=== PATIENT | female | born 1995 | race Caucasian/White ===

== ENCOUNTER → 2020-07-22 16:38 | Outpatient (CLI) | payer MEDICAID, SELFPAY ==
[2020-07-22 17:51] LABS: Absolute Neutrophil Count 6.4 X10^3/uL (2.0-7.7); Basophil# 0.05 X10^3/uL; Basophil% 0.5 % (0-1); Eosinophil# 0.07 X10^3/uL; Eosinophils% 0.8 % (0-5); Hematocrit 40.5 % (37-47); Hemoglobin 13.1 g/dL (12.0-15.0); Lymphocyte % 22.7 % (19-41); Mean Corp Hgb Conc 32.3 g/dL (32-36); Mean Corpuscular Hgb 28.9 pg (27.0-32.0); Mean Corpuscular Volume 89.4 fL (81-99); Mean Platelet Vol. 9.7 fl (6.2-12.0); Monocyte# 0.64 X10^3/uL; Monocyte% 6.9 % (0-10); NRBC Flagged by Analyzer 0 % (0-5); Neutrophil # 6.36 X10^3/uL (2.7-7.7); Neutrophil % 68.8 % (47-70); Platelet Count 240 K/mm3 (150-450); RBC Distribution Width CV 14.2 % (11.6-14.6); RBC Distribution Width SD 45.8 fl (35.1-43.9); Red Blood Count 4.53 M/mm3 (4.2-5.4); White Blood Count 9.3 K/mm3 (4.4-11.0)
[2020-07-23 09:13] LABS: HIV - WCH Non-Reactive (Nonreactive); Hepatitis B Surface Antigen Non-Reactive (Nonreactive); Hepatitis C Antibody Non-Reactive (Nonreactive); Rubella IgG Reactive (Nonreactive)
[2020-07-25 02:39] LABS: Prenatal RPR NONREACTIVE (NONREACTIVE)
[2020-07-25 18:27] LABS: HPV Reflexed? NOT INDICATED
[2020-07-25 20:07] LABS: Chlamydia By Nucleic Acid AMP Negative (Negative)
[2020-07-25 22:44] LABS: Gonococcus By Nucleic Acid AMP Negative (Negative)
== END ==
PROVIDERS: Visit Provider Obstetrics & Gynecology
DX: Z34.81 Encounter for supervision of other normal pregnancy, first trimester (principal)
CPT/HCPCS: 36415; 85025; 86703; 86762; 86803; 87077; 87086; 87088; 87186; 87340; 87491; 87591; 88175; G0145

== ENCOUNTER → 2020-11-11 10:27 | Outpatient (CLI) | payer MEDICAID, SELFPAY ==
[2020-11-11 11:32] LABS: Hematocrit 35.4 % (37-47); Hemoglobin 11.4 g/dL (12.0-15.0); Mean Corp Hgb Conc 32.2 g/dL (32-36); Mean Corpuscular Hgb 29.4 pg (27.0-32.0); Mean Corpuscular Volume 91.2 fL (81-99); Mean Platelet Vol. 10.1 fl (6.2-12.0); Platelet Count 233 K/mm3 (150-450); RBC Distribution Width CV 14.6 % (11.6-14.6); RBC Distribution Width SD 48.1 fl (35.1-43.9); Red Blood Count 3.88 M/mm3 (4.2-5.4); White Blood Count 5.6 K/mm3 (4.4-11.0)
[2020-11-11 11:39] LABS: Glucose Challenge Gest 1H 50g 104 mg/dL (70-140)
== END ==
PROVIDERS: Visit Provider Obstetrics & Gynecology
DX: Z34.82 Encounter for supervision of other normal pregnancy, second trimester (principal)
CPT/HCPCS: 36415; 82950; 85027

== ENCOUNTER → 2020-12-31 09:23 | Outpatient (CLI) | payer MEDICAID, SELFPAY ==
[2020-12-31 09:26] LABS: Red Blood Cells-Urine 0 SEEN /hpf (0-5); White Blood Cells 0 SEEN /hpf (0-5)
[2020-12-31 11:11] LABS: Hematocrit 33.8 % (37-47); Hemoglobin 10.5 g/dL (12.0-15.0); Mean Corp Hgb Conc 31.1 g/dL (32-36); Mean Corpuscular Hgb 26.6 pg (27.0-32.0); Mean Corpuscular Volume 85.8 fL (81-99); Mean Platelet Vol. 11.1 fl (6.2-12.0); Platelet Count 164 K/mm3 (150-450); RBC Distribution Width CV 14.4 % (11.6-14.6); RBC Distribution Width SD 44.8 fl (35.1-43.9); Red Blood Count 3.94 M/mm3 (4.2-5.4); White Blood Count 6.7 K/mm3 (4.4-11.0)
[2020-12-31 11:22] LABS: ALB/GLOB Ratio 0.7 RATIO (0.9-2.4); AST(SGOT) 16 U/L (15-37); Alanine Aminotransfer ALT/SGPT 13 U/L (13-56); Albumin, Serum 2.5 g/dL (3.2-5.0); Alkaline Phosphatase 98 U/L (45-117); Anion Gap 8 (5-15); BUN 7 mg/dL (7-18); BUN/Creat Ratio 14.1 RATIO (10-20); Calcium,Total 8.5 mg/dL (8.5-10.1); Chloride 108 mmol/L (98-107); EST Glomerular Filtration Rate 163 mL/min (>60); Est Glom Filt Rate - Afr Amer 197 mL/min (>60); Globulin 3.8 g/dL (2.2-4.2); Glucose 98 mg/dL (74-106); LDH 181 U/L (84-246); Potassium 3.5 mmol/L (3.5-5.1); Protein, Total 6.3 g/dL (6.4-8.2); Protein, Urine (Random) 12.2 mg/dL (<11.9); Protein:Creat Ratio 134 mg/g CRE (0-200); Sodium Level 140 mmol/L (136-145)
[2020-12-31 11:26] LABS: Color, Urine Yellow (Yellow); Glucose, Dipstick Normal (Normal); Ketone-Dipstick Negative (Negative); Leukocyte Esterase-Dipstick Negative /ul (Negative); Nitrite-Dipstick Negative (Negative); Occult Blood-Urine Negative /ul (Negative); Protein-Dipstick Negative (Negative); Urine Bilirubin Dipstick Negative (Negative); Urine Clarity Clear (Clear); Urine Urobilinogen Normal (Normal)
[2020-12-31 11:31] LABS: Bacteria 1+ /hpf (None Seen); Mucous, Urine RARE /hpf (<or=2+); Squamous Epithelial Cells - UA 0-5 SEEN /hpf (5-10)
== END ==
PROVIDERS: Visit Provider Obstetrics & Gynecology
DX: L29.9 Pruritus, unspecified (principal)
CPT/HCPCS: 36415; 80053; 81001; 82570; 83615; 84156; 85027

== ENCOUNTER → 2021-03-18 13:38 | Outpatient (CLI) | payer MEDICAID, SELFPAY ==
[2021-03-18 18:05] LABS: T4 Free Direct 1.05 ng/dL (0.76-1.46); Thyroid Stim Hormone (TSH) 0.85 uIU/mL (0.358-3.74)
== END ==
PROVIDERS: Visit Provider Obstetrics & Gynecology
DX: R68.82 Decreased libido (principal)
CPT/HCPCS: 84439; 84443

== ENCOUNTER → 2025-01-25 | Outpatient (CLI) | payer BC, SELFPAY ==
--- NOTE | 2025-01-25 09:52 | MRI_ITS ---
PROCEDURE: BREAST BILATERAL W/O AND W 01/25/2025 REASON FOR EXAM: BREAST CANCER Recent diagnosis of 3 left breast cancers at the 1 o'clock, 3 o'clock and 11 o'clock positions. Areolar inversion. Breast firmness. TECHNIQUE: Bilateral breast MRI using a dedicated bilateral breast coil before and following intravenous contrast. Images reviewed with subtraction and DynaCAD. CONTRAST: 15 mL of IV Clariscan COMPARISON: Mammogram dated 01/10/2025 and limited left breast ultrasound dated 01/10/2025 FINDINGS: TISSUE DENSITY: The breast tissue is heterogeneously dense, which may obscure small masses. Background Parenchymal Enhancement: Mild RIGHT Breast: No suspicious mass or non-mass enhancement. LEFT Breast: There are multiple abnormal enhancing masses noted throughout the left breast in different quadrants. There appear to be 9 masses, most of which are somewhat confluent and appear to be contiguous. The largest confluence of masses cover an area measuring approximately 5 cm. Masses do not appear to involve the dermis or chest wall. Other Findings: A 5 mm enhancing mass is seen in the upper-outer quadrant of the left breast far posteriorly, approximately 8 cm from the nipple. This appears to represent an abnormal lymph node. The visualized portions of the thoracic and abdominal viscera are unremarkable. MRI/Breast Bilateral W/O and W IMPRESSION: OVERALL FINAL ASSESSMENT BI-RADS 6: KNOWN BIOPSY-PROVEN MALIGNANCY. RECOMMENDATION: Medical oncology consultation is recommended. Surgical consult ation and radiation oncology consultation is also recommended. Yearly screening mammography of the right breast is recommended. Reading Location: [id number]
== END | disposition home or self-care (01) ==
PROVIDERS: PCP Physician Assistant Medical; Referring Provider Surgery; Visit Provider Surgery
DX: C50.912 Malignant neoplasm of unspecified site of left female breast (principal)
CPT/HCPCS: 77049; A9575; A4216; C8908

== ENCOUNTER → 2025-01-31 | Outpatient (CLI) | payer BC, SELFPAY ==
--- NOTE | 2025-01-31 10:01 | US_ITS ---
PROCEDURE: BREAST LIMITED UNILATERAL 01/31/2025 REASON FOR EXAM: F, Age 29 y/o , LEFT BREAST CANCER, ABN BREAST MRI COMPARISON: MRI 01/25/2025. TECHNIQUE: Targeted left axillary/breast ultrasound was performed. FINDINGS: Follow-up examination performed for the left axillary lymph node visualized on the MRI of 01/25/2025. On the present examination, there are 3 architecturally normal-appearing left axillary lymph nodes with preserved fatty margarita and normal cortical thickness. The largest lymph node measures 1.7 x 1.0 x 0.9 cm with cortical thickness of 0.2 cm. The other lymph nodes measure 1.7 x 0.9 x 0.7 cm with cortical thickness of 0.2 cm and 0.6 x 0.6 x 0.4 cm with cortical thickness of 0.1 cm. US/Breast Limited Unilateral IMPRESSION: Architecturally normal-appearing left axillary lymph nodes. BI-RADS 2: BENIGN. RECOMMENDATION: OTHERSurgical/oncologic management for the biopsy-proven left b reast malignancy. Reading Location: [id number]
--- OUTSIDE RECORDS SUMMARY | 2025-01-31 20:55 | XMS RPT_ITS | CCD ---
Author Organization [facility] Care Team Providers Care Cover Machine Operator Name Role Phone Elton Bauer Unavailable Unavailable Primary Care Provider Unavailras Cleveland MD, [facility] Primary Care Provide r KEYSHAWN YBARRA Attending Unava ilable [facility] Unavail josiah Cleveland MD, [facility] Primary [facility] Unavail able CASSANDRA DAVID Attending Unavailable NATALYA SOSA Admitting Unavailable MARIELA SCHULZ Referring Unavailable KINJAL CLEVELAND Attending Unavail able [facility] Primary Care Unavail able Ryan Cochran PA-C Primary Care Provider RYAN COCHRAN Attending Unavailable ANNAMARIE [place] Primary Care Unavail able RYAN COCHRAN Attending Unavailable ANNAMARIE CLEVELANDO MIKKI Primary Care Unavail able Ryan Pike Primary Care Provider Ryan Pike Referring Provider Dr. Tamiko Figueroa MD Attending Provider Dr. Tamiko Figueroa MD Referring Provider Dr. Ara Franklin MD Attending Provider Dr. Ara Franklin MD Referring Provider RYAN COCHRAN Referring Unavailable RYAN COCHRAN Primary Care Unavailable RYAN COCHRAN Referring Unavailable DIMAS, RYAN B Primary Care Unavailable DIMAS, RYAN B Referring Unavailable DIMAS, RYAN B Primary Care Unavailable DIMAS, RYAN B Referring Unavailable DIMAS, RYAN B Primary Care Unavailable MARIELA SCHULZ Attending Unavailable KINJAL CLEVELAND Primary Care Unavail able Ryan Pike Primary Care Unavailabl e Robotham, Tamiko Referring Unavailable Robotham, Tamiko Attending Unavailable Ryan Pike Primary Care Unavailabl e Isckarus, Mansour Referring Unavailable Isckarus, Mansour Attending Unavailable Dimas HYMAN, Ryan Primary Care Unavailabl e Robotham, Tamiko Referring Unavailable Robotham, Tamiko Attending Unavailable Dimas HYMAN, Ryan Primary Care Unavailabl e Robotham, Tamiko Referring Unavailable Isckarus, Mansour Attending Unavailable Robotham, Tamiko Attending Unavailable Ryan Pike Referring Unavailabl e Dimas PA, Ryan [facility] Care Unavailabl e Allergies Allergy Classification Reported Allergen(s) Allergy Type Date of Onset Reaction(s) Facility (5 sources) belizean elm pollen extract Propensity to adverse reactions to drug 12-23-2016 Itching [facility] (5 sources) red maple pollen extract Propensity to adverse reactions to drug 12-23-2016 Itching [facility] Medications Current Medications Medication Drug Class(es) Dates Sig (Normalized) Sig (Original) acetaminophen 325 mg oral tablet (6 sources) Start: 01-23-2025 take 2 tablets by mouth every four to six hours as needed Acetaminophen (Tylenol) 325 mg tablet Active 650 mg PO EVERY 4-6 HOURS as needed January 23, 2025 12:00am Start: 01-17-2021 take 650 mg by mouth every six hours as needed for pain, then take 4000 mg by mouth every twenty-four hours as needed for pain 650 mg, Oral, EVERY 6 HOURS PRN, Pain Mild (1-3), Starting on Wed01/17/21 at 0524 Maximum dose of acetaminophen is 4000 mg from all sources in 24 hours. Start: 01-16-2021 acetaminophen (TYLENOL) tablet 650 mg End: 01-19-2021 acetaminophen (TYLENOL) 325 MG tablet Take 650 mg by mouth as needed for Pain 0 01/19/2021 Discontinued (Stop Taking at Discharge) 200 actuat albuterol 0.09 mg/actuat dry powder inhaler (2 sources) beta2-Adrenergic Agonist End: 11-15-2024 take 2 puff(s) by inhalation every four hours for wheezing albuterol 90 mcg/actuation aerosol powdr breath activated inhaler Inhale 2 puffs every 4 hours if needed for wheezing. 11/15/2024 Discontinued (Therapy completed) cefuroxime 500 mg oral tablet (1 source) Cephalosporin Antibacterial Start: 10-08-2017 take 1 tablet by mouth twice daily cefUROXime (CEFTIN) 500 MG tablet Take 1 (one) tablet (500 mg total) by mouth 2 (two) times a day. 20 tablet 0 10/08/2017 Active celecoxib 200 mg oral capsule (1 source) Nonsteroidal Anti-inflammatory Drug Start: 05-13-2019 End: 11-15-2024 celecoxib (CeleBREX) 200 mg capsule Take by mouth. 05/13/2019 11/15/2024 Discontinued (Med List Cleanup) 1 ml diphenhydrAMINE hydrochloride 50 mg/ml cartridge (2 sources) Histamine-1 Receptor Antagonist Start: 01-17-2021 25 mg, Intravenous, EVERY 6 HOURS PRN, Itching, Hives, Starting on Wed01/17/21 at 0524, Start: 01-17-2021 diphenhydrAMIN E (BENADRYL) injection 12.5 mg docusate sodium 100 mg oral capsule (1 source) Start: 01-17-2021 take 100 mg by mouth twice daily as needed for constipation 100 mg, Oral, 2 TIMES DAILY PRN, Constipation, Starting on Wed01/17/21 at 0524 Do not crush or break. doxycycline hyclate 100 mg oral tablet (1 source) Tetracycline-cl ass Drug Start: 05-15-2024 End: 11-15-2024 take 1 tablet by mouth every twelve hours doxycycline (Vibra-Tabs) 100 mg tablet Take 1 tablet (100 mg) by mouth every 12 hours. 05/15/2024 11/15/2024 Discontinued (Therapy completed) escitalopram 20 mg oral tablet (5 sources) Serotonin Reuptake Inhibitor Start: 09-10-2021 End: 09-10-2022 take 1 tablet by mouth once daily escitalopram oxalate (LEXAPRO) 20 MG tablet Indications: Post depression Take 1 (one) tablet (20 mg total) by mouth daily . 30 tablet 11 09/10/2021 09/10/2022 Active Start: 07-04-2021 End: 07-04-2022 take 1 tablet by mouth once daily escitalopram oxalate (LEXAPRO) 10 MG tablet Indications: Post depression Take 1 (one) tablet (10 mg total) by mouth daily . 30 tablet 11 07/04/2021 08/26/2021 Discontinued (Patient's Request) famotidine 40 mg oral tablet (1 source) Histamine-2 Receptor Antagonist Start: 12-23-2016 End: 12-23-2017 take 1 tablet by mouth at bedtime famotidine (PEPCID) 40 MG tablet Indications: Gastritis without bleeding, unspecified chronicity, unspecified gastritis type Take 1 tablet (40 mg total) by mouth at bedtime. 30 tablet 11 12/23/2016 12/23/2017 Active ferrous sulfate 325 mg oral tablet (2 sources) Start: 01-17-2021 take 1 tablet by mouth twice daily at mealtime ferrous sulfate (IRON 325) 325 (65 Fe) MG tablet Take 1 tablet by mouth 2 times daily (with meals) 30 tablet 3 01/19/2021 Active fluticasone propionate 0.05 mg/actuat metered dose nasal spray (1 source) Corticosteroid Start: 12-23-2016 End: 12-23-2017 take 2 spray(s) nasal route once daily fluticasone (FLONASE) 50 mcg/actuation nasal spray Indications: Non-seasonal allergic rhinitis, unspecified allergic rhinitis trigger Instill 2 sprays into each nostril daily. 16 g 12 12/23/2016 12/23/2017 Active HYDROmorphone (DILAUDID) injection 0.25 mg (1 source) Start: 01-17-2021 HYDROmorphone (DILAUDID) injection 0.25 mg ibuprofen 600 mg oral tablet (4 sources) Nonsteroidal Anti-inflammatory Drug Start: 01-19-2021 take 1 tablet by mouth every eight hours as needed for pain ibuprofen (ADVIL;MOTRIN) 600 MG tablet Take 1 tablet by mouth every 8 hours as needed for Pain 15 tablet 0 01/19/2021 Active Start: 01-17-2021 take 600 mg by mouth every six hours 600 mg, Oral, EVERY 6 HOURS, First dose on Wed01/17/21 at 0545 Do not crush or chew. End: 11-15-2024 take 2 tablets by mouth every six hours ibuprofen 200 mg tablet Take 2 tablets (400 mg) by mouth every 6 hours. 11/15/2024 Discontinued (Med List Cleanup) lanolin 1000 mg/ml topical cream (1 source) Start: 01-17-2021 Topical, EVERY 1 HOUR PRN, Dry Skin, nipple discomfort, Starting on Wed01/17/21 at 0524, loratadine 10 mg oral tablet (1 source) Start: 12-23-2016 End: 12-23-2017 take 1 tablet by mouth once daily loratadine (CLARITIN) 10 mg tablet Indications: Non-seasonal allergic rhinitis, unspecified allergic rhinitis trigger Take 1 tablet (10 mg total) by mouth daily. 30 tablet 11 12/23/2016 12/23/2017 Active norethindrone 0.35 mg oral tablet (11 sources) Progestin Start: 06-09-2019 End: 11-15-2024 take 1 tablet by mouth once daily norethindrone (MICRONOR) 0.35 mg tablet Take 1 tablet by mouth daily . 0 06/08/2021 Active 2 ml ondansetron 2 mg/ml injection (5 sources) Serotonin-3 Receptor Antagonist Start: 01-17-2021 4 mg, Intravenous, EVERY 6 HOURS PRN, Nausea, Starting on Wed01/17/21 at 0524, Start: 10-27-2020 End: 07-04-2021 take 4 mg by mouth every eight hours as needed for nausea ondansetron (ZOFRAN) 8 MG tablet Take 0.5 (one-half) tablet (4 mg total) by mouth every 8 (eight) hours as needed for nausea . 20 tablet 0 10/27/2020 07/04/2021 Discontinued (Therapy completed) Start: 10-27-2020 End: 10-27-2020 ondansetron (ZOFRAN) injecti on 4 mg ondansetron (ZOFRAN-ODT) disintegrating tablet 4 mg (1 source) Start: 01-16-2021 ondansetron (ZOFRAN-ODT) disintegrating tablet 4 mg oxyCODONE (1 source) Opioid Agonist Start: 01-17-2021 oxyCODONE (ROXICODONE) immediate release tablet 5 mg oxymetazoline hydrochloride 0.5 mg/ml nasal spray (1 source) End: 11-15-2024 oxymetazoline 0.05 % nasal spray Administer into affected nostril(s) twice a day. 11/15/2024 Discontinued (Med List Cleanup) MV-Min-Fe Fum-FA-DHA ( 1 PO) (1 source) MV-Min- Fe Fum-FA-DHA ( 1 PO) Take by mouth 0 Active vitamin 27-1 MG tablet 1 tablet (1 source) Start: 01-17-2021 take 1 tablet by mouth once daily 1 tablet, Oral, DAILY, First dose on Wed01/17/21 at 0900 Begin when normal bowel activity resumes. sertraline 50 mg oral tablet (7 sources) Serotonin Reuptake Inhibitor Start: 01-30-2025 take 1 tablet by mouth once daily sertraline (Zoloft) 50 mg tablet Indications: Depression, major, recurrent, mild Take 1 tablet (50 mg) by mouth once daily. 30 tablet 5 01/30/2025 Active Start: 08-26-2021 End: 08-26-2022 take 1 tablet by mouth once daily sertraline (Zoloft) 100 MG tablet Indications: Post depression Take 1 (one) tablet (100 mg total) by mouth daily . 30 tablet 08/26/2021 09/10/2021 Discontinued (Side effects) End: 08-26-2021 sertraline HCl (ZOLOFT ORAL) Take by mouth . 0 08/26/2021 Discontinued (Reorder) sertraline HCl ( ZOLOFT ORAL) Take by mouth . 0 Active End: 07-04-2021 take 1 tablet by mouth once daily sertraline (ZOLOFT) 100 MG tablet Take 100 mg by mouth daily . 0 07/04/2021 Discontinued (Side effects) simethicone 80 mg chewable tablet (1 source) Start: 01-17-2021 take 80 mg by mouth every six hours as needed 80 mg, Oral, EVERY 6 HOURS PRN, Cramping, Flatulence, Starting on Wed01/17/21 at 0524, Completed/Discontinued Medications Medication Drug Class(es) Dates Sig (Normalized) Sig (Original) azithromycin 500 mg in dextrose 5% 250 mL IV (1 source) Start: 05-22-2024 End: 10-14-2024 500 mg, intravenous, at 250 mL/hr, Administer over 60 Minutes, Once, On Wed05/22/24 at 2245, For 1 dose, Suspected Indication (Select all that apply): Pneumonia, Type of Therapy: Empiric, Indications: Pneumonia betamethasone 3 mg/ml / betamethasone acetate 3 mg/ml injectable suspension (1 source) Corticosteroid Start: 01-16-2021 End: 01-18-2021 inject 12 mg by intramuscular injection every twenty-four hours 12 mg, Intramuscular, EVERY 24 HOURS, First dose on Chanda 01/16/21 at 2215, For 2 doses Per protocol calcium carbonate 500 mg chewable tablet (1 source) End: 01-19-2021 calcium carbonate (TUMS) 500 MG chewable tablet Take 1 tablet by mouth as needed for Heartburn 0 01/19/2021 Discontinued (Stop Taking at Discharge) calcium chloride 0.0014 meq/ml / potassium chloride 0.004 meq/ml / sodium chloride 0.103 meq/ml / sodium lactate 0.028 meq/ml injectable solution (1 source) Start: 01-16-2021 End: 01-17-2021 Intravenous, at 125 mL/hr, CONTINUOUS, Starting on Chanda 01/16/21 at 2215 ceFAZolin 2000 mg injection (1 source) Cephalosporin Antibacterial Start: 01-17-2021 End: 01-18-2021 ceFAZolin (ANCEF) 2000 mg in dextrose 4 % 100 mL IVPB (premix) cefTRIAXone 1000 mg injection (1 source) Cephalosporin Antibacterial Start: 05-22-2024 End: 05-22-2024 1 g, intravenous, at 100 mL/hr, Administer over 30 Minutes, Once, On Wed05/22/24 at 2245, For 1 dose, premix bag, Suspected Indication (Select all that apply): Pneumonia, Type of Therapy: Empiric, Indications: Pneumonia 1 ml HYDROmorphone hydrochloride 1 mg/ml cartridge (1 source) Opioid Agonist Start: 01-17-2021 End: 01-17-2021 HYDROmorphone (DILAUDID) 1 MG/ML injection hydrOXYzine hydrochloride 50 mg oral tablet (2 sources) Antihistamine Start: 01-04-2019 End: 01-04-2019 hydrOXYzine (ATARAX) tablet 100 mg Start: 01-04-2019 End: 01-04-2019 hydrOXYzine (ATARAX) 50 MG t ablet - ADS Override Pull iohexol (OMNIPaque) 350 mg iodine/mL solution 68 mL (1 source) Start: 05-23-2024 End: 05-23-2024 68 mL, intravenous, Once in imaging, Starting on Wed05/23/24 at 0130, For 1 dose 1 ml ketorolac tromethamine 30 mg/ml cartridge (2 sources) Nonsteroidal Anti-inflammatory Drug, Cyclooxygenase Inhibitor Start: 01-17-2021 End: 01-18-2021 30 mg, Intravenous, EVERY 6 HOURS, First dose on Wed01/17/21 at 0545, For 1 day Do not administer for more than 5 days. Firs t dose should be administered 6 hours after anesthesia's administered dose in OR or PACU. Do NOT give with ibuprofen. Start: 01-17-2021 End: 01-17-2021 60 mg, Intramuscular, ONCE, On Wed01/17/21 at 0245, For 1 dose Do not administer for more than 5 days. 10 ml lidocaine hydrochloride 10 mg/ml injection (4 sources) Antiarrhythmic, Amide Local Anesthetic Start: 01-12-2025 End: 01-12-2025 infiltration, Once PRN Procedure, Starting on Wed01/12/25 at 1115, For 1 dose, Intraprocedure Start: 01-12-2025 End: 01-12-2025 infiltration, Once PRN Proce dure, Starting on Wed01/12/25 at 1101, For 1 dose, Intraprocedure naproxen 375 mg delayed release oral tablet (4 sources) Nonsteroidal Anti-inflammatory Drug Start: 12-23-2016 End: 09-27-2019 take 1 tablet by mouth twice daily at mealtime naproxen (EC NAPROSYN) 375 MG [facility] Indications: Cervical myofascial pain syndrome Take 1 tablet (375 mg total) by mouth 2 (two) times a day with meals. 60 each 0 12/23/2016 09/27/2019 Discontinued (Discontinued by another clinician) oxytocin (PITOCIN) 30 units in 500 mL infusion (2 sources) Start: 01-17-2021 End: 01-17-2021 oxytocin (PITOCIN) 30 units in 500 mL infusion oxytocin (PITOCIN) 30 units in 500 mL infusion Override Pull (1 source) Start: 01-17-2021 End: 01-17-2021 oxytocin (PITOCIN) 30 units in 500 mL infusion Override Pull microencapsulated potassium chloride 20 meq extended release oral tablet (1 source) Start: 05-22-2024 End: 05-22-2024 20 mEq, oral, Once, On Wed05/22/24 at 2325, For 1 dose, Best given with food and a glass of water to minimize gastric irritation. Do not crush or chew. vitamin with Ca-Iron-FA 27-1 mg Tab (2 sources) End: 09-27-2019 take 1 tablet by mouth once daily vitamin with Ca-Iron-FA 27-1 mg Tab Take 1 tablet by mouth daily . 0 09/27/2019 Discontinued (Discontinued by another clinician) take 1 tablet by mouth once ish y vitamin with Ca-Iron-FA 27-1 mg Tab Take 1 tablet by mouth daily . 0 Active 1000 ml sodium chloride 9 mg/ml injection (9 sources) Start: 05-22-2024 End: 05-23-2024 1,000 mL, intravenous, at 99 9 mL/hr, Administer over 1 Hours, Once, On Wed05/22/24 at 2335, For 1 dose Start: 01-16-2021 10 mL, Intrave nous, EVERY 12 HOURS SCHEDULED (2 times per day), First dose on Wed01/17/21 at 0900, Start: 01-16-2021 take 25 mL intraveno usly every hour as needed 25 mL, Intravenous, at 100 mL/hr, PRN, If patient receiving piggyback infusions without ordered maintenance IV fluids or with frequent/long duration piggyback infusions, Starting on Wed01/17/21 at 0524 Administer at the same rate as the piggyback being infused. Start: 01-16-2021 take 10 mL intravenously once 10 mL, Intravenous, PRN, Line Care, Starting on Wed01/17/21 at 0524 After every IV line use Start: 10-27-2020 End: 10-27-2020 sodium chloride 0.9% (NS) bernardo cecy 1,000 mL 1 ml triamcinolone acetonide 40 mg/ml injection (3 sources) Corticosteroid Start: 07-21-2021 End: 07-21-2021 triamcinolone acetonide (KENALOG-40) injection 40 mg Start: 02-08-2018 End: 02-08-2019 triamcinolone (KENALOG) 0.1 % cream Apply topically 2 (two) times a day As needed in thin layer to affected areas. Do not use on face. 80 g 0 02/08/2018 02/08/2019 Active Problems Active Problems Problem Classification Problem Date Documented Da te Episodic/Chronic Administrative/social admission (11 sources) Patient encounter status; Translations: [Dietary counseling and surveillance] Onset: 11-15-2024 11-15-2024 Episodic Cancer of breast (20 sources) Malignant neoplasm of unspecified site of left female breast; Translations: [Infiltrating ductal carcinoma of left breast] Onset: 01-23-2025 01-23-2025 Chronic Comment on above: Left breast 3 biopsi ed, 4 lesions total Deficiency and other anemia (4 sources) Anemia; Translations: [Anemia, unspecified] 01-29-2025 Episodic Deficiency and other anemia (1 source) Anemia, unspecified; Translations: [Anemia, unspecified] Onset: 01-29-2025 Episodic Diabetes mellitus without complication (10 sources) Impaired glucose tolerance; Translations: [Impaired glucose tolerance (oral)] Onset: 11-15-2024 11-15-2024 Episodic External cause codes: Natural/environment (4 sources) Bitten or stung by nonvenomous insect and other nonvenomous arthropods, initial encounter; Translations: [Bedbug bite] Onset: 02-08-2018 02-08-2018 Fluid and electrolyte disorders (3 sources) Dehydration; Translations: [Hypokalemia] Onset: 05-14-2024 Episodic Headache; including migraine (8 sources) Intractable menstrual status migrainosus; Translations: [Menstrual migraine, intractable, with status migrainosus] Onset: 11-15-2024 11-15-2024 Chronic Intestinal infection (1 source) Food poisoning; Translations: [Food poisoning] Episodic Lymphadenitis (5 sources) Axillary lymphadenopathy; Translations: [Localized enlarged lymph nodes] Onset: 01-29-2025 01-29-2025 Episodic Malaise and fatigue (3 sources) Fatigue; Translations: [Other fatigue] 01-23-2025 Episodic Mood disorders (2 sources) Recurrent major depressive episodes, mild ; Translations: [Major depressive disorder, recurrent, mild] Onset: 01-30-2025 01-30-2025 Chronic Nonmalignant breast conditions (1 source) Fibrocystic change of left breast; Translations: [Diffuse cystic mastopathy of left breast] 01-04-2025 Chronic Nonmalignant breast conditions (16 sources) Lump in upper outer quadrant of left breast; Translations: [Unspecified lump in the left breast, upper outer quadrant] Onset: 01-04-2025 01-04-2025 Episodic Other complications of (4 sources) depression; Translations: [Other mental disorders complicating the puerperium] Episodic Other congenital anomalies (2 sources) Umbilicus finding; Translations: [Congenital malformation, unspecified] Onset: 01-16-2021 Resolved: 01-19-2021 Chronic Other connective tissue disease (1 source) Disorder of shoulder; Translations: [Bursitis of unspecified shoulder] Episodic Other connective tissue disease (1 source) Pain of bilateral upper limbs; Translations: [Pain in both upper extremities] Other gastrointestinal disorders (2 sources) Functional diarrhea; Translations: [Functional diarrhea] Episodic Other non-traumatic joint disorders (1 source) Instability of left shoulder joint; Translations: [Other instability, left shoulder] Episodic Other nutritional; endocrine; and metabolic disorders (10 sources) Obesity caused by energy imbalance; Translations: [Class 1 obesity due to excess calories without serious comorbidity with body mass index (BMI) of 30.0 to 30.9 in adult] Onset: 11-15-2024 11-15-2024 Chronic Other nutritional; endocrine; and metabolic disorders (2 sources) Other obesity due to excess calories; Translations: [Other obesity due to excess calories] Onset: 11-15-2024 Chronic Other nutritional; endocrine; and metabolic disorders (2 sources) Body mass index (BMI) 30.0-30.9, adult; Translations: [Body mass index (BMI) 30.0-30.9, adult] Onset: 11-15-2024 Chronic Other and delivery including normal (1 source) ; Translations: [, unspecified gestational age] Episodic Other screening for suspected conditions (not mental disorders or infectious disease) (7 sources) Mammography abnormal; Translations: [Other abnormal and inconclusive findings on diagnostic imaging of breast] Onset: 01-12-2025 01-12-2025 Episodic Other upper respiratory disease (10 sources) Allergic rhinitis; Translations: [Allergic rhinitis, unspecified] Onset: 12-23-2016 12-23-2016 Chronic Unclassified (1 source) Obesity, class 1; Translations: [Obesity, class 1] Onset: 11-15-2024 Unclassified (18 sources) Infiltrating ductal carcinoma of breast; Translations: [C50.919 - Malignant neoplasm of unspecified site of unspecified female breast] Unclassified (1 source) 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; Translations: [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] Onset: 01-29-2025 Unclassified (1 source) 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; Translations: [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] Onset: 01-23-2025 Past or Other Problems Problem Classification Problem Date Documented Da te Episodic/Chronic E Codes: Natural/environment (5 sources) Bitten or stung by nonvenomous insect and other nonvenomous arthropods, initial encounter; Translations: [Insect bite, nonvenomous, of other, multiple, and unspecified sites, without mention of infection] Onset: 02-08-2018 02-08-2018 Episodic Gastritis and duodenitis (10 sources) Gastritis; Translations: [Gastritis, unspecified, without bleeding] Onset: 12-23-2016 12-23-2016 Episodic Other connective tissue disease (3 sources) Myofascial pain; Translations: [Cervical myofascial pain syndrome] Onset: 12-23-2016 12-23-2016 Episodic Otitis media and related conditions (10 sources) Otitis media; Translations: [Otitis media, unspecified, unspecified ear] Onset: 10-08-2017 10-08-2017 Episodic Pneumonia (except that caused by tuberculosis or sexually transmitted disease) (7 sources) Pneumonia, unspecified organism; Translations: [Pneumonia] Onset: 05-14-2024 Episodic Spondylosis; intervertebral disc disorders; other back problems (7 sources) Cervical trigger point syndrome; Translations: [Myalgia, other site] Onset: 12-23-2016 12-23-2016 Episodic Unclassified (1 source) 06/28/2024 HM PAP SMEAR Onset: 07-03-2024 Unclassified (7 sources) Onset: 11-15-2024 Resolved: 01-30-2025 11-15-2024 Unclassified (1 source) Obesity, class 1; Translations: [Obesity, class 1] Onset: 11-15-2024 Results Test Name Value Interpretation Reference Range Facility Absolute lymphocyte countOrd ered By: Ara Franklin on 01-29-2025 Lymphocytes Auto (Unsp spec) [#/Vol] 2.30 10*3/uL 0.83-4.51 [facility] Absolute neutrophil countOrd ered By: Ara Franklin on 01-29-2025 Neutrophils (Bld) [#/Vol] 3.6 10*3/uL 2.0-7.7 [facility] Anion gap in Serum or Plasma [facility] on 01-29-2025 Anion gap [Moles/Vol] 12 mmol/L 5-15 [facility] Automated lymphocyte count a s percentage of total leukocytesOrdered By: [facility] Rigoberto on 01-29-2025 Lymphocytes/100 WBC Auto (Unsp spec) 33.7 % 19-41 [facility] BUN/creatinine ratioOrdered By: [facility] on 01-29-2025 Urea nitrogen/Creatinine [Mass ratio] 25.6 mg/mg High 10-20 [facility] Basophil percentageOrdered B y: Ara Franklin on 01-29-2025 Basophils/100 WBC (Bld) 0.9 % 0-1 [facility] Bilirubin, totalOrdered By: [facility] Rigoberto on 01-29-2025 Bilirubin [Mass/Vol] 0.36 mg/dL 0.00-1.30 [facility] CBC W/Diff, Automatedon 01-08 Absolute Lymph 2.30 X10 3/uL Normal 0.83-4.51 [facility] Comment on above: Performed By: #### L 503.0106, L500.4050, L503.6550, L100.0100, L100.9950, L503.6030 #### [facility] [address] [place], [address] Absolute Neut 3.6 X10 3/uL Normal 2.0-7.7 [facility] Comment on above: Performed By: #### L 503.0106, [id number], L503.6550, L100.0100, L100.9950, L503.6030 #### [facility] [address] [place], [address] Basophils/100 WBC (Bld) 0.9 % Normal 0-1 [facility] Comment on above: Performed By: #### L 503.0106, L500.4050, L503.6550, L100.0100, L100.9950, L503.6030 #### [facility] [address] [place], [address] Eosinophils/100 WBC (Bld) 4.7 % Normal 0-5 [facility] Comment on above: Performed By: #### L 503.0106, L500.4050, L503.6550, L100.0100, L100.9950, L503.6030 #### [facility] [address] [place], [address] Erythrocyte distribution width (RBC) [Ratio] 12.9 % Normal 11.6-14.6 [facility] Comment on above: Performed By: #### L 503.0106, L500.4050, L503.6550, L100.0100, L100.9950, L503.6030 #### [facility] [address] [place], [address] Hematocrit (Bld) [Volume fraction] 39.7 % Normal 37-47 [facility] Comment on above: Performed By: #### L 503.0106, L500.4050, L503.6550, L100.0100, L100.9950, L503.6030 #### [facility] [address] [place], [address] Hemoglobin (Bld) [Mass/Vol] 13.2 g/dL Normal 12.0-15.0 [facility] Comment on above: Performed By: #### L 503.0106, L500.4050, L503.6550, L100.0100, L100.9950, L503.6030 #### [facility] [address] [place], [address] IG% 0.300 Normal 0.0-0.9 [facility] Comment on above: Result Comment: IG% - Immature Granulocytes (promyelocytes, myelocytes and metamyelocytes) > 1% indicates that a LEFT SHIFT is Present. Performed By: #### L 503.0106, L500.4050, L503.6550, L100.0100, L100.9950, L503.6030 #### [facility] [address] [place], [address] Lymphocytes/100 WBC (Bld) 33.7 % Normal 19-41 [facility] Comment on above: Performed By: #### L 503.0106, L500.4050, L503.6550, L100.0100, L100.9950, L503.6030 #### [facility] [address] [place], [address] MCH (RBC) [Entitic mass] 29.7 pg Normal 27.0-32.0 [facility] Comment on above: Performed By: #### L 503.0106, L500.4050, L503.6550, L100.0100, L100.9950, L503.6030 #### [facility] [address] [place], [address] MCHC (RBC) [Mass/Vol] 33.2 g/dL Normal 32-36 [facility] Comment on above: Performed By: #### L 503.0106, L500.4050, L503.6550, L100.0100, L100.9950, L503.6030 #### [facility] [address] [place], [address] MCV (RBC) [Entitic vol] 89.2 fL Normal 81-99 [facility] Comment on above: Performed By: #### L 503.0106, L500.4050, L503.6550, L100.0100, L100.9950, L503.6030 #### [facility] [address] [place], [address] Monocytes/100 WBC (Bld) 7.8 % Normal 0-10 [facility] Comment on above: Performed By: #### L 503.0106, L500.4050, L503.6550, L100.0100, L100.9950, L503.6030 #### [facility] [address] [place], [address] Neutrophils/100 WBC (Bld) 52.6 % Normal 47-70 [facility] Comment on above: Performed By: #### L 503.0106, L500.4050, L503.6550, L100.0100, L100.9950, L503.6030 #### [facility] [address] [place], [address] Nucleated RBC (Bld) [#/Vol] 0 10*3/uL Normal 0-5 [facility] Comment on above: Performed By: #### L 503.0106, L500.4050, L503.6550, L100.0100, L100.9950, L503.6030 #### [facility] [address] [place], [address] Platelet mean volume (Bld) [Entitic vol] 9.1 fL Normal 6.2-12.0 [facility] Comment on above: Performed By: #### L 503.0106, L500.4050, L503.6550, L100.0100, L100.9950, L503.6030 #### [facility] [address] [place], [address] Platelets (Bld) [#/Vol] 264 10*3/uL Normal 150-450 [facility] Comment on above: Performed By: #### L 503.0106, L500.4050, L503.6550, L100.0100, L100.9950, L503.6030 #### [facility] [address] [place], [address] RBC (Bld) [#/Vol] 4.45 10*6/uL Normal 4.2-5.4 [facility] Comment on above: Performed By: #### L 503.0106, L500.4050, L503.6550, L100.0100, L100.9950, L503.6030 #### [facility] [address] [place], [address] RDW SD 42.3 fl Normal 35.1-43.9 [facility] Comment on above: Performed By: #### L 503.0106, L500.4050, L503.6550, L100.0100, L100.9950, L503.6030 #### [facility] [address] [place], [address] WBC (Bld) [#/Vol] 6.8 10*3/uL Normal 4.4-11.0 [facility] Comment on above: Performed By: #### L 503.0106, L500.4050, L503.6550, L100.0100, L100.9950, L503.6030 #### [facility] [address] [place], [address] Carbon dioxide, total [Moles /volume] in Central venous bloodOrdered By: Ara Franklin on 01-29-2025 CO2 [Moles/Vol] 24.0 mmol/L 21.0-32.0 [facility] Chloride assayOrdered By: Huong Franklin on 01-29-2025 Chloride [Moles/Vol] 103 mmol/L 98-108 [facility] Comprehensive Metabolic Prof ilon 01-29-2025 Albumin [Mass/Vol] 4.3 g/dL Normal 3.5-5.0 [facility] Comment on above: Performed By: #### L 503.0106, L500.4050, L503.6550, L100.0100, L100.9950, L503.6030 #### [facility] [address] [place], [address] Albumin/Globulin [Mass ratio] 1.5 {ratio} Normal 0.9-2.4 [facility] Comment on above: Performed By: #### L 503.0106, L500.4050, L503.6550, L100.0100, L100.9950, L503.6030 #### [facility] [address] [place], [address] ALK PHOS 68 U/L Normal 35-104 [facility] Comment on above: Performed By: #### L 503.0106, L500.4050, L503.6550, L100.0100, L100.9950, L503.6030 #### [facility] [address] [place], [address] ALT [Catalytic activity/Vol] 24 U/L Normal <=34 [facility] Comment on above: Performed By: #### L 503.0106, L500.4050, L503.6550, L100.0100, L100.9950, L503.6030 #### [facility] [address] [place], [address] AST [Catalytic activity/Vol] 19 U/L Normal <=31 [facility] Comment on above: Performed By: #### L 503.0106, L500.4050, L503.6550, L100.0100, L100.9950, L503.6030 #### [facility] [address] [place], [address] Bilirubin [Mass/Vol] 0.36 mg/dL Normal 0.00-1.30 [facility] Comment on above: Performed By: #### L 503.0106, L500.4050, L503.6550, L100.0100, L100.9950, L503.6030 #### [facility] [address] [place], [address] BUN/CRE 25.6 RATIO High 10-20 [facility] Comment on above: Performed By: #### L 503.0106, L500.4050, L503.6550, L100.0100, L100.9950, L503.6030 #### [facility] [address] [place], [address] Calcium [Mass/Vol] 9.3 mg/dL Normal 7.6-11.0 [facility] Comment on above: Performed By: #### L 503.0106, L500.4050, L503.6550, L100.0100, L100.9950, L503.6030 #### [facility] [address] [place], [address] Chloride [Moles/Vol] 103 mmol/L Normal 98-108 [facility] Comment on above: Performed By: #### L 503.0106, L500.4050, L503.6550, L100.0100, L100.9950, L503.6030 #### [facility] [address] [place], [address] CO2 [Moles/Vol] 24.0 mmol/L Normal 21.0-32.0 [facility] Comment on above: Performed By: #### L 503.0106, L500.4050, L503.6550, L100.0100, L100.9950, L503.6030 #### [facility] [address] [place], [address] Creatinine [Mass/Vol] 0.61 mg/dL Low 0.70-1.20 [facility] Comment on above: Performed By: #### L 503.0106, L500.4050, L503.6550, L100.0100, L100.9950, L503.6030 #### [facility] [address] [place], [address] GAP 12 Normal 5-15 [facility] Comment on above: Performed By: #### L 503.0106, L500.4050, L503.6550, L100.0100, L100.9950, L503.6030 #### [facility] [address] [place], [address] GFR/1.73 sq M.predicted among non-blacks MDRD (S/P/Bld) [Vol rate/Area] 125 mL/min/{1.73_m2} Normal >60 [facility] Comment on above: Result Comment: mL/m in/1.73m2 CKD-EPI Creatinine Equation (2020) Performed By: #### L 503.0106, L500.4050, L503.6550, L100.0100, L100.9950, L503.6030 #### [facility] [address] [place], [address] Globulin (S) [Mass/Vol] 2.9 g/dL Normal 2.2-4.2 [facility] Comment on above: Performed By: #### L 503.0106, L500.4050, L503.6550, L100.0100, L100.9950, L503.6030 #### [facility] [address] [place], [address] Glucose [Mass/Vol] 92 mg/dL Normal 70-99 [facility] Comment on above: Performed By: #### L 503.0106, L500.4050, L503.6550, L100.0100, L100.9950, L503.6030 #### [facility] [address] [place], [address] Potassium [Moles/Vol] 3.8 mmol/L Normal 3.3-5.1 [facility] Comment on above: Performed By: #### L 503.0106, L500.4050, L503.6550, L100.0100, L100.9950, L503.6030 #### [facility] [address] [place], [address] Sodium [Moles/Vol] 139 mmol/L Normal 133-145 [facility] Comment on above: Performed By: #### L 503.0106, L500.4050, L503.6550, L100.0100, L100.9950, L503.6030 #### [facility] [address] [place], [address] T PROT 7.2 g/dL Normal 5.9-8.4 [facility] Comment on above: Performed By: #### L 503.0106, L500.4050, L503.6550, L100.0100, L100.9950, L503.6030 #### [facility] [address] [place], [address] Urea nitrogen [Mass/Vol] 16 mg/dL Normal 4-19 [facility] Comment on above: Performed By: #### L 503.0106, L500.4050, L503.6550, L100.0100, L100.9950, L503.6030 #### [facility] [address] [place], [address] Eosinophil percentageOrdered By: Ara Franklin on 01-29-2025 Eosinophils/100 WBC (Bld) 4.7 % 0-5 [facility] Erythrocyte distribution wid th ratioOrdered By: Ara Franklin on 01-29-2025 Erythrocyte distribution width (RBC) [Ratio] 12.9 % 11.6-14.6 [facility] Erythrocyte distribution wid th standard deviationOrdered By: Ara Franklin on 01-29-2025 Erythrocyte distribution width (RBC) [Ratio] 42.3 fl 35.1-43.9 [facility] Ferritinon 01-29-2025 Ferritin [Mass/Vol] 62 ng/mL Normal 22-378 [facility] Comment on above: Performed By: #### L 503.0106, L500.4050, L503.6550, L100.0100, L100.9950, L503.6030 #### [facility] [address] [place], [address] Glomerular filtration rate ( GFR) estimation/1.73 sq m using serum, plasma, or whole bOrdered By: Ara Franklin on 01-29-2025 GFR/1.73 sq M.predicted among non-blacks MDRD (S/P/Bld) [Vol rate/Area] 125 mL/min/{1.73_m2} >60 [facility] Comment on above: mL/min/1.73m2 CKD-EP I Creatinine Equation (2020) Hematocrit Auto (Bld) [Volum e fraction]Ordered By: [facility] on 01-29-2025 Hematocrit (Bld) [Volume fraction] 39.7 % 37-47 [facility] Hemoglobin measurementOrdere d By: Ara Franklin on 01-29-2025 Hemoglobin (Bld) [Mass/Vol] 13.2 g/dL 12.0-15.0 [facility] Immature granulocytes/100 WB C Auto (Bld)Ordered By: Ara Franklin on 01-29-2025 Immature granulocytes/100 WBC (Bld) 0.300 % 0.0-0.9 [facility] Comment on above: IG% - Immature Granu locytes (promyelocytes, myelocytes and metamyelocytes) > 1% indicates that a LEFT SHIFT is Present. Iron measurement (mass/mass) Ordered By: Ara Franklin on 01-29-2025 Iron (Unsp spec) [Mass/Mass] 92 ug/dL 50-170 [facility] Iron+Iron Binding Capacityon 01-29-2025 Iron [Mass/Vol] 92 ug/dL Normal 50-170 [facility] Comment on above: Performed By: #### L 503.0106, L500.4050, L503.6550, L100.0100, L100.9950, L503.6030 #### [facility] [address] [place], [address] IRON SATURATION 33.0 Normal 13-59 [facility] Comment on above: Performed By: #### L 503.0106, L500.4050, L503.6550, L100.0100, L100.9950, L503.6030 #### [facility] [address] [place], [address] TIBC 279 ug/dL Normal 250-450 [facility] Comment on above: Performed By: #### L 503.0106, L500.4050, L503.6550, L100.0100, L100.9950, L503.6030 #### [facility] [address] [place], [address] UIBC 187 ug/dL Low 228-428 [facility] Comment on above: Performed By: #### L 503.0106, L500.4050, L503.6550, L100.0100, L100.9950, L503.6030 #### [facility] [address] [place], [address] Laboratory - Chemistry and C hemistry - challengeOrdered By: Ara Franklin on 01-29-2025 AST [Catalytic activity/Vol] 19 U/L <32 [facility] MCV (mean corpuscular volume ) determinationOrdered By: Ara Franklin on 01-29-2025 MCV (RBC) [Entitic vol] 89.2 fL 81-99 [facility] Magnetic resonance imaging r eportOrdered By: Kristen Del Cid on 01-29-2025 Study report [facility] Imaging Services [address] [place], [place] [id number] ([id number]) Breast Bilateral W/O and W MR#: [id number] Acct: [id number] Name: SHAUNA RAINEY Rep #: [id number] : 1995 F 29 From: Leodan Del Cid DO PCP: YENNI Hartman Status: REG CLI Study:Breast Bilateral W/O and W Date of Exam : 01/25/25 Exam# [id number] Ordering Dr: Tamiko Figueroa MD PROCEDURE: BREAST BILATERAL W/O AND W 01/25/2025 REASON FOR EXAM: BREAST CANCER Recent diagnosis of 3 left breast cancers at the 1 o'clock, 3 o'clock and 11 o'clock positions. Areolar inversion. Breast firmness. TECHNIQUE: Bilateral breast MRI using a dedicated bilateral breast coil before and following intravenous contrast. Images reviewed with subtraction and DynaCAD. CONTRAST: 15 mL of IV Clariscan COMPARISON: Mammogram dated 01/10/2025 and limited left breast ultrasound dated 01/10/2025 FINDINGS: TISSUE DENSITY: The breast tissue is heterogeneously dense, which may obscure small masses. Background Parenchymal Enhancement: Mild RIGHT Breast: No suspicious mass or non-mass enhancement. LEFT Breast: There are multiple abnormal enhancing masses noted throughout the left breast in different quadrants. There appear to be 9 masses, most of which are somewhat confluent and appear to be contiguous. The largest confluence of masses cover an area measuring approximately 5 cm. Masses do not appear to involve the dermis or chest wall. Other Findings: A 5 mm enhancing mass is seen in the upper-outer quadrant of theleft breast far posteriorly, approximately 8 cm from the nipple. This appears to represent an abnormal lymph node. The visualized portions of the thoracic and abdominal viscera are unremarkable. MRI/Breast Bilateral W/O and W IMPRESSION: OVERALL FINAL ASSESSMENT BI-RADS 6: KNOWN BIOPSY-PROVEN MALIGNANCY. RECOMMENDATION: Medical oncology consultation is recommended. Surgical consultation and radiation oncology consultation is also recommended. Yearly screening mammography of the right breast is recommended. Reading Location: [id number] CC: Dr. Tamiko Figueroa MD; YENNI Hartman ~ Transportation Maintenance Specialist: Signed [facility] Mean corpuscular hemoglobin (MCH) determinationOrdered By: Ara Franklin on 01-29-2025 MCH (RBC) [Entitic mass] 29.7 pg 27.0-32.0 [facility] Mean corpuscular hemoglobin concentration (MCHC) determinationOrdered By: Ara Franklin on 01-29-2025 MCHC (RBC) [Mass/Vol] 33.2 g/dL 32-36 [facility] Mean platelet volume determi nationOrdered By: Ara Franklin on 01-29-2025 Platelet mean volume (Bld) [Entitic vol] 9.1 fL 6.2-12.0 [facility] Monocyte percentageOrdered B y: Ara Franklin on 01-29-2025 Monocytes/100 WBC (Bld) 7.8 % 0-10 [facility] Neutrophil percentageOrdered By: Ara Franklin on 01-29-2025 Neutrophils/100 WBC (Bld) 52.6 % 47-70 [facility] No Panel InformationOrdered By: Ara Franklin on 01-29-2025 Unsaturated Iron Binding Capacity 187 ug/dL Low 228-428 [facility] Nucleated red blood cell per centageOrdered By: Ara Franklin on 01-29-2025 Nucleated RBC/100 WBC (Bld) [Ratio] 0 % 0-5 [facility] Oncology Visit Reporton 01-08 Oncology Visit Report [facility] [address] [place] [id number] OFFICE VISIT Date of Service: 01/29/25 1515 MR#: [id number] Acct: [id number] Name: BRIGIDSHAUNA KIDD Rep #: [id number] : 1995 From: Ara Franklin MD Age/Sex: 29/F Location: [facility] Status: Signed HPI Subjective Date of Service 01/29/25 Chief Complaint breast cancer History of Present Illness 29-year-old female premenopausal at diagnosis who noted nipple inversion than diffuse hardness and distorted meant of the left breast for about 1 year before she sought medical care. There is no family history of breast cancer. January 10, 2025 diagnostic mammogram and ultrasound examination of the left breast showing multiple masses highly suggestive of malignancy BI-RADS 5. Screening evaluation of the left axilla did not show enlarged or abnormal appearing lymph nodes. 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 The cancer is ER negative, SC negative and HER2/camila overexpressed 3+. January 25, 2025 breast MRI: FINDINGS: TISSUE DENSITY: The breast tissue is heterogeneously dense, which may obscure small masses. Background Parenchymal Enhancement: Mild RIGHT Breast: No suspicious mass or non-mass enhancement. LEFT Breast: There are multiple abnormal enhancing masses noted throughout the left breast in different quadrants. There appear to be 9 masses, most of which are somewhat confluent and appear to be contiguous. The largest confluence of masses cover an area measuring approximately 5 cm. Masses do not appear to involve the dermis or chest wall. Other Findings: A 5 mm enhancing mass is seen in the upper-outer quadrant of the left breast far posteriorly, approximately 8 cm from the nipple. This appears to represent an abnormal lymph node. The visualized portions of the thoracic and abdominal viscera are unremarkable. IMPRESSION: OVERALL FINAL ASSESSMENT BI-RADS 6: KNOWN BIOPSY-PROVEN MALIGNANCY. [facility] Medical History (Updated 01/29/25 @ 16:[address] Ara Franklin MD) Anemia Axillary lymphadenopathy Surgical History (Updated 01/29/25 @ 15:21 by Gini Ac) delivery delivered Family History (Updated 01/29/25 @ 15:20 by Gini Ac) Other No pertinent family history Social History Smoking Status: Never smoker alcohol intake: never ROS Constitutional Constitutional: Reports systems reviewed and no addt'l complaints, except as documented and fatigue; Denies anorexia, fever(s) or weight loss Eyes Eyes: Reports systems reviewed and no addt'l complaints, except as documented; Denies change in vision or double vision ENT HEENT: Reports systems reviewed and no addt'l complaints, except as documented; Denies mouth lesions Cardiovascular Cardiovascular: Reports systems reviewed and no addt'l complaints, except as documented; Denies chest pain with activity or edema Respiratory/Chest Respiratory/Chest: Reports systems reviewed and no addt'l complaints, except as documented, as per HPI, breast mass and change in breast shape; Denies cough, dyspnea or breast skin changes Gastrointestinal Gastrointestinal: Reports systems reviewed and no addt'l complaints, except as documented; Denies change in bowel habits, hematochezia or melena Genitourinary Genitourinary: Reports systems reviewed and no addt'l complaints, except as documented and other Details: Last menstrual period was January 2025 ; Denies dysuria or hematuria Musculoskeletal Musculoskeletal: Reports systems reviewed and no addt'l complaints, except as documented; Denies back pain Integumentary Integumentary: Reports systems reviewed and no addt'l complaints, except as documented and as per HPI Neurologic Neurologic: Reports systems reviewed and no addt'l complaints, except as documented, headache(s) and other Details: Chronic occasional headaches no change ; Denies focal weakness or paresthesias Psychiatric Psychiatric: Reports systems reviewed and no addt'l complaints, except as documented Endocrine Endocrinology: Reports systems reviewed and no addt'l complaints, except as documented Hematologic/Lymphatic Hematologic/Lymphatic: Reports systems reviewed and no addt'l complaints, except as documented; Denies lymphadenopathy Allergic/Immunologic Allergic/Immunologic: Reports systems reviewed and no addt'l complaints, except as documented Intake Vital Signs 01/23/25 09:59 01/29/25 15:16 01/29/25 15:21 Height 5 ft 5 ft 5 ft Weight: 72.745 kg 72.121 kg BMI 31.3 31.0 BP 105/72 106/74 Blood Pressure Location Rt brachial Lt brachial Position Sitting Sitting Respiration 17 16 Pulse 64 67 Pulse Source Monitor Monitor Temp 97.5 F L 98.8 F Temperature Source (more content not included)... Normal [facility] Platelet countOrdered By: Huong Franklin on 01-29-2025 Platelets (Bld) [#/Vol] 264 10*3/uL 150-450 [facility] Potassium measurement (mass/ volume)Ordered By: Ara Franklin on 01-29-2025 Potassium (Unsp spec) [Mass/Vol] 3.8 mmol/L 3.3-5.1 [facility] RBC Auto (Bld) [#/Vol]Ordere d By: Ara Franklin on 01-29-2025 RBC (Bld) [#/Vol] 4.45 10*6/uL 4.2-5.4 [facility] Retic Panelon 01-29-2025 IM RET FRACTION 5.10 Normal 3.00-15.90 [facility] Comment on above: Performed By: #### L 503.0106, L500.4050, L503.6550, L100.0100, L100.9950, L503.6030 #### [facility] [address] [place], [address] RET-HE 33.6 pg Normal 30-35 [facility] Comment on above: Performed By: #### L 503.0106, L500.4050, L503.6550, L100.0100, L100.9950, L503.6030 #### [facility] [address] [place], [address] Retic Count 1.49 Normal 0.5-1.5 [facility] Comment on above: Performed By: #### L 503.0106, L500.4050, L503.6550, L100.0100, L100.9950, L503.6030 #### [facility] [address] [place], [address] Reticulocyte hemoglobin equi valent (RET-He) measurementOrdered By: Ara Franklin on 01-29-2025 Hemoglobin (Reticulocytes) [Entitic mass] 33.6 pg 30-35 [facility] Reticulocytes Auto (Bld) [#/ Vol]Ordered By: Ara Franklin on 01-29-2025 Reticulocytes/100 RBC (Bld) 1.49 % 0.5-1.5 [facility] Serum creatinine measurement (mass/volume)Ordered By: Ara Franklin on 01-29-2025 Creatinine [Mass/Vol] 0.61 mg/dL Low 0.70-1.20 [facility] Serum globulin measurementOr dered By: Ara Franklin on 01-29-2025 Globulin (S) [Mass/Vol] 2.9 g/dL 2.2-4.2 [facility] Serum glucose measurement (m ass/volume)Ordered By: Ara Franklin on 01-29-2025 Glucose [Mass/Vol] 92 mg/dL 70-99 [facility] Serum or plasma alanine mcdonald otransferase (ALT) measurementOrdered By: Ara Franklin on 01-29-2025 ALT [Catalytic activity/Vol] 24 U/L <35 [facility] Serum or plasma albumin ernestine urement (mass/volume)Ordered By: Ara Franklin on 01-29-2025 Albumin [Mass/Vol] 4.3 g/dL 3.5-5.0 [facility] Serum or plasma albumin/glob ulin mass ratioOrdered By: Ara Franklin on 01-29-2025 Albumin/Globulin [Mass ratio] 1.5 {ratio} 0.9-2.4 [facility] Serum or plasma alkaline chuckie sphatase measurementOrdered By: Ara Franklin on 01-29-2025 ALP [Catalytic activity/Vol] 68 U/L 35-104 [facility] Serum or plasma calcium ernestine urement (mass/volume)Ordered By: Ara Franklin on 01-29-2025 Calcium [Mass/Vol] 9.3 mg/dL 7.6-11.0 [facility] Serum or plasma ferritin ольга surement (mass/volume)Ordered By: Ara Franklin on 01-29-2025 Ferritin [Mass/Vol] 62 ng/mL 22-378 [facility] Serum or plasma iron saturat ion measurement (mass fraction)Ordered By: Ara Franklin on 01-29-2025 Iron saturation [Mass fraction] 33.0 % 13-59 [facility] Serum or plasma urea nitroge n measurement (mass/volume)Ordered By: Ara Franklin on 01-29-2025 Urea nitrogen [Mass/Vol] 16 mg/dL 4-19 [facility] Sodium levelOrdered By: Marlys Franklin on 01-29-2025 Sodium [Moles/Vol] 139 mmol/L 133-145 [facility] Total proteinOrdered By: Andrés Franklin on 01-29-2025 Protein [Mass/Vol] 7.2 g/dL 5.9-8.4 [facility] Vitamin B12on 01-29-2025 Cobalamin (Vitamin B12) [Mass/Vol] 565 pg/mL Normal 180-914 [facility] Comment on above: Performed By: #### L 503.0106, L500.4050, L503.6550, L100.0100, L100.9950, L503.6030 #### [facility] [address] [place], [place], [address] Vitamin B12 ser/plasOrdered By: Ara Franklin on 01-29-2025 Cobalamin (Vitamin B12) [Mass/Vol] 565 pg/mL 180-914 [facility] White blood cell (WBC) count Or[facility]: [facility] on 01-29-2025 WBC (Bld) [#/Vol] 6.8 10*3/uL 4.4-11.0 [facility] Breast Bilateral W/O and Won 01-25-2025 Breast Bilateral W/O and W [facility] [address] [place], [place] [id number] Breast Bilateral W/O and W MR#: [id number] Acct: [id number] Name: SHAUNA RAINEY Rep #: [id number] : 1995 F 29 From: Kristen May PCP: YENNI Hartman Status: REG CLI Study: Breast Bilateral W/O and W Date of Exam: 01/25 Exam# [id number] Ordering Dr: Tamiko Figueroa MD PROCEDURE: BREAST BILATERAL W/O AND W 01/25/2025 REASON FOR EXAM: BREAST CANCER Recent diagnosis of 3 left breast cancers at the 1 o'clock, 3 o'clock and 11 o'clock positions. Areolar inversion. Breast firmness. TECHNIQUE: Bilateral breast MRI using a dedicated bilateral breast coil before and following intravenous contrast. Images reviewed with subtraction and DynaCAD. CONTRAST: 15 mL of IV Clariscan COMPARISON: Mammogram dated 01/10/2025 and limited left breast ultrasound dated 01/10/2025 FINDINGS: TISSUE DENSITY: The breast tissue is heterogeneously dense, which may obscure small masses. Background Parenchymal Enhancement: Mild RIGHT Breast: No suspicious mass or non-mass enhancement. LEFT Breast: There are multiple abnormal enhancing masses noted throughout the left breast in different quadrants. There appear to be 9 masses, most of which are somewhat confluent and appear to be contiguous. The largest confluence of masses cover an area measuring approximately 5 cm. Masses do not appear to involve the dermis or chest wall. Other Findings: A 5 mm enhancing mass is seen in the upper-outer quadrant of the left breast far posteriorly, approximately 8 cm from the nipple. This appears to represent an abnormal lymph node. The visualized portions of the thoracic and abdominal viscera are unremarkable. MRI/Breast Bilateral W/O and W IMPRESSION: OVERALL FINAL ASSESSMENT BI-RADS 6: KNOWN BIOPSY-PROVEN MALIGNANCY. RECOMMENDATION: Medical oncology consultation is recommended. Surgical consultation and radiation oncology consultation is also recommended. Yearly screening mammography of the right breast is recommended. Reading Location: [id number] CC: Dr. Tamiko Figueroa MD; YENNI Hartman Transportation Maintenance Specialist: Signed Normal [facility] Surgery Visit Reporton 01-23 Surgery Visit Report [facility] [address] [place] [address] OFFICE VISIT Date of Service: 01/23/25 MR#: [id number] Acct: [id number] Name: SHAUNA RAINEY Rep #: [id number] : 1995 Provider: Dr. Tamiko aguero MD Age/Sex: 29/F Location: [facility] Status: Signed Intake Vital Signs 01/23/25 09:59 Height 5 ft Weight: 160 lb 6 oz BMI 31.3 BP 105/72 Blood Pressure Location Rt brachial Position Sitting Respiration 17 Pulse 64 Pulse Source Monitor Temp 97.5 F L Temp Source Temporal Pulse Oximetry (%) 99 Oxygen Delivery Method room air Intake Visit Reasons: BREAST CANCER- DISCUSS SX Chief Complaint: breast cancer-discuss sx Is patient in pain?: No Allergies No Known Allergies Allergy (Verified 01/23/25 10:01) Medications ???Medication ???Instructions ???Recorded ???Confirmed ???Type acetaminophen 325 mg tablet 650 mg PO Q4-6H PRN 01/23/2501/23 History (Tylenol) PFSH Surgical History (Updated 01/23/25 @ 09:58 by Nikki Vazquez) delivery delivered Social History (Updated 01/23/25 @ 09:59 by Nikki Vazquez) Smoking Status: Never smoker alcohol intake: never HPI HPI HPI: 29-year-old female states that she noticed some inversion of her areolar about a year ago. States in last few months she noticed that her left breast was more firm unable to feel discrete masses. 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 Ultrasound did not show any abnormal or large left axillary lymph nodes. Patient's age of menses 13, age at time of of first child 21, no family history of breast cancer, no previous breast biopsies prior to the most recent biopsies. Patient denies any nipple discharge. ROS General General: Yes weight change, fatigue and breast cancer; No appetite or colon cancer HEENT HEENT: No difficulty swallowing, eye injury, eye surgery, swollen glands or hoarseness Endo Endocrine: No thyroid disease, diabetes mellitus, thyroid cancer, Hair loss, heat intolerance or cold intolerance Skin Skin: No rash or changing moles Breast Breast: Yes left breast lump, breast pain, abnormal mammogram and abnormal US; No right breast lump, nipple discharge or breast enlargement Additional Details: Positive Invasive ductal carcinoma Musc Musculoskeletal: No back problems, arthritis, rheumatoid arthritis, gout or joint pain Cardio Cardiovascular: No murmur, pacemaker, heart disease, atrial fibrillation, high blood pressure, heart attack, heart stent, palpitations, shortness of breath with exertion or chest pain Psych Psychiatric: No depression, anxiety or hearing voices Resp Respiratory: No shortness of breath, No sleep apnea, No cough, No COPD, No asthma, No emphysema and No wheezing Gastro Gastrointestinal: No abdominal pain, No nausea or vomiting, Yes diarrhea, No constipation, No blood in stool, No acid reflux, No hemorrhoids, No ulcers, No gallbladder problem and No black,tarry stools [place] Hematologic: No blood thinners, No blood disorders, No bleeding, No anemia and No blood clots Neuro Neurologic: No numbness and No tingling Exam Const General: cooperative, healthy appearing and no acute distress [facility] Head: normal to inspection Chest Other: Breast inspection: Left breast resolving ecchymosis from biopsies, multiple firm areas noted on inspection of left breast Right breast: Fibroglandular tissue, no masses on exam, no nipple discharge or pain, no change in overlying skin Left breast: multiple firm areas especially in the upper outer quadrant, inversion of part of her areolar superior to her nipple, no nipple discharge, resolving ecchymosis No axillary or supraclavicular adenopathy bilaterally Resp Effort Inspection: normal respiratory effort Cardio Rate: regular rate GI Inspection: non-distended Palpation: soft Skin General: no rashes or lesions noted Neuro General: patient oriented x3 Extrem General: no clubbing, cyanosis or edema Psych Affect: normal affect Assessment and Plan Assessment and Plan (1) 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 Normal [facility] BI BREAST BIOPSY CLIP IMAGIN Dimitri 01-12-2025 BI BREAST BIOPSY CLIP IMAGING Interpreted By: Adithya Shaw, ADDENDUM: The final pathology returned as: A. Left breast mass 1:00, core biopsy: -- Invasive ductal carcinoma, grade 2-3 (see comment and synoptic report) B. Left breast mass 3:00,core biopsy: -- Invasive ductal carcinoma, grade 2-3 (see comment and synoptic report) -- Ductal carcinoma in situ, high nuclear grade, solid, cribriform and micropapillary patterns, with associated focal necrosis C. Left breast mass 11:00,core biopsy: -- Invasive ductal carcinoma, grade 2-3 (see comment and synoptic report) -- Ductal carcinoma in situ, high nuclear grade, solid and micropapillary patterns, with associated focal necrosis These results are concordant with mammographic and ultrasonographic findings. Appropriate action should be taken. Signed by: Adithya Shaw 01/29/2025 8:51 AM -------- ORIGINAL REPORT -------- Dictation workstation: [id number] Interpreted By: Adithya Shaw, STUDY: BI US GUIDED BREAST LOCALIZATION AND BIOPSY LEFT; BI BREAST BIOPSY CLIP IMAGING; 01/12/2025 12:05 pm; 01/12/2025 11:32 am ACCESSION NUMBER(S): [id number]; [id number] ORDERING CLINICIAN: RYAN COCHRAN INDICATION: Left breast masses. FINDINGS: PREPROCEDURAL CONSULTATION: The history and physical exam pertinent to the procedure were reviewed and no updates were made. The procedure was explained to the patient including the risks, benefits, and alternatives. Medications were discussed, including any prior use of blood thinning medications by the patient. Patient allergies were reviewed. The risks, including but not limited to infection and bleeding, were reviewed by the performing physician and the patient agreed to undergo the procedure. Prior to the procedure, an audible timeout was done to verify patient identification, site and type of procedure. Dr. Shaw, a radiology nurse and an instrument technologist were present. PROCEDURE: Scanning of the left breast redemonstrated multiple masses in the left breast in the 11-1 o'clock position, similar to the prior study. An additional 1.2 cm mass is noted in the 3 o'clock position of the left breast, approximately 2 cm from the nipple. Masses in the 11 o'clock, 1 o'clock and 3 o'clock positions were selected for biopsy.. The left breast was marked under ultrasound guidance and cleansed. 9 mL of 1% lidocaine was injected subcutaneously and then into the deeper tissues surrounding the 11 o'clock mass. A small incision was made. 4 tissue core specimens were then obtained with a 10-gauge vacuum-assisted biopsy needle with minimal bleeding (estimated blood loss less than 10 mL). An open coil Hydromark tissue marker was then placed into the biopsy site. 8 mL of 1% lidocaine was injected subcutaneously and then into the deeper tissues surrounding the 1 o'clock mass. A small incision was made. 5 tissue core specimens were then obtained with a 10-gauge vacuum-assisted biopsy needle with minimal bleeding (estimated blood loss less than 10 mL). An open coil Hydromark tissue marker was then placed into the biopsy site. 8 mL of 1% lidocaine was injected subcutaneously and then into the deeper tissues surrounding the 3 o'clock mass. A small incision was made. 4 tissue core specimens were then obtained with a 10-gauge vacuum-assisted biopsy needle with minimal bleeding (estimated blood loss less than 10 mL). An open coil Hydromark tissue marker was then placed into the biopsy site. Hemostasis was achieved with manual compression. The patient tolerated the procedure without difficulty. The postbiopsy mammogram demonstrates satisfactory placement of the tissue marker markers. The patient experienced no complications during the procedure. Home-going/follow-up instructions were reviewed with the patient before she left the department. IMPRESSION: Status post ultrasound guided core needle biopsy of 3 left breast masses followed by tissue marker placement. Pathology is pending. POST PROCEDURE MAMMOGRAM FOR MARKER PLACEMENT. MACRO: None Signed by: Adithya Shaw 01/12/2025 1:04 PM Dictation workstation: [id number] [facility] BI US GUIDED BREAST LOCALIZA TION AND BIOPSY LEFTon 01-12-2025 BI US GUIDED BREAST LOCALIZATION AND BIOPSY LEFT Interpreted By: Adithya Shaw, ADDENDUM: The final pathology returned as: A. Left breast mass 1:00, core biopsy: -- Invasive ductal carcinoma, grade 2-3 (see comment and synoptic report) B. Left breast mass 3:00,core biopsy: -- Invasive ductal carcinoma, grade 2-3 (see comment and synoptic report) -- Ductal carcinoma in situ, high nuclear grade, solid, cribriform and micropapillary patterns, with associated focal necrosis C. Left breast mass 11:00,core biopsy: -- Invasive ductal carcinoma, grade 2-3 (see comment and synoptic report) -- Ductal carcinoma in situ, high nuclear grade, solid and micropapillary patterns, with associated focal necrosis These results are concordant with mammographic and ultrasonographic findings. Appropriate action should be taken. Signed by: Adithya Shaw 01/29/2025 8:51 AM -------- ORIGINAL REPORT -------- Dictation workstation: [id number] Interpreted By: Adithya Sahw, STUDY: BI US GUIDED BREAST LOCALIZATION AND BIOPSY LEFT; BI BREAST BIOPSY CLIP IMAGING; 01/12/2025 12:05 pm; 01/12/2025 11:32 am ACCESSION NUMBER(S): [id number]; [id number] ORDERING CLINICIAN: RYAN COCHRAN INDICATION: Left breast masses. FINDINGS: PREPROCEDURAL CONSULTATION: The history and physical exam pertinent to the procedure were reviewed and no updates were made. The procedure was explained to the patient including the risks, benefits, and alternatives. Medications were discussed, including any prior use of blood thinning medications by the patient. Patient allergies were reviewed. The risks, including but not limited to infection and bleeding, were reviewed by the performing physician and the patient agreed to undergo the procedure. Prior to the procedure, an audible timeout was done to verify patient identification, site and type of procedure. Dr. Shaw, a radiology nurse and an instrument technologist were present. PROCEDURE: Scanning of the left breast redemonstrated multiple masses in the left breast in the 11-1 o'clock position, similar to the prior study. An additional 1.2 cm mass is noted in the 3 o'clock position of the left breast, approximately 2 cm from the nipple. Masses in the 11 o'clock, 1 o'clock and 3 o'clock positions were selected for biopsy.. The left breast was marked under ultrasound guidance and cleansed. 9 mL of 1% lidocaine was injected subcutaneously and then into the deeper tissues surrounding the 11 o'clock mass. A small incision was made. 4 tissue core specimens were then obtained with a 10-gauge vacuum-assisted biopsy needle with minimal bleeding (estimated blood loss less than 10 mL). An open coil Hydromark tissue marker was then placed into the biopsy site. 8 mL of 1% lidocaine was injected subcutaneously and then into the deeper tissues surrounding the 1 o'clock mass. A small incision was made. 5 tissue core specimens were then obtained with a 10-gauge vacuum-assisted biopsy needle with minimal bleeding (estimated blood loss less than 10 mL). An open coil Hydromark tissue marker was then placed into the biopsy site. 8 mL of 1% lidocaine was injected subcutaneously and then into the deeper tissues surrounding the 3 o'clock mass. A small incision was made. 4 tissue core specimens were then obtained with a 10-gauge vacuum-assisted biopsy needle with minimal bleeding (estimated blood loss less than 10 mL). An open coil Hydromark tissue marker was then placed into the biopsy site. Hemostasis was achieved with manual compression. The patient tolerated the procedure without difficulty. The postbiopsy mammogram demonstrates satisfactory placement of the tissue marker markers. The patient experienced no complications during the procedure. Home-going/follow-up instructions were reviewed with the patient before she left the department. IMPRESSION: Status post ultrasound guided core needle biopsy of 3 left breast masses followed by tissue marker placement. Pathology is pending. POST PROCEDURE MAMMOGRAM FOR MARKER PLACEMENT. MACRO: None Signed by: Adithya Shaw 01/12/2025 1:04 PM Dictation workstation: [id number] [facility] MG Breast - unilateral Singl e view for clip placementon 01-12-2025 Radiology Study observation (narrative) [facility] Work Phone: No Panel Informationon 01-12 Status post ultrasou nd guided core needle biopsy of 3 left breast masses followed by tissue marker placement. Pathology is pending. POST PROCEDURE MAMMOGRAM FOR MARKER PLACEMENT. MACRO: None Signed by: Adithya Shaw 01/12/2025 1:04 PM Dictation workstation: [id number] [facility] Interpreted By: Adithya Huertas, STUDY: BI US GUIDED BREAST LOCALIZATION AND BIOPSY LEFT; BI BREAST BIOPSY CLIP IMAGING; 01/12/2025 12:05 pm; 01/12/2025 11:32 am ACCESSION NUMBER(S): [id number]; [id number] ORDERING CLINICIAN: RYAN COCHRAN INDICATION: Left breast masses. FINDINGS: PREPROCEDURAL CONSULTATION: The history and physical exam pertinent to the procedure were reviewed and no updates were made. The procedure was explained to the patient including the risks, benefits, and alternatives. Medications were discussed, including any prior use of blood thinning medications by the patient. Patient allergies were reviewed. The risks, including but not limited to infection and bleeding, were reviewed by the performing physician and the patient agreed to undergo the procedure. Prior to the procedure, an audible timeout was done to verify patient identification, site and type of procedure. Dr. Shaw, a radiology nurse and an instrument technologist were present. PROCEDURE: Scanning of the left breast redemonstrated multiple masses in the left breast in the 11-1 o'clock position, similar to the prior study. An additional 1.2 cm mass is noted in the 3 o'clock position of the left breast, approximately 2 cm from the nipple. Masses in the 11 o'clock, 1 o'clock and 3 o'clock positions were selected for biopsy.. The left breast was marked under ultrasound guidance and cleansed. 9 mL of 1% lidocaine was injected subcutaneously and then into the deeper tissues surrounding the 11 o'clock mass. A small incision was made. 4 tissue core specimens were then obtained with a 10-gauge vacuum-assisted biopsy needle with minimal bleeding (estimated blood loss less than 10 mL). An open coil Hydromark tissue marker was then placed into the biopsy site. 8 mL of 1% lidocaine was injected subcutaneously and then into the deeper tissues surrounding the 1 o'clock mass. A small incision was made. 5 tissue core specimens were then obtained with a 10-gauge vacuum-assisted biopsy needle with minimal bleeding (estimated blood loss less than 10 mL). An open coil Hydromark tissue marker was then placed into the biopsy site. 8 mL of 1% lidocaine was injected subcutaneously and then into the deeper tissues surrounding the 3 o'clock mass. A small incision was made. 4 tissue core specimens were then obtained with a 10-gauge vacuum-assisted biopsy needle with minimal bleeding (estimated blood loss less than 10 mL). An open coil Hydromark tissue marker was then placed into the biopsy site. Hemostasis was achieved with manual compression. The patient tolerated the procedure without difficulty. The postbiopsy mammogram demonstrates satisfactory placement of the tissue marker markers. The patient experienced no complications during the procedure. Home-going/follow-up instructions were reviewed with the patient before she left the department. [facility] Adithya Shaw MD - 01/12/2025 Interpreted By: Adithya Shaw, STUDY: BI US GUIDED BREAST LOCALIZATION AND BIOPSY LEFT; BI BREAST BIOPSY CLIP IMAGING; 01/12/2025 12:05 pm; 01/12/2025 11:32 am ACCESSION NUMBER(S): [id number]; [id number] ORDERING CLINICIAN: RYAN COCHRAN INDICATION: Left breast masses. FINDINGS: PREPROCEDURAL CONSULTATION: The history and physical exam pertinent to the procedure were reviewed and no updates were made. The procedure was explained to the patient including the risks, benefits, and alternatives. Medications were discussed, including any prior use of blood thinning medications by the patient. Patient allergies were reviewed. The risks, including but not limited to infection and bleeding, were reviewed by the performing physician and the patient agreed to undergo the procedure. Prior to the procedure, an audible timeout was done to verify patient identification, site and type of procedure. Dr. Shaw, a radiology nurse and an instrument technologist were present. PROCEDURE: Scanning of the left breast redemonstrated multiple masses in the left breast in the 11-1 o'clock position, similar to the prior study. An additional 1.2 cm mass is noted in the 3 o'clock position of the left breast, approximately 2 cm from the nipple. Masses in the 11 o'clock, 1 o'clock and 3 o'clock positions were selected for biopsy.. The left breast was marked under ultrasound guidance and cleansed. 9 mL of 1% lidocaine was injected subcutaneously and then into the deeper tissues surrounding the 11 o'clock mass. A small incision was made. 4 tissue core specimens were then obtained with a 10-gauge vacuum-assisted biopsy needle with minimal bleeding (estimated blood loss less than 10 mL). An open coil Hydromark tissue marker was then placed into the biopsy site. 8 mL of 1% lidocaine was injected subcutaneously and then into the deeper tissues surrounding the 1 o'clock mass. A small incision was made. 5 tissue core specimens were then obtained with a 10-gauge vacuum-assisted biopsy needle with minimal bleeding (estimated blood loss less than 10 mL). An open coil Hydromark tissue marker was then placed into the biopsy site. 8 mL of 1% lidocaine was injected subcutaneously and then into the deeper tissues surrounding the 3 o'clock mass. A small incision was made. 4 tissue core specimens were then obtained with a 10-gauge vacuum-assisted biopsy needle with minimal bleeding (estimated blood loss less than 10 mL). An open coil Hydromark tissue marker was then placed into the biopsy site. Hemostasis was achieved with manual compression. The patient tolerated the procedure without difficulty. The postbiopsy mammogram demonstrates satisfactory placement of the tissue marker markers. The patient experienced no complications during the procedure. Home-going/follow-up instructions were reviewed with the patient before she left the department. IMPRESSION: Status post ultrasound guided core needle biopsy of 3 left breast masses followed by tissue marker placement. Pathology is pending. POST PROCEDURE MAMMOGRAM FOR MARKER PLACEMENT. MACRO: None Signed by: Adithya Shaw 01/12/2025 1:04 PM Dictation workstation: [id number] [facility] Work Phone: No Panel InformationOrdered By: Adithya Shaw on 01-12-2025 [facility] Work Phone: Surgical pathology studyon 0 01-12-2025 Surgical pathology study Pathology report.total SEE COMMENT Surgical Pathology Case: [id number] Authorizing Provider: Ryan Cochran PA-C Collected: 01/12/2025 1139 Ordering Location: [facility] Received: 01/12/2025 1221 Center Pathologist: Tevin Newell MD PhD Specimens: A) - BREAST CORE BIOPSY LEFT B) - BREAST CORE BIOPSY LEFT C) - BREAST CORE BIOPSY LEFT, 11 O'CLOCK Path report.final diagnosis SEE COMMENT A. Left breast mass 1:00, core biopsy: -- Invasive ductal carcinoma, grade 2-3 (see comment and synoptic report) B. Left breast mass 3:00,core biopsy: -- Invasive ductal carcinoma, grade 2-3 (see comment and synoptic report) -- Ductal carcinoma in situ, high nuclear grade, solid, cribriform and micropapillary patterns, with associated focal necrosis C. Left breast mass 11:00,core biopsy: -- Invasive ductal carcinoma, grade 2-3 (see comment and synoptic report) -- Ductal carcinoma in situ, high nuclear grade, solid and micropapillary patterns, with associated focal necrosis Tevin Newell MD, PhD at 1754 EDT Laboratory comment By the signature on this report, the individual or group listed as making the Final Interpretation/Diagnosis certifies that they have reviewed this case. Path report.comments SEE COMMENT Sections of the three masses reveal similar morphologic features. Part A: In this limited sample, the invasive carcinoma measures up to 4 mm in greatest dimension. Part B: In this limited sample, the invasive carcinoma measures up to 3 mm in greatest dimension. E-cadherin immunostain demonstrate intact membranous expression, supporting ductal phenotype. Parts C: In this limited sample, the invasive carcinoma measures up to 7 mm in greatest dimension. RESIDENT REVIEW The gross and/or microscopic findings were reviewed in conjunction with pathology resident, Luisa Gómez MD. Synoptic report SEE COMMENT Breast Biomarker Reporting Template BREAST BIOMARKER REPORTING TEMPLATE - A Protocol posted: 07/21/2023 Test(s) Performed: Estrogen Receptor (ER) Status: Negative (less than 1%) : Internal control cells absent Test Type: Food and Drug Administration (FDA) cleared (test / vendor): Damien CONFIRM anti-(ER) (SP1) Rabbit Monoclonal Primary Antibody, Damien Multimer Detection Primary Antibody: SP1 Scoring System: No separate scoring system used Test(s) Performed: Progesterone Receptor (PgR) Status: Negative (less than 1%) : Internal control cells absent Test Type: Food and Drug Administration (FDA) cleared (test / vendor): Damien CONFIRM anti-(SC) (1E2) Rabbit Monoclonal Primary Anitbody, Damien Multimer Detection Primary Antibody: 1E2 Scoring System: No separate scoring system used Test(s) Performed: HER2 by Immunohistochemistry: Positive (Score 3+) Test Type: Food and Drug Administration (FDA) cleared (test / vendor): Damien Pathway anti-HER-2/camila (4B5) Rabbit Monoclonal Primary Antibody, Damien Multimer Detection Primary Antibody: 4B5 Cold Ischemia and Fixation Times: Meet requirements specified in latest version of the ASCO / CAP Guidelines Testing Performed on Block Number(s): A1 METHODS Fixative: Formalin Image Analysis: Not performed Breast Biomarker Reporting Template BREAST BIOMARKER REPORTING TEMPLATE - B Protocol posted: 07/21/2023 Test(s) Performed: Estrogen Receptor (ER) Status: Negative (less than 1%) : Internal control cells present and stain as expected Test Type: Food and Drug Administration (FDA) cleared (test / vendor): Damien CONFIRM anti-(ER) (SP1) Rabbit Monoclonal Primary Antibody, Damien Multimer Detection Primary Antibody: SP1 Scoring System: No separate scoring system used Test(s) Performed: Progesterone Receptor (PgR) Status: Negative (less than 1%) : Internal control cells present and stain as expected Test Type: Food and Drug Administration (FDA) cleared (test / vendor): Damien CONFIRM anti-(SC) (1E2) Rabbit Monoclonal Primary Anitbody, Damien Multimer Detection Primary Antibody: 1E2 Scoring System: No separate scoring system used Test(s) Performed: HER2 by Immunohistochemistry: Positive (Score 3+) Test Type: Food and Drug Administration (FDA) cleared (test / vendor): Damien Pathway anti-HER-2/camila (4B5) Rabbit Monoclonal Primary Antibody, Damien Multimer Detection Primary Antibody: 4B5 Cold Ischemia and Fixation Times: Meet requirements specified in latest version of the ASCO / CAP Guidelines Testing Performed on Block Number(s): B1 METHODS Fixative: Formalin Image Analysis: Not performed Breast Biomarker Reporting Template BREAST BIOMARKER REPORTING TEMPLATE - C Protocol posted: 07/21/2023 Test(s) Performed: Estrogen Receptor (ER) Status: Negative (less than 1%) : Internal control cells absent Test Type: Food and Drug Administration (FDA) cleared (test / vendor): Damien CONFIRM anti-(ER) (SP1) Rabbit Monoclonal Primary Antibody, Damien Multimer Detection Primary Antibody: SP1 (more content not included)... Normal [facility] US Guidance for localization of Breast - lefton 01-12-2025 Radiology Study observation (narrative) [facility] Work Phone: BI MAMMO BILATERAL DIAGNOSTI C TOMOSYNTHESISon 01-10-2025 BI MAMMO BILATERAL DIAGNOSTIC TOMOSYNTHESIS Interpreted By: Adithya Shaw, STUDY: BI MAMMO BILATERAL DIAGNOSTIC TOMOSYNTHESIS; BI US BREAST LIMITED LEFT; 01/10/2025 8:52 am; 01/10/2025 10:45 am ACCESSION NUMBER(S): [id number]; [id number] ORDERING CLINICIAN: RYAN COCHRAN INDICATION: Signs/Symptoms:L breast mass /upper outer quad / nipple indent; Signs/Symptoms:L breast mass upper outer quad, nipple indent. COMPARISON: None. TECHNIQUE: Ultrasound: Multiple grayscale ultrasonographic images were obtained through the left breast in the region of palpable abnormality. Mammography: CC and MLO 2D digital mammograms and digital breast tomosynthesis images were obtained of the bilateral breasts. 3-D volume images were reconstructed in 4 views at an independent workstation as 1 mm slices through the breasts in both the CC and MLO projections. FINDINGS: Ultrasound: In the 12 o'clock position of the left breast, approximately 5 cm from the nipple, there is a microlobulated hypoechoic mass identified, measuring up to 1.8 x 1.0 x 1.0 cm. In the 11 o'clock position of the left breast, approximately 5 cm from the nipple, there is a microlobulated hypoechoic mass identified, measuring at up to 6 x 6 x 6 mm. In the 11 o'clock position of the left breast, approximately 4 cm from the nipple, there is a microlobulated hypoechoic mass identified, measuring at up to 1.3 x 1.1 x 0.7 cm. In the 1 o'clock position of the left breast, approximately 4 cm from the nipple, there is a microlobulated hypoechoic mass identified, measuring up to 1.5 x 1.3 x 1.1 cm. Screening evaluation of the left axilla demonstrated no enlarged or abnormal appearing lymph nodes. Further evaluation with mammograms were obtained. Mammography: Density: There are scattered areas of fibroglandular density. There are multiple spiculated masses identified in the 11-1 o'clock position of the left breast, corresponding with the masses seen on ultrasound. Pleomorphic calcifications are seen in association with these masses. No additional mass or focal asymmetry is identified. This study was interpreted with CAD. IMPRESSION: Multiple masses in the left breast, as above. These are highly suggestive in appearance for malignancy and further evaluation with biopsy is recommended. BI-RADS CATEGORY: BI-RADS CATEGORY: 5 Highly Suggestive of Malignancy. Recommendation: Surgical Consultation and Biopsy. Recommended Date: Immediate. Laterality: Left. MACRO: Critical Finding: See findings. Notification was initiated on 01/10/2025 at 11:20 am by Adithya Shaw. (-OCF-) Instructions: Surgical Consultation and Imaging Guided Biopsy. Signed by: Adithya Shaw 01/10/2025 11:20 AM Dictation workstation: [id number] [facility] BI US BREAST LIMITED LEFTon 01-10-2025 BI US BREAST LIMITED LEFT Interpreted By: Adithya Shaw, STUDY: BI MAMMO BILATERAL DIAGNOSTIC TOMOSYNTHESIS; BI US BREAST LIMITED LEFT; 01/10/2025 8:52 am; 01/10/2025 10:45 am ACCESSION NUMBER(S): [id number]; [id number] ORDERING CLINICIAN: RYAN COCHRAN INDICATION: Signs/Symptoms:L breast mass /upper outer quad / nipple indent; Signs/Symptoms:L breast mass upper outer quad, nipple indent. COMPARISON: None. TECHNIQUE: Ultrasound: Multiple grayscale ultrasonographic images were obtained through the left breast in the region of palpable abnormality. Mammography: CC and MLO 2D digital mammograms and digital breast tomosynthesis images were obtained of the bilateral breasts. 3-D volume images were reconstructed in 4 views at an independent workstation as 1 mm slices through the breasts in both the CC and MLO projections. FINDINGS: Ultrasound: In the 12 o'clock position of the left breast, approximately 5 cm from the nipple, there is a microlobulated hypoechoic mass identified, measuring up to 1.8 x 1.0 x 1.0 cm. In the 11 o'clock position of the left breast, approximately 5 cm from the nipple, there is a microlobulated hypoechoic mass identified, measuring at up to 6 x 6 x 6 mm. In the 11 o'clock position of the left breast, approximately 4 cm from the nipple, there is a microlobulated hypoechoic mass identified, measuring at up to 1.3 x 1.1 x 0.7 cm. In the 1 o'clock position of the left breast, approximately 4 cm from the nipple, there is a microlobulated hypoechoic mass identified, measuring up to 1.5 x 1.3 x 1.1 cm. Screening evaluation of the left axilla demonstrated no enlarged or abnormal appearing lymph nodes. Further evaluation with mammograms were obtained. Mammography: Density: There are scattered areas of fibroglandular density. There are multiple spiculated masses identified in the 11-1 o'clock position of the left breast, corresponding with the masses seen on ultrasound. Pleomorphic calcifications are seen in association with these masses. No additional mass or focal asymmetry is identified. This study was interpreted with CAD. IMPRESSION: Multiple masses in the left breast, as above. These are highly suggestive in appearance for malignancy and further evaluation with biopsy is recommended. BI-RADS CATEGORY: BI-RADS CATEGORY: 5 Highly Suggestive of Malignancy. Recommendation: Surgical Consultation and Biopsy. Recommended Date: Immediate. Laterality: Left. MACRO: Critical Finding: See findings. Notification was initiated on 01/10/2025 at 11:20 am by Adithya Shaw. (-OCF-) Instructions: Surgical Consultation and Imaging Guided Biopsy. Signed by: Adithya Shaw 01/10/2025 11:20 AM Dictation workstation: [id number] Abnormal [facility] DBT Breast - bilateral diagn osticon 01-10-2025 Radiology Study observation (narrative) [facility] Work Phone: No Panel InformationOrdered By: Adithya Shaw on 01-10-2025 Interpretation and review of laboratory results Abnormal [facility] Work Phone: [facility] Work Phone: No Panel Informationon 01-10 Multiple masses in t he left breast, as above. These are highly suggestive in appearance for malignancy and further evaluation with biopsy is recommended. BI-RADS CATEGORY: BI-RADS CATEGORY: 5 Highly Suggestive of Malignancy. Recommendation: Surgical Consultation and Biopsy. Recommended Date: Immediate. Laterality: Left. MACRO: Critical Finding: See findings. Notification was initiated on 01/10/2025 at 11:20 am by Adithya Shaw. (-OCF-) Instructions: Surgical Consultation and Imaging Guided Biopsy. Signed by: Adithya Shaw 01/10/2025 11:20 AM Dictation workstation: [id number] [id number] Interpreted By: Adithya Huertas, STUDY: BI MAMMO BILATERAL DIAGNOSTIC TOMOSYNTHESIS; BI US BREAST LIMITED LEFT; 01/10/2025 8:52 am; 01/10/2025 10:45 am ACCESSION NUMBER(S): [id number]; [id number] ORDERING CLINICIAN: RYAN COCHRAN INDICATION: Signs/Symptoms:L breast mass /upper outer quad / nipple indent; Signs/Symptoms:L breast mass upper outer quad, nipple indent. COMPARISON: None. TECHNIQUE: Ultrasound: Multiple grayscale ultrasonographic images were obtained through the left breast in the region of palpable abnormality. Mammography: CC and MLO 2D digital mammograms and digital breast tomosynthesis images were obtained of the bilateral breasts. 3-D volume images were reconstructed in 4 views at an independent workstation as 1 mm slices through the breasts in both the CC and MLO projections. FINDINGS: Ultrasound: In the 12 o'clock position of the left breast, approximately 5 cm from the nipple, there is a microlobulated hypoechoic mass identified, measuring up to 1.8 x 1.0 x 1.0 cm. In the 11 o'clock position of the left breast, approximately 5 cm from the nipple, there is a microlobulated hypoechoic mass identified, measuring at up to 6 x 6 x 6 mm. In the 11 o'clock position of the left breast, approximately 4 cm from the nipple, there is a microlobulated hypoechoic mass identified, measuring at up to 1.3 x 1.1 x 0.7 cm. In the 1 o'clock position of the left breast, approximately 4 cm from the nipple, there is a microlobulated hypoechoic mass identified, measuring up to 1.5 x 1.3 x 1.1 cm. Screening evaluation of the left axilla demonstrated no enlarged or abnormal appearing lymph nodes. Further evaluation with mammograms were obtained. Mammography: Density: There are scattered areas of fibroglandular density. There are multiple spiculated masses identified in the 11-1 o'clock position of the left breast, corresponding with the masses seen on ultrasound. Pleomorphic calcifications are seen in association with these masses. No additional mass or focal asymmetry is identified. This study was interpreted with CAD. MMODAL Adithya Shaw MD - 01/10/2025 Interpreted By: Adithya Shaw STUDY: BI MAMMO BILATERAL DIAGNOSTIC TOMOSYNTHESIS; BI US BREAST LIMITED LEFT; 01/10/2025 8:52 am; 01/10/2025 10:45 am ACCESSION NUMBER(S): [id number]; [id number] ORDERING CLINICIAN: RYAN COCHRAN INDICATION: Signs/Symptoms:L breast mass /upper outer quad / nipple indent; Signs/Symptoms:L breast mass upper outer quad, nipple indent. COMPARISON: None. TECHNIQUE: Ultrasound: Multiple grayscale ultrasonographic images were obtained through the left breast in the region of palpable abnormality. Mammography: CC and MLO 2D digital mammograms and digital breast tomosynthesis images were obtained of the bilateral breasts. 3-D volume images were reconstructed in 4 views at an independent workstation as 1 mm slices through the breasts in both the CC and MLO projections. FINDINGS: Ultrasound: In the 12 o'clock position of the left breast, approximately 5 cm from the nipple, there is a microlobulated hypoechoic mass identified, measuring up to 1.8 x 1.0 x 1.0 cm. In the 11 o'clock position of the left breast, approximately 5 cm from the nipple, there is a microlobulated hypoechoic mass identified, measuring at up to 6 x 6 x 6 mm. In the 11 o'clock position of the left breast, approximately 4 cm from the nipple, there is a microlobulated hypoechoic mass identified, measuring at up to 1.3 x 1.1 x 0.7 cm. In the 1 o'clock position of the left breast, approximately 4 cm from the nipple, there is a microlobulated hypoechoic mass identified, measuring up to 1.5 x 1.3 x 1.1 cm. Screening evaluation of the left axilla demonstrated no enlarged or abnormal appearing lymph nodes. Further evaluation with mammograms were obtained. Mammography: Density: There are scattered areas of fibroglandular density. There are multiple spiculated masses identified in the 11-1 o'clock position of the left breast, corresponding with the masses seen on ultrasound. Pleomorphic calcifications are seen in association with these masses. No additional mass or focal asymmetry is identified. This study was interpreted with CAD. IMPRESSION: Multiple masses in the left breast, as above. These are highly suggestive in appearance for malignancy and further evaluation with biopsy is recommended. BI-RADS CATEGORY: BI-RADS CATEGORY: 5 Highly Suggestive of Malignancy. Recommendation: Surgical Consultation and Biopsy. Recommended Date: Immediate. Laterality: Left. MACRO: Critical Finding: See findings. Notification was initiated on 01/10/2025 at 11:20 am by Adithay Shaw. (-OCF-) Instructions: Surgical Consultation and Imaging Guided Biopsy. Signed by: Adithya Shaw 01/10/2025 11:20 AM Dictation workstation: [id number] [facility] Work Phone: US Breast - left limitedon 0 01-10-2025 Radiology Study observation (narrative) [facility] Work Phone: CBC WITH AUTO DIFFERENTIALon 05-25-2024 AUTO NRBC 0.0 % Normal [facility] Comment on above: Performed By: #### L [id number] #### [facility] [address], [place] [address] Ivan Rizvi M.D. [id number] AUTO NRBC ABS COUNT 0.00 K/mcL Normal 0.00-0.00 [facility] Comment on above: Performed By: #### L [id number] #### [facility] [address] [place] [address] Ivan Rizvi M.D. [id number] BASOPHILS ABSOLUTE COUNT 0.04 K/mcL Normal 0.00-0.30 [facility] Comment on above: Performed By: #### L [id number] #### LAB [address] [place] [address] Ivan Rizvi M.D. [id number] Basophils/100 WBC (Bld) 0.8 % Normal [facility] Comment on above: Performed By: #### L [id number] #### LAB [address] [place] [address] Ivan Rizvi M.D. [id number] Eosinophils (Bld) [#/Vol] 0.33 10*3/uL Normal 0.00-0.50 [facility] Comment on above: Performed By: #### L [id number] #### LAB [address] [place] [address] Ivan Rizvi M.D. [id number] Eosinophils/100 WBC (Bld) 6.7 % Normal [facility] Comment on above: Performed By: #### L [id number] #### LAB [address] [place] [address] Ivan Rizvi M.D. [id number] Erythrocyte distribution width (RBC) [Ratio] 14.8 % Normal 11.6-14.8 [facility] Comment on above: Performed By: #### L [id number] #### LAB [address] [place] [address] Ivan Rizvi M.D. [id number] Hematocrit (Bld) [Volume fraction] 42.0 % Normal 36.0-46.0 [facility] Comment on above: Performed By: #### L [id number] #### LAB [address] [place] [address] Ivan Rizvi M.D. [id number] Hemoglobin (Bld) [Mass/Vol] 13.7 g/dL Normal 12.0-16.0 [facility] Comment on above: Performed By: #### L [id number] #### LAB [address] [place] [address] Ivan Rizvi M.D. [id number] IG ABSOLUTE 0.03 K/mcL Normal 0.00-0.30 [facility] Comment on above: Performed By: #### L [id number] #### LAB [address] [place] [address] Ivan Rizvi M.D. [id number] IG PERCENT 0.60 % Normal [facility] Comment on above: Result Comment: The IG parameter is the percentage of metamyelocytes, myelocytes and promyelocytes. An immature granulocyte count (IG) of 1% or more suggests the possibility of infection, an IG count of 3% is very likely related to an infection. Performed By: #### L [id number] #### LAB [address] [place] [address] Ivan Rizvi M.D. [id number] Lymphocytes (Bld) [#/Vol] 1.94 10*3/uL Normal 0.90-4.00 [facility] Comment on above: Performed By: #### L [id number] #### LAB [address] [place] [address] Ivan Rizvi M.D. [id number] Lymphocytes/100 WBC (Bld) 39.6 % Normal [facility] Comment on above: Performed By: #### L [id number] #### LAB [address] [place] [address] Ivan Rizvi M.D. [id number] MCH (RBC) [Entitic mass] 28.8 pg Normal 26.0-34.0 [facility] Comment on above: Performed By: #### L [id number] #### LAB [address] [place] [address] Ivan Rizvi M.D. [id number] MCV (RBC) [Entitic vol] 88.4 fL Normal 80.0-100.0 [facility] Comment on above: Performed By: #### L [id number] #### LAB [address] [place] [address] Ivan Rizvi M.D. [id number] MEAN CORPUSCULAR HEMOGLOBIN CONC 32.6 g/dL Normal 31.0-37.0 [facility] Comment on above: Performed By: #### L [id number] #### LAB [address] [place] [address] Ivan Rizvi M.D. [id number] Monocytes (Bld) [#/Vol] 0.43 10*3/uL Normal 0.30-0.90 [facility] Comment on above: Performed By: #### L [id number] #### LAB [address] [place] [address] Ivan Rizvi M.D. [id number] Monocytes/100 WBC (Bld) 8.8 % Normal [facility] Comment on above: Performed By: #### L [id number] #### LAB [address] [place] [address] Ivan Rizvi M.D. [id number] NEUTROPHILS ABSOLUTE COUNT 2.13 K/mcL Normal 1.70-7.00 [facility] Comment on above: Performed By: #### L [id number] #### LAB [address] [place] [address] Ivan Rizvi M.D. [id number] Neutrophils/100 WBC (Bld) 43.5 % Normal [facility] Comment on above: Performed By: #### L [id number] #### LAB [address] [place] [address] Ivan Rizvi M.D. [id number] Platelet mean volume (Bld) [Entitic vol] 9.8 fL Normal 9.4-12.4 [facility] Comment on above: Performed By: #### L [id number] #### LAB [address] [place] [address] Ivan Rizvi M.D. [id number] Platelets (Bld) [#/Vol] 314 10*3/uL Normal 150-400 [facility] Comment on above: Performed By: #### L [id number] #### LAB [address] [place] [address] Ivan Rizvi M.D. [id number] RBC (Bld) [#/Vol] 4.75 10*6/uL Normal 4.00-5.20 [facility] Comment on above: Performed By: #### L [id number] #### [facility] [address] [place], [place] [address] Ivan Rizvi M.D. [id number] WBC (Bld) [#/Vol] 4.90 10*3/uL Normal 4.50-11.00 [facility] Comment on above: Performed By: #### L [id number] #### [facility] [address] [place], [place] [address] Ivan Rizvi M.D. [id number] COMPREHENSIVE METABOLIC PANE [facility] 05-25-2024 Albumin [Mass/Vol] 3.7 g/dL Normal 3.2-5.[address] [facility] Comment on above: Order Comment: [facility] has implemented the eGFR calculation approach that does not have a coefficient for race that conforms to the NKF-ASN Task Force Recommendations. Performed By: #### [id number] ####[facility] [address] [place], [place] [address] Ivan Rizvi M.D. [id number] ALP [Catalytic activity/Vol] 70 U/L Normal 40-140 [facility] Comment on above: Order Comment: [facility] has implemented the eGFR calculation approach that does not have a coefficient for race that conforms to the NKF-ASN Task Force Recommendations. Performed By: #### 4 6126 ####[facility] [address] [address] Ivan Rizvi M.D. [id number] ALT [Catalytic activity/Vol] 18 U/L Normal 0-35 U/L [facility] Comment on above: Order Comment: [facility] has implemented the eGFR calculation approach that does not have a coefficient for race that conforms to the NKF-ASN Task Force Recommendations. Performed By: #### 4 6126 ####[facility] [address] [id number] Ivan Rizvi M.D. [id number] Anion gap [Moles/Vol] 15 mmol/L Normal 10-20 [facility] Comment on above: Order Comment: [facility] has implemented the eGFR calculation approach that does not have a coefficient for race that conforms to the NKF-ASN Task Force Recommendations. Performed By: #### 4 6126 #### LAB [address] [address] Ivan Rizvi M.D. [id number] AST [Catalytic activity/Vol] 15 U/L Normal 0-35 U/L [facility] Comment on above: Order Comment: [facility] has implemented the eGFR calculation approach that does not have a coefficient for race that conforms to the NKF-ASN Task Force Recommendations. Performed By: #### 4 6126 #### LAB [address] [address] Ivan Rizvi M.D. [id number] Bilirubin [Mass/Vol] 0.4 mg/dL Normal 0.0-1.3 [facility] Comment on above: Order Comment: [facility] has implemented the eGFR calculation approach that does not have a coefficient for race that conforms to the NKF-ASN Task Force Recommendations. Performed By: #### 4 6126 #### LAB [address] [address] Ivan Rizvi M.D. [id number] Calcium [Mass/Vol] 9.1 mg/dL Normal 8.4-10.[address] [facility] Comment on above: Order Comment: [facility] has implemented the eGFR calculation approach that does not have a coefficient for race that conforms to the NKF-ASN Task Force Recommendations. Performed By: #### 4 6126 #### LAB [address] [address] Ivan Rizvi M.D. [id number] Chloride [Moles/Vol] 104 mmol/L Normal 98-108 [facility] Comment on above: Order Comment: [facility] has implemented the eGFR calculation approach that does not have a coefficient for race that conforms to the NKF-ASN Task Force Recommendations. Performed By: #### 4 6126 #### LAB [address] [place], [place] [address] Ivan Rizvi M.D. [id number] Creatinine [Mass/Vol] 0.54 mg/dL Normal 0.40-1.10 [facility] Comment on above: Order Comment: [facility] has implemented the eGFR calculation approach that does not have a coefficient for race that conforms to the NKF-ASN Task Force Recommendations. Performed By: #### 4 6126 #### LAB [address] [address] Ivan Rizvi M.D. [id number] EGFR 130 mL/min/1.73 m2 Normal >=[address] [facility] Comment on above: Order Comment: [facility] has implemented the eGFR calculation approach that does not have a coefficient for race that conforms to the NKF-ASN Task Force Recommendations. Result Comment: Oskar mated GFR was calculated using the 2020 CKD-EPI creatinine equation. Performed By: #### 4 6126 #### LAB [address] [address] Ivan Rizvi M.D. [id number] Glucose [Mass/Vol] 101 mg/dL High 65-[address] [facility] Comment on above: Order Comment: [facility] has implemented the eGFR calculation approach that does not have a coefficient for race that conforms to the NKF-ASN Task Force Recommendations. Performed By: #### 4 6126 #### LAB [address] [address] Ivan Rizvi M.D. [id number] HCO3 (Bld) [Moles/Vol] 23 mmol/L Normal 21-32 [facility] Comment on above: Order Comment: [facility] has implemented the eGFR calculation approach that does not have a coefficient for race that conforms to the NKF-ASN Task Force Recommendations. Performed By: #### 4 6126 #### LAB [address] [address] Ivan Rizvi M.D. [id number] Potassium [Moles/Vol] 4.1 mmol/L Normal 3.5-5.1 [facility] Comment on above: Order Comment: [facility] has implemented the eGFR calculation approach that does not have a coefficient for race that conforms to the NKF-ASN Task Force Recommendations. Performed By: #### 4 6126 #### LAB [address] [place], [place] [address] Ivan Rizvi M.D. [id number] Protein [Mass/Vol] 6.5 g/dL Normal 6.0-8.[address] [facility] Comment on above: Order Comment: [facility] has implemented the eGFR calculation approach that does not have a coefficient for race that conforms to the NKF-ASN Task Force Recommendations. Performed By: #### 4 6126 #### LAB [address] [address] Ivan Rizvi M.D. [id number] Sodium [Moles/Vol] 138 mmol/L Normal 135-[address] [facility] Comment on above: Order Comment: [facility] has implemented the eGFR calculation approach that does not have a coefficient for race that conforms to the NKF-ASN Task Force Recommendations. Performed By: #### 4 6126 #### LAB [address] [address] Ivan Rizvi M.D. [id number] Urea nitrogen [Mass/Vol] 8 mg/dL Normal 8-25 [facility] Comment on above: Order Comment: [facility] has implemented the eGFR calculation approach that does not have a coefficient for race that conforms to the NKF-ASN Task Force Recommendations. Performed By: #### 4 6126 #### LAB [address] [place], [place] [address] Ivan Rizvi M.D. [id number] Urea nitrogen/Creatinine [Mass ratio] 14.8 mg/mg Normal 10.0-20.0 [facility] Comment on above: Order Comment: [facility] has implemented the eGFR calculation approach that does not have a coefficient for race that conforms to the NKF-ASN Task Force Recommendations. Performed By: #### 4 6126 #### LAB [address] [address] Ivan Rizvi M.D. [id number] CBC WITH AUTO DIFFERENTIALon 05-24-2024 AUTO NRBC 0.0 % [facility] Comment on above: Performed By: #### L [id number] #### LAB [address] [address] Ivan Rizvi M.D. [id number] AUTO NRBC ABS COUNT 0.00 K/mcL Normal 0.00-0.00 [facility] Comment on above: Performed By: #### L [id number] #### LAB [address] [address] Ivan Rizvi M.D. [id number] BASOPHILS ABSOLUTE COUNT 0.05 K/mcL Normal 0.00-0.30 [facility] Comment on above: Performed By: #### L [id number] #### LAB [address] [address] Ivan Rizvi M.D. [id number] Basophils/100 WBC (Bld) 1.0 % [facility] Comment on above: Performed By: #### L [id number] #### LAB [address] [place] [address] Ivan Rizvi M.D. [id number] Eosinophils (Bld) [#/Vol] 0.43 10*3/uL Normal 0.00-0.50 [facility] Comment on above: Performed By: #### L [id number] #### LAB [address] [address] Ivan Rizvi M.D. [id number] Eosinophils/100 WBC (Bld) 8.8 % Normal [facility] Comment on above: Performed By: #### L [id number] #### LAB [address] [place] [address] Ivan Rizvi M.D. [id number] Erythrocyte distribution width (RBC) [Ratio] 15.2 % High 11.6-14.8 [facility] Comment on above: Performed By: #### L [id number] #### LAB [address] [place] [address] Ivan Rizvi M.D. [id number] Hematocrit (Bld) [Volume fraction] 39.6 % Normal 36.0-46.0 [facility] Comment on above: Performed By: #### L [id number] #### LAB [address] [address] Ivan Rizvi M.D. [id number] Hemoglobin (Bld) [Mass/Vol] 12.7 g/dL Normal 12.0-16.0 [facility] Comment on above: Performed By: #### L [id number] #### LAB [address] [address] Ivan Rizvi M.D. [id number] IG ABSOLUTE 0.03 K/mcL Normal 0.00-0.30 [facility] Comment on above: Performed By: #### L [id number] #### LAB [address] [place] [address] Ivan Rizvi M.D. [id number] IG PERCENT 0.60 % Normal [facility] Comment on above: Result Comment: The IG parameter is the percentage of metamyelocytes, myelocytes and promyelocytes. An immature granulocyte count (IG) of 1% or more suggests the possibility of infection, an IG count of 3% is very likely related to an infection. Performed By: #### L [id number] #### LAB [address] [place] [address] Ivan Rizvi M.D. [id number] Lymphocytes (Bld) [#/Vol] 2.04 10*3/uL Normal 0.90-4.00 [facility] Comment on above: Performed By: #### L [id number] #### LAB [address] [place] [address] Ivan Rizvi M.D. [id number] Lymphocytes/100 WBC (Bld) 42.0 % [facility] Comment on above: Performed By: #### L [id number] #### LAB [address] [place] [address] Ivan Rizvi M.D. [id number] MCH (RBC) [Entitic mass] 28.7 pg Normal 26.0-34.0 [facility] Comment on above: Performed By: #### L [id number] #### LAB [address] [address] Ivan Rizvi M.D. [id number] MCV (RBC) [Entitic vol] 89.4 fL Normal 80.0-100.0 [facility] Comment on above: Performed By: #### L [id number] #### [facility] [address] [address] Ivan Rizvi M.D. [id number] MEAN CORPUSCULAR HEMOGLOBIN CONC 32.1 g/dL Normal 31.0-37.0 [facility] Comment on above: Performed By: #### L [id number] #### LAB [address] [address] Ivan Rizvi M.D. [id number] Monocytes (Bld) [#/Vol] 0.44 10*3/uL Normal 0.30-0.90 [facility] Comment on above: Performed By: #### L [id number] #### LAB [address] [address] Ivan Rizvi M.D. [id number] Monocytes/100 WBC (Bld) 9.1 % Normal [facility] Comment on above: Performed By: #### L [id number] #### LAB [address] [address] Ivan Rizvi M.D. [id number] NEUTROPHILS ABSOLUTE COUNT 1.87 K/mcL Normal 1.70-7.00 [facility] Comment on above: Performed By: #### L [id number] #### [facility] [address] [address] Ivan Rizvi M.D. [id number] Neutrophils/100 WBC (Bld) 38.5 % Normal [facility] Comment on above: Performed By: #### L [id number] #### [facility] [address] [address] Ivan Rizvi M.D. [id number] Platelet mean volume (Bld) [Entitic vol] 9.6 fL Normal 9.4-12.4 [facility] Comment on above: Performed By: #### L [id number] #### [facility] [address] [address] Ivan Rizvi M.D. [id number] Platelets (Bld) [#/Vol] 301 10*3/uL Normal 150-400 [facility] Comment on above: Performed By: #### L [id number] #### [facility] [address] [address] Ivan Rizvi M.D. [id number] RBC (Bld) [#/Vol] 4.43 10*6/uL Normal 4.00-5.20 [facility] Comment on above: Performed By: #### L [id number] #### [facility] [address] [address] Ivan Rzivi M.D. [id number] WBC (Bld) [#/Vol] 4.86 10*3/uL Normal 4.50-11.00 [facility] Comment on above: Performed By: #### L [id number] #### [facility] [address] [address] Ivan Rizvi M.D. [id number] COMPREHENSIVE METABOLIC PANE Colin 05-24-2024 Albumin [Mass/Vol] 3.5 g/dL Normal 3.2-5.[address] [facility] Comment on above: Order Comment: [facility] has implemented the eGFR calculation approach that does not have a coefficient for race that conforms to the NKF-ASN Task Force Recommendations. Performed By: #### 4 6126 ####[facility] [address] [address] Ivan Rizvi M.D. [id number] ALP [Catalytic activity/Vol] 64 U/L Normal 40-140 [facility] Comment on above: Order Comment: [facility] has implemented the eGFR calculation approach that does not have a coefficient for race that conforms to the NKF-ASN Task Force Recommendations. Performed By: #### 4 6126 #### LAB [address] [address] Ivan Rizvi M.D. [id number] ALT [Catalytic activity/Vol] 20 U/L Normal 0-35 U/L [facility] Comment on above: Order Comment: [facility] has implemented the eGFR calculation approach that does not have a coefficient for race that conforms to the NKF-ASN Task Force Recommendations. Performed By: #### 4 6126 #### LAB [address] [address] Ivan Rizvi M.D. [id number] Anion gap [Moles/Vol] 15 mmol/L Normal 10-20 [facility] Comment on above: Order Comment: [facility] has implemented the eGFR calculation approach that does not have a coefficient for race that conforms to the NKF-ASN Task Force Recommendations. Performed By: #### 4 6126 #### LAB [address] [address] Ivan Rizvi M.D. [id number] AST [Catalytic activity/Vol] 15 U/L Normal 0-35 U/L [facility] Comment on above: Order Comment: [facility] has implemented the eGFR calculation approach that does not have a coefficient for race that conforms to the NKF-ASN Task Force Recommendations. Performed By: #### 4 6126 #### LAB [address] [address] Ivan Rizvi M.D. [id number] Bilirubin [Mass/Vol] 0.3 mg/dL Normal 0.0-1.3 [facility] Comment on above: Order Comment: [facility] has implemented the eGFR calculation approach that does not have a coefficient for race that conforms to the NKF-ASN Task Force Recommendations. Performed By: #### 4 6126 #### LAB [address] [address] Ivan Rizvi M.D. [id number] Calcium [Mass/Vol] 8.9 mg/dL Normal 8.4-10.[address] [facility] Comment on above: Order Comment: [facility] has implemented the eGFR calculation approach that does not have a coefficient for race that conforms to the NKF-ASN Task Force Recommendations. Performed By: #### 4 6126 #### LAB [address] [place], [place] [address] Ivan Rizvi M.D. [id number] Chloride [Moles/Vol] 107 mmol/L Normal 98-108 [facility] Comment on above: Order Comment: [facility] has implemented the eGFR calculation approach that does not have a coefficient for race that conforms to the NKF-ASN Task Force Recommendations. Performed By: #### 4 6126 #### LAB [address] [address] Ivan Rizvi M.D. [id number] Creatinine [Mass/Vol] 0.54 mg/dL Normal 0.40-1.10 [facility] Comment on above: Order Comment: [facility] has implemented the eGFR calculation approach that does not have a coefficient for race that conforms to the NKF-ASN Task Force Recommendations. Performed By: #### 4 6126 #### LAB [address] [address] Ivan Rizvi M.D. [id number] EGFR 130 mL/min/1.73 m2 Normal >=[address] [facility] Comment on above: Order Comment: [facility] has implemented the eGFR calculation approach that does not have a coefficient for race that conforms to the NKF-ASN Task Force Recommendations. Result Comment: Oskar mated GFR was calculated using the 2020 CKD-EPI creatinine equation. Performed By: #### 4 6107 #### LAB [address] [address] Ivan Rizvi M.D. [id number] Glucose [Mass/Vol] 94 mg/dL Normal 65-[address] [facility] Comment on above: Order Comment: [facility] has implemented the eGFR calculation approach that does not have a coefficient for race that conforms to the NKF-ASN Task Force Recommendations. Performed By: #### 4 6176 #### LAB [address] [address] Ivan Rizvi M.D. [id number] HCO3 (Bld) [Moles/Vol] 20 mmol/L Low 21-32 [facility] Comment on above: Order Comment: [facility] has implemented the eGFR calculation approach that does not have a coefficient for race that conforms to the NKF-ASN Task Force Recommendations. Performed By: #### 4 6126 #### LAB [address] [address] Ivan Rizvi M.D. [id number] Potassium [Moles/Vol] 4.4 mmol/L Normal 3.5-5.1 [facility] Comment on above: Order Comment: [facility] has implemented the eGFR calculation approach that does not have a coefficient for race that conforms to the NKF-ASN Task Force Recommendations. Performed By: #### 4 6126 #### LAB [address] [address] Ivan Rizvi M.D. [id number] Protein [Mass/Vol] 6.1 g/dL Normal 6.0-8.[address] [facility] Comment on above: Order Comment: [facility] has implemented the eGFR calculation approach that does not have a coefficient for race that conforms to the NKF-ASN Task Force Recommendations. Performed By: #### 4 6126 #### LAB [address] [address] Ivan Rizvi M.D. [id number] Sodium [Moles/Vol] 138 mmol/L Normal 135-[address] [facility] Comment on above: Order Comment: [facility] has implemented the eGFR calculation approach that does not have a coefficient for race that conforms to the NKF-ASN Task Force Recommendations. Performed By: #### 4 6126 #### LAB [address] [address] Ivan Rizvi M.D. [id number] Urea nitrogen [Mass/Vol] 7 mg/dL Low 8-25 [facility] Comment on above: Order Comment: [facility] has implemented the eGFR calculation approach that does not have a coefficient for race that conforms to the NKF-ASN Task Force Recommendations. Performed By: #### 4 6126 #### LAB [address] [address] Ivan Rizvi M.D. [id number] Urea nitrogen/Creatinine [Mass ratio] 13.0 mg/mg Normal 10.0-20.0 [facility] Comment on above: Order Comment: [facility] has implemented the eGFR calculation approach that does not have a coefficient for race that conforms to the NKF-ASN Task Force Recommendations. Performed By: #### 4 6126 #### LAB [address] [address] Ivan Rizvi M.D. [id number] MAGNESIUM LEVELon 05-24-2024 Magnesium [Mass/Vol] 2.1 mg/dL Normal 1.6-2.4 [facility] Comment on above: Performed By: #### 4 6109 ####[facility] [address] [address] Ivan Rizvi M.D. [id number] PHOSPHORUSon 05-24-2024 Phosphate [Mass/Vol] 4.3 mg/dL Normal 2.7-4.5 [facility] Comment on above: Performed By: #### 4 6299 #### LAB [address] [id number] Ivan Rizvi M.D. [id number] BLOOD CULTURE AEROBIC/ANAERO BICon 05-23-2024 BLOOD CULTURE AEROBIC/ANAEROBIC BLOOD CULTURE No Growth after 5 days [facility] Comment on above: Performed By: #### 4 4014 #### LAB [address] [place], [place] [address] Ivan Rizvi M.D. [id number] BLOOD CULTURE AEROBIC/ANAEROBIC BLOOD CULTURE No Growth after 5 days [facility] Comment on above: Performed By: #### 4 4014 #### LAB [address] [address] Ivan Rizvi M.D. [id number] CBC WITH AUTO DIFFERENTIALon 05-23-2024 AUTO NRBC 0.0 % Normal [facility] Comment on above: Performed By: #### L [id number] #### LAB [address] [address] Ivan Rizvi M.D. [id number] AUTO NRBC ABS COUNT 0.00 K/mcL Normal 0.00-0.00 [facility] Comment on above: Performed By: #### L [id number] #### LAB [address] [address] Ivan Rizvi M.D. [id number] BASOPHILS ABSOLUTE COUNT 0.05 K/mcL Normal 0.00-0.30 [facility] Comment on above: Performed By: #### L [id number] #### LAB [address] [address] Ivan Rizvi M.D. [id number] Basophils/100 WBC (Bld) 0.7 % Normal [facility] Comment on above: Performed By: #### L [id number] #### LAB [address] [address] Ivan Rizvi M.D. [id number] Eosinophils (Bld) [#/Vol] 0.33 10*3/uL Normal 0.00-0.50 [facility] Comment on above: Performed By: #### L [id number] #### LAB [address] [place] [address] Ivan Rizvi M.D. [id number] Eosinophils/100 WBC (Bld) 4.8 % Normal [facility] Comment on above: Performed By: #### L [id number] #### LAB [address] [place] [address] Ivan Rizvi M.D. [id number] Erythrocyte distribution width (RBC) [Ratio] 14.8 % Normal 11.6-14.8 [facility] Comment on above: Performed By: #### L [id number] #### LAB [address] [place] [address] Ivan Rizvi M.D. [id number] Hematocrit (Bld) [Volume fraction] 38.3 % Normal 36.0-46.0 [facility] Comment on above: Performed By: #### L [id number] #### LAB [address] [address] Ivan Rizvi M.D. [id number] Hemoglobin (Bld) [Mass/Vol] 12.5 g/dL Normal 12.0-16.0 [facility] Comment on above: Performed By: #### L [id number] #### LAB [address] [address] Ivan Rizvi M.D. [id number] IG ABSOLUTE 0.04 K/mcL Normal 0.00-0.30 [facility] Comment on above: Performed By: #### L [id number] #### LAB [address] [address] Ivan Rizvi M.D. [id number] IG PERCENT 0.60 % Normal [facility] Comment on above: Result Comment: The IG parameter is the percentage of metamyelocytes, myelocytes and promyelocytes. An immature granulocyte count (IG) of 1% or more suggests the possibility of infection, an IG count of 3% is very likely related to an infection. Performed By: #### L [id number] #### LAB [address] [place] [address] Ivan Rizvi M.D. [id number] Lymphocytes (Bld) [#/Vol] 1.74 10*3/uL Normal 0.90-4.00 [facility] Comment on above: Performed By: #### L [id number] #### LAB [address] [address] Ivan Rizvi M.D. [id number] Lymphocytes/100 WBC (Bld) 25.5 % Normal [facility] Comment on above: Performed By: #### L [id number] #### LAB [address] [address] Ivan Rizvi M.D. [id number] MCH (RBC) [Entitic mass] 28.7 pg Normal 26.0-34.0 [facility] Comment on above: Performed By: #### L [id number] #### LAB [address] [address] Ivan Rizvi M.D. [id number] MCV (RBC) [Entitic vol] 87.8 fL Normal 80.0-100.0 [facility] Comment on above: Performed By: #### L [id number] #### LAB [address] [address] Ivan Rizvi M.D. [id number] MEAN CORPUSCULAR HEMOGLOBIN CONC 32.6 g/dL Normal 31.0-37.0 [facility] Comment on above: Performed By: #### L [id number] #### LAB [address] [address] Ivan Rizvi M.D. [id number] Monocytes (Bld) [#/Vol] 0.56 10*3/uL Normal 0.30-0.90 [facility] Comment on above: Performed By: #### L [id number] #### LAB [address] [address] Ivan Rizvi M.D. [id number] Monocytes/100 WBC (Bld) 8.2 % Normal [facility] Comment on above: Performed By: #### L [id number] #### LAB [address] [address] Ivan Rizvi M.D. [id number] NEUTROPHILS ABSOLUTE COUNT 4.10 K/mcL Normal 1.70-7.00 [facility] Comment on above: Performed By: #### L [id number] #### LAB [address] [address] Ivan Rizvi M.D. [id number] Neutrophils/100 WBC (Bld) 60.2 % Normal [facility] Comment on above: Performed By: #### L [id number] #### [facility] [address] [address] Ivan Rizvi M.D. [id number] Platelet mean volume (Bld) [Entitic vol] 9.5 fL Normal 9.4-12.4 [facility] Comment on above: Performed By: #### L [id number] #### [facility] [address] [address] Ivan Rizvi M.D. [id number] Platelets (Bld) [#/Vol] 309 10*3/uL Normal 150-400 [facility] Comment on above: Performed By: #### L [id number] #### [facility] [address] [address] Ivan Rizvi M.D. [id number] RBC (Bld) [#/Vol] 4.36 10*6/uL Normal 4.00-5.20 [facility] Comment on above: Performed By: #### L [id number] #### [facility] LAB [address] [address] Ivan Rizvi M.D. [id number] WBC (Bld) [#/Vol] 6.82 10*3/uL Normal 4.50-11.00 [facility] Comment on above: Performed By: #### L [id number] #### [facility] [address] [address] Ivan Rizvi M.D. [id number] COMPREHENSIVE METABOLIC [facility] 05-23-2024 Albumin [Mass/Vol] 3.6 g/dL Normal 3.2-5.[address] [facility] Comment on above: Order Comment: [facility] has implemented the eGFR calculation approach that does not have a coefficient for race that conforms to the NKF-ASN Task Force Recommendations. Performed By: #### 4 6126 ####[facility] [address] [address] Ivan Rizvi M.D. [id number] ALP [Catalytic activity/Vol] 77 U/L Normal 40-140 [facility] Comment on above: Order Comment: [facility] has implemented the eGFR calculation approach that does not have a coefficient for race that conforms to the NKF-ASN Task Force Recommendations. Performed By: #### 4 6126 ####[facility] [address] [address] Ivan Rizvi M.D. [id number] ALT [Catalytic activity/Vol] 22 U/L Normal 0-35 U/L [facility] Comment on above: Order Comment: [facility] has implemented the eGFR calculation approach that does not have a coefficient for race that conforms to the NKF-ASN Task Force Recommendations. Performed By: #### 4 6126 #### LAB [address] [address] Ivan Rizvi M.D. [id number] Anion gap [Moles/Vol] 14 mmol/L Normal 10-20 [facility] Comment on above: Order Comment: [facility] has implemented the eGFR calculation approach that does not have a coefficient for race that conforms to the NKF-ASN Task Force Recommendations. Performed By: #### 4 6126 #### LAB [address] [address] Ivan Rizvi M.D. [id number] AST [Catalytic activity/Vol] 19 U/L Normal 0-35 U/L [facility] Comment on above: Order Comment: [facility] has implemented the eGFR calculation approach that does not have a coefficient for race that conforms to the NKF-ASN Task Force Recommendations. Performed By: #### 4 6126 #### LAB [address] [address] Ivan Rizvi M.D. [id number] Bilirubin [Mass/Vol] 0.3 mg/dL Normal 0.0-1.3 [facility] Comment on above: Order Comment: [facility] has implemented the eGFR calculation approach that does not have a coefficient for race that conforms to the NKF-ASN Task Force Recommendations. Performed By: #### 4 6126 #### LAB [address] [address] Ivan Rizvi M.D. [id number] Calcium [Mass/Vol] 8.8 mg/dL Normal 8.4-10.[address] [facility] Comment on above: Order Comment: [facility] has implemented the eGFR calculation approach that does not have a coefficient for race that conforms to the NKF-ASN Task Force Recommendations. Performed By: #### 4 6126 #### LAB [address] [address] Ivan Rizvi M.D. [id number] Chloride [Moles/Vol] 108 mmol/L Normal 98-108 [facility] Comment on above: Order Comment: [facility] has implemented the eGFR calculation approach that does not have a coefficient for race that conforms to the NKF-ASN Task Force Recommendations. Performed By: #### 4 6126 #### LAB [address] [address] Ivan Rizvi M.D. [id number] Creatinine [Mass/Vol] 0.45 mg/dL Normal 0.40-1.10 [facility] Comment on above: Order Comment: [facility] has implemented the eGFR calculation approach that does not have a coefficient for race that conforms to the NKF-ASN Task Force Recommendations. Performed By: #### 4 6126 #### LAB [address] [address] Ivan Rizvi M.D. [id number] EGFR 135 mL/min/1.73 m2 Normal >=[address] [facility] Comment on above: Order Comment: [facility] has implemented the eGFR calculation approach that does not have a coefficient for race that conforms to the NKF-ASN Task Force Recommendations. Result Comment: Oskar mated GFR was calculated using the 2020 CKD-EPI creatinine equation. Performed By: #### 4 6126 #### LAB [address] [address] Ivan Rizvi M.D. [id number] Glucose [Mass/Vol] 102 mg/dL High 65-[address] [facility] Comment on above: Order Comment: [facility] has implemented the eGFR calculation approach that does not have a coefficient for race that conforms to the NKF-ASN Task Force Recommendations. Performed By: #### 4 6126 #### LAB [address] [address] Ivan Rizvi M.D. [id number] HCO3 (Bld) [Moles/Vol] 21 mmol/L Normal 21-32 [facility] Comment on above: Order Comment: [facility] has implemented the eGFR calculation approach that does not have a coefficient for race that conforms to the NKF-ASN Task Force Recommendations. Performed By: #### 4 6111 #### LAB [address] [address] Ivan Rizvi M.D. [id number] Potassium [Moles/Vol] 3.8 mmol/L Normal 3.5-5.1 [facility] Comment on above: Order Comment: [facility] has implemented the eGFR calculation approach that does not have a coefficient for race that conforms to the NKF-ASN Task Force Recommendations. Performed By: #### 4 6148 #### LAB [address] [address] Ivan Rizvi M.D. [id number] Protein [Mass/Vol] 6.3 g/dL Normal 6.0-8.[address] [facility] Comment on above: Order Comment: [facility] has implemented the eGFR calculation approach that does not have a coefficient for race that conforms to the NKF-ASN Task Force Recommendations. Performed By: #### 4 6189 #### LAB [address] [address] Ivan Rizvi M.D. [id number] Sodium [Moles/Vol] 139 mmol/L Normal 135-[address] [facility] Comment on above: Order Comment: [facility] has implemented the eGFR calculation approach that does not have a coefficient for race that conforms to the NKF-ASN Task Force Recommendations. Performed By: #### 4 6130 ####[facility] [address] [address] Ivan Rizvi M.D. [id number] Urea nitrogen [Mass/Vol] 5 mg/dL Low 8-25 [facility] Comment on above: Order Comment: [facility] has implemented the eGFR calculation approach that does not have a coefficient for race that conforms to the NKF-ASN Task Force Recommendations. Performed By: #### 4 6126 ####[facility] [address] [place], [place] [address] Ivan Rizvi M.D. [id number] Urea nitrogen/Creatinine [Mass ratio] 11.1 mg/mg Normal 10.0-20.0 [facility] Comment on above: Order Comment: [facility] has implemented the eGFR calculation approach that does not have a coefficient for race that conforms to the NKF-ASN Task Force Recommendations. Performed By: #### 4 6126 #### LAB [address] [place], [place] [address] Ivan Rizvi M.D. [id number] CT ANGIO CHEST FOR PULMONARY EMBOLISMon 05-23-2024 CT ANGIO CHEST FOR PULMONARY EMBOLISM Interpreted By: Roberto Ortiz, STUDY: CT ANGIO CHEST FOR PULMONARY EMBOLISM; 05/23/2024 1:48 am INDICATION: Signs/Symptoms:pain. COMPARISON: Chest radiograph 05/22/2024 ACCESSION NUMBER(S): [id number] ORDERING CLINICIAN: MARIELA SCHULZ TECHNIQUE: Axial CTA images of the chest after intravenous administration of 68 mL Omn[address] angiographic technique. Coronal and sagittal images are reconstructed. MIP images were created and reviewed. FINDINGS: CHEST WALL AND LOWER NECK: Within normal limits. ABDOMEN: No acute abnormality of the partially visualized abdomen. VASCULAR: AORTA: No aortic aneurysm or dissection. No significant atherosclerotic disease. PULMONARY ARTERY: Normal caliber. No pulmonary embolus to the segmental level. CHEST: HEART: Normal size. No pericardial effusion. MEDIASTINUM AND BRIDGET: No pathologically enlarged thoracic lymph nodes. LUNG, PLEURA, LARGE AIRWAYS: Patchy right basilar airspace opacity. No pleural effusion. BONES: No acute osseous abnormality. IMPRESSION: No acute pulmonary embolus to the segmental level. Patchy right basilar airspace opacity most compatible with pneumonia. MACRO: None. Signed by: Roberto Ortiz 05/23/2024 1:56 AM Dictation workstation: [id number] [facility] CT Chest W contrast IV and C T angiogram Pulmonary arteries for pulmonary embolus W contrast Jeevan 05-23-2024 No acute pulmonary e mbolus to the segmental level. Patchy right basilar airspace opacity most compatible with pneumonia. MACRO: None. Signed by: Roberto Ortiz 05/23/2024 1:56 AM Dictation workstation: [id number] [facility] Interpreted By: Roberto Ortiz, STUDY: CT ANGIO CHEST FOR PULMONARY EMBOLISM; 05/23/2024 1:48 am INDICATION: Signs/Symptoms:pain. COMPARISON: Chest radiograph 05/22/2024 ACCESSION NUMBER(S): [id number] ORDERING CLINICIAN: MARIELA SCHULZ TECHNIQUE: Axial CTA images of the chest after intravenous administration of 68 mL Omnip[address] angiographic technique. Coronal and sagittal images are reconstructed. MIP images were created and reviewed. FINDINGS: CHEST WALL AND LOWER NECK: Within normal limits. ABDOMEN: No acute abnormality of the partially visualized abdomen. VASCULAR: AORTA: No aortic aneurysm or dissection. No significant atherosclerotic disease. PULMONARY ARTERY: Normal caliber. No pulmonary embolus to the segmental level. CHEST: HEART: Normal size. No pericardial effusion. MEDIASTINUM AND BRIDGET: No pathologically enlarged thoracic lymph nodes. LUNG, PLEURA, LARGE AIRWAYS: Patchy right basilar airspace opacity. No pleural effusion. BONES: No acute osseous abnormality. MMODAL Roberto Ortiz MD - 05/23/2024 Interpreted By: Roberto Ortiz, STUDY: CT ANGIO CHEST FOR PULMONARY EMBOLISM; 05/23/2024 1:48 am INDICATION: Signs/Symptoms:pain. COMPARISON: Chest radiograph 05/22/2024 ACCESSION NUMBER(S): [id number] ORDERING CLINICIAN: MARIELA SCHULZ TECHNIQUE: Axial CTA images of the chest after intravenous administration of 68 mL Omnip[address] angiographic technique. Coronal and sagittal images are reconstructed. MIP images were created and reviewed. FINDINGS: CHEST WALL AND LOWER NECK: Within normal limits. ABDOMEN: No acute abnormality of the partially visualized abdomen. VASCULAR: AORTA: No aortic aneurysm or dissection. No significant atherosclerotic disease. PULMONARY ARTERY: Normal caliber. No pulmonary embolus to the segmental level. CHEST: HEART: Normal size. No pericardial effusion. MEDIASTINUM AND BRIDGET: No pathologically enlarged thoracic lymph nodes. LUNG, PLEURA, LARGE AIRWAYS: Patchy right basilar airspace opacity. No pleural effusion. BONES: No acute osseous abnormality. IMPRESSION: No acute pulmonary embolus to the segmental level. Patchy right basilar airspace opacity most compatible with pneumonia. MACRO: None. Signed by: Roberto Ortiz 05/23/2024 1:56 AM Dictation workstation: [id number] [facility] Work Phone: Radiology Study observation (narrative) [facility] Work Phone: CT Chest W contrast IV and C T angiogram Pulmonary arteries for pulmonary embolus W contrast IVOrdered By: Roberto Ortiz on 05-23-2024 [facility] Work Phone: HCG, BLOOD, QUANTITATIVEon 1 HCG, QUANTITATIVE < Normal 0-5 [facility] Comment on above: Order Comment: Males and non females: <5 mIU/mLFemales during :3-4 weeks 9-130 mIU/mL4-5 weeks 75-2600 mIU/mL5-6 weeks 850-20,800 mIU/mL6-7 weeks 4000-100,200 mIU/mL7-12 weeks 11,500-289,000 mIU/mL12-16 weeks 18,300-137,000 mIU/mL16-29 weeks 1,400-53,000 mIU/mL29-41 weeks 940-60,000 mIU/mL Performed By: #### 4 5827 ####[facility] [address] [place] [address] Ivan Rizvi M.D. [id number] Lactateon 05-23-2024 Lactate [Moles/Vol] 2.1 mmol/L High 0.4 - 2. 0 mmol/L [facility] Lactate [Moles/Vol] 2.1 mmol/L High 0.4-2.0 [facility] Comment on above: Order Comment: Venip uncture immediately after or during the administration of Metamizole may lead to falsely low results. Testing should be performed immediately prior to Metamizole dosing. Performed By: #### 2 524-7 #### [facility] ([id number]) [facility] ([facility]) [address] [place] [address] Lactate [Moles/Vol]on 2023 Interpretation and review of laboratory results Abnormal [facility] Venipuncture immedia tely after or during the administration of Metamizole may lead to falsely low results. Testing should be performed immediately prior to Metamizole dosing. [facility] MAGNESIUM LEVELon 05-23-2024 Magnesium [Mass/Vol] 2.1 mg/dL Normal 1.6-2.4 [facility] Comment on above: Performed By: #### 4 6109 #### LAB [address] [address] Ivan Rizvi M.D. [id number] PHOSPHORUSon 05-23-2024 Phosphate [Mass/Vol] 3.5 mg/dL Normal 2.7-4.5 [facility] Comment on above: Performed By: #### 4 6299 #### LAB [address] [address] Ivan Rizvi M.D. [id number] PROCALCITONINon 05-23-2024 PROCALCITONIN < Normal <0.50 [facility] Comment on above: Order Comment: Resul ts <0.50 ng/ml represent a low risk of severe sepsis and/or septic shock. Performed By: #### 4 7652 #### LAB [address] [address] Ivan Rizvi M.D. [id number] RESPIRATORY PCR PANELon 05-09 RESPIRATORY PCR PANEL INFLUENZA A FILMAR RAY Not Detected INFLUENZA B FILM ARRAY Not Detected PARAINFLUENZA VIRUS 1 Not Detected PARAINFLUENZA VIRUS 2 Not Detected PARAINFLUENZA VIRUS 3 Not Detected PARAINFLUENZA VIRUS 4 Not Detected RESPIRATORY SYNCYTIAL VIRUS FILM ARRAY Not Detected HUMAN METAPNEUMOVIRUS Not Detected HUMAN RHINOVIRUS/ENTEROVIRUS Not Detected ADENOVIRUS FILM ARRAY Not Detected CORONAVIRUS 229E Not Detected CORONAVIRUS HKU1 Not Detected CORONAVIRUS NL63 Not Detected CORONAVIRUS OC43 Not Detected BORDETELLA PARAPERTUSSIS Not Detected BORDETELLA PERTUSSIS Not Detected MYCOPLASMA PNEUMONIAE Not Detected CHLAMYDIA PNEUMONIAE Not Detected SARS-COV-2 (BIOFIRE) Not Detected Normal Not Detected [facility] Comment on above: Performed By: #### L [id number] #### [facility] [address] [address] Keyshawn Monzon M.D. [id number] S.PNEUMONIAE URINE ANTIGENon 05-23-2024 S.PNEUMONIAE URINE ANTIGEN STREP PNEUMONIAE ANTIGEN, URINE Presumptive Negative for Pneumococcal pneumoniae A negative result suggests no current or recent pneumococcal infection. A negative result does not rule out Streptococcus pneumoniae infection since the antigen present in the sample may be below the detection limit of the test. Normal [facility] Comment on above: Performed By: #### 4 7222 #### LAB [address] [address] Ivan Rizvi M.D. [id number] URINALYSISon 05-23-2024 BACTERIA, URINE None Seen Normal None Seen [facility] Comment on above: Order Comment: Micro scopic examination is performed on all urinalysis samples and only positive findings are reported. The test for blood on the chemical analytic portion of urinalysis may also be positive due to hemoglobinuria and myoglobinuria and if red blood cells are present they are quantified by microscopic examination. Performed By: #### 4 6625 #### LAB [address] [place] [address] Ivan Rizvi M.D. [id number] BILIRUBIN, URINE Negative Normal Negative [facility] Comment on above: Order Comment: Micro scopic examination is performed on all urinalysis samples and only positive findings are reported. The test for blood on the chemical analytic portion of urinalysis may also be positive due to hemoglobinuria and myoglobinuria and if red blood cells are present they are quantified by microscopic examination. Performed By: #### 4 6625 #### LAB [address] [address] Ivan Rizvi M.D. [id number] BLOOD, URINE Small Abnormal Negative [facility] Comment on above: Order Comment: Micro scopic examination is performed on all urinalysis samples and only positive findings are reported. The test for blood on the chemical analytic portion of urinalysis may also be positive due to hemoglobinuria and myoglobinuria and if red blood cells are present they are quantified by microscopic examination. Performed By: #### 4 6625 #### LAB [address] [address] Ivan Rizvi M.D. [id number] Clarity (U) Clear Normal Clear [facility] Comment on above: Order Comment: Micro scopic examination is performed on all urinalysis samples and only positive findings are reported. The test for blood on the chemical analytic portion of urinalysis may also be positive due to hemoglobinuria and myoglobinuria and if red blood cells are present they are quantified by microscopic examination. Performed By: #### 4 6625 #### LAB [address] [address] Ivan Rizvi M.D. [id number] Color (U) Colorless Normal Colorless, Yellow [facility] Comment on above: Order Comment: Micro scopic examination is performed on all urinalysis samples and only positive findings are reported. The test for blood on the chemical analytic portion of urinalysis may also be positive due to hemoglobinuria and myoglobinuria and if red blood cells are present they are quantified by microscopic examination. Performed By: #### 4 6625 #### LAB [address] [address] Ivan Rizvi M.D. [id number] Glucose Ql (U) Negative Normal Negative [facility] Comment on above: Order Comment: Micro scopic examination is performed on all urinalysis samples and only positive findings are reported. The test for blood on the chemical analytic portion of urinalysis may also be positive due to hemoglobinuria and myoglobinuria and if red blood cells are present they are quantified by microscopic examination. Performed By: #### 4 6625 #### LAB [address] [address] Ivan Rizvi M.D. [id number] Ketones Ql (U) Negative Normal Negative [facility] Comment on above: Order Comment: Micro scopic examination is performed on all urinalysis samples and only positive findings are reported. The test for blood on the chemical analytic portion of urinalysis may also be positive due to hemoglobinuria and myoglobinuria and if red blood cells are present they are quantified by microscopic examination. Performed By: #### 4 6625 #### LAB [address] [address] Ivan Rizvi M.D. [id number] Leukocyte esterase Test strip Ql (U) Negative Normal Negative [facility] Comment on above: Order Comment: Micro scopic examination is performed on all urinalysis samples and only positive findings are reported. The test for blood on the chemical analytic portion of urinalysis may also be positive due to hemoglobinuria and myoglobinuria and if red blood cells are present they are quantified by microscopic examination. Performed By: #### 4 6625 #### LAB [address] [address] Ivan Rizvi M.D. [id number] MUCUS, URINE Rare Normal None Seen, Rare [facility] Comment on above: Order Comment: Micro scopic examination is performed on all urinalysis samples and only positive findings are reported. The test for blood on the chemical analytic portion of urinalysis may also be positive due to hemoglobinuria and myoglobinuria and if red blood cells are present they are quantified by microscopic examination. Performed By: #### 4 6625 #### LAB [address] [address] Ivan Rizvi M.D. [id number] NITRITE, URINE Negative Normal Negative [facility] Comment on above: Order Comment: Micro scopic examination is performed on all urinalysis samples and only positive findings are reported. The test for blood on the chemical analytic portion of urinalysis may also be positive due to hemoglobinuria and myoglobinuria and if red blood cells are present they are quantified by microscopic examination. Performed By: #### 4 6625 #### LAB [address] [address] Ivan Rizvi M.D. [id number] pH (U) 6.5 [pH] Normal 5.0-7.0 [facility] Comment on above: Order Comment: Micro scopic examination is performed on all urinalysis samples and only positive findings are reported. The test for blood on the chemical analytic portion of urinalysis may also be positive due to hemoglobinuria and myoglobinuria and if red blood cells are present they are quantified by microscopic examination. Performed By: #### 4 6625 #### LAB [address] [address] Ivan Rizvi M.D. [id number] PROTEIN, URINE Negative Normal Negative [facility] Comment on above: Order Comment: Micro scopic examination is performed on all urinalysis samples and only positive findings are reported. The test for blood on the chemical analytic portion of urinalysis may also be positive due to hemoglobinuria and myoglobinuria and if red blood cells are present they are quantified by microscopic examination. Performed By: #### 4 6625 #### LAB [address] [address] Ivan Rizvi M.D. [id number] RBC LM.HPF (Urine sed) [#/Area] 1 /[HPF] Normal 0-3 [facility] Comment on above: Order Comment: Micro scopic examination is performed on all urinalysis samples and only positive findings are reported. The test for blood on the chemical analytic portion of urinalysis may also be positive due to hemoglobinuria and myoglobinuria and if red blood cells are present they are quantified by microscopic examination. Performed By: #### 4 6625 #### LAB [address] [address] Ivan Rizvi M.D. [id number] Specific gravity (U) [Rel density] 1.011 Normal 1.005-1.025 [facility] Comment on above: Order Comment: Micro scopic examination is performed on all urinalysis samples and only positive findings are reported. The test for blood on the chemical analytic portion of urinalysis may also be positive due to hemoglobinuria and myoglobinuria and if red blood cells are present they are quantified by microscopic examination. Performed By: #### 4 6625 #### LAB [address] [address] Ivan Rizvi M.D. [id number] SQUAMOUS EPITHELIAL 2 /hpf Normal 0-4 [facility] Comment on above: Order Comment: Micro scopic examination is performed on all urinalysis samples and only positive findings are reported. The test for blood on the chemical analytic portion of urinalysis may also be positive due to hemoglobinuria and myoglobinuria and if red blood cells are present they are quantified by microscopic examination. Performed By: #### 4 6625 #### LAB [address] [place], [place] [address] Ivan Rizvi M.D. [id number] UROBILINOGEN, URINE <2.0 Normal <2.0 [facility] Comment on above: Order Comment: Micro scopic examination is performed on all urinalysis samples and only positive findings are reported. The test for blood on the chemical analytic portion of urinalysis may also be positive due to hemoglobinuria and myoglobinuria and if red blood cells are present they are quantified by microscopic examination. Performed By: #### 4 6625 #### LAB [address] [place], [place] [address] Ivan Rizvi M.D. [id number] WBC LM.HPF (Urine sed) [#/Area] 1 /[HPF] Normal 0-5 [facility] Comment on above: Order Comment: Micro scopic examination is performed on all urinalysis samples and only positive findings are reported. The test for blood on the chemical analytic portion of urinalysis may also be positive due to hemoglobinuria and myoglobinuria and if red blood cells are present they are quantified by microscopic examination. Performed By: #### 4 6625 #### LAB [address] [place], [place] [address] Ivan Rizvi M.D. [id number] Bacteria identifiedon 2023 Bacteria identified Cx Nom (Bld) Test: Blood Culture Specimen Source: Peripheral Venipuncture Specimen Type: Blood culture Specimen Date: 05/22/20242239 Result Date: 05/27/2024 120 Result Status: Final result Abnormal: No Resulting Lab: [facility] LAB [address] [place] [address] CULTURE No growth at 4 days - FINAL REPORT [facility] Comment on above: Performed By: #### 6 00-7 #### FAISAL Chery ([id number]) [facility] ([facility]) [address] [place] [address] Bacteria identified Cx Nom (Bld) Test: Blood Culture Specimen Source: Peripheral Venipuncture Specimen Type: Blood culture Specimen Date: 05/22/20242235 Result Date: 05/27/2024 1201 Result Status: Final result Abnormal: No Resulting Lab: [facility] [address] [facility] [address] CULTURE No growth at 4 days - FINAL REPORT Normal [facility] Comment on above: Performed By: #### 6 00-7 #### FAISAL Chery ([id number]) [facility] ([facility]) [address] [place] [id number] CBC W Auto Differential pane l (Bld)on 05-22-2024 Basophils (Bld) [#/Vol] 0.05 10*3/uL [facility] Basophils/100 WBC (Bld) 0.5 % 0.0 - 2.0 % [facility] Eosinophils (Bld) [#/Vol] 0.10 10*3/uL [facility] Eosinophils/100 WBC (Bld) 1.0 % 0.0 - 6.0 % [facility] Erythrocyte distribution width (RBC) [Ratio] 14.3 % 11.5 - 14.5 % [facility] Hematocrit (Bld) [Volume fraction] 40.4 % 36.0 - 46.0 % [facility] Hemoglobin (Bld) [Mass/Vol] 13.3 g/dL 12.0 - 16.0 g/dL [facility] Immature granulocytes (Bld) [#/Vol] 0.05 10*3/uL [facility] Immature granulocytes/100 WBC (Bld) 0.5 % 0.0 - 0.9 % [facility] Comment on above: Immature Granulocyte Count (IG) includes promyelocytes, myelocytes and metamyelocytes but does not include bands. Percent differential counts (%) should be interpreted in the context of the absolute cell counts (cells/UL). Interpretation and review of laboratory results Abnormal [facility] Lymphocytes (Bld) [#/Vol] 1.46 10*3/uL [facility] Lymphocytes/100 WBC (Bld) 14.0 % 13.0 - 44.0 % [facility] MCH (RBC) [Entitic mass] 29.2 pg 26.0 - 34.0 pg [facility] MCHC (RBC) [Mass/Vol] 32.9 g/dL 32.0 - 36.0 g/dL [facility] MCV (RBC) [Entitic vol] 89 fL 80 - 100 fL [facility] Monocytes (Bld) [#/Vol] 0.37 10*3/uL [facility] Monocytes/100 WBC (Bld) 3.6 % 2.0 - 10.0 % [facility] Neutrophils (Bld) [#/Vol] 8.39 10*3/uL High [facility] Comment on above: Percent differential counts (%) should be interpreted in the context of the absolute cell counts (cells/uL). Neutrophils/100 WBC (Bld) 80.4 % 40.0 - 80.0 % [facility] Nucleated RBC/100 WBC (Bld) [Ratio] 0.0 % [facility] Platelets (Bld) [#/Vol] 362 10*3/uL [facility] RBC (Bld) [#/Vol] 4.55 10*6/uL [facility] WBC (Bld) [#/Vol] 10.4 10*3/uL [facility] Basophils (Bld) [#/Vol] 0.05 x10*3/uL Normal 0.00-0.10 [facility] Comment on above: Performed By: #### 5 7021-8 #### KARUNA VILLANUEVA ([id number]) [facility] ([facility]) [address] [place] [address] 76025 Basophils/100 WBC (Bld) 0.5 % Normal 0.0-2.0 [facility] Comment on above: Performed By: #### 5 7021-8 #### KARUNA VILLANUEVA ([id number]) [facility] ([facility]) [address] [place] [address] 83525 Eosinophils (Bld) [#/Vol] 0.10 x10*3/uL Normal 0.00-0.70 [facility] Comment on above: Performed By: #### 5 7021-8 #### KARUNA VILLANUEVA ([id number]) [facility] ([facility]) [address] [place] [address] 94949 Eosinophils/100 WBC (Bld) 1.0 % Normal 0.0-6.0 [facility] Comment on above: Performed By: #### 5 7021-8 #### KARUNA VILLANUEVA ([id number]) [facility] ([facility]) [address] [place] [address] 59490 Erythrocyte distribution width (RBC) [Ratio] 14.3 % Normal 11.5-14.5 [facility] Comment on above: Performed By: #### 5 7021-8 #### KARUNA VILLANUEVA ([id number]) [facility] ([facility]) [address] [place] [address] 30614 Hematocrit (Bld) [Volume fraction] 40.4 % Normal 36.0-46.0 [facility] Comment on above: Performed By: #### 5 7021-8 #### KARUNA VILLANUEVA ([id number]) [facility] ([facility]) [address] [place] [address] 79620 Hemoglobin (Bld) [Mass/Vol] 13.3 g/dL Normal 12.0-16.0 [facility] Comment on above: Performed By: #### 5 7021-8 #### KARUNA VILLANUEVA ([id number]) [facility] ([facility]) [address] [place] [address] 09058 Immature granulocytes (Bld) [#/Vol] 0.05 x10*3/uL Normal 0.00-0.70 [facility] Comment on above: Performed By: #### 5 7021-8 #### KARUNA VILLANUEVA ([id number]) [facility] ([facility]) [address] [place] [address] 77889 Immature granulocytes/100 WBC (Bld) 0.5 % Normal 0.0-0.9 [facility] Comment on above: Result Comment: Karen ture Granulocyte Count (IG) includes promyelocytes, myelocytes and metamyelocytes but does not include bands. Percent differential counts (%) should be interpreted in the context of the absolute cell counts (cells/UL). Performed By: #### 5 7021-8 #### KARUNA VILLANUEVA ([id number]) [facility] ([facility]) [address] [place] [address] Lymphocytes (Bld) [#/Vol] 1.46 x10*3/uL Normal 1.20-4.80 [facility] Comment on above: Performed By: #### 7021-8 #### KARUNA VILLANUEVA ([id number]) [facility] ([facility]) [address] [place] [address] Lymphocytes/100 WBC (Bld) 14.0 % Normal 13.0-44.0 [facility] Comment on above: Performed By: #### 5 7021-8 #### KARUNA VILLANUEVA ([id number]) [facility] ([facility]) [address] [place] [address] MCH (RBC) [Entitic mass] 29.2 pg Normal 26.0-34.0 [facility] Comment on above: Performed By: #### 5 7021-8 #### KARUNA VILLANUEVA ([id number]) [facility] ([facility]) [address] [place] [address] MCHC (RBC) [Mass/Vol] 32.9 g/dL Normal 32.0-36.0 [facility] Comment on above: Performed By: #### 5 7021-8 #### KARUNA VILLANUEVA ([id number]) [facility] ([facility]) [address] [place] [address] MCV (RBC) [Entitic vol] 89 fL Normal 80-100 [facility] Comment on above: Performed By: #### 5 7021-8 #### KARUNA IVLLANUEVA ([id number]) [facility] ([facility]) [address] [place] [address] Monocytes (Bld) [#/Vol] 0.37 x10*3/uL Normal 0.10-1.00 [facility] Comment on above: Performed By: #### 5 7021-8 #### KARUNA VILLANUEVA ([id number]) [facility] ([facility]) [address] [place] [address] 49510 Monocytes/100 WBC (Bld) 3.6 % Normal 2.0-10.0 [facility] Comment on above: Performed By: #### 5 7021-8 #### KARUNA VILLANUEVA ([id number]) [facility] ([facility]) [address] [place] [address] 48934 Neutrophils (Bld) [#/Vol] 8.39 x10*3/uL High 1.20-7.70 [facility] Comment on above: Result Comment: Perc ent differential counts (%) should be interpreted in the context of the absolute cell counts (cells/uL). Performed By: #### 5 7021-8 #### KARUNA VILLANUEVA ([id number]) [facility] ([facility]) [address] [place] [address] 08403 Neutrophils/100 WBC (Bld) 80.4 % Normal 40.0-80.0 [facility] Comment on above: Performed By: #### 5 7021-8 #### KARUNA VILLANUEVA ([id number]) [facility] ([facility]) [address] [place] [address] 71420 Nucleated RBC/100 WBC (Bld) [Ratio] 0.0 /100 WBCs Normal 0.0-0.0 [facility] Comment on above: Performed By: #### 5 7021-8 #### KARUNA VILLANUEVA ([id number]) [facility] ([facility]) [address] [place] [address] 12285 Platelets (Bld) [#/Vol] 362 x10*3/uL Normal 150-450 [facility] Comment on above: Performed By: #### 5 7021-8 #### KARUNA VILLANUEVA ([id number]) [facility] ([facility]) [address] [place] [address] 65364 RBC (Bld) [#/Vol] 4.55 x10*6/uL Normal 4.00-5.20 [facility] Comment on above: Performed By: #### 5 7021-8 #### KARUNA RICH ([id number]) [facility] ([facility]) [address] [place] [address] WBC (Bld) [#/Vol] 10.4 x10*3/uL Normal 4.4-11.3 [facility] Comment on above: Performed By: #### 5 7021-8 #### BECKMAN RICH ([id number]) [facility] ([facility]) [address] [place] [address] Comprehensive metabolic 2000 panelon 05-22-2024 Albumin BCP dye [Mass/Vol] 3.8 g/dL 3.4 - 5.0 g/dL [facility] ALP [Catalytic activity/Vol] 61 U/L 33 - 110 U/L [facility] ALT With P-5'-P [Catalytic activity/Vol] 26 U/L 7 - 45 U/L [facility] Comment on above: Patients treated wit h Sulfasalazine may generate falsely decreased results for ALT. Anion gap [Moles/Vol] 13 mmol/L 10 - 2 0 mmol/L [facility] AST With P-5'-P [Catalytic activity/Vol] 15 U/L 9 - 39 U/L [facility] Bilirubin [Mass/Vol] 0.4 mg/dL 0.0 - 1 .2 mg/dL [facility] Calcium [Mass/Vol] 8.7 mg/dL 8.6 - 10. 3 mg/dL [facility] Chloride [Moles/Vol] 104 mmol/L 98 - 10 7 mmol/L [facility] CO2 [Moles/Vol] 25 mmol/L 21 - 32 mmol/L [facility] Creatinine [Mass/Vol] 0.56 mg/dL 0.50 - 1.05 mg/dL [facility] eGFR - PINF [facility] Comment on above: Calculations of sokar mated GFR are performed using the 2020 CKD-EPI Study Refit equation without the race variable for the IDMS-Traceable creatinine methods. https://jasn.asnjournals.org/content//ASN.76010 43157 Glucose [Mass/Vol] 106 mg/dL High 74 - 99 mg/dL [facility] Interpretation and review of laboratory results Abnormal [facility] Potassium [Moles/Vol] 3.0 mmol/L Low 3.5 - 5.3 mmol/L [facility] Protein [Mass/Vol] 7.0 g/dL 6.4 - 8.2 g/dL [facility] Sodium [Moles/Vol] 139 mmol/L 136 - 145 mmol/L [facility] Urea nitrogen [Mass/Vol] 10 mg/dL 6 - 23 mg/dL [facility] Albumin BCP dye [Mass/Vol] 3.8 g/dL Normal 3.4-5.0 [facility] Comment on above: Performed By: #### 2 4323-8 #### KARUNA VILLANUEVA ([id number]) [facility] ([facility]) [address] [place] [address] ALP [Catalytic activity/Vol] 61 U/L Normal 33-110 [facility] Comment on above: Performed By: #### 2 4323-8 #### KARUNA VILLANUEVA ([id number]) [facility] ([facility]) [address] [place] [address] 46227 ALT With P-5'-P [Catalytic activity/Vol] 26 U/L Normal 7-45 [facility] Comment on above: Result Comment: Joy ents treated with Sulfasalazine may generate falsely decreased results for ALT. Performed By: #### 2 4323-8 #### KARUNA VILLANUEVA ([id number]) [facility] ([facility]) [address] [place] [address] 59028 Anion gap [Moles/Vol] 13 mmol/L Normal 10-20 [facility] Comment on above: Performed By: #### 2 4323-8 #### KARUNA VILLANUEVA ([id number]) [facility] ([facility]) [address] [place] [address] 92654 AST With P-5'-P [Catalytic activity/Vol] 15 U/L Normal 9-39 [facility] Comment on above: Performed By: #### 2 4323-8 #### KARUNA VILLANUEVA ([id number]) [facility] ([facility]) [address] [place] [address] Bilirubin [Mass/Vol] 0.4 mg/dL Normal 0.0-1.2 [facility] Comment on above: Performed By: #### 2 4323-8 #### KARUNA VILLANUEVA ([id number]) [facility] ([facility]) [address] [place] [address] Calcium [Mass/Vol] 8.7 mg/dL Normal 8.6-10.3 [facility] Comment on above: Performed By: #### 2 4323-8 #### KARUNA VILLANUEVA ([id number]) [facility] ([facility]) [address] [place] [address] 75689 Chloride [Moles/Vol] 104 mmol/L Normal 98-107 [facility] Comment on above: Performed By: #### 2 4323-8 #### KARUNA VILLANUEVA ([id number]) [facility] ([facility]) [address] [place] [address] 07178 CO2 [Moles/Vol] 25 mmol/L Normal 21-32 [facility] Comment on above: Performed By: #### 2 4323-8 #### KARUNA VILLANUEVA ([id number]) [facility] ([facility]) [facility] [place] [address] Creatinine [Mass/Vol] 0.56 mg/dL Normal 0.50-1.05 [facility] Comment on above: Performed By: #### 2 4323-8 #### KARUNA VILLANUEVA ([id number]) [facility] ([facility]) [address] [place] [address] 63227 GFR/1.73 sq M.predicted MDRD (S/P/Bld) [Vol rate/Area] mL/min/{1.73_m2} Normal >60 [facility] Comment on above: Result Comment: Calc ulations of estimated GFR are performed using the 2020 CKD-EPI Study Refit equation without the race variable for the IDMS-Traceable creatinine methods. https://jasn.asnjournals.org/content/early//ASN.41012 07350 Performed By: #### 2 4323-8 #### KARUNA VILLANUEVA ([id number]) [facility] ([facility]) [address] [place] [address] 41700 Glucose [Mass/Vol] 106 mg/dL High 74-99 [facility] Comment on above: Performed By: #### 2 4323-8 #### KARUNA VILLANUEVA ([id number]) [facility] ([facility]) [address] [place] [address] 19189 Potassium [Moles/Vol] 3.0 mmol/L Low 3.5-5.3 [facility] Comment on above: Performed By: #### 2 4323-8 #### KARUNA VILLANUEVA ([id number]) [facility] ([facility]) [address] [place] [address] 97649 Protein [Mass/Vol] 7.0 g/dL Normal 6.4-8.2 [facility] Comment on above: Performed By: #### 2 4323-8 #### KARUNA VILLANUEVA ([id number]) [facility] ([facility]) [address] [place] [address] 77383 Sodium [Moles/Vol] 139 mmol/L Normal 136-145 [facility] Comment on above: Performed By: #### 2 4323-8 #### KARUNA VILLANUEVA ([id number]) [facility] ([facility]) [address] [place] [address] 27900 Urea nitrogen [Mass/Vol] 10 mg/dL Normal 6-23 [facility] Comment on above: Performed By: #### 2 4323-8 #### KARUNA VILLANUEVA ([id number]) [facility] ([facility]) [address] [place] [address] 42454 ECG 12-LEADon 05-22-2024 ECG 12-LEAD Ventricular Rate 120 Atrial Rate 120 P-R Interval 124 QRS Duration 70 Q-T Interval 346 QTC Calculation(Bazett) 489 P [place] 78 R [place] 65 T [place] 42 QRS Count 19 Q Onset 222 P Onset 160 P Offset 205 T Offset 395 QTC [place] 435 Diagnosis Sinus tachycardia Nonspecific ST abnormality Abnormal ECG No previous ECGs available See ED provider note for full interpretation and clinical correlation Confirmed by Candice Maria ([id number]) on 05/23/2024 2:43:10 PM Normal [facility] Lactateon 05-22-2024 Lactate [Moles/Vol] 2.3 mmol/L High 0.4 - 2. 0 mmol/L [facility] Lactate [Moles/Vol] 2.3 mmol/L High 0.4-2.0 [facility] Comment on above: Order Comment: Venip uncture immediately after or during the administration of Metamizole may lead to falsely low results. Testing should be performed immediately prior to Metamizole dosing. Performed By: #### 2 524-7 #### BECKMAN RICH ([id number]) [facility] ([facility]) [address] [place] [address] Lactate [Moles/Vol]on 2023 Interpretation and review of laboratory results Abnormal [facility] Venipuncture immedia tely after or during the administration of Metamizole may lead to falsely low results. Testing should be performed immediately prior to Metamizole dosing. [facility] XR CHEST 2 VIEWSon XR CHEST 2 VIEWS Interpreted By: Neva Roger, STUDY: XR CHEST 2 VIEWS; 05/22/2024 10:00 pm INDICATION: Signs/Symptoms:pneumonia. COMPARISON: None. ACCESSION NUMBER(S): [id number] ORDERING CLINICIAN: MARIELA SCHULZ FINDINGS: CARDIOMEDIASTINAL SILHOUETTE: Cardiomediastinal silhouette is normal in size and configuration. LUNGS: Increased perihilar opacities may relate to developing interstitial edema. Superimposed infection not excluded. No consolidation, pleural effusion or pneumothorax. ABDOMEN: No remarkable upper abdominal findings. BONES: No acute osseous abnormality. IMPRESSION: Mild increased perihilar opacities suggestive of developing interstitial edema. Superimposed infection not excluded. Clinical correlation and continued short-term follow-up is advised. MACRO: None Signed by: Neva Perdomo 05/22/2024 10:31 PM Dictation workstation: [id number] Normal [facility] XR Chest 2 Viewson Mild increased perih ilar opacities suggestive of developing interstitial edema. Superimposed infection not excluded. Clinical correlation and continued short-term follow-up is advised. MACRO: None Signed by: Neva Perdomo 05/22/2024 10:31 PM Dictation workstation: [id number] Interpreted By: Neva Roger, STUDY: XR CHEST 2 VIEWS; 05/22/2024 10:00 pm INDICATION: Signs/Symptoms:pneumonia. COMPARISON: None. ACCESSION NUMBER(S): [id number] ORDERING CLINICIAN: MARIELA SCHULZ FINDINGS: CARDIOMEDIASTINAL SILHOUETTE: Cardiomediastinal silhouette is normal in size and configuration. LUNGS: Increased perihilar opacities may relate to developing interstitial edema. Superimposed infection not excluded. No consolidation, pleural effusion or pneumothorax. ABDOMEN: No remarkable upper abdominal findings. BONES: No acute osseous abnormality. [facility] Neva Perdomo MD - 05/22/2024 Interpreted By: Neva Perdomo, STUDY: XR CHEST 2 VIEWS; 05/22/2024 10:00 pm INDICATION: Signs/Symptoms:pneumonia. COMPARISON: None. ACCESSION NUMBER(S): [id number] ORDERING CLINICIAN: MARIELA SCHULZ FINDINGS: CARDIOMEDIASTINAL SILHOUETTE: Cardiomediastinal silhouette is normal in size and configuration. LUNGS: Increased perihilar opacities may relate to developing interstitial edema. Superimposed infection not excluded. No consolidation, pleural effusion or pneumothorax. ABDOMEN: No remarkable upper abdominal findings. BONES: No acute osseous abnormality. IMPRESSION: Mild increased perihilar opacities suggestive of developing interstitial edema. Superimposed infection not excluded. Clinical correlation and continued short-term follow-up is advised. MACRO: None Signed by: Neva Perdomo 05/22/2024 10:31 PM Dictation workstation: [id number] [facility] Work Phone: Radiology Study observation (narrative) [facility] Work Phone: XR Chest 2 ViewsOrdered By: Neva Perdomo on 05-22-2024 [facility] Work Phone: COVID-19, MOLECULARon 2023 SARS-CoV-2 (COVID-19) Ab IA Ql Not detected Normal Not Detected [facility] Comment on above: Result Comment: Test ing was performed using the Sen ID NOW COVID-19 assay on the ID NOW platform. This test has not been approved for use in asymptomatic patients and its performance in this patient population has not been evaluated. Negative results do not rule out the presence of SARS-CoV-2/COVID-19. CT PULMONARY ARTERIESon CT PULMONARY ARTERIES EXAMINATION: CT PULMONARY ARTERIES HISTORY: ORDERING SYSTEM PROVIDED HISTORY: Pulmonary embolism (PE) suspected, high prob; Pulmonary embolism (PE) suspected, low to intermediate prob, positive D-dimer, TECHNOLOGIST PROVIDED HISTORY: Illness/Other Reason for exam: cough x2 weeks, elevated d-dimer Encounter Type: Initial Additional signs and symptoms: none ORDERING SYSTEM PROVIDED DIAGNOSIS CODES: E87.6 Hypokalemia COMPARISON: None TECHNIQUE: CT angiography of the pulmonary arteries following the administration of intravenous contrast. Coronal and sagittal MIP images were performed. Dose reduction techniques were achieved by using automated exposure control and/or adjustment of mA and/or kV according to patient size and/or use of iterative reconstruction technique. CONTRAST: IOPAMIDOL 370 MG IODINE/ML (76 %) INTRAVENOUS SOLUTION - 75 mL, FINDINGS: Pulmonary arteries: There is good opacification of the pulmonary vasculature. No abnormal vascular cut-offs or filing defects to suggest presence of pulmonary emboli. Mediastinum: Trachea and central airways are patent. Thoracic aorta is normal caliber. Heart is normal in size without pericardial effusion. No mediastinal or hilar lymphadenopathy. Pleural cavity: No pneumothorax. No pleural effusion. Lungs: A ground-glass alveolar pattern of infiltrates throughout the right lower lobe more focal area posterior aspect superior segment right lower lobe with some subtle similar changes at base of right middle lobe. Suspected acute pneumonia. Left lung is clear stranded. No focal mass or nodule. Chest wall/axilla: No axillary lymphadenopathy. Visualized upper abdomen: No acute findings. Osseous structures: Normal for age. IMPRESSION: Acute right lung pneumonia mostly in the right lower lobe with some minor involvement at base of right middle lobe. Query bacterial versus atypical infection. Correlate with laboratory assessment and symptoms. Follow-up chest x-ray 10 14 days of treatment to ensure resolution. More focal consolidation superior segment right lower lobe. Negative for acute PE. Workstation ID: [id number] Dictated by: INES CHING on WedMay 15, 2024 12:30:53 AM EDT Transcribed by: INES CHING on WedMay 15, 2024 12:30:53 AM EDT Finalized by: INES CHING on WedMay 15, 2024 12:30:53 AM EDT [facility] Comment on above: Order Comment: Injur y/Trauma or Illness?:Illness/Other How long have you had these symptoms (acute/chronic)?:Acute Reason for exam?:cough x2 weeks, elevated d-dimer Type of Exam?:Initial Additional signs and symptoms?:none ED Prov Noteon 05-14-2024 ED Prov Note ED PROVIDER NOTE [facility] EM[facility] NAME: Shauna Rainey AGE: 28 y.o. : 1995 VISIT DATE: 05/14/2024 CSN: [id number] PCP: Kinjal Cleveland MD Chief Complaint Patient presents with Cough Patient is a 28-year-old female with a past medical history mononucleosis who presented for concern of cough. Patient states last 2 weeks she has had a dry cough without any production of sputum which is worse with deep breathing and exertion. Patient denies previous history of DVT/PE, abdominal pain, back pain, chest pain but does admit to intermittent episodes of shortness of breath. Patient admits to exertional symptoms. Patient admits to sick contacts. Patient states she has had a low-grade fever recently. Patient been eating and drinking normally Past Medical History: Diagnosis Date Mononucleosis 12/13/2014 Past Surgical History: Procedure Laterality Date SECTION, CLASSIC 12/01/2016, 05/11/2019, 01/17/2021 Family History Problem Relation Age of Onset Diverticulitis Mother Chronic bronchitis Father BAYLEE disease Father No Known Problems Maternal Grandmother No Known Problems Maternal Grandfather No Known Problems Paternal Grandmother No Known Problems Paternal Grandfather Social History Socioeconomic History Marital status: Occupational History Occupation: stay at home Tobacco Use Smoking status: Never Smokeless tobacco: Never Substance and Sexual Activity Alcohol use: No Drug use: No Sexual activity: Yes Partners: Male Social Determinants of Health Financial Resource Strain: Low Risk (07/04/2021) Overall Financial Resource Strain (CARDIA) Difficulty of Paying Living Expenses: Not hard at all Food Insecurity: No Food Insecurity (07/04/2021) Hunger Vital Sign Worried About Running Out of Food in the Last Year: Never true Ran Out of Food in the Last Year: Never true Transportation Needs: No Transportation Needs (07/04/2021) PRAPARE - Transportation Lack of Transportation (Medical): No Lack of Transportation (Non-Medical): No Social Connections: Unknown (07/04/2021) Social Connection and Isolation Panel [NHANES] Frequency of Social Gatherings with Friends and Family: Twice a week Previous Medications Medication Sig escitalopram oxalate (LEXAPRO) 20 MG tablet Take 1 (one) tablet (20 mg total) by mouth daily . (Patient not taking: Reported on 05/14/2024 .) No Known Allergies Review of Systems Constitutional: Positive for fatigue. Negative for chills and fever. Eyes: Negative for pain. Respiratory: Positive for cough, chest tightness and shortness of breath. Cardiovascular: Negative for chest pain and palpitations. Gastrointestinal: Negative for abdominal pain, nausea and vomiting. Genitourinary: Negative for flank pain. Musculoskeletal: Positive for arthralgias and myalgias. Skin: Negative for rash. Neurological: Negative for dizziness, syncope, light-headedness and headaches. Psychiatric/Behavioral: Negative for agitation. All other systems reviewed and are negative. No data found. Physical Exam Vitals and nursing note reviewed. Constitutional: Appearance: Normal appearance. HENT: Head: Normocephalic. Nose: Congestion and rhinorrhea present. Eyes: Pupils: Pupils are equal, round, and reactive to light. Cardiovascular: Rate and Rhythm: Regular rhythm. Tachycardia present. Pulses: Normal pulses. Heart sounds: Normal heart sounds. Musculoskeletal: Cervical back: Normal range of motion. Pulmonary: Effort: Pulmonary effort is normal. No respiratory distress. Breath sounds: Normal breath sounds. No wheezing or rales. Abdominal: General: Abdomen is flat. There is no distension. Tenderness: There is no abdominal tenderness. There is no guarding. Skin: General: Skin is warm. Capillary Refill: Capillary refill takes less than 2 seconds. Neurological: General: No focal deficit present. Mental Status: She is alert. Psychiatric: Mood and Affect: Mood normal. Laboratory & Radiographic Imaging (if done): Results for orders placed or performed during the hospital encounter of 05/14/24 POC CBC and Differential Result Value Ref Range WBC 7.07 4.50 - 11.00 K/mcL RBC 4.52 4.00 - 5.20 M/mcL Hemoglobin 13.0 12.0 - 16.0 g/dL Hematocrit 39.0 36.0 - 46.0 % MCV 86.3 80.0 - 100.0 fL MCH 28.8 26.0 - 34.0 pg MCHC 33.3 31.0 - 37.0 g/dL RDW - CV 13.5 11.6 - 14.8 % Platelets 283 150 - 400 K/mcL MPV 9.1 (L) 9.4 - 12.4 fL Neutrophils 76.9 % Lymphocytes 15.8 % Monocytes 4.1 % Eosinophils 3.0 % Basophils 0.1 % IG Percent 0.10 % Neutrophils Abs 5.43 1.70 - 7.00 K/mcL Lymphocytes Abs 1.12 0.90 - 4.00 K/mcL Monocytes Abs 0.29 (L) 0.30 - 0.90 K/mcL Eosinophils Abs 0.21 0.00 - 0.50 K/mcL Basophils Abs 0.01 0.00 - 0.30 K/mcL IG Absolute 0.01 0.00 - 0.30 K/mcL COVID-19, Molecular Specimen: Nasopharyngeal; Swab Result Value Ref Range S (more content not included)... Normal [facility] POC BASIC METABOLIC PANEL - Jerardo 05-14-2024 Chloride [Moles/Vol] 102 mmol/L Normal 98-108 [facility] Comment on above: Order Comment: [facility] has implemented the eGFR calculation approach that does not have a coefficient for race that conforms to the NKF-ASN Task Force Recommendations. CO2 [Moles/Vol] 26 mmol/L Normal 21-32 [facility] Comment on above: Order Comment: [facility] has implemented the eGFR calculation approach that does not have a coefficient for race that conforms to the NKF-ASN Task Force Recommendations. Creatinine [Mass/Vol] 0.58 mg/dL Normal 0.40-1.10 [facility] Comment on above: Order Comment: [facility] has implemented the eGFR calculation approach that does not have a coefficient for race that conforms to the NKF-ASN Task Force Recommendations. Glucose [Mass/Vol] 156 mg/dL High 65-99 [facility] Comment on above: Order Comment: [facility] has implemented the eGFR calculation approach that does not have a coefficient for race that conforms to the NKF-ASN Task Force Recommendations. POC GFR 127 mL/min/1.73 m2 Normal >=60 [facility] Comment on above: Order Comment: [facility] has implemented the eGFR calculation approach that does not have a coefficient for race that conforms to the NKF-ASN Task Force Recommendations. Result Comment: Oskar mated GFR was calculated using the 2020 CKD-EPI creatinine equation. POC IONIZED CALCIUM 4.5 mg/dL Normal 4.5-5.3 [facility] Comment on above: Order Comment: [facility] has implemented the eGFR calculation approach that does not have a coefficient for race that conforms to the NKF-ASN Task Force Recommendations. Potassium [Moles/Vol] 3.0 mmol/L Low 3.5-5.1 [facility] Comment on above: Order Comment: [facility] has implemented the eGFR calculation approach that does not have a coefficient for race that conforms to the NKF-ASN Task Force Recommendations. Sodium [Moles/Vol] 141 mmol/L Normal 135-145 [facility] Comment on above: Order Comment: [facility] has implemented the eGFR calculation approach that does not have a coefficient for race that conforms to the NKF-ASN Task Force Recommendations. Urea nitrogen [Mass/Vol] 5 mg/dL Low 8-25 [facility] Comment on above: Order Comment: [facility] has implemented the eGFR calculation approach that does not have a coefficient for race that conforms to the NKF-ASN Task Force Recommendations. POC CBC AND DIFFERENTIALon 1 BASOPHILS ABSOLUTE COUNT 0.01 K/mcL Normal 0.00-0.30 [facility] Basophils/100 WBC (Bld) 0.1 % Normal [facility] Eosinophils (Bld) [#/Vol] 0.21 10*3/uL Normal 0.00-0.50 [facility] Eosinophils/100 WBC (Bld) 3.0 % Normal [facility] Erythrocyte distribution width (RBC) [Ratio] 13.5 % Normal 11.6-14.8 [facility] Hematocrit (Bld) [Volume fraction] 39.0 % Normal 36.0-46.0 [facility] Hemoglobin (Bld) [Mass/Vol] 13.0 g/dL Normal 12.0-16.0 [facility] IG ABSOLUTE 0.01 K/mcL Normal 0.00-0.30 [facility] IG PERCENT 0.10 % Normal [facility] Comment on above: Result Comment: The IG parameter is the percentage of metamyelocytes, myelocytes and promyelocytes. An immature granulocyte count (IG) of 1% or more suggests the possibility of infection, an IG count of 3% is very likely related to an infection. Lymphocytes (Bld) [#/Vol] 1.12 10*3/uL Normal 0.90-4.00 [facility] Lymphocytes/100 WBC (Bld) 15.8 % Normal [facility] MCH (RBC) [Entitic mass] 28.8 pg Normal 26.0-34.0 [facility] MCV (RBC) [Entitic vol] 86.3 fL Normal 80.0-100.0 [facility] MEAN CORPUSCULAR HEMOGLOBIN CONC 33.3 g/dL Normal 31.0-37.0 [facility] Monocytes (Bld) [#/Vol] 0.29 10*3/uL Low 0.30-0.90 [facility] Monocytes/100 WBC (Bld) 4.1 % Normal [facility] NEUTROPHILS ABSOLUTE COUNT 5.43 K/mcL Normal 1.70-7.00 [facility] Neutrophils/100 WBC (Bld) 76.9 % Normal [facility] Platelet mean volume (Bld) [Entitic vol] 9.1 fL Low 9.4-12.4 [facility] Platelets (Bld) [#/Vol] 283 10*3/uL Normal 150-400 [facility] RBC (Bld) [#/Vol] 4.52 10*6/uL Normal 4.00-5.20 [facility] WBC (Bld) [#/Vol] 7.07 10*3/uL Normal 4.50-11.00 [facility] POC D-DIMER Jerardo 4 POC D-DIMER 1230 ng/mL DDU High <350 [facility] Comment on above: Order Comment: A D-D mirian concentration of <350 ng/mL DDU is considered a low probability for pulmonary embolism (PE) and deep venous thrombosis (DVT). Results of this test should always be interpreted in conjunction with the patient's medical history, clinical presentation, and other findings. Clinical diagnosis should not be based on the results of the D-dimer alone. The above D-dimer cutoff pertains to its use for the exclusion of DVT or PE. The range associated with other clinical conditions (e.g. sepsis) has not been validated for this method. 90% of normal patients are less than 400 ng/ml. POC INFLUENZA A/B - [facility] 1 POC INFLUENZA A (FSED) Not detected Normal Not Detected [facility] POC INFLUENZA B (FSED) Not detected Normal Not Detected [facility] POC TROPONIN I [facility] 2023 POC TROPONIN I < Normal <0.05 [facility] XR CHEST PA/APon 05-14-2024 XR CHEST PA/AP EXAMINATION: XR CHEST PA/AP 05/14/2024 9:32 pm HISTORY: ORDERING SYSTEM PROVIDED HISTORY: cough, TECHNOLOGIST PROVIDED HISTORY: Illness/Other Reason for exam: fever and cough x2 weeks Cancer History: u Surgery, RadiationHistory: u Encounter Type: Initial Additional signs and symptoms: none ORDERING SYSTEM PROVIDED DIAGNOSIS CODES: COMPARISON: None FINDINGS: Trachea, mediastinum and heart size are unremarkable. Diaphragm and bony elements are intact. Mild bronchial wall thickening is noted centrally. Nbyp-uj-rpernigl haziness is noted bilaterally suggestive of moderate pneumonitis. IMPRESSION: 1. Moderate haziness bilaterally suggestive of pneumonitis. 2. Wfhp-fg-ysflrqnl bilateral perihilar bronchitis. Workstation ID: [id number] Dictated by: RINA MURDOCK on [place] May 14, 2024 11:02:28 PM EDT Transcribed by: RINA MURDOCK on [place] May 14, 2024 11:02:28 PM EDT Finalized by: RINA MURDOCK on [place] May 14, 2024 11:02:28 PM EDT Normal [facility] Comment on above: Order Comment: Injur y/Trauma or Illness?:Illness/Other How long have you had these symptoms (acute/chronic)?:Acute Reason for exam?:fever and cough x2 weeks History of cancer?:u Surgeries, chemotherapy, or radiation?:u Type of Exam?:Initial Additional signs and symptoms?:none LG Jt Injection/Arthrocentes is: Vik mccain 07-21-2021 Era Giordano CNP 07/21/2021 8:35 PM LG Jt Injection/Arthrocentesis: L glenohumeral Performed by: Era Giordano CNP Authorized by: Era Giordano CNP CPT 02150 - Large Joint Arthrocentesis: Consent given by: Patient Time out: Immediately prior to the procedure a time out was called Physician or proceduralist has discussed critical or nonroutine steps, procedure duration and anticipated blood loss: Yes Supporting Documentation: Indications: Pain and diagnostic evaluation Procedure Details: Location: Shoulder Site: L glenohumeral Prep: patient was prepped and draped in usual sterile fashion Needle size: 22 G Approach: Posterior Medications: 40 mg triamcinolone acetonide 40 mg/mL Anesthetic used: Lidocaine 1% Anesthetic amount (mL): 2 Patient tolerance: Patient tolerated the procedure well with no immediate complications [facility] CULTURE URINEon 01-18-2021 CULTURE URINE CULTURE URINE --> St atus: F Normal urogenital jennie present. Normal [facility] Comment on above: Performed By: #### C /UR #### [address] [address] Hemoglobinon 01-18-2021 Hemoglobin (Bld) [Mass/Vol] 7.4 g/dL Low 11.7-16.0 [facility] Comment on above: Performed By: #### H EMGB #### [address] [address] HemoglobinOrdered By: Drea Senior on 01-18-2021 Hemoglobin.gastrointes tinal spec 1 Ql (Stl) 7.4 g/dL Low 11.7 - 16.0 g/dL [facility] Work Phone: Interpretation and review of laboratory results Abnormal [facility] Work Phone: Test Performed by [id number] [place] [address] Work Phone: [facility] Work Phone: CR Abdomen APon 01-17-2021 CR Abdomen AP Patient Name: SHAUNA RAINEY Diagnostic Radiology ACCESSION EXAM DATE/TIME PROCEDURE ORDERING PROVIDER [id number] 01/17/2021 02:10 EDT CR Abdomen AP [id number] -SURI ESTRADA CPT code 13020 Reason For Exam (CR Abdomen AP) s/p Emergent Section to evaluate for any retained sponges Report SUPINE ABDOMEN (KUB) CLINICAL INDICATION: Emergency section. Evaluate for retained sponges. A supine plain film of the abdomen was obtained. COMPARISON: None FINDINGS: The bowel demonstrates a normal gas pattern. Free air under the diaphragm cannot be adequately assessed on this single, supine view. Upright or decubitus films may be obtained if clinically warranted. No pathologic calcifications are identified. Visualized bony structures are grossly unremarkable. IMPRESSION: No evidence of retained radiopaque foreign body is identified within the abdomen or pelvis. Normal bowel gas pattern. Report Dictated on Workstation: [employer] Final Dictated: 01/17/2021 2:09 am Dictating Physician: MD LEAL JONATHAN R Signed Date and Time: 01/17/2021 2:10 am Signed by: MD LEAL JONATHAN R Transcribed Date and Time: 01/17/2021 2:09 Normal [facility] Comp Metabolic Panelon 01-17 ALP [Catalytic activity/Vol] 128 U/L High 38-126 [facility] Comment on above: Performed By: #### C MP3, HEMOG #### [address] [phone] ALT [Catalytic activity/Vol] 11 U/L Normal 0-34 [facility] Comment on above: Result Comment: The ALT test is performed by an updated assay method. Please note that the reference intervals have been changed and are now sex specific. Performed By: #### C MP3, HEMOG #### [facility] [address] [place] [address] Calcium [Mass/Vol] 9.5 mg/dL Normal 8.4-10.4 [facility] Comment on above: Performed By: #### C MP3, HEMOG #### [facility] [address] [place] [address] Glucose [Mass/Vol] 75 mg/dL Normal 70-100 [facility] Comment on above: Performed By: #### C MP3, HEMOG #### [facility] [address] [place], [place] Protein [Mass/Vol] 6.7 g/dL Normal 6.3-8.2 [facility] Comment on above: Performed By: #### C MP3, HEMOG #### [facility] [address] [place], [place] Urea nitrogen [Mass/Vol] 10 mg/dL Normal 7-20 [facility] Comment on above: Performed By: #### C MP3, HEMOG #### [facility] [address], [place] Anion gap [Moles/Vol] 5 mmol/L Normal 3-13 [facility] Comment on above: Performed By: #### C MP3, HEMOG #### [facility] [address], [place] AST [Catalytic activity/Vol] 26 U/L Normal 15-46 [facility] Comment on above: Performed By: #### C MP3, HEMOG #### [facility] [address], [place] Bilirubin [Mass/Vol] 0.5 mg/dL Normal 0.2-1.3 [facility] Comment on above: Performed By: #### C MP3, HEMOG #### [facility] [address], [place] CO2 [Moles/Vol] 20 mmol/L Low 22-30 [facility] Comment on above: Performed By: #### C MP3, HEMOG #### [facility] [address], [place] Creatinine [Mass/Vol] 0.40 mg/dL Low 0.52-1.25 [facility] Comment on above: Performed By: #### C MP3, HEMOG #### [facility] [address], [place] eGFR OTHER > 90.0 Normal >60 [facility] Comment on above: Result Comment: KDIG O guidelines provide the following GFR categories: Stage GFR(ml/min/1.73 m2) Terms G1 >=90 Normal or high G2 60-89 Mildly decreased* G3a 45-59 Mildly to moderately decreased G3b 30-44 Moderately to severely decreased G4 15-29 Severely decreased G5 <15 Kidney failure *Relative to young adult level. In the absence of evidence of kidney damage, neither GFR category G1 nor G2 fulfill the criteria for CKD. The CKD-EPI equation is validated in individuals 18 years of age and older. Currently the best equation for estimating glomerular filtration rate (GFR) from serum creatinine in children is the Bedside Lynch equation. It is less accurate in patients with extremes of muscle mass, restriction of dietary protein, ingestion of creatine, extra-renal metabolism of creatinine, or treatment with medications that affect renal tubular creatinine secretion. Performed By: #### C MP3, HEMOG #### [address] GFR/1.73 sq M.predicted among blacks MDRD (S/P/Bld) [Vol rate/Area] mL/min/{1.73_m2} Normal >60 [facility] Comment on above: Performed By: #### C MP3, HEMOG #### [address] Chloride [Moles/Vol] 107 mmol/L Normal 98-107 [facility] Comment on above: Performed By: #### C MP3, HEMOG #### [address] Potassium [Moles/Vol] 3.5 mmol/L Normal 3.5-5.1 [facility] Comment on above: Performed By: #### C MP3, HEMOG #### [address] Sodium [Moles/Vol] 133 mmol/L Low 135-145 [facility] Comment on above: Performed By: #### C MP3, HEMOG #### [address] Albumin [Mass/Vol] 3.5 g/dL Normal 3.5-5.0 [facility] Comment on above: Performed By: #### C MP3, HEMOG #### [address] Culture, UrineOrdered By: Leslie Estrada on 01-17-2021 Bacteria identified Cx Nom (U) Normal urogenital jennie present. [facility] Work Phone: Test Performed by [facility], [place] [address] [facility] Work Phone: [facility] [place] Work Phone: Hemogramon 01-17-2021 Erythrocyte distribution width (RBC) [Ratio] 15.6 % High 11.5-14.5 [facility] Comment on above: Performed By: #### C MP3, HEMOG #### [place] [address] [place], [place] Hematocrit (Bld) [Volume fraction] 32.6 % Low 35.0-47.0 [facility] Comment on above: Performed By: #### C MP3, HEMOG #### [address] [address] [place], [place] Hemoglobin (Bld) [Mass/Vol] 10.9 g/dL Low 11.7-16.0 [facility] Comment on above: Performed By: #### C MP3, HEMOG #### [address] MCH (RBC) [Entitic mass] 26.7 pg Normal 26.0-34.0 [facility] Comment on above: Performed By: #### C MP3, HEMOG #### [address] [place] [address] [place], [place] MCHC 33.4 % Normal 32.0-36.0 [facility] Comment on above: Performed By: #### C MP3, HEMOG #### [address] MCV (RBC) [Entitic vol] 79.9 fL Normal 79.0-98.0 [facility] Comment on above: Performed By: #### C MP3, HEMOG #### [address] [phone] Platelet mean volume (Bld) [Entitic vol] 9.7 fL Normal 7.4-10.4 [facility] Comment on above: Performed By: #### C MP3, HEMOG #### [address] [place] [address] Platelets (Bld) [#/Vol] 152 10*3/uL Normal 140-440 [facility] Comment on above: Performed By: #### C MP3, HEMOG #### [facility] [address] [place] [address] RBC (Bld) [#/Vol] 4.08 10*6/uL Normal 3.80-5.20 [facility] Comment on above: Performed By: #### C MP3, HEMOG #### [facility] [address] [place] [address] WBC (Bld) [#/Vol] 8.1 10*3/uL Normal 3.6-10.7 [facility] Comment on above: Performed By: #### C MP3, HEMOG #### [address] [address] TS GELon 01-17-2021 TS GEL ABO Group: A Rh, Gel: POS Antibody Screen Gel: NEG Normal [facility] Comment on above: Performed By: #### T SGL #### [facility] XR ABDOMEN (KUB) (SINGLE AP VIEW)Ordered By: Suri Estrada on 01-17-2021 Patient Name: SHAUNA RAINEY Diagnostic Radiology ACCESSION EXAM DATE/TIME PROCEDURE ORDERING PROVIDER [id number] 01/17/2021 02:10 EDT CR Abdomen AP [id number] -SURI ESTRADA CPT code 30173 Reason For Exam (CR Abdomen AP) s/p Emergent Section to evaluate for any retained sponges Report SUPINE ABDOMEN (KUB) CLINICAL INDICATION: Emergency section. Evaluate for retained sponges. A supine plain film of the abdomen was obtained. COMPARISON: None FINDINGS: The bowel demonstrates a normal gas pattern. Free air under the diaphragm cannot be adequately assessed on this single, supine view. Upright or decubitus films may be obtained if clinically warranted. No pathologic calcifications are identified. Visualized bony structures are grossly unremarkable. IMPRESSION: No evidence of retained radiopaque foreign body is identified within the abdomen or pelvis. Normal bowel gas pattern. Report Dictated on Workstation: [employer] --- Final --- Dictated: 01/17/2021 2:09 am Dictating Physician: MD LEAL JONATHAN R Signed Date and Time: 01/17/2021 2:10 am Signed by: MD LEAL JONATHAN R Transcribed Date and Time: 01/17/2021 2:09 [facility] Work Phone: [place] Incoming Radiology Results From [facility] - 01/17/2021 2:11 AM EDT Patient Name: SHAUNA RAINEY Diagnostic Radiology ACCESSION EXAM DATE/TIME PROCEDURE ORDERING PROVIDER [id number] 01/17/2021 02:10 EDT CR Abdomen AP [id number] -SURI ESTRADA CPT code 57886 Reason For Exam (CR Abdomen AP) s/p Emergent Section to evaluate for any retained sponges Report SUPINE ABDOMEN (KUB) CLINICAL INDICATION: Emergency section. Evaluate for retained sponges. A supine plain film of the abdomen was obtained. COMPARISON: None FINDINGS: The bowel demonstrates a normal gas pattern. Free air under the diaphragm cannot be adequately assessed on this single, supine view. Upright or decubitus films may be obtained if clinically warranted. No pathologic calcifications are identified. Visualized bony structures are grossly unremarkable. IMPRESSION: No evidence of retained radiopaque foreign body is identified within the abdomen or pelvis. Normal bowel gas pattern. Report Dictated on Workstation: [employer] --- Final --- Dictated: 01/17/2021 2:09 am Dictating Physician: MD LEAL JONATHAN R Signed Date and Time: 01/17/2021 2:10 am Signed by: MD LEAL JONATHAN R Transcribed Date and Time: 01/17/2021 2:09 [facility] Work Phone: [facility] Work Phone: CBCOrdered By: Suri benavides on 01-16-2021 Hematocrit (Bld) [Volume fraction] 32.6 % Low 35.0 - 47.0 % [facility] Work Phone: Hemoglobin.gastrointes tinal spec 1 Ql (Stl) 10.9 g/dL Low 11.7 - 16.0 g/dL [facility] Work Phone: ) Interpretation and review of laboratory results Abnormal [employer] Work Phone: MCH (RBC) [Entitic mass] 26.7 pg 26.0 - 34.0 pg [facility] Work Phone: MCHC (RBC) [Mass/Vol] 33.4 % 32.0 - 36.0 % [facility] Work Phone: MCV (RBC) [Entitic vol] 79.9 fL 79.0 - 98.0 fL [employer] Work Phone: Platelet distribution width (Bld) [Ratio] 15.6 % High 11.5 - 14.5 % [facility] Work Phone: Platelet mean volume (Bld) [Entitic vol] 9.7 fL 7.4 - 10.4 fL [facility] Work Phone: Platelets (Bld) [#/Vol] 152 10*3/uL 140 - 440 10*3/uL [facility] Work Phone: RBC (Bld) [#/Vol] 4.08 10*6/uL 3.80 - 5.2 0 10*6/uL [facility] Work Phone: WBC (Bld) [#/Vol] 8.1 10*3/uL 3.6 - 10.7 10*3/uL [facility] Work Phone: Test Performed by [facility], [address] [place] [address] [facility] Work Phone: [facility] Work Phone: Comprehensive Metabolic Pane lOrdered By: Suri Estrada on 01-16-2021 Albumin [Mass/Vol] 3.5 g/dL 3.5 - 5.0 g/dL [employer] Work Phone: [phone] ALP (Bld) [Catalytic activity/Vol] 128 U/L High 38 - 126 U/L [facility] Work Phone: [phone] ALT [Catalytic activity/Vol] 11 U/L 0 - 34 U/L [facility] Work Phone: [phone] Comment on above: The ALT test is perf ormed by an updated assay method. Please note that the reference intervals have been changed and are now sex specific. Anion gap [Moles/Vol] 5 mmol/L 3 - 13 mmol/L [facility] Work Phone: [phone] AST [Catalytic activity/Vol] 26 U/L 15 - 46 U/L [facility] Work Phone: [phone] Bilirubin [Mass/Vol] 0.5 mg/dL 0.2 - 1 .3 mg/dL [facility] Work Phone: [phone] Calcium [Mass/Vol] 9.5 mg/dL 8.4 - 10. 4 mg/dL [facility] Work Phone: [phone] Chloride [Moles/Vol] 107 mmol/L 98 - 10 7 mmol/L [facility] Work Phone: [phone] CO2 [Moles/Vol] 20 mmol/L Low 22 - 30 mmol/L [facility] Work Phone: [phone] Creatinine [Mass/Vol] 0.4 mg/dL Low 0.52 - 1.25 mg/dL [facility] Work Phone: [phone] EGFR IF NonAfrican Thai >90.0 >60 mL/min [facility] Work Phone: [phone] Comment on above: KDIGO guidelines pro vide the following GFR categories: Stage GFR(ml/min/1.73 m2) Terms G1 >=90 Normal or high G2 60-89 Mildly decreased* G3a 45-59 Mildly to moderately decreased G3b 30-44 Moderately to severely decreased G4 15-29 Severely decreased G5 <15 Kidney failure *Relative to young adult level. In the absence of evidence of kidney damage, neither GFR category G1 nor G2 fulfill the criteria for CKD. The CKD-EPI equation is validated in individuals 18 years of age and older. Currently the best equation for estimating glomerular filtration rate (GFR) from serum creatinine in children is the Bedside Lynch equation. It is less accurate in patients with extremes of muscle mass, restriction of dietary protein, ingestion of creatine, extra-renal metabolism of creatinine, or treatment with medications that affect renal tubular creatinine secretion. Free PSA/Total PSA [Mass fraction] 6.7 g/dL 6.3 - 8.2 g/dL [facility] Work Phone: GFR/1.73 sq M.predicted among blacks MDRD (S/P/Bld) [Vol rate/Area] mL/min/{1.73_m2} >60 mL/min [facility] Work Phone: Glucose [Mass/Vol] 75 mg/dL 70 - 100 mg/dL [facility] Work Phone: Interpretation and review of laboratory results Abnormal [facility] Work Phone: Potassium [Moles/Vol] 3.5 mmol/L 3.5 - 5.1 mmol/L [facility] Work Phone: Sodium [Moles/Vol] 133 mmol/L Low 135 - 145 mmol/L [facility] Work Phone: Urea nitrogen (BldV) [Mass/Vol] 10 mg/dL 7 - 20 mg/dL [facility] Work Phone: Test Performed by [facility], [address] [place] [id number] [facility] Work Phone: [facility] Work Phone: MRI (SINGLE)on 021 MRI (SINGLE) CLINICAL HISTORY: Umbilical vein varix with thrombus TECHNIQUE: Multiplanar, multisequence MRI of the fetus was performed without contrast on a 1.5 Vandana system. FINDINGS: Estimated gestational age at time of MRI is 33 weeks 4 days per M consult note dated 01/15/2021. Maternal incidental findings: None. Cervix: The cervix is closed and measures 4.1 cm. Placenta: The placenta is anterior and free from the cervical os. Cord: There is a 3 vessel umbilical cord inserting normally on the placenta. Umbilical cord is hypercoiled. There is confirmation of dilatation of the intra-abdominal component of the umbilical vein up to 1.6 cm just after it enters the abdomen. Irregular increased T2 signal within the umbilical vein varix is concerning for thrombus (images 33-34 series 501), however this is more difficult to see on the BTFE sequences where there is only subtle heterogeeity at this site (image 22, series 1101). At the current time this increased T2 signal is focal to the varix and not seen in the more proximal umbilical vein as it extends towards the liver. However, the umbilical vein remains prominent in size throughout the abdomen. Amniotic fluid: Grossly normal. lie: Current lie is cephalic Supratentorial brain: Sulcation is within normal variation for stated gestational age. Corpus callosum is present. The lateral ventricles measure 7 mm on the left and 10-11 mm on the right. 11 mm is mildly enlarged. Posterior Fossa: Brainstem and cerebellum, including the vermis, have a normal appearance. Transverse cerebellar measurement is 41 mm and tegmento-vermian angle is near zero degrees, both of which are normal. Vermis measures 19 mm in the craniocaudal dimension. Craniocervical junction: No Chiari malformation. Globes: Symmetric. Ocular distance 14 mm, normal. Binocular distance 48 mm, normal. Interocular distance 19 mm, normal. Spine: No identifiable neural tube defect. Body: Situs: Normal. Organs: Lungs have normal signal characteristics. Stomach, gallbladder, kidneys and urinary bladder seen with normal appearance. No bowel dilatation. Meconium is seen to the level of the rectum. Extremities: Grossly unremarkable, but better evaluated with ultrasound. IMPRESSION: 1. 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 2. Borderline the right lateral ventricular enlargement measuring between 10 and 11 mm. Please continue to assess to document stability. This report has been created using voice recognition software Signed by: Dr. Hermila Kevin at 01/16/2021 11:05 Normal [facility] TYPE AND SCREENOrdered By: Vik Estrada on 01-16-2021 ABO Grouping A [facility] Work Phone: Rh Type Positive [facility] Work Phone: Test Performed by [facility], [address] [place] [id number] [facility] Work Phone: [facility] Work Phone: Progress Noteon 01-15-2021 Fell Cutter Authentication Interface Message Text Maternal Medicine Consult Date of Service: 01/15/2021 Referring Provider: Brigid Pitts Primary Care Provider: Jennifer Primary Care, MD Samuel Reason for Consult: Dr. Brigid Pitts requests that Shauna be evaluated due to aneurysm noted on ultrasound. Shauna is a 25 y.o. at 33 weeks and 3 days who presents for evaluation of aneurysm. HPI The patient offers no complaints. She reports good activity and had a reassuring BPP (03/16) at OB office 2 days ago at which time superior to the bladder a 1.7 x 1.5 x 1.6 cm completely vascularized structure that appears to communicate with the single umbilical artery and portal vein. OB History Para Term AB Living 3 2 2 0 0 2 SAB TAB Ectopic Multiple Live Births 0 0 0 0 2 # Outcome Date GA Lbr Emanuel/2nd Weight Sex Delivery Anes PTL Lv 3 Current 2 Term 05/11/19 39w0d 3.317 kg M CS-LTranv Spinal SRINIVAS 1 Term 12/01/16 39w0d 3.289 kg M CS-LTranv EPI SRINIVAS History reviewed. No pertinent past medical history. Past Surgical History: Procedure Laterality Date SECTION, LOW TRANSVERSE 2016, 2018 Allergies Allergen Reactions Thai [facility] Allergy Skin Test Itching Red Maple (Acer Rubrum) Allergy Skin Test Itching Social History Socioeconomic History Marital status: Spouse name: None Number of children: None Years of education: None Highest education level: None Occupational History None Tobacco Use Smoking status: Never Smoker Smokeless tobacco: Never Used Substance and Sexual Activity Alcohol use: Never Drug use: Never Sexual activity: None Other Topics Concern None Social History Narrative None Social Determinants of Health Social determinant risk not applicable to this patient. Infections Live with someone with or exposed to TB No History of STI's Rash or viral illness since last menstruation No 2nd STI GBS No 3rd STI Hx of Chicken Pox Yes Had vaccine Other infections Partner has hx of genital herpes No Genetics Age is > than 35y as of estimated date No Thalassemia No Neural Tube Defect No Congenital Heart Defect No Down Syndrome No Asad-Sachs No Yue Disease No Sickle Cell Disease or Trait No Hemophilia, Thrombophilia No Muscular Dystrophy No Cystic Fibrosis No [place]'s Chorea No Intellectual Disability/Autism No Metabolic Disorder No Recurrent Loss, or a Stillbirth No Inherited Genetic or Chromosomal Disorder No Illicit; Rec.drugs; Alcohol since last menses No History reviewed. No pertinent family history. Outpatient Encounter Medications as of 01/15/2021 Medication Sig Dispense Refill multivitamin (TRINATAL RX) tablet Take 1 Tablet by mouth daily No facility-administered encounter medications on file as of 01/15/2021. FHT: Positive Presentation: Cephalic Laboratory Test Results: No results found for any previous visit. Ultrasound Results: - Please see Ultrasound test for full details. Assessment/Plan: Shauna Rainey is a 25 y.o. at 33 weeks and 3 days: Active Non-Hospital Problems Diagnosis Date Noted Two vessel umbilical cord, antepartum 01/15/2021 01/15/21: DME The patient was already aware of the finding of a single umbilical artery (SUA) at her 20 week anatomy scan. She was informed that normally the umbilical cord has 2 arteries and 1 vein. SUA is usually the result of atrophy or agenesis of one of the arteries. The incidence is 0.25% - 1% of all tucker pregnancies and up to 4.6% in twins. SUA may be isolated or may occur with other abnormalities. The most common associated organ systems are cardiovascular and renal. The frequency of associated aneuploidy is between 4% and 50% when SUA occurs with a structural abnormality. There is no increased risk for aneuploidy if SUA is isolated. Isolated SUA may be associated with growth constriction (FGR) however results from studies are conflicting. A metanalysis showed no statistically significant difference in mean birthweight or an increase in the proportion of SGA births among fetuses with isolated SUA. However, a cohort study (not included in the metanalysis) with a large control group found that after controlling for confounders, the group of fetuses with isolated SUA showed an increased risk of FGR, polyhydramnios, oligohydramnios, placental abruption, cord prolapse, and mortality. echocardiogram should be considered. growth evaluation in the third trimester is advised. At the time of delivery, the unix developer/music store manager should be informed since up to 7% of cases of isolated SUA have shown structural anomalies in the infants on exam. [Andrea Frost, Andre VAUGHN, Osvaldo FORMAN. Ultrasound markers for aneuploidy in the second trimester. In: Pavel URENA, Andre VAUGHN, Dugoff L, Editors: Genetics. [place], [place]. Elsevier; 2019.] Umbilical vein abnormality com (more content not included)... Normal [facility] POC Basic Metabolic Panelon 10-27-2020 Calcium.ionized (Bld) [Mass/Vol] 4.3 mg/dL Low 4.5 - 5.3 mg/dL [facility] Chloride [Moles/Vol] 106 mmol/L 98 - 10 8 mmol/L [facility] CO2 [Moles/Vol] 20 mmol/L Low 21 - 32 mmol/L [facility] Creatinine [Mass/Vol] 0.37 mg/dL Low 0.40 - 1.10 [facility] GFR/1.73 sq M.predicted MDRD (S/P/Bld) [Vol rate/Area] 151 mL/min/{1.73_m2} >=60 mL/min/1.73 m2 [facility] Glucose [Mass/Vol] 109 mg/dL High 65 - 99 mg/dL [facility] Interpretation and review of laboratory results Abnormal [facility] Potassium [Moles/Vol] 3.7 mmol/L 3.5 - 5.1 mmol/L [facility] Sodium [Moles/Vol] 137 mmol/L 135 - 145 mmol/L [facility] Urea nitrogen [Mass/Vol] 9 mg/dL 8 - 25 mg/dL [facility] POC CBC and Differentialon 0 10-27-2020 Basophils (Bld) [#/Vol] 0.02 10*3/uL [facility] Basophils/100 WBC (Bld) 0.2 % [facility] Eosinophils (Bld) [#/Vol] 0.08 10*3/uL [facility] Eosinophils/100 WBC (Bld) 0.8 % [facility] Erythrocyte distribution width (RBC) [Entitic vol] 14.7 % 11.6 - 14.8 % [facility] Hematocrit (Bld) [Volume fraction] 40.1 % 36.0 - 46.0 % [facility] Hemoglobin (Bld) [Mass/Vol] 13.2 g/dL 12.0 - 16.0 g/dL [facility] Immature granulocytes (Bld) [#/Vol] 0.04 10*3/uL [facility] Immature granulocytes/100 WBC (Bld) 0.40 % [facility] Comment on above: The IG parameter is the percentage of metamyelocytes, myelocytes and promyelocytes. An immature granulocyte count (IG) of 1% or more suggests the possibility of infection, an IG count of 3% is very likely related to an infection. Interpretation and review of laboratory results Abnormal [facility] Lymphocytes (Bld) [#/Vol] 0.81 10*3/uL Low [facility] Lymphocytes/100 WBC (Bld) 7.6 % [facility] MCH (RBC) [Entitic mass] 29.7 pg 26.0 - 34.0 pg [facility] MCHC (RBC) [Mass/Vol] 32.9 g/dL 31.0 - 37.0 g/dL [facility] MCV (RBC) [Entitic vol] 90.1 fL 80.0 - 100.0 fL [facility] Monocytes (Bld) [#/Vol] 0.43 10*3/uL [facility] Monocytes/100 WBC (Bld) 4.1 % [facility] Neutrophils (Bld) [#/Vol] 9.23 10*3/uL High [facility] Neutrophils/100 WBC (Bld) 86.9 % [facility] Platelet mean volume (Bld) [Entitic vol] 9.5 fL 9.4 - 12.4 fL [facility] Platelets (Bld) [#/Vol] 197 10*3/uL [facility] RBC (Bld) [#/Vol] 4.45 10*6/uL [facility] eah WBC (Bld) [#/Vol] 10.61 10*3/uL [facility] POC Liver Panel Pluson 10-27 Albumin [Mass/Vol] 3.1 g/dL Low 3.2 - 5.2 g/dL [facility] ALP [Catalytic activity/Vol] 57 U/L 40 - 140 U/L [facility] ALT [Catalytic activity/Vol] 16 U/L 0 - 40 U/L [facility] Amylase [Catalytic activity/Vol] 46 U/L 25 - 115 U/L [facility] AST [Catalytic activity/Vol] 21 U/L 0 - 45 U/L [facility] Bilirubin [Mass/Vol] 0.5 mg/dL 0.0 - 1 .3 mg/dL [facility] Gamma glutamyl transferase [Catalytic activity/Vol] 6 U/L Low 7 - 33 U/L [facility] Interpretation and review of laboratory results Abnormal [facility] Protein [Mass/Vol] 6.9 g/dL 6.0 - 8.0 g/dL [facility] C. Trachomatis, External Res ultOrdered By: Historical Provider on 07-22-2020 C. Trachomatis, External Result Negative [facility] Work Phone: GBS, External ResultOrdered By: Historical Provider on 07-22-2020 GBS, External Result Positive [facility] Work Phone: HIV, External ResultOrdered By: Historical Provider on 07-22-2020 HIV, External Result Non-Reactive [facility] Work Phone: Hepatitis B, External Result Ordered By: Historical Provider on 07-22-2020 Hep B, External Result Non-Reactive [facility] Work Phone: Hepatitis C Antibody, Senior Marketing Analyst al ResultOrdered By: Historical Provider on 07-22-2020 Hepatitis C Antibody, External Result Non-Reactive [facility] Work Phone: N. Gonorrhoeae, External Res ultOrdered By: Historical Provider on 07-22-2020 N. 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 Patient is and would like to discuss control options today. History of Present Illness Presents for her checkup following a repeat section. She is breast-feeding and desires to be started on control pills. Review of Systems Review of Systems: Constitutional: No fever or chills Respiratory: No shortness of breath, or cough Cardiovascular: No chest pain or syncope Breasts: No breast pain, no masses, no nipple discharge Gastrointestinal: No nausea, vomiting, or diarrhea, no abdominal pain Genitourinary: No dysuria or frequency Gynecology: Negative except as noted in history of present illness Active Problems Encounter for staple removal (V58.32) (Z48.02) Past Medical History History of Menstruation Onset age 13 years History of Pap test, as part of routine gynecological examination (V76.2) (Z01.419) 11/02/18: Negative result Surgical History History of section 05/11/2019_39weeks 2days_Male_7# 5oz. 12/01/2016_38w_5d_Male_3289 g. Family History No pertinent family history No pertinent family history Family history of lung cancer (V16.1) (Z80.1) Social History No alcohol use No illicit drug use Non-smoker (V49.89) (Z78.9) Allergies No Known Drug Allergies Recorded By: Criselda Greco; 05/15/2019 3:05:35 PM Current Meds Celecoxib 200 MG Oral Capsule; Therapy: 13May2019 to Recorded Dispense: 7 Days ; #:14; Refill: 0; SHANNA = N; Record; Last Updated By: Criselda Greco; 05/15/2019 3:05:35 PM Vitals Vital Signs Recorded: 09Jun2019 10:10AM Awlzdzsn608 Vqovveaax39 Height4 ft 11 in Qcgkbr61.7 kg BMI Navaxdywpl30.36 BSA Calculated1.59 LMPBreastfeeding Physical Exam PHYSICAL EXAMINATION: Well-developed, well nourished, in no acute distress, alert and oriented x three, is pleasant and cooperative. HEENT: Clear. Pupils equal, round and reactive to light and accommodation. Extraocular muscles are intact. Oral mucosa pink without exudate. NECK: No lymphadenopathy, no thyromegaly. LUNGS: Clear bilaterally. HEART: Regular rate and rhythm without murmurs. ABDOMEN: Normoactive bowel sounds, soft and nontender, no guarding or rebound tenderness, no CVA tenderness. Noted well-healed low Pfannenstiel scar from previous surgery EXTREMITIES: No clubbing, cyanosis or edema. NEUROLOGIC: Cranial nerves II-XII grossly intact. : Normal external female genitalia, normal vulva, normal vagina. Normal urethral meatus, urethra and bladder. Normal appearing cervix. Normal-sized uterus, no adnexal masses or tenderness. Diagnoses/Problems follow-up (V24.2) (Z39.2) Counseling for control, oral contraceptives (V25.01) (Z30.09) Orders Start: Norethindrone 0.35 MG Oral Tablet (Ortho Micronor); TAKE 1 TABLET DAILY Rx By: Brigid Marquez; Dispense: 28 Days ; #:1 X 28 Tablet Pack; Refill: 6;For: Counseling for control, oral contraceptives; SHANNA = N; Sent To: [facility] 1448 Provider Impressions checkup She will be started on Micronor for contraception. Follow up in November for her annual exam. 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 Patient denies any s/sx of infection and has no concerns at this time. History of Present Illness Patient presents for staple removal. She voices no complaints and is doing well. She is breast-feeding. Review of Systems Constitutional: no fever, no chills, no recent weight gain, no recent weight loss and no fatigue. Eyes: no eye pain, no vision problems and no dryness of the eyes. ENT: no hearing loss, no nosebleeds and no sinus congestion. Cardiovascular: no chest pain, no palpitations and no orthopnea. Respiratory: no shortness of breath, no cough and no wheezing. Gastrointestinal: no abdominal pain, no constipation, no nausea, no diarrhea and no vomiting. Genitourinary: no dysuria, no urinary incontinence, no vaginal dryness, no vaginal itching, no dyspareunia, no pelvic pain, no dysmenorrhea, no sexual problems, no change in urinary frequency, no vaginal discharge, no unexplained vaginal bleeding and no lesion/sore. Musculoskeletal: no back pain, no joint swelling and no leg edema. Integumentary: no rashes, no skin lesions, no nipple discharge, no breast pain and no breast lump. Neurological: no headache, no numbness and no dizziness. Psychiatric: no sleep disturbances, no anxiety and no depression. Endocrine: no hot flashes, no loss of hair and no hirsutism. Hematologic/Lymphatic: no swollen glands, no tendency for easy bleeding and no tendency for easy bruising. Past Medical History History of Pap test, as part of routine gynecological examination (V76.2) (Z01.419) 11/02/18: Negative result Surgical History History of section Family History Family history of lung cancer (V16.1) (Z80.1) Social History Non-smoker (V49.89) (Z78.9) Allergies No Known Drug Allergies Recorded By: Criselda Greco; 05/15/2019 3:05:35 PM Current Meds Celecoxib 200 MG Oral Capsule; Therapy: 13May2019 to Recorded Dispense: 7 Days ; #:14; Refill: 0; SHANNA = N; Record; Last Updated By: Criselda Greco; 05/15/2019 3:05:35 PM Vitals Vital Signs Recorded: 15May2019 02:52PM Zsqlgmcx157 Ulxarmiey36 Pedgtt106 cm Vvhhwd09.2 kg BMI Zekvkuzaxy23.65 BSA Calculated1.63 Physical Exam Constitutional: Alert and in no acute distress. Well developed, well nourished. Head and Face: Head and face: Normal. Eyes: Normal external exam - nonicteric sclera, extraocular movements intact (EOMI) and no ptosis. Abdomen: Soft nontender; no abdominal mass palpated. Noted well-healed low Pfannenstiel scar. [place] were removed and Steri-Strips were applied. Psychiatric: Alert and oriented x 3. Affect normal to patient baseline. Mood: Appropriate. Diagnoses/Problems Encounter for staple removal (V58.32) (Z48.02) History of section Orders Tobacco Use Screening; Status:Complete; Done: 15May2019 Perform:Not Applicable;Ordered; For:SocHx: Non-smoker; Ordered By:Criselda Greco; Provider Impressions Incision is healing well. Her strips were applied. Patient to follow up in 4 weeks for her checkup. Signatures Electronically signed by : Brigid Marquez MD; May 15 2019 3:55PM EST (Author) Normal [employer] CBCon 05-13-2019 Erythrocyte distribution width (RBC) [Ratio] 16.8 % High 11.5 - 14.5 [facility] Comment on above: Performed By: #### C BC #### [place] [address] Hematocrit (Bld) [Volume fraction] 29.7 % Low 36.0 - 46.0 [facility] Comment on above: Performed By: #### C BC #### [address] [address] Hemoglobin (Bld) [Mass/Vol] 9.5 g/dL Low 12.0 - 16.0 [facility] Comment on above: Performed By: #### C BC #### [address] [address] MCHC (RBC) [Mass/Vol] 32.0 g/dL Normal 32.0 - 36.0 [facility] Comment on above: Performed By: #### C BC #### [address] [address] MCV (RBC) [Entitic vol] 82 fL Normal 80 - 100 [facility] Comment on above: Performed By: #### C BC #### [address] [address] Platelets (Bld) [#/Vol] 121 10*3/uL Low 150 - 450 [facility] Comment on above: Performed By: #### C BC #### [address] [address] RBC (Bld) [#/Vol] 3.63 x10E12/L Low 4.00 - 5.20 [facility] Comment on above: Performed By: #### C BC #### [address] [address] WBC (Bld) [#/Vol] 7.4 10*3/uL Normal 4.4 - 11.3 [facility] Comment on above: Performed By: #### C BC #### [address] [address] Daily Progress Note - OB-Pos t-partumon 05-13-2019 Daily Progress Note - KO-Fqsq-[id number] Current Stage: Stage: Post- Subjective Data: Post : Ambulate: Yes Flatus: Yes Tolerate Diet: Yes Lochia: Light Objective Information: Objective Information: T PRBPSpO2 Value36.7761107/5498% Date/Time05/13 4: 4: 4: 4:001 4:00 Range(36.6C - 36.6C ) (76 - 76 ) (16 - 16 ) (96 - 96 )/ (54 - 54 ) (98% - 98% ) Physical Exam: Constitutional: alert, oriented Respiratory/Thorax: normal respiratory effort, lungs clear, no wheezes or rhonchi Cardiovascular: S1 S2 RRR, no murmurs Gastrointestinal: NABS, Soft and nontender, the lower Pfannenstiel incision is healing well without erythema or drainage. Alhaji are in place Extremities: no calf tenderness, reflexes 2+ Recent Lab Results: Results: I have reviewed these laboratory results: Complete Blood Count 13-May-2019 05:09:00 ResultValue White Blood Cell Count 7.4 Red Blood Cell Count 3.63 L HGB 9.5 L HCT 29.7 L MCV 82 MCHC 32.0 PLT 121 L RDW-CV 16.8 H Assessment and Plan: Assessment: Postop day 2. Patient is progressing well. Patient desires to go home today. 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 May shower. December drive. Diet: Dietregular Provider FINAL REVIEW of Orders: Final Review: Final Review of Medication Reconciliation and Orders Completedby Physician Reviewing Ronald Marquez MD at 13-May-2019 07:08:21 Appointments: Coumadin (Warfarin) Follow-Up Monitoring: Physician/Dept/Cristin Marquez MD Follow-Up Appointment 01: Physician/Dept/Cristin Marquez Call to Schedule in2-3 days Locationoffice Phone [phone] CommentsCall for appointment for May 15 for staple removal Electronic Signatures: Brigid Marquez) (Signed 13-May-2019 07:08) Authored: Discharge Orders, Provider FINAL REVIEW of Orders, Appointments, Gold Form - Sales Specialist Summary Last Updated: 13-May-2019 07:08 by Brigid Marquez) [facility] TYPE + SCREENon 05-13-2019 ABO TYPE A [facility] Comment on above: Performed By: #### T +S #### [place] [address] RH TYPE Positive [facility] Comment on above: Performed By: #### T +S #### [place] [address] Hematocriton 05-12-2019 Hematocrit (Bld) [Volume fraction] 29.4 % Low 36.0-48.0 [facility] Comment on above: Performed By: #### [id number] #### [facility] Chemistry Manual Subsection [facility] [place] [address] Hemoglobinon 05-12-2019 Hemoglobin (Bld) [Mass/Vol] 9.4 g/dL Low 12.0-16.0 [facility] Comment on above: Performed By: #### 2 [id number] #### [employer] [address] [place] [address] Placenta Pathology Request - NO EXAMon 05-12-2019 Placenta Pathology Request - NO EXAM Collected [facility] Comment on above: Performed By: #### 6 [id number] #### ALEX Chemistry Manual Subsection [facility] [place] [address] RPRon 05-12-2019 Reagin Ab RPR Ql (S) Non-Reactive Normal Non-Lety ctiv e [facility] Comment on above: Performed By: #### 6 [id number] #### ALEX Chemistry Manual Subsection [facility] [place] [address] ABO/Rh Echoon 05-09-2019 ABO/Rh E Interp... Positive [facility] Comment on above: Performed By: #### 2 [id number] #### [employer] [address] [place] [address]7095 Antibody Screen Cap...on Screen Interp... Negative Normal [facility] Comment on above: Performed By: #### 2 [id number] #### [employer] [address] [place] [address] 31247 Auto Diffon 05-09-2019 Basophils (Bld) [#/Vol] 0.1 E3/mcL Normal 0.0-0.2 [facility] Comment on above: Order Comment: Order Added by Discern Expert. Performed By: #### 2 [id number] #### [employer] [address] [place] [address] 14122 Basophils/100 WBC (Bld) 0.8 % Normal 0.0-2.0 [facility] Comment on above: Order Comment: Order Added by Discern Expert. Performed By: #### 2 [id number] #### [employer] [address] [place] [address] Eos Absolute 0.1 E3/mcL Normal 0.0-0.7 [facility] Comment on above: Order Comment: Order Added by Discern Expert. Performed By: #### 2 [id number] #### [employer] [address] [place] [address] 66746 Eosinophils/100 WBC (Bld) 1.5 % Normal 0.0-11.0 [facility] Comment on above: Order Comment: Order Added by Discern Expert. Performed By: #### 2 [id number] #### [employer] [address] [place] [address] 44428 Lymphocytes (Bld) [#/Vol] 2.2 E3/mcL Normal 1.2-3.4 [facility] Comment on above: Order Comment: Order Added by Discern Expert. Performed By: #### 2 [id number] #### [employer] [address] [place] [address] 98694 Lymphocytes/100 WBC (Bld) 33.5 % Normal 20.0-55.0 [facility] Comment on above: Order Comment: Order Added by Discern Expert. Performed By: #### 2 [id number] #### [employer] [address] [place] [address] 97894 Sarpy Absolute 0.5 E3/mcL Normal 0.0-0.7 [facility] Comment on above: Order Comment: Order Added by Discern Expert. Performed By: #### 2 [id number] #### [employer] [address] [place] [address] 94080 Monocytes/100 WBC (Bld) 8.2 % Normal 0.0-10.0 [facility] Comment on above: Order Comment: Order Added by Discern Expert. Performed By: #### 2 [id number] #### [employer] [address] [place], [place] [address] Neutro Absolute 3.6 E3/mcL Normal 1.4-6.5 [facility] Comment on above: Order Comment: Order Added by Discern Expert. Performed By: #### 2 [id number] #### [employer] [address] [place] [address] Neutro Auto 56.0 % Normal 37.0-75.0 [facility] Comment on above: Order Comment: Order Added by Discern Expert. Performed By: #### 2 [id number] #### [employer] [address] [place], [place] [address] CBC w/ Auto Diffon 9 Erythrocyte distribution width (RBC) [Ratio] 16.5 % High 11.5-14.5 [facility] Comment on above: Performed By: #### 2 [id number] #### [employer] [address] [place] [address] 03965 Hematocrit (Bld) [Volume fraction] 35.5 % Low 36.0-48.0 [facility] Comment on above: Performed By: #### 2 [id number] #### [employer] [address] [place] [address] 49691 Hemoglobin (Bld) [Mass/Vol] 11.5 g/dL Low 12.0-16.0 [facility] Comment on above: Performed By: #### 2 [id number] #### [employer] [address] [place] [address] 61440 MCH (RBC) [Entitic mass] 25.9 pg Low 27.0-31.0 [facility] Comment on above: Performed By: #### 2 [id number] #### [employer] [address] [place] [address] 45865 MCHC (RBC) [Mass/Vol] 32.3 g/dL Low 33.0-37.0 [facility] Comment on above: Performed By: #### 2 [id number] #### [facility] [employer] [address] [place] [address] 61618 MCV (RBC) [Entitic vol] 80.2 fL Normal 78.0-100.0 [facility] Comment on above: Performed By: #### 2 [id number] #### [facility] [employer] [address] [place] [address] 76530 Platelet mean volume (Bld) [Entitic vol] 8.7 fL Normal 7.4-11.0 [facility] Comment on above: Performed By: #### 2 [id number] #### [facility] [employer] [address] Platelets (Bld) [#/Vol] 146 E3/mcL Normal 130-400 [facility] Comment on above: Performed By: #### 2 [id number] #### [facility] [employer] [address] [place] [address] 47384 RBC (Bld) [#/Vol] 4.43 E6/mcL Normal 3.90-5.[address] [facility] Comment on above: Performed By: #### 2 [id number] #### [facility] [employer] [address] WBC (Bld) [#/Vol] 6.5 E3/mcL Normal 3.6-11.0 [facility] Comment on above: Performed By: #### 2 [id number] #### [employer] [address] [place] [address] 94316 Group B Strep PCRon 04-21-20 19 Group B Strep PCR Negative Normal [facility] Comment on above: Order Comment: For p ositive results only; Penicillin is the recommended antibiotic for the treatment of Group B Streptococcal disease. In case of penicillin allergy, Clindamycin may be used.All Negative GBS Screens by PCR will be confirmed by culture. Performed By: #### 2 [id number] #### [facility] [employer] [address] [place] [address] 28592 Auto Diffon 02-06-2019 Basophils (Bld) [#/Vol] 0.0 E3/mcL Normal 0.0-0.2 [facility] Comment on above: Order Comment: Order Added by Discern Expert. Performed By: #### 2 [id number] #### [employer] [address] [place] [address] 45894 Basophils/100 WBC (Bld) 0.5 % Normal 0.0-2.0 [facility] Comment on above: Order Comment: Order Added by Discern Expert. Performed By: #### 2 [id number] #### [employer] [address] [place] [address] 17083 Eos Absolute 0.1 E3/mcL Normal 0.0-0.7 [facility] Comment on above: Order Comment: Order Added by Discern Expert. Performed By: #### 2 [id number] #### [employer] [address] [place] [address] 11749 Eosinophils/100 WBC (Bld) 1.5 % Normal 0.0-11.0 [facility] Comment on above: Order Comment: Order Added by Mateus Expert. Performed By: #### 2 [id number] #### [employer] [address] [place] [address] 44596 Lymphocytes (Bld) [#/Vol] 2.1 E3/mcL Normal 1.2-3.4 [facility] Comment on above: Order Comment: Order Added by Mateus Expert. Performed By: #### 2 [id number] #### [employer] [address] [place] [address] 79032 Lymphocytes/100 WBC (Bld) 21.7 % Normal 20.0-55.0 [facility] Comment on above: Order Comment: Order Added by Mateus Expert. Performed By: #### 2 [id number] #### [employer] [address] [place] [address] 83142 Sarpy Absolute 0.6 E3/mcL Normal 0.0-0.7 [facility] Comment on above: Order Comment: Order Added by Mateus Expert. Performed By: #### 2 [id number] #### [employer] [address] [place] [address] 39896 Monocytes/100 WBC (Bld) 6.8 % Normal 0.0-10.0 [facility] Comment on above: Order Comment: Order Added by Discern Expert. Performed By: #### 2 [id number] #### [employer] [address] [place], [place] [address] Neutro Absolute 6.6 E3/mcL High 1.4-6.5 [facility] Comment on above: Order Comment: Order Added by Discern Expert. Performed By: #### 2 [id number] #### [employer] [address] [place] [address] Neutro Auto 69.5 % Normal 37.0-75.0 [facility] Comment on above: Order Comment: Order Added by Discern Expert. Performed By: #### 2 [id number] #### [facility] [employer] [address] [place], [place] [address] CBC w/ Auto Diffon 9 Erythrocyte distribution width (RBC) [Ratio] 14.4 % Normal 11.5-14.5 [facility] Comment on above: Performed By: #### 2 [id number] #### [employer] [address] [place] [address] Hematocrit (Bld) [Volume fraction] 33.9 % Low 36.0-48.0 [facility] Comment on above: Performed By: #### 2 [id number] #### [facility] [employer] [address] [place], [place] [address] Hemoglobin (Bld) [Mass/Vol] 11.3 g/dL Low 12.0-16.0 [facility] Comment on above: Performed By: #### 2 [id number] #### [employer] [address] [place], [place] [address] MCH (RBC) [Entitic mass] 29.7 pg Normal 27.0-31.0 [facility] Comment on above: Performed By: #### 2 [id number] #### [employer] [address] [place], [place] [address] MCHC (RBC) [Mass/Vol] 33.2 g/dL Normal 33.0-37.0 [facility] Comment on above: Performed By: #### 2 [id number] #### [facility] [employer] [address] [place], [place] [address] MCV (RBC) [Entitic vol] 89.5 fL Normal 78.0-100.0 [facility] Comment on above: Performed By: #### 2 [id number] #### [employer] [facility] [place] [address] Platelet mean volume (Bld) [Entitic vol] 7.7 fL Normal 7.4-11.0 [facility] Comment on above: Performed By: #### 2 [id number] #### [employer] [facility] [place] [address] Platelets (Bld) [#/Vol] 190 E3/mcL Normal 130-400 [facility] Comment on above: Performed By: #### 2 [id number] #### [employer] [facility] [place] [address] RBC (Bld) [#/Vol] 3.79 E6/mcL Low 3.90-5.[address] [facility] Comment on above: Performed By: #### 2 [id number] #### [employer] [address] [place] [address] 59765 WBC (Bld) [#/Vol] 9.5 E3/mcL Normal 3.6-11.0 [facility] Comment on above: Performed By: #### 2 [id number] #### [employer] [address] [place] [address] 14624 Gest Scr Glu 1 Hron 02-07-20 19 Glucose [Mass/Vol] 112 mg/dL Normal 70-[address] [facility] Comment on above: Performed By: #### 2 [id number] #### [employer] [address] [place] [address] 99123 URINALYSISon 01-04-2019 Bacteria Auto Ql (U) Rare Abnormal None Se en /hpf [facility] Bilirubin Ql (U) Negative Negative [facility] Clarity Refractometry automated Nom (U) Hazy Abnormal Clear [facility] Color Nom (U) Yellow Colorless, Yellow [facility] Epithelial cells.squamous Auto #/area (Urine sed) 2 [facility] Glucose Automated test strip mass conc (U) Negative Negative mg/dL [facility] Hemoglobin Automated test strip Ql (U) Large Abnormal Negative [facility] Interpretation and review of laboratory results Abnormal [facility] Ketones mass conc (U) >=80 Abnormal Negati ve mg/dL [facility] Leukocyte esterase Automated test strip Ql (U) Negative Negative [facility] Mucus Auto #/area (Urine sed) Rare None Seen, Rare /lpf [facility] Nitrite Automated test strip Ql (U) Negative Negative [facility] pH (U) 5.0 [pH] [facility] Protein mass conc (U) 100 Abnormal Negati ve mg/dL [facility] RBC Auto #/area (Urine sed) >180 High [facility] Specific gravity Relative Density (U) 1.028 High [facility] Urobilinogen mass conc (U) <2.0 <2.0 mg/dL [facility] WBC Auto #/area (Urine sed) <1 [facility] Microscopic examinat ion is performed on all urinalysis samples and only positive findings are reported. The test for blood on the chemical analytic portion of urinalysis may also be positive due to hemoglobinuria and myoglobinuria and if red blood cells are present they are quantified by microscopic examination. [facility] US Renal Onlyon 01-04-2019 1. Aazg-pq-ldwgnsqk hydronephrosis of the left kidney; however, no apparent cause is identified. If patient has a distal left ureteral calculus would be a consideration. Other etiologies, such as mass in the distal abdomen or pelvis, could result in similar process. 2. Normal-appearing right kidney. [employer] Workstation ID: [id number] [facility] CLINICAL HISTORY: Le ft flank pain. EXAMINATION: RENAL ULTRASOUND: 01/04/2019 COMPARISON: None. FINDINGS: Static images from real-time examination using grayscale, color Doppler sonography are provided, which demonstrate the left kidney measures 12.2 x 7.1 x 5.7 cm with cortical thickness of 1.9 cm, with mild hydronephrosis of the left kidney. There is no definite nephrolithiasis, perinephric fluid collections, or mass. The right kidney measures 10.1 x 5.2 x 4.4 cm with cortical thickness of 1.5 cm. There is no mass, hydronephrosis, nephrolithiasis, or perinephric fluid collections. [facility] Hernán, Yovany In Aung ji Prasanthq - 01/04/2019 8:33 PM EDT CLINICAL HISTORY: Left flank pain. EXAMINATION: RENAL ULTRASOUND: 01/04/2019 COMPARISON: None. FINDINGS: Static images from real-time examination using grayscale, color Doppler sonography are provided, which demonstrate the left kidney measures 12.2 x 7.1 x 5.7 cm with cortical thickness of 1.9 cm, with mild hydronephrosis of the left kidney. There is no definite nephrolithiasis, perinephric fluid collections, or mass. The right kidney measures 10.1 x 5.2 x 4.4 cm with cortical thickness of 1.5 cm. There is no mass, hydronephrosis, nephrolithiasis, or perinephric fluid collections. IMPRESSION: 1. Acga-ny-qulgznio hydronephrosis of the left kidney; however, no apparent cause is identified. If patient has a distal left ureteral calculus would be a consideration. Other etiologies, such as mass in the distal abdomen or pelvis, could result in similar process. 2. Normal-appearing right kidney. [employer] Workstation ID: [id number] [facility] US After 1st Trime steron 12-26-2018 US After 1st Trimester Exam Date/Time: 12/26/2018 09:59 EDT Reason for Exam: DATES AND ANATOMY;Standard Anatomy Report STUDY: US After 1st Trimester 12/26/2018 9:59 am INDICATION: Standard Anatomy. COMPARISON: None. ACCESSION NUMBER(S): [id number] ORDERING CLINICIAN: Brigid Marquez TECHNIQUE: Routine ultrasound of the pelvis was performed. Evaluation of the female pelvis was performed by transabdominal. FINDINGS: There is a single live intrauterine gestation in variable position. BPD 46mm, 19 weeks, 6 days HC 166mm, 19 weeks, 2 days AC 151mm, 20 weeks, 2 days FL 32mm, 19 weeks, 6 days This results in a composite gestational age of 19 weeks, 6 days, +/-10 days. The estimated date of delivery by ultrasound is 05/16/2019. By dates the fetus should be 19 weeks, 6 days, which is concordant with the ultrasound dating. There is an estimated weight of 328 g +/-49 g (56th percentile). heart rate measures 148 beats per minute. Anatomy: HEART (FOUR-CHAMBER): Seen THREE-VESSEL CORD: Seen UMBILICAL CORD INSERTION: Seen BLADDER: Seen STOMACH: Seen SPINE: Seen KIDNEYS: Seen DIAPHRAGM: Seen LATERAL VENTRICLE: Seen The placenta is in posterior position. No evidence of placenta previa is seen. The amniotic fluid volume is within normal limits. Exam Date/Time: 12/26/2018 09:59 EDT Report Maternal anatomy: The cervix is closed, measuring at to 3.5 cm in length. IMPRESSION: Single live intrauterine gestation corresponding to 19 weeks, 6 days, +/-10 days. No gross anatomic abnormality is identified. Recommend continued routine follow-up imaging evaluation. FINAL REPORT Dictated: 12/26/2018 10:58 am Adithya Shaw MD Signed (Electronic Signature): 12/26/2018 10:58 am Signed by: Adithya Shaw MD Technologist: AMS Normal [facility] Auto Diffon 12-13-2018 Basophils (Bld) [#/Vol] 0.0 E3/mcL Normal 0.0-0.2 [facility] Comment on above: Order Comment: Order Added by Discern Expert. Performed By: #### 2 [id number] #### [employer] [address] [place] [address] Basophils/100 WBC (Bld) 0.4 % Normal 0.0-2.0 [facility] Comment on above: Order Comment: Order Added by Discern Expert. Performed By: #### 2 [id number] #### [employer] [address] [place] [address] Eos Absolute 0.1 E3/mcL Normal 0.0-0.7 [facility] Comment on above: Order Comment: Order Added by Discern Expert. Performed By: #### 2 [id number] #### [employer] [address] [place] [address] Eosinophils/100 WBC (Bld) 1.1 % Normal 0.0-11.0 [facility] Comment on above: Order Comment: Order Added by Discern Expert. Performed By: #### 2 [id number] #### [employer] [address] [place] [address] Lymphocytes (Bld) [#/Vol] 1.6 E3/mcL Normal 1.2-3.4 [facility] Comment on above: Order Comment: Order Added by Discern Expert. Performed By: #### 2 [id number] #### [employer] [address] [place] [address] Lymphocytes/100 WBC (Bld) 19.5 % Low 20.0-55.0 [facility] Comment on above: Order Comment: Order Added by Discern Expert. Performed By: #### 2 [id number] #### [employer] [address] [place] [address] Sarpy Absolute 0.5 E3/mcL Normal 0.0-0.7 [facility] Comment on above: Order Comment: Order Added by Discern Expert. Performed By: #### 2 [id number] #### [employer] [address] [place] [address] Monocytes/100 WBC (Bld) 6.5 % Normal 0.0-10.0 [facility] Comment on above: Order Comment: Order Added by Discern Expert. Performed By: #### 2 [id number] #### [employer] [address] [place] [address] Neutro Absolute 5.9 E3/mcL Normal 1.4-6.5 [facility] Comment on above: Order Comment: Order Added by Discern Expert. Performed By: #### 2 [id number] #### [employer] [address] [place] [address] Neutro Auto 72.5 % Normal 37.0-75.0 [facility] Comment on above: Order Comment: Order Added by Discern Expert. Performed By: #### 2 [id number] #### [employer] [address] [place] [address] BMPon 12-13-2018 Anion gap [Moles/Vol] 11 mmol/L Normal 10-20 [facility] Comment on above: Performed By: #### 2 [id number] #### [employer] [address] [place] [address] Calcium [Mass/Vol] 8.7 mg/dL Normal 8.6-10.[address] [facility] Comment on above: Performed By: #### 2 [id number] #### [employer] [address] [place] [address] Chloride [Moles/Vol] 105 mmol/L Normal 98-107 [facility] Comment on above: Performed By: #### 2 140385 #### [employer] [address] [place] [address] CO2 [Moles/Vol] 24.0 mmol/L Normal 21.0-32.0 [facility] Comment on above: Performed By: #### 2 [id number] #### [employer] [address] [place] [address] Creatinine [Mass/Vol] 0.4 mg/dL Low 0.5-1.1 [facility] Comment on above: Performed By: #### 2 [id number] #### [employer] [address] [place] [address] Glucose [Mass/Vol] 92 mg/dL Normal 70-[address] [facility] Comment on above: Performed By: #### 2 [id number] #### [employer] [address] [place] [address] Potassium [Moles/Vol] 3.7 mmol/L Normal 3.5-5.3 [facility] Comment on above: Performed By: #### 2 [id number] #### [employer] [address] [place] [address] Sodium [Moles/Vol] 136 mmol/L Normal 136-[address] [facility] Comment on above: Performed By: #### 2 [id number] #### [employer] [address] [place] [address] Urea nitrogen [Mass/Vol] 9 mg/dL Normal 6-23 [facility] Comment on above: Performed By: #### 2 [id number] #### [employer] [address] [place] [address] Urea nitrogen/Creatinine [Mass ratio] 22.5 ratio Normal 5.4-30.0 [facility] Comment on above: Performed By: #### 2 [id number] #### [employer] [address] [place] [address] CBC w/ Auto Diffon 9 Erythrocyte distribution width (RBC) [Ratio] 14.4 % Normal 11.5-14.5 [facility] Comment on above: Performed By: #### 2 916611 #### [employer] [address] [place] [address] Hematocrit (Bld) [Volume fraction] 37.6 % Normal 36.0-48.0 [facility] Comment on above: Performed By: #### 2 800957 #### [employer] [address] [place] [address] Hemoglobin (Bld) [Mass/Vol] 12.5 g/dL Normal 12.0-16.0 [facility] Comment on above: Performed By: #### 2 [id number] #### [employer] [address] [place] [address] MCH (RBC) [Entitic mass] 30.1 pg Normal 27.0-31.0 [facility] Comment on above: Performed By: #### 2 [id number] #### [employer] [address] [place] [address] MCHC (RBC) [Mass/Vol] 33.4 g/dL Normal 33.0-37.0 [facility] Comment on above: Performed By: #### 2 [id number] #### [employer] [address] [place] [address] MCV (RBC) [Entitic vol] 90.2 fL Normal 78.0-100.0 [facility] Comment on above: Performed By: #### 2 [id number] #### [employer] [address] [place] [address] Platelet mean volume (Bld) [Entitic vol] 8.0 fL Normal 7.4-11.0 [facility] Comment on above: Performed By: #### 2 565952 #### [employer] [address] [place] [address] Platelets (Bld) [#/Vol] 211 E3/mcL Normal 130-400 [facility] Comment on above: Performed By: #### 2 [id number] #### [employer] [address] [place] [address] RBC (Bld) [#/Vol] 4.17 E6/mcL Normal 3.90-5.[address] [facility] Comment on above: Performed By: #### 2 [id number] #### [employer] [address] [place] [address] WBC (Bld) [#/Vol] 8.2 E3/mcL Normal 3.6-11.0 [facility] Comment on above: Performed By: #### 2 [id number] #### [employer]LEX [employer] [address] [place] [address] Hep Func Panelon 12-13-2018 Albumin [Mass/Vol] 3.7 g/dL Normal 3.4-5.[address] [facility] Comment on above: Performed By: #### 2 [id number] #### [employer] [address] [address] [place] [address] Albumin/Globulin [Mass ratio] 1.5 {ratio} Normal 1.1-1.9 [facility] Comment on above: Performed By: #### 2 599481 #### [employer] [address] [place] [address] Alk Phos 43 Int._Unit/L Normal 33-110 [facility] Comment on above: Performed By: #### 2 [id number] #### [employer] [address] [place] [address] ALT [Catalytic activity/Vol] 11 Int._Unit/L Normal 7-45 [facility] Comment on above: Performed By: #### 2 [id number] #### [employer] [address] [place] [address] AST [Catalytic activity/Vol] 12 Int._Unit/L Normal 9-39 [facility] Comment on above: Performed By: #### 2 [id number] #### [employer] [address] [place] [address] Bili Direct 0.07 mg/dL Normal 0.00-0.30 [facility] Comment on above: Performed By: #### 2 714102 #### [employer] [address] [address] [place] [address] Bili Indirect 0.24 mg/dL Normal [facility] Comment on above: Result Comment: No e stablished ranges available for the indirect bilirubin Performed By: #### 2 206228 #### [employer] [address] [address] [place] [address] Bili Total 0.31 mg/dL Normal 0.00-1.20 [facility] Comment on above: Performed By: #### 2 318251 #### [employer]LEX [employer] [address] [place] [address] Globulin (S) [Mass/Vol] 3.0 g/dL Normal 2.0-4.0 [facility] Comment on above: Performed By: #### 2 633803 #### ALEXLora Timmons[address] [address] Protein [Mass/Vol] 6.2 g/dL Low 6.4-8.[address] [facility] Comment on above: Performed By: #### 2 848229 #### ALEXLora Timmons[address] [address] Lipase Levelon 12-13-2018 Lipase Lvl 14 Int._Unit/L Normal [facility] Comment on above: Performed By: #### 2 065522 #### ALEXLora Timmons[address] [address] UA Completeon 12-13-2018 Color (U) Yellow Normal Yellow [facility] Comment on above: Performed By: #### 2 [id number] #### ALEX Timmonso [address] [place], [place] [address] Glucose (U) [Mass/Vol] Negative Normal Negative [facility] Comment on above: Performed By: #### 2 827251 #### ALEX Timmonso [address] [place], [place] [address] Ketones Ql (U) Trace Normal [facility] Comment on above: Performed By: #### 2 160170 #### ALEXLora Timmons[address] [address] RBC (U) [#/Vol] /uL Abnormal 0-3 [facility] Comment on above: Performed By: #### 2 892292 #### [employer]LEX [address] [place] [address] UA Blood 3+ Normal Negative [facility] Comment on above: Performed By: #### 2 572357 #### ALEXLora ZepedaHemo [address] [place] [address] UA Clarity Cloudy Abnormal Clear [facility] Comment on above: Performed By: #### 2 [id number] #### ALEXLora ZepedaHemo [facility] [place] [address] UA Leuk Est Negative Normal Negative [facility] Comment on above: Performed By: #### 2 [id number] #### ALEX RemHemo [address] [place] [address] UA Mucous Many Abnormal Trace [facility] Comment on above: Performed By: #### 2 [id number] #### ALEX ZepedaHemo [address] [place] [address] UA Nitrite Negative Normal Negative [facility] Comment on above: Performed By: #### 2 [id number] #### ALEX ZepedaHemo [address] [place] [address] UA pH 5.0 Normal 4.6-8.0 [facility] Comment on above: Performed By: #### 2 [id number] #### ALEX ZepedaHemo [facility] [place] [address] UA Protein 2+ Abnormal Negative [facility] Comment on above: Performed By: #### 2 [id number] #### ALEX ZepedaHemo [address] [place], [place] [id number] UA Spec Grav 1.032 High 1.003-1.030 [facility] Comment on above: Performed By: #### 2 [id number] #### ALEX RemHemo [address] [place] [address] UA Squam Epithelial 0-5 Normal 0-5 [facility] Comment on above: Performed By: #### 2 [id number] #### ALEX ZepedaHemo [address] [place] [address] UA Urobilinogen Negative Normal [facility] Comment on above: Result Comment: Due to a manufacturing issue, low positive urobilinogen results may be fasely positive. Correlate with urine bilirubin and additional clinical/laboratory findings to assess the risk of hemolytic anemia or liver disease. If clinically indicated, repeat testing with an alternate method is available by contacting the laboratory within 24 hours. Performed By: #### 2 [id number] #### ALEX RemHemo [address] [place] [address] UA WBC 0-5 Normal 0-5 [facility] Comment on above: Performed By: #### 2 [id number] #### ALEX RemHemo [address] [place] [address] Urobilinogen Qn (U) Negative Normal Negative [facility] Comment on above: Performed By: #### 2 [id number] #### ALEX RemHemo [facility] [place] [address] US Renalon 12-13-2018 US Renal Exam Date/Time: 12/13/2018 16:52 EDT Reason for Exam: left flank pain;Other (please specify) Report STUDY: US Renal; 12/13/2018 4:52 pm INDICATION: Other (please specify). Patient is approximately 19 weeks . COMPARISON: None. ACCESSION NUMBER(S): [id number] ORDERING CLINICIAN: Cristofer Beebe TECHNIQUE: Multiple images of the kidneys were obtained . FINDINGS: RIGHT KIDNEY: Right kidney measures approximately 11.3 cm and is normal in size, contour and echotexture. There is minimal prominence of the right renal pelvis. LEFT KIDNEY: Left kidney measures approximately 11.3 cm and is normal in size, contour and echotexture. There is no left hydronephrosis. No left renal calculi. BLADDER: The urinary bladder was distended. Both ureteral jets were documented. The urinary bladder is normal in sonographic appearance. IMPRESSION: 1. Essentially normal ultrasound of the kidneys. There is a minimal prominence of the right renal pelvis. There are no renal calculi bilaterally. There is no evidence of left hydronephrosis. FINAL REPORT Dictated: 12/13/2018 4:56 pm Víctor Moon MD Signed (Electronic Signature): 12/13/2018 4:56 pm Signed by: Víctor Moon MD Technologist: RITO Normal [facility] eGFRon 12-13-2018 GFR/1.73 sq M predicted among non-blacks MDRD (S/P/Bld) [Vol rate/Area] mL/min/{1.73_m2} [facility] Comment on above: Order Comment: Order Added by Discern Expert. Performed By: #### 2 [id number] #### ALEX ZepedaHemo [address] [place] [address] C Urineon 12-02-2018 C Urine Final Report: Modera te growth of Normal skin jennie isolated Normal [facility] Comment on above: Performed By: #### 2 [id number] #### ALEX RemHemo [facility] [place] [address] IGP W/hpv Rfx [id number] 11-10 Diagnosis: See Ref Lab Report Normal [facility] Comment on above: Order Comment: Order Added by Discern Expert. Performed By: #### 2 [id number] #### ALEX RemHemo [address] [place] [address] RPRon 11-09-2018 Reagin Ab RPR Ql (S) Non-Reactive Normal Non-[place] ctiv e [facility] Comment on above: Performed By: #### 2 [id number] #### ALEX Chemistry Manual Subsection [address] [place] [address] C Urineon 11-04-2018 C Urine Final Report: Rare N ormal skin jennie isolated Normal [facility] Comment on above: Performed By: #### 2 [id number] #### ALEX Microbiology Subsection [address] [place] [address] Hep Bs Agon 11-04-2018 Hep Bs Ag Negative Normal Negative [facility] Comment on above: Result Comment: Perf ormed At: CB [facility] [address] [id number] Jennifer Pina PhD Ph:[phone] Performed By: #### 2 [id number] #### ALEX Send Outs Subsection [address] [place] [address] ABO/Rh Echoon 11-02-2018 ABO/Rh E Interp... Positive Normal [facility] Comment on above: Performed By: #### 8 [id number] #### ALEX Blood Bank Subsection [address] [place] [address] Antibody Screen Cap...on Screen Interp... Negative Normal [facility] Comment on above: Performed By: #### 8 [id number] #### ALEX Blood Bank Subsection [address] [place] [address] Auto Diffon 11-02-2018 Basophils (Bld) [#/Vol] 0.1 E3/mcL Normal 0.0-0.2 [facility] Comment on above: Order Comment: Order Added by Discern Expert. Performed By: #### 2 [id number] #### ALEX RemHemo [address] [place] [address] Basophils/100 WBC (Bld) 1.3 % Normal 0.0-2.0 [facility] Comment on above: Order Comment: Order Added by Discern Expert. Performed By: #### 2 [id number] #### ALEX RemHemo [address] [place] [address] Eos Absolute 0.2 E3/mcL Normal 0.0-0.7 [facility] Comment on above: Order Comment: Order Added by Discern Expert. Performed By: #### 2 [id number] #### ALEX RemHemo [address] [place] [address] Eosinophils/100 WBC (Bld) 1.8 % Normal 0.0-11.0 [facility] Comment on above: Order Comment: Order Added by Discern Expert. Performed By: #### 2 [id number] #### ALEX RemHemo [address] [place] [address] Lymphocytes (Bld) [#/Vol] 2.1 E3/mcL Normal 1.2-3.4 [facility] Comment on above: Order Comment: Order Added by Discern Expert. Performed By: #### 2 [id number] #### ALEX RemHemo [address] [place] [address] Lymphocytes/100 WBC (Bld) 24.5 % Normal 20.0-55.0 [facility] Comment on above: Order Comment: Order Added by Discern Expert. Performed By: #### 2 [id number] #### ALEX RemHemo [address] [place] [address] Sarpy Absolute 0.3 E3/mcL Normal 0.0-0.7 [facility] Comment on above: Order Comment: Order Added by Discern Expert. Performed By: #### 2 [id number] #### ALEX RemHemo [address] [place] [address] Monocytes/100 WBC (Bld) 3.7 % Normal 0.0-10.0 [facility] Comment on above: Order Comment: Order Added by Discern Expert. Performed By: #### 2 [id number] #### ALEX RemHemo [address] [place] [address] Neutro Absolute 5.8 E3/mcL Normal 1.4-6.5 [facility] Comment on above: Order Comment: Order Added by Discern Expert. Performed By: #### 2 [id number] #### ALEX ZepedaHemo [facility] [place] [address] Neutro Auto 68.7 % Normal 37.0-75.0 [facility] Comment on above: Order Comment: Order Added by Discern Expert. Performed By: #### 2 [id number] #### ALEX Timmonso [address] [place] [address] CBC w/ Auto Diffon Erythrocyte distribution width (RBC) [Ratio] 14.5 % Normal 11.5-14.5 [facility] Comment on above: Performed By: #### 2 [id number] #### ALEX Timmonso [address] [place], [place] [address] Hematocrit (Bld) [Volume fraction] 40.8 % Normal 36.0-48.0 [facility] Comment on above: Performed By: #### 2 [id number] #### ALEX ZepedaHemo [address] [place] [address] Hemoglobin (Bld) [Mass/Vol] 13.5 g/dL Normal 12.0-16.0 [facility] Comment on above: Performed By: #### 2 [id number] #### ALEX ZepedaHemo [address] [place] [address] MCH (RBC) [Entitic mass] 29.8 pg Normal 27.0-31.0 [facility] Comment on above: Performed By: #### 2 [id number] #### ALEX ZepedaHemo [address] [place] [address] MCHC (RBC) [Mass/Vol] 33.0 g/dL Normal 33.0-37.0 [facility] Comment on above: Performed By: #### 2 [id number] #### ALEX ZepedaHemo [address] [place] [address] MCV (RBC) [Entitic vol] 90.1 fL Normal 78.0-100.0 [facility] Comment on above: Performed By: #### 2 [id number] #### ALEX RemHemo [address] [place] [address], [place] [address] Platelet mean volume (Bld) [Entitic vol] 8.3 fL Normal 7.4-11.0 [facility] Comment on above: Performed By: #### 2 [id number] #### ALEX RemHemo [facility] [place] [address] Platelets (Bld) [#/Vol] 227 E3/mcL Normal 130-400 [facility] Comment on above: Performed By: #### 2 [id number] #### ALEX RemHemo [address] [place] [address] RBC (Bld) [#/Vol] 4.53 E6/mcL Normal 3.90-5.[address] [facility] Comment on above: Performed By: #### 2 [id number] #### ALEX RemHemo [address] [place] [address] WBC (Bld) [#/Vol] 8.4 E3/mcL Normal 3.6-11.0 [facility] Comment on above: Performed By: #### 2 [id number] #### ALEX RemHemo [address] [place] [address] Chlamydia GC by PCRon 2018 Chlamydia by PCR. Not Detected Normal Not Detected [facility] Comment on above: Result Comment: Xper t CT/NG Assay performance has not been evaluated in patients less than 14 years of age. Performed By: #### 3 [id number] #### ALEX Misc Micro SubSection , Gonorrhoeae by PCR Not Detected Normal Not Detected [facility] Comment on above: Result Comment: Xper t CT/NG Assay performance has not been evaluated in patients less than 14 years of age. Performed By: #### 3 [id number] #### ALEX Misc Micro SubSection , HIV-1/2 Ag/Abon 11-02-2018 HIV Combo Internal Control Line Reactive Normal Reactive [facility] Comment on above: Performed By: #### 6 [id number] #### ALEX Chemistry Manual Subsection [facility] [place] [address] HIV-1 & HIV-2 Antibodies Non-Reactive Normal Non-Reactiv e [facility] Comment on above: Performed By: #### 6 [id number] #### ALEX Chemistry Manual Subsection [facility] [place] [address] HIV-1 p-24 Antigen Non-Reactive Normal Non-React iv e [facility] Comment on above: Performed By: #### 6 [id number] #### ALEX Chemistry Manual Subsection [facility] [place] [address] HIV-1/2 Ag/Ab Interp Negative Normal Negative [facility] Comment on above: Performed By: #### 6 [id number] #### ALEX Chemistry Manual Subsection [facility] [place] [address] Rubella IgG Lvlon 11-02-2018 Rubella IgG Lvl 55.8 (POS) Normal [facility] Comment on above: Result Comment: <10I U/ml NON REACTIVE: NOT IMMUNE 10-15 IU/ml RUBELLA SPECIFIC AB PRESENT, EVALUATE FURTHER TO DETERMINE IMMUNE STATUS >15 IU/ml REACTIVE, IMMUNE Performed By: #### 2 [id number] #### ALEX [employer] [address] [place] [address] Pathology ([facility])on 10-22-2017 Pathology ([facility]) FINAL GYNECOLOGIC CY TOLOGY [id number] ADEQUACYSatisfactory for Evaluation. Endocervical cells/transformation zone componentpresent.GENERAL CATEGORIZATIONEpithelial Cell AbnormalityDESCRIPTIVE DIAGNOSISLow grade squamous intraepithelial lesion consistent with HPV effect.CLINICAL HISTORYComment: LMP: BreastFeedingSPECIMEN(A) SCREENING CERVICAL/ENDOCERVICAL LIQUID-BASED PAPPerformed at [facility], [address] [place] [id number] by: MONICA VELA Physical Therapy Attendant Signed Out by: DOLORES WEI MD Reported: 10/26/2017 Normal [facility] Comment on above: Performed By: #### G YN ####[facility] [address] [place] [address] Vital Signs Date Time Vital Sign Value Performing Clinician Facility 01-30-2025 13:43-0400 Body height 152.4 cm Ryan Cochran PA-C Work Phone: [facility] 01-30-2025 13:43-0400 Body mass index (BMI) [Ratio] 31.48 kg/m2 Ryan Hilliardall PA-C Work Phone: [facility] 01-30-2025 13:43-0400 Body weight 73.12 kg Ryan Lavelle PA-C Work Phone: [facility] 01-30-2025 13:43-0400 Diastolic blood pressure 78 mm[Hg] Ryan Lavelle PA-C Work Phone: [facility] 01-30-2025 13:43-0400 Heart rate 88 /min Ryan Lavelle PA-C Work Phone: [facility] 01-30-2025 13:43-0400 Systolic blood pressure 119 mm[Hg] Ryan Dimas PA-C Work Phone: [facility] 01-29-2025 15:21-0400 Body height 152.4 cm Ryan Dimas PA Work Phone: [facility] 01-29-2025 15:21-0400 Body mass index (BMI) [Ratio] 31 kg/m2 Ryan Lavelle PA Work Phone: [facility] 01-29-2025 15:21-0400 Body temperature 98.8 [degF] Ryan Dimas PA Work Phone: [facility] 01-29-2025 15:21-0400 Body weight 72.12 kg Ryan Dimas PA Work Phone: [facility] 01-29-2025 15:21-0400 Diastolic blood pressure 74 mm[Hg] Ryan Dimas PA Work Phone: [facility] 01-29-2025 15:21-0400 Heart rate 67 /min Ryan Dimas PA Work Phone: [facility] 01-29-2025 15:21-0400 Respiratory rate 16 /min Ryan Lavelle PA Work Phone: [facility] 01-29-2025 15:21-0400 SaO2% (BldA) [Mass fraction] 97 % Ryan Dimas PA Work Phone: [facility] 01-29-2025 15:21-0400 Systolic blood pressure 106 mm[Hg] Ryan Lavelle PA Work Phone: [facility] 01-23-2025 09:59-0400 Body height 152.4 cm Ryan Lavelle PA Work Phone: [facility] 01-23-2025 09:59-0400 Body mass index (BMI) [Ratio] 31.3 kg/m2 Ryan Dimas PA Work Phone: [facility] 01-23-2025 09:59-0400 Body temperature 97.5 [degF] Ryan Lavelle PA Work Phone: [facility] 01-23-2025 09:59-0400 Body weight 72.74 kg Ryan Lavelle PA Work Phone: [facility] 01-23-2025 09:59-0400 Diastolic blood pressure 72 mm[Hg] Ryan Lavelle PA Work Phone: [facility] 01-23-2025 09:59-0400 Heart rate 64 /min Ryan Dimas PA Work Phone: [facility] 01-23-2025 09:59-0400 Respiratory rate 17 /min Ryan Lavelle PA Work Phone: [facility] 01-23-2025 09:59-0400 SaO2% (BldA) [Mass fraction] 99 % Ryan Dimas PA Work Phone: [facility] 01-23-2025 09:59-0400 Systolic blood pressure 105 mm[Hg] Ryan Lavelle PA Work Phone: [facility] 01-04-2025 09:41-0400 Body height 152.4 cm Ryan Dimas PA-C Work Phone: [facility] 01-04-2025 09:41-0400 Body mass index (BMI) [Ratio] 30.47 kg/m2 Ryan Lavelle PA-C Work Phone: [facility] 01-04-2025 09:41-0400 Body weight 70.76 kg Ryan Lavelle PA-C Work Phone: [facility] 01-04-2025 09:41-0400 Diastolic blood pressure 72 mm[Hg] Ryan Dimas PA-C Work Phone: [facility] 01-04-2025 09:41-0400 Heart rate 79 /min Ryan Lavelle PA-C Work Phone: [facility] 01-04-2025 09:41-0400 Systolic blood pressure 111 mm[Hg] Ryan Dimas PA-C Work Phone: [facility] 11-15-2024 12:38-0400 Body height 152.4 cm Ryan Lavelle PA-C Work Phone: [facility] 11-15-2024 12:38-0400 Body mass index (BMI) [Ratio] 30.19 kg/m2 Ryan Dimas PA-C Work Phone: [facility] 11-15-2024 12:38-0400 Body weight 70.13 kg Ryan Dimas PA-C Work Phone: [facility] 11-15-2024 12:38-0400 Diastolic blood pressure 82 mm[Hg] Ryan Dimas PA-C Work Phone: [facility] 11-15-2024 12:38-0400 Heart rate 90 /min Ryan Lavelle PA-C Work Phone: [facility] 11-15-2024 12:38-0400 SaO2% (BldA) [Mass fraction] 98 % Ryan Lavelle PA-C Work Phone: [facility] 11-15-2024 12:38-0400 Systolic blood pressure 117 mm[Hg] Ryan Lavelle PA-C Work Phone: [facility] 05-23-2024 11:45-0400 Diastolic blood pressure 69 mm[Hg] Mariela Schulz DO Work Phone: [facility] 05-23-2024 11:45-0400 Heart rate 95 /min Mariela Schulz DO Work Phone: [facility] 05-23-2024 11:45-0400 Respiratory rate 16 /min Mariela Schulz DO Work Phone: [facility] 05-23-2024 11:45-0400 SaO2% (BldA) [Mass fraction] 95 % Mariela Schulz DO Work Phone: [facility] 05-23-2024 11:45-0400 Systolic blood pressure 111 mm[Hg] Mariela Schulz DO Work Phone: [facility] 05-22-2024 21:50-0400 Body height 152.4 cm Mariela Schulz DO Work Phone: [facility] 05-22-2024 21:50-0400 Body mass index (BMI) [Ratio] 27.34 kg/m2 Mariela Schulz DO Work Phone: [facility] 05-22-2024 21:50-0400 Body temperature 97.9 [degF] Mariela Schulz DO Work Phone: [facility] 05-22-2024 21:50-0400 Body weight 63.5 kg Mariela Schulz DO Work Phone: [facility] 07-04-2021 12:42-0500 Body height 155 cm Kinjal Cleveland MD Work Phone: [facility] 07-04-2021 12:42-0500 Body mass index (BMI) [Ratio] 25.05 kg/m2 Kinjal Cleveland MD Work Phone: [facility] 07-04-2021 12:42-0500 Body temperature 97.81 [degF] Kinjal Cleveland MD Work Phone: [facility] 07-04-2021 12:42-0500 Body weight 60.19 kg Kinjal Cleveland MD Work Phone: [facility] 07-04-2021 12:42-0500 Diastolic blood pressure 60 mm[Hg] Kinjal Cleveland MD Work Phone: [facility] 07-04-2021 12:42-0500 Heart rate 67 /min Kinjal Cleveland MD Work Phone: [facility] 07-04-2021 12:42-0500 Respiratory rate 18 /min Kinjal Cleveland MD Work Phone: [facility] 07-04-2021 12:42-0500 SaO2% (BldA) [Mass fraction] 97 % Kinjal Cleveland MD Work Phone: [facility] 07-04-2021 12:42-0500 Systolic blood pressure 92 mm[Hg] Kinjal Cleveland MD Work Phone: [facility] 01-19-2021 09:06-0400 Body temperature 98.29 [degF] Candice Bobby DO Work Phone: [employer] Work Phone: 01-19-2021 09:06-0400 Diastolic blood pressure 89 mm[Hg] Candice Bobby DO Work Phone: [facility] Work Phone: 01-19-2021 09:06-0400 Heart rate 100 /min Candice Bobby DO Work Phone: [facility] Work Phone: 01-19-2021 09:06-0400 SaO2% (BldA) [Mass fraction] 99 % Candice Bobby DO Work Phone: [facility] Work Phone: 01-19-2021 09:06-0400 Systolic blood pressure 138 mm[Hg] Candiceherminia Bahenae DO Work Phone: [facility] Work Phone: 01-18-2021 20:30-0400 Respiratory rate 18 /min Candice Bobby DO Work Phone: [employer] Work Phone: 01-16-2021 23:50-0400 Body height 152.4 cm Candice Bobby DO Work Phone: [employer] Work Phone: 01-16-2021 23:50-0400 Body mass index (BMI) [Ratio] 32.22 kg/m2 Candice Bobby DO Work Phone: [employer] Work Phone: 01-16-2021 23:50-0400 Body weight 74.84 kg Candice Bobby DO Work Phone: [employer] Work Phone: 10-27-2020 10:30-0400 BP Diastolic 65 mm[Hg] [facility] 10-27-2020 10:30-0400 BP Systolic 115 mm[Hg] [facility] 10-27-2020 10:30-0400 Pulse Oximetry 99 % [facility] 10-27-2020 09:53-0400 Pulse (Heart Rate) 91 /min [facility] 10-27-2020 08:10-0400 BMI (Body Mass Index) 30.27 kg/m2 [facility] 10-27-2020 08:10-0400 Body Temperature 97.3 [degF] [facility] 10-27-2020 08:10-0400 Body weight 70.31 kg [facility] 10-27-2020 08:10-[address] [facility] 10-27-2020 08:10-0400 Respiratory Rate 18 /min [facility] 09-27-2019 09:36-0500 BMI (Body Mass Index) 26.37 kg/m2 Era Giordano [facility] 09-27-2019 09:36-0500 Body weight 61.24 kg Era Chaconcock [facility] 09-27-2019 09:36-0500 Height 152.4 cm Era Chaconcock [facility] 01-04-2019 18:19-0400 BMI (Body Mass Index) 30.27 kg/m2 [facility] 01-04-2019 18:19-0400 Body Temperature 97.59 [degF] [facility] 01-04-2019 18:19-0400 BP Diastolic 60 mm[Hg] [facility] 01-04-2019 18:19-0400 BP Systolic 102 mm[Hg] [facility] 01-04-2019 18:19-0400 Height 152.4 cm [facility] 01-04-2019 18:19-0400 Pulse (Heart Rate) 88 /min [facility] 01-04-2019 18:19-0400 Pulse Oximetry 98 % [facility] 01-04-2019 18:19-0400 Respiratory Rate 18 /min [facility] 01-04-2019 18:19-0400 Weight 70.31 kg [facility] 10-08-2017 17:17-0500 BMI (Body Mass Index) 27.97 kg/m2 [facility] 10-08-2017 17:17-0500 Body Temperature 98.1 [degF] [facility] 10-08-2017 17:17-0500 BP Diastolic 63 mm[Hg] [facility] 10-08-2017 17:17-0500 BP Systolic 109 mm[Hg] [facility] 10-08-2017 17:17-0500 Height 152.4 cm [facility] 10-08-2017 17:17-0500 Pulse (Heart Rate) 65 /min [facility] 10-08-2017 17:17-0500 Pulse Oximetry 98 % [facility] 10-08-2017 17:17-0500 Respiratory Rate 16 /min [facility] 10-08-2017 17:17-0500 Weight 64.95 kg [facility] Encounters Encounter Date Encounter Type Care Provider Facility Start: 01-31-2025 ambulatory Ryan Lezama cility:[facility] Start: 01-30-2025 End: 01-30-2025 Office outpatient visit 25 minutes Ryan VIEIRAC Work Phone: [facility] Comment on above: Infiltrating ductal carcinoma of left breast (Primary Dx); Depression, major, recurrent, mild; Class 1 obesity due to excess calories without serious comorbidity with body mass index (BMI) of 31.0 to 31.9 in adult Start: 01-29-[address] Manda Franklin MD -[facility] Start: 01-29-2025 End: 01-29-[address] Ara Franklin MD -[facility] Work Phone: Start: 01-29-2025 End: 01-29-2025 ambulatory Ryan HYMAN Work Phone: [facility] Work Phone: Start: 01-25-2025 End: 01-25-2025 ambulatory Ryan Cochran PA Work Phone: [facility] Work Phone: Start: 01-25-2025 End: 01-25-[address] Tamiko Figueroa MD -[facility] Work Phone: Start: 01-25-2025 End: 01-25-2025 ambulatory Ryan HYMAN Facility:[facility] Start: 01-23-2025 End: 01-23-2025 ambulatory Ryan Cochran PA Work Phone: [facility] Work Phone: Start: 01-23-2025 End: 01-23-[address] Tamiko Figueroa MD -[facility] Work Phone: Start: 01-12-2025 End: 01-12-2025 Subsequent hospital visit by physician Jorge Del Real 2 [facility] Comment on above: Abnormal mammogram o f left breast; Mass of multiple sites of left breast Start: 01-12-2025 End: 01-12-2025 ambulatory RYAN Garcia [facility] Start: 01-10-2025 End: 01-10-2025 Subsequent hospital visit by physician Jorge Del Real 2 [facility] Comment on above: Mass of upper outer quadrant of left breast Start: 01-10-2025 End: 01-10-2025 ambulatory RYAN Radha [facility] Start: 01-04-2025 End: 01-04-2025 Office outpatient visit 25 minutes Ryan Cochran PA-C Work Phone: [facility] Comment on above: Mass of upper outer quadrant of left breast (Primary Dx); Class 1 obesity due to excess calories without serious comorbidity with body mass index (BMI) of 30.0 to 30.9 in adult; Fibrocystic change of breast, left Start: 01-04-2025 End: 01-04-2025 ambulatory [facility] Start: 11-15-2024 End: 11-15-2024 Office outpatient new 45 minutes Ryan Cochran PA-C Work Phone: [facility] Comment on above: Encounter to [facility] with new provider (Primary Dx); Encounter for wellness examination in adult; Glucose intolerance (impaired glucose tolerance); Class 1 obesity due to excess calories without serious comorbidity with body mass index (BMI) of 30.0 to 30.9 in adult; Dietary counseling and surveillance; Intractable menstrual migraine with status migrainosus Start: 11-15-2024 End: 11-15-2024 Patient encounter status Ryan Cochran PA-C Work Phone: [facility] Work Phone: Start: 11-15-2024 End: 11-15-2024 ambulatory [facility] Start: 11-15-2024 End: 11-15-2024 Encounter for general adult medical examination without abnormal findings [facility] Start: 07-03-2024 ambulatory [facility] Start: 05-23-2024 End: 05-25-2024 ambulatory [facility] Start: 05-22-2024 End: 05-23-2024 Emergency department patient visit Mariela Schulz DO Work Phone: [facility] Comment on above: Pneumonia due to inf ectious organism, unspecified laterality, unspecified part of lung (Primary Dx) Start: 05-14-2024 End: 05-15-2024 Emergency department patient visit KEYSHAWN SUEROS [facility] Start: 09-10-2021 Orders Only Kinjal Cleveland MD Work Phone: [facility] Comment on above: 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) Start: 08-26-2021 Orders Only Kinjal Cleveland MD Work Phone: [facility] Comment on above: 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) Start: 07-21-2021 End: 07-21-2021 Office outpatient visit 25 minutes Era Giordano CNP Work Phone: [facility] Comment on above: Instability of left shoulder joint (Primary Dx); Bursitis and tendinitis of shoulder region Start: 07-04-2021 End: 07-04-2021 Office outpatient new 30 minutes Kinjal Cleveland MD Work Phone: [facility] Comment on above: 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); Functional diarrhea Start: 01-16-2021 End: 01-19-2021 Evaluation and management of inpatient Candice Bobby Work Phone: [facility] Start: 10-27-2020 End: 10-27-2020 Emergency department patient visit Debi Pederson Work Phone: [facility] Start: 09-27-2019 End: 09-27-2019 Office outpatient new 30 minutes Era Giordano Work Phone: [facility] Comment on above: Pain in both upper e xtremities (Primary Dx) Start: 01-04-2019 End: 01-04-2019 Patient encounter procedure Ba Hale Work Phone: [facility] Delivery Start: 01-04-2019 End: 01-04-2019 Emergency department patient visit [facility] Emergency Department Start: 10-08-2017 Office/outpatient vi sit, new, level 3 Elton Bauer Work Phone: [facility] Procedures Date Procedure Procedure Detail Performing Clinician Start: 01-29-2025 Immature reticulocyt e fraction Ryan HYMAN Work Phone: Start: 01-29-2025 Total iron binding capacity measurement Ryan HYMAN Work Phone: Start: 01-25-2025 MRI of bilateral arturo asts with contrast Ryan HYMAN Work Phone: Start: 01-12-2025 Bx breast w/device 1 st lesion ultrasound guid Ryan Cochran PA-C Work Phone: Start: 01-12-2025 MG Breast - unilater al Single view for clip placement Ryan Cochran PA-C Work Phone: Start: 01-10-2025 Us breast uni real t toni with image limited Ryan Cochran PA-C Work Phone: Start: 01-10-2025 Diagnostic mammograp hy computer-aided detcj bi Ryan Cochran PA-C Work Phone: Start: 05-23-2024 Ct angiography chest w/contrast/noncontrast Mariela Tam Schulz DO Work Phone: Start: 05-23-2024 Assay of lactate Mariela Tam Schulz DO Work Phone: Start: 05-22-2024 Comprehensive metabo lic panel Mariela Tam Schulz DO Work Phone: Start: 05-22-2024 Radiologic exam ches t 2 views Mariela Tam Schulz DO Work Phone: Start: 05-22-2024 Ecg routine ecg w/le ast 12 lds trcg only w/o i&r Mariela Tam Schulz DO Work Phone: Start: 07-21-2021 Arthrocentesis aspir &/inj major jt/bursa w/o us Era Giordano BRAKE REPAIRER Work Phone: Start: 07-04-2021 Adult depression scr eening assessment Kinjal Cleveland MD Work Phone: Start: 01-18-2021 Blood count hemoglobin Drea Senior DO Work Phone: Start: 01-17-2021 End: 01-19-2021 H/O: section Status post emergency section Candice Bobby DO Work Phone: Start: 01-17-2021 Radiologic exam abdo men 1 view Suri Estrada DO Work Phone: Start: 01-16-2021 Antibody screen Jhony ruth Bobby DO Work Phone: Start: 01-16-2021 Blood typing serologic abo Suri Estrada DO Work Phone: Start: 01-16-2021 Comprehensive metabo lic panel Suri Estrada DO Work Phone: Start: 01-16-2021 Culture bacterial quanttative colony count urine Suri Estrada DO Work Phone: Start: 10-27-2020 Basic metabolic pane l calcium ionized [facility] Start: 10-27-2020 Albumin serum plasma /whole blood [facility] Start: 10-27-2020 Blood count complete auto&auto difrntl wbc Debi Kevin Pederson Work Phone: Start: 07-22-2020 C. TRACHOMATIS, EXTE RNAL RESULT Historical Provider Start: 07-22-2020 GBS, EXTERNAL RESULT Id quirino Provider Start: 07-22-2020 HEPATITIS B, EXTERNA L RESULT Historical Provider Start: 07-22-2020 HEPATITIS C ANTIBODY , EXTERNAL RESULT Historical Provider Start: 07-22-2020 HIV, EXTERNAL RESULT Id quirino Provider Start: 07-22-2020 N. GONORRHOEAE, EXTE RNAL RESULT Historical Provider Start: 07-22-2020 RPR, EXTERNAL RESULT Id quirino Provider Start: 07-22-2020 RUBELLA TITER, EXTER NAL RESULT Historical Provider Start: 05-13-2019 Antibody screen Comment on above: Performed By: #### T +S #### [facility] [address] [place] [address] Start: 01-04-2019 Us retroperitoneal r eal time w/image limited Ba Brigid Hale Work Phone: Start: 01-04-2019 Urinalysis Ba Vaughn iesha Hale Work Phone: H/O: section Status pos t emergency section Candice Bobby Work Phone: Plan of Treatment Date Care Activity Detail Author Start: 2046 Zoster Vaccines (1 of 2) Zoste r Vaccines (1 of 2) [facility] Start: 10-09-2027 [facility] Start: 12-02-2026 DTaP/Tdap/Td Vaccine s (7 - Td or Tdap) DTaP/Tdap/Td Vaccines (7 - Td or Tdap) [facility] Start: 04-09-2025 Influenza vaccination Influenz a Vaccine (Season Ended) [facility] Start: 04-02-2025 End: 04-02-2025 Patient encounter procedure 04/02/2025 9:40 AM EDT Office Visit [facility] [address] [place] [phone] Ryan Cochran, PA-C [address] [place] [address] [facility] Start: 01-30-2025 End: 01-30-2025 Patient encounter procedure 01/30/2025 1:40 PM EDT Office Visit [facility] [address] [place] [phone] Ryan Cochran, PA-Gurdeep [address] [place], [place] [id number] [facility] Start: 01-29-2025 Cobalamin (Vitamin B 12) [Mass/volume] in Serum or Plasma [facility] Start: 01-29-2025 Comprehensive metabo lic 2000 panel - Serum or Plasma [facility] Start: 01-29-2025 Ferritin [Mass/volum e] in Serum or Plasma [facility] Start: 01-29-2025 Iron and Iron bindin g capacity panel - Serum or Plasma [facility] Start: 01-29-2025 [facility] Start: 01-23-2025 Patient referral [facility] Work Phone: Start: 01-23-2025 End: 01-23-2025 Patient encounter procedure 01/23/2025 1:30 PM EDT Office Visit [facility] [address] [place] [id number] Nikki Ballesteros MD [address] [place] [address] [facility] Start: 01-17-2025 End: 01-17-2025 Patient encounter procedure 01/17/2025 9:45 AM EDT Office Visit [facility] [address] [place] [address] Yudy Ferrara MD [address] [place] [address] [facility] Start: 01-12-2025 End: 01-12-2025 Patient encounter procedure [facility] Start: 01-10-2025 End: 01-10-2025 Patient encounter procedure [facility] Start: 01-04-2025 End: 03-06-2026 DBT Breast - left diagnostic BI mammo left diagnostic tomosynthesis Imaging Routine Mass of upper outer quadrant of left breast Expected: 01/04/2025, Expires: 03/06/2026 [facility] Service Area Work Phone: Comment on above: Expected: 01/04/2025 , Expires: 03/06/2026 Start: 01-04-2025 End: 03-06-2026 US Breast - left limited BI US breast limited left Imaging Routine Mass of upper outer quadrant of left breast Expected: 01/04/2025, Expires: 03/06/2026 [facility] Work Phone: Comment on above: Expected: 01/04/2025 , Expires: 03/06/2026 Start: 11-15-2024 End: 11-15-2025 CBC W Auto Differential panel - Blood CBC and Auto Differential Lab Routine Encounter for wellness examination in adult Glucose intolerance (impaired glucose tolerance) Class 1 obesity due to excess calories without serious comorbidity with body mass index (BMI) of 30.0 to 30.9 in adult Expected: 11/15/2024 (Approximate), Expires: 11/15/2025 [facility] Service Area Work Phone: Comment on above: Expected: 11/15/2024 (Approximate), Expires: 11/15/2025 Start: 11-15-2024 End: 11-15-2025 Comprehensive metabolic 2000 panel - Serum or Plasma Comprehensive Metabolic Panel Lab Routine Encounter for wellness examination in adult Glucose intolerance (impaired glucose tolerance) Class 1 obesity due to excess calories without serious comorbidity with body mass index (BMI) of 30.0 to 30.9 in adult Expected: 11/15/2024 (Approximate), Expires: 11/15/2025 [facility] Work Phone: Comment on above: Expected: 11/15/2024 (Approximate), Expires: 11/15/2025 Start: 11-15-2024 End: 11-15-2025 Hemoglobin A1c/Hemoglobin.total in Blood Hemoglobin A1C Lab Routine Encounter for wellness examination in adult Glucose intolerance (impaired glucose tolerance) Class 1 obesity due to excess calories without serious comorbidity with body mass index (BMI) of 30.0 to 30.9 in adult Expected: 11/15/2024 (Approximate), Expires: 11/15/2025 [facility] Work Phone: Comment on above: Expected: 11/15/2024 (Approximate), Expires: 11/15/2025 Start: 11-15-2024 End: 11-15-2025 Lipid 1996 panel - Serum or Plasma Lipid Panel Lab Routine Encounter for wellness examination in adult Glucose intolerance (impaired glucose tolerance) Class 1 obesity due to excess calories without serious comorbidity with body mass index (BMI) of 30.0 to 30.9 in adult Expected: 11/15/2024 (Approximate), Expires: 11/15/2025 [facility] Work Phone: Comment on above: Expected: 11/15/2024 (Approximate), Expires: 11/15/2025 Start: 11-15-2024 End: 11-15-2025 Magnesium [Mass/volume] in Serum or Plasma Magnesium Lab Routine Encounter for wellness examination in adult Glucose intolerance (impaired glucose tolerance) Class 1 obesity due to excess calories without serious comorbidity with body mass index (BMI) of 30.0 to 30.9 in adult Expected: 11/15/2024 (Approximate), Expires: 11/15/2025 [facility] Work Phone: Comment on above: Expected: 11/15/2024 (Approximate), Expires: 11/15/2025 Start: 11-15-2024 End: 11-15-2025 Thyrotropin [Units/volume] in Serum or Plasma Thyroid Stimulating Hormone Lab Routine Encounter for wellness examination in adult Glucose intolerance (impaired glucose tolerance) Class 1 obesity due to excess calories without serious comorbidity with body mass index (BMI) of 30.0 to 30.9 in adult Expected: 11/15/2024 (Approximate), Expires: 11/15/2025 [facility] Work Phone: Comment on above: Expected: 11/15/2024 (Approximate), Expires: 11/15/2025 Start: 11-15-2024 End: 11-15-2025 Thyroxine (T4) free [Mass/volume] in Serum or Plasma Thyroxine, Free Lab Routine Encounter for wellness examination in adult Glucose intolerance (impaired glucose tolerance) Class 1 obesity due to excess calories without serious comorbidity with body mass index (BMI) of 30.0 to 30.9 in adult Expected: 11/15/2024 (Approximate), Expires: 11/15/2025 [facility] Work Phone: Comment on above: Expected: 11/15/2024 (Approximate), Expires: 11/15/2025 Start: 04-09-2024 COVID-19 Vaccine (1 - 2023-24 season) COVID-19 Vaccine ( season) [facility] Start: 04-09-2024 COVID-19 Vaccine ( season) COVID-19 Vaccine ( season) [facility] Start: 04-09-2024 Influenza vaccination Influenza Vacc ine (#1) [facility] Start: 07-04-2022 Depression screening using PHQ-9 (Patient Health Questionnaire 9) score Depression Screening (PHQ-2/9) [facility] Start: 04-09-2021 Influenza vaccination [facility] Start: 04-09-2020 Influenza vaccinatio n given Sequential Influenza Vaccine (#1) [facility] Start: 04-09-2019 Influenza vaccinatio n given [facility] Start: 03-09-2018 Vaccination for robb n papillomavirus HPV VACCINES (1 of 3 - Female 3 Dose Series) [facility] Start: 2017 Screening for malign ant neoplasm of cervix [facility] Start: 2014 Hepatitis C antibody , confirmatory test Hepatitis C Screening [facility] Start: 2014 Hepatitis C screening Hepatitis C Sc reening [facility] Start: 2012 COVID-19 Vaccine (1) COVID-19 Vaccin e (1) [facility] Start: 11-21-2011 HIV screening HIV Screening [facility] Start: 11-21-2011 Vaccination for robb n papillomavirus HPV VACCINES (1 - Female 3-dose series) [facility] Start: 2008 Adolescent depressio n screening assessment Depression Screening (PHQ9) [facility] Start: 2008 COVID-19 Vaccine (1) COVID-19 Vaccin e (1) [facility] Work Phone: Start: 2008 Depression screening using PHQ-9 (Patient Health Questionnaire 9) score Depression Screening (PHQ-2/9) [facility] Start: 11-21-2007 Vaccination for robb n papillomavirus [facility] Start: 03-27-2002 Varicella vaccination Varicell a Vaccines (2 of 2 - 2-dose childhood series) [facility] Start: 2001 COVID-19 Vaccine (1) COVID-19 Vaccin e (1) [facility] Start: 11-21-1999 History and physical examination, annual for health maintenance Wellness Visit [facility] Start: 1996 Depression screening using PHQ-9 (Patient Health Questionnaire 9) score Depression Screening (PHQ9) [facility] Start: 1996 HIV screening HIV Screening [facility] Start: 1996 Lipid panel Lipid Panel [facility] Start: 1996 Screening for Chlamy noa trachomatis Chlamydia Screening [facility] Start: 1996 Screening for malign ant neoplasm of cervix PAP SMEAR [facility] Start: 1996 Yearly Adult Physical Yearly Adult P hysical [facility] Alanine aminotransfe rase [Enzymatic activity/volume] in Serum or Plasma [facility] Albumin [Mass/volume ] in Serum or Plasma [facility] Alkaline phosphatase [Enzymatic activity/volume] in Serum or Plasma [facility] Anion gap in Serum o r Plasma [facility] End: 05-22-2024 Bacteria identified in Blood by Culture [facility] Service Area Work Phone: Comment on above: STAT (Lab) for 1 Occ urrences starting 05/22/2024 until 05/22/2024, 1 completed Bilirubin, total measurement [facility] BUN/Creatinine ratio [facility] Calcium [Mass/volume ] in Serum or Plasma [facility] Carbon dioxide, tota l [Moles/volume] in Central venous blood [facility] Creatinine [Mass/vol ume] in Serum or Plasma [facility] ECG 12 Lead ECG 12 Lead ECG STAT 05/22/2024 9:50 PM EDT [facility] Work Phone: Folate [Moles/volume ] in Serum or Plasma [facility] Glucose [Mass/volume ] in Serum or Plasma [facility] Iron [Mass/mass] in Unspecified specimen [facility] Iron saturation [Mas s Fraction] in Serum or Plasma [facility] Measurement of renal function [facility] MR Breast - bilatera l WO and W contrast IV [facility] Nonrebreather mask oxygen Nonreb reather mask oxygen Respiratory Care Routine As directed - RT (PRN) until discontinued starting 01/16/2021 [facility] Work Phone: Comment on above: As directed - RT (SC N) until discontinued starting 01/16/2021 Oxygen therapy [[facility] Data Set] Initiate Oxygen Therapy Protocol Respiratory Care Routine Daily until discontinued starting 01/17/2021 [facility] Work Phone: Comment on above: Daily until disconti nued starting 01/17/2021 Patient referral [facility] Work Phone: Phase I & II - meter ed glucose Phase I & II - metered glucose Point of Care Testing Routine As Needed until discontinued starting 01/17/2021 [facility] Work Phone: Comment on above: As Needed until disc ontinued starting 01/17/2021 Positron emission tomography with computed tomography [facility] Potassium measurement [facility] Serum chloride measurement [facility] Sodium measurement [facility] Spirometry panel Incentive ramón metry Respiratory Care Routine Every 2hr while awake until discontinued starting 01/17/2021 [facility] Work Phone: Comment on above: Every 2hr while awak e until discontinued starting 01/17/2021 End: 01-17-2021 SURGICAL PATHOLOGY SURGICAL PATHOLOGY Lab Routine One Time for 1 Occurrences starting 01/17/2021 until 01/17/2021 [facility] Work Phone: Comment on above: One Time for 1 Occur rences starting 01/17/2021 until 01/17/2021 End: 01-12-2025 Surgical pathology study [facility] Service Ar ea Work Phone: Comment on above: Once (Lab) for 1 Occ urrences starting 01/12/2025 until 01/12/2025, 1 completed Total iron binding capacity measurement [facility] Total protein measurement [facility] TYPE AND SCREEN TYPE AND SCREEN Blood Bank Routine Every Third Day until discontinued starting 01/16/2021, 1 completed [facility] Work Phone: Comment on above: Every Third Day unti l discontinued starting 01/16/2021, 1 completed Urea nitrogen [Mass/volume] in Serum or Plasma [facility] Immunizations Immunization Date Immunization Notes Care Provider Fa cility 01-17-2021 diphtheria, tetanus toxoids and acellular pertussis vaccine, unspecified formulation Candice Bobby DO Work Phone: [facility] Work Phone: 01-17-2021 measles, mumps and rubella virus vaccine Candice Bobby DO Work Phone: [facility] Work Phone: 12-02-2016 tetanus toxoid, reduced diphtheria toxoid, and acellular pertussis vaccine, adsorbed Kinjal Cleveland MD Work Phone: [facility] 02-27-2002 diphtheria, tetanus toxoids and acellular pertussis vaccine, unspecified formulation Kinjal Cleveland MD Work Phone: [facility] 02-27-2002 measles, mumps and rubella virus vaccine Kinjal Cleveland MD Work Phone: [facility] 02-27-2002 poliovirus vaccine, inactivated Kinjal Cleveland MD Work Phone: [facility] 07-03-1998 diphtheria, tetanus toxoids and acellular pertussis vaccine, unspecified formulation Kinjal Cleveland MD Work Phone: [facility] 07-03-1998 varicella virus vaccine Kinjal Cleveland MD Work Phone: [facility] 04-10-1998 haemophilus influenz ae type b conjugate and Hepatitis B vaccine Kinjal Cleveland MD Work Phone: [facility] 04-10-1998 haemophilus influenz ae type b vaccine, conjugate unspecified formulation [facility] 04-10-1998 measles, mumps and rubella virus vaccine [facility] 07-25-1997 hepatitis B vaccine, pediatric or pediatric/adolescent dosage Kinjal Cleveland MD Work Phone: [facility] 07-03-1997 DTaP Elton Lizette [facility] 06-20-1997 diphtheria, tetanus toxoids and acellular pertussis vaccine, unspecified formulation Kinjal Cleveland MD Work Phone: [facility] 06-20-1997 DTaP [facility] 06-20-1997 haemophilus influenz ae type b conjugate and Hepatitis B vaccine Kinjal Cleveland MD Work Phone: [facility] 06-20-1997 haemophilus influenz ae type b vaccine, conjugate unspecified formulation [facility] 06-20-1997 poliovirus vaccine, inactivated [facility] 06-20-1997 trivalent poliovirus vaccine, live, oral Kinjal Cleveland MD Work Phone: [facility] 04-04-1997 diphtheria, tetanus toxoids and acellular pertussis vaccine, unspecified formulation Kinjal Cleveland MD Work Phone: [facility] 04-04-1997 DTaP [facility] 04-04-1997 haemophilus influenz ae type b vaccine, conjugate unspecified formulation [facility] 04-04-1997 poliovirus vaccine, inactivated [facility] 04-04-1997 trivalent poliovirus vaccine, live, oral Kinjal Cleveland MD Work Phone: [facility] 01-24-1997 diphtheria, tetanus toxoids and acellular pertussis vaccine, unspecified formulation Kinjal Cleveland MD Work Phone: [facility] 01-24-1997 DTaP [facility] 01-24-1997 haemophilus influenz ae type b vaccine, conjugate unspecified formulation [facility] 01-24-1997 poliovirus vaccine, inactivated [facility] 01-24-1997 trivalent poliovirus vaccine, live, oral Kinjal Cleveland MD Work Phone: [facility] Payers Date Payer Category Payer Self-pay 2023 [facility] [id number] 2023 Unknown MARISELA ANTONIO BETHANY ADITIONAL [id number] 2023-Present [address] [place] [address] [id number] 2023 Unknown [id number] 2020 Medicaid [facility] MANAGED [facility] MEDICAID COMMUNITY PLAN [id number] 2020-Present [id number] 2020 Medicaid [facility] MANAGED [facility] MEDICAID COMMUNITY PLAN [id number] 2020-Present [phone] [address] [place] [address] [id number] 2020 Medicare [facility] MEDICARE [facility] DUAL COMPLETE [id number] 2020-Present [id number] 2018 Private Health Insurance [id number] 2016 Medicaid [id number] 1996 Unknown [id number] [id number]. 2.902 1996 Unknown [id number] [id number]. 2.903 1996 Unknown [id number] 2.16.840.1.236013.3.579. 2.903 1996 Unknown [id number] 2.16.840.1.014166.3.579. 2.1244 1996 Unknown [id number] 2.16.840.1.548646.3.579. 2.1244 1996 Unknown [id number] 2.16.840.1.469041.3.579. 2.1243 1996 Unknown [id number] 2.16.840.1.321969.3.579. 2.1243 1996 Unknown [id number] 2.16840.1.066734.3.579. 2.1243 1996 Unknown [id number] 2.16.840.1.754424.3.579. 2.1243 1996 Unknown [id number] 2.16840.1.087562.3.579. 2.1243 Unknown [id number]. 13 Unknown [id number] 2.16840.1.439595.3.579. 2.462 Unknown [id number] 2.16840.1.836429.3.579. 2.462 Unknown [id number] 2.16840.1.196574.3.579. 2.462 Unknown [id number] 2.16840.1.641276.3.579. 2.462 Unknown [id number] Social History Date Type Detail Facility Start: 11-13-2017 End: 11-15-2024 Tobacco smoking status [facility] Never smoker [facility] Start: 1995 Sex Assigned At Not on file [facility] Start: 08-23-2018 [facility] Start: 10-02-2019 End: 07-21-2021 Alcohol intake Current non-drinker of alcohol (finding) [facility] Start: 10-27-2020 End: 11-15-2024 Tobacco use and exposure Never used [facility] Start: 05-13-2024 End: 01-12-2025 Exposure to SARS-CoV-2 (event) Not sure [facility] Start: 01-19-2021 Alcohol intake Lifetime non-d myron (finding) [facility] Work Phone: Start: 01-16-2021 End: 07-04-2021 History SDOH Alcohol Frequency 1 [facility] Work Phone: Start: 07-04-2021 History SDOH Social Connections Get Together 3 [facility] Start: 07-04-2021 History SDOH Financial 5 [facility] Start: 07-04-2021 History SDOH Transport Med 2 [facility] Start: 05-23-2024 Tobacco smoking status [facility] Tobacco smoking consumption unknown [facility] Start: 11-15-2024 End: 01-30-2025 Gender identity Not on file [facility] Work Phone: Start: 11-15-2024 End: 01-30-2025 Alcoholic beverage intake Current drinker of alcohol (finding) [facility] Work Phone: Start: 11-15-2024 End: 01-30-2025 History of Social function [facility] Work Phone: Start: 11-15-2024 Alcohol Comment [facility] Start[facility] 1995 [facility]: 01-12-2025 Gender identity Identifies as female gender (finding) [facility] Work Phone: Start: 01-12-2025 Sexual orientation Heterosexual (fin ding) [facility] Work Phone: NEGATED: Highlighted rowStart: NINF History of tobacco use Passive smoker [facility] Work Phone: Functional Status Date Assessment Result Facility 01-30-2025 Patient Health [facility] ionnaire 2 item (PHQ-2) [Reported] [facility] Work Phone: Clinical Notes 01-16-2021 to 01-30-2025 Ryan Cochran PA-C - 01/30/2025 1:40 PM EDT Note Date & Type Note Facility 01-30-2025 History of Present illness Narrative Subjective Patient ID: Shauna Rainey is a 29 y.o. 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 and has followed with the surgeon and specialists in [place] a few times She is awaiting genetic testing She is happy with her care at this time She states she has a good support system and zia which has helped her navigate through the last few weeks Med check - currently not taking meds and denies changes in meds in the past year prior to this Depression in the past when her child was in the nicu Lexapro in the past - hx of chronic diarrhea Denies trying other meds She is interested in starting something given the recent breast cancer diagnosis - she has agreed to zoloft - 25 mg and if doing well can inc to 50 mg Discussed buspar as well if needed Preventative testing PAP - [facility] Mammo DEXA Colon Fall NEG November 2024 PHQ2 - NEG November 2024 Problem List[1] Review of Systems Constitutional: Negative for chills, fatigue and fever. HENT: Negative for congestion, rhinorrhea, sinus pain, sore throat and tinnitus. Eyes: Negative for discharge, redness and visual disturbance. Respiratory: Negative for cough, chest tightness, shortness of breath and wheezing. Cardiovascular: Negative for chest pain, palpitations and leg swelling. Gastrointestinal: Negative for abdominal pain, constipation, diarrhea, nausea and vomiting. Endocrine: Negative for cold intolerance and heat intolerance. Genitourinary: Negative for flank pain, frequency and urgency. Musculoskeletal: Negative for back pain, gait problem and neck pain. Skin: Negative for rash and wound. Neurological: Negative for dizziness, tremors, syncope, numbness and headaches. Hematological: Does not bruise/bleed easily. Psychiatric/Behavioral: Positive for dysphoric mood. Negative for confusion, sleep disturbance and suicidal ideas. The patient is nervous/anxious. Medical History[2] Surgical History[3] Family History[4] Social History[5] Allergies[6] Current Medications[7] Objective BP 119/78 Pulse 88 Ht 1.524 m (5') Wt 73.1 kg (161 lb 3.2 oz) BMI 31.48 kg/m Physical Exam Vitals reviewed. Constitutional: Appearance: Normal appearance. She is obese. HENT: Head: Normocephalic. Right Ear: External ear normal. Left Ear: External ear normal. Nose: Nose normal. No congestion or rhinorrhea. Mouth/Throat: Mouth: Mucous membranes are moist. Eyes: Extraocular Movements: Extraocular movements intact. Conjunctiva/sclera: Conjunctivae normal. Pupils: Pupils are equal, round, and reactive to light. Cardiovascular: Rate and Rhythm: Normal rate and regular rhythm. Pulses: Normal pulses. Pulmonary: Effort: Pulmonary effort is normal. Breath sounds: Normal breath sounds. Abdominal: General: Bowel sounds are normal. Palpations: Abdomen is soft. Tenderness: There is no abdominal tenderness. There is no right CVA tenderness or left CVA tenderness. Musculoskeletal: General: No tenderness. Normal range of motion. Cervical back: Normal range of motion and neck supple. No tenderness. Skin: General: Skin is warm and dry. Neurological: General: No focal deficit present. Mental Status: She is alert and oriented to person, place, and time. Psychiatric: Mood and Affect: Mood normal. Behavior: Behavior normal. Testing Reviewed breast testing again Labs are ordered but she likely will have labs done with her specialists Impression MDM 1) COMPLEXITY: 1 UNDIAGNOSED NEW PROBLEM WITH UNCERTAIN PROGNOSIS 2)DATA: TESTS INTERPRETED AND OR ORDERED, TOOK INDEPENDENT HISTORY OR RECORDS REVIEWED 3)RISK: MODERATE RISK DUE TO NATURE OF MEDICAL CONDITIONS/COMORBIDITY OR MEDICATIONS ORDERED OR SURGICAL OR PROCEDURE REFERRAL, . Reviewed labs and Testing on file Patient to follow diet low in cholesterol, fat, and sodium. Patient is advised to increase Exercise. Patient is recommended to lose weight. Reviewed Meds and discussed common side effects Continue as directed Patient is strongly advised to be compliant with recommendations. Return to Clinic sooner if needed. Patient denies further questions/concerns at this time Assessment/Plan Problem List Items Addressed This Visit ICD-10-CM Class 1 obesity due to excess calories without serious comorbidity with body mass index (BMI) of 31.0 to 31.9 in adult E66.811, E66.09, Z68.31 Infiltrating ductal carcinoma of left breast - Primary C50.912 Depression, major, recurrent, mild F33.0 Relevant Medications sertraline (Zoloft) 50 mg tablet FU in 1-2 mo with med check /mood check [1] Patient Active Problem List Diagnosis Glucose intolerance (impaired glucose tolerance) Class 1 obesity due to excess calories without serious comorbidity with body mass index (BMI) of 30.0 to 30.9 in adult Dietary counseling and surveillance Intractable menstrual migraine with status migrainosus [2] Past Medical History: Diagnosis Date Encounter for gynecological examination (general) (routine) without abnormal findings Pap test, as part of routine gynecological examination Other conditions influencing health status Menstruation [3] Past Surgical History: Procedure Laterality Date SECTION, LOW TRANSVERSE 12-01-16 05-11-19 01-17-21 OTHER SURGICAL HISTORY 06/09/2019 section [4] Family History Problem Relation Name Age of Onset Diverticulitis Mother Colon cancer Father's Brother Lung cancer Paternal Grandfather Alcohol abuse Father Jonathan [5] Social History Tobacco Use Smoking status: Never Passive exposure: Never Smokeless tobacco: Never Vaping Use Vaping status: Never Used Substance Use Topics Alcohol use: Yes Comment: rare Drug use: Never [6] No Known Allergies [7] No current outpatient medications on file. No current facility-administered medications for this visit. documented in this encounter [facility] Work Phone: 01-29-2025 Progress note [facility] 01-29-2025 Progress note Note Date/Time January 29, 2025 4:15pm [facility] [address] [address] OFFICE VISIT Date of Service: 01/29/25 1515 MR#: [id number] Acct: [id number] Name: BRIGIDSHAUNA KIDD Rep #: [id number] : 1995 From: Ara steele MD Age/Sex: 29/F Location: [facility] Status: Signed HPI Subjective Date of Service 01/29/25 Chief Complaint breast cancer History of Present Illness 29-year-old female premenopausal at diagnosis who noted nipple inversion than diffuse hardness and distorted meant of the left breast for about 1 year before she sought medical care. There is no family history of breast cancer. January 10, 2025 diagnostic mammogram and ultrasound examination of the left breastshowing multiple masses highly suggestive of malignancy BI-RADS 5. Screening evaluation of the left axilla did not show enlarged or abnormal appearing lymph nodes. 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 The cancer is ER negative, SC negative and HER2/camila overexpressed 3+. January 25, 2025 breast MRI: FINDINGS: TISSUE DENSITY: The breast tissue is heterogeneously dense, which may obscure small masses. Background Parenchymal Enhancement: Mild RIGHT Breast: No suspicious mass or non-mass enhancement. LEFT Breast: There are multiple abnormal enhancing masses noted throughout the left breast in different quadrants. There appear to be 9 masses, most of which are somewhat confluent and appear to be contiguous. The largest confluence of masses cover an area measuring approximately 5 cm. Masses do not appear to involve the dermis or chest wall. Other Findings: A 5 mm enhancing mass is seen in the upper-outer quadrant of theleft breast far posteriorly, approximately 8 cm from the nipple. This appears to represent an abnormal lymph node. The visualized portions of the thoracic and abdominal viscera are unremarkable. IMPRESSION: OVERALL FINAL ASSESSMENT BI-RADS 6: KNOWN BIOPSY-PROVEN MALIGNANCY. [facility] Medical History (Updated 01/29/25 @ 16:[address] Ara Franklin MD) Anemia Axillary lymphadenopathy Surgical History (Updated 01/29/25 @ 15:21 by Gini Ac) delivery delivered Family History (Updated 01/29/25 @ 15:20 by Gini Ac) Other No pertinent family history Social History Smoking Status: Never smoker alcohol intake: never ROS Constitutional Constitutional: Reports systems reviewed and no addt'l complaints, except as documented and fatigue; Denies anorexia, fever(s) or weight loss Eyes Eyes: Reports systems reviewed and no addt'l complaints, except as documented; Denies change in vision or double vision ENT HEENT: Reports systems reviewed and no addt'l complaints, except as documented; Denies mouth lesions Cardiovascular Cardiovascular: Reports systems reviewed and no addt'l complaints, except as documented; Denies chest pain with activity or edema Respiratory/Chest Respiratory/Chest: Reports systems reviewed and no addt'l complaints, except as documented, as per HPI, breast mass and change in breast shape; Denies cough, dyspnea or breast skin changes Gastrointestinal Gastrointestinal: Reports systems reviewed and no addt'l complaints, except as documented; Denies change in bowel habits, hematochezia or melena Genitourinary Genitourinary: Reports systems reviewed and no addt'l complaints, except as documented and other Details: Last menstrual period was January 2025 ; Denies dysuria or hematuria Musculoskeletal Musculoskeletal: Reports systems reviewed and no addt'l complaints, except as documented; Denies back pain Integumentary Integumentary: Reports systems reviewed and no addt'l complaints, except as documented and as per HPI Neurologic Neurologic: Reports systems reviewed and no addt'l complaints, except as documented, headache(s) and other Details: Chronic occasional headaches no change ; Denies focal weakness or paresthesias Psychiatric Psychiatric: Reports systems reviewed and no addt'l complaints, except as documented Endocrine Endocrinology: Reports systems reviewed and no addt'l complaints, except as documented Hematologic/Lymphatic Hematologic/Lymphatic: Reports systems reviewed and no addt'l complaints, exceptas documented; Denies lymphadenopathy Allergic/Immunologic Allergic/Immunologic: Reports systems reviewed and no addt'l complaints, except as documented Intake Vital Signs 01/23/25 09:59 01/29/25 15:16 01/29/25 15:21 Height 5 ft 5 ft 5 ft Weight: 72.745 kg 72.121 kg BMI 31.3 31.0 BP 105/72 106/74 Blood Pressure Location Rt brachial Lt brachial Position Sitting Sitting Respiration 17 16 Pulse 64 67 Pulse Source Monitor Monitor Temp 97.5 F L 98.8 F Temperature Source Temporal Artery Pulse Oximetry (%) 99 97 Oxygen Delivery Method room air room air Intake Is patient in pain?: No Allergies No Known Allergies Allergy (Verified 01/29/25 15:19) Medications ?Medication ?Instructions ?Recorded ?Confirmed ?Type acetaminophen 325 mg tablet 650 mg PO Q4-6H PRN 01/29/25 History (Tylenol) Have you fallen in the past year?: No Central Venous Access Central Venous Access: No Exam Physical Exam Narrative ECOG 0 Const alert, oriented x3, no apparent distress and average body habitus General Appearance: cooperative and anxious HEENT normocephalic Face and Sinus: normal facial exam Mouth: oral and palatal mucosa normal Eyes General Eye: normal appearance of both eyes Neck no lymphadenopathy and no JVD Lymph Lymphatic: no lymphadenopathy noted Chest Negative for inspection of breasts normal or palpation of breasts normal Chest Narrative: Left breast nipple and skin retractions and distortion of the shape of the breast but no inflammatory changes or ulcerations. The entire breast s indurated and hard but not fixed to the underlying muscle Breast/Axilla Palpation: normal palpation of the axillae Resp clear to auscultation bilaterally Cardio regular rate and regular rhythm Jugular Venous Distention: Negative for JVD GI soft to palpation, non-tender and non-distended; Negative for hepatosplenomegaly Back/Spine no thoracic nor lumbar tenderness Extremity no clubbing, cyanosis or edema Skin no rashes or lesions noted and no wounds Neuro oriented x3, CN's II-XII intact bilaterally, moves all extremities and no focal motor deficits Coordination / Balance: [id number] test normal Speech: speech normal Gait (Neuro): normal gait Psych mental status grossly normal Mood & Affect: anxious Coding Level of Care Code Off vis,new,level 5 Exam Problem Focused Diagnoses HER2-positive carcinoma of left breast C50.912; Z17.31 Axillary lymphadenopathy R59.0 Anemia, unspecified type D64.9 Anemia type: unspecified type Assessment and Plan Assessment and Plan (1) HER2-positive carcinoma of left breast: Status: Acute (2) Axillary lymphadenopathy: Status: Acute (3) Anemia: Status: Chronic Qualifiers: Anemia type: unspecified type Qualified Code(s): D64.9 - Anemia, unspecified Orders: Orders CBC W/Diff, Automated Today C50.912 - Malignant neoplasm of unspecified site ofleft female breast Retic Panel Count Today C50.912 - Malignant neoplasm of unspecified site of left female breast Ferritin Today C50.912 - Malignant neoplasm of unspecified site of left female breast Iron+Iron Binding Capacity Today C50.912 - Malignant neoplasm of unspecified site of left female breast Vitamin B12 Today C50.912 - Malignant neoplasm of unspecified site of left female breast FOLATES,SERUM (FOLIC ACID) Today C50.912 - Malignant neoplasm of unspecified site of left female breast Comprehensive Metabolic Profil Today C50.912 - Malignant neoplasm of unspecified site of left female breast Plan 29-year-old female, premenopausal at diagnosis, with multifocal (at least 9 lesions identified on MRI of the breast) invasive ductal cancer of the left breast ER negative, SC negative, HER2/camila overexpressed 3+ with an abnormal leftaxillary lymph node on MRI. This is at least locally advanced cancer. Chronic comorbid conditions: Headaches, anemia. Plan: 1. Complete staging preferably with PET CT based on which systemic chemoimmunotherapy will be prescribed and has prognostic implications. 2. Follow-up with surgery for left axillary lymph node FNA or biopsy for axillary staging prior to neoadjuvant systemic therapy. 3. Discussed prevention during treatment and egg harvesting since systemic therapy has a significant risk of inducing menopause. 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 4. Genetic testing has been ordered by surgery. 5. Update CBC, chemistry panel, iron and B12 profiles to rule out any nutritional deficiencies and supplement these if needed. Preimmune therapy treatment cardiac echo to schedule. 6. Central venous access for systemic therapy to be scheduled. 7. Once the staging is completed, a determination of which systemic chemotherapy and immunotherapy drugs will be used and we will request insurance authorization. Patient was seen with her , impression and plan discussed Ara Franklin MD Cash Applications Clerk, [facility] Divisions of Medical Oncology & Hematology Department of Internal Medicine [place] [phone] This note was generated using a voice recognition system software. Although itwas reviewed by the author prior to finalization, it may still contain incorrectwords, spelling, and punctuation that were not noted when reviewing prior to saving. If a clinically significant typo or inaccurately typed phrase is noted, please notify the author. Clinical Quality Measures Falls Risk Screening/Assistive Devices Have you fallen in the past year?: No 01/29/25 8884 <Electronically signed by Ara hawley MD> Date _ Ara Franklin MD Cosigner Signature: Date (if applicable) CC: Dr. Tamiko Figueroa MD; YENNI Hartman ~ [facility] Work Phone: 1(900) 221-324606-17-2025 Evaluation note* Diagnosis Onset Date Resolution Status Admit Date HER2-positive carcinoma of l eft breast acute January 23, 2025 9:48am Invasive ductal carcinoma of left breast acute January 23, 2025 9:48am 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 deleted January 23, 2025 9:48am Axillary lymphadenopathy acute January 29, 2025 3:08pm HER2-positive carcinoma of l eft breast acute January 29, 2025 3:08pm Anemia chronic January 29 3:08pm [facility] Work Phone: 1(298) 828-443006-17-2025 Progress [facility] [address] [place] [address] OFFICE VISIT Date of Service: 01/23/25 MR#: [id number] Acct: [id number] Name: SHAUNA RAINEY Rep #: [id number] : 1995 Provider: Dr. Niall Figueroa MD Age/Sex: 29/F Location: [facility] Status: Signed Intake Vital Signs 01/23/25 09:59 Height 5 ft Weight: 160 lb 6 oz BMI 31.3 BP 105/72 Blood Pressure Location Rt brachial Position Sitting Respiration 17 Pulse 64 Pulse Source Monitor Temp 97.5 F L Temp Source Temporal Pulse Oximetry (%) 99 Oxygen Delivery Method room air Intake Visit Reasons: BREAST CANCER- DISCUSS SX Chief Complaint: breast cancer-discuss sx Is patient in pain?: No Allergies No Known Allergies Allergy (Verified 01/23/25 10:01) Medications ?Medication ?Instructions ?Recorded ?Confirmed ?Type acetaminophen 325 mg tablet 650 mg PO Q4-6H PRN 01/23/25 History (Tylenol) PFSH Surgical History (Updated 01/23/25 @ 09:58 by Nikki Vazquez) delivery delivered Social History (Updated 01/23/25 @ 09:59 by Nikki Vazquez) Smoking Status: Never smoker alcohol intake: never HPI HPI HPI: 29-year-old female states that she noticed some inversion of her areolar about ayear ago. States inlast few months she noticed that her left breast was more firm unable to feel discrete masses. Patient had mammography which showed spiculated masses in the left breast-- no masses in the right-- as well as ultrasound which showed 4 masses 3 were biopsy showed invasive ductal carcinoma grade 2-3, ER/SC negative, HER2 positive at in [place]. Ultrasound did not show any abnormal or large left axillary lymph nodes. Patient's age of menses 13, age at time of of first child 21, no family history of breast cancer, no previous breast biopsies prior to the most recent biopsies. Patient denies any nipple discharge. ROS General General: Yes weight change, fatigue and breast cancer; No appetite or colon cancer HEENT HEENT: No difficulty swallowing, eye injury, eye surgery, swollen glands or hoarseness Endo Endocrine: No thyroid disease, diabetes mellitus, thyroid cancer, Hair loss, heat intolerance or cold intolerance Skin Skin: No rash or changing moles Breast Breast: Yes left breast lump, breast pain, abnormal mammogram and abnormal US; No right breast lump, nipple discharge or breast enlargement Additional Details: Positive Invasive ductal carcinoma Musc Musculoskeletal: No back problems, arthritis, rheumatoid arthritis, gout or joint pain Cardio Cardiovascular: No murmur, pacemaker, heart disease, atrial fibrillation, high blood pressure, heart attack, heart stent, palpitations, shortness of breath with exertion or chest pain Psych Psychiatric: No depression, anxiety or hearing voices Resp Respiratory: No shortness of breath, No sleep apnea, No cough, No COPD, No asthma, No emphysema andNo wheezing Gastro Gastrointestinal: No abdominal pain, No nausea or vomiting, Yes diarrhea, No constipation, No bloodin stool, No acid reflux, No hemorrhoids, No ulcers, No gallbladder problem and No black,tarry stools [place] Hematologic: No blood thinners, No blood disorders, No bleeding, No anemia and No blood clots Neuro Neurologic: No numbness and No tingling Exam Const General: cooperative, healthy appearing and no acute distress [facility] Head: normal to inspection Chest Other: Breast inspection: Left breast resolving ecchymosis from biopsies, multiple firmareas noted on inspection of left breast Right breast: Fibroglandular tissue, no masses on exam, no nipple discharge or pain, no change in overlying skin Left breast: multiple firm areas especially in the upper outer quadrant, inversion of part of her areolar superior to her nipple, no nipple discharge, resolving ecchymosis No axillary or supraclavicular adenopathy bilaterally Resp Effort & Inspection: normal respiratory effort Cardio Rate: regular rate GI Inspection: non-distended Palpation: soft Skin General: no rashes or lesions noted Neuro General: patient oriented x3 Extrem General: no clubbing, cyanosis or edema Psych Affect: normal affect Assessment and Plan Assessment and Plan (1) 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: Status: Deleted (2) HER2-positive carcinoma of left breast: Status: Acute (3) Invasive ductal carcinoma of left breast: Status: Acute Comment: Left breast?3 biopsied, 4 lesions total Orders: Orders Breast Bilateral W/O and W Today C50.919 - Malignant neoplasm of unspecified site of unspecified female breast Referrals Oncology C50.919 - Malignant neoplasm of unspecified site of unspecified female breast Plastic surgery C50.919 - Malignant neoplasm of unspecified site of unspecified female breast Genetic Counseling, [facility] C50.919 - Malignant neoplasm of unspecified site of unspecified female breast Plan Reviewed patient's mammography as well as ultrasound with the patient and her I did also personally review. Discussed with patient and her since she is HER2 positive, ER/SC negative, will refer to oncology. Likely she will receive neoadjuvant due to multifocal left breast tumors andfor genetic testing. Did discuss port placement with the patient. Did also place an order for MRI now. Patient is also aware that if any lymph nodes are suspicious on MRI would biopsy prior to starting neoadjuvant treatment-currently not suspicious on ultrasound. Will plan for repeat MRI once neoadjuvant is completed before surgery. I have discussed above with the patient- Port-a-Cath placement. Right possible left IJ Patient has been counseled as to the risks/benefits of the procedure. I have explained the risks ofthe surgery, including but not limited to: infection, bleeding, injury to any blood vessels/nerves,injury to lungs (such as pneumothorax or hemothorax and need for chest tube), not having any access, nonfunctioning of port due to thrombosis, infection of port, etc. the patient understands and agrees to proceed. I have answered all the patient's questions to the patient?s satisfaction and the patient has no further questions. I have given the patient options for initial surgical treatment after neoadjuvant treatment. Options are the following: lumpectomy followed by radiation therapy vs. mastectomy vs. mastectomy followedby immediate reconstruction. I have described the procedures to the patient. I have describedthe advantages and disadvantages of the options, but I have told the patient that among the options, the survival rate for breast cancer is the same. I have told the patient that with all the surgeries that a sentinel lymph node biopsy is required. I have described the procedure of sentinel lymph node biopsyto the patient. I have told the patient that if the biopsy is positive for metastatic disease, then a full axillary lymph node dissection isrequired. I have told the patient that adjuvant chemotherapy will be required should the lymph nodes reveal metastatic disease. Also, a full lymph node dissection will increase the risk for lymphedema, especially if there are 4 or more lymph nodes positive for metastatic disease and radiation to the axilla is also required. I have told the patient the risks of surgery, including but not limited to: infection, bleeding, scar tissue, seroma and persistent seroma, lymph leak, injury to any blood vessels, injury to any nerves (particularly the long thoracic, the thoracodorsal, and the second intercostal brachial and the resultant sequelae), lymphedema, cosmetic deformity, dysesthesias, wound inf ections, further surgery (especially if margins are not clear), complicationsof anesthesia, etc. the patient understands. Patient is planning for likely mastectomy with reconstruction. Will refer patient to Dr. Pantoja. Tamiko Figueroa M.D. Pager: [phone] [facility] [address] [place] [address], [address] [place] [address] Office: 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 Aden Winslow MD; Dr. Ara Franklin MD; Dr. Michael Pantoja MD; YENNI Paige ~ [facility]06-17-2025 Progress note Author Tamiko Figueroa [facility] Note Date/Time January 23, 2025 10:5 0am [facility] [address] [place] [address] OFFICE VISIT Date of Service: 01/23/25 MR#: [id number] Acct: [id number] Name: SHAUNA RAINEY Rep #: [id number] : 1995 Provider: Dr. Niall Figueroa MD Age/Sex: 29/F Location: [facility] Status: Signed Intake Vital Signs 01/23/25 09:59 Height 5 ft Weight: 160 lb 6 oz BMI 31.3 BP 105/72 Blood Pressure Location Rt brachial Position Sitting Respiration 17 Pulse 64 Pulse Source Monitor Temp 97.5 F L Temp Source Temporal Pulse Oximetry (%) 99 Oxygen Delivery Method room air Intake Visit Reasons: BREAST CANCER- DISCUSS SX Chief Complaint: breast cancer-discuss sx Is patient in pain?: No Allergies No Known Allergies Allergy (Verified 01/23/25 10:01) Medications ?Medication ?Instructions ?Recorded ?Confirmed ?Type acetaminophen 325 mg tablet 650 mg PO Q4-6H PRN 01/23/25 History (Tylenol) PFSH Surgical History (Updated 01/23/25 @ 09:58 by Nikki Vazquez) delivery delivered Social History (Updated 01/23/25 @ 09:59 by Nikki Vazquez) Smoking Status: Never smoker alcohol intake: never HPI HPI HPI: 29-year-old female states that she noticed some inversion of her areolar about ayear ago. States in last few months she noticed that her left breast was more firm unable to feel discrete masses. Patient had mammography which showed spiculated masses in the left breast-- no masses in the right-- as well as ultrasound which showed 4 masses 3 were biopsy showed invasive ductal carcinoma grade 2-3, ER/SC negative, HER2 positive at in [place]. Ultrasound did not show any abnormal or large left axillary lymph nodes. Patient's age of menses 13, age at time of of first child 21, no family history of breast cancer, no previous breast biopsies prior to the most recent biopsies. Patient denies any nipple discharge. ROS General General: Yes weight change, fatigue and breast cancer; No appetite or colon cancer HEENT HEENT: No difficulty swallowing, eye injury, eye surgery, swollen glands or hoarseness Endo Endocrine: No thyroid disease, diabetes mellitus, thyroid cancer, Hair loss, heat intolerance or cold intolerance Skin Skin: No rash or changing moles Breast Breast: Yes left breast lump, breast pain, abnormal mammogram and abnormal US; No right breast lump, nipple discharge or breast enlargement Additional Details: Positive Invasive ductal carcinoma Musc Musculoskeletal: No back problems, arthritis, rheumatoid arthritis, gout or joint pain Cardio Cardiovascular: No murmur, pacemaker, heart disease, atrial fibrillation, high blood pressure, heart attack, heart stent, palpitations, shortness of breath with exertion or chest pain Psych Psychiatric: No depression, anxiety or hearing voices Resp Respiratory: No shortness of breath, No sleep apnea, No cough, No COPD, No asthma, No emphysema and No wheezing Gastro Gastrointestinal: No abdominal pain, No nausea or vomiting, Yes diarrhea, No constipation, No blood in stool, No acid reflux, No hemorrhoids, No ulcers, No gallbladder problem and No black,tarry stools [place] Hematologic: No blood thinners, No blood disorders, No bleeding, No anemia and No blood clots Neuro Neurologic: No numbness and No tingling Exam Const General: cooperative, healthy appearing and no acute distress [facility] Head: normal to inspection Chest Other: Breast inspection: Left breast resolving ecchymosis from biopsies, multiple firmareas noted on inspection of left breast Right breast: Fibroglandular tissue, no masses on exam, no nipple discharge or pain, no change in overlying skin Left breast: multiple firm areas especially in the upper outer quadrant, inversion of part of her areolar superior to her nipple, no nipple discharge, resolving ecchymosis No axillary or supraclavicular adenopathy bilaterally Resp Effort & Inspection: normal respiratory effort Cardio Rate: regular rate GI Inspection: non-distended Palpation: soft Skin General: no rashes or lesions noted Neuro General: patient oriented x3 Extrem General: no clubbing, cyanosis or edema Psych Affect: normal affect Assessment and Plan Assessment and Plan (1) 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: Status: Deleted (2) HER2-positive carcinoma of left breast: Status: Acute (3) Invasive ductal carcinoma of left breast: Status: Acute Comment: Left breast?3 biopsied, 4 lesions total Orders: Orders Breast Bilateral W/O and W Today C50.919 - Malignant neoplasm of unspecified site of unspecified female breast Referrals Oncology C50.919 - Malignant neoplasm of unspecified site of unspecified female breast Plastic surgery C50.919 - Malignant neoplasm of unspecified site of unspecified female breast Genetic Counseling, [facility] C50.919 - Malignant neoplasm of unspecified site of unspecified female breast Plan Reviewed patient's mammography as well as ultrasound with the patient and her I did also personally review. Discussed with patient and her since she is HER2 positive, ER/SC negative, will refer to oncology. Likely she will receive neoadjuvant due to multifocal left breast tumors and for genetic testing. Did discuss port placement with the patient. Did also place an order for MRI now. Patient is also aware that if any lymph nodes are suspicious on MRI would biopsy prior to starting neoadjuvant treatment-currently not suspicious on ultrasound. Will plan for repeat MRI once neoadjuvant is completed before surgery. I have discussed above with the patient- Port-a-Cath placement. Right possible left IJ Patient has been counseled as to the risks/benefits of the procedure. I have explained the risks of the surgery, including but not limited to: infection, bleeding, injury to any blood vessels/nerves, injury to lungs (such as pneumothorax or hemothorax and need for chest tube), not having any access, nonfunctioning of port due to thrombosis, infection of port, etc. the patient understands and agrees to proceed. I have answered all the patient's questions to the patient?s satisfaction and the patient has no further questions. I have given the patient options for initial surgical treatment after neoadjuvant treatment. Options are the following: lumpectomy followed by radiation therapy vs. mastectomy vs. mastectomy followed by immediate reconstruction. I have described the procedures to the patient. I have describedthe advantages and disadvantages of the options, but I have told the patient that among the options, the survival rate for breast cancer is the same. I have told the patient that with all the surgeries that a sentinel lymph node biopsy is required. I have described the procedure of sentinel lymph node biopsyto the patient. I have told the patient that if the biopsy is positive for metastatic disease, then a full axillary lymph node dissection is required. I have told the patient that adjuvant chemotherapy will be required should the lymph nodes reveal metastatic disease. Also, a full lymph node dissection will increase the risk for lymphedema, especially if there are 4 or more lymph nodes positive for metastatic disease and radiation to the axilla is also required. I have told the patient the risks of surgery, including but not limited to: infection, bleeding, scar tissue, seroma and persistent seroma, lymph leak, injury to any blood vessels, injury to any nerves (particularly the long thoracic, the thoracodorsal, and the second intercostal brachial and the resultant sequelae), lymphedema, cosmetic deformity, dysesthesias, wound infections, further surgery (especially if margins are not clear), complicationsof anesthesia, etc. the patient understands. Patient is planning for likely mastectomy with reconstruction. Will refer patient to Dr. Pantoja. Tamiko Figueroa M.D. Pager: [phone] [facility] [address] [place] [address], [address] [place] [address] Office: 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 Aden Winslow MD; Dr. Ara Franklin MD; Dr. Michael Pantoja MD; YENNI Paige ~ [facility] Work Phone: 1(732) 157-639206-06-2025 Nurse Note* Vik Petersen RN - 01/12/2025 11:35 AM EDT Dc instructions provided and reviewed without questions. Patient dc'd home with mother. Patient ambulates to lobby with slow and steady gait. [facility] Work Phone: 1(806) 886-906606-06-2025 Nurse Note* Vik Petersen RN - 01/12/2025 11:35 AM EDT Dc instructions provided and reviewed without questions. Patient dc'd home with mother. Patient ambulates to lobby with slow and steady gait. documented in [facility] Work Phone: 1(695) 200-672605-29-2025 History of Present illness Narrative* YENNI Walker-Gurdeep - 01/04/2025 9:40 AM EDT Subjective Patient ID: Shauna Rainey is a 29 y.o. female who presents for Follow-up (C/O INDENT IN LT BREAST) HPI Breast concerns L breast indent x 1 year and thinks it is getting worse She aranza hx of mammo Last visit with EQUIPMENT OPERATOR/LABORER was within 6 mo - she didn't mention it then but states she did have the spot but the EQUIPMENT OPERATOR/LABORER did not note concern during her PE Pt youngest was born in 2020 and breast fed sometime into 2022 Pt denies unexplainable wt loss, fever, nipple discharge or fam hx of breast cancer Med check - currently not taking meds and denies changes in meds in the past year prior to this Preventative testing PAP - [facility] Mammo DEXA Colon Fall NEG November 2024 PHQ2 - NEG November 2024 Problem List[1] Review of Systems Constitutional: Negative for chills, fatigue and fever. HENT: Negative for congestion, rhinorrhea, sinus pain, sore throat and tinnitus. Eyes: Negative for discharge, redness and visual disturbance. Respiratory: Negative for cough, chest tightness, shortness of breath and wheezing. Cardiovascular: Negative for chest pain, palpitations and leg swelling. Gastrointestinal: Negative for abdominal pain, constipation, diarrhea, nausea and vomiting. Endocrine: Negative for cold intolerance and heat intolerance. Genitourinary: Negative for flank pain, frequency and urgency. Musculoskeletal: Negative for back pain, gait problem and neck pain. Skin: Negative for rash and wound. L breast Neurological: Negative for dizziness, tremors, syncope, numbness and headaches. Hematological: Does not bruise/bleed easily. Psychiatric/Behavioral: Negative for confusion, sleep disturbance and suicidal ideas. Medical History[2] Surgical History[3] Family History[4] Social History[5] Allergies[6] Current Medications[7] Objective BP 111/72 Pulse 79 Ht 1.524 m (5') Wt 70.8 kg (156 lb) BMI 30.47 kg/m Physical Exam Vitals reviewed. Constitutional: Appearance: Normal appearance. She is obese. HENT: Head: Normocephalic. Right Ear: External ear normal. Left Ear: External ear normal. Nose: Nose normal. No congestion or rhinorrhea. Mouth/Throat: Mouth: Mucous membranes are moist. Eyes: Extraocular Movements: Extraocular movements intact. Conjunctiva/sclera: Conjunctivae normal. Pupils: Pupils are equal, round, and reactive to light. Cardiovascular: Rate and Rhythm: Normal rate and regular rhythm. Pulses: Normal pulses. Pulmonary: Effort: Pulmonary effort is normal. Breath sounds: Normal breath sounds. Abdominal: General: Bowel sounds are normal. Palpations: Abdomen is soft. Tenderness: There is no abdominal tenderness. There is no right CVA tenderness or left CVA tenderness. Musculoskeletal: General: No tenderness. Normal range of motion. Cervical back: Normal range of motion and neck supple. No tenderness. Skin: General: Skin is warm and dry. Comments: L breast concerns Fullness noted in the entire region of the L breast upper outer quad Nipple indent noted while sitting but also when laying down I am hopefully this is just from the hormonal changes and scarring of breast feeding but suggest additional imaging to make sure Neurological: General: No focal deficit present. Mental Status: She is alert and oriented to person, place, and time. Psychiatric: Mood and Affect: Mood normal. Behavior: Behavior normal. Testing Reviewed old labs on file Reviewed labs set to be done when convenient Impression MDM 1) COMPLEXITY: 1 UNDIAGNOSED NEW PROBLEM WITH UNCERTAIN PROGNOSIS 2)DATA: TESTS INTERPRETED AND OR ORDERED, TOOK INDEPENDENT HISTORY OR RECORDS REVIEWED 3)RISK: MODERATE RISK DUE TO NATURE OF MEDICAL CONDITIONS/COMORBIDITY OR MEDICATIONS ORDERED OR SURGICAL OR PROCEDURE REFERRAL, . Reviewed labs and Testing on file Patient to follow diet low in cholesterol, fat, and sodium. Patient is advised to increase Exercise. Patient is recommended to lose weight. Reviewed Meds and discussed common side effects Continue as directed Patient is strongly advised to be compliant with recommendations. Return to Clinic sooner if needed. Patient denies further questions/concerns at this time Assessment/Plan Problem List Items Addressed This Visit ICD-10-CM Class 1 obesity due to excess calories without serious comorbidity with body mass index (BMI) of 30.0 to 30.9 in adult E66.811, E66.09, Z68.30 Other Visit Diagnoses Codes Mass of upper outer quadrant of left breast - Primary N63.21 Relevant Orders BI mammo left diagnostic tomosynthesis BI US breast limited left Fibrocystic change of breast, left N60.12 FU in 2-6 weeks with breast testing and labs [1] Patient Active Problem List Diagnosis Glucose intolerance (impaired glucose tolerance) Class 1 obesity due to excess calories without serious comorbidity with body mass index (BMI) of 30.0 to 30.9 in adult Dietary counseling and surveillance Intractable menstrual migraine with status migrainosus [2] Past Medical History: Diagnosis Date Encounter for gynecological examination (general) (routine) without abnormal findings Pap test, as part of routine gynecological examination Other conditions influencing health status Menstruation [3] Past Surgical History: Procedure Laterality Date OTHER SURGICAL HISTORY 06/09/2019 section [4] Family History Problem Relation Name Age of Onset Diverticulitis Mother Colon cancer Father's Brother Lung cancer Paternal Grandfather [5] Social History Tobacco Use Smoking status: Never Passive exposure: Never Smokeless tobacco: Never Vaping Use Vaping status: Never Used Substance Use Topics Alcohol use: Yes Comment: rare Drug use: Never [6] No Known Allergies [7] No current outpatient medications on file. No current facility-administered medications for this visit. documented in [facility] encounterSum[facility] Work Phone: 1(609) 537-985004-09-2025 History of Present illness Narrative* Ryan Cochran PA-C - 11/15/2024 12:40 PM EDT Subjective Patient ID: Shauna Rainey is a 28 y.o. female who presents for New Patient Visit HPI Est as new patient Labs Med check Hormonal migraines - well controlled IBS???- denies diagnosis but questions with some symptoms this or food intolerance - diarrhea more than constipation /bloating at times. Denies pain so less likely gallbladder etiology. Discussed food elimination. Treating naturally and working on stress management - consider additional testing - pt to call if she wants to pursue Off episodes in the past She does have hx of ZHANG/migraines since she was young but typically have been well managed and only notes more menstrual migraines at this time 2 episodes maybe in the last 5 years where she would trouble focusing- reading a word or comprehending something and this would last maybe 30 min but then full resolution. She denies any known cardioor neuro fam hx . We discussed work up for echo vs was this more of a hemiplegic migraine with her history. She denies any episode in over a year - I have strongly encouraged her to reach out when she has an episode and come here or go to the ER for more timely to work up to determine etiology of the spell Obesity - pt would like to lose weight and is eating well but states cannot seem to lose and questions if this is contributing to other symptoms We discussed diet and ex, dressing room attendant, labs, injectables, adipex. Pt to check with insurance and get her labs done and if approp can call to start wegovy type med if she wishes but is aware she would need to be seen monthly for wt checks in the beginning Preventative testing PAP - [facility] Mammo DEXA Colon Fall NEG November 2024 PHQ2 - NEG November 2024 There is no problem list on file for this patient. Review of Systems Constitutional: Positive for fatigue. Negative for chills and fever. HENT: Negative for congestion, rhinorrhea, sinus pain, sore throat and tinnitus. Eyes: Negative for discharge, redness and visual disturbance. Respiratory: Negative for cough, chest tightness, shortness of breath and wheezing. Cardiovascular: Negative for chest pain, palpitations and leg swelling. Gastrointestinal: Positive for abdominal distention and diarrhea. Negative for abdominal pain, constipation, nausea and vomiting. Endocrine: Negative for cold intolerance and heat intolerance. Genitourinary: Negative for flank pain, frequency and urgency. Musculoskeletal: Negative for back pain, gait problem and neck pain. Skin: Negative for rash and wound. Neurological: Positive for headaches. Negative for dizziness, tremors, syncope and numbness. Hematological: Does not bruise/bleed easily. Psychiatric/Behavioral: Negative for confusion, sleep disturbance and suicidal ideas. Past Medical History: Diagnosis Date Encounter for gynecological examination (general) (routine) without abnormal findings Pap test, as part of routine gynecological examination Other conditions influencing health status Menstruation Past Surgical History: Procedure Laterality Date OTHER SURGICAL HISTORY 06/09/2019 section No family history on file. Social History Tobacco Use Smoking status: Never Passive exposure: Never Smokeless tobacco: Never Substance Use Topics Alcohol use: Yes Comment: rare Drug use: Never No Known Allergies Current Outpatient Medications Medication Sig Dispense Refill albuterol 90 mcg/actuation aerosol powdr breath activated inhaler Inhale 2 puffs every 4 hours if needed for wheezing. celecoxib (CeleBREX) 200 mg capsule Take by mouth. (Patient not taking: Reported on 11/15/2024) doxycycline (Vibra-Tabs) 100 mg tablet Take 1 tablet (100 mg) by mouth every 12 hours. (Patient nottaking: Reported on 11/15/2024) ibuprofen 200 mg tablet Take 2 tablets (400 mg) by mouth every 6 hours. norethindrone (Micronor) 0.35 mg tablet Take 1 tablet (0.35 mg) by mouth once daily. (Patient not taking: Reported on 11/15/2024) oxymetazoline 0.05 % nasal spray Administer into affected nostril(s) twice a day. (Patient not taking: Reported on 11/15/2024) No current facility-administered medications for this visit. Objective BP 117/82 Pulse 90 Ht 1.524 m (5') Wt 70.1 kg (154 lb 9.6 oz) SpO2 98% BMI 30.19 kg/m Physical Exam Vitals reviewed. Constitutional: Appearance: Normal appearance. She is obese. HENT: Head: Normocephalic. Right Ear: External ear normal. Left Ear: External ear normal. Nose: Nose normal. No congestion or rhinorrhea. Mouth/Throat: Mouth: Mucous membranes are moist. Eyes: Extraocular Movements: Extraocular movements intact. Conjunctiva/sclera: Conjunctivae normal. Pupils: Pupils are equal, round, and reactive to light. Cardiovascular: Rate and Rhythm: Normal rate and regular rhythm. Pulses: Normal pulses. Pulmonary: Effort: Pulmonary effort is normal. Breath sounds: Normal breath sounds. Abdominal: General: Bowel sounds are normal. Palpations: Abdomen is soft. Tenderness: There is no abdominal tenderness. There is no right CVA tenderness or left CVA tenderness. Musculoskeletal: General: No tenderness. Normal range of motion. Cervical back: Normal range of motion and neck supple. No tenderness. Skin: General: Skin is warm and dry. Neurological: General: No focal deficit present. Mental Status: She is alert and oriented to person, place, and time. Psychiatric: Mood and Affect: Mood normal. Behavior: Behavior normal. Testing Reviewed old labs on file Impression MDM 1) COMPLEXITY: 1 UNDIAGNOSED NEW PROBLEM WITH UNCERTAIN PROGNOSIS 2)DATA: TESTS INTERPRETED AND OR ORDERED, TOOK INDEPENDENT HISTORY OR RECORDS REVIEWED 3)RISK: MODERATE RISK DUE TO NATURE OF MEDICAL CONDITIONS/COMORBIDITY OR MEDICATIONS ORDERED OR SURGICAL OR PROCEDURE REFERRAL, . Reviewed labs and Testing on file Patient to follow diet low in cholesterol, fat, and sodium. Patient is advised to increase Exercise. Patient is recommended to lose weight. Reviewed Meds and discussed common side effects Continue as directed Patient is strongly advised to be compliant with recommendations. Return to Clinic sooner if needed. Patient denies further questions/concerns at this time Assessment/Plan Problem List Items Addressed This Visit ICD-10-CM Glucose intolerance (impaired glucose tolerance) R73.02 Relevant Orders CBC and Auto Differential Comprehensive Metabolic Panel Hemoglobin A1C Lipid Panel Thyroid Stimulating Hormone Thyroxine, Free Magnesium Class 1 obesity due to excess calories without serious comorbidity with body mass index (BMI) of 30.0 to 30.9 in adult E66.811, E66.09, Z68.30 Relevant Orders CBC and Auto Differential Comprehensive Metabolic Panel Hemoglobin A1C Lipid Panel Thyroid Stimulating Hormone Thyroxine, Free Magnesium Dietary counseling and surveillance Z71.3 Intractable menstrual migraine with status migrainosus G43.831 Other Visit Diagnoses Codes Encounter to establish care with new provider - Primary Z76.89 Encounter for wellness examination in adult Z00.00 Relevant Orders CBC and Auto Differential Comprehensive Metabolic Panel Hemoglobin A1C Lipid Panel Thyroid Stimulating Hormone Thyroxine, Free Magnesium FU 3-12 mo with wellness / LABS at [facility] -= pt to call documented in [facility] Work Phone: 1(258) 983-262610-17-2024 NoteHMS DISCHARGE SUMMARY -- [facility] Shauna Rainey Admitted: 05/23/2024 Discharge Date: 05/25/24 PCP Handoff Recommended Outpatient Testing None Results Pending At Discharge None Clinical Summary Shauna Rainey is a 28 y.o. female patient of Kinjal Cleveland MD with history of depression presented to [facility] on 05/23/2024 with shortness of breath, hypoxia and tachycardia. Patient transferred from [facility] ER. Acute hypoxic respiratory failure, resolved Community-acquired pneumonia, Rt basilar lobe Failed outpatient treatment CXR reviewed showed perihilar opacities considering superimposed infection. CT PE was negative for PE, showed patchy right basilar airspace opacity Patient was hypoxic when she presented to the [place] ER S/p 7-day of doxycycline as an outpatient Elevated D-dimer 9 days ago Respiratory panel, urine antigen, and procalcitonin are all negative Blood culture:NGTD DuoNeb as needed Replete electrolyte as needed keep k>4, Phos > 3, Mag >2 Continue respiratory monitoring, keep SpO2 above 92% s/p Rocephin and azithromycin, discharge on Augmentin for 7 more days Patient will follow-up with her PCP after discharge. depression Continue escitalopram Discharge Medications Discharge Medications New Medications Details amoxicillin-clavulanate 875-125 mg per tablet Commonly known as: AUGMENTIN Take 1 (one) tablet by mouth 2 (two) times a day for 7 days . Quantity: 14 tablet Medications To Continue Details albuterol 90 mcg/actuation inhaler Inhale 2 (two) puffs every 4 (four) hours as needed . Quantity: 6.7 g escitalopram oxalate 20 MG tablet Commonly known as: LEXAPRO Take 1 (one) tablet (20 mg total) by mouth daily . Quantity: 30 tablet Physician(s) Follow Up: Kinjal Cleveland MD [address] [id number] Schedule an appointment as soon as possible for a visit Condition at Discharge: Stable Disposition: Home I reviewed discharge recommendations with the patient in person. Patient instructions, including activity, were given to the patient/family at discharge. On day of discharge I saw Shauna Rainey and spent: > 30 minutes on discharge. Completed by: Cassandra David MD on 05/25/24, 12:56 PM AUTHENTICATED BY CASSANDRA DAVID, ON 05/25/2024 12:58:36[facility] 05-24-2024 NoteHMS PROGRESS NOTE Assessment and Plan Shauna Rainey is a 28 y.o. female patient of Kinjal Cleveland MD with history of depression presented to [facility] on 05/23/2024 with shortness of breath, hypoxia and tachycardia. Patient transferred from [facility] ER. Acute hypoxic respiratory failure, resolved Community-acquired pneumonia, Rt basilar lobe Failed outpatient treatment CXR reviewed showed perihilar opacities considering superimposed infection. CT PE was negative for PE, showed patchy right basilar airspace opacity Patient was hypoxic when she presented to the [place] ER S/p 7-day of doxycycline as an outpatient Elevated D-dimer 9 days ago Respiratory panel, urine antigen, and procalcitonin are all negative Blood culture:NGTD DuoNeb as needed Replete electrolyte as needed keep k>4, Phos > 3, Mag >2 Continue respiratory monitoring, keep SpO2 above 92% Start the patient on Rocephin and azithromycin depression Continue escitalopram Resolved acute medical issues Discharge Planning Medically Stable for Discharge Date: 05/25 Patient requires continued hospitalization due to: IV antibiotics Discharge Location: Home Quality Measures DVT Prophylaxis: lovenox Monroy Catheter: absent Code Status full Primary Contact Information Subjective Patient feels slightly better but still congested Objective BP 96/64 Pulse 91 Temp 97.8 degrees F (36.6 degrees C) (Oral) Resp 16 Ht 5' Wt 60 kg (132 lb 3.2 oz) LMP 05/07/2024 (Exact Date) SpO2 93% BMI 25.82 kg/m Physical Examination General Appearance: alert; well appearing; in no acute distress HEENT: Head- normocephalic; Eyes- EOMI, sclera anicteric; Throat- mucous membranes moist Cardiovascular: regular rate and rhythm; normal S1, S2; no murmurs, rubs, clicks or gallops; peripheral edema absent Respiratory: ; lower lobe crackles, without wheezes, rales or rhonchi; on room air Abdomen: soft, non-tender, non-distended Neurological: oriented x 3; normal speech; no focal findings or movement disorder noted Musculoskeletal: no significant deformity or tenderness to palpation Skin: normal coloration Psych: normal mood and affect AUTHENTICATED BY CASSANDRA DAVID, ON 05/24/2024 09:56:40[facility] 05-23-2024 NoteHMS HISTORY AND PHYSICAL -- [facility] Patient Name: Shauna Rainey : 1995 MR #: [id number] Admit Date: 05/23/2024 Physicians: Kinjal Cleveland MD (Family); Mariela Schulz DO (Referring) Shauna Rainey is a 28 y.o. female patient of Kinjal Cleveland MD with history of depression presented to [facility] on 05/23/2024 with shortness of breath, hypoxia and tachycardia. Patient transferred from [facility] ER. Acute hypoxic respiratory failure, resolved Community-acquired pneumonia Failed outpatient treatment CXR reviewed showed perihilar opacities considering superimposed infection. CT PE was negative for PE, showed patchy right basilar airspace opacity Patient was hypoxic when she presented to the [place] ER S/p 7-day of doxycycline as an outpatient Elevated D-dimer 9 days ago Admit to [facility] with telemetry Continue respiratory monitoring, keep SpO2 above 92% Start the patient on Rocephin and azithromycin follow-up respiratory panel, urine antigen, sputum culture, procalcitonin Follow-up septic workup, blood culture DuoNeb as needed Replete electrolyte as needed keep k>4, Phos > 3, Mag >2 Follow-up test Mild leukocytosis Lactic acidosis WBC on admission 10.4, with 80% neutrophils Antibiotic as above Repeat CBC in the morning Hypokalemia Replete as needed depression Continue escitalopram Residence prior to admission: house or apartment Was patient transferred from outlying hospital or ED yes -- care site [facility] Quality Measures DVT Prophylaxis: lovenox Monryo Catheter: absent Medication Reconciliation: Verified Admitted with these risk variables:Acute Respiratory Failure. Please see assessment and plan for further details. Estimated Date of Discharge less than 2 midnights Code Status Full Code; code status verified on 05/23/2024 with patient (capacity intact) Chief Complaint SOB, hypoxia, tachycardia History of Present Illness Shauna Rainey is a 28 y.o. female patient of Kinjal Cleveland MD with history of depression presented to [facility] on 05/23/2024 with shortness of breath, hypoxia and tachycardia. Patient transferred from [facility] ER. Patient just finished 7-day course of doxycycline for pneumonia. She states that she has still productive cough with clear sputum. WBC 10.4, LA 2.3, potassium was 3.0. Failed outpatient medical treatment for pneumonia. Patient states that she had multiple times fever at night of 101, did not remember one of the last 1. She has clear sputum. LMP was end of April, currently on no contraceptive. She stated that she had some blood in her urine recently. Patient has section in 2016, 2018 and 2020. Currently she denied any chest pain palpitation dizziness, abdominal pain diarrhea or constipation, recent travel or sick people at home. Past Medical History Past Medical History: Diagnosis Date Mononucleosis 12/13/2014 Past Surgical History Past Surgical History: Procedure Laterality Date SECTION, CLASSIC 12/01/2016, 05/11/2019, 01/17/2021 Family History Family History Problem Relation Age of Onset Diverticulitis Mother Chronic bronchitis Father BAYLEE disease Father No Known Problems Maternal Grandmother No Known Problems Maternal Grandfather No Known Problems Paternal Grandmother No Known Problems Paternal Grandfather Social History Social History Tobacco Use Smoking Status Never Smokeless Tobacco Never Social History Substance and Sexual Activity Alcohol Use No Social History Substance and Sexual Activity Drug Use No Allergy Information I have reviewed the patient's allergies. Patient has no known allergies. Home Medications Home medications were reviewed. Review Of Systems All relevant systems have been reviewed and are negative except as noted in HPI or below Physical Examination BP 108/73 Pulse 85 Temp 97.6 degrees F (36.4 degrees C) (Oral) Resp 16 Ht 5' Wt 60 kg (132 lb 3.2 oz) LMP 05/07/2024 (Exact Date) SpO2 92% BMI 25.82 kg/m General Appearance: alert; well appearing; in no acute distress HEENT: Head- normocephalic; Eyes- EOMI, sclera anicteric; Throat- mucous membranes moist Cardiovascular: regular rate and rhythm; normal S1, S2; no murmurs, rubs, clicks or gallops; peripheral edema absent Respiratory: lungs clear to auscultation; without wheezes, rales or rhonchi; on room air Abdomen: soft, non-tender, non-distended Neurological: oriented x 3; normal speech; no focal findings or movement disorder noted Musculoskeletal: no significant deformity or tenderness to palpation Skin: normal coloration Psych: normal mood and affect AUTHENTICATED BY NATALYA SOSA, ON 05/23/2024 15:10:25[facility]10-14-2024 Emergency department Note* Mariela Schulz, DO - 05/22/2024 9:40 PM EDT HPI Chief Complaint Patient presents with Shortness of Breath Pt states she just finished atbx for a pneumonia diagnosis, was having increasing shortness of breath today. 28-year-old female presents with cough and dyspnea. Patient was diagnosed with pneumonia approximately 7 days ago and just finished a course of antibiotics. Patient states she has not really improvedthat much. When I examined her she is not dyspneic but she is tachycardic. Denies any nausea or vomiting with symptoms. The patient just finished doxycycline. Patient states she had some transient improvement which only lasted several days. Patient was given 1 g of Rocephin and 500 mg of IV Zithromax. She also received a liter of fluid. Patient still had periods of hypoxia with pO2 levels in the low 90s. She did remain tachycardic even after fluid hydration. Patient will require admission and be transferred to [place]. History provided by: Patient Patient History Past Medical History: Diagnosis Date Encounter for gynecological examination (general) (routine) without abnormal findings Pap test, as part of routine gynecological examination Other conditions influencing health status Menstruation Past Surgical History: Procedure Laterality Date OTHER SURGICAL HISTORY 06/09/2019 section No family history on file. Social History Tobacco Use Smoking status: Not on file Smokeless tobacco: Not on file Substance Use Topics Alcohol use: Not on file Drug use: Not on file Physical Exam ED Triage Vitals [05/22/24 2150] Temperature Heart Rate Respirations BP 36.6 C (97.9 F) (!) 130 (!) 22 112/59 Pulse Ox Temp src Heart Rate Source Patient Position 94 % -- -- -- BP Location FiO2 (%) -- -- Physical Exam Vitals and nursing note reviewed. Constitutional: General: She is not in acute distress. Appearance: She is well-developed. HENT: Head: Normocephalic and atraumatic. Eyes: Conjunctiva/sclera: Conjunctivae normal. Cardiovascular: Rate and Rhythm: Regular rhythm. Tachycardia present. Heart sounds: No murmur heard. Pulmonary: Effort: Pulmonary effort is normal. No respiratory distress. Breath sounds: Examination of the right-lower field reveals decreased breath sounds and rhonchi. Examination of the left-lower field reveals decreased breath sounds and rhonchi. Decreased breath sounds and rhonchi present. Abdominal: Palpations: Abdomen is soft. Tenderness: There is no abdominal tenderness. Musculoskeletal: General: No swelling. Cervical back: Neck supple. Skin: General: Skin is warm and dry. Capillary Refill: Capillary refill takes less than 2 seconds. Neurological: Mental Status: She is alert. Psychiatric: Mood and Affect: Mood normal. CT angio chest for pulmonary embolism Final Result No acute pulmonary embolus to the segmental level. Patchy right basilar airspace opacity most compatible with pneumonia. MACRO: None. Signed by: Roberto Ortiz 05/23/2024 1:56 AM Dictation workstation: [id number] XR chest 2 views Final Result Mild increased perihilar opacities suggestive of developing interstitial edema. Superimposed infection not excluded. Clinical correlation and continued short-term follow-up is advised. MACRO: None Signed by: Neva Perdomo 05/22/2024 10:31 PM Dictation workstation: [id number] Labs Reviewed CBC WITH AUTO DIFFERENTIAL - Abnormal Result Value WBC 10.4 nRBC 0.0 RBC 4.55 Hemoglobin 13.3 Hematocrit 40.4 MCV 89 MCH 29.2 MCHC 32.9 RDW 14.3 Platelets 362 Neutrophils % 80.4 Immature Granulocytes %, Automated 0.5 Lymphocytes % 14.0 Monocytes % 3.6 Eosinophils % 1.0 Basophils % 0.5 Neutrophils Absolute 8.39 (*) Immature Granulocytes Absolute, Automated 0.05 Lymphocytes Absolute 1.46 Monocytes Absolute 0.37 Eosinophils Absolute 0.10 Basophils Absolute 0.05 COMPREHENSIVE METABOLIC PANEL - Abnormal Glucose 106 (*) Sodium 139 Potassium 3.0 (*) Chloride 104 Bicarbonate 25 Anion Gap 13 Urea Nitrogen 10 Creatinine 0.56 eGFR >90 Calcium 8.7 Albumin 3.8 Alkaline Phosphatase 61 Total Protein 7.0 AST 15 Bilirubin, Total 0.4 ALT 26 LACTATE - Abnormal Lactate 2.3 (*) Narrative: Venipuncture immediately after or during the administration of Metamizole may lead to falsely low results. Testing should be performed immediately prior to Metamizole dosing. LACTATE - Abnormal Lactate 2.1 (*) Narrative: Venipuncture immediately after or during the administration of Metamizole may lead to falsely low results. Testing should be performed immediately prior to Metamizole dosing. BLOOD CULTURE BLOOD CULTURE ED Course & MDM ED Course as of 05/23/24225May 22, 20242223 Twelve-lead EKG interpreted by myself at 2150 1 sinus tachycardia at 120 2 normal axis 3 rightatrial enlargement [MS] ED Course User Index [MS] Mariela Schulz DO Diagnoses as of 05/23/24225 Pneumonia due to infectious organism, unspecified laterality, unspecified part of lung No data recorded Lizbeth Coma Scale Score: 15 (05/22/24 2151 : Lana Tamayo RN) Medical Decision Making Transfer to [facility] Procedure Procedures Mariela Schulz DO 05/23/24225 documented in this [facility] Work Phone: 1(872) 708-664810-14-2024 Physician Emergency department Note* Mariela Schulz DO - 05/22/2024 9:40 PM EDT HPI Chief Complaint Patient presents with Shortness of Breath Pt states she just finished atbx for a pneumonia diagnosis, was having increasing shortness of breath today. 28-year-old female presents with cough and dyspnea. Patient was diagnosed with pneumonia approximately 7 days ago and just finished a course of antibiotics. Patient states she has not really improvedthat much. When I examined her she is not dyspneic but she is tachycardic. Denies any nausea or vomiting with symptoms. The patient just finished doxycycline. Patient states she had some transient improvement which only lasted several days. Patient was given 1 g of Rocephin and 500 mg of IV Zithromax. She also received a liter of fluid. Patient still had periods of hypoxia with pO2 levels in the low 90s. She did remain tachycardic even after fluid hydration. Patient will require admission and be transferred to [place]. History provided by: Patient Patient History Past Medical History: Diagnosis Date Encounter for gynecological examination (general) (routine) without abnormal findings Pap test, as part of routine gynecological examination Other conditions influencing health status Menstruation Past Surgical History: Procedure Laterality Date OTHER SURGICAL HISTORY 06/09/2019 section No family history on file. Social History Tobacco Use Smoking status: Not on file Smokeless tobacco: Not on file Substance Use Topics Alcohol use: Not on file Drug use: Not on file Physical Exam ED Triage Vitals [05/22/24 2150] Temperature Heart Rate Respirations BP 36.6 C (97.9 F) (!) 130 (!) 22 112/59 Pulse Ox Temp src Heart Rate Source Patient Position 94 % -- -- -- BP Location FiO2 (%) -- -- Physical Exam Vitals and nursing note reviewed. Constitutional: General: She is not in acute distress. Appearance: She is well-developed. HENT: Head: Normocephalic and atraumatic. Eyes: Conjunctiva/sclera: Conjunctivae normal. Cardiovascular: Rate and Rhythm: Regular rhythm. Tachycardia present. Heart sounds: No murmur heard. Pulmonary: Effort: Pulmonary effort is normal. No respiratory distress. Breath sounds: Examination of the right-lower field reveals decreased breath sounds and rhonchi. Examination of the left-lower field reveals decreased breath sounds and rhonchi. Decreased breath sounds and rhonchi present. Abdominal: Palpations: Abdomen is soft. Tenderness: There is no abdominal tenderness. Musculoskeletal: General: No swelling. Cervical back: Neck supple. Skin: General: Skin is warm and dry. Capillary Refill: Capillary refill takes less than 2 seconds. Neurological: Mental Status: She is alert. Psychiatric: Mood and Affect: Mood normal. CT angio chest for pulmonary embolism Final Result No acute pulmonary embolus to the segmental level. Patchy right basilar airspace opacity most compatible with pneumonia. MACRO: None. Signed by: Roberto Ortiz 05/23/2024 1:56 AM Dictation workstation: [id number] XR chest 2 views Final Result Mild increased perihilar opacities suggestive of developing interstitial edema. Superimposed infection not excluded. Clinical correlation and continued short-term follow-up is advised. MACRO: None Signed by: Neva Perdomo 05/22/2024 10:31 PM Dictation workstation: [id number] Labs Reviewed CBC WITH AUTO DIFFERENTIAL - Abnormal Result Value WBC 10.4 nRBC 0.0 RBC 4.55 Hemoglobin 13.3 Hematocrit 40.4 MCV 89 MCH 29.2 MCHC 32.9 RDW 14.3 Platelets 362 Neutrophils % 80.4 Immature Granulocytes %, Automated 0.5 Lymphocytes % 14.0 Monocytes % 3.6 Eosinophils % 1.0 Basophils % 0.5 Neutrophils Absolute 8.39 (*) Immature Granulocytes Absolute, Automated 0.05 Lymphocytes Absolute 1.46 Monocytes Absolute 0.37 Eosinophils Absolute 0.10 Basophils Absolute 0.05 COMPREHENSIVE METABOLIC PANEL - Abnormal Glucose 106 (*) Sodium 139 Potassium 3.0 (*) Chloride 104 Bicarbonate 25 Anion Gap 13 Urea Nitrogen 10 Creatinine 0.56 eGFR >90 Calcium 8.7 Albumin 3.8 Alkaline Phosphatase 61 Total Protein 7.0 AST 15 Bilirubin, Total 0.4 ALT 26 LACTATE - Abnormal Lactate 2.3 (*) Narrative: Venipuncture immediately after or during the administration of Metamizole may lead to falsely low results. Testing should be performed immediately prior to Metamizole dosing. LACTATE - Abnormal Lactate 2.1 (*) Narrative: Venipuncture immediately after or during the administration of Metamizole may lead to falsely low results. Testing should be performed immediately prior to Metamizole dosing. BLOOD CULTURE BLOOD CULTURE ED Course & MDM ED Course as of 05/23/24225May 22, 20242223 Twelve-lead EKG interpreted by myself at 2150 1 sinus tachycardia at 120 2 normal axis 3 rightatrial enlargement [MS] ED Course User Index [MS] Mariela Schulz, Diagnoses as of 05/23/24225 Pneumonia due to infectious organism, unspecified laterality, unspecified part of lung No data recorded Lizbeth Coma Scale Score: 15 (05/22/24 215 : aLna Tamayo RN) Medical Decision Making Transfer to [facility] Procedure Procedures Mariela Schulz DO 05/23/24 0226 [facility] Work Phone: 1(351) 456-939312-13-2021 History of Present illness Narrative* Era Giordano CNP - 07/21/2021 2:05 PM EST Associated Order(s): LG Jt Injection/Arthrocentesis: L glenohumeral LG Jt Injection/Arthrocentesis: L glenohumeral Performed by: Era Giordano CNP Authorized by: Era Giordano CNP CPT 23612 - Large Joint Arthrocentesis: Consent given by: Patient Time out: Immediately prior to the procedure a time out was called Physician or proceduralist has discussed critical or nonroutine steps, procedure duration and anticipated blood loss: Yes Supporting Documentation: Indications: Pain and diagnostic evaluation Procedure Details: Location: Shoulder Site: L glenohumeral Prep: patient was prepped and draped in usual sterile fashion Needle size: 22 G Approach: Posterior Medications: 40 mg triamcinolone acetonide 40 mg/mL Anesthetic used: Lidocaine 1% Anesthetic amount (mL): 2 Patient tolerance: Patient tolerated the procedure well with no immediate complications * Era Giordano CNP - 07/21/2021 2:05 PM EST [facility] [address] [facility] [address] [facility] [id number] Chief Complaint Patient presents with Left Shoulder - Pain Neck - Pain Shauna Rainey returns to the office today for pain in the left shoulder. She was at the chiropractor last week and after adjustment she started having terrible pain along with decreased strength andrange of motion in the shoulder. She denies any specific injury and can't remember an exact moment at the chiropractor that the shoulder was injured. She is unable to lift the arm which is making it very difficult to take care of 2 young boys and an . She is right handed but relies on the left arm to carry the baby. She was able to rest the shoulder more this past weekend since her was able to help. She reports having kept the shoulder close to her, almost self immobilizing the jeni ulder because it just felt better. She is still nursing and is very careful as to what she takes orally. She did try and get a massage thinking it was a muscle spasm but that didn't seem to give her any relief. She also states that she will have periods during the night where she wakes up from sleep with numbness and tingling in the left hand and occasionally the right. She also states that the shoulder will feel worn out or heavy at times. The patient's past medical history, surgical history, social history, family history, medications and allergies were reviewed with the patient today and are available in the chart for further review. No Known Allergies Current Outpatient Medications: norethindrone (MICRONOR) 0.35 mg tablet, Take 1 tablet by mouth daily ., Disp: , Rfl: sertraline HCl (ZOLOFT ORAL), Take by mouth ., Disp: , Rfl: escitalopram oxalate (LEXAPRO) 10 MG tablet, Take 1 (one) tablet (10 mg total) by mouth daily . (Patient not taking: Reported on 07/21/2021 .), Disp: 30 tablet, Rfl: 11 Past Medical History: Diagnosis Date Mononucleosis 12/13/2014 Past Surgical History: Procedure Laterality Date SECTION, CLASSIC 12/01/2016, 05/11/2019, 01/17/2021 Social History Socioeconomic History Marital status: Occupational History Occupation: stay at home Tobacco Use Smoking status: Never Smoker Smokeless tobacco: Never Used Substance and Sexual Activity Alcohol use: No Drug use: No Sexual activity: Yes Partners: Male Social Determinants of Health Financial Resource Strain: Low Risk Difficulty of Paying Living Expenses: Not hard at all Food Insecurity: No Food Insecurity Worried About Running Out of Food in the Last Year: Never true Ran Out of Food in the Last Year: Never true Transportation Needs: No Transportation Needs Lack of Transportation (Medical): No Lack of Transportation (Non-Medical): No Social Connections: Unknown Frequency of Social Gatherings with Friends and Family: Twice a week ROS: Review of Systems Constitutional: Negative for activity change and fatigue. HENT: Negative for congestion, hearing loss and trouble swallowing. Eyes: Negative for visual disturbance. Respiratory: Negative for chest tightness and shortness of breath. Cardiovascular: Negative for chest pain and palpitations. Gastrointestinal: Negative for abdominal pain, diarrhea, nausea and vomiting. Endocrine: Negative for polydipsia, polyphagia and polyuria. Genitourinary: Negative for decreased urine volume, difficulty urinating and hematuria. Musculoskeletal: Positive for arthralgias. Negative for joint swelling and myalgias. Skin: Negative for color change, rash and wound. Allergic/Immunologic: Negative for immunocompromised state. Neurological: Positive for weakness. Negative for dizziness, light-headedness and numbness. Hematological: Does not bruise/bleed easily. Psychiatric/Behavioral: Negative for confusion and sleep disturbance. The patient is not nervous/anxious. PE: Physical Exam Constitutional: Appearance: She is well-developed and well-nourished. HENT: Head: Normocephalic. Eyes: Pupils: Pupils are equal, round, and reactive to light. Cardiovascular: Rate and Rhythm: Normal rate and regular rhythm. Pulmonary: Effort: Pulmonary effort is normal. Breath sounds: Normal breath sounds. Abdominal: General: Bowel sounds are normal. Palpations: Abdomen is soft. Musculoskeletal: General: Tenderness present. Left shoulder: Tenderness and bony tenderness present. Decreased range of motion. Decreased strength. Normal pulse. Cervical back: Normal range of motion and neck supple. Skin: General: Skin is warm and dry. Neurological: Mental Status: She is alert and oriented to person, place, and time. ORTHO: Left Shoulder Exam Tenderness The patient is experiencing tenderness in the biceps tendon, acromion and acromioclavicular joint. Range of Motion Active abduction: 100 External rotation: 70 Forward flexion: 110 Internal rotation 90 degrees: 80 Muscle Strength Abduction: 5/5 Internal rotation: 5/5 External rotation: 5/5 Supraspinatus: 4/5 Subscapularis: 5/5 Biceps: 4/5 Tests Cross arm: positive Impingement: negative Drop arm: positive Other Erythema: absent Scars: absent Sensation: normal Pulse: present Comments: +obriens +Full can +Speeds Imaging: L Shoulder: No acute fracture or dislocation. No osseous abnormality. Assessment/Plan: After examination and reviewing of the patient x-ray images we discussed treatmentoptions. I offered her an injection to the left shoulder which she gladly accepted. I did this without complications and she tolerated this well. If there is no improvement after 2 weeks, I will see her back in the office for follow up. She verbalizes understanding and is in agreement with the treatment plan. documented in this [id number] History of Present illness Narrative* Kinajl Cleveland MD - 07/04/2021 12:46 PM EST Images from the original note were not included. Subjective Patient ID: Shauna Rainey is a 25 y.o. female. New patient -seen here [place] [address] bauer - none since Recently delivered in January - started zoloft for post depression, increased to 100mg about 4 weeks after - and is helping Developed diarreha - constant - no particular food worse than othes, no real pain, maybe rare nausea no others with symptoms The following portions of the patient's history were reviewed and updated as appropriate: allergies, current medications, past family history, past medical history, past social history, past surgicalhistory and problem list. Review of Systems Constitutional: Negative for chills, diaphoresis and fever. HENT: Negative for congestion and sinus pain. Eyes: Negative for redness. Respiratory: Negative for cough, shortness of breath and wheezing. Cardiovascular: Negative for chest pain. Gastrointestinal: Positive for diarrhea and nausea. Negative for vomiting. Endocrine: Negative for polydipsia. Genitourinary: Negative for frequency and hematuria. Musculoskeletal: Negative for back pain. Neurological: Negative for weakness and headaches. Psychiatric/Behavioral: Negative for confusion. Objective Physical Exam Vitals reviewed. Constitutional: General: She is awake. Appearance: Normal appearance. She is well-developed. HENT: Head: Normocephalic and atraumatic. Nose: Nose normal. Eyes: General: Lids are normal. Extraocular Movements: Extraocular movements intact. Pupils: Pupils are equal, round, and reactive to light. Cardiovascular: Rate and Rhythm: Normal rate and regular rhythm. Heart sounds: S1 normal and S2 normal. No murmur heard. No friction rub. No gallop. Pulmonary: Effort: Pulmonary effort is normal. No tachypnea. Breath sounds: Normal breath sounds. No stridor or decreased air movement. No wheezing, rhonchi or rales. Abdominal: General: Bowel sounds are increased. There is no distension. Palpations: Abdomen is soft. There is no hepatomegaly or mass. Tenderness: There is no abdominal tenderness. Neurological: Mental Status: She is alert. Gait: Gait is intact. Psychiatric: Behavior: Behavior is cooperative. Assessment/Plan: Diagnoses and all orders for this visit: Timing of her symptoms seem to correlate with the increase of Zoloft 100 mg which does list 20% diarrhea as side effect discussed testing with patient versus trial on new medication at this point we are going to just change her medication she will monitor over the next 2 to 3 weeks and let me know how symptoms are doing if resolving but not completely gone we may need to change off of SSRI completely if not improving at all will get testing done Post depression - escitalopram oxalate (LEXAPRO) 10 MG tablet; Take 1 (one) tablet (10 mg total) by mouth daily . Functional diarrhea Kinjal Cleveland M.D. For any new medications prescribed today, patient was educated about indications for the medication, how to take the medication and potential side effects of the medications. 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 YES: This patient delivered between 12b6v-23g0w for the following acceptable indication(s) for delivery: (mariela all that apply) OBSTETRIC INDICATIONS: N/A: obstetric indications not applicable to this patient. See maternal and/or , INDICATIONS: abnormality of FHR complicating . Thrombosis of umbilical vein varix. MATERNAL INDICATIONS: N/A: maternal indications not applicable for this patient. See or obstetrical Surgical Operations & Procedures: Date of delivery: 01/17/2021 Delivery Type: without labor Anesthesia: Spinal anesthesia Laceration(s): none Delivery Complications: none EBL: 800 cc Pertinent Findings & Procedures: Information for the patient's : Vinicius More [[id number]] male Weight: 4 lb 9 oz (2.07 kg) Apgars: Information for the patient's : Vinicius More [[id number]] One Minute : 6 Five Minute : 8 Course: Uncomplicated yes : Male Blood Type/Rh: A POS Antibody Screen: Antibody Screen Date Value Ref Range Status 01/16/2021 NEG NA Final Rubella: No results found for: RUBELLAIGG Contraception: will discuss with her Beecher provider : yes VTE Prophylaxis: Not Indicated Meds: Shauna More Home Medication Instructions CHENTE:[id number] Printed on:01/19/21 1320 Medication Information acetaminophen (TYLENOL) 325 MG tablet Take 650 mg by mouth as needed for Pain calcium carbonate (TUMS) 500 MG chewable tablet Take 1 tablet by mouth as needed for Heartburn ferrous sulfate (IRON 325) 325 (65 Fe) MG tablet Take 1 tablet by mouth 2 times daily (with meals) ibuprofen (ADVIL;MOTRIN) 600 MG tablet Take 1 tablet by mouth every 8 hours as needed for Pain MV-Min-Fe Fum-FA-DHA ( 1 PO) Take by mouth Activity: Activity as tolerated Diet: Regular diet Follow up Care: Follow up appointment in 2 weeks with her Provider. Condition on discharge: Stable Discharge to: Home Discharge date: 01/19/2021 Discharge Dx: S/P CS for complicated umbilical vein varix Instructions to Patient:: Pelvic Rest (no intercourse, tampons, douching, etc) x 6 weeks Specific discharge instruction printed Umbilical abnormality [Q89.9] Patient Active Problem List Diagnosis ? Umbilical abnormality ? Status post emergency section Comments: Home care, Follow-up care and control were reviewed. Signs and symptoms of mastitis and Post Depression were reviewed. The patient is to notify her physician if any of these occur. Venita Castaneda MD on 01/19/2021 at 1:20 [facility]06-13-2021 Hospital Discharge instructions* Instructions* Venita Castaneda MD - 01/19/2021 Images from the original note were not included. After Your Delivery (the Period): Your Care Instructions Thank you for allowing us to care of you at [facility]. This time can be one of many emotional ups and downs and many changes in your life. In these first weeks try to take good care of yourself because you will likely feel very tired. It may take 4 to 6 weeks to feel like yourself again, and possibly longer if you had a . FOLLOW-UP: Your follow-up care is a manley part of your treatment and safety. Follow-up with your OB providerin 4weeks or as specified by your OB provider. If you had high blood pressure, visit your OB provider within 3-5 days after being home. Most women's blood pressure will return to pre- levels after delivery. However, some patients continueto have problems with their blood pressure, and some even get worse. Very high blood pressure can lead to seizures or stroke which can be life threatening. If ordered by your provider, take your blood pressure at home and call your OB provider if you have a high reading. Your OB provider can write you a prescription for a blood pressure monitor if you do not have one. Be sure to make and go to all appointments, and call your OB provider if you are having problems. It's also a good idea to know your test results and keep a list of the medicines you take. BLEEDING Vaginal bleeding will decrease in amount over the next few weeks. Bleeding may belt picker and then decrease again around 7-10 days . Use pads instead of tampons for the bloody flow that may last as long as 2 weeks. You will notice that as your activity increases, your flow may increase. Call your provider if you are saturating one maxi pad in an hour & passing large clots for 3 hours or more. ACTIVITY NO SEXUAL activity for 6 weeks or until advised by your OB provider; Nothing in vagina: intercourse, tampons, or douching. Begin to think about your reproductive life plan. Talk to your OB provider about if and when you would like another baby in the future. The recommendation for safe spacing is 18-24 months. Showering is okay; NO tub baths, swimming, or hot tubs. Gradually increase your activity. Resume exercise regimen only after advised by your )OB provider. Avoid lifting anything heavier than ten pounds or a gallon of milk for six weeks. Avoid driving 1 week for vaginal delivery and 2 weeks for section, or longer if you are onprescription pain medicine unless otherwise instructed by your OB provider . Rise slowly from a lying to sitting and then a standing position. Climb stairs carefully. You may feel tired or have a lack of energy. You may continue your vitamin to replenish nutrients post-delivery. Nap when whenever you can to catch up on sleep. EMOTIONS You may feel fernandez, sad, teary, & overwhelmed for the first 2 weeks ; however, feelings of depression may occur any time within the first year after delivery. Contact your OBprovider if you feel you may be showing signs of depression, or have thoughts of harmingyourself or or anyone.. WOUND CARE For Vaginal Delivery: Shower daily, and cleanse your perineum (bottom) with mild soap from front to back. Use the plasticsquirt bottle until bleeding stops each time you use the restroom instead of wiping with toilet paper. Ease soreness of hemorrhoids and the area between your vagina and rectum with ice compresses or witch patricia pads. If used, stitches will dissolve in 4-6 weeks on their own. You may use a sitz bath or soak in a clean tub with drain open and water running for comfort. Kegel exercises will help restore bladder control. To do these tighten your muscles as if you were stopping your urine flow. Hold for a few seconds and then relax. Do these throughout the day. For Section Delivery: Keep your incision clean and dry. If you had steri-strips you may remove these once they start falling off. If you have alhaji they need to be removed 3-10 daysafter delivery. If you have steri-strips, remove after 7 - 10 days. Do not wear clothing that irritates the incision line. If your incision is in a crease that is not dry, use a hair-dryer to dry the area 3 times a day. If you develop fever, shaking chills, redness, swelling, drainage or discharge from your wound, or if your wound looks like it is coming apart call your provider immediately. BREAST CARE If you develop a warm, red, tender area on your breast or develop a fever contact your OB provider.If your breasts become engorged ask your provider because treatment can vary according to your needs. DIET & CONSTIPATION Eat a well-balanced diet focusing on foods high in fiber and protein such as: whole grain cereals and breads, fruits and vegetables and legumes (eg, beans, lentils) Drink 8-10 glasses of fluids daily, especially water. Limit caffeine. To avoid constipation you may take a mild nyzv-sle-cbelhaz stool softener (such as colace) as recommended by your OB provider. SWELLING Try to keep your legs elevated when you are sitting or lying down. Stay hydrated and take walks. If you had high blood pressure, weigh yourself at the same time each day. Write down your weight and take the record to your OB provider appointment. MEDICATIONS Take all medications prescribed for you exactly as ordered. Don't take any drugs not prescribed to you or over the counter medicines unless recommended by yourprovider. Don't smoke. WHEN TO CALL THE OB PROVIDER Signs of infection, including fever and chills Increased bleeding: soaking more than one pad an hour or passing clots the size of an egg or larger. Wounds that become red, swollen or drain pus Vaginal discharge that smells foul New pain, swelling, or tenderness in your legs Pain that you can't control with the medications you've been given Pain, burning, urgency or frequency of urination, or persistent bleeding in the urine Cough, shortness of breath, or serious difficulty catching your breath Chest pain or pain in the upper right area of your belly Headache (very painful) or vision changes like blurry or double vision, seeing spots or 'auras' Swelling that is worse or weight gain of more than 3 pounds in 3 days Depression, suicidal thoughts, or feelings of harming someone else Breasts that are hot, red and accompanied by fever Any cracking or bleeding from the nipple or areola (the dark-colored area of the breast) You may have been given a magnet like this: If so, we encourage you to use it on your refrigerator as a reminder of when to call your OB provider. IIn case of an emergency, call 911 immediately. If you are Covid-19 positive or a Person Under Investigation (PUI) These could be signs that your COVID-19 symptoms are worsening and you may need emergency care: You are severely dizzy or lightheaded. You are confused or can't think clearly. Your face and lips have a blue color. You are unable to respond to others or are very hard to wake up. Prevention steps for People with confirmed or suspected COVID-19 (including persons under investigation) who do not need to be hospitalized and People with confirmed COVID-19 who were hospitalized and determined to be medically stable to go home Your healthcare provider and public health staff will evaluate whe ther you can be cared for at home. If it is determined that you do not need to be hospitalized and can be isolated at home, you willbe monitored by staff from your local or state health department. You should follow the prevention steps below until a healthcare provider or local or state health department says you can return to your normal activities. Stay home except to get medical care People who are mildly ill with COVID-19 are able to isolate at home during their illness. You should restrict activities outside your home, except for getting medical care. Do not go to work, school,or public areas. Avoid using public transportation, ride-sharing, or taxis. Separate yourself from other people and animals in your home People: As much as possible, you should stay in a specific room and away from other people in your home. Also, you should use a separate bathroom, if available. Animals: You should restrict contact with pets and other animals while you are sick with COVID-19, just like you would around other people. Although there have not been reports of pets or other animals becoming sick with COVID-19, it is still recommended that people sick with COVID-19 limit contactwith animals until more information is known about the virus. When possible, have another member ofyour household care for your animals while you are sick. If you are sick with COVID-19, avoid contact with your pet, including petting, snuggling, being kissed or licked, and sharing food. If you must care for your pet or be around animals while you are sick, wash your hands before and after you interact with pets and wear a facemask. Call ahead before visiting your provider If you have a medical appointment, call the healthcare provider and tell them that you have or may have COVID-19. This will help the healthcare provider's office take steps to keep other people from getting infected or exposed. Wear a facemask You should wear a facemask when you are around other people (e.g., sharing a room or vehicle) or pets and before you enter a healthcare provider's office. If you are not able to wear a facemask (for example, because it causes trouble breathing), then people who live with you should not stay in the same room with you, or they should wear a facemask if they enter your room. Cover your coughs and sneezes Cover your mouth and nose with a tissue when you cough or sneeze. Throw used tissues in a lined trash can. Immediately wash your hands with soap and water for at least 20 seconds or, if soap and water are not available, clean your hands with an alcohol-based hand net fisher that contains at least 60% alcohol. Clean your hands often Wash your hands often with soap and water for at least 20 seconds, especially after blowing your nose, coughing, or sneezing; going to the bathroom; and before eating or preparing food. If soap and water are not readily available, use an alcohol-based hand net fisher with at least 60% alcohol, covering all surfaces of your hands and rubbing them together until they feel dry. Soap and water are the best option if hands are visibly dirty. Avoid touching your eyes, nose, and mouth with unwashed hands. Avoid sharing personal household items You should not share dishes, drinking glasses, cups, eating utensils, towels, or bedding with otherpeople or pets in your home. After using these items, they should be washed thoroughly with soap and water. Clean all high-touch surfaces everyday High touch surfaces include counters, tabletops, doorknobs, bathroom fixtures, toilets, phones, keyboards, tablets, and bedside tables. Also, clean any surfaces that may have blood, stool, or body fluids on them. Use a household cleaning spray or wipe, according to the label instructions. Labels contain instructions for safe and effective use of the cleaning product including precautions you should take when applying the product, such as wearing gloves and making sure you have good ventilation during use of the product. Monitor your symptoms Seek prompt medical attention if your illness is worsening (e.g., difficulty breathing). Before seeking care, call your healthcare provider and tell them that you have, or are being evaluated for, COVID-19. Put on a facemask before you enter the facility. These steps will help the healthcare provider's office to keep other people in the office or waiting room from getting infected or exposed. Askyour healthcare provider to call the local or [facility] health department. Persons who are placed underactive monitoring or facilitated self- monitoring should follow instructions provided by their localhealth department or occupational health professionals, as appropriate. When working with your local health department check their available hours. If you have a medical emergency and need to call 911, notify the dispatch personnel that you have, or are being evaluated for COVID-19. If possible, put on a facemask before emergency medical services arrive. Discontinuing home isolation Patients with confirmed COVID-19 should remain under home isolation precautions until the risk of secondary transmission to others is thought to be low. The decision to discontinue home isolation precautions should be made on a mskc-nl-ubut basis, in consultation with healthcare providers and [facility] health departments. Information on COVID-19 for all patients Call your provider before your next appointment if you develop any of the following symptoms: fever, cough, fatigue, anorexia, shortness of breath, sputum production, and muscle pains. Headache, confusion, rhinorrhea, sore throat, hemoptysis, vomiting, and diarrhea have been reported but are less common. Some persons with COVID-19 have experienced gastrointestinal symptoms such as diarrhea and nausea prior to developing fever and lower respiratory tract signs and symptoms. Ways to [place] with Anxiety & Stress It is normal to feel anxious or worried about COVID-19. You might feel sad about canceling celebrations and staying away from family and friends. Keep in mind that most people do not get severely ill from COVID-19. It is important to have a planin case you get sick to prevent spreading the disease to others including an Advanced Care Plan (communicating and documenting your desired health care plan with family and healthcare team). You can take care of yourself by: ? Taking a break from watching the news ? Take deep breaths, stretch or meditate ? Getting exercise, eating healthy foods, and drinking plenty of water ? Finding activities you can enjoy inside your home ? Staying in touch with your family and friends. Tell your partner, family, and friends how you arefeeling. Advance Care Planning People with COVID-19 may have no symptoms, mild symptoms, such as fever, cough, and shortness of breath or they may have more severe illness, developing severe and fatal pneumonia. As a result, Advance Care Planning with attention to naming a health care decision maker (someone you trust to make healthcare decisions for you if you could not speak for yourself) and sharing other health care preferences is important BEFORE a possible health crisis. Please contact your Primary Care Provider to discuss Advance Care Planning. Learning About Coronavirus (COVID-19) Coronavirus (COVID-19): Overview What is coronavirus (COVID-19)? The coronavirus disease (COVID-19) is caused by a virus. It is an illness that was first found in [facility], in July 2019. It has since spread worldwide. The virus can cause fever, cough, and trouble breathing. In severe cases, it can cause pneumonia and make it hard to breathe without help. It can cause . Coronaviruses are a large group of viruses. They cause the common cold. They also cause more serious illnesses like [place] respiratory syndrome (MERS) and severe acute respiratory syndrome (SARS). COVID-19 is caused by a novel coronavirus. That means it's a new type that has not been seen in people before. This virus spreads ycwzyj-[id number]-[id number] through droplets from coughing and sneezing. It can also spreadwhen you are close to someone who is infected. It is always good practice to clean high touch surfaces frequently and avoid touching your mouth, nose and eyes until you have washed your hands if you touched these areas. What can you do to protect yourself from coronavirus (COVID-19)? The best way to protect yourself from getting sick is to: Wear a face mask. Avoid areas where there is an outbreak. Avoid contact with people who may be infected. Wash your hands often with soap or alcohol-based hand sanitizers. Avoid crowds and try to stay at least 6 feet away from other people. Wash your hands often, especially after you cough or sneeze. Use soap and water, and scrub for at least 20 seconds. If soap and water aren't available, use an alcohol-based hand net fisher. Call 911 anytime you think you may need emergency care. For example, call if: You have severe trouble breathing. (You can't talk at all.) You have constant chest pain or pressure. You are severely dizzy or lightheaded. You are confused or can't think clearly. Your face and lips have a blue color. You pass out (lose consciousness) or are very hard to wake up. Call your OB Provider now if you develop symptoms such as: Shortness of breath. Fever. Cough. If you need to get care, call ahead to the provider's office for instructions before you go. Make sure you wear a face mask, to prevent exposing other people to the virus. Where can you get the latest information? The following health organizations are tracking and studying this virus. Their websites contain themost up-to-date information. You'll also learn what to do if you think you may have been exposed tothe virus. U.[place]. Centers for Disease Control and Prevention (CDC): The CDC provides updated news about the disease and travel advice. The website also tells you how to prevent the spread of infection. www.cdc.gov World Health Organization (WHO): WHO offers information about the virus outbreaks. WHO also has travel advice. www.who.int Current as of: November 08, 2019 Content Version: 12.4 [employer]. Care instructions adapted under license by your healthcare professional. If you have questions about a medical condition or this instruction, always ask your healthcare professional. [employer] disclaims any warranty or liability for your use of this information. General Recommendations for Routine Cleaning and Disinfection of Households Community members can practice routine cleaning of frequently touched surfaces (for example: tables, doorknobs, light switches, handles, desks, toilets, faucets, sinks) with household shower doors and panels fabricator and EPA-registered disinfectants that are appropriate for the surface, following label instructions. Labels contain instructions for safe and effective use of the cleaning product including precautions you should take when applying the product, such as wearing gloves and making sure you have good ventilation during use of the product. These guidelines are focused on household settings and are meant for the general public. Cleaning refers to the removal of germs, dirt, and impurities from surfaces. Cleaning does not killgerms, but by removing them, it lowers their numbers and the risk of spreading infection. Disinfecting refers to using chemicals to kill germs on surfaces. This process does not necessarilyclean dirty surfaces or remove germs, but by killing germs on a surface after cleaning, it can further lower the risk of spreading infection. General Recommendations for Cleaning and Disinfection of Households with People Isolated in Home Care - Confirmed or suspected COVID 19 Household members should educate themselves about COVID-19 symptoms and preventing the spread of COVID-19 in homes. Clean and disinfect high-touch surfaces daily in household common areas (e.g. tables, hard-backed chairs, doorknobs, light switches, remotes, handles, desks, toilets, sinks) o In the bedroom/bathroom dedicated for an ill person: consider reducing cleaning frequency to as-needed (e.g., soiled items and surfaces) to avoid unnecessary contact with the ill person. - As much as possible, an ill person should stay in a specific room and away from other people in their home. - The caregiver can provide personal cleaning supplies for an ill person's room and bathroom, unless the room is occupied by child or another person for whom such supplies would not be appropriate. These supplies include tissues, paper towels, shower doors and panels fabricator and EPA-registered disinfectants (see list link at CDC website). - If a separate bathroom is not available, the bathroom should be cleaned and disinfected after each use by an ill person. If this is not possible, the caregiver should wait as long as practical after use by an ill person to clean and disinfect the high-touch surfaces. How to clean and disinfect: Hard Surfaces Wear disposable gloves when cleaning and disinfecting surfaces. Gloves should be discarded after each cleaning. If reusable gloves are used, those gloves should be dedicated for cleaning and disinfection of surfaces for COVID-19 and should not be used for other purposes. Consult the senior health consultant's instructions for cleaning and disinfection products used. Clean hands immediately after gloves are removed. If surfaces are dirty, they should be cleaned using a detergent or soap and water prior to disinfection. For disinfection, diluted household bleach solutions, alcohol solutions with at least 70% alcohol, and most common EPA-registered household disinfectants should be effective. o Diluted household bleach solutions can be used if appropriate for the surface. Follow senior health consultant's instructions for application and proper ventilation. Check to ensure the product is not past itsexpiration date. Never mix household bleach with ammonia or any other cleanser. Unexpired householdbleach will be effective against coronaviruses when properly diluted. - Prepare a bleach solution by mixing: - 5 tablespoons (1/3rd cup) bleach per gallon of water or - 4 teaspoons bleach per quart of water o Products with EPA-approved emerging viral pathogens claimspdf iconexternal icon are expected to be effective against COVID-19 based on data for harder to kill viruses. Follow the senior health consultant's instructions for all cleaning and disinfection products (e.g., concentration, application method and contact time, etc.). Soft (porous) surfaces such as carpeted floor, rugs, and drapes Remove visible contamination if present and clean with appropriate shower doors and panels fabricator indicated for use on these surfaces. After cleaning: Launder items as appropriate in accordance with the senior health consultant's instructions. If possible, launder items using the warmest appropriate water setting for the items and dry items completely, or Clothing, towels, linens and other items that go in the laundry Wear disposable gloves when handling dirty laundry from an ill person and then discard after each use. If using reusable gloves, those gloves should be dedicated for cleaning and disinfection of surfaces for COVID-19 and should not be used for other household purposes. Clean hands immediately aftergloves are removed. o If no gloves are used when handling dirty laundry, be sure to wash hands afterwards. o If possible, do not shake dirty laundry. This will minimize the possibility of dispersing virus through the air. o Launder items as appropriate in accordance with the senior health consultant's instructions. If possible, launder items using the warmest appropriate water setting for the items and dry items completely. Dirtylaundry from an ill person can be washed with other people's items. o Clean and disinfect clothes hampers according to guidance above for surfaces. If possible, consider placing a bag hanger that is either disposable (can be thrown away) or can be laundered. CDC has a list of EPA approved cleaning products on their website - https://www.cdc.gov/coronavirus/ 2019-ncov/community/home/cleaning-disinfection.html https://www.Medpricer.comeSellerPro/Rbitw-Rsttzuwaajh-Pluuaiiu-Products-List.pdf Grocery Stores with delivery and belt picker services: [facility]: Free belt picker at locations Delivery is $12.95 a month Website - [employer] [place]: Equipment Service Lead $2.95 (1st order is free) Delivery is $14.95 Website - [employer] [place]: senior manufacturing supervisor is free Delivery is $5.95 Website - [employer]aglee[employer]: senior manufacturing supervisor is $4.95 Delivery is $9.95 Website [employer]: senior manufacturing supervisor is $4.95 Delivery is $9.95 Website [employer]: Can be ordered for delivery and belt picker with [employer] Website - [employer]: Free deliver for first 3 orders of $35 or more Website aldiBasha Will deliver from [facility], [employer], [employer], and [employer]. Annual membership is $99 Monthly membership is $14 documented in this [facility] Work Phone: [phone]) 348-987206-13-2021 Hospital course Narrative* Venita Castaneda MD - 01/19/2021 1:20 PM EDT Images from the original note were not included. 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 YES: This patient delivered between [id number]-13j9u for the following acceptable indication(s) for delivery: (mariela all that apply) OBSTETRIC INDICATIONS: N/A: obstetric indications not applicable to thispatient. See maternal and/or , INDICATIONS: abnormality of FHR complicating . Thrombosis of umbilical vein varix. MATERNAL INDICATIONS: N/A: maternal indications not applicable for this patient. See or obstetrical Surgical Operations & Procedures: Date of delivery: 01/17/2021 Delivery Type: without labor Anesthesia: Spinal anesthesia Laceration(s): none Delivery Complications: none EBL: 800 cc Pertinent Findings & Procedures: Information for the patient's : Vinicius More [[id number]] male Weight: 4 lb 9 oz (2.07 kg) Apgars: Information for the patient's : Vinicius More [[id number]] One Minute : 6 Five Minute : 8 Course: Uncomplicated yes : Male Blood Type/Rh: A POS Antibody Screen: Antibody Screen Date Value Ref Range Status 01/16/2021 NEG NA Final Rubella: No results found for: RUBELLAIGG Contraception: will discuss with her Beecher provider : yes VTE Prophylaxis: Not Indicated Meds: Shauna More Home Medication Instructions CHENTE:[id number] Printed on:01/19/21 1320 Medication Information acetaminophen (TYLENOL) 325 MG tablet Take 650 mg by mouth as needed for Pain calcium carbonate (TUMS) 500 MG chewable tablet Take 1 tablet by mouth as needed for Heartburn ferrous sulfate (IRON 325) 325 (65 Fe) MG tablet Take 1 tablet by mouth 2 times daily (with meals) ibuprofen (ADVIL;MOTRIN) 600 MG tablet Take 1 tablet by mouth every 8 hours as needed for Pain MV-Min-Fe Fum-FA-DHA ( 1 PO) Take by mouth Activity: Activity as tolerated Diet: Regular diet Follow up Care: Follow up appointment in 2 weeks with her Provider. Condition on discharge: Stable Discharge to: Home Discharge date: 01/19/2021 Discharge Dx: S/P CS for complicated umbilical vein varix Instructions to Patient:: Pelvic Rest (no intercourse, tampons, douching, etc) x 6 weeks Specific discharge instruction printed Umbilical abnormality [Q89.9] Patient Active Problem List Diagnosis Umbilical abnormality Status post emergency section Comments: Home care, Follow-up care and control were reviewed. Signs and symptoms of mastitis and Post Depression were reviewed. The patient is to notify her physician if any of these occur. Venita Castaneda MD on 01/19/2021 at 1:20 PM documented in this [facility] Work Phone: [phone]) 206-320506-13-2021 History of Present illness Narrative* Criselda Walker - 01/19/2021 12:03 PM EDT Nutrition rescreen completed. Patient assigned a level 1. MATTHEW Davies * Venita Castaneda MD - 01/19/2021 5:55 AM EDT Images from the original note were not included. POST OPERATIVE DAY # 2 Shauna More is a 25 y.o. who was seen & examined today. Her was complicated by: Patient Active Problem List Diagnosis Umbilical abnormality Status post emergency section Today she is doing well without any chief complaint. Her lochia is moderate. She denies chest pain,shortness of breath, headache, lightheadedness and blurred vision. She is ambulating well. Flatus present. Bowel movement absent. Voiding spontaneously. She is tolerating solids. Pain is controlled yes. Vital Signs: Vitals: 01/17/21202901/18/21 0050 01/18/21 0825 01/18/212029 BP: 102/85 (!) 102/59 105/65 (!) 108/58 Pulse: 82 73 108 79 Resp: 16 16 16 18 Temp: 98.9 F (37.2 C) 97.2 F (36.2 C) 97.6 F (36.4 C) 98.9 F (37.2 C) TempSrc: Temporal Temporal Temporal Temporal SpO2: 97% 96% 97% 98% Weight: Height: Urine Input & Output last 24hrs: No intake or output data in the 24 hours ending 01/19/21 0555 Physical Exam: General: no apparent distress, alert and cooperative Affect: appropriate Lungs: No increased work of breathing, good air exchange Abdomen: abdomen soft, non-distended, non-tender Fundus: non-tender, normal size, firm, below umbilicus Incision: Clean, dry, and intact Extremities: no calf tenderness, non edematous Labs: Lab Results Component Value Date WBC 8.1 01/16/2021 HGB 7.4 (L) 01/18/2021 HCT 32.6 (L) 01/16/2021 MCV 79.9 01/16/2021 PLT 152 01/16/2021 A POS Antibody Screen: Antibody Screen Date Value Ref Range Status 01/16/2021 NEG NA Final No results found for: RUBELLAIGG LABOR DELIVERY ??? SCD's ONLY (labor through ambulation) SCD's PLUS Prophylactic Anticoagulation until discharge SCD's PLUS Prophylactic Anticoagulation for 6 weeks SCD's PLUS Therapeutic Anticoagulation for 6 weeks Vaginal Delivery [] BMI ? 40 kg/m2 Delivery All patients Vaginal Delivery [] BMI ? 40 kg/m2 AND [] Antepartum hospitalization ? 72 hours within the past month Delivery 1 Major Risk Factor: [] BMI ? 35 kg/m2 [] Low Risk Thrombophilia [] PPH+RBCs, IR, or operation [] Infection+Antibiotics [] Antepartum hospitalization ? 72 hours within the past month [] PMH: Sickle Cell, SLE, Cardiac Dz, Active IBD, Active Cancer, Nephrotic Syndrome OR 2 Minor Risk Factors: [] Multiple gestation [] Age > 40 [] PPH ? 1,000cc [] (+)FMH of VTE [] Smoker [] Preeclampsia [] BMI ? 40 kg/m2 AND [] Low Risk Thrombophilia OR ANY OF THE FOLLOWING: [] High Risk Thrombophilia without prior VTE [] Low Risk Thrombophilia with (+)FMH of VTE [] Any single prior VTE ANY OF THE FOLLOWING: [] Already on LMWH/UFH [] Multiple prior VTE [] High Risk Thrombophilia with prior VTE Low Risk Thrombophilia: FVL (heterozygous), Prothrombin (heterozygous), Protein C, Protein S High Risk Thrombophilia: FVL (homozygous), Prothrombin (homozygous), FVL+Prothrombin (heterozygous), Antithrombin III, APLS Assessment/Plan: 1. Shauna More is a 25 y.o. POD # 2 s/p RLTCS 2/2 Cat II FHT 2. Care - Doing well, VSS - Male infant in NICU - Both breast and bottle - Contraception: Per Private Attending - Encourage ambulation and use of incentive spirometer - D/C monroy catheter and saline lock IV on POD #1 - Postop Hb 7.4 - VTE Prophylaxis: Not Indicated 3. Acute blood loss anemia - hgb 10.9 -> 7.4 - VSS, ASX - continue iron and colace 4. Disposition: Continue current care Based on my clinical assessment, this patient is safe for self discharge (does not need transport by wheelchair) if she so chooses. Provider's Name: DO Peri Hall MD 01/19/2021, 5:55 AM Maternal Medicine Attending Attestation: I have performed a history and physical examination on the patient and discussed the management with the residents physician. I reviewed and agree with the findings and plan as documented in the note. 25 y.o. at 33w5d with PP care after CS on 01/17/2021 I spent 15 minutes at the visit, with more than 50% of the total face to face time of the visit in counseling and coordination of care. Venita Castaneda MD * Cindi Vazquez IBCLC - 01/18/2021 12:07 PM EDT Pt reports pumping every 3-4 hours. Observed a pump session and confirmed flange fit. Reviewed importance of pumping frequently for baby in NICU. Encouraged to pump every 2 hours during the day and every 4 at night for a total of 8-10 times each day. Encouraged to call LC with any concerns. * Venita Castaneda MD - 01/18/2021 6:11 AM EDT Images from the original note were not included. POST OPERATIVE DAY # 1 Shauna More is a 25 y.o. female This patient was seen & examined today. Her was complicated by: Patient Active Problem List Diagnosis Umbilical abnormality Status post emergency section Today she is doing well without any chief complaint. Her lochia is light. She denies chest pain, shortness of breath, headache nausea, vomiting, and blurred vision. She is ambulating well. Flatus present. Bowel movement absent. Voiding spontaneously. She is tolerating solids. Pain is controlled. Vital Signs: Vitals: 01/17/21 1305 01/17/21 1526 01/17/21 2030 01/18/21 0050 BP: 97/64 102/85 (!) 102/59 Pulse: 91 82 73 Resp: 16 16 16 Temp: 98.6 F (37 C) 98.9 F (37.2 C) 97.2 F (36.2 C) TempSrc: Temporal Temporal Temporal Temporal SpO2: 98% 97% 96% Weight: Height: Urine Input & Output last 24hrs: Intake/Output Summary (Last 24 hours) at 01/18/2021 0611 Last data filed at 01/17/2021 1920 Gross per 24 hour Intake 2047.92 ml Output 2600 ml Net -552.08 ml Physical Exam: General: no apparent distress, alert and cooperative Affect: appropriate Lungs: No increased work of breathing, good air exchange Abdomen: abdomen soft, non-distended, non-tender Fundus: non-tender, normal size, firm, below umbilicus Incision: Dressing remains in place Extremities: no calf tenderness, non edematous Labs: Lab Results Component Value Date WBC 8.1 01/16/2021 HGB 7.4 (L) 01/18/2021 HCT 32.6 (L) 01/16/2021 MCV 79.9 01/16/2021 PLT 152 01/16/2021 A POS Antibody Screen: Antibody Screen Date Value Ref Range Status 01/16/2021 NEG NA Final No results found for: RUBELLAIGG LABOR DELIVERY ??? SCD's ONLY (labor through ambulation) SCD's PLUS Prophylactic Anticoagulation until discharge SCD's PLUS Prophylactic Anticoagulation for 6 weeks SCD's PLUS Therapeutic Anticoagulation for 6 weeks Vaginal Delivery [] BMI ? 40 kg/m2 Delivery All patients Vaginal Delivery [] BMI ? 40 kg/m2 AND [] Antepartum hospitalization ? 72 hours within the past month Delivery 1 Major Risk Factor: [] BMI ? 35 kg/m2 [] Low Risk Thrombophilia [] PPH+RBCs, IR, or operation [] Infection+Antibiotics [] Antepartum hospitalization ? 72 hours within the past month [] PMH: Sickle Cell, SLE, Cardiac Dz, Active IBD, Active Cancer, Nephrotic Syndrome OR 2 Minor Risk Factors: [] Multiple gestation [] Age > 40 [] PPH ? 1,000cc [] (+)FMH of VTE [] Smoker [] Preeclampsia [] BMI ? 40 kg/m2 AND [] Low Risk Thrombophilia OR ANY OF THE FOLLOWING: [] High Risk Thrombophilia without prior VTE [] Low Risk Thrombophilia with (+)FMH of VTE [] Any single prior VTE ANY OF THE FOLLOWING: [] Already on LMWH/UFH [] Multiple prior VTE [] High Risk Thrombophilia with prior VTE Low Risk Thrombophilia: FVL (heterozygous), Prothrombin (heterozygous), Protein C, Protein S High Risk Thrombophilia: FVL (homozygous), Prothrombin (homozygous), FVL+Prothrombin (heterozygous), Antithrombin III, APLS Assessment/Plan: 1Logan More is a POD # 1 s/p PLTCS 2/2 Cat II FHT Remote from delivery 2. Care - Doing well, VSS - Male - Breast feeding - Contraception: Per Private Attending - Encourage ambulation and use of incentive spirometer - D/C monroy catheter and saline lock IV on POD #1 - Postop Hb 7.4 - VTE Prophylaxis: Not Indicated 3. Acute Blood Loss Anemia - Hgb 10.9->7.4 - EBL: 800ml - Asymptomatic - Continue iron and colace 4. Disposition: Continue current care Based on my clinical assessment, this patient is safe for self discharge (does not need transport by wheelchair) if she so chooses. Provider's Name: DO Gilberto Hall MD 01/18/2021, 6:11 AM Maternal Medicine Attending Attestation: The patient was not in the room. Vitals: 01/17/21 1526 01/17/21 2030 01/18/21 0050 01/18/21 0825 BP: 97/64 102/85 (!) 102/59 105/65 Pulse: 91 82 73 108 Resp: 16 16 16 16 Temp: 98.6 F (37 C) 98.9 F (37.2 C) 97.2 F (36.2 C) 97.6 F (36.4 C) TempSrc: Temporal Temporal Temporal Temporal SpO2: 98% 97% 96% 97% Weight: Height: Ambulating Will continue PP care. Venita Castaneda MD * Adri Griffin RN - 01/17/2021 5:31 PM EDT States baby doing better now. Back from NICU. Medicated with Oxycodon, Mom was here and had to go home. Pumping breast independently * Adri Griffin RN - 01/17/2021 3:17 PM EDT Name change on mom band to maiden name, Band changed to maiden name. Pharmacy notified. * Kim Antunez RN - 01/17/2021 4:00 AM EDT abd binder applied, pt denies need for more pain med. States pain in getting better * Kim Antunez RN - 01/17/2021 3:15 AM EDT Pt dozing now, resps easy * Kim Antunez RN - 01/17/2021 3:[address] estrada notified of pts pain level, ok to given dilaudid again at 0330 if pain level does not decrease * Kim Antunez RN - 01/17/2021 1:59 AM EDT Radiology here for xray * Kim Antunez RN - 01/17/2021 1:54 AM EDT Awaiting xray due to inability to perform preop count documented in this [facility] Work Phone: [phone]) 637-392306-10-2021 Les Rainey is a new patient who's primary care provider is [facility], MD Samuel here for evaluation of heart. Chief Complaint Patient presents with ECHO echo for umbilical cord clot History of Presenting Problem HPI Thank you for consulting us regarding Shauna Rainey. She is referred to the cardiology clinic at [facility] for evaluation of the heart. I saw this patient in the echocardiogram clinic on 01/16/2021. Patient was referred to the echocardiographic clinic for a echocardiogram there was umbilical cord clot on OB exam. Cardiac ROS Review of Systems See the full note Past Medical History History reviewed. No pertinent past medical history. Past Surgical History: Procedure Laterality Date SECTION, LOW TRANSVERSE 2016, 2018 Medications: Outpatient Encounter Medications as of 01/16/2021 Medication Sig Dispense Refill multivitamin (TRINATAL RX) tablet Take 1 Tablet by mouth daily No facility-administered encounter medications on file as of 01/16/2021. Allergies: No Known Allergies Family Medical History: History reviewed. No pertinent family history. Social History: Social History Socioeconomic History Marital status: Spouse name: None Number of children: None Years of education: None Highest education level: None Occupational History None Tobacco Use Smoking status: Never Smoker Smokeless tobacco: Never Used Substance and Sexual Activity Alcohol use: Never Drug use: Never Sexual activity: None Other Topics Concern None Social History Narrative None Social Determinants of Health Social determinant risk not applicable to this patient. Physical Exam: Vitals: 01/16/21 1107 BP: 119/70 Pulse: 101 Growth percentile SmartLinks can only be used for patients less than 20 years old. Weight - Scale: 74.8 kg Facility age limit for growth percentiles is 20 years. Height: (!) 152.4 cm Facility age limit for growth percentiles is 20 years. Physical Exam Patient is here for the echocardiogram. Physical exam was deferred. Studies: echocardiogram: Position; Vertex. 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 Atrioventricular and ventriculoarterial concordance seen. Atria: Normal left and right atrial size. There was a large patent foramen ovale with [id number] shunt. Tricuspid valve: There was normal tricuspid valve. There was normal Doppler across the tricuspid valve. Mitral valve: Normal mitral valve. There was normal Doppler across the mitral valve. Right ventricle: There was normal size and systolic function. Left ventricle: There was normal size and systolic function. Aortic valve: Normal aortic valve. There was normal Doppler across the aortic valve seen. Pulmonary valve: Normal pulmonary valve. There was normal Doppler across the pulmonary valve seen. Ventricular septum: There was no obvious ventricular septal defect seen. Main pulmonary artery: Normal main pulmonary artery. Pulmonary arteries: Good size branch pulmonary arteries. Pulmonary veins: There were at least 2/4 pulmonary veins seen entering into the left atrium. Systemic venous return: There was normal systemic venous return seen. Aortic arch: Aortic arch was not well seen, however normal 3-vessel view. Ductal arch: Patent Ductal arch. 3-vessel view: There was normal 3-vessel view. Ductus venosus: There was normal flow pattern seen in the ductus venosus. Umbilical artery and umbilical vein. There was normal pulse Doppler in umbilical artery and umbilical vein. Rhythm: There was sinus rhythm. There was no arrhythmia noted. Impression and recommendations. 1)Technically difficult study due to limited acoustic windows, movements and maternal body habitus. 2) Aortic arch was not well seen, however normal 3-vessel view. Otherwise normal echocardiogram. 3) I have discussed the limitations of echocardiographic examination, that is likely to miss small ventricular septal defects as well as mild semilunar valve stenosis. Patent foramen ovale and patent ductus arteriosus are normal findings in utero. Coarctation of aorta is difficult to diagnose pre natally in the presence of patent ductus arteriosus. 4) I have also discussed echocardiographic findings in detail including circulation, pathophysiology of Patent foramen ovale and patent ductus arteriosus, prognosis, medical and surgical treatments, follow up echocardiograms and follow ups. 5) I would like to see in cardiology clinic here at [facility], 1-2 months after the or earlier if cardiac condition/status changes in any way. Counseling and/or coordination of care was greater than 35 minutes which is more than 50% of the total time of 60 min (more content not included)...[facility] Umbilical abnormality Congenital anomaly, unspecified Status post emergency section Other postprocedural status documented in this encounter [facility] Work Phone: Evaluation note* 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, complicating , childbirth, or the puerperium, unspecified as to episode of care Functional [facility] Instability of left shoulder joint- Primary Bursitis and tendinitis of shoulder region [facility] 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, complicating , childbirth, or the puerperium, unspecified as to episode of care [facility] 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, complicating , childbirth, or the puerperium, unspecified as to episode of care [facility]* Diagnosis Pneumonia due to infectious organism, unspecified laterality, unspecified part of lung- Primary documented in this encounter [facility] Work Phone: Evaluation note* Diagnosis Encounter to establish care with new provider- Primary Encounter for wellness examination in adult Glucose intolerance (impaired glucose tolerance) Impaired glucose tolerance test Class 1 obesity due to excess calories without serious comorbidity with body mass index (BMI) of 30.0 to 30.9 in adult Dietary counseling and surveillance Intractable menstrual migraine with status migrainosus Menstrual migraine, with intractable migraine, so stated, with status migrainosus documented in this encounter [facility] Work Phone: Evaluation note* Diagnosis Mass of upper outer quadrant of left breast- Primary Class 1 obesity due to excess calories without serious comorbidity with body mass index (BMI) of 30.0 to 30.9 in adult Fibrocystic change of breast, left documented in this encounter [facility] Work Phone: Evaluation note* Diagnosis Mass of upper outer quadrant of left breast documented in this encounter [facility] Work Phone: Evaluation note* Diagnosis Mass of upper outer quadrant of left breast documented in this encounter [facility] Work Phone: Evaluation note* Diagnosis Abnormal mammogram of left breast Mass of multiple sites of left breast documented in this encounter [facility] Work Phone: Evaluation note* Diagnosis Abnormal mammogram of left breast Mass of multiple sites of left breast documented in this encounter [facility] Work Phone: Evaluation note* Diagnosis Onset Date Resolution Status Admit Date HER2-positive carcinoma of l eft breast acute January 23, 2025 9:48am Invasive ductal carcinoma of left breast acute January 23, 2025 9:48am 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 deleted January 23, 2025 9:48am [facility] Work Phone: Evaluation note* Diagnosis Infiltrating ductal carcinoma of left breast- Primary Depression, major, recurrent, mild Class 1 obesity due to excess calories without serious comorbidity with body mass index (BMI) of 31.0 to 31.9 in adult documented in this encounter [facility] Work Phone: Hospital Discharge instructionsAmbulatory Orders* Genetic Counseling, [facility] Location: None Selected * Oncology Location: None Selected * Plastic surgery Location: None Selected [facility] Work Phone: Reason for visit Narrative* Imaging (Routine) - Authorized Specialty Diagnoses / Procedures Referred By Ilsa amaay Referred To Contact Radiology Diagnoses Mass of upper outer quadrant of left breast Procedures BI US breast limited left Ryan Cochran PA-C [address] [place] [address] Phone: tel: fax: Referral ID Status Reason Start Date Expiration Date Visits Requested Visits Authorized [id number] Authorized Perform Procedure 01/04/2025 01/04/2026 1 1 [facility] Work Phone: Rewwky for visit Narrative* Imaging (Routine) - Pending Review Specialty Diagnoses / Procedures Referred By Ilsa amaya Referred To Contact Radiology Diagnoses Mass of upper outer quadrant of left breast Procedures BI mammo bilateral diagnostic tomosynthesis BI mammo left diagnostic tomosynthesis Ryan Cochran PA-C [address] [place] [address] Phone: tel: fax: Referral ID Status Reason Start Date Expiration Date Visits Requested Visits Authorized [id number] Pending Review Perform Procedure 01/04/2025 01/04/2026 1 1 [facility] Work Phone: Reason for visit Narrative* Imaging (Routine) - Pending Review Specialty Diagnoses / Procedures Referred By Contac t Referred To Contact Radiology Diagnoses Abnormal mammogram of left breast Mass of multiple sites of left breast Procedures BI US guided breast localization and biopsy left BI stereotactic guided breast left localization and biopsy Ryan Cochran PA-C [address] [place] [address] Phone: tel: fax: Referral ID Status Reason Start Date Expiration Date Visits Requested Visits Authorized [id number] Pending Review Perform Procedure 01/10/2025 01/10/2026 1 1 [facility] Work Phone: reason for visit Narrative* Imaging (Routine) - Authorized Specialty Diagnoses / Procedures Referred By Contac t Referred To Contact Radiology Diagnoses Abnormal mammogram of left breast Mass of multiple sites of left breast Procedures BI breast biopsy clip imaging Ryan Cochran PA-C [address] [place] [address] Phone: tel: fax: Referral ID Status Reason Start Date Expiration Date Visits Requested Visits Authorized [id number] Authorized Perform Procedure 01/10/2025 01/10/2026 1 1 [facility] Work Phone: Instructions * Patient Instructions - Elton Bauer MD - 10/08/2017 6:03 PM EST Will initiate treatment with Ceftin 500 mg twice a day. Safe in . Gargle and if significant drainage from the ear call for drops. Do not allow water in if drainage. Ear Infection (Otitis Media): Care Instructions Your Care Instructions An ear infection may start with a cold and affect the middle ear (otitis media). It can hurt a lot.Most ear infections clear up on their own in a couple of days. Most often you will not need antibiotics. This is because many ear infections are caused by a virus. Antibiotics don't work against a virus. Regular doses of pain medicines are the best way to reduce your fever and help you feel better. Follow-up care is a manley part of your treatment and safety. Be sure to make and go to all appointments, and call your doctor if you are having problems. It's also a good idea to know your test resultsand keep a list of the medicines you take. How can you care for yourself at home? Take pain medicines exactly as directed. If the doctor gave you a prescription medicine for pain, take it as prescribed. If you are not taking a prescription pain medicine, take an egpn-ovi-xylfmwe medicine, such as acetaminophen (Tylenol), ibuprofen (Advil, Motrin), or naproxen (Aleve). Read and follow all instructions on the label. Do not take two or more pain medicines at the same time unless the doctor told you to. Many pain medicines have acetaminophen, which is Tylenol. Too much acetaminophen (Tylenol) can be harmful. Plan to take a full dose of pain reliever before bedtime. Getting enough sleep will help you get better. Try a warm, moist washcloth on the ear. It may help relieve pain. If your doctor prescribed antibiotics, take them as directed. Do not stop taking them just because you feel better. You need to take the full course of antibiotics. When should you call for help? Call your doctor now or seek immediate medical care if: You have new or increasing ear pain. You have new or increasing pus or blood draining from your ear. You have a fever with a stiff neck or a severe headache. Watch closely for changes in your health, and be sure to contact your doctor if: You have new or worse symptoms. You are not getting better after taking an antibiotic for 2 days. Where can you learn more? Log into your personal health record on [email or web address] and enter X558 in the Education box to learn more about Ear Infection (Otitis Media): Care Instructions. Current as of: March 06, 2016 Content Version: 11.2 7272-5608 [employer]. Care instructions adapted under license by your healthcare professional. If you have questions about a medical condition or this instruction, always ask your healthcare professional. [employer] disclaims any warranty or liability for your use of this information. in this encounter Assessments Diagnosis Acute suppurative otitis med ia of right ear without spontaneous rupture of tympanic membrane, recurrence not specified Diagnosis Pain in both upper extremities Diagnosis Food poisoning- Primary Unspecified food poisoning Dehydration , unspecified gestational age Summary Purpose Family History No Family History Records Found Relationship Condition Age at Onset Recorded Date/T toni Not Specified No pertinent family history Unknown Advance Directives No Advanced Directives Records FoundDocuments on File Type Date Recorded Patient Area Secretary Expl anation Advance Directives and Livin g Will 01/04/2019 6:57 PM Documents on File Type Date Recorded Patient Area Secretary Expl anation Advance Directives and Livin g Will 10/27/2020 8:17 AM Latest Code Status on File Code Status Date Activated Date Inactivated Comments Full Code 01/17/2021 5:25 AM Full Code 01/16/2021 9:58 PM 01/17/2021 5:25 AM Discharge Instructions * Instructions* Dorina Macias RN - 01/04/2019 Follow up with your [employer] in the morning. May follow up with urologist. Drink 8-10 large glasses of ice water a day. Empty bladder every 2 hours. * Attachments The following attachments cannot be sent through Care Everywhere. * : Back Pain (Bots[place]an) * : Weeks 18 to 22 (Botswanan) * : When to Call (After 20 Weeks): General Info (Bots[place]an) documented in this encounter* Attachments The following attachments cannot be sent through Care Everywhere. * Food Poisoning ([place]an) * Dehydration ([place]an) * : Weeks 26 to 30 (Botswanan) documented in this encounter History of Present Illness * Herminio Mccullough MD - 01/04/2019 9:06 PM EDT Observation Note Patient Identification: Name: Shauna RaineyAge: 23 y.o.Sex: femaleDOB: 1995MRN: [id number] Chief Complaint: Chief Complaint Patient presents with Abdominal Pain left flank radiating to abdomen History of Present Illness: Problem List: Patient Active Problem List Diagnosis SNOMED CT(R) Date Noted Bedbug bite BITE OF BED BUG 02/08/2018 Otitis media OTITIS MEDIA 10/08/2017 Cervical myofascial pain syndrome MYOFASCIAL PAIN 12/23/2016 Allergic rhinitis ALLERGIC RHINITIS 12/23/2016 Gastritis GASTRITIS 12/23/2016 Past Medical History: Past Medical History: Diagnosis Date Mononucleosis 12/13/2014 Past Surgical History: Past Surgical History: Procedure Laterality Date SECTION, CLASSIC 12/01/2016 Home Meds: No medications prior to admission. Current Meds: No current facility-administered medications for this encounter. Current Outpatient Medications Medication Sig Dispense Refill vitamin with Ca-Iron-FA 27-1 mg Tab Take 1 tablet by mouth daily . naproxen (EC NAPROSYN) 375 MG TbEC Take 1 tablet (375 mg total) by mouth 2 (two) times a day with meals. 60 each 0 norethindrone (MICRONOR) 0.35 mg tablet Take 1 tablet by mouth daily. triamcinolone (KENALOG) 0.1 % cream Apply topically 2 (two) times a day As needed in thin layer to affected areas. Do not use on face. 80 g 0 Allergies: Allergies Allergen Reactions Tree Pollen-Thai Elm Itching Tree Pollen-Red Maple Itching Immunizations: Immunization History Administered Date(s) Administered DTaP 01/24/1997, 04/04/1997, 06/20/1997, 07/03/1997 HiB 01/24/1997, 04/04/1997, 06/20/1997, 04/10/1998 IPV 01/24/1997, 04/04/1997, 06/20/1997 MMR 04/10/1998 Social History: Social History Tobacco Use Smoking status: Never Smoker Smokeless tobacco: Never Used Substance Use Topics Alcohol use: No Family History: Family History Problem Relation Age of Onset Chronic bronchitis Father BAYLEE disease Father Objective: tMax 24 hrs: Temp (24hrs), Av.6 F (36.4 C), Min:97.6 F (36.4 C), Max:97.6 F (36.4 C) Vitals Ranges: Temp: [97.6 F (36.4 C)] 97.6 F (36.4 C) Heart Rate: [88] 88 Resp: [18] 18 BP: (102)/(60) 102/60Intake and Output Last 3 Shifts: No intake/output data recorded. Assessment: heart rate tracing reviewed and I could not document reactivity. Patient however is only 21 weeks gestational age therefore this is an expected finding. Plan: I personally reviewed the heart rate tracing however I did not examine the patient. Herminio Franklin01/05/2019 documented in this encounter* Era Giordano, BRAKE REPAIRER - 10/02/2019 8:26 AM EST [facility] [address] [facility] [address] [facility] [id number] Chief Complaint Patient presents with Left Arm - Pain Right Arm - Pain Left Hand - Pain Right Hand - Pain Shauna Rainey 23 year old female presents to the office with complaints of B/L hand and arm pain. She states that about a week ago she woke up with pain in both hands and arms which hasn't improved.She is and doesn't like to take any medications for pain. She states that she finds it difficult to hold her children. She denies any injury to either arm or hand. She does have occasional pins and needles feeling but this isn't constant. She does use the chiropractor and is considering make an appt for an adjustment but wanted to get checked out first. The patient's past medical history, surgical history, social history, family history, medications and allergies were reviewed with the patient today and are available in the chart for further review. Allergies Allergen Reactions Tree Pollen-Thai Elm Itching Tree Pollen-Red Maple Itching Current Outpatient Medications: norethindrone (MICRONOR) 0.35 mg tablet, Take 1 tablet by mouth daily., Disp: , Rfl: Past Medical History: Diagnosis Date Mononucleosis 12/13/2014 Past Surgical History: Procedure Laterality Date SECTION, CLASSIC 12/01/2016 Social History Socioeconomic History Marital status: Spouse name: Not on file Number of children: Not on file Years of education: Not on file Highest education level: Not on file Occupational History Not on file Social Needs Financial resource strain: Not on file Food insecurity Worry: Not on file Inability: Not on file Transportation needs Medical: Not on file Non-medical: Not on file Tobacco Use Smoking status: Never Smoker Smokeless tobacco: Never Used Substance and Sexual Activity Alcohol use: No Drug use: No Sexual activity: Yes Partners: Male Lifestyle Physical activity Days per week: Not on file Minutes per session: Not on file Stress: Not on file Relationships Social connections Talks on phone: Not on file Gets together: Not on file Attends [employer] service: Not on file Active member of club or organization: Not on file Attends meetings of clubs or organizations: Not on file Relationship status: Not on file Other Topics Concern Not on file Social History Narrative Not on file ROS: Review of Systems Constitutional: Negative for activity change and fatigue. HENT: Negative for congestion, hearing loss and trouble swallowing. Eyes: Negative for visual disturbance. Respiratory: Negative for chest tightness and shortness of breath. Cardiovascular: Negative for chest pain and palpitations. Gastrointestinal: Negative for abdominal pain, diarrhea, nausea and vomiting. Endocrine: Negative for polydipsia, polyphagia and polyuria. Genitourinary: Negative for decreased urine volume, difficulty urinating and hematuria. Musculoskeletal: Positive for myalgias and neck stiffness. Negative for arthralgias and joint swelling. Skin: Negative for color change, rash and wound. Allergic/Immunologic: Negative for immunocompromised state. Neurological: Negative for dizziness, weakness, light-headedness and numbness. Hematological: Does not bruise/bleed easily. Psychiatric/Behavioral: Negative for confusion and sleep disturbance. The patient is not nervous/anxious. PE: Physical Exam Constitutional: She is oriented to person, place, and time. She appears well- developed and well-nourished. HENT: Head: Normocephalic. Eyes: Pupils are equal, round, and reactive to light. Neck: Normal range of motion. Neck supple. Cardiovascular: Normal rate and regular rhythm. Pulmonary/Chest: Effort normal and breath sounds normal. Abdominal: Soft. Bowel sounds are normal. Musculoskeletal: Right wrist: She exhibits tenderness. Left wrist: She exhibits tenderness. Right upper arm: She exhibits tenderness. Left upper arm: She exhibits tenderness. Right forearm: She exhibits tenderness. Left forearm: She exhibits tenderness. Neurological: She is alert and oriented to person, place, and time. Skin: Skin is warm and dry. ORTHO: Back Exam Tenderness The patient is experiencing tenderness in the cervical. Range of Motion The patient has normal back ROM. Muscle Strength The patient has normal back strength. Other Erythema: no back redness Scars: absent Imaging: Cervical No acute fracture or traumatic malalignment. Nonspecific straightening of the cervical lordosis. Findings may relate to positioning or muscle spasm. Assessment/Plan: After examination and reviewing of the patient x-ray images, I did encouraged the patient to visit her chiropractor if this is something that has provided her relief in the past. I also suggested massage therapy for the shoulders and neck especially since she is and would like to limit oral medications. The patient verbalizes understanding and is in agreement with the treatment plan. I will see her back as needed. documented in this encounter Hospital Course Note Send Summary: Discharge Summ julissa Providers: Provider RoleProvider Name Brigid Butcher James R PrimaryRequired, No Pcp Note Recipients: Brigid Marquez MD Required, No Pcp, MD Discharge: Summary: Admission Date: .11-May-2019 03:59:00 Discharge Date: 13-May-2019 Attending Physician at Discharge: Brigid Marquez Admission Reason: Previous Section Final Discharge Diagnoses: Previous Section Procedures: Repeat low transverse section on May 11, 2019 Condition at Discharge: Satisfactory Disposition at Discharge: .Home Vital Signs: T PRBPSpO2 Value36.0225106/5498% Date/Time05/13 4:0010 4:001 4:0010 4:0010/ 4:00 Range(36.6C - 36.6C ) (76 - 76 ) (16 - 16 ) (96 - 96 )/ (54 - 54 ) (98% - 98% ) Hospital Course: Patient tolerated procedure well. She received several doses of IV Ancef perioperatively. She regained both bowel and bladder function. Patient discharged on postoperative day 2 Discharge Information: and Continuing Care: Disch (more content not included)... 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 [facility] 2024 9:48am Chief Complaint Admit Date BREAST CANCER- DISCUSS SX January 23 9:48am INVASIVE DUCTAL CARCIMONA January 25 9:45am BREAST CA January 29, 2025 3:08 pm Reason for Visit Admit Date HER2-positive carcinoma of left breast [facility] 2024 9:48am Invasive ductal carcinoma of left breast January 23, 2025 9:48am 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 [facility] 2024 9:48am Axillary lymphadenopathy January 29, 2025 3:08pm HER2-positive carcinoma of left breast [facility] 2024 3:08pm Anemia January 29, 2025 3:08 pm Additional Source Comments INFORMATION SOURCE (unrecogn ized section and content) DATE CREATED AUTHOR 01/28/2018 [facility] DATE CREATED AUTHOR AUTHOR'S ORGANIZ ATION 05/24/2019 [facility] DATE CREATED AUTHOR AUTHOR'S ORGANIZ ATION 06/10/2019 [employer] DATE CREATED AUTHOR AUTHOR'S ORGANIZ ATION 06/17/2019 [facility] DATE CREATED AUTHOR AUTHOR'S ORGANIZ ATION 01/22/2021 [facility] DATE CREATED AUTHOR AUTHOR'S ORGANIZ ATION 01/31/2021 [facility] DATE CREATED AUTHOR AUTHOR'S ORGANIZ ATION 05/24/2024 [facility] DATE CREATED AUTHOR AUTHOR'S ORGANIZ ATION 05/24/2024 [facility] DATE CREATED AUTHOR AUTHOR'S ORGANIZ ATION 06/04/2024 [facility] DATE CREATED AUTHOR AUTHOR'S ORGANIZ ATION 07/06/2024 [facility] DATE CREATED AUTHOR AUTHOR'S ORGANIZ ATION 01/21/2025 [facility] DATE CREATED AUTHOR AUTHOR'S ORGANIZ ATION 01/30/2025 [facility] DATE CREATED AUTHOR AUTHOR'S ORGANIZ ATION 01/31/2025 [facility] Reason for Visit (unrecogniz ed section and content) Reason Comments Abdominal Pain left flank radiating to abdomen Reason Comments Pain Reason Comments Emesis Reason Comments Establish Care Diarrhea Off and on x2 months Reason Comments Shortness of Breath Pt states she just f inished atbx for a pneumonia diagnosis, was having increasing shortness of breath today. Reason Comments New Patient Visit Reason Comments Follow-up C/O INDENT IN LT ARTURO AST Reason Comments Follow-up 1 MONTH F/U WITH LAB S AND BREAST TESTING Quick Note - Dorina Macias RN - 01/04/2019 9:06 PM EDTQuick Note - Juana Miller RN - 01/04/2019 6:03 PM EDT Miscellaneous Notes (unrecog nized section and content) Pt ambulatory off unit in stable, undelivered condition. Pt to unit from ED via wheelchair with c/o left flank pain since 1400 rated 10/10 and vomiting. To room 2731 gown and privacy provided. documented in this encounter Jaimee Noland RN - 10/27/2020 9:50 AM Jaimee Carter RN - 10/27/2020 8:34 AM Debi Wakefield MD - 10/27/2020 8:17 AM Jaimee Carter RN - 10/27/2020 8:12 AM EDT ED Notes (unrecognized secti on and content) First liter of IVF completed, pt up to ambulate in [place] per Dr Shay's request. Pt tolerated well, denies dizziness, continues to complain of nausea. Dr Shay aware, second liter of IVF's ordered heart tones detectable with doppler, range is 170's to 190's. Pt states she has an anterior placenta. ED PROVIDER NOTE [facility] EM[facility]ENCY [facility] NAME: Shauna Rainey AGE: 24 y.o. : 1995 VISIT DATE: 10/27/2020 CSN: [id number] PCP: Elton Bauer MD Chief Complaint Patient presents with Emesis Chief complaint nausea vomiting History of present illness this is a 24-year-old female who is 22 weeks . States that she had a sandwich from [employer] approximately 12 hours ago subsequently developed nausea vomiting and diarrhea and feels weak. Denies hematemesis hematochezia or melena. Denies pelvic cramping or vaginal bleeding. She was triaged to room 1 great immediately upon arrival noted to be slightly hypotensive blood pressure 97/54 pulse of 91 respirate is 18 temp 97 3. She denied any abdominal cramping at this point. Past Medical History: Diagnosis Date Mononucleosis 12/13/2014 Past Surgical History: Procedure Laterality Date SECTION, CLASSIC 12/01/2016 Family History Problem Relation Age of Onset Chronic bronchitis Father BAYLEE disease Father Social History Socioeconomic History Marital status: Spouse name: Not on file Number of children: Not on file Years of education: Not on file Highest education level: Not on file Occupational History Not on file Social Needs Financial resource strain: Not on file Food insecurity Worry: Not on file Inability: Not on file Transportation needs Medical: Not on file Non-medical: Not on file Tobacco Use Smoking status: Never Smoker Smokeless tobacco: Never Used Substance and Sexual Activity Alcohol use: No Drug use: No Sexual activity: Yes Partners: Male Lifestyle Physical activity Days per week: Not on file Minutes per session: Not on file Stress: Not on file Relationships Social connections Talks on phone: Not on file Gets together: Not on file Attends [employer] service: Not on file Active member of club or organization: Not on file Attends meetings of clubs or organizations: Not on file Relationship status: Not on file Other Topics Concern Not on file Social History Narrative Not on file Previous Medications Medication Sig [DISCONTINUED] norethindrone (MICRONOR) 0.35 mg tablet Take 1 tablet by mouth daily. Allergies Allergen Reactions Tree Pollen-Thai Elm Itching Tree Pollen-Red Maple Itching Review of Systems All other systems reviewed and are negative. Patient Vitals for the past 24 hrs: BP Temp Temp src Pulse Resp SpO2 Height Weight 10/27/20 0945 95/62 88 10/27/20 0919 104/61 93 99 % 10/27/20 0842 91 10/27/20 0832 (!) 97/54 10/27/20 0810 (!) 93/50 97.3 F (36.3 C) Oral (!) 119 18 99 % 5' 70.3 kg (155 lb) Physical Exam Vitals signs and nursing note reviewed. Constitutional: Appearance: Normal appearance. HENT: Nose: Nose normal. Mouth/Throat: Mouth: Mucous membranes are dry. Eyes: Extraocular Movements: Extraocular movements intact. Pupils: Pupils are equal, round, and reactive to light. Neck: Musculoskeletal: Normal range of motion and neck supple. Cardiovascular: Rate and Rhythm: Normal rate and regular rhythm. Pulmonary: Effort: Pulmonary effort is normal. Breath sounds: Normal breath sounds. Abdominal: General: Bowel sounds are normal. There is distension. Palpations: Abdomen is soft. Musculoskeletal: Normal range of motion. Skin: General: Skin is warm. Neurological: Mental Status: She is alert. Laboratory & Radiographic Imaging (if done): Results for orders placed or performed during the hospital encounter of 10/27/20 POC CBC and Differential Result Value Ref Range WBC 10.61 4.50 - 11.00 K/mcL RBC 4.45 4.00 - 5.20 M/mcL Hemoglobin 13.2 12.0 - 16.0 g/dL Hematocrit 40.1 36.0 - 46.0 % MCV 90.1 80.0 - 100.0 fL MCH 29.7 26.0 - 34.0 pg MCHC 32.9 31.0 - 37.0 g/dL RDW - CV 14.7 11.6 - 14.8 % Platelets 197 150 - 400 K/mcL MPV 9.5 9.4 - 12.4 fL Neutrophils 86.9 % Lymphocytes 7.6 % Monocytes 4.1 % Eosinophils 0.8 % Basophils 0.2 % IG Percent 0.40 % Neutrophils Abs 9.23 (H) 1.70 - 7.00 K/mcL Lymphocytes Abs 0.81 (L) 0.90 - 4.00 K/mcL Monocytes Abs 0.43 0.30 - 0.90 K/mcL Eosinophils Abs 0.08 0.00 - 0.50 K/mcL Basophils Abs 0.02 0.00 - 0.30 K/mcL IG Absolute 0.04 0.00 - 0.30 K/mcL POC Basic Metabolic Panel Result Value Ref Range Glucose 109 (H) 65 - 99 mg/dL BUN 9 8 - 25 mg/dL Creatinine 0.37 (L) 0.40 - 1.10 mg/dL GFR 151 >=60 mL/min/1.73 m2 Sodium 137 135 - 145 mmol/L Potassium 3.7 3.5 - 5.1 mmol/L Chloride 106 98 - 108 mmol/L TCO2 20 (L) 21 - 32 mmol/L Ionized Calcium 4.3 (L) 4.5 - 5.3 mg/dL POC Liver Panel Plus Result Value Ref Range Albumin 3.1 (L) 3.2 - 5.2 g/dL Alkaline Phosphatase 57 40 - 140 U/L ALT (SGPT) 16 0 - 40 U/L AST (SGOT) 21 0 - 45 U/L Bilirubin, Total 0.5 0.0 - 1.3 mg/dL Total Protein 6.9 6.0 - 8.0 g/dL Amylase 46 25 - 115 U/L GGT 6 (L) 7 - 33 U/L No orders to display Procedures MDM Number of Diagnoses or Management Options Dehydration: established, improving Food poisoning: established, improving , unspecified gestational age: established, improving Diagnosis management comments: ED course and treatment here IV fluids were given Zofran patient was tolerating p.o. was ambulated without dizziness. White count was 10 6 hemoglobin of 13 hematocrit 40 platelet count 197 heart tones 170., Glucose 109 electrolytes revealed a sodium 137 potassium 3 7 chloride 106 bicarb 20 BUN of 9 creatinine 0.37 Amount and/or Complexity of Data Reviewed Clinical lab tests: ordered and reviewed Tests in the medicine section of CPT : ordered Decide to obtain previous medical records or to obtain history from someone other than the patient: yes Risk of Complications, Morbidity, and/or Mortality Presenting problems: high Diagnostic procedures: moderate Management options: low . . Clinical Impression: 1. Food poisoning 2. Dehydration 3. , unspecified gestational age ED Disposition None Follow-up Information 1. Elton Bauer MD. Specialty: Family Medicine [address] [place] [id number] Contact information for after-discharge care Follow-up information has not been specified. New Prescriptions ondansetron (ZOFRAN) 8 MG tablet Take 0.5 (one-half) tablet (4 mg total) by mouth every 8 (eight) hours as needed for nausea . Discontinued Medications Disp Refills Start End norethindrone (MICRONOR) 0.35 mg tablet 10/27/2020 Class: Historical Med Debi Pederson MD 10/27/20 0953 Pt reports vomiting and diarrhea since 0600 today. States I think I got food poisoning from [employer] Pt is 22 weeks . Denies pain, abdominal cramping or bleeding. documented in this encounter Ordered Prescriptions (unrec ognized section and content) Prescription Sig Dispensed Refills Start Date End Da te ibuprofen (ADVIL;MOTRIN) 600 MG tablet Take 1 tablet by mouth every 8 hours as needed for Pain 15 tablet 0 01/19/2021 ferrous sulfate (IRON 325) 325 (65 Fe) MG tablet Take 1 tablet by mouth 2 times daily (with meals) 30 tablet 3 01/19/2021 Scheduled Active and Recently Administ ered Medications (unrecognized section and content) Medication Order 01/17/2021 01/18/2021 01/19/2021 ceFAZolin (ANCEF) 2000 mg in dextrose 4 % 100 mL IVPB (premix) (COMPLETED) 2,000 mg, Intravenous, EVERY 8 HOURS, 3 doses, First dose on Wed01/17/21 at 0900, Last dose on Wed01/18/21 at 0100 0100 (New Bag - Provider: Kim Antunez RN - Comment: given per paris oneal crna in OR)0130 (Stopped - Provider: Kim Antunez RN)0940 (New Bag - Provider: Adri Griffin RN)1010 (Due: Stopped - Provider: Adri Griffin RN)1718 (New Bag - Provider: Adri Griffin RN)1748 (Due: Stopped - Provider: Adri Griffin RN) 0110 (New Bag - Provider: Tamiko Martinez, LISA)0140 (Stopped - Provider: Tamiko Martinez RN) ferrous sulfate (IRON 325) tablet 325 mg 325 mg, Oral, 2 TIMES DAILY WITH MEALS, First dose on Wed01/17/21 at 0800, Start if Hgb less than 10., 1727 (Not Given - Provider: Adri Griffin RN - Reason: Order parameters not met) 0831 (Given - Provider: Theresa Ruiz RN)1853 (Given - Provider: Theresa Ruiz, LIAS) 1031 (Given - Provider: Theresa Ruiz, LISA)1651 (Given - Provider: Theresa Ruiz, LISA)1700 (Due) ibuprofen (ADVIL;MOTRIN) tablet 600 mg 600 mg, Oral, EVERY 6 HOURS, First dose on Wed01/17/21 at 0545, Do not crush or chew., 0542 (Not Given - Provider: Esther Arora RN - Reason: Order parameters not met)1511 (Not Given - Provider: Adri Griffin RN - Reason: Other - Comment: on toradol)212 (Not Given - Provider: Tamiko Martinez RN - Reason: Order parameters not met) 0254 (Not Given - Provider: Tamiko Mratinez RN - Reason: Order parameters not met)0831 (Given - Provider: Theresa Ruiz RN)1420 (Given - Provider: Theresa Ruiz RN)211 (Given - Provider: Gianna Rabago RN)2345 (Not Given - Provider: Gianna Rabago RN - Reason: Order parameters not met) 0430 (Given - Provider: Gianna Rabago RN)1031 (Given - Provider: Theresa Ruiz RN)1652 (Given - Provider: Theresa Ruiz RN)2345 (Due) ketorolac (TORADOL) injection 30 mg (COMPLETED) 30 mg, Intravenous, EVERY 6 HOURS, First dose on Wed01/17/21 at 0545, For 1 day, Do not administer for more than 5 days. First dose should be administered 6 hours after anesthesia's administered dose in OR or PACU. Do NOT give with ibuprofen., 0831 (Given - Provider: Adri Griffin RN)1509 (Given - Provider: Adri Griffin RN)212 (Given - Provider: Tamiko Martinez RN) 0254 (Given - Provider: Tamiko Martinez RN) ketorolac (TORADOL) injection 60 mg (COMPLETED) 60 mg, Intramuscular, ONCE, On Wed01/17/21 at 0245, For 1 dose, Do not administer for more than 5 days. 0232 (Given - Provider: Kim Antunez RN) measles, mumps & rubella vaccine (MMR) injection 0.5 mL 0.5 mL, Subcutaneous, PRIOR TO DISCHARGE, Starting on Wed01/17/21 at 0524, For 1 dose, Administer if Rubella non-immune or equivocal, vitamin 27-1 MG tablet 1 tablet 1 tablet, Oral, DAILY, First dose on Wed01/17/21 at 0900, Begin when normal bowel activity resumes., 0900 (Due) 0744 (Not Given - Provider: Theresa Ruiz RN - Reason: Contraindicated) 0749 (Not Given - Provider: Theresa Ruiz RN - Reason: Contraindicated) sodium chloride flush 0.9 % injection 10 mL 10 mL, Intravenous, EVERY 12 HOURS SCHEDULED (2 times per day), First dose on Chanda 01/16/21 at 2215 0833 (Given - Provider: Adri Griffin RN)2122 (Given - Provider: Tamiko Martinez, LISA) 09 (Due)2110 (Not Given - Provider: Gianna Rabago RN - Reason: Order parameters not met) 1133 (Not Given - Provider: Theresa Ruiz RN - Reason: Loss of IV access)2099 (Due) sodium chloride flush 0.9 % injection 10 mL 10 mL, Intravenous, EVERY 12 HOURS SCHEDULED (2 times per day), First dose on Wed01/17/21 at 0900, 1510 (Given - Provider: Adri Griffin RN)2121 (Given - Provider: Tamiko Martinez, LISA) 899 (Due)2109 (Not Given - Provider: Gianna Rabago RN - Reason: Order parameters not met) 113 (Not Given - Provider: Theresa Ruiz RN - Reason: Loss of IV access)2099 (Due) Gzbsbww-Qcytmu-Hejmc Pertussis (BOOSTRIX) injection 0.5 mL 0.5 mL, Intramuscular, PRIOR TO DISCHARGE, Starting on Wed01/17/21 at 0524, For 1 dose, If not previously administered during at 27-36 weeks as recommended by CDC., Continuous Medication Order 01/17/2021 01/18/2021 01/19/2021 oxytocin (PITOCIN) 30 units in 500 mL infusion () 125 vicente-units/min (125 mL/hr), Intravenous, at 125 mL/hr, CONTINUOUS, Starting on Wed01/17/21 at 0300, For 4 hours, To follow bolus received on Labor and Delivery 0304 (New Bag - Provider: Kim Antunez, LISA) oxytocin (PITOCIN) 30 units in 500 mL infusion () 250 vicente-units/min (250 mL/hr), Intravenous, at 250 mL/hr, CONTINUOUS, Starting on Wed01/17/21 at 0300, For 4 hours, To follow bolus received on Labor and Delivery 0103 (New Bag - Provider: Kim Antunez RN) PRN Medication Order 01/17/2021 01/18/2021 01/19/2021 0.9 % sodium chloride infusion 25 mL, Intravenous, at 100 mL/hr, PRN, If patient receiving piggyback infusions without ordered maintenance IV fluids or with frequent/long duration piggyback infusions, Starting on Chanda 01/16/21 at 2155, Administer at the same rate as the piggyback being infused. 0.9 % sodium chloride infusion 25 mL, Intravenous, at 100 mL/hr, PRN, If patient receiving piggyback infusions without ordered maintenance IV fluids or with frequent/long duration piggyback infusions, Starting on Wed01/17/21 at 0524, Administer at the same rate as the piggyback being infused., acetaminophen (TYLENOL) suppository 650 mg(Linked Group 1) 650 mg, Rectal, EVERY 4 HOURS PRN, Pain Mild (1-3), Fever, Fever >100.5 (38 C), Starting on Chanda 01/16/21 at 2155, Use suppository if NPO or unable to tolerate oral medications. acetaminophen (TYLENOL) tablet 650 mg(Linked Group 1) 650 mg, Oral, EVERY 4 HOURS PRN, Pain Mild (1-3), Fever, Fever >100.5 (38 C), Starting on Chanda 01/16/21 at 2155, Do not use if NPO. acetaminophen (TYLENOL) tablet 650 mg 650 mg, Oral, EVERY 6 HOURS PRN, Pain Mild (1-3), Starting on Wed01/17/21 at 0524, Maximum dose of acetaminophen is 4000 mg from all sources in 24 hours., 0831 (Given - Provider: Adri Griffin RN)1509 (Given - Provider: Adri Griffin RN)2120 (Given - Provider: Tamiko Martinez RN) 0254 (Given - Provider: Tamiko Martinez RN)0831 (Given - Provider: Theresa Ruiz, LISA)1420 (Given - Provider: Theresa Ruiz, LISA)2112 (Given - Provider: Gianna Rabago, LISA) 0431 (Given - Provider: Gianna Rabago, RN)1030 (Given - Provider: Theresa Ruiz, LISA)1652 (Given - Provider: Theresa Ruiz, LISA) diphenhydrAMINE (BENADRYL) injection 12.5 mg 12.5 mg, Intravenous, EVERY 6 HOURS PRN, Itching, Starting on Wed01/17/21 at 0240 0254 (Given - Provider: Kim Antunez, LISA) diphenhydrAMINE (BENADRYL) injection 25 mg 25 mg, Intravenous, EVERY 6 HOURS PRN, Itching, Hives, Starting on Wed01/17/21 at 0524, docusate sodium (COLACE) capsule 100 mg 100 mg, Oral, 2 TIMES DAILY PRN, Constipation, Starting on Wed01/17/21 at 0524, Do not crush or break., 0832 (Given - Provider: Adri Griffin RN) 0831 (Given - Provider: Theresa Ruiz, LISA)2112 (Given - Provider: Gianna Rabago, LISA) 1030 (Given - Provider: Theresa Ruiz, LISA) HYDROmorphone (DILAUDID) injection 0.25 mg(Linked Group 2) 0.25 mg, Intravenous, EVERY 3 HOURS PRN, Pain Moderate (4-6), Starting on Wed01/17/21 at 0223, If oral and IV narcotics ordered, use oral first and only use IV if oral is ineffective or cannot take oral. Do Not give oral and IV within 1 hour of each other unless specifically ordered., 0232 (See Alternative - Provider: Kim Antunez, LISA) HYDROmorphone (DILAUDID) injection 0.5 mg(Linked Group 2) 0.5 mg, Intravenous, EVERY 3 HOURS PRN, Pain Severe (7-10), Starting on Wed01/17/21 at 0223, If oral and IV narcotics ordered, use oral first and only use IV if oral is ineffective or cannot take oral. Do Not give oral and IV within 1 hour of each other unless specifically ordered., 0232 (Given - Provider: Kim Antunez RN) lansinoh lanolin ointment Topical, EVERY 1 HOUR PRN, Dry Skin, nipple discomfort, Starting on Wed01/17/21 at 0524, 1508 (Given - Provider: Adri Griffin RN) ondansetron (ZOFRAN) injection 4 mg(Linked Group 3) 4 mg, Intravenous, EVERY 6 HOURS PRN, Nausea, Vomiting, Starting on Chanda 01/16/21 at 2155, Administer if oral route cannot be used. ondansetron (ZOFRAN) injection 4 mg 4 mg, Intravenous, EVERY 6 HOURS PRN, Nausea, Starting on Wed01/17/21 at 0524, ondansetron (ZOFRAN-ODT) disintegrating tablet 4 mg(Linked Group 3) 4 mg, Oral, EVERY 8 HOURS PRN, Nausea, Vomiting, Starting on Chanda 01/16/21 at 2155 oxyCODONE (ROXICODONE) immediate release tablet 10 mg(Linked Group 4) 10 mg, Oral, EVERY 4 HOURS PRN, Pain Severe (7-10), Starting on Wed01/17/21 at 0524, 0832 (See Alternative - Provider: Adri Griffin RN)1248 (Given - Provider: Adri Griffin RN)1729 (Given - Provider: Adri Griffin RN)2120 (See Alternative - Provider: Tamiko Martinez RN) 0254 (See Alternative - Provider: Tamiko Martinez RN)0831 (See Alternative - Provider: Theresa Ruiz, LISA)1420 (See Alternative - Provider: Theresa Ruiz, LISA)2112 (See Alternative - Provider: Gianna Rabago, LISA) 0431 (See Alternative - Provider: Gianna Rabago, LISA)1031 (See Alternative - Provider: Theresa Ruiz, LISA)1652 (See Alternative - Provider: Theresa Ruiz, LISA) oxyCODONE (ROXICODONE) immediate release tablet 5 mg(Linked Group 4) 5 mg, Oral, EVERY 4 HOURS PRN, Pain Moderate (4-6), Starting on Wed01/17/21 at 0524, 0832 (Given - Provider: Adri Griffin, RN)1248 (See Alternative - Provider: Adri Griffin RN)1729 (See Alternative - Provider: Adri Griffin, RN)2120 (Given - Provider: Tamiko Martinez, RN) 0254 (Given - Provider: Tamiko Martinez, LISA)0831 (Given - Provider: Theresa Ruiz, RN)1420 (Given - Provider: Theresa Ruiz, LISA)2112 (Given - Provider: Gianna Rabago, LISA) 0431 (Given - Provider: Gianna Rabago, LISA)1031 (Given - Provider: Theresa Ruiz, LISA)1652 (Given - Provider: Theresa Ruiz, LISA) simethicone (MYLICON) chewable tablet 80 mg 80 mg, Oral, EVERY 6 HOURS PRN, Cramping, Flatulence, Starting on Wed01/17/21 at 0524, sodium chloride flush 0.9 % injection 10 mL 10 mL, Intravenous, PRN, Line Care, After every IV line use, Starting on Chanda 01/16/21 at 2155 sodium chloride flush 0.9 % injection 10 mL 10 mL, Intravenous, PRN, Line Care, Starting on Wed01/17/21 at 0524, After every IV line use, Linked Groups Order Group 1: acetaminophen (TYLENOL) tablet 650 mgJump to med 650 mg, Oral, EVERY 4 HOURS PRN, Pain Mild (1-3), Fever, Fever >100.5 (38 C), Starting on Chanda 01/16/21 at 2155
Do not use if NPO.
Or acetaminophen (TYLENOL) suppository 650 mgJump to med 650 mg, Rectal, EVERY 4 HOURS PRN, Pain Mild (1-3), Fever, Fever >100.5 (38 C), Starting on Chanda 01/16/21 at 2155
Use suppository if NPO or unable to tolerate oral medications.
Group 2: HYDROmorphone (DILAUDID) injection 0.25 mgJump to med 0.25 mg, Intravenous, EVERY 3 HOURS PRN, Pain Moderate (4-6), Starting on Wed01/17/21 at 0223
If oral and IV narcotics ordered, use oral first and only use IV if oral is ineffective or cannot take oral. Do Not give oral and IV within 1 hour of each other unless specifically ordered.
Or HYDROmorphone (DILAUDID) injection 0.5 mgJump to med 0.5 mg, Intravenous, EVERY 3 HOURS PRN, Pain Severe (7-10), Starting on Wed01/17/21 at 0223
If oral and IV narcotics ordered, use oral first and only use IV if oral is ineffective or cannot take oral. Do Not give oral and IV within 1 hour of each other unless specifically ordered.
Group 3: ondansetron (ZOFRAN-ODT) disintegrating tablet 4 mgJump to med 4 mg, Oral, EVERY 8 HOURS PRN, Nausea, Vomiting, Starting on Chanda 01/16/21 at 2155 Or ondansetron (ZOFRAN) injection 4 mgJump to med 4 mg, Intravenous, EVERY 6 HOURS PRN, Nausea, Vomiting, Starting on Chanda 01/16/21 at 2155
Administer if oral route cannot be used.
Group 4: oxyCODONE (ROXICODONE) immediate release tablet 5 mgJump to med 5 mg, Oral, EVERY 4 HOURS PRN, Pain Moderate (4-6), Starting on Wed01/17/21 at 0524, Or oxyCODONE (ROXICODONE) immediate release tablet 10 mgJump to med 10 mg, Oral, EVERY 4 HOURS PRN, Pain Severe (7-10), Starting on Wed01/17/21 at 0524, Scheduled Medication Order 05/21/2024 05/22/2024 05/23/2024 azithromycin 500 mg in dextrose 5% 250 mL IV (COMPLETED) 500 mg, intravenous, at 250 mL/hr, Administer over 60 Minutes, Once, On Wed05/22/24 at 2245, For 1 dose, Suspected Indication (Select all that apply): Pneumonia, Type of Therapy: Empiric, Indications: Pneumonia 225 (New Bag - Provider: Jaimee Noland, RN)235 (Stopped - Provider: Jaimee Noland, RN) cefTRIAXone (Rocephin) 1 g in dextrose (iso) IV 50 mL (COMPLETED) 1 g, intravenous, at 100 mL/hr, Administer over 30 Minutes, Once, On Wed05/22/24 at 2245, For 1 dose, premix bag, Suspected Indication (Select all that apply): Pneumonia, Type of Therapy: Empiric, Indications: Pneumonia 225 (New Bag - Provider: Jaimee Noland, LISA)2320 (Stopped - Provider: Jaimee Noland, RN) iohexol (OMNIPaque) 350 mg iodine/mL solution 68 mL (COMPLETED) 68 mL, intravenous, Once in imaging, Starting on Wed05/23/24 at 0130, For 1 dose 0148 (Given - Provid er: Breanne Greenwood) potassium chloride CR (Klor-Con M20) ER tablet 20 mEq (COMPLETED) 20 mEq, oral, Once, On Wed05/22/24 at 2325, For 1 dose, Best given with food and a glass of water to minimize gastric irritation. Do not crush or chew. 2345 (Given - Provider: Jaimee Noland, LISA) sodium chloride 0.9 % bolus 1,000 mL (COMPLETED) 1,000 mL, intravenous, at 999 mL/hr, Administer over 1 Hours, Once, On Wed05/22/24 at 2335, For 1 dose 2345 (New Bag - Provider: Jaimee Noland, LISA) 0035 (Stopped - Provider: Jaimee Noland, LISA) Care Teams (unrecognized sec tion and content) Cover Machine Operator Relationship Specialty Start Date End Date Kinjal Cleveland MD [address] [id number] PCP - General Family Medicine 07/04/21 Cover Machine Operator Relationship Specialty Start Date End Date Kinjal Cleveland MD [address] [id number] PCP - General Family Medicine 07/04/21 Cover Machine Operator Relationship Specialty Start Date End Date Kinjal Cleveland MD [address] [id number] PCP - General Family Medicine 07/04/21 Cover Machine Operator Relationship Specialty Start Date End Date Kinjal Cleveland MD [address] [id number] PCP - General Family Medicine 07/04/21 Cover Machine Operator Relationship Specialty Start Date End Date Kinjal Cleveland MD [address] [id number] PCP - General Family Medicine 05/22/24 Cover Machine Operator Relationship Specialty Start Date End Date Kinjal Cleveland MD [address] [id number] PCP - General Family Medicine 05/22/24 Cover Machine Operator Relationship Specialty Start Date End Date Kinjal Cleveland MD [address] [id number] PCP - General Family Medicine 05/22/24 Cover Machine Operator Relationship Specialty Start Date End Date Ryan Cochran PA-C [address] [place] [address] PCP - General Internal Medicine 01/04/25 Cover Machine Operator Relationship Specialty Start Date End Date Ryan Cochran PA-C [address] [place] [address] PCP - General Internal Medicine 01/04/25 Cover Machine Operator Relationship Specialty Start Date End Date Ryan Cochran PA-C [address] [place] [id number] PCP - General Internal Medicine 01/04/25 Team Status: Active Member Role Status Dates Ryan Cochran PA, PA Primary Care Provider Active Team Status: Inactive Member Role Status Dates Ryanchristopher Hilliardall PA, PA Primary Care Provider Active Start: January 23, 2025 End: January 23, 2025 Ryanchristopher Cochran PA, PA Referring Provider Active Start: January 23, 2025 End: January 23, 2025 Dr. Tamiko Figueroa MD Attending Provider Active Start: January 23, 2025 End: January 23, 2025 Team Status: Active Member Role Status Dates Ryan Cochran PA, PA Primary Care Provider Active Start: January 25, 2025 Dr. Tamiko Figueroa MD Attending Provider Active Start: January 25, 2025 Dr. Tamiko Figueroa MD Referring Provider Active Start: January 25, 2025 Team Status: Inactive Member Role Status Dates Ryan Cochran PA, PA Primary Care Provider Active Start: January 29, 2025 End: January 29, 2025 Dr. Ara Franklin MD Attending Provider Active Start: January 29, 2025 End: January 29, 2025 Dr. Tamiko Figueroa MD Referring Provider Active Start: January 29, 2025 End: January 29, 2025 Team Status: Active Member Role Status Dates Ryan Cochran PA, PA Primary Care Provider Active Start: January 29, 2025 Dr. Ara Franklin MD Attending Provider Active Start: January 29, 2025 Dr. Ara Franklin MD Referring Provider Active Start: January 29, 2025 Team Status: Inactive Member Role Status Dates Ryan Cochran PA, PA Primary Care Provider Active Start: January 25, 2025 End: January 25, 2025 Dr. Tamiko Figueroa MD Attending Provider Active Start: January 25, 2025 End: January 25, 2025 Dr. Tamiko Figueroa MD Referring Provider Active Start: January 25, 2025 End: January 25, 2025 Cover Machine Operator Relationship Specialty Start Date End Date Ryan Cochran PA-C [address] [place] [id number] PCP - General Internal Medicine 01/04/25 Goals (unrecognized section and content) Goals may be documented in a n alternate sectionGoals may be documented in an alternate sectionGoals may be documented in an alternate section FOR RECORDS PERTAINING TO PATIENTS WHO ARE OR HAVE BEEN ENROLLED IN A CHEMICAL DEPENDENCY/SUBSTANCEABUSE PROGRAM, SOME INFORMATION MAY BE OMITTED. This clinical summary was aggregated from multiple sources. Caution should be exercised in using it in the provision of clinical care. This summary normalizes information from multiple sources, and as a consequence, information in this document may materially change the coding, format and clinical context of patient data. In addition, data may be omitted in some cases. CLINICAL DECISIONS SHOULD BE BASED ON THE PRIMARY CLINICAL RECORDS. [facility]. provides no warranty or guarantee of the accuracy or completeness of information in this document.
== END | disposition home or self-care (01) ==
PROVIDERS: PCP Physician Assistant Medical; Referring Provider Surgery; Visit Provider Surgery
DX: C50.912 Malignant neoplasm of unspecified site of left female breast (principal); R92.8 Other abnormal and inconclusive findings on diagnostic imaging of breast
CPT/HCPCS: 76642

== ENCOUNTER → 2025-02-08 | Outpatient (CLI) | payer BC, SELFPAY ==
--- NOTE | 2025-02-08 12:54 | ECHODONC_ITS ---
Reason For Study Reason For Study: PRIOR TO CHEMO Procedure This was a 2D Doppler, Color Flow transthoracic echocardiogram. Exam performed in department. Left Ventricle Normal LV size. Left ventricular systolic function is normal. The left ventricular ejection fraction is 60 %. No regional wall motion abnormalities noted. Right Ventricle Normal RV size. Normal systolic function. Atria Normal left atrium. Normal right atrium. Mitral Valve Normal mitral valve. Tricuspid Valve Normal tricuspid valve. Aortic Valve Trisinus/trileaflet aortic valve. Pulmonic Valve Normal pulmonic valve. Great Vessels Normal aortic root. The pulmonary artery is normal size. Inferior vena cava collapse with respiration. Pericardium/Pleural No pericardial effusion. MMode/2D Measurements & Calculations LVIDd: 4.5 cm IVSd: 0.69 cm LAV(MOD-sp4): 31.2 ml LVIDs: 2.9 cm LVPWd: 1.1 cm RVDd: 2.6 cm FS: 36.7 % LVAd ap4: 24.6 cm2 SV(MOD-sp4): 44.7 ml SV(sp4-el): 46.6 ml LVLd ap4: 7.2 cm SI(MOD-sp4): 26.3 ml/m2 EDV(MOD-sp4): 71.1 ml EDV(sp4-el): 72.0 ml LVAs ap4: 12.8 cm2 LVLs ap4: 5.5 cm ESV(MOD-sp4): 26.4 ml ESV(sp4-el): 25.5 ml EF(MOD-sp4): 62.9 % EF(sp4-el): 64.6 % LA A4 area: 15.1 cm2 LA dimension(2D): 3.1 cm RA A4 area: 8.2 cm2 Time Measurements MV dec time: 0.15 sec Doppler Measurements & Calculations MV E max sherwin: 96.4 cm/sec Lat Peak E' Sherwin: 23.2 cm/sec Med Peak E' Sherwin: 14.1 cm/sec MV A max sherwin: 50.6 cm/sec E/E' lat: 4.2 E/E' med: 6.8 MV E/A: 1.9 MV V2 max: 109.5 cm/sec Ao V2 max: 138.4 cm/sec MV max P.8 mmHg MV dec slope: 662.5 cm/sec2 Ao max P.7 mmHg MV V2 mean: 52.2 cm/sec Ao V2 mean: 100.6 cm/sec MV mean P.4 mmHg Ao mean P.5 mmHg MV V2 VTI: 33.4 cm Ao V2 VTI: 30.0 cm AV (velocity ratio): 0.98 LV V1 max: 134.3 cm/sec PA V2 max: 103.2 cm/sec LV V1 max P.2 mmHg PA V2 mean: 69.4 cm/sec LV V1 mean P.0 mmHg LV V1 mean: 93.1 cm/sec LV V1 VTI: 29.5 cm ECHO/ONC Echo Complete Interpretation Summary Normal LV size. Left ventricular systolic function is normal. The left ventricular ejection fraction is 60 %. The global longitudinal strain is normal. The global longitudinal strain = -22. 3 % (normal). Ordering Physician: Ara Franklin Referring Physician: Ara Franklin Performed By: Sonal Payan and Student
== END | disposition home or self-care (01) ==
LOC: CVS 12:51
PROVIDERS: PCP Physician Assistant Medical; Referring Provider Internal Medicine Hematology & Oncology; Visit Provider Internal Medicine Hematology & Oncology
DX: C50.912 Malignant neoplasm of unspecified site of left female breast (principal)
CPT/HCPCS: 93306; 93356

== ENCOUNTER 2025-02-13 06:06 | Day surgery (SDC) | payer BC, SELFPAY ==
[2025-02-13] VITALS (8 sets, daily range): BP systolic 94–108; BP diastolic 50–67; PULSE 73–86; RESP 16; TEMP 36.1–36.4; O2SAT 98–100; BMI 31.7
[2025-02-13 06:42] LABS: Internal QC Validated? YES +Cl - CLEAR BKGD; Pregnancy, Urine Negative Negative; Record Kit Lot#,Urine Preg 0000947241
[2025-02-13] MEDS: Lactated Ringers 1,000 ML 15 ML IV (06:52)
--- NOTE | 2025-02-13 07:13 | PRE.ANES_ITS ---
ASA Classification* ASA Classification ASA Classification: 2 Assessment & Plan Anesthesia* Anesthesia Assessment Anesthesia Assessment: Discussed sedation and/or anesthesia options, risks, benefits, and alternatives with patient/parents/legal guardian/POA. Questions invited. The patient/parents/legal guardian/POA seems to understand and agrees to proceed with anesthesia plan. Reviewed the physical assessment, medical history, allergy history and patient home medications list prior to surgery/procedure/anesthetic and documented any changes. Performed airway and anesthesia risk assessments. Anesthesia Type Anesthesia Type: MAC History Source History Obtained from:: Patient and Chart Anesthesia Focused Assessment* Temperature: 97.5 F Pulse Rate: 73 Blood Pressure: 103/67 Respiratory Rate: 16 Pulse Ox: 99 Oxygen Delivery Method: Room Air Airway Assessment Mouth opens: >3 cm Mallampati Score: IV Teeth Condition: Chipped/Broken (Tooth #9 has been repaired. Unknown if it was bonded or crowned.) Neck Range of motion (ROM): Full ROM Labs Anesthesia Preop lab: CBC WBC 6.8 K/mm3 (4.4-11.0) 01/29/25 16:15 01/29/25 RBC 4.45 M/mm3 (4.2-5.4) 01/29/25 16:15 01/29/25 Hgb 13.2 g/dL (12.0-15.0) 01/29/25 16:15 01/29/25 Hct 39.7 % (37-47) 01/29/25 16:15 01/29/25 Plt Count 264 K/mm3 (150-450) 01/29/25 16:15 01/29/25 CHEMISTRY Potassium 3.8 mmol/L (3.3-5.1) 01/29/25 16:15 01/29/25 Sodium 139 mmol/L (133-145) 01/29/25 16:15 01/29/25 BUN 16 mg/dL (4-19) 01/29/25 16:15 01/29/25 Creatinine 0.61 mg/dL (0.70-1.20) L 01/29/25 16:15 Glucose 92 mg/dL (70-99) 01/29/25 16:15 01/29/25 TSH 0.85 uIU/mL (0.358-3.74) 03/18/21 12:45 COAG Urine Test Negative Negative 02/13/25 06:20 02/13/25 Pre-Assessment Diagnosis/Proposed Procedure Planned Operative Procedure(s): (R) Insertion, Vascular Port right poss left Anesthesia History Anesthesia History - urgent care physician: Anesthesia History - urgent care physician Hx Hospitalization Yes: 04/2024 PNEUMONIA 02/12/25 14:05 Any Problems With Anesthesia No 02/12/25 14:05 Cholinesterase deficiency No 02/12/25 14:05 You/Your Family Experience No 02/12/25 14:05 fever (hyperthermia) with Relationship Recent Exposure to Contagious No 02/13/25 06:47 Disease Does patient have nerve No 02/12/25 14:05 stimulator Patient instructed to have device shut off --Does patient have Pacemaker No 02/13/25 06:48 or ICD? When Was Last Pacemaker Check QUESTION #4 FULL TEXT: You/Your Family Experience fever (hyperthermia) with Anesthesia Last Oral Intake Last Oral intake: Last Oral Intake NPO since 00:00 02/13/25 06:48 Meds taken in AM with sips of No 02/13/25 06:48 water? Meds patient instructed to take am of surgery PONV PONV - urgent care physician: PONV - urgent care physician Female Yes 02/12/25 14:05 HX of Motion Sickness No 02/12/25 14:05 HX of N/V After Surgery No 02/12/25 14:05 Non-Smoker Yes 02/12/25 14:05 Duration of Surgery greater Yes 02/12/25 14:05 than 60 minutes Number of Risk Factors 3 02/12/25 14:05 PONV Score Moderate Risk 02/12/25 14:05 Height & Weight Height & Weight: Anesthesia: Height & Weight Height 5 ft 02/13/25 06:48 Weight: 73.8 kg 02/13/25 06:48 Body Mass Index (BMI) 31.7 02/13/25 06:48 Respiratory Assessment Respiratory Assessment - urgent care physician: Respiratory Tract Infection Hx - urgent care physician Hx Respiratory Tract Infection No 02/12/25 14:05 STOP Sleep Apnea STOP Sleep Apnea - urgent care physician: STOP Sleep Apnea - urgent care physician Hx Hypertension No 02/12/25 14:05 Hx Sleep Apnea No 02/12/25 14:05 CPAP BIPAP Do you snore loudly (louder No 02/12/25 14:05 than talking or can be heard Do you often feel tired/ No 02/12/25 14:05 fatigued/ sleepy during daytime? Has anyone observed you stop No 02/12/25 14:05 breathing during sleep? STOP Results Negative 02/12/25 14:05 QUESTION #5 FULL TEXT : Do you snore loudly (louder than talking or can be heard through closed doors)? 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 Specify any problems Hx of Preganancy in last 3 No 02/12/25 14:05 Months Nurse Filling Out Transfusion MGTER 02/12/25 14:05 & Questions: Date: 02/12/25 02/12/25 14:05 Time: 14:08 02/12/25 14:05 Patient unable to answer at this time (ie. confused, unrespo /Reproduction History /Reproductive History - urgent care physician: /Reproductive Hx- urgent care physician Hx Now No 02/12/25 14:05 Gestational Age (in weeks): EDC: Hx Hx Para Hx Section SAB No 02/12/25 14:05 Active Medications Active Medications: Current Medications Generic Name Dose Route Start Last Admin Trade Name Freq PRN Reason Stop Dose Admin Lactated Ringer's 1,000 mls @ 15 mls/hr 02/13/25 06:15 02/13/25 06:52 IV 15 mls/hr .Q48H ENRIQUE Administration Cefazolin Sodium 2 gm/ Sodium 110 mls @ 200 mls/hr 02/13/25 07:07 Chloride IV 02/13/25 07:39 X1 ONE PFSH Medical History (Updated 02/12/25 @ 14:14 by Cori Zelaya) Wears glasses Non-smoker Shortness of breath on exertion History of echocardiogram Anemia Axillary lymphadenopathy Home Medications ?Medication ?Instructions ?Recorded ?Last Taken ?Type acetaminophen 500 mg capsule 1,000 mg PO Q6H PRN pain 02/12/25 Unknown History Allergy/AdvReac Type Severity Reaction Status Date / Time No Known Allergies Allergy Verified 02/12/25 14:03 Family History Other No pertinent family history Surgical History (Updated 02/12/25 @ 14:05 by Cori Zelaya) History of wisdom tooth extraction delivery delivered Social History Smoking Status: Never smoker alcohol intake: never Review of Systems (Anesthesia) ROS Narrative System reviewed and no additional complaints, except as documented.
--- NOTE | 2025-02-13 07:19 | HP.PCM_ITS ---
History and Physical Date of Admission: 02/13/25 Date of Service: 01/23/25 MR#: [id number] Acct: [id number] Name: SHAUNA RAINEY Rep #: [id number] : 1995 Provider: Dr. Tamiko Figueroa MD Age/Sex: 29/F Location: [facility] Status: Signed Intake Vital Signs 01/23/2509:59 Height 5 ft Weight: 160 lb 6 oz BMI 31.3 BP 105/72 Blood Pressure Location Rt brachial Position Sitting Respiration 17 Pulse 64 Pulse Source Monitor Temp 97.5 F L Temp Source Temporal Pulse Oximetry (%) 99 Oxygen Delivery Method room air Intake Visit Reasons: BREAST CANCER- DISCUSS SX Chief Complaint: breast cancer-discuss sx Is patient in pain?: No Allergies No Known Allergies Allergy (Verified 01/23/25 10:01) Medications ?Medication ?Instructions ?Recorded ?Confirmed ?Type acetaminophen 325 mg tablet 650 mg PO Q4-6H PRN 01/23/25 01/23/25 Hi story (Tylenol) PFSH Surgical History (Updated 01/23/25 @ 09:58 by Nikki Vazquez) delivery delivered Social History (Updated 01/23/25 @ 09:59 by Nikki Vazquez) Smoking Status: Never smoker alcohol intake: never HPI HPI HPI: 29-year-old female states that she noticed some inversion of her areolar about a year ago. States in last few months she noticed that her left breast was more firm unable to feel discrete masses. 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 Ultrasound did not show any abnormal or large left axillary lymph nodes. Patient's age of menses 13, age at time of of first child 21, no family history of breast cancer, no previous breast biopsies prior to the most recent biopsies. Patient denies any nipple discharge. ROS General General: Yes weight change, fatigue and breast cancer; No appetite or colon cancer HEENT HEENT: No difficulty swallowing, eye injury, eye surgery, swollen glands or hoarseness Endo Endocrine: No thyroid disease, diabetes mellitus, thyroid cancer, Hair loss, heat intolerance or cold intolerance Skin Skin: No rash or changing moles Breast Breast: Yes left breast lump, breast pain, abnormal mammogram and abnormal US; No right breast lump, nipple discharge or breast enlargement Additional Details: Positive Invasive ductal carcinoma Musc Musculoskeletal: No back problems, arthritis, rheumatoid arthritis, gout or joint pain Cardio Cardiovascular: No murmur, pacemaker, heart disease, atrial fibrillation, high blood pressure, heart attack, heart stent, palpitations, shortness of breath with exertion or chest pain Psych Psychiatric: No depression, anxiety or hearing voices Resp Respiratory: No shortness of breath, No sleep apnea, No cough, No COPD, No asthma, No emphysema and No wheezing Gastro Gastrointestinal: No abdominal pain, No nausea or vomiting, Yes diarrhea, No constipation, No blood in stool, No acid reflux, No hemorrhoids, No ulcers, No gallbladder problem and No black,tarry stools [place] Hematologic: No blood thinners, No blood disorders, No bleeding, No anemia and No blood clots Neuro Neurologic: No numbness and No tingling Exam Const General: cooperative, healthy appearing and no acute distress [facility] Head: normal to inspection Chest Other: Breast inspection: Left breast resolving ecchymosis from biopsies, multiple firm areas noted on inspection of left breast Right breast: Fibroglandular tissue, no masses on exam, no nipple discharge or pain, no change in overlying skin Left breast: multiple firm areas especially in the upper outer quadrant, inversion of part of her areolar superior to her nipple, no nipple discharge, resolving ecchymosis No axillary or supraclavicular adenopathy bilaterally Resp Effort & Inspection: normal respiratory effort Cardio Rate: regular rate GI Inspection: non-distended Palpation: soft Skin General: no rashes or lesions noted Neuro General: patient oriented x3 Extrem General: no clubbing, cyanosis or edema Psych Affect: normal affect Assessment and Plan Assessment and Plan (1) 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: Status: Deleted (2) HER2-positive carcinoma of left breast: Status: Acute (3) Invasive ductal carcinoma of left breast: Status: Acute Comment: Left breast?3 biopsied, 4 lesions total Orders: Orders Breast Bilateral W/O and W Today C50.919 - Malignant neoplasm of unspecified site of unspecified female breast Referrals Oncology C50.919 - Malignant neoplasm of unspecified site of unspecified female breast Plastic surgery C50.919 - Malignant neoplasm of unspecified site of uns pecified female breast Genetic Counseling, [facility] C50.919 - Malignant neoplasm of unspecified site of unspecified female breast Plan Reviewed patient's mammography as well as ultrasound with the patient and her I did also personally review. Discussed with patient and her since she is HER2 positive, ER/DC negative, will refer to oncology. Likely she will receive neoadjuvant due to multifocal left breast tumors and for genetic testing. Did discuss port placement with the patient. Did also place an order for MRI now. Patient is also aware that if any lymph nodes are suspicious on MRI would biopsy prior to starting neoadjuvant treatment-currently not suspicious on ultrasound. Will plan for repeat MRI once neoadjuvant is completed before surgery. I have discussed above with the patient- Port-a-Cath placement. Right possible left IJ Patient has been counseled as to the risks/benefits of the procedure. I have explained the risks of the surgery, including but not limited to: infection, bleeding, injury to any blood vessels/nerves, injury to lungs (such as pneumothorax or hemothorax and need for chest tube), not having any access, nonfunctioning of port due to thrombosis, infection of port, etc. the patient understands and agrees to proceed. I have answered all the patient's questions to the patient?s satisfaction and the patient has no further questions. I have given the patient options for initial surgical treatment after neoadjuvant treatment. Options are the following: lumpectomy followed by radiation therapy vs. mastectomy vs. mastectomy followed by immediate reconstruction. I have described the procedures to the patient. I have described the advantages and disadvantages of the options, but I have told the patient that among the options, the survival rate for breast cancer is the same. I have told the patient that with all the surgeries that a sentinel lymph node biopsy is required. I have described the procedure of sentinel lymph node biopsy to the patient. I have told the patient that if the biopsy is positive for metastatic disease, then a full axillary lymph node dissection is required. I have told the patient that adjuvant chemotherapy will be required should the lymph nodes reveal metastatic disease. Also, a full lymph node dissection will increase the risk for lymphedema, especially if there are 4 or more lymph nodes positive for metastatic disease and radiation to the axilla is also required. I have told the patient the risks of surgery, including but not limited to: infection, bleeding, scar tissue, seroma and persistent seroma, lymph leak, injury to any blood vessels, injury to any nerves (particularly the long thoracic, the thoracodorsal, and the second intercostal brachial and the resultant sequelae), lymphedema, cosmetic deformity, dysesthesias, wound infections, further surgery (especially if margins are not clear), complications of anesthesia, etc. the patient understands. Patient is planning for likely mastectomy with reconstruction. Will refer patient to Dr. Pantoja. Tamiko Figueroa M.D. Pager: [phone] [facility] [address] [place] [address], [address] [place] [address] Office: 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
[2025-02-13] MEDS: Lidocaine 1% /Epi 1:100 (50ml) 50 ML VIAL (08:00)
--- NOTE | 2025-02-13 08:22 | OP.PCM_ITS ---
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: No Type of Anesthesia: Local MAC RN Documented Start/Stop Times: Operation Date: 02/13/25 07:30 Case Time Into Pre-Op 02/13/25 06:10 Out of Pre-Op 02/13/25 07:34 Anesthesia Start 02/13/25 07:39 Into Room 02/13/25 07:39 Procedure Start 02/13/25 07:52 Procedure End 02/13/25 08:21 Anesthesia End 02/13/25 08:23 Out of Room 02/13/25 08:23 Into Recovery 02/13/25 08:26 Into Phase II Recovery 02/13/25 08:47 Out of Recovery 02/13/25 08:47 Out of Phase II 02/13/25 09:50 Procedure Start Time: 07:52 Procedure Stop Time: 08:21 Select all DRAINS/GRAFTS/IMPLANTS that apply: Implanted device Implanted device details: [employer] PowerPort isp M.R.I. 6Fr Lot Lot [id number] Special Medications: Ancef 2 g IV x 1 Estimated Blood Loss: 5 cc Specimen collected: No Description of surgery: After informed consent was given, the patient was brought to the operating room and placed in the supine position. Appropriate time out protocol was followed. Patient was then given IV conscious sedation for anesthesia. The patient's r ight upper chest and neck were then prepped with a surgical skin preparation and sterile surgical drapes were placed. After proper landmarks were ascertained, the skin at the upper right chest area was then infiltrated with 1:1 mixture of 1% lidocaine with epinephrine and 0.5% marcaine. A needle trocar was then inserted into the right internal jugular vein with ultrasound guidance-multiple vessels were viewed with u/s and the right IJ was chosen-- and there was good aspiration of venous blood. A wire was then threaded into the needle trocar and this was visualized under fluoroscopy to e nsure that the wire was in the superior vena cava. Once this was done, then the needle trocar was removed. A small skin pantera was made with an 11 blade knife at the wire entrance site. The dilator with the introducer sheath attached was then placed over the wire into the right internal jugular vein via the Seldinger technique and this was visualized under fluoroscopy. The dilator and sheath were in proper position as visualized by fluoroscopy. A subcutaneous pocket was then created caudad to the catheter insertion site. A transverse skin incision was made after the skin and subcutaneous tissues were infiltrated with local anesthetic. Blunt dissection was then used to create a space large enough for placement of the subcutaneous port. The catheter was then tunneled into the subcutaneous pocket. The wire and dilator were then removed. The catheter was then threaded into the introducer sheath and was positioned with its tip at the junction of the superior vena cava and the right atrium as visualized under fluoroscopy. The excess catheter was transected. The catheter was then attached to the subcutaneous port using manufacturers guidelines. The catheter was flushed with a heparin saline mixture prior to placement. Hemostasis was carefully controlled with electrocautery. The port was sutured to the subcutaneous fascia using 2-0 Vicryl suture at two sites. The port was then placed in the subcutaneous pocket. The incision were reapproximated with interrupted subdermal 3-0 vicryl sutures. The skin was reapproximated with 3-0 nylon suture in a interrupted fashion. Steristrips were used for reinforcement of the skin closure at IJ insertion site and a sterile opsite dressings were applied. The patient tolerated the procedure well. Implants Used: Surgical Findings: See operative report Complications Complications: No
--- NOTE | 2025-02-13 08:24 | DCINST_ITS ---
Discharge Instructions Procedure Port-A-Cath Diet Discharge Diet: Light diet - advance as tolerated Activity May shower in (days): 5 (Keep port site clean and dry x5 days. Neck incision okay to get wet after 1 day. Okay to lower shower and upper sponge bath. OR okay to taper off port site with a Ziploc bag to shower) Lifting Restrictions: No lifting > 15 pounds for 3 days with the arm on the side of the port Dressing / Incision Call your doctor if your incision/area has: Continuous Slow Oozing, Sudden Increased Bleeding, Increased Pain/ Swelling, Increased Redness, Foul Smelling Discharge and Swelling at the incision site Call your doctor if you observe: Fever of 101 or Higher Change Dressing in: 2 days (2-3 days- port site; ok to remove neck opsite in 1 day) Follow Up Care Please Follow Up With: Tamiko Figueroa MD When: In 10 days for permanent suture removal?call office for appointment Test Results: Test results from this visit will be discussed in further detail at your follow- up appointment, if applicable. Discharge Plan Admission Attending Provider: Tamiko Figueroa Primary Care Provider: Elly Salceod Instructions Print Language: [place] Discharge Orders/Prescriptions Prescriptions: New oxycodone 5 mg capsule 5 mg PO Q6H PRN (Reason: pain) 3 Days Qty: 5 0RF No Action acetaminophen 500 mg capsule 1,000 mg PO Q6H PRN (Reason: pain) Referrals / Follow Up: Elly Salcedo PA [Primary Care Provider] - Disposition Disposition (needs filled in before D/C Order can be placed): Home, Self Care
--- NOTE | 2025-02-13 08:30 | PCM.POST.ANE ---
Anesthesia: Postop Eval I Current Vital Signs Temperature: 96.9 F Pulse Rate: 85 Blood Pressure: 108/57 Respiratory Rate: 16 Pulse Ox: 98 Oxygen Delivery Method: Room Air Assessment Airway patent: No Spontaneous unlabored respirations: Yes Mental status: Awake and Calm nausea: No Vomiting: No Anesthesia Complication: No Fluid Hydration Crystalloid volume administer (ml): 550 Total IV fluid infused: 550 Progress Note Post-operative progress note: stable moved self to cart Anesthesia document: Postop Eval 1 completed: Yes
--- NOTE | 2025-02-13 08:34 | RAD_ITS ---
PROCEDURE: CHEST 1 VIEW (PORTABLE) 02/13/2025 REASON FOR EXAM: PORT TECHNIQUE: Frontal view of the chest. COMPARISON: None provided. RAD/Chest 1 View (Portable) IMPRESSION: A right subclavian central venous catheter with port is seen, with tip projecti ng near the expected junction of the SVC and right atrium. The cardiomediastinal silhouette is within the normal range. Lungs appear clear of acute disease. No pleural effusion or pneumothorax is noted. No acute osseous change is seen. Reading Location: [address]
== END 2025-02-13 09:50 | disposition home or self-care (01) ==
LOC: SDC 06:06 → AC 06:07
PROVIDERS: Anesthesiology; PCP Physician Assistant Medical; Referring Provider Surgery; Visit Provider Surgery
PROC: (CPT 36561; principal; 2025-02-13 07:15)
DX: Z45.2 Encounter for adjustment and management of vascular access device (principal); C50.912 Malignant neoplasm of unspecified site of left female breast; Z17.31 Human epidermal growth factor receptor 2 positive status
CPT/HCPCS: 36561; 00532; 71045; 77001; 81025; J2405

== ENCOUNTER → 2025-02-14 | Outpatient (CLI) | payer BC, SELFPAY ==
--- NOTE | 2025-02-14 08:31 | NM_ITS ---
PROCEDURE: BONE SCAN WHOLE BODY 02/14/2025 REASON FOR EXAM: BREAST CANCER STAGING TECHNIQUE: Delayed whole-body bone scan after radiopharmaceutical administration RADIOPHARMACEUTICAL: 27.1 mCi Technetium-99m MDP IV COMPARISON: None. FINDINGS: No evidence of osseous metastatic disease. No significant area of abnormal uptake is noted. NM/Bone Scan Whole Body IMPRESSION: No scintigraphic evidence of osseous metastatic disease. Reading Location: [address]
== END | disposition home or self-care (01) ==
LOC: NM 08:28
PROVIDERS: PCP Physician Assistant Medical; Referring Provider Nurse Practitioner Family; Visit Provider Nurse Practitioner Family
DX: C50.912 Malignant neoplasm of unspecified site of left female breast (principal); R59.0 Localized enlarged lymph nodes; Z17.31 Human epidermal growth factor receptor 2 positive status
CPT/HCPCS: 78306; A9503

== ENCOUNTER → 2025-02-21 | Outpatient (CLI) | payer BC, SELFPAY ==
--- OUTSIDE RECORDS SUMMARY | 2025-02-21 06:37 | XMS RPT_ITS | CCD ---
Author Organization [facility] Inform ion Partnership [facility] Care Team Providers Care Social Insurance Analyst Name Role Phone Elton Bauer Unavailable Unavailable Primary Care Provider Unavailras Cleveland MD, Kinjal Isaac Primary Care Provide r KEYSHAWN YBARRA Attending Unava ilable KINJAL CLEVELAND Primary Care Unavail able Chika MATOS, Kinjal Gray Primary Care Provide r KINJAL [place] Primary Care Unavail able CASSANDRA DAVID Attending Unavailable NATALYA SOSA Admitting Unavailable MARIELA SCHULZ Referring Unavailable KINJAL [place] Attending Unavail able KINJAL [place] Primary Care Unavail able Ryan Cochran PA-C Primary Care Provider Ryan Pike Primary Care Provider Ryan Pike Referring Provider [phone] Dr. Tamiko Figueroa MD Attending Provider Dr. Tamiko Figueroa MD Referring Provider Dr. Ara Franklin MD Attending Provider Dr. Ara Franklin MD Referring Provider RYAN COCHRAN Attending Unavailable KINJAL CLEVELAND Primary Care Unavail able RYAN COCHRAN Attending Unavailable KINJAL C[place] Primary Care Unavail able RYAN COCHRAN Attending Unavailable RYAN COCHRAN Primary Care Unavailable DIMAS, RYAN B Referring Unavailable DIMAS, RYAN B Primary Care Unavailable DIMAS, RYAN B Referring Unavailable DIMAS, RYAN B Primary Care Unavailable MARIELA SCHULZ Attending Unavailable KINJAL CLEVELAND Primary Care Unavail able DIMAS, RYAN B Referring Unavailable DIMAS, RYAN B Primary Care Unavailable DIMAS, RYAN B Referring Unavailable DIMAS, RYAN B Primary Care Unavailable Estelle MATOS, Dr. Ro Attending Provider Dr. Michael Pantoja MD Attending Provider Dr. Tamiko Figueroa MD Other Provider Raimundo CHEMICAL TREATMENT PLANT TECHNICIAN-C, Sheila Attending Provider Raimundo CHEMICAL TREATMENT PLANT TECHNICIAN-C, Sheila Referring Provider Jayjay Mccabe Attending Unavailable Dimas, Ryan Primary Care Unavailable Robotham, Tamiko Referring Unavailable Dimas, Ryan Primary Care Unavailable Isckarus, Mansour Attending Unavailable Robotham, Tamiko Attending Unavailable Dimas, Ryan Referring Unavailable Dimas, Ryan Primary Care Unavailable Robotham, Tamiko Referring Unavailable Robotham, Tamiko Attending Unavailable Dimas, Ryan Primary Care Unavailable Raimundo CHEMICAL TREATMENT PLANT TECHNICIAN, Sheila Referring Unavailable Raimundo CHEMICAL TREATMENT PLANT TECHNICIAN, Sheila Attending Unavailable Baggs, Ryan Primary Care Unavailable Baggs, Ryan Primary Care Unavailable Isckarus, Mansour Referring Unavailable Isckarus, Mansour Attending Unavailable Dimas, Ryan Primary Care Unavailable Isckarus, Mansour Referring Unavailable Isckarus, Mansour Attending Unavailable Dimas, Ryan Primary Care Unavailable Robotham, Tamiko Attending Unavailable Robotham, Tamiko Referring Unavailable Robotham, Tamiko Attending Unavailable Robotham, Tamiko Referring Unavailable Baggs, Ryan Primary Care Unavailable Michael Pantoja Attending Unavailable Baggs, Ryan Primary Care Unavailable Dimas, Ryan Referring Unavailable Robotham, Tamiko Attending Unavailable Robotham, Tamiko Consulting Unavailable Robotham, Tamiko Referring Unavailable Baggs, Ryan Primary Care Unavailable NO PRIMARY CARE, Primary Care Unavailable ROBOTHAM, TAMIKO L Referring Unavailable UZMA MARCANO Attending Unavailable Allergies Allergy Classification Reported Allergen(s) Allergy Type Date of Onset Reaction(s) Facility (5 sources) kyrgyz elm pollen extract Propensity to adverse reactions to drug 12-23-2016 Itching [facility] (5 sources) red maple pollen extract Propensity to adverse reactions to drug 12-23-2016 Itching [facility] Medications Current Medications Medication Drug Class(es) Dates Sig (Normalized) Sig (Original) acetaminophen 500 mg oral capsule (11 sources) Start: 02-12-2025 take 2 capsules by mouth every six hours as needed for pain Acetaminophen 500 mg capsule Active 1000 mg PO EVERY 6 HOURS as needed for pain February 12, 2025 12:00am Start: 01-23-2025 take 2 tablets by mo uth every four to six hours as needed [...] hours for wheezing albuterol 90 mcg/[facility]er Inhale 2 puffs every [...] total) by mouth daily . 30 tablet 09/10/2021 09/10/2022 Active Start: 07-04-2021 End: 07-04-2022 take 1 tablet by mouth once daily escitalopram oxalate (LEXAPRO) 10 MG tablet Indications: Post depression Take 1 (one) tablet (10 mg total) by mouth daily . 30 tablet 07/04/2021 08/26/2021 Discontinued (Patient's Request) famotidine 40 mg oral tablet (1 source) Histamine-2 Receptor Antagonist Start: 12-23-2016 End: 12-23-2017 take 1 tablet by mouth at bedtime famotidine (PEPCID) 40 MG tablet Indications: Gastritis without bleeding, unspecified chronicity, unspecified gastritis type Take 1 tablet (40 mg total) by mouth at bedtime. 30 tablet 12/23/2016 12/23/2017 Active ferrous sulfate 325 mg [...] ondansetron (ZOFRAN-ODT) disintegrating tablet 4 mg oxyCODONE hydrochloride 5 mg oral capsule (4 sources) Opioid Agonist Start: 02-13-2025 take 1 capsule by mouth every six hours as needed for pain Oxycodone 5 mg capsule Active 5 mg PO EVERY 6 HOURS as needed for pain 5 3 0 February 13, 2025 Postoperative pain Other acute postprocedural pain Start: 01-17-2021 oxyCODONE (MINGO ICODONE) immediate release tablet 5 mg oxymetazoline hydrochloride [...] mL IV (1 source) Start: 05-22-2024 End: 05-22-2024 500 mg, intravenous, at 250 mL/hr, Administer [...] at mealtime naproxen (EC NAPROSYN) 375 MG [facility] Indications: Cervical myofascial pain syndrome Take 1 [...] End: 05-22-2024 20 mEq, oral, Once, On 05/22/24 at 2325, For 1 dose, Best given [...] 4 lesions total Deficiency and other anemia (14 sources) Anemia; Translations: [Anemia, unspecified] 01-29-2025 Episodic [...] Food poisoning; Translations: [Food poisoning] Episodic Lymphadenitis (16 sources) Axillary lymphadenopathy; Translations: [Localized enlarged lymph nodes] Onset: 01-29-2025 01-29-2025 Episodic Malaise and fatigue (8 sources) Fatigue; Translations: [Other fatigue] 01-23-2025 Episodic Mood disorders (4 sources) Recurrent major depressive episodes, mild ; [...] outer quadrant] Onset: 01-04-2025 01-04-2025 Episodic Other aftercare (6 sources) Surgical follow-up; Translations: [Encounter for breast reconstruction following mastectomy] 02-10-2025 Episodic Other complications of (4 sources) depression; [...] Functional diarrhea; Translations: [Functional diarrhea] Episodic Other nervous system disorders (1 source) Other acute postprocedural pain; Translations: [Other acute postprocedural pain] Onset: 02-13-2025 Episodic Other non-traumatic joint disorders (1 source) [...] conditions (not mental disorders or infectious disease) (6 sources) Mammography abnormal; Translations: [Other abnormal and inconclusive findings on diagnostic imaging of breast] Onset: 01-12-2025 01-12-2025 Episodic Other upper respiratory disease (10 sources) Allergic rhinitis; Translations: [Allergic rhinitis, unspecified] Onset: 12-23-2016 12-23-2016 Chronic Unclassified (20 sources) Infiltrating ductal carcinoma of breast; Translations: [C50.919 - Malignant neoplasm of unspecified site of unspecified female breast] Unclassified (1 source) Obesity, class 1; Translations: [Obesity, class 1] Onset: 11-15-2024 Unclassified (2 sources) 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 [...] Test Name Value Interpretation Reference Range Facility Bone Scan Whole Bodyon 02-14 Bone Scan Whole Body [facility] Imaging Services [address], [place] [id number] Bone Scan Whole Body MR#: [id number] Acct: [id number] Name: SHAUNA RAINEY Rep #: [id number] : 1995 F 29 From: Figueroa Hernández PCP: YENNI Hartman Status: REG CLI Study: Bone Scan Whole Body Date of Exam: 02/14/25 Exam# [id number] Ordering Dr: Sheila Eubanks NP CHEMICAL TREATMENT PLANT TECHNICIAN -C PROCEDURE: BONE SCAN WHOLE BODY 02/14/2025 REASON FOR EXAM: BREAST CANCER STAGING TECHNIQUE: Delayed whole-body bone scan after radiopharmaceutical administration RADIOPHARMACEUTICAL: 27.1 mCi Technetium-99m MDP IV COMPARISON: None. FINDINGS: No evidence of osseous metastatic disease. No significant area of abnormal uptake is noted. NM/Bone Scan Whole Body IMPRESSION: No scintigraphic evidence of osseous metastatic disease. Reading Location: [address] CC: CHEMICAL TREATMENT PLANT TECHNICIAN-Gurdeep Eubanks; YENNI Hartman Meteorological Aide: Signed Normal [facility] Chest 1 View (Portable)on Chest 1 View (Portable) [facility] Imaging Services [address], [place] [address] Chest 1 View (Portable) MR#: [id number] Acct: [id number] Name: SHAUNA RAINEY Rep #: [id number] : 1995 F 29 From: Figueroa Hernández PCP: YENNI Hartman Status: REG SDC Study: Chest 1 View (Portable) Date of Exam: 02/13/25 Exam# [id number] Ordering Dr: Tamiko Figueroa MD PROCEDURE: CHEST 1 VIEW (PORTABLE) 02/13/2025 REASON FOR EXAM: PORT TECHNIQUE: Frontal view of the chest. COMPARISON: None provided. RAD/Chest 1 View (Portable) IMPRESSION: A right subclavian central venous catheter with port is seen, with tip projecting near the expected junction of the SVC and right atrium. The cardiomediastinal silhouette is within the normal range. Lungs appear clear of acute disease. No pleural effusion or pneumothorax is noted. No acute osseous change is seen. Reading Location: [address] CC: Dr. Tamiko Figueroa MD; YENNI Hartman Meteorological Aide: Signed Normal [facility] Discharge Instructionon Discharge Instruction [facility] Medical Records Department [address] [place] [address] Instructions for Home/Discharge Instructions 02/13/25823 MR#: [id number] Acct: [id number] Name: SHAUNA RAINEY Rep #: [id number] : 1995 29 From: Tamiko Figueroa MD PCP: YENNI Hartman Status:REG [facility] Discharge Instructions Procedure Port-A-Cath Diet Discharge Diet: Light diet - advance as tolerated Activity May shower in (days): 5 (Keep port site clean and dry x5 days. Neck incision okay to get wet after 1 day. Okay to lower shower and upper sponge bath. OR okay to taper off port site with a Ziploc bag to shower) Lifting Restrictions: No lifting > 15 pounds for 3 days with the arm on the side of the port Dressing / Incision Call your doctor if your incision/area has: Continuous Slow Oozing, Sudden Increased Bleeding, Increased Pain/ Swelling, Increased Redness, Foul Smelling Discharge and Swelling at the incision site Call your doctor if you observe: Fever of 101 or Higher Change Dressing in: 2 days (2-3 days- port site; ok to remove neck opsite in 1 day) Follow Up Care Please Follow Up With: Tamiko Figueroa MD When: In 10 days for permanent suture removal???call office for appointment Test Results: Test results from this visit will be discussed in further detail at your follow-up appointment, if applicable. Discharge Plan Admission Attending Provider: Tamiko Figueroa Primary Care Provider: Ryan Cochran Instructions Print Language: Kazakh Discharge Orders/Prescriptions Prescriptions: New oxycodone 5 mg capsule 5 mg PO Q6H PRN (Reason: pain) 3 Days Qty: 5 0RF No Action acetaminophen 500 mg capsule 1,000 mg PO Q6H PRN (Reason: pain) Referrals / Follow Up: Ryan Cochran PA [Primary Care Provider] - Disposition Disposition (needs filled in before D/C Order can be placed): Home, Self Care 02/13/25824 Tamiko Figueroa MD CC: YENNI Hartman Signed [facility] MR/POSTOP.ANEon 02-13-2025 MR/POSTOP.[facility] Medical Records Department [address] [place] [address] Anesthesia Postop Eval I 02/13/25829 MR#: [id number] Acct: [id number] Name: SHAUNA RAINEY Rep #: [id number] : 1995 29 From: Bonnie Ray CRNA PCP: YENNI Hartman Status:REG [facility] Y Race: C Location: [place] [address] Anesthesia: Postop Eval I Current Vital Signs Temperature: 96.9 F Pulse Rate: 85 Blood Pressure: 108/57 Respiratory Rate: 16 Pulse Ox: 98 Oxygen Delivery Method: Room Air Assessment Airway patent: No Spontaneous unlabored respirations: Yes Mental status: Awake and Calm nausea: No Vomiting: No Anesthesia Complication: No Fluid Hydration Crystalloid volume administer (ml): 550 Total IV fluid infused: 550 Progress Note Post-operative progress note: stable moved self to cart Anesthesia document: Postop Eval 1 completed: Yes 02/13/25830 Date Bonnie Ray [employer] MARK[employer] DEALER Cosigner Signature: Date CC: Signed [facility] Operative Reporton Operative Report [facility] Medical Records Department [address] [place] [address] Operative Report 02/13/25 0822 MR#: [id number] Acct: [id number] Name: SHAUNA RAINEY Rep #: [id number] : 1995 29 From: Tamiko Figueroa MD PCP: YENNI Hartman Status:[facility] Location: [facility] Operative Report (Standard) Operative Information Date of Procedure: 02/13/25 Pre-Operative Diagnosis: Z45.2, left breast cancer Post-Operative Diagnosis: Same Surgery/Procedure Performed: Placement of right IJ Port-A-Cath Use of ultrasound Use of fluoroscopy acoustics teacher: No Type of Anesthesia: Local MAC RN Documented Start/Stop Times: Operation Date: 02/13/25 07:30 Case Time Into Pre-Op 02/13/25 06:10 Out of Pre-Op 02/13/25 07:34 Anesthesia Start 02/13/25 07:39 Into Room 02/13/25 07:39 Procedure Start 02/13/25 07:52 Procedure End 02/13/25 08:21 Anesthesia End 02/13/25 08:23 Out of Room 02/13/25 08:23 Into Recovery 02/13/25 08:26 Into Phase II Recovery 02/13/25 08:47 Out of Recovery 02/13/25 08:47 Out of Phase II 02/13/25 09:50 Procedure Start Time: 07:52 Procedure Stop Time: 08:21 Select all DRAINS/GRAFTS/IMPLANTS that apply: Implanted device Implanted device details: Bard PowerPort isp M.R.I. 6Fr Lot Lot [id number] Special Medications: Ancef 2 g IV x 1 Estimated Blood Loss: 5 cc Specimen collected: No Description of surgery: After informed consent was given, the patient was brought to the operating room and placed in the supine position. Appropriate time out protocol was followed. Patient was then given IV conscious sedation for anesthesia. The patient's right upper chest and neck were then prepped with a surgical skin preparation and sterile surgical drapes were placed. After proper landmarks were ascertained, the skin at the upper right chest area was then infiltrated with 1:1 mixture of 1% lidocaine with epinephrine and 0.5% marcaine. A needle trocar was then inserted into the right internal jugular vein with ultrasound guidance- multiple vessels were viewed with u/s and the right IJ was chosen-- and there was good aspiration of venous blood. A wire was then threaded into the needle trocar and this was visualized under fluoroscopy to ensure that the wire was in the superior vena cava. Once this was done, then the needle trocar was removed. A small skin pantera was made with an 11 blade knife at the wire entrance site. The dilator with the introducer sheath attached was then placed over the wire into the right internal jugular vein via the Seldinger technique and this was visualized under fluoroscopy. The dilator and sheath were in proper position as visualized by fluoroscopy. A subcutaneous pocket was then created caudad to the catheter insertion site. A transverse skin incision was made after the skin and subcutaneous tissues were infiltrated with local anesthetic. Blunt dissection was then used to create a space large enough for placement of the subcutaneous port. The catheter was then tunneled into the subcutaneous pocket. The wire and dilator were then removed. The catheter was then threaded into the introducer sheath and was positioned with its tip at the junction of the superior vena cava and the right atrium as visualized under fluoroscopy. The excess catheter was transected. The catheter was then attached to the subcutaneous port using manufacturers guidelines. The catheter was flushed with a heparin saline mixture prior to placement. Hemostasis was carefully controlled with electrocautery. The port was sutured to the subcutaneous fascia using 2-0 Vicryl suture at two sites. The port was then placed in the subcutaneous pocket. The incision were reapproximated with interrupted subdermal 3-0 vicryl sutures. The skin was reapproximated with 3-0 nylon suture in a interrupted fashion. Steristrips were used for reinforcement of the skin closure at IJ insertion site and a sterile opsite dressings were applied. The patient tolerated the procedure well. Implants Used: Surgical Findings: See operative report Complications Complications: No 02/13/25 1147 Cosigner Signature (if applicable): CC: Dr. Tamiko Figueroa MD; YENNI Hartman Signed Normal [facility] ,Urineon 02-13-2025 Beta HCG ( test) Ql (U) Negative [facility] Comment on above: Result Comment: Very dilute urine specimens, as indicated by a low specific gravity, may not contain loss control representative levels of hCG. If is still suspected, a first morning urine specimen should be collected 48 hours later and tested. Performed By: #### L [phone] ####[facility] [id number] [place], [address] Urine testOrdered By: Sunil Anderson on 02-13-2025 HCG ( test) Ql (U) Negative [facility] Comment on above: Very dilute urine sp ecimens, as indicated by a low specificgravity, may not contain loss control representative levels of hCG. If is still suspected, a first morning urinespecimen should be collected 48 hours later and tested. Echocardiogram study reportO rdered By: Jayjay Mccabe on 02-08-2025 Study report [facility] Cardiovascular Services [address] [place] [address] ONC Echo Complete 02/08/25 1318 MR#: [id number] Acct: [id number] Name: SHAUNA RAINEY Rep #:[id number] : 1995 29 From: Jayjay Hernández Attending Dr: Dr. Ara Franklin MD Status: REG CLI Ordering Dr: Ara Franklin MD Date: 02/08/25 Location: [facility] Sex: F C Admitted: Reason For Study Reason For Study: PRIOR TO CHEMO Procedure This was a 2D Doppler, Color Flow transthoracic echocardiogram. Exam performed in department. Left Ventricle Normal LV size. Left ventricular systolic function is normal. The left ventricular ejection fraction is 60 %. No regional wall motion abnormalities noted. Right Ventricle Normal RV size. Normal systolic function. Atria Normal left atrium. Normal right atrium. Mitral Valve Normal mitral valve. Tricuspid Valve Normal tricuspid valve. Aortic Valve Trisinus/trileaflet aortic valve. Pulmonic Valve Normal pulmonic valve. Great Vessels Normal aortic root. The pulmonary artery is normal size. Inferior vena cava collapse with respiration. Pericardium/Pleural No pericardial effusion. MMode/2D Measurements & Calculations LVIDd: 4.5 cm IVSd: 0.69 cm LAV(MOD-sp4): 31.2 ml LVIDs: 2.9 cm LVPWd: 1.1 cm RVDd: 2.6 cm FS: 36.7 % LVAd ap4: 24.6 cm2 SV(MOD-sp4): 44.7 ml SV(sp4-el): 46.6 ml LVLd ap4: 7.2 cm SI(MOD-sp4): 26.3 ml/m2 EDV(MOD-sp4): 71.1 ml EDV(sp4-el): 72.0 ml LVAs ap4: 12.8 cm2 LVLs ap4: 5.5 cm ESV(MOD-sp4): 26.4 ml ESV(sp4-el): 25.5 ml EF(MOD-sp4): 62.9 % EF(sp4-el): 64.6 % LA A4 area: 15.1 cm2 LA dimension(2D): 3.1 cm RA A4 area: 8.2 cm2 Time Measurements MV dec time: 0.15 sec Doppler Measurements & Calculations MV E max zachary: 96.4 cm/sec Lat Peak E' Zachary: 23.2 cm/sec Med Peak E' Zachary: 14.1 cm/sec MV A max zachary: 50.6 cm/sec E/E' lat: 4.2 E/E' med: 6.8 MV E/A: 1.9 __ MV V2 max: 109.5 cm/sec Ao V2 max: 138.4 cm/sec MV max P.8 mmHg MV dec slope: 662.5 cm/sec2 Ao max P.7 mmHg MV V2 mean: 52.2 cm/sec Ao V2 mean: 100.6 cm/sec MV mean P.4 mmHg Ao mean P.5 mmHg MV V2 VTI: 33.4 cm Ao V2 VTI: 30.0 cm AV (velocity ratio): 0.98 ___ LV V1 max: 134.3 cm/sec PA V2 max: 103.2 cm/sec LV V1 max P.2 mmHg PA V2 mean: 69.4 cm/sec LV V1 mean P.0 mmHg LV V1 mean: 93.1 cm/sec LV V1 VTI: 29.5 cm ECHO/ONC Echo Complete Interpretation Summary Normal LV size. Left ventricular systolic function is normal. The left ventricular ejection fraction is 60 %. The global longitudinal strain is normal. The global longitudinal strain = -22.3% (normal). Ordering Physician: Ara Franklin Referring Physician: Ara Franklin Performed By: Sonal Payan and Student 02/08/25 1445 Date _ Jayjay Mccabe MD CC: Dr. Ara Franklin MD; YENNI Hartman ~ Date Dictated: 02/08/251317 Date Transcribed: 02/08/25 1445 Meteorological Aide: Signed [facility] Work Phone: ONC Echo Completeon 02-09-20 ONC Echo Complete [facility] Cardiovascular Services [address] [place] [address] ONC Echo Complete 02/08/258 MR#: [id number] Acct: [id number] Name: SHAUNA RAINEY Rep #: [id number] : 1995 From: Jayjay Mccabe MD Attending Dr: Dr. Ara Franklin MD Status: REG CLI Ordering Dr: Ara Franklin MD Date: 02/08/25 Location: [facility] Sex: F C Admitted: Reason For Study Reason For Study: PRIOR TO CHEMO Procedure This was a 2D Doppler, Color Flow transthoracic echocardiogram. Exam performed in department. Left Ventricle Normal LV size. Left ventricular systolic function is normal. The left ventricular ejection fraction is 60 %. No regional wall motion abnormalities noted. Right Ventricle Normal RV size. Normal systolic function. Atria Normal left atrium. Normal right atrium. Mitral Valve Normal mitral valve. Tricuspid Valve Normal tricuspid valve. Aortic Valve Trisinus/trileaflet aortic valve. Pulmonic Valve Normal pulmonic valve. Great Vessels Normal aortic root. The pulmonary artery is normal size. Inferior vena cava collapse with respiration. Pericardium/Pleural No pericardial effusion. MMode/2D Measurements Calculations LVIDd: 4.5 cm IVSd: 0.69 cm LAV(MOD-sp4): 31.2 ml LVIDs: 2.9 cm LVPWd: 1.1 cm RVDd: 2.6 cm FS: 36.7 % LVAd ap4: 24.6 cm2 SV(MOD-sp4): 44.7 ml SV(sp4-el): 46.6 ml LVLd ap4: 7.2 cm SI(MOD-sp4): 26.3 ml/m2 EDV(MOD-sp4): 71.1 ml EDV(sp4-el): 72.0 ml LVAs ap4: 12.8 cm2 LVLs ap4: 5.5 cm ESV(MOD-sp4): 26.4 ml ESV(sp4-el): 25.5 ml EF(MOD-sp4): 62.9 % EF(sp4-el): 64.6 % LA A4 area: 15.1 cm2 LA dimension(2D): 3.1 cm RA A4 area: 8.2 cm2 Time Measurements MV dec time: 0.15 sec Doppler Measurements Calculations MV E max zachary: 96.4 cm/sec Lat Peak E' Zachary: 23.2 cm/sec Med Peak E' Zachary: 14.1 cm/sec MV A max zachary: 50.6 cm/sec E/E' lat: 4.2 E/E' med: 6.8 MV E/A: 1.9 MV V2 max: 109.5 cm/sec Ao V2 max: 138.4 cm/sec MV max P.8 mmHg MV dec slope: 662.5 cm/sec2 Ao max P.7 mmHg MV V2 mean: 52.2 cm/sec Ao V2 mean: 100.6 cm/sec MV mean P.4 mmHg Ao mean P.5 mmHg MV V2 VTI: 33.4 cm Ao V2 VTI: 30.0 cm AV (velocity ratio): 0.98 LV V1 max: 134.3 cm/sec PA V2 max: 103.2 cm/sec LV V1 max P.2 mmHg PA V2 mean: 69.4 cm/sec LV V1 mean P.0 mmHg LV V1 mean: 93.1 cm/sec LV V1 VTI: 29.5 cm ECHO/ONC Echo Complete Interpretation Summary Normal LV size. Left ventricular systolic function is normal. The left ventricular ejection fraction is 60 %. The global longitudinal strain is normal. The global longitudinal strain = -22.3 % (normal). Ordering Physician: Ara Franklin Referring Physician: Ara Franklin Performed By: Sonal Payan and Student 02/08/25 7495 Date Jayjay Mccabe MD CC: Dr. Ara Franklin MD; YENNI Hartman Date Dictated: 02/08/25 1318 Date Transcribed: 02/08/25 1445 Meteorological Aide: Signed Normal [facility] Plastic Surgery Visit Report on 02-08-2025 Plastic Surgery Visit Report [facility] Plastic Reconstructive Surgery [address], [address] [place] [address] OFFICE VISIT Date of Service: 02/08/25 MR#: [id number] Acct: [id number] Name: SHAUNA RAINEY Rep #: [id number] : 1995 Provider: Dr. Michael Pantoja MD Age/Sex: 29/F Location: [facility] Status: Signed Intake Vital Signs 01/23/25 09:59 01/29/25 15:21 02/08/25 14:22 Height 5 ft 5 ft Weight: 159 lb BP 92/61 Blood Pressure Location Rt brachial Position Sitting Respiration 18 Pulse 64 Pulse Source Monitor Pulse Oximetry (%) 98 Oxygen Delivery Method room air Intake Visit Reasons: BREAST RECONSTRUCTION Chief Complaint: Breast reconstructruction Is patient in pain?: No Allergies No Known Allergies Allergy (Verified 02/08/25 14:21) Medications ???Medication ???Instructions ???Recorded ???Confirmed ???Type acetaminophen 325 mg tablet 650 mg PO Q4-6H PRN 01/23/2502/08 History (Tylenol) PFSH Medical History Anemia Axillary lymphadenopathy Surgical History delivery delivered Family History Other No pertinent family history Social History Smoking Status: Never smoker alcohol intake: never HPI BREAST RECONSTRUCTION Details: Shauna Rainey is a delightful 29-year-old female presenting for breast reconstruction discussion after a breast cancer was discovered on the left breast in the setting of left nipple/areola inversion of 2 year's duration. Patient subsequently had a mammogram to workup the nipple/areolar inversion and it demonstrated for spiculated masses in the left breast with no breast masses on the right. 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 There were no abnormal or large left axillary lymph nodes. Patient had menses at age of 13m and her first child at the age of 21. She has 3 children and had them via sections. She breast-fed all of them. Patient currently sees Dr. Betancourt for oncology and is undergoing a bone scan and CT scan (PET scan denied by insurance). She denies any family history of breast cancer and has not undergone genetic testing yet. The patient denies any history of breast surgery or other significant health problems. She does not smoke or use nicotine products. No personal or family history of bleeding or clotting problems. Attestation: Documentation on this patient encounter was supported using ambient scribe technology/ voice AI technology. The patient consented to recording for the purpose of documenting the encounter. Provider reviewed content of the generated note prior to signature. Summary Side of Diagnosis: Left Side of Reconstruction: Likely bilateral Prior Breast Surgery: Only biopsies Prior Abdominal Surgery: Only sections Hx Radiation Therapy: Unclear if this will be part of her cancer care ??? Hx Chemotherapy: She will need neoadjuvant chemotherapy per oncology Bra Size: B or C Desired Bra Size: Full C (wants to be slightly bigger) ROS Details - Breast: Reports inverted left NAC for 1-2 years, denies pain or discharge. - Lymphatic: Denies palpable lumps or bumps in the armpit. - Reproductive: Reports difficulty conceiving for 3 years - General: Denies smoking or use of nicotine products. General General: Yes good health; No fatigue, fever(s) or weight loss HENMT HENMT: No rhinitis, sore throat/mouth sore, nasal congestion, contacts or glaucoma Endo Endocrine: No thyroid disease, polydipsia, heat intolerance, cold intolerance, hepatitis or excessive urine Skin Skin: No Bleeding, bruising, changing moles or suspicious lesion Musc Musculoskeletal: No joint pain, joint stiffness, muscle weakness, back pain, osteoarthritis or Muscle aches/ myalgia Neuro Neurological: Yes headache(s), No lightheadedness and No numbness Cardio Cardiovascular: No chest pain, pacemaker, fatigue or shortness of breat with exertion Psych Psychiatric: No depression, claustrophobia or anxiety Resp Respiratory: No spitting up, shortness of breath, sleep apnea, asthma, emphysema, TB, Cough or Smoker Gastro Gastrointestinal: No diarrhea, constipation, blood in stool, nausea, vomiting or abdominal bloating Augustine Hematologic: No anemia, No bleeding and No abnormal bleeding Genitourinary: No urinary frequency, blood in urine or incontinence Exam Details 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 Normal [facility] Breast Limited Unilateralon 01-31-2025 Breast Limited Unilateral [facility] Imaging Services [address], [place] [id number] Breast Limited Unilateral MR#: [id number] Acct: [id number] Name: SHAUAN RAINEY Rep #: [id number] : 1995 F 29 From: Renetta Garcia MD PCP: YENNI Hartman Status: REG CLI Study: Breast Limited Unilateral Date of Exam: Exam# [id number] Ordering Dr: Tamiko Figueroa MD PROCEDURE: BREAST LIMITED UNILATERAL 01/31/2025 REASON FOR EXAM: F, Age 29 y/o , LEFT BREAST CANCER, ABN BREAST MRI COMPARISON: MRI 01/25/2025. TECHNIQUE: Targeted left axillary/breast ultrasound was performed. FINDINGS: Follow-up examination performed for the left axillary lymph node visualized on the MRI of 01/25/2025. On the present examination, there are 3 architecturally normal-appearing left axillary lymph nodes with preserved fatty margarita and normal cortical thickness. The largest lymph node measures 1.7 x 1.0 x 0.9 cm with cortical thickness of 0.2 cm. The other lymph nodes measure 1.7 x 0.9 x 0.7 cm with cortical thickness of 0.2 cm and 0.6 x 0.6 x 0.4 cm with cortical thickness of 0.1 cm. US/Breast Limited Unilateral IMPRESSION: Architecturally normal-appearing left axillary lymph nodes. BI-RADS 2: BENIGN. RECOMMENDATION: OTHERSurgical/oncologic management for the biopsy-proven left breast malignancy. Reading Location: [id number] CC: Dr. Tamiko Figueroa MD; YENNI Hartman Meteorological Aide: Signed Normal [facility] Absolute lymphocyte countOrd ered By: Ara Franklin on 01-29-2025 Lymphocytes Auto (Unsp spec) [#/Vol] 2.30 10*3/uL 0.83-4.51 [facility] Absolute neutrophil countOrd ered By: Ara Franklin on 01-29-2025 Neutrophils (Bld) [#/Vol] 3.6 10*3/uL 2.0-7.7 [facility] Anion gap in Serum or Plasma Ordered By: [facility] on 01-29-2025 Anion gap [Moles/Vol] 12 mmol/L 5-15 [facility] Automated lymphocyte count a s percentage of total leukocytesOrdered By: [facility] Franklin on 01-29-2025 Lymphocytes/100 WBC Auto (Unsp spec) 33.7 % 19-41 [facility] BUN/creatinine ratioOrdered By: [facility] Rigoberto on 01-29-2025 Urea nitrogen/Creatinine [Mass ratio] 25.6 mg/mg High 10-20 [facility] Basophil percentageOrdered B y: Ara Franklin on 01-29-2025 Basophils/100 WBC (Bld) 0.9 % 0-1 [facility] Bilirubin, totalOrdered By: [facility] on 01-29-2025 Bilirubin [Mass/Vol] 0.36 mg/dL 0.00-1.30 [facility] CBC W/Diff, Automatedon 01-08 Absolute Lymph 2.30 X10 3/uL Normal 0.83-4.51 [facility] Comment on above: Performed By: #### L 503.0106, L500.4050, L503.6550, L100.0100, L100.9950, L503.6030 #### [facility] [address] [place], [place], [id number] Absolute Neut 3.6 X10 3/uL Normal 2.0-7.7 [facility] Comment on above: Performed By: #### L 503.0106, L500.4050, L503.6550, L100.0100, L100.9950, L503.6030 #### [facility] [address] [place], [address] Basophils/100 WBC (Bld) 0.9 % Normal 0-1 [facility] Comment on above: Performed By: #### L 503.0106, L500.4050, L503.6550, L100.0100, L100.9950, L503.6030 #### [facility] [address] [place], [address] Eosinophils/100 WBC (Bld) 4.7 % Normal 0-5 [facility] Comment on above: Performed By: #### L 503.0106, L500.4050, L503.6550, L100.0100, L100.9950, L503.6030 #### [facility] [address] [place], [address] Erythrocyte distribution width (RBC) [Ratio] 12.9 % Normal 11.6-14.6 [facility] Comment on above: Performed By: #### L 503.0106, L500.4050, L503.6550, L100.0100, L100.9950, L503.6030 #### [facility] [address] [place], [address] Hematocrit (Bld) [Volume fraction] 39.7 % Normal 37-47 [facility] Comment on above: Performed By: #### L 503.0106, L500.4050, L503.6550, L100.0100, L100.9950, L503.6030 #### [facility] [address] [place], [address] Hemoglobin (Bld) [Mass/Vol] 13.2 g/dL Normal 12.0-15.0 [facility] Comment on above: Performed By: #### L 503.0106, L500.4050, L503.6550, L100.0100, L100.9950, L503.6030 #### [facility] [address] [place], [address] IG% 0.300 Normal 0.0-0.9 [facility] Comment on above: Result Comment: IG% - Immature Granulocytes (promyelocytes, myelocytes and metamyelocytes) > 1% indicates that a LEFT SHIFT is Present. Performed By: #### L 503.0106, L500.4050, L503.6550, L100.0100, L100.9950, L503.6030 #### [facility] [address] [place], [address] Lymphocytes/100 WBC (Bld) 33.7 % Normal 19-41 [facility] Comment on above: Performed By: #### L 503.0106, L500.4050, L503.6550, L100.0100, L100.9950, L503.6030 #### [facility] [address], [address] MCH (RBC) [Entitic mass] 29.7 pg Normal 27.0-32.0 [facility] Comment on above: Performed By: #### L 503.0106, L500.4050, L503.6550, L100.0100, L100.9950, L503.6030 #### [facility] [address] [place], [address] MCHC (RBC) [Mass/Vol] 33.2 g/dL Normal 32-36 [facility] Comment on above: Performed By: #### L 503.0106, L500.4050, L503.6550, L100.0100, L100.9950, L503.6030 #### [facility] [address] [place], [address] MCV (RBC) [Entitic vol] 89.2 fL Normal 81-99 [facility] Comment on above: Performed By: #### L 503.0106, L500.4050, L503.6550, L100.0100, L100.9950, L503.6030 #### [facility] [address] [place], [address] Monocytes/100 WBC (Bld) 7.8 % Normal 0-10 [facility] Comment on above: Performed By: #### L 503.0106, L500.4050, L503.6550, L100.0100, L100.9950, L503.6030 #### [facility] [address] [place], [address] Neutrophils/100 WBC (Bld) 52.6 % Normal 47-70 [facility] Comment on above: Performed By: #### L 503.0106, L500.4050, L503.6550, L100.0100, L100.9950, L503.6030 #### [facility] [address] [place], [address] Nucleated RBC (Bld) [#/Vol] 0 10*3/uL Normal 0-5 [facility] Comment on above: Performed By: #### L 503.0106, L500.4050, L503.6550, L100.0100, L100.9950, L503.6030 #### [facility] [address] [place], [address] Platelet mean volume (Bld) [Entitic vol] 9.1 fL Normal 6.2-12.0 [facility] Comment on above: Performed By: #### L 503.0106, L500.4050, L503.6550, L100.0100, L100.9950, L503.6030 #### [facility] [address] [place], [address] Platelets (Bld) [#/Vol] 264 10*3/uL Normal 150-450 [facility] Comment on above: Performed By: #### L 503.0106, L500.4050, L503.6550, L100.0100, L100.9950, L503.6030 #### [facility] [address] [place], [address] RBC (Bld) [#/Vol] 4.45 10*6/uL Normal 4.2-5.4 [facility] Comment on above: Performed By: #### L 503.0106, L500.4050, L503.6550, L100.0100, L100.9950, L503.6030 #### [facility] [address] [place], [address] RDW SD 42.3 fl Normal 35.1-43.9 [facility] Comment on above: Performed By: #### L 503.0106, L500.4050, L503.6550, L100.0100, L100.9950, L503.6030 #### [facility] [address] [place], [address] WBC (Bld) [#/Vol] 6.8 10*3/uL Normal 4.4-11.0 [facility] Comment on above: Performed By: #### L 503.0106, L500.4050, L503.6550, L100.0100, L100.9950, L503.6030 #### [facility] [address] [place], [address] Carbon dioxide, total [Moles /volume] in Central venous bloodOrdered By: Ara Franklin on 01-29-2025 CO2 [Moles/Vol] 24.0 mmol/L 21.0-32.0 [facility] Chloride assayOrdered By: Huong Franklin on 01-29-2025 Chloride [Moles/Vol] 103 mmol/L 98-108 [facility] Comprehensive Metabolic Prof ilon 01-29-2025 Albumin [Mass/Vol] 4.3 g/dL Normal 3.5-5.0 [facility] Comment on above: Performed By: #### L 503.0106, L500.4050, L503.6550, L100.0100, L100.9950, L503.6030 #### [facility] [address] [place], [address] Albumin/Globulin [Mass ratio] 1.5 {ratio} Normal 0.9-2.4 [facility] Comment on above: Performed By: #### L 503.0106, L500.4050, L503.6550, L100.0100, L100.9950, L503.6030 #### [facility] [address] [place], [address] ALK PHOS 68 U/L Normal 35-104 [facility] Comment on above: Performed By: #### L 503.0106, L500.4050, L503.6550, L100.0100, L100.9950, L503.6030 #### [facility] [address] [place], [address] ALT [Catalytic activity/Vol] 24 U/L Normal <=34 [facility] Comment on above: Performed By: #### L 503.0106, L500.4050, L503.6550, L100.0100, L100.9950, L503.6030 #### [facility] [address] [place], [address] AST [Catalytic activity/Vol] 19 U/L Normal <=31 [facility] Comment on above: Performed By: #### L 503.0106, L500.4050, L503.6550, L100.0100, L100.9950, L503.6030 #### [facility] [address] [place], [address] Bilirubin [Mass/Vol] 0.36 mg/dL Normal 0.00-1.30 [facility] Comment on above: Performed By: #### L 503.0106, L500.4050, L503.6550, L100.0100, L100.9950, L503.6030 #### [facility] [address], [address] BUN/CRE 25.6 RATIO High 10-20 [facility] Comment on above: Performed By: #### L 503.0106, L500.4050, L503.6550, L100.0100, L100.9950, L503.6030 #### [facility] [address], [address] Calcium [Mass/Vol] 9.3 mg/dL Normal 7.6-11.0 [facility] Comment on above: Performed By: #### L 503.0106, L500.4050, L503.6550, L100.0100, L100.9950, L503.6030 #### [facility] [address] [place], [address] Chloride [Moles/Vol] 103 mmol/L Normal 98-108 [facility] Comment on above: Performed By: #### L 503.0106, L500.4050, L503.6550, L100.0100, L100.9950, L503.6030 #### [facility] [address] [place], [address] CO2 [Moles/Vol] 24.0 mmol/L Normal 21.0-32.0 [facility] Comment on above: Performed By: #### L 503.0106, L500.4050, L503.6550, L100.0100, L100.9950, L503.6030 #### [facility] [address] [place], [address] Creatinine [Mass/Vol] 0.61 mg/dL Low 0.70-1.20 [facility] Comment on above: Performed By: #### L 503.0106, L500.4050, L503.6550, L100.0100, L100.9950, L503.6030 #### [facility] [address] [place], [address] GAP 12 Normal 5-15 [facility] Comment on above: Performed By: #### L 503.0106, L500.4050, L503.6550, L100.0100, L100.9950, L503.6030 #### [facility] [address] [place], [address] GFR/1.73 sq M.predicted among non-blacks MDRD (S/P/Bld) [Vol rate/Area] 125 mL/min/{1.73_m2} Normal >60 [facility] Comment on above: Result Comment: mL/m in/1.73m2 CKD-EPI Creatinine Equation (2020) Performed By: #### L 503.0106, L500.4050, L503.6550, L100.0100, L100.9950, L503.6030 #### [facility] [address] [place], [address] Globulin (S) [Mass/Vol] 2.9 g/dL Normal 2.2-4.2 [facility] Comment on above: Performed By: #### L 503.0106, L500.4050, L503.6550, L100.0100, L100.9950, L503.6030 #### [facility] [address] [place], [address] Glucose [Mass/Vol] 92 mg/dL Normal 70-99 [facility] Comment on above: Performed By: #### L 503.0106, L500.4050, L503.6550, L100.0100, L100.9950, L503.6030 #### [facility] [address] [place], [address] Potassium [Moles/Vol] 3.8 mmol/L Normal 3.3-5.1 [facility] Comment on above: Performed By: #### L 503.0106, L500.4050, L503.6550, L100.0100, L100.9950, L503.6030 #### [facility] [address] [place], [address] Sodium [Moles/Vol] 139 mmol/L Normal 133-145 [facility] Comment on above: Performed By: #### L 503.0106, L500.4050, L503.6550, L100.0100, L100.9950, L503.6030 #### [facility] [address] [place], [address] T PROT 7.2 g/dL Normal 5.9-8.4 [facility] Comment on above: Performed By: #### L 503.0106, L500.4050, L503.6550, L100.0100, L100.9950, L503.6030 #### [facility] [address] [place], [address] Urea nitrogen [Mass/Vol] 16 mg/dL Normal 4-19 [facility] Comment on above: Performed By: #### L 503.0106, L500.4050, L503.6550, L100.0100, L100.9950, L503.6030 #### [facility] [address] [place], [address] Eosinophil percentageOrdered By: Ara Franklin on 01-29-2025 Eosinophils/100 WBC (Bld) 4.7 % 0-5 [facility] Erythrocyte distribution wid th ratioOrdered By: Ara Franklin on 01-29-2025 Erythrocyte distribution width (RBC) [Ratio] 12.9 % 11.6-14.6 [facility] Erythrocyte distribution wid th standard deviationOrdered By: Ara Franklin on 01-29-2025 Erythrocyte distribution width (RBC) [Ratio] 42.3 fl 35.1-43.9 [facility] Ferritinon 01-29-2025 Ferritin [Mass/Vol] 62 ng/mL Normal 22-378 [facility] Comment on above: Performed By: #### L 503.0106, L500.4050, L503.6550, L100.0100, L100.9950, L503.6030 #### [facility] [address] [place], [address] Glomerular filtration rate ( GFR) estimation/1.73 sq m using serum, plasma, or whole bOrdered By: Ara Franklin on 01-29-2025 GFR/1.73 sq M.predicted among non-blacks MDRD (S/P/Bld) [Vol rate/Area] 125 mL/min/{1.73_m2} >60 [facility] Comment on above: mL/min/1.73m2 CKD-EP I Creatinine Equation (2020) Hematocrit Auto (Bld) [Volum e fraction]Ordered By: Ara Franklin on 01-29-2025 Hematocrit (Bld) [Volume fraction] 39.7 % 37-47 [facility] Hemoglobin measurementOrdere d By: Ara Franklin on 01-29-2025 Hemoglobin (Bld) [Mass/Vol] 13.2 g/dL 12.0-15.0 [facility] Immature granulocytes/100 WB C Auto (Bld)Ordered By: Ara Franklin on 01-29-2025 Immature granulocytes/100 WBC (Bld) 0.300 % 0.0-0.9 [facility] Comment on above: IG% - Immature Granu locytes (promyelocytes, myelocytes and metamyelocytes) > 1% indicates that a LEFT SHIFT is Present. Iron measurement (mass/mass) Ordered By: Ara Franklin on 01-29-2025 Iron (Unsp spec) [Mass/Mass] 92 ug/dL 50-170 [facility] Iron+Iron Binding Capacityon 01-29-2025 Iron [Mass/Vol] 92 ug/dL Normal 50-170 [facility] Comment on above: Performed By: #### L 503.0106, L500.4050, L503.6550, L100.0100, L100.9950, L503.6030 #### [facility] [address] [place], [address] IRON SATURATION 33.0 Normal 13-59 [facility] Comment on above: Performed By: #### L 503.0106, L500.4050, L503.6550, L100.0100, L100.9950, L503.6030 #### [facility] [address] [place], [address] TIBC 279 ug/dL Normal 250-450 [facility] Comment on above: Performed By: #### L 503.0106, L500.4050, L503.6550, L100.0100, L100.9950, L503.6030 #### [facility] [address] [place], [address] UIBC 187 ug/dL Low 228-428 [facility] Comment on above: Performed By: #### L 503.0106, L500.4050, L503.6550, L100.0100, L100.9950, L503.6030 #### [facility] [address] [place], [address] Laboratory - Chemistry and C hemistry - challengeOrdered By: Ara Franklin on 01-29-2025 AST [Catalytic activity/Vol] 19 U/L <32 [facility] MCV (mean corpuscular volume ) determinationOrdered By: Ara Franklin on 01-29-2025 MCV (RBC) [Entitic vol] 89.2 fL 81-99 [facility] Magnetic resonance imaging r eportOrdered By: Kristen Del Cid on 01-29-2025 Study report [facility] Imaging Services [address] [place] [address] Breast Bilateral W/O and W MR#: [id number] Acct: [id number] Name: SHAUNA RAINEY Rep #: [id number] : 1995 F 29 From: Leodan Del Cid DO PCP: YENNI Hartman Status: REG CLI Study:Breast Bilateral W/O and W Date of Exam : 01/25/25 Exam# [id number] Ordering Dr: Tamiko Figueroa MD PROCEDURE: BREAST [...] the right breast is recommended. Reading Location: [id number] CC: Dr. Tamiko Figueroa MD; YENNI Hartman ~ Meteorological Aide: Signed [facility] Mean corpuscular hemoglobin (MCH) determinationOrdered By: Ara Franklin on 01-29-2025 MCH (RBC) [Entitic mass] 29.7 pg 27.0-32.0 [facility] Mean corpuscular hemoglobin concentration (MCHC) determinationOrdered By: Ara Franklin on 01-29-2025 MCHC (RBC) [Mass/Vol] 33.2 g/dL 32-36 [facility] Mean platelet volume determi nationOrdered By: Ara Franklin on 01-29-2025 Platelet mean volume (Bld) [Entitic vol] 9.1 fL 6.2-12.0 [facility] Monocyte percentageOrdered B y: Ara Franklin on 01-29-2025 Monocytes/100 WBC (Bld) 7.8 % 0-10 [facility] Neutrophil percentageOrdered By: Ara Franklin on 01-29-2025 Neutrophils/100 WBC (Bld) 52.6 % 47-70 [facility] No Panel InformationOrdered By: Ara Franklin on 01-29-2025 Unsaturated Iron Binding Capacity 187 ug/dL Low 228-428 [facility] Nucleated red blood cell per centageOrdered By: Ara Franklin on 01-29-2025 Nucleated RBC/100 WBC (Bld) [Ratio] 0 % 0-5 [facility] Oncology Visit Reporton 01-08 Oncology Visit Report [facility] [address] [place] [address] OFFICE VISIT Date of Service: 01/29/25 1515 MR#: [id number] Acct: [id number] Name: BRIGIDSHAUNA KIDD Rep #: [id number] : 1995 From: Ara Franklin MD Age/Sex: 29/F [place] [facility] [place]: Signed HPI Subjective Date of Service [...] and DCIS. The cancer is ER negative, OK negative and HER2/camila overexpressed 3+. January 25, [...] FINAL ASSESSMENT BI-RADS 6: KNOWN BIOPSY-PROVEN MALIGNANCY. [facility] Medical History (Updated 01/29/25 @ 16:03 by [...] Temperature Source (more content not included)... Normal [facility] Platelet countOrdered By: Huong Franklin on 01-29-2025 Platelets (Bld) [#/Vol] 264 10*3/uL 150-450 [facility] Potassium measurement (mass/ volume)Ordered By: Ara Franklin on 01-29-2025 Potassium (Unsp spec) [Mass/Vol] 3.8 mmol/L 3.3-5.1 [facility] RBC Auto (Bld) [#/Vol]Ordere d By: Ara Franklin on 01-29-2025 RBC (Bld) [#/Vol] 4.45 10*6/uL 4.2-5.4 [facility] Retic Panelon 01-29-2025 IM RET FRACTION 5.10 Normal 3.00-15.90 [facility] Comment on above: Performed By: #### L 503.0106, L500.4050, L503.6550, L100.0100, L100.9950, L503.6030 #### [facility] [address] [place], [address] RET-HE 33.6 pg Normal 30-35 [facility] Comment on above: Performed By: #### L 503.0106, L500.4050, L503.6550, L100.0100, L100.9950, L503.6030 #### [facility] [address] [place], [address] Retic Count 1.49 Normal 0.5-1.5 [facility] Comment on above: Performed By: #### L 503.0106, L500.4050, L503.6550, L100.0100, L100.9950, L503.6030 #### [facility] [address] [place], [address] Reticulocyte hemoglobin equi valent (RET-He) measurementOrdered By: Ara Franklin on 01-29-2025 Hemoglobin (Reticulocytes) [Entitic mass] 33.6 pg 30-35 [facility] Reticulocytes Auto (Bld) [#/ Vol]Ordered By: Ara Franklin on 01-29-2025 Reticulocytes/100 RBC (Bld) 1.49 % 0.5-1.5 [facility] Serum creatinine measurement (mass/volume)Ordered By: Ara Franklin on 01-29-2025 Creatinine [Mass/Vol] 0.61 mg/dL Low 0.70-1.20 [facility] Serum globulin measurementOr dered By: Ara Franklin on 01-29-2025 Globulin (S) [Mass/Vol] 2.9 g/dL 2.2-4.2 [facility] Serum glucose measurement (m ass/volume)Ordered By: Ara Franklin on 01-29-2025 Glucose [Mass/Vol] 92 mg/dL 70-99 [facility] Serum or plasma alanine mcdonald otransferase (ALT) measurementOrdered By: Ara Franklin on 01-29-2025 ALT [Catalytic activity/Vol] 24 U/L <35 [facility] Serum or plasma albumin ernestine urement (mass/volume)Ordered By: Ara Franklin on 01-29-2025 Albumin [Mass/Vol] 4.3 g/dL 3.5-5.0 [facility] Serum or plasma albumin/glob ulin mass ratioOrdered By: Ara Franklin on 01-29-2025 Albumin/Globulin [Mass ratio] 1.5 {ratio} 0.9-2.4 [facility] Serum or plasma alkaline chuckie sphatase measurementOrdered By: Ara Franklin on 01-29-2025 ALP [Catalytic activity/Vol] 68 U/L 35-104 [facility] Serum or plasma calcium ernestine urement (mass/volume)Ordered By: Ara Franklin on 01-29-2025 Calcium [Mass/Vol] 9.3 mg/dL 7.6-11.0 [facility] Serum or plasma ferritin ольга surement (mass/volume)Ordered By: Ara Franklin on 01-29-2025 Ferritin [Mass/Vol] 62 ng/mL 22-378 [facility] Serum or plasma iron saturat ion measurement (mass fraction)Ordered By: Ara Franklin on 01-29-2025 Iron saturation [Mass fraction] 33.0 % 13-59 [facility] Serum or plasma urea nitroge n measurement (mass/volume)Ordered By: Ara Franklin on 01-29-2025 Urea nitrogen [Mass/Vol] 16 mg/dL 4-19 [facility] Sodium levelOrdered By: Marlys Franklin on 01-29-2025 Sodium [Moles/Vol] 139 mmol/L 133-145 [facility] Total proteinOrdered By: Andrés Franklin on 01-29-2025 Protein [Mass/Vol] 7.2 g/dL 5.9-8.4 [facility] Vitamin B12on 01-29-2025 Cobalamin (Vitamin B12) [Mass/Vol] 565 pg/mL Normal 180-914 [facility] Comment on above: Performed By: #### L 503.0106, L500.4050, L503.6550, L100.0100, L100.9950, L503.6030 #### [facility] [address] [place], [place], [address] Vitamin B12 ser/plasOrdered By: Ara Franklin on 01-29-2025 Cobalamin (Vitamin B12) [Mass/Vol] 565 pg/mL 180-914 [facility] White blood cell (WBC) count Or[facility]: [facility] on 01-29-2025 WBC (Bld) [#/Vol] 6.8 10*3/uL 4.4-11.0 [facility] Breast Bilateral W/O and Won 01-25-2025 Breast Bilateral W/O and W [facility] [address] [place], [place] [id number] Breast Bilateral W/O and W MR#: [id number] Acct: [id number] Name: SHAUNA RAINEY Rep #: [id number] : 1995 F 29 From: Kristen May PCP: YENNI Hartman Status: REG CLI Study: Breast Bilateral W/O and W Date of Exam: 01/25 Exam# [id number] Ordering Dr: Tamiko Figueroa MD PROCEDURE: BREAST [...] the right breast is recommended. Reading Location: [id number] CC: Dr. Tamiko Figueroa MD; YENNI Hartman Meteorological Aide: Signed Normal [facility] Surgery Visit Reporton 01-23 Surgery Visit Report [facility] [address] [place] [address] OFFICE VISIT Date of Service: 01/23/25 MR#: [id number] Acct: [id number] Name: SHAUNA RAINEY Rep #: [id number] : 1995 Provider: Dr. Tamiko aguero MD Age/Sex: 29/F Location: [facility] Status: Signed Intake Vital Signs 01/23/25 09:59 [...] showed invasive ductal carcinoma grade 2- 3, ER/OK negative, HER2 positive at in [place]. Ultrasound did not show any abnormal or [...] cooperative, healthy appearing and no acute distress [facility] Head: normal to inspection Chest Other: Breast [...] surgery C (more content not included)... Normal [facility] BI BREAST BIOPSY CLIP IMAGIN Dimitri 01-12-2025 [...] AM -------- ORIGINAL REPORT -------- Dictation workstation: [id number] Interpreted By: Adithya Shaw, STUDY: BI US GUIDED BREAST LOCALIZATION AND BIOPSY LEFT; BI BREAST BIOPSY CLIP IMAGING; 01/12/2025 12:05 pm; 01/12/2025 11:32 am ACCESSION NUMBER(S): [id number]; [id number] ORDERING CLINICIAN: RYAN COCHRAN INDICATION: Left breast [...] Dr. Shaw, a radiology nurse and an electrical engineering technologist were present. PROCEDURE: Scanning of the [...] Adithya Shaw 01/12/2025 1:04 PM Dictation workstation: [id number] [facility] BI US GUIDED BREAST LOCALIZA TION AND [...] AM -------- ORIGINAL REPORT -------- Dictation workstation: [id number] Interpreted By: Adithya Shaw, STUDY: BI US GUIDED BREAST LOCALIZATION AND BIOPSY LEFT; BI BREAST BIOPSY CLIP IMAGING; 01/12/2025 12:05 pm; 01/12/2025 11:32 am ACCESSION NUMBER(S): [id number]; [id number] ORDERING CLINICIAN: RYAN COCHRAN INDICATION: Left breast [...] Dr. Shaw, a radiology nurse and an electrical engineering technologist were present. PROCEDURE: Scanning of the [...] Adithya Shaw 01/12/2025 1:04 PM Dictation workstation: [id number] [facility] MG Breast - unilateral Singl e view for clip placementon 01-12-2025 Radiology Study observation (narrative) [facility] Work Phone: No Panel Informationon 01-12 Status post ultrasou nd guided core needle biopsy of 3 left breast masses followed by tissue marker placement. Pathology is pending. POST PROCEDURE MAMMOGRAM FOR MARKER PLACEMENT. MACRO: None Signed by: Adithya Shaw 01/12/2025 1:04 PM Dictation workstation: [id number] [facility] Interpreted By: Adithya Huertas, STUDY: BI US GUIDED BREAST LOCALIZATION AND BIOPSY LEFT; BI BREAST BIOPSY CLIP IMAGING; 01/12/2025 12:05 pm; 01/12/2025 11:32 am ACCESSION NUMBER(S): [id number]; [id number] ORDERING CLINICIAN: RYAN COCHRAN INDICATION: Left breast [...] Dr. Shaw, a radiology nurse and an electrical engineering technologist were present. PROCEDURE: Scanning of the [...] 12:05 pm; 01/12/2025 11:32 am ACCESSION NUMBER(S): [id number]; [id number] ORDERING CLINICIAN: RYAN COCHRAN INDICATION: Left breast [...] Dr. Shaw, a radiology nurse and an electrical engineering technologist were present. PROCEDURE: Scanning of the [...] Adithya Shaw 01/12/2025 1:04 PM Dictation workstation: [id number] [facility] Work Phone: No Panel InformationOrdered By: Adithya Shaw on 01-12-2025 [facility] Work Phone: Surgical pathology studyon 0 01-12-2025 Surgical pathology study Pathology report.total SEE COMMENT Surgical Pathology Case: [id number] Authorizing Provider: Ryan Cochran PA-C Collected: 01/12/2025 1138 Ordering Location: [facility] Received: 01/12/2025 1221 Center Pathologist: Tevin Newell [...] (FDA) cleared (test / vendor): Damien CONFIRM anti-(OK) (1E2) Rabbit Monoclonal Primary Anitbody, Damien Multimer [...] Drug Administration (FDA) cleared (test / vendor): Damine CONFIRM anti-(ER) (SP1) Rabbit Monoclonal Primary Antibody, Damien Multimer Detection Primary Antibody: SP1 Scoring System: No separate scoring system used Test(s) Performed: Progesterone Receptor (PgR) Status: Negative (less than 1%) : Internal control cells present and stain as expected Test Type: Food and Drug Administration (FDA) cleared (test / vendor): Damien CONFIRM anti-(OK) (1E2) Rabbit Monoclonal Primary Anitbody, Damien Multimer [...] Antibody: SP1 (more content not included)... Normal [facility] US Guidance for localization of Breast - lefton 01-12-2025 Radiology Study observation (narrative) [facility] Work Phone: BI MAMMO BILATERAL DIAGNOSTI C TOMOSYNTHESISon 01-10-2025 BI MAMMO BILATERAL DIAGNOSTIC TOMOSYNTHESIS Interpreted By: Adithya Shaw, STUDY: BI MAMMO BILATERAL DIAGNOSTIC TOMOSYNTHESIS; BI US BREAST LIMITED LEFT; 01/10/2025 8:52 am; 01/10/2025 10:45 am ACCESSION NUMBER(S): [id number]; [id number] ORDERING CLINICIAN: RYAN COCHRAN INDICATION: Signs/Symptoms:L breast [...] Adithya Shaw 01/10/2025 11:20 AM Dictation workstation: [id number] [facility] BI US BREAST LIMITED LEFTon 01-10-2025 BI US BREAST LIMITED LEFT Interpreted By: Adithya Shaw, STUDY: BI MAMMO BILATERAL DIAGNOSTIC TOMOSYNTHESIS; BI US BREAST LIMITED LEFT; 01/10/2025 8:52 am; 01/10/2025 10:45 am ACCESSION NUMBER(S): [id number]; [id number] ORDERING CLINICIAN: RYAN COCHRAN INDICATION: Signs/Symptoms:L breast [...] Adithya Shaw 01/10/2025 11:20 AM Dictation workstation: [id number] Abnormal [facility] DBT Breast - bilateral diagn osticon 01-10-2025 Radiology Study observation (narrative) [facility] Work Phone: No Panel InformationOrdered By: Adithya Shaw on 01-10-2025 Interpretation and review of laboratory results Abnormal [facility] Work Phone: [facility] Work Phone: No Panel Informationon 01-10 Multiple [...] Adithya Shaw 01/10/2025 11:20 AM Dictation workstation: [id number] [facility] Interpreted By: Adithya Huertas, STUDY: BI MAMMO BILATERAL DIAGNOSTIC TOMOSYNTHESIS; BI US BREAST LIMITED LEFT; 01/10/2025 8:52 am; 01/10/2025 10:45 am ACCESSION NUMBER(S): [id number]; [id number] ORDERING CLINICIAN: RYAN COCHRAN INDICATION: Signs/Symptoms:L breast [...] identified. This study was interpreted with CAD. MMAdithya Bradley MD - 01/10/2025 Interpreted By: Adithya Shaw, STUDY: BI MAMMO BILATERAL DIAGNOSTIC TOMOSYNTHESIS; BI US BREAST LIMITED LEFT; 01/10/2025 8:52 am; 01/10/2025 10:45 am ACCESSION NUMBER(S): [id number]; [id number] ORDERING CLINICIAN: RYAN COCHRAN INDICATION: Signs/Symptoms:L breast [...] Adithya Shaw 01/10/2025 11:20 AM Dictation workstation: [id number] [facility] Work Phone: US Breast - left limitedon 0 01-10-2025 Radiology Study observation (narrative) [facility] Work Phone: CBC WITH AUTO DIFFERENTIALon 05-25-2024 AUTO NRBC 0.0 % Normal [facility] Comment on above: Performed By: #### L [id number] #### [facility] [address] [place], [place] [address] Ivan Rizvi M.D. [id number] AUTO NRBC ABS COUNT 0.00 K/mcL Normal 0.00-0.00 [facility] Comment on above: Performed By: #### L [id number] #### [facility] [address] [place] [address] Ivan Rizvi M.D. [id number] BASOPHILS ABSOLUTE COUNT 0.04 K/mcL Normal 0.00-0.30 [facility] Comment on above: Performed By: #### L [id number] #### LAB [address] [place] [address] Ivan Rizvi M.D. [id number] Basophils/100 WBC (Bld) 0.8 % Normal [facility] Comment on above: Performed By: #### L [id number] #### LAB [address] [place] [address] Ivan Rizvi M.D. [id number] Eosinophils (Bld) [#/Vol] 0.33 10*3/uL Normal 0.00-0.50 [facility] Comment on above: Performed By: #### L [id number] #### LAB [address] [place] [address] Ivan Rizvi M.D. [id number] Eosinophils/100 WBC (Bld) 6.7 % Normal [facility] Comment on above: Performed By: #### L [id number] #### LAB [address] [place] [address] Ivan Rizvi M.D. [id number] Erythrocyte distribution width (RBC) [Ratio] 14.8 % Normal 11.6-14.8 [facility] Comment on above: Performed By: #### L [id number] #### LAB [address] [place] [address] Ivan Rizvi M.D. [id number] Hematocrit (Bld) [Volume fraction] 42.0 % Normal 36.0-46.0 [facility] Comment on above: Performed By: #### L [id number] #### LAB [address] [place] [address] Ivan Rizvi M.D. [id number] Hemoglobin (Bld) [Mass/Vol] 13.7 g/dL Normal 12.0-16.0 [facility] Comment on above: Performed By: #### L [id number] #### [facility] [address] [place] [address] Ivan Rizvi M.D. [id number] IG ABSOLUTE 0.03 K/mcL Normal 0.00-0.30 [facility] Comment on above: Performed By: #### L [id number] #### LAB [address] [place] [address] Ivan Rizvi M.D. [id number] IG PERCENT 0.60 % Normal [facility] Comment on above: Result Comment: The IG parameter is the percentage of metamyelocytes, myelocytes and promyelocytes. An immature granulocyte count (IG) of 1% or more suggests the possibility of infection, an IG count of 3% is very likely related to an infection. Performed By: #### L [id number] #### LAB [address] [place] [address] Ivan Rizvi M.D. [id number] Lymphocytes (Bld) [#/Vol] 1.94 10*3/uL Normal 0.90-4.00 [facility] Comment on above: Performed By: #### L [id number] #### LAB [address] [place] [address] Ivan Rizvi M.D. [id number] Lymphocytes/100 WBC (Bld) 39.6 % Normal [facility] Comment on above: Performed By: #### L [id number] #### LAB [address] [place] [address] Ivan Rizvi M.D. [id number] MCH (RBC) [Entitic mass] 28.8 pg Normal 26.0-34.0 [facility] Comment on above: Performed By: #### L CA2357 #### LAB [address] [address] Ivan Rizvi M.D. [id number] MCV (RBC) [Entitic vol] 88.4 fL Normal 80.0-100.0 [facility] Comment on above: Performed By: #### L [id number] #### LAB [address] [place] [address] Ivan Rizvi M.D. [id number] MEAN CORPUSCULAR HEMOGLOBIN CONC 32.6 g/dL Normal 31.0-37.0 [facility] Comment on above: Performed By: #### L RQ9591 #### LAB [address] [address] Ivan Rizvi M.D. [id number] Monocytes (Bld) [#/Vol] 0.43 10*3/uL Normal 0.30-0.90 [facility] Comment on above: Performed By: #### L [id number] #### LAB [address] [address] Ivan Rizvi M.D. [id number] Monocytes/100 WBC (Bld) 8.8 % Normal [facility] Comment on above: Performed By: #### L [id number] #### LAB [address] [address] Ivan Rizvi M.D. [id number] NEUTROPHILS ABSOLUTE COUNT 2.13 K/mcL Normal 1.70-7.00 [facility] Comment on above: Performed By: #### L [id number] #### LAB [address] [address] Ivan Rizvi M.D. [id number] Neutrophils/100 WBC (Bld) 43.5 % Normal [facility] Comment on above: Performed By: #### L [id number] #### LAB [address] [address] Ivan Rizvi M.D. [id number] Platelet mean volume (Bld) [Entitic vol] 9.8 fL Normal 9.4-12.4 [facility] Comment on above: Performed By: #### L ED3401 #### LAB [address] [place] [address] Ivan Rizvi M.D. [id number] Platelets (Bld) [#/Vol] 314 10*3/uL Normal 150-400 [facility] Comment on above: Performed By: #### L AZ2656 #### LAB [address] [place] [address] Ivan Rizvi M.D. [id number] RBC (Bld) [#/Vol] 4.75 10*6/uL Normal 4.00-5.20 [facility] Comment on above: Performed By: #### L XT3819 #### [facility] [address] [place] [id number] Ivan Rizvi M.D. [id number] WBC (Bld) [#/Vol] 4.90 10*3/uL Normal 4.50-11.00 [facility] Comment on above: Performed By: #### L [id number] #### [facility] [address] [place] [address] Ivan Rizvi M.D. [id number] COMPREHENSIVE METABOLIC PANE [facility] 05-25-2024 Albumin [Mass/Vol] 3.7 g/dL Normal 3.2-5.2 [facility] Comment on above: Order Comment: [facility] has implemented the eGFR calculation approach that does not have a coefficient for race that conforms to the NKF-ASN Task Force Recommendations. Performed By: #### 4 6126 ####[facility] [address] [place] [address] Ivan Rizvi M.D. [id number] ALP [Catalytic activity/Vol] 70 U/L Normal 40-140 [facility] Comment on above: Order Comment: [facility] has implemented the eGFR calculation approach that does not have a coefficient for race that conforms to the NKF-ASN Task Force Recommendations. Performed By: #### 4 6126 ####[facility] [address] [place] [address] Ivan Rizvi M.D. [id number] ALT [Catalytic activity/Vol] 18 U/L Normal 0-35 U/L [facility] Comment on above: Order Comment: [facility] has implemented the eGFR calculation approach that does not have a coefficient for race that conforms to the NKF-ASN Task Force Recommendations. Performed By: #### 4 6126 ####[facility] [address] [place] [address] Ivan Rizvi M.D. [id number] Anion gap [Moles/Vol] 15 mmol/L Normal 10-20 [facility] Comment on above: Order Comment: [facility] has implemented the eGFR calculation approach that does not have a coefficient for race that conforms to the NKF-ASN Task Force Recommendations. Performed By: #### 4 6126 #### LAB [address] [place] [address] Ivan Rizvi M.D. [id number] AST [Catalytic activity/Vol] 15 U/L Normal 0-35 U/L [facility] Comment on above: Order Comment: [facility] has implemented the eGFR calculation approach that does not have a coefficient for race that conforms to the NKF-ASN Task Force Recommendations. Performed By: #### 4 6126 #### LAB [address] [place] [address] Ivan Rizvi M.D. [id number] Bilirubin [Mass/Vol] 0.4 mg/dL Normal 0.0-1.3 [facility] Comment on above: Order Comment: [facility] has implemented the eGFR calculation approach that does not have a coefficient for race that conforms to the NKF-ASN Task Force Recommendations. Performed By: #### 4 6126 #### LAB [address] [place] [address] Ivan Rizvi M.D. [id number] Calcium [Mass/Vol] 9.1 mg/dL Normal 8.4-10.2 [facility] Comment on above: Order Comment: [facility] has implemented the eGFR calculation approach that does not have a coefficient for race that conforms to the NKF-ASN Task Force Recommendations. Performed By: #### 4 6126 #### LAB [address] [place] [address] Ivan Rizvi M.D. [id number] Chloride [Moles/Vol] 104 mmol/L Normal 98-108 [facility] Comment on above: Order Comment: [facility] has implemented the eGFR calculation approach that does not have a coefficient for race that conforms to the NKF-ASN Task Force Recommendations. Performed By: #### 4 6126 #### LAB [address] [place], [place] [address] Ivan Rizvi M.D. [id number] Creatinine [Mass/Vol] 0.54 mg/dL Normal 0.40-1.10 [facility] Comment on above: Order Comment: [facility] has implemented the eGFR calculation approach that does not have a coefficient for race that conforms to the NKF-ASN Task Force Recommendations. Performed By: #### 4 6126 #### LAB [address] [place] [address] Ivan Rizvi M.D. [id number] EGFR 130 mL/min/1.73 m2 Normal >=60 [facility] Comment on above: Order Comment: [facility] has implemented the eGFR calculation approach that does not have a coefficient for race that conforms to the NKF-ASN Task Force Recommendations. Result Comment: Oskar mated GFR was calculated using the 2020 CKD-EPI creatinine equation. Performed By: #### 4 6126 #### LAB [address] [place] [address] Ivan Rizvi M.D. [id number] Glucose [Mass/Vol] 101 mg/dL High 65-99 [facility] Comment on above: Order Comment: [facility] has implemented the eGFR calculation approach that does not have a coefficient for race that conforms to the NKF-ASN Task Force Recommendations. Performed By: #### 4 6126 #### LAB [address] [place] [address] Ivan Rizvi M.D. [id number] HCO3 (Bld) [Moles/Vol] 23 mmol/L Normal 21-32 [facility] Comment on above: Order Comment: [facility] has implemented the eGFR calculation approach that does not have a coefficient for race that conforms to the NKF-ASN Task Force Recommendations. Performed By: #### 4 6126 #### LAB [address] [place] [address] Ivan Rizvi M.D. [id number] Potassium [Moles/Vol] 4.1 mmol/L Normal 3.5-5.1 [facility] Comment on above: Order Comment: [facility] has implemented the eGFR calculation approach that does not have a coefficient for race that conforms to the NKF-ASN Task Force Recommendations. Performed By: #### 4 6126 #### LAB [address] [place] [address] Ivan Rizvi M.D. [id number] Protein [Mass/Vol] 6.5 g/dL Normal 6.0-8.0 [facility] Comment on above: Order Comment: [facility] has implemented the eGFR calculation approach that does not have a coefficient for race that conforms to the NKF-ASN Task Force Recommendations. Performed By: #### 4 6126 #### LAB [address] [place] [address] Ivan Rizvi M.D. [id number] Sodium [Moles/Vol] 138 mmol/L Normal 135-145 [facility] Comment on above: Order Comment: [facility] has implemented the eGFR calculation approach that does not have a coefficient for race that conforms to the NKF-ASN Task Force Recommendations. Performed By: #### 4 6126 #### LAB [address] [place] [address] Ivan Rizvi M.D. [id number] Urea nitrogen [Mass/Vol] 8 mg/dL Normal 8-25 [facility] Comment on above: Order Comment: [facility] has implemented the eGFR calculation approach that does not have a coefficient for race that conforms to the NKF-ASN Task Force Recommendations. Performed By: #### 4 6126 #### LAB [address] [place] [address] Ivan Rizvi M.D. [id number] Urea nitrogen/Creatinine [Mass ratio] 14.8 mg/mg Normal 10.0-20.0 [facility] Comment on above: Order Comment: [facility] has implemented the eGFR calculation approach that does not have a coefficient for race that conforms to the NKF-ASN Task Force Recommendations. Performed By: #### 4 6126 #### LAB [address] [place] [address] Ivan Rizvi M.D. [id number] CBC WITH AUTO DIFFERENTIALon 05-24-2024 AUTO NRBC 0.0 % Normal [facility] Comment on above: Performed By: #### L [id number] #### LAB [address] [place] [address] Ivan Rizvi M.D. [id number] AUTO NRBC ABS COUNT 0.00 K/mcL Normal 0.00-0.00 [facility] Comment on above: Performed By: #### L [id number] #### LAB [address] [place] [address] Ivan Rizvi M.D. [id number] BASOPHILS ABSOLUTE COUNT 0.05 K/mcL Normal 0.00-0.30 [facility] Comment on above: Performed By: #### L [id number] #### LAB [address] [place] [address] vIan Rizvi M.D. [id number] Basophils/100 WBC (Bld) 1.0 % [facility] Comment on above: Performed By: #### L VP1446 #### LAB [address] [place] [address] Ivan Rizvi M.D. [id number] Eosinophils (Bld) [#/Vol] 0.43 10*3/uL Normal 0.00-0.50 [facility] Comment on above: Performed By: #### L SH4578 #### LAB [address] [place] [address] Ivan Rizvi M.D. [id number] Eosinophils/100 WBC (Bld) 8.8 % [facility] Comment on above: Performed By: #### L VY7171 #### LAB [address] [place] [address] Ivan Rizvi M.D. [id number] Erythrocyte distribution width (RBC) [Ratio] 15.2 % High 11.6-14.8 [facility] Comment on above: Performed By: #### L UZ4232 #### LAB [address] [place] [address] Ivan Rizvi M.D. [id number] Hematocrit (Bld) [Volume fraction] 39.6 % Normal 36.0-46.0 [facility] Comment on above: Performed By: #### L YW9742 #### LAB [address] [place] [address] Ivan Rizvi M.D. [id number] Hemoglobin (Bld) [Mass/Vol] 12.7 g/dL Normal 12.0-16.0 [facility] Comment on above: Performed By: #### L MD5761 #### LAB [address] [place] [address] Ivan Rizvi M.D. [id number] IG ABSOLUTE 0.03 K/mcL Normal 0.00-0.30 [facility] Comment on above: Performed By: #### L CL0366 #### LAB [address] [place] [address] Ivan Rizvi M.D. [id number] IG PERCENT 0.60 % Normal [facility] Comment on above: Result Comment: The IG parameter is the percentage of metamyelocytes, myelocytes and promyelocytes. An immature granulocyte count (IG) of 1% or more suggests the possibility of infection, an IG count of 3% is very likely related to an infection. Performed By: #### L AH4631 #### LAB [address] [place] [address] Ivan Rizvi M.D. [id number] Lymphocytes (Bld) [#/Vol] 2.04 10*3/uL Normal 0.90-4.00 [facility] Comment on above: Performed By: #### L [id number] #### LAB [address] [place] [address] Ivan Rizvi M.D. [id number] Lymphocytes/100 WBC (Bld) 42.0 % Normal [facility] Comment on above: Performed By: #### L [id number] #### LAB [address] [place] [address] Ivan Rizvi M.D. [id number] MCH (RBC) [Entitic mass] 28.7 pg Normal 26.0-34.0 [facility] Comment on above: Performed By: #### L [id number] #### LAB [address] [address] Ivan Rizvi M.D. [id number] MCV (RBC) [Entitic vol] 89.4 fL Normal 80.0-100.0 [facility] Comment on above: Performed By: #### L [id number] #### MH LAB [address] [address] Ivan Rizvi M.D. [id number] MEAN CORPUSCULAR HEMOGLOBIN CONC 32.1 g/dL Normal 31.0-37.0 [facility] Comment on above: Performed By: #### L [id number] #### LAB [address] [address] Ivan Rizvi M.D. [id number] Monocytes (Bld) [#/Vol] 0.44 10*3/uL Normal 0.30-0.90 [facility] Comment on above: Performed By: #### L [id number] #### LAB [address] [address] Ivan Rizvi M.D. [id number] Monocytes/100 WBC (Bld) 9.1 % Normal [facility] Comment on above: Performed By: #### L [id number] #### LAB [address] [address] Ivan Rizvi M.D. [id number] NEUTROPHILS ABSOLUTE COUNT 1.87 K/mcL Normal 1.70-7.00 [facility] Comment on above: Performed By: #### L [id number] #### MH LAB [address] [address] Ivan Rizvi M.D. [id number] Neutrophils/100 WBC (Bld) 38.5 % Normal [facility] Comment on above: Performed By: #### L [id number] #### MH LAB [address] [address] Ivan Rizvi M.D. [id number] Platelet mean volume (Bld) [Entitic vol] 9.6 fL Normal 9.4-12.4 [facility] Comment on above: Performed By: #### L [id number] #### MH LAB [address] [address] Ivan Rizvi M.D. [id number] Platelets (Bld) [#/Vol] 301 10*3/uL Normal 150-400 [facility] Comment on above: Performed By: #### L [id number] #### MH LAB [address] [address] Ivan Rizvi M.D. [id number] RBC (Bld) [#/Vol] 4.43 10*6/uL Normal 4.00-5.20 [facility] Comment on above: Performed By: #### L [id number] #### MH LAB [address] [address] Ivan Rizvi M.D. [id number] WBC (Bld) [#/Vol] 4.86 10*3/uL Normal 4.50-11.00 [facility] Comment on above: Performed By: #### L [id number] #### MH LAB [address] [address] Ivan Rizvi M.D. [id number] COMPREHENSIVE METABOLIC PANE Colin 05-24-2024 Albumin [Mass/Vol] 3.5 g/dL Normal 3.2-5.2 [facility] Comment on above: Order Comment: [facility] has implemented the eGFR calculation approach that does not have a coefficient for race that conforms to the NKF-ASN Task Force Recommendations. Performed By: #### 4 6126 ####MH LAB [address] [address] Ivan Rizvi M.D. [id number] ALP [Catalytic activity/Vol] 64 U/L Normal 40-140 [facility] Comment on above: Order Comment: [facility] has implemented the eGFR calculation approach that does not have a coefficient for race that conforms to the NKF-ASN Task Force Recommendations. Performed By: #### 4 6126 #### LAB [address] [address] Ivan Rizvi M.D. [id number] ALT [Catalytic activity/Vol] 20 U/L Normal 0-35 U/L [facility] Comment on above: Order Comment: [facility] has implemented the eGFR calculation approach that does not have a coefficient for race that conforms to the NKF-ASN Task Force Recommendations. Performed By: #### 4 6126 #### LAB [address] [address] Ivan Rizvi M.D. [id number] Anion gap [Moles/Vol] 15 mmol/L Normal 10-20 [facility] Comment on above: Order Comment: [facility] has implemented the eGFR calculation approach that does not have a coefficient for race that conforms to the NKF-ASN Task Force Recommendations. Performed By: #### 4 6126 #### LAB [address] [address] Ivan Rizvi M.D. [id number] AST [Catalytic activity/Vol] 15 U/L Normal 0-35 U/L [facility] Comment on above: Order Comment: [facility] has implemented the eGFR calculation approach that does not have a coefficient for race that conforms to the NKF-ASN Task Force Recommendations. Performed By: #### 4 6126 #### LAB [address] [address] Ivan Rizvi M.D. [id number] Bilirubin [Mass/Vol] 0.3 mg/dL Normal 0.0-1.3 [facility] Comment on above: Order Comment: [facility] has implemented the eGFR calculation approach that does not have a coefficient for race that conforms to the NKF-ASN Task Force Recommendations. Performed By: #### 4 6126 #### LAB [address] [address] Ivan Rizvi M.D. [id number] Calcium [Mass/Vol] 8.9 mg/dL Normal 8.4-10.2 [facility] Comment on above: Order Comment: [facility] has implemented the eGFR calculation approach that does not have a coefficient for race that conforms to the NKF-ASN Task Force Recommendations. Performed By: #### 4 6158 #### LAB [address] [place], [place] [address] Ivan Rizvi M.D. [id number] Chloride [Moles/Vol] 107 mmol/L Normal 98-108 [facility] Comment on above: Order Comment: [facility] has implemented the eGFR calculation approach that does not have a coefficient for race that conforms to the NKF-ASN Task Force Recommendations. Performed By: #### 4 6109 #### LAB [address] [address] Ivan Rizvi M.D. [id number] Creatinine [Mass/Vol] 0.54 mg/dL Normal 0.40-1.10 [facility] Comment on above: Order Comment: [facility] has implemented the eGFR calculation approach that does not have a coefficient for race that conforms to the NKF-ASN Task Force Recommendations. Performed By: #### 4 6104 #### LAB [address] [address] Ivan Rizvi M.D. [id number] EGFR 130 mL/min/1.73 m2 Normal >=60 [facility] Comment on above: Order Comment: [facility] has implemented the eGFR calculation approach that does not have a coefficient for race that conforms to the NKF-ASN Task Force Recommendations. Result Comment: Oskar mated GFR was calculated using the 2020 CKD-EPI creatinine equation. Performed By: #### 4 6116 #### LAB [address] [address] Ivan Rizvi M.D. [id number] Glucose [Mass/Vol] 94 mg/dL Normal 65-99 [facility] Comment on above: Order Comment: [facility] has implemented the eGFR calculation approach that does not have a coefficient for race that conforms to the NKF-ASN Task Force Recommendations. Performed By: #### 4 6126 #### LAB [address] [address] Ivan Rizvi M.D. [id number] HCO3 (Bld) [Moles/Vol] 20 mmol/L Low 21-32 [facility] Comment on above: Order Comment: [facility] has implemented the eGFR calculation approach that does not have a coefficient for race that conforms to the NKF-ASN Task Force Recommendations. Performed By: #### 4 6126 #### LAB [address] [address] Ivan Rizvi M.D. [id number] Potassium [Moles/Vol] 4.4 mmol/L Normal 3.5-5.1 [facility] Comment on above: Order Comment: [facility] has implemented the eGFR calculation approach that does not have a coefficient for race that conforms to the NKF-ASN Task Force Recommendations. Performed By: #### 4 6126 #### LAB [address] [address] Ivan Rizvi M.D. [id number] Protein [Mass/Vol] 6.1 g/dL Normal 6.0-8.0 [facility] Comment on above: Order Comment: [facility] has implemented the eGFR calculation approach that does not have a coefficient for race that conforms to the NKF-ASN Task Force Recommendations. Performed By: #### 4 6126 #### LAB [address] [address] Ivan Rizvi M.D. [id number] Sodium [Moles/Vol] 138 mmol/L Normal 135-145 [facility] Comment on above: Order Comment: [facility] has implemented the eGFR calculation approach that does not have a coefficient for race that conforms to the NKF-ASN Task Force Recommendations. Performed By: #### 4 6126 #### LAB [address] [id number] Ivan Rizvi M.D. [id number] Urea nitrogen [Mass/Vol] 7 mg/dL Low 8-25 [facility] Comment on above: Order Comment: [facility] has implemented the eGFR calculation approach that does not have a coefficient for race that conforms to the NKF-ASN Task Force Recommendations. Performed By: #### 4 6126 #### LAB [address] [address] Ivan Rizvi M.D. [id number] Urea nitrogen/Creatinine [Mass ratio] 13.0 mg/mg Normal 10.0-20.0 [facility] Comment on above: Order Comment: [facility] has implemented the eGFR calculation approach that does not have a coefficient for race that conforms to the NKF-ASN Task Force Recommendations. Performed By: #### 4 6126 #### LAB [address] [address] Ivan Rizvi M.D. [id number] MAGNESIUM LEVELon 05-24-2024 Magnesium [Mass/Vol] 2.1 mg/dL Normal 1.6-2.4 [facility] Comment on above: Performed By: #### 4 6109 ####MH LAB [address] [address] Ivan Rizvi M.D. [id number] PHOSPHORUSon 05-24-2024 Phosphate [Mass/Vol] 4.3 mg/dL Normal 2.7-4.5 [facility] Comment on above: Performed By: #### 4 6299 #### LAB [address] [address] Ivan Rizvi M.D. [id number] BLOOD CULTURE AEROBIC/ANAERO BICon 05-23-2024 BLOOD CULTURE AEROBIC/ANAEROBIC BLOOD CULTURE No Growth after 5 days [facility] Comment on above: Performed By: #### 4 4014 #### LAB [address] [id number] Ivan Rizvi M.D. [id number] BLOOD CULTURE AEROBIC/ANAEROBIC BLOOD CULTURE No Growth after 5 days [facility] Comment on above: Performed By: #### 4 4014 #### LAB [address] [address] Ivan Rizvi M.D. [id number] CBC WITH AUTO DIFFERENTIALon 05-23-2024 AUTO NRBC 0.0 % Normal [facility] Comment on above: Performed By: #### L [id number] #### LAB [address] [address] Ivan Rizvi M.D. [id number] AUTO NRBC ABS COUNT 0.00 K/mcL Normal 0.00-0.00 [facility] Comment on above: Performed By: #### L [id number] #### LAB [address] [address] Ivan Rizvi M.D. [id number] BASOPHILS ABSOLUTE COUNT 0.05 K/mcL Normal 0.00-0.30 [facility] Comment on above: Performed By: #### L [id number] #### LAB [address] [address] Ivan Rizvi M.D. [id number] Basophils/100 WBC (Bld) 0.7 % Normal [facility] Comment on above: Performed By: #### L [id number] #### LAB [address] [address] Ivan Rizvi M.D. [id number] Eosinophils (Bld) [#/Vol] 0.33 10*3/uL Normal 0.00-0.50 [facility] Comment on above: Performed By: #### L [id number] #### LAB [address] [place] [address] Ivan Rizvi M.D. [id number] Eosinophils/100 WBC (Bld) 4.8 % Normal [facility] Comment on above: Performed By: #### L [id number] #### LAB [address] [address] Ivan Rizvi M.D. [id number] Erythrocyte distribution width (RBC) [Ratio] 14.8 % Normal 11.6-14.8 [facility] Comment on above: Performed By: #### L [id number] #### LAB [address] [place] [address] Ivan Rizvi M.D. [id number] Hematocrit (Bld) [Volume fraction] 38.3 % Normal 36.0-46.0 [facility] Comment on above: Performed By: #### L [id number] #### LAB [address] [address] Ivan Rizvi M.D. [id number] Hemoglobin (Bld) [Mass/Vol] 12.5 g/dL Normal 12.0-16.0 [facility] Comment on above: Performed By: #### L [id number] #### LAB [address] [address] Ivan Rizvi M.D. [id number] IG ABSOLUTE 0.04 K/mcL Normal 0.00-0.30 [facility] Comment on above: Performed By: #### L [id number] #### LAB [address] [address] Ivan Rizvi M.D. [id number] IG PERCENT 0.60 % Normal [facility] Comment on above: Result Comment: The IG parameter is the percentage of metamyelocytes, myelocytes and promyelocytes. An immature granulocyte count (IG) of 1% or more suggests the possibility of infection, an IG count of 3% is very likely related to an infection. Performed By: #### L [id number] #### LAB [address] [address] Ivan Rizvi M.D. [id number] Lymphocytes (Bld) [#/Vol] 1.74 10*3/uL Normal 0.90-4.00 [facility] Comment on above: Performed By: #### L [id number] #### LAB [address] [address] Ivan Rizvi M.D. [id number] Lymphocytes/100 WBC (Bld) 25.5 % Normal [facility] Comment on above: Performed By: #### L [id number] #### LAB [address] [address] Ivan Rizvi M.D. [id number] MCH (RBC) [Entitic mass] 28.7 pg Normal 26.0-34.0 [facility] Comment on above: Performed By: #### L [id number] #### LAB [address] [address] Ivan Rizvi M.D. [id number] MCV (RBC) [Entitic vol] 87.8 fL Normal 80.0-100.0 [facility] Comment on above: Performed By: #### L [id number] #### LAB [address] [address] Ivan Rizvi M.D. [id number] MEAN CORPUSCULAR HEMOGLOBIN CONC 32.6 g/dL Normal 31.0-37.0 [facility] Comment on above: Performed By: #### L [id number] #### LAB [address] [address] Ivan Rizvi M.D. [id number] Monocytes (Bld) [#/Vol] 0.56 10*3/uL Normal 0.30-0.90 [facility] Comment on above: Performed By: #### L [id number] #### LAB [address] [address] Ivan Rizvi M.D. [id number] Monocytes/100 WBC (Bld) 8.2 % Normal [facility] Comment on above: Performed By: #### L [id number] #### LAB [address] [address] Ivan Rizvi M.D. [id number] NEUTROPHILS ABSOLUTE COUNT 4.10 K/mcL Normal 1.70-7.00 [facility] Comment on above: Performed By: #### L [id number] #### LAB [address] [address] Ivan Rizvi M.D. [id number] Neutrophils/100 WBC (Bld) 60.2 % Normal [facility] Comment on above: Performed By: #### L [id number] #### MH LAB [address] [address] Ivan Rizvi M.D. [id number] Platelet mean volume (Bld) [Entitic vol] 9.5 fL Normal 9.4-12.4 [facility] Comment on above: Performed By: #### L [id number] #### MH LAB [address] [address] Ivan Rizvi M.D. [id number] Platelets (Bld) [#/Vol] 309 10*3/uL Normal 150-400 [facility] Comment on above: Performed By: #### L [id number] #### MH LAB [address] [address] Ivan Rizvi M.D. [id number] RBC (Bld) [#/Vol] 4.36 10*6/uL Normal 4.00-5.20 [facility] Comment on above: Performed By: #### L [id number] #### MH LAB [address] [address] Ivan Rizvi M.D. [id number] WBC (Bld) [#/Vol] 6.82 10*3/uL Normal 4.50-11.00 [facility] Comment on above: Performed By: #### L [id number] #### MH LAB [address] [address] Ivan Rizvi M.D. [id number] COMPREHENSIVE METABOLIC PANE Colin 05-23-2024 Albumin [Mass/Vol] 3.6 g/dL Normal 3.2-5.2 [facility] Comment on above: Order Comment: [facility] has implemented the eGFR calculation approach that does not have a coefficient for race that conforms to the NKF-ASN Task Force Recommendations. Performed By: #### 4 6126 ####MH LAB [address] [address] Ivan Rizvi M.D. [id number] ALP [Catalytic activity/Vol] 77 U/L Normal 40-140 [facility] Comment on above: Order Comment: [facility] has implemented the eGFR calculation approach that does not have a coefficient for race that conforms to the NKF-ASN Task Force Recommendations. Performed By: #### 4 6126 ####MH LAB [address] [address] Ivan Rizvi M.D. [id number] ALT [Catalytic activity/Vol] 22 U/L Normal 0-35 U/L [facility] Comment on above: Order Comment: [facility] has implemented the eGFR calculation approach that does not have a coefficient for race that conforms to the NKF-ASN Task Force Recommendations. Performed By: #### 4 6126 #### LAB [address] [address] Ivan Rizvi M.D. [id number] Anion gap [Moles/Vol] 14 mmol/L Normal 10-20 [facility] Comment on above: Order Comment: [facility] has implemented the eGFR calculation approach that does not have a coefficient for race that conforms to the NKF-ASN Task Force Recommendations. Performed By: #### 4 6126 #### LAB [address] [address] Ivan Rizvi M.D. [id number] AST [Catalytic activity/Vol] 19 U/L Normal 0-35 U/L [facility] Comment on above: Order Comment: [facility] has implemented the eGFR calculation approach that does not have a coefficient for race that conforms to the NKF-ASN Task Force Recommendations. Performed By: #### 4 6126 #### LAB [address] [address] Ivan Rizvi M.D. [id number] Bilirubin [Mass/Vol] 0.3 mg/dL Normal 0.0-1.3 [facility] Comment on above: Order Comment: [facility] has implemented the eGFR calculation approach that does not have a coefficient for race that conforms to the NKF-ASN Task Force Recommendations. Performed By: #### 4 6126 #### LAB [address] [address] Ivan Rizvi M.D. [id number] Calcium [Mass/Vol] 8.8 mg/dL Normal 8.4-10.2 [facility] Comment on above: Order Comment: [facility] has implemented the eGFR calculation approach that does not have a coefficient for race that conforms to the NKF-ASN Task Force Recommendations. Performed By: #### 4 6126 #### LAB [address] [address] Ivan Rizvi M.D. [id number] Chloride [Moles/Vol] 108 mmol/L Normal 98-108 [facility] Comment on above: Order Comment: [facility] has implemented the eGFR calculation approach that does not have a coefficient for race that conforms to the NKF-ASN Task Force Recommendations. Performed By: #### 4 6126 #### LAB [address] [address] Ivan Rizvi M.D. [id number] Creatinine [Mass/Vol] 0.45 mg/dL Normal 0.40-1.10 [facility] Comment on above: Order Comment: [facility] has implemented the eGFR calculation approach that does not have a coefficient for race that conforms to the NKF-ASN Task Force Recommendations. Performed By: #### 4 6126 #### LAB [address] [address] Ivan Rizvi M.D. [id number] EGFR 135 mL/min/1.73 m2 Normal >=60 [facility] Comment on above: Order Comment: [facility] has implemented the eGFR calculation approach that does not have a coefficient for race that conforms to the NKF-ASN Task Force Recommendations. Result Comment: Oskar mated GFR was calculated using the 2020 CKD-EPI creatinine equation. Performed By: #### 4 6126 #### LAB [address] [address] Ivan Rizvi M.D. [id number] Glucose [Mass/Vol] 102 mg/dL High 65-99 [facility] Comment on above: Order Comment: [facility] has implemented the eGFR calculation approach that does not have a coefficient for race that conforms to the NKF-ASN Task Force Recommendations. Performed By: #### 4 6126 #### LAB [address] [address] Ivan Rizvi M.D. [id number] HCO3 (Bld) [Moles/Vol] 21 mmol/L Normal 21-32 [facility] Comment on above: Order Comment: [facility] has implemented the eGFR calculation approach that does not have a coefficient for race that conforms to the NKF-ASN Task Force Recommendations. Performed By: #### 4 6126 #### LAB [address] [address] Ivan Rizvi M.D. [id number] Potassium [Moles/Vol] 3.8 mmol/L Normal 3.5-5.1 [facility] Comment on above: Order Comment: [facility] has implemented the eGFR calculation approach that does not have a coefficient for race that conforms to the NKF-ASN Task Force Recommendations. Performed By: #### 4 6126 #### LAB [address] [address] Ivan Rizvi M.D. [id number] Protein [Mass/Vol] 6.3 g/dL Normal 6.0-8.0 [facility] Comment on above: Order Comment: [facility] has implemented the eGFR calculation approach that does not have a coefficient for race that conforms to the NKF-ASN Task Force Recommendations. Performed By: #### 4 6126 #### LAB [address] [address] Ivan Rizvi M.D. [id number] Sodium [Moles/Vol] 139 mmol/L Normal 135-145 [facility] Comment on above: Order Comment: [facility] has implemented the eGFR calculation approach that does not have a coefficient for race that conforms to the NKF-ASN Task Force Recommendations. Performed By: #### 4 6126 ####[facility] LAB [address] [address] Ivan Rizvi M.D. [id number] Urea nitrogen [Mass/Vol] 5 mg/dL Low 8-25 [facility] Comment on above: Order Comment: [facility] has implemented the eGFR calculation approach that does not have a coefficient for race that conforms to the NKF-ASN Task Force Recommendations. Performed By: #### 4 6126 ####[facility] LAB [address] [place], [place] [address] Ivan Rizvi M.D. [id number] Urea nitrogen/Creatinine [Mass ratio] 11.1 mg/mg Normal 10.0-20.0 [facility] Comment on above: Order Comment: [facility] has implemented the eGFR calculation approach that does not have a coefficient for race that conforms to the NKF-ASN Task Force Recommendations. Performed By: #### 4 6126 ####[facility] LAB [address] [place], [place] [address] Ivan Rizvi M.D. [id number] CT ANGIO CHEST FOR PULMONARY EMBOLISMon 05-23-2024 CT ANGIO CHEST FOR PULMONARY EMBOLISM Interpreted By: Roberto Ortiz, STUDY: CT ANGIO CHEST FOR PULMONARY EMBOLISM; 05/23/2024 1:48 am INDICATION: Signs/Symptoms:pain. COMPARISON: Chest radiograph 05/22/2024 ACCESSION NUMBER(S): [id number] ORDERING CLINICIAN: MARIELA SCHULZ TECHNIQUE: Axial CTA [...] Normal size. No pericardial effusion. MEDIASTINUM AND MARGARITA: No pathologically enlarged thoracic lymph nodes. LUNG, PLEURA, LARGE AIRWAYS: Patchy right basilar airspace opacity. No pleural effusion. BONES: No acute osseous abnormality. IMPRESSION: No acute pulmonary embolus to the segmental level. Patchy right basilar airspace opacity most compatible with pneumonia. MACRO: None. Signed by: Roberto Ortiz 05/23/2024 1:56 AM Dictation workstation: [id number] [facility] CT Chest W contrast IV and C T angiogram Pulmonary arteries for pulmonary embolus W contrast Jeevan 05-23-2024 No acute pulmonary e mbolus to the segmental level. Patchy right basilar airspace opacity most compatible with pneumonia. MACRO: None. Signed by: Roberto Ortiz 05/23/2024 1:56 AM Dictation workstation: [id number] [facility] Interpreted By: Roberto Ortiz, STUDY: CT ANGIO CHEST FOR PULMONARY EMBOLISM; 05/23/2024 1:48 am INDICATION: Signs/Symptoms:pain. COMPARISON: Chest radiograph 05/22/2024 ACCESSION NUMBER(S): [id number] ORDERING CLINICIAN: MARIELA SCHULZ TECHNIQUE: Axial CTA [...] Normal size. No pericardial effusion. MEDIASTINUM AND MARGARITA: No pathologically enlarged thoracic lymph nodes. LUNG, PLEURA, LARGE AIRWAYS: Patchy right basilar airspace opacity. No pleural effusion. BONES: No acute osseous abnormality. MMODAL Roberto Ortiz MD - 05/23/2024 Interpreted By: Roberto Ortiz, STUDY: CT ANGIO CHEST FOR PULMONARY EMBOLISM; 05/23/2024 1:48 am INDICATION: Signs/Symptoms:pain. COMPARISON: Chest radiograph 05/22/2024 ACCESSION NUMBER(S): [id number] ORDERING CLINICIAN: MARIELA SCHULZ TECHNIQUE: Axial CTA [...] Normal size. No pericardial effusion. MEDIASTINUM AND MARGARITA: No pathologically enlarged thoracic lymph nodes. LUNG, PLEURA, LARGE AIRWAYS: Patchy right basilar airspace opacity. No pleural effusion. BONES: No acute osseous abnormality. IMPRESSION: No acute pulmonary embolus to the segmental level. Patchy right basilar airspace opacity most compatible with pneumonia. MACRO: None. Signed by: Roberto Ortiz 05/23/2024 1:56 AM Dictation workstation: [id number] [facility] Work Phone: Radiology Study observation (narrative) [facility] Work Phone: CT Chest W contrast IV and C T angiogram Pulmonary arteries for pulmonary embolus W contrast IVOrdered By: Roberto Ortiz on 05-23-2024 [facility] [facility] Work Phone: HCG, BLOOD, QUANTITATIVEon 1 HCG, QUANTITATIVE < Normal 0-5 [facility] Comment on above: Order Comment: Males and non females: <5 mIU/mLFemales during :3-4 weeks 9-130 mIU/mL4-5 weeks 75-2600 mIU/mL5-6 weeks 850-20,800 mIU/mL6-7 weeks 4000-100,200 mIU/mL7-12 weeks 11,500-289,000 mIU/mL12-16 weeks 18,300-137,000 mIU/mL16-29 weeks 1,400-53,000 mIU/mL29-41 weeks 940-60,000 mIU/mL Performed By: #### 4 5827 ####[facility] [address] [place] [address] Ivan Rizvi M.D. [id number] Lactateon 05-23-2024 Lactate [Moles/Vol] 2.1 mmol/L High 0.4 - 2. 0 mmol/L [facility] Lactate [Moles/Vol] 2.1 mmol/L High 0.4-2.0 [facility] Comment on above: Order Comment: Venip uncture immediately after or during the administration of Metamizole may lead to falsely low results. Testing should be performed immediately prior to Metamizole dosing. Performed By: #### 2 524-7 #### BECKMNA RICH ([id number]) [facility] ([facility]) [address] [place] [address] Lactate [Moles/Vol]on 2023 Interpretation and review of laboratory results Abnormal [facility] Venipuncture immedia tely after or during the administration of Metamizole may lead to falsely low results. Testing should be performed immediately prior to Metamizole dosing. [facility] MAGNESIUM LEVELon 05-23-2024 Magnesium [Mass/Vol] 2.1 mg/dL Normal 1.6-2.4 [facility] Comment on above: Performed By: #### 4 6109 #### LAB [address] [address] Ivan Rizvi M.D. [id number] PHOSPHORUSon 05-23-2024 Phosphate [Mass/Vol] 3.5 mg/dL Normal 2.7-4.5 [facility] Comment on above: Performed By: #### 4 6299 #### LAB [address] [address] Ivan Rizvi M.D. [id number] PROCALCITONINon 05-23-2024 PROCALCITONIN < Normal <0.50 [facility] Comment on above: Order Comment: Resul ts <0.50 ng/ml represent a low risk of severe sepsis and/or septic shock. Performed By: #### 4 7652 #### LAB [address] [address] Ivan Rizvi M.D. [id number] RESPIRATORY PCR PANELon 05-09 RESPIRATORY PCR PANEL [...] SARS-COV-2 (BIOFIRE) Not Detected Normal Not Detected [facility] Comment on above: Performed By: #### L [id number] #### [facility] [address] [address] Keyshawn Monzon M.D. [id number] S.PNEUMONIAE URINE ANTIGENon 05-23-2024 S.PNEUMONIAE URINE ANTIGEN STREP PNEUMONIAE ANTIGEN, URINE Presumptive Negative for Pneumococcal pneumoniae A negative result suggests no current or recent pneumococcal infection. A negative result does not rule out Streptococcus pneumoniae infection since the antigen present in the sample may be below the detection limit of the test. Normal [facility] Comment on above: Performed By: #### 4 7222 #### LAB [address] [address] Ivan Rizvi M.D. [id number] URINALYSISon 05-23-2024 BACTERIA, URINE None Seen Normal None Seen [facility] Comment on above: Order Comment: Micro scopic examination is performed on all urinalysis samples and only positive findings are reported. The test for blood on the chemical analytic portion of urinalysis may also be positive due to hemoglobinuria and myoglobinuria and if red blood cells are present they are quantified by microscopic examination. Performed By: #### 4 6625 #### LAB [address] [place] [address] Ivan Rizvi M.D. [id number] BILIRUBIN, URINE Negative Normal Negative [facility] Comment on above: Order Comment: Micro scopic examination is performed on all urinalysis samples and only positive findings are reported. The test for blood on the chemical analytic portion of urinalysis may also be positive due to hemoglobinuria and myoglobinuria and if red blood cells are present they are quantified by microscopic examination. Performed By: #### 4 6625 #### LAB [address] [address] Ivan Rizvi M.D. [id number] BLOOD, URINE Small Abnormal Negative [facility] Comment on above: Order Comment: Micro scopic examination is performed on all urinalysis samples and only positive findings are reported. The test for blood on the chemical analytic portion of urinalysis may also be positive due to hemoglobinuria and myoglobinuria and if red blood cells are present they are quantified by microscopic examination. Performed By: #### 4 6625 #### LAB [address] [address] Ivan Rizvi M.D. [id number] Clarity (U) Clear Normal Clear [facility] Comment on above: Order Comment: Micro scopic examination is performed on all urinalysis samples and only positive findings are reported. The test for blood on the chemical analytic portion of urinalysis may also be positive due to hemoglobinuria and myoglobinuria and if red blood cells are present they are quantified by microscopic examination. Performed By: #### 4 6625 #### LAB [address] [address] Ivan Rizvi M.D. [id number] Color (U) Colorless Normal Colorless, Yellow [facility] Comment on above: Order Comment: Micro scopic examination is performed on all urinalysis samples and only positive findings are reported. The test for blood on the chemical analytic portion of urinalysis may also be positive due to hemoglobinuria and myoglobinuria and if red blood cells are present they are quantified by microscopic examination. Performed By: #### 4 6625 #### LAB [address] [address] Ivan Rizvi M.D. [id number] Glucose Ql (U) Negative Normal Negative [facility] Comment on above: Order Comment: Micro scopic examination is performed on all urinalysis samples and only positive findings are reported. The test for blood on the chemical analytic portion of urinalysis may also be positive due to hemoglobinuria and myoglobinuria and if red blood cells are present they are quantified by microscopic examination. Performed By: #### 4 6625 #### LAB [address] [address] Ivan Rizvi M.D. [id number] Ketones Ql (U) Negative Normal Negative [facility] Comment on above: Order Comment: Micro scopic examination is performed on all urinalysis samples and only positive findings are reported. The test for blood on the chemical analytic portion of urinalysis may also be positive due to hemoglobinuria and myoglobinuria and if red blood cells are present they are quantified by microscopic examination. Performed By: #### 4 6625 #### LAB [address] [address] Ivan Rizvi M.D. [id number] Leukocyte esterase Test strip Ql (U) Negative Normal Negative [facility] Comment on above: Order Comment: Micro scopic examination is performed on all urinalysis samples and only positive findings are reported. The test for blood on the chemical analytic portion of urinalysis may also be positive due to hemoglobinuria and myoglobinuria and if red blood cells are present they are quantified by microscopic examination. Performed By: #### 4 6625 #### LAB [address] [address] Ivan Rizvi M.D. [id number] MUCUS, URINE Rare Normal None Seen, Rare [facility] Comment on above: Order Comment: Micro scopic examination is performed on all urinalysis samples and only positive findings are reported. The test for blood on the chemical analytic portion of urinalysis may also be positive due to hemoglobinuria and myoglobinuria and if red blood cells are present they are quantified by microscopic examination. Performed By: #### 4 6625 #### LAB [address] [address] Ivan Rizvi M.D. [id number] NITRITE, URINE Negative Normal Negative [facility] Comment on above: Order Comment: Micro scopic examination is performed on all urinalysis samples and only positive findings are reported. The test for blood on the chemical analytic portion of urinalysis may also be positive due to hemoglobinuria and myoglobinuria and if red blood cells are present they are quantified by microscopic examination. Performed By: #### 4 6625 #### LAB [address] [address] Ivan Rizvi M.D. [id number] pH (U) 6.5 [pH] Normal 5.0-7.0 [facility] Comment on above: Order Comment: Micro scopic examination is performed on all urinalysis samples and only positive findings are reported. The test for blood on the chemical analytic portion of urinalysis may also be positive due to hemoglobinuria and myoglobinuria and if red blood cells are present they are quantified by microscopic examination. Performed By: #### 4 6625 #### LAB [address] [address] Ivan Rizvi M.D. [id number] PROTEIN, URINE Negative Normal Negative [facility] Comment on above: Order Comment: Micro scopic examination is performed on all urinalysis samples and only positive findings are reported. The test for blood on the chemical analytic portion of urinalysis may also be positive due to hemoglobinuria and myoglobinuria and if red blood cells are present they are quantified by microscopic examination. Performed By: #### 4 6625 #### LAB [address] [address] Ivan Rizvi M.D. [id number] RBC LM.HPF (Urine sed) [#/Area] 1 /[HPF] Normal 0-3 [facility] Comment on above: Order Comment: Micro scopic examination is performed on all urinalysis samples and only positive findings are reported. The test for blood on the chemical analytic portion of urinalysis may also be positive due to hemoglobinuria and myoglobinuria and if red blood cells are present they are quantified by microscopic examination. Performed By: #### 4 6625 #### LAB [address] [address] Ivan Rizvi M.D. [id number] Specific gravity (U) [Rel density] 1.011 Normal 1.005-1.025 [facility] Comment on above: Order Comment: Micro scopic examination is performed on all urinalysis samples and only positive findings are reported. The test for blood on the chemical analytic portion of urinalysis may also be positive due to hemoglobinuria and myoglobinuria and if red blood cells are present they are quantified by microscopic examination. Performed By: #### 4 6625 #### LAB [address] [address] Ivan Rizvi M.D. [id number] SQUAMOUS EPITHELIAL 2 /hpf Normal 0-4 [facility] Comment on above: Order Comment: Micro scopic examination is performed on all urinalysis samples and only positive findings are reported. The test for blood on the chemical analytic portion of urinalysis may also be positive due to hemoglobinuria and myoglobinuria and if red blood cells are present they are quantified by microscopic examination. Performed By: #### 4 6625 #### LAB [address] [place], [place] [address] Ivan Rizvi M.D. [id number] UROBILINOGEN, URINE <2.0 Normal <2.0 [facility] Comment on above: Order Comment: Micro scopic examination is performed on all urinalysis samples and only positive findings are reported. The test for blood on the chemical analytic portion of urinalysis may also be positive due to hemoglobinuria and myoglobinuria and if red blood cells are present they are quantified by microscopic examination. Performed By: #### 4 6625 #### LAB [address] [place], [place] [address] Ivan Rizvi M.D. [id number] WBC LM.HPF (Urine sed) [#/Area] 1 /[HPF] Normal 0-5 [facility] Comment on above: Order Comment: Micro scopic examination is performed on all urinalysis samples and only positive findings are reported. The test for blood on the chemical analytic portion of urinalysis may also be positive due to hemoglobinuria and myoglobinuria and if red blood cells are present they are quantified by microscopic examination. Performed By: #### 4 6625 #### LAB [address] [place], [place] [address] Ivan Rizvi M.D. [id number] Bacteria identifiedon 2023 Bacteria identified Cx Nom (Bld) Test: Blood Culture Specimen Source: Peripheral Venipuncture Specimen Type: Blood culture Specimen Date: 05/22/20242239 Result Date: 05/27/2024 120 Result Status: Final result Abnormal: No Resulting Lab: [facility] [address] [place] [address] CULTURE No growth at 4 days - FINAL REPORT [facility] Comment on above: Performed By: #### 6 00-7 #### FAISAL Chery ([id number]) [facility] ([facility]) [address] [place] [address] Bacteria identified Cx Nom (Bld) Test: Blood Culture Specimen Source: Peripheral Venipuncture Specimen Type: Blood culture Specimen Date: 05/22/20242235 Result Date: 05/27/2024 1201 Result Status: Final result Abnormal: No Resulting Lab: [facility] [address] [facility] [address] CULTURE No growth at 4 days - FINAL REPORT Normal [facility] Comment on above: Performed By: #### 6 00-7 #### FAISAL Chery ([id number]) [facility] ([facility]) [address] [id number] CBC W Auto Differential pane l (Bld)on 05-22-2024 Basophils (Bld) [#/Vol] 0.05 10*3/uL [facility] Basophils/100 WBC (Bld) 0.5 % 0.0 - 2.0 % [facility] Eosinophils (Bld) [#/Vol] 0.10 10*3/uL [facility] Eosinophils/100 WBC (Bld) 1.0 % 0.0 - 6.0 % [facility] Erythrocyte distribution width (RBC) [Ratio] 14.3 % 11.5 - 14.5 % [facility] Hematocrit (Bld) [Volume fraction] 40.4 % 36.0 - 46.0 % [facility] Hemoglobin (Bld) [Mass/Vol] 13.3 g/dL 12.0 - 16.0 g/dL [facility] Immature granulocytes (Bld) [#/Vol] 0.05 10*3/uL [facility] Immature granulocytes/100 WBC (Bld) 0.5 % 0.0 - 0.9 % [facility] Comment on above: Immature Granulocyte Count (IG) includes promyelocytes, myelocytes and metamyelocytes but does not include bands. Percent differential counts (%) should be interpreted in the context of the absolute cell counts (cells/UL). Interpretation and review of laboratory results Abnormal [facility] Lymphocytes (Bld) [#/Vol] 1.46 10*3/uL [facility] Lymphocytes/100 WBC (Bld) 14.0 % 13.0 - 44.0 % [facility] MCH (RBC) [Entitic mass] 29.2 pg 26.0 - 34.0 pg [facility] MCHC (RBC) [Mass/Vol] 32.9 g/dL 32.0 - 36.0 g/dL [facility] MCV (RBC) [Entitic vol] 89 fL 80 - 100 fL [facility] Monocytes (Bld) [#/Vol] 0.37 10*3/uL [facility] Monocytes/100 WBC (Bld) 3.6 % 2.0 - 10.0 % [facility] Neutrophils (Bld) [#/Vol] 8.39 10*3/uL High [facility] Comment on above: Percent differential counts (%) should be interpreted in the context of the absolute cell counts (cells/uL). Neutrophils/100 WBC (Bld) 80.4 % 40.0 - 80.0 % [facility] Nucleated RBC/100 WBC (Bld) [Ratio] 0.0 % [facility] Platelets (Bld) [#/Vol] 362 10*3/uL [facility] RBC (Bld) [#/Vol] 4.55 10*6/uL [facility] WBC (Bld) [#/Vol] 10.4 10*3/uL [facility] Basophils (Bld) [#/Vol] 0.05 x10*3/uL Normal 0.00-0.10 [facility] Comment on above: Performed By: #### 5 7021-8 #### KARUNA VILLANUEVA ([id number]) [facility] ([facility]) [address] [place] [address] Basophils/100 WBC (Bld) 0.5 % Normal 0.0-2.0 [facility] Comment on above: Performed By: #### 5 7021-8 #### KARUNA VILLANUEVA ([id number]) [facility] ([facility]) [address] [place] [address] Eosinophils (Bld) [#/Vol] 0.10 x10*3/uL Normal 0.00-0.70 [facility] Comment on above: Performed By: #### 5 7021-8 #### KARUNA VILLANUEVA ([id number]) [facility] ([facility]) [address] [place] [address] Eosinophils/100 WBC (Bld) 1.0 % Normal 0.0-6.0 [facility] Comment on above: Performed By: #### 5 7021-8 #### KARUNA VILLANUEVA ([id number]) [facility] ([facility]) [address] [place] [address] Erythrocyte distribution width (RBC) [Ratio] 14.3 % Normal 11.5-14.5 [facility] Comment on above: Performed By: #### 5 7021-8 #### KARUNA VILLANUEVA ([id number]) [facility] ([facility]) [address] [place] [address] Hematocrit (Bld) [Volume fraction] 40.4 % Normal 36.0-46.0 [facility] Comment on above: Performed By: #### 5 7021-8 #### KARUNA VILLANUEVA ([id number]) [facility] ([facility]) [address] [place] [address] Hemoglobin (Bld) [Mass/Vol] 13.3 g/dL Normal 12.0-16.0 [facility] Comment on above: Performed By: #### 5 7021-8 #### KARUNA IVLLANUEVA ([id number]) [facility] ([facility]) [address] [place] [address] Immature granulocytes (Bld) [#/Vol] 0.05 x10*3/uL Normal 0.00-0.70 [facility] Comment on above: Performed By: #### 5 7021-8 #### KARUNA VILLANUEVA ([id number]) [facility] ([facility]) [address] [place] [address] Immature granulocytes/100 WBC (Bld) 0.5 % Normal 0.0-0.9 [facility] Comment on above: Result Comment: Karen ture Granulocyte Count (IG) includes promyelocytes, myelocytes and metamyelocytes but does not include bands. Percent differential counts (%) should be interpreted in the context of the absolute cell counts (cells/UL). Performed By: #### 5 7021-8 #### KARUNA VILLANUEVA ([id number]) [facility] ([facility]) [address] [place] [address] Lymphocytes (Bld) [#/Vol] 1.46 x10*3/uL Normal 1.20-4.80 [facility] Comment on above: Performed By: #### 7021-8 #### KARUNA VILLANUEVA ([id number]) [facility] ([facility]) [address] [place] [address] Lymphocytes/100 WBC (Bld) 14.0 % Normal 13.0-44.0 [facility] Comment on above: Performed By: #### 5 7021-8 #### KARUNA VILLANUEVA ([id number]) [facility] ([facility]) [address] [place] [address] MCH (RBC) [Entitic mass] 29.2 pg Normal 26.0-34.0 [facility] Comment on above: Performed By: #### 5 7021-8 #### KARUNA VILLANUEVA ([id number]) [facility] ([facility]) [address] [place] [address] MCHC (RBC) [Mass/Vol] 32.9 g/dL Normal 32.0-36.0 [facility] Comment on above: Performed By: #### 5 7021-8 #### KARUNA VILLANUEVA ([id number]) [facility] ([facility]) [address] [place] [address] MCV (RBC) [Entitic vol] 89 fL Normal 80-100 [facility] Comment on above: Performed By: #### 5 7021-8 #### KARUNA VILLANUEVA ([id number]) [facility] ([facility]) [address] [place] [address] Monocytes (Bld) [#/Vol] 0.37 x10*3/uL Normal 0.10-1.00 [facility] Comment on above: Performed By: #### 5 7021-8 #### KARUNA VILLANUEVA ([id number]) [facility] ([facility]) [address] [place] [address] Monocytes/100 WBC (Bld) 3.6 % Normal 2.0-10.0 [facility] Comment on above: Performed By: #### 5 7021-8 #### KARUNA VILLANUEVA ([id number]) [facility] ([facility]) [address] [place] [address] Neutrophils (Bld) [#/Vol] 8.39 x10*3/uL High 1.20-7.70 [facility] Comment on above: Result Comment: Perc ent differential counts (%) should be interpreted in the context of the absolute cell counts (cells/uL). Performed By: #### 5 7021-8 #### KARUNA VILLANUEVA ([id number]) [facility] ([facility]) [address] [place] [address] Neutrophils/100 WBC (Bld) 80.4 % Normal 40.0-80.0 [facility] Comment on above: Performed By: #### 5 7021-8 #### KARUNA VILLANUEVA ([id number]) [facility] ([facility]) [address] [place] [address] Nucleated RBC/100 WBC (Bld) [Ratio] 0.0 /100 WBCs Normal 0.0-0.0 [facility] Comment on above: Performed By: #### 5 7021-8 #### KARUNA VILLANUEVA ([id number]) [facility] ([facility]) [address] [place] [address] Platelets (Bld) [#/Vol] 362 x10*3/uL Normal 150-450 [facility] Comment on above: Performed By: #### 5 7021-8 #### KARUNA VILLANUEVA ([id number]) [facility] ([facility]) [address] [place] [address] RBC (Bld) [#/Vol] 4.55 x10*6/uL Normal 4.00-5.20 [facility] Comment on above: Performed By: #### 5 7021-8 #### KARUNA RICH ([id number]) [facility] ([facility]) [address] [place] [address] WBC (Bld) [#/Vol] 10.4 x10*3/uL Normal 4.4-11.3 [facility] Comment on above: Performed By: #### 5 7021-8 #### BECKMAN RICH ([id number]) [facility] ([facility]) [address] [place] [address] Comprehensive metabolic 2000 panelon 05-22-2024 Albumin BCP dye [Mass/Vol] 3.8 g/dL 3.4 - 5.0 g/dL [facility] ALP [Catalytic activity/Vol] 61 U/L 33 - 110 U/L [facility] ALT With P-5'-P [Catalytic activity/Vol] 26 U/L 7 - 45 U/L [facility] Comment on above: Patients treated wit h Sulfasalazine may generate falsely decreased results for ALT. Anion gap [Moles/Vol] 13 mmol/L 10 - 2 0 mmol/L [facility] AST With P-5'-P [Catalytic activity/Vol] 15 U/L 9 - 39 U/L [facility] Bilirubin [Mass/Vol] 0.4 mg/dL 0.0 - 1 .2 mg/dL [facility] Calcium [Mass/Vol] 8.7 mg/dL 8.6 - 10. 3 mg/dL [facility] Chloride [Moles/Vol] 104 mmol/L 98 - 10 7 mmol/L [facility] CO2 [Moles/Vol] 25 mmol/L 21 - 32 mmol/L [facility] Creatinine [Mass/Vol] 0.56 mg/dL 0.50 - 1.05 mg/dL [facility] eGFR - PINF [facility] Comment on above: Calculations of oskar mated GFR are performed using the 2020 CKD-EPI Study Refit equation without the race variable for the IDMS-Traceable creatinine methods. https://jasn.asnjournals.org/content//ASN.03095 05181 Glucose [Mass/Vol] 106 mg/dL High 74 - 99 mg/dL [facility] Interpretation and review of laboratory results Abnormal [facility] Potassium [Moles/Vol] 3.0 mmol/L Low 3.5 - 5.3 mmol/L [facility] Protein [Mass/Vol] 7.0 g/dL 6.4 - 8.2 g/dL [facility] Sodium [Moles/Vol] 139 mmol/L 136 - 145 mmol/L [facility] Urea nitrogen [Mass/Vol] 10 mg/dL 6 - 23 mg/dL [facility] Albumin BCP dye [Mass/Vol] 3.8 g/dL Normal 3.4-5.0 [facility] Comment on above: Performed By: #### 2 4323-8 #### KARUNA VILLANUEVA ([id number]) [facility] ([facility]) [address] [place] [address] ALP [Catalytic activity/Vol] 61 U/L Normal 33-110 [facility] Comment on above: Performed By: #### 2 4323-8 #### KARUNA VILLANUEVA ([id number]) [facility] ([facility]) [facility] [place] [address] ALT With P-5'-P [Catalytic activity/Vol] 26 U/L Normal 7-45 [facility] Comment on above: Result Comment: Joy ents treated with Sulfasalazine may generate falsely decreased results for ALT. Performed By: #### 2 4323-8 #### KARUNA VILLANUEVA ([id number]) [facility] ([facility]) [address] [place] [address] Anion gap [Moles/Vol] 13 mmol/L Normal 10-20 [facility] Comment on above: Performed By: #### 2 4323-8 #### KARUNA VILLANUEVA ([id number]) [facility] ([facility]) [address] [place] [address]5821 AST With P-5'-P [Catalytic activity/Vol] 15 U/L Normal 9-39 [facility] Comment on above: Performed By: #### 2 4323-8 #### KARUNA VILLANUEVA ([id number]) [facility] ([facility]) [address] [place] [address] Bilirubin [Mass/Vol] 0.4 mg/dL Normal 0.0-1.2 [facility] Comment on above: Performed By: #### 2 4323-8 #### KARUNA VILLANUEVA ([id number]) [facility] ([facility]) [address] [place] [address] Calcium [Mass/Vol] 8.7 mg/dL Normal 8.6-10.3 [facility] Comment on above: Performed By: #### 2 4323-8 #### KARUNA VILLANUEVA ([id number]) [facility] ([facility]) [address] [place] [address] Chloride [Moles/Vol] 104 mmol/L Normal 98-107 [facility] Comment on above: Performed By: #### 2 4323-8 #### KARUNA VILLANUEVA ([id number]) [facility] ([facility]) [address] [place] [address] CO2 [Moles/Vol] 25 mmol/L Normal 21-32 [facility] Comment on above: Performed By: #### 2 4323-8 #### KARUNA VILLANUEVA ([id number]) [facility] ([facility]) [facility] [place] [address] Creatinine [Mass/Vol] 0.56 mg/dL Normal 0.50-1.05 [facility] Comment on above: Performed By: #### 2 4323-8 #### KARUNA VILLANUEVA ([id number]) [facility] ([facility]) [facility] [place] [address] GFR/1.73 sq M.predicted MDRD (S/P/Bld) [Vol rate/Area] mL/min/{1.73_m2} Normal >60 [facility] Comment on above: Result Comment: Calc ulations of estimated GFR are performed using the 2020 CKD-EPI Study Refit equation without the race variable for the IDMS-Traceable creatinine methods. https://jasn.asnjournals.org/content/early/ASN.01482 71617 Performed By: #### 2 4323-8 #### KARUNA VILLANUEVA ([id number]) [facility] ([facility]) [address] [place] [address] Glucose [Mass/Vol] 106 mg/dL High 74-99 [facility] Comment on above: Performed By: #### 2 4323-8 #### KARUNA VILLANUEVA ([id number]) [facility] ([facility]) [address] [place] [address] 18432 Potassium [Moles/Vol] 3.0 mmol/L Low 3.5-5.3 [facility] Comment on above: Performed By: #### 2 4323-8 #### KARUNA VILLANUEVA ([id number]) [facility] ([facility]) [address] [place] [address] Protein [Mass/Vol] 7.0 g/dL Normal 6.4-8.2 [facility] Comment on above: Performed By: #### 2 4323-8 #### KARUNA VILLANUEVA ([id number]) [facility] ([facility]) [address] [place] [address] Sodium [Moles/Vol] 139 mmol/L Normal 136-145 [facility] Comment on above: Performed By: #### 2 4323-8 #### KARUNA VILLANUEVA ([id number]) [facility] ([facility]) [address] [place] [address] 49266 Urea nitrogen [Mass/Vol] 10 mg/dL Normal 6-23 [facility] Comment on above: Performed By: #### 2 4323-8 #### KARUNA VILLANUEVA ([id number]) [facility] ([facility]) [address] [place] [address] 85304 ECG 12-LEADon 05-22-2024 ECG 12-LEAD Ventricular Rate 120 Atrial Rate 120 P-R Interval 124 QRS Duration 70 Q-T Interval 346 QTC Calculation(Bazett) 489 P [place] 78 R [place] 65 T [place] 42 QRS Count 19 Q Onset 222 P Onset 160 P Offset 205 T Offset 395 QTC Fredericia 435 Diagnosis Sinus tachycardia Nonspecific ST abnormality Abnormal ECG No previous ECGs available See ED provider note for full interpretation and clinical correlation Confirmed by Candice Maria ([id number]) on 05/23/2024 2:43:10 PM Normal [facility] Lactateon 05-22-2024 Lactate [Moles/Vol] 2.3 mmol/L High 0.4 - 2. 0 mmol/L [facility] Lactate [Moles/Vol] 2.3 mmol/L High 0.4-2.0 [facility] Comment on above: Order Comment: Venip uncture immediately after or during the administration of Metamizole may lead to falsely low results. Testing should be performed immediately prior to Metamizole dosing. Performed By: #### 2 524-7 #### BECKMAN RICH ([id number]) [facility] ([facility]) [address] [place] [address] Lactate [Moles/Vol]on 2023 Interpretation and review of laboratory results Abnormal [facility] Venipuncture immedia tely after or during the administration of Metamizole may lead to falsely low results. Testing should be performed immediately prior to Metamizole dosing. [facility] XR CHEST 2 VIEWSon XR CHEST 2 VIEWS Interpreted By: Neva Roger, STUDY: XR CHEST 2 VIEWS; 05/22/2024 10:00 pm INDICATION: Signs/Symptoms:pneumonia. COMPARISON: None. ACCESSION NUMBER(S): [id number] ORDERING CLINICIAN: MARIELA SCHULZ FINDINGS: CARDIOMEDIASTINAL SILHOUETTE: [...] Neva Perdomo 05/22/2024 10:31 PM Dictation workstation: [id number] Normal [facility] XR Chest 2 Viewson Mild increased perih ilar opacities suggestive of developing interstitial edema. Superimposed infection not excluded. Clinical correlation and continued short-term follow-up is advised. MACRO: None Signed by: Neva Perdomo 05/22/2024 10:31 PM Dictation workstation: [id number] MMODAL Interpreted By: Neva Roger, STUDY: XR CHEST 2 VIEWS; 05/22/2024 10:00 pm INDICATION: Signs/Symptoms:pneumonia. COMPARISON: None. ACCESSION NUMBER(S): [id number] ORDERING CLINICIAN: MARIELA SCHULZ FINDINGS: CARDIOMEDIASTINAL SILHOUETTE: Cardiomediastinal silhouette is normal in size and configuration. LUNGS: Increased perihilar opacities may relate to developing interstitial edema. Superimposed infection not excluded. No consolidation, pleural effusion or pneumothorax. ABDOMEN: No remarkable upper abdominal findings. BONES: No acute osseous abnormality. MMODAL Neva Perdomo MD - 05/22/2024 Interpreted By: Neva Perdomo, STUDY: XR CHEST 2 VIEWS; 05/22/2024 10:00 pm INDICATION: Signs/Symptoms:pneumonia. COMPARISON: None. ACCESSION NUMBER(S): [id number] ORDERING CLINICIAN: MARIELA SCHULZ FINDINGS: CARDIOMEDIASTINAL SILHOUETTE: [...] Neva Perdomo 05/22/2024 10:31 PM Dictation workstation: [id number] [facility] Work Phone: Radiology Study observation (narrative) [facility] Work Phone: XR Chest 2 ViewsOrdered By: Neva Perdomo on 05-22-2024 [facility] Work Phone: COVID-19, MOLECULARon 2023 SARS-CoV-2 (COVID-19) Ab IA Ql Not detected Normal Not Detected [facility] Comment on above: Result Comment: Test ing [...] on WedMay 15, 2024 12:30:53 AM EDT [facility] Comment on above: Order Comment: Injur y/Trauma or Illness?:Illness/Other How long have you had these symptoms (acute/chronic)?:Acute Reason for exam?:cough x2 weeks, elevated d-dimer Type of Exam?:Initial Additional signs and symptoms?:none ED Prov Noteon 05-14-2024 ED Prov Note ED PROVIDER NOTE [facility] NAME: Shauna Rainey AGE: 28 y.o. : 1995 VISIT DATE: 05/14/2024 CSN: [id number] PCP: Kinjal Cleveland MD Chief Complaint Patient [...] Range S (more content not included)... Normal [facility] POC BASIC METABOLIC PANEL [facility] 05-14-2024 Chloride [Moles/Vol] 102 mmol/L Normal 98-108 [facility] Comment on above: Order Comment: [facility] has implemented the eGFR calculation approach that does not have a coefficient for race that conforms to the NKF-ASN Task Force Recommendations. CO2 [Moles/Vol] 26 mmol/L Normal 21-32 [facility] Comment on above: Order Comment: [facility] has implemented the eGFR calculation approach that does not have a coefficient for race that conforms to the NKF-ASN Task Force Recommendations. Creatinine [Mass/Vol] 0.58 mg/dL Normal 0.40-1.10 [facility] Comment on above: Order Comment: [facility] has implemented the eGFR calculation approach that does not have a coefficient for race that conforms to the NKF-ASN Task Force Recommendations. Glucose [Mass/Vol] 156 mg/dL High 65-99 [facility] Comment on above: Order Comment: [facility] has implemented the eGFR calculation approach that does not have a coefficient for race that conforms to the NKF-ASN Task Force Recommendations. POC GFR 127 mL/min/1.73 m2 Normal >=60 [facility] Comment on above: Order Comment: [facility] has implemented the eGFR calculation approach that does not have a coefficient for race that conforms to the NKF-ASN Task Force Recommendations. Result Comment: Oskar mated GFR was calculated using the 2020 CKD-EPI creatinine equation. POC IONIZED CALCIUM 4.5 mg/dL Normal 4.5-5.3 [facility] Comment on above: Order Comment: [facility] has implemented the eGFR calculation approach that does not have a coefficient for race that conforms to the NKF-ASN Task Force Recommendations. Potassium [Moles/Vol] 3.0 mmol/L Low 3.5-5.1 [facility] Comment on above: Order Comment: [facility] has implemented the eGFR calculation approach that does not have a coefficient for race that conforms to the NKF-ASN Task Force Recommendations. Sodium [Moles/Vol] 141 mmol/L Normal 135-145 [facility] Comment on above: Order Comment: [facility] has implemented the eGFR calculation approach that does not have a coefficient for race that conforms to the NKF-ASN Task Force Recommendations. Urea nitrogen [Mass/Vol] 5 mg/dL Low 8-25 [facility] Comment on above: Order Comment: [facility] has implemented the eGFR calculation approach that does not have a coefficient for race that conforms to the NKF-ASN Task Force Recommendations. POC CBC AND DIFFERENTIALon 1 BASOPHILS ABSOLUTE COUNT 0.01 K/mcL Normal 0.00-0.30 [facility] Basophils/100 WBC (Bld) 0.1 % Normal [facility] Eosinophils (Bld) [#/Vol] 0.21 10*3/uL Normal 0.00-0.50 [facility] Eosinophils/100 WBC (Bld) 3.0 % Normal [facility] Erythrocyte distribution width (RBC) [Ratio] 13.5 % Normal 11.6-14.8 [facility] Hematocrit (Bld) [Volume fraction] 39.0 % Normal 36.0-46.0 [facility] Hemoglobin (Bld) [Mass/Vol] 13.0 g/dL Normal 12.0-16.0 [facility] IG ABSOLUTE 0.01 K/mcL Normal 0.00-0.30 [facility] IG PERCENT 0.10 % Normal [facility] Comment on above: Result Comment: The IG parameter is the percentage of metamyelocytes, myelocytes and promyelocytes. An immature granulocyte count (IG) of 1% or more suggests the possibility of infection, an IG count of 3% is very likely related to an infection. Lymphocytes (Bld) [#/Vol] 1.12 10*3/uL Normal 0.90-4.00 [facility] Lymphocytes/100 WBC (Bld) 15.8 % Normal [facility] MCH (RBC) [Entitic mass] 28.8 pg Normal 26.0-34.0 [facility] MCV (RBC) [Entitic vol] 86.3 fL Normal 80.0-100.0 [facility] MEAN CORPUSCULAR HEMOGLOBIN CONC 33.3 g/dL Normal 31.0-37.0 [facility] Monocytes (Bld) [#/Vol] 0.29 10*3/uL Low 0.30-0.90 [facility] Monocytes/100 WBC (Bld) 4.1 % Normal [facility] NEUTROPHILS ABSOLUTE COUNT 5.43 K/mcL Normal 1.70-7.00 [facility] Neutrophils/100 WBC (Bld) 76.9 % Normal [facility] Platelet mean volume (Bld) [Entitic vol] 9.1 fL Low 9.4-12.4 [facility] Platelets (Bld) [#/Vol] 283 10*3/uL Normal 150-400 [facility] RBC (Bld) [#/Vol] 4.52 10*6/uL Normal 4.00-5.20 [facility] WBC (Bld) [#/Vol] 7.07 10*3/uL Normal 4.50-11.00 [facility] POC D-DIMER Jerardo 4 POC D-DIMER 1230 ng/mL DDU High <350 [facility] Comment on above: Order Comment: A D-D [...] than 400 ng/ml. POC INFLUENZA A/B - [facility] 1 POC INFLUENZA A (FSED) Not detected Normal Not Detected [facility] POC INFLUENZA B (FSED) Not detected Normal Not Detected [facility] POC TROPONIN I [facility] 2023 POC TROPONIN I < Normal <0.05 [facility] XR CHEST PA/APon 05-14-2024 XR CHEST PA/AP [...] Mild bronchial wall thickening is noted centrally. Ndzo-xe-oskdftum haziness is noted bilaterally suggestive of moderate pneumonitis. IMPRESSION: 1. Moderate haziness bilaterally suggestive of pneumonitis. 2. Nnhp-he-twgczzwo bilateral perihilar bronchitis. Workstation ID: [id number] Dictated by: RINA MURDOCK on [place] May 14, 2024 11:02:28 PM EDT Transcribed by: RINA MURDOCK on [place] May 14, 2024 11:02:28 PM EDT Finalized by: RINA MURDOCK on [place] May 14, 2024 11:02:28 PM EDT Normal [facility] Comment on above: Order Comment: Injur y/Trauma [...] CNP Authorized by: Era Giordano CNP CPT 61397 - Large Joint Arthrocentesis: Consent given by: [...] the procedure well with no immediate complications [facility] CULTURE URINEon 01-18-2021 CULTURE URINE CULTURE URINE --> St atus: F Normal urogenital jennie present. Normal [facility] Comment on above: Performed By: #### C /UR #### [address] [address] Hemoglobinon 01-18-2021 Hemoglobin (Bld) [Mass/Vol] 7.4 g/dL Low 11.7-16.0 [facility] Comment on above: Performed By: #### H EMGB #### [address] [address] HemoglobinOrdered By: Drea Senior on 01-18-2021 Hemoglobin.gastrointes tinal spec 1 Ql (Stl) 7.4 g/dL Low 11.7 - 16.0 g/dL [facility] Work Phone: Interpretation and review of laboratory results Abnormal [facility] Work Phone: Test Performed by [address] [address] [facility] Work Phone: [facility] Work Phone: CR Abdomen APon 01-17-2021 CR Abdomen AP Patient Name: SHAUNA RAINEY Diagnostic Radiology ACCESSION EXAM DATE/TIME PROCEDURE ORDERING PROVIDER [id number] 01/17/2021 02:10 EDT CR Abdomen AP [id number] -SURI ESTRADA CPT code 04472 Reason For Exam (CR Abdomen AP) s/p [...] bowel gas pattern. Report Dictated on Workstation: [facility] Final Dictated: 01/17/2021 2:09 am Dictating Physician: MD LEAL JONATHAN R Signed Date and Time: 01/17/2021 2:10 am Signed by: MD LEAL JONATHAN R Transcribed Date and Time: 01/17/2021 2:09 Normal [facility] Comp Metabolic Panelon 01-17 ALP [Catalytic activity/Vol] 128 U/L High 38-126 [facility] Comment on above: Performed By: #### C MP3, HEMOG #### [address] [address] [place], [place] ALT [Catalytic activity/Vol] 11 U/L Normal 0-34 [facility] Comment on above: Result Comment: The ALT test is performed by an updated assay method. Please note that the reference intervals have been changed and are now sex specific. Performed By: #### C MP3, HEMOG #### [facility] [address] [place] [address] Calcium [Mass/Vol] 9.5 mg/dL Normal 8.4-10.4 [facility] Comment on above: Performed By: #### C MP3, HEMOG #### [facility] [address] [place] [address] Glucose [Mass/Vol] 75 mg/dL Normal 70-100 [facility] Comment on above: Performed By: #### C MP3, HEMOG #### [facility] [address] [place], [place] Protein [Mass/Vol] 6.7 g/dL Normal 6.3-8.2 [facility] Comment on above: Performed By: #### C MP3, HEMOG #### [facility] [address] [place], [place] Urea nitrogen [Mass/Vol] 10 mg/dL Normal 7-20 [facility] Comment on above: Performed By: #### C MP3, HEMOG #### [facility] [address] [place], [place] Anion gap [Moles/Vol] 5 mmol/L Normal 3-13 [facility] Comment on above: Performed By: #### C MP3, HEMOG #### [facility] [address] [place], [place] AST [Catalytic activity/Vol] 26 U/L Normal 15-46 [facility] Comment on above: Performed By: #### C MP3, HEMOG #### [facility] [address] [place], [place] Bilirubin [Mass/Vol] 0.5 mg/dL Normal 0.2-1.3 [facility] Comment on above: Performed By: #### C MP3, HEMOG #### [facility] [address] [place], [place] CO2 [Moles/Vol] 20 mmol/L Low 22-30 [facility] Comment on above: Performed By: #### C MP3, HEMOG #### [facility] [address] [place], [place] Creatinine [Mass/Vol] 0.40 mg/dL Low 0.52-1.25 [facility] Comment on above: Performed By: #### C MP3, HEMOG #### [facility] [address] [place], [place] eGFR OTHER > 90.0 Normal >60 [facility] Comment on above: Result Comment: KDIG [...] Performed By: #### C MP3, HEMOG #### [address] GFR/1.73 sq M.predicted among blacks MDRD (S/P/Bld) [Vol rate/Area] mL/min/{1.73_m2} Normal >60 [facility] Comment on above: Performed By: #### C MP3, HEMOG #### [address] Chloride [Moles/Vol] 107 mmol/L Normal 98-107 [facility] Comment on above: Performed By: #### C MP3, HEMOG #### [address] Potassium [Moles/Vol] 3.5 mmol/L Normal 3.5-5.1 [facility] Comment on above: Performed By: #### C MP3, HEMOG #### [address] Sodium [Moles/Vol] 133 mmol/L Low 135-145 [facility] Comment on above: Performed By: #### C MP3, HEMOG #### [address] Albumin [Mass/Vol] 3.5 g/dL Normal 3.5-5.0 [facility] Comment on above: Performed By: #### C MP3, HEMOG #### [address] Culture, UrineOrdered By: Leslie Estrada on 01-17-2021 Bacteria identified Cx Nom (U) Normal urogenital jennie present. [facility] Work Phone: Test Performed by [facility], [address] [place] [address] [facility] Work Phone: [facility] Work Phone: Hemogramon 01-17-2021 Erythrocyte distribution width (RBC) [Ratio] 15.6 % High 11.5-14.5 [facility] Comment on above: Performed By: #### C MP3, HEMOG #### [address] [address] [place], [place] Hematocrit (Bld) [Volume fraction] 32.6 % Low 35.0-47.0 [facility] Comment on above: Performed By: #### C MP3, HEMOG #### [address] [address] [place], [place] Hemoglobin (Bld) [Mass/Vol] 10.9 g/dL Low 11.7-16.0 [facility] Comment on above: Performed By: #### C MP3, HEMOG #### [address] MCH (RBC) [Entitic mass] 26.7 pg Normal 26.0-34.0 [facility] Comment on above: Performed By: #### C MP3, HEMOG #### [address] [address] [place], [place] MCHC 33.4 % Normal 32.0-36.0 [facility] Comment on above: Performed By: #### C MP3, HEMOG #### [address] MCV (RBC) [Entitic vol] 79.9 fL Normal 79.0-98.0 [facility] Comment on above: Performed By: #### C MP3, HEMOG #### [address] Platelet mean volume (Bld) [Entitic vol] 9.7 fL Normal 7.4-10.4 [facility] Comment on above: Performed By: #### C MP3, HEMOG #### [facility] [address] [place] [address] Platelets (Bld) [#/Vol] 152 10*3/uL Normal 140-440 [facility] Comment on above: Performed By: #### C MP3, HEMOG #### [facility] [address] [place], [place] RBC (Bld) [#/Vol] 4.08 10*6/uL Normal 3.80-5.20 [facility] Comment on above: Performed By: #### C MP3, HEMOG #### [facility] [address] [place], [place] WBC (Bld) [#/Vol] 8.1 10*3/uL Normal 3.6-10.7 [facility] Comment on above: Performed By: #### C MP3, HEMOG #### [address] [address] [place], [place] TS GELon 01-17-2021 TS GEL ABO Group: A Rh, Gel: POS Antibody Screen Gel: NEG Normal [facility] Comment on above: Performed By: #### T SGL #### [facility] XR ABDOMEN (KUB) (SINGLE AP VIEW)Ordered By: Suri Estrada on 01-17-2021 Patient Name: SHAUNA RAINEY Diagnostic Radiology ACCESSION EXAM DATE/TIME PROCEDURE ORDERING PROVIDER [id number] 01/17/2021 02:10 EDT CR Abdomen AP [id number] -SURI ESTRADA CPT code 02826 Reason For Exam (CR Abdomen AP) s/p [...] bowel gas pattern. Report Dictated on Workstation: [facility] --- Final --- Dictated: 01/17/2021 2:09 am Dictating Physician: MD LEAL JONATHAN R Signed Date and Time: 01/17/2021 2:10 am Signed by: MD LEAL JONATHAN R Transcribed Date and Time: 01/17/2021 2:09 [facility] Work Phone: [facility] Incoming Radiology Results From [facility] - 01/17/2021 2:11 AM EDT Patient Name: SHAUNA RAINEY Diagnostic Radiology ACCESSION EXAM DATE/TIME PROCEDURE ORDERING PROVIDER [id number] 01/17/2021 02:10 EDT CR Abdomen AP [id number] -SURI ESTRADA CPT code 42153 Reason For Exam (CR Abdomen AP) s/p [...] bowel gas pattern. Report Dictated on Workstation: [facility] --- Final --- Dictated: 01/17/2021 2:09 am Dictating Physician: MD LEAL JONATHAN R Signed Date and Time: 01/17/2021 2:10 am Signed by: MD LEAL JONATHAN R Transcribed Date and Time: 01/17/2021 2:09 [facility] Work Phone: [facility] Work Phone: CBCOrdered By: Suri benavides on 01-16-2021 Hematocrit (Bld) [Volume fraction] 32.6 % Low 35.0 - 47.0 % [facility] Work Phone: 1 Hemoglobin.gastrointes tinal spec 1 Ql (Stl) 10.9 g/dL Low 11.7 - 16.0 g/dL [facility] Work Phone: ) Interpretation and review of laboratory results Abnormal [facility] Work Phone: MCH (RBC) [Entitic mass] 26.7 pg 26.0 - 34.0 pg [facility] Work Phone: MCHC (RBC) [Mass/Vol] 33.4 % 32.0 - 36.0 % [facility] Work Phone: MCV (RBC) [Entitic vol] 79.9 fL 79.0 - 98.0 fL [employer] Work Phone: Platelet distribution width (Bld) [Ratio] 15.6 % High 11.5 - 14.5 % [facility] Work Phone: Platelet mean volume (Bld) [Entitic vol] 9.7 fL 7.4 - 10.4 fL [facility] Work Phone: [phone] Platelets (Bld) [#/Vol] 152 10*3/uL 140 - 440 10*3/uL [facility] Work Phone: RBC (Bld) [#/Vol] 4.08 10*6/uL 3.80 - 5.2 0 10*6/uL [facility] Work Phone: 222 WBC (Bld) [#/Vol] 8.1 10*3/uL 3.6 - 10.7 10*3/uL [facility] Work Phone: Test Performed by [facility], [address] [place] [address] [facility] Work Phone: [facility] Work Phone: Comprehensive Metabolic Pane lOrdered By: Suri Estrada on 01-16-2021 Albumin [Mass/Vol] 3.5 g/dL 3.5 - 5.0 g/dL [employer] Work Phone: 222 ALP (Bld) [Catalytic activity/Vol] 128 U/L High 38 - 126 U/L [facility] Work Phone: [phone] ALT [Catalytic activity/Vol] 11 U/L 0 - 34 U/L [facility] Work Phone: [phone] Comment on above: The ALT test is perf ormed by an updated assay method. Please note that the reference intervals have been changed and are now sex specific. Anion gap [Moles/Vol] 5 mmol/L 3 - 13 mmol/L [facility] Work Phone: [phone] AST [Catalytic activity/Vol] 26 U/L 15 - 46 U/L [facility] Work Phone: [phone] Bilirubin [Mass/Vol] 0.5 mg/dL 0.2 - 1 .3 mg/dL [facility] Work Phone: [phone] Calcium [Mass/Vol] 9.5 mg/dL 8.4 - 10. 4 mg/dL [facility] Work Phone: [phone] Chloride [Moles/Vol] 107 mmol/L 98 - 10 7 mmol/L [facility] Work Phone: [phone] CO2 [Moles/Vol] 20 mmol/L Low 22 - 30 mmol/L [facility] Work Phone: [phone] Creatinine [Mass/Vol] 0.4 mg/dL Low 0.52 - 1.25 mg/dL [facility] Work Phone: [phone] EGFR IF NonAfrican [place] Islander >90.0 >60 mL/min [facility] Work Phone: [phone] Comment on above: KDIGO guidelines pro vide [...] 6.3 - 8.2 g/dL [facility] Work Phone: ) GFR/1.73 sq M.predicted among blacks MDRD (S/P/Bld) [Vol rate/Area] mL/min/{1.73_m2} >60 mL/min [facility] Work Phone: ) Glucose [Mass/Vol] 75 mg/dL 70 - 100 mg/dL [facility] Work Phone: Interpretation and review of laboratory results Abnormal [facility] Work Phone: Potassium [Moles/Vol] 3.5 mmol/L 3.5 - 5.1 mmol/L [facility] Work Phone: Sodium [Moles/Vol] 133 mmol/L Low 135 - 145 mmol/L [facility] Work Phone: Urea nitrogen (BldV) [Mass/Vol] 10 mg/dL 7 - 20 mg/dL [facility] Work Phone: ) Test Performed by bigtincan, [facility] medineering [employer] [place] [address] [facility] Work Phone: [facility] Work Phone: TYPE AND SCREENOrdered By: Vik Estrada on 01-16-2021 ABO Grouping A [facility] Work Phone: Rh Type Positive [facility] Work Phone: Test Performed by bigtincan, [facility] [place] [address] [facility] Work Phone: ) [facility] Work Phone: 1 POC Basic Metabolic Panelon 10-27-2020 Calcium.ionized (Bld) [Mass/Vol] 4.3 mg/dL Low 4.5 - 5.3 mg/dL [facility] Chloride [Moles/Vol] 106 mmol/L 98 - 10 8 mmol/L [facility] CO2 [Moles/Vol] 20 mmol/L Low 21 - 32 mmol/L [facility] Creatinine [Mass/Vol] 0.37 mg/dL Low 0.40 - 1.10 [facility] GFR/1.73 sq M.predicted MDRD (S/P/Bld) [Vol rate/Area] 151 mL/min/{1.73_m2} >=60 mL/min/1.73 m2 [facility] Glucose [Mass/Vol] 109 mg/dL High 65 - 99 mg/dL [facility] Interpretation and review of laboratory results Abnormal [facility] Potassium [Moles/Vol] 3.7 mmol/L 3.5 - 5.1 mmol/L [facility] Sodium [Moles/Vol] 137 mmol/L 135 - 145 mmol/L [facility] Urea nitrogen [Mass/Vol] 9 mg/dL 8 - 25 mg/dL [facility] POC CBC and Differentialon 0 - Basophils (Bld) [#/Vol] 0.02 10*3/uL [facility] Basophils/100 WBC (Bld) 0.2 % [facility] Eosinophils (Bld) [#/Vol] 0.08 10*3/uL [facility] Eosinophils/100 WBC (Bld) 0.8 % [facility] Erythrocyte distribution width (RBC) [Entitic vol] 14.7 % 11.6 - 14.8 % [facility] Hematocrit (Bld) [Volume fraction] 40.1 % 36.0 - 46.0 % [facility] Hemoglobin (Bld) [Mass/Vol] 13.2 g/dL 12.0 - 16.0 g/dL [facility] Immature granulocytes (Bld) [#/Vol] 0.04 10*3/uL [facility] Immature granulocytes/100 WBC (Bld) 0.40 % [facility] Comment on above: The IG parameter is the percentage of metamyelocytes, myelocytes and promyelocytes. An immature granulocyte count (IG) of 1% or more suggests the possibility of infection, an IG count of 3% is very likely related to an infection. Interpretation and review of laboratory results Abnormal [facility] Lymphocytes (Bld) [#/Vol] 0.81 10*3/uL Low [facility] Lymphocytes/100 WBC (Bld) 7.6 % [facility] MCH (RBC) [Entitic mass] 29.7 pg 26.0 - 34.0 pg [facility] MCHC (RBC) [Mass/Vol] 32.9 g/dL 31.0 - 37.0 g/dL [facility] MCV (RBC) [Entitic vol] 90.1 fL 80.0 - 100.0 fL [facility] Monocytes (Bld) [#/Vol] 0.43 10*3/uL [facility] Monocytes/100 WBC (Bld) 4.1 % [facility] Neutrophils (Bld) [#/Vol] 9.23 10*3/uL High [facility] Neutrophils/100 WBC (Bld) 86.9 % [facility] Platelet mean volume (Bld) [Entitic vol] 9.5 fL 9.4 - 12.4 fL [facility] Platelets (Bld) [#/Vol] 197 10*3/uL [facility] RBC (Bld) [#/Vol] 4.45 10*6/uL [facility] ealth WBC (Bld) [#/Vol] 10.61 10*3/uL [facility] POC Liver Panel Pluson 10-27 Albumin [Mass/Vol] 3.1 g/dL Low 3.2 - 5.2 g/dL [facility] ALP [Catalytic activity/Vol] 57 U/L 40 - 140 U/L [facility] ALT [Catalytic activity/Vol] 16 U/L 0 - 40 U/L [facility] Amylase [Catalytic activity/Vol] 46 U/L 25 - 115 U/L [facility] AST [Catalytic activity/Vol] 21 U/L 0 - 45 U/L [facility] Bilirubin [Mass/Vol] 0.5 mg/dL 0.0 - 1 .3 mg/dL [facility] Gamma glutamyl transferase [Catalytic activity/Vol] 6 U/L Low 7 - 33 U/L [facility] Interpretation and review of laboratory results Abnormal [facility] Protein [Mass/Vol] 6.9 g/dL 6.0 - 8.0 g/dL [facility] C. Trachomatis, External Res ultOrdered By: [...] Non-Reactive [facility] Work Phone: Hepatitis C Antibody, Therapy Site Coordinator al ResultOrdered By: Historical Provider on 07-22-2020 [...] Titer, External Result Reactive [facility] Work Phone: SENIOR DIRECTOR INSIGHT - Office Visiton 11-0 SENIOR DIRECTOR INSIGHT - Office Visit Chief Complaint Patient is [...] PM Vitals Vital Signs Recorded: 09Jun2019 10:10AM Hmvhypjp011 Wnwdafdcd66 Height4 ft 11 in Thxeeh34.7 kg BMI Acxcxdhixh99.36 BSA Calculated1.59 LMPBreastfeeding Physical Exam PHYSICAL EXAMINATION: [...] oral contraceptives; SHANNA = N; Sent To: [facility] 1448 Provider Impressions checkup She will be started on Micronor for contraception. Follow up in November for her annual exam. Signatures Electronically signed by : Brigid Marquez MD; Jun 09 2019 10:23AM EST (Author) [employer] SENIOR DIRECTOR INSIGHT - Office Visiton SENIOR DIRECTOR INSIGHT - Office Visit Chief Complaint Patient is [...] PM Vitals Vital Signs Recorded: 15May2019 02:52PM Mgwmnhki703 Wpoiyhuhd85 Gitqwg958 cm Xpozze44.2 kg BMI Cnsdcdlajj71.65 BSA Calculated1.63 Physical Exam Constitutional: Alert and in no acute distress. Well developed, well nourished. Head and Face: Head and face: Normal. Eyes: Normal external exam - nonicteric sclera, extraocular movements intact (EOMI) and no ptosis. Abdomen: Soft nontender; no abdominal mass palpated. Noted well-healed low Pfannenstiel scar. [place] were removed and Steri-Strips were applied. Psychiatric: [...] [Ratio] 16.8 % High 11.5 - 14.5 [facility] Comment on above: Performed By: #### C BC #### [address] [address] Hematocrit (Bld) [Volume fraction] 29.7 % Low 36.0 - 46.0 [facility] Comment on above: Performed By: #### C BC #### [address] [address] Hemoglobin (Bld) [Mass/Vol] 9.5 g/dL Low 12.0 - 16.0 [facility] Comment on above: Performed By: #### C BC #### [address] [address] MCHC (RBC) [Mass/Vol] 32.0 g/dL Normal 32.0 - 36.0 [facility] Comment on above: Performed By: #### C BC #### [address] [address] MCV (RBC) [Entitic vol] 82 fL Normal 80 - 100 [facility] Comment on above: Performed By: #### C BC #### [address] [address] Platelets (Bld) [#/Vol] 121 10*3/uL Low 150 - 450 [facility] Comment on above: Performed By: #### C BC #### [address] [address] RBC (Bld) [#/Vol] 3.63 x10E12/L Low 4.00 - 5.20 [facility] Comment on above: Performed By: #### C BC #### [address] [address] WBC (Bld) [#/Vol] 7.4 10*3/uL Normal 4.4 - 11.3 [facility] Comment on above: Performed By: #### C BC #### [address] [address] Daily Progress Note - OB-Pos t-partumon 05-13-2019 Daily Progress Note - DE-Uunt-lvumcl Current Stage: Stage: Post- Subjective Data: Post : Ambulate: Yes Flatus: Yes Tolerate Diet: Yes Lochia: Light Objective Information: Objective Information: T PRBPSpO2 Value36.0429651/5498% Date/Time05/13 4:0010/5 4:001/5 4:00105 4:0010/5 4:00 Range(36.6C - 36.6C ) (76 - [...] Last Updated: 13-May-2019 06:25 by Brigid Marquez) [facility] Discharge [id number] Discharge Profile2 Discharge Orders: Anticipated Discharge Date: Anticipated Discharge [id number] Anticipated Discharge Time06:58 Problem List: Admitting Dx: [...] Call to Schedule in2-3 days Locationoffice Phone [phone] CommentsCall for appointment for May 15 for staple removal Electronic Signatures: Brigid Marquez) (Signed 13-May-2019 07:08) Authored: Discharge Orders, Provider FINAL REVIEW of Orders, Appointments, Gold Form - Manufacturing Assistant Summary Last Updated: 13-May-2019 07:08 by Brigid Marquez) [facility] TYPE + SCREENon 05-13-2019 ABO TYPE A [facility] Comment on above: Performed By: #### T +S #### [place] [address] RH TYPE Positive Normal [facility] Comment on above: Performed By: #### T +S #### [place] [id number] Hematocriton 05-12-2019 Hematocrit (Bld) [Volume fraction] 29.4 % Low 36.0-48.0 [facility] Comment on above: Performed By: #### 6 [id number] #### ALEX Chemistry Manual Subsection [address] [place] [address] Hemoglobinon 05-12-2019 Hemoglobin (Bld) [Mass/Vol] 9.4 g/dL Low 12.0-16.0 [facility] Comment on above: Performed By: #### 2 [id number] #### [employer] [employer] [address] [place] [address] Placenta Pathology Request - NO EXAMon 05-12-2019 Placenta Pathology Request - NO EXAM Collected Normal [facility] Comment on above: Performed By: #### 6 [id number] #### ALEX Chemistry Manual Subsection [address] [place] [address] RPRon 05-12-2019 Reagin Ab RPR Ql (S) Non-Reactive Normal Non-Lety ctiv e [facility] Comment on above: Performed By: #### 6 [id number] #### ALEX Chemistry Manual Subsection [address] [place] [address] ABO/Rh Echoon 05-09-2019 ABO/Rh E Interp... Positive [facility] Comment on above: Performed By: #### 2 [id number] #### [employer] [address] [place] [address] Antibody Screen Cap...on Screen Interp... Negative [facility] Comment on above: Performed By: #### 2 [id number] #### [employer] [address] [place] [address] Auto Diffon 05-09-2019 Basophils (Bld) [#/Vol] 0.1 E3/mcL Normal 0.0-0.2 [facility] Comment on above: Order Comment: Order Added by Discern Expert. Performed By: #### 2 [id number] #### [employer] [address] [place] [address] Basophils/100 WBC (Bld) 0.8 % Normal 0.0-2.0 [facility] Comment on above: Order Comment: Order Added by Discern Expert. Performed By: #### 2 [id number] #### [employer] [address] [place] [address] Eos Absolute 0.1 E3/mcL Normal 0.0-0.7 [facility] Comment on above: Order Comment: Order Added by Discern Expert. Performed By: #### 2 [id number] #### [employer] [address] [place] [address] Eosinophils/100 WBC (Bld) 1.5 % Normal 0.0-11.0 [facility] Comment on above: Order Comment: Order Added by Discern Expert. Performed By: #### 2 [id number] #### [employer] [address] [place] [address] Lymphocytes (Bld) [#/Vol] 2.2 E3/mcL Normal 1.2-3.4 [facility] Comment on above: Order Comment: Order Added by Discern Expert. Performed By: #### 2 [id number] #### [employer] [address] [place] [address] Lymphocytes/100 WBC (Bld) 33.5 % Normal 20.0-55.0 [facility] Comment on above: Order Comment: Order Added by Discern Expert. Performed By: #### 2 [id number] #### [employer] [address] [place] [address] [place]oval Absolute 0.5 E3/mcL Normal 0.0-0.7 [facility] Comment on above: Order Comment: Order Added by Discern Expert. Performed By: #### 2 [id number] #### [employer] [address] [place] [address] Monocytes/100 WBC (Bld) 8.2 % Normal 0.0-10.0 [facility] Comment on above: Order Comment: Order Added by Discern Expert. Performed By: #### 2 [id number] #### [employer] [address] [place] [address], [place] [address] Neutro Absolute 3.6 E3/mcL Normal 1.4-6.5 [facility] Comment on above: Order Comment: Order Added by Discern Expert. Performed By: #### 2 [id number] #### [employer] [address] [place] [address] Neutro Auto 56.0 % Normal 37.0-75.0 [facility] Comment on above: Order Comment: Order Added by Discern Expert. Performed By: #### 2 [id number] #### [employer] [address] [place] [address] CBC w/ Auto Diffon 9 Erythrocyte distribution width (RBC) [Ratio] 16.5 % High 11.5-14.5 [facility] Comment on above: Performed By: #### 2 [id number] #### [employer] [address] [place] [address] Hematocrit (Bld) [Volume fraction] 35.5 % Low 36.0-48.0 [facility] Comment on above: Performed By: #### 2 [id number] #### [employer] [address] [place] [address] Hemoglobin (Bld) [Mass/Vol] 11.5 g/dL Low 12.0-16.0 [facility] Comment on above: Performed By: #### 2 [id number] #### [employer] [address] [place] [address] MCH (RBC) [Entitic mass] 25.9 pg Low 27.0-31.0 [facility] Comment on above: Performed By: #### 2 [id number] #### [employer] [address] [place] [address] MCHC (RBC) [Mass/Vol] 32.3 g/dL Low 33.0-37.0 [facility] Comment on above: Performed By: #### 2 [id number] #### [employer] [address] [place] [address] MCV (RBC) [Entitic vol] 80.2 fL Normal 78.0-100.0 [facility] Comment on above: Performed By: #### 2 [id number] #### [employer] [address] [place] [address] Platelet mean volume (Bld) [Entitic vol] 8.7 fL Normal 7.4-11.0 [facility] Comment on above: Performed By: #### 2 [id number] #### [employer] [address] [place] [address] Platelets (Bld) [#/Vol] 146 E3/mcL Normal 130-400 [facility] Comment on above: Performed By: #### 2 [id number] #### [employer] [address] [place] [address] RBC (Bld) [#/Vol] 4.43 E6/mcL Normal 3.90-5.40 [facility] Comment on above: Performed By: #### 2 [id number] #### [employer]LEX [address] [address] WBC (Bld) [#/Vol] 6.5 E3/mcL Normal 3.6-11.0 [facility] Comment on above: Performed By: #### 2 [id number] #### [facility] [address] [address] Group B Strep PCRon 04-21-20 19 Group B Strep PCR Negative Normal [facility] Comment on above: Order Comment: For p ositive results only; Penicillin is the recommended antibiotic for the treatment of Group B Streptococcal disease. In case of penicillin allergy, Clindamycin may be used.All Negative GBS Screens by PCR will be confirmed by culture. Performed By: #### 2 [id number] #### [employer] [address] [address] Auto Diffon 02-06-2019 Basophils (Bld) [#/Vol] 0.0 E3/mcL Normal 0.0-0.2 [facility] Comment on above: Order Comment: Order Added by Discern Expert. Performed By: #### 2 [id number] #### [employer]LEX [address] [address] Basophils/100 WBC (Bld) 0.5 % Normal 0.0-2.0 [facility] Comment on above: Order Comment: Order Added by Discern Expert. Performed By: #### 2 [id number] #### [employer] [address] [place] [address] Eos Absolute 0.1 E3/mcL Normal 0.0-0.7 [facility] Comment on above: Order Comment: Order Added by Discern Expert. Performed By: #### 2 [id number] #### [employer] [address] [place] [address] Eosinophils/100 WBC (Bld) 1.5 % Normal 0.0-11.0 [facility] Comment on above: Order Comment: Order Added by Discern Expert. Performed By: #### 2 [id number] #### [employer] [address] [place] [address] Lymphocytes (Bld) [#/Vol] 2.1 E3/mcL Normal 1.2-3.4 [facility] Comment on above: Order Comment: Order Added by Discern Expert. Performed By: #### 2 [id number] #### [employer] [address] [place] [address] Lymphocytes/100 WBC (Bld) 21.7 % Normal 20.0-55.0 [facility] Comment on above: Order Comment: Order Added by Discern Expert. Performed By: #### 2 [id number] #### [employer] [address] [place] [address] [place]oval Absolute 0.6 E3/mcL Normal 0.0-0.7 [facility] Comment on above: Order Comment: Order Added by Discern Expert. Performed By: #### 2 [id number] #### [employer] [address] [place] [address] Monocytes/100 WBC (Bld) 6.8 % Normal 0.0-10.0 [facility] Comment on above: Order Comment: Order Added by Discern Expert. Performed By: #### 2 [id number] #### [employer] [address] [place] [address] Neutro Absolute 6.6 E3/mcL High 1.4-6.5 [facility] Comment on above: Order Comment: Order Added by Discern Expert. Performed By: #### 2 [id number] #### [employer] [address] [place] [address] Neutro Auto 69.5 % Normal 37.0-75.0 [facility] Comment on above: Order Comment: Order Added by Discern Expert. Performed By: #### 2 [id number] #### [employer] [address] [place], [place] [address] CBC w/ Auto Diffon 9 Erythrocyte distribution width (RBC) [Ratio] 14.4 % Normal 11.5-14.5 [facility] Comment on above: Performed By: #### 2 [id number] #### [facility] [employer] [address] [place], [place] [address] Hematocrit (Bld) [Volume fraction] 33.9 % Low 36.0-48.0 [facility] Comment on above: Performed By: #### 2 [id number] #### [facility] [employer] [address] [place], [place] [address] Hemoglobin (Bld) [Mass/Vol] 11.3 g/dL Low 12.0-16.0 [facility] Comment on above: Performed By: #### 2 [id number] #### [facility] [employer] [address] [place], [place] [address] MCH (RBC) [Entitic mass] 29.7 pg Normal 27.0-31.0 [facility] Comment on above: Performed By: #### 2 [id number] #### [facility] [employer] [address] [place], [place] [address] MCHC (RBC) [Mass/Vol] 33.2 g/dL Normal 33.0-37.0 [facility] Comment on above: Performed By: #### 2 [id number] #### [employer] [address] [place] [address] MCV (RBC) [Entitic vol] 89.5 fL Normal 78.0-100.0 [facility] Comment on above: Performed By: #### 2 [id number] #### [employer] [employer] [address] [place] [address] Platelet mean volume (Bld) [Entitic vol] 7.7 fL Normal 7.4-11.0 [facility] Comment on above: Performed By: #### 2 [id number] #### [facility] [employer] [address] [place] [address] Platelets (Bld) [#/Vol] 190 E3/mcL Normal 130-400 [facility] Comment on above: Performed By: #### 2 [id number] #### [facility] [employer] [facility] [place] [address] RBC (Bld) [#/Vol] 3.79 E6/mcL Low 3.90-5.40 [facility] Comment on above: Performed By: #### 2 [id number] #### [facility] [facility] [place] [address] WBC (Bld) [#/Vol] 9.5 E3/mcL Normal 3.6-11.0 [facility] Comment on above: Performed By: #### 2 [id number] #### [facility] [employer] [facility] [place] [address] Gest Scr Glu 1 Hron 02-07-20 19 Glucose [Mass/Vol] 112 mg/dL Normal 70-140 [facility] Comment on above: Performed By: #### 2 [id number] #### [employer] [employer] [address] [place] [address] URINALYSISon 01-04-2019 Bacteria Auto Ql (U) Rare Abnormal None Se en /hpf [facility] Bilirubin Ql (U) Negative Negative [facility] th Clarity Refractometry automated Nom (U) Hazy Abnormal Clear [facility] Color Nom (U) Yellow Colorless, Yellow [facility] Epithelial cells.squamous Auto #/area (Urine sed) 2 [facility] Glucose Automated test strip mass conc (U) Negative Negative mg/dL [facility] Hemoglobin Automated test strip Ql (U) Large Abnormal Negative [facility] Interpretation and review of laboratory results Abnormal [facility] Ketones mass conc (U) >=80 Abnormal Negati ve mg/dL [facility] Leukocyte esterase Automated test strip Ql (U) Negative Negative [facility] Mucus Auto #/area (Urine sed) Rare None Seen, Rare /lpf [facility] Nitrite Automated test strip Ql (U) Negative Negative [facility] pH (U) 5.0 [pH] [facility] Protein mass conc (U) 100 Abnormal Negati ve mg/dL [facility] RBC Auto #/area (Urine sed) >180 High [facility] Specific gravity Relative Density (U) 1.028 High [facility] Urobilinogen mass conc (U) <2.0 <2.0 mg/dL [facility] WBC Auto #/area (Urine sed) <1 [facility] Microscopic examinat ion is performed on all urinalysis samples and only positive findings are reported. The test for blood on the chemical analytic portion of urinalysis may also be positive due to hemoglobinuria and myoglobinuria and if red blood cells are present they are quantified by microscopic examination. [facility] US Renal Onlyon 01-04-2019 1. Yqzw-kq-iwkqsjsq hydronephrosis of the left kidney; however, no apparent cause is identified. If patient has a distal left ureteral calculus would be a consideration. Other etiologies, such as mass in the distal abdomen or pelvis, could result in similar process. 2. Normal-appearing right kidney. [employer] Workstation ID: [id number] [facility] CLINICAL HISTORY: Le ft flank pain. [...] mass, hydronephrosis, nephrolithiasis, or perinephric fluid collections. [facility] Hernán, Yovany In Fu ji Speechq - 01/04/2019 8:33 PM EDT CLINICAL HISTORY: [...] nephrolithiasis, or perinephric fluid collections. IMPRESSION: 1. Cffu-qe-phyuwygf hydronephrosis of the left kidney; however, no apparent cause is identified. If patient has a distal left ureteral calculus would be a consideration. Other etiologies, such as mass in the distal abdomen or pelvis, could result in similar process. 2. Normal-appearing right kidney. [employer] Workstation ID: [id number] [facility] US After 1st Trime steron 12-26-2018 US After 1st Trimester Exam Date/Time: 12/26/2018 09:59 EDT Reason for Exam: DATES AND ANATOMY;Standard Anatomy Report STUDY: US After 1st Trimester 12/26/2018 9:59 am INDICATION: Standard Anatomy. COMPARISON: None. ACCESSION NUMBER(S): [id number] ORDERING CLINICIAN: Brigid Marquez TECHNIQUE: Routine ultrasound [...] am Signed by: Adithya Shaw MD Technologist: [facility] Auto Diffon 12-13-2018 Basophils (Bld) [#/Vol] 0.0 E3/mcL Normal 0.0-0.2 [facility] Comment on above: Order Comment: Order Added by Discern Expert. Performed By: #### 2 [id number] #### [facility] [employer] [address] [place] [address] Basophils/100 WBC (Bld) 0.4 % Normal 0.0-2.0 [facility] Comment on above: Order Comment: Order Added by Discern Expert. Performed By: #### 2 [id number] #### [facility] [employer] [address] [place] [address] Eos Absolute 0.1 E3/mcL Normal 0.0-0.7 [facility] Comment on above: Order Comment: Order Added by Mateus Expert. Performed By: #### 2 [id number] #### [facility] [employer] [address] [place] [address] Eosinophils/100 WBC (Bld) 1.1 % Normal 0.0-11.0 [facility] Comment on above: Order Comment: Order Added by Discern Expert. Performed By: #### 2 [id number] #### [employer] [address] [place] [address] Lymphocytes (Bld) [#/Vol] 1.6 E3/mcL Normal 1.2-3.4 [facility] Comment on above: Order Comment: Order Added by Mateus Expert. Performed By: #### 2 [id number] #### [facility] [employer] [address] [place] [address] Lymphocytes/100 WBC (Bld) 19.5 % Low 20.0-55.0 [facility] Comment on above: Order Comment: Order Added by Mateus Expert. Performed By: #### 2 [id number] #### [facility] [employer] [address] [place] [address] Sandoval Absolute 0.5 E3/mcL Normal 0.0-0.7 [facility] Comment on above: Order Comment: Order Added by Discern Expert. Performed By: #### 2 [id number] #### [facility] [employer] [address] [place] [address] Monocytes/100 WBC (Bld) 6.5 % Normal 0.0-10.0 [facility] Comment on above: Order Comment: Order Added by Discern Expert. Performed By: #### 2 [id number] #### ALEX [address] [address] [place] [address] Neutro Absolute 5.9 E3/mcL Normal 1.4-6.5 [facility] Comment on above: Order Comment: Order Added by Discern Expert. Performed By: #### 2 [id number] #### ALEX [address]emo [address] [place] [address] Neutro Auto 72.5 % Normal 37.0-75.0 [facility] Comment on above: Order Comment: Order Added by Discern Expert. Performed By: #### 2 [id number] #### ALEX [address]emo [address] [place] [address] BMPon 12-13-2018 Anion gap [Moles/Vol] 11 mmol/L Normal 10-20 [facility] Comment on above: Performed By: #### 2 [id number] #### ALEX [address]emo [address] [place] [address] Calcium [Mass/Vol] 8.7 mg/dL Normal 8.6-10.3 [facility] Comment on above: Performed By: #### 2 [id number] #### ALEX [address]emo [address] [place] [address] Chloride [Moles/Vol] 105 mmol/L Normal 98-107 [facility] Comment on above: Performed By: #### 2 [id number] #### ALEX [address]emo [address] [place] [address] CO2 [Moles/Vol] 24.0 mmol/L Normal 21.0-32.0 [facility] Comment on above: Performed By: #### 2 [id number] #### ALEX RemHemo [address] [place] [address] Creatinine [Mass/Vol] 0.4 mg/dL Low 0.5-1.1 [facility] Comment on above: Performed By: #### 2 535763 #### ALEX RemHemo [address] [place] [address] Glucose [Mass/Vol] 92 mg/dL Normal 70-99 [facility] Comment on above: Performed By: #### 2 [id number] #### ALEX RemHemo [address] [place] [address] Potassium [Moles/Vol] 3.7 mmol/L Normal 3.5-5.3 [facility] Comment on above: Performed By: #### 2 825679 #### ALEX RemHemo [address] [place] [address] Sodium [Moles/Vol] 136 mmol/L Normal 136-145 [facility] Comment on above: Performed By: #### 2 561427 #### ALEX RemHemo [address] [place] [address] Urea nitrogen [Mass/Vol] 9 mg/dL Normal 6-23 [facility] Comment on above: Performed By: #### 2 819539 #### ALEX RemHemo [address] [place] [address] Urea nitrogen/Creatinine [Mass ratio] 22.5 ratio Normal 5.4-30.0 [facility] Comment on above: Performed By: #### 2 422066 #### ALEX RemHemo [address] [place] [address] CBC w/ Auto Diffon 9 Erythrocyte distribution width (RBC) [Ratio] 14.4 % Normal 11.5-14.5 [facility] Comment on above: Performed By: #### 2 186777 #### ALEX RemHemo [address] [place] [address] Hematocrit (Bld) [Volume fraction] 37.6 % Normal 36.0-48.0 [facility] Comment on above: Performed By: #### 2 207495 #### ALEX RemHemo [address] [place] [address] Hemoglobin (Bld) [Mass/Vol] 12.5 g/dL Normal 12.0-16.0 [facility] Comment on above: Performed By: #### 2 909087 #### ALEX RemHemo [address] [place] [address] MCH (RBC) [Entitic mass] 30.1 pg Normal 27.0-31.0 [facility] Comment on above: Performed By: #### 2 518431 #### ALEX RemHemo [address] [place] [address] MCHC (RBC) [Mass/Vol] 33.4 g/dL Normal 33.0-37.0 [facility] Comment on above: Performed By: #### 2 333914 #### ALEX RemHemo [address] [place] [address] MCV (RBC) [Entitic vol] 90.2 fL Normal 78.0-100.0 [facility] Comment on above: Performed By: #### 2 418813 #### ALEX RemHemo [address] [place] [address] Platelet mean volume (Bld) [Entitic vol] 8.0 fL Normal 7.4-11.0 [facility] Comment on above: Performed By: #### 2 388067 #### ALEX RemHemo [address] [place] [address] Platelets (Bld) [#/Vol] 211 E3/mcL Normal 130-400 [facility] Comment on above: Performed By: #### 2 608714 #### ALEX RemHemo [address] [place] [address] RBC (Bld) [#/Vol] 4.17 E6/mcL Normal 3.90-5.40 [facility] Comment on above: Performed By: #### 2 625550 #### ALEX RemHemo [address] [place] [address] WBC (Bld) [#/Vol] 8.2 E3/mcL Normal 3.6-11.0 [facility] Comment on above: Performed By: #### 2 714268 #### ALEX RemHemo [address] [place] [address] Hep Func Panelon 12-13-2018 Albumin [Mass/Vol] 3.7 g/dL Normal 3.4-5.0 [facility] Comment on above: Performed By: #### 2 012432 #### ALEX RemHemo [address] [place] [address] Albumin/Globulin [Mass ratio] 1.5 {ratio} Normal 1.1-1.9 [facility] Comment on above: Performed By: #### 2 537071 #### ALEX [address] [place] [address] Alk Phos 43 Int._Unit/L Normal 33-110 [facility] Comment on above: Performed By: #### 2 542775 #### ALEX [address] [place] [address] ALT [Catalytic activity/Vol] 11 Int._Unit/L Normal 7-45 [facility] Comment on above: Performed By: #### 2 880646 #### ALEX [address] [place] [address] AST [Catalytic activity/Vol] 12 Int._Unit/L Normal 9-39 [facility] Comment on above: Performed By: #### 2 601720 #### ALEX [address] [place] [address] Bili Direct 0.07 mg/dL Normal 0.00-0.30 [facility] Comment on above: Performed By: #### 2 476023 #### ALEX [address]ep[address]emo [address] [place] [address] Bili Indirect 0.24 mg/dL Normal [facility] Comment on above: Result Comment: No e stablished ranges available for the indirect bilirubin Performed By: #### 2 894014 #### ALEX [address]emo [address] [place] [address] Bili Total 0.31 mg/dL Normal 0.00-1.20 [facility] Comment on above: Performed By: #### 2 956941 #### ALEX [address] [place] [address] Globulin (S) [Mass/Vol] 3.0 g/dL Normal 2.0-4.0 [facility] Comment on above: Performed By: #### 2 847708 #### ALEXLora [address] [place] [address] Protein [Mass/Vol] 6.2 g/dL Low 6.4-8.2 [facility] Comment on above: Performed By: #### 2 473069 #### ALEX RemHemo [address] [place] [address] Lipase Levelon 12-13-2018 Lipase Lvl 14 Int._Unit/L Normal -82 [facility] Comment on above: Performed By: #### 2 427511 #### ALEX [address] [place] [address] UA Completeon 12-13-2018 Color (U) Yellow Normal Yellow [facility] Comment on above: Performed By: #### 2 394902 #### ALEXLora [address] [place] [address] Glucose (U) [Mass/Vol] Negative Normal Negative [facility] Comment on above: Performed By: #### 2 921398 #### ALEX KatelynHemo [address] [place] [address] Ketones Ql (U) Trace Normal [facility] Comment on above: Performed By: #### 2 411661 #### ALEX ZepedaHemo [facility] [place] [address] RBC (U) [#/Vol] /uL Abnormal 0-3 [facility] Comment on above: Performed By: #### 2 015574 #### ALEX RemHemo [address] [place] [address] UA Blood 3+ Normal Negative [facility] Comment on above: Performed By: #### 2 250021 #### ALEX [address] [place] [address] UA Clarity Cloudy Abnormal Clear [facility] Comment on above: Performed By: #### 2 085151 #### ALEX RemHemo [address] [place] [address] UA Leuk Est Negative Normal Negative [facility] Comment on above: Performed By: #### 2 726764 #### ALEX RemHemo [address] [place] [address] UA Mucous Many Abnormal Trace [facility] Comment on above: Performed By: #### 2 754129 #### ALEX RemHemo [address] [place] [address] UA Nitrite Negative Normal Negative [facility] Comment on above: Performed By: #### 2 988162 #### ALEX RemHemo [address] [place] [address] UA pH 5.0 Normal 4.6-8.0 [facility] Comment on above: Performed By: #### 2 665274 #### [facility] [address] [place] [address] UA Protein 2+ Abnormal Negative [facility] Comment on above: Performed By: #### 2 218092 #### ALEX Timmonso [address] [place], [place] [address] UA Spec Grav 1.032 High 1.003-1.030 [facility] Comment on above: Performed By: #### 2 783244 #### [facility] [address] [place], [place] [address] UA Squam Epithelial 0-5 Normal 0-5 [facility] Comment on above: Performed By: #### 2 383338 #### ALEX [address]epeda[address]emo [address] [place] [address] UA Urobilinogen Negative Normal [facility] Comment on above: Result Comment: Due to a manufacturing issue, low positive urobilinogen results may be fasely positive. Correlate with urine bilirubin and additional clinical/laboratory findings to assess the risk of hemolytic anemia or liver disease. If clinically indicated, repeat testing with an alternate method is available by contacting the laboratory within 24 hours. Performed By: #### 2 822945 #### ALEX Timmonso [address] [place], [place] [address] UA WBC 0-5 Normal 0-5 [facility] Comment on above: Performed By: #### 2 972139 #### ALEX [facility] [place] [address] Urobilinogen Qn (U) Negative Normal Negative [facility] Comment on above: Performed By: #### 2 490258 #### ALEX ZepedaHemo [address] [place], [place] [address] US Renalon 12-13-2018 US Renal Exam Date/Time: 12/13/2018 16:52 EDT Reason for Exam: left flank pain;Other (please specify) Report STUDY: US Renal; 12/13/2018 4:52 pm INDICATION: Other (please specify). Patient is approximately 19 weeks . COMPARISON: None. ACCESSION NUMBER(S): [id number] ORDERING CLINICIAN: Cristofer Beebe TECHNIQUE: Multiple images [...] Signed by: Víctor Moon MD Technologist: [facility] eGFRon 12-13-2018 GFR/1.73 sq M predicted among non-blacks MDRD (S/P/Bld) [Vol rate/Area] mL/min/{1.73_m2} [facility] Comment on above: Order Comment: Order Added by Discern Expert. Performed By: #### 2 120791 #### ALEX RemHemo [address] [place] [address] C Urineon 12-02-2018 C Urine Final Report: Modera te growth of Normal skin jennie isolated [facility] Comment on above: Performed By: #### 2 047639 #### ALEX RemHemo [address] [place] [address] IGP W/hpv Rfx [id number] 11-10 Diagnosis: See Ref Lab Report [facility] Comment on above: Order Comment: Order Added by Discern Expert. Performed By: #### 2 520284 #### ALEX RemHemo [address] [place] [address] RPRon 11-09-2018 Reagin Ab RPR Ql (S) Non-Reactive Normal Non-Lety ctiv e [facility] Comment on above: Performed By: #### 2 050416 #### ALEX Chemistry Manual Subsection [facility] [place] [address] C Urineon 11-04-2018 C Urine Final Report: Rare N ormal skin jennie isolated Normal [facility] Comment on above: Performed By: #### 2 962790 #### ALEX Microbiology Subsection [address] [place], [place] [address] Hep Bs Agon 11-04-2018 Hep Bs Ag Negative Normal Negative [facility] Comment on above: Result Comment: Perf ormed At: [facility] [address] [id number] Jennifer Pina PhD Ph:[phone] Performed By: #### 2 [id number] #### ALEX Send Outs Subsection [address] [place] [address] ABO/Rh Echoon 11-02-2018 ABO/Rh E Interp... Positive Normal [facility] Comment on above: Performed By: #### 8 [id number] #### ALEX Blood Bank Subsection [address] [place] [address] Antibody Screen Cap...on Screen Interp... Negative Normal [facility] Comment on above: Performed By: #### 8 [id number] #### ALEX Blood Bank Subsection [address] [place] [address] Auto Diffon 11-02-2018 Basophils (Bld) [#/Vol] 0.1 E3/mcL Normal 0.0-0.2 [facility] Comment on above: Order Comment: Order Added by Discern Expert. Performed By: #### 2 121520 #### ALEX RemHemo [address] [place] [address] Basophils/100 WBC (Bld) 1.3 % Normal 0.0-2.0 [facility] Comment on above: Order Comment: Order Added by Discern Expert. Performed By: #### 2 971112 #### ALEX RemHemo [address] [place] [address] Eos Absolute 0.2 E3/mcL Normal 0.0-0.7 [facility] Comment on above: Order Comment: Order Added by Discern Expert. Performed By: #### 2 431155 #### ALEX RemHemo [address] [place] [address] Eosinophils/100 WBC (Bld) 1.8 % Normal 0.0-11.0 [facility] Comment on above: Order Comment: Order Added by Discern Expert. Performed By: #### 2 757752 #### ALEX RemHemo [address] [place] [address] Lymphocytes (Bld) [#/Vol] 2.1 E3/mcL Normal 1.2-3.4 [facility] Comment on above: Order Comment: Order Added by Discern Expert. Performed By: #### 2 642021 #### ALEX RemHemo [address] [place] [address] Lymphocytes/100 WBC (Bld) 24.5 % Normal 20.0-55.0 [facility] Comment on above: Order Comment: Order Added by Discern Expert. Performed By: #### 2 767464 #### ALEX RemHemo [address] [place] [address] Sandoval Absolute 0.3 E3/mcL Normal 0.0-0.7 [facility] Comment on above: Order Comment: Order Added by Discern Expert. Performed By: #### 2 509983 #### ALEX RemHemo [address] [place] [address] Monocytes/100 WBC (Bld) 3.7 % Normal 0.0-10.0 [facility] Comment on above: Order Comment: Order Added by Discern Expert. Performed By: #### 2 937920 #### ALEX RemHemo [address] [place] [address] Neutro Absolute 5.8 E3/mcL Normal 1.4-6.5 [facility] Comment on above: Order Comment: Order Added by Discern Expert. Performed By: #### 2 430141 #### ALEX RemHemo [address] [place] [address] Neutro Auto 68.7 % Normal 37.0-75.0 [facility] Comment on above: Order Comment: Order Added by Discern Expert. Performed By: #### 2 022757 #### ALEX RemHemo [address] [place] [address] CBC w/ Auto Diffon 9 Erythrocyte distribution width (RBC) [Ratio] 14.5 % Normal 11.5-14.5 [facility] Comment on above: Performed By: #### 2 887821 #### ALEX [address]emo [address] [place] [address] Hematocrit (Bld) [Volume fraction] 40.8 % Normal 36.0-48.0 [facility] Comment on above: Performed By: #### 2 681757 #### ALEX [address]emo [address] [place] [address] Hemoglobin (Bld) [Mass/Vol] 13.5 g/dL Normal 12.0-16.0 [facility] Comment on above: Performed By: #### 2 622814 #### ALEX [address]emo [address] [place] [address] MCH (RBC) [Entitic mass] 29.8 pg Normal 27.0-31.0 [facility] Comment on above: Performed By: #### 2 520523 #### ALEX [address]Hemo [address] [place] [address] MCHC (RBC) [Mass/Vol] 33.0 g/dL Normal 33.0-37.0 [facility] Comment on above: Performed By: #### 2 679817 #### ALEX [address]Hemo [address] [place] [address] MCV (RBC) [Entitic vol] 90.1 fL Normal 78.0-100.0 [facility] Comment on above: Performed By: #### 2 413722 #### ALEX RemHemo [address] [place] [address] Platelet mean volume (Bld) [Entitic vol] 8.3 fL Normal 7.4-11.0 [facility] Comment on above: Performed By: #### 2 817417 #### ALEX RemHemo [address] [place] [address] Platelets (Bld) [#/Vol] 227 E3/mcL Normal 130-400 [facility] Comment on above: Performed By: #### 2 948185 #### ALEX RemHemo [address] [place] [address] RBC (Bld) [#/Vol] 4.53 E6/mcL Normal 3.90-5.40 [facility] Comment on above: Performed By: #### 2 650403 #### ALEX RemHemo [address] [place] [address] WBC (Bld) [#/Vol] 8.4 E3/mcL Normal 3.6-11.0 [facility] Comment on above: Performed By: #### 2 595171 #### ALEX RemHemo [address] [place] [address] Chlamydia GC by PCRon 2018 Chlamydia by PCR. Not Detected Normal Not Detected [facility] Comment on above: Result Comment: Xper t CT/NG Assay performance has not been evaluated in patients less than 14 years of age. Performed By: #### 3 [id number] #### AELX Misc Micro SubSection , Gonorrhoeae by PCR Not Detected Normal Not Detected [facility] Comment on above: Result Comment: Xper t CT/NG Assay performance has not been evaluated in patients less than 14 years of age. Performed By: #### 3 [id number] #### ALEX Misc Micro SubSection , HIV-1/2 Ag/Abon 11-02-2018 HIV Combo Internal Control Line Reactive Normal Reactive [facility] Comment on above: Performed By: #### 6 [id number] #### ALEX Chemistry Manual Subsection [address] [place] [address] HIV-1 & HIV-2 Antibodies Non-Reactive Normal Non-Reactiv e [facility] Comment on above: Performed By: #### 6 [id number] #### ALEX Chemistry Manual Subsection [facility] [place] [address] HIV-1 p-24 Antigen Non-Reactive Normal Non-React iv e [facility] Comment on above: Performed By: #### 6 [id number] #### ALEX Chemistry Manual Subsection [address] [place] [address] HIV-1/2 Ag/Ab Interp Negative Normal Negative [facility] Comment on above: Performed By: #### 6 [id number] #### ALEX Chemistry Manual Subsection [address] [place] [address] Rubella IgG Lvlon 11-02-2018 Rubella IgG Lvl 55.8 (POS) Normal [facility] Comment on above: Result Comment: <10I U/ml NON REACTIVE: NOT IMMUNE 10-15 IU/ml RUBELLA SPECIFIC AB PRESENT, EVALUATE FURTHER TO DETERMINE IMMUNE STATUS >15 IU/ml REACTIVE, IMMUNE Performed By: #### 2 [id number] #### ALEX [employer] [address] [place], [place] [address] Pathology ([facility])on 10-22-2017 Pathology ([facility]) FINAL GYNECOLOGIC CY TOLOGY [id number] ADEQUACYSatisfactory for Evaluation. Endocervical cells/transformation zone componentpresent.GENERAL CATEGORIZATIONEpithelial Cell AbnormalityDESCRIPTIVE DIAGNOSISLow grade squamous intraepithelial lesion consistent with HPV effect.CLINICAL HISTORYComment: LMP: BreastFeedingSPECIMEN(A) SCREENING CERVICAL/ENDOCERVICAL LIQUID-BASED PAPPerformed at [facility], [address] [place] [id number] by: MONICA VELA Potato Picker Signed Out by: DOLORES WEI MD Reported: 10/26/2017 Normal [facility] Comment on above: Performed By: #### G YN ####[facility] [id number] [place] [address] Vital Signs Date Time Vital Sign Value Performing Clinician Facility 02-13-2025 08:40-0400 Body temperature 97.1 [degF] Ryan HYMAN Work Phone: [facility] 02-13-2025 08:40-0400 Diastolic blood pressure 50 mm[Hg] Ryan HYMAN Work Phone: [facility] 02-13-2025 08:40-0400 Heart rate 74 /min Ryan HYMAN Work Phone: [facility] 02-13-2025 08:40-0400 Respiratory rate 16 /min Ryan HYMAN Work Phone: [facility] 02-13-2025 08:40-0400 SaO2% (BldA) [Mass fraction] 100 % Ryan Baggs PA Work Phone: [facility] 02-13-2025 08:40-0400 Systolic blood pressure 94 mm[Hg] Ryan Baggs PA Work Phone: [facility] 02-13-2025 06:48-0400 Body height 152.4 cm Ryan Dimas PA Work Phone: [facility] 02-13-2025 06:48-0400 Body mass index (BMI) [Ratio] 31.7 kg/m2 Ryan Dimas PA Work Phone: [facility] 02-13-2025 06:48-0400 Body weight 73.8 kg Ryan Baggs PA Work Phone: [facility] 02-08-2025 14:22-0400 Body weight 72.12 kg Ryan Baggs PA Work Phone: [facility] 02-08-2025 14:22-0400 Diastolic blood pressure 61 mm[Hg] Ryan Baggs PA Work Phone: [facility] 02-08-2025 14:22-0400 Heart rate 64 /min Ryan Baggs PA Work Phone: [facility] 02-08-2025 14:22-0400 Respiratory rate 18 /min Ryan Baggs PA Work Phone: [facility] 02-08-2025 14:22-0400 SaO2% (BldA) [Mass fraction] 98 % Ryan Dimas PA Work Phone: [facility] 02-08-2025 14:22-0400 Systolic blood pressure 92 mm[Hg] Ryan Dimas PA Work Phone: [facility] 01-30-2025 13:43-0400 Body height 152.4 cm Ryan Baggs PA-C Work Phone: [facility] 01-30-2025 13:43-0400 Body mass index (BMI) [Ratio] 31.48 kg/m2 Ryan Baggs PA-C Work Phone: [facility] 01-30-2025 13:43-0400 Body weight 73.12 kg Ryan Dimas PA-C Work Phone: [facility] 01-30-2025 13:43-0400 Diastolic blood pressure 78 mm[Hg] Ryan Dimas PA-C Work Phone: [facility] 01-30-2025 13:43-0400 Heart rate 88 /min Ryan Dimas PA-C Work Phone: [facility] 01-30-2025 13:43-0400 Systolic blood pressure 119 mm[Hg] Ryan Baggs PA-C Work Phone: [facility] 01-29-2025 15:21-0400 Body height 152.4 cm Ryan Dimas PA Work Phone: [facility] 01-29-2025 15:21-0400 Body mass index (BMI) [Ratio] 31 kg/m2 Ryan Baggs PA Work Phone: [facility] 01-29-2025 15:21-0400 Body temperature 98.8 [degF] Ryan Dimas PA Work Phone: [facility] 01-29-2025 15:21-0400 Body weight 72.12 kg Ryan Baggs PA Work Phone: [facility] 01-29-2025 15:21-0400 Diastolic blood pressure 74 mm[Hg] Ryan Baggs PA Work Phone: [facility] 01-29-2025 15:21-0400 Heart rate 67 /min Ryan Dimas PA Work Phone: [facility] 01-29-2025 15:21-0400 Respiratory rate 16 /min Ryan Dimas PA Work Phone: [facility] 01-29-2025 15:21-0400 SaO2% (BldA) [Mass fraction] 97 % Ryan Baggs PA Work Phone: [facility] 01-29-2025 15:21-0400 Systolic blood pressure 106 mm[Hg] Ryan Baggs PA Work Phone: [facility] 01-23-2025 09:59-0400 Body height 152.4 cm Ryan Baggs PA Work Phone: [facility] 01-23-2025 09:59-0400 Body mass index (BMI) [Ratio] 31.3 kg/m2 Ryan Baggs PA Work Phone: [facility] 01-23-2025 09:59-0400 Body temperature 97.5 [degF] Ryan Dimas PA Work Phone: [facility] 01-23-2025 09:59-0400 Body weight 72.74 kg Ryan Baggs PA Work Phone: [facility] 01-23-2025 09:59-0400 Diastolic blood pressure 72 mm[Hg] Ryan Baggs PA Work Phone: [facility] 01-23-2025 09:59-0400 Heart rate 64 /min Ryan Dimas PA Work Phone: [facility] 01-23-2025 09:59-0400 Respiratory rate 17 /min Ryan Dimas PA Work Phone: [facility] 01-23-2025 09:59-0400 SaO2% (BldA) [Mass fraction] 99 % Ryan Baggs PA Work Phone: [facility] 01-23-2025 09:59-0400 Systolic blood pressure 105 mm[Hg] Ryan Baggs PA Work Phone: [facility] 01-04-2025 09:41-0400 Body height 152.4 cm Ryan Baggs PA-C Work Phone: [facility] 01-04-2025 09:41-0400 Body mass index (BMI) [Ratio] 30.47 kg/m2 Ryan Dimas PA-C Work Phone: [facility] 01-04-2025 09:41-0400 Body weight 70.76 kg Ryan Baggs PA-C Work Phone: [facility] 01-04-2025 09:41-0400 Diastolic blood pressure 72 mm[Hg] Ryan Baggs PA-C Work Phone: [facility] 01-04-2025 09:41-0400 Heart rate 79 /min Ryan Dimas PA-C Work Phone: [facility] 01-04-2025 09:41-0400 Systolic blood pressure 111 mm[Hg] Ryan Baggs PA-C Work Phone: [facility] 11-15-2024 12:38-0400 Body height 152.4 cm Ryan Baggs PA-C Work Phone: [facility] 11-15-2024 12:38-0400 Body mass index (BMI) [Ratio] 30.19 kg/m2 Ryan Dimas PA-C Work Phone: [facility] 11-15-2024 12:38-0400 Body weight 70.13 kg Ryan Dimas PA-C Work Phone: [facility] 11-15-2024 12:38-0400 Diastolic blood pressure 82 mm[Hg] Ryan Baggs PA-C Work Phone: [facility] 11-15-2024 12:38-0400 Heart rate 90 /min Ryan Baggs PA-C Work Phone: [facility] 11-15-2024 12:38-0400 SaO2% (BldA) [Mass fraction] 98 % Ryan Dimas PA-C Work Phone: [facility] 11-15-2024 12:38-0400 Systolic blood pressure 117 mm[Hg] Ryan Baggs PA-C Work Phone: [facility] 05-23-2024 11:45-0400 Diastolic blood pressure 69 mm[Hg] Mariela Schulz DO Work Phone: [facility] 05-23-2024 11:45-0400 Heart rate 95 /min Mariela Schulz DO Work Phone: [facility] 05-23-2024 11:45-0400 Respiratory rate 16 /min Mariela Schulz DO Work Phone: [phone] [place] [address] 05-23-2024 11:45-0400 SaO2% (BldA) [Mass fraction] 95 % Mariela Schulz DO Work Phone: [facility] 05-23-2024 11:45-0400 Systolic blood pressure 111 mm[Hg] Mariela Schulz DO Work Phone: [phone] [place] [address] 05-22-2024 21:50-0400 Body height 152.4 cm Mariela Schulz DO Work Phone: [facility] 05-22-2024 21:50-0400 Body mass index (BMI) [Ratio] 27.34 kg/m2 Mariela Schulz DO Work Phone: [facility] 05-22-2024 21:50-0400 Body temperature 97.9 [degF] Mariela Schulz DO Work Phone: [facility] 05-22-2024 21:50-0400 Body weight 63.5 kg Mariela Schulz DO Work Phone: [facility] 07-04-2021 12:42-0500 Body height 155 cm Kinjal Cleveland MD Work Phone: [facility] 07-04-2021 12:42-0500 Body mass index (BMI) [Ratio] 25.05 kg/m2 Kinjal Cleveland MD Work Phone: [facility] 07-04-2021 12:42-0500 Body temperature 97.81 [degF] Kinjal Cleveland MD Work Phone: [facility] 07-04-2021 12:42-0500 Body weight 60.19 kg Kinjal Cleveland MD Work Phone: [facility] 07-04-2021 12:42-0500 Diastolic blood pressure 60 mm[Hg] Kinjal Cleveland MD Work Phone: [facility] 07-04-2021 12:42-0500 Heart rate 67 /min Kinjal Cleveland MD Work Phone: [facility] 07-04-2021 12:42-0500 Respiratory rate 18 /min Kinjal Cleveland MD Work Phone: [facility] 07-04-2021 12:42-0500 SaO2% (BldA) [Mass fraction] 97 % Kinjal Cleveland MD Work Phone: [facility] 07-04-2021 12:42-0500 Systolic blood pressure 92 mm[Hg] Kinjal Cleveland MD Work Phone: [facility] 01-19-2021 09:06-0400 Body temperature 98.29 [degF] Candice Bobby DO Work Phone: [employer] Work Phone: 01-19-2021 09:06-0400 Diastolic blood pressure 89 mm[Hg] Candice Bahenae DO Work Phone: [employer] Work Phone: 01-19-2021 09:06-0400 Heart rate 100 /min Candice Bobby DO Work Phone: [facility] Work Phone: 01-19-2021 09:06-0400 SaO2% (BldA) [Mass fraction] 99 % Candice Bahenae DO Work Phone: [facility] Work Phone: 01-19-2021 09:06-0400 Systolic blood pressure 138 mm[Hg] Candice Bobby DO Work Phone: [facility] Work Phone: 01-18-2021 20:30-0400 Respiratory rate 18 /min Candice Bobby DO Work Phone: [employer] Work Phone: 01-16-2021 23:50-0400 Body height 152.4 cm Candice Bobby DO Work Phone: [employer] Work Phone: 01-16-2021 23:50-0400 Body mass index (BMI) [Ratio] 32.22 kg/m2 Candice Bobby DO Work Phone: [employer] Work Phone: 01-16-2021 23:50-0400 Body weight 74.84 kg Candice Bobby DO Work Phone: [employer] Work Phone: 10-27-2020 10:30-0400 BP Diastolic 65 mm[Hg] [facility] 10-27-2020 10:30-0400 BP Systolic 115 mm[Hg] [facility] 10-27-2020 10:30-0400 Pulse Oximetry 99 % [facility] 10-27-2020 09:53-0400 Pulse (Heart Rate) 91 /min [facility] 10-27-2020 08:10-0400 BMI (Body Mass Index) 30.27 kg/m2 [facility] 10-27-2020 08:10-0400 Body Temperature 97.3 [degF] [facility] 10-27-2020 08:10-0400 Body weight 70.31 kg [facility] 10-27-2020 08:10-0400 Height 152.4 cm [facility] 10-27-2020 08:10-0400 Respiratory Rate 18 /[facility] 09-27-2019 09:36-0500 BMI (Body Mass Index) 26.37 kg/m2 [facility] 09-27-2019 09:36-0500 Body weight 61.24 kg Era [facility] 09-27-2019 09:36-0500 Height 152.4 cm Era Giordano [facility] 01-04-2019 18:19-0400 BMI (Body Mass Index) 30.27 kg/m2 [facility] 01-04-2019 18:19-0400 Body Temperature 97.59 [degF] [facility] 01-04-2019 18:19-0400 BP Diastolic 60 mm[Hg] [facility] 01-04-2019 18:19-0400 BP Systolic 102 mm[Hg] [facility] 01-04-2019 18:19-0400 Height 152.4 cm [facility] 01-04-2019 18:19-0400 Pulse (Heart Rate) 88 /min [facility] 01-04-2019 18:19-0400 Pulse Oximetry 98 % [facility] 01-04-2019 18:19-0400 Respiratory Rate 18 /min [facility] 01-04-2019 18:19-0400 Weight 70.31 kg [facility] 10-08-2017 17:17-0500 BMI (Body Mass Index) 27.97 kg/m2 [facility] 10-08-2017 17:17-0500 Body Temperature 98.1 [degF] [facility] 10-08-2017 17:17-0500 BP Diastolic 63 mm[Hg] [facility] 10-08-2017 17:17-0500 BP Systolic 109 mm[Hg] [facility] 10-08-2017 17:17-0500 Height 152.4 cm [facility] 10-08-2017 17:17-0500 Pulse (Heart Rate) 65 /min [facility] 10-08-2017 17:17-0500 Pulse Oximetry 98 % [facility] 10-08-2017 17:17-0500 Respiratory Rate 16 /min [facility] 10-08-2017 17:17-0500 Weight 64.95 kg [facility] Encounters Encounter Date Encounter Type Care Provider Facility Start: 02-16-2025 End: 02-16-2025 ambulatory MD NO PRIMARY CARE [facility] Start: 02-14-2025 End: 02-14-2025 Patient encounter procedure Sheila Eubanks [employer]IAN-C -Nuclear Medicine [facility] Work Phone: Start: 02-14-2025 End: 02-14-2025 ambulatory Sehila Eubanks NP Facility:[facility] Start: 02-13-2025 Encounter for other preprocedural examination [facility] Start: 02-13-2025 Encounter for other preprocedural examination [facility] Start: 02-13-2025 ambulatory [facility] Facilit y:[facility] Start: 02-13-2025 Non-patient / Non-visit Dr. Tho Figueroa MD -[facility] Start: 02-13-2025 End: 02-13-2025 Admission to same day surgery center Dr. Tamiko Figueroa [facility] Start: 02-13-2025 End: 02-13-2025 ambulatory Ryan Cochran PA Work Phone: [facility] Start: 02-08-2025 End: 02-08-[address] Michael Pantoja MD -[facility] Work Phone: Start: 02-08-2025 End: 02-08-2025 ambulatory Ryanchristopher Cochran PA Work Phone: -[facility] Start: 02-08-2025 Non-patient / Non-visit Dr. Carlos MATOS -[facility] Start: 02-08-2025 End: 02-08-2025 ambulatory Ryan Baggs PA Work Phone: -Cardiovascular Services Start: 02-08-2025 End: 02-08-[address] Ara Franklin MD -Cardiovascular Services Work Phone: Start: 02-08-2025 End: 02-08-2025 ambulatory Ryan Cochran Facility:[facility] Start: 01-31-2025 End: 01-31-2025 ambulatory Ryanchristopher Cochran PA Work Phone: [facility] Start: 01-31-2025 End: 01-31-[address] Tamiko Figueroa MD -[facility] Work Phone: Start: 01-30-2025 End: 01-30-2025 Office outpatient visit 25 minutes Ryan VIEIRAC Work Phone: [facility] Comment on above: Infiltrating ductal carcinoma of left breast (Primary Dx); Depression, major, recurrent, mild; Class 1 obesity due to excess calories without serious comorbidity with body mass index (BMI) of 31.0 to 31.9 in adult Start: 01-30-2025 End: 01-31-2025 ambulatory [facility] Start: 01-29-[address] Manda Franklin MD -[facility] Start: 01-29-2025 End: 01-29-[address] Ara Franklin MD -[facility] Work Phone: Start: 01-29-2025 End: 01-29-2025 ambulatory Ryan HYMAN Work Phone: [facility] Work Phone: Start: 01-25-2025 End: 01-25-2025 ambulatory Ryan HYMAN Work Phone: [facility] Work Phone: Start: 01-25-2025 End: 01-25-[address] Tamiko Figueroa MD -[facility] Work Phone: Start: 01-25-2025 End: 01-25-2025 ambulatory Tamiko Figueroa Facility:[facility] Start: 01-23-2025 End: 01-23-2025 ambulatory Ryan HYMAN Work Phone: [facility] Work Phone: Start: 01-23-2025 End: 01-23-[address] Tamiko Figueroa MD -[facility] Work Phone: Start: 01-12-2025 End: 01-12-2025 Subsequent hospital visit by physician Jorge Del Real 2 [facility] Comment on above: Abnormal mammogram o f left breast; Mass of multiple sites of left breast Start: 01-12-2025 End: 01-12-2025 ambulatory RYAN Garcia [facility] Start: 01-10-2025 End: 01-10-2025 Subsequent hospital visit by physician Jorge [facility] Comment on above: Mass of upper outer quadrant of left breast Start: 01-10-2025 End: 01-10-2025 ambulatory RYAN Garcia [facility] Start: 01-04-2025 End: 01-04-2025 Office outpatient visit 25 minutes Ryan Cochran PA-C Work Phone: [facility] Comment on above: Mass of upper outer quadrant of left breast (Primary Dx); Class 1 obesity due to excess calories without serious comorbidity with body mass index (BMI) of 30.0 to 30.9 in adult; Fibrocystic change of breast, left Start: 01-04-2025 End: 01-04-2025 ambulatory [facility] Start: 11-15-2024 End: 11-15-2024 Office outpatient new 45 minutes Ryan Cochran PA-C Work Phone: [facility] Comment on above: Encounter to [facility] with new provider (Primary Dx); Encounter for wellness examination in adult; Glucose intolerance (impaired glucose tolerance); Class 1 obesity due to excess calories without serious comorbidity with body mass index (BMI) of 30.0 to 30.9 in adult; Dietary counseling and surveillance; Intractable menstrual migraine with status migrainosus Start: 11-15-2024 End: 11-15-2024 Patient encounter status Ryan Cochran PA-C Work Phone: [facility] Work Phone: Start: 11-15-2024 End: 11-15-2024 ambulatory [facility] Start: 11-15-2024 End: 11-15-2024 Encounter for general adult medical examination without abnormal findings [facility] Start: 07-03-2024 ambulatory KINJAL GRAY [facility] Ambulatory Start: 05-23-2024 End: 05-25-2024 ambulatory KINJAL [facility] Start: 05-22-2024 End: 05-23-2024 Emergency department patient visit Mariela Schulz DO Work Phone: [facility] Emergency Medicine Comment on above: Pneumonia due to inf ectious organism, unspecified laterality, unspecified part of lung (Primary Dx) Start: 05-14-2024 End: 05-15-2024 Emergency department patient visit KEYSHAWN CATHRYN [facility] Start: 09-10-2021 Orders Only Kinjal Cleveland MD Work Phone: [facility] Comment on above: 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) Start: 08-26-2021 Orders Only Kinjal Cleveland MD Work Phone: [facility] Comment on above: 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) Start: 07-21-2021 End: 07-21-2021 Office outpatient visit 25 minutes Era Giordano CNP Work Phone: [facility] Comment on above: Instability of left shoulder joint (Primary Dx); Bursitis and tendinitis of shoulder region Start: 07-04-2021 End: 07-04-2021 Office outpatient new 30 minutes Kinjal Cleveland MD Work Phone: [facility] Comment on above: 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); Functional diarrhea Start: 01-16-2021 End: 01-19-2021 Evaluation and management of inpatient Candice Bobby DO Work Phone: [facility] Start: 10-27-2020 End: 10-27-2020 Emergency department patient visit Debi Pederson Work Phone: [facility] Emergency Department Start: 09-27-2019 End: 09-27-2019 Office outpatient new 30 minutes Era Giordano Work Phone: [facility] Comment on above: Pain in both upper e xtremities (Primary Dx) Start: 01-04-2019 End: 01-04-2019 Patient encounter procedure Cathryn Hale Work Phone: [facility] Start: 01-04-2019 End: 01-04-2019 Emergency department patient visit Elton Bauer [facility] Emergency Department Start: 10-08-2017 Office/outpatient vi sit, new, level 3 Elton Bauer Work Phone: [facility] Procedures Date Procedure Procedure Detail Performing Clinician Start: 02-14-2025 Radionuclide whole b tiana bone study Ryan HYMAN Work Phone: Start: 02-13-2025 Plain chest X-ray Shirlene HYMAN Work Phone: Start: 02-13-2025 Implantation to cardiovascular system Ryan HYMAN Work Phone: Start: 02-13-2025 Fluoroscopic guidance R loida HYMAN Work Phone: Start: 01-31-2025 Ultrasonography of breast Ryan HYMAN Work Phone: Start: 01-29-2025 Immature reticulocyt e fraction Ryan [...] real t toni with image limited Ryan VIEIRAC Work Phone: Start: 01-10-2025 Diagnostic mammograp hy computer-aided detcj bi Ryan VIEIRAC Work Phone: Start: 05-23-2024 Ct angiography chest w/contrast/noncontrast Mariela Schulz DO Work Phone: Start: 05-23-2024 Assay of lactate Mariela Schulz DO Work Phone: Start: 05-22-2024 Comprehensive metabo lic panel Mariela Schulz DO Work Phone: Start: 05-22-2024 Radiologic exam ches t 2 views Mariela Schulz DO Work Phone: Start: 05-22-2024 Ecg routine ecg w/le ast 12 lds trcg only w/o i&r Mariela Schulz DO Work Phone: Start: 07-21-2021 Arthrocentesis aspir &/inj major jt/bursa w/o us Era iGordano CNP Work Phone: Start: 07-04-2021 Adult depression scr eening assessment Kinjal Cleveland MD Work Phone: Start: 01-18-2021 Blood count hemoglobin Drea Senior DO Work Phone: Start: 01-17-2021 End: 01-19-2021 H/O: section Status post emergency section Candice Kanu DO Work Phone: Start: 01-17-2021 Radiologic exam [...] 10-27-2020 Basic metabolic pane l calcium ionized [facility] Start: 10-27-2020 Albumin serum plasma /whole blood [facility] Start: 10-27-2020 Blood count complete auto&auto difrntl wbc Debi Pederson Work Phone: Start: 07-22-2020 C. TRACHOMATIS, EXTE RNAL RESULT Historical Provider Start: 07-22-2020 GBS, EXTERNAL RESULT Hi storical Provider Start: 07-22-2020 HEPATITIS B, EXTERNA L RESULT Historical Provider MD Start: 07-22-2020 HEPATITIS C ANTIBODY , EXTERNAL RESULT Historical Provider MD Start: 07-22-2020 HIV, EXTERNAL RESULT Hi storical Provider Start: 07-22-2020 N. GONORRHOEAE, EXTE RNAL RESULT Historical Provider Start: 07-22-2020 RPR, EXTERNAL RESULT Hi storical Provider Start: 07-22-2020 RUBELLA TITER, EXTER NAL RESULT Historical Provider Start: 05-13-2019 Antibody screen Comment on above: Performed By: #### T +S #### [place] [address] Start: 01-04-2019 Us retroperitoneal r eal time w/image limited Cathryn Hale Work Phone: Start: 01-04-2019 Urinalysis Cathryn Hale Work Phone: H/O: section Status pos t emergency section Candice Bobby Work Phone: Plan of Treatment Date Care Activity Detail Author Start: 2046 Zoster Vaccines (1 of 2) Zoste r Vaccines (1 of 2) [facility] Start: 10-09-2027 Tetanus vaccination [facility] Start: 12-02-2026 DTaP/Tdap/Td Vaccine s (7 - Td or Tdap) DTaP/Tdap/Td Vaccines (7 - Td or Tdap) [facility] Start: 04-09-2025 Influenza vaccination Influenz a Vaccine (Season Ended) [facility] Start: 04-02-2025 End: 04-02-2025 Patient encounter procedure 04/02/2025 9:40 AM EDT Office Visit [facility] [address] [place] [phone] Ryan Cochran, PA-C [address] [place] [place] [address] [facility] Start: 02-13-2025 Anesthesia access ce ntral venous circulation ANESTH VASCULAR ACCESS [facility] Start: 02-13-2025 Insj tunneled ctr va d w/subq port age 6 yr/> INSERT TUNNELED CV CATH [facility] Start: 02-13-2025 Patient discharge [facility] Start: 01-30-2025 End: 01-30-2025 Patient encounter procedure 01/30/2025 1:40 PM EDT Office Visit [facility] [address] [place] [place] [phone] Ryan Cochran, PA-C [address] [place] [place] [address] [facility] Start: 01-29-2025 Cobalamin (Vitamin B 12) [Mass/volume] in Serum or Plasma [facility] Start: 01-29-2025 Comprehensive metabo lic 2000 panel - Serum or Plasma [facility] Start: 01-29-2025 Ferritin [Mass/volum e] in Serum or Plasma [facility] Start: 01-29-2025 Iron and Iron bindin g capacity panel - Serum or Plasma [facility] Start: 01-29-2025 [facility] Start: 01-23-2025 Patient referral [facility] Work Phone: Start: 01-23-2025 End: 01-23-2025 Patient encounter procedure 01/23/2025 1:30 PM EDT Office Visit [facility] [address] [place] [id number] Nikki Ballesteros MD [address] [place] [address] [facility] Start: 01-17-2025 End: 01-17-2025 Patient encounter procedure 01/17/2025 9:45 AM EDT Office Visit [facility] [address] [place] [phone] Yudy Ferrara MD [address] [place] [address] [facility] Start: 01-12-2025 End: 01-12-2025 Patient encounter procedure [facility] Start: 01-10-2025 End: 01-10-2025 Patient encounter procedure [facility] Start: 01-04-2025 End: 03-06-2026 DBT Breast - left diagnostic BI mammo left diagnostic tomosynthesis Imaging Routine Mass of upper outer quadrant of left breast Expected: 01/04/2025, Expires: 03/06/2026 [facility] Work Phone: Comment on above: Expected: 01/04/2025 , Expires: 03/06/2026 Start: 01-04-2025 End: 03-06-2026 US Breast - left limited BI US breast limited left Imaging Routine Mass of upper outer quadrant of left breast Expected: 01/04/2025, Expires: 03/06/2026 [facility] Work Phone: Comment on above: Expected: 01/04/2025 [...] in adult Expected: 11/15/2024 (Approximate), Expires: 11/15/2025 [facility] Work Phone: Comment on above: [...] in adult Expected: 11/15/2024 (Approximate), Expires: 11/15/2025 [facility] Work Phone: Comment on above: Expected: 11/15/2024 (Approximate), Expires: 11/15/2025 Start: 11-15-2024 End: 11-15-2025 Hemoglobin A1c/Hemoglobin.total in Blood Hemoglobin A1C Lab Routine Encounter for wellness examination in adult Glucose intolerance (impaired glucose tolerance) Class 1 obesity due to excess calories without serious comorbidity with body mass index (BMI) of 30.0 to 30.9 in adult Expected: 11/15/2024 (Approximate), Expires: 11/15/2025 [facility] Work Phone: Comment on above: Expected: 11/15/2024 (Approximate), Expires: 11/15/2025 Start: 11-15-2024 End: 11-15-2025 Lipid 1996 panel - Serum or Plasma Lipid Panel Lab Routine Encounter for wellness examination in adult Glucose intolerance (impaired glucose tolerance) Class 1 obesity due to excess calories without serious comorbidity with body mass index (BMI) of 30.0 to 30.9 in adult Expected: 11/15/2024 (Approximate), Expires: 11/15/2025 [facility] Work Phone: Comment on above: Expected: 11/15/2024 (Approximate), Expires: 11/15/2025 Start: 11-15-2024 End: 11-15-2025 Magnesium [Mass/volume] in Serum or Plasma Magnesium Lab Routine Encounter for wellness examination in adult Glucose intolerance (impaired glucose tolerance) Class 1 obesity due to excess calories without serious comorbidity with body mass index (BMI) of 30.0 to 30.9 in adult Expected: 11/15/2024 (Approximate), Expires: 11/15/2025 [facility] Work Phone: Comment on above: Expected: 11/15/2024 (Approximate), Expires: 11/15/2025 Start: 11-15-2024 End: 11-15-2025 Thyrotropin [Units/volume] in Serum or Plasma Thyroid Stimulating Hormone Lab Routine Encounter for wellness examination in adult Glucose intolerance (impaired glucose tolerance) Class 1 obesity due to excess calories without serious comorbidity with body mass index (BMI) of 30.0 to 30.9 in adult Expected: 11/15/2024 (Approximate), Expires: 11/15/2025 [facility] Work Phone: Comment on above: Expected: 11/15/2024 (Approximate), Expires: 11/15/2025 Start: 11-15-2024 End: 11-15-2025 Thyroxine (T4) free [Mass/volume] in Serum or Plasma Thyroxine, Free Lab Routine Encounter for wellness examination in adult Glucose intolerance (impaired glucose tolerance) Class 1 obesity due to excess calories without serious comorbidity with body mass index (BMI) of 30.0 to 30.9 in adult Expected: 11/15/2024 (Approximate), Expires: 11/15/2025 [facility] Work Phone: Comment on above: Expected: 11/15/2024 (Approximate), Expires: 11/15/2025 Start: 04-09-2024 COVID-19 Vaccine ( season) COVID-19 Vaccine ( season) [facility] Start: 04-09-2024 COVID-19 Vaccine ( season) COVID-19 Vaccine ( season) [facility] Start: 04-09-2024 Influenza vaccination Influenza Vacc ine (#1) [facility] Start: 07-04-2022 Depression screening using PHQ-9 (Patient Health Questionnaire 9) score Depression Screening (PHQ-2/9) [facility] Start: 04-09-2021 Influenza vaccination [facility] Start: 04-09-2020 Influenza vaccinatio n given Sequential Influenza Vaccine (#1) [facility] Start: 04-09-2019 Influenza vaccinatio n given [facility] Start: 03-09-2018 Vaccination for robb n papillomavirus HPV VACCINES (1 of 3 - Female 3 Dose Series) [facility] Start: 2017 Screening for malign ant neoplasm of cervix [facility] Start: 2014 Hepatitis C antibody , confirmatory test Hepatitis C Screening [facility] Start: 2014 Hepatitis C screening Hepatitis C Sc reening [facility] Start: 2012 COVID-19 Vaccine (1) COVID-19 Vaccin e (1) [facility] Start: 11-21-2011 HIV screening HIV Screening [facility] Start: 11-21-2011 Vaccination for robb n papillomavirus HPV VACCINES (1 - Female 3-dose series) [facility] Start: 2008 Adolescent depressio n screening assessment Depression Screening (PHQ9) [facility] Start: 2008 COVID-19 Vaccine (1) COVID-19 Vaccin e (1) [facility] Work Phone: Start: 2008 Depression screening using PHQ-9 (Patient Health Questionnaire 9) score Depression Screening (PHQ-2/9) [facility] Start: 11-21-2007 Vaccination for robb n papillomavirus [facility] Start: 03-27-2002 Varicella vaccination Varicell a Vaccines (2 of 2 - 2-dose childhood series) [facility] Start: 2001 COVID-19 Vaccine (1) COVID-19 Vaccin e (1) [facility] Start: 11-21-1999 History and physical examination, annual for health maintenance Wellness Visit [facility] Start: 1996 Depression screening using PHQ-9 (Patient Health Questionnaire 9) score Depression Screening (PHQ9) [facility] Start: 1996 HIV screening HIV Screening [facility] Start: 1996 Lipid panel Lipid Panel [facility] Start: 1996 Screening for Chlamy noa trachomatis Chlamydia Screening [facility] Start: 1996 Screening for malign ant neoplasm of cervix PAP SMEAR [facility] Start: 1995 Yearly Adult Physical [facility]ly [facility] Alanine aminotransfe rase [Enzymatic activity/volume] in Serum or Plasma [facility] Albumin [Mass/volume ] in Serum or Plasma [facility] Alkaline phosphatase [Enzymatic activity/volume] in Serum or Plasma [facility] Anion gap in Serum o r Plasma [facility] End: 05-22-2024 Bacteria identified in Blood by Culture [facility] Service Area Work Phone: Comment on above: STAT (Lab) for 1 Occ urrences starting 05/22/2024 until 05/22/2024, 1 completed Bilirubin, total measurement [facility] BUN/Creatinine ratio [facility] Calcium [Mass/volume ] in Serum or Plasma [facility] Carbon dioxide, tota l [Moles/volume] in Central venous blood [facility] Creatinine [Mass/vol ume] in Serum or Plasma [facility] ECG 12 Lead ECG 12 Lead ECG STAT 05/22/2024 9:50 PM EDT [facility] Work Phone: Folate [Moles/volume ] in Serum or Plasma [facility] Glucose [Mass/volume ] in Serum or Plasma [facility] Iron [Mass/mass] in Unspecified specimen [facility] Iron saturation [Mas s Fraction] in Serum or Plasma [facility] Measurement of renal function [facility] MR Breast - bilatera l WO and W contrast IV [facility] Nonrebreather mask oxygen Nonreb reather mask oxygen Respiratory Care Routine As directed - RT (PRN) until discontinued starting 01/16/2021 [employer] Work Phone: Comment on above: As directed - RT (OK N) until discontinued starting 01/16/2021 Oxygen therapy [[facility] Data Set] Initiate Oxygen Therapy Protocol Respiratory Care Routine Daily until discontinued starting 01/17/2021 [employer] Work Phone: Comment on above: Daily until disconti nued starting 01/17/2021 Patient referral [facility] Work Phone: Phase I & II - meter ed glucose Phase I & II - metered glucose Point of Care Testing Routine As Needed until discontinued starting 01/17/2021 [employer] Work Phone: Comment on above: As Needed until disc ontinued starting 01/17/2021 Positron emission tomography with computed tomography [facility] Potassium measurement [facility] Serum chloride measurement [facility] Sodium measurement [facility] Spirometry panel Incentive ramón metry Respiratory Care Routine Every 2hr while awake until discontinued starting 01/17/2021 [facility] Work Phone: Comment on above: Every 2hr while awak e until discontinued starting 01/17/2021 End: 01-17-2021 SURGICAL PATHOLOGY SURGICAL PATHOLOGY Lab Routine One Time for 1 Occurrences starting 01/17/2021 until 01/17/2021 [facility] Work Phone: Comment on above: One Time for 1 Occur rences starting 01/17/2021 until 01/17/2021 End: 01-12-2025 Surgical pathology study [facility] Service Ar ea Work Phone: Comment on above: Once (Lab) for 1 Occ urrences starting 01/12/2025 until 01/12/2025, 1 completed Total iron binding capacity measurement [facility] Total protein measurement [facility] TYPE AND SCREEN TYPE AND SCREEN Blood Bank Routine Every Third Day until discontinued starting 01/16/2021, 1 completed [facility] Work Phone: Comment on above: Every Third Day unti l discontinued starting 01/16/2021, 1 completed Urea nitrogen [Mass/volume] in Serum or Plasma [facility] Immunizations Immunization Date Immunization Notes Care Provider Fa alejandroty 01-17-2021 diphtheria, tetanus toxoids and acellular pertussis vaccine, unspecified formulation Candice Bobby DO Work Phone: [facility] Work Phone: 01-17-2021 measles, mumps and rubella virus vaccine Candiceherminia Bahenae DO Work Phone: [facility] Work Phone: 12-02-2016 tetanus toxoid, reduced diphtheria toxoid, and acellular pertussis vaccine, adsorbed Kinjal Cleveland MD Work Phone: [facility] 02-27-2002 diphtheria, tetanus toxoids and acellular pertussis vaccine, unspecified formulation Kinjal Cleveland MD Work Phone: [facility] 02-27-2002 measles, mumps and rubella virus vaccine Kinjal Cleveland MD Work Phone: [facility] 02-27-2002 poliovirus vaccine, inactivated Kinjal Cleveland MD Work Phone: [facility] 07-03-1998 diphtheria, tetanus toxoids and acellular pertussis vaccine, unspecified formulation Kinjal Cleveland MD Work Phone: [facility] 07-03-1998 varicella virus vaccine Kinjal Cleveland MD Work Phone: [facility] 04-10-1998 haemophilus influenz ae type b conjugate and Hepatitis B vaccine Kinjal lCeveland MD Work Phone: [facility] 04-10-1998 haemophilus influenz ae type b vaccine, conjugate unspecified formulation [facility] 04-10-1998 measles, mumps and rubella virus vaccine [facility] 07-25-1997 hepatitis B vaccine, pediatric or pediatric/adolescent dosage Kinjal Cleveland MD Work Phone: [facility] 07-03-1997 DTaP [facility] 06-20-1997 diphtheria, tetanus toxoids and acellular pertussis vaccine, unspecified formulation Kinjal Cleveland MD Work Phone: [facility] 06-20-1997 DTaP [facility] 06-20-1997 haemophilus influenz ae type b conjugate and Hepatitis B vaccine Kinjal Cleveland MD Work Phone: [facility] 06-20-1997 haemophilus influenz ae type b vaccine, conjugate unspecified formulation [facility] 06-20-1997 poliovirus vaccine, inactivated [facility] 06-20-1997 trivalent poliovirus vaccine, live, oral Kinjal Cleveland MD Work Phone: [facility] 04-04-1997 diphtheria, tetanus toxoids and acellular pertussis vaccine, unspecified formulation Kinjal Cleveland MD Work Phone: [facility] 04-04-1997 DTaP [facility] 04-04-1997 haemophilus influenz ae type b vaccine, conjugate unspecified formulation [facility] 04-04-1997 poliovirus vaccine, inactivated [facility] 04-04-1997 trivalent poliovirus vaccine, live, oral Kinjal Cleveland MD Work Phone: [facility] 01-24-1997 diphtheria, tetanus toxoids and acellular pertussis vaccine, unspecified formulation Kinjal Cleveland MD Work Phone: [facility] 01-24-1997 DTaP Elton Bauer [facility] 01-24-1997 haemophilus influenz ae type b vaccine, conjugate unspecified formulation Elton Bauer [facility] 01-24-1997 poliovirus vaccine, inactivated Elton Lizette [facility] 01-24-1997 trivalent poliovirus vaccine, live, oral Kinjal Cleveland MD Work Phone: [facility] Payers Date Payer Category Payer Self-pay 2023 [employer] [facility] MARISELA TRADITIONAL [id number] 2023 Unknown MARISELA ANTONIO TR ADITIONAL [id number] 2023-Present [address] [place] [address] [id number] 2023 Unknown [id number] 2020 Medicaid [facility] MANAGED [facility] MEDICAID COMMUNITY PLAN [id number] 2020-Present [id number] 2020 Medicaid [facility] MANAGED [facility] MEDICAID COMMUNITY PLAN [id number] 2020-Present [phone] [address] [place] [address] [id number] [id number] 2020 Medicare UHC MEDICARE [facility] DUAL COMPLETE [id number] 2020-Present [id number]. [id number] 2018 Private Health Insurance [id number]. 2.7.3.518206.315 2016 Medicaid [id number] 2.16.840.1.497798.3.249. 13 1996 Unknown [id number] 2.16.840.1.665147.3.579. 2.902 1996 Unknown [id number] 2.16.840.1.189134.3.579. 2.903 1996 Unknown [id number] 2.16.840.1.691997.3.579. 2.90 1996 Unknown [id number] 2.16.840.1.317297.3.579. 2.1243 1996 Unknown [id number] 2.16.840.1.150383.3.579. 2.1243 1996 Unknown [id number] 2.16.840.1.129240.3.579. 2.1243 1996 Unknown [id number] 2.16.840.1.460491.3.579. 2.1242 1996 Unknown [id number] 2.16.840.1.528131.3.579. 2.1242 1996 Unknown [id number] 2.16.840.1.198556.3.579. 2.1242 1996 Unknown [id number] 2.16.840.1.139042.3.579. 2.1242 1996 Unknown [id number] 2.16.840.1.359756.3.579. 2.12421997 Unknown [id number] 2.16.840.1.231196.3.579. 2.479 Unknown [id number] 2.16.840.1.880628.3.249. 13 Unknown [id number] 2.16.840.1.098706.3.579. 2.462 Unknown [id number] 2.16.840.1.823343.3.579. 2.462 Unknown [id number] 2.16.840.1.976732.3.579. 2.462 Unknown [id number] 2.16.840.1.587500.3.579. 2.462 Unknown [id number] 2.16.840.1.715495.3.579. 2.462 Unknown [id number] 2.16.840.1.694535.3.579. 2.462 Unknown [id number] 2.16.840.1.310609.3.579. 2.462 Unknown [id number] 2.16.840.1.370430.3.579. 2.462 Unknown [id number] 2.16.840.1.797986.3.579. 2.462 Unknown [id number] 2.16.840.1.187712.3.579. 2.462 Unknown [id number] 2.16.840.1.864269.3.579. 2.462 Social History Date Type Detail Facility Start: 11-13-2017 End: 02-12-2025 Tobacco smoking status MSIS Never smoker [facility] Start: 1995 Sex Assigned [facility] Start: 08-23-2018 [facility] Start: 10-02-2019 End: 07-21-2021 Alcohol intake Current non-drinker of alcohol (finding) [facility] Start: 10-27-2020 End: 11-15-2024 Tobacco use and exposure Never used [facility] Start: 05-13-2024 End: 01-12-2025 Exposure to SARS-CoV-2 (event) Not sure [facility] Start: 01-19-2021 Alcohol intake Lifetime non-d myron (finding) [facility] Work Phone: Start: 01-16-2021 End: 07-04-2021 History SDOH Alcohol Frequency 1 [facility] Work Phone: Start: 07-04-2021 History SDOH Social Connections Get Together 3 [facility] Start: 07-04-2021 History SDOH Financial 5 [facility] Start: 07-04-2021 History SDOH Transport Med 2 [facility] Start: 05-23-2024 Tobacco smoking status NHIS Tobacco smoking consumption unknown [facility] Start: 11-15-2024 End: 01-30-2025 Gender identity Not on file [facility] Work Phone: Start: 11-15-2024 End: 01-30-2025 Alcoholic beverage intake Current drinker of alcohol (finding) [facility] Work Phone: Start: 11-15-2024 End: 01-30-2025 History of Social function [facility] Work Phone: Start: 11-15-2024 Alcohol Comment rare [facility] Work Phone: Start: 1995 [facility] Start: 01-12-2025 Gender identity Identifies as female gender (finding) [facility] Work Phone: Start: 01-12-2025 Sexual orientation Heterosexual (fin ding) [facility] Work Phone: NEGATED: Highlighted rowStart: NINF History of tobacco use Passive smoker [facility] Work Phone: NEGATED: Highlighted row Not [facility] Medical Equipment Procedure Code Equipment Code Equipment Origin al Text Equipment Identifier Dates Insertion, vascular access port ([id number]) Vascular port/catheter [id number] FDA Start: 02-13-2025 Goals Date Patient Goal Desired Activity /State Functional Status Date Assessment Result Facility 01-30-2025 Patient Health Quest ionnaire 2 item (PHQ-2) [Reported] [facility] Work Phone: Mental Status Date Assessment Result Facility 02-13-2025 Cognitive function Voice/Name [facility] Work Phone: 02-13-2025 Cognitive function Patient Olga ibrahim Person;Place;Time [facility] Work Phone: Clinical Notes 01-19-2021 to 02-14-2025 Note Date & Type Note Facility 02-14-2025 Nuclear medicine Diagnostic study note [facility] Imaging Services [address] [place] [address] Bone Scan Whole Body MR#: [id number] Acct: [id number] Name: SHAUNA RAINEY Rep #: [id number] : 1995 F 29 From: Faizan Pederson MD PCP: YENNI Hartman Status: REG CLI Study:Bone Scan Whole Body Date of Exam: 02/14/25 Exam# [id number] Ordering Dr: Sheila Fisher NP PROCEDURE: BONE SCAN WHOLE BODY 02/14/2025 REASON FOR EXAM: BREAST CANCER STAGING TECHNIQUE: Delayed whole-body bone scan after radiopharmaceutical administration RADIOPHARMACEUTICAL: 27.1 mCi Technetium-99m MDP IV COMPARISON: None. FINDINGS: No evidence of osseous metastatic disease. No significant area of abnormal uptake is noted. NM/Bone Scan Whole Body IMPRESSION: No scintigraphic evidence of osseous metastatic disease. Reading Location: [address] CC: CHEMICAL TREATMENT PLANT TECHNICIANWilli Eubanks; YENNI Hartman ~ Meteorological Aide: Signed [facility] 02-13-2025 History and physi hilario note Note Date/Time February 13, 2025 7:21a m [facility] Medical Records Department [address] [place] [address] History & Physical Exam 02/13/25 0719 MR#: [id number] Acct: [id number] Name: SHAUNA RAINEY Rep #:[id number] : 1995 29 From: Tamiko Figueroa MD PCP: YENNI Hartman Status:[facility] Location: [place] [address] History and Physical Date of Admission: 02/13/25 Date of Service: 01/23/25 MR#: [id number] Acct: [id number] Name: SHAUNA RAINEY Rep #: [id number] : 1995 Provider: Dr. 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 Ultrasound did not show any abnormal or [...] cooperative, healthy appearing and no acute distress [facility] Head: normal to inspection Chest Other: Breast [...] site of unspecified female breast Genetic Counseling, [facility] C50.919 - Malignant neoplasm of unspecified site of unspecified female breast Plan Reviewed patient's mammography as well as ultrasound with the patient and her I did also personally review. Discussed with patient and her since she is HER2 positive, ER/OK negative, will refer to oncology. Likely she [...] to Dr. Pantoja. Tamiko Figueroa M.D. Pager: [phone] [facility] [address] [place] [address], [address] [place] [address] Office: 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 Tamiko Figueroa MD; YENNI Hartman~ Signed ADDENDUM by Dr. Tamiko Figueroa MD on 02/13/25 at 0721 Addendum I have examined the patient the following changes are noted: Patient had an breast MRI which called a suspicious left axilla lymph node 6 mm in size, ultrasound did not show any suspicious lymph nodes in the left axilla, patient did have PET scan ordered however insurance denied it. Will plan to look with bedside ultrasound in the OR but patient may also need an MRI guided biopsy. Tamiko Figueroa M.D. Pager: [phone] [facility] [address] [place] [address], [facility], [address] [place] [address] Office: [phone] 02/13/25 0721<Electronically signed by Tamiko Figueroa MD> Cosigner Signature (if applicable): cc: Dr. Tamiko Figueroa MD; YENNI Hartman ~* Signed [facility] Work Phone: 1(104) 826-250607-08-2025 Consult note Author Nikunj Vasquze [facility] Note Date/Time February 13, 2025 7:19a m [facility] Medical Records Department [address] [place] [address] Pre-Anesthesia Evaluation 02/13/2513 MR#: [id number] Acct: [id number] Name: SHAUNA RAINEY Rep #:[id number] : 1995 29 From: Nikunj Vasquez MD PCP: YENNI Hartman Status:REG SDC Y Race: C Location: [place] [address] ASA Classification* ASA Classification ASA Classification: 2 Assessment & Plan Anesthesia* Anesthesia Assessment Anesthesia Assessment: Discussed sedation and/or anesthesia options, risks, benefits, and alternatives with patient/parents/legal guardian/POA. Questions invited. The patient/parents/legal guardian/POA seems to understand and agrees to proceedwith anesthesia plan. Reviewed the physical assessment, medical history, allergy history and patient home medications list prior to surgery/procedure/anesthetic and documented any changes. Performed airway and anesthesia risk assessments. Anesthesia Type Anesthesia Type: MAC History Source History Obtained from:: Patient and Chart Anesthesia Focused Assessment* Temperature: 97.5 F Pulse Rate: 73 Blood Pressure: 103/67 Respiratory Rate: 16 Pulse Ox: 99 Oxygen Delivery Method: Room Air Airway Assessment Mouth opens: >3 cm Mallampati Score: IV Teeth Condition: Chipped/Broken (Tooth #9 has been repaired. Unknown if it was bonded or crowned.) Neck Range of motion (ROM): Full ROM Labs Anesthesia Preop lab: CBC WBC 6.8 K/mm3 (4.4-11.0) 01/29/25 16:15 01/29/25 RBC 4.45 M/mm3 (4.2-5.4) 01/29/25 16:15 01/29/25 Hgb 13.2 g/dL (12.0-15.0) 01/29/25 16:15 01/29/25 Hct 39.7 % (37-47) 01/29/25 16:15 01/29/25 Plt Count 264 K/mm3 (150-450) 01/29/25 16:15 01/29/25 CHEMISTRY Potassium 3.8 mmol/L (3.3-5.1) 01/29/25 16:15 01/29/25 Sodium 139 mmol/L (133-145) 01/29/25 16:15 01/29/25 BUN 16 mg/dL (4-19) 01/29/25 16:15 01/29/25 Creatinine 0.61 mg/dL (0.70-1.20) L 01/29/25 16:15 Glucose 92 mg/dL (70-99) 01/29/25 16:15 01/29/25 TSH 0.85 uIU/mL (0.358-3.74) 03/18/21 12:45 COAG Urine Test Negative Negative 02/13/25 06:20 02/13/25 Pre-Assessment Diagnosis/Proposed Procedure Planned Operative Procedure(s): (R) Insertion, Vascular Port right poss left Anesthesia History Anesthesia History - hr operations advisor: Anesthesia History - hr operations advisor Hx Hospitalization Yes: 04/2024 PNEUMONIA 02/12/25 14:05 Any Problems With Anesthesia No 02/12/25 14:05 Cholinesterase deficiency No 02/12/25 14:05 You/Your Family Experience No 02/12/25 14:05 fever (hyperthermia) with Relationship Recent Exposure to Contagious No 02/13/25 06:47 Disease Does patient have nerve No 02/12/25 14:05 stimulator Patient instructed to have device shut off --Does patient have Pacemaker No 02/13/25 06:48 or ICD? When Was Last Pacemaker Check QUESTION #4 FULL TEXT: You/Your Family Experience fever (hyperthermia) with Anesthesia Last Oral Intake Last Oral intake: Last Oral Intake NPO since 00:00 02/13/25 06:48 Meds taken in AM with sips of No 02/13/25 06:48 water? Meds patient instructed to take am of surgery PONV PONV - hr operations advisor: PONV - hr operations advisor Female Yes 02/12/25 14:05 HX of Motion Sickness No 02/12/25 14:05 HX of N/V After Surgery No 02/12/25 14:05 Non-Smoker Yes 02/12/25 14:05 Duration of Surgery greater Yes 02/12/25 14:05 than 60 minutes Number of Risk Factors 3 02/12/25 14:05 PONV Score Moderate Risk 02/12/25 14:05 Height & Weight Height & Weight: Anesthesia: Height & Weight Height 5 ft 02/13/25 06:48 Weight: 73.8 kg 02/13/25 06:48 Body Mass Index (BMI) 31.7 02/13/25 06:48 Respiratory Assessment Respiratory Assessment - hr operations advisor: Respiratory Tract Infection Hx - hr operations advisor Hx Respiratory Tract Infection No 02/12/25 14:05 STOP Sleep Apnea STOP Sleep Apnea - hr operations advisor: STOP Sleep Apnea - hr operations advisor Hx Hypertension No 02/12/25 14:05 Hx Sleep Apnea No 02/12/25 14:05 CPAP BIPAP Do you snore loudly (louder No 02/12/25 14:05 than talking or can be heard Do you often feel tired/ No 02/12/25 14:05 fatigued/ sleepy during daytime? Has anyone observed you stop No 02/12/25 14:05 breathing during sleep? STOP Results Negative 02/12/25 14:05 QUESTION #5 FULL TEXT : Do you snore loudly (louder than talking or can be heard through closed doors)? 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 Specify any problems Hx of Preganancy in last 3 No 02/12/25 14:05 Months Nurse Filling Out Transfusion MGTRE 02/12/25 14:05 & Questions: Date: 02/12/25 02/12/25 14:05 Time: 14:08 02/12/25 14:05 Patient unable to answer at this time (ie. confused, unrespo /Reproduction History /Reproductive History - hr operations advisor: /Reproductive Hx- hr operations advisor Hx Now No 02/12/25 14:05 Gestational Age (in weeks): EDC: Hx Hx Para Hx Section SAB No 02/12/25 14:05 Active Medications Active Medications: Current Medications Generic Name Dose Route Start Last Admin Trade Name Freq PRN Reason Stop Dose Admin Lactated Ringer's 1,000 mls @ 15 mls/hr 02/13/25 06:15 02/13/25 06:52 IV 15 mls/hr .Q48H ENRQIUE Administration Cefazolin Sodium 2 gm/ Sodium 110 mls @ 200 mls/hr 02/13/25 07:07 Chloride IV 02/13/25 07:39 X1 ONE PFSH Medical History (Updated 02/12/25 @ 14:14 by Cori Zelaya) Wears glasses Non-smoker Shortness of breath on exertion History of echocardiogram Anemia Axillary lymphadenopathy Home Medications ?Medication ?Instructions ?Recorded ?Last Taken ?Type acetaminophen 500 mg capsule 1,000 mg PO Q6H PRN pain 02/12/25 Unknown History Allergy/AdvReac Type Severity Reaction Status Date / Time No Known Allergies Allergy Verified 02/12/25 14:03 Family History Other No pertinent family history Surgical History (Updated 02/12/25 @ 14:05 by Cori Zelaya) History of wisdom tooth extraction delivery delivered Social History Smoking Status: Never smoker alcohol intake: never Review of Systems (Anesthesia) ROS Narrative System reviewed and no additional complaints, except as documented. 02/13/25718 <Electronically signed by Nikunj ackerman MD> Date _ Nikunj Valeigner Signature: Date CC: ~ Signed [facility] Work Phone: 1(209) 435-906307-08-2025 Radiology Diagnostic study note [facility] Imaging Services [address] [place], [place] [address] Chest 1 View (Portable) MR#: [id number] Acct: [id number] Name: SHAUNA RAINEYA Rep #: [id number] : 1995 F 29 From: Faizan Pederson MD PCP: YENNI Hartman Status: [facility] Study:Chest 1 View (Portable) Date of Exam: 02/13/25 Exam# [id number] Ordering Dr: Tamiko Figueroa MD PROCEDURE: CHEST 1 VIEW (PORTABLE) 02/13/2025 REASON FOR EXAM: PORT TECHNIQUE: Frontal view of the chest. COMPARISON: None provided. RAD/Chest 1 View (Portable) IMPRESSION: A right subclavian central venous catheter with port is seen, with tip projecting near the expectedjunction of the SVC and right atrium. The cardiomediastinal silhouette is within the normal range. Lungs appear clear of acute disease. No pleural effusion or pneumothorax is noted. No acute osseous change is seen. Reading Location: [id number] CC: Dr. Tamiko Figueroa MD; YENNI Hartman ~ Meteorological Aide: Signed [facility]07-08-2025 Consult note [facility] Medical Records Department [address] [place] [address] Anesthesia Postop Eval I 02/13/25 0830 MR#: [id number] Acct: [id number] Name: SHAUNA RAINEY Rep #:[id number] : 1995 29 From: Bonnie KERR PCP: YENNI Hartman Status:[facility] Y Race: C Location: [place] [address] Anesthesia: Postop Eval I Current Vital Signs Temperature: 96.9 F Pulse Rate: 85 Blood Pressure: 108/57 Respiratory Rate: 16 Pulse Ox: 98 Oxygen Delivery Method: Room Air Assessment Airway patent: No Spontaneous unlabored respirations: Yes Mental status: Awake and Calm nausea: No Vomiting: No Anesthesia Complication: No Fluid Hydration Crystalloid volume administer (ml): 550 Total IV fluid infused: 550 Progress Note Post-operative progress note: stable moved self to cart Anesthesia document: Postop Eval 1 completed: Yes 02/13/25830 [employer]> Date _ Bonnie Ray [employer] Cosigner Signature: Date CC: ~ Signed [facility]07-08-2025 Discharge summary [facility] Medical Records Department [address] [place] [address] Instructions for Home/Discharge Instructions 02/13/25823 MR#: [id number] Acct: [id number] Name: SHAUNA RAINEYA Rep #:[id number] : 1995 29 From: Tamiko Figueroa MD PCP: YENNI Hartman Status:[facility] Discharge Instructions Procedure Port-A-Cath Diet Discharge Diet: Light diet - advance as tolerated Activity May shower in (days): 5 (Keep port site clean and dry x5 days. Neck incision okay to get wet after 1 day. Okay to lower shower and upper sponge bath. OR okay to taper off port site with a Ziploc bag to shower) Lifting Restrictions: No lifting > 15 pounds for 3 days with the arm on the sideof the port Dressing / Incision Call your doctor if your incision/area has: Continuous Slow Oozing, Sudden Increased Bleeding, Increased Pain/ Swelling, Increased Redness, Foul Smelling Discharge and Swelling at the incision site Call your doctor if you observe: Fever of 101 or Higher Change Dressing in: 2 days (2-3 days- port site; ok to remove neck opsite in 1 day) Follow Up Care Please Follow Up With: Tamiko Figueroa MD When: In 10 days for permanent suture removal?call office for appointment Test Results: Test results from this visit will be discussed in further detail at your follow- up appointment, if applicable. Discharge Plan Admission Attending Provider: Tamiko Figueroa Primary Care Provider: Ryan Cochran Instructions Print Language: Kazakh Discharge Orders/Prescriptions Prescriptions: New oxycodone 5 mg capsule 5 mg PO Q6H PRN (Reason: pain) 3 Days Qty: 5 0RF No Action acetaminophen 500 mg capsule 1,000 mg PO Q6H PRN (Reason: pain) Referrals / Follow Up: Ryan Cochran PA [Primary Care Provider] - Disposition Disposition (needs filled in before D/C Order can be placed): Home, Self Care 02/13/25 0825Tamiko Figueroa MD CC: YENNI Hartman ~ Signed [facility]07-08-2025 History and physical note [facility] Medical Records Department [address] [place] [address] History & Physical Exam 02/13/25 0719 MR#: [id number] Acct: [id number] Name: SHAUNA RAINEY Rep #:[id number] : 1995 29 From: Tamiko Figueroa MD PCP: YENNI Hartman Status:[facility] Location: [place] [address]-1 History and Physical Date of Admission: 02/13/25 Date of Service: 01/23/25 MR#: [id number] Acct: [id number] Name: SHAUNA RAINEY Rep #: [id number] : 1995 Provider: Dr. 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 Ultrasound did not show any abnormal or [...] cooperative, healthy appearing and no acute distress [facility] Head: normal to inspection Chest Other: Breast [...] and her since she is HER2 positive, ER/OK negative, will refer to oncology. Likely she [...] to Dr. Pantoja. Tamiko Figueroa M.D. Pager: [phone] [facility] [address] [place] [address], [place] [id number] Office: 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 Tamiko Figueroa MD; YENNI Hartman~ Signed ADDENDUM by Dr. Tamiko Figueroa MD on 02/13/25 at 0721 Addendum I have examined the patient the following changes are noted: Patient had an breast MRI which calleda suspicious left axilla lymph node 6 mm in size, ultrasound did not show any suspicious lymph nodes in the left axilla, patient did have PET scan ordered however insurance denied it. Will plan to look with bedside ultrasound in the OR but patient may also need an MRI guided biopsy. Tamiko Figueroa M.D. Pager: [phone] [facility] [address] [place] [address], [facility], [place] [id number] Office: [phone] 02/13/25 07 Cosigner Signature (if applicable): cc: Dr. Tamiko Figueroa MD; YENNI Hartman ~* Signed [facility]07-08-2025 Consult note [facility] Medical Records Department [address] [place], [place] [id number] Pre-Anesthesia Evaluation 02/13/25712 MR#: [id number] Acct: [id number] Name: SHAUNA RAINEY Rep #:[id number] : 1995 29 From: Nikunj Vasquez MD PCP: YENNI Hartman Status:REG [facility] Y Race: C Location: [place] [address] ASA Classification* ASA Classification ASA Classification: 2 Assessment & Plan Anesthesia* Anesthesia Assessment Anesthesia Assessment: Discussed sedation and/or anesthesia options, risks, benefits, and alternatives with patient/parents/legal guardian/POA. Questions invited. The patient/parents/legal guardian/POA seems to understand and agrees to proceedwith anesthesia plan. Reviewed the physical assessment, medical history, allergy history and patient home medications list prior to surgery/procedure/anesthetic and documented any changes. Performed airway and anesthesia risk assessments. Anesthesia Type Anesthesia Type: MAC History Source History Obtained from:: Patient and Chart Anesthesia Focused Assessment* Temperature: 97.5 F Pulse Rate: 73 Blood Pressure: 103/67 Respiratory Rate: 16 Pulse Ox: 99 Oxygen Delivery Method: Room Air Airway Assessment Mouth opens: >3 cm Mallampati Score: IV Teeth Condition: Chipped/Broken (Tooth #9 has been repaired. Unknown if it was bonded or crowned.) Neck Range of motion (ROM): Full ROM Labs Anesthesia Preop lab: CBC WBC 6.8 K/mm3 (4.4-11.0) 01/29/25 16:15 01/29/25 RBC 4.45 M/mm3 (4.2-5.4) 01/29/25 16:15 01/29/25 Hgb 13.2 g/dL (12.0-15.0) 01/29/25 16:15 01/29/25 Hct 39.7 % (37-47) 01/29/25 16:15 01/29/25 Plt Count 264 K/mm3 (150-450) 01/29/25 16:15 01/29/25 CHEMISTRY Potassium 3.8 mmol/L (3.3-5.1) 01/29/25 16:15 01/29/25 Sodium 139 mmol/L (133-145) 01/29/25 16:15 01/29/25 BUN 16 mg/dL (4-19) 01/29/25 16:15 01/29/25 Creatinine 0.61 mg/dL (0.70-1.20) L 01/29/25 16:15 Glucose 92 mg/dL (70-99) 01/29/25 16:15 01/29/25 TSH 0.85 uIU/mL (0.358-3.74) 03/18/21 12:45 COAG Urine Test Negative Negative 02/13/25 06:20 02/13/25 Pre-Assessment Diagnosis/Proposed Procedure Planned Operative Procedure(s): (R) Insertion, Vascular Port right poss left Anesthesia History Anesthesia History - hr operations advisor: Anesthesia History - hr operations advisor Hx Hospitalization Yes: 04/2024 PNEUMONIA 02/12/25 14:05 Any Problems With Anesthesia No 02/12/25 14:05 Cholinesterase deficiency No 02/12/25 14:05 You/Your Family Experience No 02/12/25 14:05 fever (hyperthermia) with Relationship Recent Exposure to Contagious No 02/13/25 06:47 Disease Does patient have nerve No 02/12/25 14:05 stimulator Patient instructed to have device shut off --Does patient have Pacemaker No 02/13/25 06:48 or ICD? When Was Last Pacemaker Check QUESTION #4 FULL TEXT: You/Your Family Experience fever (hyperthermia) with Anesthesia Last Oral Intake Last Oral intake: Last Oral Intake NPO since 00:00 02/13/25 06:48 Meds taken in AM with sips of No 02/13/25 06:48 water? Meds patient instructed to take am of surgery PONV PONV - hr operations advisor: PONV - hr operations advisor Female Yes 02/12/25 14:05 HX of Motion Sickness No 02/12/25 14:05 HX of N/V After Surgery No 02/12/25 14:05 Non-Smoker Yes 02/12/25 14:05 Duration of Surgery greater Yes 02/12/25 14:05 than 60 minutes Number of Risk Factors 3 02/12/25 14:05 PONV Score Moderate Risk 02/12/25 14:05 Height & Weight Height & Weight: Anesthesia: Height & Weight Height 5 ft 02/13/25 06:48 Weight: 73.8 kg 02/13/25 06:48 Body Mass Index (BMI) 31.7 02/13/25 06:48 Respiratory Assessment Respiratory Assessment - hr operations advisor: Respiratory Tract Infection Hx - hr operations advisor Hx Respiratory Tract Infection No 02/12/25 14:05 STOP Sleep Apnea STOP Sleep Apnea - hr operations advisor: STOP Sleep Apnea - hr operations advisor Hx Hypertension No 02/12/25 14:05 Hx Sleep Apnea No 02/12/25 14:05 CPAP BIPAP Do you snore loudly (louder No 02/12/25 14:05 than talking or can be heard Do you often feel tired/ No 02/12/25 14:05 fatigued/ sleepy during daytime? Has anyone observed you stop No 02/12/25 14:05 breathing during sleep? STOP Results Negative 02/12/25 14:05 QUESTION #5 FULL TEXT : Do you snore loudly (louder than talking or can be heard through closeddoors)? 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 Specify any problems Hx of Preganancy in last 3 No 02/12/25 14:05 Months Nurse Filling Out Transfusion MGRIFFITH 02/12/25 14:05 & Questions: Date: 02/12/25 02/12/25 14:05 Time: 14:08 02/12/25 14:05 Patient unable to answer at this time (ie. confused, unrespo /Reproduction History /Reproductive History - hr operations advisor: /Reproductive Hx- hr operations advisor Hx Now No 02/12/25 14:05 Gestational Age (in weeks): EDC: Hx Hx Para Hx Section SAB No 02/12/25 14:05 Active Medications Active Medications: Current Medications Generic Name Dose Route Start Last Admin Trade Name Freq PRN Reason Stop Dose Admin Lactated Ringer's 1,000 mls @ 15 mls/hr 02/13/25 06:15 02/13/25 06:52 IV 15 mls/hr .Q48H ENRIQUE Administration Cefazolin Sodium 2 gm/ Sodium 110 mls @ 200 mls/hr 02/13/25 07:07 Chloride IV 02/13/25 07:39 X1 ONE PFSH Medical History (Updated 02/12/25 @ 14:14 by Cori Zelaya) Wears glasses Non-smoker Shortness of breath on exertion History of echocardiogram Anemia Axillary lymphadenopathy Home Medications ?Medication ?Instructions ?Recorded ?Last Taken ?Type acetaminophen 500 mg capsule 1,000 mg PO Q6H PRN pain 02/12/25 Unknown History Allergy/AdvReac Type Severity Reaction Status Date / Time No Known Allergies Allergy Verified 02/12/25 14:03 Family History Other No pertinent family history Surgical History (Updated 02/12/25 @ 14:05 by Cori Zelaya) History of wisdom tooth extraction delivery delivered Social History Smoking Status: Never smoker alcohol intake: never Review of Systems (Anesthesia) ROS Narrative System reviewed and no additional complaints, except as documented. 02/13/25718 meka MATOS> Date _ Nikunj Vasquez MD [facility] Signature: Date CC: ~ Signed [facility]07-08-2025 [facility] Medical Records Department [address] [place] [address] History Physical Exam 02/13/25718 MR#: [id number] Acct: [id number] Name: SHAUNA RAINEY Rep #: [id number] : 1995 29 From: Tamiko Figueroa MD PCP: YENNI Hartman Status:[facility] Location: [place] [address] History and Physical Date of Admission: 02/13/25 Date of Service: 01/23/25 MR#: [id number] Acct: [id number] Name: SHAUNA RAINEY Rep #: [id number] : 1995 Provider: Dr. Tamiko Figueroa MD Age/Sex: 29/F Location: [facility] Status: Signed Intake Vital Signs 01/23/2509:59 Height 5 ft Weight: 160 lb 6 [...] tablet 650 mg PO Q4-6H PRN 01/23/25 01/23/25 History (Tylenol) PFSH Surgical History (Updated [...] showed invasive ductal carcinoma grade 2- 3, ER/OK negative, HER2 positive at in [place]. Ultrasound did not show any abnormal or [...] cooperative, healthy appearing and no acute distress [facility] Head: normal to inspection Chest Other: Breast [...] Status: Deleted (2) HER2-positive carcinoma of left br (more content not included)...[facility]06-27-2025 Radiology Diagnostic study note [facility] Imaging Services [address] [place], [place] [id number] Breast Limited Unilateral MR#: [id number] Acct: [id number] Name: SHAUNA RAINEY Rep #: [id number] : 1995 F 29 From: Keshia Garcia MD PCP: YENNI Hartman Status: REG CLI Study:Breast Limited Unilateral Date of Exam: 01/31/25 Exam# [id number] Ordering Dr: Tamiko Figueroa MD PROCEDURE: BREAST LIMITED UNILATERAL 01/31/2025 REASON FOR EXAM: F, Age 29 y/o , LEFT BREAST CANCER, ABN BREAST MRI COMPARISON: MRI 01/25/2025. TECHNIQUE: Targeted left axillary/breast ultrasound was performed. FINDINGS: Follow-up examination performed for the left axillary lymph node visualized on the MRI of 01/25/2025. On the present examination, there are 3 architecturally normal-appearing left axillary lymph nodes with preserved fatty margarita and normal cortical thickness. The largest lymph node measures 1.7 x 1.0 x 0.9 cm with cortical thickness of 0.2 cm. The other lymph nodes measure 1.7 x 0.9 x 0.7 cm with cortical thickness of 0.2 cm and 0.6 x 0.6 x 0.4 cm withcortical thickness of 0.1 cm. US/Breast Limited Unilateral IMPRESSION: Architecturally normal-appearing left axillary lymph nodes. BI-RADS 2: BENIGN. RECOMMENDATION: OTHERSurgical/oncologic management for the biopsy-proven left breast malignancy. Reading Location: [facility] CC: Dr. Tamiko Figueroa MD; YENNI Hartman ~ Meteorological Aide: Signed [facility]06-24-2025 History of Present illness Narrative* YENNI Walker-Gurdeep - 01/30/2025 1:40 PM EDT Subjective Patient ID: Shauna Rainey is a 29 y.o. 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 and has followed with the surgeon and specialists in [place] a few times She is awaiting genetic [...] buspar as well if needed Preventative testing [facility] Mammo DEXA Colon Fall NEG November [...] medications for this visit. documented in this [facility] Work Phone: 1(244) 716-547106-23-2025 Progress [facility] [address] [place] [address] OFFICE VISIT Date of Service: 01/29/25 1515 MR#: [id number] Acct: [id number] Name: SHAUNA RAINEY Rep #: [id number] : 1995 From: Ara steele MD Age/Sex: 29/F Location: [facility] Status: Signed HPI Subjective Date of Service [...] and DCIS. The cancer is ER negative, OK negative and HER2/camila overexpressed 3+. January 25, [...] FINAL ASSESSMENT BI-RADS 6: KNOWN BIOPSY-PROVEN MALIGNANCY. [facility] History (Updated 01/29/25 @ 16:03 by [...] no focal motor deficits Coordination / Balance: qtomar-ed-ycpc test normal Speech: speech normal Gait (Neuro): [...] cancer of the left breast ER negative, OK negative, HER2/camila overexpressed 3+ with an abnormal [...] She will make anappointment to see her FINANCIAL RECORDING CLERK to discuss these 2 issues further. 4. [...] impression and plan discussed Ara Franklin MD Director Broadcast, [facility] Divisions of Medical Oncology & Hematology Department of Internal Medicine [address] [address] This note was generated using a voice [...] fallen in the past year?: No 01/29/25 1615 chandan MATOS> Date _ Ara Franklin MD Cosigner Signature: Date (if applicable) CC: Dr. Tamiko Figueroa MD; YENNI Hartman ~ [facility]06-23-2025 Progress note Author Ara Franklin [facility] Note Date/Time January 29, 2025 4:15 pm [facility] [address] [address] OFFICE VISIT Date of Service: 01/29/25 1515 MR#: [id number] Acct: [id number] Name: SHAUNA RAINEYA Rep #: [id number] : 1995 From: Ara steele MD Age/Sex: 29/F Location: [facility] Status: Signed HPI Subjective Date of Service [...] and DCIS. The cancer is ER negative, OK negative and HER2/camila overexpressed 3+. January 25, [...] FINAL ASSESSMENT BI-RADS 6: KNOWN BIOPSY-PROVEN MALIGNANCY. [facility] Medical History (Updated 01/29/25 @ 16:03 by [...] no focal motor deficits Coordination / Balance: ejixoi-id-pfsq test normal Speech: speech normal Gait (Neuro): [...] cancer of the left breast ER negative, OK negative, HER2/camila overexpressed 3+ with an abnormal [...] She will make anappointment to see her FINANCIAL RECORDING CLERK to discuss these 2 issues further. 4. [...] impression and plan discussed Ara Franklin MD Director Broadcast, [facility] Divisions of Medical Oncology & Hematology Department of Internal Medicine [place] [address] This note was generated using a voice [...] fallen in the past year?: No 01/29/25 4705 <Electronically signed by Ara hawley MD> Date _ [facility] Signature: Date (if applicable) CC: Dr. Tamiko Figueroa MD; YENNI Hartman ~ [facility] Work Phone: 1(223) 544-633506-17-2025 Evaluation note* Diagnosis Onset Date Resolution Status [...] 2025 3:08pm Anemia chronic January 29 3:08pm [facility] Work Phone: 1(972) 250-438606-17-2025 Evaluation note* Diagnosis Onset Date Resolution Status [...] 2025 3:08pm Anemia chronic January 29 3:08pm Encounter for breast reconstruction following mastectomy acute February 08, 2025 1 :55pm HER2-positive carcinoma of l eft breast acute February 08, 2025 1 :55pm Invasive ductal carcinoma of left breast acute February 08, 2025 1 :55pm [facility] Work Phone: 1(519) 775-376506-17-2025 [facility] [address] [place], [place] [address] OFFICE VISIT Date of Service: 01/23/25 MR#: [id number] Acct: [id number] Name: SHAUNA RAINEY Rep #: [id number] : 1995 Provider: Dr. Niall Figueroa MD Age/Sex: 29/F Location: [facility] Status: Signed Intake Vital Signs 01/23/25 09:59 [...] biopsy showed invasive ductal carcinoma grade 2-3, ER/OK negative, HER2 positive at in [place]. Ultrasound did not show any abnormal or [...] cooperative, healthy appearing and no acute distress [facility] Head: normal to inspection Chest Other: Breast [...] and her since she is HER2 positive, ER/OK negative, will refer to oncology. Likely she [...] to Dr. Pantoja. Tamiko Figueroa M.D. Pager: [phone] [facility] [address] [place] [address] [address] [place] [address] Office: 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 Aden Winslow MD; Dr. Ara Franklin MD; Dr. Michael Pantoja MD; YENNI Paige ~ [facility]06-17-2025 Progress note Author Tamiko Figueroa [facility] Note Date/Time January 23, 2025 10:5 0am [facility] [address] [place] [address] OFFICE VISIT Date of Service: 01/23/25 MR#: [id number] Acct: [id number] Name: SHAUNA RAINEY Rep #: [id number] : 1995 Provider: Dr. Niall Figueroa MD Age/Sex: 29/F Location: [facility] Status: Signed Intake Vital Signs 01/23/25 09:59 [...] biopsy showed invasive ductal carcinoma grade 2-3, ER/OK negative, HER2 positive at in [place]. Ultrasound did not show any abnormal or [...] cooperative, healthy appearing and no acute distress [facility] Head: normal to inspection Chest Other: Breast [...] site of unspecified female breast Genetic Counseling, [facility] C50.919 - Malignant neoplasm of unspecified site of unspecified female breast Plan Reviewed patient's mammography as well as ultrasound with the patient and her I did also personally review. Discussed with patient and her since she is HER2 positive, ER/OK negative, will refer to oncology. Likely she [...] to Dr. Pantoja. Tamiko Figueroa M.D. Pager: [phone] [facility] [address] [place] [address], [address] [place] [address] Office: [phone] Coding Level of Care Code Off vis,new,level [...] Dr. Michael Pantoja MD; YENNI Paige ~ [facility] Work Phone: 1(722) 442-192706-06-2025 Nurse Note* Vik Petersne RN - 01/12/2025 11:35 AM EDT Dc instructions provided and reviewed without questions. Patient dc'd home with mother. Patient ambulates to lobby with slow and steady gait. [facility] Work Phone: 1(990) 477-832306-06-2025 Nurse Note* Vik Petersen RN - 01/12/2025 11:35 AM EDT Dc instructions provided and reviewed without questions. Patient dc'd home with mother. Patient ambulates to lobby with slow and steady gait. documented in this [facility] Work Phone: 1(177) 175-185705-29-2025 History of Present illness Narrative* Ryan Cochran PA-C - 01/04/2025 9:40 AM EDT Subjective Patient ID: Shauna Rainey is a 29 y.o. female who presents for Follow-up (C/O INDENT IN LT BREAST) HPI Breast concerns L breast indent x 1 year and thinks it is getting worse She aranza hx of mammo Last visit with FINANCIAL RECORDING CLERK was within 6 mo - she didn't mention it then but states she did have the spot but the FINANCIAL RECORDING CLERK did not note concern during her PE Pt youngest was born in 2020 and breast fed sometime into 2022 Pt denies unexplainable wt loss, fever, nipple discharge or fam hx of breast cancer Med check - currently not taking meds and denies changes in meds in the past year prior to this Preventative testing [facility] Mammo DEXA Colon Fall NEG November [...] medications for this visit. [facility] Work Phone: 1(385) 927-956204-09-2025 History of Present illness Narrative* Ryan Cochran [...] other symptoms We discussed diet and ex, mva operator, labs, injectables, adipex. Pt to check with insurance and get her labs done and if approp can call to start wegovy type med if she wishes but is aware she would need to be seen monthly for wt checks in the beginning Preventative testing PAP - [facility] Mammo DEXA Colon Fall NEG November [...] 3-12 mo with wellness / LABS at [facility] -= pt to call documented in this [facility]University [facility] Work Phone: 1(379) 223-535910-17-2024 NoteS DISCHARGE SUMMARY -- [facility] Shauna Rainey Admitted: 05/23/2024 Discharge Date: 05/25/24 PCP Handoff Recommended Outpatient Testing None Results Pending At Discharge None Clinical Summary Shauna Rainey is a 28 y.o. female patient of Kinjal [place] MD with history of depression presented to [facility] on 05/23/2024 with shortness of breath, hypoxia and tachycardia. Patient transferred from [facility] ER. Acute hypoxic respiratory failure, resolved Community-acquired pneumonia, Rt basilar lobe Failed outpatient treatment CXR reviewed showed perihilar opacities considering superimposed infection. CT PE was negative for PE, showed patchy right basilar airspace opacity Patient was hypoxic when she presented to the [place] ER S/p 7-day of doxycycline as an [...] tablet Physician(s) Follow Up: Kinjal Cleveland MD [facility] [place] [id number] Schedule an appointment as soon as possible for a visit Condition at Discharge: Stable Disposition: Home I reviewed discharge recommendations with the patient in person. Patient instructions, including activity, were given to the patient/family at discharge. On day of discharge I saw Shauna Rainey and spent: > 30 minutes on discharge. Completed by: Cassanrda David MD on 05/25/24, 12:56 PM AUTHENTICATED BY CASSANDRA DAVID, ON 05/25/2024 12:58:[address] [place] [address] 05-24-2024 NoteS PROGRESS NOTE Assessment and Plan Shauna Rainey is a 28 y.o. female patient of Kinjal Cleveland MD with history of depression presented to [facility] on 05/23/2024 with shortness of breath, hypoxia and tachycardia. Patient transferred from [facility] ER. Acute hypoxic respiratory failure, resolved Community-acquired pneumonia, Rt basilar lobe Failed outpatient treatment CXR reviewed showed perihilar opacities considering superimposed infection. CT PE was negative for PE, showed patchy right basilar airspace opacity Patient was hypoxic when she presented to the [place] ER S/p 7-day of doxycycline as an [...] affect AUTHENTICATED BY CASSANDRA DAVID, ON 05/24/2024 09:56:40[facility] 05-23-2024 NoteHMS HISTORY AND PHYSICAL -- [facility] Patient Name: Shauna Rainey DOB: 1995 MR #: [id number] Admit Date: 05/23/2024 Physicians: Kinjal Cleveland MD (Family); Mariela Schulz DO (Referring) Shauna Rainey is a 28 y.o. female patient of Kinjal Cleveland MD with history of depression presented to [facility] on 05/23/2024 with shortness of breath, hypoxia and tachycardia. Patient transferred from [facility] ER. Acute hypoxic respiratory failure, resolved Community-acquired pneumonia Failed outpatient treatment CXR reviewed showed perihilar opacities considering superimposed infection. CT PE was negative for PE, showed patchy right basilar airspace opacity Patient was hypoxic when she presented to the [place] ER S/p 7-day of doxycycline as an outpatient Elevated D-dimer 9 days ago Admit to [facility] with telemetry Continue respiratory monitoring, keep SpO2 [...] hospital or ED yes -- care site [facility] Quality Measures DVT Prophylaxis: lovenox [place] Catheter: absent Medication Reconciliation: Verified Admitted with [...] MD with history of depression presented to [facility] on 05/23/2024 with shortness of breath, hypoxia and tachycardia. Patient transferred from [facility] ER. Patient just finished [...] affect AUTHENTICATED BY NATALYA SOSA, ON 05/23/2024 15:10:25[facility]10-14-2024 Emergency department Note* Mariela Schulz, DO - [...] will require admission and be transferred to [place]. History provided by: Patient Patient History Past [...] Roberto Ortiz 05/23/2024 1:56 AM Dictation workstation: [id number] XR chest 2 views Final Result Mild increased perihilar opacities suggestive of developing interstitial edema. Superimposed infection not excluded. Clinical correlation and continued short-term follow-up is advised. MACRO: None Signed by: Neva Perdomo 05/22/2024 10:31 PM Dictation workstation: [id number] Labs Reviewed CBC WITH AUTO DIFFERENTIAL - [...] Course & MDM ED Course as of 05/23/24225 Mon May 22, 20242223 Twelve-lead EKG interpreted by myself at 2150 1 sinus tachycardia at 120 2 normal axis 3 rightatrial enlargement [MS] ED Course User Index [MS] Mariela Schulz DO Diagnoses as of 05/23/24225 Pneumonia due to infectious organism, unspecified laterality, unspecified part of lung No data recorded [place] Coma Scale Score: 15 (05/22/24 2151 : Lana Tamayo RN) Medical Decision Making Transfer to [facility] Procedure Procedures Mariela Schulz DO 05/23/24225 documented in this [facility] Work Phone: 1(298) 303-647610-14-2024 Physician Emergency department Note* Mariela Schulz DO [...] will require admission and be transferred to [place]. History provided by: Patient Patient History Past [...] Roberto Ortiz 05/23/2024 1:56 AM Dictation workstation: [id number] XR chest 2 views Final Result Mild increased perihilar opacities suggestive of developing interstitial edema. Superimposed infection not excluded. Clinical correlation and continued short-term follow-up is advised. MACRO: None Signed by: Neva Perdomo 05/22/2024 10:31 PM Dictation workstation: [id number] Labs Reviewed CBC WITH AUTO DIFFERENTIAL - [...] unspecified part of lung No data recorded [place] Coma Scale Score: 15 (05/22/241 : Lana Tamayo RN) Medical Decision Making Transfer to [facility] Procedure Procedures Mariela Schulz DO 05/23/24225 [facility] Work Phone: 1(316) 627-344312-13-2021 History of Present illness Narrative* Era Giordano CNP - 07/21/2021 2:05 PM EST Associated Order(s): LG Jt Injection/Arthrocentesis: L glenohumeral LG Jt Injection/Arthrocentesis: L glenohumeral Performed by: Era Giordano CNP Authorized by: Era Giordano CNP CPT 52837 - Large Joint Arthrocentesis: Consent given by: [...] 07/21/2021 2:05 PM EST [facility] [address] [facility] [address] [facility] [id number] Chief Complaint Patient presents with Left Shoulder [...] with the treatment plan. documented in this [id number] History of Present illness Narrative* Kinjal Cleveland MD - 07/04/2021 12:46 PM EST [...] effects of the medications. 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 YES: This patient delivered between 66h5l-84c6o for the following acceptable indication(s) for delivery: [...] Information for the patient's : Vinicius More [[id number]] male Weight: 4 lb 9 oz (2.07 kg) Apgars: Information for the patient's : Vinicius More [[id number]] One Minute : 6 Five Minute : 8 Course: Uncomplicated yes : Male infant Blood Type/Rh: A POS Antibody Screen: Antibody Screen Date Value Ref Range Status 01/16/2021 NEG NA Final Rubella: No results found for: RUBELLAIGG Contraception: will discuss with her [place] provider : yes VTE Prophylaxis: Not Indicated Meds: Shauna More Home Medication Instructions CHENTE:[id number] Printed on:01/19/21 1320 Medication Information acetaminophen (TYLENOL) [...] Venita Castaneda MD on 01/19/2021 at 1:20 [facility]06-13-2021 Hospital Discharge instructions* Instructions* Venita Castaneda MD - 01/19/2021 Images from the original note were not included. After Your Delivery (the Period): Your Care Instructions Thank you for allowing us to care of you at [facility]. This time can be one of many [...] over the next few weeks. Bleeding may greens picker and then decrease again around 7-10 [...] avoid constipation you may take a mild yutl-qjz-iusfwcn stool softener (such as colace) as recommended [...] clean your hands with an alcohol-based hand marketing systems analyst that contains at least 60% alcohol. Clean your hands often Wash your hands often with soap and water for at least 20 seconds, especially after blowing your nose, coughing, or sneezing; going to the bathroom; and before eating or preparing food. If soap and water are not readily available, use an alcohol-based hand marketing systems analyst with at least 60% alcohol, covering all [...] healthcare provider to call the local or [facility] health department. Persons who are placed [...] isolation precautions should be made on a tagl-vh-lpcz basis, in consultation with healthcare providers and [facility] health departments. Information on COVID-19 for all [...] respiratory tract signs and symptoms. Ways to [place] with Anxiety & Stress It is normal [...] an illness that was first found in [facility], in July 2019. It has since spread [...] seen in people before. This virus spreads awiocp-wt-lbleen through droplets from coughing and sneezing. It [...] water aren't available, use an alcohol-based hand marketing systems analyst. Call 911 anytime you think you may [...] as of: November 08, 2019 Content Version: 12. Declara. Care instructions adapted under license by your healthcare professional. If you have questions about a medical condition or this instruction, always ask your healthcare professional. Declara disclaims any warranty or liability for your use of this information. General Recommendations for Routine Cleaning and Disinfection of Households Community members can practice routine cleaning of frequently touched surfaces (for example: tables, doorknobs, light switches, handles, desks, toilets, faucets, sinks) with household manager diesel and EPA-registered disinfectants that are appropriate for [...] appropriate. These supplies include tissues, paper towels, manager diesel and EPA-registered disinfectants (see list link at [...] be used for other purposes. Consult the leather heel breaster's instructions for cleaning and disinfection products used. [...] used if appropriate for the surface. Follow leather heel breaster's instructions for application and proper ventilation. Check [...] o Products with EPA-approved emerging viral pathogens [facility] iconexternal icon are expected to be effective against COVID-19 based on data for harder to kill viruses. Follow the leather heel breaster's instructions for all cleaning and disinfection products (e.g., concentration, application method and contact time, etc.). Soft (porous) surfaces such as carpeted floor, rugs, and drapes Remove visible contamination if present and clean with appropriate manager diesel indicated for use on these surfaces. After cleaning: Launder items as appropriate in accordance with the leather heel breaster's instructions. If possible, launder items using the [...] items as appropriate in accordance with the leather heel breaster's instructions. If possible, launder items using the warmest appropriate water setting for the items and dry items completely. Dirtylaundry from an ill person can be washed with other people's items. o Clean and disinfect clothes hampers according to guidance above for surfaces. If possible, consider placing a bag loader machine operator that is either disposable (can be thrown away) or can be laundered. CDC has a list of EPA approved cleaning products on their website - https://www.cdc.gov/coronavirus/ 2019-ncov/community/home/cleaning-disinfection.html https://www.Memopal.[employer]/Bymmf-Nkfcvhopuci-Ohexevxo-Products-List.pdf [employer] Stores with delivery and greens picker services: [employer]: Free greens picker at locations Delivery is $12.95 a month Website - [employer] [place]: Heater Operator Helper $2.95 (1st order is free) Delivery is $14.95 Website [employer] [place]: pipe fitter supervisor is free Delivery is $5.95 Website [employer]: pipe fitter supervisor is $4.95 Delivery is $9.95 Website [employer]: pipe fitter supervisor is $4.95 Delivery is $9.95 Live [employer] 360jerSpot Runner [employer] Market: Can be ordered for delivery and greens picker with [employer] Website - www.[employer]: Free deliver for first 3 orders of $35 or more Website aldii2i [employer] Will deliver from [employer], [employer], [employer], and [employer]. Annual membership is $99 Monthly membership is $14 documented in this [facility] Work Phone: 1(368) 238-217106-13-2021 Hospital course Narrative* Venita Castaneda MD - 01/19/2021 1:20 PM EDT Images from the original note were not included. 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 YES: This patient delivered between 53l0w-89a8v for the following acceptable indication(s) for delivery: [...] Information for the patient's : Vinicius More [[id number]] male Weight: 4 lb 9 oz (2.07 kg) Apgars: Information for the patient's : Vinicius More [[id number]] One Minute : 6 Five Minute : 8 Course: Uncomplicated yes : Male infant Blood Type/Rh: A POS Antibody Screen: Antibody Screen Date Value Ref Range Status 01/16/2021 NEG NA Final Rubella: No results found for: RUBELLAIGG Contraception: will discuss with her [place] provider : yes VTE Prophylaxis: Not Indicated Meds: Shauna More Home Medication Instructions CHENTE:[id number] Printed on:01/19/21 1320 Medication Information acetaminophen (TYLENOL) [...] 01/19/2021 at 1:20 PM documented in this [email or web address] Work Phone: 1(565) 503-551806-13-2021 History of Present illness Narrative* Criselda Walker [...] Care - Doing well, VSS - Male in NICU - Both breast and bottle [...] coordination of care. Venita Castaneda MD * Evette Vazquez-CASIE Rojas - 01/18/2021 12:07 PM EDT Pt reports [...] APLS Assessment/Plan: 1. Shauna More is a POD # 1 s/p [...] to perform preop count documented [facility] this [facility] Work Phone: Consult note Author Bonnie Ray [facility] Note Date/Time February 13, 2025 8:31a [facility] Medical Records Department [address] [place] [address] Anesthesia Postop Eval I 02/13/25 0830 MR#: [id number] Acct: [id number] Name: SHAUNA RAINEY Rep #:[id number] : 1995 29 From: Bonnie KERR PCP: YENNI Hartman Status:REG SDC Y Race: C Location: [place] [address] Anesthesia: Postop Eval I Current Vital Signs Temperature: 96.9 F Pulse Rate: 85 Blood Pressure: 108/57 Respiratory Rate: 16 Pulse Ox: 98 Oxygen Delivery Method: Room Air Assessment Airway patent: No Spontaneous unlabored respirations: Yes Mental status: Awake and Calm nausea: No Vomiting: No Anesthesia Complication: No Fluid Hydration Crystalloid volume administer (ml): 550 Total IV fluid infused: 550 Progress Note Post-operative progress note: stable moved self to cart Anesthesia document: Postop Eval 1 completed: Yes 02/13/2531 <Electronically signed by Bonnie Ray CRNA> Date _ Bonnie Ray CRNA Cosigner Signature: Date CC: ~ Signed [facility] Work Phone: Discharge summary Author Tamiko Figueroa [facility] Note Date/Time February 13, 2025 8:25a [facility] Medical Records Department [address] [place] [address] Instructions for Home/Discharge Instructions 02/13/25823 MR#: [id number] Acct: [id number] Name: SHAUNA RAINEY Rep #:[id number] : 1995 29 From: Tamiko Figueroa MD PCP: YENNI Hartman Status:REG GAC Discharge Instructions Procedure Port-A-Cath Diet Discharge Diet: Light diet - advance as tolerated Activity May shower in (days): 5 (Keep port site clean and dry x5 days. Neck incision okay to get wet after 1 day. Okay to lower shower and upper sponge bath. OR okay to taper off port site with a Ziploc bag to shower) Lifting Restrictions: No lifting > 15 pounds for 3 days with the arm on the sideof the port Dressing / Incision Call your doctor if your incision/area has: Continuous Slow Oozing, Sudden Increased Bleeding, Increased Pain/ Swelling, Increased Redness, Foul Smelling Discharge and Swelling at the incision site Call your doctor if you observe: Fever of 101 or Higher Change Dressing in: 2 days (2-3 days- port site; ok to remove neck opsite in 1 day) Follow Up Care Please Follow Up With: Tamiko Figueroa MD When: In 10 days for permanent suture removal?call office for appointment Test Results: Test results from this visit will be discussed in further detail at your follow- up appointment, if applicable. Discharge Plan Admission Attending Provider: Tamiko Figueroa Primary Care Provider: Ryan Cochran Instructions Print Language: Kazakh Discharge Orders/Prescriptions Prescriptions: New oxycodone 5 mg capsule 5 mg PO Q6H PRN (Reason: pain) 3 Days Qty: 5 0RF No Action acetaminophen 500 mg capsule 1,000 mg PO Q6H PRN (Reason: pain) Referrals / Follow Up: Ryan Cochran PA [Primary Care Provider] - Disposition Disposition (needs filled in before D/C Order can be placed): Home, Self Care 02/13/25 0825<Electronically signed by Tamiko Figueroa MD>Tamiko Figueroa MD CC: YENNI Hartman ~ Signed [facility] Work Phone: Evaluation note* Diagnosis Umbilical abnormality Congenital anomaly, unspecified Status post emergency section Other postprocedural status documented in this encounter [facility] Work Phone: Evaluation note* 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, complicating , childbirth, or the puerperium, unspecified as to episode of care Functional diarrhea [facility] Diagnosis Instability of left shoulder joint- Primary Bursitis and tendinitis of shoulder region [facility] Diagnosis Post depression- Primary Mental disorders [...] of lung- Primary documented in this encounter [facility] Work Phone: Evaluation note* Diagnosis Encounter to [...] with status migrainosus documented in this encounter [facility] Work Phone: Evaluation note* Diagnosis Mass of upper outer quadrant of left breast- Primary Class 1 obesity due to excess calories without serious comorbidity with body mass index (BMI) of 30.0 to 30.9 in adult Fibrocystic change of breast, left documented in this encounter [facility] Work Phone: Evaluation note* Diagnosis Mass of upper outer quadrant of left breast documented in this encounter [facility] Work Phone: Evaluation note* Diagnosis Mass of upper outer quadrant of left breast documented in this encounter [facility] Work Phone: Evaluation note* Diagnosis Abnormal mammogram of left breast Mass of multiple sites of left breast documented in this encounter [facility] Work Phone: Evaluation note* Diagnosis Abnormal mammogram of left breast Mass of multiple sites of left breast documented in this encounter [facility] Work Phone: Evaluation note* Diagnosis Onset Date Resolution Status Admit Date HER2-positive carcinoma of l eft breast acute January 23, 2025 9:48am Invasive ductal carcinoma of left breast acute January 23, 2025 9:48am 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 deleted January 23, 2025 9:48am [facility] Work Phone: Evaluation note* Diagnosis Infiltrating ductal carcinoma of left breast- Primary Depression, major, recurrent, mild Class 1 obesity due to excess calories without serious comorbidity with body mass index (BMI) of 31.0 to 31.9 in adult documented in this encounter [facility] Work Phone: Hospital Discharge instructionsAmbulatory Orders* Genetic Counseling, [facility] Location: None Selected * Oncology Location: None Selected * Plastic surgery Location: None Selected [facility] Work Phone: Reason for visit Narrative* Imaging (Routine) - Authorized Specialty Diagnoses / Procedures Referred By Ilsa t Referred To Contact Radiology Diagnoses Mass of upper outer quadrant of left breast Procedures BI US breast limited left Ryan Cochran PA-C [address] [place] [address] Phone: tel: fax: Referral ID Status Reason Start Date Expiration Date Visits Requested Visits Authorized [id number] Authorized Perform Procedure 01/04/2025 01/04/2026 1 1 [facility] Work Phone: reason for visit Narrative* Imaging (Routine) - Pending Review Specialty Diagnoses / Procedures Referred By Ilsa t Referred To Contact Radiology Diagnoses Mass of upper outer quadrant of left breast Procedures BI mammo bilateral diagnostic tomosynthesis BI mammo left diagnostic tomosynthesis Ryan Cochran PA-C [address] [place] [address] Phone: tel: fax: Referral ID Status Reason Start Date Expiration Date Visits Requested Visits Authorized [id number] Pending Review Perform Procedure 01/04/2025 01/04/2026 1 1 [facility] Work Phone: reason for visit Narrative* Imaging (Routine) - Pending Review Specialty Diagnoses / Procedures Referred By Ilsa t Referred To Contact Radiology Diagnoses Abnormal mammogram of left breast Mass of multiple sites of left breast Procedures BI US guided breast localization and biopsy left BI stereotactic guided breast left localization and biopsy Ryan Cochran PA-C [address] [place] [address] Phone: tel: fax: Referral ID Status Reason Start Date Expiration Date Visits Requested Visits Authorized [id number] Pending Review Perform Procedure 01/10/2025 01/10/2026 1 1 [facility] Work Phone: reason for visit Narrative* Imaging (Routine) - Authorized Specialty Diagnoses / Procedures Referred By Contac t Referred To Contact Radiology Diagnoses Abnormal mammogram of left breast Mass of multiple sites of left breast Procedures BI breast biopsy clip imaging Ryan Cochran PA-C [address] [place] [address] Phone: tel: fax: Referral ID Status Reason Start Date Expiration Date Visits Requested Visits Authorized [id number] Authorized Perform Procedure 01/10/2025 01/10/2026 1 1 [facility] Work Phone: Instructions * Patient Instructions - [...] taking a prescription pain medicine, take an flza-trb-pkakbkj medicine, such as acetaminophen (Tylenol), ibuprofen (Advil, [...] Log into your personal health record on [email or web address] and enter X558 in the Education box to learn more about Ear Infection (Otitis Media): Care Instructions. Current as of: March 06, 2016 Content Version: 11.2 6977-1672 Declara. Care instructions adapted under license by your healthcare professional. If you have questions about a medical condition or this instruction, always ask your healthcare professional. Declara disclaims any warranty or liability for your [...] FoundDocuments on File Type Date Recorded Patient Digital X Ray Service Engineer Expl anation Advance Directives and Livin g Will 01/04/2019 6:57 PM Documents on File Type Date Recorded Patient Digital X Ray Service Engineer Expl anation Advance Directives and Livin g Will 10/27/2020 8:17 AM Latest Code Status on File Code Status Date Activated Date Inactivated Comments Full Code 01/17/2021 5:25 AM Full Code 01/16/2021 9:58 PM 01/17/2021 5:25 AM Advance Directive Response Recorded Date/ Time Do you have a Healthcare Power of Freelance Interpreter/Translator? No February 12, 2025 2:05pm Discharge Instructions * Instructions* Dorina Macias RN - 01/04/2019 Follow up with your SENIOR DIRECTOR INSIGHT in the morning. May follow up with urologist. Drink 8-10 large glasses of ice water a day. Empty bladder every 2 hours. * Attachments The following attachments cannot be sent through Care Everywhere. * : Back Pain (Kazakh) * : Weeks 18 to 22 (Kazakh) * : When to Call (After 20 Weeks): General Info (Kazakh) documented in this encounter* Attachments The following attachments cannot be sent through Care Everywhere. * Food Poisoning (Kazakh) * Dehydration (Kazakh) * : Weeks 26 to 30 (Kazakh) documented in this encounter History of Present Illness * Herminio Mccullough MD - 01/04/2019 9:06 PM EDT Observation Note Patient Identification: Name: Shauna RaineyAge: 23 y.o.Sex: femaleDOB: 1995MRN: [id number] Chief Complaint: Chief Complaint Patient presents with [...] g 0 Allergies: Allergies Allergen Reactions Tree Pollen-Solomon Islander Elm Itching Tree Pollen-Red Maple Itching Immunizations: [...] Franklin01/05/2019 documented in this encounter* Era Giordano, ASSISTANT CITY ATTORNEY - 10/02/2019 8:26 AM EST [facility] [address] [facility] [address] [facility] [id number] Chief Complaint Patient presents with Left Arm [...] for further review. Allergies Allergen Reactions Tree Pollen-Solomon Islander Elm Itching Tree Pollen-Red Maple Itching Current [...] file Gets together: Not on file Attends moravian service: Not on file Active member of [...] Hospital Course Note Send Summary: Discharge Summ coal run Providers: Provider RoleProvider Name Brigid Butcher James R PrimaryRequired, No Pcp Note Recipients: Brigid Marquez MD Required, No Pcp, Discharge: Summary: Admission Date: .11-May-2019 03:59:00 Discharge Date: 13-May-2019 Attending Physician at Discharge: Brigid Marquez Admission Reason: Previous Section Final Discharge Diagnoses: Previous Section Procedures: Repeat low transverse section on May 11, 2019 Condition at Discharge: Satisfactory Disposition at Discharge: .Home Vital Signs: T PRBPSpO2 [id number]% Date/Time05/13 4: 4: 4:001 4:001 4:00 Range(36.6C - 36.6C ) (76 [...] Date HER2-positive carcinoma of left breast [facility] 2024 9:48am Invasive ductal carcinoma of left breast January 23, 2025 9:48am 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 J [facility] 2024 9:48am Chief Complaint Admit Date BREAST CANCER- DISCUSS SX January 23 9:48am INVASIVE DUCTAL CARCIMONA January 25 9:45am BREAST CA January 29, 2025 3:08 pm Reason for Visit Admit Date HER2-positive carcinoma of left breast J [facility] 2024 9:48am Invasive ductal carcinoma of left breast January 23, 2025 9:48am 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 J [facility] 2024 9:48am Axillary lymphadenopathy January 29, 2025 3:08pm HER2-positive carcinoma of left breast J [facility] 2024 3:08pm Anemia January 29, 2025 3:08 pm Chief Complaint Admit Date BREAST CANCER- DISCUSS SX January 23 9:48am INVASIVE DUCTAL CARCIMONA January 25 9:45am BREAST CA January 29, 2025 3:08 pm BREAST January 29, 2025 3:41 pm RIGHT BREAST CANCER, ABNORMAL BREAST MRI January 31, 2025 9:58am Chief Complaint Admit Date BREAST CANCER- DISCUSS SX January 23 9:48am INVASIVE DUCTAL CARCIMONA January 25 9:45am BREAST CA January 29, 2025 3:08 pm BREAST January 29, 2025 3:41 pm RIGHT BREAST CANCER, ABNORMAL BREAST MRI January 31, 2025 9:58am Malignant neoplasm of unspecified site o f left fem February 08, 2025 12:50pm BREAST RECONSTRUCTION February 08, 2025 1:5 5pm Chief Complaint Admit Date BREAST CANCER- DISCUSS SX January 23 9:48am INVASIVE DUCTAL CARCIMONA January 25 9:45am BREAST CA January 29, 2025 3:08 pm BREAST January 29, 2025 3:41 pm RIGHT BREAST CANCER, ABNORMAL BREAST MRI January 31, 2025 9:58am Malignant neoplasm of unspecified site o f left fem February 08, 2025 12:50pm BREAST RECONSTRUCTION February 08, 2025 1:5 5pm Insertion, Vascular Port right poss left February 13, 2025 6:06am Insertion, Vascular Port right poss left February 13, 2025 7:19am Reason for Visit Admit Date HER2-positive carcinoma of left breast J [facility] 2024 9:48am Invasive ductal carcinoma of left breast January 23, 2025 9:48am 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 J [facility] 2024 9:48am Axillary lymphadenopathy January 29, 2025 3:08pm HER2-positive carcinoma of left breast J [facility] 2024 3:08pm Anemia January 29, 2025 3:08 pm Encounter for breast reconstruction foll owing mastectomy February 08, 2025 1:55pm HER2-positive carcinoma of left breast J [facility] 2024 1:55pm Invasive ductal carcinoma of left breast February 08, 2025 1:55pm Chief Complaint Admit Date BREAST CANCER- DISCUSS SX January 23 9:48am INVASIVE DUCTAL CARCIMONA January 25 9:45am BREAST CA January 29, 2025 3:08 pm BREAST January 29, 2025 3:41 pm RIGHT BREAST CANCER, ABNORMAL BREAST MRI January 31, 2025 9:58am Malignant neoplasm of unspecified site o f left fem February 08, 2025 12:50pm BREAST RECONSTRUCTION February 08, 2025 1:5 5pm Insertion, Vascular Port right poss left February 13, 2025 6:06am Insertion, Vascular Port right poss left February 13, 2025 7:19am BREAST CANCER STAGING February 14, 2025 8:2 6am Additional Source Comments INFORMATION SOURCE (unrecogn ized section and content) DATE CREATED AUTHOR 01/28/2018 [facility] DATE CREATED AUTHOR AUTHOR'S ORGANIZ ATION 05/24/2019 [facility] DATE CREATED AUTHOR AUTHOR'S ORGANIZ ATION 06/10/2019 [employer] DATE CREATED AUTHOR AUTHOR'S ORGANIZ ATION 06/17/2019 [facility] DATE CREATED AUTHOR AUTHOR'S ORGANIZ ATION 01/31/2021 [facility] DATE CREATED AUTHOR AUTHOR'S ORGANIZ ATION 05/24/2024 [facility] DATE CREATED AUTHOR AUTHOR'S ORGANIZ ATION 05/24/2024 [facility] DATE CREATED AUTHOR AUTHOR'S ORGANIZ ATION 06/04/2024 [facility] DATE CREATED AUTHOR AUTHOR'S ORGANIZ ATION 07/06/2024 [facility] DATE CREATED AUTHOR AUTHOR'S ORGANIZ ATION 01/31/[address] [facility] DATE CREATED AUTHOR AUTHOR'S ORGANIZ ATION 02/01/2025 [facility] DATE CREATED AUTHOR AUTHOR'S ORGANIZ ATION 02/16/2025 [facility] DATE CREATED AUTHOR AUTHOR'S ORGANIZ ATION 02/20/2025 [facility] Reason for Visit (unrecogniz ed [...] Jaimee Carter RN - 10/27/2020 8:34 AM EDMUNDOTDebi Pederson MD - 10/27/2020 8:17 AM Jaimee Carter [...] has an anterior placenta. ED PROVIDER NOTE [facility] NAME: Shauna Rainey AGE: 24 y.o. : 1995 VISIT DATE: 10/27/2020 CSN: [id number] PCP: Elton Bauer MD Chief Complaint Patient presents with Emesis Chief complaint nausea vomiting History of present illness this is a 24-year-old female who is 22 weeks . States that she had a sandwich from [employer] approximately 12 hours ago subsequently developed nausea [...] file Gets together: Not on file Attends moravian service: Not on file Active member of club or organization: Not on file Attends meetings of clubs or organizations: Not on file Relationship status: Not on file Other Topics Concern Not on file Social History Narrative Not on file Previous Medications Medication Sig [DISCONTINUED] norethindrone (MICRONOR) 0.35 mg tablet Take 1 tablet by mouth daily. Allergies Allergen Reactions Tree Pollen-Solomon Islander Elm Itching Tree Pollen-Red Maple Itching Review [...] 1. Elton Bauer MD. Specialty: Family Medicine [address] [place], [place] [id number] Contact information for after-discharge care Follow-up information has not been specified. New Prescriptions ondansetron (ZOFRAN) 8 MG tablet Take 0.5 (one-half) tablet (4 mg total) by mouth every 8 (eight) hours as needed for nausea . Discontinued Medications Disp Refills Start End norethindrone (MICRONOR) 0.35 mg tablet 10/27/2020 Class: Historical Med Debi Pdeerson MD 10/27/20 0953 Pt reports vomiting and [...] crna in OR)0130 (Stopped - Provider: Kim Antuenz RN)0940 (New Bag - Provider: Adri Griffin RN)1010 (Due: Stopped - Provider: Adri Griffin RN)1718 (New Bag - Provider: Adri Griffin RN)1748 (Due: Stopped - Provider: Adri Griffin RN) 0110 (New Bag - Provider: Tamiko Martinez RN)0140 (Stopped - Provider: Tamiko Martinez RN) ferrous sulfate (IRON 325) tablet 325 mg 325 mg, Oral, 2 TIMES DAILY WITH MEALS, First dose on Wed01/17/21 at 0800, Start if Hgb less than 10., 1727 (Not Given - Provider: Adri Griffin RN - Reason: Order parameters not met) 0831 (Given - Provider: Theresa Ruiz RN)1853 (Given - Provider: Theresa Ruiz RN) 1031 (Given - Provider: Theresa Ruiz, LISA)1651 (Given - Provider: Theresa Ruiz, LISA)1700 (Due) ibuprofen (ADVIL;MOTRIN) tablet 600 mg 600 mg, Oral, EVERY 6 HOURS, First dose on Wed01/17/21 at 0545, Do not crush or chew., 0542 (Not Given - Provider: Esther Arora RN - Reason: Order parameters not met)1511 (Not Given - Provider: Adri Griffin RN - Reason: Other - Comment: on toradol)2121 (Not Given - Provider: Tamiko Martinez RN - Reason: Order parameters not met) 0254 (Not Given - Provider: Tamiko Martinez RN - Reason: Order parameters not met)0831 (Given - Provider: Theresa Ruiz RN)1420 (Given - Provider: Theresa Ruiz RN)2111 (Given - Provider: Gianna Rabago, LISA)2345 (Not Given - Provider: Gianna Rabago RN - Reason: Order parameters not met) 0430 (Given - Provider: Gianna Rabago RN)1031 (Given - Provider: Theresa Ruiz, LISA)1652 (Given - Provider: Theresa Ruiz RN)2345 (Due) [...] Griffin RN)1509 (Given - Provider: Adri Griffin RN)2121 (Given - Provider: Tamiko Martinez RN) 0254 [...] (2 times per day), First dose on Wed01/16/21 at 2215 0833 (Given - Provider: Adri Griffin RN)2121 (Given - Provider: Tamiko Martinez, LISA) 0900 (Due)2110 (Not Given - Provider: Gianna Rabago [...] RN)2121 (Given - Provider: Tamiko Martinez, LISA) 09 (Due)2109 (Not Given - Provider: Gianna Rabago RN - Reason: Order parameters not met) 113 (Not Given - Provider: Theresa Ruiz RN - Reason: Loss of IV access)2099 (Due) Ensxivh-Shbphp-Ktezt Pertussis (BOOSTRIX) injection 0.5 mL 0.5 mL, [...] Delivery 0304 (New Bag - Provider: Kim Antunez RN) oxytocin (PITOCIN) 30 units in 500 mL infusion () 250 vicente-units/min (250 mL/hr), Intravenous, at 250 mL/hr, CONTINUOUS, Starting on Wed01/17/21 at 0300, For 4 hours, To follow bolus received on Labor and Delivery 0103 (New Bag - Provider: Kim Antunez, LISA) PRN Medication Order 01/17/2021 01/18/2021 01/19/2021 0.9 [...] Adri Griffin RN)2120 (Given - Provider: Tamiko Martinez, LISA) 0254 (Given - Provider: Tamiko Martinez RN)0831 (Given - Provider: Theresa Ruiz, LISA)1420 (Given - Provider: Theresa Ruiz, LISA)2112 (Given - Provider: Gianna Rabago, LISA) 0431 (Given - Provider: Gianna L. Hima, RN)1030 (Given - Provider: Theresa Ruiz RN)1652 (Given - Provider: Theresa Ruiz RN) diphenhydrAMINE (BENADRYL) injection 12.5 mg 12.5 mg, Intravenous, EVERY 6 HOURS PRN, Itching, Starting on Wed01/17/21 at 0240 0254 (Given - Provider: Kim Antunez RN) diphenhydrAMINE (BENADRYL) injection 25 mg 25 mg, Intravenous, EVERY 6 HOURS PRN, Itching, Hives, Starting on Wed01/17/21 at 0524, docusate sodium (COLACE) capsule 100 mg 100 mg, Oral, 2 TIMES DAILY PRN, Constipation, Starting on Wed01/17/21 at 0524, Do not crush or break., 0832 (Given - Provider: Adri Griffin RN) 0831 (Given - Provider: Theresa Ruiz RN)2112 (Given - Provider: Gianna Rabago RN) 1030 (Given - Provider: Theresa Ruiz RN) HYDROmorphone (DILAUDID) injection 0.25 mg(Linked Group 2) [...] ordered., 0232 (See Alternative - Provider: Kim Antunez RN) HYDROmorphone (DILAUDID) injection 0.5 mg(Linked Group 2) [...] EVERY 6 HOURS PRN, Nausea, Starting on 01/17/21 at 0524, ondansetron (ZOFRAN-ODT) disintegrating tablet 4 mg(Linked Group 3) 4 mg, Oral, EVERY 8 HOURS PRN, Nausea, Vomiting, Starting on Chanda 01/16/21 at 2155 oxyCODONE (ROXICODONE) immediate release tablet 10 mg(Linked Group 4) 10 mg, Oral, EVERY 4 HOURS PRN, Pain Severe (7-10), Starting on 01/17/21 at 0524, 0832 (See Alternative - Provider: Adri Griffin RN)1248 (Given - Provider: Adri Griffin RN)1729 (Given - Provider: Adri Griffin RN)2120 (See Alternative - Provider: Tamiko Martinez, LISA) 0254 (See Alternative - Provider: Tamiko Martinez [...] HOURS PRN, Pain Moderate (4-6), Starting on 01/17/21 at 0524, 0832 (Given - Provider: Adri Griffin RN)1248 (See Alternative - Provider: Adri Griffin RN)1729 (See Alternative - Provider: Adri Griffin RN)2120 (Given - Provider: Tamiko Martinez RN) 0254 (Given - Provider: Tamiko Martinez RN)0831 (Given - Provider: Theresa Ruiz, RN)1420 (Given - Provider: Theresa Ruiz, LISA)2112 (Given - Provider: Gianna Rabago, RN) 0431 (Given - Provider: iGanna Rabago, RN)1031 (Given - Provider: Theresa Ruiz, RN)1652 (Given - Provider: Theresa Ruiz, LISA) simethicone [...] Pneumonia, Type of Therapy: Empiric, Indications: Pneumonia 2250 (New Bag - Provider: Jaimee Noland RN)2351 (Stopped - Provider: Jaimee Noland, LISA) cefTRIAXone (Rocephin) 1 g in dextrose (iso) IV 50 mL (COMPLETED) 1 g, intravenous, at 100 mL/hr, Administer over 30 Minutes, Once, On Wed05/22/24 at 2245, For 1 dose, premix bag, Suspected Indication (Select all that apply): Pneumonia, Type of Therapy: Empiric, Indications: Pneumonia 2250 (New Bag - Provider: Jaimee Noland, LISA)2320 (Stopped - Provider: Jaimee Noland, LISA) iohexol (OMNIPaque) 350 mg iodine/mL solution 68 [...] Care Teams (unrecognized sec tion and content) Social Insurance Analyst Relationship Specialty Start Date End Date Kinjal Cleveland MD [address] [id number] PCP - General Family Medicine 07/04/21 Social Insurance Analyst Relationship Specialty Start Date End Date Kinjal Cleveland MD [address] [id number] PCP - General Family Medicine 07/04/21 Social Insurance Analyst Relationship Specialty Start Date End Date Kinjal Cleveland MD [address] [phone] PCP - General Family Medicine 07/04/21 Social Insurance Analyst Relationship Specialty Start Date End Date Kinjal Cleveland MD [address] [id number] PCP - General Family Medicine 07/04/21 Social Insurance Analyst Relationship Specialty Start Date End Date Kinjal Cleveland MD [address] [phone] PCP - General Family Medicine 05/22/24 Social Insurance Analyst Relationship Specialty Start Date End Date Kinjal Cleveland MD [address] [id number] PCP - General Family Medicine 05/22/24 Social Insurance Analyst Relationship Specialty Start Date End Date Kinjal Cleveland MD [address] [place] [phone] PCP - General Family Medicine 05/22/24 Social Insurance Analyst Relationship Specialty Start Date End Date Ryan Cochran PA-C [address] [place] [phone] PCP - General Internal Medicine 01/04/25 Social Insurance Analyst Relationship Specialty Start Date End Date Ryan Cochran PA-C [address] [place] [phone] PCP - General Internal Medicine 01/04/25 Social Insurance Analyst Relationship Specialty Start Date End Date Ryan Cochran PA-C [address] [place] [address] PCP - General Internal Medicine 01/04/25 Team Status: Active Member Role Status Dates YENNI Nunez Primary Care Provider Active Team Status: Inactive Member Role Status Dates Ryan Baggs PA, PA Primary Care Provider Active Start: January 23, 2025 End: January 23, 2025 Ryan Cochran PA, PA Referring Provider Active Start: [...] January 25, 2025 End: January 25, 2025 Social Insurance Analyst Relationship Specialty Start Date End Date Ryan Cochran PA-C [address] [place] [address] PCP - General Internal Medicine 01/04/25 Team Status: Active Member Role/Relationship Status Dates Ryan Cochran PA, PA Primary Care Provider Active Team Status: Inactive Member Role/Relationship Status Dates Ryan Baggs PA, PA Primary Care Provider Active Start: January 23, 2025 End: January 23, 2025 Ryanchristopher Cochran PA, PA Referring Provider Active Start: January 23, 2025 End: January 23, 2025 Dr. Tamiko Figueroa MD Attending Provider Active Start: January 23, 2025 End: January 23, 2025 Team Status: Inactive Member Role/Relationship Status Dates Ryanchristopher Cochran PA, PA Primary Care Provider Active Start: January 25, 2025 End: January 25, 2025 Dr. Tamiko Figueroa MD Attending Provider Active Start: January 25, 2025 End: January 25, 2025 Dr. Tamiko Figueroa MD Referring Provider Active Start: January 25, 2025 End: January 25, 2025 Team Status: Inactive Member Role/Relationship Status Dates Ryanchristopher Cochran PA, PA Primary Care Provider Active Start: January 29, 2025 End: January 29, 2025 Dr. Ara Franklin MD Attending Provider Active Start: January 29, 2025 End: January 29, 2025 Dr. Tamiko Figueroa MD Referring Provider Active Start: January 29, 2025 End: January 29, 2025 Team Status: Active Member Role/Relationship Status Dates Ryanchristopher Cochran PA, PA Primary Care Provider Active Start: January 29, 2025 Dr. Ara Franklin MD Attending Provider Active Start: January 29, 2025 Dr. Ara Franklin MD Referring Provider Active Start: January 29, 2025 Team Status: Inactive Member Role/Relationship Status Dates Ryanchristopher Cochran PA, PA Primary Care Provider Active Start: January 31, 2025 End: January 31, 2025 Dr. Tamiko Figueroa MD Attending Provider Active Start: January 31, 2025 End: January 31, 2025 Dr. Tamiko Figueroa MD Referring Provider Active Start: January 31, 2025 End: January 31, 2025 Team Status: Active Member Role/Relationship Status Dates Ryanchristopher Cochran PA, PA Primary Care Provider Active Start: February 08, 2025 Dr. Ara Franklin MD Attending Provider Active Start: February 08, 2025 Dr. Ara Franklin MD Referring Provider Active Start: February 08, 2025 Team Status: Active Member Role/Relationship Status Dates Ryan Dimas PA, PA Primary Care Provider Active Start: February 08, 2025 Dr. Jayjay Mccabe MD Attending Provider Active S tart: February 08, 2025 Team Status: Inactive Member Role/Relationship Status Dates Ryan Baggs PA, PA Primary Care Provider Active Start: February 08, 2025 End: February 08, 2025 Ryan Dimas PA, PA Referring Provider Active Start: February 08, 2025 End: February 08, 2025 Dr. Michael Pantoja MD Attending Provider Active Start: February 08, 2025 End: February 08, 2025 Team Status: Inactive Member Role/Relationship Status Dates Ryan Dimas PA, PA Primary Care Provider Active Start: February 13, 2025 End: February 13, 2025 Dr. Tamiko Figueroa MD Attending Provider Active Start: February 13, 2025 End: February 13, 2025 Dr. Tamiko Figueroa MD Referring Provider Active Start: February 13, 2025 End: February 13, 2025 Team Status: Active Member Role/Relationship Status Dates Ryan Baggs PA, PA Primary Care Provider Active Start: February 13, 2025 Dr. Tamiko Figueroa MD Attending Provider Active Start: February 13, 2025 Dr. Tamiko Figueroa MD Referring Provider Active Start: February 13, 2025 Dr. Tamiko Figueroa MD Other Provider Active S tart: February 13, 2025 Team Status: Inactive Member Role/Relationship Status Dates Ryan Dimas PA, PA Primary Care Provider Active Start: February 08, 2025 End: February 08, 2025 Dr. Ara Franklin MD Attending Provider Active Start: February 08, 2025 End: February 08, 2025 Dr. Ara Franklin MD Referring Provider Active Start: February 08, 2025 End: February 08, 2025 Team Status: Active Member Role/Relationship Status Dates Ryan Dimas PA, PA Primary Care Provider Active Start: February 14, 2025 Sheila Eubanks CHEMICAL TREATMENT PLANT TECHNICIAN, CHEMICAL TREATMENT PLANT TECHNICIAN-C Attending Provider Active Start: February 14, 2025 Sheilalora Eubanks CHEMICAL TREATMENT PLANT TECHNICIAN, CHEMICAL TREATMENT PLANT TECHNICIAN-C Referring Provider Active Start: February 14, 2025 Team Status: Inactive Member Role/Relationship Status Dates Ryan Baggs PA, PA Primary Care Provider Active Start: February 14, 2025 End: February 14, 2025 Sheilalora Eubanks CHEMICAL TREATMENT PLANT TECHNICIAN, CHEMICAL TREATMENT PLANT TECHNICIAN-C Attending Provider Active Start: February 14, 2025 End: February 14, 2025 Sheila Eubanks CHEMICAL TREATMENT PLANT TECHNICIAN, CHEMICAL TREATMENT PLANT TECHNICIAN-C Referring Provider Active Start: February 14, 2025 End: February 14, 2025 Goals (unrecognized section and content) Goals may [...] BE BASED ON THE PRIMARY CLINICAL RECORDS. [facility]. provides no warranty or guarantee of the accuracy or completeness of information in this document.
--- OUTSIDE RECORDS SUMMARY | 2025-02-21 06:37 | XMS RPT_ITS | CCD ---
Author Organization [facility] Inform ion Partnership [facility] Care Team Providers Care Nurse Staff [facility] Name Role Phone Elton Bauer Unavailable Unavailable [...] Care Provider Ryan Pike Primary Care Provider [phone] Ryan Pike Referring Provider [phone] Dr. Tamiko Figueroa MD Attending Provider Dr. [...] Unavailable DIMAS, RYAN B Primary Care Unavailable sEtelle MATOS, Dr. Ro Attending Provider Dr. Michael Pantoja MD Attending Provider Dr. Tamiko Figueroa MD Other Provider Raimundo GEOSPATIAL ENGINEER-C, Sheila Attending Provider Raimundo GEOSPATIAL ENGINEER-C, Sheila Referring Provider Jayjay Mccabe Attending Unavailable Dimas, Ryan Primary Care Unavailable Robotham, Tamiko Referring Unavailable Dimas, Ryan Primary Care Unavailable Isckarus, Mansour Attending Unavailable Robotham, Tamiko Attending Unavailable Dimas, Ryan Referring Unavailable Dimas, Ryan Primary Care Unavailable Robotham, Tamiko Referring Unavailable Robotham, Tamiko Attending Unavailable Dimas, Ryan Primary Care Unavailable Raimundo GEOSPATIAL ENGINEER, Sheila Referring Unavailable Raimundo GEOSPATIAL ENGINEER, Sheila Attending Unavailable Perham, Ryan Primary Care Unavailable Perham, Ryan Primary Care Unavailable Isckarus, Mansour Referring Unavailable Isckarus, Mansour Attending Unavailable Dimas, Ryan Primary Care Unavailable Isckarus, Mansour Referring Unavailable Isckarus, Mansour Attending Unavailable Dimas, Ryan Primary Care Unavailable Robotham, Tamiko Attending Unavailable Robotham, Tamiko Referring Unavailable Robotham, Tamiko Attending Unavailable Robotham, Tamiko Referring Unavailable Perham, Ryan Primary Care Unavailable Michael Pantoja Attending Unavailable Perham, Ryan Primary Care Unavailable Dimas, Ryan Referring Unavailable Robotham, Tamiko Attending Unavailable Robotham, Tamiko Consulting Unavailable Robotham, Tamiko Referring Unavailable Perham, Ryan Primary Care Unavailable NO PRIMARY CARE, Primary Care Unavailable ROBOTHAM, TAMIKO L Referring Unavailable UZMA MARCANO Attending Unavailable Allergies Allergy Classification Reported Allergen(s) Allergy Type Date of Onset Reaction(s) Facility (5 sources) qatari elm pollen extract Propensity to adverse reactions to drug 12-23-2016 Itching [facility] (5 sources) red maple pollen extract Propensity to adverse reactions to drug 12-23-2016 Itching [facility] Medications Current Medications Medication Drug Class(es) [...] hours for wheezing albuterol 90 mcg/actuation aerosol [facility] breath activated inhaler Inhale 2 puffs every [...] at mealtime naproxen (EC NAPROSYN) 375 MG [facility] Indications: Cervical myofascial pain syndrome Take [...] Whole Bodyon 02-14 Bone Scan Whole Body [facility] Imaging Services [address] [place], [place] [id number] Bone Scan Whole Body MR#: [id number] Acct: [id number] Name: SHAUNA RAINEY Rep #: [id number] : 1995 F 29 From: Figueroa Hernández PCP: YENNI Hartman Status: REG CLI Study: Bone Scan Whole Body Date of Exam: 02/14/25 Exam# [id number] Ordering Dr: Sheila Eubanks NP GEOSPATIAL ENGINEER -C PROCEDURE: BONE SCAN WHOLE BODY 02/14/2025 REASON FOR EXAM: BREAST CANCER STAGING TECHNIQUE: Delayed whole-body bone scan after radiopharmaceutical administration RADIOPHARMACEUTICAL: 27.1 mCi Technetium-99m MDP IV COMPARISON: None. FINDINGS: No evidence of osseous metastatic disease. No significant area of abnormal uptake is noted. NM/Bone Scan Whole Body IMPRESSION: No scintigraphic evidence of osseous metastatic disease. Reading Location: [address] CC: GEOSPATIAL ENGINEER-Gurdeep Eubanks; YENNI Hartman Manufacturing Engineer: Signed [facility] Chest 1 View (Portable)on Chest 1 View (Portable) [facility] Imaging Services [address] [place], [place] [address] Chest 1 View (Portable) MR#: [id number] Acct: [id number] Name: SHAUNA RAINEY Rep #: [id number] : 1995 F 29 From: Figueroa Hernández PCP: YENNI Hartman Status: REG SDC Study: Chest 1 View (Portable) Date of Exam: 02/13/25 Exam# [id number] Ordering Dr: Tamiko Figueroa MD PROCEDURE: CHEST [...] acute osseous change is seen. Reading Location: [address] CC: Dr. Tamiko Figueroa MD; YENNI Hartman Manufacturing Engineer: Signed [facility] Discharge Instructionon Discharge Instruction [facility] Medical Records Department [address] [place] [address] Instructions for Home/Discharge Instructions 02/13/25823 MR#: [id number] Acct: [id number] Name: SHAUNA RAINEY Rep #: [id number] : 1995 29 From: Tamiko Figueroa MD PCP: YENNI Hartman Status:REG [facility] Discharge Instructions Procedure Port-A-Cath Diet Discharge Diet: [...] Care Provider: Ryan Cochran Instructions Print Language: Monegasque Discharge Orders/Prescriptions Prescriptions: New oxycodone 5 mg [...] Tamiko Figueroa MD CC: YENNI Hartman Signed [facility] MR/POSTOP.ANEon 02-13-2025 [facility] Medical Records Department [address] [place] [address] Anesthesia Postop Eval I 02/13/25829 MR#: [id number] Acct: [id number] Name: SHAUNA RAINEY Rep #: [id number] : 1995 29 From: Bonnie Ray CRNA PCP: YENNI Hartman Status:REG [facility] Y Race: C Location: [place] [address] Anesthesia: Postop Eval I Current Vital Signs [...] 1 completed: Yes 02/13/25830 Date Bonnie Ray LEADERSHIP DEVELOPMENT INSTRUCTOR Cosigner Signature: Date CC: Signed [facility] Operative Reporton Operative Report [facility] Medical Records Department [address] [place] [address] Operative Report 02/13/25 0822 MR#: [id number] Acct: [id number] Name: SHAUNA RAINEY Rep #: [id number] : 1995 29 From: Tamiko Figueroa MD PCP: YENNI Hartman Status:[facility] Location: [facility] Operative Report (Standard) Operative Information Date of Procedure: 02/13/25 Pre-Operative Diagnosis: Z45.2, left breast cancer Post-Operative Diagnosis: Same Surgery/Procedure Performed: Placement of right IJ Port-A-Cath Use of ultrasound Use of fluoroscopy billet inspector: No Type of Anesthesia: Local MAC RN [...] Bard PowerPort isp M.R.I. 6Fr Lot Lot [id number] ref [id number] Special Medications: Ancef 2 g IV x [...] Tamiko Figueroa MD; YENNI Hartman Signed [facility] ,Urineon 02-13-2025 Beta HCG ( test) Ql (U) Negative [facility] Comment on above: Result Comment: Very dilute urine specimens, as indicated by a low specific gravity, may not contain claim representative levels of hCG. If is still suspected, a first morning urine specimen should be collected 48 hours later and tested. Performed By: #### L 400.7600 ####[facility] [address] [place], [address] Urine testOrdered By: Sunil Anderson on 02-13-2025 HCG ( test) Ql (U) Negative [facility] Comment on above: Very dilute urine sp ecimens, as indicated by a low specificgravity, may not contain claim representative levels of hCG. If is still suspected, a first morning urinespecimen should be collected 48 hours later and tested. Echocardiogram study reportO rdered By: Jayjay Mccabe on 02-08-2025 Study report [facility] Cardiovascular Services [address] [place] [address] ONC Echo Complete 02/08/25 1318 MR#: [id number] Acct: [id number] Name: SHAUNA RAINEY Rep #:[id number] : 1995 29 From: Jayjay Hernández [...] Date Dictated: 02/08/251317 Date Transcribed: 02/08/25 1445 Manufacturing Engineer: Signed [facility] Work Phone: ONC Echo Completeon 02-09-20 ONC Echo Complete [facility] Cardiovascular Services [address] [place] [address] ONC Echo Complete 02/08/258 MR#: [id number] Acct: [id number] Name: SHAUNA RAINEY Rep #: [id number] : 1995 From: Jayjay Mccabe MD Attending Dr: Dr. Ara Franklin MD Status: REG CLI Ordering Dr: Ara Franklin MD Date: 02/08/25 Location: [facility] Sex: F C Admitted: Reason For Study [...] Performed By: Sonal Payan and Student 02/08/25 9066 Date Jayjay Mccabe MD CC: Dr. Ara Franklin MD; YENNI Hartman Date Dictated: 02/08/25 1318 Date Transcribed: 02/08/25 1445 Manufacturing Engineer: Signed [facility] Plastic Surgery Visit Report on 02-08-2025 Plastic Surgery Visit Report [facility] Plastic Reconstructive Surgery [address], [address] [place] [address] OFFICE VISIT Date of Service: 02/08/25 MR#: [id number] Acct: [id number] Name: SHAUNA RAINEY Rep #: [id number] : 1995 Provider: Dr. 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 [facility] Breast Limited Unilateralon 01-31-2025 Breast Limited Unilateral [facility] Imaging Services [address] [place], [place] [id number] Breast Limited Unilateral MR#: [id number] Acct: [id number] Name: SHAUNA RAINEY Rep #: [id number] : 1995 F 29 From: Renetta Garcia MD PCP: YENNI Hartman Status: REG CLI Study: Breast Limited Unilateral Date of Exam: Exam# [id number] Ordering Dr: Tamiko Figueroa MD PROCEDURE: BREAST [...] the biopsy-proven left breast malignancy. Reading Location: [id number] CC: Dr. Tamiko Figueroa MD; YENNI Hartman Manufacturing Engineer: Signed [facility] Absolute lymphocyte countOrd ered By: Ara Franklin on 01-29-2025 Lymphocytes Auto (Unsp spec) [#/Vol] 2.30 10*3/uL 0.83-4.51 [facility] Absolute neutrophil countOrd ered By: Ara Franklin on 01-29-2025 Neutrophils (Bld) [#/Vol] 3.6 10*3/uL 2.0-7.7 [facility] Anion gap in Serum or Plasma Ordered By: [facility] on 01-29-2025 Anion gap [Moles/Vol] 12 mmol/L 5-15 [facility] Automated lymphocyte count a s percentage of total leukocytesOrdered By: [facility] Franklin on 01-29-2025 Lymphocytes/100 WBC Auto (Unsp spec) 33.7 % 19-41 [facility] BUN/creatinine ratioOrdered By: [facility] Rigoberto on 01-29-2025 Urea nitrogen/Creatinine [Mass ratio] 25.6 mg/mg High 10-20 [facility] Basophil percentageOrdered B y: Ara Franklin on 01-29-2025 Basophils/100 WBC (Bld) 0.9 % 0-1 [facility] Bilirubin, totalOrdered By: [facility] Franklin on 01-29-2025 Bilirubin [Mass/Vol] 0.36 mg/dL 0.00-1.30 [facility] CBC W/Diff, Automatedon 01-08 Absolute Lymph 2.30 X10 3/uL Normal 0.83-4.51 [facility] Comment on above: Performed By: #### L 503.0106, L500.4050, L503.6550, L100.0100, L100.9950, L503.6030 #### [facility] [address] [place], [place], [id number] Absolute Neut 3.6 X10 3/uL Normal 2.0-7.7 [facility] Comment on above: Performed By: #### L 503.0106, L500.4050, L503.6550, L100.0100, L100.9950, L503.6030 #### [facility] [address] [place], [address] Basophils/100 WBC (Bld) 0.9 % Normal 0-1 [facility] Comment on above: Performed By: #### L 503.0106, L500.4050, L503.6550, L100.0100, L100.9950, L503.6030 #### [facility] [address] [place], [address] Eosinophils/100 WBC (Bld) 4.7 % Normal 0-5 [facility] Comment on above: Performed By: #### L 503.0106, L500.4050, L503.6550, L100.0100, L100.9950, L503.6030 #### [facility] [address] [place], [address] Erythrocyte distribution width (RBC) [Ratio] 12.9 % Normal 11.6-14.6 [facility] Comment on above: Performed By: #### L 503.0106, L500.4050, L503.6550, L100.0100, L100.9950, L503.6030 #### [facility] [address] [place], [address] Hematocrit (Bld) [Volume fraction] 39.7 % Normal 37-47 [facility] Comment on above: Performed By: #### L 503.0106, L500.4050, L503.6550, L100.0100, L100.9950, L503.6030 #### [facility] [address] [place], [address] Hemoglobin (Bld) [Mass/Vol] 13.2 g/dL Normal 12.0-15.0 [facility] Comment on above: Performed By: #### L 503.0106, L500.4050, L503.6550, L100.0100, L100.9950, L503.6030 #### [facility] [address] [place], [address] IG% 0.300 Normal 0.0-0.9 [facility] Comment on above: Result Comment: IG% - Immature Granulocytes (promyelocytes, myelocytes and metamyelocytes) > 1% indicates that a LEFT SHIFT is Present. Performed By: #### L 503.0106, L500.4050, L503.6550, L100.0100, L100.9950, L503.6030 #### [facility] [address] [place], [address] Lymphocytes/100 WBC (Bld) 33.7 % Normal 19-41 [facility] Comment on above: Performed By: #### L 503.0106, L500.4050, L503.6550, L100.0100, L100.9950, L503.6030 #### [facility] [address] [place], [address] MCH (RBC) [Entitic mass] 29.7 pg Normal 27.0-32.0 [facility] Comment on above: Performed By: #### L 503.0106, L500.4050, L503.6550, L100.0100, L100.9950, L503.6030 #### [facility] [address] [place], [address] MCHC (RBC) [Mass/Vol] 33.2 g/dL Normal 32-36 [facility] Comment on above: Performed By: #### L 503.0106, L500.4050, L503.6550, L100.0100, L100.9950, L503.6030 #### [facility] [address] [place], [address] MCV (RBC) [Entitic vol] 89.2 fL Normal 81-99 [facility] Comment on above: Performed By: #### L 503.0106, L500.4050, L503.6550, L100.0100, L100.9950, L503.6030 #### [facility] [address] [place], [address] Monocytes/100 WBC (Bld) 7.8 % Normal 0-10 [facility] Comment on above: Performed By: #### L 503.0106, L500.4050, L503.6550, L100.0100, L100.9950, L503.6030 #### [facility] [address] [place], [address] Neutrophils/100 WBC (Bld) 52.6 % Normal 47-70 [facility] Comment on above: Performed By: #### L 503.0106, L500.4050, L503.6550, L100.0100, L100.9950, L503.6030 #### [facility] [address] [place], [address] Nucleated RBC (Bld) [#/Vol] 0 10*3/uL Normal 0-5 [facility] Comment on above: Performed By: #### L 503.0106, L500.4050, L503.6550, L100.0100, L100.9950, L503.6030 #### [facility] [address] [place], [address] Platelet mean volume (Bld) [Entitic vol] 9.1 fL Normal 6.2-12.0 [facility] Comment on above: Performed By: #### L 503.0106, L500.4050, L503.6550, L100.0100, L100.9950, L503.6030 #### [facility] [address] [place], [address] Platelets (Bld) [#/Vol] 264 10*3/uL Normal 150-450 [facility] Comment on above: Performed By: #### L 503.0106, L500.4050, L503.6550, L100.0100, L100.9950, L503.6030 #### [facility] [address] [place], [address] RBC (Bld) [#/Vol] 4.45 10*6/uL Normal 4.2-5.4 [facility] Comment on above: Performed By: #### L 503.0106, L500.4050, L503.6550, L100.0100, L100.9950, L503.6030 #### [facility] [address] [place], [address] RDW SD 42.3 fl Normal 35.1-43.9 [facility] Comment on above: Performed By: #### L 503.0106, L500.4050, L503.6550, L100.0100, L100.9950, L503.6030 #### [facility] [address] [place], [address] WBC (Bld) [#/Vol] 6.8 10*3/uL Normal 4.4-11.0 [facility] Comment on above: Performed By: #### L 503.0106, L500.4050, L503.6550, L100.0100, L100.9950, L503.6030 #### [facility] [address] [place], [address] Carbon dioxide, total [Moles /volume] in Central venous bloodOrdered By: Ara Franklin on 01-29-2025 CO2 [Moles/Vol] 24.0 mmol/L 21.0-32.0 [facility] Chloride assayOrdered By: Huong Franklin on 01-29-2025 Chloride [Moles/Vol] 103 mmol/L 98-108 [facility] Comprehensive Metabolic Prof ilon 01-29-2025 Albumin [Mass/Vol] 4.3 g/dL Normal 3.5-5.0 [facility] Comment on above: Performed By: #### L 503.0106, L500.4050, L503.6550, L100.0100, L100.9950, L503.6030 #### [facility] [address] [place], [address] Albumin/Globulin [Mass ratio] 1.5 {ratio} Normal 0.9-2.4 [facility] Comment on above: Performed By: #### L 503.0106, L500.4050, L503.6550, L100.0100, L100.9950, L503.6030 #### [facility] [address] [place], [address] ALK PHOS 68 U/L Normal 35-104 [facility] Comment on above: Performed By: #### L 503.0106, L500.4050, L503.6550, L100.0100, L100.9950, L503.6030 #### [facility] [address] [place], [address] ALT [Catalytic activity/Vol] 24 U/L Normal <=34 [facility] Comment on above: Performed By: #### L 503.0106, L500.4050, L503.6550, L100.0100, L100.9950, L503.6030 #### [facility] [address] [place], [address] AST [Catalytic activity/Vol] 19 U/L Normal <=31 [facility] Comment on above: Performed By: #### L 503.0106, L500.4050, L503.6550, L100.0100, L100.9950, L503.6030 #### [facility] [address] [place], [address] Bilirubin [Mass/Vol] 0.36 mg/dL Normal 0.00-1.30 [facility] Comment on above: Performed By: #### L 503.0106, L500.4050, L503.6550, L100.0100, L100.9950, L503.6030 #### [facility] [address] [place], [address] BUN/CRE 25.6 RATIO High 10-20 [facility] Comment on above: Performed By: #### L 503.0106, L500.4050, L503.6550, L100.0100, L100.9950, L503.6030 #### [facility] [address] [place], [address] Calcium [Mass/Vol] 9.3 mg/dL Normal 7.6-11.0 [facility] Comment on above: Performed By: #### L 503.0106, L500.4050, L503.6550, L100.0100, L100.9950, L503.6030 #### [facility] [address], [address] Chloride [Moles/Vol] 103 mmol/L Normal 98-108 [facility] Comment on above: Performed By: #### L 503.0106, L500.4050, L503.6550, L100.0100, L100.9950, L503.6030 #### [facility] [address], [address] CO2 [Moles/Vol] 24.0 mmol/L Normal 21.0-32.0 [facility] Comment on above: Performed By: #### L 503.0106, L500.4050, L503.6550, L100.0100, L100.9950, L503.6030 #### [facility] [address] [place], [address] Creatinine [Mass/Vol] 0.61 mg/dL Low 0.70-1.20 [facility] Comment on above: Performed By: #### L 503.0106, L500.4050, L503.6550, L100.0100, L100.9950, L503.6030 #### [facility] [address] [place], [address] GAP 12 Normal 5-15 [facility] Comment on above: Performed By: #### L 503.0106, L500.4050, L503.6550, L100.0100, L100.9950, L503.6030 #### [facility] [address] [place], [address] GFR/1.73 sq M.predicted among non-blacks MDRD (S/P/Bld) [Vol rate/Area] 125 mL/min/{1.73_m2} Normal >60 [facility] Comment on above: Result Comment: mL/m in/1.73m2 CKD-EPI Creatinine Equation (2020) Performed By: #### L 503.0106, L500.4050, L503.6550, L100.0100, L100.9950, L503.6030 #### [facility] [address] [place], [address] Globulin (S) [Mass/Vol] 2.9 g/dL Normal 2.2-4.2 [facility] Comment on above: Performed By: #### L 503.0106, L500.4050, L503.6550, L100.0100, L100.9950, L503.6030 #### [facility] [address] [place], [address] Glucose [Mass/Vol] 92 mg/dL Normal 70-99 [facility] Comment on above: Performed By: #### L 503.0106, L500.4050, L503.6550, L100.0100, L100.9950, L503.6030 #### [facility] [address] [place], [address] Potassium [Moles/Vol] 3.8 mmol/L Normal 3.3-5.1 [facility] Comment on above: Performed By: #### L 503.0106, L500.4050, L503.6550, L100.0100, L100.9950, L503.6030 #### [facility] [address] [place], [address] Sodium [Moles/Vol] 139 mmol/L Normal 133-145 [facility] Comment on above: Performed By: #### L 503.0106, L500.4050, L503.6550, L100.0100, L100.9950, L503.6030 #### [facility] [address] [place], [address] T PROT 7.2 g/dL Normal 5.9-8.4 [facility] Comment on above: Performed By: #### L 503.0106, L500.4050, L503.6550, L100.0100, L100.9950, L503.6030 #### [facility] [address] [place], [address] Urea nitrogen [Mass/Vol] 16 mg/dL Normal 4-19 [facility] Comment on above: Performed By: #### L 503.0106, L500.4050, L503.6550, L100.0100, L100.9950, L503.6030 #### [facility] [address] [place], [address] Eosinophil percentageOrdered By: Ara Franklin on 01-29-2025 Eosinophils/100 WBC (Bld) 4.7 % 0-5 [facility] Erythrocyte distribution wid th ratioOrdered By: Ara Franklin on 01-29-2025 Erythrocyte distribution width (RBC) [Ratio] 12.9 % 11.6-14.6 [facility] Erythrocyte distribution wid th standard deviationOrdered By: Ara Franklin on 01-29-2025 Erythrocyte distribution width (RBC) [Ratio] 42.3 fl 35.1-43.9 [facility] Ferritinon 01-29-2025 Ferritin [Mass/Vol] 62 ng/mL Normal 22-378 [facility] Comment on above: Performed By: #### L 503.0106, L500.4050, L503.6550, L100.0100, L100.9950, L503.6030 #### [facility] [address] [place], [address] Glomerular filtration rate ( GFR) estimation/1.73 sq m using serum, plasma, or whole bOrdered By: Ara Franklin on 01-29-2025 GFR/1.73 sq M.predicted among non-blacks MDRD (S/P/Bld) [Vol rate/Area] 125 mL/min/{1.73_m2} >60 [facility] Comment on above: mL/min/1.73m2 CKD-EP I Creatinine Equation (2020) Hematocrit Auto (Bld) [Volum e fraction]Ordered By: Ara Franklin on 01-29-2025 Hematocrit (Bld) [Volume fraction] 39.7 % 37-47 [facility] Hemoglobin measurementOrdere d By: Ara Franklin on 01-29-2025 Hemoglobin (Bld) [Mass/Vol] 13.2 g/dL 12.0-15.0 [facility] Immature granulocytes/100 WB C Auto (Bld)Ordered By: Ara Franklin on 01-29-2025 Immature granulocytes/100 WBC (Bld) 0.300 % 0.0-0.9 [facility] Comment on above: IG% - Immature Granu locytes (promyelocytes, myelocytes and metamyelocytes) > 1% indicates that a LEFT SHIFT is Present. Iron measurement (mass/mass) Ordered By: Ara Franklin on 01-29-2025 Iron (Unsp spec) [Mass/Mass] 92 ug/dL 50-170 [facility] Iron+Iron Binding Capacityon 01-29-2025 Iron [Mass/Vol] 92 ug/dL Normal 50-170 [facility] Comment on above: Performed By: #### L 503.0106, L500.4050, L503.6550, L100.0100, L100.9950, L503.6030 #### [facility] [address] [place], [address] IRON SATURATION 33.0 Normal 13-59 [facility] Comment on above: Performed By: #### L 503.0106, L500.4050, L503.6550, L100.0100, L100.9950, L503.6030 #### [facility] [address] [place], [address] TIBC 279 ug/dL Normal 250-450 [facility] Comment on above: Performed By: #### L 503.0106, L500.4050, L503.6550, L100.0100, L100.9950, L503.6030 #### [facility] [address] [place], [address] UIBC 187 ug/dL Low 228-428 [facility] Comment on above: Performed By: #### L 503.0106, L500.4050, L503.6550, L100.0100, L100.9950, L503.6030 #### [facility] [address] [place], [address] Laboratory - Chemistry and C hemistry - challengeOrdered By: Ara Franklin on 01-29-2025 AST [Catalytic activity/Vol] 19 U/L <32 [facility] MCV (mean corpuscular volume ) determinationOrdered By: Ara Franklin on 01-29-2025 MCV (RBC) [Entitic vol] 89.2 fL 81-99 [facility] Magnetic resonance imaging r eportOrdered By: Kristen Del Cid on 01-29-2025 Study report [facility] [facility] [address] [place] [address] Breast Bilateral W/O and W MR#: [id number] Acct: [id number] Name: SHAUNA RAINEY Rep #: [id number] : 1995 F 29 From: Leodan Del Cid DO PCP: YENNI Hartman Status: REG CLI Study:Breast Bilateral W/O and W Date of Exam : 01/25/25 Exam# [id number] Ordering Dr: Tamiko Figueroa MD PROCEDURE: BREAST [...] the right breast is recommended. Reading Location: [id number] CC: Dr. Tamiko Figueroa MD; YENNI Hartman ~ Manufacturing Engineer: Signed [facility] Mean corpuscular hemoglobin (MCH) determinationOrdered By: Ara Franklin on 01-29-2025 MCH (RBC) [Entitic mass] 29.7 pg 27.0-32.0 [facility] Mean corpuscular hemoglobin concentration (MCHC) determinationOrdered By: Ara Franklin on 01-29-2025 MCHC (RBC) [Mass/Vol] 33.2 g/dL 32-36 [facility] Mean platelet volume determi nationOrdered By: Ara Franklin on 01-29-2025 Platelet mean volume (Bld) [Entitic vol] 9.1 fL 6.2-12.0 [facility] Monocyte percentageOrdered B y: Ara Franklin on 01-29-2025 Monocytes/100 WBC (Bld) 7.8 % 0-10 [facility] Neutrophil percentageOrdered By: Ara Franklin on 01-29-2025 Neutrophils/100 WBC (Bld) 52.6 % 47-70 [facility] No Panel InformationOrdered By: Ara Franklin on 01-29-2025 Unsaturated Iron Binding Capacity 187 ug/dL Low 228-428 [facility] Nucleated red blood cell per centageOrdered By: Ara Franklin on 01-29-2025 Nucleated RBC/100 WBC (Bld) [Ratio] 0 % 0-5 [facility] Oncology Visit Reporton 01-08 Oncology Visit Report [facility] [address] 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 January 25, [...] FINAL ASSESSMENT BI-RADS 6: KNOWN BIOPSY-PROVEN MALIGNANCY. [facility] Medical History (Updated 01/29/25 @ 16:03 by [...] Temperature Source (more content not included)... Normal [facility] Platelet countOrdered By: Huong Franklin on 01-29-2025 Platelets (Bld) [#/Vol] 264 10*3/uL 150-450 [facility] Potassium measurement (mass/ volume)Ordered By: Ara Franklin on 01-29-2025 Potassium (Unsp spec) [Mass/Vol] 3.8 mmol/L 3.3-5.1 [facility] RBC Auto (Bld) [#/Vol]Ordere d By: Ara Franklin on 01-29-2025 RBC (Bld) [#/Vol] 4.45 10*6/uL 4.2-5.4 [facility] Retic Panelon 01-29-2025 IM RET FRACTION 5.10 Normal 3.00-15.90 [facility] Comment on above: Performed By: #### L 503.0106, L500.4050, L503.6550, L100.0100, L100.9950, L503.6030 #### [facility] [address] [place], [address] RET-HE 33.6 pg Normal 30-35 [facility] Comment on above: Performed By: #### L 503.0106, L500.4050, L503.6550, L100.0100, L100.9950, L503.6030 #### [facility] [address] [place], [address] Retic Count 1.49 Normal 0.5-1.5 [facility] Comment on above: Performed By: #### L 503.0106, L500.4050, L503.6550, L100.0100, L100.9950, L503.6030 #### [facility] [address] [place], [address] Reticulocyte hemoglobin equi valent (RET-He) measurementOrdered By: Ara Franklin on 01-29-2025 Hemoglobin (Reticulocytes) [Entitic mass] 33.6 pg 30-35 [facility] Reticulocytes Auto (Bld) [#/ Vol]Ordered By: Ara Franklin on 01-29-2025 Reticulocytes/100 RBC (Bld) 1.49 % 0.5-1.5 [facility] Serum creatinine measurement (mass/volume)Ordered By: Ara Franklin on 01-29-2025 Creatinine [Mass/Vol] 0.61 mg/dL Low 0.70-1.20 [facility] Serum globulin measurementOr dered By: Ara Franklin on 01-29-2025 Globulin (S) [Mass/Vol] 2.9 g/dL 2.2-4.2 [facility] Serum glucose measurement (m ass/volume)Ordered By: Ara Franklin on 01-29-2025 Glucose [Mass/Vol] 92 mg/dL 70-99 [facility] Serum or plasma alanine mcdonald otransferase (ALT) measurementOrdered By: Ara Franklin on 01-29-2025 ALT [Catalytic activity/Vol] 24 U/L <35 [facility] Serum or plasma albumin ernestine urement (mass/volume)Ordered By: Ara Franklin on 01-29-2025 Albumin [Mass/Vol] 4.3 g/dL 3.5-5.0 [facility] Serum or plasma albumin/glob ulin mass ratioOrdered By: Ara Franklin on 01-29-2025 Albumin/Globulin [Mass ratio] 1.5 {ratio} 0.9-2.4 [facility] Serum or plasma alkaline chuckie sphatase measurementOrdered By: Ara Franklin on 01-29-2025 ALP [Catalytic activity/Vol] 68 U/L 35-104 [facility] Serum or plasma calcium ernestine urement (mass/volume)Ordered By: Ara Franklin on 01-29-2025 Calcium [Mass/Vol] 9.3 mg/dL 7.6-11.0 [facility] Serum or plasma ferritin ольга surement (mass/volume)Ordered By: Ara Franklin on 01-29-2025 Ferritin [Mass/Vol] 62 ng/mL 22-378 [facility] Serum or plasma iron saturat ion measurement (mass fraction)Ordered By: Ara Franklin on 01-29-2025 Iron saturation [Mass fraction] 33.0 % 13-59 [facility] Serum or plasma urea nitroge n measurement (mass/volume)Ordered By: Ara Franklin on 01-29-2025 Urea nitrogen [Mass/Vol] 16 mg/dL 4-19 [facility] Sodium levelOrdered By: Marlys Franklin on 01-29-2025 Sodium [Moles/Vol] 139 mmol/L 133-145 [facility] Total proteinOrdered By: Andrés Franklin on 01-29-2025 Protein [Mass/Vol] 7.2 g/dL 5.9-8.4 [facility] Vitamin B12on 01-29-2025 Cobalamin (Vitamin B12) [Mass/Vol] 565 pg/mL Normal 180-914 [facility] Comment on above: Performed By: #### L 503.0106, L500.4050, L503.6550, L100.0100, L100.9950, L503.6030 #### [facility] [address] [place], [place], [address] Vitamin B12 ser/plasOrdered By: Ara Franklin on 01-29-2025 Cobalamin (Vitamin B12) [Mass/Vol] 565 pg/mL 180-914 [facility] White blood cell (WBC) count Ordered By: [facility] Rig[facility] on 01-29-2025 WBC (Bld) [#/Vol] 6.8 10*3/uL 4.4-11.0 [facility] Breast Bilateral W/O and Won 01-25-2025 Breast Bilateral W/O and W [facility] [address] [place], [place] [id number] Breast Bilateral W/O and W MR#: [id number] Acct: [id number] Name: SHAUNA RAINEY Rep #: [id number] : 1995 F 29 From: Kristen May PCP: YENNI Hartman Status: REG CLI Study: Breast Bilateral W/O and W Date of Exam: 01/25 Exam# [id number] Ordering Dr: Tamiko Figeuroa MD PROCEDURE: BREAST BILATERAL W/O AND W [...] the right breast is recommended. Reading Location: [id number] CC: Dr. Tamiko Figueroa MD; YENNI Hartman Manufacturing Engineer: Signed Normal [facility] Surgery Visit Reporton 01-23 Surgery Visit Report [facility] [address] [place] [address] OFFICE VISIT Date of Service: 01/23/25 MR#: [id number] Acct: [id number] Name: SHAUNA RAINEY Rep #: [id number] : 1995 Provider: Dr. Tamiko aguero MD Age/Sex: 29/F Location: 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 Ultrasound did not show any abnormal or [...] cooperative, healthy appearing and no acute distress [facility] Head: normal to inspection Chest [...] surgery C (more content not included)... Normal [facility] BI BREAST BIOPSY CLIP IMAGIN Dimitri 01-12-2025 [...] AM -------- ORIGINAL REPORT -------- Dictation workstation: [id number] Interpreted By: Adithya Shaw, STUDY: BI US GUIDED BREAST LOCALIZATION AND BIOPSY LEFT; BI BREAST BIOPSY CLIP IMAGING; 01/12/2025 12:05 pm; 01/12/2025 11:32 am ACCESSION NUMBER(S): [id number]; [id number] ORDERING CLINICIAN: RYAN COCHRAN INDICATION: Left breast [...] Dr. Shaw, a radiology nurse and an staff technologist were present. PROCEDURE: Scanning of the [...] Adithya Shaw 01/12/2025 1:04 PM Dictation workstation: [id number] [facility] BI US GUIDED BREAST LOCALIZA [...] AM -------- ORIGINAL REPORT -------- Dictation workstation: [id number] Interpreted By: Adithya Shaw, STUDY: BI US GUIDED BREAST LOCALIZATION AND BIOPSY LEFT; BI BREAST BIOPSY CLIP IMAGING; 01/12/2025 12:05 pm; 01/12/2025 11:32 am ACCESSION NUMBER(S): [id number]; [id number] ORDERING CLINICIAN: RYAN COCHRAN INDICATION: Left breast [...] Dr. Shaw, a radiology nurse and an staff technologist were present. PROCEDURE: Scanning of the [...] Adithya Shaw 01/12/2025 1:04 PM Dictation workstation: [id number] [facility] MG Breast - unilateral Singl e view for clip placementon 01-12-2025 Radiology Study observation (narrative) [facility] Work Phone: No Panel Informationon 01-12 Status post ultrasou nd guided core needle biopsy of 3 left breast masses followed by tissue marker placement. Pathology is pending. POST PROCEDURE MAMMOGRAM FOR MARKER PLACEMENT. MACRO: None Signed by: Adithya Shaw 01/12/2025 1:04 PM Dictation workstation: [id number] [facility] Interpreted By: Adithya Huertas, STUDY: BI US GUIDED BREAST LOCALIZATION AND BIOPSY LEFT; BI BREAST BIOPSY CLIP IMAGING; 01/12/2025 12:05 pm; 01/12/2025 11:32 am ACCESSION NUMBER(S): [id number]; [id number] ORDERING CLINICIAN: RYAN COCHRAN INDICATION: Left breast [...] Dr. Shaw, a radiology nurse and an staff technologist were present. PROCEDURE: Scanning of the [...] 12:05 pm; 01/12/2025 11:32 am ACCESSION NUMBER(S): [id number]; [id number] ORDERING CLINICIAN: RYAN COCHRAN INDICATION: Left breast [...] Dr. Shaw, a radiology nurse and an staff technologist were present. PROCEDURE: Scanning of the [...] Adithya Shaw 01/12/2025 1:04 PM Dictation workstation: [id number] [facility] Work Phone: No Panel InformationOrdered By: Adithya Shaw on 01-12-2025 [facility] Work Phone: Surgical pathology studyon 0 01-12-2025 Surgical pathology study Pathology report.total SEE COMMENT Surgical Pathology Case: [id number] Authorizing Provider: Ryan Cochran PA-C Collected: 01/12/2025 1138 Ordering Location: [facility] Received: 01/12/2025 1221 Center Pathologist: Tevin Newell [...] (FDA) cleared (test / vendor): Damien CONFIRM anti-(AL) (1E2) Rabbit Monoclonal Primary Anitbody, Damien Multimer [...] (FDA) cleared (test / vendor): Damien CONFIRM anti-(AL) (1E2) Rabbit Monoclonal Primary Anitbody, Damien Multimer [...] Antibody: SP1 (more content not included)... Normal [facility] US Guidance for localization of Breast - lefton 01-12-2025 Radiology Study observation (narrative) [facility] Work Phone: BI MAMMO BILATERAL DIAGNOSTI C TOMOSYNTHESISon 01-10-2025 BI MAMMO BILATERAL DIAGNOSTIC TOMOSYNTHESIS Interpreted By: Adithya Shaw, STUDY: BI MAMMO BILATERAL DIAGNOSTIC TOMOSYNTHESIS; BI US BREAST LIMITED LEFT; 01/10/2025 8:52 am; 01/10/2025 10:45 am ACCESSION NUMBER(S): [id number]; [id number] ORDERING CLINICIAN: RYAN COCHRAN INDICATION: Signs/Symptoms:L breast [...] Adithya Shaw 01/10/2025 11:20 AM Dictation workstation: [id number] [facility] BI US BREAST LIMITED LEFTon 01-10-2025 BI US BREAST LIMITED LEFT Interpreted By: Adithya Shaw, STUDY: BI MAMMO BILATERAL DIAGNOSTIC TOMOSYNTHESIS; BI US BREAST LIMITED LEFT; 01/10/2025 8:52 am; 01/10/2025 10:45 am ACCESSION NUMBER(S): [id number]; [id number] ORDERING CLINICIAN: RYAN COCHRAN INDICATION: Signs/Symptoms:L breast [...] Adithya Shaw 01/10/2025 11:20 AM Dictation workstation: [id number] Abnormal [facility] DBT Breast - bilateral diagn osticon 01-10-2025 Radiology Study observation (narrative) [facility] Work Phone: No Panel InformationOrdered By: Adithya Shaw on 01-10-2025 Interpretation and review of laboratory results Abnormal [facility] Work Phone: [facility] Work Phone: No Panel Informationon 01-10 Multiple [...] Adithya Shaw 01/10/2025 11:20 AM Dictation workstation: [id number] [facility] Interpreted By: Adithya Huertas, STUDY: BI MAMMO BILATERAL DIAGNOSTIC TOMOSYNTHESIS; BI US BREAST LIMITED LEFT; 01/10/2025 8:52 am; 01/10/2025 10:45 am ACCESSION NUMBER(S): [id number]; [id number] ORDERING CLINICIAN: RYAN COCHRAN INDICATION: Signs/Symptoms:L breast [...] 8:52 am; 01/10/2025 10:45 am ACCESSION NUMBER(S): [id number]; [id number] ORDERING CLINICIAN: RYAN COCHRAN INDICATION: Signs/Symptoms:L breast [...] Adithya Shaw 01/10/2025 11:20 AM Dictation workstation: [id number] [facility] Work Phone: US Breast - left limitedon 0 01-10-2025 Radiology Study observation (narrative) [facility] Work Phone: CBC WITH AUTO DIFFERENTIALon 05-25-2024 AUTO NRBC 0.0 % Normal [facility] Comment on above: Performed By: #### L [id number] #### [facility] [address], [place] [address] Ivan Rizvi M.D. [id number] AUTO NRBC ABS COUNT 0.00 K/mcL Normal 0.00-0.00 [facility] Comment on above: Performed By: #### L [id number] #### [facility] [address] [place] [address] Ivan Rizvi M.D. [id number] BASOPHILS ABSOLUTE COUNT 0.04 K/mcL Normal 0.00-0.30 [facility] Comment on above: Performed By: #### L [id number] #### LAB [address] [address] Ivan Rizvi M.D. [id number] Basophils/100 WBC (Bld) 0.8 % Normal [facility] Comment on above: Performed By: #### L [id number] #### LAB [address] [address] Ivan Rizvi M.D. [id number] Eosinophils (Bld) [#/Vol] 0.33 10*3/uL Normal 0.00-0.50 [facility] Comment on above: Performed By: #### L [id number] #### LAB [address] [address] Ivan Rizvi M.D. [id number] Eosinophils/100 WBC (Bld) 6.7 % Normal [facility] Comment on above: Performed By: #### L [id number] #### LAB [address] [address] Ivan Rizvi M.D. [id number] Erythrocyte distribution width (RBC) [Ratio] 14.8 % Normal 11.6-14.8 [facility] Comment on above: Performed By: #### L [id number] #### LAB [address] [address] Ivan Rizvi M.D. [id number] Hematocrit (Bld) [Volume fraction] 42.0 % Normal 36.0-46.0 [facility] Comment on above: Performed By: #### L [id number] #### LAB [address] [place] [address] Ivan Rizvi M.D. [id number] Hemoglobin (Bld) [Mass/Vol] 13.7 g/dL Normal 12.0-16.0 [facility] Comment on above: Performed By: #### L [id number] #### [facility] [address] [address] Ivan Rizvi M.D. [id number] IG ABSOLUTE 0.03 K/mcL Normal 0.00-0.30 [facility] Comment on above: Performed By: #### L [id number] #### LAB [address] [address] Ivan Rizvi M.D. [id number] IG PERCENT 0.60 % Normal [facility] Comment on above: Result Comment: The IG parameter is the percentage of metamyelocytes, myelocytes and promyelocytes. An immature granulocyte count (IG) of 1% or more suggests the possibility of infection, an IG count of 3% is very likely related to an infection. Performed By: #### L [id number] #### LAB [address] [place] [address] Ivan Rizvi M.D. [id number] Lymphocytes (Bld) [#/Vol] 1.94 10*3/uL Normal 0.90-4.00 [facility] Comment on above: Performed By: #### L [id number] #### LAB [address] [place] [address] Ivan Rizvi M.D. [id number] Lymphocytes/100 WBC (Bld) 39.6 % Normal [facility] Comment on above: Performed By: #### L [id number] #### LAB [address] [place] [address] Ivan Rizvi M.D. [id number] MCH (RBC) [Entitic mass] 28.8 pg Normal 26.0-34.0 [facility] Comment on above: Performed By: #### L PM8450 #### LAB [address] [address] Ivan Rizvi M.D. [id number] MCV (RBC) [Entitic vol] 88.4 fL Normal 80.0-100.0 [facility] Comment on above: Performed By: #### L OI0443 #### LAB [address] [place] [address] Ivan Rizvi M.D. [id number] MEAN CORPUSCULAR HEMOGLOBIN CONC 32.6 g/dL Normal 31.0-37.0 [facility] Comment on above: Performed By: #### L [id number] #### LAB [address] [address] Ivan Rizvi M.D. [id number] Monocytes (Bld) [#/Vol] 0.43 10*3/uL Normal 0.30-0.90 [facility] Comment on above: Performed By: #### L [id number] #### LAB [address] [address] Ivan iRzvi M.D. [id number] Monocytes/100 WBC (Bld) 8.8 % Normal [facility] Comment on above: Performed By: #### L [id number] #### LAB [address] [address] Ivan Rizvi M.D. [id number] NEUTROPHILS ABSOLUTE COUNT 2.13 K/mcL Normal 1.70-7.00 [facility] Comment on above: Performed By: #### L [id number] #### LAB [address] [address] Ivan Rizvi M.D. [id number] Neutrophils/100 WBC (Bld) 43.5 % Normal [facility] Comment on above: Performed By: #### L [id number] #### LAB [address] [address] Ivan Rizvi M.D. [id number] Platelet mean volume (Bld) [Entitic vol] 9.8 fL Normal 9.4-12.4 [facility] Comment on above: Performed By: #### L [id number] #### LAB [address] [address] Ivan Rizvi M.D. [id number] Platelets (Bld) [#/Vol] 314 10*3/uL Normal 150-400 [facility] Comment on above: Performed By: #### L [id number] #### LAB [address] [address] Ivan Rizvi M.D. [id number] RBC (Bld) [#/Vol] 4.75 10*6/uL Normal 4.00-5.20 [facility] Comment on above: Performed By: #### L [id number] #### [facility] [address] [address] Ivan Rizvi M.D. [id number] WBC (Bld) [#/Vol] 4.90 10*3/uL Normal 4.50-11.00 [facility] Comment on above: Performed By: #### L [id number] #### [facility] [address] [address] Ivan Rizvi M.D. [id number] COMPREHENSIVE METABOLIC PANE [facility] 05-25-2024 Albumin [Mass/Vol] 3.7 g/dL Normal 3.2-5.2 [facility] Comment on above: Order Comment: [facility] has implemented the eGFR calculation approach that does not have a coefficient for race that conforms to the NKF-ASN Task Force Recommendations. Performed By: #### 4 6126 ####[facility] [address] [address] Ivan Rizvi M.D. [id number] ALP [Catalytic activity/Vol] 70 U/L Normal 40-140 [facility] Comment on above: Order Comment: [facility] has implemented the eGFR calculation approach that does not have a coefficient for race that conforms to the NKF-ASN Task Force Recommendations. Performed By: #### 4 6126 ####[facility] [address] [address] Ivan Rizvi M.D. [id number] ALT [Catalytic activity/Vol] 18 U/L Normal 0-35 U/L [facility] Comment on above: Order Comment: [facility] has implemented the eGFR calculation approach that does not have a coefficient for race that conforms to the NKF-ASN Task Force Recommendations. Performed By: #### 4 6126 ####[facility] [address] [address] Ivan Rizvi M.D. [id number] Anion gap [Moles/Vol] 15 mmol/L Normal 10-20 [facility] Comment on above: Order Comment: [facility] has implemented the eGFR calculation approach that does not have a coefficient for race that conforms to the NKF-ASN Task Force Recommendations. Performed By: #### 4 6126 #### LAB [address] [address] Ivan Rzivi M.D. [id number] AST [Catalytic activity/Vol] 15 U/L Normal 0-35 U/L [facility] Comment on above: Order Comment: [facility] has implemented the eGFR calculation approach that does not have a coefficient for race that conforms to the NKF-ASN Task Force Recommendations. Performed By: #### 4 6126 #### LAB [address] [address] Ivan Rizvi M.D. [id number] Bilirubin [Mass/Vol] 0.4 mg/dL Normal 0.0-1.3 [facility] Comment on above: Order Comment: [facility] has implemented the eGFR calculation approach that does not have a coefficient for race that conforms to the NKF-ASN Task Force Recommendations. Performed By: #### 4 6126 #### LAB [address] [address] Ivan Rizvi M.D. [id number] Calcium [Mass/Vol] 9.1 mg/dL Normal 8.4-10.2 [facility] Comment on above: Order Comment: [facility] has implemented the eGFR calculation approach that does not have a coefficient for race that conforms to the NKF-ASN Task Force Recommendations. Performed By: #### 4 6126 #### LAB [address] [address] Ivan Rizvi M.D. [id number] Chloride [Moles/Vol] 104 mmol/L Normal 98-108 [facility] Comment on above: Order Comment: [facility] has implemented the eGFR calculation approach that does not have a coefficient for race that conforms to the NKF-ASN Task Force Recommendations. Performed By: #### 4 6126 #### LAB [address] [place], [place] [address] Ivan Rizvi M.D. [id number] Creatinine [Mass/Vol] 0.54 mg/dL Normal 0.40-1.10 [facility] Comment on above: Order Comment: [facility] has implemented the eGFR calculation approach that does not have a coefficient for race that conforms to the NKF-ASN Task Force Recommendations. Performed By: #### 4 6126 #### LAB [address] [address] Ivan Rizvi M.D. [id number] EGFR 130 mL/min/1.73 m2 Normal >=60 [facility] Comment on above: Order Comment: [facility] has implemented the eGFR calculation approach that does not have a coefficient for race that conforms to the NKF-ASN Task Force Recommendations. Result Comment: Oskar mated GFR was calculated using the 2020 CKD-EPI creatinine equation. Performed By: #### 4 6126 #### LAB [address] [address] Ivan Rizvi M.D. [id number] Glucose [Mass/Vol] 101 mg/dL High 65-99 [facility] Comment on above: Order Comment: [facility] has implemented the eGFR calculation approach that does not have a coefficient for race that conforms to the NKF-ASN Task Force Recommendations. Performed By: #### 4 6126 #### LAB [address] [address] Ivan Rizvi M.D. [id number] HCO3 (Bld) [Moles/Vol] 23 mmol/L Normal 21-32 [facility] Comment on above: Order Comment: [facility] has implemented the eGFR calculation approach that does not have a coefficient for race that conforms to the NKF-ASN Task Force Recommendations. Performed By: #### 4 6126 #### LAB [address] [address] Ivan Rizvi M.D. [id number] Potassium [Moles/Vol] 4.1 mmol/L Normal 3.5-5.1 [facility] Comment on above: Order Comment: [facility] has implemented the eGFR calculation approach that does not have a coefficient for race that conforms to the NKF-ASN Task Force Recommendations. Performed By: #### 4 6126 #### LAB [address] [address] Ivan Rizvi M.D. [id number] Protein [Mass/Vol] 6.5 g/dL Normal 6.0-8.0 [facility] Comment on above: Order Comment: [facility] has implemented the eGFR calculation approach that does not have a coefficient for race that conforms to the NKF-ASN Task Force Recommendations. Performed By: #### 4 6126 #### LAB [address] [address] Ivan Rizvi M.D. [id number] Sodium [Moles/Vol] 138 mmol/L Normal 135-145 [facility] Comment on above: Order Comment: [facility] has implemented the eGFR calculation approach that does not have a coefficient for race that conforms to the NKF-ASN Task Force Recommendations. Performed By: #### 4 6126 #### LAB [address] [address] Ivan Rizvi M.D. [id number] Urea nitrogen [Mass/Vol] 8 mg/dL Normal 8-25 [facility] Comment on above: Order Comment: [facility] has implemented the eGFR calculation approach that does not have a coefficient for race that conforms to the NKF-ASN Task Force Recommendations. Performed By: #### 4 6126 #### LAB [address] [address] Ivan Rizvi M.D. [id number] Urea nitrogen/Creatinine [Mass ratio] 14.8 mg/mg Normal 10.0-20.0 [facility] Comment on above: Order Comment: [facility] has implemented the eGFR calculation approach that does not have a coefficient for race that conforms to the NKF-ASN Task Force Recommendations. Performed By: #### 4 6126 #### LAB [address] [address] Ivan Rizvi M.D. [id number] CBC WITH AUTO DIFFERENTIALon 05-24-2024 AUTO NRBC 0.0 % Normal [facility] Comment on above: Performed By: #### L [id number] #### LAB [address] [address] Ivan Rizvi M.D. [id number] AUTO NRBC ABS COUNT 0.00 K/mcL Normal 0.00-0.00 [facility] Comment on above: Performed By: #### L [id number] #### LAB [address] [address] Ivan Rizvi M.D. [id number] BASOPHILS ABSOLUTE COUNT 0.05 K/mcL Normal 0.00-0.30 [facility] Comment on above: Performed By: #### L [id number] #### LAB [address] [address] Ivan Rizvi M.D. [id number] Basophils/100 WBC (Bld) 1.0 % [facility] Comment on above: Performed By: #### L [id number] #### LAB [address] [place] [address] Ivan Rizvi M.D. [id number] Eosinophils (Bld) [#/Vol] 0.43 10*3/uL Normal 0.00-0.50 [facility] Comment on above: Performed By: #### L [id number] #### LAB [address] [address] Ivan Rizvi M.D. [id number] Eosinophils/100 WBC (Bld) 8.8 % [facility] Comment on above: Performed By: #### L [id number] #### LAB [address] [place] [address] Ivan Rizvi M.D. [id number] Erythrocyte distribution width (RBC) [Ratio] 15.2 % High 11.6-14.8 [facility] Comment on above: Performed By: #### L [id number] #### LAB [address] [address] Ivan Rizvi M.D. [id number] Hematocrit (Bld) [Volume fraction] 39.6 % Normal 36.0-46.0 [facility] Comment on above: Performed By: #### L [id number] #### LAB [address] [address] Ivan Rizvi M.D. [id number] Hemoglobin (Bld) [Mass/Vol] 12.7 g/dL Normal 12.0-16.0 [facility] Comment on above: Performed By: #### L [id number] #### LAB [address] [address] Ivan Rizvi M.D. [id number] IG ABSOLUTE 0.03 K/mcL Normal 0.00-0.30 [facility] Comment on above: Performed By: #### L [id number] #### LAB [address] [place] [address] Ivan Rizvi M.D. [id number] IG PERCENT 0.60 % Normal [facility] Comment on above: Result Comment: The IG parameter is the percentage of metamyelocytes, myelocytes and promyelocytes. An immature granulocyte count (IG) of 1% or more suggests the possibility of infection, an IG count of 3% is very likely related to an infection. Performed By: #### L [id number] #### LAB [address] [place] [address] Ivan Rizvi M.D. [id number] Lymphocytes (Bld) [#/Vol] 2.04 10*3/uL Normal 0.90-4.00 [facility] Comment on above: Performed By: #### L [id number] #### LAB [address] [place] [address] Ivan Rizvi M.D. [id number] Lymphocytes/100 WBC (Bld) 42.0 % Normal [facility] Comment on above: Performed By: #### L [id number] #### LAB [address] [place] [address] Ivan Rizvi M.D. [id number] MCH (RBC) [Entitic mass] 28.7 pg Normal 26.0-34.0 [facility] Comment on above: Performed By: #### L [id number] #### LAB [address] [address] Ivan Rizvi M.D. [id number] MCV (RBC) [Entitic vol] 89.4 fL Normal 80.0-100.0 [facility] Comment on above: Performed By: #### L [id number] #### [facility] LAB [address] [address] Ivan Rizvi M.D. [id number] MEAN CORPUSCULAR HEMOGLOBIN CONC 32.1 g/dL Normal 31.0-37.0 [facility] Comment on above: Performed By: #### L [id number] #### LAB [address] [address] Ivan Rizvi M.D. [id number] Monocytes (Bld) [#/Vol] 0.44 10*3/uL Normal 0.30-0.90 [facility] Comment on above: Performed By: #### L [id number] #### LAB [address] [address] Ivan Rizvi M.D. [id number] Monocytes/100 WBC (Bld) 9.1 % Normal [facility] Comment on above: Performed By: #### L [id number] #### LAB [address] [address] Ivan Rizvi M.D. [id number] NEUTROPHILS ABSOLUTE COUNT 1.87 K/mcL Normal 1.70-7.00 [facility] Comment on above: Performed By: #### L [id number] #### [facility] LAB [address] [address] Ivan Rizvi M.D. [id number] Neutrophils/100 WBC (Bld) 38.5 % Normal [facility] Comment on above: Performed By: #### L [id number] #### [facility] LAB [address] [address] Ivan Rizvi M.D. [id number] Platelet mean volume (Bld) [Entitic vol] 9.6 fL Normal 9.4-12.4 [facility] Comment on above: Performed By: #### L [id number] #### [facility] LAB [address] [address] Ivan Rizvi M.D. [id number] Platelets (Bld) [#/Vol] 301 10*3/uL Normal 150-400 [facility] Comment on above: Performed By: #### L [id number] #### [facility] LAB [address] [address] Ivan Rizvi M.D. [id number] RBC (Bld) [#/Vol] 4.43 10*6/uL Normal 4.00-5.20 [facility] Comment on above: Performed By: #### L [id number] #### [facility] LAB [address] [address] Ivan Rizvi M.D. [id number] WBC (Bld) [#/Vol] 4.86 10*3/uL Normal 4.50-11.00 [facility] Comment on above: Performed By: #### L [id number] #### [facility] LAB [address] [address] Ivan Rizvi M.D. [id number] COMPREHENSIVE METABOLIC PANE Colin 05-24-2024 Albumin [Mass/Vol] 3.5 g/dL Normal 3.2-5.2 [facility] Comment on above: Order Comment: [facility] has implemented the eGFR calculation approach that does not have a coefficient for race that conforms to the NKF-ASN Task Force Recommendations. Performed By: #### 4 6126 ####[facility] LAB [address] [address] Ivan Rizvi M.D. [id number] ALP [Catalytic activity/Vol] 64 U/L Normal 40-140 [facility] Comment on above: Order Comment: [facility] has implemented the eGFR calculation approach that does not have a coefficient for race that conforms to the NKF-ASN Task Force Recommendations. Performed By: #### 4 6126 #### LAB [address] [address] Ivan Rizvi M.D. [id number] ALT [Catalytic activity/Vol] 20 U/L Normal 0-35 U/L [facility] Comment on above: Order Comment: [facility] has implemented the eGFR calculation approach that does not have a coefficient for race that conforms to the NKF-ASN Task Force Recommendations. Performed By: #### 4 6126 #### LAB [address] [address] Ivan Rizvi M.D. [id number] Anion gap [Moles/Vol] 15 mmol/L Normal 10-20 [facility] Comment on above: Order Comment: [facility] has implemented the eGFR calculation approach that does not have a coefficient for race that conforms to the NKF-ASN Task Force Recommendations. Performed By: #### 4 6126 #### LAB [address] [address] Ivan Rizvi M.D. [id number] AST [Catalytic activity/Vol] 15 U/L Normal 0-35 U/L [facility] Comment on above: Order Comment: [facility] has implemented the eGFR calculation approach that does not have a coefficient for race that conforms to the NKF-ASN Task Force Recommendations. Performed By: #### 4 6126 #### LAB [address] [address] Ivan Rizvi M.D. [id number] Bilirubin [Mass/Vol] 0.3 mg/dL Normal 0.0-1.3 [facility] Comment on above: Order Comment: [facility] has implemented the eGFR calculation approach that does not have a coefficient for race that conforms to the NKF-ASN Task Force Recommendations. Performed By: #### 4 6126 #### LAB [address] [address] Ivan Rizvi M.D. [id number] Calcium [Mass/Vol] 8.9 mg/dL Normal 8.4-10.2 [facility] Comment on above: Order Comment: [facility] has implemented the eGFR calculation approach that does not have a coefficient for race that conforms to the NKF-ASN Task Force Recommendations. Performed By: #### 4 6193 #### LAB [address] [place], [place] [address] Ivan Rizvi M.D. [id number] Chloride [Moles/Vol] 107 mmol/L Normal 98-108 [facility] Comment on above: Order Comment: [facility] has implemented the eGFR calculation approach that does not have a coefficient for race that conforms to the NKF-ASN Task Force Recommendations. Performed By: #### 4 6103 #### LAB [address] [address] Ivan Rizvi M.D. [id number] Creatinine [Mass/Vol] 0.54 mg/dL Normal 0.40-1.10 [facility] Comment on above: Order Comment: [facility] has implemented the eGFR calculation approach that does not have a coefficient for race that conforms to the NKF-ASN Task Force Recommendations. Performed By: #### 4 6112 #### LAB [address] [address] Ivan Rizvi M.D. [id number] EGFR 130 mL/min/1.73 m2 Normal >=60 [facility] Comment on above: Order Comment: [facility] has implemented the eGFR calculation approach that does not have a coefficient for race that conforms to the NKF-ASN Task Force Recommendations. Result Comment: Oskar mated GFR was calculated using the 2020 CKD-EPI creatinine equation. Performed By: #### 4 6143 #### LAB [address] [address] Ivan Rizvi M.D. [id number] Glucose [Mass/Vol] 94 mg/dL Normal 65-99 [facility] Comment on above: Order Comment: [facility] has implemented the eGFR calculation approach that does not have a coefficient for race that conforms to the NKF-ASN Task Force Recommendations. Performed By: #### 4 6126 #### LAB [address] [address] Ivan Rizvi M.D. [id number] HCO3 (Bld) [Moles/Vol] 20 mmol/L Low 21-32 [facility] Comment on above: Order Comment: [facility] has implemented the eGFR calculation approach that does not have a coefficient for race that conforms to the NKF-ASN Task Force Recommendations. Performed By: #### 4 6126 #### LAB [address] [address] Ivan Rizvi M.D. [id number] Potassium [Moles/Vol] 4.4 mmol/L Normal 3.5-5.1 [facility] Comment on above: Order Comment: [facility] has implemented the eGFR calculation approach that does not have a coefficient for race that conforms to the NKF-ASN Task Force Recommendations. Performed By: #### 4 6126 #### LAB [address] [address] Ivan Rizvi M.D. [id number] Protein [Mass/Vol] 6.1 g/dL Normal 6.0-8.0 [facility] Comment on above: Order Comment: [facility] has implemented the eGFR calculation approach that does not have a coefficient for race that conforms to the NKF-ASN Task Force Recommendations. Performed By: #### 4 6126 #### LAB [address] [address] Ivan Rizvi M.D. [id number] Sodium [Moles/Vol] 138 mmol/L Normal 135-145 [facility] Comment on above: Order Comment: [facility] has implemented the eGFR calculation approach that does not have a coefficient for race that conforms to the NKF-ASN Task Force Recommendations. Performed By: #### 4 6126 #### LAB [address] [id number] Ivan Rizvi M.D. [id number] Urea nitrogen [Mass/Vol] 7 mg/dL Low 8-25 [facility] Comment on above: Order Comment: [facility] has implemented the eGFR calculation approach that does not have a coefficient for race that conforms to the NKF-ASN Task Force Recommendations. Performed By: #### 4 6126 #### LAB [address] [address] Ivan Rizvi M.D. [id number] Urea nitrogen/Creatinine [Mass ratio] 13.0 mg/mg Normal 10.0-20.0 [facility] Comment on above: Order Comment: [facility] has implemented the eGFR calculation approach that does not have a coefficient for race that conforms to the NKF-ASN Task Force Recommendations. Performed By: #### 4 6126 #### LAB [address] [address] Ivan Rizvi M.D. [id number] MAGNESIUM LEVELon 05-24-2024 Magnesium [Mass/Vol] 2.1 mg/dL Normal 1.6-2.4 [facility] Comment on above: Performed By: #### 4 6109 ####[facility] LAB [address] [address] Ivan Rizvi M.D. [id number] PHOSPHORUSon 05-24-2024 Phosphate [Mass/Vol] 4.3 mg/dL Normal 2.7-4.5 [facility] Comment on above: Performed By: #### 4 6299 #### LAB [address] [address] Ivan Rizvi M.D. [id number] BLOOD CULTURE AEROBIC/ANAERO BICon 05-23-2024 BLOOD CULTURE AEROBIC/ANAEROBIC BLOOD CULTURE No Growth after 5 days [facility] Comment on above: Performed By: #### 4 4014 #### LAB [address] [id number] Ivan Rizvi M.D. [id number] BLOOD CULTURE AEROBIC/ANAEROBIC BLOOD CULTURE No Growth after 5 days [facility] Comment on above: Performed By: #### 4 4014 #### LAB [address] [address] Ivan Rizvi M.D. [id number] CBC WITH AUTO DIFFERENTIALon 05-23-2024 AUTO NRBC 0.0 % Normal [facility] Comment on above: Performed By: #### L [id number] #### LAB [address] [address] Ivan Rizvi M.D. [id number] AUTO NRBC ABS COUNT 0.00 K/mcL Normal 0.00-0.00 [facility] Comment on above: Performed By: #### L [id number] #### LAB [address] [address] Ivan Rizvi M.D. [id number] BASOPHILS ABSOLUTE COUNT 0.05 K/mcL Normal 0.00-0.30 [facility] Comment on above: Performed By: #### L [id number] #### LAB [address] [address] Ivan Rizvi M.D. [id number] Basophils/100 WBC (Bld) 0.7 % Normal [facility] Comment on above: Performed By: #### L [id number] #### LAB [address] [address] Ivan Rizvi M.D. [id number] Eosinophils (Bld) [#/Vol] 0.33 10*3/uL Normal 0.00-0.50 [facility] Comment on above: Performed By: #### L [id number] #### LAB [address] [place] [address] Ivan Rizvi M.D. [id number] Eosinophils/100 WBC (Bld) 4.8 % Normal [facility] Comment on above: Performed By: #### L [id number] #### LAB [address] [address] Ivan Rizvi M.D. [id number] Erythrocyte distribution width (RBC) [Ratio] 14.8 % Normal 11.6-14.8 [facility] Comment on above: Performed By: #### L [id number] #### LAB [address] [place] [address] Ivan Rizvi M.D. [id number] Hematocrit (Bld) [Volume fraction] 38.3 % Normal 36.0-46.0 [facility] Comment on above: Performed By: #### L [id number] #### LAB [address] [address] Ivan Rizvi M.D. [id number] Hemoglobin (Bld) [Mass/Vol] 12.5 g/dL Normal 12.0-16.0 [facility] Comment on above: Performed By: #### L [id number] #### LAB [address] [address] Ivan Rizvi M.D. [id number] IG ABSOLUTE 0.04 K/mcL Normal 0.00-0.30 [facility] Comment on above: Performed By: #### L [id number] #### LAB [address] [address] Ivan Rizvi M.D. [id number] IG PERCENT 0.60 % Normal [facility] Comment on above: Result Comment: The IG parameter is the percentage of metamyelocytes, myelocytes and promyelocytes. An immature granulocyte count (IG) of 1% or more suggests the possibility of infection, an IG count of 3% is very likely related to an infection. Performed By: #### L [id number] #### LAB [address] [address] Ivan Rizvi M.D. [id number] Lymphocytes (Bld) [#/Vol] 1.74 10*3/uL Normal 0.90-4.00 [facility] Comment on above: Performed By: #### L [id number] #### LAB [address] [address] Ivan Rizvi M.D. [id number] Lymphocytes/100 WBC (Bld) 25.5 % Normal [facility] Comment on above: Performed By: #### L [id number] #### LAB [address] [address] Ivan Rizvi M.D. [id number] MCH (RBC) [Entitic mass] 28.7 pg Normal 26.0-34.0 [facility] Comment on above: Performed By: #### L [id number] #### LAB [address] [address] Ivan Rizvi M.D. [id number] MCV (RBC) [Entitic vol] 87.8 fL Normal 80.0-100.0 [facility] Comment on above: Performed By: #### L [id number] #### LAB [address] [address] Ivan Rizvi M.D. [id number] MEAN CORPUSCULAR HEMOGLOBIN CONC 32.6 g/dL Normal 31.0-37.0 [facility] Comment on above: Performed By: #### L [id number] #### LAB [address] [address] Ivan Rizvi M.D. [id number] Monocytes (Bld) [#/Vol] 0.56 10*3/uL Normal 0.30-0.90 [facility] Comment on above: Performed By: #### L [id number] #### LAB [address] [address] Ivan Rizvi M.D. [id number] Monocytes/100 WBC (Bld) 8.2 % Normal [facility] Comment on above: Performed By: #### L [id number] #### LAB [address] [address] Ivan Rizvi M.D. [id number] NEUTROPHILS ABSOLUTE COUNT 4.10 K/mcL Normal 1.70-7.00 [facility] Comment on above: Performed By: #### L [id number] #### LAB [address] [address] Ivan Rizvi M.D. [id number] Neutrophils/100 WBC (Bld) 60.2 % Normal [facility] Comment on above: Performed By: #### L [id number] #### [facility] LAB [address] [address] Ivan Rizvi M.D. [id number] Platelet mean volume (Bld) [Entitic vol] 9.5 fL Normal 9.4-12.4 [facility] Comment on above: Performed By: #### L [id number] #### [facility] LAB [address] [address] Ivan Rizvi M.D. [id number] Platelets (Bld) [#/Vol] 309 10*3/uL Normal 150-400 [facility] Comment on above: Performed By: #### L [id number] #### [facility] LAB [address] [address] Ivan Rizvi M.D. [id number] RBC (Bld) [#/Vol] 4.36 10*6/uL Normal 4.00-5.20 [facility] Comment on above: Performed By: #### L [id number] #### [facility] LAB [address] [address] Ivan Rizvi M.D. [id number] WBC (Bld) [#/Vol] 6.82 10*3/uL Normal 4.50-11.00 [facility] Comment on above: Performed By: #### L [id number] #### [facility] LAB [address] [address] Ivan Rizvi M.D. [id number] COMPREHENSIVE METABOLIC PANE Colin 05-23-2024 Albumin [Mass/Vol] 3.6 g/dL Normal 3.2-5.2 [facility] Comment on above: Order Comment: [facility] has implemented the eGFR calculation approach that does not have a coefficient for race that conforms to the NKF-ASN Task Force Recommendations. Performed By: #### 4 6126 ####[facility] LAB [address] [address] Ivan Rizvi M.D. [id number] ALP [Catalytic activity/Vol] 77 U/L Normal 40-140 [facility] Comment on above: Order Comment: [facility] has implemented the eGFR calculation approach that does not have a coefficient for race that conforms to the NKF-ASN Task Force Recommendations. Performed By: #### 4 6126 ####[facility] LAB [address] [address] Ivan Rizvi M.D. [id number] ALT [Catalytic activity/Vol] 22 U/L Normal 0-35 U/L [facility] Comment on above: Order Comment: [facility] has implemented the eGFR calculation approach that does not have a coefficient for race that conforms to the NKF-ASN Task Force Recommendations. Performed By: #### 4 6126 #### LAB [address] [address] Ivan Rizvi M.D. [id number] Anion gap [Moles/Vol] 14 mmol/L Normal 10-20 [facility] Comment on above: Order Comment: [facility] has implemented the eGFR calculation approach that does not have a coefficient for race that conforms to the NKF-ASN Task Force Recommendations. Performed By: #### 4 6126 #### LAB [address] [address] Ivan Rizvi M.D. [id number] AST [Catalytic activity/Vol] 19 U/L Normal 0-35 U/L [facility] Comment on above: Order Comment: [facility] has implemented the eGFR calculation approach that does not have a coefficient for race that conforms to the NKF-ASN Task Force Recommendations. Performed By: #### 4 6126 #### LAB [address] [address] Ivan Rizvi M.D. [id number] Bilirubin [Mass/Vol] 0.3 mg/dL Normal 0.0-1.3 [facility] Comment on above: Order Comment: [facility] has implemented the eGFR calculation approach that does not have a coefficient for race that conforms to the NKF-ASN Task Force Recommendations. Performed By: #### 4 6126 #### LAB [address] [address] Ivan Rizvi M.D. [id number] Calcium [Mass/Vol] 8.8 mg/dL Normal 8.4-10.2 [facility] Comment on above: Order Comment: [facility] has implemented the eGFR calculation approach that does not have a coefficient for race that conforms to the NKF-ASN Task Force Recommendations. Performed By: #### 4 6126 #### LAB [address] [address] Ivan Rizvi M.D. [id number] Chloride [Moles/Vol] 108 mmol/L Normal 98-108 [facility] Comment on above: Order Comment: [facility] has implemented the eGFR calculation approach that does not have a coefficient for race that conforms to the NKF-ASN Task Force Recommendations. Performed By: #### 4 6126 #### LAB [address] [address] Ivan Rizvi M.D. [id number] Creatinine [Mass/Vol] 0.45 mg/dL Normal 0.40-1.10 [facility] Comment on above: Order Comment: [facility] has implemented the eGFR calculation approach that does not have a coefficient for race that conforms to the NKF-ASN Task Force Recommendations. Performed By: #### 4 6126 #### LAB [address] [address] Ivan Rizvi M.D. [id number] EGFR 135 mL/min/1.73 m2 Normal >=60 [facility] Comment on above: Order Comment: [facility] has implemented the eGFR calculation approach that does not have a coefficient for race that conforms to the NKF-ASN Task Force Recommendations. Result Comment: Oskar mated GFR was calculated using the 2020 CKD-EPI creatinine equation. Performed By: #### 4 6126 #### LAB [address] [address] Ivan Rizvi M.D. [id number] Glucose [Mass/Vol] 102 mg/dL High 65-99 [facility] Comment on above: Order Comment: [facility] has implemented the eGFR calculation approach that does not have a coefficient for race that conforms to the NKF-ASN Task Force Recommendations. Performed By: #### 4 6126 #### LAB [address] [address] Ivan Rizvi M.D. [id number] HCO3 (Bld) [Moles/Vol] 21 mmol/L Normal 21-32 [facility] Comment on above: Order Comment: [facility] has implemented the eGFR calculation approach that does not have a coefficient for race that conforms to the NKF-ASN Task Force Recommendations. Performed By: #### 4 6126 #### LAB [address] [address] Ivan Rizvi M.D. [id number] Potassium [Moles/Vol] 3.8 mmol/L Normal 3.5-5.1 [facility] Comment on above: Order Comment: [facility] has implemented the eGFR calculation approach that does not have a coefficient for race that conforms to the NKF-ASN Task Force Recommendations. Performed By: #### 4 6126 #### LAB [address] [address] Ivan Rizvi M.D. [id number] Protein [Mass/Vol] 6.3 g/dL Normal 6.0-8.0 [facility] Comment on above: Order Comment: [facility] has implemented the eGFR calculation approach that does not have a coefficient for race that conforms to the NKF-ASN Task Force Recommendations. Performed By: #### 4 6126 #### LAB [address] [address] Ivan Rizvi M.D. [id number] Sodium [Moles/Vol] 139 mmol/L Normal 135-145 [facility] Comment on above: Order Comment: [facility] has implemented the eGFR calculation approach that does not have a coefficient for race that conforms to the NKF-ASN Task Force Recommendations. Performed By: #### 4 6126 ####[facility] LAB [address] [address] Ivan Rizvi M.D. [id number] Urea nitrogen [Mass/Vol] 5 mg/dL Low 8-25 [facility] Comment on above: Order Comment: [facility] has implemented the eGFR calculation approach that does not have a coefficient for race that conforms to the NKF-ASN Task Force Recommendations. Performed By: #### 4 6126 ####[facility] LAB [address] [place], [place] [address] Ivan Rizvi M.D. [id number] Urea nitrogen/Creatinine [Mass ratio] 11.1 mg/mg Normal 10.0-20.0 [facility] Comment on above: Order Comment: [facility] Services has implemented the eGFR calculation approach that does not have a coefficient for race that conforms to the NKF-ASN Task Force Recommendations. Performed By: #### 4 6126 ####[facility] [address], [place] [address] Ivan Rizvi M.D. [id number] CT ANGIO CHEST FOR PULMONARY EMBOLISMon 05-23-2024 CT ANGIO CHEST FOR PULMONARY EMBOLISM Interpreted By: Roberto Ortiz, STUDY: CT ANGIO CHEST FOR PULMONARY EMBOLISM; 05/23/2024 1:48 am INDICATION: Signs/Symptoms:pain. COMPARISON: Chest radiograph 05/22/2024 ACCESSION NUMBER(S): [id number] ORDERING CLINICIAN: MARIELA SCHULZ TECHNIQUE: Axial CTA [...] Roberto Ortiz 05/23/2024 1:56 AM Dictation workstation: [id number] [facility] CT Chest W contrast IV and C T angiogram Pulmonary arteries for pulmonary embolus W contrast Jeevan 05-23-2024 No acute pulmonary e mbolus to the segmental level. Patchy right basilar airspace opacity most compatible with pneumonia. MACRO: None. Signed by: Roberto Ortiz 05/23/2024 1:56 AM Dictation workstation: [id number] Interpreted By: Roberto Ortiz, STUDY: CT ANGIO CHEST FOR PULMONARY EMBOLISM; 05/23/2024 1:48 am INDICATION: Signs/Symptoms:pain. COMPARISON: Chest radiograph 05/22/2024 ACCESSION NUMBER(S): [id number] ORDERING CLINICIAN: MARIELA SCHULZ TECHNIQUE: Axial CTA [...] Signs/Symptoms:pain. COMPARISON: Chest radiograph 05/22/2024 ACCESSION NUMBER(S): [id number] ORDERING CLINICIAN: MARIELA SCHULZ TECHNIQUE: Axial CTA [...] Roberto Ortiz 05/23/2024 1:56 AM Dictation workstation: [id number] [facility] Work Phone: Radiology Study observation (narrative) [facility] Work Phone: CT Chest W contrast IV and C T angiogram Pulmonary arteries for pulmonary embolus W contrast IVOrdered By: Roberto Ortiz on 05-23-2024 [facility] Work Phone: HCG, BLOOD, QUANTITATIVEon 1 HCG, QUANTITATIVE < Normal 0-5 [facility] [place] Comment on above: Order Comment: Males and non females: <5 mIU/mLFemales during :3-4 weeks 9-130 mIU/mL4-5 weeks 75-2600 mIU/mL5-6 weeks 850-20,800 mIU/mL6-7 weeks 4000-100,200 mIU/mL7-12 weeks 11,500-289,000 mIU/mL12-16 weeks 18,300-137,000 mIU/mL16-29 weeks 1,400-53,000 mIU/mL29-41 weeks 940-60,000 mIU/mL Performed By: #### 4 5827 ####[facility] [address] [place] [address] Ivan Rizvi M.D. [id number] Lactateon 05-23-2024 Lactate [Moles/Vol] 2.1 mmol/L High 0.4 - 2. 0 mmol/L [facility] Lactate [Moles/Vol] 2.1 mmol/L High 0.4-2.0 [facility] Comment on above: Order Comment: Venip uncture immediately after or during the administration of Metamizole may lead to falsely low results. Testing should be performed immediately prior to Metamizole dosing. Performed By: #### 2 524-7 #### BECKMAN RICH ([id number]) [facility] ([facility]) [address] [place] [address] Lactate [Moles/Vol]on 2023 Interpretation and review of laboratory results Abnormal [facility] Venipuncture immedia tely after or during the administration of Metamizole may lead to falsely low results. Testing should be performed immediately prior to Metamizole dosing. [facility] MAGNESIUM LEVELon 05-23-2024 Magnesium [Mass/Vol] 2.1 mg/dL Normal 1.6-2.4 [facility] Comment on above: Performed By: #### 4 6109 #### LAB [address] [address] Ivan Rizvi M.D. [id number] PHOSPHORUSon 05-23-2024 Phosphate [Mass/Vol] 3.5 mg/dL Normal 2.7-4.5 [facility] Comment on above: Performed By: #### 4 6299 #### LAB [address] [address] Ivan Rizvi M.D. [id number] PROCALCITONINon 05-23-2024 PROCALCITONIN < Normal <0.50 [facility] Comment on above: Order Comment: Resul ts <0.50 ng/ml represent a low risk of severe sepsis and/or septic shock. Performed By: #### 4 7652 #### LAB [address] [address] Ivan Rizvi M.D. [id number] RESPIRATORY PCR PANELon 05-09 RESPIRATORY PCR PANEL [...] SARS-COV-2 (BIOFIRE) Not Detected Normal Not Detected [facility] Comment on above: Performed By: #### L [id number] #### [facility] [address] [address] Keyshawn Monzon M.D. [id number] S.PNEUMONIAE URINE ANTIGENon 05-23-2024 S.PNEUMONIAE URINE ANTIGEN STREP PNEUMONIAE ANTIGEN, URINE Presumptive Negative for Pneumococcal pneumoniae A negative result suggests no current or recent pneumococcal infection. A negative result does not rule out Streptococcus pneumoniae infection since the antigen present in the sample may be below the detection limit of the test. Normal [facility] Comment on above: Performed By: #### 4 7222 #### LAB [address] [address] Ivan Rizvi M.D. [id number] URINALYSISon 05-23-2024 BACTERIA, URINE None Seen Normal None Seen [facility] Comment on above: Order Comment: Micro scopic examination is performed on all urinalysis samples and only positive findings are reported. The test for blood on the chemical analytic portion of urinalysis may also be positive due to hemoglobinuria and myoglobinuria and if red blood cells are present they are quantified by microscopic examination. Performed By: #### 4 6625 #### LAB [address] [place] [address] Ivan Rizvi M.D. [id number] BILIRUBIN, URINE Negative Normal Negative [facility] Comment on above: Order Comment: Micro scopic examination is performed on all urinalysis samples and only positive findings are reported. The test for blood on the chemical analytic portion of urinalysis may also be positive due to hemoglobinuria and myoglobinuria and if red blood cells are present they are quantified by microscopic examination. Performed By: #### 4 6625 #### LAB [address] [address] Ivan Rizvi M.D. [id number] BLOOD, URINE Small Abnormal Negative [facility] Comment on above: Order Comment: Micro scopic examination is performed on all urinalysis samples and only positive findings are reported. The test for blood on the chemical analytic portion of urinalysis may also be positive due to hemoglobinuria and myoglobinuria and if red blood cells are present they are quantified by microscopic examination. Performed By: #### 4 6625 #### LAB [address] [address] Ivan Rizvi M.D. [id number] Clarity (U) Clear Normal Clear [facility] Comment on above: Order Comment: Micro scopic examination is performed on all urinalysis samples and only positive findings are reported. The test for blood on the chemical analytic portion of urinalysis may also be positive due to hemoglobinuria and myoglobinuria and if red blood cells are present they are quantified by microscopic examination. Performed By: #### 4 6625 #### LAB [address] [address] Ivan Rizvi M.D. [id number] Color (U) Colorless Normal Colorless, Yellow [facility] Comment on above: Order Comment: Micro scopic examination is performed on all urinalysis samples and only positive findings are reported. The test for blood on the chemical analytic portion of urinalysis may also be positive due to hemoglobinuria and myoglobinuria and if red blood cells are present they are quantified by microscopic examination. Performed By: #### 4 6625 #### LAB [address] [address] Ivan Rizvi M.D. [id number] Glucose Ql (U) Negative Normal Negative [facility] Comment on above: Order Comment: Micro scopic examination is performed on all urinalysis samples and only positive findings are reported. The test for blood on the chemical analytic portion of urinalysis may also be positive due to hemoglobinuria and myoglobinuria and if red blood cells are present they are quantified by microscopic examination. Performed By: #### 4 6625 #### LAB [address] [address] Ivan Rizvi M.D. [id number] Ketones Ql (U) Negative Normal Negative [facility] Comment on above: Order Comment: Micro scopic examination is performed on all urinalysis samples and only positive findings are reported. The test for blood on the chemical analytic portion of urinalysis may also be positive due to hemoglobinuria and myoglobinuria and if red blood cells are present they are quantified by microscopic examination. Performed By: #### 4 6625 #### LAB [address] [address] Ivan Rizvi M.D. [id number] Leukocyte esterase Test strip Ql (U) Negative Normal Negative [facility] Comment on above: Order Comment: Micro scopic examination is performed on all urinalysis samples and only positive findings are reported. The test for blood on the chemical analytic portion of urinalysis may also be positive due to hemoglobinuria and myoglobinuria and if red blood cells are present they are quantified by microscopic examination. Performed By: #### 4 6625 #### LAB [address] [address] Ivan Rizvi M.D. [id number] MUCUS, URINE Rare Normal None Seen, Rare [facility] Comment on above: Order Comment: Micro scopic examination is performed on all urinalysis samples and only positive findings are reported. The test for blood on the chemical analytic portion of urinalysis may also be positive due to hemoglobinuria and myoglobinuria and if red blood cells are present they are quantified by microscopic examination. Performed By: #### 4 6625 #### LAB [address] [address] Ivan Rizvi M.D. [id number] NITRITE, URINE Negative Normal Negative [facility] Comment on above: Order Comment: Micro scopic examination is performed on all urinalysis samples and only positive findings are reported. The test for blood on the chemical analytic portion of urinalysis may also be positive due to hemoglobinuria and myoglobinuria and if red blood cells are present they are quantified by microscopic examination. Performed By: #### 4 6625 #### LAB [address] [address] Ivan Rizvi M.D. [id number] pH (U) 6.5 [pH] Normal 5.0-7.0 [facility] Comment on above: Order Comment: Micro scopic examination is performed on all urinalysis samples and only positive findings are reported. The test for blood on the chemical analytic portion of urinalysis may also be positive due to hemoglobinuria and myoglobinuria and if red blood cells are present they are quantified by microscopic examination. Performed By: #### 4 6625 #### LAB [address] [address] Ivan Rizvi M.D. [id number] PROTEIN, URINE Negative Normal Negative [facility] Comment on above: Order Comment: Micro scopic examination is performed on all urinalysis samples and only positive findings are reported. The test for blood on the chemical analytic portion of urinalysis may also be positive due to hemoglobinuria and myoglobinuria and if red blood cells are present they are quantified by microscopic examination. Performed By: #### 4 6625 #### LAB [address] [address] Ivan Rizvi M.D. [id number] RBC LM.HPF (Urine sed) [#/Area] 1 /[HPF] Normal 0-3 [facility] Comment on above: Order Comment: Micro scopic examination is performed on all urinalysis samples and only positive findings are reported. The test for blood on the chemical analytic portion of urinalysis may also be positive due to hemoglobinuria and myoglobinuria and if red blood cells are present they are quantified by microscopic examination. Performed By: #### 4 6625 #### LAB [address] [address] Ivan Rizvi M.D. [id number] Specific gravity (U) [Rel density] 1.011 Normal 1.005-1.025 [facility] Comment on above: Order Comment: Micro scopic examination is performed on all urinalysis samples and only positive findings are reported. The test for blood on the chemical analytic portion of urinalysis may also be positive due to hemoglobinuria and myoglobinuria and if red blood cells are present they are quantified by microscopic examination. Performed By: #### 4 6625 #### LAB [address] [address] Ivan Rizvi M.D. [id number] SQUAMOUS EPITHELIAL 2 /hpf Normal 0-4 [facility] Comment on above: Order Comment: Micro scopic examination is performed on all urinalysis samples and only positive findings are reported. The test for blood on the chemical analytic portion of urinalysis may also be positive due to hemoglobinuria and myoglobinuria and if red blood cells are present they are quantified by microscopic examination. Performed By: #### 4 6625 #### LAB [address], [place] [address] Ivan Rizvi M.D. [id number] UROBILINOGEN, URINE <2.0 Normal <2.0 [facility] Comment on above: Order Comment: Micro scopic examination is performed on all urinalysis samples and only positive findings are reported. The test for blood on the chemical analytic portion of urinalysis may also be positive due to hemoglobinuria and myoglobinuria and if red blood cells are present they are quantified by microscopic examination. Performed By: #### 4 6625 #### LAB [address], [place] [address] Ivan Rizvi M.D. [id number] WBC LM.HPF (Urine sed) [#/Area] 1 /[HPF] Normal 0-5 [facility] Comment on above: Order Comment: Micro scopic examination is performed on all urinalysis samples and only positive findings are reported. The test for blood on the chemical analytic portion of urinalysis may also be positive due to hemoglobinuria and myoglobinuria and if red blood cells are present they are quantified by microscopic examination. Performed By: #### 4 6625 #### LAB [address], [place] [address] Ivan Rizvi M.D. [id number] Bacteria identifiedon 2023 Bacteria identified Cx Nom (Bld) Test: Blood Culture Specimen Source: Peripheral Venipuncture Specimen Type: Blood culture Specimen Date: 05/22/20242239 Result Date: 05/27/2024 120 Result Status: Final result Abnormal: No Resulting Lab: [facility] [address] [place] [address] CULTURE No growth at 4 days - FINAL REPORT [facility] Comment on above: Performed By: #### 6 00-7 #### FAISAL Chery ([id number]) [facility] ([facility]) [address] [place] [address] Bacteria identified Cx Nom (Bld) Test: Blood Culture Specimen Source: Peripheral Venipuncture Specimen Type: Blood culture Specimen Date: 05/22/20242235 Result Date: 05/27/2024 1201 Result Status: Final result Abnormal: No Resulting Lab: [facility] [address] [facility] [address] CULTURE No growth at 4 days - FINAL REPORT Normal [facility] Comment on above: Performed By: #### 6 00-7 #### FAISAL Chery ([id number]) [facility] ([facility]) [address] [id number] CBC W Auto Differential pane l (Bld)on 05-22-2024 Basophils (Bld) [#/Vol] 0.05 10*3/uL [facility] Basophils/100 WBC (Bld) 0.5 % 0.0 - 2.0 % [facility] Eosinophils (Bld) [#/Vol] 0.10 10*3/uL [facility] Eosinophils/100 WBC (Bld) 1.0 % 0.0 - 6.0 % [facility] Erythrocyte distribution width (RBC) [Ratio] 14.3 % 11.5 - 14.5 % [facility] Hematocrit (Bld) [Volume fraction] 40.4 % 36.0 - 46.0 % [facility] Hemoglobin (Bld) [Mass/Vol] 13.3 g/dL 12.0 - 16.0 g/dL [facility] Immature granulocytes (Bld) [#/Vol] 0.05 10*3/uL [facility] Immature granulocytes/100 WBC (Bld) 0.5 % 0.0 - 0.9 % [facility] Comment on above: Immature Granulocyte Count (IG) includes promyelocytes, myelocytes and metamyelocytes but does not include bands. Percent differential counts (%) should be interpreted in the context of the absolute cell counts (cells/UL). Interpretation and review of laboratory results Abnormal [facility] Lymphocytes (Bld) [#/Vol] 1.46 10*3/uL [facility] Lymphocytes/100 WBC (Bld) 14.0 % 13.0 - 44.0 % [facility] MCH (RBC) [Entitic mass] 29.2 pg 26.0 - 34.0 pg [facility] MCHC (RBC) [Mass/Vol] 32.9 g/dL 32.0 - 36.0 g/dL [facility] MCV (RBC) [Entitic vol] 89 fL 80 - 100 fL [facility] Monocytes (Bld) [#/Vol] 0.37 10*3/uL [facility] Monocytes/100 WBC (Bld) 3.6 % 2.0 - 10.0 % [facility] Neutrophils (Bld) [#/Vol] 8.39 10*3/uL High [facility] Comment on above: Percent differential counts (%) should be interpreted in the context of the absolute cell counts (cells/uL). Neutrophils/100 WBC (Bld) 80.4 % 40.0 - 80.0 % [facility] Nucleated RBC/100 WBC (Bld) [Ratio] 0.0 % [facility] Platelets (Bld) [#/Vol] 362 10*3/uL [facility] RBC (Bld) [#/Vol] 4.55 10*6/uL [facility] WBC (Bld) [#/Vol] 10.4 10*3/uL [facility] Basophils (Bld) [#/Vol] 0.05 x10*3/uL Normal 0.00-0.10 [facility] Comment on above: Performed By: #### 5 7021-8 #### KARUNA VILLANUEVA ([id number]) [facility] ([facility]) [address] [place] [address] Basophils/100 WBC (Bld) 0.5 % Normal 0.0-2.0 [facility] Comment on above: Performed By: #### 5 7021-8 #### KARUNA VILLANUEVA ([id number]) [facility] ([facility]) [address] [place] [address] Eosinophils (Bld) [#/Vol] 0.10 x10*3/uL Normal 0.00-0.70 [facility] Comment on above: Performed By: #### 5 7021-8 #### KRAUNA VILLANUEVA ([id number]) [facility] ([facility]) [address] [place] [address] Eosinophils/100 WBC (Bld) 1.0 % Normal 0.0-6.0 [facility] Comment on above: Performed By: #### 5 7021-8 #### KARUNA VILLANUEVA ([id number]) [facility] ([facility]) [address] [place] [address] Erythrocyte distribution width (RBC) [Ratio] 14.3 % Normal 11.5-14.5 [facility] Comment on above: Performed By: #### 5 7021-8 #### KARUNA VILLANUEVA ([id number]) [facility] ([facility]) [address] [place] [address] Hematocrit (Bld) [Volume fraction] 40.4 % Normal 36.0-46.0 [facility] Comment on above: Performed By: #### 5 7021-8 #### KARUNA VILLANUEVA ([id number]) [facility] ([facility]) [address] [place] [address] Hemoglobin (Bld) [Mass/Vol] 13.3 g/dL Normal 12.0-16.0 [facility] Comment on above: Performed By: #### 5 7021-8 #### KARUNA VILLANUEVA ([id number]) [facility] ([facility]) [address] [place] [address] Immature granulocytes (Bld) [#/Vol] 0.05 x10*3/uL Normal 0.00-0.70 [facility] Comment on above: Performed By: #### 5 7021-8 #### KARUNA VILLANUEVA ([id number]) [facility] ([facility]) [address] [place] [address] Immature granulocytes/100 WBC (Bld) 0.5 % Normal 0.0-0.9 [facility] Comment on above: Result Comment: Karen ture Granulocyte Count (IG) includes promyelocytes, myelocytes and metamyelocytes but does not include bands. Percent differential counts (%) should be interpreted in the context of the absolute cell counts (cells/UL). Performed By: #### 5 7021-8 #### KARUNA VILLANUEVA ([id number]) [facility] ([facility]) [address] [place] [address] Lymphocytes (Bld) [#/Vol] 1.46 x10*3/uL Normal 1.20-4.80 [facility] Comment on above: Performed By: #### 7021-8 #### KARUNA VILLANUEVA ([id number]) [facility] ([facility]) [address] [place] [address] Lymphocytes/100 WBC (Bld) 14.0 % Normal 13.0-44.0 [facility] Comment on above: Performed By: #### 5 7021-8 #### KARUNA VILLANUEVA ([id number]) [facility] ([facility]) [address] [place] [address] MCH (RBC) [Entitic mass] 29.2 pg Normal 26.0-34.0 [facility] Comment on above: Performed By: #### 5 7021-8 #### KARUNA VILLANUEVA ([id number]) [facility] ([facility]) [address] [place] [address] MCHC (RBC) [Mass/Vol] 32.9 g/dL Normal 32.0-36.0 [facility] Comment on above: Performed By: #### 5 7021-8 #### KARUNA VILLANUEVA ([id number]) [facility] ([facility]) [address] [place] [address] MCV (RBC) [Entitic vol] 89 fL Normal 80-100 [facility] Comment on above: Performed By: #### 5 7021-8 #### KARUNA VILLANUEVA ([id number]) [facility] ([facility]) [address] [place] [address] Monocytes (Bld) [#/Vol] 0.37 x10*3/uL Normal 0.10-1.00 [facility] Comment on above: Performed By: #### 5 7021-8 #### KARUNA VILLANUEVA ([id number]) [facility] ([facility]) [address] [place] [address] Monocytes/100 WBC (Bld) 3.6 % Normal 2.0-10.0 [facility] Comment on above: Performed By: #### 5 7021-8 #### KARUNA VILLANUEVA ([id number]) [facility] ([facility]) [address] [place] [address] Neutrophils (Bld) [#/Vol] 8.39 x10*3/uL High 1.20-7.70 [facility] Comment on above: Result Comment: Perc ent differential counts (%) should be interpreted in the context of the absolute cell counts (cells/uL). Performed By: #### 5 7021-8 #### KARUNA VILLANUEVA ([id number]) [facility] ([facility]) [address] [place] [address]4847 Neutrophils/100 WBC (Bld) 80.4 % Normal 40.0-80.0 [facility] Comment on above: Performed By: #### 5 7021-8 #### KARUNA VILLANUEVA ([id number]) [facility] ([facility]) [address] [place] [address] Nucleated RBC/100 WBC (Bld) [Ratio] 0.0 /100 WBCs Normal 0.0-0.0 [facility] Comment on above: Performed By: #### 5 7021-8 #### KARUNA VILLANUEVA ([id number]) [facility] ([facility]) [address] [place] [address] Platelets (Bld) [#/Vol] 362 x10*3/uL Normal 150-450 [facility] Comment on above: Performed By: #### 5 7021-8 #### KARUNA VILLANUEVA ([id number]) [facility] ([facility]) [address] [place] [address] 63216 RBC (Bld) [#/Vol] 4.55 x10*6/uL Normal 4.00-5.20 [facility] Comment on above: Performed By: #### 5 7021-8 #### KARUNA RICH ([id number]) [facility] ([facility]) [address] [place] [address] WBC (Bld) [#/Vol] 10.4 x10*3/uL Normal 4.4-11.3 [facility] Comment on above: Performed By: #### 5 7021-8 #### BECKMAN RICH ([id number]) [facility] ([facility]) [address] [place] [address] Comprehensive metabolic 2000 panelon 05-22-2024 Albumin BCP dye [Mass/Vol] 3.8 g/dL 3.4 - 5.0 g/dL [facility] ALP [Catalytic activity/Vol] 61 U/L 33 - 110 U/L [facility] ALT With P-5'-P [Catalytic activity/Vol] 26 U/L 7 - 45 U/L [facility] Comment on above: Patients treated wit h Sulfasalazine may generate falsely decreased results for ALT. Anion gap [Moles/Vol] 13 mmol/L 10 - 2 0 mmol/L [facility] AST With P-5'-P [Catalytic activity/Vol] 15 U/L 9 - 39 U/L [facility] Bilirubin [Mass/Vol] 0.4 mg/dL 0.0 - 1 .2 mg/dL [facility] Calcium [Mass/Vol] 8.7 mg/dL 8.6 - 10. 3 mg/dL [facility] Chloride [Moles/Vol] 104 mmol/L 98 - 10 7 mmol/L [facility] CO2 [Moles/Vol] 25 mmol/L 21 - 32 mmol/L [facility] Creatinine [Mass/Vol] 0.56 mg/dL 0.50 - 1.05 mg/dL [facility] eGFR - PINF [facility] Comment on above: Calculations of oskar mated GFR are performed using the 2020 CKD-EPI Study Refit equation without the race variable for the IDMS-Traceable creatinine methods. https://jasn.asnjournals.org/content//ASN.48535 78013 Glucose [Mass/Vol] 106 mg/dL High 74 - 99 mg/dL [facility] Interpretation and review of laboratory results Abnormal [facility] Potassium [Moles/Vol] 3.0 mmol/L Low 3.5 - 5.3 mmol/L [facility] Protein [Mass/Vol] 7.0 g/dL 6.4 - 8.2 g/dL [facility] Sodium [Moles/Vol] 139 mmol/L 136 - 145 mmol/L [facility] Urea nitrogen [Mass/Vol] 10 mg/dL 6 - 23 mg/dL [facility] Albumin BCP dye [Mass/Vol] 3.8 g/dL Normal 3.4-5.0 [facility] Comment on above: Performed By: #### 2 4323-8 #### KARUNA VILLANUEVA ([id number]) [facility] ([facility]) [address] [place] [address] ALP [Catalytic activity/Vol] 61 U/L Normal 33-110 [facility] Comment on above: Performed By: #### 2 4323-8 #### KARUNA VILLANUEVA ([id number]) [facility] ([facility]) [facility] [place] [address] ALT With P-5'-P [Catalytic activity/Vol] 26 U/L Normal 7-45 [facility] Comment on above: Result Comment: Joy ents treated with Sulfasalazine may generate falsely decreased results for ALT. Performed By: #### 2 4323-8 #### KARUNA VILLANUEVA ([id number]) [facility] ([facility]) [address] [place] [address] Anion gap [Moles/Vol] 13 mmol/L Normal 10-20 [facility] Comment on above: Performed By: #### 2 4323-8 #### KARUNA VILLANUEVA ([id number]) [facility] ([facility]) [address] [place] [address] AST With P-5'-P [Catalytic activity/Vol] 15 U/L Normal 9-39 [facility] Comment on above: Performed By: #### 2 4323-8 #### KARUNA VILLANUEVA ([id number]) [facility] ([facility]) [address] [place] [address] Bilirubin [Mass/Vol] 0.4 mg/dL Normal 0.0-1.2 [facility] Comment on above: Performed By: #### 2 4323-8 #### KARUNA VILLANUEVA ([id number]) [facility] ([facility]) [address] [place] [address] Calcium [Mass/Vol] 8.7 mg/dL Normal 8.6-10.3 [facility] Comment on above: Performed By: #### 2 4323-8 #### KARUNA VILLANUEVA ([id number]) [facility] ([facility]) [address] [place] [address] Chloride [Moles/Vol] 104 mmol/L Normal 98-107 [facility] Comment on above: Performed By: #### 2 4323-8 #### KARUNA VILLANUEVA ([id number]) [facility] ([facility]) [address] [place] [address] CO2 [Moles/Vol] 25 mmol/L Normal 21-32 [facility] Comment on above: Performed By: #### 2 4323-8 #### KARUNA VILLANUEVA ([id number]) [facility] ([facility]) [facility] [place] [address] Creatinine [Mass/Vol] 0.56 mg/dL Normal 0.50-1.05 [facility] Comment on above: Performed By: #### 2 4323-8 #### KARUNA VILLANUEVA ([id number]) [facility] ([facility]) [facility] [place] [address] GFR/1.73 sq M.predicted MDRD (S/P/Bld) [Vol rate/Area] mL/min/{1.73_m2} Normal >60 [facility] Comment on above: Result Comment: Calc ulations of estimated GFR are performed using the 2020 CKD-EPI Study Refit equation without the race variable for the IDMS-Traceable creatinine methods. https://jasn.asnjournals.org/content/early/ASN.32795 88666 Performed By: #### 2 4323-8 #### KARUNA VILLANUEVA ([id number]) [facility] ([facility]) [address] [place] [address] Glucose [Mass/Vol] 106 mg/dL High 74-99 [facility] Comment on above: Performed By: #### 2 4323-8 #### KARUNA VILLANUEVA ([id number]) [facility] ([facility]) [address] [place] [address] Potassium [Moles/Vol] 3.0 mmol/L Low 3.5-5.3 [facility] Comment on above: Performed By: #### 2 4323-8 #### KARUNA VILLANUEVA ([id number]) [facility] ([facility]) [address] [place] [address] Protein [Mass/Vol] 7.0 g/dL Normal 6.4-8.2 [facility] Comment on above: Performed By: #### 2 4323-8 #### KARUNA VILLANUEVA ([id number]) [facility] ([facility]) [address] [place] [address] Sodium [Moles/Vol] 139 mmol/L Normal 136-145 [facility] Comment on above: Performed By: #### 2 4323-8 #### KARUNA VILLANUEVA ([id number]) [facility] ([facility]) [address] [place] [address] Urea nitrogen [Mass/Vol] 10 mg/dL Normal 6-23 [facility] Comment on above: Performed By: #### 2 4323-8 #### KARUNA VILLANUEVA ([id number]) [facility] ([facility]) [address] [place] [address] ECG 12-LEADon 05-22-2024 ECG 12-LEAD Ventricular Rate 120 Atrial Rate 120 P-R Interval 124 QRS Duration 70 Q-T Interval 346 QTC Calculation(Bazett) 489 P [place] 78 R [place] 65 T [place] 42 QRS Count 19 Q Onset 222 P Onset 160 P Offset 205 T Offset 395 QTC Fredericia 435 Diagnosis Sinus tachycardia Nonspecific ST abnormality Abnormal ECG No previous ECGs available See ED provider note for full interpretation and clinical correlation Confirmed by Candice Maria ([id number]) on 05/23/2024 2:43:10 PM Normal [facility] Lactateon 05-22-2024 Lactate [Moles/Vol] 2.3 mmol/L High 0.4 - 2. 0 mmol/L [facility] Lactate [Moles/Vol] 2.3 mmol/L High 0.4-2.0 [facility] Comment on above: Order Comment: Venip uncture immediately after or during the administration of Metamizole may lead to falsely low results. Testing should be performed immediately prior to Metamizole dosing. Performed By: #### 2 524-7 #### BECKMAN RICH ([id number]) [facility] ([facility]) [address] [place] [address] Lactate [Moles/Vol]on 2023 Interpretation and review of laboratory results Abnormal [facility] Venipuncture immedia tely after or during the administration of Metamizole may lead to falsely low results. Testing should be performed immediately prior to Metamizole dosing. [facility] XR CHEST 2 VIEWSon XR CHEST 2 VIEWS Interpreted By: Neva Roger, STUDY: XR CHEST 2 VIEWS; 05/22/2024 10:00 pm INDICATION: Signs/Symptoms:pneumonia. COMPARISON: None. ACCESSION NUMBER(S): [id number] ORDERING CLINICIAN: MARIELA SCHULZ FINDINGS: CARDIOMEDIASTINAL SILHOUETTE: [...] Neva Perdomo 05/22/2024 10:31 PM Dictation workstation: [id number] Normal [facility] XR Chest 2 Viewson Mild increased perih ilar opacities suggestive of developing interstitial edema. Superimposed infection not excluded. Clinical correlation and continued short-term follow-up is advised. MACRO: None Signed by: Neva Perdomo 05/22/2024 10:31 PM Dictation workstation: [id number] Interpreted By: Neva Roger, STUDY: XR CHEST 2 VIEWS; 05/22/2024 10:00 pm INDICATION: Signs/Symptoms:pneumonia. COMPARISON: None. ACCESSION NUMBER(S): [id number] ORDERING CLINICIAN: MARIELA SCHULZ FINDINGS: CARDIOMEDIASTINAL SILHOUETTE: [...] pm INDICATION: Signs/Symptoms:pneumonia. COMPARISON: None. ACCESSION NUMBER(S): [id number] ORDERING CLINICIAN: MARIELA SCHULZ FINDINGS: CARDIOMEDIASTINAL SILHOUETTE: [...] Neva Perdomo 05/22/2024 10:31 PM Dictation workstation: [id number] [facility] Work Phone: Radiology Study observation (narrative) [facility] Work Phone: XR Chest 2 ViewsOrdered By: Neva Perdomo on 05-22-2024 [facility] Work Phone: COVID-19, MOLECULARon 2023 SARS-CoV-2 (COVID-19) Ab IA Ql Not detected Normal Not Detected [facility] Comment on above: Result Comment: Test ing [...] on WedMay 15, 2024 12:30:53 AM EDT [facility] Comment on above: Order Comment: Injur y/Trauma or Illness?:Illness/Other How long have you had these symptoms (acute/chronic)?:Acute Reason for exam?:cough x2 weeks, elevated d-dimer Type of Exam?:Initial Additional signs and symptoms?:none ED Prov Noteon 05-14-2024 ED Prov Note ED PROVIDER NOTE [facility] NAME: Shauna Rainey AGE: 28 y.o. : 1995 VISIT DATE: 05/14/2024 CSN: [id number] PCP: Kinjal Cleveland MD Chief Complaint Patient [...] Range S (more content not included)... Normal [facility] POC BASIC METABOLIC PANEL [facility] 05-14-2024 Chloride [Moles/Vol] 102 mmol/L Normal 98-108 [facility] Comment on above: Order Comment: [facility] has implemented the eGFR calculation approach that does not have a coefficient for race that conforms to the NKF-ASN Task Force Recommendations. CO2 [Moles/Vol] 26 mmol/L Normal 21-32 [facility] Comment on above: Order Comment: [facility] has implemented the eGFR calculation approach that does not have a coefficient for race that conforms to the NKF-ASN Task Force Recommendations. Creatinine [Mass/Vol] 0.58 mg/dL Normal 0.40-1.10 [facility] Comment on above: Order Comment: [facility] has implemented the eGFR calculation approach that does not have a coefficient for race that conforms to the NKF-ASN Task Force Recommendations. Glucose [Mass/Vol] 156 mg/dL High 65-99 [facility] Comment on above: Order Comment: [facility] has implemented the eGFR calculation approach that does not have a coefficient for race that conforms to the NKF-ASN Task Force Recommendations. POC GFR 127 mL/min/1.73 m2 Normal >=60 [facility] Comment on above: Order Comment: [facility] has implemented the eGFR calculation approach that does not have a coefficient for race that conforms to the NKF-ASN Task Force Recommendations. Result Comment: Oskar mated GFR was calculated using the 2020 CKD-EPI creatinine equation. POC IONIZED CALCIUM 4.5 mg/dL Normal 4.5-5.3 [facility] Comment on above: Order Comment: [facility] has implemented the eGFR calculation approach that does not have a coefficient for race that conforms to the NKF-ASN Task Force Recommendations. Potassium [Moles/Vol] 3.0 mmol/L Low 3.5-5.1 [facility] Comment on above: Order Comment: [facility] has implemented the eGFR calculation approach that does not have a coefficient for race that conforms to the NKF-ASN Task Force Recommendations. Sodium [Moles/Vol] 141 mmol/L Normal 135-145 [facility] Comment on above: Order Comment: [facility] has implemented the eGFR calculation approach that does not have a coefficient for race that conforms to the NKF-ASN Task Force Recommendations. Urea nitrogen [Mass/Vol] 5 mg/dL Low 8-25 [facility] Comment on above: Order Comment: [facility] has implemented the eGFR calculation approach that does not have a coefficient for race that conforms to the NKF-ASN Task Force Recommendations. POC CBC AND DIFFERENTIALon 1 BASOPHILS ABSOLUTE COUNT 0.01 K/mcL Normal 0.00-0.30 [facility] Basophils/100 WBC (Bld) 0.1 % Normal [facility] Eosinophils (Bld) [#/Vol] 0.21 10*3/uL Normal 0.00-0.50 [facility] Eosinophils/100 WBC (Bld) 3.0 % Normal [facility] Erythrocyte distribution width (RBC) [Ratio] 13.5 % Normal 11.6-14.8 [facility] Hematocrit (Bld) [Volume fraction] 39.0 % Normal 36.0-46.0 [facility] Hemoglobin (Bld) [Mass/Vol] 13.0 g/dL Normal 12.0-16.0 [facility] IG ABSOLUTE 0.01 K/mcL Normal 0.00-0.30 [facility] IG PERCENT 0.10 % Normal [facility] Comment on above: Result Comment: The IG parameter is the percentage of metamyelocytes, myelocytes and promyelocytes. An immature granulocyte count (IG) of 1% or more suggests the possibility of infection, an IG count of 3% is very likely related to an infection. Lymphocytes (Bld) [#/Vol] 1.12 10*3/uL Normal 0.90-4.00 [facility] Lymphocytes/100 WBC (Bld) 15.8 % Normal [facility] MCH (RBC) [Entitic mass] 28.8 pg Normal 26.0-34.0 [facility] MCV (RBC) [Entitic vol] 86.3 fL Normal 80.0-100.0 [facility] MEAN CORPUSCULAR HEMOGLOBIN CONC 33.3 g/dL Normal 31.0-37.0 [facility] Monocytes (Bld) [#/Vol] 0.29 10*3/uL Low 0.30-0.90 [facility] Monocytes/100 WBC (Bld) 4.1 % Normal [facility] NEUTROPHILS ABSOLUTE COUNT 5.43 K/mcL Normal 1.70-7.00 [facility] Neutrophils/100 WBC (Bld) 76.9 % Normal [facility] Platelet mean volume (Bld) [Entitic vol] 9.1 fL Low 9.4-12.4 [facility] Platelets (Bld) [#/Vol] 283 10*3/uL Normal 150-400 [facility] RBC (Bld) [#/Vol] 4.52 10*6/uL Normal 4.00-5.20 [facility] WBC (Bld) [#/Vol] 7.07 10*3/uL Normal 4.50-11.00 [facility] POC D-DIMER Jerardo 4 POC D-DIMER 1230 ng/mL DDU High <350 [facility] Comment on above: Order Comment: A D-D [...] than 400 ng/ml. POC INFLUENZA A/B - [facility] 1 POC INFLUENZA A (FSED) Not detected Normal Not Detected [facility] POC INFLUENZA B (FSED) Not detected Normal Not Detected [facility] POC TROPONIN I [facility] 2023 POC TROPONIN I < Normal <0.05 [facility] XR CHEST PA/APon 05-14-2024 XR CHEST PA/AP [...] Mild bronchial wall thickening is noted centrally. Sirf-fd-mphlrtpi haziness is noted bilaterally suggestive of moderate pneumonitis. IMPRESSION: 1. Moderate haziness bilaterally suggestive of pneumonitis. 2. Xess-xp-jngertem bilateral perihilar bronchitis. Workstation ID: [id number] Dictated by: RINA MURDOCK on [place] May 14, 2024 11:02:28 PM EDT Transcribed by: RINA MURDOCK on [place] May 14, 2024 11:02:28 PM EDT Finalized by: RINA MURDOCK on [place] May 14, 2024 11:02:28 PM EDT Normal [facility] Comment on above: Order Comment: Injur y/Trauma [...] CNP Authorized by: Era Giordano CNP CPT 43070 - Large Joint Arthrocentesis: Consent given by: [...] the procedure well with no immediate complications [facility] CULTURE URINEon 01-18-2021 CULTURE URINE CULTURE URINE --> St atus: F Normal urogenital jennie present. Normal [facility] Comment on above: Performed By: #### C /UR #### [address] [address] Hemoglobinon 01-18-2021 Hemoglobin (Bld) [Mass/Vol] 7.4 g/dL Low 11.7-16.0 [facility] Comment on above: Performed By: #### H EMGB #### [address] [address] HemoglobinOrdered By: Drea Senior on 01-18-2021 Hemoglobin.gastrointes tinal spec 1 Ql (Stl) 7.4 g/dL Low 11.7 - 16.0 g/dL [facility] Work Phone: Interpretation and review of laboratory results Abnormal [facility] Work Phone: Test Performed by [address] [address] [facility] Work Phone: [facility] Work Phone: CR Abdomen APon 01-17-2021 CR Abdomen AP Patient Name: SHAUNA RAINEY Diagnostic Radiology ACCESSION EXAM DATE/TIME PROCEDURE ORDERING PROVIDER [id number] 01/17/2021 02:10 EDT CR Abdomen AP [id number] -SURI ESTRADA CPT code 39240 Reason For Exam (CR Abdomen AP) s/p [...] bowel gas pattern. Report Dictated on Workstation: [email or web address] Final Dictated: 01/17/2021 2:09 am Dictating Physician: MD LEAL JONATHAN R Signed Date and Time: 01/17/2021 2:10 am Signed by: MD LEAL JONATHAN R Transcribed Date and Time: 01/17/2021 2:09 Normal [facility] Comp Metabolic Panelon 01-17 ALP [Catalytic activity/Vol] 128 U/L High 38-126 [facility] Comment on above: Performed By: #### C MP3, HEMOG #### [address] [address] [place], [place] ALT [Catalytic activity/Vol] 11 U/L Normal 0-34 [facility] Comment on above: Result Comment: The ALT test is performed by an updated assay method. Please note that the reference intervals have been changed and are now sex specific. Performed By: #### C MP3, HEMOG #### [facility] [address] [place] [address] Calcium [Mass/Vol] 9.5 mg/dL Normal 8.4-10.4 [facility] Comment on above: Performed By: #### C MP3, HEMOG #### [facility] [address] [place] [address] Glucose [Mass/Vol] 75 mg/dL Normal 70-100 [facility] Comment on above: Performed By: #### C MP3, HEMOG #### [facility] [address] [place], [place] Protein [Mass/Vol] 6.7 g/dL Normal 6.3-8.2 [facility] Comment on above: Performed By: #### C MP3, HEMOG #### [facility] [address] [place], [place] Urea nitrogen [Mass/Vol] 10 mg/dL Normal 7-20 [facility] Comment on above: Performed By: #### C MP3, HEMOG #### [facility] [address] [place], [place] Anion gap [Moles/Vol] 5 mmol/L Normal 3-13 [facility] Comment on above: Performed By: #### C MP3, HEMOG #### [facility] [address] [place], [place] AST [Catalytic activity/Vol] 26 U/L Normal 15-46 [facility] Comment on above: Performed By: #### C MP3, HEMOG #### [facility] [address] [place], [place] Bilirubin [Mass/Vol] 0.5 mg/dL Normal 0.2-1.3 [facility] Comment on above: Performed By: #### C MP3, HEMOG #### [facility] [address] [place], [place] CO2 [Moles/Vol] 20 mmol/L Low 22-30 [facility] Comment on above: Performed By: #### C MP3, HEMOG #### [facility] [address] [place], [place] Creatinine [Mass/Vol] 0.40 mg/dL Low 0.52-1.25 [facility] Comment on above: Performed By: #### C MP3, HEMOG #### [facility] [address] [place], [place] eGFR OTHER > 90.0 Normal >60 [facility] Comment on above: Result Comment: KDIG [...] Performed By: #### C MP3, HEMOG #### [address] GFR/1.73 sq M.predicted among blacks MDRD (S/P/Bld) [Vol rate/Area] mL/min/{1.73_m2} Normal >60 [facility] Comment on above: Performed By: #### C MP3, HEMOG #### [address] Chloride [Moles/Vol] 107 mmol/L Normal 98-107 [facility] Comment on above: Performed By: #### C MP3, HEMOG #### [address] Potassium [Moles/Vol] 3.5 mmol/L Normal 3.5-5.1 [facility] Comment on above: Performed By: #### C MP3, HEMOG #### [address] Sodium [Moles/Vol] 133 mmol/L Low 135-145 [facility] Comment on above: Performed By: #### C MP3, HEMOG #### [address] Albumin [Mass/Vol] 3.5 g/dL Normal 3.5-5.0 [facility] Comment on above: Performed By: #### C MP3, HEMOG #### [address] Culture, UrineOrdered By: Leslie Estrada on 01-17-2021 Bacteria identified Cx Nom (U) Normal urogenital jennie present. [facility] Work Phone: Test Performed by [facility], [address] [place] [address] [facility] Work Phone: [facility] Work Phone: Hemogramon 01-17-2021 Erythrocyte distribution width (RBC) [Ratio] 15.6 % High 11.5-14.5 [facility] Comment on above: Performed By: #### C MP3, HEMOG #### [address] [address] [place], [place] Hematocrit (Bld) [Volume fraction] 32.6 % Low 35.0-47.0 [facility] Comment on above: Performed By: #### C MP3, HEMOG #### [address] [address] [place], [place] Hemoglobin (Bld) [Mass/Vol] 10.9 g/dL Low 11.7-16.0 [facility] Comment on above: Performed By: #### C MP3, HEMOG #### [address] MCH (RBC) [Entitic mass] 26.7 pg Normal 26.0-34.0 [facility] Comment on above: Performed By: #### C MP3, HEMOG #### [address] [address] [place], [place] MCHC 33.4 % Normal 32.0-36.0 [facility] Comment on above: Performed By: #### C MP3, HEMOG #### [address] MCV (RBC) [Entitic vol] 79.9 fL Normal 79.0-98.0 [facility] Comment on above: Performed By: #### C MP3, HEMOG #### [address] Platelet mean volume (Bld) [Entitic vol] 9.7 fL Normal 7.4-10.4 [facility] Comment on above: Performed By: #### C MP3, HEMOG #### [facility] [address] [place] [address] Platelets (Bld) [#/Vol] 152 10*3/uL Normal 140-440 [facility] Comment on above: Performed By: #### C MP3, HEMOG #### [facility] [address] [place], [place] RBC (Bld) [#/Vol] 4.08 10*6/uL Normal 3.80-5.20 [facility] Comment on above: Performed By: #### C MP3, HEMOG #### [facility] [address] [place], [place] WBC (Bld) [#/Vol] 8.1 10*3/uL Normal 3.6-10.7 [facility] Comment on above: Performed By: #### C MP3, HEMOG #### [address] [address] [place], [place] TS GELon 01-17-2021 TS GEL ABO Group: A Rh, Gel: POS Antibody Screen Gel: NEG Normal [facility] Comment on above: Performed By: #### T SGL #### [facility] XR ABDOMEN (KUB) (SINGLE AP VIEW)Ordered By: Suri Estrada on 01-17-2021 Patient Name: SHAUNA RAINEY Diagnostic Radiology ACCESSION EXAM DATE/TIME PROCEDURE ORDERING PROVIDER [id number] 01/17/2021 02:10 EDT CR Abdomen AP [id number] -SURI ESTRADA CPT code 66541 Reason For Exam (CR Abdomen AP) s/p [...] bowel gas pattern. Report Dictated on Workstation: [place] --- Final --- Dictated: 01/17/2021 2:09 am Dictating Physician: MD LEAL JONATHAN R Signed Date and Time: 01/17/2021 2:10 am Signed by: MD LEAL JONATHAN R Transcribed Date and Time: 01/17/2021 2:09 [facility] Work Phone: [place], [facility] Incoming Radiology Results From [facility] - 01/17/2021 2:11 AM EDT Patient Name: SHAUNA RAINEY Diagnostic Radiology ACCESSION EXAM DATE/TIME PROCEDURE ORDERING PROVIDER [id number] 01/17/2021 02:10 EDT CR Abdomen AP [id number] -SURI ESTRADA CPT code 53425 Reason For Exam (CR Abdomen AP) s/p [...] bowel gas pattern. Report Dictated on Workstation: [place] --- Final --- Dictated: 01/17/2021 2:09 am [...] 10.9 g/dL Low 11.7 - 16.0 g/dL [facility] Work Phone: ) Interpretation and review of laboratory results Abnormal [facility] Work Phone: MCH (RBC) [Entitic mass] 26.7 pg 26.0 - 34.0 pg [facility] Work Phone: MCHC (RBC) [Mass/Vol] 33.4 % 32.0 - 36.0 % [facility] Work Phone: MCV (RBC) [Entitic vol] 79.9 fL 79.0 - 98.0 fL [facility] Work Phone: Platelet distribution width (Bld) [Ratio] 15.6 % High 11.5 - 14.5 % [facility] Work Phone: Platelet mean volume (Bld) [Entitic vol] 9.7 fL 7.4 - 10.4 fL [facility] Work Phone: 222 Platelets (Bld) [#/Vol] 152 10*3/uL 140 - 440 10*3/uL [facility] Work Phone: RBC (Bld) [#/Vol] 4.08 10*6/uL 3.80 - 5.2 0 10*6/uL [facility] Work Phone: 222 WBC (Bld) [#/Vol] 8.1 10*3/uL 3.6 - 10.7 10*3/uL [facility] Work Phone: Test Performed by [facility], [address] [place] [address] [facility] Work Phone: [facility] Work Phone: Comprehensive Metabolic Pane lOrdered By: Suri Estrada on 01-16-2021 Albumin [Mass/Vol] 3.5 g/dL 3.5 - 5.0 g/dL [facility] Work Phone: 222 ALP (Bld) [Catalytic activity/Vol] 128 U/L High 38 - 126 U/L [facility] Work Phone: [phone] ALT [Catalytic activity/Vol] 11 U/L 0 - 34 U/L [facility] Work Phone: [phone] Comment on above: The ALT test is perf ormed by an updated assay method. Please note that the reference intervals have been changed and are now sex specific. Anion gap [Moles/Vol] 5 mmol/L 3 - 13 mmol/L [facility] Work Phone: [phone] AST [Catalytic activity/Vol] 26 U/L 15 - 46 U/L [facility] Work Phone: [phone] Bilirubin [Mass/Vol] 0.5 mg/dL 0.2 - 1 .3 mg/dL [facility] Work Phone: [phone] Calcium [Mass/Vol] 9.5 mg/dL 8.4 - 10. 4 mg/dL [facility] Work Phone: [phone] Chloride [Moles/Vol] 107 mmol/L 98 - 10 7 mmol/L [facility] Work Phone: [phone] CO2 [Moles/Vol] 20 mmol/L Low 22 - 30 mmol/L [facility] Work Phone: [phone] Creatinine [Mass/Vol] 0.4 mg/dL Low 0.52 - 1.25 mg/dL [facility] Work Phone: [phone] EGFR IF NonAfrican Surinamese >90.0 >60 mL/min [facility] Work Phone: [phone] Comment on above: [...] [facility] Work Phone: ) Test Performed by K Sp[facility], [facility] [employer] [place] [address] [facility] Work Phone: [facility] Work Phone: TYPE AND SCREENOrdered By: Vik Estrada on 01-16-2021 ABO Grouping A [facility] Work Phone: Rh Type Positive [facility] Work Phone: Test Performed by [facility], [facility] [address] [place] [address] [facility] Work Phone: ) [facility] Work Phone: 1 POC Basic Metabolic Panelon 10-27-2020 Calcium.ionized (Bld) [Mass/Vol] 4.3 mg/dL Low 4.5 - 5.3 mg/dL [facility] Chloride [Moles/Vol] 106 mmol/L 98 - 10 8 mmol/L [facility] CO2 [Moles/Vol] 20 mmol/L Low 21 - 32 mmol/L [facility] Creatinine [Mass/Vol] 0.37 mg/dL Low 0.40 - 1.10 [facility] GFR/1.73 sq M.predicted MDRD (S/P/Bld) [Vol rate/Area] 151 mL/min/{1.73_m2} >=60 mL/min/1.73 m2 [facility] Glucose [Mass/Vol] 109 mg/dL High 65 - 99 mg/dL [facility] Interpretation and review of laboratory results Abnormal [facility] Potassium [Moles/Vol] 3.7 mmol/L 3.5 - 5.1 mmol/L [facility] Sodium [Moles/Vol] 137 mmol/L 135 - 145 mmol/L [facility] Urea nitrogen [Mass/Vol] 9 mg/dL 8 - 25 mg/dL [facility] POC CBC and Differentialon 0 - Basophils (Bld) [#/Vol] 0.02 10*3/uL [facility] Basophils/100 WBC (Bld) 0.2 % [facility] Eosinophils (Bld) [#/Vol] 0.08 10*3/uL [facility] Eosinophils/100 WBC (Bld) 0.8 % [facility] Erythrocyte distribution width (RBC) [Entitic vol] 14.7 % 11.6 - 14.8 % [facility] Hematocrit (Bld) [Volume fraction] 40.1 % 36.0 - 46.0 % [facility] Hemoglobin (Bld) [Mass/Vol] 13.2 g/dL 12.0 - 16.0 g/dL [facility] Immature granulocytes (Bld) [#/Vol] 0.04 10*3/uL [facility] Immature granulocytes/100 WBC (Bld) 0.40 % [facility] Comment on above: The IG parameter is the percentage of metamyelocytes, myelocytes and promyelocytes. An immature granulocyte count (IG) of 1% or more suggests the possibility of infection, an IG count of 3% is very likely related to an infection. Interpretation and review of laboratory results Abnormal [facility] Lymphocytes (Bld) [#/Vol] 0.81 10*3/uL Low [facility] Lymphocytes/100 WBC (Bld) 7.6 % [facility] MCH (RBC) [Entitic mass] 29.7 pg 26.0 - 34.0 pg [facility] MCHC (RBC) [Mass/Vol] 32.9 g/dL 31.0 - 37.0 g/dL [facility] MCV (RBC) [Entitic vol] 90.1 fL 80.0 - 100.0 fL [facility] Monocytes (Bld) [#/Vol] 0.43 10*3/uL [facility] Monocytes/100 WBC (Bld) 4.1 % [facility] Neutrophils (Bld) [#/Vol] 9.23 10*3/uL High [facility] Neutrophils/100 WBC (Bld) 86.9 % [facility] Platelet mean volume (Bld) [Entitic vol] 9.5 fL 9.4 - 12.4 fL [facility] Platelets (Bld) [#/Vol] 197 10*3/uL [facility] RBC (Bld) [#/Vol] 4.45 10*6/uL [facility] WBC (Bld) [#/Vol] 10.61 10*3/uL [facility] POC Liver Panel Pluson 10-27 Albumin [Mass/Vol] 3.1 g/dL Low 3.2 - 5.2 g/dL [facility] ALP [Catalytic activity/Vol] 57 U/L 40 - 140 U/L [facility] ALT [Catalytic activity/Vol] 16 U/L 0 - 40 U/L [facility] Amylase [Catalytic activity/Vol] 46 U/L 25 - 115 U/L [facility] AST [Catalytic activity/Vol] 21 U/L 0 - 45 U/L [facility] Bilirubin [Mass/Vol] 0.5 mg/dL 0.0 - 1 .3 mg/dL [facility] Gamma glutamyl transferase [Catalytic activity/Vol] 6 U/L Low 7 - 33 U/L [facility] Interpretation and review of laboratory results Abnormal [facility] Protein [Mass/Vol] 6.9 g/dL 6.0 - 8.0 g/dL [facility] C. Trachomatis, External Res ultOrdered By: [...] Non-Reactive [facility] Work Phone: Hepatitis C Antibody, Mathematics Education Professor al ResultOrdered By: Historical Provider on 07-22-2020 [...] Titer, External Result Reactive [facility] Work Phone: ORE DRYER - Office Visiton 11-0 [facility] - Office Visit Chief Complaint Patient is [...] Dispense: 7 Days ; #:14; Refill: 0; SAHNNA = N; Record; Last Updated By: Criselda Greco; 05/15/2019 3:05:35 PM Vitals Vital Signs Recorded: 09Jun2019 10:10AM Qekxhfji009 Sxeoigghh14 Height4 ft 11 in Yermsw95.7 kg BMI Lidozpbqgl94.36 BSA Calculated1.59 LMPBreastfeeding Physical Exam PHYSICAL EXAMINATION: [...] oral contraceptives; SHANNA = N; [facility] Provider Impressions checkup She will be started on Micronor for contraception. Follow up in November for her annual exam. Signatures Electronically signed by : Brigid Marquez MD; Jun 09 2019 10:23AM EST (Author) Normal [employer]works ORE DRYER - Office Visiton ORE DRYER - Office Visit Chief Complaint Patient is [...] PM Vitals Vital Signs Recorded: 15May2019 02:52PM Xzyosdtf213 Ewdtpdhlh10 Klkctx038 cm Jeuvrl23.2 kg BMI Wgaaecomta48.65 BSA Calculated1.63 Physical Exam Constitutional: Alert and in no acute distress. Well developed, well nourished. Head and Face: Head and face: Normal. Eyes: Normal external exam - nonicteric sclera, extraocular movements intact (EOMI) and no ptosis. Abdomen: Soft nontender; no abdominal mass palpated. Noted well-healed low Pfannenstiel scar. [place] were removed and Steri-Strips were applied. Psychiatric: [...] [Ratio] 16.8 % High 11.5 - 14.5 [facility] Comment on above: Performed By: #### C BC #### [address] [address] Hematocrit (Bld) [Volume fraction] 29.7 % Low 36.0 - 46.0 [facility] Comment on above: Performed By: #### C BC #### [address] [address] Hemoglobin (Bld) [Mass/Vol] 9.5 g/dL Low 12.0 - 16.0 [facility] Comment on above: Performed By: #### C BC #### [address] [address] MCHC (RBC) [Mass/Vol] 32.0 g/dL Normal 32.0 - 36.0 [facility] Comment on above: Performed By: #### C BC #### [address] [address] MCV (RBC) [Entitic vol] 82 fL Normal 80 - 100 [facility] Comment on above: Performed By: #### C BC #### [address] [address] Platelets (Bld) [#/Vol] 121 10*3/uL Low 150 - 450 [facility] Comment on above: Performed By: #### C BC #### [address] [address] RBC (Bld) [#/Vol] 3.63 x10E12/L Low 4.00 - 5.20 [facility] Comment on above: Performed By: #### C BC #### [address] [address] WBC (Bld) [#/Vol] 7.4 10*3/uL Normal 4.4 - 11.3 [facility] Comment on above: Performed By: #### C BC #### [address] [address] Daily Progress Note - OB-Pos t-partumon 05-13-2019 Daily Progress Note - HF-Ievx-wvknes Current Stage: Stage: Post- Subjective Data: Post : Ambulate: Yes Flatus: Yes Tolerate Diet: Yes Lochia: Light Objective Information: Objective Information: T PRBPSpO2 Value36.0606880/5498% Date/Time05/13 4:0010/5 4:001/5 4:00105 4:0010/5 4:00 Range(36.6C [...] Last Updated: 13-May-2019 06:25 by Brigid Marquez) [facility] Discharge Cutxxnm8ch 019 Discharge Profile2 Discharge Orders: Anticipated Discharge Date: Anticipated Discharge [id number] Anticipated Discharge Time06:58 Problem List: Admitting Dx: [...] Call to Schedule in2-3 days Locationoffice Phone [phone] CommentsCall for appointment for May 15 for staple removal Electronic Signatures: Brigid Marquez) (Signed 13-May-2019 07:08) Authored: Discharge Orders, Provider FINAL REVIEW of Orders, Appointments, Gold Form - Insulating Machine Operator Summary Last Updated: 13-May-2019 07:08 by Brigid Marquez) [facility] TYPE + SCREENon 05-13-2019 ABO TYPE A [facility] Comment on above: Performed By: #### T +S #### [place] [address] RH TYPE Positive Normal [facility] Comment on above: Performed By: #### T +S #### [place] [id number] Hematocriton 05-12-2019 Hematocrit (Bld) [Volume fraction] 29.4 % Low 36.0-48.0 [facility] Comment on above: Performed By: #### 6 [id number] #### ALEX Chemistry Manual Subsection [address] [place] [address] Hemoglobinon 05-12-2019 Hemoglobin (Bld) [Mass/Vol] 9.4 g/dL Low 12.0-16.0 [facility] Comment on above: Performed By: #### 2 [id number] #### [facility]LEX Datalink [address] [place] [address] Placenta Pathology Request - NO EXAMon 05-12-2019 Placenta Pathology Request - NO EXAM Collected Normal [facility] Comment on above: Performed By: #### 6 [id number] #### ALEX Chemistry Manual Subsection [address] [place] [address] RPRon 05-12-2019 Reagin Ab RPR Ql (S) Non-Reactive Normal Non-Lety ctiv e [facility] Comment on above: Performed By: #### 6 [id number] #### ALEX Chemistry Manual Subsection [address] [place] [address] ABO/Rh Echoon 05-09-2019 ABO/Rh E Interp... Positive [facility] Comment on above: Performed By: #### 2 [id number] #### [employer]LEX Datalink [address] [place] [address] Antibody Screen Cap...on Screen Interp... Negative [facility] Comment on above: Performed By: #### 2 [id number] #### [employer] Datalink [address] [place] [address] Auto Diffon 05-09-2019 Basophils (Bld) [#/Vol] 0.1 E3/mcL Normal 0.0-0.2 [facility] Comment on above: Order Comment: Order Added by Discern Expert. Performed By: #### 2 [id number] #### [employer]LEX Datalink [address] [place] [address] Basophils/100 WBC (Bld) 0.8 % Normal 0.0-2.0 [facility] Comment on above: Order Comment: Order Added by Discern Expert. Performed By: #### 2 [id number] #### [employer] [address] [place] [address] Eos Absolute 0.1 E3/mcL Normal 0.0-0.7 [facility] Comment on above: Order Comment: Order Added by Discern Expert. Performed By: #### 2 [id number] #### [employer] [address] [place] [address] Eosinophils/100 WBC (Bld) 1.5 % Normal 0.0-11.0 [facility] Comment on above: Order Comment: Order Added by Discern Expert. Performed By: #### 2 [id number] #### [employer]ink [address] [place] [address] Lymphocytes (Bld) [#/Vol] 2.2 E3/mcL Normal 1.2-3.4 [facility] Comment on above: Order Comment: Order Added by Discern Expert. Performed By: #### 2 [id number] #### [employer] [address] [place] [address] Lymphocytes/100 WBC (Bld) 33.5 % Normal 20.0-55.0 [facility] Comment on above: Order Comment: Order Added by Discern Expert. Performed By: #### 2 [id number] #### [employer] [address] [place] [address] Bosque Absolute 0.5 E3/mcL Normal 0.0-0.7 [facility] Comment on above: Order Comment: Order Added by Discern Expert. Performed By: #### 2 [id number] #### [employer] [address] [place] [address] Monocytes/100 WBC (Bld) 8.2 % Normal 0.0-10.0 [facility] Comment on above: Order Comment: Order Added by Discern Expert. Performed By: #### 2 [id number] #### [employer]LEX D[employer]ink [address] [place] [address], [place] [address] Neutro Absolute 3.6 E3/mcL Normal 1.4-6.5 [facility] Comment on above: Order Comment: Order Added by Discern Expert. Performed By: #### 2 [id number] #### [employer] [address] [place] [address] Neutro Auto 56.0 % Normal 37.0-75.0 [facility] Comment on above: Order Comment: Order Added by Discern Expert. Performed By: #### 2 [id number] #### [employer] [address] [place] [address] CBC w/ Auto Diffon 9 Erythrocyte distribution width (RBC) [Ratio] 16.5 % High 11.5-14.5 [facility] Comment on above: Performed By: #### 2 [id number] #### [employer] [address] [place] [address] Hematocrit (Bld) [Volume fraction] 35.5 % Low 36.0-48.0 [facility] Comment on above: Performed By: #### 2 [id number] #### [employer] [address] [place] [address] Hemoglobin (Bld) [Mass/Vol] 11.5 g/dL Low 12.0-16.0 [facility] Comment on above: Performed By: #### 2 [id number] #### [employer] [address] [place] [address] MCH (RBC) [Entitic mass] 25.9 pg Low 27.0-31.0 [facility] Comment on above: Performed By: #### 2 [id number] #### [employer] [address] [place] [address] MCHC (RBC) [Mass/Vol] 32.3 g/dL Low 33.0-37.0 [facility] Comment on above: Performed By: #### 2 [id number] #### [employer] [address] [place] [address] MCV (RBC) [Entitic vol] 80.2 fL Normal 78.0-100.0 [facility] Comment on above: Performed By: #### 2 [id number] #### [employer] [address] [place] [address] Platelet mean volume (Bld) [Entitic vol] 8.7 fL Normal 7.4-11.0 [facility] Comment on above: Performed By: #### 2 [id number] #### [employer] [address] [place] [address] Platelets (Bld) [#/Vol] 146 E3/mcL Normal 130-400 [facility] Comment on above: Performed By: #### 2 [id number] #### [employer] [address] [place] [address] RBC (Bld) [#/Vol] 4.43 E6/mcL Normal 3.90-5.40 [facility] Comment on above: Performed By: #### 2 [id number] #### ALEX [address] [address] WBC (Bld) [#/Vol] 6.5 E3/mcL Normal 3.6-11.0 [facility] Comment on above: Performed By: #### 2 [id number] #### [facility] [address] [address] Group B Strep PCRon 04-21-20 19 Group B Strep PCR Negative Normal [facility] Comment on above: Order Comment: For p ositive results only; Penicillin is the recommended antibiotic for the treatment of Group B Streptococcal disease. In case of penicillin allergy, Clindamycin may be used.All Negative GBS Screens by PCR will be confirmed by culture. Performed By: #### 2 [id number] #### [employer]LEX [employer] [address] Auto Diffon 02-06-2019 Basophils (Bld) [#/Vol] 0.0 E3/mcL Normal 0.0-0.2 [facility] Comment on above: Order Comment: Order Added by Discern Expert. Performed By: #### 2 [id number] #### [employer]LEX [employer] [address] Basophils/100 WBC (Bld) 0.5 % Normal 0.0-2.0 [facility] Comment on above: Order Comment: Order Added by Discern Expert. Performed By: #### 2 [id number] #### [employer] [address] [place] [address] Eos Absolute 0.1 E3/mcL Normal 0.0-0.7 [facility] Comment on above: Order Comment: Order Added by Discern Expert. Performed By: #### 2 [id number] #### [employer] [address] [place] [address] Eosinophils/100 WBC (Bld) 1.5 % Normal 0.0-11.0 [facility] Comment on above: Order Comment: Order Added by Discern Expert. Performed By: #### 2 [id number] #### [employer] [address] [place] [address] Lymphocytes (Bld) [#/Vol] 2.1 E3/mcL Normal 1.2-3.4 [facility] Comment on above: Order Comment: Order Added by Discern Expert. Performed By: #### 2 [id number] #### [employer] [address] [place] [address] Lymphocytes/100 WBC (Bld) 21.7 % Normal 20.0-55.0 [facility] Comment on above: Order Comment: Order Added by Discern Expert. Performed By: #### 2 [id number] #### [employer] [address] [place] [address] Bosque Absolute 0.6 E3/mcL Normal 0.0-0.7 [facility] Comment on above: Order Comment: Order Added by Discern Expert. Performed By: #### 2 [id number] #### [employer] [address] [place] [address] Monocytes/100 WBC (Bld) 6.8 % Normal 0.0-10.0 [facility] Comment on above: Order Comment: Order Added by Discern Expert. Performed By: #### 2 [id number] #### [employer] [address] [place] [address] Neutro Absolute 6.6 E3/mcL High 1.4-6.5 [facility] Comment on above: Order Comment: Order Added by Discern Expert. Performed By: #### 2 [id number] #### [employer] [address] [place] [address] Neutro Auto 69.5 % Normal 37.0-75.0 [facility] Comment on above: Order Comment: Order Added by Discern Expert. Performed By: #### 2 [id number] #### [employer] [address] [place], [place] [address] CBC w/ Auto Diffon 9 Erythrocyte distribution width (RBC) [Ratio] 14.4 % Normal 11.5-14.5 [facility] Comment on above: Performed By: #### 2 [id number] #### [facility] [employer] [address] [place], [place] [address] Hematocrit (Bld) [Volume fraction] 33.9 % Low 36.0-48.0 [facility] Comment on above: Performed By: #### 2 [id number] #### [facility] [employer] [address] [place], [place] [address] Hemoglobin (Bld) [Mass/Vol] 11.3 g/dL Low 12.0-16.0 [facility] Comment on above: Performed By: #### 2 [id number] #### [facility] [employer] [address] [place], [place] [address] MCH (RBC) [Entitic mass] 29.7 pg Normal 27.0-31.0 [facility] Comment on above: Performed By: #### 2 [id number] #### [facility] [employer] [address] [place], [place] [address] MCHC (RBC) [Mass/Vol] 33.2 g/dL Normal 33.0-37.0 [facility] Comment on above: Performed By: #### 2 [id number] #### [employer] [employer] [address] [place] [address] MCV (RBC) [Entitic vol] 89.5 fL Normal 78.0-100.0 [facility] Comment on above: Performed By: #### 2 [id number] #### [employer] [address] [place] [address] Platelet mean volume (Bld) [Entitic vol] 7.7 fL Normal 7.4-11.0 [facility] Comment on above: Performed By: #### 2 [id number] #### [facility] [employer]ink [address] [place] [address] Platelets (Bld) [#/Vol] 190 E3/mcL Normal 130-400 [facility] Comment on above: Performed By: #### 2 [id number] #### [facility]LEX Datalink [facility] [place] [address] RBC (Bld) [#/Vol] 3.79 E6/mcL Low 3.90-5.40 [facility] Comment on above: Performed By: #### 2 [id number] #### [facility] [employer] [facility] [place] [address] WBC (Bld) [#/Vol] 9.5 E3/mcL Normal 3.6-11.0 [facility] Comment on above: Performed By: #### 2 [id number] #### [facility] [employer] [facility] [place] [address] Gest Scr Glu 1 Hron 02-07-20 19 Glucose [Mass/Vol] 112 mg/dL Normal 70-140 [facility] Comment on above: Performed By: #### 2 [id number] #### [employer] [employer] [address] [place] [address] URINALYSISon 01-04-2019 Bacteria Auto Ql (U) Rare Abnormal None Se en /hpf [facility] Bilirubin Ql (U) Negative Negative [facility] th Clarity Refractometry automated Nom (U) Hazy Abnormal Clear [facility] Color Nom (U) Yellow Colorless, Yellow [facility] Epithelial cells.squamous Auto #/area (Urine sed) 2 [facility] Glucose Automated test strip mass conc (U) Negative Negative mg/dL [facility] Hemoglobin Automated test strip Ql (U) Large Abnormal Negative [facility] Interpretation and review of laboratory results Abnormal [facility] Ketones mass conc (U) >=80 Abnormal Negati ve mg/dL [facility] Leukocyte esterase Automated test strip Ql (U) Negative Negative [facility] Mucus Auto #/area (Urine sed) Rare None Seen, Rare /lpf [facility] Nitrite Automated test strip Ql (U) Negative Negative [facility] pH (U) 5.0 [pH] [facility] Protein mass conc (U) 100 Abnormal Negati ve mg/dL [facility] RBC Auto #/area (Urine sed) >180 High [facility] Specific gravity Relative Density (U) 1.028 High [facility] Urobilinogen mass conc (U) <2.0 <2.0 mg/dL [facility] WBC Auto #/area (Urine sed) <1 [facility] Microscopic examinat ion is performed on all urinalysis samples and only positive findings are reported. The test for blood on the chemical analytic portion of urinalysis may also be positive due to hemoglobinuria and myoglobinuria and if red blood cells are present they are quantified by microscopic examination. [facility] US Renal Onlyon 01-04-2019 1. Kien-nr-bfskiuzh hydronephrosis of the left kidney; however, no apparent cause is identified. If patient has a distal left ureteral calculus would be a consideration. Other etiologies, such as mass in the distal abdomen or pelvis, could result in similar process. 2. Normal-appearing right kidney. [employer] 1[employer] Workstation ID: [id number] [facility] CLINICAL HISTORY: Le ft flank pain. [...] mass, hydronephrosis, nephrolithiasis, or perinephric fluid collections. [facility] Hernán, Yovany In Fu ji Speechq [...] nephrolithiasis, or perinephric fluid collections. IMPRESSION: 1. Edcr-np-holkaxpt hydronephrosis of the left kidney; however, no apparent cause is identified. If patient has a distal left ureteral calculus would be a consideration. Other etiologies, such as mass in the distal abdomen or pelvis, could result in similar process. 2. Normal-appearing right kidney. [employer] Workstation ID: [id number] [facility] US After 1st Trime steron 12-26-2018 US After 1st Trimester Exam Date/Time: 12/26/2018 09:59 EDT Reason for Exam: DATES AND ANATOMY;Standard Anatomy Report STUDY: US After 1st Trimester 12/26/2018 9:59 am INDICATION: Standard Anatomy. COMPARISON: None. ACCESSION NUMBER(S): [id number] ORDERING CLINICIAN: Brigid Marquez TECHNIQUE: Routine ultrasound [...] am Signed by: Adithya Shaw MD Technologist: [facility] Auto Diffon 12-13-2018 Basophils (Bld) [#/Vol] 0.0 E3/mcL Normal 0.0-0.2 [facility] Comment on above: Order Comment: Order Added by Discern Expert. Performed By: #### 2 [id number] #### ALEX [address] [place] [address] Basophils/100 WBC (Bld) 0.4 % Normal 0.0-2.0 [facility] Comment on above: Order Comment: Order Added by Discern Expert. Performed By: #### 2 [id number] #### ALEX [address] [place] [address] Eos Absolute 0.1 E3/mcL Normal 0.0-0.7 [facility] Comment on above: Order Comment: Order Added by Mateus Expert. Performed By: #### 2 [id number] #### ALEX [address] [place] [address] Eosinophils/100 WBC (Bld) 1.1 % Normal 0.0-11.0 [facility] Comment on above: Order Comment: Order Added by Discern Expert. Performed By: #### 2 [id number] #### [employer]LEX [employer] [address] [place] [address] Lymphocytes (Bld) [#/Vol] 1.6 E3/mcL Normal 1.2-3.4 [facility] Comment on above: Order Comment: Order Added by Mateus Expert. Performed By: #### 2 [id number] #### ALEX [address] [place] [address] Lymphocytes/100 WBC (Bld) 19.5 % Low 20.0-55.0 [facility] Comment on above: Order Comment: Order Added by Mateus Expert. Performed By: #### 2 [id number] #### ALEX [address] [place] [address] Bosque Absolute 0.5 E3/mcL Normal 0.0-0.7 [facility] Comment on above: Order Comment: Order Added by Discern Expert. Performed By: #### 2 [id number] #### ALEX [address] [place] [address] Monocytes/100 WBC (Bld) 6.5 % Normal 0.0-10.0 [facility] Comment on above: Order Comment: Order Added by Discern Expert. Performed By: #### 2 [id number] #### ALEX [address] [place] [address] Neutro Absolute 5.9 E3/mcL Normal 1.4-6.5 [facility] Comment on above: Order Comment: Order Added by Discern Expert. Performed By: #### 2 [id number] #### ALEX [address] [place] [address] Neutro Auto 72.5 % Normal 37.0-75.0 [facility] Comment on above: Order Comment: Order Added by Discern Expert. Performed By: #### 2 [id number] #### ALEX [address] [place] [address] BMPon 12-13-2018 Anion gap [Moles/Vol] 11 mmol/L Normal 10-20 [facility] Comment on above: Performed By: #### 2 [id number] #### ALEX ZepedaHemo [address] [place] [address] Calcium [Mass/Vol] 8.7 mg/dL Normal 8.6-10.3 [facility] Comment on above: Performed By: #### 2 [id number] #### ALEX ZepedaHemo [address] [place] [address] Chloride [Moles/Vol] 105 mmol/L Normal 98-107 [facility] Comment on above: Performed By: #### 2 [id number] #### ALEX ZepedaHemo [address] [place] [address] CO2 [Moles/Vol] 24.0 mmol/L Normal 21.0-32.0 [facility] Comment on above: Performed By: #### 2 [id number] #### ALEX RemHemo [address] [place] [address] Creatinine [Mass/Vol] 0.4 mg/dL Low 0.5-1.1 [facility] Comment on above: Performed By: #### 2 801477 #### ALEX RemHemo [address] [place] [address] Glucose [Mass/Vol] 92 mg/dL Normal 70-99 [facility] Comment on above: Performed By: #### 2 904190 #### ALEX RemHemo [address] [place] [address] Potassium [Moles/Vol] 3.7 mmol/L Normal 3.5-5.3 [facility] Comment on above: Performed By: #### 2 [id number] #### ALEX RemHemo [address] [place] [address] Sodium [Moles/Vol] 136 mmol/L Normal 136-145 [facility] Comment on above: Performed By: #### 2 608276 #### ALEX RemHemo [address] [place] [address] Urea nitrogen [Mass/Vol] 9 mg/dL Normal 6-23 [facility] Comment on above: Performed By: #### 2 810976 #### ALEX RemHemo [address] [place] [address] Urea nitrogen/Creatinine [Mass ratio] 22.5 ratio Normal 5.4-30.0 [facility] Comment on above: Performed By: #### 2 926722 #### ALEX RemHemo [address] [place] [address] CBC w/ Auto Diffon 9 Erythrocyte distribution width (RBC) [Ratio] 14.4 % Normal 11.5-14.5 [facility] Comment on above: Performed By: #### 2 [id number] #### ALEX RemHemo [address] [place] [address] Hematocrit (Bld) [Volume fraction] 37.6 % Normal 36.0-48.0 [facility] Comment on above: Performed By: #### 2 671530 #### ALEX RemHemo [address] [place] [address] Hemoglobin (Bld) [Mass/Vol] 12.5 g/dL Normal 12.0-16.0 [facility] Comment on above: Performed By: #### 2 928319 #### ALEX RemHemo [address] [place] [address] MCH (RBC) [Entitic mass] 30.1 pg Normal 27.0-31.0 [facility] Comment on above: Performed By: #### 2 984302 #### ALEX RemHemo [address] [place] [address] MCHC (RBC) [Mass/Vol] 33.4 g/dL Normal 33.0-37.0 [facility] Comment on above: Performed By: #### 2 332195 #### ALEX RemHemo [address] [place] [address] MCV (RBC) [Entitic vol] 90.2 fL Normal 78.0-100.0 [facility] Comment on above: Performed By: #### 2 621582 #### ALEX RemHemo [address] [place] [address] Platelet mean volume (Bld) [Entitic vol] 8.0 fL Normal 7.4-11.0 [facility] Comment on above: Performed By: #### 2 607717 #### ALEX RemHemo [address] [place] [address] Platelets (Bld) [#/Vol] 211 E3/mcL Normal 130-400 [facility] Comment on above: Performed By: #### 2 927845 #### ALEX RemHemo [address] [place] [address] RBC (Bld) [#/Vol] 4.17 E6/mcL Normal 3.90-5.40 [facility] Comment on above: Performed By: #### 2 174962 #### ALEX RemHemo [address] [place] [address] WBC (Bld) [#/Vol] 8.2 E3/mcL Normal 3.6-11.0 [facility] Comment on above: Performed By: #### 2 181574 #### ALEX RemHemo [address] [place] [address] Hep Func Panelon 12-13-2018 Albumin [Mass/Vol] 3.7 g/dL Normal 3.4-5.0 [facility] Comment on above: Performed By: #### 2 130916 #### ALEX RemHemo [address] [place] [address] Albumin/Globulin [Mass ratio] 1.5 {ratio} Normal 1.1-1.9 [facility] Comment on above: Performed By: #### 2 527500 #### ALEX ZepedaHemo [address] [place] [address] Alk Phos 43 Int._Unit/L Normal 33-110 [facility] Comment on above: Performed By: #### 2 840197 #### ALEX ZepedaHemo [address] [place] [address] ALT [Catalytic activity/Vol] 11 Int._Unit/L Normal 7-45 [facility] Comment on above: Performed By: #### 2 205433 #### ALEX ZepedaHemo [address] [place] [address] AST [Catalytic activity/Vol] 12 Int._Unit/L Normal 9-39 [facility] Comment on above: Performed By: #### 2 203986 #### ALEX ZepedaHemo [address] [place] [address] Bili Direct 0.07 mg/dL Normal 0.00-0.30 [facility] Comment on above: Performed By: #### 2 497463 #### ALEX ZepedaHemo [address] [place] [address] Bili Indirect 0.24 mg/dL Normal [facility] Comment on above: Result Comment: No e stablished ranges available for the indirect bilirubin Performed By: #### 2 040011 #### ALEX ZepedaHemo [address] [place] [address] Bili Total 0.31 mg/dL Normal 0.00-1.20 [facility] Comment on above: Performed By: #### 2 531150 #### ALEX ZepedaHemo [address] [place] [address] Globulin (S) [Mass/Vol] 3.0 g/dL Normal 2.0-4.0 [facility] Comment on above: Performed By: #### 2 675747 #### ALEXLora ZpeedaHemo [address] [place] [address] Protein [Mass/Vol] 6.2 g/dL Low 6.4-8.2 [facility] Comment on above: Performed By: #### 2 670355 #### ALEX RemHemo [address] [place] [address] Lipase Levelon 12-13-2018 Lipase Lvl 14 Int._Unit/L Normal -82 [facility] Comment on above: Performed By: #### 2 807841 #### ALEX ZepedaHemo [address] [place] [address] UA Completeon 12-13-2018 Color (U) Yellow Normal Yellow [facility] Comment on above: Performed By: #### 2 683593 #### ALEXLora ZepedaHemo [address] [place] [address] Glucose (U) [Mass/Vol] Negative Normal Negative [facility] Comment on above: Performed By: #### 2 751178 #### ALEX KatelynHemo [address] [place] [address] Ketones Ql (U) Trace Normal [facility] Comment on above: Performed By: #### 2 007087 #### ALEX ZepedaHemo [facility] [place] [address] RBC (U) [#/Vol] /uL Abnormal 0-3 [facility] Comment on above: Performed By: #### 2 250342 #### ALEX RemHemo [address] [place] [address] UA Blood 3+ Normal Negative [facility] Comment on above: Performed By: #### 2 956809 #### ALEX ZepedaHemo [address] [place] [address] UA Clarity Cloudy Abnormal Clear [facility] Comment on above: Performed By: #### 2 057611 #### ALEX RemHemo [address] [place] [address] UA Leuk Est Negative Normal Negative [facility] Comment on above: Performed By: #### 2 359411 #### ALEX RemHemo [address] [place] [address] UA Mucous Many Abnormal Trace [facility] Comment on above: Performed By: #### 2 059336 #### ALEX RemHemo [address] [place] [address] UA Nitrite Negative Normal Negative [facility] Comment on above: Performed By: #### 2 799767 #### ALEX RemHemo [address] [place] [address] UA pH 5.0 Normal 4.6-8.0 [facility] Comment on above: Performed By: #### 2 798697 #### [facility] [address] [place] [address] UA Protein 2+ Abnormal Negative [facility] Comment on above: Performed By: #### 2 668844 #### ALEX Timmonso [address] [place], [place] [address] UA Spec Grav 1.032 High 1.003-1.030 [facility] Comment on above: Performed By: #### 2 127071 #### [facility] [address] [place], [place] [address] UA Squam Epithelial 0-5 Normal 0-5 [facility] Comment on above: Performed By: #### 2 082900 #### ALEX ZepedaHemo [address] [place] [address] UA Urobilinogen Negative Normal [facility] Comment on above: Result Comment: Due to a manufacturing issue, low positive urobilinogen results may be fasely positive. Correlate with urine bilirubin and additional clinical/laboratory findings to assess the risk of hemolytic anemia or liver disease. If clinically indicated, repeat testing with an alternate method is available by contacting the laboratory within 24 hours. Performed By: #### 2 [id number] #### ALEX Timmonso [address] [place], [place] [address] UA WBC 0-5 Normal 0-5 [facility] Comment on above: Performed By: #### 2 896337 #### ALEX [facility] [place] [address] Urobilinogen Qn (U) Negative Normal Negative [facility] Comment on above: Performed By: #### 2 290195 #### ALEX ZepedaHemo [address] [place], [place] [address] US Renalon 12-13-2018 US Renal Exam Date/Time: 12/13/2018 16:52 EDT Reason for Exam: left flank pain;Other (please specify) Report STUDY: US Renal; 12/13/2018 4:52 pm INDICATION: Other (please specify). Patient is approximately 19 weeks . COMPARISON: None. ACCESSION NUMBER(S): [id number] ORDERING CLINICIAN: Cristofer Beebe TECHNIQUE: Multiple images [...] Signed by: Víctor Moon MD Technologist: RITO [facility] eGFRon 12-13-2018 GFR/1.73 sq M predicted among non-blacks MDRD (S/P/Bld) [Vol rate/Area] mL/min/{1.73_m2} [facility] Comment on above: Order Comment: Order Added by Discern Expert. Performed By: #### 2 [id number] #### ALEX RemHemo [address] [place] [address] C Urineon 12-02-2018 C Urine Final Report: Modera te growth of Normal skin jennie isolated [facility] Comment on above: Performed By: #### 2 021634 #### ALEX RemHemo [address] [place] [address] IGP W/hpv Rfx [id number] 11-10 Diagnosis: See Ref Lab Report [facility] Comment on above: Order Comment: Order Added by Discern Expert. Performed By: #### 2 760366 #### ALEX RemHemo [address] [place] [address] RPRon 11-09-2018 Reagin Ab RPR Ql (S) Non-Reactive Normal Non-Lety ctiv e [facility] Comment on above: Performed By: #### 2 278549 #### ALEX Chemistry Manual Subsection [facility] [place] [address] C Urineon 11-04-2018 C Urine Final Report: Rare N ormal skin jennie isolated Normal [facility] Comment on above: Performed By: #### 2 851508 #### ALEX Microbiology Subsection [address] [place], [place] [address] Hep Bs Agon 11-04-2018 Hep Bs Ag Negative Normal Negative [facility] Comment on above: Result Comment: Perf ormed At: [facility] [address] [id number] Jennifer Pina PhD Ph:[phone] Performed By: #### 2 701135 #### ALEX Send Outs Subsection [address] [place] [address] ABO/Rh Echoon 11-02-2018 ABO/Rh E Interp... Positive Normal [facility] Comment on above: Performed By: #### 8 [id number] #### ALEX Blood Bank Subsection [address] [place] [address] Antibody Screen Cap...on Screen Interp... Negative Normal [facility] Comment on above: Performed By: #### 8 [id number] #### ALEX Blood Bank Subsection [address] [place] [address] Auto Diffon 11-02-2018 Basophils (Bld) [#/Vol] 0.1 E3/mcL Normal 0.0-0.2 [facility] Comment on above: Order Comment: Order Added by Discern Expert. Performed By: #### 2 371249 #### ALEX RemHemo [address] [place] [address] Basophils/100 WBC (Bld) 1.3 % Normal 0.0-2.0 [facility] Comment on above: Order Comment: Order Added by Discern Expert. Performed By: #### 2 939229 #### ALEX RemHemo [address] [place] [address] Eos Absolute 0.2 E3/mcL Normal 0.0-0.7 [facility] Comment on above: Order Comment: Order Added by Discern Expert. Performed By: #### 2 881944 #### ALEX RemHemo [address] [place] [address] Eosinophils/100 WBC (Bld) 1.8 % Normal 0.0-11.0 [facility] Comment on above: Order Comment: Order Added by Discern Expert. Performed By: #### 2 446702 #### ALEX RemHemo [address] [place] [address] Lymphocytes (Bld) [#/Vol] 2.1 E3/mcL Normal 1.2-3.4 [facility] Comment on above: Order Comment: Order Added by Discern Expert. Performed By: #### 2 155037 #### ALEX RemHemo [address] [place] [address] Lymphocytes/100 WBC (Bld) 24.5 % Normal 20.0-55.0 [facility] Comment on above: Order Comment: Order Added by Discern Expert. Performed By: #### 2 582101 #### ALEX RemHemo [address] [place] [address] Bosque Absolute 0.3 E3/mcL Normal 0.0-0.7 [facility] Comment on above: Order Comment: Order Added by Discern Expert. Performed By: #### 2 458981 #### ALEX RemHemo [address] [place] [address] Monocytes/100 WBC (Bld) 3.7 % Normal 0.0-10.0 [facility] Comment on above: Order Comment: Order Added by Discern Expert. Performed By: #### 2 739054 #### ALEX RemHemo [address] [place] [address] Neutro Absolute 5.8 E3/mcL Normal 1.4-6.5 [facility] Comment on above: Order Comment: Order Added by Discern Expert. Performed By: #### 2 571484 #### ALEX RemHemo [address] [place] [address] Neutro Auto 68.7 % Normal 37.0-75.0 [facility] Comment on above: Order Comment: Order Added by Discern Expert. Performed By: #### 2 494812 #### ALEX RemHemo [address] [place] [address] CBC w/ Auto Diffon 9 Erythrocyte distribution width (RBC) [Ratio] 14.5 % Normal 11.5-14.5 [facility] Comment on above: Performed By: #### 2 811103 #### ALEX ZepedaHemo [address] [place] [address] Hematocrit (Bld) [Volume fraction] 40.8 % Normal 36.0-48.0 [facility] Comment on above: Performed By: #### 2 309128 #### ALEX ZepedaHemo [address] [place] [address] Hemoglobin (Bld) [Mass/Vol] 13.5 g/dL Normal 12.0-16.0 [facility] Comment on above: Performed By: #### 2 349426 #### ALEX ZepedaHemo [address] [place] [address] MCH (RBC) [Entitic mass] 29.8 pg Normal 27.0-31.0 [facility] Comment on above: Performed By: #### 2 838889 #### ALEX ZepedaHemo [address] [place] [address] MCHC (RBC) [Mass/Vol] 33.0 g/dL Normal 33.0-37.0 [facility] Comment on above: Performed By: #### 2 983368 #### ALEX ZepedaHemo [address] [place] [address] MCV (RBC) [Entitic vol] 90.1 fL Normal 78.0-100.0 [facility] Comment on above: Performed By: #### 2 922747 #### ALEX RemHemo [address] [place] [address] Platelet mean volume (Bld) [Entitic vol] 8.3 fL Normal 7.4-11.0 [facility] Comment on above: Performed By: #### 2 306090 #### ALEX RemHemo [address] [place] [address] Platelets (Bld) [#/Vol] 227 E3/mcL Normal 130-400 [facility] Comment on above: Performed By: #### 2 [id number] #### ALEX RemHemo [address] [place] [address] RBC (Bld) [#/Vol] 4.53 E6/mcL Normal 3.90-5.40 [facility] Comment on above: Performed By: #### 2 153572 #### ALEX RemHemo [address] [place] [address] WBC (Bld) [#/Vol] 8.4 E3/mcL Normal 3.6-11.0 [facility] Comment on above: Performed By: #### 2 533949 #### ALEX RemHemo [address] [place] [address] Chlamydia GC by PCRon 2018 Chlamydia by PCR. Not Detected Normal Not Detected [facility] Comment on above: Result Comment: Xper t CT/NG Assay performance has not been evaluated in patients less than 14 years of age. Performed By: #### 3 [id number] #### ALEX Misc Micro SubSection , Gonorrhoeae by PCR Not Detected Normal Not Detected [facility] Comment on above: Result Comment: Xper t CT/NG Assay performance has not been evaluated in patients less than 14 years of age. Performed By: #### 3 [id number] #### ALEX Misc Micro SubSection , HIV-1/2 Ag/Abon 11-02-2018 HIV Combo Internal Control Line Reactive Normal Reactive [facility] Comment on above: Performed By: #### 6 [id number] #### ALEX Chemistry Manual Subsection [address] [place] [address] HIV-1 & HIV-2 Antibodies Non-Reactive Normal Non-Reactiv e [facility] Comment on above: Performed By: #### 6 [id number] #### ALEX Chemistry Manual Subsection [facility] [place] [address] HIV-1 p-24 Antigen Non-Reactive Normal Non-React iv e [facility] Comment on above: Performed By: #### 6 [id number] #### ALEX Chemistry Manual Subsection [address] [place] [address] HIV-1/2 Ag/Ab Interp Negative Normal Negative [facility] Comment on above: Performed By: #### 6 [id number] #### ALEX Chemistry Manual Subsection [address] [place] [address] Rubella IgG Lvlon 11-02-2018 Rubella IgG Lvl 55.8 (POS) Normal [facility] Comment on above: Result Comment: <10I U/ml NON REACTIVE: NOT IMMUNE 10-15 IU/ml RUBELLA SPECIFIC AB PRESENT, EVALUATE FURTHER TO DETERMINE IMMUNE STATUS >15 IU/ml REACTIVE, IMMUNE Performed By: #### 2 [id number] #### ALEX [employer] [address] [place], [place] [address] Pathology ([facility])on 10-22-2017 Pathology ([facility]) FINAL GYNECOLOGIC CY TOLOGY [id number] ADEQUACYSatisfactory for Evaluation. Endocervical cells/transformation zone componentpresent.GENERAL CATEGORIZATIONEpithelial Cell AbnormalityDESCRIPTIVE DIAGNOSISLow grade squamous intraepithelial lesion consistent with HPV effect.CLINICAL HISTORYComment: LMP: BreastFeedingSPECIMEN(A) SCREENING CERVICAL/ENDOCERVICAL LIQUID-BASED PAPPerformed at [facility], [address] [place] [id number] by: MONICA VELA Seasonal Driver Signed Out by: DOLORES WEI MD Reported: 10/26/2017 Normal [facility] Comment on above: Performed By: #### G YN ####[facility] [address] [place] [address] Vital Signs Date Time Vital Sign Value Performing Clinician Facility 02-13-2025 08:40-0400 Body temperature 97.1 [degF] Ryan HYMAN Work Phone: [facility] 02-13-2025 08:40-0400 Diastolic blood pressure 50 mm[Hg] Ryan HYMAN Work Phone: [facility] 02-13-2025 08:40-0400 Heart rate 74 /min Ryan HYMAN Work Phone: [facility] 02-13-2025 08:40-0400 Respiratory rate 16 /min Ryan HYMAN Work Phone: [facility] 02-13-2025 08:40-0400 SaO2% (BldA) [Mass fraction] 100 % Ryan Perham PA Work Phone: [facility] 02-13-2025 08:40-0400 Systolic blood pressure 94 mm[Hg] Ryan Perham PA Work Phone: [facility] 02-13-2025 06:48-0400 Body height 152.4 cm Ryan Dimas PA Work Phone: [facility] 02-13-2025 06:48-0400 Body mass index (BMI) [Ratio] 31.7 kg/m2 Ryan Dimas PA Work Phone: [facility] 02-13-2025 06:48-0400 Body weight 73.8 kg Ryan Perham PA Work Phone: [facility] 02-08-2025 14:22-0400 Body weight 72.12 kg Ryan Perham PA Work Phone: [facility] 02-08-2025 14:22-0400 Diastolic blood pressure 61 mm[Hg] Ryan Perham PA Work Phone: [facility] 02-08-2025 14:22-0400 Heart rate 64 /min Ryan Perham PA Work Phone: [facility] 02-08-2025 14:22-0400 Respiratory rate 18 /min Ryan Perham PA Work Phone: [facility] 02-08-2025 14:22-0400 SaO2% (BldA) [Mass fraction] 98 % Ryan Dimas PA Work Phone: [facility] 02-08-2025 14:22-0400 Systolic blood pressure 92 mm[Hg] Ryan Dimas PA Work Phone: [facility] 01-30-2025 13:43-0400 Body height 152.4 cm Ryan Perham PA-C Work Phone: [facility] 01-30-2025 13:43-0400 Body mass index (BMI) [Ratio] 31.48 kg/m2 Ryan Perham PA-C Work Phone: [facility] 01-30-2025 13:43-0400 Body weight 73.12 kg Ryan Dimas PA-C Work Phone: [facility] 01-30-2025 13:43-0400 Diastolic blood pressure 78 mm[Hg] Ryan Dimas PA-C Work Phone: [facility] 01-30-2025 13:43-0400 Heart rate 88 /min Ryan Dimas PA-C Work Phone: [facility] 01-30-2025 13:43-0400 Systolic blood pressure 119 mm[Hg] Ryan Perham PA-C Work Phone: [facility] 01-29-2025 15:21-0400 Body height 152.4 cm Ryan Dimas PA Work Phone: [facility] 01-29-2025 15:21-0400 Body mass index (BMI) [Ratio] 31 kg/m2 Ryan Perham PA Work Phone: [facility] 01-29-2025 15:21-0400 Body temperature 98.8 [degF] Ryan Dimas PA Work Phone: [facility] 01-29-2025 15:21-0400 Body weight 72.12 kg Ryan Perham PA Work Phone: [facility] 01-29-2025 15:21-0400 Diastolic blood pressure 74 mm[Hg] Ryan Perham PA Work Phone: [facility] 01-29-2025 15:21-0400 Heart rate 67 /min Ryan Dimas PA Work Phone: [facility] 01-29-2025 15:21-0400 Respiratory rate 16 /min Ryan Dimas PA Work Phone: [facility] 01-29-2025 15:21-0400 SaO2% (BldA) [Mass fraction] 97 % Ryan Perham PA Work Phone: [facility] 01-29-2025 15:21-0400 Systolic blood pressure 106 mm[Hg] Ryan Perham PA Work Phone: [facility] 01-23-2025 09:59-0400 Body height 152.4 cm Ryan Perham PA Work Phone: [facility] 01-23-2025 09:59-0400 Body mass index (BMI) [Ratio] 31.3 kg/m2 Ryan Perham PA Work Phone: [facility] 01-23-2025 09:59-0400 Body temperature 97.5 [degF] Ryan Dimas PA Work Phone: [facility] 01-23-2025 09:59-0400 Body weight 72.74 kg Ryan Perham PA Work Phone: [facility] 01-23-2025 09:59-0400 Diastolic blood pressure 72 mm[Hg] Ryan Perham PA Work Phone: [facility] 01-23-2025 09:59-0400 Heart rate 64 /min Ryan Dimas PA Work Phone: [facility] 01-23-2025 09:59-0400 Respiratory rate 17 /min Ryan Dimas PA Work Phone: [facility] 01-23-2025 09:59-0400 SaO2% (BldA) [Mass fraction] 99 % Ryan Perham PA Work Phone: [facility] 01-23-2025 09:59-0400 Systolic blood pressure 105 mm[Hg] Ryan Perham PA Work Phone: [facility] 01-04-2025 09:41-0400 Body height 152.4 cm Ryan Perham PA-C Work Phone: [facility] 01-04-2025 09:41-0400 Body mass index (BMI) [Ratio] 30.47 kg/m2 Ryan Dimas PA-C Work Phone: [facility] 01-04-2025 09:41-0400 Body weight 70.76 kg Ryan Perham PA-C Work Phone: [facility] 01-04-2025 09:41-0400 Diastolic blood pressure 72 mm[Hg] Ryan Perham PA-C Work Phone: [facility] 01-04-2025 09:41-0400 Heart rate 79 /min Ryan Dimas PA-C Work Phone: [facility] 01-04-2025 09:41-0400 Systolic blood pressure 111 mm[Hg] Ryan Perham PA-C Work Phone: [facility] 11-15-2024 12:38-0400 Body height 152.4 cm Ryan Perham PA-C Work Phone: [facility] 11-15-2024 12:38-0400 Body mass index (BMI) [Ratio] 30.19 kg/m2 Ryan Dimas PA-C Work Phone: [facility] 11-15-2024 12:38-0400 Body weight 70.13 kg Ryan Dimas PA-C Work Phone: [facility] 11-15-2024 12:38-0400 Diastolic blood pressure 82 mm[Hg] Ryan Perham PA-C Work Phone: [facility] 11-15-2024 12:38-0400 Heart rate 90 /min Ryan Perham PA-C Work Phone: [facility] 11-15-2024 12:38-0400 SaO2% (BldA) [Mass fraction] 98 % Ryan Dimas PA-C Work Phone: [facility] 11-15-2024 12:38-0400 Systolic blood pressure 117 mm[Hg] Ryan Perham PA-C Work Phone: [facility] 05-23-2024 11:45-0400 Diastolic blood pressure 69 mm[Hg] Mariela Schulz DO Work Phone: [facility] 05-23-2024 11:45-0400 Heart rate 95 /min Mariela Schulz DO Work Phone: [facility] 05-23-2024 11:45-0400 Respiratory rate 16 /min Mariela Schulz DO Work Phone: [phone] [place] [address] 05-23-2024 11:45-0400 SaO2% (BldA) [Mass fraction] 95 % Mariela Schulz DO Work Phone: [facility] 05-23-2024 11:45-0400 Systolic blood pressure 111 mm[Hg] Mariela Schulz DO Work Phone: [phone] [place] [address] 05-22-2024 21:50-0400 Body height 152.4 cm Mariela Schulz DO Work Phone: [facility] 05-22-2024 21:50-0400 Body mass index (BMI) [Ratio] 27.34 kg/m2 Mariela Schulz DO Work Phone: [facility] 05-22-2024 21:50-0400 Body temperature 97.9 [degF] Mariela Schulz DO Work Phone: [facility] 05-22-2024 21:50-0400 Body weight 63.5 kg Mariela Schulz DO Work Phone: [facility] 07-04-2021 12:42-0500 Body height 155 cm Kinjal Cleveland MD Work Phone: [facility] 07-04-2021 12:42-0500 Body mass index (BMI) [Ratio] 25.05 kg/m2 Kinjal Cleveland MD Work Phone: [facility] 07-04-2021 12:42-0500 Body temperature 97.81 [degF] Kinjal Cleveland MD Work Phone: [facility] 07-04-2021 12:42-0500 Body weight 60.19 kg Kinjal Cleveland MD Work Phone: [facility] 07-04-2021 12:42-0500 Diastolic blood pressure 60 mm[Hg] Kinjal Cleveland MD Work Phone: [facility] 07-04-2021 12:42-0500 Heart rate 67 /min Kinjal Cleveland MD Work Phone: [facility] 07-04-2021 12:42-0500 Respiratory rate 18 /min Kinjal Cleveland MD Work Phone: [facility] 07-04-2021 12:42-0500 SaO2% (BldA) [Mass fraction] 97 % Kinjal Cleveland MD Work Phone: [facility] 07-04-2021 12:42-0500 Systolic blood pressure 92 mm[Hg] Kinjal Cleveland MD Work Phone: [facility] 01-19-2021 09:06-0400 Body temperature 98.29 [degF] Candice Bobby DO Work Phone: [employer] Work Phone: 01-19-2021 09:06-0400 Diastolic blood pressure 89 mm[Hg] Candice Bahenae DO Work Phone: [facility] Work Phone: 01-19-2021 09:06-0400 Heart rate 100 /min Candice Bobby DO Work Phone: [facility] Work Phone: 01-19-2021 09:06-0400 SaO2% (BldA) [Mass fraction] 99 % Candice Bahenae DO Work Phone: [facility] Work Phone: 01-19-2021 09:06-0400 Systolic blood pressure 138 mm[Hg] Candice Bobby DO Work Phone: [facility] Work Phone: 01-18-2021 20:30-0400 Respiratory rate 18 /min Candice Bobby DO Work Phone: [facility] Work Phone: 01-16-2021 23:50-0400 Body height 152.4 cm Candice Bobby DO Work Phone: [facility] Work Phone: 01-16-2021 23:50-0400 Body mass index (BMI) [Ratio] 32.22 kg/m2 Candice Bobby DO Work Phone: [facility] Work Phone: 01-16-2021 23:50-0400 Body weight 74.84 kg Candice Bobby DO Work Phone: [facility] Work Phone: 10-27-2020 10:30-0400 BP Diastolic 65 mm[Hg] [facility] 10-27-2020 10:30-0400 BP Systolic 115 mm[Hg] [facility] 10-27-2020 10:30-0400 Pulse Oximetry 99 % [facility] 10-27-2020 09:53-0400 Pulse (Heart Rate) 91 /min [facility] 10-27-2020 08:10-0400 BMI (Body Mass Index) 30.27 kg/m2 [facility] 10-27-2020 08:10-0400 Body Temperature 97.3 [degF] [facility] 10-27-2020 08:10-0400 Body weight 70.31 kg [facility] 10-27-2020 08:10-0400 Height 152.4 cm [facility] 10-27-2020 08:10-0400 Respiratory Rate 18 /[facility] 09-27-2019 09:36-0500 BMI (Body Mass Index) 26.37 kg/m2 [facility] 09-27-2019 09:36-0500 Body weight 61.24 kg [facility] 09-27-2019 09:36-0500 Height 152.4 cm Era Giordano [facility] 01-04-2019 18:19-0400 BMI (Body Mass Index) 30.27 kg/m2 [facility] 01-04-2019 18:19-0400 Body Temperature 97.59 [degF] [facility] 01-04-2019 18:19-0400 BP Diastolic 60 mm[Hg] [facility] 01-04-2019 18:19-0400 BP Systolic 102 mm[Hg] [facility] 01-04-2019 18:19-0400 Height 152.4 cm [facility] 01-04-2019 18:19-0400 Pulse (Heart Rate) 88 /min [facility] 01-04-2019 18:19-0400 Pulse Oximetry 98 % [facility] 01-04-2019 18:19-0400 Respiratory Rate 18 /min [facility] 01-04-2019 18:19-0400 Weight 70.31 kg [facility] 10-08-2017 17:17-0500 BMI (Body Mass Index) 27.97 kg/m2 [facility] 10-08-2017 17:17-0500 Body Temperature 98.1 [degF] [facility] 10-08-2017 17:17-0500 BP Diastolic 63 mm[Hg] [facility] 10-08-2017 17:17-0500 BP Systolic 109 mm[Hg] [facility] 10-08-2017 17:17-0500 Height 152.4 cm [facility] 10-08-2017 17:17-0500 Pulse (Heart Rate) 65 /min [facility] 10-08-2017 17:17-0500 Pulse Oximetry 98 % [facility] 10-08-2017 17:17-0500 Respiratory Rate 16 /min [facility] 10-08-2017 17:17-0500 Weight 64.95 kg [facility] Encounters Encounter Date Encounter Type Care Provider Facility Start: 02-16-2025 End: 02-16-2025 ambulatory MD NO PRIMARY CARE [facility] Start: 02-14-2025 End: 02-14-2025 Patient encounter procedure Sheila Eubanks GEOSPATIAL ENGINEER-C -Nuclear Medicine [facility] Work Phone: Start: 02-14-2025 End: 02-14-2025 ambulatory Sheila Eubanks NP Facility:[facility] Start: 02-13-2025 Encounter for other preprocedural examination [facility] Start: 02-13-2025 Encounter for other preprocedural examination [facility] Start: 02-13-2025 ambulatory [facility] Facilit y:[facility] Start: 02-13-2025 Non-patient / Non-visit Dr. Tho Figueroa MD -[facility] Start: 02-13-2025 End: 02-13-2025 Admission to same day surgery center Dr. Tamiko Figueroa MD [facility] Start: 02-13-2025 End: 02-13-2025 ambulatory Ryan Cochran PA Work Phone: [facility] Start: 02-08-2025 End: 02-08-[address] Michael Pantoja MD -[facility] Work Phone: Start: 02-08-2025 End: 02-08-2025 ambulatory Ryanchristopher Cochran PA Work Phone: -[facility] Start: 02-08-2025 Non-patient / Non-visit Dr. Carlos MATOS -[facility] Start: 02-08-2025 End: 02-08-2025 ambulatory Ryan Perham PA Work Phone: -[facility] Start: 02-08-2025 End: 02-08-[address] Ara Franklin MD -[facility] Work Phone: Start: 02-08-2025 End: 02-08-2025 ambulatory Ryan Cochran Facility:[facility] Start: 01-31-2025 End: 01-31-2025 ambulatory Ryanchristopher Cochran PA Work Phone: [facility] Start: 01-31-2025 End: 01-31-[address] Tamiko Figueroa MD -[facility] Work Phone: Start: 01-30-2025 End: 01-30-2025 Office outpatient visit 25 minutes Ryan VIEIRAC Work Phone: [facility] Comment on above: Infiltrating ductal carcinoma of left breast (Primary Dx); Depression, major, recurrent, mild; Class 1 obesity due to excess calories without serious comorbidity with body mass index (BMI) of 31.0 to 31.9 in adult Start: 01-30-2025 End: 01-31-2025 ambulatory [facility] Start: 01-29-[address] Manda Franklin MD -[facility] Start: 01-29-2025 End: 01-29-[address] Ara Franklin MD -[facility] Work Phone: Start: 01-29-2025 End: 01-29-2025 ambulatory Ryan HYMAN Work Phone: [facility] Work Phone: Start: 01-25-2025 End: 01-25-2025 ambulatory Ryan HYMAN Work Phone: [facility] Work Phone: Start: 01-25-2025 End: 01-25-[address] Tamiko Figueroa MD -[facility] Work Phone: Start: 01-25-2025 End: 01-25-2025 ambulatory Tamiko Figueroa Facility:[facility] Start: 01-23-2025 End: 01-23-2025 ambulatory Ryan HYMAN Work Phone: [facility] Work Phone: Start: 01-23-2025 End: 01-23-[address] Tamiko Figueroa MD -[facility] Work Phone: Start: 01-12-2025 End: 01-12-2025 Subsequent hospital visit by physician Jorge [facility] Comment on above: Abnormal mammogram o f left breast; Mass of multiple sites of left breast Start: 01-12-2025 End: 01-12-2025 ambulatory RYAN Garcia [facility] Start: 01-10-2025 End: 01-10-2025 Subsequent hospital visit by physician Jorge [facility] Comment on above: Mass of upper outer quadrant of left breast Start: 01-10-2025 End: 01-10-2025 ambulatory RYAN Garcia [facility] Start: 01-04-2025 End: 01-04-2025 Office outpatient visit 25 minutes Ryan Cochran PA-C Work Phone: [facility] Comment on above: Mass of upper outer quadrant of left breast (Primary Dx); Class 1 obesity due to excess calories without serious comorbidity with body mass index (BMI) of 30.0 to 30.9 in adult; Fibrocystic change of breast, left Start: 01-04-2025 End: 01-04-2025 ambulatory [facility] Start: 11-15-2024 End: 11-15-2024 Office outpatient new 45 minutes Ryan Cochran PA-C Work Phone: [facility] Comment on above: Encounter to [facility] with new provider (Primary Dx); Encounter for wellness examination in adult; Glucose intolerance (impaired glucose tolerance); Class 1 obesity due to excess calories without serious comorbidity with body mass index (BMI) of 30.0 to 30.9 in adult; Dietary counseling and surveillance; Intractable menstrual migraine with status migrainosus Start: 11-15-2024 End: 11-15-2024 Patient encounter status Ryan Cochran PA-C Work Phone: [facility] Work Phone: Start: 11-15-2024 End: 11-15-2024 ambulatory [facility] Start: 11-15-2024 End: 11-15-2024 Encounter for general adult medical examination without abnormal findings [facility] Start: 07-03-2024 ambulatory KINJAL GRAY [facility] Start: 05-23-2024 End: 05-25-2024 ambulatory [facility]AL [facility] Start: 05-22-2024 End: 05-23-2024 Emergency department patient visit Mariela Schulz DO Work Phone: [facility] Emergency Medicine Comment on above: Pneumonia due to inf ectious organism, unspecified laterality, unspecified part of lung (Primary Dx) Start: 05-14-2024 End: 05-15-2024 Emergency department patient visit KEYSHAWN CATHRYN [facility] Start: 09-10-2021 Orders Only Kinjal Cleveland MD Work Phone: [facility] Comment on above: 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) Start: 08-26-2021 Orders Only Kinjal Cleveland MD Work Phone: [facility] Comment on above: 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) Start: 07-21-2021 End: 07-21-2021 Office outpatient visit 25 minutes Era Giordano CNP Work Phone: [facility] Comment on above: Instability of left shoulder joint (Primary Dx); Bursitis and tendinitis of shoulder region Start: 07-04-2021 End: 07-04-2021 Office outpatient new 30 minutes Kinjal Cleveland MD Work Phone: [facility] Comment on above: 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); Functional diarrhea Start: 01-16-2021 End: 01-19-2021 Evaluation and management of inpatient Candice Bobby DO Work Phone: [facility] Start: 10-27-2020 End: 10-27-2020 Emergency department patient visit Debi Pederson Work Phone: [facility] Start: 09-27-2019 End: 09-27-2019 Office outpatient new 30 minutes Era Giordano Work Phone: [facility] Comment on above: Pain in both upper e xtremities (Primary Dx) Start: 01-04-2019 End: 01-04-2019 Patient encounter procedure Cathryn Hale Work Phone: [facility] Start: 01-04-2019 End: 01-04-2019 Emergency department patient visit [facility] Start: 10-08-2017 Office/outpatient vi sit, new, level 3 Elton Bauer Work Phone: [facility] Procedures Date Procedure [...] &/inj major jt/bursa w/o us Era Giordano CNP Work Phone: Start: 07-04-2021 Adult depression [...] 10-27-2020 Basic metabolic pane l calcium ionized [facility] Start: 10-27-2020 Albumin serum plasma /whole blood [facility] Start: 10-27-2020 Blood count complete [...] above: Performed By: #### T +S #### [place] [address] Start: 01-04-2019 Us retroperitoneal r eal time w/image limited Cathryn Hale Work Phone: Start: 01-04-2019 Urinalysis Cathryn Hale Work Phone: H/O: section Status pos t emergency section Candice Bobby Work Phone: Plan of Treatment Date Care Activity Detail Author Start: 2046 Zoster Vaccines (1 of 2) Zoste r Vaccines (1 of 2) [facility] Start: 10-09-2027 Tetanus vaccination [facility] Start: 12-02-2026 DTaP/Tdap/Td Vaccine s (7 - Td or Tdap) DTaP/Tdap/Td Vaccines (7 - Td or Tdap) [facility] Start: 04-09-2025 Influenza vaccination Influenz a Vaccine (Season Ended) [facility] Start: 04-02-2025 End: 04-02-2025 Patient encounter procedure 04/02/2025 9:40 AM EDT [facility] Visit [facility] [address] [place] [phone] Ryan Cochran, PA-C [address] [place] [place] [address] [facility] Start: 02-13-2025 Anesthesia access ce ntral venous circulation ANESTH VASCULAR ACCESS [facility] Start: 02-13-2025 Insj tunneled ctr va d w/subq port age 6 yr/> INSERT TUNNELED CV CATH [facility] Start: 02-13-2025 Patient discharge [facility] Start: 01-30-2025 End: 01-30-2025 Patient encounter procedure 01/30/2025 1:40 PM EDT [facility] [address] [place] [place] [phone] Ryna Cochran, PA-C [address] [place] [place] [address] [facility] Start: 01-29-2025 Cobalamin (Vitamin B 12) [Mass/volume] in Serum or Plasma [facility] Start: 01-29-2025 Comprehensive metabo lic 2000 panel - Serum or Plasma [facility] Start: 01-29-2025 Ferritin [Mass/volum e] in Serum or Plasma [facility] Start: 01-29-2025 Iron and Iron bindin g capacity panel - Serum or Plasma [facility] Start: 01-29-2025 [facility] Start: 01-23-[address] [facility] Work Phone: Start: 01-23-2025 End: 01-23-2025 Patient encounter procedure 01/23/2025 1:30 PM EDT Office Visit [facility] [address] [place] [phone] Nikki Ballesteros MD [address] [place] [address] [facility] Start: 01-17-2025 End: 01-17-2025 Patient encounter procedure 01/17/2025 9:45 AM EDT [facility] [address] [place] [phone] Yudy Ferrara MD [address] [place] [address] [facility] Start: 01-12-2025 End: 01-12-2025 Patient encounter procedure [facility] Start: 01-10-2025 End: 01-10-2025 Patient encounter procedure [facility] Start: 01-04-2025 End: 03-06-2026 DBT Breast - left diagnostic BI mammo left diagnostic tomosynthesis Imaging Routine Mass of upper outer quadrant of left breast Expected: 01/04/2025, Expires: 03/06/2026 [facility] Service Area Work Phone: Comment on above: Expected: 01/04/2025 , Expires: 03/06/2026 Start: 01-04-2025 End: 03-06-2026 US Breast - left limited BI US breast limited left Imaging Routine Mass of upper outer quadrant of left breast Expected: 01/04/2025, Expires: 03/06/2026 [facility] Work Phone: Comment on above: Expected: 01/04/2025 [...] in adult Expected: 11/15/2024 (Approximate), Expires: 11/15/2025 [facility] Service Area Work Phone: Comment on [...] in adult Expected: 11/15/2024 (Approximate), Expires: 11/15/2025 [facility] Work Phone: Comment on above: Expected: 11/15/2024 (Approximate), Expires: 11/15/2025 Start: 11-15-2024 End: 11-15-2025 Hemoglobin A1c/Hemoglobin.total in Blood Hemoglobin A1C Lab Routine Encounter for wellness examination in adult Glucose intolerance (impaired glucose tolerance) Class 1 obesity due to excess calories without serious comorbidity with body mass index (BMI) of 30.0 to 30.9 in adult Expected: 11/15/2024 (Approximate), Expires: 11/15/2025 [facility] Work Phone: Comment on above: Expected: 11/15/2024 (Approximate), Expires: 11/15/2025 Start: 11-15-2024 End: 11-15-2025 Lipid 1996 panel - Serum or Plasma Lipid Panel Lab Routine Encounter for wellness examination in adult Glucose intolerance (impaired glucose tolerance) Class 1 obesity due to excess calories without serious comorbidity with body mass index (BMI) of 30.0 to 30.9 in adult Expected: 11/15/2024 (Approximate), Expires: 11/15/2025 [facility] Work Phone: Comment on above: Expected: 11/15/2024 (Approximate), Expires: 11/15/2025 Start: 11-15-2024 End: 11-15-2025 Magnesium [Mass/volume] in Serum or Plasma Magnesium Lab Routine Encounter for wellness examination in adult Glucose intolerance (impaired glucose tolerance) Class 1 obesity due to excess calories without serious comorbidity with body mass index (BMI) of 30.0 to 30.9 in adult Expected: 11/15/2024 (Approximate), Expires: 11/15/2025 [facility] Work Phone: Comment on above: Expected: 11/15/2024 (Approximate), Expires: 11/15/2025 Start: 11-15-2024 End: 11-15-2025 Thyrotropin [Units/volume] in Serum or Plasma Thyroid Stimulating Hormone Lab Routine Encounter for wellness examination in adult Glucose intolerance (impaired glucose tolerance) Class 1 obesity due to excess calories without serious comorbidity with body mass index (BMI) of 30.0 to 30.9 in adult Expected: 11/15/2024 (Approximate), Expires: 11/15/2025 [facility] Work Phone: Comment on above: Expected: 11/15/2024 (Approximate), Expires: 11/15/2025 Start: 11-15-2024 End: 11-15-2025 Thyroxine (T4) free [Mass/volume] in Serum or Plasma Thyroxine, Free Lab Routine Encounter for wellness examination in adult Glucose intolerance (impaired glucose tolerance) Class 1 obesity due to excess calories without serious comorbidity with body mass index (BMI) of 30.0 to 30.9 in adult Expected: 11/15/2024 (Approximate), Expires: 11/15/2025 [facility] Work Phone: Comment on above: Expected: 11/15/2024 (Approximate), Expires: 11/15/2025 Start: 04-09-2024 COVID-19 Vaccine ( season) COVID-19 Vaccine ( season) [facility] Start: 04-09-2024 COVID-19 Vaccine ( season) COVID-19 Vaccine ( season) [facility] Start: 04-09-2024 Influenza vaccination Influenza Vacc ine (#1) [facility] Start: 07-04-2022 Depression screening using PHQ-9 (Patient Health Questionnaire 9) score Depression Screening (PHQ-2/9) [facility] Start: 04-09-2021 Influenza vaccination [facility] Start: 04-09-2020 Influenza vaccinatio n given Sequential Influenza Vaccine (#1) [facility] Start: 04-09-2019 Influenza vaccinatio n given [facility] Start: 03-09-2018 Vaccination for robb n papillomavirus HPV VACCINES (1 of 3 - Female 3 Dose Series) [facility] Start: 2017 Screening for malign ant neoplasm of cervix [facility] Start: 2014 Hepatitis C antibody , confirmatory test Hepatitis C Screening [facility] Start: 2014 Hepatitis C screening Hepatitis C Sc reening [facility] Start: 2012 COVID-19 Vaccine (1) COVID-19 Vaccin e (1) [facility] Start: 11-21-2011 HIV screening HIV Screening [facility] Start: 11-21-2011 Vaccination for robb n papillomavirus HPV VACCINES (1 - Female 3-dose series) [facility] Start: 2008 Adolescent depressio n screening assessment Depression Screening (PHQ9) [facility] Start: 2008 COVID-19 Vaccine (1) COVID-19 Vaccin e (1) [facility] Work Phone: Start: 2008 Depression screening using PHQ-9 (Patient Health Questionnaire 9) score Depression Screening (PHQ-2/9) [facility] Start: 11-21-2007 Vaccination for robb n papillomavirus [facility] Start: 03-27-2002 Varicella vaccination Varicell a Vaccines (2 of 2 - 2-dose childhood series) [facility] Start: 2001 COVID-19 Vaccine (1) COVID-19 Vaccin e (1) [facility] Start: 11-21-1999 History and physical examination, annual for health maintenance Wellness Visit [facility] Start: 1996 Depression screening using PHQ-9 (Patient Health Questionnaire 9) score Depression Screening (PHQ9) [facility] Start: 1996 HIV screening HIV Screening [facility] Start: 1996 Lipid panel Lipid Panel [facility] Start: 1996 Screening for Chlamy noa trachomatis Chlamydia Screening [facility] Start: 1996 Screening for malign ant neoplasm of cervix PAP SMEAR [facility] Start: 1996 [facility]ly [facility] Alanine aminotransfe rase [Enzymatic activity/volume] in Serum or Plasma [facility] Albumin [Mass/volume ] in Serum or Plasma [facility] Alkaline phosphatase [Enzymatic activity/volume] in Serum or Plasma [facility] Anion gap in Serum o r Plasma [facility] End: 05-22-2024 Bacteria identified in Blood by Culture [facility] Service Area Work Phone: Comment on above: STAT (Lab) for 1 Occ urrences starting 05/22/2024 until 05/22/2024, 1 completed Bilirubin, total measurement [facility] BUN/Creatinine ratio [facility] Calcium [Mass/volume ] in Serum or Plasma [facility] Carbon dioxide, tota l [Moles/volume] in Central venous blood [facility] Creatinine [Mass/vol ume] in Serum or Plasma [facility] ECG 12 Lead ECG 12 Lead ECG STAT 05/22/2024 9:50 PM EDT [facility] Work Phone: Folate [Moles/volume ] in Serum or Plasma [facility] Glucose [Mass/volume ] in Serum or Plasma [facility] Iron [Mass/mass] in Unspecified specimen [facility] Iron saturation [Mas s Fraction] in Serum or Plasma [facility] Measurement of renal function [facility] MR Breast - bilatera l WO and W contrast IV [facility] Nonrebreather mask oxygen Nonreb reather mask oxygen Respiratory Care Routine As directed - RT (PRN) until discontinued starting 01/16/2021 [employer] Work Phone: Comment on above: As directed - RT (AL N) until discontinued starting 01/16/2021 Oxygen therapy [[facility] Data Set] Initiate Oxygen Therapy Protocol Respiratory Care Routine Daily until discontinued starting 01/17/2021 [employer] Work Phone: Comment on above: Daily until disconti nued starting 01/17/2021 Patient referral [facility] Work Phone: Phase I & II - meter ed glucose Phase I & II - metered glucose Point of Care Testing Routine As Needed until discontinued starting 01/17/2021 [employer] Work Phone: Comment on above: As Needed until disc ontinued starting 01/17/2021 Positron emission tomography with computed tomography [facility] Potassium measurement [facility] Serum chloride measurement [place] Sodium measurement [facility] Spirometry panel Incentive ramón metry Respiratory Care Routine Every 2hr while awake until discontinued starting 01/17/2021 [facility] Work Phone: Comment on above: Every 2hr while awak e until discontinued starting 01/17/2021 End: 01-17-2021 SURGICAL PATHOLOGY SURGICAL PATHOLOGY Lab Routine One Time for 1 Occurrences starting 01/17/2021 until 01/17/2021 [facility] Work Phone: Comment on above: One Time for 1 Occur rences starting 01/17/2021 until 01/17/2021 End: 01-12-2025 Surgical pathology study [facility] Service [facility] Work Phone: Comment on above: Once (Lab) for 1 Occ urrences starting 01/12/2025 until 01/12/2025, 1 completed Total iron binding capacity measurement [facility] Total protein measurement [facility] TYPE AND SCREEN TYPE AND SCREEN Blood Bank Routine Every Third Day until discontinued starting 01/16/2021, 1 completed [facility] Work Phone: Comment on above: Every Third Day unti l discontinued starting 01/16/2021, 1 completed Urea nitrogen [Mass/volume] in Serum or Plasma [facility] Immunizations Immunization Date Immunization Notes Care Provider Fa alejandroty 01-17-2021 diphtheria, tetanus toxoids and acellular pertussis vaccine, unspecified formulation Candice Bobby DO Work Phone: [facility] Work Phone: 01-17-2021 measles, mumps and rubella virus vaccine Candiceherminia Bahenae DO Work Phone: [facility] Work Phone: 12-02-2016 tetanus toxoid, reduced diphtheria toxoid, and acellular pertussis vaccine, adsorbed Kinjal Cleveland MD Work Phone: [facility] 02-27-2002 diphtheria, tetanus toxoids and acellular pertussis vaccine, unspecified formulation Kinjal Cleveland MD Work Phone: [facility] 02-27-2002 measles, mumps and rubella virus vaccine Kinjal Cleveland MD Work Phone: [facility] 02-27-2002 poliovirus vaccine, inactivated Kinjal Cleveland MD Work Phone: [facility] 07-03-1998 diphtheria, tetanus toxoids and acellular pertussis vaccine, unspecified formulation Kinjal Cleveland MD Work Phone: [facility] 07-03-1998 varicella virus vaccine Kinjal Cleveland MD Work Phone: [facility] 04-10-1998 haemophilus influenz ae type b conjugate and Hepatitis B vaccine Kinjal Cleveland MD Work Phone: [facility] 04-10-1998 haemophilus influenz ae type b vaccine, conjugate unspecified formulation [facility] 04-10-1998 measles, mumps and rubella virus vaccine [facility] 07-25-1997 hepatitis B vaccine, pediatric or pediatric/adolescent dosage Kinjal Cleveland MD Work Phone: [facility] 07-03-1997 DTaP [facility] 06-20-1997 diphtheria, tetanus toxoids and acellular pertussis vaccine, unspecified formulation Kinjal Cleveland MD Work Phone: [facility] 06-20-1997 DTaP [facility] 06-20-1997 haemophilus influenz ae type b conjugate and Hepatitis B vaccine Kinjal Cleveland MD Work Phone: [facility] 06-20-1997 haemophilus influenz ae type b vaccine, conjugate unspecified formulation [facility] 06-20-1997 poliovirus vaccine, inactivated [facility] 06-20-1997 trivalent poliovirus vaccine, live, oral Kinjal Cleveland MD Work Phone: [facility] 04-04-1997 diphtheria, tetanus toxoids and acellular pertussis vaccine, unspecified formulation Kinjal Cleveland MD Work Phone: [facility] 04-04-1997 DTaP [facility] 04-04-1997 haemophilus influenz ae type b vaccine, conjugate unspecified formulation [facility] 04-04-1997 poliovirus vaccine, inactivated [facility] 04-04-1997 trivalent poliovirus vaccine, live, oral Kinjal Cleveland MD Work Phone: [facility] 01-24-1997 diphtheria, tetanus toxoids and acellular pertussis vaccine, unspecified formulation Kinjal Cleveland MD Work Phone: [facility] 01-24-1997 DTaP Elton Bauer [facility] 01-24-1997 haemophilus influenz ae type b vaccine, conjugate unspecified formulation Elton Bauer [facility] 01-24-1997 poliovirus vaccine, inactivated Elton Lizette [facility] 01-24-1997 trivalent poliovirus vaccine, live, oral Kinjal Cleveland MD Work Phone: [facility] Payers Date Payer Category Payer Self-pay 2023 [employer] [facility] MARISELA TRADITIONAL [id number] 2023 Unknown MARISELA ANTONIO TR ADITIONAL [id number] 2023-Present [address] [place] [address] [id number] 2023 Unknown [id number] 2020 Medicaid [facility] MEDICAID COMMUNITY PLAN [id number] 2020-Present [id number] 2020 Medicaid [facility] MANAGED [facility] MEDICAID COMMUNITY PLAN [id number] 2020-Present [phone] [address] [place] [address] [id number]. [id number] 2020 Medicare UHC MEDICARE [facility] DUAL COMPLETE [id number] 2020-Present [id number] [id number]. 2.7.3.509328.315 2018 Private Health Insurance [id number]. 2.7.3.786718.315 2016 Medicaid [id number] 2.16.840.1.154617.3.249. 13 1996 Unknown [id number] 2.16.840.1.156320.3.579. 2.902 1996 Unknown [id number] 2.16.840.1.794787.3.579. 2.903 1996 Unknown [id number] 2.16.840.1.188184.3.579. 2.90 1996 Unknown [id number] 2.16.840.1.976784.3.579. 2.1243 1996 Unknown [id number] 2.16.840.1.798781.3.579. 2.1243 1996 Unknown [id number] 2.16.840.1.662295.3.579. 2.1243 1996 Unknown [id number] 2.16.840.1.150397.3.579. 2.1242 1996 Unknown [id number] 2.16.840.1.339715.3.579. 2.1242 1996 Unknown [id number] 2.16.840.1.432431.3.579. 2.1242 1996 Unknown [id number] 2.16.840.1.833107.3.579. 2.1242 1996 Unknown [id number] 2.16.840.1.528548.3.579. 2.12421997 Unknown [id number] 2.16.840.1.546109.3.579. 2.479 Unknown [id number] 2.16.840.1.320101.3.249. 13 Unknown [id number] 2.16.840.1.504658.3.579. 2.462 Unknown [id number] 2.16.840.1.890045.3.579. 2.462 Unknown [id number] 2.16.840.1.168723.3.579. 2.462 Unknown [id number] 2.16.840.1.217495.3.579. 2.462 Unknown [id number] 2.16.840.1.400988.3.579. 2.462 Unknown [id number] 2.16.840.1.307360.3.579. 2.462 Unknown [id number] 2.16.840.1.625437.3.579. 2.462 Unknown [id number] 2.16.840.1.561893.3.579. 2.462 Unknown [id number] 2.16.840.1.103263.3.579. 2.462 Unknown [id number] 2.16.840.1.392907.3.579. 2.462 Unknown [id number] 2.16.840.1.162785.3.579. 2.462 Social History Date Type Detail Facility Start: 11-13-2017 End: 02-12-2025 Tobacco smoking status NVIS Never smoker [facility] Start: 1995 [facility] Start: 08-23-2018 [facility] Start: 10-02-2019 End: 07-21-2021 Alcohol intake Current non-drinker of alcohol (finding) [facility] Start: 10-27-2020 End: 11-15-2024 Tobacco use and exposure Never used [facility] Start: 05-13-2024 End: 01-12-2025 Exposure to SARS-CoV-2 (event) Not sure [facility] Start: 01-19-2021 Alcohol intake Lifetime non-d myron (finding) [facility] Work Phone: Start: 01-16-2021 End: 07-04-2021 History SDOH Alcohol Frequency 1 [facility] Work Phone: Start: 07-04-2021 History SDOH Social Connections Get Together 3 [facility] Start: 07-04-2021 History SDOH Financial 5 [facility] Start: 07-04-2021 History SDOH Transport Med 2 [facility] Start: 05-23-2024 Tobacco smoking status NHIS Tobacco smoking consumption unknown [facility] Start: 11-15-2024 End: 01-30-2025 Gender identity Not on file [facility] Work Phone: Start: 11-15-2024 End: 01-30-2025 Alcoholic beverage intake Current drinker of alcohol (finding) [facility] Work Phone: Start: 11-15-2024 End: 01-30-2025 History of Social function [facility] Work Phone: Start: 11-15-2024 Alcohol Comment rare [facility] Work Phone: Start: 1995 [facility] Start: 01-12-2025 Gender identity Identifies as female gender (finding) [facility] Work Phone: Start: 01-12-2025 Sexual orientation Heterosexual (fin ding) [facility] Work Phone: NEGATED: Highlighted rowStart: NINF History of tobacco use Passive smoker [facility] Work Phone: NEGATED: Highlighted row Not [facility] Medical Equipment Procedure Code Equipment Code Equipment Origin al Text Equipment Identifier Dates Insertion, vascular access port ([id number]) Vascular port/catheter ()[id number] FDA Start: 02-13-2025 Goals Date Patient Goal Desired Activity /State Functional Status Date Assessment Result Facility 01-30-2025 Patient Health Quest ionnaire 2 item (PHQ-2) [Reported] [facility] Work Phone: Mental Status Date Assessment Result Facility 02-13-2025 Cognitive function Voice/Name [facility] Work Phone: 02-13-2025 Cognitive function Patient Olga ibrahim Person;Place;Time [facility] Work Phone: Clinical Notes 01-19-2021 to 02-14-2025 Note Date & Type Note Facility 02-14-2025 Nuclear medicine Diagnostic study note [facility] Imaging Services [address] [place] [address] Bone Scan Whole Body MR#: [id number] Acct: [id number] Name: SHAUNA RAINEY Rep #: [id number] : 1995 F 29 From: Faizan Pederson MD PCP: YENNI Hartman Status: REG CLI Study:Bone Scan Whole Body Date of Exam: 02/14/25 Exam# [id number] Ordering Dr: Sheila Fisher NP PROCEDURE: BONE SCAN WHOLE BODY 02/14/2025 REASON FOR EXAM: BREAST CANCER STAGING TECHNIQUE: Delayed whole-body bone scan after radiopharmaceutical administration RADIOPHARMACEUTICAL: 27.1 mCi Technetium-99m MDP IV COMPARISON: None. FINDINGS: No evidence of osseous metastatic disease. No significant area of abnormal uptake is noted. NM/Bone Scan Whole Body IMPRESSION: No scintigraphic evidence of osseous metastatic disease. Reading Location: [address] CC: GEOSPATIAL ENGINEERWilli Eubanks; YENNI Hartman ~ Manufacturing Engineer: Signed [facility] 02-13-2025 History and physi hilario note Note Date/Time February 13, 2025 7:21a m [facility] Medical Records Department [address] [place] [address] History & Physical Exam 02/13/25 0719 MR#: [id number] Acct: [id number] Name: SHAUNA RAINEY Rep #:[id number] : 1995 29 From: Tamiko Figueroa MD PCP: YENNI Hartman Status:[facility] Location: [place] [address] History and Physical Date of Admission: 02/13/25 Date of Service: 01/23/25 MR#: [id number] Acct: [id number] Name: SHAUNA RAINEY Rep #: [id number] : 1995 Provider: Dr. Tamiko Figueroa MD Age/Sex: 29/F Location: 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 Ultrasound did not show any abnormal or [...] cooperative, healthy appearing and no acute distress [facility] Head: normal to inspection Chest [...] site of unspecified female breast Genetic Counseling, [facility] C50.919 - Malignant neoplasm of unspecified site of unspecified female breast Plan Reviewed patient's mammography as well as ultrasound with the patient and her I did also personally review. Discussed with patient and her since she is HER2 positive, ER/AL negative, will refer to oncology. Likely she [...] with reconstruction. Will refer patient to Dr. Panotja. Tamiko Figueroa M.D. Pager: [phone] [facility] [address] [place] [address], [address] [place] [address] Office: [phone] Coding Level of Care Code Off vis,new,level [...] MRI guided biopsy. Tamiko Figueroa M.D. Pager: [phone] [facility] [address] [place] [address], [facility], [address] [place] [address] Office: [phone] 02/13/25 0721<Electronically signed by Tamiko Figueroa MD> Cosigner Signature (if applicable): cc: Dr. Tamiko Figueroa MD; YENNI Hartman ~* Signed [facility] Work Phone: 1(549) 754-558507-08-2025 Consult note Author Nikunj Vasquez [facility] Note Date/Time February 13, 2025 7:19a m [facility] Medical Records Department [address] [place] [address] Pre-Anesthesia Evaluation 02/13/2513 MR#: [id number] Acct: [id number] Name: SHAUNA RAINEY Rep #:[id number] : 1995 29 From: Nikunj Vasquez MD PCP: YENNI Hartman Status:REG SDC Y Race: C Location: [place] [address] ASA Classification* ASA Classification ASA Classification: 2 [...] poss left Anesthesia History Anesthesia History - draw hand: Anesthesia History - draw hand Hx Hospitalization Yes: 04/2024 PNEUMONIA 02/12/25 14:05 [...] take am of surgery PONV PONV - draw hand: PONV - draw hand Female Yes 02/12/25 14:05 HX of Motion [...] 02/13/25 06:48 Respiratory Assessment Respiratory Assessment - draw hand: Respiratory Tract Infection Hx - draw hand Hx Respiratory Tract Infection No 02/12/25 14:05 STOP Sleep Apnea STOP Sleep Apnea - draw hand: STOP Sleep Apnea - draw hand Hx Hypertension No 02/12/25 14:05 Hx Sleep [...] Tobacco Use History Tobacco Use History - draw hand: Tobacco Use History - draw hand Tobacco Use Smoking Status Never smoker 02/12/25 14:05 Hx Tobacco Use No 02/12/25 14:05 Years Smoking Packs Smoked per Day Smoking Cessation Date was within the last 15 years Hx Smoking Cessation Date Hx Smoking Cessation Counseling Hematologic Medial History Hematologic Hx - draw hand: Hematologic 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 - pier 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 helper Hx of Blood Transfusion No 02/12/25 14:05 [...] confused, unrespo /Reproduction History /Reproductive History - draw hand: /Reproductive Hx- draw hand Hx Now No 02/12/25 14:05 Gestational Age [...] Nikunj Valeigner Signature: Date CC: ~ Signed [facility] Work Phone: 1(271) 959-449307-08-2025 Radiology Diagnostic study note [facility] Imaging Services [address] [place], [place] [address] Chest 1 View (Portable) MR#: [id number] Acct: [id number] Name: SHAUNA RAINEYA Rep #: [id number] : 1995 F 29 From: Faizan Pederson MD PCP: YENNI Hartman Status: [facility] Study:Chest 1 View (Portable) Date of Exam: 02/13/25 Exam# [id number] Ordering Dr: Tamiko Figueroa MD PROCEDURE: CHEST [...] acute osseous change is seen. Reading Location: [id number] CC: Dr. Tamiko Figueroa MD; YENNI Hartman ~ Manufacturing Engineer: Signed [facility]07-08-2025 Consult note [facility] Medical Records Department [address] [place] [address] Anesthesia Postop Eval I 02/13/25 0830 MR#: [id number] Acct: [id number] Name: SHAUNA RAINEY Rep #:[id number] : 1995 29 From: Bonnie KERR PCP: YENNI Hartman Status:[facility] Y Race: C Location: [place] [address] Anesthesia: Postop Eval I Current Vital Signs [...] document: Postop Eval 1 completed: Yes 02/13/25830 LEADERSHIP DEVELOPMENT INSTRUCTOR> Date _ Bonnie Ray LEADERSHIP DEVELOPMENT INSTRUCTOR Cosigner Signature: Date CC: ~ Signed [facility]07-08-2025 Discharge summary [facility] Medical Records Department [address] [place] [address] Instructions for Home/Discharge Instructions 02/13/25823 MR#: [id number] Acct: [id number] Name: SHAUNA RAINEYA Rep #:[id number] : 1995 29 From: Tamiko Figueroa MD PCP: YENNI Hartman Status:[facility] Discharge Instructions Procedure Port-A-Cath Diet Discharge Diet: [...] Care Provider: Ryan Cochran Instructions Print Language: Monegasque Discharge Orders/Prescriptions Prescriptions: New oxycodone 5 mg [...] Figueroa MD CC: YENNI Hartman ~ Signed [facility]07-08-2025 History and physical note [facility] Medical Records Department [address] [place] [address] History & Physical Exam 02/13/25 0719 MR#: [id number] Acct: [id number] Name: SHAUNA RAINEY Rep #:[id number] : 1995 29 From: Tamiko Figueroa MD PCP: YENNI Hartman Status:[facility] Location: [place] [address] History and Physical Date of Admission: 02/13/25 Date of Service: 01/23/25 MR#: [id number] Acct: [id number] Name: SHAUNA RAINEY Rep #: [id number] : 1995 Provider: Dr. Tamiko Figueroa MD Age/Sex: 29/F Location: 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 Ultrasound did not show any abnormal or [...] cooperative, healthy appearing and no acute distress [facility] Head: normal to inspection Chest [...] and her since she is HER2 positive, ER/AL negative, will refer to oncology. Likely she [...] to Dr. Pantoja. Tamiko Figueroa M.D. Pager: [phone] [facility] [address] [place] [address], [place] [id number] Office: [phone] Coding Level of Care Code Off vis,new,level [...] MRI guided biopsy. Tamiko Figueroa M.D. Pager: [phone] [facility] [address] [place] [address], [facility] [place] [id number] Office: [phone] 02/13/25 07 Cosigner Signature (if applicable): cc: Dr. Tamiko Figueroa MD; YENNI Hartman ~* Signed [facility]07-08-2025 Consult note [facility] Medical Records Department [address] [place], [place] [address] Pre-Anesthesia Evaluation 02/13/25712 MR#: [id number] Acct: [id number] Name: SHAUNA RAINEY Rep #:[id number] : 1995 29 From: Nikunj Vasquez MD PCP: YENNI Hartman Status:REG SDC Y Race: C Location: [place] [address] ASA Classification* ASA Classification ASA Classification: 2 [...] poss left Anesthesia History Anesthesia History - draw hand: Anesthesia History - draw hand Hx Hospitalization Yes: 04/2024 PNEUMONIA 02/12/25 14:05 [...] take am of surgery PONV PONV - draw hand: PONV - draw hand Female Yes 02/12/25 14:05 HX of Motion [...] 02/13/25 06:48 Respiratory Assessment Respiratory Assessment - draw hand: Respiratory Tract Infection Hx - draw hand Hx Respiratory Tract Infection No 02/12/25 14:05 STOP Sleep Apnea STOP Sleep Apnea - draw hand: STOP Sleep Apnea - draw hand Hx Hypertension No 02/12/25 14:05 Hx Sleep [...] Tobacco Use History Tobacco Use History - draw hand: Tobacco Use History - draw hand Tobacco Use Smoking Status Never smoker 02/12/25 14:05 Hx Tobacco Use No 02/12/25 14:05 Years Smoking Packs Smoked per Day Smoking Cessation Date was within the last 15 years Hx Smoking Cessation Date Hx Smoking Cessation Counseling Hematologic Medial History Hematologic Hx - draw hand: Hematologic Medical Hx - pier hand helper Hx of Blood Transfusion No 02/12/25 14:05 [...] confused, unrespo /Reproduction History /Reproductive History - draw hand: /Reproductive Hx- draw hand Hx Now No 02/12/25 14:05 Gestational Age [...] meka MATOS> Date _ Nikunj Vasquez MD [facility] Signature: Date CC: ~ Signed [facility]07-08-2025 [facility] Medical Records Department [address] [place] [address] History Physical Exam 02/13/25718 MR#: [id number] Acct: [id number] Name: SHAUNA RAINEY Rep #: [id number] : 1995 29 From: Tamiko Figueroa MD PCP: YENNI Hartman Status:[facility] Location: [place] [address] History and Physical Date of Admission: 02/13/25 Date of Service: 01/23/25 MR#: [id number] Acct: [id number] Name: SHAUNA RAINEY Rep #: [id number] : 1995 Provider: Dr. Tamiko Figueroa MD Age/Sex: 29/F Location: [facility] Status: Signed Intake Vital Signs 01/23/2509:59 Height [...] showed invasive ductal carcinoma grade 2- 3, ER/AL negative, HER2 positive at in [place]. Ultrasound did not show any abnormal or [...] cooperative, healthy appearing and no acute distress [facility] Head: normal to inspection Chest [...] carcinoma of left br (more content not included)...[facility]06-27-2025 Radiology Diagnostic study note [facility] Imaging Services [address] [place], [place] [address] Breast Limited Unilateral MR#: [id number] Acct: [id number] Name: SHAUNA RAINEY Rep #: [id number] : 1995 F 29 From: Keshia Garcia MD PCP: YENNI Hartman Status: REG CLI Study:Breast Limited Unilateral Date of Exam: 01/31/25 Exam# [id number] Ordering Dr: Tamiko Figueroa MD PROCEDURE: BREAST [...] the biopsy-proven left breast malignancy. Reading Location: [facility] CC: Dr. Tamiko Figueroa MD; YENNI Hartman ~ Manufacturing Engineer: Signed [facility]06-24-2025 History of Present illness Narrative* YENNI Walker-Gurdeep - 01/30/2025 1:40 PM EDT Subjective Patient ID: Shauna Rainey is a 29 y.o. 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 and has followed with the surgeon and specialists in [place] a few times She is awaiting genetic [...] buspar as well if needed Preventative testing [facility] Mammo DEXA Colon Fall NEG November [...] medications for this visit. documented in this [facility] Work Phone: 1(591) 855-360306-23-2025 Progress [facility] [address] [place] [address] OFFICE VISIT Date of Service: 01/29/25 1515 MR#: [id number] Acct: [id number] Name: SHAUNA RAINEY Rep #: [id number] : 1995 From: Ara steele MD Age/Sex: 29/F Location: [facility] Status: Signed HPI Subjective Date of Service [...] and DCIS. 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 January 25, [...] FINAL ASSESSMENT BI-RADS 6: KNOWN BIOPSY-PROVEN MALIGNANCY. [facility] (Updated 01/29/25 @ 16:03 [...] no focal motor deficits Coordination / Balance: mwhthc-dt-lyut test normal Speech: speech normal Gait (Neuro): [...] cancer of the left breast ER negative, AL negative, HER2/camila overexpressed 3+ with an abnormal [...] She will make anappointment to see her ELECTRICAL WORKER to discuss these 2 issues further. 4. [...] impression and plan discussed Ara Franklin MD Smokehouse Operator, [facility] Divisions of Medical Oncology & Hematology Department of Internal Medicine [address] [address] This note was generated using a voice [...] Dr. Tamiko Figueroa MD; YENNI Hartman ~ [facility]06-23-2025 Progress note Author Ara Franklin [facility] Note Date/Time January 29, 2025 4:[address] [facility] [address] [address] OFFICE VISIT Date of Service: 01/29/25 1515 MR#: [id number] Acct: [id number] Name: SHAUNA RAINEYA Rep #: [id number] : 1995 From: Ara steele MD Age/Sex: 29/F Location: [facility] Status: Signed HPI Subjective Date of Service [...] and DCIS. 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 January 25, [...] FINAL ASSESSMENT BI-RADS 6: KNOWN BIOPSY-PROVEN MALIGNANCY. [facility] Medical History (Updated 01/29/25 @ 16:03 by [...] no focal motor deficits Coordination / Balance: ywsmar-br-gkmt test normal Speech: speech normal Gait (Neuro): [...] cancer of the left breast ER negative, AL negative, HER2/camila overexpressed 3+ with an abnormal [...] She will make anappointment to see her ELECTRICAL WORKER to discuss these 2 issues further. 4. [...] impression and plan discussed Ara Franklin MD Smokehouse Operator, [facility] Divisions of Medical Oncology & Hematology Department of Internal Medicine [place] [address] This note was generated using a voice [...] fallen in the past year?: No 01/29/25 0404 <Electronically signed by Ara hawley MD> Date _ Ara Franklin [facility] Signature: Date (if applicable) CC: Dr. Tamiko Figueroa MD; YENNI Hartman ~ [facility] Work Phone: 1(523) 672-603706-17-2025 Evaluation note* Diagnosis Onset Date Resolution Status [...] 2025 3:08pm Anemia chronic January 29 3:08pm [facility] Work Phone: 1(948) 522-329606-17-2025 Evaluation note* Diagnosis Onset Date Resolution Status [...] breast acute February 08, 2025 1 :55pm [facility] Work Phone: 1(704) 880-459406-17-2025 Progress [facility] [address] [place], [place] [address] OFFICE VISIT Date of Service: 01/23/25 MR#: [id number] Acct: [id number] Name: SHAUNA RAINEY Rep #: [id number] : 1995 Provider: Dr. Niall Figueroa MD Age/Sex: 29/F Location: 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 Ultrasound did not show any abnormal or [...] and her since she is HER2 positive, ER/AL negative, will refer to oncology. Likely she [...] to Dr. Pantoja. Tamiko Figueroa M.D. Pager: [phone] [facility] [address] [place] [address] [address] [place] [address] Office: 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 Aden Winslow MD; Dr. Ara Franklin MD; Dr. Michael Pantoja MD; YENNI Paige ~ [facility]06-17-2025 Progress note Author Tamiko Figueroa [facility] Note Date/Time January 23, 2025 10:[address] [facility] [address] [place] [address] OFFICE VISIT Date of Service: 01/23/25 MR#: [id number] Acct: [id number] Name: SHAUNA RAINEY Rep #: [id number] : 1995 Provider: Dr. Niall Figueroa MD Age/Sex: 29/F Location: 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 Ultrasound did not show any abnormal or [...] cooperative, healthy appearing and no acute distress [facility] Head: normal to inspection Chest [...] site of unspecified female breast Genetic Counseling, [facility] C50.919 - Malignant neoplasm of unspecified site of unspecified female breast Plan Reviewed patient's mammography as well as ultrasound with the patient and her I did also personally review. Discussed with patient and her since she is HER2 positive, ER/AL negative, will refer to oncology. Likely she [...] to Dr. Pantoja. Tamiko Figueroa M.D. Pager: [phone] [facility] [address] [place] [address], [address] [place] [address] Office: [phone] Coding Level of Care Code Off vis,new,level [...] Dr. Michael Pantoja MD; YENNI Paige ~ [facility] Work Phone: 1(864) 232-247406-06-2025 Nurse Note* Vik Petersen RN - 01/12/2025 11:35 AM EDT Dc instructions provided and reviewed without questions. Patient dc'd home with mother. Patient ambulates to lobby with slow and steady gait. [facility] Work Phone: 1([phone]) 835-836606-06-2025 Nurse Note* Vik Petersen RN - 01/12/2025 11:35 AM EDT Dc instructions provided and reviewed without questions. Patient dc'd home with mother. Patient ambulates to lobby with slow and steady gait. documented in this [facility] Work Phone: 1(222) 596-930205-29-2025 History of Present illness Narrative* Ryan Cochran PA-C - 01/04/2025 9:40 AM EDT Subjective Patient ID: Shauna Rainey is a 29 y.o. female who presents for Follow-up (C/O INDENT IN LT BREAST) HPI Breast concerns L breast indent x 1 year and thinks it is getting worse She aranza hx of mammo Last visit with ELECTRICAL WORKER was within 6 mo - she didn't mention it then but states she did have the spot but the ELECTRICAL WORKER did not note concern during her PE Pt youngest was born in 2020 and breast fed sometime into 2022 Pt denies unexplainable wt loss, fever, nipple discharge or fam hx of breast cancer Med check - currently not taking meds and denies changes in meds in the past year prior to this Preventative testing [facility] Mammo DEXA Colon Fall NEG November [...] medications for this visit. [facility]: 1(961) 719-326504-09-2025 History of Present illness Narrative* Ryan Cochran [...] other symptoms We discussed diet and ex, line maintainer, labs, injectables, adipex. Pt to check with insurance and get her labs done and if approp can call to start wegovy type med if she wishes but is aware she would need to be seen monthly for wt checks in the beginning Preventative testing [facility] - [facility] Mammo DEXA Colon Fall NEG November [...] 3-12 mo with wellness / LABS at [facility] -= pt to call [facility] Phone: 1([phone]) 425-925910-17-2024 NoteS DISCHARGE SUMMARY -- [facility] Shauna Rainey Admitted: 05/23/2024 Discharge Date: 05/25/24 PCP Handoff Recommended Outpatient Testing None Results Pending At Discharge None Clinical Summary Shauna Rainey is a 28 y.o. female patient of Kinjal Cleveland MD with history of depression presented to [facility] on 05[facility]23/2024 with shortness of breath, hypoxia and tachycardia. Patient transferred from [facility] ER. Acute hypoxic respiratory failure, resolved Community-acquired pneumonia, Rt basilar lobe Failed outpatient treatment CXR reviewed showed perihilar opacities considering superimposed infection. CT PE was negative for PE, showed patchy right basilar airspace opacity Patient was hypoxic when she presented to the [place] ER S/p 7-day of doxycycline as an [...] tablet Physician(s) Follow Up: Kinjal Cleveland MD [facility] [place] [id number] Schedule an appointment as soon as possible [...] PM AUTHENTICATED BY CASSANDRA DAVID, ON 05/25/2024 12:58:[address] [place] [address] 05-24-2024 NoteS PROGRESS NOTE Assessment and Plan Shauna Rainey is a 28 y.o. female patient of Kinjal Cleveland MD with history of depression presented to [facility] on 05/23/2024 with shortness of breath, hypoxia and tachycardia. Patient transferred from [facility] ER. Acute hypoxic respiratory failure, resolved Community-acquired pneumonia, Rt basilar lobe Failed outpatient treatment CXR reviewed showed perihilar opacities considering superimposed infection. CT PE was negative for PE, showed patchy right basilar airspace opacity Patient was hypoxic when she presented to the [place] ER S/p 7-day of doxycycline as an [...] affect AUTHENTICATED BY CASSANDRA DAVID, ON 05/24/2024 09:56:40[facility] 05-23-2024 NoteHMS HISTORY AND PHYSICAL -- [facility] Patient Name: Shauna Rainey DOB: 1995 MR #: [id number] Admit Date: 05/23/2024 Physicians: Kinjal Cleveland MD (Family); Mariela Schulz DO (Referring) Shauna Rainey is a 28 y.o. female patient of Kinjal Cleveland MD with history of depression presented to [facility] on 05/23/2024 with shortness of breath, hypoxia and tachycardia. Patient transferred from [facility] ER. Acute hypoxic respiratory failure, resolved Community-acquired pneumonia Failed outpatient treatment CXR reviewed showed perihilar opacities considering superimposed infection. CT PE was negative for PE, showed patchy right basilar airspace opacity Patient was hypoxic when she presented to the [place] ER S/p 7-day of doxycycline as an outpatient Elevated D-dimer 9 days ago Admit to [facility] with telemetry Continue respiratory monitoring, keep [...] hospital or ED yes -- care site [facility] Quality Measures DVT Prophylaxis: lovenox [place] Catheter: [...] MD with history of depression presented to [facility] on 05/23/2024 with shortness of breath, hypoxia and tachycardia. Patient transferred from [facility] ER. Patient just finished 7-day course of [...] affect AUTHENTICATED BY NATALYA SOSA, ON 05/23/2024 15:10:25[facility]10-14-[facility] Emergency department Note* Mariela Schulz, DO [...] will require admission and be transferred to [place]. History provided by: Patient Patient History Past [...] Roberto Ortiz 05/23/2024 1:56 AM Dictation workstation: [id number] XR chest 2 views Final Result Mild increased perihilar opacities suggestive of developing interstitial edema. Superimposed infection not excluded. Clinical correlation and continued short-term follow-up is advised. MACRO: None Signed by: Neva Perdomo 05/22/2024 10:31 PM Dictation workstation: [id number] Labs Reviewed CBC WITH AUTO DIFFERENTIAL - [...] unspecified part of lung No data recorded [place] Coma Scale Score: 15 (05/22/24 2151 : Lana Tamayo RN) Medical Decision Making Transfer to [facility] Procedure Procedures Mariela Schulz DO 05/23/24225 documented in this [facility] Work Phone: 1(593) 499-821710-14-2024 Physician Emergency department Note* Mariela Schulz DO [...] will require admission and be transferred to [place]. History provided by: Patient Patient History Past [...] Roberto Ortiz 05/23/2024 1:56 AM Dictation workstation: [id number] XR chest 2 views Final Result Mild increased perihilar opacities suggestive of developing interstitial edema. Superimposed infection not excluded. Clinical correlation and continued short-term follow-up is advised. MACRO: None Signed by: Neva Perdomo 05/22/2024 10:31 PM Dictation workstation: [id number] Labs Reviewed CBC WITH AUTO DIFFERENTIAL - [...] unspecified part of lung No data recorded [place] Coma Scale Score: 15 (05/22/241 : Lana Tamayo RN) Medical Decision Making Transfer to [facility] Procedure Procedures Mariela Schulz DO 05/23/24225 [facility] Work Phone: 1(177) 471-231312-13-2021 History of Present illness Narrative* Era Giordano CNP - 07/21/2021 2:05 PM EST Associated Order(s): LG Jt Injection/Arthrocentesis: L glenohumeral LG Jt Injection/Arthrocentesis: L glenohumeral Performed by: Era Giordano CNP Authorized by: Era Giordano CNP CPT 71769 - Large Joint Arthrocentesis: Consent given by: [...] well with no immediate complications * Era Gioradno CNP - 07/21/2021 2:05 PM EST [facility] [address] [facility] [address] [facility] [id number] Chief Complaint Patient presents with Left Shoulder [...] with the treatment plan. documented in this [id number] History of Present illness Narrative* Kinjal Cleveland [...] effects of the medications. 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 YES: This patient delivered between 89n0v-64s3k for the following acceptable indication(s) for delivery: [...] Information for the patient's : Vinicius More [[id number]] male Weight: 4 lb 9 oz (2.07 kg) Apgars: Information for the patient's : Vinicius More [[id number]] One Minute : 6 Five Minute : 8 Course: Uncomplicated yes : Male infant Blood Type/Rh: A POS Antibody Screen: Antibody Screen Date Value Ref Range Status 01/16/2021 NEG NA Final Rubella: No results found for: RUBELLAIGG Contraception: will discuss with her [place] provider : yes VTE Prophylaxis: Not Indicated Meds: Shauna More Home Medication Instructions CHENTE:[id number] Printed on:01/19/21 1320 Medication Information acetaminophen (TYLENOL) [...] Venita Castaneda MD on 01/19/2021 at 1:20 [facility]06-13-2021 Hospital Discharge instructions* Instructions* Venita Castaneda MD - 01/19/2021 Images from the original note were not included. After Your Delivery (the Period): Your Care Instructions Thank you for allowing us to care of you at [facility]. This time can be one of many [...] over the next few weeks. Bleeding may fiber picker and then decrease again around 7-10 [...] avoid constipation you may take a mild xijy-lmi-pisbtdb stool softener (such as colace) as recommended [...] clean your hands with an alcohol-based hand low raw sugar cutter that contains at least 60% alcohol. Clean your hands often Wash your hands often with soap and water for at least 20 seconds, especially after blowing your nose, coughing, or sneezing; going to the bathroom; and before eating or preparing food. If soap and water are not readily available, use an alcohol-based hand low raw sugar cutter with at least 60% alcohol, covering all [...] healthcare provider to call the local or [facility] health department. Persons who are placed underactive [...] isolation precautions should be made on a sndy-bd-zqbo basis, in consultation with healthcare providers and [facility] health departments. Information on COVID-19 for all [...] respiratory tract signs and symptoms. Ways to [place] with Anxiety & Stress It is normal [...] an illness that was first found in [facility], in July 2019. It has since spread [...] seen in people before. This virus spreads khdatr-va-rzjbhy through droplets from coughing and sneezing. It [...] water aren't available, use an alcohol-based hand low raw sugar cutter. Call 911 anytime you think you may [...] of: November 08, 2019 Content Version: 12. [employer]. Care instructions adapted under license by your healthcare professional. If you have questions about a medical condition or this instruction, always ask your healthcare professional. [employer] disclaims any warranty or liability for your use of this information. General Recommendations for Routine Cleaning and Disinfection of Households Community members can practice routine cleaning of frequently touched surfaces (for example: tables, doorknobs, light switches, handles, desks, toilets, faucets, sinks) with household physicist acoustics and EPA-registered disinfectants that are appropriate for [...] appropriate. These supplies include tissues, paper towels, physicist acoustics and EPA-registered disinfectants (see list link at [...] be used for other purposes. Consult the lard maker's instructions for cleaning and disinfection products used. [...] used if appropriate for the surface. Follow lard maker's instructions for application and proper ventilation. Check [...] o Products with EPA-approved emerging viral pathogens [facility] hospitalpdf iconexternal icon are expected to be effective against COVID-19 based on data for harder to kill viruses. Follow the lard maker's instructions for all cleaning and disinfection products (e.g., concentration, application method and contact time, etc.). Soft (porous) surfaces such as carpeted floor, rugs, and drapes Remove visible contamination if present and clean with appropriate physicist acoustics indicated for use on these surfaces. After cleaning: Launder items as appropriate in accordance with the lard maker's instructions. If possible, launder items using the [...] items as appropriate in accordance with the lard maker's instructions. If possible, launder items using the warmest appropriate water setting for the items and dry items completely. Dirtylaundry from an ill person can be washed with other people's items. o Clean and disinfect clothes hampers according to guidance above for surfaces. If possible, consider placing a jute bag cutting machine operator that is either disposable (can be thrown away) or can be laundered. CDC has a list of EPA approved cleaning products on their website - https://www.cdc.gov/coronavirus/ 2019-ncov/community/home/cleaning-disinfection.html https://www.ConsumerBell.Ziarco/Nuavo-Jcaiyklwhma-Xvhbfjlx-Products-List.pdf [employer] Stores with delivery and fiber picker services: [employer]: Free fiber picker at locations Delivery is $12.95 a month Website - [employer] [place]: Crew Manager $2.95 (1st order is free) Delivery is $14.95 Website [employer] [place]: superintendent seed mill is free Delivery is $5.95 Website [employer]: superintendent seed mill is $4.95 Delivery is $9.95 Website [employer]: superintendent seed mill is $4.95 Delivery is $9.95 [employer] Market: Can be ordered for delivery and fiber picker with [employer] Website - www.9tong.com [employer]: Free deliver for first 3 orders of $35 or more Website aldinVoq Will deliver from [employer], [employer], [employer], and [employer]. Annual membership is $99 Monthly membership is $14 documented in this [facility] Work Phone: 1(251) 266-343006-13-2021 Hospital course Narrative* Venita Castaneda MD - 01/19/2021 1:20 PM EDT Images from the original note were not included. 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 YES: This patient delivered between 11z4y-70b9g for the following acceptable indication(s) for delivery: [...] Information for the patient's : Vinicius More [[id number]] male Weight: 4 lb 9 oz (2.07 kg) Apgars: Information for the patient's : Vinicius More [[id number]] One Minute : 6 Five Minute : 8 Course: Uncomplicated yes : Male infant Blood Type/Rh: A POS Antibody Screen: Antibody Screen Date Value Ref Range Status 01/16/2021 NEG NA Final Rubella: No results found for: RUBELLAIGG Contraception: will discuss with her [place] provider : yes VTE Prophylaxis: Not Indicated Meds: Shauna More Home Medication Instructions CHENTE:[id number] Printed on:01/19/21 1320 Medication Information acetaminophen (TYLENOL) [...] 01/19/2021 at 1:20 PM documented [facility] this [facility] Work Phone: 1(910) 891-466406-13-2021 History of Present illness Narrative* Criselda Walker [...] of care. Venita Castaneda MD * Evette Vazqeuz-CASIE Rojas - 01/18/2021 12:07 PM EDT Pt [...] to perform preop count documented in this [facility] Work Phone: Consult note Author Bonnie Ray [facility] Note Date/Time February 13, 2025 8:31a [facility] Medical Records Department [address] [place] [address] Anesthesia Postop Eval I 02/13/25 0830 MR#: [id number] Acct: [id number] Name: SHAUNA RAINEY Rep #:[id number] : 1995 29 From: Bonnie KERR PCP: YENNI Hartman Status:REG SDC Y Race: C Location: [place] [address] Anesthesia: Postop Eval I Current Vital Signs [...] CRNA Cosigner Signature: Date CC: ~ Signed [facility] Work Phone: Discharge summary Author Tamiko Figueroa [facility] Note Date/Time February 13, 2025 8:25a [facility] Medical Records Department [address] [place] [address] Instructions for Home/Discharge Instructions 02/13/25823 MR#: [id number] Acct: [id number] Name: SHAUNA RAINEY Rep #:[id number] : 1995 29 From: Tamiko Figueroa MD PCP: YENNI Hartman Status:REG VTC Discharge Instructions Procedure Port-A-Cath Diet Discharge Diet: [...] Care Provider: Ryan Cochran Instructions Print Language: Monegasque Discharge Orders/Prescriptions Prescriptions: New oxycodone 5 mg [...] Figueroa MD CC: YENNI Hartman ~ Signed [facility] Work Phone: Evaluation note* Diagnosis Umbilical abnormality Congenital anomaly, unspecified Status post emergency section Other postprocedural status documented in this encounter [facility] Work Phone: Evaluation note* Diagnosis [...] of lung- Primary documented in this encounter [facility] Work Phone: Evaluation note* Diagnosis Encounter to [...] with status migrainosus documented in this encounter [facility] Work Phone: Evaluation note* Diagnosis Mass of upper outer quadrant of left breast- Primary Class 1 obesity due to excess calories without serious comorbidity with body mass index (BMI) of 30.0 to 30.9 in adult Fibrocystic change of breast, left documented in this encounter [facility] Work Phone: Evaluation note* Diagnosis Mass of upper outer quadrant of left breast documented in this encounter [facility] Work Phone: Evaluation note* Diagnosis Mass of upper outer quadrant of left breast documented in this encounter [facility] Work Phone: Evaluation note* Diagnosis Abnormal mammogram of left breast Mass of multiple sites of left breast documented in this encounter [facility] Work Phone: Evaluation note* Diagnosis Abnormal mammogram of left breast Mass of multiple sites of left breast documented in this encounter [facility] Work Phone: Evaluation note* Diagnosis Onset Date Resolution Status Admit Date HER2-positive carcinoma of l eft breast acute January 23, 2025 9:48am Invasive ductal carcinoma of left breast acute January 23, 2025 9:48am 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 deleted January 23, 2025 9:48am [facility] Work Phone: Evaluation note* Diagnosis Infiltrating ductal carcinoma of left breast- Primary Depression, major, recurrent, mild Class 1 obesity due to excess calories without serious comorbidity with body mass index (BMI) of 31.0 to 31.9 in adult documented in this encounter [facility] Work Phone: Hospital Discharge instructionsAmbulatory Orders* Genetic Counseling, [facility] Location: None Selected * Oncology Location: None Selected * Plastic surgery Location: None Selected [facility] Work Phone: Reason for visit Narrative* Imaging (Routine) - Authorized Specialty Diagnoses / Procedures Referred By Ilsa t Referred To Contact Radiology Diagnoses Mass of upper outer quadrant of left breast Procedures BI US breast limited left Ryan Cochran PA-C [address] [place] [address] Phone: tel: fax: Referral ID Status Reason Start Date Expiration Date Visits Requested Visits Authorized [id number] Authorized Perform Procedure 01/04/2025 01/04/2026 1 1 [facility] Work Phone: reason for visit Narrative* Imaging (Routine) - Pending Review Specialty Diagnoses / Procedures Referred By Ilsa t Referred To Contact Radiology Diagnoses Mass of upper outer quadrant of left breast Procedures BI mammo bilateral diagnostic tomosynthesis BI mammo left diagnostic tomosynthesis Ryan Cochran PA-C [address] [place] [address] Phone: tel: fax: Referral ID Status Reason Start Date Expiration Date Visits Requested Visits Authorized [id number] Pending Review Perform Procedure 01/04/2025 01/04/2026 1 1 [facility] Work Phone: reason for visit Narrative* Imaging (Routine) - Pending Review Specialty Diagnoses / Procedures Referred By Ilsa t Referred To Contact Radiology Diagnoses Abnormal mammogram of left breast Mass of multiple sites of left breast Procedures BI US guided breast localization and biopsy left BI stereotactic guided breast left localization and biopsy Ryan Cochran PA-C [address] [place] [address] Phone: tel: fax: Referral ID Status Reason Start Date Expiration Date Visits Requested Visits Authorized [id number] Pending Review Perform Procedure 01/10/2025 01/10/2026 1 1 [facility] Work Phone: reason for visit Narrative* Imaging (Routine) - Authorized Specialty Diagnoses / Procedures Referred By Contac t Referred To Contact Radiology Diagnoses Abnormal mammogram of left breast Mass of multiple sites of left breast Procedures BI breast biopsy clip imaging Ryan Cochran PA-C [address] [place] [address] Phone: tel: fax: Referral ID Status Reason Start Date Expiration Date Visits Requested Visits Authorized [id number] Authorized Perform Procedure 01/10/2025 01/10/2026 1 1 [facility] Work Phone: Instructions * Patient Instructions - [...] taking a prescription pain medicine, take an rmfx-exc-udxijkk medicine, such as acetaminophen (Tylenol), ibuprofen (Advil, [...] Log into your personal health record on https://ImmunoCellular Therapeuticst.Womai and enter X558 in the Education box to learn more about Ear Infection (Otitis Media): Care Instructions. Current as of: March 06, 2016 Content Version: 11.2 7375-8633 [employer]. Care instructions adapted under license by your healthcare professional. If you have questions about a medical condition or this instruction, always ask your healthcare professional. [employer] disclaims any warranty or liability for your [...] FoundDocuments on File Type Date Recorded Patient Database Specialist Expl anation Advance Directives and Livin g Will 01/04/2019 6:57 PM Documents on File Type Date Recorded Patient Database Specialist Expl anation Advance Directives and Livin g Will 10/27/2020 8:17 AM Latest Code Status on File Code Status Date Activated Date Inactivated Comments Full Code 01/17/2021 5:25 AM Full Code 01/16/2021 9:58 PM 01/17/2021 5:25 AM Advance Directive Response Recorded Date/ Time Do you have a Healthcare Power of Clinical Data Management Manager? No February 12, 2025 2:05pm Discharge Instructions * Instructions* Dorina Macias RN - 01/04/2019 Follow up with your [facility]RE [employer]ER in the morning. May follow up with urologist. Drink 8-10 large glasses of ice water a day. Empty bladder every 2 hours. * Attachments The following attachments cannot be sent through Care Everywhere. * : Back Pain (Monegasque) * : Weeks 18 to 22 (Monegasque) * : When to Call (After 20 Weeks): General Info (Monegasque) documented in this encounter* Attachments The following attachments cannot be sent through Care Everywhere. * Food Poisoning (Monegasque) * Dehydration (Monegasque) * : Weeks 26 to 30 (Monegasque) documented in this encounter History of Present Illness * Herminio Mccullough MD - 01/04/2019 9:06 PM EDT Observation Note Patient Identification: Name: Shauna RaineyAge: 23 y.o.Sex: femaleDOB: 1995MRN: [id number] Chief Complaint: Chief Complaint Patient presents with [...] g 0 Allergies: Allergies Allergen Reactions Tree Pollen-Surinamese Elm Itching Tree Pollen-Red Maple Itching Immunizations: [...] Franklin01/05/2019 documented in this encounter* Era Giordano, HEADER SETUP OPERATOR - 10/02/2019 8:26 AM EST [facility] [address] [facility] [address] [facility] [phone] Chief Complaint Patient presents with Left Arm [...] for further review. Allergies Allergen Reactions Tree Pollen-Surinamese Elm Itching Tree Pollen-Red Maple Itching Current [...] file Gets together: Not on file Attends roman catholic service: Not on file Active member of [...] Hospital Course Note Send Summary: Discharge [facility] Providers: Provider RoleProvider Name Brigid Butcher James [...] at Discharge: .Home Vital Signs: T PRBPSpO2 [id number]% Date/Time05/13 4: 4: 4:001 4:001 4:00 Range(36.6C [...] Date HER2-positive carcinoma of left breast J [facility] 2024 9:48am Invasive ductal carcinoma of left breast January 23, 2025 9:48am 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 J [facility] 2024 9:48am Chief Complaint Admit Date BREAST CANCER- DISCUSS SX January 23 9:48am INVASIVE DUCTAL CARCIMONA January 25 9:45am BREAST CA January 29, 2025 3:08 pm Reason for Visit Admit Date HER2-positive carcinoma of left breast J [facility] 2024 9:48am Invasive ductal carcinoma of left breast January 23, 2025 9:48am 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 J [facility] 2024 9:48am Axillary lymphadenopathy January 29, 2025 3:08pm HER2-positive carcinoma of left breast J [facility] 2024 3:08pm Anemia January 29, 2025 3:08 [...] Date HER2-positive carcinoma of left breast J [facility] 2024 9:48am Invasive ductal carcinoma of left breast January 23, 2025 9:48am 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 J [facility] 2024 9:48am Axillary lymphadenopathy January 29, 2025 3:08pm HER2-positive carcinoma of left breast J [facility] 2024 3:08pm Anemia January 29, 2025 3:08 pm Encounter for breast reconstruction foll owing mastectomy February 08, 2025 1:55pm HER2-positive carcinoma of left breast J [facility] 2024 1:55pm Invasive ductal carcinoma of [...] section and content) DATE CREATED AUTHOR 01/28/2018 [facility] DATE CREATED AUTHOR AUTHOR'S ORGANIZ ATION 05/24/2019 [facility] DATE CREATED AUTHOR AUTHOR'S ORGANIZ ATION 06/10/2019 [facility] DATE CREATED AUTHOR AUTHOR'S ORGANIZ ATION 06/17/2019 [facility] DATE CREATED AUTHOR AUTHOR'S ORGANIZ ATION 01/31/2021 [facility] DATE CREATED AUTHOR AUTHOR'S ORGANIZ ATION 05/24/2024 [facility] DATE CREATED AUTHOR AUTHOR'S ORGANIZ ATION 05/24/2024 [facility] DATE CREATED AUTHOR AUTHOR'S ORGANIZ ATION 06/04/2024 [facility] DATE CREATED AUTHOR AUTHOR'S ORGANIZ ATION 07/06/2024 [facility] DATE CREATED AUTHOR AUTHOR'S ORGANIZ ATION 01/31/2025 [facility] DATE CREATED AUTHOR AUTHOR'S ORGANIZ ATION 02/01/2025 [facility] DATE CREATED AUTHOR AUTHOR'S ORGANIZ ATION 02/16/2025 [facility] DATE CREATED AUTHOR AUTHOR'S ORGANIZ ATION 02/20/2025 [facility] Reason for Visit (unrecogniz ed section and [...] has an anterior placenta. ED PROVIDER NOTE [facility] NAME: Shauna Rainey AGE: 24 y.o. : 1995 VISIT DATE: 10/27/2020 CSN: [id number] PCP: Elton Bauer MD Chief Complaint Patient presents with Emesis Chief complaint nausea vomiting History of present illness this is a 24-year-old female who is 22 weeks . States that she had a sandwich from [employer] approximately 12 hours ago subsequently developed nausea [...] file Gets together: Not on file Attends roman catholic service: Not on file Active member of club or organization: Not on file Attends meetings of clubs or organizations: Not on file Relationship status: Not on file Other Topics Concern Not on file Social History Narrative Not on file Previous Medications Medication Sig [DISCONTINUED] norethindrone (MICRONOR) 0.35 mg tablet Take 1 tablet by mouth daily. Allergies Allergen Reactions Tree Pollen-Surinamese Elm Itching Tree Pollen-Red Maple Itching Review [...] 1. Elton Bauer MD. Specialty: Family Medicine [address] [place], [place] [id number] Contact information for after-discharge care Follow-up information [...] - Reason: Loss of IV access)2099 (Due) Qglspap-Hqrole-Poiud Pertussis (BOOSTRIX) injection 0.5 mL 0.5 mL, [...] Gianna Rabago, RN) 0431 (Given - Provider: Gianna Rabago, RN)1031 (Given - Provider: Theresa Ruiz, [...] Care Teams (unrecognized sec tion and content) Nurse Staff Community Health Relationship Specialty Start Date End Date Kinjal Cleveland MD [address] [address] PCP - General Family Medicine 07/04/21 Nurse Staff Community Health Relationship Specialty Start Date End Date Kinjal Cleveland MD [address] [address] PCP - General Family Medicine 07/04/21 Nurse Staff Community Health Relationship Specialty Start Date End Date Kinjal Cleveland MD [address] [address] PCP - General Family Medicine 07/04/21 Nurse Staff Community Health Relationship Specialty Start Date End Date Kinjal Cleveland MD [address] [address] PCP - General Family Medicine 07/04/21 Nurse Staff Community Health Relationship Specialty Start Date End Date Kinjal Cleveland MD [address] [address] PCP - General Family Medicine 05/22/24 Nurse Staff Community Health Relationship Specialty Start Date End Date Kinjal Cleveland MD [address] [address] PCP - General Family Medicine 05/22/24 Nurse Staff Community Health Relationship Specialty Start Date End Date Kinjal Cleveland MD [address] [place] [id number] PCP - General Family Medicine 05/22/24 Nurse Staff Community Health Relationship Specialty Start Date End Date Ryan Cochran PA-C [address] [place] [phone] PCP - General Internal Medicine 01/04/25 Nurse Staff Community Health Relationship Specialty Start Date End Date Ryan Cochran PA-C [address] [place] [id number] PCP - General Internal Medicine 01/04/25 Nurse Staff Community Health Relationship Specialty Start Date End Date Ryan Cochran PA-C [address] [place] [address] PCP - General Internal Medicine 01/04/25 Team Status: Active Member Role Status Dates YENNI Nunez Primary Care Provider Active Team Status: Inactive Member Role Status Dates Ryan Perham PA, PA Primary Care Provider Active Start: [...] January 25, 2025 End: January 25, 2025 Nurse Staff Community Health Relationship Specialty Start Date End Date Ryan Cochran PA-C [address] [place] [address] PCP - General Internal Medicine 01/04/25 Team Status: Active Member Role/Relationship Status Dates Ryan Cochran PA, PA Primary Care Provider Active Team Status: Inactive Member Role/Relationship Status Dates Ryan Perham PA, PA Primary Care Provider Active Start: [...] Status: Inactive Member Role/Relationship Status Dates Ryan Perham PA, PA Primary Care Provider Active Start: [...] Status: Active Member Role/Relationship Status Dates Ryan Perham PA, PA Primary Care Provider Active Start: [...] Active Start: February 14, 2025 Sheila Eubanks GEOSPATIAL ENGINEER, GEOSPATIAL ENGINEER-C Attending Provider Active Start: February 14, 2025 Sheilalora Eubanks GEOSPATIAL ENGINEER, GEOSPATIAL ENGINEER-C Referring Provider Active Start: February 14, 2025 Team Status: Inactive Member Role/Relationship Status Dates Ryan Perham PA, PA Primary Care Provider Active Start: February 14, 2025 End: February 14, 2025 Sheilalora Eubanks GEOSPATIAL ENGINEER, GEOSPATIAL ENGINEER-C Attending Provider Active Start: February 14, 2025 End: February 14, 2025 Sheila Eubanks GEOSPATIAL ENGINEER, GEOSPATIAL ENGINEER-C Referring Provider Active Start: February 14, 2025 [...] BE BASED ON THE PRIMARY CLINICAL RECORDS. [facility]. provides no warranty or guarantee of the accuracy or completeness of information in this document.
--- NOTE | 2025-02-21 06:38 | CT_ITS ---
PROCEDURE: CT CHEST, ABD, PEL W/CONTRAST 02/21/2025 REASON FOR EXAM: BREAST CANCER STAGING TECHNIQUE: Chest, abdomen and pelvis CT with intravenous contrast. Coronal and Sagittal reconstruction series were provided. One or more dose reduction techniques were used (e.g., Automated exposure control, adjustment of the mA and/or kV according to patient size, use of iterative reconstruction technique. PATIENT PREPARATION: Per protocol ORAL CONTRAST TYPE: Readi-Cat. CONTRAST: Isovue 370 VOLUME: 95mL RADIATION DOSE SUMMARY: CTDlvol: 11.5 mGy DLP: 1020.66 mGycm COMPARISON: None FINDINGS: CT CHEST: Hardware: A right-sided port a catheter is seen with the tip in the superior vena cava. Postsurgical changes are seen in the left breast. There is a 1.3 cm nodular density in the inferior medial portion of the left breast. Lymph nodes: No evidence of hilar or mediastinal lymphadenopathy. Heart and Vasculature: The heart is nonenlarged. No coronary artery calcification is seen. Lungs and Airways: Unremarkable Pleura: Unremarkable Bones: Unremarkable CT ABDOMEN/PELVIS: Liver: Normal size. No mass. Gallbladder: Unremarkable Spleen: Normal size. Pancreas: Normal size without evidence of mass surrounding inflammation or ductal dilation. Adrenals: Unremarkable Kidneys: Normal renal sizes. No hydronephrosis. Bladder: Unremarkable Reproductive Organs: Normal uterine size and contour. There is a 2.2 cm cyst in the left ovary. Small follicles are seen in the right ovary. Bowel: Unremarkable Appendix: Unremarkable Lymph nodes: Unremarkable. Vasculature: The abdominal aorta and IVC are normal. Peritoneum / Retroperitoneum: Small umbilical hernia containing fat. Bones: Unremarkable CT/CT Chest, Abd, Pel w/Contrast IMPRESSION: Small umbilical hernia containing fat. Follicles are seen in both ovaries more prominent on the left side. Reading Location: [place] [address]
== END | disposition home or self-care (01) ==
LOC: CT 06:34
PROVIDERS: PCP Physician Assistant Medical; Referring Provider Nurse Practitioner Family; Visit Provider Nurse Practitioner Family
DX: C50.912 Malignant neoplasm of unspecified site of left female breast (principal); R59.0 Localized enlarged lymph nodes; Z17.31 Human epidermal growth factor receptor 2 positive status
CPT/HCPCS: 71260; 74177; Q9967

== ENCOUNTER → 2025-05-31 | Outpatient (CLI) | payer BC, SELFPAY ==
--- NOTE | 2025-05-31 13:46 | ECHOLONC_ITS ---
Reason For Study Reason For Study: [employer] G[employer]r Drug Use Procedure This was a limited 2D transthoracic echocardiogram. Myocardial strain analysis was performed in this exam to aid in the assessment of cardiac function. Exam performed in department. Left Ventricle Normal LV size. The global longitudinal strain = -17.8 % (normal). The left ventricular ejection fraction is 65 %. No regional wall motion abnormalities noted. Right Ventricle Normal RV size. Normal systolic function. Atria Normal left atrium. Normal right atrium. Catheter is seen in the right atrium. Mitral Valve Normal mitral valve. Trivial mitral valve insufficiency. Tricuspid Valve Normal tricuspid valve. Mild (1+) tricuspid valve insufficiency. Aortic Valve Trisinus/trileaflet aortic valve. Pulmonic Valve Normal pulmonic valve. Great Vessels Normal aortic root. The pulmonary artery is normal size. Inferior vena cava collapse with respiration. Pericardium/Pleural No pericardial effusion. MMode/2D Measurements & Calculations LVIDd: 4.8 cm IVSd: 0.94 cm LAV(MOD-sp4): 19.0 ml LVIDs: 3.1 cm LVPWd: 0.82 cm RVDd: 3.2 cm FS: 36.3 % LVAd ap4: 25.3 cm2 SV(MOD-sp4): 45.5 ml SV(sp4-el): 48.3 ml LVLd ap4: 7.3 cm SI(MOD-sp4): 26.1 ml/m2 EDV(MOD-sp4): 72.1 ml EDV(sp4-el): 74.4 ml LVAs ap4: 13.6 cm2 LVLs ap4: 6.0 cm ESV(MOD-sp4): 26.6 ml ESV(sp4-el): 26.2 ml EF(MOD-sp4): 63.1 % EF(sp4-el): 64.9 % LA A4 area: 10.5 cm2 RA A4 area: 9.7 cm2 Doppler Measurements & Calculations TR max zachary: 188.5 cm/sec TR max P.6 mmHg ECHO/ONC Echo, Limited Study Interpretation Summary The left ventricular ejection fraction is 65 %. Normal LV size. The global longitudinal strain = -17.8 % (normal). Catheter is seen in the right atrium Ordering Physician: Sheila Eubanks Referring Physician: Sheila Eubanks Performed By: Clyde Deal RCS
== END | disposition home or self-care (01) ==
LOC: CVS 13:44
PROVIDERS: PCP Physician Assistant Medical; Referring Provider Nurse Practitioner Family; Visit Provider Nurse Practitioner Family
DX: Z51.81 Encounter for therapeutic drug level monitoring (principal); Z79.899 Other long term (current) drug therapy
CPT/HCPCS: 93308; 93356

== ENCOUNTER → 2025-06-28 | Outpatient (CLI) | payer BC, SELFPAY ==
--- NOTE | 2025-06-28 13:27 | MRI_ITS ---
PROCEDURE: BREAST BILATERAL W/O AND W 06/28/2025 REASON FOR EXAM: BREAST CANCER. Known left breast cancer. Breast MRI to evaluate for response to treatment. TECHNIQUE: Procedure Code: [id number] Modality: MR Procedure: BREAST BILATERAL W/O AND W CONTRAST: 15 mL Clariscan COMPARISON: Prior breast exams were compared FINDINGS: TISSUE DENSITY: The breasts are heterogeneously dense, which may obscure small masses. Background Parenchymal Enhancement: Mild RIGHT Breast: No suspicious mass or non-mass enhancement. LEFT Breast: Interval resolution of previously seen multiple irregular masses in the left breast. There is persistent left nipple and skin retraction of the anterior left breast (series 260/image 197). No new suspicious findings in the left breast. Other Findings: No suspicious axillary or internal mammary lymph nodes. MRI/Breast Bilateral W/O and W IMPRESSION: Interval resolution of previously seen multiple irregular masses in the left br east consistent with known malignancy and compatible with good response to treatment. No new suspicious findings in the left breast. Persistent left nipple and skin retraction of the anterior left breast. Recommend continued surgical/oncologic al management. No MRI evidence of malignancy in the right breast. OVERALL FINAL ASSESSMENT BI-RADS 6: KNOWN BIOPSY-PROVEN MALIGNANCY. RECOMMENDATION: OTHER as above. Reading Location: [id number]
== END | disposition home or self-care (01) ==
LOC: MRI 13:21
PROVIDERS: PCP Physician Assistant Medical; Referring Provider Surgery; Visit Provider Surgery
DX: Z12.31 Encounter for screening mammogram for malignant neoplasm of breast (principal)
CPT/HCPCS: 77049; A9575; A4216; C8908

== ENCOUNTER 2025-07-25 11:48 | Observation (INO) | payer BC, SELFPAY ==
--- NOTE | 2025-07-11 12:04 | PAT.ANE_ITS ---
Pre-Assessment Diagnosis/Proposed Procedure Planned Operative Procedure(s): (B) Left Mastectomy w/SLN bx, blue dye & radiotracer, poss ax dissection & Right prophylactic mastectomy. 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 When Was Last Pacemaker Check QUESTION #4 FULL TEXT: You/Your Family Experience fever (hyperthermia) with Anesthesia Last Oral Intake Last Oral intake: Last Oral Intake NPO since Meds taken in AM with sips of water? Meds patient instructed to take am of surgery PONV PONV - floral designer salesperson: PONV - floral designer salesperson Female Yes 07/11/25 10:18 HX of Motion Sickness No 07/11/25 10:18 HX of N/V After Surgery No 07/11/25 10:18 Non-Smoker Yes 07/11/25 10:18 Duration of Surgery greater Yes 07/11/25 10:18 than 60 minutes Number of Risk Factors 3 07/11/25 10:18 PONV Score Moderate Risk 07/11/25 10:18 Height & Weight Height & Weight: Anesthesia: Height & Weight Height 5 ft 06/20/25 08:28 Respiratory Assessment Respiratory Assessment - floral designer salesperson: Respiratory Tract Infection Hx - floral designer salesperson Hx Respiratory Tract Infection No 07/11/25 10:18 STOP Sleep Apnea STOP Sleep Apnea - floral designer salesperson: STOP Sleep Apnea - floral designer salesperson Hx Hypertension No 07/11/25 10:18 Hx Sleep Apnea No 07/11/25 10:18 CPAP BIPAP Do you snore loudly (louder No 07/11/25 10:18 than talking or can be heard Do you often feel tired/ No 07/11/25 10:18 fatigued/ sleepy during daytime? Has anyone observed you stop No 07/11/25 10:18 breathing during sleep? STOP Results Negative 07/11/25 10:18 QUESTION #5 FULL TEXT : Do you snore loudly (louder than talking or can be heard through closed doors)? 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 Specify any problems Hx of Preganancy in last 3 N/A 07/11/25 10:18 Months Nurse Filling Out Transfusion NBUCHER 07/11/25 10:18 & Questions: Date: 07/11/25 07/11/25 10:18 Time: 10:19 07/11/25 10:18 Patient unable to answer at this time (ie. confused, unrespo /Reproduction History /Reproductive History - floral designer salesperson: /Reproductive Hx- floral designer salesperson Hx Now Gestational Age (in weeks): EDC: Hx Hx Para Hx Section SAB No 07/11/25 10:18 Does the father of the baby or his family experience fever w Father of the baby Malignant Hypertension history comment [facility] Medical History (Updated 07/11/25 @ 10:21 by Yoli Segura) Cancer Breast cancer History of chemotherapy Port-A-Cath in place Diarrhea due to drug GERD (gastroesophageal reflux disease) Mucositis Sore throat Cough Encounter for antineoplastic chemotherapy and immunotherapy Encounter for education Wears glasses Non-smoker Shortness of breath on exertion History of echocardiogram Anemia Axillary lymphadenopathy Home Medications ?Medication ?Instructions ?Recorded ?Last Taken ?Type NK 07/11/25 Unknown History Allergy/AdvReac Type Severity Reaction Status Date / Time No Known Allergies Allergy Verified 07/11/25 10:16 Family History Other No pertinent family history Surgical History History of wisdom tooth extraction delivery delivered Social History Smoking Status: Never smoker alcohol intake: never Audit: Pertinent Findings Pertinent Findings Echo (EF%) pertinent findings: 05/31/2025. EF 65%. Normal size function. Recommendation Anesthesia Recommendation Anesthesia recommendation: OPTIMIZED for anesthesia
[2025-07-25] VITALS (17 sets, daily range): BP systolic 96–112; BP diastolic 52–69; PULSE 87–111; RESP 14–18; TEMP 36.1–37; O2SAT 88–99; BMI 32.7; BMI 32.8
--- OUTSIDE RECORDS SUMMARY | 2025-07-25 05:59 | XMS RPT_ITS | CCD ---
Author Organization [facility] Inform ion Partnership [facility] Care Team Providers Care Clinic Licensed Practical Nurse Name Role Phone Elton Bauer Unavailable Unavailable Primary Care Provider Unavailras Cleveland MD, Kinjal Isaac Primary Care Provide r KEYSHAWN YBARRA Attending Unava ilable KINJAL CLEVELAND Primary Care Unavail able Chika MATOS, Kinjal Gray Primary [facility] Provide r KINJAL [place] Primary Care Unavail able CASSANDRA DAVID Attending Unavailable NATALYA SOSA Admitting Unavailable MARIELA SCHULZ Referring Unavailable KINJAL CLEVELAND Attending Unavail able KINJAL C[place] Primary Care Unavail able Ryan Cochran PA-C Primary Care Provider Ryan Pike Primary Care Provider Ryan Pike Referring Provider [phone]. Tamiko Mccarthy MD Attending Provider Dr. Tamiko Mccarthy MD Referring Provider Dr. Ara Franklin MD Attending Provider Dr. Ara Franklin MD Referring Provider RYAN COCHRAN Attending Unavailable KINJAL CLEVELAND Primary Care Unavail able RYAN COCHRAN Attending Unavailable KINJAL C[place]AND Primary Care Unavail able RYAN COCHRAN Attending Unavailable RYAN COCHRAN Primary Care Unavailable [place] Dr. Jayjay MATOS Attending Provider Scarlett MATOS, Dr. Rodriguez Attending Provider Dr. Tamiko Mccarthy MD Other Provider Raimundo [employer] PLANT OPERATOR-C, Sheila Attending Provider Raimundo [employer] PLANT OPERATOR-C, Sheila Referring Provider Hong MATOS, Brigid Unavailable Karon MATOS, Radha Unavailable Uzma Mccallum CGC Unavailable Unavailable [place] PA-C, Ryan B Primary Care Provider UZMA MCCALLUM Attending Unavailable TAMIKO MCCARTHY Referring Unavailable NO PRIMARY CARE, Primary Care Unavailable DIMAS, RYAN B Primary Care Unavailable DIMAS, RYAN B Referring Unavailable YOU MCCALLUME Maria Guadalupe Attending Unavailable PAUL HUYNH Attending Unavailable PAUL HUYNH Referring Unavailable DIMAS, RYAN B Primary Care Unavailable Dr. Ara Franklin MD Referring Provider Dimas PA, Ryan Primary Care Physician Dr. Tamiko Mccarthy MD Attending Physician Dr. Ara Franklin MD Attending Physician Dr. Jayjay Mccabe MD Attending Physician Dr. Michael Pantoja MD Attending Physician Dr. Tamiko Mccarthy MD Nurse Practitioner Raimundo [employer] OPERATOR-C, Sheila Attending Physician [place] PA, Ryan Primary Care Physician Raimundo [employer] OPERATOR-C, Sheila Attending Physician Raimundo [employer] PLANT OPERATOR-C, Sheila Referring Provider Dimas PA, Ryan Referring Provider Dr. Tamiko Mccarthy MD Attending Physician Dr. Ara Franklin MD Attending Physician Dr. Roge Mccabe MDril Attending Physician Rigoberto MATOS, Dr. Bullock Referring Provider Dr. Michael Pantoja MD Attending Physician [place] PA-C, Ryan B Primary Care Provider DIMAS, RYAN B Referring Unavailable DIMAS, RYAN B Primary Care Unavailable DIMAS, RYAN B Referring Unavailable DIMAS, RYAN B Primary Care Unavailable DIMAS, RYAN B Referring Unavailable DIMAS, RYAN B Primary Care Unavailable DIMAS, RYAN B Referring Unavailable DIMAS, RYAN B Primary Care Unavailable DIMAS, RYAN B Primary Care Unavailable MARIELA SCHULZ Attending Unavailable [place]am, Tamiko Attending Unavailable Dimas PA, Ryan Primary Care Unavailabl e [place] PA, Ryan Referring Unavailabl e Robotham, Tamiko Attending Unavailable Robotham, Tamiko Consulting Unavailable Robotham, Tamiko Referring Unavailable Dimas PA, Ryan Primary Care Unavailabl e [place] PA, [place] Primary Care Unavailabl e Dimas PA, Ryan Referring Unavailabl e Raimundo [employer] OPERATOR, Sheila Attending Unavailable [place] PA, Ryan Primary Care Unavailabl e [place] PA, Ryan Referring Unavailabl e Ara Franklin Attending Unavailable [place] PA, Ryan Primary Care Unavailabl e Ara Franklin Attending Unavailable Ara Franklin Referring Unavailable [place] PA, Ryan Primary Care Unavailabl e Ara Franklin Attending Unavailable Ara Franklin Referring Unavailable Robotham, Tamiko Attending Unavailable Robotham, Tamiko Referring Unavailable Dimas PA, Ryan Primary Care Unavailabl e Dimas PA, Ryan Primary Care Unavailabl e Jayjay Mccabe Attending Unavailable [place] PA, Ryan Primary Care Unavailabl e Jayjay Mccabe Attending Unavailable [place] PA, Ryan Primary Care Unavailabl e [place] PA, Ryan Referring Unavailabl e Ara Franklin Attending Unavailable [place] PA, Ryan Referring Unavailabl e Robotham, Tamiko Attending Unavailable [place] PA, Ryan Primary Care Unavailabl e Robotham, Tamiko Referring Unavailable Dimas PA, [place] Primary Care Unavailabl e Ara Franklin Attending Unavailable Dimas PA, [place] Referring Unavailabl e Robotham, Tamiko Attending Unavailable [place] PA, [facility] Unavailabl e [place] PA, [place] Referring Unavailabl e Dimas PA, [facility] Unavailabl e Ara Franklin Attending Unavailable Dimas PA, [place] Referring Unavailabl e Raimundo [employer] OPERATOR, Sheila Attending Unavailable Dimas PA, [facility] Unavailabl e Dimas PA, [facility] Unavailabl e Raimundo [employer] OPERATOR, Sheila Attending Unavailable Raimundo [employer] OPERATOR, Sheila Referring Unavailable Dimas PA, [facility] Unavailabl e Raimundo [employer] OPERATOR, Sheila Attending Unavailable Raimundo [employer] OPERATOR, Sheila Referring Unavailable [place] PA, [facility] Unavailabl e Raimundo [employer] OPERATOR, Sheila Referring Unavailable Raimundo [employer] OPERATOR, Sheila Attending Unavailable Dimas PA, [place] Referring Unavailabl e Michael Pantoja Attending Unavailable Dimas PA, [facility] Unavailabl e [place] PA, [place] Referring Unavailabl e Raimundo [employer] OPERATOR, Sheila Attending Unavailable Dim[place] PA, [facility] Unavailabl e Robotham, Tamiko Attending Unavailable Robotham, Tamiko Referring Unavailable [place] PA, [facility] Unavailabl e Robotham, Tamiko Attending Unavailable Robotham, Tamiko Referring Unavailable [place] PA, [facility] Unavailabl e Michael Pantoja Attending Unavailable [place] PA, [facility] Unavailabl e [place] PA, [place] Referring Unavailabl e Dimas PA, [place] Referring Unavailabl e [place] PA, [facility] Unavailabl e Ara Franklin Attending Unavailable [place] PA, [place] Referring Unavailabl e Dimas PA, [facility] Unavailabl e Raimundo [employer] OPERATOR, Sheila Attending Unavailable Robotham, Tamiko Attending Unavailable Robotham, Tamiko Referring Unavailable [place] PA, [facility] Unavailabl e Allergies Allergy Classification Reported Allergen(s) Allergy Type Date of Onset Reaction(s) Facility (5 sources) citizen of [place] pollen extract Propensity to adverse reactions to drug 12-23-2016 [facility] (5 sources) red maple pollen extract Propensity to adverse reactions to drug 12-23-2016 Itching [facility] Medications Current Medications Medication Drug Class(es) Dates Sig (Normalized) Sig (Original) 200 actuat albuterol 0.09 mg/actuat dry powder inhaler (2 sources) beta2-Adrenergic Agonist End: 11-15-2024 take 2 puff(s) by inhalation every four hours for wheezing albuterol 90 mcg/actuation aerosol powdr breath activated inhaler Inhale 2 puffs every 4 hours if needed for wheezing. 11/15/2024 Discontinued (Therapy completed) amoxicillin 875 mg oral tablet (1 source) Penicillin-class Antibacterial Start: 06-07-2025 take 1 tablet by mouth twice daily Start: 06-07-2025 take 1 tablet by mouth twice d aily benzonatate 200 mg oral capsule (1 source) Non-narcotic Antitussive Start: 06-07-2025 take 1 capsule by mouth three times daily as needed Start: 06-07-2025 take 1 capsule by mouth three times daily as needed brompheniramine maleate 0.4 mg/ml / dextromethorphan hydrobromide 2 mg/ml / pseudoephedrine hydrochloride 6 mg/ml oral solution (1 source) alpha-Adrenergic Agonist, Uncompetitive S-vcylzu-N-aspartate Receptor Antagonist, Sigma-1 Agonist Start: 06-07-2025 Start: 06-07-2025 cefuroxime 500 mg oral tablet (1 source) [...] mouth. 05/13/2019 11/15/2024 Discontinued (Med List Cleanup) dexamethasone 4 mg oral tablet (7 sources) Corticosteroid Start: 02-28-2025 take 2 tablets by mouth twice daily dexAMETHasone (Decadron) 4 mg tablet TAKE 2 TABLETS BY MOUTH TWICE DAILY - TAKE ONLY THE DAY BEFORE, THE DAY OF & THE DAY AFTER CHEMOTHERAPY. 03/01/2025 Active 1 ml diphenhydrAMINE hydrochloride 50 mg/ml cartridge [...] daily. 16 g 12 12/23/2016 12/23/2017 Active 12 hr guaiFENesin 1200 mg extended release oral tablet (1 source) Start: 06-07-2025 take 1 tablet by mouth twice daily Start: 06-07-2025 take 1 tablet by mouth twice d aily HYDROmorphone (DILAUDID) injection 0.25 mg (1 source) [...] nipple discomfort, Starting on Wed01/17/21 at 0524, lidocaine 25 mg/ml / prilocaine 25 mg/ml topical cream (7 sources) Antiarrhythmic, Amide Local Anesthetic Start: 03-01-2025 lidocaine-prilocaine (Emla) 2.5-2.5 % cream APPLY CREAM TOPICALLY ONCE TO AFFECTED AREA NEEDED FOR PORT ACCESS 03/01/2025 Active Start: 02-28-2025 Start: 02-28-2025 Lidocaine-Pril ocaine 2.5-2.5 % cream Active 1 NMA TOPICAL ONCE as needed for Port access port access 30 30 February 28, 2025 12:00am 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 30 tablet 11 12/23/2016 12/23/2017 Active Magic Mouth Wash (Bmx) 180 mL suspension (1 source) Start: 06-07-2025 norethindrone 0.35 mg oral tablet (11 sources) Progestin Start: 06-09-2019 End: 11-15-2024 take 1 tablet by mouth once daily norethindrone (MICRONOR) 0.35 mg tablet Take 1 tablet by mouth daily . 0 06/08/2021 Active ondansetron (ZOFRAN-ODT) disintegrating tablet 4 mg (1 source) Start: 01-16-2021 ondansetron (ZOFRAN-ODT) disintegrating tablet 4 mg oxymetazoline hydrochloride 0.5 mg/ml nasal spray (1 source) End: 11-15-2024 oxymetazoline 0.05 % nasal spray Administer into affected nostril(s) twice a day. 11/15/2024 Discontinued (Med List Cleanup) multivitamin (TRINATAL RX) tablet (1 source) take 1 tablet by mouth once daily multivitamin (TRINATAL RX) tablet Take 1 Tablet by mouth daily Active MV-Min-Fe Fum-FA-DHA ( 1 PO) (1 source) MV-Min- Fe Fum-FA-DHA ( 1 PO) Take by mouth 0 Active vitamin 27-1 MG tablet 1 tablet (1 source) Start: 01-17-2021 take 1 tablet by mouth once daily 1 tablet, Oral, DAILY, First dose on Wed01/17/21 at 0900 Begin when normal bowel activity resumes. prochlorperazine 10 mg oral tablet (7 sources) Phenothiazine Start: 02-28-2025 take 1 tablet by mouth every six hours as needed prochlorperazine (Compazine) 10 mg tablet Take 1 tablet (10 mg) by mouth every 6 hours if needed for nausea or vomiting. 03/01/2025 Active simethicone 80 mg chewable tablet (1 source) Start: 01-17-2021 take 80 mg by mouth every six hours as needed 80 mg, Oral, EVERY 6 HOURS PRN, Cramping, Flatulence, Starting on Wed01/17/21 at 0524, Completed/Discontinued Medications Medication Drug Class(es) Dates Sig (Normalized) Sig (Original) acetaminophen 325 mg oral tablet (20 sources) Start: 06-18-2025 End: 06-18-2025 take 650 mg by mouth once as needed for pain 650 mg, oral, Once, On Wed06/18/25 at 2320, For 1 dose, If ordered PRN for pain, nurse is permitted to administer this medication for higher pain scores based on patient preference? Yes Start: 02-12-2025 take 2 capsules by m outh every six hours as needed for pain Start: 01-23-2025 acetaminophen (Tylenol) 500 mg capsule 650 mg. 01/23/2025 Active Start: 01-23-2025 take 2 tablets by mo [...] 0 01/19/2021 Discontinued (Stop Taking at Discharge) azithromycin 500 mg in dextrose 5% 250 [...] Intramuscular, EVERY 24 HOURS, First dose on [facility] 01/16/21 at 2215, For 2 doses Per [...] Intravenous, at 125 mL/hr, CONTINUOUS, Starting on [facility] 01/16/21 at 2215 ceFAZolin 2000 mg injection [...] on Wed05/23/24 at 0130, For 1 dose iohexol (OMNIPaque) 350 mg iodine/mL solution 72 mL (1 source) Start: 06-18-2025 End: 06-18-2025 72 mL, intravenous, Once in imaging, Starting on Wed06/18/25 at 2242, For 1 dose 1 ml ketorolac tromethamine [...] Wed01/12/25 at 1101, For 1 dose, Intraprocedure 50 ml magnesium sulfate 40 mg/ml injection (1 source) Start: 06-18-2025 End: 06-19-2025 2 g, intravenous, at 150 mL/hr, Administer over 20 Minutes, Once, On Wed06/18/25 at 2235, For 1 dose, Indication for rapid magnesium sulfate IV infusion: Asthma naproxen 375 mg delayed release oral tablet (4 sources) Nonsteroidal Anti-inflammatory Drug Start: 12-23-2016 End: 09-27-2019 take 1 tablet by mouth twice daily at mealtime naproxen (EC NAPROSYN) 375 MG [facility] Indications: Cervical myofascial pain syndrome Take 1 tablet (375 mg total) by mouth 2 (two) times a day with meals. 60 each 0 12/23/2016 09/27/2019 Discontinued (Discontinued by another clinician) 2 ml ondansetron 2 mg/ml injection (13 sources) Serotonin-3 Receptor Antagonist Start: 06-18-2025 End: 06-18-2025 4 mg, intravenous, Once, On Wed06/18/25 at 2155, For 1 dose, When administering via IV Push, administer over 3-5 minutes. Start: 02-28-2025 take 1 tablet by jorge th every eight hours as needed ondansetron ODT (Zofran-ODT) 8 mg disintegrating tablet Dissolve 1 tablet (8 mg) in the mouth every 8 hours if needed for nausea or vomiting. 03/01/2025 Active Start: 01-17-2021 4 mg, Intraven ous, EVERY 6 HOURS PRN, Nausea, Starting on [...] 10-27-2020 ondansetron (ZOFRAN) injecti on 4 mg oxyCODONE hydrochloride 5 mg oral capsule (12 sources) Opioid Agonist Start: 02-13-2025 End: 02-28-2025 take 1 capsule by mouth every six hours as needed for pain Oxycodone 5 mg capsule Discontinued 5 mg PO EVERY 6 HOURS as needed for pain 5 3 0 February 13, 2025 February 28, 2025 2:59pm Postoperative pain Other acute postprocedural pain Start: 01-17-2021 oxyCODONE (MINGO ICODONE) immediate release tablet 5 mg oxytocin (PITOCIN) 30 units in 500 mL infusion (2 sources) Start: 01-17-2021 End: 01-17-2021 oxytocin (PITOCIN) 30 units in 500 mL infusion oxytocin (PITOCIN) 30 units in 500 mL infusion Override Pull (1 source) Start: 01-17-2021 End: 01-17-2021 oxytocin (PITOCIN) 30 units in 500 mL infusion Override Pull pantoprazole 40 mg injection (1 source) Proton Pump Inhibitor Start: 06-18-2025 End: 06-18-2025 40 mg, intravenous, Once, On Wed06/18/25 at 2155, For 1 dose, Reconstitute each 40 mg vial with 10 mL NS to make 4 mg/mL solution. microencapsulated potassium chloride 20 meq extended release oral tablet (2 sources) Start: 06-18-2025 End: 06-19-2025 20 mEq, oral, Once, On Wed06/18/25 at 2345, For 1 dose, Best given with food and a glass of water to minimize gastric irritation. Do not crush or chew. Start: 05-22-2024 End: 05-22-2024 20 mEq, oral, Once, On Wed at 2325, For 1 dose, Best given [...] tablet by mouth daily . 0 Active sertraline 50 mg oral tablet (8 sources) Serotonin Reuptake Inhibitor Start: 01-30-2025 End: 03-13-2025 take 1 tablet by mouth once daily sertraline (Zoloft) 50 mg tablet Indications: Depression, major, recurrent, mild Take 1 tablet (50 mg) by mouth once daily. 30 tablet 5 01/30/2025 03/13/2025 Discontinued (Side effects) Start: 08-26-2021 End: 08-26-2022 take 1 tablet by mouth once daily sertraline (Zoloft) 100 MG tablet Indications: Post depression Take 1 (one) tablet (100 mg total) by mouth daily . 30 tablet 11 08/26/2021 09/10/2021 Discontinued (Side effects) End: 08-26-2021 sertraline HCl (ZOLOFT ORAL) Take by mouth . 0 08/26/2021 Discontinued (Reorder) sertraline HCl ( ZOLOFT ORAL) Take by mouth . 0 Active End: 07-04-2021 take 1 tablet by mouth once daily sertraline (ZOLOFT) 100 MG tablet Take 100 mg by mouth daily . 0 07/04/2021 Discontinued (Side effects) 1000 ml sodium chloride 9 mg/ml injection (13 sources) Start: 06-18-2025 End: 06-19-2025 500 mL, intravenous, at 500 mL/hr, Administer over 1 Hours, Once, On Wed06/18/25 at 2350, For 1 dose Start: 05-22-2024 End: 05-23-2024 1,000 mL, intravenous, [...] Classification Problem Date Documented Da te Episodic/Chronic Abdominal pain (3 sources) Generalized abdominal pain; Translations: [Generalized abdominal pain] Onset: 06-18-2025 06-19-2025 Episodic Cancer of breast (20 sources) Malignant neoplasm of unspecified site of left female breast; Translations: [Infiltrating ductal carcinoma of left breast] Onset: 01-23-2025 01-23-2025 Chronic Comment on above: Left breast 3 biopsi ed, 4 lesions total Deficiency and other anemia (20 sources) Anemia; Translations: [Anemia, unspecified] 01-29-2025 Episodic Diabetes mellitus without complication (20 sources) Impaired glucose tolerance; Translations: [Impaired glucose tolerance (oral)] Onset: 11-15-2024 11-15-2024 Episodic Comment on above: While on oral steroi d Diseases of mouth; excluding dental (4 sources) Inflammatory disease of mucous membrane; Translations: [Oral mucositis (ulcerative), unspecified] Onset: 06-08-2025 06-07-2025 Episodic Esophageal disorders (1 source) Gastro-esophageal reflux disease without esophagitis; Translations: [Gastro-esophageal reflux disease without esophagitis] Onset: 06-20-2025 Chronic External cause codes: Natural/environment (4 sources) Bitten or stung by nonvenomous insect and other nonvenomous arthropods, initial encounter; Translations: [Bedbug bite] Onset: 02-08-2018 02-08-2018 Fluid and electrolyte disorders (3 sources) Dehydration; Translations: [Hypokalemia] Onset: 05-14-2024 Episodic Headache; including migraine (10 sources) Intractable menstrual status migrainosus; Translations: [Menstrual migraine, intractable, with status migrainosus] Onset: 11-15-2024 11-15-2024 Chronic Intestinal infection (1 source) Food poisoning; Translations: [Food poisoning] Episodic Lymphadenitis (20 sources) Axillary lymphadenopathy; Translations: [Localized enlarged lymph nodes] Onset: 06-08-2025 01-29-2025 Episodic Maintenance chemotherapy; radiotherapy (4 sources) Patient encounter status; Translations: [Encounter for antineoplastic chemotherapy] 05-09-2025 Chronic Malaise and fatigue (16 sources) Fatigue; Translations: [Other fatigue] 01-23-2025 Episodic Mood disorders (7 sources) Recurrent major depressive episodes, mild ; Translations: [Major depressive disorder, recurrent, mild] Onset: 01-30-2025 01-30-2025 Chronic Nonmalignant breast conditions (1 source) Fibrocystic change of left breast; Translations: [Diffuse cystic mastopathy of left breast] 01-04-2025 Chronic Other aftercare (20 sources) Surgical follow-up; Translations: [Encounter for breast reconstruction following mastectomy] 02-10-2025 Episodic Other aftercare (1 source) Encounter for therapeutic drug level monitoring; Translations: [Encounter for therapeutic drug level monitoring] Onset: 06-06-2025 Episodic Other complications of (4 sources) depression; [...] Functional diarrhea; Translations: [Functional diarrhea] Episodic Other lower respiratory disease (1 source) Cough; Translations: [Cough] 06-07-2025 Episodic Other non-traumatic joint disorders (1 source) Instability of left shoulder joint; Translations: [Other instability, left shoulder] Episodic Other nutritional; endocrine; and metabolic disorders (13 sources) Obesity caused by energy imbalance; Translations: [...] (BMI) 30.0-30.9, adult] Onset: 11-15-2024 Chronic Other nutritional; endocrine; and metabolic disorders (2 sources) Hypomagnesemia; Translations: [Hypomagnesemia] Onset: 06-18-2025 06-19-2025 Chronic Other nutritional; endocrine; and metabolic disorders (1 source) Hypomagnesemia; Translations: [Hypomagnesemia] Onset: 06-18-2025 Chronic Other and delivery including normal (1 source) ; Translations: [, unspecified gestational age] Episodic Other upper respiratory disease (10 sources) Allergic rhinitis; Translations: [Allergic rhinitis, unspecified] Onset: 12-23-2016 12-23-2016 Chronic Other upper respiratory infections (3 sources) Sore throat symptom; Translations: [Acute pharyngitis, unspecified] Onset: 06-08-2025 06-07-2025 Episodic Pneumonia (except that caused by tuberculosis or sexually transmitted disease) (5 sources) Pneumonia, unspecified organism; Translations: [Pneumonia] Onset: 05-14-2024 Episodic Unclassified (20 sources) Infiltrating ductal carcinoma of breast; Translations: [C50.919 - Malignant neoplasm of unspecified site of unspecified female breast] Unclassified (1 source) Obesity, class 1; Translations: [Obesity, class 1] Onset: 11-15-2024 Unclassified (1 source) Patient care statuses 02-21-2025 Unclassified (2 sources) 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; Translations: [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] Onset: 06-08-2025 Unclassified (1 source) Cough, unspecified; Translations: [Cough, unspecified] Onset: 06-08-2025 Unclassified (1 source) 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; Translations: [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] Onset: 01-23-2025 Past or Other Problems Problem Classification Problem Date Documented Date Episodic/Chronic Administrative/socia l admission (20 sources) Patient encounter status; Translations: [Dietary counseling and surveillance] Onset: 11-15-2024 11-15-2024 Episodic Deficiency and other anemia (1 source) Anemia, unspecified; Translations: [Anemia, unspecified] Onset: 03-05-2025 Episodic E Codes: Adverse effects of medical drugs (1 source) Adverse effect of antineoplastic and immunosuppressive drugs, initial encounter; Translations: [Adverse effect of antineoplastic and immunosuppressive drugs, initial encounter] Onset: 03-05-2025 Episodic E Codes: Natural/environment (5 sources) Bitten or stung by nonvenomous insect and other nonvenomous arthropods, initial encounter; Translations: [Insect bite, nonvenomous, of other, multiple, and unspecified sites, without mention of infection] Onset: 02-08-2018 02-08-2018 Episodic Gastritis and duodenitis (10 sources) Gastritis; Translations: [Gastritis, unspecified, without bleeding] Onset: 12-23-2016 12-23-2016 Episodic Genitourinary symptoms and ill-defined conditions (3 sources) Increased frequency of urination; Translations: [Frequency of micturition] Onset: 03-20-2025 03-13-2025 Episodic Nausea and vomiting (1 source) Nausea with vomiting, unspecified; Translations: [Nausea with vomiting, unspecified] Onset: 03-05-2025 Episodic Nonmalignant breast conditions (16 sources) Lump in upper outer quadrant of left breast; Translations: [Unspecified lump in the left breast, upper outer quadrant] Onset: 01-04-2025 01-04-2025 Episodic Other aftercare (1 source) Encounter for adjustment and management of vascular access device; Translations: [Encounter for adjustment and management of vascular access device] Onset: 03-08-2025 Episodic Other complications of ; puerperium affecting management of mother (1 source) Disorder of umbilical cord; Translations: [Maternal care for other (suspected) abnormality and damage, not applicable or unspecified] Onset: 01-15-2021 01-15-2021 Episodic Other complications of (1 source) Single umbilical artery; Translations: [Supervision of other high risk pregnancies, unspecified trimester] Onset: 01-15-2021 01-15-2021 Episodic Other connective tissue disease (3 sources) Myofascial pain; Translations: [Cervical myofascial pain syndrome] Onset: 12-23-2016 12-23-2016 Episodic Other screening for suspected conditions (not mental disorders or infectious disease) (6 sources) Mammography abnormal; Translations: [Other abnormal and inconclusive findings on diagnostic imaging of breast] Onset: 01-12-2025 01-12-2025 Episodic Otitis media and related conditions (10 sources) Otitis media; Translations: [Otitis media, unspecified, unspecified ear] Onset: 10-08-2017 10-08-2017 Episodic Spondylosis; intervertebral disc disorders; other back problems (7 sources) Cervical trigger point syndrome; Translations: [Myalgia, other site] Onset: 12-23-2016 12-23-2016 Episodic Unclassified (1 source) 06/28/2024 [facility] PAP SMEAR Onset: 07-03-2024 Unclassified (9 sources) Onset: 11-15-2024 Resolved: 03-13-2025 11-15-2024 Unclassified (1 source) Obesity, class 1; Translations: [Obesity, class 1] Onset: 11-15-2024 Results Test Name Value Interpretation Reference Range Facility CBC W/Diff, Automatedon 06-09 Absolute Lymph 0.59 X10 3/uL Low 0.83-4.51 [facility] Comment on above: Performed By: #### L 501.2300 #### [facility] [address] [place], [address] Absolute Neut 5.9 X10 3/uL Normal 2.0-7.7 [facility] Comment on above: Performed By: #### L 501.2300 #### [facility] [address] [place], [address] Basophils/100 WBC (Bld) 0.1 % Normal 0-1 [facility] Comment on above: Performed By: #### L 501.2300 #### [facility] [address] [place], [address] Eosinophils/100 WBC (Bld) 0.0 % Normal 0-5 [facility] Comment on above: Performed By: #### L 501.2300 #### [facility] [address] [place], [address] Erythrocyte distribution width (RBC) [Ratio] 17.5 % High 11.6-14.6 [facility] Comment on above: Performed By: #### L 501.2300 #### [facility] [address] [place], [address] Hematocrit (Bld) [Volume fraction] 34.5 % Low 37-47 [facility] Comment on above: Performed By: #### L 501.230 #### [facility] [address] [place], [address] Hemoglobin (Bld) [Mass/Vol] 11.1 g/dL Low 12.0-15.0 [facility] Comment on above: Performed By: #### L 501.2300 #### [facility] [address] [place], [address] IG% 0.700 Normal 0.0-0.9 [facility] Comment on above: Result Comment: IG% - Immature Granulocytes (promyelocytes, myelocytes and metamyelocytes) > 1% indicates that a LEFT SHIFT is Present. Performed By: #### L 501.2299 #### [facility] [address] [place], [address] Lymphocytes/100 WBC (Bld) 8.7 % Low 19-41 [facility] Comment on above: Performed By: #### L 501.2300 #### [facility] [address] [place], [address] MCH (RBC) [Entitic mass] 32.3 pg High 27.0-32.0 [facility] Comment on above: Performed By: #### L 501.2300 #### [facility] [address] [place], [address] MCHC (RBC) [Mass/Vol] 32.2 g/dL Normal 32-36 [facility] Comment on above: Performed By: #### L 501.2300 #### [facility] [address] [place], [address] MCV (RBC) [Entitic vol] 100.3 fL High 81-99 [facility] Comment on above: Performed By: #### L 501.2300 #### [facility] [address] [place], [address] Monocytes/100 WBC (Bld) 4.1 % Normal 0-10 [facility] Comment on above: Performed By: #### L 501.2300 #### [facility] [address] [place], [address] Neutrophils/100 WBC (Bld) 86.4 % High 47-70 [facility] Comment on above: Performed By: #### L 501.2300 #### [facility] [address] [place], [address] Nucleated RBC (Bld) [#/Vol] 0 10*3/uL Normal 0-5 [facility] Comment on above: Performed By: #### L 501.2300 #### [facility] [address] [place], [address] Platelet mean volume (Bld) [Entitic vol] 10.1 fL Normal 6.2-12.0 [facility] Comment on above: Performed By: #### L 501.2300 #### [facility] [address] [place], [address] Platelets (Bld) [#/Vol] 160 10*3/uL Normal 150-450 [facility] Comment on above: Performed By: #### L 501.2300 #### [facility] [address] [place], [address] RBC (Bld) [#/Vol] 3.44 10*6/uL Low 4.2-5.4 [facility] Comment on above: Performed By: #### L 501.2300 #### [facility] [address] [place], [address] RDW SD 64.8 fl High 35.1-43.9 [facility] Comment on above: Performed By: #### L 501.2300 #### [facility] [address] [place], [address] WBC (Bld) [#/Vol] 6.8 10*3/uL Normal 4.4-11.0 [facility] Comment on above: Performed By: #### L 501.2300 #### [facility] [address] [place], [address] Comprehensive Metabolic Prof ilon 06-20-2025 Albumin [Mass/Vol] 3.9 g/dL Normal 3.5-5.0 [facility] Comment on above: Performed By: #### L 501.2300 #### [facility] [address] [place], [address] Albumin/Globulin [Mass ratio] 1.5 {ratio} Normal 0.9-2.4 [facility] Comment on above: Performed By: #### L 501.2300 #### [facility] [address] [place], [address] ALK PHOS 80 U/L Normal 35-104 [facility] Comment on above: Performed By: #### L 501.2300 #### [facility] [address] [place], [address] ALT [Catalytic activity/Vol] 73 U/L High <=34 [facility] Comment on above: Performed By: #### L 501.2300 #### [facility] [address] [place], [address] AST [Catalytic activity/Vol] 28 U/L Normal <=31 [facility] Comment on above: Performed By: #### L 501.2300 #### [facility] [address] [place], [address] Bilirubin [Mass/Vol] 0.21 mg/dL Normal 0.00-1.30 [facility] Comment on above: Performed By: #### L 501.2300 #### [facility] [address] [place], [address] BUN/CRE 20.8 RATIO High 10-20 [facility] Comment on above: Performed By: #### L 501.2300 #### [facility] [address] [place], [address] Calcium [Mass/Vol] 9.2 mg/dL Normal 7.6-11.0 [facility] Comment on above: Performed By: #### L 501.2300 #### [facility] [address] [place], [address] Chloride [Moles/Vol] 104 mmol/L Normal 98-108 [facility] Comment on above: Performed By: #### L 501.2300 #### [facility] [address] [place], [address] CO2 [Moles/Vol] 20.4 mmol/L Low 21.0-32.0 [facility] Comment on above: Performed By: #### L 501.2300 #### [facility] [address] [place], [address] Creatinine [Mass/Vol] 0.72 mg/dL Normal 0.70-1.20 [facility] Comment on above: Performed By: #### L 501.2300 #### [facility] [address] [place], [address] ECRCL 106.51 ml/min Normal 50-250 [facility] Comment on above: Performed By: #### L 501.2300 #### [facility] [address] [place], [address] GAP 15 Normal 5-15 [facility] Comment on above: Performed By: #### L 501.2300 #### [facility] [address] [place], [address] GFR/1.73 sq M.predicted among non-blacks MDRD (S/P/Bld) [Vol rate/Area] 117 mL/min/{1.73_m2} Normal >60 [facility] Comment on above: Result Comment: mL/m in/1.73m2 CKD-EPI Creatinine Equation (2020) Performed By: #### L 501.2300 #### [facility] [address] [place], [address] Globulin (S) [Mass/Vol] 2.6 g/dL Normal 2.2-4.2 [facility] Comment on above: Performed By: #### L 501.2300 #### [facility] [address] [place], [address] Glucose [Mass/Vol] 133 mg/dL High 70-99 [facility] Comment on above: Performed By: #### L 501.2300 #### [facility] [address] [place], [address] Potassium [Moles/Vol] 4.2 mmol/L Normal 3.3-5.1 [facility] Comment on above: Performed By: #### L 501.2300 #### [facility] [address] [place], [address] Sodium [Moles/Vol] 139 mmol/L Normal 133-145 [facility] Comment on above: Performed By: #### L 501.2300 #### [facility] [address] [place], [address] T PROT 6.6 g/dL Normal 5.9-8.4 [facility] Comment on above: Performed By: #### L 501.2300 #### [facility] [address] [place], [address] Urea nitrogen [Mass/Vol] 15 mg/dL Normal 4-19 [facility] Comment on above: Performed By: #### L 501.2300 #### [facility] [address] [place], [address] Magnesiumon 06-20-2025 Magnesium [Mass/Vol] 1.9 mg/dL Normal 1.5-2.2 [facility] Comment on above: Performed By: #### L 501.2300 #### [facility] [address] [place], [address] Oncology Visit Reporton 06-09 Oncology Visit Report [facility] [address] 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 January 25, [...] FINAL ASSESSMENT BI-RADS 6: KNOWN BIOPSY-PROVEN MALIGNANCY. February 14, 2025 bone scan: IMPRESSION: No scintigraphic evidence of osseous metastatic disease. February 21, 2025 chest abdomen and pelvis CT: IMPRESSION: Small umbilical hernia containing fat. Follicles are seen in both ovaries more prominent on the left side. Treatment summary and response: TCHP March 07, 2025 Interval History The patient is presenting to clinic for an evaluation anticipating she will begin 6th and final cycle of TCHP. Diarrhea continues, estimates 2-3 episodes. Responds to loperamide. Reports on 06/18/25 evening she developed midepigastric pain, describes as like really bad gas. Presented to [facility] ED with these complaints. Per patient self report, she underwent an CT of her abd and was supported with IV pantoprazole and 3 L of IVFs and magnesium. States after the pantoprazole pain resolved completely. Blood cultures were taken. Remained afebrile. Also completed course of amoxicillin on 06/13/25, admits the final 2 days of 10 day course- she did only take daily dosing instead of BID dosing, indicating she simply forgot to take them. Symptoms (sore throat, cough-nonproductive, headache) Today, she specifically denies dizziness, headache, ear pain, tearing, CP, palpitations, SOB, wheezing, abd pain, N/V, abd pain, swelling of her extremities, numbness/tingling. [facility] Medical History Mucositis Sore throat Cough Encounter for antineoplastic chemotherapy and immunotherapy Encounter for education Wears glasses Non-smoker Shortness of breath on exertion History of echocardiogram Anemia Axillary lymphadenopathy Surgical History History of wisdom tooth extraction delivery delivered Family History Other No pertinent family history Social History Smoking Status: Never smoker alcohol intake: never ROS ROS Narrative Negative except as documented in the interval HPI Intake Vital Signs 05/09/25 08:43 06/20/25 08:28 Height 5 ft 5 ft Weight: 169 lb 3 oz BMI 33.0 BP 100/68 Blood Pressure Location Lt brachial Position Sitting Respiration 16 Pulse 78 Pulse Source Monitor Temp 98.3 F Temperature Source Temporal Artery Pulse Oximetry (%) 97 Oxygen Delivery Method room air Intake Is patient in pain?: No Allergies No Known Allergies Allergy (Verified 06/20/25 08:33) Medications ???Medication ???Instructions ???Recorded ???Confirmed ???Type acetaminophen 500 mg capsule 1,000 mg PO Q6H PRN pain 02/12/25 06/20/25 History dexamethasone 4 mg tablet 8 mg (2 x 4 mg) PO .COMPLEX #60 06/20/25 Rx tabs lidocaine- (more content not included)... Normal [facility] Phosphoruson 06-20-2025 Phosphate [Mass/Vol] 3.7 mg/dL Normal 2.7-4.5 [facility] Comment on above: Performed By: #### L 501.2300 #### [facility] [address] [facility] [place], [address] ,Urineon 06-20-2025 Beta HCG ( test) Ql (U) Negative Normal [facility] Comment on above: Result Comment: Very dilute urine specimens, as indicated by a low specific gravity, may not contain human resources hr representative levels of hCG. If is still suspected, a first morning urine specimen should be collected 48 hours later and tested. Performed By: #### L 501.2300 #### [facility] [address] [facility] [place], [place], [address] Bacteriaon 06-19-2025 Bacteria identified Cx Nom (Bld) Test: Blood Culture Specimen Source: Peripheral Venipuncture Specimen Type: Blood culture Specimen Date: 06/19/2025 0010 Result Date: 06/20/2025 1200 Result Status: Preliminary result Abnormal: No Resulting Lab: [facility] [address] [place] [address] CULTURE No growth at 1 day Normal [facility] Comment on above: Performed By: #### 6 00-7 ####FAISAL Chery ([id number])[facility] ([facility])[address] [place] [id number] XR Chest Single viewon 06-19 1. No focal consolidation. MACRO: None Signed by: Astrid Zaidi 06/19/2025 12:33 AM Dictation workstation: [id number] [facility] Interpreted By: Astrid Meng, STUDY: XR CHEST 1 VIEW; 06/18/2025 11:57 pm INDICATION: Signs/Symptoms:pneumonia. COMPARISON: 05/22/2024 ACCESSION NUMBER(S): [id number] ORDERING CLINICIAN: MARIELA SCHULZ FINDINGS: AP radiograph of the chest was provided. Interval placement of a right IJ MediPort with tip projecting over the right atrium. CARDIOMEDIASTINAL SILHOUETTE: Cardiomediastinal silhouette is normal in size and configuration. LUNGS: No focal consolidation, pleural effusion or sizable pneumothorax seen. ABDOMEN: No remarkable upper abdominal findings. BONES: No acute osseous changes. MMODAL Astrid Zaidi D O - 06/19/2025 Interpreted By: Astrid Zaidi, STUDY: XR CHEST 1 VIEW; 06/18/2025 11:57 pm INDICATION: Signs/Symptoms:pneumonia. COMPARISON: 05/22/2024 ACCESSION NUMBER(S): [id number] ORDERING CLINICIAN: MARIELA SCHULZ FINDINGS: AP radiograph of the chest was provided. Interval placement of a right IJ MediPort with tip projecting over the right atrium. CARDIOMEDIASTINAL SILHOUETTE: Cardiomediastinal silhouette is normal in size and configuration. LUNGS: No focal consolidation, pleural effusion or sizable pneumothorax seen. ABDOMEN: No remarkable upper abdominal findings. BONES: No acute osseous changes. IMPRESSION: 1. No focal consolidation. MACRO: None Signed by: Astrid Zaidi 06/19/2025 12:33 AM Dictation workstation: [id number] [facility] Work Phone: XR Chest Single viewOrdered By: Astrid Zaidi on 06-19-2025 [facility] Work Phone: CBC W Auto Differential pane l (Bld)on 06-18-2025 Basophils (Bld) [#/Vol] 0.03 10*3/uL [facility] Basophils/100 WBC (Bld) 0.3 % 0.0 - 2.0 % [facility] Eosinophils (Bld) [#/Vol] 0.04 10*3/uL [facility] Eosinophils/100 WBC (Bld) 0.4 % 0.0 - 6.0 % [facility] Erythrocyte distribution width (RBC) [Ratio] 17.6 % High 11.5 - 14.5 % [facility] Hematocrit (Bld) [Volume fraction] 35.3 % Low 36.0 - 46.0 % [facility] Hemoglobin (Bld) [Mass/Vol] 11.5 g/dL Low 12.0 - 16.0 g/dL [facility] Immature granulocytes (Bld) [#/Vol] 0.03 10*3/uL [facility] Immature granulocytes/100 WBC (Bld) 0.3 % 0.0 - 0.9 % [facility] Comment on above: Immature Granulocyte Count (IG) includes promyelocytes, myelocytes and metamyelocytes but does not include bands. Percent differential counts (%) should be interpreted in the context of the absolute cell counts (cells/UL). Interpretation and review of laboratory results Abnormal [facility] Lymphocytes (Bld) [#/Vol] 0.78 10*3/uL Low [facility] Lymphocytes/100 WBC (Bld) 7.6 % 13.0 - 44.0 % [facility] MCH (RBC) [Entitic mass] 32.3 pg 26.0 - 34.0 pg [facility] MCHC (RBC) [Mass/Vol] 32.6 g/dL 32.0 - 36.0 g/dL [facility] MCV (RBC) [Entitic vol] 99 fL 80 - 100 fL [facility] Monocytes (Bld) [#/Vol] 0.39 10*3/uL [facility] Monocytes/100 WBC (Bld) 3.8 % 2.0 - 10.0 % [facility] Neutrophils (Bld) [#/Vol] 9.06 10*3/uL High [facility] Comment on above: Percent differential counts (%) should be interpreted in the context of the absolute cell counts (cells/uL). Neutrophils/100 WBC (Bld) 87.6 % 40.0 - 80.0 % [facility] Nucleated RBC/100 WBC (Bld) [Ratio] 0.0 % [facility] Platelets (Bld) [#/Vol] 127 10*3/uL Low [facility] RBC (Bld) [#/Vol] 3.56 10*6/uL Low [facility] WBC (Bld) [#/Vol] 10.3 10*3/uL [facility] Basophils (Bld) [#/Vol] 0.03 x10*3/uL Normal 0.00-0.10 [facility] Comment on above: Performed By: #### 5 7021-8 #### KARUNA VILLANUEVA ([id number]) [facility] ([facility]) [address] [place] [address] Basophils/100 WBC (Bld) 0.3 % Normal 0.0-2.0 [facility] Comment on above: Performed By: #### 5 7021-8 #### KARUNA VILLANUEVA ([id number]) [facility] ([facility]) [address] [place] [address] Eosinophils (Bld) [#/Vol] 0.04 x10*3/uL Normal 0.00-0.70 [facility] Comment on above: Performed By: #### 5 7021-8 #### KARUNA VILLANUEVA ([id number]) [facility] ([facility]) [address] [place] [address] Eosinophils/100 WBC (Bld) 0.4 % Normal 0.0-6.0 [facility] Comment on above: Performed By: #### 5 7021-8 #### KARUNA VILLANUEVA ([id number]) [facility] ([facility]) [address] [place] [address] Erythrocyte distribution width (RBC) [Ratio] 17.6 % High 11.5-14.5 [facility] Comment on above: Performed By: #### 5 7021-8 #### KARUNA VILLANUEVA ([id number]) [facility] ([facility]) [address] [place] [address] Hematocrit (Bld) [Volume fraction] 35.3 % Low 36.0-46.0 [facility] Comment on above: Performed By: #### 5 7021-8 #### KARUNA VILLANUEVA ([id number]) [facility] ([facility]) [address] [place] [address] Hemoglobin (Bld) [Mass/Vol] 11.5 g/dL Low 12.0-16.0 [facility] Comment on above: Performed By: #### 5 7021-8 #### KARUNA VILLANUEVA ([id number]) [facility] ([facility]) [address] [place] [address] Immature granulocytes (Bld) [#/Vol] 0.03 x10*3/uL Normal 0.00-0.70 [facility] Comment on above: Performed By: #### 5 7021-8 #### KARUNA VILLANUEVA ([id number]) [facility] ([facility]) [address] [place] [address] Immature granulocytes/100 WBC (Bld) 0.3 % Normal 0.0-0.9 [facility] Comment on above: Result Comment: Karen ture Granulocyte Count (IG) includes promyelocytes, myelocytes and metamyelocytes but does not include bands. Percent differential counts (%) should be interpreted in the context of the absolute cell counts (cells/UL). Performed By: #### 5 7021-8 #### KARUNA VILLANUEVA ([id number]) [facility] ([facility]) [address] [place], [place] [id number] Lymphocytes (Bld) [#/Vol] 0.78 x10*3/uL Low 1.20-4.80 [facility] Comment on above: Performed By: #### 5 7021-8 #### KARUNA VILLANUEVA ([id number]) [facility] ([facility]) [address] [place] [address] Lymphocytes/100 WBC (Bld) 7.6 % Normal 13.0-44.0 [facility] Comment on above: Performed By: #### 7021-8 #### KARUNA VILLANUEVA ([id number]) [facility] ([facility]) [address] [place] [address] MCH (RBC) [Entitic mass] 32.3 pg Normal 26.0-34.0 [facility] Comment on above: Performed By: #### 7021-8 #### KARUNA VILLANUEVA ([id number]) [facility] ([facility]) [address] [place] [address] MCHC (RBC) [Mass/Vol] 32.6 g/dL Normal 32.0-36.0 [facility] Comment on above: Performed By: #### 7021-8 #### KARUNA VILLANUEVA ([id number]) [facility] ([facility]) [address] [place] [address] MCV (RBC) [Entitic vol] 99 fL Normal 80-100 [facility] Comment on above: Performed By: #### 7021-8 #### KARUNA VILLANUEVA ([id number]) [facility] ([facility]) [address] [place] [address] Monocytes (Bld) [#/Vol] 0.39 x10*3/uL Normal 0.10-1.00 [facility] Comment on above: Performed By: #### 5 7021-8 #### KARUNA VILLANUEVA ([id number]) [facility] ([facility]) [address] [place] [address] Monocytes/100 WBC (Bld) 3.8 % Normal 2.0-10.0 [facility] Comment on above: Performed By: #### 5 7021-8 #### KARUNA VILLANUEVA ([id number]) [facility] ([facility]) [address] [place] [address] Neutrophils (Bld) [#/Vol] 9.06 x10*3/uL High 1.20-7.70 [facility] Comment on above: Result Comment: Perc ent differential counts (%) should be interpreted in the context of the absolute cell counts (cells/uL). Performed By: #### 5 7021-8 #### KARUNA VILLANUEVA ([id number]) [facility] ([facility]) [address] [place] [address] Neutrophils/100 WBC (Bld) 87.6 % Normal 40.0-80.0 [facility] Comment on above: Performed By: #### 5 7021-8 #### KARUNA VILLANUEVA ([id number]) [facility] ([facility]) [address] [place], [place] [phone] Nucleated RBC/100 WBC (Bld) [Ratio] 0.0 /100 WBCs Normal 0.0-0.0 [facility] Comment on above: Performed By: #### 5 7021-8 #### KARUNA VILLANUEVA ([id number]) [facility] ([facility]) [address] [place] [address] Platelets (Bld) [#/Vol] 127 x10*3/uL Low 150-450 [facility] Comment on above: Performed By: #### 5 7021-8 #### KARUNA VILLANUEVA ([id number]) [facility] ([facility]) [address] [place] [address] RBC (Bld) [#/Vol] 3.56 x10*6/uL Low 4.00-5.20 [facility] Comment on above: Performed By: #### 5 7021-8 #### KARUNA VILLANUEVA ([id number]) [facility] ([facility]) [address] [place] [address] WBC (Bld) [#/Vol] 10.3 x10*3/uL Normal 4.4-11.3 [facility] Comment on above: Performed By: #### 5 7021-8 #### KARUNA VILLANUEVA ([id number]) [facility] ([facility]) [address] [place] [address] ABDOMEN PELVIS W IV CONTR Celeste 06-18-2025 CT ABDOMEN PELVIS W IV CONTRAST Interpreted By: Sloan Cardenas, STUDY: CT ABDOMEN PELVIS W IV CONTRAST; 06/18/2025 11:05 pm INDICATION: Signs/Symptoms:pain. COMPARISON: None. ACCESSION NUMBER(S): [id number] ORDERING CLINICIAN: MARIELA SCHULZ TECHNIQUE: Contiguous axial images of the abdomen and pelvis were obtained after the intravenous administration of iodinated contrast. Coronal and sagittal reformatted images were reconstructed from the axial data. FINDINGS: LOWER CHEST: No acute abnormality. ABDOMEN/PELVIS: ABDOMINAL WALL: Small fat-containing umbilical hernia. LIVER: No significant parenchymal abnormality. BILE DUCTS: No significant intrahepatic or extrahepatic dilatation. GALLBLADDER: No significant abnormality. PANCREAS: No significant abnormality. SPLEEN: No significant abnormality. ADRENALS: No significant abnormality. KIDNEYS, URETERS, BLADDER: No significant abnormality. REPRODUCTIVE ORGANS: The uterus is retroverted. No suspicious adnexal mass. There is a 1.4 cm right para ovarian cyst. VESSELS: No significant abnormality. RETROPERITONEUM/LYMPH NODES: No acute retroperitoneal abnormality. No enlarged lymph nodes. BOWEL/PERITONEUM: No inflammatory bowel wall thickening or dilatation. The appendix is not identified; however, there are no pericecal inflammatory changes. No ascites, free air, or fluid collection. MUSCULOSKELETAL: No acute osseous abnormality. No suspicious osseous lesion. IMPRESSION: No acute abnormality within the abdomen or pelvis. MACRO: None. Signed by: Sloan Cardenas 06/18/2025 11:46 PM Dictation workstation: [id number] [facility] CT Abdomen and Pelvis W cont rast Jeevan 06-18-2025 No acute abnormality within the abdomen or pelvis. MACRO: None. Signed by: Sloan Cardenas 06/18/2025 11:46 PM Dictation workstation: [id number] [facility]AL Interpreted By: Sloan Cardenas, STUDY: CT ABDOMEN PELVIS W IV CONTRAST; 06/18/2025 11:05 pm INDICATION: Signs/Symptoms:pain. COMPARISON: None. ACCESSION NUMBER(S): [id number] ORDERING CLINICIAN: MARIELA SCHULZ TECHNIQUE: Contiguous axial images of the abdomen and pelvis were obtained after the intravenous administration of iodinated contrast. Coronal and sagittal reformatted images were reconstructed from the axial data. FINDINGS: LOWER CHEST: No acute abnormality. ABDOMEN/PELVIS: ABDOMINAL WALL: Small fat-containing umbilical hernia. LIVER: No significant parenchymal abnormality. BILE DUCTS: No significant intrahepatic or extrahepatic dilatation. GALLBLADDER: No significant abnormality. PANCREAS: No significant abnormality. SPLEEN: No significant abnormality. ADRENALS: No significant abnormality. KIDNEYS, URETERS, BLADDER: No significant abnormality. REPRODUCTIVE ORGANS: The uterus is retroverted. No suspicious adnexal mass. There is a 1.4 cm right para ovarian cyst. VESSELS: No significant abnormality. RETROPERITONEUM/LYMPH NODES: No acute retroperitoneal abnormality. No enlarged lymph nodes. BOWEL/PERITONEUM: No inflammatory bowel wall thickening or dilatation. The appendix is not identified; however, there are no pericecal inflammatory changes. No ascites, free air, or fluid collection. MUSCULOSKELETAL: No acute osseous abnormality. No suspicious osseous lesion. [facility] Sloan Cardenas MD - 06/18/2025 Interpreted By: Sloan Cardenas, STUDY: CT ABDOMEN PELVIS W IV CONTRAST; 06/18/2025 11:05 pm INDICATION: Signs/Symptoms:pain. COMPARISON: None. ACCESSION NUMBER(S): [id number] ORDERING CLINICIAN: MARIELA SCHULZ TECHNIQUE: Contiguous axial images of the abdomen and pelvis were obtained after the intravenous administration of iodinated contrast. Coronal and sagittal reformatted images were reconstructed from the axial data. FINDINGS: LOWER CHEST: No acute abnormality. ABDOMEN/PELVIS: ABDOMINAL WALL: Small fat-containing umbilical hernia. LIVER: No significant parenchymal abnormality. BILE DUCTS: No significant intrahepatic or extrahepatic dilatation. GALLBLADDER: No significant abnormality. PANCREAS: No significant abnormality. SPLEEN: No significant abnormality. ADRENALS: No significant abnormality. KIDNEYS, URETERS, BLADDER: No significant abnormality. REPRODUCTIVE ORGANS: The uterus is retroverted. No suspicious adnexal mass. There is a 1.4 cm right para ovarian cyst. VESSELS: No significant abnormality. RETROPERITONEUM/LYMPH NODES: No acute retroperitoneal abnormality. No enlarged lymph nodes. BOWEL/PERITONEUM: No inflammatory bowel wall thickening or dilatation. The appendix is not identified; however, there are no pericecal inflammatory changes. No ascites, free air, or fluid collection. MUSCULOSKELETAL: No acute osseous abnormality. No suspicious osseous lesion. IMPRESSION: No acute abnormality within the abdomen or pelvis. MACRO: None. Signed by: Sloan Cardenas 06/18/2025 11:46 PM Dictation workstation: [id number] [facility] Work Phone: Radiology Study observation (narrative) [facility] Work Phone: CT Abdomen and Pelvis W cont rast IVOrdered By: Slaon Cardenas on 06-18-2025 [facility] Work Phone: Comprehensive metabolic 2000 panelon 06-18-2025 Albumin BCP dye [Mass/Vol] 4.2 g/dL 3.4 - 5.0 g/dL [facility] ALP [Catalytic activity/Vol] 83 U/L 33 - 110 U/L [facility] ALT With P-5'-P [Catalytic activity/Vol] 41 U/L 7 - 45 U/L [facility] Comment on above: Patients treated wit h Sulfasalazine may generate falsely decreased results for ALT. Anion gap [Moles/Vol] 11 mmol/L 10 - 2 0 mmol/L [facility] AST With P-5'-P [Catalytic activity/Vol] 37 U/L 9 - 39 U/L [facility] Bilirubin [Mass/Vol] 0.4 mg/dL 0.0 - 1 .2 mg/dL [facility] Calcium [Mass/Vol] 9.4 mg/dL 8.6 - 10. 3 mg/dL [facility] Chloride [Moles/Vol] 102 mmol/L 98 - 10 7 mmol/L [facility] CO2 [Moles/Vol] 28 mmol/L 21 - 32 mmol/L [facility] Comment on above: Bicarbonate results may be falsely elevated when Lactate Dehydrogenase (LDH) concentrations exceed 2,000 U/L due to a temporary reagent manufacturing issue. If significantly elevated LDH levels are suspected, interpret bicarbonate results with caution, correlate with the patient s clinical status, and consider confirming CO2 values using a blood gas analyzer. Creatinine [Mass/Vol] 0.70 mg/dL 0.50 - 1.05 mg/dL [facility] eGFR - PINF [facility] Comment on above: Calculations of oskar mated GFR are performed using the 2021 CKD-EPI Study Refit equation without the race variable for the IDMS-Traceable creatinine methods. https://jasn.asnjournals.org/content//ASN.206104 1523 Glucose [Mass/Vol] 125 mg/dL High 74 - 99 mg/dL [facility] Interpretation and review of laboratory results Abnormal [facility] Potassium [Moles/Vol] 3.4 mmol/L Low 3.5 - 5.3 mmol/L [facility] Protein [Mass/Vol] 6.7 g/dL 6.4 - 8.2 g/dL [facility] Sodium [Moles/Vol] 138 mmol/L 136 - 145 mmol/L [facility] Urea nitrogen [Mass/Vol] 13 mg/dL 6 - 23 mg/dL [facility] Albumin BCP dye [Mass/Vol] 4.2 g/dL Normal 3.4-5.0 [facility] Comment on above: Performed By: #### 2 4323-8 #### KARUNA VILLANUEVA ([id number]) [facility] ([facility]) [address] [place] [address] ALP [Catalytic activity/Vol] 83 U/L Normal 33-110 [facility] Comment on above: Performed By: #### 2 4323-8 #### KARUNA VILLANUEVA ([id number]) [facility] ([facility]) [address] [place] [address] 97281 ALT With P-5'-P [Catalytic activity/Vol] 41 U/L Normal 7-45 [facility] Comment on above: Result Comment: Joy ents treated with Sulfasalazine may generate falsely decreased results for ALT. Performed By: #### 2 4323-8 #### KARUNA VILLANUEVA ([id number]) [facility] ([facility]) [address] [place] [address] Anion gap [Moles/Vol] 11 mmol/L Normal 10-20 [facility] Comment on above: Performed By: #### 2 4323-8 #### KARUNA VILLANUEVA ([id number]) [facility] ([facility]) [address] [place] [address] AST With P-5'-P [Catalytic activity/Vol] 37 U/L Normal 9-39 [facility] Comment on above: Performed By: #### 2 4323-8 #### KARUNA VILLANUEVA ([id number]) [facility] ([facility]) [address] [place] [address]97 Bilirubin [Mass/Vol] 0.4 mg/dL Normal 0.0-1.2 [facility] Comment on above: Performed By: #### 2 4323-8 #### KARUNA VILLANUEVA ([id number]) [facility] ([facility]) [address] [place] [address]71 Calcium [Mass/Vol] 9.4 mg/dL Normal 8.6-10.3 [facility] Comment on above: Performed By: #### 2 4323-8 #### KARUNA VILLANUEVA ([id number]) [facility] ([facility]) [address] [place] [address] 37268 Chloride [Moles/Vol] 102 mmol/L Normal 98-107 [facility] Comment on above: Performed By: #### 2 4323-8 #### KARUNA VILLANUEVA ([id number]) [facility] ([facility]) [address] [place] [address] 48345 CO2 [Moles/Vol] 28 mmol/L Normal 21-32 [facility] Comment on above: Result Comment: Bica rbonate results may be falsely elevated when Lactate Dehydrogenase (LDH) concentrations exceed 2,000 U/L due to a temporary reagent manufacturing issue. If significantly elevated LDH levels are suspected, interpret bicarbonate results with caution, correlate with the patient's clinical status, and consider confirming CO2 values using a blood gas analyzer. Performed By: #### 2 4323-8 #### KARUNA VILLANUEVA ([id number]) [facility] ([facility]) [address] [place] [address]046 Creatinine [Mass/Vol] 0.70 mg/dL Normal 0.50-1.05 [facility] Comment on above: Performed By: #### 2 4323-8 #### KARUNA VILLANUEVA ([id number]) [facility] ([facility]) [address] [place] [address] Glomerular filtration rate >90 Normal >60 [facility] Comment on above: Result Comment: Calc ulations of estimated GFR are performed using the 2020 CKD-EPI Study Refit equation without the race variable for the IDMS-Traceable creatinine methods. https://jasn.asnjournals.org/content//ASN.462603 1636 Performed By: #### 2 4323-8 #### KARUNA VILLANUEVA ([id number]) [facility] ([facility]) [address] [place] [address] 38377 Glucose [Mass/Vol] 125 mg/dL High 74-99 [facility] Comment on above: Performed By: #### 2 432-8 #### KARUNA VILLANUEVA ([id number]) [facility] ([facility]) [address] [place] [address] 02782 Potassium [Moles/Vol] 3.4 mmol/L Low 3.5-5.3 [facility] Comment on above: Performed By: #### 2 4323-8 #### KARUNA VILLANUEVA ([id number]) [facility] ([facility]) [address] [place] [address] 35175 Protein [Mass/Vol] 6.7 g/dL Normal 6.4-8.2 [facility] Comment on above: Performed By: #### 2 4323-8 #### KARUNA VILLANUEVA ([id number]) [facility] ([facility]) [facility] [place] [address] Sodium [Moles/Vol] 138 mmol/L Normal 136-145 [facility] Comment on above: Performed By: #### 2 4323-8 #### KARUNA VILLANUEVA ([id number]) [facility] ([facility]) [address] [place] [address] 19613 Urea nitrogen [Mass/Vol] 13 mg/dL Normal 6-23 [facility] Comment on above: Performed By: #### 2 4323-8 #### KARUNA VILLANUEVA ([id number]) [facility] ([facility]) [facility] [place] [address] ECG 12-LEADon 06-18-2025 ECG 12-LEAD Ventricular Rate 115 Atrial Rate 115 P-R Interval 130 QRS Duration 74 Q-T Interval 298 QTC Calculation(Bazett) 412 P [place] 58 R [place] 28 T [place] 20 QRS Count 19 Q Onset 220 P Onset 155 P Offset 204 T Offset 369 QTC Fredericia 370 Diagnosis Sinus tachycardia Otherwise normal ECG When compared with ECG of 22-MAY-2024 21:46, T wave inversion no longer evident in Lateral leads See ED provider note for full interpretation and clinical correlation Confirmed by Candice Maria ([id number]) on 06/19/2025 1:39:26 PM Normal [facility]3] Lactateon 06-18-2025 Lactate [Moles/Vol] 1.2 mmol/L 0.4 - 2. 0 mmol/L [facility] Lactate [Moles/Vol] 1.2 mmol/L Normal 0.4-2.0 [facility] Comment on above: Order Comment: Venip uncture immediately after or during the administration of Metamizole may lead to falsely low results. Testing should be performed immediately prior to Metamizole dosing. Performed By: #### 2 524-7 #### KARUNA VILLANUEVA ([id number]) [facility] ([facility]) [address] [place] [address] 32171 Lactate [Moles/Vol]on 2024 Interpretation and review of laboratory results Normal [facility] Venipuncture immedia tely after or during the administration of Metamizole may lead to falsely low results. Testing should be performed immediately prior to Metamizole dosing. [facility] Magnesiumon 06-18-2025 Magnesium [Mass/Vol] 1.42 mg/dL Low 1.60 - 2.40 mg/dL [facility] Magnesium [Mass/Vol] 1.42 mg/dL Low 1.60-2.40 [facility] Comment on above: Performed By: #### 1 9123-9 #### KARUNA VILLANUEVA ([id number]) [facility] ([facility]) [address] [place] [address] Magnesium [Mass/Vol]on 06-18 Interpretation and review of laboratory results Abnormal [facility] Urinalysis complete W Reflex Culture panel (U)on 06-18-2025 Appearance (U) Clear Clear [facility] Bilirubin (U) [Mass/Vol] Negative NEGATIVE mg/dL [facility] Color (U) Light-Yellow Light-Yellow , Yellow, Dark-Yellow [facility] Glucose Auto test strip (U) [Mass/Vol] Normal Normal mg/dL [facility] Interpretation and review of laboratory results Abnormal [facility] Ketones (U) [Mass/Vol] Negative NEGATIVE mg/dL [facility] Leukocyte esterase Auto test strip Ql (U) Negative NEGATIVE [facility] Nitrite Auto test strip Ql (U) Negative NEGATIVE [facility] pH (U) 6.0 [pH] 5.0, 5.5, 6.0, 6.5, 7.0, 7.5, 8.0 [facility] Protein (U) [Mass/Vol] Negative NEGATIVE, 10 (TRACE), 20 (TRACE) mg/dL [facility] RBC (U) [#/Vol] Negative NEGATIVE mg/dL [facility] Specific gravity (U) [Rel density] 1.038 Abnormal 1.005 - 1.035 [facility] Urobilinogen (U) [Mass/Vol] Normal Normal mg/dL [facility] Appearance (U) Clear Normal Clear [facility] Comment on above: Performed By: #### 5 8077-9 #### KARUNA VILLANUEVA ([id number]) [facility] ([facility]) [facility] [place] [address] Bilirubin (U) [Mass/Vol] Negative Normal NEGATIVE [facility] Comment on above: Performed By: #### 5 8077-9 #### KARUNA VILLANUEVA ([id number]) [facility] ([facility]) [facility] [place] [address] Color (U) Light-Yellow Normal Light-Yellow , Yellow, Dark-Yellow [facility] Comment on above: Performed By: #### 5 8077-9 #### KARUNA VILLANUEVA ([id number]) [facility] ([facility]) [address] [place] [address] 26852 Glucose Auto test strip (U) [Mass/Vol] Normal Normal Normal [facility] Comment on above: Performed By: #### 5 8077-9 #### KARUNA VILLANUEVA ([id number]) [facility] ([facility]) [address] [place] [address] 99852 Ketones (U) [Mass/Vol] Negative Normal NEGATIVE [facility] Comment on above: Performed By: #### 5 8077-9 #### KARUNA VILLANUEVA ([id number]) [facility] ([facility]) [address] [place] [address] 44980 Leukocyte esterase Auto test strip Ql (U) Negative Normal NEGATIVE [facility] Comment on above: Performed By: #### 5 8077-9 #### KARUNA VILLANUEVA ([id number]) [facility] ([facility]) [address] [place], [place] [address] Nitrite Auto test strip Ql (U) Negative Normal NEGATIVE [facility] Comment on above: Performed By: #### 5 8077-9 #### KARUNA VILLANUEVA ([id number]) [facility] ([facility]) [address] [place] [address] 61417 pH (U) 6.0 [pH] Normal 5.0, 5.5, 6.0, 6.5, 7.0, 7.5, 8.0 [facility] Comment on above: Performed By: #### 5 8077-9 #### KARUNA VILLANUEVA ([id number]) [facility] ([facility]) [address] [place] [address] 11303 Protein (U) [Mass/Vol] Negative Normal NEGATIVE, 10 (TRACE), 20 (TRACE) [facility] Comment on above: Performed By: #### 5 8077-9 #### KARUNA VILLANUEVA ([id number]) [facility] ([facility]) [address] [place] [address] 08817 RBC (U) [#/Vol] Negative Normal NEGATIVE [facility] Comment on above: Performed By: #### 5 8077-9 #### KARUNA VILLANUEVA ([id number]) [facility] ([facility]) [address] [place], [place] [address] Specific gravity (U) [Rel density] 1.038 Normal 1.005-1.035 [facility] Comment on above: Performed By: #### 5 8077-9 #### KARUNA VILLANUEVA ([id number]) [facility] ([facility]) [address] [place], [place] [address] Urobilinogen (U) [Mass/Vol] Normal Normal Normal [facility] Comment on above: Performed By: #### 5 8077-9 #### KARUNA VILLANUEVA ([id number]) [facility] ([facility]) [address] [place] [address] XR CHEST 1 VIEWon 06-18-2025 XR CHEST 1 VIEW Interpreted By: Astrid Meng, STUDY: XR CHEST 1 VIEW; 06/18/2025 11:57 pm INDICATION: Signs/Symptoms:pneumonia. COMPARISON: 05/22/2024 ACCESSION NUMBER(S): [id number] ORDERING CLINICIAN: MARIELA SCHULZ FINDINGS: AP radiograph of the chest was provided. Interval placement of a right IJ MediPort with tip projecting over the right atrium. CARDIOMEDIASTINAL SILHOUETTE: Cardiomediastinal silhouette is normal in size and configuration. LUNGS: No focal consolidation, pleural effusion or sizable pneumothorax seen. ABDOMEN: No remarkable upper abdominal findings. BONES: No acute osseous changes. IMPRESSION: 1. No focal consolidation. MACRO: None Signed by: Astrid Zaidi 06/19/2025 12:33 AM Dictation workstation: [id number] Normal [facility] XR Chest Single viewon 06-18 Radiology Study observation (narrative) [facility] Work Phone: Plastic Surgery Visit Report on 06-15-2025 Plastic Surgery Visit Report [facility] [address], [address] [place] [address] OFFICE VISIT Date of Service: 06/15/25 MR#: [id number] Acct: [id number] Name: SHAUNA RAINEY Rep #: [id number] : 1995 Provider: Dr. Michael Pantoja MD Age/Sex: 29/F Location: [facility] Status: Signed with Addenda ADDENDUM by Dr. Michael Pantoja MD on 06/15/25 at 1628 Assessment and Plan (No Qualifiers) Assessment and Plan (1) Invasive ductal carcinoma of left breast: Status: Acute Comment: Left breast???3 biopsied, 4 lesions total Plan: . (2) HER2-positive carcinoma of left breast: Status: Acute (3) Encounter for breast reconstruction following mastectomy: Status: Acute 06/15/25 1628 Date Michael Pantoja MD cc: * Signed Intake Vital Signs 05/30/25 09:13 06/08/25 14:00 06/15/25 13:51 Height 5 ft 5 ft Weight: 169 lb BMI 33.0 BP 91/67 127/80 H Blood Pressure Location Rt brachial Rt brachial Position Sitting Sitting Respiration 17 18 Pulse 98 108 H Pulse Source Monitor Monitor Temp 100 F H Pulse Oximetry (%) 100 95 Oxygen Delivery Method room air room air Intake Visit Reasons: SURGERY CONSULT Chief Complaint: discuss breast surgery Is patient in pain?: No Allergies No Known Allergies Allergy (Verified 06/15/25 13:50) Medications ???Medication ???Instructions ???Recorded ???Confirmed ???Type acetaminophen 500 mg capsule 1,000 mg PO Q6H PRN pain 02/12/25 06/15/25 History dexamethasone 4 mg tablet 8 mg (2 x 4 mg) PO .COMPLEX #60 06/15/25 Rx tabs lidocaine-prilocaine 2.5 %-2.5 % 1 applic topical ONCE PRN Port 06/15/25 Rx topical cream access port access 30 days #30 grams ondansetron 8 mg disintegrating 8 mg PO Q8H PRN nausea and 5 06/15/25 Rx tablet vomiting #30 tabs prochlorperazine maleate 10 mg 10 mg PO Q6H PRN nausea and 06/15/25 Rx tablet vomiting #30 tabs MAGIC MOUTH WASH (BMX) 180 mL 15 ml PO .Q6HR #180 mL 06/07/25 Rx suspension amoxicillin 875 mg tablet 875 mg PO BID 06/07/25 06/15/25 Hi story benzonatate 200 mg capsule 200 mg PO TID PRN 06/07/25 5 History brompheniramine-pseudoeph edrine-DM 10 ml PO PRN 06/07/25 06/15/25 H istory 2 mg-30 mg-10 mg/5 mL oral syrup guaifenesin 1,200 mg tablet, 1,200 mg PO BID #30 tabs 06/07/25 06/15/25 Rx extended release 12 hr PFSH Medical History Mucositis Sore throat Cough Encounter for antineoplastic chemotherapy and immunotherapy Encounter for education Wears glasses Non-smoker Shortness of breath on exertion History of echocardiogram Anemia Axillary lymphadenopathy Surgical History History of wisdom tooth extraction delivery delivered Family History Other No pertinent family history Social History Smoking Status: Never smoker alcohol intake: never HPI SURGERY CONSULT Details: HPI from February 2025: Shauna Rainey is a delightful 29-year-old female [...] the left demonstrated ductal carcinoma grade 2/3, ER/IL negative and HER2 positive (these were obtained in [place]). There were no abnormal or large left axillary lymph nodes. Patient had menses at age of 13 years of age, and her first child at the age of 21. She has 3 children and had them via sections (three boys). She breast-fed all of them. Patient currently sees Dr. [place] for oncology (PET scan denied by insurance, but had bone scan which did not demonstrate any distant metastases). She denies any family history of breast [...] of Reconstruction: Likely bilateral Prior Breast Surgery: Onl (more content not included)... Normal [facility] Surgery Visit Reporton 06-08 Surgery Visit Report [facility] [address] [place] [address] OFFICE VISIT Date of Service: 06/08/25 MR#: [id number] Acct: [id number] Name: SHAUNA RAINEY Rep #: [id number] : 1995 Provider: Dr. Tamiko aguero MD Age/Sex: 29/F Location: [facility] Status: Signed Intake Vital Signs 05/30/25 09:13 06/07/25 09:22 06/08/25 14:00 Height 5 ft 5 ft 5 ft Weight: 169 lb BMI 33.0 BP 91/67 Blood Pressure Location Rt brachial Position Sitting Respiration 17 Pulse 98 Pulse Source Monitor Temp 100 F H Pulse Oximetry (%) 100 Oxygen Delivery Method room air Intake Visit Reasons: DISCUSS BREAST SX Chief Complaint: discuss breast surgery Is patient in pain?: No Allergies No Known Allergies Allergy (Verified 06/08/25 14:01) Medications ???Medication ???Instructions ???Recorded ???Confirmed ???Type acetaminophen 500 mg capsule 1,000 mg PO Q6H PRN pain 02/12/25 06/08/25 History dexamethasone 4 mg tablet 8 mg (2 x 4 mg) PO .COMPLEX #60 06/08/25 Rx tabs lidocaine-prilocaine 2.5 %-2.5 % 1 applic topical ONCE PRN Port 06/08/25 Rx topical cream access port access 30 days #30 grams ondansetron 8 mg disintegrating 8 mg PO Q8H PRN nausea and 5 06/08/25 Rx tablet vomiting #30 tabs prochlorperazine maleate 10 mg 10 mg PO Q6H PRN nausea and 06/08/25 Rx tablet vomiting #30 tabs MAGIC MOUTH WASH (BMX) 180 mL 15 ml PO .Q6HR #180 mL 06/07/25 Rx suspension amoxicillin 875 mg tablet 875 mg PO BID 06/07/25 06/08/25 Hi story benzonatate 200 mg capsule 200 mg PO TID PRN 06/07/25 5 History brompheniramine-pseudoeph edrine-DM 10 ml PO PRN 06/07/25 06/08/25 H istory 2 mg-30 mg-10 mg/5 mL oral syrup guaifenesin 1,200 mg tablet, 1,200 mg PO BID #30 tabs 06/07/25 06/08/25 Rx extended release 12 hr PFSH Medical History Mucositis Sore throat Cough Encounter for antineoplastic chemotherapy and immunotherapy Encounter for education Wears glasses Non-smoker Shortness of breath on exertion History of echocardiogram Anemia Axillary lymphadenopathy Surgical History History of wisdom tooth extraction delivery delivered Family History Other No pertinent family history Social History Smoking Status: Never smoker alcohol intake: never HPI HPI HPI: 29-year-old female presents to discuss surgery status post neoadjuvant chemotherapy due to left breast cancer. Patient's last neoadjuvant treatment date is June 20, 2025. Patient also has an upcoming appointment with Dr. Pantoja as she plans on getting bilateral mastectomies with reconstruction. Patient is aware that Dr. Pantoja's last day here is August 08 and he will be at [facility] and she will plan to do follow-up appointments with him up at [facility]. ROS General General: Yes weight change, fatigue [...] No tingling Exam Const General: cooperative, healthy appearing, comfortable and no acute distress HENMT Head: normocephalic and atraumatic Neck Neck: supple Resp Effort Inspection: normal respiratory effort Cardio Rate: regular rate GI Inspection: non-distended Skin General: no rashes or lesions noted Neuro Ge (more content not included)... Normal [facility] Absolute lymphocyte countOrd ered By: Ara Franklin on 06-07-2025 Lymphocytes Auto (Unsp spec) [#/Vol] 1.59 10*3/uL 0.83-4.51 [facility] Absolute neutrophil countOrd ered By: Ara Franklin on 06-07-2025 Neutrophils (Bld) [#/Vol] 3.6 10*3/uL 2.0-7.7 [facility] Anion gap in Serum or Plasma Ordered By: Ara Franklin on 06-07-2025 Anion gap [Moles/Vol] 11 mmol/L 5-15 [facility] BUN/creatinine ratioOrdered By: Ara Franklin on 06-07-2025 Urea nitrogen/Creatinine [Mass ratio] 11.7 mg/mg 10- [facility] Bilirubin, totalOrdered By: Ara Franklin on 06-07-2025 Bilirubin [Mass/Vol] 0.20 mg/dL 0.00-1.30 [facility] Blood band neutrophil count as percentage of total leukocytesOrdered By: Ara Franklin on 06-07-2025 Band form neutrophils/100 WBC (Bld) 19 % High 0-5 [facility] Blood lymphocytes/100 leukoc ytesOrdered By: Ara Franklin on 06-07-2025 Lymphocytes/100 WBC (Bld) 26 % 19-41 [facility] Blood metamyelocytes/100 ruddy kocytesOrdered By: [facility] on 06-07-2025 Metamyelocytes/100 WBC (Bld) 1 % 0-1 [facility] Blood monocytes/100 leukocyt esOrdered By: [facility] Rigoberto on 06-07-2025 Monocytes/100 WBC (Bld) 11 % High 0-10 [facility] Blood polychromasia detectio n by light microscopyOrdered By: [facility] on 06-07-2025 Polychromasia LM Ql (Bld) 1+ [facility] Blood segmented neutrophils/ 100 leukocytesOrdered By: [facility] on 06-07-2025 Segmented neutrophils/100 WBC (Bld) 40 % Low 47-70 [facility] CBC W/Diff, Automatedon 05-11 PATH REV Reviewed Normal [facility] Comment on above: Result Comment: ADEQ AUTE LEUKOCYTES WITH LEFT SHIFT OF THE GRANULOCYTES AND TOXIC CHANGES. NORMOCYTIC NORMOCHROMIC ANEMIA WITH MILD ANISOCYTOSIS, 1+ OVALOCYTES, AND RARE SCHISTOCYTES. ADEQAUTE PLATELETS. Corrine Ramos MD 06/07/2025 AMENDED REPORT 06/07/25 1209 PATH REV previously reported as: December meme Performed By: #### L 501.2300 #### [facility] [address] [place], [address] Carbon dioxide, total [Moles /volume] in Central venous bloodOrdered By: Ara Franklin on 06-07-2025 CO2 [Moles/Vol] 25.7 mmol/L 21.0-32.0 [facility] Chloride assayOrdered By: Huong Franklin on 06-07-2025 Chloride [Moles/Vol] 106 mmol/L 98-108 [facility] Comprehensive Metabolic Prof ilon 06-07-2025 Albumin [Mass/Vol] 3.9 g/dL Normal 3.5-5.0 [facility] Comment on above: Performed By: #### L 501.2300 #### [facility] [address] [place], [address] Albumin/Globulin [Mass ratio] 1.5 {ratio} Normal 0.9-2.4 [facility] Comment on above: Performed By: #### L 501.2300 #### [facility] [address] [place], [address] ALK PHOS 81 U/L Normal 35-104 [facility] Comment on above: Performed By: #### L [id number] #### [facility] [address] [place], [address] ALT [Catalytic activity/Vol] 24 U/L Normal <=34 [facility] Comment on above: Performed By: #### L [id number] #### [facility] [address] [place], [address] AST [Catalytic activity/Vol] 17 U/L Normal <=31 [facility] Comment on above: Performed By: #### L [id number] #### [facility] [address] [place], [address] Bilirubin [Mass/Vol] 0.20 mg/dL Normal 0.00-1.30 [facility] Comment on above: Performed By: #### L [id number] #### [facility] [address] [place], [address] BUN/CRE 11.7 RATIO Normal 10-20 [facility] Comment on above: Performed By: #### L [id number] #### [facility] [address] [place], [address] Calcium [Mass/Vol] 9.1 mg/dL Normal 7.6-11.0 [facility] Comment on above: Performed By: #### L [id number] #### [facility] [address] [place], [address] Chloride [Moles/Vol] 106 mmol/L Normal 98-108 [facility] Comment on above: Performed By: #### L [id number] #### [facility] [address] [place], [address] CO2 [Moles/Vol] 25.7 mmol/L Normal 21.0-32.0 [facility] Comment on above: Performed By: #### L [id number] #### [facility] [address] [place], [address] Creatinine [Mass/Vol] 0.60 mg/dL Low 0.70-1.20 [facility] Comment on above: Performed By: #### L [id number] #### [facility] [address] [place], [address] ECRCL 125.33 ml/min Normal 50-250 [facility] Comment on above: Performed By: #### L 501.2300 #### [facility] [address] [place], [address] GAP 11 Normal 5-15 [facility] Comment on above: Performed By: #### L [id number] #### [facility] [address] [place], [address] GFR/1.73 sq M.predicted among non-blacks MDRD (S/P/Bld) [Vol rate/Area] 125 mL/min/{1.73_m2} Normal >60 [facility] Comment on above: Result Comment: mL/m in/1.73m2 CKD-EPI Creatinine Equation (2020) Performed By: #### L 501.2300 #### [facility] [address] [place], [address] Globulin (S) [Mass/Vol] 2.7 g/dL Normal 2.2-4.2 [facility] Comment on above: Performed By: #### L 501.2300 #### [facility] [address] [place], [address] Glucose [Mass/Vol] 94 mg/dL Normal 70-99 [facility] Comment on above: Performed By: #### L [id number] #### [facility] [address] [place], [address] Potassium [Moles/Vol] 3.4 mmol/L Normal 3.3-5.1 [facility] Comment on above: Performed By: #### L [id number] #### [facility] [address] [place], [address] Sodium [Moles/Vol] 142 mmol/L Normal 133-145 [facility] Comment on above: Performed By: #### L [id number] #### [facility] [address] [place], [address] T PROT 6.6 g/dL Normal 5.9-8.4 [facility] Comment on above: Performed By: #### L [id number] #### [facility] [address] [place], [address] Urea nitrogen [Mass/Vol] 7 mg/dL Normal 4-19 [facility] Comment on above: Performed By: #### L 501.2300 #### [facility] [address] [place], [address] Erythrocyte distribution wid th ratioOrdered By: Ara Franklin on 06-07-2025 Erythrocyte distribution width (RBC) [Ratio] 16.6 % High 11.6-14.6 [facility] Erythrocyte distribution wid th standard deviationOrdered By: Ara Franklin on 06-07-2025 Erythrocyte distribution width (RBC) [Ratio] 58.4 fl High 35.1-43.9 [facility] Erythrocyte morphology asses smentOrdered By: [facility] on 06-07-2025 RBC morphology finding Nom (Bld) N CYTIC NORMAL NORM C&C [facility] Glomerular filtration rate ( GFR) estimation/1.73 sq m using serum, plasma, or whole bOrdered By: [facility] on 06-07-2025 GFR/1.73 sq M.predicted among non-blacks MDRD (S/P/Bld) [Vol rate/Area] 125 mL/min/{1.73_m2} >60 [facility] Comment on above: mL/min/1.73m2 CKD-EP I Creatinine Equation (2020) Hematocrit Auto (Bld) [Volum e fraction]Ordered By: Ara Fraknlin on 06-07-2025 Hematocrit (Bld) [Volume fraction] 32.3 % Low 37-47 [facility] Hemoglobin measurementOrdere d By: [facility] on 06-07-2025 Hemoglobin (Bld) [Mass/Vol] 10.8 g/dL Low 12.0-15.0 [facility] - Chemistry and C hemistry - challengeOrdered By: [facility] on 06-07-2025 AST [Catalytic activity/Vol] 17 U/L <32 [facility] MCV (mean corpuscular volume ) determinationOrdered By: [facility] on 06-07-2025 MCV (RBC) [Entitic vol] 95.8 fL 81-99 [facility] Magnesiumon 06-07-2025 Magnesium [Mass/Vol] 1.7 mg/dL Normal 1.5-2.2 [facility] Comment on above: Performed By: #### L 414.6756 #### [facility] [address] [place], [address] Magnesium measurement (mass/ volume)Ordered By: Ara Franklin on 06-07-2025 Magnesium (Unsp spec) [Mass/Vol] 1.7 mg/dL 1.5-2.2 [facility] Mean corpuscular hemoglobin (MCH) determinationOrdered By: Ara Franklin on 06-07-2025 MCH (RBC) [Entitic mass] 32.0 pg 27.0-32.0 [facility] Mean corpuscular hemoglobin concentration (MCHC) determinationOrdered By: Ara Franklin on 06-07-2025 MCHC (RBC) [Mass/Vol] 33.4 g/dL 32-36 [facility] Mean platelet volume determi nationOrdered By: Ara Franklin on 06-07-2025 Platelet mean volume (Bld) [Entitic vol] 10.0 fL 6.2-12.0 [facility] Myelocyte %Ordered By: Manda Franklin on 06-07-2025 Myelocytes/100 WBC (Bld) 3 % High 0-0 [facility] Oncology Visit Reporton 05-11 Oncology Visit Report [facility] [place] [facility] [address] [place] [address] OFFICE VISIT Date of Service: 06/07/2522 MR#: [id number] Acct: [id number] Name: SHAUNA RAINEY Rep #: [id number] : 1995 From: Sheila Eubanks NP, NP -C Age/Sex: 29/F Location: [facility] Status: Signed HPI Subjective Date of Service 06/07/25 Chief Complaint acute visit- sore throat History of Present Illness 29-year-old female premenopausal [...] 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 January 25, [...] FINAL ASSESSMENT BI-RADS 6: KNOWN BIOPSY-PROVEN MALIGNANCY. February 14, 2025 bone scan: IMPRESSION: No scintigraphic evidence of osseous metastatic disease. February 21, 2025 chest abdomen and pelvis CT: IMPRESSION: Small umbilical hernia containing fat. Follicles are seen in both ovaries more prominent on the left side. Treatment summary and response: [facility] March 07, 2025 Interval History The patient is presenting to clinic for an acute visit with c/o hoarseness, cough and sore throat and mouth sores. States on Wednesday06/04/25 developed mild sore throat and raspy voice and cough, occasionally productive. Describes sputum at thin, blood tinged. Wednesday woke unable to use voice. Was evaluated at a local urgent care yesterday, rapid strep negative. Given rx for amoxicillin. Has had three doses of atb. Believes throat pain improved, 02/15. Has remained afebrile all throughout.T max 99. Took one dose of Tylenol 3 days ago for headache, otherwise no otc antipyretics. No increase in diarrhea, estimates 5-6 per day. Slows with loperamide. Specifically denies dizziness, headache, ear pain, tearing, CP, palpitations, SOB, wheezing, abd pain, N/V, abd pain, swelling of her extremities, numbness/tingling. [facility] Medical History (Updated 06/07/25 @ 10:29 by Sheila Eubanks [employer]PERATOR, [employer] OPERATOR-C) Mucositis Sore throat Cough Encounter for antineoplastic chemotherapy and immunotherapy Encounter for education Wears glasses Non-smoker Shortness of breath on exertion History of echocardiogram Anemia Axillary lymphadenopathy Surgical History History of wisdom tooth extraction delivery delivered Family History Other No pertinent family history Social History Smoking Status: Never smoker alcohol intake: never ROS ROS Narrative Negative except as documented in the interval HPI Intake Vital Signs 05/30/25 09:13 06/07/25 09:22 Height 5 ft 5 ft Weight: 163 lb BMI 31.8 BP 91/66 Blood Pressure Location Lt brachial Position Sitting Respiration 14 Pulse 107 H Pulse Source Monitor Temp 97.9 F Temperature Source Temporal Artery Pulse Oximetry (%) 98 Oxygen Delivery Method room air 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 Normal [facility] Platelet countOrdered By: Huong Franklin on 06-07-2025 Platelets (Bld) [#/Vol] 174 10*3/uL 150-450 [facility] Platelet estimateOrdered By: Ara Franklin on 06-07-2025 Platelets LM Ql (Bld) ADEQUATE ADEQ [facility] Potassium measurement (mass/ volume)Ordered By: Ara Franklin on 06-07-2025 Potassium (Unsp spec) [Mass/Vol] 3.4 mmol/L 3.3-5.1 [facility] RBC Auto (Bld) [#/Vol]Ordere d By: Ara Franklin on 06-07-2025 RBC (Bld) [#/Vol] 3.37 10*6/uL Low 4.2-5.4 [facility] Review by pathologistOrdered By: Ara Franklin on 06-07-2025 Pathologist review Rohit (Unsp spec) [Interp] Reviewed [facility] Comment on above: Previous reported re sult: Shanthi valentine Edited by: DELANEY on 06/07/25:1209ADEQAUTE LEUKOCYTES WITH LEFT SHIFT OF THE GRANULOCYTES AND TOXIC CHANGES.NORMOCYTIC NORMOCHROMIC ANEMIA WITH MILD ANISOCYTOSIS, 1+ OVALOCYTES, AND RARE SCHISTOCYTES.ADEQAUTE PLATELETS.Corrine Ramos MD 06/07/2025 AMENDED REPORT 06/07/25 1209 PATH REV previously reported as: Shanthi valentine Serum creatinine measurement (mass/volume)Ordered By: Ara Franklin on 06-07-2025 Creatinine [Mass/Vol] 0.60 mg/dL Low 0.70-1.20 [facility] Serum globulin measurementOr dered By: Ara Franklin on 06-07-2025 Globulin (S) [Mass/Vol] 2.7 g/dL 2.2-4.2 [facility] Serum glucose measurement (m ass/volume)Ordered By: Ara Franklin on 06-07-2025 Glucose [Mass/Vol] 94 mg/dL 70-99 [facility] Serum or plasma alanine mcdonald otransferase (ALT) measurementOrdered By: Ara Franklin on 06-07-2025 ALT [Catalytic activity/Vol] 24 U/L <35 [facility] Serum or plasma albumin ernestine urement (mass/volume)Ordered By: Ara Franklin on 06-07-2025 Albumin [Mass/Vol] 3.9 g/dL 3.5-5.0 [facility] Serum or plasma albumin/glob ulin mass ratioOrdered By: Ara Franklin on 06-07-2025 Albumin/Globulin [Mass ratio] 1.5 {ratio} 0.9-2.4 [facility] Serum or plasma alkaline chuckie sphatase measurementOrdered By: Ara Franklin on 06-07-2025 ALP [Catalytic activity/Vol] 81 U/L 35-104 [facility] Serum or plasma calcium ernestine urement (mass/volume)Ordered By: Ara Franklin on 06-07-2025 Calcium [Mass/Vol] 9.1 mg/dL 7.6-11.0 [facility] Serum or plasma urea nitroge n measurement (mass/volume)Ordered By: Ara Franklin on 06-07-2025 Urea nitrogen [Mass/Vol] 7 mg/dL 4-19 [facility] Sodium levelOrdered By: Marlys Franklin on 06-07-2025 Sodium [Moles/Vol] 142 mmol/L 133-145 [facility] Total cell countOrdered By: Ara Franklin on 06-07-2025 Cells counted Molgen (Bld/Tiss) [#] 100 MANUAL DIFF [facility] Total proteinOrdered By: Andrés Franklin on 06-07-2025 Protein [Mass/Vol] 6.6 g/dL 5.9-8.4 [facility] White blood cell (WBC) count Ordered By: Ara Franklin on 06-07-2025 WBC (Bld) [#/Vol] 6.1 10*3/uL 4.4-11.0 [facility] ONC Echo, Limited Studyon ONC Echo, Limited Study [facility] [address] [place] [address] ONC Echo, Limited Study 05/31/25 1352 MR#: [id number] Acct: [id number] Name: SHAUNA RAINEY Rep #: [id number] : 1995 29 From: Jayjay Mccabe MD Attending Dr: ROBERT Lamb Status: REG CLI Ordering Dr: Sheila Eubanks NP [employer] Date: 05/31/25 Location: [facility] Sex: F C Admitted: 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 Myocardial strain analysis was performed in this exam to aid in the assessment of cardiac function. Exam performed in department. Left Ventricle Normal LV size. The global longitudinal strain = -17.8 % (normal). The left ventricular ejection fraction is 65 %. No regional wall motion abnormalities noted. Right Ventricle Normal RV size. Normal systolic function. Atria Normal left atrium. Normal right atrium. Catheter is seen in the right atrium. Mitral Valve Normal mitral valve. Trivial mitral valve insufficiency. Tricuspid Valve Normal tricuspid valve. Mild (1+) tricuspid valve insufficiency. Aortic Valve Trisinus/trileaflet aortic valve. Pulmonic Valve Normal pulmonic valve. Great Vessels Normal aortic root. The pulmonary artery is normal size. Inferior vena cava collapse with respiration. Pericardium/Pleural No pericardial effusion. MMode/2D Measurements Calculations LVIDd: 4.8 cm IVSd: 0.94 cm LAV(MOD-sp4): 19.0 ml LVIDs: 3.1 cm LVPWd: 0.82 cm RVDd: 3.2 cm FS: 36.3 % LVAd ap4: 25.3 cm2 SV(MOD-sp4): 45.5 ml SV(sp4-el): 48.3 ml LVLd ap4: 7.3 cm SI(MOD-sp4): 26.1 ml/m2 EDV(MOD-sp4): 72.1 ml EDV(sp4-el): 74.4 ml LVAs ap4: 13.6 cm2 LVLs ap4: 6.0 cm ESV(MOD-sp4): 26.6 ml ESV(sp4-el): 26.2 ml EF(MOD-sp4): 63.1 % EF(sp4-el): 64.9 % LA A4 area: 10.5 cm2 RA A4 area: 9.7 cm2 Doppler Measurements Calculations TR max zachary: 188.5 cm/sec TR max P.6 mmHg ECHO/ONC Echo, Limited Study Interpretation Summary The left ventricular ejection fraction is 65 %. Normal LV size. The global longitudinal strain = -17.8 % (normal). Catheter is seen in the right atrium ___ Ordering Physician: Sheila Eubanks Referring Physician: Sheila Eubanks Performed By: Clyde Deal RCS 05/31/251814 Date Jayjay Mccabe MD CC: ROBERT Eubanks; YENNI Hartman Date Dictated: 05/31/25 1352 Date Transcribed: 05/31/251814 Bee Raiser: Signed Normal [facility] Automated lymphocyte count a s percentage of total leukocytesOrdered By: Ara Franklin on 05-30-2025 Lymphocytes/100 WBC Auto (Unsp spec) 11.1 % Low 19-41 [facility] Basophil percentageOrdered B y: Ara Franklin on 05-30-2025 Basophils/100 WBC (Bld) 0.1 % 0-1 [facility] CBC W/Diff, Automatedon 05-10 Absolute Lymph 0.81 X10 3/uL Low 0.83-4.51 [facility] Comment on above: Performed By: #### L 501.1829 #### [facility] [address] [place], [address] Absolute Neut 6.2 X10 3/uL Normal 2.0-7.7 [facility] Comment on above: Performed By: #### L 501.2300 #### [facility] [address] [place], [address] Basophils/100 WBC (Bld) 0.1 % Normal 0-1 [facility] Comment on above: Performed By: #### L 501.2300 #### [facility] [address] [place], [address] Eosinophils/100 WBC (Bld) 0.0 % Normal 0-5 [facility] Comment on above: Performed By: #### L 501.2300 #### [facility] [address] [place], [address] Erythrocyte distribution width (RBC) [Ratio] 17.6 % High 11.6-14.6 [facility] Comment on above: Performed By: #### L 501.2300 #### [facility] [address] [place], [address] Hematocrit (Bld) [Volume fraction] 34.5 % Low 37-47 [facility] Comment on above: Performed By: #### L 501.2300 #### [facility] [address] [place], [address] Hemoglobin (Bld) [Mass/Vol] 11.6 g/dL Low 12.0-15.0 [facility] Comment on above: Performed By: #### L 501.2300 #### [facility] [address] [place], [address] IG% 0.400 Normal 0.0-0.9 [facility] Comment on above: Result Comment: IG% - Immature Granulocytes (promyelocytes, myelocytes and metamyelocytes) > 1% indicates that a LEFT SHIFT is Present. Performed By: #### L 501.2300 #### [facility] [address] [place], [address] Lymphocytes/100 WBC (Bld) 11.1 % Low 19-41 [facility] Comment on above: Performed By: #### L 501.2300 #### [facility] [address] [place], [address] MCH (RBC) [Entitic mass] 31.7 pg Normal 27.0-32.0 [facility] Comment on above: Performed By: #### L 501.2300 #### [facility] [address] [place], [address] MCHC (RBC) [Mass/Vol] 33.6 g/dL Normal 32-36 [facility] Comment on above: Performed By: #### L 501.2300 #### [facility] [address] [place], [address] MCV (RBC) [Entitic vol] 94.3 fL Normal 81-99 [facility] Comment on above: Performed By: #### L 501.2300 #### [facility] [address] [place], [address] Monocytes/100 WBC (Bld) 2.9 % Normal 0-10 [facility] Comment on above: Performed By: #### L 501.2300 #### [facility] [address] [place], [address] Neutrophils/100 WBC (Bld) 85.5 % High 47-70 [facility] Comment on above: Performed By: #### L 501.2300 #### [facility] [address] [place], [address] Nucleated RBC (Bld) [#/Vol] 0 10*3/uL Normal 0-5 [facility] Comment on above: Performed By: #### L 501.2300 #### [facility] [address] [place], [address] Platelet mean volume (Bld) [Entitic vol] 9.2 fL Normal 6.2-12.0 [facility] Comment on above: Performed By: #### L 501.2300 #### [facility] [address] [place], [address] Platelets (Bld) [#/Vol] 195 10*3/uL Normal 150-450 [facility] Comment on above: Performed By: #### L 501.2300 #### [facility] [address] [place], [address] RBC (Bld) [#/Vol] 3.66 10*6/uL Low 4.2-5.4 [facility] Comment on above: Performed By: #### L 501.2300 #### [facility] [address] [place], [address] RDW SD 61.2 fl High 35.1-43.9 [facility] Comment on above: Performed By: #### L 501.2300 #### [facility] [address] [place], [address] WBC (Bld) [#/Vol] 7.3 10*3/uL Normal 4.4-11.0 [facility] Comment on above: Performed By: #### L [id number] #### [facility] [address] [place], [address] Comprehensive Metabolic Prof [facility] 05-30-2025 Albumin [Mass/Vol] 4.0 g/dL Normal 3.5-5.0 [facility] Comment on above: Performed By: #### L [id number] #### [facility] [address] [place], [address] Albumin/Globulin [Mass ratio] 1.4 {ratio} Normal 0.9-2.4 [facility] Comment on above: Performed By: #### L [id number] #### [facility] [address] [place], [address] ALK PHOS 82 U/L Normal 35-104 [facility] Comment on above: Performed By: #### L 501.2300 #### [facility] [address] [place], [address] ALT [Catalytic activity/Vol] 36 U/L High <=34 [facility] Comment on above: Performed By: #### L 501.2300 #### [facility] [address] [place], [address] AST [Catalytic activity/Vol] 18 U/L Normal <=31 [facility] Comment on above: Performed By: #### L 501.2300 #### [facility] [address] [place], [address] Bilirubin [Mass/Vol] 0.30 mg/dL Normal 0.00-1.30 [facility] Comment on above: Performed By: #### L 501.0 #### [facility] [address] [place], [address] BUN/CRE 22.3 RATIO High 10-20 [facility] Comment on above: Performed By: #### L 501.2300 #### [facility] [address] [place], [address] Calcium [Mass/Vol] 9.6 mg/dL Normal 7.6-11.0 [facility] Comment on above: Performed By: #### L 501.2300 #### [facility] [address] [place], [address] Chloride [Moles/Vol] 103 mmol/L Normal 98-108 [facility] Comment on above: Performed By: #### L 501.2300 #### [facility] [address] [place], [address] CO2 [Moles/Vol] 23.7 mmol/L Normal 21.0-32.0 [facility] Comment on above: Performed By: #### L 501.2300 #### [facility] [address] [place], [address] Creatinine [Mass/Vol] 0.52 mg/dL Low 0.70-1.20 [facility] Comment on above: Performed By: #### L 501.2300 #### [facility] [address] [place], [address] ECRCL 146.12 ml/min Normal 50-250 [facility] Comment on above: Performed By: #### L 501.2300 #### [facility] [address] [place], [address] GAP 13 Normal 5-15 [facility] Comment on above: Performed By: #### L 501.2300 #### [facility] [address] [place], [address] GFR/1.73 sq M.predicted among non-blacks MDRD (S/P/Bld) [Vol rate/Area] 130 mL/min/{1.73_m2} Normal >60 [facility] Comment on above: Result Comment: mL/m in/1.73m2 CKD-EPI Creatinine Equation (2020) Performed By: #### L 501.2300 #### [facility] [address] [place], [address] Globulin (S) [Mass/Vol] 2.9 g/dL Normal 2.2-4.2 [facility] Comment on above: Performed By: #### L 501.2300 #### [facility] [address] [place], [address] Glucose [Mass/Vol] 158 mg/dL High 70-99 [facility] Comment on above: Performed By: #### L 501.2300 #### [facility] [address] [place], [address] Potassium [Moles/Vol] 4.0 mmol/L Normal 3.3-5.1 [facility] Comment on above: Performed By: #### L 501.2300 #### [facility] [address] [place], [address] Sodium [Moles/Vol] 139 mmol/L Normal 133-145 [facility] Comment on above: Performed By: #### L 501.2300 #### [facility] [address] [place], [address] T PROT 7.0 g/dL Normal 5.9-8.4 [facility] Comment on above: Performed By: #### L 501.2300 #### [facility] [address] [place], [address] Urea nitrogen [Mass/Vol] 12 mg/dL Normal 4-19 [facility] Comment on above: Performed By: #### L 501.2300 #### [facility] [address] [place], [address] Eosinophil percentageOrdered By: Ara Franklin on 05-30-2025 Eosinophils/100 WBC (Bld) 0.0 % 0-5 [facility] Immature granulocytes/100 WB C Auto (Bld)Ordered By: Ara Franklin on 05-30-2025 Immature granulocytes/100 WBC (Bld) 0.400 % 0.0-0.9 [facility] Comment on above: IG% - Immature Granu locytes (promyelocytes, myelocytes and metamyelocytes) > 1% indicates that a LEFT SHIFT is Present. Magnesiumon 05-30-2025 Magnesium [Mass/Vol] 1.9 mg/dL Normal 1.5-2.2 [facility] Comment on above: Performed By: #### L 501.2300 #### [facility] [address] [place], [address] Monocyte percentageOrdered B y: Ara Franklin on 05-30-2025 Monocytes/100 WBC (Bld) 2.9 % 0-10 [facility] Nucleated red blood cell per centageOrdered By: Ara Franklin on 05-30-2025 Nucleated RBC/100 WBC (Bld) [Ratio] 0 % 0-5 [facility] Oncology Visit Reporton 05-[address] 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 January 25, [...] FINAL ASSESSMENT BI-RADS 6: KNOWN BIOPSY-PROVEN MALIGNANCY. February 14, 2025 bone scan: IMPRESSION: No scintigraphic evidence of osseous metastatic disease. February 21, 2025 chest abdomen and pelvis CT: IMPRESSION: Small umbilical hernia containing fat. Follicles are seen in both ovaries more prominent on the left side. Treatment summary and response: [facility] March 07, 2025 [facility] Medical History Encounter for antineoplastic chemotherapy and immunotherapy Encounter for education Wears glasses Non-smoker Shortness of breath on exertion History of echocardiogram Anemia Axillary lymphadenopathy Surgical History History of wisdom tooth extraction delivery delivered Family History Other No pertinent [...] addt'l complaints, except as documented, as per HPI and breast mass; Denies cough or dyspnea Gastrointestinal Gastrointestinal: Reports systems reviewed and no addt'l complaints, except as documented, diarrhea and other Details: Diarrhea manageable with Imodium ; Denies change in bowel habits, hematochezia or melena Genitourinary Genitourinary: Reports systems reviewed and no addt'l complaints, except as documented; Denies dysuria or hematuria Musculoskeletal Musculoskeletal: Reports [...] no addt'l complaints, except as documented; Denies lymphadenopa (more content not included)... Normal [facility] ,Urineon 05-30-2025 Beta HCG ( test) Ql (U) Negative Normal [facility] Comment on above: Order Comment: Result Comment: Very dilute urine specimens, as indicated by a low specific gravity, may not contain human resources hr representative levels of hCG. If is still suspected, a first morning urine specimen should be collected 48 hours later and tested. Performed By: #### L 400.7600 ####[facility] [address] [place], [place], [address] Urine testOrdered By: Sheila Eubanks on 05-30-2025 HCG ( test) Ql (U) Negative [facility] Comment on above: Very dilute urine sp ecimens, as indicated by a low specificgravity, may not contain human resources hr representative levels of hCG. If is still suspected, a first morning urinespecimen should be collected 48 hours later and tested. Absolute lymphocyte countOrd ered By: Ara Franklin on 05-09-2025 Lymphocytes Auto (Unsp spec) [#/Vol] 1.07 10*3/uL 0.83-4.51 [facility] Absolute neutrophil countOrd ered By: Ara Franklin on 05-09-2025 Neutrophils (Bld) [#/Vol] 5.3 10*3/uL 2.0-7.7 [facility] Anion gap in Serum or Plasma Ordered By: Ara Franklin on 05-09-2025 Anion gap [Moles/Vol] 12 mmol/L 5-15 [facility] Automated lymphocyte count a s percentage of total leukocytesOrdered By: Ara Franklin on 05-09-2025 Lymphocytes/100 WBC Auto (Unsp spec) 16.2 % Low 19-41 [facility] BUN/creatinine ratioOrdered By: Ara Franklin on 05-09-2025 Urea nitrogen/Creatinine [Mass ratio] 30.1 mg/mg High 10-20 [facility] Basophil percentageOrdered B y: Ara Franklin on 05-09-2025 Basophils/100 WBC (Bld) 0.2 % 0-1 [facility] Bilirubin, totalOrdered By: Ara Franklin on 05-09-2025 Bilirubin [Mass/Vol] 0.24 mg/dL Normal 0.00-1.30 [facility] Comment on above: Performed By: #### L 501.2300 #### [facility] [address] [place], [address] CBC W/Diff, Automatedon 10-0 Absolute Lymph 1.07 X10 3/uL Normal 0.83-4.51 [facility] Comment on above: Performed By: #### L 501.2300 #### [facility] [address] [place], [address] Absolute Neut 5.3 X10 3/uL Normal 2.0-7.7 [facility] Comment on above: Performed By: #### L 501.2300 #### [facility] [address] [place], [address] Basophils/100 WBC (Bld) 0.2 % Normal 0-1 [facility] Comment on above: Performed By: #### L 501.2300 #### [facility] [address] [place], [address] Eosinophils/100 WBC (Bld) 0.0 % Normal 0-5 [facility] Comment on above: Performed By: #### L 501.2300 #### [facility] [address] [place], [address] Erythrocyte distribution width (RBC) [Ratio] 17.1 % High 11.6-14.6 [facility] Comment on above: Performed By: #### L 501.2300 #### [facility] [address] [place], [address] Hematocrit (Bld) [Volume fraction] 36.8 % Low 37-47 [facility] Comment on above: Performed By: #### L 501.2300 #### [facility] [address] [place], [address] Hemoglobin (Bld) [Mass/Vol] 12.3 g/dL Normal 12.0-15.0 [facility] Comment on above: Performed By: #### L 501.2300 #### [facility] [address] [place], [address] IG% 0.500 Normal 0.0-0.9 [facility] Comment on above: Result Comment: IG% - Immature Granulocytes (promyelocytes, myelocytes and metamyelocytes) > 1% indicates that a LEFT SHIFT is Present. Performed By: #### L 501.2300 #### [facility] [address] [place], [address] Lymphocytes/100 WBC (Bld) 16.2 % Low 19-41 [facility] Comment on above: Performed By: #### L 501.2300 #### [facility] [address] [place], [address] MCH (RBC) [Entitic mass] 30.4 pg Normal 27.0-32.0 [facility] Comment on above: Performed By: #### L 501.2300 #### [facility] [address] [place], [address] MCHC (RBC) [Mass/Vol] 33.4 g/dL Normal 32-36 [facility] Comment on above: Performed By: #### L 501.2300 #### [facility] [address] [place], [address] MCV (RBC) [Entitic vol] 90.9 fL Normal 81-99 [facility] Comment on above: Performed By: #### L 501.2300 #### [facility] [address] [place], [address] Monocytes/100 WBC (Bld) 2.6 % Normal 0-10 [facility] Comment on above: Performed By: #### L 501.2300 #### [facility] [address] [place], [address] Neutrophils/100 WBC (Bld) 80.5 % High 47-70 [facility] Comment on above: Performed By: #### L 501.2300 #### [facility] [address] [place], [address] Nucleated RBC (Bld) [#/Vol] 0 10*3/uL Normal 0-5 [facility] Comment on above: Performed By: #### L 501.2300 #### [facility] [address] [place], [address] Platelet mean volume (Bld) [Entitic vol] 8.9 fL Normal 6.2-12.0 [facility] Comment on above: Performed By: #### L 501.2300 #### [facility] [address] [place], [address] Platelets (Bld) [#/Vol] 210 10*3/uL Normal 150-450 [facility] Comment on above: Performed By: #### L 501.2300 #### [facility] [address] [place], [address] RBC (Bld) [#/Vol] 4.05 10*6/uL Low 4.2-5.4 [facility] Comment on above: Performed By: #### L 501.2300 #### [facility] [address] [place], [address] RDW SD 56.4 fl High 35.1-43.9 [facility] Comment on above: Performed By: #### L 501.2300 #### [facility] [address] [place], [address] WBC (Bld) [#/Vol] 6.6 10*3/uL Normal 4.4-11.0 [facility] Comment on above: Performed By: #### L 501.2300 #### [facility] [address] [place], [address] Carbon dioxide, total [Moles /volume] in Central venous bloodOrdered By: Ara Franklin on 05-09-2025 CO2 [Moles/Vol] 21.4 mmol/L Normal 21.0-32.0 [facility] Comment on above: Performed By: #### L 501.2300 #### [facility] [address] [place], [address] Chloride assayOrdered By: Huong Franklin on 05-09-2025 Chloride [Moles/Vol] 104 mmol/L Normal 98-108 [facility] Comment on above: Performed By: #### L 501.0 #### [facility] [address] [place], [address] Comprehensive Metabolic Prof ilon 05-09-2025 ALK PHOS 70 U/L Normal 35-104 [facility] Comment on above: Performed By: #### L 501.2300 #### [facility] [address] [place], [address] BUN/CRE 30.1 RATIO High 10-20 [facility] Comment on above: Performed By: #### L 501.2300 #### [facility] [address] [place], [address] ECRCL 180.91 ml/min Normal 50-250 [facility] Comment on above: Performed By: #### L 501.2300 #### [facility] [address] [place], [address] GAP 12 Normal 5-15 [facility] Comment on above: Performed By: #### L 501.2300 #### [facility] [address] [place], [address] Potassium [Moles/Vol] 4.1 mmol/L Normal 3.3-5.1 [facility] Comment on above: Performed By: #### L 501.2300 #### [facility] [address] [place], [address] T PROT 6.9 g/dL Normal 5.9-8.4 [facility] Comment on above: Performed By: #### L 501.2300 #### [facility] [address] [place], [address] Comprehensive Metabolic Prof ilOrdered By: Ara Franklin on 05-09-2025 AST [Catalytic activity/Vol] 20 U/L Normal <=31 [facility] Comment on above: Performed By: #### L 501.2300 #### [facility] [address] [place], [place], [address] Eosinophil percentageOrdered By: Ara Franklin on 05-09-2025 Eosinophils/100 WBC (Bld) 0.0 % 0-5 [facility] Erythrocyte distribution wid th ratioOrdered By: Ara Franklin on 05-09-2025 Erythrocyte distribution width (RBC) [Ratio] 17.1 % High 11.6-14.6 [facility] Erythrocyte distribution wid th standard deviationOrdered By: Ara Franklin on 05-09-2025 Erythrocyte distribution width (RBC) [Ratio] 56.4 fl High 35.1-43.9 [facility] Glomerular filtration rate ( GFR) estimation/1.73 sq m using serum, plasma, or whole bOrdered By: Ara Franklin on 05-09-2025 GFR/1.73 sq M.predicted among non-blacks MDRD (S/P/Bld) [Vol rate/Area] 136 mL/min/{1.73_m2} Normal >60 [facility] Comment on above: mL/min/1.73m2 CKD-EP I Creatinine Equation (2020) Result Comment: mL/m in/1.73m2 CKD-EPI Creatinine Equation (2020) Performed By: #### L 501.2300 #### [facility] [address] [place], [address] Hematocrit Auto (Bld) [Volum e fraction]Ordered By: Ara Franklin on 05-09-2025 Hematocrit (Bld) [Volume fraction] 36.8 % Low 37-47 [facility] Hemoglobin measurementOrdere d By: Ara Franklin on 05-09-2025 Hemoglobin (Bld) [Mass/Vol] 12.3 g/dL 12.0-15.0 [facility] Immature granulocytes/100 WB C Auto (Bld)Or[facility]: [facility] on 05-09-2025 Immature granulocytes/100 WBC (Bld) 0.500 % 0.0-0.9 [facility] Comment on above: IG% - Immature Granu locytes (promyelocytes, myelocytes and metamyelocytes) > 1% indicates that a LEFT SHIFT is Present. MCV (mean corpuscular volume ) determinationOrdered By: Ara Franklin on 05-09-2025 MCV (RBC) [Entitic vol] 90.9 fL 81-99 [facility] Magnesiumon 05-09-2025 Magnesium [Mass/Vol] 1.9 mg/dL Normal 1.5-2.2 [facility] Comment on above: Performed By: #### L 501.2300 #### [facility] [address] [place], [address] Magnesium measurement (mass/ volume)Ordered By: Ara Franklin on 05-09-2025 Magnesium (Unsp spec) [Mass/Vol] 1.9 mg/dL 1.5-2.2 [facility] Mean corpuscular hemoglobin (MCH) determinationOrdered By: Ara Franklin on 05-09-2025 MCH (RBC) [Entitic mass] 30.4 pg 27.0-32.0 [facility] Mean corpuscular hemoglobin concentration (MCHC) determinationOrdered By: Ara Franklin on 05-09-2025 MCHC (RBC) [Mass/Vol] 33.4 g/dL 32-36 [facility] Mean platelet volume determi nationOrdered By: [facility] on 05-09-2025 Platelet mean volume (Bld) [Entitic vol] 8.9 fL 6.2-12.0 [facility] Monocyte percentageOrdered B y: Ara Franklin on 05-09-2025 Monocytes/100 WBC (Bld) 2.6 % 0-10 [facility] Neutrophil percentageOrdered By: [facility] Rigoberto on 05-09-2025 Neutrophils/100 WBC (Bld) 80.5 % High 47-70 [facility] Nucleated red blood cell per centageOrdered By: [facility] on 05-09-2025 Nucleated RBC/100 WBC (Bld) [Ratio] 0 % 0-5 [facility] Oncology Visit Reporton 10 Oncology Visit Report [facility] [address] 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 January 25, [...] FINAL ASSESSMENT BI-RADS 6: KNOWN BIOPSY-PROVEN MALIGNANCY. February 14, 2025 bone scan: IMPRESSION: No scintigraphic evidence of osseous metastatic disease. February 21, 2025 chest abdomen and pelvis CT: IMPRESSION: Small umbilical hernia containing fat. Follicles are seen in both ovaries more prominent on the left side. Treatment summary and response: [facility] March 07, 2025 Interval History The patient is presenting to clinic for an evaluation anticiapting she will begin c4 [facility]. C/o headaches intermittently, predated chemotherapy exposure. Diarrhea daily, estimates 2-5 episodes/day. Responds to loperamide, however she is reluctant to use it d/t rebound constipation. +N/V, no emesis. Prn antiemetics are helpful. + dry eye, using otc lubricant. Appetite fair, PO fluid intake 2L/day. LMP 04/08/25. Specifically denies rash, fever/chills, dizziness, CP, palpitations, cough, SOB, swelling of her extremities, numbness/tingling. [facility] Medical History (Updated 05/09/25 @ 10:36 by Sheila Eubanks [employer], [employer]) Encounter for antineoplastic chemotherapy and immunotherapy Encounter for education Wears glasses Non-smoker Shortness of breath on exertion History of echocardiogram Anemia Axillary lymphadenopathy Surgical History History of wisdom tooth extraction delivery delivered Family History Other No pertinent family history Social History Smoking Status: Never smoker alcohol intake: never ROS ROS Narrative Negative except as documented in the interval HPI Intake Vital Signs 03/29/25 09:07 04/26/25 09:01 05/09/25 08:43 Height 5 ft 5 ft 5 ft Weight: 166 lb 4 oz BMI 32.4 BP 105/73 Blood Pressure Location Rt brachial Position Sitting Respiration 16 Pulse 81 Pulse Source Monitor Temp 98.5 F Temperature Source Temporal Artery Pulse Oximetry (%) 99 Oxygen Delivery Method room air Intake Is patient in pain?: No Allergies No Known Allergies Allergy (Verified 05/09/25 08:48) Medications ???Medication ???Instructions ???Recorded ???Confirmed ???Type acetaminophen 500 mg capsule 1,000 mg PO Q6H PRN pain 02/12/25 05/09/25 History dexamethasone 4 mg tablet 8 mg (2 x 4 mg) PO .COMPLEX #60 05/09/25 Rx tabs lidocaine-prilocaine 2.5 %-2.5 % 1 applic topical ONCE PRN Port 05/09/25 Rx topical cream access port access 30 days #30 grams ondansetron 8 mg disintegrating 8 mg PO Q8H PRN nausea and 5 05/09/25 Rx tablet vomiting #30 tabs prochlorperazine maleate 10 mg 10 mg PO Q6H PRN nausea and 05/09/25 Rx tablet vomiting #30 tabs Laboratory Tests 05/09/25 08:34 WBC 6.6 Hgb (more content not included)... Normal [facility] Phosphoruson 05-09-2025 Phosphate [Mass/Vol] 4.2 mg/dL Normal 2.7-4.5 [facility] Comment on above: Performed By: #### L 501.0500 #### [facility] [address] [place], [place], [address] Platelet countOrdered By: Huong Franklin on 05-09-2025 Platelets (Bld) [#/Vol] 210 10*3/uL 150-450 [facility] Potassium measurement (mass/ volume)Ordered By: Ara Franklin on 05-09-2025 Potassium (Unsp spec) [Mass/Vol] 4.1 mmol/L 3.3-5.1 [facility] ,Urineon 05-09-2025 Beta HCG ( test) Ql (U) Negative Normal [facility] Comment on above: Order Comment: [id number] Result Comment: Very dilute urine specimens, as indicated by a low specific gravity, may not contain human resources hr representative levels of hCG. If is still suspected, a first morning urine specimen should be collected 48 hours later and tested. Performed By: #### L 501.2300 #### [facility] [address] [place], [address] RBC Auto (Bld) [#/Vol]Ordere d By: Ara Franklin on 05-09-2025 RBC (Bld) [#/Vol] 4.05 10*6/uL Low 4.2-5.4 [facility] Serum creatinine measurement (mass/volume)Ordered By: Ara Franklin on 05-09-2025 Creatinine [Mass/Vol] 0.42 mg/dL Low 0.70-1.20 [facility] Comment on above: Performed By: #### L 501.2300 #### [facility] [address] [place], [address] Serum globulin measurementOr dered By: Ara Franklin on 05-09-2025 Globulin (S) [Mass/Vol] 2.6 g/dL Normal 2.2-4.2 [facility] Comment on above: Performed By: #### L 501.2300 #### [facility] [address] [place], [address] Serum glucose measurement (m ass/volume)Ordered By: Ara Franklin on 05-09-2025 Glucose [Mass/Vol] 134 mg/dL High 70-99 [facility] Comment on above: Performed By: #### L 501.2300 #### [facility] [address] [place], [address] Serum or plasma alanine mcdonald otransferase (ALT) measurementOrdered By: Ara Franklin on 05-09-2025 ALT [Catalytic activity/Vol] 40 U/L High <=34 [facility] Comment on above: Performed By: #### L 501.2300 #### [facility] [address] [place], [address] Serum or plasma albumin ernestine urement (mass/volume)Ordered By: Ara Franklin on 05-09-2025 Albumin [Mass/Vol] 4.3 g/dL Normal 3.5-5.0 [facility] Comment on above: Performed By: #### L 501.2300 #### [facility] [address] [place], [address] Serum or plasma albumin/glob ulin mass ratioOrdered By: Ara Franklin on 05-09-2025 Albumin/Globulin [Mass ratio] 1.6 {ratio} Normal 0.9-2.4 [facility] Comment on above: Performed By: #### L 501.2300 #### [facility] [address] [place], [address] Serum or plasma alkaline chuckie sphatase measurementOrdered By: Ara Franklin on 05-09-2025 ALP [Catalytic activity/Vol] 70 U/L 35-104 [facility] Serum or plasma calcium ernestine urement (mass/volume)Ordered By: Ara Franklin on 05-09-2025 Calcium [Mass/Vol] 9.3 mg/dL Normal 7.6-11.0 [facility] Comment on above: Performed By: #### L 501.2300 #### [facility] [address] [place], [address] Serum or plasma urea nitroge n measurement (mass/volume)Ordered By: Ara Franklin on 05-09-2025 Urea nitrogen [Mass/Vol] 13 mg/dL Normal 4-19 [facility] Comment on above: Performed By: #### L 501.2300 #### [facility] [address] [place], [address] Sodium levelOrdered By: Marlys Franklin on 05-09-2025 Sodium [Moles/Vol] 138 mmol/L Normal 133-145 [facility] Comment on above: Performed By: #### L 501.2300 #### [facility] [address] [place], [place], [id number] Total proteinOrdered By: Andrés rhodes Rigoberto on 05-09-2025 Protein [Mass/Vol] 6.9 g/dL 5.9-8.4 [facility] Urine testOrdered By: Sheila Eubanks on 05-09-2025 HCG ( test) Ql (U) Negative [facility] Comment on above: Very dilute urine sp ecimens, as indicated by a low specificgravity, may not contain human resources hr representative levels of hCG. If is still suspected, a first morning urinespecimen should be collected 48 hours later and tested. White blood cell (WBC) count Ordered By: Ara Franklin on 05-09-2025 WBC (Bld) [#/Vol] 6.6 10*3/uL 4.4-11.0 [facility] Absolute lymphocyte countOrd ered By: Ara Franklin on 04-18-2025 Lymphocytes Auto (Unsp spec) [#/Vol] 1.20 10*3/uL 0.83-4.51 [facility] Absolute neutrophil countOrd ered By: Ara Franklin on 04-18-2025 Neutrophils (Bld) [#/Vol] 7.5 10*3/uL 2.0-7.7 [facility] Anion gap in Serum or Plasma Ordered By: Ara Franklin on 04-18-2025 Anion gap [Moles/Vol] 13 mmol/L 5-15 [facility] Automated lymphocyte count a s percentage of total leukocytesOrdered By: Ara Franklin on 04-18-2025 Lymphocytes/100 WBC Auto (Unsp spec) 13.2 % Low 19-41 [facility] BUN/creatinine ratioOrdered By: Ara Franklin on 04-18-2025 Urea nitrogen/Creatinine [Mass ratio] 30.5 mg/mg High 10-20 [facility] Basophil percentageOrdered B y: Ara Franklin on 04-18-2025 Basophils/100 WBC (Bld) 0.1 % 0-1 [facility] Bilirubin, totalOrdered By: Ara Franklin on 04-18-2025 Bilirubin [Mass/Vol] 0.24 mg/dL 0.00-1.30 [facility] CBC W/Diff, Automatedon 04-09-2024 Absolute Lymph 1.20 X10 3/uL Normal 0.83-4.51 [facility] Comment on above: Performed By: #### L 501.2300 #### [facility] [address] [place], [address] Absolute Neut 7.5 X10 3/uL Normal 2.0-7.7 [facility] Comment on above: Performed By: #### L 501.2300 #### [facility] [address] [place], [address] Basophils/100 WBC (Bld) 0.1 % Normal 0-1 [facility] Comment on above: Performed By: #### L 501.2300 #### [facility] [address] [place], [address] Eosinophils/100 WBC (Bld) 0.0 % Normal 0-5 [facility] Comment on above: Performed By: #### L 501.2300 #### [facility] [address] [place], [address] Erythrocyte distribution width (RBC) [Ratio] 16.1 % High 11.6-14.6 [facility] Comment on above: Performed By: #### L 501.2300 #### [facility] [address] [place], [address] Hematocrit (Bld) [Volume fraction] 37.0 % Normal 37-47 [facility] Comment on above: Performed By: #### L 501.2300 #### [facility] [address] [place], [address] Hemoglobin (Bld) [Mass/Vol] 12.2 g/dL Normal 12.0-15.0 [facility] Comment on above: Performed By: #### L 501.2300 #### [facility] [address] [place], [address] IG% 0.700 Normal 0.0-0.9 [facility] Comment on above: Result Comment: IG% - Immature Granulocytes (promyelocytes, myelocytes and metamyelocytes) > 1% indicates that a LEFT SHIFT is Present. Performed By: #### L 501.2300 #### [facility] [address] [place], [address] Lymphocytes/100 WBC (Bld) 13.2 % Low 19-41 [facility] Comment on above: Performed By: #### L 501.2300 #### [facility] [address] [place], [address] MCH (RBC) [Entitic mass] 29.8 pg Normal 27.0-32.0 [facility] Comment on above: Performed By: #### L 501.2300 #### [facility] [address] [place], [address] MCHC (RBC) [Mass/Vol] 33.0 g/dL Normal 32-36 [facility] Comment on above: Performed By: #### L 501.2300 #### [facility] [address] [place], [address] MCV (RBC) [Entitic vol] 90.5 fL Normal 81-99 [facility] Comment on above: Performed By: #### L 501.2300 #### [facility] [address] [place], [address] Monocytes/100 WBC (Bld) 2.9 % Normal 0-10 [facility] Comment on above: Performed By: #### L 501.2300 #### [facility] [address] [place], [address] Neutrophils/100 WBC (Bld) 83.1 % High 47-70 [facility] Comment on above: Performed By: #### L 501.2300 #### [facility] [address] [place], [address] Nucleated RBC (Bld) [#/Vol] 0 10*3/uL Normal 0-5 [facility] Comment on above: Performed By: #### L 501.2300 #### [facility] [address] [place], [address] Platelet mean volume (Bld) [Entitic vol] 8.9 fL Normal 6.2-12.0 [facility] Comment on above: Performed By: #### L 501.2300 #### [facility] [address] [place], [address] Platelets (Bld) [#/Vol] 252 10*3/uL Normal 150-450 [facility] Comment on above: Performed By: #### L 501.2300 #### [facility] [address] [place], [address] RBC (Bld) [#/Vol] 4.09 10*6/uL Low 4.2-5.4 [facility] Comment on above: Performed By: #### L 501.2300 #### [facility] [address] [place], [address] RDW SD 52.7 fl High 35.1-43.9 [facility] Comment on above: Performed By: #### L 501.2300 #### [facility] [address] [place], [address] WBC (Bld) [#/Vol] 9.1 10*3/uL Normal 4.4-11.0 [facility] Comment on above: Performed By: #### L 501.2300 #### [facility] [address] [place], [address] Carbon dioxide, total [Moles /volume] in Central venous bloodOrdered By: Ara Rigoberto on 04-18-2025 CO2 [Moles/Vol] 20.9 mmol/L Low 21.0-32.0 [facility] Chloride assayOrdered By: Huong donis Rigoberto on 04-18-2025 Chloride [Moles/Vol] 104 mmol/L 98-108 [facility] Comprehensive Metabolic Prof ilon 04-18-2025 Albumin [Mass/Vol] 4.3 g/dL Normal 3.5-5.0 [facility] Comment on above: Performed By: #### L 501.2300 #### [facility] [address] [place], [address] Albumin/Globulin [Mass ratio] 1.5 {ratio} Normal 0.9-2.4 [facility] Comment on above: Performed By: #### L 501.2300 #### [facility] [address] [place], [address] ALK PHOS 83 U/L Normal 35-104 [facility] Comment on above: Performed By: #### L 501.2300 #### [facility] [address] [place], [address] ALT [Catalytic activity/Vol] 108 U/L High <=34 [facility] Comment on above: Performed By: #### L 501.2300 #### [facility] [address] [place], [address] AST [Catalytic activity/Vol] 46 U/L High <=31 [facility] Comment on above: Performed By: #### L 501.2300 #### [facility] [address] [place], [address] Bilirubin [Mass/Vol] 0.24 mg/dL Normal 0.00-1.30 [facility] Comment on above: Performed By: #### L 501.2300 #### [facility] [address] [place], [address] BUN/CRE 30.5 RATIO High 10-20 [facility] Comment on above: Performed By: #### L 501.2300 #### [facility] [address] [place], [address] Calcium [Mass/Vol] 9.5 mg/dL Normal 7.6-11.0 [facility] Comment on above: Performed By: #### L 501.2300 #### [facility] [address] [place], [address] Chloride [Moles/Vol] 104 mmol/L Normal 98-108 [facility] Comment on above: Performed By: #### L 501.2300 #### [facility] [address] [place], [address] CO2 [Moles/Vol] 20.9 mmol/L Low 21.0-32.0 [facility] Comment on above: Performed By: #### L 501.2300 #### [facility] [address] [place], [address] Creatinine [Mass/Vol] 0.52 mg/dL Low 0.70-1.20 [facility] Comment on above: Performed By: #### L 501.2300 #### [facility] [address] [place], [address] ECRCL 145.14 ml/min Normal 50-250 [facility] Comment on above: Performed By: #### L 501.2300 #### [facility] [address] [place], [address] GAP 13 Normal 5-15 [facility] Comment on above: Performed By: #### L 501.2300 #### [facility] [address] [place], [address] GFR/1.73 sq M.predicted among non-blacks MDRD (S/P/Bld) [Vol rate/Area] 130 mL/min/{1.73_m2} Normal >60 [facility] Comment on above: Result Comment: mL/m in/1.73m2 CKD-EPI Creatinine Equation (2020) Performed By: #### L 501.2300 #### [facility] [address] [place], [address] Globulin (S) [Mass/Vol] 2.8 g/dL Normal 2.2-4.2 [facility] Comment on above: Performed By: #### L 501.2300 #### [facility] [address] [place], [address] Glucose [Mass/Vol] 160 mg/dL High 70-99 [facility] Comment on above: Performed By: #### L 501.2300 #### [facility] [address] [place], [address] Potassium [Moles/Vol] 4.1 mmol/L Normal 3.3-5.1 [facility] Comment on above: Performed By: #### L 501.2300 #### [facility] [address] [place], [address] Sodium [Moles/Vol] 138 mmol/L Normal 133-145 [facility] Comment on above: Performed By: #### L 501.2300 #### [facility] [address] [place], [address] T PROT 7.1 g/dL Normal 5.9-8.4 [facility] Comment on above: Performed By: #### L 501.2300 #### [facility] [address] [place], [address] Urea nitrogen [Mass/Vol] 16 mg/dL Normal 4-19 [facility] Comment on above: Performed By: #### L 501.2300 #### [facility] [address] [place], [address] Eosinophil percentageOrdered By: Ara Franklin on 04-18-2025 Eosinophils/100 WBC (Bld) 0.0 % 0-5 [facility] Erythrocyte distribution wid th ratioOrdered By: Ara Franklin on 04-18-2025 Erythrocyte distribution width (RBC) [Ratio] 16.1 % High 11.6-14.6 [facility] Erythrocyte distribution wid th standard deviationOrdered By: Ara Franklin on 04-18-2025 Erythrocyte distribution width (RBC) [Ratio] 52.7 fl High 35.1-43.9 [facility] Glomerular filtration rate ( GFR) estimation/1.73 sq m using serum, plasma, or whole bOrdered By: Ara Franklin on 04-18-2025 GFR/1.73 sq M.predicted among non-blacks MDRD (S/P/Bld) [Vol rate/Area] 130 mL/min/{1.73_m2} >60 [facility] Comment on above: mL/min/1.73m2 CKD-EP I Creatinine Equation (2020) Hematocrit Auto (Bld) [Volum e fraction][facility]: [facility] 04-18-2025 Hematocrit (Bld) [Volume fraction] 37.0 % 37-47 [facility] Hemoglobin measurementOrdere d By: Ara Franklin on 04-18-2025 Hemoglobin (Bld) [Mass/Vol] 12.2 g/dL 12.0-15.0 [facility] Immature granulocytes/100 WB C Auto (Bld)Ordered By: Ara Franklin on 04-18-2025 Immature granulocytes/100 WBC (Bld) 0.700 % 0.0-0.9 [facility] Comment on above: IG% - Immature Granu locytes (promyelocytes, myelocytes and metamyelocytes) > 1% indicates that a LEFT SHIFT is Present. Laboratory - Chemistry and C hemistry - challengeOrdered By: Ara Franklin on 04-18-2025 AST [Catalytic activity/Vol] 46 U/L High <32 [facility] MCV (mean corpuscular volume ) determinationOrdered By: Ara Franklin on 04-18-2025 MCV (RBC) [Entitic vol] 90.5 fL 81-99 [facility] Magnesiumon 04-18-2025 Magnesium [Mass/Vol] 1.9 mg/dL Normal 1.5-2.2 [facility] Comment on above: Performed By: #### L 501.2300 #### [facility] [address] [place], [address] Magnesium measurement (mass/ volume)Ordered By: Ara Franklin on 04-18-2025 Magnesium (Unsp spec) [Mass/Vol] 1.9 mg/dL 1.5-2.2 [facility] Mean corpuscular hemoglobin (MCH) determinationOrdered By: [facility] Rigoberto on 04-18-2025 MCH (RBC) [Entitic mass] 29.8 pg 27.0-32.0 [facility] Mean corpuscular hemoglobin concentration (MCHC) determinationOrdered By: [facility] Rigoberto on 04-18-2025 MCHC (RBC) [Mass/Vol] 33.0 g/dL 32-36 [facility] Mean platelet volume determi nationOrdered By: [facility] Rigoberto on 04-18-2025 Platelet mean volume (Bld) [Entitic vol] 8.9 fL 6.2-12.0 [facility] Monocyte percentageOrdered B y: Ara Franklin on 04-18-2025 Monocytes/100 WBC (Bld) 2.9 % 0-10 [facility] Neutrophil percentageOrdered By: [facility] Rigoberto on 04-18-2025 Neutrophils/100 WBC (Bld) 83.1 % High 47-70 [facility] Nucleated red blood cell per centageOrdered By: [facility] on 04-18-2025 Nucleated RBC/100 WBC (Bld) [Ratio] 0 % 0-5 [facility] Oncology Visit Reporton 04-09 Oncology Visit Report [facility] [place] [facility] [address] [place] [address] OFFICE VISIT Date of Service: 04/18/25910 MR#: [id number] Acct: [id number] Name: SHAUNA RAINEY Rep #: [id number] : 1995 From: Ara Franklin MD Age/Sex: 29/F Location: [facility] Status: Signed HPI Subjective Date of Service 04/18/25 Chief Complaint breast cancer History of Present [...] 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 January 25, [...] FINAL ASSESSMENT BI-RADS 6: KNOWN BIOPSY-PROVEN MALIGNANCY. February 14, 2025 bone scan: IMPRESSION: No scintigraphic evidence of osseous metastatic disease. February 21, 2025 chest abdomen and pelvis CT: IMPRESSION: Small umbilical hernia containing fat. Follicles are seen in both ovaries more prominent on the left side. Treatment summary and response: [facility] March 07, 2025 [facility] Medical History Encounter for education Wears glasses Non-smoker Shortness of breath on exertion History of echocardiogram Anemia Axillary lymphadenopathy Surgical History History of wisdom tooth extraction delivery delivered Family History Other No pertinent [...] addt'l complaints, except as documented, as per HPI and breast mass; Denies cough or dyspnea Gastrointestinal Gastrointestinal: Reports systems reviewed and no addt'l complaints, except as documented; Denies change in bowel habits, hematochezia or melena Genitourinary Genitourinary: Reports systems reviewed and no addt'l complaints, except as documented; Denies dysuria or hematuria Musculoskeletal Musculoskeletal: Reports [...] and no addt'l complaints, except as documented (more content not included)... Normal [facility] Phosphoruson 04-18-2025 Phosphate [Mass/Vol] 3.8 mg/dL Normal 2.7-4.5 [facility] Comment on above: Performed By: #### L 673.1835 #### [facility] [address] [place], [address] Platelet countOrdered By: Huong Franklin on 04-18-2025 Platelets (Bld) [#/Vol] 252 10*3/uL 150-450 [facility] Potassium measurement (mass/ volume)Ordered By: Ara Franklin on 04-18-2025 Potassium (Unsp spec) [Mass/Vol] 4.1 mmol/L 3.3-5.1 [facility] RBC Auto (Bld) [#/Vol]Ordere d By: Ara Franklin on 04-18-2025 RBC (Bld) [#/Vol] 4.09 10*6/uL Low 4.2-5.4 [facility] Serum creatinine measurement (mass/volume)Ordered By: Ara Franklin on 04-18-2025 Creatinine [Mass/Vol] 0.52 mg/dL Low 0.70-1.20 [facility] Serum globulin measurementOr dered By: Ara Franklin on 04-18-2025 Globulin (S) [Mass/Vol] 2.8 g/dL 2.2-4.2 [facility] Serum glucose measurement (m ass/volume)Ordered By: Ara Franklin on 04-18-2025 Glucose [Mass/Vol] 160 mg/dL High 70-99 [facility] Serum or plasma alanine mcdonald otransferase (ALT) measurementOrdered By: Ara Franklin on 04-18-2025 ALT [Catalytic activity/Vol] 108 U/L High <35 [facility] Serum or plasma albumin ernestine urement (mass/volume)Ordered By: Ara Franklin on 04-18-2025 Albumin [Mass/Vol] 4.3 g/dL 3.5-5.0 [facility] Serum or plasma albumin/glob ulin mass ratioOrdered By: Ara Franklin on 04-18-2025 Albumin/Globulin [Mass ratio] 1.5 {ratio} 0.9-2.4 [facility] Serum or plasma alkaline chuckie sphatase measurementOrdered By: Ara Franklin on 04-18-2025 ALP [Catalytic activity/Vol] 83 U/L 35-104 [facility] Serum or plasma calcium ernestine urement (mass/volume)Ordered By: Ara Franklin on 04-18-2025 Calcium [Mass/Vol] 9.5 mg/dL 7.6-11.0 [facility] Serum or plasma urea nitroge n measurement (mass/volume)Ordered By: Ara Franklin on 04-18-2025 Urea nitrogen [Mass/Vol] 16 mg/dL 4-19 [facility] Sodium levelOrdered By: Marlys krysta Rigoberto on 04-18-2025 Sodium [Moles/Vol] 138 mmol/L 133-145 [facility] Total proteinOrdered By: Andrés Franklin on 04-18-2025 Protein [Mass/Vol] 7.1 g/dL 5.9-8.4 [facility] White blood cell (WBC) count Ordered By: Ara Franklin on 04-18-2025 WBC (Bld) [#/Vol] 9.1 10*3/uL 4.4-11.0 [facility] Absolute lymphocyte countOrd ered By: Ara Franklin on 03-29-2025 Lymphocytes Auto (Unsp spec) [#/Vol] 1.00 10*3/uL 0.83-4.51 [facility] Absolute neutrophil countOrd ered By: Ara Franklin on 03-29-2025 Neutrophils (Bld) [#/Vol] 10.2 10*3/uL High 2.0-7.7 [facility] Anion gap in Serum or Plasma Ordered By: Ara Franklin on 03-29-2025 Anion gap [Moles/Vol] 13 mmol/L 5-15 [facility] Automated lymphocyte count a s percentage of total leukocytesOrdered By: Ara Franklin on 03-29-2025 Lymphocytes/100 WBC Auto (Unsp spec) 8.6 % Low 19-41 [facility] BUN/creatinine ratioOrdered By: Ara Franklin on 03-29-2025 Urea nitrogen/Creatinine [Mass ratio] 21.9 mg/mg High 10-20 [facility] Basophil percentageOrdered B y: Ara Franklin on 03-29-2025 Basophils/100 WBC (Bld) 0.2 % 0-1 [facility] Bilirubin, totalOrdered By: Ara Franklin on 03-29-2025 Bilirubin [Mass/Vol] 0.19 mg/dL 0.00-1.30 [facility] CBC W/Diff, Automatedon 03-10 Absolute Lymph 1.00 X10 3/uL Normal 0.83-4.51 [facility] Comment on above: Performed By: #### L 100.0100, L501.5200, L500.4050 #### [facility] [address] [place], [address] Absolute Neut 10.2 X10 3/uL High 2.0-7.7 [facility] Comment on above: Performed By: #### L 100.0100, L501.5200, L500.4050 #### [facility] [address] [place], [address] Basophils/100 WBC (Bld) 0.2 % Normal 0-1 [facility] Comment on above: Performed By: #### L 100.0100, L501.5200, L500.4050 #### [facility] [address] [place], [address] Eosinophils/100 WBC (Bld) 0.0 % Normal 0-5 [facility] Comment on above: Performed By: #### L 100.0100, L501.5200, L500.4050 #### [facility] [address] [place], [address] Erythrocyte distribution width (RBC) [Ratio] 14.8 % High 11.6-14.6 [facility] Comment on above: Performed By: #### L 100.0100, L501.5200, L500.4050 #### [facility] [address] [place], [address] Hematocrit (Bld) [Volume fraction] 35.5 % Low 37-47 [facility] Comment on above: Performed By: #### L 100.0100, L501.5200, L500.4050 #### [facility] [address] [place], [address] Hemoglobin (Bld) [Mass/Vol] 12.1 g/dL Normal 12.0-15.0 [facility] Comment on above: Performed By: #### L 100.0100, L501.5200, L500.4050 #### [facility] [address] [place], [address] IG% 0.800 Normal 0.0-0.9 [facility] Comment on above: Result Comment: IG% - Immature Granulocytes (promyelocytes, myelocytes and metamyelocytes) > 1% indicates that a LEFT SHIFT is Present. Performed By: #### L 100.0100, L501.5200, L500.4050 #### [facility] [address] [place], [address] Lymphocytes/100 WBC (Bld) 8.6 % Low 19-41 [facility] Comment on above: Performed By: #### L 100.0100, L501.5200, L500.4050 #### [facility] [address] [place], [address] MCH (RBC) [Entitic mass] 30.3 pg Normal 27.0-32.0 [facility] Comment on above: Performed By: #### L 100.0100, L501.5200, L500.4050 #### [facility] [address] [place], [address] MCHC (RBC) [Mass/Vol] 34.1 g/dL Normal 32-36 [facility] Comment on above: Performed By: #### L 100.0100, L501.5200, L500.4050 #### [facility] [address] [place], [address] MCV (RBC) [Entitic vol] 89.0 fL Normal 81-99 [facility] Comment on above: Performed By: #### L 100.0100, L501.5200, L500.4050 #### [facility] [address] [place], [address] Monocytes/100 WBC (Bld) 2.6 % Normal 0-10 [facility] Comment on above: Performed By: #### L 100.0100, L501.5200, L500.4050 #### [facility] [address] [place], [address] Neutrophils/100 WBC (Bld) 87.8 % High 47-70 [facility] Comment on above: Performed By: #### L 100.0100, L501.5200, L500.4050 #### [facility] [address] [place], [address] Nucleated RBC (Bld) [#/Vol] 0 10*3/uL Normal 0-5 [facility] Comment on above: Performed By: #### L 100.0100, L501.5200, L500.4050 #### [facility] [address] [place], [address] Platelet mean volume (Bld) [Entitic vol] 9.1 fL Normal 6.2-12.0 [facility] Comment on above: Performed By: #### L 100.0100, L501.5200, L500.4050 #### [facility] [address] [place], [address] Platelets (Bld) [#/Vol] 280 10*3/uL Normal 150-450 [facility] Comment on above: Performed By: #### L 100.0100, L501.5200, L500.4050 #### [facility] [address] [place], [address] RBC (Bld) [#/Vol] 3.99 10*6/uL Low 4.2-5.4 [facility] Comment on above: Performed By: #### L 100.0100, L501.5200, L500.4050 #### [facility] [address] [place], [address] RDW SD 46.7 fl High 35.1-43.9 [facility] Comment on above: Performed By: #### L 100.0100, L501.5200, L500.4050 #### [facility] [address] [place], [address] WBC (Bld) [#/Vol] 11.6 10*3/uL High 4.4-11.0 [facility] Comment on above: Performed By: #### L 100.0100, L501.5200, L500.4050 #### [facility] [address] [place], [address] Carbon dioxide, total [Moles /volume] in Central venous bloodOrdered By: Ara Franklin on 03-29-2025 CO2 [Moles/Vol] 20.3 mmol/L Low 21.0-32.0 [facility] Chloride assayOrdered By: Huong Franklin on 03-29-2025 Chloride [Moles/Vol] 103 mmol/L 98-108 [facility] Comprehensive Metabolic Prof ilon 03-29-2025 Albumin [Mass/Vol] 4.0 g/dL Normal 3.5-5.0 [facility] Comment on above: Performed By: #### L 100.0100, L501.5200, L500.4050 #### [facility] [address] [place], [address] Albumin/Globulin [Mass ratio] 1.7 {ratio} Normal 0.9-2.4 [facility] Comment on above: Performed By: #### L 100.0100, L501.5200, L500.4050 #### [facility] [address] [place], [address] ALK PHOS 62 U/L Normal 35-104 [facility] Comment on above: Performed By: #### L 100.0100, L501.5200, L500.4050 #### [facility] [address] [place], [address] ALT [Catalytic activity/Vol] 53 U/L High <=34 [facility] Comment on above: Performed By: #### L 100.0100, L501.5200, L500.4050 #### [facility] [address] [place], [address] AST [Catalytic activity/Vol] 19 U/L Normal <=31 [facility] Comment on above: Performed By: #### L 100.0100, L501.5200, L500.4050 #### [facility] [address] [place], [address] Bilirubin [Mass/Vol] 0.19 mg/dL Normal 0.00-1.30 [facility] Comment on above: Performed By: #### L 100.0100, L501.5200, L500.4050 #### [facility] [address] [place], [address] BUN/CRE 21.9 RATIO High 10-20 [facility] Comment on above: Performed By: #### L 100.0100, L501.5200, L500.4050 #### [facility] [address] [place], [address] Calcium [Mass/Vol] 9.1 mg/dL Normal 7.6-11.0 [facility] Comment on above: Performed By: #### L 100.0100, L501.5200, L500.4050 #### [facility] [address] [place], [address] Chloride [Moles/Vol] 103 mmol/L Normal 98-108 [facility] Comment on above: Performed By: #### L 100.0100, L501.5200, L500.4050 #### [facility] [address] [place], [address] CO2 [Moles/Vol] 20.3 mmol/L Low 21.0-32.0 [facility] Comment on above: Performed By: #### L 100.0100, L501.5200, L500.4050 #### [facility] [address] [place], [address] Creatinine [Mass/Vol] 0.59 mg/dL Low 0.70-1.20 [facility] Comment on above: Performed By: #### L 100.0100, L501.5200, L500.4050 #### [facility] [address] [place], [address] ECRCL 127.92 ml/min Normal 50-250 [facility] Comment on above: Performed By: #### L 100.0100, L501.5200, L500.4050 #### [facility] [address] [place], [address] GAP 13 Normal 5-15 [facility] Comment on above: Performed By: #### L 100.0100, L501.5200, L500.4050 #### [facility] [address] [place], [address] GFR/1.73 sq M.predicted among non-blacks MDRD (S/P/Bld) [Vol rate/Area] 126 mL/min/{1.73_m2} Normal >60 [facility] Comment on above: Result Comment: mL/m in/1.73m2 CKD-EPI Creatinine Equation (2020) Performed By: #### L 100.0100, L501.5200, L500.4050 #### [facility] [address] [place], [address] Globulin (S) [Mass/Vol] 2.4 g/dL Normal 2.2-4.2 [facility] Comment on above: Performed By: #### L 100.0100, L501.5200, L500.4050 #### [facility] [address] [place], [address] Glucose [Mass/Vol] 211 mg/dL High 70-99 [facility] Comment on above: Performed By: #### L 100.0100, L501.5200, L500.4050 #### [facility] [address] [place], [address] Potassium [Moles/Vol] 3.7 mmol/L Normal 3.3-5.1 [facility] Comment on above: Result Comment: Hemo lysis present, Results??could be affected. ?? Performed By: #### L 100.0100, L501.5200, L500.4050 #### [facility] [address] [place], [address] Sodium [Moles/Vol] 137 mmol/L Normal 133-145 [facility] Comment on above: Performed By: #### L 100.0100, L501.5200, L500.4050 #### [facility] [address] [place], [address] T PROT 6.4 g/dL Normal 5.9-8.4 [facility] Comment on above: Performed By: #### L 100.0100, L501.5200, L500.4050 #### [facility] [address] [place], [address] Urea nitrogen [Mass/Vol] 13 mg/dL Normal 4-19 [facility] Comment on above: Performed By: #### L 100.0100, L501.5200, L500.4050 #### [facility] [address] [place], [address] Eosinophil percentageOrdered By: Ara Franklin on 03-29-2025 Eosinophils/100 WBC (Bld) 0.0 % 0-5 [facility] Erythrocyte distribution wid th ratioOrdered By: Ara Franklin on 03-29-2025 Erythrocyte distribution width (RBC) [Ratio] 14.8 % High 11.6-14.6 [facility] Erythrocyte distribution wid th standard deviationOrdered By: Ara Franklin on 03-29-2025 Erythrocyte distribution width (RBC) [Ratio] 46.7 fl High 35.1-43.9 [facility] Glomerular filtration rate ( GFR) estimation/1.73 sq m using serum, plasma, or whole bOrdered By: Ara Franklin on 03-29-2025 GFR/1.73 sq M.predicted among non-blacks MDRD (S/P/Bld) [Vol rate/Area] 126 mL/min/{1.73_m2} >60 [facility] Comment on above: mL/min/1.73m2 CKD-EP I Creatinine Equation (2020) Hematocrit Auto (Bld) [Volum e fraction]Ordered By: Ara Franklin on 03-29-2025 Hematocrit (Bld) [Volume fraction] 35.5 % Low 37-47 [facility] Hemoglobin measurementOrdere d By: Ara Franklin on 03-29-2025 Hemoglobin (Bld) [Mass/Vol] 12.1 g/dL 12.0-15.0 [facility] Immature granulocytes/100 WB C Auto (Bld)Ordered By: Ara Franklin on 03-29-2025 Immature granulocytes/100 WBC (Bld) 0.800 % 0.0-0.9 [facility] Comment on above: IG% - Immature Granu locytes (promyelocytes, myelocytes and metamyelocytes) > 1% indicates that a LEFT SHIFT is Present. Laboratory - Chemistry and C hemistry - challengeOrdered By: Ara Franklin on 03-29-2025 AST [Catalytic activity/Vol] 19 U/L <32 [facility] MCV (mean corpuscular volume ) determinationOrdered By: Ara Franklin on 03-29-2025 MCV (RBC) [Entitic vol] 89.0 fL 81-99 [facility] Magnesiumon 03-29-2025 Magnesium [Mass/Vol] 1.8 mg/dL Normal 1.5-2.2 [facility] Comment on above: Performed By: #### L 100.0100, L501.5200, L500.4050 #### [facility] [address] [place], [address] Magnesium measurement (mass/ volume)Ordered By: Ara Franklin on 03-29-2025 Magnesium (Unsp spec) [Mass/Vol] 1.8 mg/dL 1.5-2.2 [facility] Mean corpuscular hemoglobin (MCH) determinationOrdered By: Ara Franklin on 03-29-2025 MCH (RBC) [Entitic mass] 30.3 pg 27.0-32.0 [facility] Mean corpuscular hemoglobin concentration (MCHC) determinationOrdered By: Ara Franklin on 03-29-2025 MCHC (RBC) [Mass/Vol] 34.1 g/dL 32-36 [facility] Mean platelet volume determi nationOrdered By: Ara Franklin on 03-29-2025 Platelet mean volume (Bld) [Entitic vol] 9.1 fL 6.2-12.0 [facility] Monocyte percentageOrdered B y: Ara Franklin on 03-29-2025 Monocytes/100 WBC (Bld) 2.6 % 0-10 [facility] Neutrophil percentageOrdered By: [facility] on 03-29-2025 Neutrophils/100 WBC (Bld) 87.8 % High 47-70 [facility] Nucleated red blood cell per centageOrdered By: Ara Franklin on 03-29-2025 Nucleated RBC/100 WBC (Bld) [Ratio] 0 % 0-5 [facility] Oncology Visit Reporton 03-10 Oncology Visit Report [facility] [place] [facility] [address] 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 January 25, [...] FINAL ASSESSMENT BI-RADS 6: KNOWN BIOPSY-PROVEN MALIGNANCY. February 14, 2025 bone scan: IMPRESSION: No scintigraphic evidence of osseous metastatic disease. February 21, 2025 chest abdomen and pelvis CT: IMPRESSION: Small umbilical hernia containing fat. Follicles are seen in both ovaries more prominent on the left side. Treatment summary and response: [facility] March 07, 2025 [facility] Medical History Encounter for education Wears glasses Non-smoker Shortness of breath on exertion History of echocardiogram Anemia Axillary lymphadenopathy Surgical History History of wisdom tooth extraction delivery delivered Family History Other No pertinent [...] documented, as per HPI, breast mass and other Details: Breast lump feels softer and inverted nipple is more flat ; Denies cough or dyspnea Gastrointestinal Gastrointestinal: Reports systems reviewed and no addt'l complaints, except as documented, diarrhea and other Details: Has had diarrhea on and off, using Imodium with some relief. Nausea followed chemotherapy by 2 to 3 days lasted a few days and eventually resolved ; Denies hematochezia or melena Genitourinary Genitourinary: Reports systems reviewed and no addt'l complaints, except as documented; Denies dysuria or hematuria Musculoskeletal Musculoskeletal: Reports systems reviewed and no addt'l complaints, except as documented and other Details: Had aches and pains a few days following her Neulasta injection, lasted about 4 days then resolved. Managed with Claritin and Tylenol ; Denies back pain Integumentary Integumentary: Reports systems reviewed and no addt'l complaints, except as documented and as per HPI Neurologic Neurologic: Reports systems reviewed and no addt'l complaints, except as documented, headache(s) and other Details: Chronic occasional headaches no change ; Denies focal weakness or paresthesias Psychiatric Psychiatric: Reports systems reviewed and no addt'l complaints, (more content not included)... Normal [facility] Phosphoruson 03-29-2025 Phosphate [Mass/Vol] 3.0 mg/dL Normal 2.7-4.5 [facility] Comment on above: Performed By: #### L 501.6510 #### [facility] [address] [place], [address] Platelet countOrdered By: Huong Franklin on 03-29-2025 Platelets (Bld) [#/Vol] 280 10*3/uL 150-450 [facility] Potassium measurement (mass/ volume)Ordered By: Ara Franklin on 03-29-2025 Potassium (Unsp spec) [Mass/Vol] 3.7 mmol/L 3.3-5.1 [facility] Comment on above: Hemolysis present, R esults could be affected. RBC Auto (Bld) [#/Vol]Ordere d By: Ara Franklin on 03-29-2025 RBC (Bld) [#/Vol] 3.99 10*6/uL Low 4.2-5.4 [facility] Serum creatinine measurement (mass/volume)Ordered By: Ara Franklin on 03-29-2025 Creatinine [Mass/Vol] 0.59 mg/dL Low 0.70-1.20 [facility] Serum globulin measurementOr dered By: Ara Franklin on 03-29-2025 Globulin (S) [Mass/Vol] 2.4 g/dL 2.2-4.2 [facility] Serum glucose measurement (m ass/volume)Ordered By: Ara Franklin on 03-29-2025 Glucose [Mass/Vol] 211 mg/dL High 70-99 [facility] Serum or plasma alanine mcdonald otransferase (ALT) measurementOrdered By: Ara Franklin on 03-29-2025 ALT [Catalytic activity/Vol] 53 U/L High <35 [facility] Serum or plasma albumin ernestine urement (mass/volume)Ordered By: Ara Franklin on 03-29-2025 Albumin [Mass/Vol] 4.0 g/dL 3.5-5.0 [facility] Serum or plasma albumin/glob ulin mass ratioOrdered By: Ara Franklin on 03-29-2025 Albumin/Globulin [Mass ratio] 1.7 {ratio} 0.9-2.4 [facility] Serum or plasma alkaline chuckie sphatase measurementOrdered By: Ara Franklin on 03-29-2025 ALP [Catalytic activity/Vol] 62 U/L 35-104 [facility] Serum or plasma calcium ernestine urement (mass/volume)Ordered By: Ara Franklin on 03-29-2025 Calcium [Mass/Vol] 9.1 mg/dL 7.6-11.0 [facility] Serum or plasma urea nitroge n measurement (mass/volume)Ordered By: Ara Franklin on 03-29-2025 Urea nitrogen [Mass/Vol] 13 mg/dL 4-19 [facility] Sodium levelOrdered By: Marlys krysta Rigoberto on 03-29-2025 Sodium [Moles/Vol] 137 mmol/L 133-145 [facility] Total proteinOrdered By: Andrés Franklin on 03-29-2025 Protein [Mass/Vol] 6.4 g/dL 5.9-8.4 [facility] White blood cell (WBC) count Ordered By: Ara Franklin on 03-29-2025 WBC (Bld) [#/Vol] 11.6 10*3/uL High 4.4-11.0 [facility] Urine Cultureon 03-22-2025 [facility] Mixed Gram Pos Gram Neg Org [place] Count 25,000-50,000 [facility] Mixed contaminants. Submit a new specimen if indicated. Normal [facility] Comment on above: Performed By: #### M 100.2200, L400.0001 ####[facility] [address] [place], [address] Absolute lymphocyte countOrd ered By: Ara Franklin on 03-20-2025 Lymphocytes Auto (Unsp spec) [#/Vol] 1.73 10*3/uL 0.83-4.51 [facility] Absolute neutrophil countOrd ered By: Ara Franklin on 03-20-2025 Neutrophils (Bld) [#/Vol] 4.5 10*3/uL 2.0-7.7 [facility] Anion gap in Serum or Plasma Ordered By: Ara Franklin on 03-20-2025 Anion gap [Moles/Vol] 11 mmol/L 5-15 [facility] Automated lymphocyte count a s percentage of total leukocytesOrdered By: Ara Franklin on 03-20-2025 Lymphocytes/100 WBC Auto (Unsp spec) 23.7 % 19-41 [facility] BUN/creatinine ratioOrdered By: Ara Franklin on 03-20-2025 Urea nitrogen/Creatinine [Mass ratio] 26.0 mg/mg High 10-20 [facility] Basophil percentageOrdered B y: Ara Franklin on 03-20-2025 Basophils/100 WBC (Bld) 1.2 % High 0-1 [facility] Bilirubin Test strip Ql (U)O rdered By: Ara Franklin on 03-20-2025 Bilirubin Ql (U) Negative Negative [facility] Bilirubin, totalOrdered By: Ara Franklin on 03-20-2025 Bilirubin [Mass/Vol] mg/dL 0.00-1.30 [facility] Blood manual differential co mment interpretation (narrative result)Ordered By: Ara Franklin on 03-20-2025 Manual differential comment Rohit (Bld) [Interp] SCANNED [facility] CBC W/Diff, Automatedon 03-09 PLT EST SLT DEC Normal ADEQ [facility] Comment on above: Performed By: #### L 501.2300 #### [facility] [address] [place], [place], [id number] SMEAR COMMENT SCANNED Normal [facility] Comment on above: Performed By: #### L 501.2300 #### [facility] [address] [place], [address] Carbon dioxide, total [Moles /volume] in Central venous bloodOrdered By: Ara Franklin on 03-20-2025 CO2 [Moles/Vol] 22.3 mmol/L Normal 21.0-32.0 [facility] Comment on above: Performed By: #### L 501.2300 #### [facility] [address] [place], [address] Chloride assayOrdered By: Huong Franklin on 03-20-2025 Chloride [Moles/Vol] 105 mmol/L Normal 98-108 [facility] Comment on above: Performed By: #### L 501.2300 #### [facility] [address] [place], [address] Comprehensive Metabolic Prof ilon 03-20-2025 ALK PHOS 77 U/L Normal 35-104 [facility] Comment on above: Performed By: #### L 501.2300 #### [facility] [address] [place], [address] BUN/CRE 26.0 RATIO High 10-20 [facility] Comment on above: Performed By: #### L 501.2300 #### [facility] [address] [place], [address] ECRCL 129.66 ml/min Normal 50-250 [facility] Comment on above: Performed By: #### L 501.2300 #### [facility] [address] [place], [address] GAP 11 Normal 5-15 [facility] Comment on above: Performed By: #### L 501.2300 #### [facility] [address] [place], [address] Potassium [Moles/Vol] 3.7 mmol/L Normal 3.3-5.1 [facility] Comment on above: Performed By: #### L 501.2300 #### [facility] [address] [place], [address] T BILI < 0.15 Normal 0.00-1.30 [facility] Comment on above: Performed By: #### L 501.2300 #### [facility] [address] [place], [address] T PROT 6.0 g/dL Normal 5.9-8.4 [facility] Comment on above: Performed By: #### L 501.2300 #### [facility] [address] [place], [address] Comprehensive Metabolic Prof ilOrdered By: rAa Franklin on 03-20-2025 AST [Catalytic activity/Vol] 29 U/L Normal <=31 [facility] Comment on above: Performed By: #### L 501.2300 #### [facility] [address] [place], [address] Eosinophil percentageOrdered By: Ara Franklin on 03-20-2025 Eosinophils/100 WBC (Bld) 0.1 % 0-5 [facility] Erythrocyte distribution wid th ratioOrdered By: [facility] Rigoberto on 03-20-2025 Erythrocyte distribution width (RBC) [Ratio] 13.7 % 11.6-14.6 [facility] Erythrocyte distribution wid th standard deviationOrdered By: [facility] Rigoberto on 03-20-2025 Erythrocyte distribution width (RBC) [Ratio] 41.2 fl 35.1-43.9 [facility] Glomerular filtration rate ( GFR) estimation/1.73 sq m using serum, plasma, or whole bOrdered By: Ara Franklin on 03-20-2025 GFR/1.73 sq M.predicted among non-blacks MDRD (S/P/Bld) [Vol rate/Area] 126 mL/min/{1.73_m2} Normal >60 [facility] Comment on above: mL/min/1.73m2 CKD-EP I Creatinine Equation (2020) Result Comment: mL/m in/1.73m2 CKD-EPI Creatinine Equation (2020) Performed By: #### L 501.1973 #### [facility] [address] [place] [place], [place], [id number] Hematocrit Auto (Bld) [Volum e fraction]Ordered By: Ara Franklin on 03-20-2025 Hematocrit (Bld) [Volume fraction] 34.1 % Low 37-47 [facility] Hemoglobin measurementOrdere d By: Ara Franklin on 03-20-2025 Hemoglobin (Bld) [Mass/Vol] 11.4 g/dL Low 12.0-15.0 [facility] Immature granulocytes/100 WB C Auto (Bld)Ordered By: Ara Franklin on 03-20-2025 Immature granulocytes/100 WBC (Bld) 4.700 % High 0.0-0.9 [facility] Comment on above: IG% - Immature Granu locytes (promyelocytes, myelocytes and metamyelocytes) > 1% indicates that a LEFT SHIFT is Present. Ketones Test strip Ql (U)Ord ered By: Ara Franklin on 03-20-2025 Ketones Ql (U) Negative Negative [facility] MCV (mean corpuscular volume ) determinationOrdered By: Ara Franklin on 03-20-2025 MCV (RBC) [Entitic vol] 88.3 fL 81-99 [facility] Magnesiumon 03-20-2025 Magnesium [Mass/Vol] 1.8 mg/dL Normal 1.5-2.2 [facility] Comment on above: Performed By: #### L 501.2300 #### [facility] [address] [place] [address], [address] Magnesium measurement (mass/ volume)Ordered By: Ara Franklin on 03-20-2025 Magnesium (Unsp spec) [Mass/Vol] 1.8 mg/dL 1.5-2.2 [facility] Mean corpuscular hemoglobin (MCH) determinationOrdered By: Ara Franklin on 03-20-2025 MCH (RBC) [Entitic mass] 29.5 pg 27.0-32.0 [facility] Mean corpuscular hemoglobin concentration (MCHC) determinationOrdered By: Ara Franklin on 03-20-2025 MCHC (RBC) [Mass/Vol] 33.4 g/dL 32-36 [facility] Mean platelet volume determi nationOrdered By: Ara Franklin on 03-20-2025 Platelet mean volume (Bld) [Entitic vol] 10.0 fL 6.2-12.0 [facility] Microscopic analysis of urin e for red blood cells (RBC)Ordered By: Ara Franklin on 03-20-2025 Microscopic analysis of urine for red blood cells (RBC) 0-5 SEEN /hpf 0-5 [facility] Monocyte percentageOrdered B y: Ara Franklin on 03-20-2025 Monocytes/100 WBC (Bld) 8.2 % 0-10 [facility] Mucus LM Ql (Urine sed)Order ed By: Ara Franklin on 03-20-2025 Mucus Ql (Urine sed) 0 SEEN /hpf [facility] Neutrophil percentageOrdered By: Ara Franklin on 03-20-2025 Neutrophils/100 WBC (Bld) 62.1 % 47-70 [facility] Nitrite Test strip Ql (U)Ord ered By: Ara Franklin on 03-20-2025 Nitrite Ql (U) Negative Negative [facility] Nucleated red blood cell per centageOrdered By: Ara Franklin on 03-20-2025 Nucleated RBC/100 WBC (Bld) [Ratio] 0 % 0-5 [facility] Oncology Visit Reporton 03-[address] [facility] [place] [facility] [address] [place] [id number] OFFICE VISIT Date of Service: 03/20/25 1542 MR#: [id number] Acct: [id number] Name: SHAUNA RAINEY Rep #: [id number] : 1995 From: Ara Franklin MD Age/Sex: 29/F Location: [facility] Status: Signed HPI Subjective Date of Service 03/20/25 Chief Complaint breast cancer History of Present [...] 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 January 25, [...] FINAL ASSESSMENT BI-RADS 6: KNOWN BIOPSY-PROVEN MALIGNANCY. February 14, 2025 bone scan: IMPRESSION: No scintigraphic evidence of osseous metastatic disease. February 21, 2025 chest abdomen and pelvis CT: IMPRESSION: Small umbilical hernia containing fat. Follicles are seen in both ovaries more prominent on the left side. Treatment summary and response: [facility] March 07, 2025 [facility] Medical History Encounter for education Wears glasses Non-smoker Shortness of breath on exertion History of echocardiogram Anemia Axillary lymphadenopathy Surgical History History of wisdom tooth extraction delivery delivered Family History Other No pertinent [...] complaints, except as documented and as per HPI; Denies cough or dyspnea Gastrointestinal Gastrointestinal: Reports systems reviewed and no addt'l complaints, except as documented, diarrhea and other Details: Has had diarrhea on and off, using Imodium with some relief. Nausea followed chemotherapy by 2 to 3 days lasted a few days and eventually resolved ; Denies hematochezia or melena Genitourinary Genitourinary: Reports systems reviewed and no addt'l complaints, except as documented, dysuria and other Details: Has had dysuria a week or so earlier, was seen by her PCP, urinalysis was done who did not think she had a UTI. ; Denies hematuria Musculoskeletal Musculoskeletal: Reports systems reviewed and no addt'l complaints, except as documented and other Details: Had aches and pains a few days following her Neulasta injection, lasted about 4 days then resolved. Managed with Claritin and Tylenol ; Denies back pain Integumentary Integumentary: Reports systems reviewed and no addt'l complaints, except as documented and as per HPI Neurologic Neurologic: Reports systems reviewed and no addt'l complaints, except as documented, headache(s) and other Details: Chronic occasional headaches no change ; Denies focal weakness or paresthesias Psychiatric Psychiatric: Reports (more content not included)... Normal [facility] Platelet countOrdered By: Huong Franklin on 03-20-2025 Platelets (Bld) [#/Vol] 144 10*3/uL Low 150-450 [facility] Platelet estimateOrdered By: Ara Franklin on 03-20-2025 Platelets LM Ql (Bld) SLT DEC ADEQ [facility] Potassium measurement (mass/ volume)Ordered By: Ara Franklin on 03-20-2025 Potassium (Unsp spec) [Mass/Vol] 3.7 mmol/L 3.3-5.1 [facility] Protein Test strip Ql (U)Ord ered By: Ara Franklin on 03-20-2025 Protein Ql (U) 30 mg/dl High Negative [facility] RBC Auto (Bld) [#/Vol]Ordere d By: Ara Franklin on 03-20-2025 RBC (Bld) [#/Vol] 3.86 10*6/uL Low 4.2-5.4 [facility] Serum creatinine measurement (mass/volume)Ordered By: Ara Franklin on 03-20-2025 Creatinine [Mass/Vol] 0.58 mg/dL Low 0.70-1.20 [facility] Comment on above: Performed By: #### L 501.2300 #### [facility] [address] [place], [address] Serum globulin measurementOr dered By: Ara Franklin on 03-20-2025 Globulin (S) [Mass/Vol] 2.4 g/dL Normal 2.2-4.2 [facility] Comment on above: Performed By: #### L 501.2300 #### [facility] [address] [place], [address] Serum glucose measurement (m ass/volume)Ordered By: Ara Franklin on 03-20-2025 Glucose [Mass/Vol] 88 mg/dL Normal 70-99 [facility] Comment on above: Performed By: #### L 501.2300 #### [facility] [address] [place], [address] Serum or plasma alanine mcdonald otransferase (ALT) measurementOrdered By: Ara Franklin on 03-20-2025 ALT [Catalytic activity/Vol] 83 U/L High <=34 [facility] Comment on above: Performed By: #### L 501.2300 #### [facility] [address] [place], [address] Serum or plasma albumin ernestine urement (mass/volume)Ordered By: Ara Franklin on 03-20-2025 Albumin [Mass/Vol] 3.6 g/dL Normal 3.5-5.0 [facility] Comment on above: Performed By: #### L 501.2300 #### [facility] [address] [place], [address] Serum or plasma albumin/glob ulin mass ratioOrdered By: Ara Franklin on 03-20-2025 Albumin/Globulin [Mass ratio] 1.5 {ratio} Normal 0.9-2.4 [facility] Comment on above: Performed By: #### L 501.2300 #### [facility] [address] [place], [place], [address] Serum or plasma alkaline chuckie sphatase measurementOrdered By: Ara Rigoberto on 03-20-2025 ALP [Catalytic activity/Vol] 77 U/L 35-104 [facility] Serum or plasma calcium ernestine urement (mass/volume)Ordered By: Ara Leonardedison on 03-20-2025 Calcium [Mass/Vol] 8.5 mg/dL Normal 7.6-11.0 [facility] Comment on above: Performed By: #### L 501.2300 #### [facility] [address] [place], [place], [id number] Serum or plasma urea nitroge n measurement (mass/volume)Ordered By: Ara Leonardedison on 03-20-2025 Urea nitrogen [Mass/Vol] 15 mg/dL Normal 4-19 [facility] Comment on above: Performed By: #### L 501.2300 #### [facility] [address] [place], [address] Sodium levelOrdered By: Marlys Leonardedison on 03-20-2025 Sodium [Moles/Vol] 139 mmol/L Normal 133-145 [facility] Comment on above: Performed By: #### L 501.2300 #### [facility] [address] [place], [address] Squamous epithelial cells de tection in urine sediment by light microscopyOrdered By: Ara Rigoberto on 03-20-2025 Epithelial cells.squamous LM Ql (Urine sed) 0-5 SEEN /hpf 5-10 [facility] Total proteinOrdered By: Andrés rhodes Rigoberto on 03-20-2025 Protein [Mass/Vol] 6.0 g/dL 5.9-8.4 [facility] Urinalysis, Completeon 03-20 EPI,SQUAMOUS 0-5 SEEN Normal 5-10 [facility] Comment on above: Order Comment: COLLE CTOR TO SPECIFY Performed By: #### M 100.2200, L400.0001 ####[facility] [address] [place], [address] RBC 0-5 SEEN Normal 0-5 [facility] Comment on above: Order Comment: JESU CTOR TO SPECIFY Performed By: #### M 100.2200, L400.0001 ####[facility] [address] [place], [address] WBC 0-5 SEEN Normal 0-5 [facility] Comment on above: Order Comment: JESU CTOR TO SPECIFY Performed By: #### M 100.2200, L400.0001 ####[facility] [address] [place], [address] BACTERIA 0 SEEN Normal None Seen [facility] Comment on above: Order Comment: JSEU CTOR TO SPECIFY Performed By: #### M 100.2200, L400.0001 ####[facility] [address] [place], [address] Mucus Ql (Urine sed) 0 SEEN Normal [facility] Comment on above: Order Comment: JESU CTOR TO SPECIFY Performed By: #### M 100.2200, L400.0001 ####[facility] [address] [place], [address] Urine clarityOrdered By: Andrés Franklin on 03-20-2025 Clarity (U) Clear Clear [facility] Urine color determinationOrd ered By: Ara Franklin on 03-20-2025 Color (U) Yellow Yellow [facility] Urine cultureOrdered By: Andrés Franklin on 03-20-2025 Bacteria identified Cx Nom (U) Mixed Gram Pos & Gram Neg Org Abnormal [facility] Bacteria identified Cx Nom (U) Mixed Gram Pos & Gram Neg Org Abnormal [facility] Urine glucose detectionOrder ed By: Ara Franklin on 03-20-2025 Glucose Ql (U) Normal mg/dl Normal [facility] Urine leukocyte esterase det ection by dipstickOrdered By: Ara Franklin on 03-20-2025 Leukocyte esterase Test strip Ql (U) Negative Negative [facility] Urine pHOrdered By: Ara Franklin on 03-20-2025 pH (U) 6.0 [pH] 5.0 - 8.0 [facility] Urine sediment bacteria coun t by microscopy (number/high power field)Ordered By: [facility] Franklin on 03-20-2025 Bacteria LM.HPF (Urine sed) [#/Area] 0 /[HPF] None Seen [facility] Urine specific gravity measu rementOrdered By: [facility] on 03-20-2025 Specific gravity (U) [Rel density] 1.020 1.002-1.030 [facility] Urine urobilinogen measureme ntOrdered By: [facility] Rigoberto on 03-20-2025 Urobilinogen Ql (U) Normal mg/dl Normal [facility] White blood cell (WBC) count Ordered By: [facility] on 03-20-2025 WBC (Bld) [#/Vol] 7.3 10*3/uL 4.4-11.0 [facility] White blood cell countOrdere d By: [facility] Franklin on 03-20-2025 White blood cell count 0-5 SEEN /hpf 0-5 [facility] CULTURE, URINE, ROUTINEon CULTURE, URINE, ROUTINE SEE NOTE Normal [facility] Comment on above: Result Comment: CULTURE, URINE, ROUTINE Micro Number: [id number] Test Status: Final Specimen Source: Not given Specimen Quality: Adequate Result: Mixed genital jennie isolated. These superficial bacteria are not indicative of a urinary tract infection. No further organism identification is warranted on this specimen. If clinically indicated, recollect clean-catch, mid-stream urine and transfer immediately to Urine Culture Transport Tube. Performed By: #### 3 95 #### [facility] [address], [address] [place] [address] Cracker Dough Mixer: Dominic Jaimes MD POCT UA Automated manually r esultedon 03-13-2025 Appearance (U) Clear Clear [facility] Work Phone: Glucose Test strip (U) [Mass/Vol] 100 (1+) Abnormal NEGATIVE mg/dl [facility] Work Phone: Hemoglobin Ql (U) TRACE-Intact Abnormal NEGATIVE [facility] Work Phone: [phone] Interpretation and review of laboratory results Abnormal [facility] Work Phone: Leukocyte esterase Test strip Ql (U) Negative NEGATIVE [facility] Work Phone: Nitrite Ql (U) Negative NEGATIVE [facility] Work Phone: pH (U) 5.5 [pH] No Reference Range Established [facility] Work Phone: POC Bilirubin, Urine Negative NEGATIVE [facility] Work Phone: POC Color, Urine Yellow Straw, Yellow, Light-Yellow [facility] Work Phone: POC Ketones, Urine TRACE Abnormal NEGATIVE mg/dl [facility] Work Phone: POC Protein, Urine 100 (2+) Abnormal NEGATIVE mg/dl [facility] Work Phone: )[phone] POC Specific [place], Urine >=1.030 1.005 - 1.035 [facility] Work Phone: POC Urobilinogen, Urine 0.2 0.2, 1.0 EU/DL [facility] Work Phone: [phone] [facility] Work Phone: [phone] CBC W/Diff, Automatedon 07-3 0-2025 Absolute Lymph 0.62 X10 3/uL Low 0.83-4.51 [facility] Comment on above: Performed By: #### L 500.4050, L100.0100, L501.5200 ####[facility] [address] [place], [place], [id number] Absolute Neut 10.5 X10 3/uL High 2.0-7.7 [facility] Comment on above: Performed By: #### L 500.4050, L100.0100, L501.5200 ####[facility] [address] [place], [address] Basophils/100 WBC (Bld) 0.1 % Normal 0-1 [facility] Comment on above: Performed By: #### L 500.4050, L100.0100, L501.5200 ####[facility] [address] [place], [address] Eosinophils/100 WBC (Bld) 0.0 % Normal 0-5 [facility] Comment on above: Performed By: #### L 500.4050, L100.0100, L501.5200 ####[facility] [address] [place], [address] Erythrocyte distribution width (RBC) [Ratio] 12.7 % Normal 11.6-14.6 [facility] Comment on above: Performed By: #### L 500.4050, L100.0100, L501.5200 ####[facility] [address] [place], [address] Hematocrit (Bld) [Volume fraction] 39.7 % Normal 37-47 [facility] Comment on above: Performed By: #### L 500.4050, L100.0100, L501.5200 ####[facility] [address] [place], [address] Hemoglobin (Bld) [Mass/Vol] 13.5 g/dL Normal 12.0-15.0 [facility] Comment on above: Performed By: #### L 500.4050, L100.0100, L501.5200 ####[facility] [address] [place], [address] IG% 0.500 Normal 0.0-0.9 [facility] Comment on above: Result Comment: IG% - Immature Granulocytes (promyelocytes, myelocytes and metamyelocytes) > 1% indicates that a LEFT SHIFT is Present. Performed By: #### L 500.4050, L100.0100, L501.5200 ####[facility] [address] [place], [address] Lymphocytes/100 WBC (Bld) 5.4 % Low 19-41 [facility] Comment on above: Performed By: #### L 500.4050, L100.0100, L501.5200 ####[facility] [address] [place], [address] MCH (RBC) [Entitic mass] 29.7 pg Normal 27.0-32.0 [facility] Comment on above: Performed By: #### L 500.4050, L100.0100, L501.5200 ####[facility] [address] [place], [address] MCHC (RBC) [Mass/Vol] 34.0 g/dL Normal 32-36 [facility] Comment on above: Performed By: #### L 500.4050, L100.0100, L501.5200 ####[facility] [address] [place], [address] MCV (RBC) [Entitic vol] 87.3 fL Normal 81-99 [facility] Comment on above: Performed By: #### L 500.4050, L100.0100, L501.5200 ####[facility] [address] [place], [address] Monocytes/100 WBC (Bld) 2.0 % Normal 0-10 [facility] Comment on above: Performed By: #### L 500.4050, L100.0100, L501.5200 ####[facility] [address] [place], [address] Neutrophils/100 WBC (Bld) 92.0 % High 47-70 [facility] Comment on above: Performed By: #### L 500.4050, L100.0100, L501.5200 ####[facility] [address] [place], [address] Nucleated RBC (Bld) [#/Vol] 0 10*3/uL Normal 0-5 [facility] Comment on above: Performed By: #### L 500.4050, L100.0100, L501.5200 ####[facility] [address] [place], [address] Platelet mean volume (Bld) [Entitic vol] 9.4 fL Normal 6.2-12.0 [facility] Comment on above: Performed By: #### L 500.4050, L100.0100, L501.5200 ####[facility] [address] [place], [address] Platelets (Bld) [#/Vol] 248 10*3/uL Normal 150-450 [facility] Comment on above: Performed By: #### L 500.4050, L100.0100, L501.5200 ####[facility] [address] [place], [address] RBC (Bld) [#/Vol] 4.55 10*6/uL Normal 4.2-5.4 [facility] Comment on above: Performed By: #### L 500.4050, L100.0100, L501.5200 ####[facility] [address] [place], [address] RDW SD 40.2 fl Normal 35.1-43.9 [facility] Comment on above: Performed By: #### L 500.4050, L100.0100, L501.5200 ####[facility] [address] [place], [address] WBC (Bld) [#/Vol] 11.4 10*3/uL High 4.4-11.0 [facility] Comment on above: Performed By: #### L 500.4050, L100.0100, L501.5200 ####[facility] [address] [place], [address] Comprehensive Metabolic Prof coon 03-07-2025 Albumin [Mass/Vol] 4.2 g/dL Normal 3.5-5.0 [facility] Comment on above: Performed By: #### L 500.4050, L100.0100, L501.5200 ####[facility] [address] [place], [address] Albumin/Globulin [Mass ratio] 1.4 {ratio} Normal 0.9-2.4 [facility] Comment on above: Performed By: #### L 500.4050, L100.0100, L501.5200 ####[facility] [address] [place], [address] ALK PHOS 62 U/L Normal 35-104 [facility] Comment on above: Performed By: #### L 500.4050, L100.0100, L501.5200 ####[facility] [address] [place], [address] ALT [Catalytic activity/Vol] 23 U/L Normal <=34 [facility] Comment on above: Performed By: #### L 500.4050, L100.0100, L501.5200 ####[facility] [address] [place], [address] AST [Catalytic activity/Vol] 15 U/L Normal <=31 [facility] Comment on above: Performed By: #### L 500.4050, L100.0100, L501.5200 ####[facility] [address] [place], [address] Bilirubin [Mass/Vol] 0.26 mg/dL Normal 0.00-1.30 [facility] Comment on above: Performed By: #### L 500.4050, L100.0100, L501.5200 ####[facility] [address] [place], [address] BUN/CRE 29.6 RATIO High 10-20 [facility] Comment on above: Performed By: #### L 500.4050, L100.0100, L501.5200 ####[facility] [address] [place], [address] Calcium [Mass/Vol] 9.4 mg/dL Normal 7.6-11.0 [facility] Comment on above: Performed By: #### L 500.4050, L100.0100, L501.5200 ####[facility] [address] [place], [address] Chloride [Moles/Vol] 105 mmol/L Normal 98-108 [facility] Comment on above: Performed By: #### L 500.4050, L100.0100, L501.5200 ####[facility] [address] [place], [address] CO2 [Moles/Vol] 19.9 mmol/L Low 21.0-32.0 [facility] Comment on above: Performed By: #### L 500.4050, L100.0100, L501.5200 ####[facility] [address] [place], [address] Creatinine [Mass/Vol] 0.53 mg/dL Low 0.70-1.20 [facility] Comment on above: Performed By: #### L 500.4050, L100.0100, L501.5200 ####[facility] [address] [place], [address] ECRCL 140.71 ml/min Normal 50-250 [facility] Comment on above: Performed By: #### L 500.4050, L100.0100, L501.5200 ####[facility] [address] [place], [address] GAP 14 Normal 5-15 [facility] Comment on above: Performed By: #### L 500.4050, L100.0100, L501.5200 ####[facility] [address] [place], [address] GFR/1.73 sq M.predicted among non-blacks MDRD (S/P/Bld) [Vol rate/Area] 129 mL/min/{1.73_m2} Normal >60 [facility] Comment on above: Result Comment: mL/m in/1.73m2 CKD-EPI Creatinine Equation (2020) Performed By: #### L 500.4050, L100.0100, L501.5200 ####[facility] [address] [place], [address] Globulin (S) [Mass/Vol] 3.0 g/dL Normal 2.2-4.2 [facility] Comment on above: Performed By: #### L 500.4050, L100.0100, L501.5200 ####[facility] [address] [place], [address] Glucose [Mass/Vol] 160 mg/dL High 70-99 [facility] Comment on above: Performed By: #### L 500.4050, L100.0100, L501.5200 ####[facility] [address] [place], [address] Potassium [Moles/Vol] 3.9 mmol/L Normal 3.3-5.1 [facility] Comment on above: Performed By: #### L 500.4050, L100.0100, L501.5200 ####[facility] [address] [place], [address] Sodium [Moles/Vol] 138 mmol/L Normal 133-145 [facility] Comment on above: Performed By: #### L 500.4050, L100.0100, L501.5200 ####[facility] [address] [place], [address] T PROT 7.2 g/dL Normal 5.9-8.4 [facility] Comment on above: Performed By: #### L 500.4050, L100.0100, L501.5200 ####[facility] [address] [place], [address] Urea nitrogen [Mass/Vol] 16 mg/dL Normal 4-19 [facility] Comment on above: Performed By: #### L 500.4050, L100.0100, L501.5200 ####[facility] [address] [place], [address] Magnesiumon 03-07-2025 Magnesium [Mass/Vol] 2.0 mg/dL Normal 1.5-2.2 [facility] Comment on above: Performed By: #### L 500.4050, L100.0100, L501.5200 ####[facility] [address] [place], [address] ,Urineon 03-07-2025 Beta HCG ( test) Ql (U) Negative Normal [facility] Comment on above: Result Comment: Very dilute urine specimens, as indicated by a low specific gravity, may not contain human resources hr representative levels of hCG. If is still suspected, a first morning urine specimen should be collected 48 hours later and tested. Performed By: #### L 501.2300 #### [facility] [address] [place], [address] Urine testOrdered By: Sheila Eubanks on 03-07-2025 HCG ( test) Ql (U) Negative [facility] Comment on above: Very dilute urine sp ecimens, as indicated by a low specificgravity, may not contain human resources hr representative levels of hCG. If is still suspected, a first morning urinespecimen should be collected 48 hours later and tested. Oncology Visit Reporton 02-07 Oncology Visit Report [facility] [address] 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 January 25, [...] FINAL ASSESSMENT BI-RADS 6: KNOWN BIOPSY-PROVEN MALIGNANCY. 02/08/25 Echo Interpretation Summary: Normal LV size. Left ventricular systolic function is normal. The left ventricular ejection fraction is 60%. The global longitudinal strain is normal. The global longitudinal strain =-22.3% (normal). Interval History The patient is presenting to clinic accompanied by spouse for chemotherapy education to discuss TCHP. [facility] Medical History (Updated 02/28/25 @ 17:39 by Sheila Eubanks [employer] OPERATOR, [employer]PERATOR-C) Encounter for education Wears glasses Non-smoker Shortness of breath on exertion History of echocardiogram Anemia Axillary lymphadenopathy Surgical History History of wisdom tooth extraction delivery delivered Family History Other No pertinent family history Social History Smoking Status: Never smoker alcohol intake: never ROS ROS Narrative Negative except as documented in the interval HPI Intake Vital Signs 02/13/25 06:48 02/28/25 15:45 02/28/25 16:00 Height 5 ft 5 ft 5 ft Weight: 159 lb 4 oz BMI 31.1 BP 106/69 Blood Pressure Location Lt brachial Position Sitting Respiration 16 Pulse 73 Pulse Source Monitor Temp 98.4 F Temperature Source Temporal Artery Pulse Oximetry (%) 100 Oxygen Delivery Method room air Intake Is patient in pain?: No Allergies No Known Allergies Allergy (Verified 02/28/25 15:59) Medications ???Medication ???Instructions ???Recorded ???Confirmed ???Type acetaminophen 500 mg capsule 1,000 mg PO Q6H PRN pain 02/12/25 02/28/25 History dexamethasone 4 mg tablet 8 mg (2 x 4 mg) PO .COMPLEX #60 02/28/25 Rx tabs lidocaine-prilocaine 2.5 %-2.5 % 1 applic topical ONCE PRN Port 02/28/25 Rx topical cream access port access 30 days #30 grams ondansetron 8 mg disintegrating 8 mg PO Q8H PRN nausea and 5 02/28/25 Rx tablet vomiting #30 tabs prochlorperazine maleate 10 mg 10 mg PO Q6H PRN nausea and 02/28/25 Rx tablet vomiting #30 tabs Have you fallen in the past year?: No Central Venous Access Central Venous Access: Yes Port/PICC: Port Exam Physical Exam Narrative ECOG 0 Const alert, oriented x3, no apparent distress and average body habitus HEENT normocephalic Face and Sinus: normal facial exam Eyes General Eye: normal appearance of both eyes Chest Chest: vascular access Psych mental status grossly normal Attitude: calm and engaged Mood Affect: other tearful during conversation Coding Level of Care Code Off vis,est,level 5 Exam Problem Focused Diagnoses 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 Normal [facility] Surgery Visit Reporton 02-28 Surgery Visit Report [facility] [address] [place] [address] OFFICE VISIT Date of Service: 02/28/25 MR#: [id number] Acct: [id number] Name: SHAUNA RAINEY Rep #: [id number] : 1995 Provider: Dr. Tamiko aguero MD Age/Sex: 29/F Location: [facility] Status: Signed Intake Vital Signs 02/13/25 06:48 Height 5 ft Intake Visit Reasons: suture removal Chief Complaint: suture removal Is patient in pain?: No Allergies No Known Allergies Allergy (Verified 02/28/25 15:59) Medications ???Medication ???Instructions ???Recorded ???Confirmed ???Type acetaminophen 500 mg capsule 1,000 mg PO Q6H PRN pain 02/12/25 02/28/25 History dexamethasone 4 mg tablet 8 mg (2 x 4 mg) PO .COMPLEX #60 02/28/25 Rx tabs lidocaine-prilocaine 2.5 %-2.5 % 1 applic topical ONCE PRN Port 02/28/25 Rx topical cream access port access 30 days #30 grams ondansetron 8 mg disintegrating 8 mg PO Q8H PRN nausea and 5 02/28/25 Rx tablet vomiting #30 tabs prochlorperazine maleate 10 mg 10 mg PO Q6H PRN nausea and 02/28/25 Rx tablet vomiting #30 tabs Subjective Details: 29-year-old female presents status post right IJ port placement for suture removal. Patient has her chemo education today. Patient denies any issues with the port site. Objective Details: Right chest port site healing well clean dry and intact, permanent sutures removed in office. Coding Level of Care Code Global Post Op Diagnoses Encounter for fitting and adjustment of vascular catheter Z45.2 [facility] Medical History (Updated 03/02/25 @ 08:[address] Tamiko Mccarthy MD) Encounter for education Wears glasses Non-smoker Shortness of breath on exertion History of echocardiogram Anemia Axillary lymphadenopathy Surgical History History of wisdom tooth extraction delivery delivered Family History Other No pertinent family history Social History Smoking Status: Never smoker alcohol intake: never Assessment and Plan (No Qualifiers) Assessment and Plan (1) Encounter for fitting and adjustment of vascular catheter: Status: Acute Plan Permanent sutures removed in office. Patient tolerated well. 03/02/25820 Date Tamiko Mccarthy MD Cosigner Signature: Date (if applicable) CC: Normal [facility] CT Chest, Abd, Pel w/Contras ton 02-21-2025 CT Chest, Abd, Pel w/Contrast [facility] Imaging Services [address] [place] [address] [address] [address] Chest, Abd, Pel w/Contrast MR#: [id number] Acct: [id number] Name: SHAUNA RAINEY Rep #: [id number] : 1995 F 29 From: Aquilino randhawa MD PCP: YENNI Hartman Status: REG CLI Study: CT Chest, Abd, Pel w/Contrast Date of Exam: Exam# [id number] Ordering Dr: Sheila Eubanks [employer] OPERATOR [employer]PERATOR -C PROCEDURE: CT CHEST, ABD, PEL W/CONTRAST 02/21/2025 REASON FOR EXAM: BREAST CANCER STAGING TECHNIQUE: Chest, abdomen and pelvis CT with intravenous contrast. Coronal and Sagittal reconstruction series were provided. One or more dose reduction techniques were used (e.g., Automated exposure control, adjustment of the mA and/or kV according to patient size, use of iterative reconstruction technique. PATIENT PREPARATION: Per protocol ORAL CONTRAST TYPE: Readi-Cat. CONTRAST: Isovue 370 VOLUME: 95mL RADIATION DOSE SUMMARY: CTDlvol: 11.5 mGy DLP: 1020.66 mGycm COMPARISON: None FINDINGS: CT CHEST: Hardware: A right-sided port a catheter is seen with the tip in the superior vena cava. Postsurgical changes are seen in the left breast. There is a 1.3 cm nodular density in the inferior medial portion of the left breast. Lymph nodes: No evidence of hilar or mediastinal lymphadenopathy. Heart and Vasculature: The heart is nonenlarged. No coronary artery calcification is seen. Lungs and Airways: Unremarkable Pleura: Unremarkable Bones: Unremarkable CT ABDOMEN/PELVIS: Liver: Normal size. No mass. Gallbladder: Unremarkable Spleen: Normal size. Pancreas: Normal size without evidence of mass surrounding inflammation or ductal dilation. Adrenals: Unremarkable Kidneys: Normal renal sizes. No hydronephrosis. Bladder: Unremarkable Reproductive Organs: Normal uterine size and contour. There is a 2.2 cm cyst in the left ovary. Small follicles are seen in the right ovary. Bowel: Unremarkable Appendix: Unremarkable Lymph nodes: Unremarkable. Vasculature: The abdominal aorta and IVC are normal. Peritoneum / Retroperitoneum: Small umbilical hernia containing fat. Bones: Unremarkable CT/CT Chest, Abd, Pel w/Contrast IMPRESSION: Small umbilical hernia containing fat. Follicles are seen in both ovaries more prominent on the left side. Reading Location: [place] [address] CC: ROBERT Eubanks; YENNI Hartman Bee Raiser: Signed Normal [facility] GENETIC SENDOUTon 02-21-2025 Genetic Test Name Custom Panel Normal [facility] Comment on above: Order Comment: Name of Test:->Custom Panel Billing type:->Direct Specimen Type->Blood Specimen requirements:->3 ml in edta and 1.5 ml in pax What is the sendout facility name, if known?->[facility] Normal [facility] Comment on above: Order Comment: Name of Test:->Custom Panel Billing type:->Direct Specimen Type->Blood Specimen requirements:->3 ml in edta and 1.5 ml in pax What is the sendout facility name, if known?->[facility] Miscellaneous Results Patient results sc anned into [facility] Comment on above: Order Comment: Name of Test:->Custom Panel Billing type:->Direct Specimen Type->Blood Specimen requirements:->3 ml in edta and 1.5 ml in pax What is the sendout facility name, if known?->[facility] Bone Scan Whole Bodyon 02-14 Bone Scan Whole Body [facility] Imaging Services [address] [place], [place] [id number] Bone Scan Whole Body MR#: [id number] Acct: [id number] Name: SHAUNA RAINEY Rep #: [id number] : 1995 F 29 From: Figueroa Hernández PCP: YENNI Hartman Status: REG CLI Study: Bone Scan Whole Body Date of Exam: 02/14/25 Exam# [id number] Ordering Dr: Sheila Eubanks NP, NP -Gurdeep PROCEDURE: BONE SCAN WHOLE BODY 02/14/2025 REASON FOR EXAM: BREAST CANCER STAGING TECHNIQUE: Delayed whole-body bone scan after radiopharmaceutical administration RADIOPHARMACEUTICAL: 27.1 mCi Technetium-99m MDP IV COMPARISON: None. FINDINGS: No evidence of osseous metastatic disease. No significant area of abnormal uptake is noted. NM/Bone Scan Whole Body IMPRESSION: No scintigraphic evidence of osseous metastatic disease. Reading Location: [address] CC: CARBON CAPTURE POWER PLANT OPERATORWilli Eubanks; YENNI Hartman Bee Raiser: Signed [facility] Chest 1 View (Portable)on Chest 1 View (Portable) [facility] Imaging Services [address] [place], [place] [id number] Chest 1 View (Portable) MR#: [id number] Acct: [id number] Name: SHAUNA RAINEY Rep #: [id number] : 1995 F 29 From: Figueroa Hernández PCP: YENNI Hartman Status: REG [facility] Study: Chest 1 View (Portable) Date of Exam: 02/13/25 Exam# [id number] Ordering Dr: Tamiko Mccarthy MD PROCEDURE: CHEST 1 VIEW (PORTABLE) 02/13/2025 [...] acute osseous change is seen. Reading Location: [address] CC: Dr. Tamiko Mccarthy MD; YENNI Hartman Bee Raiser: Signed [facility] Discharge Instructionon Discharge Instruction [facility] Medical Records Department [address] [place] [address] Instructions for Home/Discharge Instructions 02/13/25 0824 MR#: [id number] Acct: [id number] Name: SHAUNA RAINEY Rep #: [id number] : 1995 29 From: Tamiko Mccarthy MD PCP: YENNI Hartman Status:REG [facility] Discharge Instructions Procedure Port-A-Cath Diet Discharge Diet: [...] Up Care Please Follow Up With: Tamiko Mccarthy MD When: In 10 days for permanent suture removal???call office for appointment Test Results: Test results from this visit will be discussed in further detail at your follow-up appointment, if applicable. Discharge Plan Admission Attending Provider: Tamiko Mccarthy Primary Care Provider: Ryan Cochran Instructions Print Language: Filipino Discharge Orders/Prescriptions Prescriptions: New oxycodone 5 mg capsule 5 mg PO Q6H PRN (Reason: pain) 3 Days Qty: 5 0RF No Action acetaminophen 500 mg capsule 1,000 mg PO Q6H PRN (Reason: pain) Referrals / Follow Up: Ryan Cochran PA [Primary Care Provider] - Disposition Disposition (needs filled in before D/C Order can be placed): Home, Self Care 02/13/25824 Tamiko Mccarthy MD CC: YENNI Hartman Signed [facility] MR/POSTOP.[facility] 02-13-2025 MR/POSTOP.[facility] Medical Records Department [address] [place] [address] Anesthesia Postop Eval I 02/13/25829 MR#: [id number] Acct: [id number] Name: SHAUNA RAINEY Rep #: [id number] : 1995 29 From: Bonnie Ray CRNA PCP: YENNI Hartman Status:REG IAC Y Race: C Location: [place] [address] Anesthesia: Postop Eval I Current Vital Signs [...] Eval 1 completed: Yes 02/13/25830 Date Bonnie Valemartindamien Signature: Date CC: Signed [facility] Operative Reporton [address] [facility] Medical Records Department [address] [place] [address] Operative Report 02/13/25821 MR#: [id number] Acct: [id number] Name: SHAUNA RAINEY Rep #: [id number] : 1995 29 From: Tamiko Mccarthy MD PCP: YENNI Hartman Status:[facility] Location: [facility] Operative Report (Standard) Operative Information Date of Procedure: 02/13/25 Pre-Operative Diagnosis: Z45.2, left breast cancer Post-Operative Diagnosis: Same Surgery/Procedure Performed: Placement of right IJ Port-A-Cath Use of ultrasound Use of fluoroscopy email marketing assistant: No Type of Anesthesia: Local MAC RN [...] Bard PowerPort isp M.R.I. 6Fr Lot Lot [id number] Special Medications: Ancef 2 g IV x [...] Cosigner Signature (if applicable): CC: Dr. Tamiko Mccarthy MD; YENNI Hartman Signed [facility] ,Urineon 02-13-2025 Beta HCG ( test) Ql (U) Negative [facility] Comment on above: Result Comment: Very dilute urine specimens, as indicated by a low specific gravity, may not contain human resources hr representative levels of hCG. If is still suspected, a first morning urine specimen should be collected 48 hours later and tested. Performed By: #### L 501.2300 #### [facility] [address] [place], [address] Urine testOrdered By: Sunil Anderson on 02-13-2025 HCG ( test) Ql (U) Negative [facility] Comment on above: Very dilute urine sp ecimens, as indicated by a low specificgravity, may not contain human resources hr representative levels of hCG. If is still suspected, a first morning urinespecimen should be collected 48 hours later and tested. Echocardiogram study reportO rdered By: Jayjay Mccabe on 02-08-2025 Study report [facility] Cardiovascular Services [address] [place] [address] ONC Echo Complete 02/08/25 1318 MR#: [id number] Acct: [id number] Name: SHAUNA RAINEY Rep #:[id number] : 1995 29 From: Jayjay Hernández [...] The global longitudinal strain = -22.3% (normal). ___ Ordering Physician: Ara Franklin Referring Physician: Ara Franklin Performed By: Sonal Payan and Student 02/08/25 1445 Date _ Jayjay Mccabe MD CC: Dr. Ara Franklin MD; YENNI Hartman ~ Date Dictated: 02/08/25 1318 Date Transcribed: 02/08/251444 Bee Raiser: Signed [facility] Work Phone: ONC Echo Completeon 02-09-[address] [facility] Cardiovascular Services [address] [place] [address] ONC Echo Complete 02/08/258 MR#: [id number] Acct: [id number] Name: SHAUNA RAINEY Rep #: [id number] : 1995 29 From: Jayjay Mccabe MD Attending Dr: Dr. Ara Franklin MD Status: REG CLI Ordering Dr: Ara Franklin MD Date: 02/08/25 Location: [facility] Sex: F C Admitted: Reason For [...] global longitudinal strain = -22.3 % (normal). ___ Ordering Physician: Ara Franklin Referring Physician: Ara Farnklin Performed By: Sonal Payan and Student 02/08/25 1445 Date Jayajy Mccabe MD CC: Dr. Ara Franklin MD; YENNI Hartman Date Dictated: 02/08/25 1318 Date Transcribed: 02/08/25 144 Bee Raiser: Signed [facility] Plastic Surgery Visit Report on 02-08-2025 Plastic Surgery Visit Report [facility] Plastic Reconstructive Surgery [address] [place] [address] OFFICE VISIT Date of Service: 02/08/25 MR#: [id number] Acct: [id number] Name: SHAUNA RAINEY Rep #: [id number] : 1995 Provider: Dr. 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 There were no abnormal or large left [...] or incontinence Exam Details Breast Exam: Female special education coordinator present during my exam Extremity Lymphedema: No Asymmetry: Significant Masses: Firm masses behind (more content not included)... [facility] Breast Limited Unilateralon 01-31-2025 Breast Limited Unilateral [facility] Imaging Services [address] [place] [address] Breast Limited Unilateral MR#: [id number] Acct: [id number] Name: SHAUNA RAINEY Rep #: [id number] : 1995 F 29 From: Renetta Garcia MD PCP: YENNI Hartman Status: REG CLI Study: Breast Limited Unilateral Date of Exam: Exam# [id number] Ordering Dr: Tamiko Mccarthy MD PROCEDURE: BREAST LIMITED UNILATERAL 01/31/2025 REASON [...] the biopsy-proven left breast malignancy. Reading Location: [id number] CC: Dr. Tamiko Mccarthy MD; YENNI Hartman Bee Raiser: Signed [facility] Absolute lymphocyte countOrd ered By: [facility] Rigoberto on 01-29-2025 Lymphocytes Auto (Unsp spec) [#/Vol] 2.30 10*3/uL 0.83-4.51 [facility] Absolute neutrophil countOrd ered By: [facility] Rigoberto on 01-29-2025 Neutrophils (Bld) [#/Vol] 3.6 10*3/uL 2.0-7.7 [facility] Anion gap in Serum or Plasma Ordered [facility]: [facility] on 01-29-2025 Anion gap [Moles/Vol] 12 mmol/L 5-15 [facility] Automated lymphocyte count a s percentage of total leukocytesOrdered By: [facility] Rigoberto on 01-29-2025 Lymphocytes/100 WBC Auto (Unsp spec) 33.7 % 19-41 [facility] BUN/creatinine ratioOrdered By: [facility] Rigoberto on 01-29-2025 Urea nitrogen/Creatinine [Mass ratio] 25.6 mg/mg High 10-20 [facility] Basophil percentageOrdered B y: [facility] Franklin on 01-29-2025 Basophils/100 WBC (Bld) 0.9 % 0-1 [facility] Bilirubin, totalOrdered By: [facility] Rigoberto on 01-29-2025 Bilirubin [Mass/Vol] 0.36 mg/dL 0.00-1.30 [facility] CBC W/Diff, Automatedon 01-08 3-2024 Absolute Lymph 2.30 X10 3/uL Normal 0.83-4.51 [facility] Comment on above: Performed By: #### L 100.9950, L503.6030, L500.4050, L503.6550, L100.0100, L503.0106 ####[facility] [address] [place], [address] Absolute Neut 3.6 X10 3/uL Normal 2.0-7.7 [facility] Comment on above: Performed By: #### L 100.9950, L503.6030, L500.4050, L503.6550, L100.0100, L503.0106 ####[facility] [address] [place], [address] Basophils/100 WBC (Bld) 0.9 % Normal 0-1 [facility] Comment on above: Performed By: #### L 100.9950, L503.6030, L500.4050, L503.6550, L100.0100, L503.0106 ####[facility] [address] [place], [address] Eosinophils/100 WBC (Bld) 4.7 % Normal 0-5 [facility] Comment on above: Performed By: #### L 100.9950, L503.6030, L500.4050, L503.6550, L100.0100, L503.0106 ####[facility] [address] [place], [address] Erythrocyte distribution width (RBC) [Ratio] 12.9 % Normal 11.6-14.6 [facility] Comment on above: Performed By: #### L 100.9950, L503.6030, L500.4050, L503.6550, L100.0100, L503.0106 ####[facility] [address] [place], [address] Hematocrit (Bld) [Volume fraction] 39.7 % Normal 37-47 [facility] Comment on above: Performed By: #### L 100.9950, L503.6030, L500.4050, L503.6550, L100.0100, L503.0106 ####[facility] [address] [place], [address] Hemoglobin (Bld) [Mass/Vol] 13.2 g/dL Normal 12.0-15.0 [facility] Comment on above: Performed By: #### L 100.9950, L503.6030, L500.4050, L503.6550, L100.0100, L503.0106 ####[facility] [address] [place], [address] IG% 0.300 Normal 0.0-0.9 [facility] Comment on above: Result Comment: IG% - Immature Granulocytes (promyelocytes, myelocytes and metamyelocytes) > 1% indicates that a LEFT SHIFT is Present. Performed By: #### L 100.9950, L503.6030, L500.4050, L503.6550, L100.0100, L503.0106 ####[facility] [address] [place], [address] Lymphocytes/100 WBC (Bld) 33.7 % Normal 19-41 [facility] Comment on above: Performed By: #### L 100.9950, L503.6030, L500.4050, L503.6550, L100.0100, L503.0106 ####[facility] [address] [place], [address] MCH (RBC) [Entitic mass] 29.7 pg Normal 27.0-32.0 [facility] Comment on above: Performed By: #### L 100.9950, L503.6030, L500.4050, L503.6550, L100.0100, L503.0106 ####[facility] [address] [place], [address] MCHC (RBC) [Mass/Vol] 33.2 g/dL Normal 32-36 [facility] Comment on above: Performed By: #### L 100.9950, L503.6030, L500.4050, L503.6550, L100.0100, L503.0106 ####[facility] [address] [place], [address] MCV (RBC) [Entitic vol] 89.2 fL Normal 81-99 [facility] Comment on above: Performed By: #### L 100.9950, L503.6030, L500.4050, L503.6550, L100.0100, L503.0106 ####[facility] [address] [place], [address] Monocytes/100 WBC (Bld) 7.8 % Normal 0-10 [facility] Comment on above: Performed By: #### L 100.9950, L503.6030, L500.4050, L503.6550, L100.0100, L503.0106 ####[facility] [address] [place], [address] Neutrophils/100 WBC (Bld) 52.6 % Normal 47-70 [facility] Comment on above: Performed By: #### L 100.9950, L503.6030, L500.4050, L503.6550, L100.0100, L503.0106 ####[facility] [address] [place], [address] Nucleated RBC (Bld) [#/Vol] 0 10*3/uL Normal 0-5 [facility] Comment on above: Performed By: #### L 100.9950, L503.6030, L500.4050, L503.6550, L100.0100, L503.0106 ####[facility] [address] [place], [address] Platelet mean volume (Bld) [Entitic vol] 9.1 fL Normal 6.2-12.0 [facility] Comment on above: Performed By: #### L 100.9950, L503.6030, L500.4050, L503.6550, L100.0100, L503.0106 ####[facility] [address] [place], [address] Platelets (Bld) [#/Vol] 264 10*3/uL Normal 150-450 [facility] Comment on above: Performed By: #### L 100.9950, L503.6030, L500.4050, L503.6550, L100.0100, L503.0106 ####[facility] [address] [place], [address] RBC (Bld) [#/Vol] 4.45 10*6/uL Normal 4.2-5.4 [facility] Comment on above: Performed By: #### L 100.9950, L503.6030, L500.4050, L503.6550, L100.0100, L503.0106 ####[facility] [address] [place], [address] RDW SD 42.3 fl Normal 35.1-43.9 [facility] Comment on above: Performed By: #### L 100.9950, L503.6030, L500.4050, L503.6550, L100.0100, L503.0106 ####[facility] [address] [place], [address] WBC (Bld) [#/Vol] 6.8 10*3/uL Normal 4.4-11.0 [facility] Comment on above: Performed By: #### L 100.9950, L503.6030, L500.4050, L503.6550, L100.0100, L503.0106 ####[facility] [address] [place], [address] Carbon dioxide, total [Moles /volume] in Central venous bloodOrdered By: Ara Franklin on 01-29-2025 CO2 [Moles/Vol] 24.0 mmol/L 21.0-32.0 [facility] Chloride assayOrdered By: Huong Franklin on 01-29-2025 Chloride [Moles/Vol] 103 mmol/L 98-108 [facility] Comprehensive Metabolic Prof ilon 01-29-2025 Albumin [Mass/Vol] 4.3 g/dL Normal 3.5-5.0 [facility] Comment on above: Performed By: #### L 100.9950, L503.6030, L500.4050, L503.6550, L100.0100, L503.0106 ####[facility] [address] [place], [address] Albumin/Globulin [Mass ratio] 1.5 {ratio} Normal 0.9-2.4 [facility] Comment on above: Performed By: #### L 100.9950, L503.6030, L500.4050, L503.6550, L100.0100, L503.0106 ####[facility] [address] [place], [address] ALK PHOS 68 U/L Normal 35-104 [facility] Comment on above: Performed By: #### L 100.9950, L503.6030, L500.4050, L503.6550, L100.0100, L503.0106 ####[facility] [address] [place], [address] ALT [Catalytic activity/Vol] 24 U/L Normal <=34 [facility] Comment on above: Performed By: #### L 100.9950, L503.6030, L500.4050, L503.6550, L100.0100, L503.0106 ####[facility] [address] [place], [address] AST [Catalytic activity/Vol] 19 U/L Normal <=31 [facility] Comment on above: Performed By: #### L 100.9950, L503.6030, L500.4050, L503.6550, L100.0100, L503.0106 ####[facility] [address] [place], [address] Bilirubin [Mass/Vol] 0.36 mg/dL Normal 0.00-1.30 [facility] Comment on above: Performed By: #### L 100.9950, L503.6030, L500.4050, L503.6550, L100.0100, L503.0106 ####[facility] [address] [place], [address] BUN/CRE 25.6 RATIO High 10-20 [facility] Comment on above: Performed By: #### L 100.9950, L503.6030, L500.4050, L503.6550, L100.0100, L503.0106 ####[facility] [address] [place], [address] Calcium [Mass/Vol] 9.3 mg/dL Normal 7.6-11.0 [facility] Comment on above: Performed By: #### L 100.9950, L503.6030, L500.4050, L503.6550, L100.0100, L503.0106 ####[facility] [address] [place], [address] Chloride [Moles/Vol] 103 mmol/L Normal 98-108 [facility] Comment on above: Performed By: #### L 100.9950, L503.6030, L500.4050, L503.6550, L100.0100, L503.0106 ####[facility] [address] [place], [address] CO2 [Moles/Vol] 24.0 mmol/L Normal 21.0-32.0 [facility] Comment on above: Performed By: #### L 100.9950, L503.6030, L500.4050, L503.6550, L100.0100, L503.0106 ####[facility] [address] [place], [address] Creatinine [Mass/Vol] 0.61 mg/dL Low 0.70-1.20 [facility] Comment on above: Performed By: #### L 100.9950, L503.6030, L500.4050, L503.6550, L100.0100, L503.0106 ####[facility] [address] [place], [address] GAP 12 Normal 5-15 [facility] Comment on above: Performed By: #### L 100.9950, L503.6030, L500.4050, L503.6550, L100.0100, L503.0106 ####[facility] [address] [place], [address] GFR/1.73 sq M.predicted among non-blacks MDRD (S/P/Bld) [Vol rate/Area] 125 mL/min/{1.73_m2} Normal >60 [facility] Comment on above: Result Comment: mL/m in/1.73m2 CKD-EPI Creatinine Equation (2020) Performed By: #### L 100.9950, L503.6030, L500.4050, L503.6550, L100.0100, L503.0106 ####[facility] [address] [place], [address] Globulin (S) [Mass/Vol] 2.9 g/dL Normal 2.2-4.2 [facility] Comment on above: Performed By: #### L 100.9950, L503.6030, L500.4050, L503.6550, L100.0100, L503.0106 ####[facility] [address] [place], [address] Glucose [Mass/Vol] 92 mg/dL Normal 70-99 [facility] Comment on above: Performed By: #### L 100.9950, L503.6030, L500.4050, L503.6550, L100.0100, L503.0106 ####[facility] [address] [place], [address] Potassium [Moles/Vol] 3.8 mmol/L Normal 3.3-5.1 [facility] Comment on above: Performed By: #### L 100.9950, L503.6030, L500.4050, L503.6550, L100.0100, L503.0106 ####[facility] [address] [place], [address] Sodium [Moles/Vol] 139 mmol/L Normal 133-145 [facility] Comment on above: Performed By: #### L 100.9950, L503.6030, L500.4050, L503.6550, L100.0100, L503.0106 ####[facility] [address] [place], [address] T PROT 7.2 g/dL Normal 5.9-8.4 [facility] Comment on above: Performed By: #### L 100.9950, L503.6030, L500.4050, L503.6550, L100.0100, L503.0106 ####[facility] [address] [place], [address] Urea nitrogen [Mass/Vol] 16 mg/dL Normal 4-19 [facility] Comment on above: Performed By: #### L 100.9950, L503.6030, L500.4050, L503.6550, L100.0100, L503.0106 ####[facility] [address] [place], [place], [address] Eosinophil percentageOrdered By: Ara Franklin on 01-29-2025 Eosinophils/100 WBC (Bld) 4.7 % 0-5 [facility] Erythrocyte distribution wid th ratioOrdered By: Ara Franklin on 01-29-2025 Erythrocyte distribution width (RBC) [Ratio] 12.9 % 11.6-14.6 [facility] Erythrocyte distribution wid th standard deviationOrdered By: [facility] on 01-29-2025 Erythrocyte distribution width (RBC) [Ratio] 42.3 fl 35.1-43.9 [facility] Ferritinon 01-29-2025 Ferritin [Mass/Vol] 62 ng/mL Normal 22-378 [facility] Comment on above: Performed By: #### L 100.9950, L503.6030, L500.4050, L503.6550, L100.0100, L503.0106 ####[facility] [address] [place], [place], [address] Glomerular filtration rate ( GFR) estimation/1.73 sq m using serum, plasma, or whole bOrdered By: Ara Franklin on 01-29-2025 GFR/1.73 sq M.predicted among non-blacks MDRD (S/P/Bld) [Vol rate/Area] 125 mL/min/{1.73_m2} >60 [facility] Comment on above: mL/min/1.73m2 CKD-EP I Creatinine Equation (2020) Hematocrit Auto (Bld) [Volum e fraction]Ordered By: Ara Franklin on 01-29-2025 Hematocrit (Bld) [Volume fraction] 39.7 % 37-47 [facility] Hemoglobin measurementOrdere d By: Ara Franklin on 01-29-2025 Hemoglobin (Bld) [Mass/Vol] 13.2 g/dL 12.0-15.0 [facility] Immature granulocytes/100 WB C Auto (Bld)Ordered By: Ara Franklin on 01-29-2025 Immature granulocytes/100 WBC (Bld) 0.300 % 0.0-0.9 [facility] Comment on above: IG% - Immature Granu locytes (promyelocytes, myelocytes and metamyelocytes) > 1% indicates that a LEFT SHIFT is Present. Iron measurement (mass/mass) Ordered By: Ara Franklin on 01-29-2025 Iron (Unsp spec) [Mass/Mass] 92 ug/dL 50-170 [facility] Iron+Iron Binding Capacityon 01-29-2025 Iron [Mass/Vol] 92 ug/dL Normal 50-170 [facility] Comment on above: Performed By: #### L 100.9950, L503.6030, L500.4050, L503.6550, L100.0100, L503.0106 ####[facility] [address] [place], [address] IRON SATURATION 33.0 Normal 13-59 [facility] Comment on above: Performed By: #### L 100.9950, L503.6030, L500.4050, L503.6550, L100.0100, L503.0106 ####[facility] [address] [place], [address] TIBC 279 ug/dL Normal 250-450 [facility] Comment on above: Performed By: #### L 100.9950, L503.6030, L500.4050, L503.6550, L100.0100, L503.0106 ####[facility] [address] [place], [address] UIBC 187 ug/dL Low 228-428 [facility] Comment on above: Performed By: #### L 100.9950, L503.6030, L500.4050, L503.6550, L100.0100, L503.0106 ####[facility] [address] [place], [address] Laboratory - Chemistry and C hemistry - challengeOrdered By: Ara Franklin on 01-29-2025 AST [Catalytic activity/Vol] 19 U/L <32 [facility] MCV (mean corpuscular volume ) determinationOrdered By: Ara Rigoberto on 01-29-2025 MCV (RBC) [Entitic vol] 89.2 fL 81-99 [facility] Magnetic resonance imaging r eportOrdered By: Kristen Del Cid on 01-29-2025 Study report [facility] Imaging Services [address] [place] [address] Breast Bilateral W/O and W MR#: [id number] Acct: [id number] Name: SHAUNA RAINEY Rep #: [id number] : 1995 F 29 From: Leodan Del Cid DO PCP: YENNI Hartman Status: REG CLI Study:Breast Bilateral W/O and W Date of Exam : 01/25/25 Exam# [id number] Ordering Dr: Tamiko Mccarthy MD PROCEDURE: BREAST BILATERAL W/O AND W [...] the right breast is recommended. Reading Location: [id number] CC: Dr. Tamiko Mccarthy MD; YENNI Hartman ~ Bee Raiser: Signed [facility] Mean corpuscular hemoglobin (MCH) determinationOrdered By: [facility] Rigoberto on 01-29-2025 MCH (RBC) [Entitic mass] 29.7 pg 27.0-32.0 [facility] Mean corpuscular hemoglobin concentration (MCHC) determinationOrdered By: [facility] Rigoberto on 01-29-2025 MCHC (RBC) [Mass/Vol] 33.2 g/dL 32-36 [facility] Mean platelet volume determi nationOrdered By: Ara Franklin on 01-29-2025 Platelet mean volume (Bld) [Entitic vol] 9.1 fL 6.2-12.0 [facility] Monocyte percentageOrdered B y: Ara Franklin on 01-29-2025 Monocytes/100 WBC (Bld) 7.8 % 0-10 [facility] Neutrophil percentageOrdered By: [facility] Rigoberto on 01-29-2025 Neutrophils/100 WBC (Bld) 52.6 % 47-70 [facility] No Panel InformationOrdered By: Ara Franklin on 01-29-2025 Unsaturated Iron Binding Capacity 187 ug/dL Low 228-428 [facility] Nucleated red blood cell per centageOrdered By: [facility] Rigoberto on 01-29-2025 Nucleated RBC/100 WBC (Bld) [Ratio] 0 % 0-5 [facility] Oncology Visit Reporton 01-08 Oncology Visit Report [facility] [address] [place] [address] OFFICE VISIT Date of Service: 01/29/25 1515 MR#: [id number] Acct: [id number] Name: SHAUNA RAINEY Rep #: [id number] : 1995 From: Ara Franklin MD Age/Sex: 29/F Location: [facility] Status: Signed HPI Subjective Date of Service [...] 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 January 25, [...] FINAL ASSESSMENT BI-RADS 6: KNOWN BIOPSY-PROVEN MALIGNANCY. [facility] Medical History (Updated 01/29/25 @ 16:03 by [...] Temperature Source (more content not included)... [facility] Platelet countOrdered By: Huong Franklin on 01-29-2025 Platelets (Bld) [#/Vol] 264 10*3/uL 150-450 [facility] Potassium measurement (mass/ volume)Ordered By: Ara Franklin on 01-29-2025 Potassium (Unsp spec) [Mass/Vol] 3.8 mmol/L 3.3-5.1 [facility] RBC Auto (Bld) [#/Vol]Ordere d By: Ara Franklin on 01-29-2025 RBC (Bld) [#/Vol] 4.45 10*6/uL 4.2-5.4 [facility] Retic Panelon 01-29-2025 IM RET FRACTION 5.10 Normal 3.00-15.90 [facility] Comment on above: Performed By: #### L 100.9950, L503.6030, L500.4050, L503.6550, L100.0100, L503.0106 ####[facility] [address] [place], [place], [id number] RET-HE 33.6 pg Normal 30-35 [facility] Comment on above: Performed By: #### L 100.9950, L503.6030, L500.4050, L503.6550, L100.0100, L503.0106 ####[facility] [address] [place], [place], [id number] Retic Count 1.49 Normal 0.5-1.5 [facility] Comment on above: Performed By: #### L 100.9950, L503.6030, L500.4050, L503.6550, L100.0100, L503.0106 ####[facility] [address] [place], [place], [id number] Reticulocyte hemoglobin equi valent (RET-He) measurementOrdered By: Ara Franklin on 01-29-2025 Hemoglobin (Reticulocytes) [Entitic mass] 33.6 pg 30-35 [facility] Reticulocytes Auto (Bld) [#/ Vol]Ordered By: Ara Franklin on 01-29-2025 Reticulocytes/100 RBC (Bld) 1.49 % 0.5-1.5 [facility] Serum creatinine measurement (mass/volume)Ordered By: Ara Franklin on 01-29-2025 Creatinine [Mass/Vol] 0.61 mg/dL Low 0.70-1.20 [facility] Serum globulin measurementOr dered By: Ara Franklin on 01-29-2025 Globulin (S) [Mass/Vol] 2.9 g/dL 2.2-4.2 [facility] Serum glucose measurement (m ass/volume)Ordered By: Ara Franklin on 01-29-2025 Glucose [Mass/Vol] 92 mg/dL 70-99 [facility] Serum or plasma alanine mcdonald otransferase (ALT) measurementOrdered By: Ara Franklin on 01-29-2025 ALT [Catalytic activity/Vol] 24 U/L <35 [facility] Serum or plasma albumin ernestine urement (mass/volume)Ordered By: Ara Franklin on 01-29-2025 Albumin [Mass/Vol] 4.3 g/dL 3.5-5.0 [facility] Serum or plasma albumin/glob ulin mass ratioOrdered By: Ara Franklin on 01-29-2025 Albumin/Globulin [Mass ratio] 1.5 {ratio} 0.9-2.4 [facility] Serum or plasma alkaline chuckie sphatase measurementOrdered By: Ara Franklin on 01-29-2025 ALP [Catalytic activity/Vol] 68 U/L 35-104 [facility] Serum or plasma calcium ernestine urement (mass/volume)Ordered By: Ara Franklin on 01-29-2025 Calcium [Mass/Vol] 9.3 mg/dL 7.6-11.0 [facility] Serum or plasma ferritin ольга surement (mass/volume)Ordered By: Ara Franklin on 01-29-2025 Ferritin [Mass/Vol] 62 ng/mL 22-378 [facility] Serum or plasma iron saturat ion measurement (mass fraction)Ordered By: Ara Franklin on 01-29-2025 Iron saturation [Mass fraction] 33.0 % 13-59 [facility] Serum or plasma urea nitroge n measurement (mass/volume)Ordered By: Ara Franklin on 01-29-2025 Urea nitrogen [Mass/Vol] 16 mg/dL 4-19 [facility] Sodium levelOrdered By: Marlys chaparro Rigoberto on 01-29-2025 Sodium [Moles/Vol] 139 mmol/L 133-145 [facility] Total proteinOrdered By: Andrés rhodes Rigoberto on 01-29-2025 Protein [Mass/Vol] 7.2 g/dL 5.9-8.4 [facility] Vitamin B12on 01-29-2025 Cobalamin (Vitamin B12) [Mass/Vol] 565 pg/mL Normal 180-914 [facility] Comment on above: Performed By: #### L 100.9950, L503.6030, L500.4050, L503.6550, L100.0100, L503.0106 ####[facility] [address] [facility] [place], [place], [phone] Vitamin B12 ser/plasOrdered By: Ara Rigoberto on 01-29-2025 Cobalamin (Vitamin B12) [Mass/Vol] 565 pg/mL 180-914 [facility] White blood cell (WBC) count Ordered By: Ara Rigoberto on 01-29-2025 WBC (Bld) [#/Vol] 6.8 10*3/uL 4.4-11.0 [facility] Breast Bilateral W/O and Won 01-25-2025 Breast Bilateral W/O and W [facility] Imaging Services [address], [place] [address] Breast Bilateral W/O and W MR#: [id number] Acct: [id number] Name: SHAUNA RAINEY Rep #: [id number] : 1995 F 29 From: Kristen May PCP: YENNI Hartman Status: REG CLI Study: Breast Bilateral W/O and W Date of Exam: 01/25 Exam# [id number] Ordering Dr: Tamiko Mccarthy MD PROCEDURE: BREAST BILATERAL W/O AND W [...] the right breast is recommended. Reading Location: [id number] CC: Dr. Tamiko Mccarthy MD; YENNI Hartman Bee Raiser: Signed [facility] Surgery Visit Reporton 01-[address] [facility] [address] [place] [address]. [address] [place] [address] OFFICE VISIT Date of Service: 01/23/25 MR#: [id number] Acct: [id number] Name: SHAUNA RAINEY Rep #: [id number] : 1995 Provider: Dr. 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 Ultrasound did not show any abnormal or [...] surgery C (more content not included)... [facility] BI BREAST BIOPSY CLIP IMAGIN Dimitri [...] AM -------- ORIGINAL REPORT -------- Dictation workstation: [id number] Interpreted By: Adithya Shaw, STUDY: BI US GUIDED BREAST LOCALIZATION AND BIOPSY LEFT; BI BREAST BIOPSY CLIP IMAGING; 01/12/2025 12:05 pm; 01/12/2025 11:32 am ACCESSION NUMBER(S): [id number]; [id number] ORDERING CLINICIAN: RYAN COCHRAN INDICATION: Left breast [...] Dr. Shaw, a radiology nurse and an radiation therapy technologist were present. PROCEDURE: Scanning of the [...] Adithya Shaw 01/12/2025 1:04 PM Dictation workstation: [id number] [facility] BI US GUIDED BREAST LOCALIZA TION AND [...] AM -------- ORIGINAL REPORT -------- Dictation workstation: [id number] Interpreted By: Adithya Shaw, STUDY: BI US GUIDED BREAST LOCALIZATION AND BIOPSY LEFT; BI BREAST BIOPSY CLIP IMAGING; 01/12/2025 12:05 pm; 01/12/2025 11:32 am ACCESSION NUMBER(S): [id number]; [id number] ORDERING CLINICIAN: RYAN COCHRAN INDICATION: Left breast [...] Dr. Shaw, a radiology nurse and an radiation therapy technologist were present. PROCEDURE: Scanning of the [...] Adithya Shaw 01/12/2025 1:04 PM Dictation workstation: [id number] [facility] MG Breast - unilateral Singl e view for clip placementon 01-12-2025 Radiology Study observation (narrative) [facility] Work Phone: No Panel Informationon 01-12 Status post ultrasou nd guided core needle biopsy of 3 left breast masses followed by tissue marker placement. Pathology is pending. POST PROCEDURE MAMMOGRAM FOR MARKER PLACEMENT. MACRO: None Signed by: Adithya Shaw 01/12/2025 1:04 PM Dictation workstation: [id number] [facility] Interpreted By: Adithya Huertas, STUDY: BI US GUIDED BREAST LOCALIZATION AND BIOPSY LEFT; BI BREAST BIOPSY CLIP IMAGING; 01/12/2025 12:05 pm; 01/12/2025 11:32 am ACCESSION NUMBER(S): [id number]; [id number] ORDERING CLINICIAN: RYAN COCHRAN INDICATION: Left breast [...] Dr. Shaw, a radiology nurse and an radiation therapy technologist were present. PROCEDURE: Scanning of the [...] 12:05 pm; 01/12/2025 11:32 am ACCESSION NUMBER(S): [id number]; [id number] ORDERING CLINICIAN: RYAN COCHRAN INDICATION: Left breast [...] Dr. Shaw, a radiology nurse and an radiation therapy technologist were present. PROCEDURE: Scanning of the [...] Adithya Shaw 01/12/2025 1:04 PM Dictation workstation: [id number] [facility] Work Phone: No Panel InformationOrdered By: Adithya Shaw on 01-12-2025 [facility] Work Phone: Surgical pathology studyon 0 01-12-2025 Surgical pathology study Pathology report.total SEE COMMENT Surgical Pathology Case: [id number] Authorizing Provider: Ryan Cocrhan PA-C Collected: 01/12/2025 1139 Ordering Location: [facility] Received: 01/12/2025 1221 Center Pathologist: [...] (FDA) cleared (test / vendor): Damien CONFIRM anti-(IL) (1E2) Rabbit Monoclonal Primary Anitbody, Damien Multimer [...] (FDA) cleared (test / vendor): Damien CONFIRM anti-(IL) (1E2) Rabbit Monoclonal Primary Anitbody, Damien Multimer [...] Primary Antibody: SP1 (more content not included)... [facility] US Guidance for localization of Breast - lefton 01-12-2025 Radiology Study observation (narrative) [facility] Work Phone: BI MAMMO BILATERAL DIAGNOSTI C TOMOSYNTHESISon 01-10-2025 BI MAMMO BILATERAL DIAGNOSTIC TOMOSYNTHESIS Interpreted By: Adithya Shaw, STUDY: BI MAMMO BILATERAL DIAGNOSTIC TOMOSYNTHESIS; BI US BREAST LIMITED LEFT; 01/10/2025 8:52 am; 01/10/2025 10:45 am ACCESSION NUMBER(S): [id number]; [id number] ORDERING CLINICIAN: RYAN COCHRAN INDICATION: Signs/Symptoms:L breast [...] Adithya Shaw 01/10/2025 11:20 AM Dictation workstation: [id number] [facility] BI US BREAST LIMITED LEFTon 01-10-2025 BI US BREAST LIMITED LEFT Interpreted By: Adithya Shaw, STUDY: BI MAMMO BILATERAL DIAGNOSTIC TOMOSYNTHESIS; BI US BREAST LIMITED LEFT; 01/10/2025 8:52 am; 01/10/2025 10:45 am ACCESSION NUMBER(S): [id number]; [id number] ORDERING CLINICIAN: RYAN COCHRAN INDICATION: Signs/Symptoms:L breast [...] Adithya Shaw 01/10/2025 11:20 AM Dictation workstation: [id number] Abnormal [facility] DBT Breast - bilateral diagn osticon 01-10-2025 Radiology Study observation (narrative) [facility] Work Phone: No Panel InformationOrdered By: Adithya Shaw on 01-10-2025 Interpretation and review of laboratory results Abnormal [facility] Work Phone: [facility] Work Phone: No Panel Informationon 01-10 Multiple [...] Adithya Shaw 01/10/2025 11:20 AM Dictation workstation: [id number] [facility] Interpreted By: Adithya Huertas, STUDY: BI MAMMO BILATERAL DIAGNOSTIC TOMOSYNTHESIS; BI US BREAST LIMITED LEFT; 01/10/2025 8:52 am; 01/10/2025 10:45 am ACCESSION NUMBER(S): [id number]; [id number] ORDERING CLINICIAN: RYAN COCHRAN INDICATION: Signs/Symptoms:L breast [...] identified. This study was interpreted with CAD. [facility] Adithya Shaw MD - 01/10/2025 Interpreted By: Adithya Shaw, STUDY: BI MAMMO BILATERAL DIAGNOSTIC TOMOSYNTHESIS; BI US BREAST LIMITED LEFT; 01/10/2025 8:52 am; 01/10/2025 10:45 am ACCESSION NUMBER(S): [id number]; [id number] ORDERING CLINICIAN: RYAN COCHRAN INDICATION: Signs/Symptoms:L breast [...] Adithya Shaw 01/10/2025 11:20 AM Dictation workstation: [id number] [facility] Work Phone: US Breast - left limitedon 0 01-10-2025 Radiology Study observation (narrative) [facility] Work Phone: CBC WITH AUTO DIFFERENTIALon 05-25-2024 AUTO NRBC 0.0 % Normal [facility] Comment on above: Performed By: #### L [id number] #### LAB [address] [address] Ivan Rizvi M.D. [id number] AUTO NRBC ABS COUNT 0.00 K/mcL Normal 0.00-0.00 [facility] Comment on above: Performed By: #### L [id number] #### [facility] LAB [address] [address] Ivan Rizvi M.D. [id number] BASOPHILS ABSOLUTE COUNT 0.04 K/mcL Normal 0.00-0.30 [facility] Comment on above: Performed By: #### L [id number] #### LAB [address] [address] Ivan Rizvi M.D. [id number] Basophils/100 WBC (Bld) 0.8 % Normal [facility] Comment on above: Performed By: #### L [id number] #### LAB [address] [place] [address] Ivan Rizvi M.D. [id number] Eosinophils (Bld) [#/Vol] 0.33 10*3/uL Normal 0.00-0.50 [facility] Comment on above: Performed By: #### L [id number] #### LAB [address] [place] [address] Ivan Rizvi M.D. [id number] Eosinophils/100 WBC (Bld) 6.7 % Normal [facility] Comment on above: Performed By: #### L [id number] #### LAB [address] [place] [address] Ivan Rizvi M.D. [id number] Erythrocyte distribution width (RBC) [Ratio] 14.8 % Normal 11.6-14.8 [facility] Comment on above: Performed By: #### L [id number] #### LAB [address] [place] [address] Ivan Rizvi M.D. [id number] Hematocrit (Bld) [Volume fraction] 42.0 % Normal 36.0-46.0 [facility] Comment on above: Performed By: #### L [id number] #### LAB [address] [address] Ivan Rizvi M.D. [id number] Hemoglobin (Bld) [Mass/Vol] 13.7 g/dL Normal 12.0-16.0 [facility] Comment on above: Performed By: #### L [id number] #### [facility] [address] [address] Ivan Rizvi M.D. [id number] IG ABSOLUTE 0.03 K/mcL Normal 0.00-0.30 [facility] Comment on above: Performed By: #### L [id number] #### LAB [address] [address] Ivan Rizvi M.D. [id number] IG PERCENT 0.60 % [facility] Comment on above: Result Comment: The IG parameter is the percentage of metamyelocytes, myelocytes and promyelocytes. An immature granulocyte count (IG) of 1% or more suggests the possibility of infection, an IG count of 3% is very likely related to an infection. Performed By: #### L [id number] #### LAB [address] [address] Ivan Rizvi M.D. [id number] Lymphocytes (Bld) [#/Vol] 1.94 10*3/uL Normal 0.90-4.00 [facility] Comment on above: Performed By: #### L [id number] #### LAB [address] [address] Ivan Rizvi M.D. [id number] Lymphocytes/100 WBC (Bld) 39.6 % Normal [facility] Comment on above: Performed By: #### L [id number] #### LAB [address] [address] Ivan Rizvi M.D. [id number] MCH (RBC) [Entitic mass] 28.8 pg Normal 26.0-34.0 [facility] Comment on above: Performed By: #### L [id number] #### LAB [address] [address] Ivan Rizvi M.D. [id number] MCV (RBC) [Entitic vol] 88.4 fL Normal 80.0-100.0 [facility] Comment on above: Performed By: #### L NE0496 #### LAB [address] [address] Ivan Rizvi M.D. [id number] MEAN CORPUSCULAR HEMOGLOBIN CONC 32.6 g/dL Normal 31.0-37.0 [facility] Comment on above: Performed By: #### L [id number] #### LAB [address] [address] Ivan Rizvi M.D. [id number] Monocytes (Bld) [#/Vol] 0.43 10*3/uL Normal 0.30-0.90 [facility] Comment on above: Performed By: #### L [id number] #### LAB [address] [address] Ivan Rizvi M.D. [id number] Monocytes/100 WBC (Bld) 8.8 % Normal [facility] Comment on above: Performed By: #### L [id number] #### LAB [address] [place] [address] Ivan Rizvi M.D. [id number] NEUTROPHILS ABSOLUTE COUNT 2.13 K/mcL Normal 1.70-7.00 [facility] Comment on above: Performed By: #### L [id number] #### LAB [address] [place] [address] Ivan Rizvi M.D. [id number] Neutrophils/100 WBC (Bld) 43.5 % Normal [facility] Comment on above: Performed By: #### L [id number] #### LAB [address] [place] [address] Ivan Rizvi M.D. [id number] Platelet mean volume (Bld) [Entitic vol] 9.8 fL Normal 9.4-12.4 [facility] Comment on above: Performed By: #### L QS7962 #### [facility] LAB [address] [address] Ivan Rizvi M.D. [id number] Platelets (Bld) [#/Vol] 314 10*3/uL Normal 150-400 [facility] Comment on above: Performed By: #### L [id number] #### [facility] LAB [address] [address] Ivan Rizvi M.D. [id number] RBC (Bld) [#/Vol] 4.75 10*6/uL Normal 4.00-5.20 [facility] Comment on above: Performed By: #### L [id number] #### [facility] [address] [address] Ivan Rizvi M.D. [id number] WBC (Bld) [#/Vol] 4.90 10*3/uL Normal 4.50-11.00 [facility] Comment on above: Performed By: #### L [id number] #### LAB [address] [address] Ivan Rizvi M.D. [id number] COMPREHENSIVE METABOLIC PANE Colin 05-25-2024 Albumin [Mass/Vol] 3.7 g/dL Normal 3.2-5.2 [facility] Comment on above: Order Comment: [facility] Services has implemented the eGFR calculation approach that does not have a coefficient for race that conforms to the NKF-ASN Task Force Recommendations. Performed By: #### 4 6126 #### LAB [address] [address] Ivan Rizvi M.D. [id number] ALP [Catalytic activity/Vol] 70 U/L Normal 40-140 [facility] Comment on above: Order Comment: [facility] Services has implemented the eGFR calculation approach that does not have a coefficient for race that conforms to the NKF-ASN Task Force Recommendations. Performed By: #### 4 6126 #### LAB [address] [address] Ivan Rizvi M.D. [id number] ALT [Catalytic activity/Vol] 18 U/L Normal 0-35 U/L [facility] Comment on above: Order Comment: [facility] Services has implemented the eGFR calculation approach that does not have a coefficient for race that conforms to the NKF-ASN Task Force Recommendations. Performed By: #### 4 6126 #### LAB [address] [address] Ivan Rizvi M.D. [id number] Anion gap [Moles/Vol] 15 mmol/L Normal 10-[address] [facility] Comment on above: Order Comment: [facility] Laboratory [facility] has implemented the eGFR calculation approach that does not have a coefficient for race that conforms to the NKF-ASN Task Force Recommendations. Performed By: #### 4 6126 #### LAB [address] [address] Ivan Rizvi M.D. [id number] AST [Catalytic activity/Vol] 15 U/L Normal 0-35 U/L [facility] Comment on above: Order Comment: [facility] Laboratory [facility] has implemented the eGFR calculation approach that does not have a coefficient for race that conforms to the NKF-ASN Task Force Recommendations. Performed By: #### 4 6126 #### LAB [address] [address] Ivan Rizvi M.D. [id number] Bilirubin [Mass/Vol] 0.4 mg/dL Normal 0.0-1.3 [facility] Comment on above: Order Comment: [facility] Services has implemented the eGFR calculation approach that does not have a coefficient for race that conforms to the NKF-ASN Task Force Recommendations. Performed By: #### 4 6126 #### LAB [address] [address] Ivan Rizvi M.D. [id number] Calcium [Mass/Vol] 9.1 mg/dL Normal 8.4-10.2 [facility] Comment on above: Order Comment: [facility] Services has implemented the eGFR calculation approach that does not have a coefficient for race that conforms to the NKF-ASN Task Force Recommendations. Performed By: #### 4 6126 #### LAB [address] [id number] Ivan Rizvi M.D. [id number] Chloride [Moles/Vol] 104 mmol/L Normal 98-108 [facility] Comment on above: Order Comment: [facility] Laboratory [facility] has implemented the eGFR calculation approach that does not have a coefficient for race that conforms to the NKF-ASN Task Force Recommendations. Performed By: #### 4 6126 #### LAB [address] [address] Ivan Rizvi M.D. [id number] Creatinine [Mass/Vol] 0.54 mg/dL Normal 0.40-1.[address] [facility] Comment on above: Order Comment: [facility] Laboratory [facility] has implemented the eGFR calculation approach that does not have a coefficient for race that conforms to the NKF-ASN Task Force Recommendations. Performed By: #### 4 6126 #### LAB [address] [address] Ivan Rizvi M.D. [id number] EGFR 130 mL/min/1.73 m2 Normal >=60 [facility] Comment on above: Order Comment: [facility] Laboratory [facility] has implemented the eGFR calculation approach that does not have a coefficient for race that conforms to the NKF-ASN Task Force Recommendations. Result Comment: Oskar mated GFR was calculated using the 2020 CKD-EPI creatinine equation. Performed By: #### 4 6126 #### LAB [address] [address] Ivan Rizvi M.D. [id number] Glucose [Mass/Vol] 101 mg/dL High 65-99 [facility] Comment on above: Order Comment: [facility] Laboratory [facility] has implemented the eGFR calculation approach that does not have a coefficient for race that conforms to the NKF-ASN Task Force Recommendations. Performed By: #### 4 6126 #### LAB [address] [address] Ivan Rizvi M.D. [id number] HCO3 (Bld) [Moles/Vol] 23 mmol/L Normal 21-32 [facility] Comment on above: Order Comment: [facility] Laboratory [facility] has implemented the eGFR calculation approach that does not have a coefficient for race that conforms to the NKF-ASN Task Force Recommendations. Performed By: #### 4 6126 #### LAB [address] [address] Ivan Rizvi M.D. [id number] Potassium [Moles/Vol] 4.1 mmol/L Normal 3.5-5.[address] [facility] Comment on above: Order Comment: [facility] Laboratory [facility] has implemented the eGFR calculation approach that does not have a coefficient for race that conforms to the NKF-ASN Task Force Recommendations. Performed By: #### 4 6126 #### LAB [address] [address] Ivan Rizvi M.D. [id number] Protein [Mass/Vol] 6.5 g/dL Normal 6.0-8.0 [facility] Comment on above: Order Comment: [facility] Laboratory [facility] has implemented the eGFR calculation approach that does not have a coefficient for race that conforms to the NKF-ASN Task Force Recommendations. Performed By: #### 4 6126 #### LAB [address] [address] Ivan Rizvi M.D. [id number] Sodium [Moles/Vol] 138 mmol/L Normal 135-145 [facility] Comment on above: Order Comment: [facility] Laboratory [facility] has implemented the eGFR calculation approach that does not have a coefficient for race that conforms to the NKF-ASN Task Force Recommendations. Performed By: #### 4 6126 ####[facility] LAB [address] [address] Ivan Rizvi M.D. [id number] Urea nitrogen [Mass/Vol] 8 mg/dL Normal 8-25 [facility] Comment on above: Order Comment: [facility] Laboratory [facility] has implemented the eGFR calculation approach that does not have a coefficient for race that conforms to the NKF-ASN Task Force Recommendations. Performed By: #### 4 6126 #### LAB [address] [address] Ivan Rizvi M.D. [id number] Urea nitrogen/Creatinine [Mass ratio] 14.8 mg/mg Normal 10.0-20.0 [facility] Comment on above: Order Comment: [facility] Services has implemented the eGFR calculation approach that does not have a coefficient for race that conforms to the NKF-ASN Task Force Recommendations. Performed By: #### 4 6126 #### LAB [address] [address] Ivan Rizvi M.D. [id number] CBC WITH AUTO DIFFERENTIALon 05-24-2024 AUTO NRBC 0.0 % [facility] Comment on above: Performed By: #### L [id number] #### LAB [address] [address] Ivan Rizvi M.D. [id number] AUTO NRBC ABS COUNT 0.00 K/mcL Normal 0.00-0.00 [facility] Comment on above: Performed By: #### L [id number] #### LAB [address] [address] Ivan Rizvi M.D. [id number] BASOPHILS ABSOLUTE COUNT 0.05 K/mcL Normal 0.00-0.30 [facility] Comment on above: Performed By: #### L [id number] #### LAB [address] [address] Ivan Rizvi M.D. [id number] Basophils/100 WBC (Bld) 1.0 % [facility] Comment on above: Performed By: #### L QM2382 #### LAB [address] [place] [address] Ivan Rizvi M.D. [id number] Eosinophils (Bld) [#/Vol] 0.43 10*3/uL Normal 0.00-0.50 [facility] Comment on above: Performed By: #### L [id number] #### LAB [address] [address] Ivan Rizvi M.D. [id number] Eosinophils/100 WBC (Bld) 8.8 % Normal [facility] Comment on above: Performed By: #### L ZU4043 #### LAB [address] [address] Ivan Rizvi M.D. [id number] Erythrocyte distribution width (RBC) [Ratio] 15.2 % High 11.6-14.8 [facility] Comment on above: Performed By: #### L [id number] #### LAB [address] [address] Ivan Rizvi M.D. [id number] Hematocrit (Bld) [Volume fraction] 39.6 % Normal 36.0-46.0 [facility] Comment on above: Performed By: #### L [id number] #### LAB [address] [address] Ivan Rizvi M.D. [id number] Hemoglobin (Bld) [Mass/Vol] 12.7 g/dL Normal 12.0-16.0 [facility] Comment on above: Performed By: #### L [id number] #### LAB [address] [address] Ivan Rizvi M.D. [id number] IG ABSOLUTE 0.03 K/mcL Normal 0.00-0.30 [facility] Comment on above: Performed By: #### L [id number] #### LAB [address] [address] Ivan Rizvi M.D. [id number] IG PERCENT 0.60 % Normal [facility] Comment on above: Result Comment: The IG parameter is the percentage of metamyelocytes, myelocytes and promyelocytes. An immature granulocyte count (IG) of 1% or more suggests the possibility of infection, an IG count of 3% is very likely related to an infection. Performed By: #### L [id number] #### LAB [address] [place] [address] Ivan Rizvi M.D. [id number] Lymphocytes (Bld) [#/Vol] 2.04 10*3/uL Normal 0.90-4.00 [facility] Comment on above: Performed By: #### L [id number] #### LAB [address] [address] Ivan Rizvi M.D. [id number] Lymphocytes/100 WBC (Bld) 42.0 % Normal [facility] Comment on above: Performed By: #### L [id number] #### LAB [address] [address] Ivan Rizvi M.D. [id number] MCH (RBC) [Entitic mass] 28.7 pg Normal 26.0-34.0 [facility] Comment on above: Performed By: #### L [id number] #### LAB [address] [address] Ivan Rizvi M.D. [id number] MCV (RBC) [Entitic vol] 89.4 fL Normal 80.0-100.0 [facility] Comment on above: Performed By: #### L [id number] #### LAB [address] [place] [address] Ivan Rizvi M.D. [id number] MEAN CORPUSCULAR HEMOGLOBIN CONC 32.1 g/dL Normal 31.0-37.0 [facility] Comment on above: Performed By: #### L [id number] #### LAB [address] [place] [address] Ivan Rizvi M.D. [id number] Monocytes (Bld) [#/Vol] 0.44 10*3/uL Normal 0.30-0.90 [facility] Comment on above: Performed By: #### L [id number] #### LAB [address] [place] [address] Ivan Rizvi M.D. [id number] Monocytes/100 WBC (Bld) 9.1 % Normal [facility] Comment on above: Performed By: #### L [id number] #### LAB [address] [address] Ivan Rizvi M.D. [id number] NEUTROPHILS ABSOLUTE COUNT 1.87 K/mcL Normal 1.70-7.00 [facility] Comment on above: Performed By: #### L [id number] #### MH LAB [address] [address] Ivan Rizvi M.D. [id number] Neutrophils/100 WBC (Bld) 38.5 % Normal [facility] Comment on above: Performed By: #### L [id number] #### MH LAB [address] [address] Ivan Rizvi M.D. [id number] Platelet mean volume (Bld) [Entitic vol] 9.6 fL Normal 9.4-12.4 [facility] Comment on above: Performed By: #### L [id number] #### MH LAB [address] [address] Ivan Rizvi M.D. [id number] Platelets (Bld) [#/Vol] 301 10*3/uL Normal 150-400 [facility] Comment on above: Performed By: #### L [id number] #### MH LAB [address] [address] Ivan Rizvi M.D. [id number] RBC (Bld) [#/Vol] 4.43 10*6/uL Normal 4.00-5.20 [facility] Comment on above: Performed By: #### L [id number] #### MH LAB [address] [address] Ivan Rizvi M.D. [id number] WBC (Bld) [#/Vol] 4.86 10*3/uL Normal 4.50-11.00 [facility] Comment on above: Performed By: #### L [id number] #### MH LAB [address] [address] Ivan Rizvi M.D. [id number] COMPREHENSIVE METABOLIC PANE Colin 05-24-2024 Albumin [Mass/Vol] 3.5 g/dL Normal 3.2-5.2 [facility] Comment on above: Order Comment: [facility] has implemented the eGFR calculation approach that does not have a coefficient for race that conforms to the NKF-ASN Task Force Recommendations. Performed By: #### 4 6126 #### LAB [address] [address] Ivan Rizvi M.D. [id number] ALP [Catalytic activity/Vol] 64 U/L Normal 40-140 [facility] Comment on above: Order Comment: [facility] has implemented the eGFR calculation approach that does not have a coefficient for race that conforms to the NKF-ASN Task Force Recommendations. Performed By: #### 4 6126 #### LAB [address] [address] Ivan Rizvi M.D. [id number] ALT [Catalytic activity/Vol] 20 U/L Normal 0-35 U/L [facility] Comment on above: Order Comment: [facility] has implemented the eGFR calculation approach that does not have a coefficient for race that conforms to the NKF-ASN Task Force Recommendations. Performed By: #### 4 6126 #### LAB [address] [address] Ivan Rizvi M.D. [id number] Anion gap [Moles/Vol] 15 mmol/L Normal 10-[address] [facility] Comment on above: Order Comment: [facility] has implemented the eGFR calculation approach that does not have a coefficient for race that conforms to the NKF-ASN Task Force Recommendations. Performed By: #### 4 6126 #### LAB [address] [address] Ivan Rizvi M.D. [id number] AST [Catalytic activity/Vol] 15 U/L Normal 0-35 U/L [facility] Comment on above: Order Comment: [facility] has implemented the eGFR calculation approach that does not have a coefficient for race that conforms to the NKF-ASN Task Force Recommendations. Performed By: #### 4 6126 #### LAB [address] [address] Ivan Rizvi M.D. [id number] Bilirubin [Mass/Vol] 0.3 mg/dL Normal 0.0-1.3 [facility] Comment on above: Order Comment: [facility] has implemented the eGFR calculation approach that does not have a coefficient for race that conforms to the NKF-ASN Task Force Recommendations. Performed By: #### 4 6126 #### LAB [address] [address] Ivan Rizvi M.D. [id number] Calcium [Mass/Vol] 8.9 mg/dL Normal 8.4-10.2 [facility] Comment on above: Order Comment: [facility] has implemented the eGFR calculation approach that does not have a coefficient for race that conforms to the NKF-ASN Task Force Recommendations. Performed By: #### 4 6126 #### LAB [address] [address] Ivan Rizvi M.D. [id number] Chloride [Moles/Vol] 107 mmol/L Normal 98-108 [facility] Comment on above: Order Comment: [facility] has implemented the eGFR calculation approach that does not have a coefficient for race that conforms to the NKF-ASN Task Force Recommendations. Performed By: #### 4 6126 #### LAB [address] [address] Ivan Rizvi M.D. [id number] Creatinine [Mass/Vol] 0.54 mg/dL Normal 0.40-1.[address] [facility] Comment on above: Order Comment: [facility] has implemented the eGFR calculation approach that does not have a coefficient for race that conforms to the NKF-ASN Task Force Recommendations. Performed By: #### 4 6134 #### LAB [address] [address] Ivan Rizvi M.D. [id number] EGFR 130 mL/min/1.73 m2 Normal >=60 [facility] Comment on above: Order Comment: [facility] has implemented the eGFR calculation approach that does not have a coefficient for race that conforms to the NKF-ASN Task Force Recommendations. Result Comment: Oskar mated GFR was calculated using the 2020 CKD-EPI creatinine equation. Performed By: #### 4 6126 #### LAB [address] [address] Ivan Rizvi M.D. [id number] Glucose [Mass/Vol] 94 mg/dL Normal 65-99 [facility] Comment on above: Order Comment: [facility] has implemented the eGFR calculation approach that does not have a coefficient for race that conforms to the NKF-ASN Task Force Recommendations. Performed By: #### 4 6126 #### LAB [address] [address] Ivan Rizvi M.D. [id number] HCO3 (Bld) [Moles/Vol] 20 mmol/L Low 21-32 [facility] Comment on above: Order Comment: [facility] has implemented the eGFR calculation approach that does not have a coefficient for race that conforms to the NKF-ASN Task Force Recommendations. Performed By: #### 4 6126 #### LAB [address] [address] Ivan Rizvi M.D. [id number] Potassium [Moles/Vol] 4.4 mmol/L Normal 3.5-5.[address] [facility] Comment on above: Order Comment: [facility] has implemented the eGFR calculation approach that does not have a coefficient for race that conforms to the NKF-ASN Task Force Recommendations. Performed By: #### 4 6126 #### LAB [address] [address] Ivan Rizvi M.D. [id number] Protein [Mass/Vol] 6.1 g/dL Normal 6.0-8.0 [facility] Comment on above: Order Comment: [facility] has implemented the eGFR calculation approach that does not have a coefficient for race that conforms to the NKF-ASN Task Force Recommendations. Performed By: #### 4 6126 #### LAB [address] [address] Ivan Rizvi M.D. [id number] Sodium [Moles/Vol] 138 mmol/L Normal 135-145 [facility] Comment on above: Order Comment: [facility] has implemented the eGFR calculation approach that does not have a coefficient for race that conforms to the NKF-ASN Task Force Recommendations. Performed By: #### 4 6126 #### LAB [address] [id number] Ivan Rizvi M.D. [id number] Urea nitrogen [Mass/Vol] 7 mg/dL Low 8-25 [facility] Comment on above: Order Comment: [facility] has implemented the eGFR calculation approach that does not have a coefficient for race that conforms to the NKF-ASN Task Force Recommendations. Performed By: #### 4 6126 #### LAB [address] [address] Ivan Rizvi M.D. [id number] Urea nitrogen/Creatinine [Mass ratio] 13.0 mg/mg Normal 10.0-20.0 [facility] Comment on above: Order Comment: [facility] has implemented the eGFR calculation approach that does not have a coefficient for race that conforms to the NKF-ASN Task Force Recommendations. Performed By: #### 4 6126 #### LAB [address] [address] Ivan Rizvi M.D. [id number] MAGNESIUM LEVELon 05-24-2024 Magnesium [Mass/Vol] 2.1 mg/dL Normal 1.6-2.4 [facility] Comment on above: Performed By: #### 4 6109 #### LAB [address] [id number] Ivan Rizvi M.D. [id number] PHOSPHORUSon 05-24-2024 Phosphate [Mass/Vol] 4.3 mg/dL Normal 2.7-4.5 [facility] Comment on above: Performed By: #### 4 6299 #### LAB [address] [address] Ivan Rizvi M.D. [id number] BLOOD CULTURE AEROBIC/ANAERO BICon 05-23-2024 BLOOD CULTURE AEROBIC/ANAEROBIC BLOOD CULTURE No Growth after [address] [facility] Comment on above: Performed By: #### 4 4014 #### LAB [address] [address] Ivan Rizvi M.D. [id number] BLOOD CULTURE AEROBIC/ANAEROBIC BLOOD CULTURE No Growth after [address] [facility] Comment on above: Performed By: #### 4 4014 #### LAB [address] [address] Ivan Rizvi M.D. [id number] CBC WITH AUTO DIFFERENTIALon 05-23-2024 AUTO NRBC 0.0 % [facility] Comment on above: Performed By: #### L [id number] #### LAB [address] [place] [address] Ivan Rizvi M.D. [id number] AUTO NRBC ABS COUNT 0.00 K/mcL Normal 0.00-0.00 [facility] Comment on above: Performed By: #### L [id number] #### LAB [address] [address] Ivan Rizvi M.D. [id number] BASOPHILS ABSOLUTE COUNT 0.05 K/mcL Normal 0.00-0.30 [facility] Comment on above: Performed By: #### L [id number] #### LAB [address] [place] [address] Ivan Rizvi M.D. [id number] Basophils/100 WBC (Bld) 0.7 % [facility] Comment on above: Performed By: #### L [id number] #### LAB [address] [place] [address] Ivan Rizvi M.D. [id number] Eosinophils (Bld) [#/Vol] 0.33 10*3/uL Normal 0.00-0.50 [facility] Comment on above: Performed By: #### L [id number] #### LAB [address] [place] [address] Ivan Rizvi M.D. [id number] Eosinophils/100 WBC (Bld) 4.8 % Normal [facility] Comment on above: Performed By: #### L [id number] #### LAB [address] [address] Ivan Rizvi M.D. [id number] Erythrocyte distribution width (RBC) [Ratio] 14.8 % Normal 11.6-14.8 [facility] Comment on above: Performed By: #### L [id number] #### LAB [address] [address] Ivan Rizvi M.D. [id number] Hematocrit (Bld) [Volume fraction] 38.3 % Normal 36.0-46.0 [facility] Comment on above: Performed By: #### L [id number] #### LAB [address] [address] Ivan Rizvi M.D. [id number] Hemoglobin (Bld) [Mass/Vol] 12.5 g/dL Normal 12.0-16.0 [facility] Comment on above: Performed By: #### L [id number] #### LAB [address] [place] [address] Ivan Rizvi M.D. [id number] IG ABSOLUTE 0.04 K/mcL Normal 0.00-0.30 [facility] Comment on above: Performed By: #### L [id number] #### LAB [address] [place] [address] Ivan Rizvi M.D. [id number] IG PERCENT 0.60 % Normal [facility] Comment on above: Result Comment: The IG parameter is the percentage of metamyelocytes, myelocytes and promyelocytes. An immature granulocyte count (IG) of 1% or more suggests the possibility of infection, an IG count of 3% is very likely related to an infection. Performed By: #### L [id number] #### LAB [address] [place] [address] Ivan Rizvi M.D. [id number] Lymphocytes (Bld) [#/Vol] 1.74 10*3/uL Normal 0.90-4.00 [facility] Comment on above: Performed By: #### L [id number] #### LAB [address] [address] Ivan Rizvi M.D. [id number] Lymphocytes/100 WBC (Bld) 25.5 % Normal [facility] Comment on above: Performed By: #### L [id number] #### LAB [address] [address] Ivan Rizvi M.D. [id number] MCH (RBC) [Entitic mass] 28.7 pg Normal 26.0-34.0 [facility] Comment on above: Performed By: #### L [id number] #### LAB [address] [address] Ivan Rizvi M.D. [id number] MCV (RBC) [Entitic vol] 87.8 fL Normal 80.0-100.0 [facility] Comment on above: Performed By: #### L [id number] #### LAB [address] [address] Ivan Rizvi M.D. [id number] MEAN CORPUSCULAR HEMOGLOBIN CONC 32.6 g/dL Normal 31.0-37.0 [facility] Comment on above: Performed By: #### L [id number] #### LAB [address] [address] Ivan Rizvi M.D. [id number] Monocytes (Bld) [#/Vol] 0.56 10*3/uL Normal 0.30-0.90 [facility] Comment on above: Performed By: #### L [id number] #### LAB [address] [address] Ivan Rizvi M.D. [id number] Monocytes/100 WBC (Bld) 8.2 % Normal [facility] Comment on above: Performed By: #### L [id number] #### LAB [address] [address] Ivan Rizvi M.D. [id number] NEUTROPHILS ABSOLUTE COUNT 4.10 K/mcL Normal 1.70-7.00 [facility] Comment on above: Performed By: #### L [id number] #### MH LAB [address] [address] Ivan Rizvi M.D. [id number] Neutrophils/100 WBC (Bld) 60.2 % Normal [facility] Comment on above: Performed By: #### L [id number] #### MH LAB [address] [address] Ivan Rizvi M.D. [id number] Platelet mean volume (Bld) [Entitic vol] 9.5 fL Normal 9.4-12.4 [facility] Comment on above: Performed By: #### L [id number] #### MH LAB [address] [address] Ivan Rizvi M.D. [id number] Platelets (Bld) [#/Vol] 309 10*3/uL Normal 150-400 [facility] Comment on above: Performed By: #### L [id number] #### MH LAB [address] [address] Ivan Rizvi M.D. [id number] RBC (Bld) [#/Vol] 4.36 10*6/uL Normal 4.00-5.20 [facility] Comment on above: Performed By: #### L [id number] #### MH LAB [address] [address] Ivan Rizvi M.D. [id number] WBC (Bld) [#/Vol] 6.82 10*3/uL Normal 4.50-11.00 [facility] Comment on above: Performed By: #### L [id number] #### MH LAB [address] [address] Ivan Rizvi M.D. [id number] COMPREHENSIVE METABOLIC PANE Colin 05-23-2024 Albumin [Mass/Vol] 3.6 g/dL Normal 3.2-5.2 [facility] Comment on above: Order Comment: [facility] Services has implemented the eGFR calculation approach that does not have a coefficient for race that conforms to the NKF-ASN Task Force Recommendations. Performed By: #### 4 6126 #### LAB [address] [address] Ivan Rizvi M.D. [id number] ALP [Catalytic activity/Vol] 77 U/L Normal 40-140 [facility] Comment on above: Order Comment: [facility] Services has implemented the eGFR calculation approach that does not have a coefficient for race that conforms to the NKF-ASN Task Force Recommendations. Performed By: #### 4 6126 #### LAB [address] [address] Ivan Rizvi M.D. [id number] ALT [Catalytic activity/Vol] 22 U/L Normal 0-35 U/L [facility] Comment on above: Order Comment: [facility] Services has implemented the eGFR calculation approach that does not have a coefficient for race that conforms to the NKF-ASN Task Force Recommendations. Performed By: #### 4 6126 #### LAB [address] [address] Ivan Rizvi M.D. [id number] Anion gap [Moles/Vol] 14 mmol/L Normal 10-[address] [facility] Comment on above: Order Comment: [facility] Services has implemented the eGFR calculation approach that does not have a coefficient for race that conforms to the NKF-ASN Task Force Recommendations. Performed By: #### 4 6126 #### LAB [address] [address] Ivan Rizvi M.D. [id number] AST [Catalytic activity/Vol] 19 U/L Normal 0-35 U/L [facility] Comment on above: Order Comment: [facility] Services has implemented the eGFR calculation approach that does not have a coefficient for race that conforms to the NKF-ASN Task Force Recommendations. Performed By: #### 4 6126 #### LAB [address] [address] Ivan Rizvi M.D. [id number] Bilirubin [Mass/Vol] 0.3 mg/dL Normal 0.0-1.3 [facility] Comment on above: Order Comment: [facility] has implemented the eGFR calculation approach that does not have a coefficient for race that conforms to the NKF-ASN Task Force Recommendations. Performed By: #### 4 6126 #### LAB [address] [place], [place] [address] Ivan Rizvi M.D. [id number] Calcium [Mass/Vol] 8.8 mg/dL Normal 8.4-10.2 [facility] Comment on above: Order Comment: [facility] has implemented the eGFR calculation approach that does not have a coefficient for race that conforms to the NKF-ASN Task Force Recommendations. Performed By: #### 4 6126 #### LAB [address] [id number] Ivan Rizvi M.D. [id number] Chloride [Moles/Vol] 108 mmol/L Normal 98-108 [facility] Comment on above: Order Comment: [facility] has implemented the eGFR calculation approach that does not have a coefficient for race that conforms to the NKF-ASN Task Force Recommendations. Performed By: #### 4 6126 #### LAB [address] [place], [place] [address] Ivan Rizvi M.D. [id number] Creatinine [Mass/Vol] 0.45 mg/dL Normal 0.40-1.[address] [facility] Comment on above: Order Comment: [facility] has implemented the eGFR calculation approach that does not have a coefficient for race that conforms to the NKF-ASN Task Force Recommendations. Performed By: #### 4 6126 #### LAB [address] [place], [place] [address] Ivan Rizvi M.D. [id number] EGFR 135 mL/min/1.73 m2 Normal >=60 [facility] Comment on above: Order Comment: [facility] has implemented the eGFR calculation approach that does not have a coefficient for race that conforms to the NKF-ASN Task Force Recommendations. Result Comment: Oskar mated GFR was calculated using the 2020 CKD-EPI creatinine equation. Performed By: #### 4 6126 #### LAB [address] [id number] Ivan Rizvi M.D. [id number] Glucose [Mass/Vol] 102 mg/dL High 65-99 [facility] Comment on above: Order Comment: [facility] has implemented the eGFR calculation approach that does not have a coefficient for race that conforms to the NKF-ASN Task Force Recommendations. Performed By: #### 4 6126 #### LAB [address] [address] Ivan Rizvi M.D. [id number] HCO3 (Bld) [Moles/Vol] 21 mmol/L Normal 21-32 [facility] Comment on above: Order Comment: [facility] has implemented the eGFR calculation approach that does not have a coefficient for race that conforms to the NKF-ASN Task Force Recommendations. Performed By: #### 4 6126 #### LAB [address] [address] Ivan Rizvi M.D. [id number] Potassium [Moles/Vol] 3.8 mmol/L Normal 3.5-5.[address] [facility] Comment on above: Order Comment: [facility] has implemented the eGFR calculation approach that does not have a coefficient for race that conforms to the NKF-ASN Task Force Recommendations. Performed By: #### 4 6126 #### LAB [address] [address] Ivan Rizvi M.D. [id number] Protein [Mass/Vol] 6.3 g/dL Normal 6.0-8.0 [facility] Comment on above: Order Comment: [facility] has implemented the eGFR calculation approach that does not have a coefficient for race that conforms to the NKF-ASN Task Force Recommendations. Performed By: #### 4 6126 ####MH LAB [address] [address] Ivan Rizvi M.D. [id number] Sodium [Moles/Vol] 139 mmol/L Normal 135-145 [facility] Comment on above: Order Comment: [facility] has implemented the eGFR calculation approach that does not have a coefficient for race that conforms to the NKF-ASN Task Force Recommendations. Performed By: #### 4 6126 #### LAB [address] [place], [place] [address] Ivan Rizvi M.D. [id number] Urea nitrogen [Mass/Vol] 5 mg/dL Low 8-25 [facility] Comment on above: Order Comment: [facility] has implemented the eGFR calculation approach that does not have a coefficient for race that conforms to the NKF-ASN Task Force Recommendations. Performed By: #### 4 6126 #### LAB [address] [place], [place] [address] Ivan Rizvi M.D. [id number] Urea nitrogen/Creatinine [Mass ratio] 11.1 mg/mg Normal 10.0-20.0 [facility] Comment on above: Order Comment: [facility] has implemented the eGFR calculation approach that does not have a coefficient for race that conforms to the NKF-ASN Task Force Recommendations. Performed By: #### 4 6126 #### LAB [address] [place], [place] [address] Ivan Rizvi M.D. [id number] CT Chest W contrast IV and C T angiogram Pulmonary arteries for pulmonary embolus W contrast Jeevan 05-23-2024 No acute pulmonary embolus to the segmental level. Patchy right basilar airspace opacity most compatible with pneumonia. MACRO: None. Signed by: Roberto Ortiz 05/23/2024 1:56 AM Dictation workstation: [id number] [facility] Interpreted By: Roberto Ortiz, STUDY: CT ANGIO CHEST FOR PULMONARY EMBOLISM; 05/23/2024 1:48 am INDICATION: Signs/Symptoms:pain. COMPARISON: Chest radiograph 05/22/2024 ACCESSION NUMBER(S): [id number] ORDERING CLINICIAN: MARIELA SCHULZ TECHNIQUE: Axial CTA [...] pleural effusion. BONES: No acute osseous abnormality. [facility] Roberto Ortiz MD - 05/23/2024 Interpreted By: Roberto Ortiz, STUDY: CT ANGIO CHEST FOR PULMONARY EMBOLISM; 05/23/2024 1:48 am INDICATION: Signs/Symptoms:pain. COMPARISON: Chest radiograph 05/22/2024 ACCESSION NUMBER(S): [id number] ORDERING CLINICIAN: MARIELA SCHULZ TECHNIQUE: Axial CTA [...] Roberto Ortiz 05/23/2024 1:56 AM Dictation workstation: [id number] [facility] Work Phone: Radiology Study observation (narrative) [facility] Work Phone: CT Chest W contrast IV and C T angiogram Pulmonary arteries for pulmonary embolus W contrast IVOrdered By: Roberto Ortiz on 05-23-2024 [facility] Work Phone: HCG, BLOOD, QUANTITATIVEon 1 HCG, QUANTITATIVE < Normal 0-5 [facility] Comment on above: Order Comment: Males and non females: <5 mIU/mLFemales during :3-4 weeks 9-130 mIU/mL4-5 weeks 75-2600 mIU/mL5-6 weeks 850-20,800 mIU/mL6-7 weeks 4000-100,200 mIU/mL7-12 weeks 11,500-289,000 mIU/mL12-16 weeks 18,300-137,000 mIU/mL16-29 weeks 1,400-53,000 mIU/mL29-41 weeks 940-60,000 mIU/mL Performed By: #### 4 [id number] #### [address] [place], [place] [address] Ivan Rizvi M.D. [id number] Lactateon 05-23-2024 Lactate [Moles/Vol] 2.1 mmol/L High 0.4 - 2. 0 mmol/L [facility] Lactate [Moles/Vol]on 2023 Interpretation and review of laboratory results Abnormal [facility] Venipuncture immedia tely after or during the administration of Metamizole may lead to falsely low results. Testing should be performed immediately prior to Metamizole dosing. [facility] MAGNESIUM LEVELon 05-23-2024 Magnesium [Mass/Vol] 2.1 mg/dL Normal 1.6-2.4 [facility] Comment on above: Performed By: #### 4 6109 #### [address] [place], [place] [address] Ivan Rizvi M.D. [id number] PHOSPHORUSon 05-23-2024 Phosphate [Mass/Vol] 3.5 mg/dL Normal 2.7-4.5 [facility] Comment on above: Performed By: #### 4 6299 #### [address] [place], [place] [address] Ivan Rizvi M.D. [id number] PROCALCITONINon 05-23-2024 PROCALCITONIN < Normal <0.50 [facility] Comment on above: Order Comment: Resul ts <0.50 ng/ml represent a low risk of severe sepsis and/or septic shock. Performed By: #### 4 7652 #### LAB [address] [place] [address] Ivan Rizvi M.D. [id number] RESPIRATORY PCR PANELon 05-09 RESPIRATORY PCR PANEL [...] SARS-COV-2 (BIOFIRE) Not Detected Normal Not Detected [facility] Comment on above: Performed By: #### L [id number] #### [facility] [address] [place] [address] Keyshawn Monzon M.D. [id number] S.PNEUMONIAE URINE ANTIGENon 05-23-2024 S.PNEUMONIAE URINE ANTIGEN STREP PNEUMONIAE ANTIGEN, URINE Presumptive Negative for Pneumococcal pneumoniae A negative result suggests no current or recent pneumococcal infection. A negative result does not rule out Streptococcus pneumoniae infection since the antigen present in the sample may be below the detection limit of the test. Normal [facility] Comment on above: Performed By: #### 4 7222 #### LAB [address] [place] [address] Ivan Rizvi M.D. [id number] URINALYSISon 05-23-2024 BACTERIA, URINE None Seen Normal None Seen [facility] Comment on above: Order Comment: Micro scopic examination is performed on all urinalysis samples and only positive findings are reported. The test for blood on the chemical analytic portion of urinalysis may also be positive due to hemoglobinuria and myoglobinuria and if red blood cells are present they are quantified by microscopic examination. Performed By: #### 4 [id number] #### [facility] [address] [place] [address] Ivan Rizvi M.D. [id number] BILIRUBIN, URINE Negative Normal Negative [facility] Comment on above: Order Comment: Micro scopic examination is performed on all urinalysis samples and only positive findings are reported. The test for blood on the chemical analytic portion of urinalysis may also be positive due to hemoglobinuria and myoglobinuria and if red blood cells are present they are quantified by microscopic examination. Performed By: #### 4 6625 #### [facility] [address] [place] [address] Ivan Rizvi M.D. [id number] BLOOD, URINE Small Abnormal Negative [facility] Comment on above: Order Comment: Micro scopic examination is performed on all urinalysis samples and only positive findings are reported. The test for blood on the chemical analytic portion of urinalysis may also be positive due to hemoglobinuria and myoglobinuria and if red blood cells are present they are quantified by microscopic examination. Performed By: #### 4 [id number] #### LAB [address] [place] [address] Ivan Rizvi M.D. [id number] Clarity (U) Clear Normal Clear [facility] Comment on above: Order Comment: Micro scopic examination is performed on all urinalysis samples and only positive findings are reported. The test for blood on the chemical analytic portion of urinalysis may also be positive due to hemoglobinuria and myoglobinuria and if red blood cells are present they are quantified by microscopic examination. Performed By: #### 4 6625 #### [facility] [address] [place] [address] Ivan Rizvi M.D. [id number] Color (U) Colorless Normal Colorless, Yellow [facility] Comment on above: Order Comment: Micro scopic examination is performed on all urinalysis samples and only positive findings are reported. The test for blood on the chemical analytic portion of urinalysis may also be positive due to hemoglobinuria and myoglobinuria and if red blood cells are present they are quantified by microscopic examination. Performed By: #### 4 6625 #### [facility] [address] [place] [address] Ivan Rizvi M.D. [id number] Glucose Ql (U) Negative Normal Negative [facility] Comment on above: Order Comment: Micro scopic examination is performed on all urinalysis samples and only positive findings are reported. The test for blood on the chemical analytic portion of urinalysis may also be positive due to hemoglobinuria and myoglobinuria and if red blood cells are present they are quantified by microscopic examination. Performed By: #### 4 6625 #### [facility] [address] [place] [address] Ivan Rizvi M.D. [id number] Ketones Ql (U) Negative Normal Negative [facility] Comment on above: Order Comment: Micro scopic examination is performed on all urinalysis samples and only positive findings are reported. The test for blood on the chemical analytic portion of urinalysis may also be positive due to hemoglobinuria and myoglobinuria and if red blood cells are present they are quantified by microscopic examination. Performed By: #### 4 6625 #### LAB [address] [place] [address] Ivan Rizvi M.D. [id number] Leukocyte esterase Test strip Ql (U) Negative Normal [facility] Comment on above: Order Comment: Micro scopic examination is performed on all urinalysis samples and only positive findings are reported. The test for blood on the chemical analytic portion of urinalysis may also be positive due to hemoglobinuria and myoglobinuria and if red blood cells are present they are quantified by microscopic examination. Performed By: #### 4 6625 #### [facility] [address] [place] [address] Ivan Rizvi M.D. [id number] MUCUS, URINE Rare Normal None Seen, Rare [facility] Comment on above: Order Comment: Micro scopic examination is performed on all urinalysis samples and only positive findings are reported. The test for blood on the chemical analytic portion of urinalysis may also be positive due to hemoglobinuria and myoglobinuria and if red blood cells are present they are quantified by microscopic examination. Performed By: #### 4 6625 #### [facility] [address] [place] [address] Ivan Rizvi M.D. [id number] NITRITE, URINE Negative Normal [facility] Comment on above: Order Comment: Micro scopic examination is performed on all urinalysis samples and only positive findings are reported. The test for blood on the chemical analytic portion of urinalysis may also be positive due to hemoglobinuria and myoglobinuria and if red blood cells are present they are quantified by microscopic examination. Performed By: #### 4 6625 #### LAB [address] [place] [address] Ivan Rizvi M.D. [id number] pH (U) 6.5 [pH] Normal 5.0-7.0 [facility] Comment on above: Order Comment: Micro scopic examination is performed on all urinalysis samples and only positive findings are reported. The test for blood on the chemical analytic portion of urinalysis may also be positive due to hemoglobinuria and myoglobinuria and if red blood cells are present they are quantified by microscopic examination. Performed By: #### 4 6625 #### LAB [address] [place] [address] Ivan Rizvi M.D. [id number] PROTEIN, URINE Negative Normal Negative [facility] Comment on above: Order Comment: Micro scopic examination is performed on all urinalysis samples and only positive findings are reported. The test for blood on the chemical analytic portion of urinalysis may also be positive due to hemoglobinuria and myoglobinuria and if red blood cells are present they are quantified by microscopic examination. Performed By: #### 4 6625 #### LAB [address] [place] [address] Ivan Rizvi M.D. [id number] RBC LM.HPF (Urine sed) [#/Area] 1 /[HPF] Normal 0-3 [facility] Comment on above: Order Comment: Micro scopic examination is performed on all urinalysis samples and only positive findings are reported. The test for blood on the chemical analytic portion of urinalysis may also be positive due to hemoglobinuria and myoglobinuria and if red blood cells are present they are quantified by microscopic examination. Performed By: #### 4 6625 #### LAB [address] [place] [address] Ivan Rizvi M.D. [id number] Specific gravity (U) [Rel density] 1.011 Normal 1.005-1.025 [facility] Comment on above: Order Comment: Micro scopic examination is performed on all urinalysis samples and only positive findings are reported. The test for blood on the chemical analytic portion of urinalysis may also be positive due to hemoglobinuria and myoglobinuria and if red blood cells are present they are quantified by microscopic examination. Performed By: #### 4 6625 #### LAB [address] [place] [address] Ivan Rizvi M.D. [id number] SQUAMOUS EPITHELIAL 2 /hpf Normal 0-4 [facility] Comment on above: Order Comment: Micro scopic examination is performed on all urinalysis samples and only positive findings are reported. The test for blood on the chemical analytic portion of urinalysis may also be positive due to hemoglobinuria and myoglobinuria and if red blood cells are present they are quantified by microscopic examination. Performed By: #### 4 6625 #### LAB [address] [place] [address] Ivan Rizvi M.D. [id number] UROBILINOGEN, URINE <2.0 Normal <2.0 [facility] Comment on above: Order Comment: Micro scopic examination is performed on all urinalysis samples and only positive findings are reported. The test for blood on the chemical analytic portion of urinalysis may also be positive due to hemoglobinuria and myoglobinuria and if red blood cells are present they are quantified by microscopic examination. Performed By: #### 4 [id number] #### LAB [address] [place] [address] Ivan Rizvi M.D. [id number] WBC LM.HPF (Urine sed) [#/Area] 1 /[HPF] Normal 0-5 [facility] Comment on above: Order Comment: Micro scopic examination is performed on all urinalysis samples and only positive findings are reported. The test for blood on the chemical analytic portion of urinalysis may also be positive due to hemoglobinuria and myoglobinuria and if red blood cells are present they are quantified by microscopic examination. Performed By: #### 4 6635 ####[place] [address] [address] [place], [place] [address] Ivan Rizvi M.D. [id number] CBC W Auto Differential pane l (Bld)on 05-22-2024 Basophils (Bld) [#/Vol] 0.05 10*3/uL [facility] Basophils/100 WBC (Bld) 0.5 % 0.0 - 2.0 % [facility] Eosinophils (Bld) [#/Vol] 0.10 10*3/uL [facility] Eosinophils/100 WBC (Bld) 1.0 % 0.0 - 6.0 % [facility] Erythrocyte distribution width (RBC) [Ratio] 14.3 % 11.5 - 14.5 % [facility] Hematocrit (Bld) [Volume fraction] 40.4 % 36.0 - 46.0 % [facility] Hemoglobin (Bld) [Mass/Vol] 13.3 g/dL 12.0 - 16.0 g/dL [facility] Immature granulocytes (Bld) [#/Vol] 0.05 10*3/uL [facility] Immature granulocytes/100 WBC (Bld) 0.5 % 0.0 - 0.9 % [facility] Comment on above: Immature Granulocyte Count (IG) includes promyelocytes, myelocytes and metamyelocytes but does not include bands. Percent differential counts (%) should be interpreted in the context of the absolute cell counts (cells/UL). Interpretation and review of laboratory results Abnormal [facility] Lymphocytes (Bld) [#/Vol] 1.46 10*3/uL [facility] Lymphocytes/100 WBC (Bld) 14.0 % 13.0 - 44.0 % [facility] MCH (RBC) [Entitic mass] 29.2 pg 26.0 - 34.0 pg [facility] MCHC (RBC) [Mass/Vol] 32.9 g/dL 32.0 - 36.0 g/dL [facility] MCV (RBC) [Entitic vol] 89 fL 80 - 100 fL [facility] Monocytes (Bld) [#/Vol] 0.37 10*3/uL [facility] Monocytes/100 WBC (Bld) 3.6 % 2.0 - 10.0 % [facility] Neutrophils (Bld) [#/Vol] 8.39 10*3/uL High [facility] Comment on above: Percent differential counts (%) should be interpreted in the context of the absolute cell counts (cells/uL). Neutrophils/100 WBC (Bld) 80.4 % 40.0 - 80.0 % [facility] Nucleated RBC/100 WBC (Bld) [Ratio] 0.0 % [facility] Platelets (Bld) [#/Vol] 362 10*3/uL [facility] RBC (Bld) [#/Vol] 4.55 10*6/uL [facility] WBC (Bld) [#/Vol] 10.4 10*3/uL [facility] Comprehensive metabolic 2000 panelon 05-22-2024 Albumin BCP dye [Mass/Vol] 3.8 g/dL 3.4 - 5.0 g/dL [facility] ALP [Catalytic activity/Vol] 61 U/L 33 - 110 U/L [facility] ALT With P-5'-P [Catalytic activity/Vol] 26 U/L 7 - 45 U/L [facility] Comment on above: Patients treated wit h Sulfasalazine may generate falsely decreased results for ALT. Anion gap [Moles/Vol] 13 mmol/L 10 - 2 0 mmol/L [facility] AST With P-5'-P [Catalytic activity/Vol] 15 U/L 9 - 39 U/L [facility] Bilirubin [Mass/Vol] 0.4 mg/dL 0.0 - 1 .2 mg/dL [facility] Calcium [Mass/Vol] 8.7 mg/dL 8.6 - 10. 3 mg/dL [facility] Chloride [Moles/Vol] 104 mmol/L 98 - 10 7 mmol/L [facility] CO2 [Moles/Vol] 25 mmol/L 21 - 32 mmol/L [facility] Creatinine [Mass/Vol] 0.56 mg/dL 0.50 - 1.05 mg/dL [facility] eGFR - PINF [facility] Comment on above: Calculations of oskar mated GFR are performed using the 2020 CKD-EPI Study Refit equation without the race variable for the IDMS-Traceable creatinine methods. https://jasn.asnjournals.org/content//ASN.446566 4957 Glucose [Mass/Vol] 106 mg/dL High 74 - 99 mg/dL [facility] Interpretation and review of laboratory results Abnormal [facility] Potassium [Moles/Vol] 3.0 mmol/L Low 3.5 - 5.3 mmol/L [facility] Protein [Mass/Vol] 7.0 g/dL 6.4 - 8.2 g/dL [facility] Sodium [Moles/Vol] 139 mmol/L 136 - 145 mmol/L [facility] Urea nitrogen [Mass/Vol] 10 mg/dL 6 - 23 mg/dL [facility] Lactateon 05-22-2024 Lactate [Moles/Vol] 2.3 mmol/L High 0.4 - 2. 0 mmol/L [facility] Lactate [Moles/Vol]on 2023 Interpretation and review of laboratory results Abnormal [facility] Venipuncture immedia tely after or during the administration of Metamizole may lead to falsely low results. Testing should be performed immediately prior to Metamizole dosing. [facility] XR Chest 2 Viewson Mild increased perih ilar opacities suggestive of developing interstitial edema. Superimposed infection not excluded. Clinical correlation and continued short-term follow-up is advised. MACRO: None Signed by: Neva Perdomo 05/22/2024 10:31 PM Dictation workstation: [id number] Interpreted By: Neva Roger, STUDY: XR CHEST 2 VIEWS; 05/22/2024 10:00 pm INDICATION: Signs/Symptoms:pneumonia. COMPARISON: None. ACCESSION NUMBER(S): [id number] ORDERING CLINICIAN: MARIELA SCHULZ FINDINGS: CARDIOMEDIASTINAL SILHOUETTE: Cardiomediastinal silhouette is normal in size and configuration. LUNGS: Increased perihilar opacities may relate to developing interstitial edema. Superimposed infection not excluded. No consolidation, pleural effusion or pneumothorax. ABDOMEN: No remarkable upper abdominal findings. BONES: No acute osseous abnormality. [facility] Neva Perdomo MD - 05/22/2024 Interpreted By: Neva Perdomo, STUDY: XR CHEST 2 VIEWS; 05/22/2024 10:00 pm INDICATION: Signs/Symptoms:pneumonia. COMPARISON: None. ACCESSION NUMBER(S): [id number] ORDERING CLINICIAN: MARIELA SCHULZ FINDINGS: CARDIOMEDIASTINAL SILHOUETTE: [...] Neva Perdomo 05/22/2024 10:31 PM Dictation workstation: [id number] [facility] Work Phone: Radiology Study observation (narrative) [facility] Work Phone: XR Chest 2 ViewsOrdered By: Neva Perdomo on 05-22-2024 [facility] Work Phone: COVID-19, MOLECULARon 2023 SARS-CoV-2 (COVID-19) Ab IA Ql Not detected Normal Not Detected [facility] Comment on above: Result Comment: [...] on WedMay 15, 2024 12:30:53 AM EDT [facility] Comment on above: Order Comment: Injur y/Trauma or Illness?:Illness/Other How long have you had these symptoms (acute/chronic)?:Acute Reason for exam?:cough x2 weeks, elevated d-dimer Type of Exam?:Initial Additional signs and symptoms?:none ED Prov Noteon 05-14-2024 ED Prov Note ED PROVIDER NOTE [facility] NAME: Shauna Rainey AGE: 28 y.o. : 1995 VISIT DATE: 05/14/2024 CSN: [id number] PCP: Kinjal [place] MD Chief Complaint Patient [...] Range S (more content not included)... Normal [facility] POC BASIC METABOLIC PANEL - Jerardo 05-14-2024 Chloride [Moles/Vol] 102 mmol/L Normal 98-108 [facility] Comment on above: Order Comment: [facility] Services has implemented the eGFR calculation approach that does not have a coefficient for race that conforms to the NKF-ASN Task Force Recommendations. CO2 [Moles/Vol] 26 mmol/L Normal 21-32 [facility] Comment on above: Order Comment: [facility] Services has implemented the eGFR calculation approach that does not have a coefficient for race that conforms to the NKF-ASN Task Force Recommendations. Creatinine [Mass/Vol] 0.58 mg/dL Normal 0.40-1.10 [facility] Comment on above: Order Comment: [facility] Services has implemented the eGFR calculation approach that does not have a coefficient for race that conforms to the NKF-ASN Task Force Recommendations. Glucose [Mass/Vol] 156 mg/dL High 65-99 [facility] Comment on above: Order Comment: [facility] Services has implemented the eGFR calculation approach that does not have a coefficient for race that conforms to the NKF-ASN Task Force Recommendations. POC GFR 127 mL/min/1.73 m2 Normal >=60 [facility] Comment on above: Order Comment: [facility] Services has implemented the eGFR calculation approach that does not have a coefficient for race that conforms to the NKF-ASN Task Force Recommendations. Result Comment: Oskar mated GFR was calculated using the 2020 CKD-EPI creatinine equation. POC IONIZED CALCIUM 4.5 mg/dL Normal 4.5-5.3 [facility] Comment on above: Order Comment: [facility] Services has implemented the eGFR calculation approach that does not have a coefficient for race that conforms to the NKF-ASN Task Force Recommendations. Potassium [Moles/Vol] 3.0 mmol/L Low 3.5-5.1 [facility] Comment on above: Order Comment: [facility] Services has implemented the eGFR calculation approach that does not have a coefficient for race that conforms to the NKF-ASN Task Force Recommendations. Sodium [Moles/Vol] 141 mmol/L Normal 135-145 [facility] Comment on above: Order Comment: [facility] Services has implemented the eGFR calculation approach that does not have a coefficient for race that conforms to the NKF-ASN Task Force Recommendations. Urea nitrogen [Mass/Vol] 5 mg/dL Low 8-25 [facility] Comment on above: Order Comment: [facility] Services has implemented the eGFR calculation approach that does not have a coefficient for race that conforms to the NKF-ASN Task Force Recommendations. POC CBC AND DIFFERENTIALon 1 BASOPHILS ABSOLUTE COUNT 0.01 K/mcL Normal 0.00-0.30 [facility] Basophils/100 WBC (Bld) 0.1 % Normal [facility] Eosinophils (Bld) [#/Vol] 0.21 10*3/uL Normal 0.00-0.50 [facility] Eosinophils/100 WBC (Bld) 3.0 % Normal [facility] Erythrocyte distribution width (RBC) [Ratio] 13.5 % Normal 11.6-14.8 [facility] Hematocrit (Bld) [Volume fraction] 39.0 % Normal 36.0-46.0 [facility] Hemoglobin (Bld) [Mass/Vol] 13.0 g/dL Normal 12.0-16.0 [facility] IG ABSOLUTE 0.01 K/mcL Normal 0.00-0.30 [facility] IG PERCENT 0.10 % Normal [facility] Comment on above: Result Comment: The IG parameter is the percentage of metamyelocytes, myelocytes and promyelocytes. An immature granulocyte count (IG) of 1% or more suggests the possibility of infection, an IG count of 3% is very likely related to an infection. Lymphocytes (Bld) [#/Vol] 1.12 10*3/uL Normal 0.90-4.00 [facility] Lymphocytes/100 WBC (Bld) 15.8 % Normal [facility] MCH (RBC) [Entitic mass] 28.8 pg Normal 26.0-34.0 [facility] MCV (RBC) [Entitic vol] 86.3 fL Normal 80.0-100.0 [facility] MEAN CORPUSCULAR HEMOGLOBIN CONC 33.3 g/dL Normal 31.0-37.0 [facility] Monocytes (Bld) [#/Vol] 0.29 10*3/uL Low 0.30-0.90 [facility] Monocytes/100 WBC (Bld) 4.1 % Normal [facility] NEUTROPHILS ABSOLUTE COUNT 5.43 K/mcL Normal 1.70-7.00 [facility] Neutrophils/100 WBC (Bld) 76.9 % Normal [facility] Platelet mean volume (Bld) [Entitic vol] 9.1 fL Low 9.4-12.4 [facility] Platelets (Bld) [#/Vol] 283 10*3/uL Normal 150-400 [facility] RBC (Bld) [#/Vol] 4.52 10*6/uL Normal 4.00-5.20 [facility] WBC (Bld) [#/Vol] 7.07 10*3/uL Normal 4.50-11.00 [facility] POC D-DIMER [facility] POC D-DIMER 1230 ng/mL DDU High <350 [facility] Comment on above: Order [...] than 400 ng/ml. POC INFLUENZA A/B - [facility] 1 POC INFLUENZA A (FSED) Not detected Normal Not Detected [facility] POC INFLUENZA B (FSED) Not detected Normal Not Detected [facility] POC TROPONIN I [facility] 2023 POC TROPONIN I < Normal <0.05 [facility] XR CHEST PA/APon 05-14-2024 XR [...] Mild bronchial wall thickening is noted centrally. Yqlg-lg-xvhrbdif haziness is noted bilaterally suggestive of moderate pneumonitis. IMPRESSION: 1. Moderate haziness bilaterally suggestive of pneumonitis. 2. Dmzd-eh-fhsiqabt bilateral perihilar bronchitis. Workstation ID: [id number] Dictated by: RINA MURDOCK on [place] May 14, 2024 11:02:28 PM EDT Transcribed by: RINA MURDOCK on [place] May 14, 2024 11:02:28 PM EDT Finalized by: RINA MURDOCK on [place] May 14, 2024 11:02:28 PM EDT [facility] Comment on above: Order Comment: Injur y/Trauma or Illness?:Illness/Other How long have you had these symptoms (acute/chronic)?:Acute Reason for exam?:fever and cough x2 weeks History of cancer?:u Surgeries, chemotherapy, or radiation?:u Type of Exam?:Initial Additional signs and symptoms?:none LG Jt Injection/Arthrocentes is: L glenohumeralon 07-21-2021 Era Giordano CNP 07/21/2021 8:35 PM LG Jt Injection/Arthrocentesis: L glenohumeral Performed by: Era Giordano CNP Authorized by: Era Giordano CNP CPT 60451 - Large Joint Arthrocentesis: Consent given by: [...] atus: F Normal urogenital jennie present. Normal [facility] Comment on above: Performed By: #### C /UR #### [facility] [address] [place] [address] Hemoglobinon 01-18-2021 Hemoglobin (Bld) [Mass/Vol] 7.4 g/dL Low 11.7-16.0 [facility] Comment on above: Performed By: #### H EMGB #### [facility] [address] [place] [address] HemoglobinOrdered By: Drea Senior on 01-18-2021 Hemoglobin.gastrointe stinal spec 1 Ql (Stl) 7.4 g/dL Low 11.7 - 16.0 g/dL [facility] Work Phone: Interpretation and review of laboratory results Abnormal [facility] Work Phone: Test Performed by [facility], [address] [place] [address] [facility] Work Phone: [facility] Work Phone: CR Abdomen APon 01-17-2021 CR Abdomen AP [facility]: [id number]iology ACCESSION EXAM DATE/TIME PROCEDURE ORDERING PROVIDER [id number] 01/17/2021 02:10 EDT CR Abdomen AP [id number] -SURI ESTRADA CPT code 90305 Reason For Exam (CR Abdomen AP) s/p [...] bowel gas pattern. Report Dictated on Workstation: [id number] Final Dictated: 01/17/2021 2:09 am Dictating Physician: MD LEAL JONATHAN R Signed Date and Time: 01/17/2021 2:10 am Signed by: MD LEAL JONATHAN R Transcribed Date and Time: 01/17/2021 2:09 Normal [facility] Comp Metabolic Panelon 01-17 ALP [Catalytic activity/Vol] 128 U/L High 38-126 [facility] Comment on above: Performed By: #### C MP3, HEMOG #### [facility] [address] [place], [place] ALT [Catalytic activity/Vol] 11 U/L Normal 0-34 [facility] Comment on above: Result Comment: The ALT test is performed by an updated assay method. Please note that the reference intervals have been changed and are now sex specific. Performed By: #### C MP3, HEMOG #### [facility] [address] [place], [place] Calcium [Mass/Vol] 9.5 mg/dL Normal 8.4-10.4 [facility] Comment on above: Performed By: #### C MP3, HEMOG #### [facility] [address] [place], [place] Glucose [Mass/Vol] 75 mg/dL Normal 70-100 [facility] Comment on above: Performed By: #### C MP3, HEMOG #### [facility] [address] [place], [place] Protein [Mass/Vol] 6.7 g/dL Normal 6.3-8.2 [facility] Comment on above: Performed By: #### C MP3, HEMOG #### [facility] [address] [place], [place] Urea nitrogen [Mass/Vol] 10 mg/dL Normal 7-20 [facility] Comment on above: Performed By: #### C MP3, HEMOG #### [facility] [address] [place], [place] Anion gap [Moles/Vol] 5 mmol/L Normal 3-13 [facility] Comment on above: Performed By: #### C MP3, HEMOG #### [facility] [address], [place] AST [Catalytic activity/Vol] 26 U/L Normal 15-46 [facility] Comment on above: Performed By: #### C MP3, HEMOG #### [facility] [address] [place], [place] Bilirubin [Mass/Vol] 0.5 mg/dL Normal 0.2-1.3 [facility] Comment on above: Performed By: #### C MP3, HEMOG #### [facility] [address], [place] CO2 [Moles/Vol] 20 mmol/L Low 22-30 [facility] Comment on above: Performed By: #### C MP3, HEMOG #### [facility] [address] [place], [place] Creatinine [Mass/Vol] 0.40 mg/dL Low 0.52-1.25 [facility] Comment on above: Performed By: #### C MP3, HEMOG #### [facility] [address], [place] eGFR OTHER > 90.0 Normal >60 [facility] Comment on above: Result Comment: KDIG [...] Performed By: #### C MP3, HEMOG #### [facility] [address], [place] GFR/1.73 sq M.predicted among blacks MDRD (S/P/Bld) [Vol rate/Area] mL/min/{1.73_m2} Normal >60 [facility] Comment on above: Performed By: #### C MP3, HEMOG #### [facility] [address] [place] [address] Chloride [Moles/Vol] 107 mmol/L Normal 98-107 [facility] Comment on above: Performed By: #### C MP3, HEMOG #### [facility] [address] [place] [address] Potassium [Moles/Vol] 3.5 mmol/L Normal 3.5-5.1 [facility] Comment on above: Performed By: #### C MP3, HEMOG #### [address] [place] [address] Sodium [Moles/Vol] 133 mmol/L Low 135-145 [facility] Comment on above: Performed By: #### C MP3, HEMOG #### [address] [address] [place], [place] Albumin [Mass/Vol] 3.5 g/dL Normal 3.5-5.0 [facility] Comment on above: Performed By: #### C MP3, HEMOG #### [address] Culture, UrineOrdered By: Leslie Estrada on 01-17-2021 Bacteria identified Cx Nom (U) Normal urogenital jennie present. [facility] Work Phone: Test Performed by [facility], [address] [place] [address] [facility] Work Phone: [facility] Work Phone: Hemogramon 01-17-2021 Erythrocyte distribution width (RBC) [Ratio] 15.6 % High 11.5-14.5 [facility] Comment on above: Performed By: #### C MP3, HEMOG #### [facility] [address] [place], [place] Hematocrit (Bld) [Volume fraction] 32.6 % Low 35.0-47.0 [facility] Comment on above: Performed By: #### C MP3, HEMOG #### [address] [place], [place] Hemoglobin (Bld) [Mass/Vol] 10.9 g/dL Low 11.7-16.0 [facility] Comment on above: Performed By: #### C MP3, HEMOG #### [address] [place], [place] MCH (RBC) [Entitic mass] 26.7 pg Normal 26.0-34.0 [facility] Comment on above: Performed By: #### C MP3, HEMOG #### [address] [place], [place] MCHC 33.4 % Normal 32.0-36.0 [facility] Comment on above: Performed By: #### C MP3, HEMOG #### [address] [place], [place] MCV (RBC) [Entitic vol] 79.9 fL Normal 79.0-98.0 [facility] Comment on above: Performed By: #### C MP3, HEMOG #### [address] [place], [place] Platelet mean volume (Bld) [Entitic vol] 9.7 fL Normal 7.4-10.4 [facility] Comment on above: Performed By: #### C MP3, HEMOG #### [address] [place], [place] Platelets (Bld) [#/Vol] 152 10*3/uL Normal 140-440 [facility] Comment on above: Performed By: #### C MP3, HEMOG #### [address] [place], [place] RBC (Bld) [#/Vol] 4.08 10*6/uL Normal 3.80-5.20 [facility] Comment on above: Performed By: #### C MP3, HEMOG #### [address] [place] [address] WBC (Bld) [#/Vol] 8.1 10*3/uL Normal 3.6-10.7 [facility] Comment on above: Performed By: #### C MP3, HEMOG #### [facility] [address] [place] [address] TS GELon 01-17-2021 TS GEL ABO Group: A Rh, Gel: POS Antibody Screen Gel: NEG Normal [facility] Comment on above: Performed By: #### T SGL #### [facility] XR ABDOMEN (KUB) (SINGLE AP VIEW)Ordered By: uSri Estrada on 01-17-2021 Patient Name: SHAUNA RAINEY Diagnostic Radiology ACCESSION EXAM DATE/TIME PROCEDURE ORDERING PROVIDER [id number] 01/17/2021 02:10 EDT CR Abdomen AP [id number] -SURI ESTRADA CPT code 82288 Reason For Exam (CR Abdomen AP) s/p [...] Normal bowel gas pattern. Report Dictated on --- Final --- Dictated: 01/17/2021 2:09 am Dictating Physician: MD LEAL JONATHAN R Signed Date and Time: 01/17/2021 2:10 am Signed by: MD LEAL JONATHAN R Transcribed Date and Time: 01/17/2021 2:09 [facility] Work Phone: [facility] Results From [facility] - 01/17/2021 2:11 AM EDT Patient Name: SHAUNA RAINEY Diagnostic Radiology ACCESSION EXAM DATE/TIME PROCEDURE ORDERING PROVIDER [id number] 01/17/2021 02:10 EDT CR Abdomen AP [id number] -SURI ESTRADA CPT code 16735 Reason For Exam (CR Abdomen AP) s/p [...] bowel gas pattern. Report Dictated on Workstation: [employer]pt[employer] --- Final --- Dictated: 01/17/2021 2:09 am Dictating Physician: MD LEAL JONATHAN R Signed Date and Time: 01/17/2021 2:10 am Signed by: MD LEAL JONATHAN R Transcribed Date and Time: 01/17/2021 2:09 [facility] Work Phone: [phone] [facility] Work Phone: [phone] CBCOrdered By: Suri Jose ers on 01-16-2021 Hematocrit (Bld) [Volume fraction] 32.6 % Low 35.0 - 47.0 % [facility] Work Phone: [phone] Hemoglobin.gastrointe stinal spec 1 Ql (Stl) 10.9 g/dL Low 11.7 - 16.0 g/dL [facility] Work Phone: [phone] Interpretation and review of laboratory results Abnormal [facility] Work Phone: [phone] MCH (RBC) [Entitic mass] 26.7 pg 26.0 - 34.0 pg [facility] Work Phone: [phone] MCHC (RBC) [Mass/Vol] 33.4 % 32.0 - 36.0 % [facility] Work Phone: [phone] MCV (RBC) [Entitic vol] 79.9 fL 79.0 - 98.0 fL [facility] Work Phone: Platelet distribution width (Bld) [Ratio] 15.6 % High 11.5 - 14.5 % [facility] Work Phone: Platelet mean volume (Bld) [Entitic vol] 9.7 fL 7.4 - 10.4 fL [facility] Work Phone: Platelets (Bld) [#/Vol] 152 10*3/uL 140 - 440 10*3/uL [facility] Work Phone: RBC (Bld) [#/Vol] 4.08 10*6/uL 3.80 - 5.2 0 10*6/uL [facility] Work Phone: WBC (Bld) [#/Vol] 8.1 10*3/uL 3.6 - 10.7 10*3/uL [facility] Work Phone: Test Performed by [address] [address] [facility] Work Phone: [facility] Work Phone: Comprehensive Metabolic Pane lOrdered By: Suri Estrada on 01-16-2021 Albumin [Mass/Vol] 3.5 g/dL 3.5 - 5.0 g/dL [facility] Work Phone: ALP (Bld) [Catalytic activity/Vol] 128 U/L High 38 - 126 U/L [facility] Work Phone: ALT [Catalytic activity/Vol] 11 U/L 0 - 34 U/L [facility] Work Phone: Comment on above: The ALT test is perf ormed by an updated assay method. Please note that the reference intervals have been changed and are now sex specific. Anion gap [Moles/Vol] 5 mmol/L 3 - 13 mmol/L [facility] Work Phone: AST [Catalytic activity/Vol] 26 U/L 15 - 46 U/L [facility] Work Phone: Bilirubin [Mass/Vol] 0.5 mg/dL 0.2 - 1 .3 mg/dL [facility] Work Phone: [phone] Calcium [Mass/Vol] 9.5 mg/dL 8.4 - 10. 4 mg/dL [facility] Work Phone: [phone] Chloride [Moles/Vol] 107 mmol/L 98 - 10 7 mmol/L [facility] Work Phone: [phone] CO2 [Moles/Vol] 20 mmol/L Low 22 - 30 mmol/L [facility] Work Phone: [phone] Creatinine [Mass/Vol] 0.4 mg/dL Low 0.52 - 1.25 mg/dL [facility] Work Phone: [phone] EGFR IF NonAfrican Congolese >90.0 >60 mL/min [facility] Work Phone: [phone] Comment on above: KDIGO guidelines pro vide [...] fraction] 6.7 g/dL 6.3 - 8.2 g/dL [facility] Work Phone: [phone] GFR/1.73 sq M.predicted among blacks MDRD (S/P/Bld) [Vol rate/Area] mL/min/{1.73_m2} >60 mL/min [facility] Work Phone: [phone] Glucose [Mass/Vol] 75 mg/dL 70 - 100 mg/dL [facility] Work Phone: [phone] Interpretation and review of laboratory results Abnormal [facility] Work Phone: [phone] Potassium [Moles/Vol] 3.5 mmol/L 3.5 - 5.1 mmol/L [facility] Work Phone: [phone] Sodium [Moles/Vol] 133 mmol/L Low 135 - 145 mmol/L [facility] Work Phone: [phone] Urea nitrogen (BldV) [Mass/Vol] 10 mg/dL 7 - 20 mg/dL [facility] Work Phone: [phone] Test Performed by [facility] [place] [address] [facility] Work Phone: [phone] [facility] Work Phone: [phone] AND SCREENOrdered By: Vik Estrada on 01-16-2021 ABO Grouping A [facility] Work Phone: [phone] Rh Type Positive [facility] Work Phone: [phone] Test Performed by [facility] [place] [address] [facility] Work Phone: [phone] [facility] Work Phone: [phone] POC Basic Metabolic Panelon 10-27-2020 Calcium.ionized (Bld) [Mass/Vol] 4.3 mg/dL Low 4.5 - 5.3 mg/dL [facility] Chloride [Moles/Vol] 106 mmol/L 98 - 10 8 mmol/L [facility] CO2 [Moles/Vol] 20 mmol/L Low 21 - 32 mmol/L [facility] Creatinine [Mass/Vol] 0.37 mg/dL Low 0.40 - 1.10 [facility] GFR/1.73 sq M.predicted MDRD (S/P/Bld) [Vol rate/Area] 151 mL/min/{1.73_m2} >=60 mL/min/1.73 m2 [facility] Glucose [Mass/Vol] 109 mg/dL High 65 - 99 mg/dL [facility] Interpretation and review of laboratory results Abnormal [facility] Potassium [Moles/Vol] 3.7 mmol/L 3.5 - 5.1 mmol/L [facility] Sodium [Moles/Vol] 137 mmol/L 135 - 145 mmol/L [facility] Urea nitrogen [Mass/Vol] 9 mg/dL 8 - 25 mg/dL [facility] POC CBC and Differentialon 0 10-27-2020 Basophils (Bld) [#/Vol] 0.02 10*3/uL [facility] Basophils/100 WBC (Bld) 0.2 % [facility] Eosinophils (Bld) [#/Vol] 0.08 10*3/uL [facility] Eosinophils/100 WBC (Bld) 0.8 % [facility] Erythrocyte distribution width (RBC) [Entitic vol] 14.7 % 11.6 - 14.8 % [facility] Hematocrit (Bld) [Volume fraction] 40.1 % 36.0 - 46.0 % [facility] Hemoglobin (Bld) [Mass/Vol] 13.2 g/dL 12.0 - 16.0 g/dL [facility] Immature granulocytes (Bld) [#/Vol] 0.04 10*3/uL [facility] Immature granulocytes/100 WBC (Bld) 0.40 % [facility] Comment on above: The IG parameter is the percentage of metamyelocytes, myelocytes and promyelocytes. An immature granulocyte count (IG) of 1% or more suggests the possibility of infection, an IG count of 3% is very likely related to an infection. Interpretation and review of laboratory results Abnormal [facility] Lymphocytes (Bld) [#/Vol] 0.81 10*3/uL Low [facility] Lymphocytes/100 WBC (Bld) 7.6 % [facility] MCH (RBC) [Entitic mass] 29.7 pg 26.0 - 34.0 pg [facility] MCHC (RBC) [Mass/Vol] 32.9 g/dL 31.0 - 37.0 g/dL [facility] MCV (RBC) [Entitic vol] 90.1 fL 80.0 - 100.0 fL [facility] Monocytes (Bld) [#/Vol] 0.43 10*3/uL [facility] Monocytes/100 WBC (Bld) 4.1 % [facility] Neutrophils (Bld) [#/Vol] 9.23 10*3/uL High [facility] Neutrophils/100 WBC (Bld) 86.9 % [facility] Platelet mean volume (Bld) [Entitic vol] 9.5 fL 9.4 - 12.4 fL [facility] Platelets (Bld) [#/Vol] 197 10*3/uL [facility] RBC (Bld) [#/Vol] 4.45 10*6/uL [facility] ealth WBC (Bld) [#/Vol] 10.61 10*3/uL [facility] POC Liver Panel Pluson 03-21 -2021 Albumin [Mass/Vol] 3.1 g/dL Low 3.2 - 5.2 g/dL [facility] ALP [Catalytic activity/Vol] 57 U/L 40 - 140 U/L [facility] ALT [Catalytic activity/Vol] 16 U/L 0 - 40 U/L [facility] Amylase [Catalytic activity/Vol] 46 U/L 25 - 115 U/L [facility] AST [Catalytic activity/Vol] 21 U/L 0 - 45 U/L [facility] Bilirubin [Mass/Vol] 0.5 mg/dL 0.0 - 1 .3 mg/dL [facility] Gamma glutamyl transferase [Catalytic activity/Vol] 6 U/L Low 7 - 33 U/L [facility] Interpretation and review of laboratory results Abnormal [facility] Protein [Mass/Vol] 6.9 g/dL 6.0 - 8.0 g/dL [facility] C. Trachomatis, External Res ultOrdered By: Historical Provider on 07-22-2020 C. Trachomatis, External Result Negative [facility] Work Phone: [phone] GBS, External ResultOrdered By: Historical Provider on 07-22-2020 GBS, External Result Positive [facility] Work Phone: [phone] HIV, External ResultOrdered By: Historical Provider on 07-22-2020 HIV, External Result Non-Reactive [facility] Work Phone: [phone] Hepatitis B, External Result Ordered By: Historical Provider on 07-22-2020 Hep B, External Result Non-Reactive [facility] Work Phone: [phone] Hepatitis C Antibody, Stone Repairer al ResultOrdered By: Historical Provider on 07-22-2020 Hepatitis C Antibody, External Result Non-Reactive [facility] Work Phone: [phone] N. Gonorrhoeae, External Res ultOrdered By: Historical Provider on 07-22-2020 N. 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 12/01/2016_38w_5d_Male_328 9g. Family History No pertinent family history No [...] PM Vitals Vital Signs Recorded: 09Jun2019 10:10AM Tjlclyji042 Rfkwaesfr49 Height4 ft 11 in Awpwyv62.7 kg BMI Jwvkxdrwpc27.36 BSA Calculated1.59 LMPBreastfeeding Physical Exam PHYSICAL EXAMINATION: [...] oral contraceptives; SHANNA = N; Sent To: [facility] 1448 Provider Impressions checkup She will be started on Micronor for contraception. Follow up in November for her annual exam. 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 Well developed, well nourished. Head and Face: Head and face: Normal. Eyes: Normal external exam - nonicteric sclera, extraocular movements intact (EOMI) and no ptosis. Abdomen: Soft nontender; no abdominal mass palpated. Noted well-healed low Pfannenstiel scar. Midkiff were removed and Steri-Strips were applied. Psychiatric: [...] [Ratio] 16.8 % High 11.5 - 14.5 [facility] Comment on above: Performed By: #### C BC #### [address] [address] Hematocrit (Bld) [Volume fraction] 29.7 % Low 36.0 - 46.0 [facility] Comment on above: Performed By: #### C BC #### [address] [address] Hemoglobin (Bld) [Mass/Vol] 9.5 g/dL Low 12.0 - 16.0 [facility] Comment on above: Performed By: #### C BC #### [address] [address] MCHC (RBC) [Mass/Vol] 32.0 g/dL Normal 32.0 - 36.0 [facility] Comment on above: Performed By: #### C BC #### [address] [address] MCV (RBC) [Entitic vol] 82 fL Normal 80 - 100 [facility] Comment on above: Performed By: #### C BC #### [address] [address] Platelets (Bld) [#/Vol] 121 10*3/uL Low 150 - 450 [facility] Comment on above: Performed By: #### C BC #### [address] [address] RBC (Bld) [#/Vol] 3.63 x10E12/L Low 4.00 - 5.20 [facility] Comment on above: Performed By: #### C BC #### [address] [address] WBC (Bld) [#/Vol] 7.4 10*3/uL Normal 4.4 - 11.3 [facility] Comment on above: Performed By: #### C BC #### [address] [address] Daily Progress Note - OB-Pos t-partumon 05-13-2019 Daily Progress Note - OK-Gpua-tavgre Current Stage: Stage: Post- Subjective Data: Post : Ambulate: Yes Flatus: Yes Tolerate Diet: Yes Lochia: Light Objective Information: Objective Information: T PRBPSpO2 Value36.0250019/5498% Date/Time05/13 4:9/ 4:5 4:0015 4:0010/5 4:00 Range(36.6C - 36.6C ) (76 - 76 ) (16 - 16 ) (96 - 96 )/ (54 - 54 ) (98% - 98% ) Physical Exam: Constitutional: alert, oriented Respiratory/Thorax: normal respiratory effort, lungs clear, no wheezes or rhonchi Cardiovascular: S1 S2 RRR, no murmurs Gastrointestinal: NABS, Soft and nontender, the lower Pfannenstiel incision is healing well without erythema or drainage. Midkiff are in place Extremities: no calf tenderness, [...] Subjective Data, Objective Data, Assessment and Plan, Signature/Cosignature/Att estation Last Updated: 13-May-2019 06:25 by Brigid Marquez) [facility] Discharge [id number] [id number] Discharge Profile2 Discharge Orders: Anticipated Discharge Date: Anticipated Discharge [id number] Anticipated Discharge Time06:58 Problem List: Admitting Dx: Previous section: Catalog Name: History of uterine scar from previous surgery Hospital Providers: Provider RoleProvider Name AttendingBrigid Marquez Activity: activity as tolerated. May shower. May drive. Diet: Dietregular Provider FINAL REVIEW of Orders: Final Review: Final Review of Medication Reconciliation and Orders Completedby Physician Reviewing Ronald Marquez MD at 13-May-2019 07:08:21 Appointments: Coumadin (Warfarin) Follow-Up Monitoring: Physician/Dept/Chasity Marquez MD Follow-Up Appointment 01: Physician/Dept/Chasity Marquez Call to Schedule in2-3 days Locationoffice Phone [phone] CommentsCall for appointment for May 15 for staple removal Electronic Signatures: Brigid Marquez) (Signed 13-May-2019 07:08) Authored: Discharge Orders, Provider FINAL REVIEW of Orders, Appointments, Gold Form - Vehicle Window Tinter Summary Last Updated: 13-May-2019 07:08 by Brigid Marquez) [facility] TYPE + SCREENon 05-13-2019 ABO TYPE A [facility] Comment on above: Performed By: #### T +S #### [place] [address] RH TYPE Positive [facility] Comment on above: Performed By: #### T +S #### [place] [address] Hematocriton 05-12-2019 Hematocrit (Bld) [Volume fraction] 29.4 % Low 36.0-48.0 [facility] Comment on above: Performed By: #### [id number] #### [facility] Chemistry Manual Subsection [address] [place] [address] Hemoglobinon 05-12-2019 Hemoglobin (Bld) [Mass/Vol] 9.4 g/dL Low 12.0-16.0 [facility] Comment on above: Performed By: #### 2 [id number] #### [employer] [address] [place] [address] Placenta Pathology Request - NO EXAMon 05-12-2019 Placenta Pathology Request - NO EXAM Collected Normal [facility] Comment on above: Performed By: #### 6 [id number] #### ALEX Chemistry Manual Subsection [address] [place] [address] RPRon 05-12-2019 Reagin Ab RPR Ql (S) Non-Reactive Normal Non-Reactive [facility] Comment on above: Performed By: #### 6 [id number] #### ALEX Chemistry Manual Subsection [facility] [place] [address] ABO/Rh Echoon 05-09-2019 ABO/Rh E Interp... Positive Normal [facility] Comment on above: Performed By: #### 2 [id number] #### ALEX [employer]ink [address] [place] [address] Antibody Screen Cap...on Screen Interp... Negative Normal [facility] Comment on above: Performed By: #### 2 [id number] #### ALEX [employer] [address] [place] [address] Auto Diffon 05-09-2019 Basophils (Bld) [#/Vol] 0.1 E3/mcL Normal 0.0-0.2 [facility] Comment on above: Order Comment: Order Added by Discern Expert. Performed By: #### 2 [id number] #### ALEX Datalink [address] [place] [address]305 Basophils/100 WBC (Bld) 0.8 % Normal 0.0-2.0 [facility] Comment on above: Order Comment: Order Added by Discern Expert. Performed By: #### 2 [id number] #### ALEX [employer] [address] [place] [address] 73257 Eos Absolute 0.1 E3/mcL Normal 0.0-0.7 [facility] Comment on above: Order Comment: Order Added by Discern Expert. Performed By: #### 2 [id number] #### ALEX [employer] [address] [place] [address] 35514 Eosinophils/100 WBC (Bld) 1.5 % Normal 0.0-11.0 [facility] Comment on above: Order Comment: Order Added by Discern Expert. Performed By: #### 2 [id number] #### ALEX [employer] [address] [place] [address] Lymphocytes (Bld) [#/Vol] 2.2 E3/mcL Normal 1.2-3.4 [facility] Comment on above: Order Comment: Order Added by Discern Expert. Performed By: #### 2 [id number] #### ALEX [employer] [address] [place] [address] Lymphocytes/100 WBC (Bld) 33.5 % Normal 20.0-55.0 [facility] Comment on above: Order Comment: Order Added by Discern Expert. Performed By: #### 2 [id number] #### [facility] Datalink [address] [place] [address] Starr Absolute 0.5 E3/mcL Normal 0.0-0.7 [facility] Comment on above: Order Comment: Order Added by Discern Expert. Performed By: #### 2 [id number] #### [facility] Datalink [address] [place] [address] Monocytes/100 WBC (Bld) 8.2 % Normal 0.0-10.0 [facility] Comment on above: Order Comment: Order Added by Discern Expert. Performed By: #### 2 [id number] #### ALEX [employer] [address] [place] [address] Neutro Absolute 3.6 E3/mcL Normal 1.4-6.5 [facility] Comment on above: Order Comment: Order Added by Discern Expert. Performed By: #### 2 [id number] #### ALEX [employer] [address] [place] [address] Neutro Auto 56.0 % Normal 37.0-75.0 [facility] Comment on above: Order Comment: Order Added by Discern Expert. Performed By: #### 2 [id number] #### ALEX [employer] [address] [place], [place] [id number] CBC w/ Auto Diffon 9 Erythrocyte distribution width (RBC) [Ratio] 16.5 % High 11.5-14.5 [facility] Comment on above: Performed By: #### 2 [id number] #### ALEX [employer] [address] [place] [address] 95922 Hematocrit (Bld) [Volume fraction] 35.5 % Low 36.0-48.0 [facility] Comment on above: Performed By: #### 2 [id number] #### ALEX [employer] [address] [place] [address] 93348 Hemoglobin (Bld) [Mass/Vol] 11.5 g/dL Low 12.0-16.0 [facility] Comment on above: Performed By: #### 2 [id number] #### ALEX [employer] [address] [place] [address] 63708 MCH (RBC) [Entitic mass] 25.9 pg Low 27.0-31.0 [facility] Comment on above: Performed By: #### 2 [id number] #### ALEX [employer] [address] [place] [address] 30497 MCHC (RBC) [Mass/Vol] 32.3 g/dL Low 33.0-37.0 [facility] Comment on above: Performed By: #### 2 [id number] #### ALEX [employer] [address] [place] [address] 71510 MCV (RBC) [Entitic vol] 80.2 fL Normal 78.0-100.0 [facility] Comment on above: Performed By: #### 2 [id number] #### ALEX [employer] [address] [place] [address] 82843 Platelet mean volume (Bld) [Entitic vol] 8.7 fL Normal 7.4-11.0 [facility] Comment on above: Performed By: #### 2 [id number] #### ALEX [employer] [address] [place] [address] 26870 Platelets (Bld) [#/Vol] 146 E3/mcL Normal 130-400 [facility] Comment on above: Performed By: #### 2 [id number] #### ALEX [employer] [address] [place] [address] 87128 RBC (Bld) [#/Vol] 4.43 E6/mcL Normal 3.90-5.40 [facility] Comment on above: Performed By: #### 2 [id number] #### ALEX [employer] [address] [place], [place] [address] WBC (Bld) [#/Vol] 6.5 E3/mcL Normal 3.6-11.0 [facility] Comment on above: Performed By: #### 2 [id number] #### ALEX D[employer] [address] [place] [address] 71051 Group B Strep PCRon 04-21-20 19 Group B Strep PCR Negative Normal [facility] Comment on above: Order Comment: For p ositive results only; Penicillin is the recommended antibiotic for the treatment of Group B Streptococcal disease. In case of penicillin allergy, Clindamycin may be used.All Negative GBS Screens by PCR will be confirmed by culture. Performed By: #### 2 [id number] #### ALEX [employer] [address] [place] [address] 97742 Auto Diffon 02-06-2019 Basophils (Bld) [#/Vol] 0.0 E3/mcL Normal 0.0-0.2 [facility] Comment on above: Order Comment: Order Added by Discern Expert. Performed By: #### 2 [id number] #### ALEX [employer] [address] [place] [address] 62273 Basophils/100 WBC (Bld) 0.5 % Normal 0.0-2.0 [facility] Comment on above: Order Comment: Order Added by Discern Expert. Performed By: #### 2 [id number] #### ALEX [employer] [address] [place] [address] 02131 Eos Absolute 0.1 E3/mcL Normal 0.0-0.7 [facility] Comment on above: Order Comment: Order Added by Discern Expert. Performed By: #### 2 [id number] #### ALEX [employer] [address] [place] [address] 06424 Eosinophils/100 WBC (Bld) 1.5 % Normal 0.0-11.0 [facility] Comment on above: Order Comment: Order Added by Discern Expert. Performed By: #### 2 [id number] #### ALEX [employer] [address] [place] [address] 63420 Lymphocytes (Bld) [#/Vol] 2.1 E3/mcL Normal 1.2-3.4 [facility] Comment on above: Order Comment: Order Added by Discern Expert. Performed By: #### 2 [id number] #### ALEX [employer] [address] [place] [address] 80580 Lymphocytes/100 WBC (Bld) 21.7 % Normal 20.0-55.0 [facility] Comment on above: Order Comment: Order Added by Discern Expert. Performed By: #### 2 [id number] #### ALEX [employer] [address] [place] [address] 16890 Starr Absolute 0.6 E3/mcL Normal 0.0-0.7 [facility] Comment on above: Order Comment: Order Added by Discern Expert. Performed By: #### 2 [id number] #### ALEX [employer] [address] [place] [address] 64207 Monocytes/100 WBC (Bld) 6.8 % Normal 0.0-10.0 [facility] Comment on above: Order Comment: Order Added by Discern Expert. Performed By: #### 2 [id number] #### ALEX [employer] [address] [place] [address] 13754 Neutro Absolute 6.6 E3/mcL High 1.4-6.5 [facility] Comment on above: Order Comment: Order Added by Discern Expert. Performed By: #### 2 [id number] #### ALEX [employer] [address] [place] [address] Neutro Auto 69.5 % Normal 37.0-75.0 [facility] Comment on above: Order Comment: Order Added by Discern Expert. Performed By: #### 2 [id number] #### ALEX [employer] [address] [place] [address] 94149 CBC w/ Auto Diffon 9 Erythrocyte distribution width (RBC) [Ratio] 14.4 % Normal 11.5-14.5 [facility] Comment on above: Performed By: #### 2 [id number] #### ALEX [employer] [address] [place] [address] 47363 Hematocrit (Bld) [Volume fraction] 33.9 % Low 36.0-48.0 [facility] Comment on above: Performed By: #### 2 [id number] #### ALEX [employer] [address] [place] [address] 37802 Hemoglobin (Bld) [Mass/Vol] 11.3 g/dL Low 12.0-16.0 [facility] Comment on above: Performed By: #### 2 [id number] #### ALEX [employer] [address] [place] [address] 81265 MCH (RBC) [Entitic mass] 29.7 pg Normal 27.0-31.0 [facility] Comment on above: Performed By: #### 2 [id number] #### ALEX [employer] [address] [place] [address] 80036 MCHC (RBC) [Mass/Vol] 33.2 g/dL Normal 33.0-37.0 [facility] Comment on above: Performed By: #### 2 [id number] #### ALEX [employer] [address] [place] [address] 47469 MCV (RBC) [Entitic vol] 89.5 fL Normal 78.0-100.0 [facility] Comment on above: Performed By: #### 2 [id number] #### ALEX [employer] [address] [place] [address] 05725 Platelet mean volume (Bld) [Entitic vol] 7.7 fL Normal 7.4-11.0 [facility] Comment on above: Performed By: #### 2 [id number] #### ALEX [employer] [address] [place] [address] 89885 Platelets (Bld) [#/Vol] 190 E3/mcL Normal 130-400 [facility] Comment on above: Performed By: #### 2 [id number] #### ALEX [employer] [address] [place] [address] 74898 RBC (Bld) [#/Vol] 3.79 E6/mcL Low 3.90-5.40 [facility] Comment on above: Performed By: #### 2 [id number] #### ALEX [employer] [address] [place] [address] 77582 WBC (Bld) [#/Vol] 9.5 E3/mcL Normal 3.6-11.0 [facility] Comment on above: Performed By: #### 2 [id number] #### ALEX [employer] [address] [place] [address] 65421 Gest Scr Glu 1 Hron 02-07-20 19 Glucose [Mass/Vol] 112 mg/dL Normal 70-140 [facility] Comment on above: Performed By: #### 2 [id number] #### ALEX [employer] [address] [place] [address] URINALYSISon 01-04-2019 Bacteria Auto Ql (U) Rare Abnormal None Se en /hpf [facility] Bilirubin Ql (U) Negative Negative [facility] th Clarity Refractometry automated Nom (U) Hazy Abnormal Clear [facility] Color Nom (U) Yellow Colorless, Yellow [facility] Epithelial cells.squamous Auto #/area (Urine sed) 2 [facility] Glucose Automated test strip mass conc (U) Negative Negative mg/dL [facility] Hemoglobin Automated test strip Ql (U) Large Abnormal Negative [facility] Interpretation and review of laboratory results Abnormal [facility] Ketones mass conc (U) >=80 Abnormal Negati ve mg/dL [facility] Leukocyte esterase Automated test strip Ql (U) Negative Negative [facility] Mucus Auto #/area (Urine sed) Rare None Seen, Rare /lpf [facility] Nitrite Automated test strip Ql (U) Negative Negative [facility] pH (U) 5.0 [pH] [facility] Protein mass conc (U) 100 Abnormal Negati ve mg/dL [facility] RBC Auto #/area (Urine sed) >180 High [facility] Specific gravity Relative Density (U) 1.028 High [facility] Urobilinogen mass conc (U) <2.0 <2.0 mg/dL [facility] WBC Auto #/area (Urine sed) <1 [facility] Microscopic examinat ion is performed on all urinalysis samples and only positive findings are reported. The test for blood on the chemical analytic portion of urinalysis may also be positive due to hemoglobinuria and myoglobinuria and if red blood cells are present they are quantified by microscopic examination. [facility] US Renal Onlyon 01-04-2019 1. Uegv-zt-kpechhsq hydronephrosis of the left kidney; however, no apparent cause is identified. If patient has a distal left ureteral calculus would be a consideration. Other etiologies, such as mass in the distal abdomen or pelvis, could result in similar process. 2. Normal-appearing right kidney. KKV/ads Workstation ID: [id number] [facility] CLINICAL HISTORY: Le ft flank pain. EXAMINATION: [...] mass, hydronephrosis, nephrolithiasis, or perinephric fluid collections. [facility] Interface, Rad In Fu ji Speechq - 01/04/2019 8:33 [...] nephrolithiasis, or perinephric fluid collections. IMPRESSION: 1. Aztk-gf-nnmbtikj hydronephrosis of the left kidney; however, no apparent cause is identified. If patient has a distal left ureteral calculus would be a consideration. Other etiologies, such as mass in the distal abdomen or pelvis, could result in similar process. 2. Normal-appearing right kidney. [employer] Workstation ID: [id number] [facility] US After 1st Trime steron 12-26-2018 US After 1st Trimester Exam Date/Time: 12/26/2018 09:59 EDT Reason for Exam: DATES AND ANATOMY;Standard Anatomy Report STUDY: US After 1st Trimester 12/26/2018 9:59 am INDICATION: Standard Anatomy. COMPARISON: None. ACCESSION NUMBER(S): [id number] ORDERING CLINICIAN: Brigid Marquez TECHNIQUE: Routine ultrasound [...] am Signed by: Adithya Shaw MD Technologist: JACINTO Normal [facility] Auto Diffon 12-13-2018 Basophils (Bld) [#/Vol] 0.0 E3/mcL Normal 0.0-0.2 [facility] Comment on above: Order Comment: Order Added by Discern Expert. Performed By: #### 2 [id number] #### ALEX RemHemo [address] [place] [address] Basophils/100 WBC (Bld) 0.4 % Normal 0.0-2.0 [facility] Comment on above: Order Comment: Order Added by Mateus Expert. Performed By: #### 2 [id number] #### ALEX RemHemo [address] [place] [address] Eos Absolute 0.1 E3/mcL Normal 0.0-0.7 [facility] Comment on above: Order Comment: Order Added by Discern Expert. Performed By: #### 2 [id number] #### ALEX RemHemo [address] [place] [address] Eosinophils/100 WBC (Bld) 1.1 % Normal 0.0-11.0 [facility] Comment on above: Order Comment: Order Added by Discern Expert. Performed By: #### 2 [id number] #### ALEX RemHemo [address] [place] [address] Lymphocytes (Bld) [#/Vol] 1.6 E3/mcL Normal 1.2-3.4 [facility] Comment on above: Order Comment: Order Added by Discern Expert. Performed By: #### 2 568314 #### ALEX RemHemo [address] [place] [address] Lymphocytes/100 WBC (Bld) 19.5 % Low 20.0-55.0 [facility] Comment on above: Order Comment: Order Added by Discern Expert. Performed By: #### 2 [id number] #### ALEX RemHemo [address] [place] [address] Starr Absolute 0.5 E3/mcL Normal 0.0-0.7 [facility] Comment on above: Order Comment: Order Added by Discern Expert. Performed By: #### 2 [id number] #### ALEX RemHemo [address] [place] [address] Monocytes/100 WBC (Bld) 6.5 % Normal 0.0-10.0 [facility] Comment on above: Order Comment: Order Added by Discern Expert. Performed By: #### 2 816961 #### ALEX RemHemo [address] [place] [address] Neutro Absolute 5.9 E3/mcL Normal 1.4-6.5 [facility] Comment on above: Order Comment: Order Added by Discern Expert. Performed By: #### 2 110203 #### ALEX RemHemo [address] [place] [address] Neutro Auto 72.5 % Normal 37.0-75.0 [facility] Comment on above: Order Comment: Order Added by Discern Expert. Performed By: #### 2 [id number] #### ALEX RemHemo [address] [place] [address] BMPon 12-13-2018 Anion gap [Moles/Vol] 11 mmol/L Normal 10-20 [facility] Comment on above: Performed By: #### 2 [id number] #### ALEX RemHemo [address] [place] [address] Calcium [Mass/Vol] 8.7 mg/dL Normal 8.6-10.3 [facility] Comment on above: Performed By: #### 2 [id number] #### ALEX RemHemo [address] [place] [address] Chloride [Moles/Vol] 105 mmol/L Normal 98-107 [facility] Comment on above: Performed By: #### 2 [id number] #### ALEX RemHemo [address] [place] [address] CO2 [Moles/Vol] 24.0 mmol/L Normal 21.0-32.0 [facility] Comment on above: Performed By: #### 2 [id number] #### ALEX RemHemo [address] [place] [address] Creatinine [Mass/Vol] 0.4 mg/dL Low 0.5-1.1 [facility] Comment on above: Performed By: #### 2 944810 #### ALEX RemHemo [address] [place] [address] Glucose [Mass/Vol] 92 mg/dL Normal 70-99 [facility] Comment on above: Performed By: #### 2 021970 #### ALEX RemHemo [address] [place] [address] Potassium [Moles/Vol] 3.7 mmol/L Normal 3.5-5.3 [facility] Comment on above: Performed By: #### 2 863401 #### ALEX RemHemo [address] [place] [address] Sodium [Moles/Vol] 136 mmol/L Normal 136-145 [facility] Comment on above: Performed By: #### 2 907243 #### ALEX RemHemo [address] [place] [address] Urea nitrogen [Mass/Vol] 9 mg/dL Normal 6-23 [facility] Comment on above: Performed By: #### 2 093869 #### ALEX RemHemo [address] [place] [address] Urea nitrogen/Creatinine [Mass ratio] 22.5 ratio Normal 5.4-30.0 [facility] Comment on above: Performed By: #### 2 [id number] #### ALEX RemHemo [address] [place] [address] CBC w/ Auto Diffon 9 Erythrocyte distribution width (RBC) [Ratio] 14.4 % Normal 11.5-14.5 [facility] Comment on above: Performed By: #### 2 740250 #### ALEX RemHemo [address] [place] [address] Hematocrit (Bld) [Volume fraction] 37.6 % Normal 36.0-48.0 [facility] Comment on above: Performed By: #### 2 [id number] #### ALEX RemHemo [facility] [place] [address] Hemoglobin (Bld) [Mass/Vol] 12.5 g/dL Normal 12.0-16.0 [facility] Comment on above: Performed By: #### 2 402408 #### ALEX RemHemo [address] [place] [address] MCH (RBC) [Entitic mass] 30.1 pg Normal 27.0-31.0 [facility] Comment on above: Performed By: #### 2 161913 #### ALEX RemHemo [address] [place] [address] MCHC (RBC) [Mass/Vol] 33.4 g/dL Normal 33.0-37.0 [facility] Comment on above: Performed By: #### 2 629109 #### ALEX RemHemo [address] [place] [address] MCV (RBC) [Entitic vol] 90.2 fL Normal 78.0-100.0 [facility] Comment on above: Performed By: #### 2 874916 #### ALEX RemHemo [address] [place] [address] Platelet mean volume (Bld) [Entitic vol] 8.0 fL Normal 7.4-11.0 [facility] Comment on above: Performed By: #### 2 522141 #### ALEX RemHemo [address] [place] [address] Platelets (Bld) [#/Vol] 211 E3/mcL Normal 130-400 [facility] Comment on above: Performed By: #### 2 629030 #### ALEX RemHemo [address] [place] [address] RBC (Bld) [#/Vol] 4.17 E6/mcL Normal 3.90-5.40 [facility] Comment on above: Performed By: #### 2 086041 #### ALEX RemHemo [address] [place] [address] WBC (Bld) [#/Vol] 8.2 E3/mcL Normal 3.6-11.0 [facility] Comment on above: Performed By: #### 2 973244 #### ALEX RemHemo [address] [place] [address] Hep Func Panelon 12-13-2018 Albumin [Mass/Vol] 3.7 g/dL Normal 3.4-5.0 [facility] Comment on above: Performed By: #### 2 805055 #### ALEX RemHemo [address] [place] [address] Albumin/Globulin [Mass ratio] 1.5 {ratio} Normal 1.1-1.9 [facility] Comment on above: Performed By: #### 2 592195 #### ALEX RemHemo [address] [place] [address] Alk Phos 43 Int._Unit/L Normal 33-110 [facility] Comment on above: Performed By: #### 2 495758 #### ALEX RemHemo [address] [place] [address] ALT [Catalytic activity/Vol] 11 Int._Unit/L Normal 7-45 [facility] Comment on above: Performed By: #### 2 481829 #### ALEX RemHemo [address] [place] [address] AST [Catalytic activity/Vol] 12 Int._Unit/L Normal 9-39 [facility] Comment on above: Performed By: #### 2 586959 #### ALEX Timmonso [address] [place] [address] Bili Direct 0.07 mg/dL Normal 0.00-0.30 [facility] Comment on above: Performed By: #### 2 393525 #### ALEX Timmonso [facility] [place] [address] Bili Indirect 0.24 mg/dL Normal [facility] Comment on above: Result Comment: No e stablished ranges available for the indirect bilirubin Performed By: #### 2 417168 #### ALEX Timmonso [address] [place] [address] 11415 Bili Total 0.31 mg/dL Normal 0.00-1.20 [facility] Comment on above: Performed By: #### 2 161079 #### ALEX [address] [address] Globulin (S) [Mass/Vol] 3.0 g/dL Normal 2.0-4.0 [facility] Comment on above: Performed By: #### 2 142196 #### ALEX [address] [address] Protein [Mass/Vol] 6.2 g/dL Low 6.4-8.2 [facility] Comment on above: Performed By: #### 2 801634 #### ALEX Timmonso [address] [place] [address] Lipase Levelon 12-13-2018 Lipase Lvl 14 Int._Unit/L Normal 9-82 [facility] Comment on above: Performed By: #### 2 915977 #### ALEX Timmonso [address] [place] [address] UA Completeon 12-13-2018 Color (U) Yellow Normal Yellow [facility] Comment on above: Performed By: #### 2 479616 #### ALEX Timmonso [facility] [place] [address] Glucose (U) [Mass/Vol] Negative Normal Negative [facility] Comment on above: Performed By: #### 2 354719 #### ALEXLora ZepedaHemo [facility] [place] [address] Ketones Ql (U) Trace Normal [facility] Comment on above: Performed By: #### 2 285938 #### ALEX RemHemo [address] [place] [address] RBC (U) [#/Vol] /uL Abnormal 0-3 [facility] Comment on above: Performed By: #### 2 869718 #### ALEX RemHemo [address] [place] [address] UA Blood 3+ Normal Negative [facility] Comment on above: Performed By: #### 2 416831 #### ALEX RemHemo [address] [place] [address] UA Clarity Cloudy Abnormal Clear [facility] Comment on above: Performed By: #### 2 990977 #### ALEX RemHemo [address] [place] [address] UA Leuk Est Negative Normal Negative [facility] Comment on above: Performed By: #### 2 369575 #### ALEX RemHemo [address] [place] [address] UA Mucous Many Abnormal Trace [facility] Comment on above: Performed By: #### 2 298805 #### ALEX RemHemo [address] [place] [address] UA Nitrite Negative Normal Negative [facility] Comment on above: Performed By: #### 2 810509 #### ALEX RemHemo [address] [place] [address] UA pH 5.0 Normal 4.6-8.0 [facility] Comment on above: Performed By: #### 2 772690 #### ALEX RemHemo [address] [place] [address] UA Protein 2+ Abnormal Negative [facility] Comment on above: Performed By: #### 2 849365 #### ALEX RemHemo [address] [place] [address] UA Spec Grav 1.032 High 1.003-1.030 [facility] Comment on above: Performed By: #### 2 950980 #### ALEX RemHemo [address] [place] [address] UA Squam Epithelial 0-5 Normal 0-5 [facility] Comment on above: Performed By: #### 2 996355 #### ALEX ZepedaHemo [address] [place] [address] UA Urobilinogen Negative Normal [facility] Comment on above: Result Comment: Due to a manufacturing issue, low positive urobilinogen results may be fasely positive. Correlate with urine bilirubin and additional clinical/laboratory findings to assess the risk of hemolytic anemia or liver disease. If clinically indicated, repeat testing with an alternate method is available by contacting the laboratory within 24 hours. Performed By: #### 2 [id number] #### ALXE ZepedaHemo [address] [place] [address] UA WBC 0-5 Normal 0-5 [facility] Comment on above: Performed By: #### 2 [id number] #### ALEX ZepedaHemo [address] [place] [address] Urobilinogen Qn (U) Negative Normal Negative [facility] Comment on above: Performed By: #### 2 [id number] #### ALEX ZepedaHemo [facility] [place] [id number] US Renalon 12-13-2018 US Renal Exam Date/Time: 12/13/2018 16:52 EDT Reason for Exam: left flank pain;Other (please specify) Report STUDY: US Renal; 12/13/2018 4:52 pm INDICATION: Other (please specify). Patient is approximately 19 weeks . COMPARISON: None. ACCESSION NUMBER(S): [id number] ORDERING CLINICIAN: Cristofer Beebe TECHNIQUE: Multiple images [...] Signed by: Víctor Moon MD Technologist: RITO [facility] eGFRon 12-13-2018 GFR/1.73 sq M predicted among non-blacks MDRD (S/P/Bld) [Vol rate/Area] mL/min/{1.73_m2} [facility] Comment on above: Order Comment: Order Added by Discern Expert. Performed By: #### 2 [id number] #### ALEX RemHemo [address] [place] [address] C Urineon 12-02-2018 C Urine Final Report: Modera te growth of Normal skin jennie isolated Normal [facility] Comment on above: Performed By: #### 2 [id number] #### ALEX RemHemo [facility] [place] [address] IGP W/hpv Rfx [id number] 11-10 Diagnosis: See Ref Lab Report Normal [facility] Comment on above: Order Comment: Order Added by Discern Expert. Performed By: #### 2 [id number] #### ALEX RemHemo [facility] [place] [address] RPRon 11-09-2018 Reagin Ab RPR Ql (S) Non-Reactive Normal Non-Reactive [facility] Comment on above: Performed By: #### 2 [id number] #### ALEX Chemistry Manual Subsection [facility] [place] [address] C Urineon 11-04-2018 C Urine Final Report: Rare N ormal skin jennie isolated [facility] Comment on above: Performed By: #### 2 [id number] #### ALEX Microbiology Subsection [address] [place] [address] Hep Bs Agon 11-04-2018 Hep Bs Ag Negative Normal Negative [facility] Comment on above: Result Comment: Perf ormed At: CB [facility] [address] [id number] Jennifer Pina PhD Ph:[phone] Performed By: #### 2 [id number] #### ALEX Send Outs Subsection [address] [place] [address] ABO/Rh Echoon 11-02-2018 ABO/Rh E Interp... Positive Normal [facility] Comment on above: Performed By: #### 8 [id number] #### ALEX Blood Bank Subsection [address] [place] [address] Antibody Screen Cap...on Screen Interp... Negative Normal [facility] Comment on above: Performed By: #### 8 [id number] #### ALEX Blood Bank Subsection [address] [place] [address] Auto Diffon 11-02-2018 Basophils (Bld) [#/Vol] 0.1 E3/mcL Normal 0.0-0.2 [facility] Comment on above: Order Comment: Order Added by Discern Expert. Performed By: #### 2 [id number] #### ALEX RemHemo [address] [place] [address] Basophils/100 WBC (Bld) 1.3 % Normal 0.0-2.0 [facility] Comment on above: Order Comment: Order Added by Discern Expert. Performed By: #### 2 [id number] #### ALEX RemHemo [address] [place] [address] Eos Absolute 0.2 E3/mcL Normal 0.0-0.7 [facility] Comment on above: Order Comment: Order Added by Discern Expert. Performed By: #### 2 [id number] #### ALEX RemHemo [address] [place] [address] Eosinophils/100 WBC (Bld) 1.8 % Normal 0.0-11.0 [facility] Comment on above: Order Comment: Order Added by Discern Expert. Performed By: #### 2 [id number] #### ALEX RemHemo [address] [place] [address] Lymphocytes (Bld) [#/Vol] 2.1 E3/mcL Normal 1.2-3.4 [facility] Comment on above: Order Comment: Order Added by Discern Expert. Performed By: #### 2 [id number] #### ALEX RemHemo [address] [place] [address] Lymphocytes/100 WBC (Bld) 24.5 % Normal 20.0-55.0 [facility] Comment on above: Order Comment: Order Added by Discern Expert. Performed By: #### 2 [id number] #### ALEX Timmonso [address] [place] [address] Starr Absolute 0.3 E3/mcL Normal 0.0-0.7 [facility] Comment on above: Order Comment: Order Added by Discern Expert. Performed By: #### 2 [id number] #### ALEX Timmonso [address] [place], [place] [address] Monocytes/100 WBC (Bld) 3.7 % Normal 0.0-10.0 [facility] Comment on above: Order Comment: Order Added by Discern Expert. Performed By: #### 2 [id number] #### ALEX Timmonso [address] [place] [address] Neutro Absolute 5.8 E3/mcL Normal 1.4-6.5 [facility] Comment on above: Order Comment: Order Added by Discern Expert. Performed By: #### 2 [id number] #### ALEX Timmonso [address] [place] [address] Neutro Auto 68.7 % Normal 37.0-75.0 [facility] Comment on above: Order Comment: Order Added by Discern Expert. Performed By: #### 2 [id number] #### ALEX Timmonso [address] [place] [address] CBC w/ Auto Diffon 9 Erythrocyte distribution width (RBC) [Ratio] 14.5 % Normal 11.5-14.5 [facility] Comment on above: Performed By: #### 2 [id number] #### ALEX Timmonso [address] [place], [place] [address] Hematocrit (Bld) [Volume fraction] 40.8 % Normal 36.0-48.0 [facility] Comment on above: Performed By: #### 2 [id number] #### ALEX Timmonso [address] [place], [place] [address] Hemoglobin (Bld) [Mass/Vol] 13.5 g/dL Normal 12.0-16.0 [facility] Comment on above: Performed By: #### 2 [id number] #### ALEX Timmonso [address] [place] [address] MCH (RBC) [Entitic mass] 29.8 pg Normal 27.0-31.0 [facility] Comment on above: Performed By: #### 2 [id number] #### ALEX ZepedaHemo [address] [place] [address] MCHC (RBC) [Mass/Vol] 33.0 g/dL Normal 33.0-37.0 [facility] Comment on above: Performed By: #### 2 [id number] #### ALEX ZepedaHemo [facility] [place] [address] MCV (RBC) [Entitic vol] 90.1 fL Normal 78.0-100.0 [facility] Comment on above: Performed By: #### 2 [id number] #### ALEXLora Timmonso [facility] [place] [address] Platelet mean volume (Bld) [Entitic vol] 8.3 fL Normal 7.4-11.0 [facility] Comment on above: Performed By: #### 2 [id number] #### ALEX ZepedaHemo [facility] [place] [address] Platelets (Bld) [#/Vol] 227 E3/mcL Normal 130-400 [facility] Comment on above: Performed By: #### 2 [id number] #### ALEXLora ZepedaHemo [address] [place] [address] RBC (Bld) [#/Vol] 4.53 E6/mcL Normal 3.90-5.40 [facility] Comment on above: Performed By: #### 2 [id number] #### ALEX ZepedaHemo [address] [place] [address] WBC (Bld) [#/Vol] 8.4 E3/mcL Normal 3.6-11.0 [facility] Comment on above: Performed By: #### 2 [id number] #### ALEXLora ZepedaHemo [facility] [place] [address] Chlamydia GC by PCRon 2018 Chlamydia by PCR. Not Detected Normal Not Detected [facility] Comment on above: Result Comment: Xper t CT/NG Assay performance has not been evaluated in patients less than 14 years of age. Performed By: #### 3 [id number] #### ALEX Misc Micro SubSection , Gonorrhoeae by PCR Not Detected Normal Not Detected [facility] Comment on above: Result Comment: Xper t CT/NG Assay performance has not been evaluated in patients less than 14 years of age. Performed By: #### 3 [id number] #### ALEX Misc Micro SubSection , HIV-1/2 Ag/Abon 11-02-2018 HIV Combo Internal Control Line Reactive Normal Reactive [facility] Comment on above: Performed By: #### 6 [id number] #### ALEX Chemistry Manual Subsection [facility] [place] [address] HIV-1 & HIV-2 Antibodies Non-Reactive Normal Non-Reactive [facility] Comment on above: Performed By: #### 6 [id number] #### ALEX Chemistry Manual Subsection [address] [place] [address] HIV-1 p-24 Antigen Non-Reactive Normal Non-Reactive [facility] Comment on above: Performed By: #### 6 [id number] #### ALEX Chemistry Manual Subsection [facility] [place] [address] HIV-1/2 Ag/Ab Interp Negative Normal Negative [facility] Comment on above: Performed By: #### 6 [id number] #### ALEX Chemistry Manual Subsection [address] [place] [address] Rubella IgG Lvlon 11-02-2018 Rubella IgG Lvl 55.8 (POS) Normal [facility] Comment on above: Result Comment: <10I U/ml NON REACTIVE: NOT IMMUNE 10-15 IU/ml RUBELLA SPECIFIC AB PRESENT, EVALUATE FURTHER TO DETERMINE IMMUNE STATUS >15 IU/ml REACTIVE, IMMUNE Performed By: #### 2 [id number] #### ALEX [employer] [address] [place] [address] Pathology ([facility])on 10-22-2017 Pathology ([facility]) FINAL GYNECOLOGIC CYTOLOGY [id number] ADEQUACYSatisfactory for Evaluation. Endocervical cells/transformation zone componentpresent.GENERAL CATEGORIZATIONEpithelial Cell AbnormalityDESCRIPTIVE DIAGNOSISLow grade squamous intraepithelial lesion consistent with HPV effect.CLINICAL HISTORYComment: LMP: BreastFeedingSPECIMEN(A) SCREENING CERVICAL/ENDOCERVICAL LIQUID-BASED PAPPerformed at [facility], [address], [place] [address]Puhjiiet by: MONICA VELA Label Stitcher Signed Out by: DOLORES WEI MD Reported: 10/26/[address] [facility] Comment on above: Performed By: #### G YN ####[facility] [address] [place] [address] Vital Signs Date Time Vital Sign Value Performing Clinician Facility 06-19-2025 02:14-0500 Diastolic blood pressure 52 mm[Hg] Mariela Schulz DO Work Phone: [facility] 06-19-2025 02:14-0500 Heart rate 102 /min Mariela Schulz DO Work Phone: [facility] 06-19-2025 02:14-0500 Respiratory rate 16 /min Mariela Schulz DO Work Phone: [facility] 06-19-2025 02:14-0500 SaO2% (BldA) [Mass fraction] 97 % Mariela Schulz DO Work Phone: [facility] 06-19-2025 02:14-0500 Systolic blood pressure 104 mm[Hg] Mariela Schulz DO Work Phone: [facility] 06-19-2025 00:01-0500 Body temperature 98.6 [degF] Mariela Schulz DO Work Phone: [facility] 06-18-2025 21:30-0500 Body mass index (BMI) [Ratio] 33.2 kg/m2 Mariela Schulz DO Work Phone: [facility] 06-18-2025 21:30-0500 Body weight 77.11 kg Mariela Schulz DO Work Phone: [facility] 06-15-2025 13:51-0500 Diastolic blood pressure 80 mm[Hg] Ryan HYMAN Work Phone: [facility] 06-15-2025 13:51-0500 Heart rate 108 /min Ryan [place] PA Work Phone: [facility] 06-15-2025 13:51-0500 Respiratory rate 18 /min Ryan Dimas PA Work Phone: [facility] 06-15-2025 13:51-0500 SaO2% (BldA) [Mass fraction] 95 % Ryan Dimas PA Work Phone: [facility] 06-15-2025 13:51-0500 Systolic blood pressure 127 mm[Hg] Ryan Dimas PA Work Phone: [facility] 06-08-2025 14:00-0400 Body height 152.4 cm Ryan [place] PA Work Phone: [facility] 06-08-2025 14:00-0400 Body mass index (BMI) [Ratio] 33 kg/m2 Ryan [place] PA Work Phone: [facility] 06-08-2025 14:00-0400 Body temperature 100 [degF] Ryan [place] PA Work Phone: [facility] 06-08-2025 14:00-0400 Body weight 76.65 kg Ryan [place] PA Work Phone: [facility] 06-08-2025 14:00-0400 Diastolic blood pressure 67 mm[Hg] Ryan [place] PA Work Phone: [facility] 06-08-2025 14:00-0400 Heart rate 98 /min Ryan Dimas PA Work Phone: [facility] 06-08-2025 14:00-0400 Respiratory rate 17 /min Ryan [place] PA Work Phone: [facility] 06-08-2025 14:00-0400 SaO2% (BldA) [Mass fraction] 100 % Ryan [place] PA Work Phone: [facility] 06-08-2025 14:00-0400 Systolic blood pressure 91 mm[Hg] Ryan Dimas PA Work Phone: [facility] 06-07-2025 09:22-0400 Body mass index (BMI) [Ratio] 31.8 kg/m2 Ryan [place] PA Work Phone: [facility] 06-07-2025 09:22-0400 Body temperature 97.9 [degF] Ryan Dimas PA Work Phone: [facility] 06-07-2025 09:22-0400 Body weight 73.93 kg Ryan [place] PA Work Phone: [facility] 06-07-2025 09:22-0400 Diastolic blood pressure 66 mm[Hg] Ryan [place] PA Work Phone: [facility] 06-07-2025 09:22-0400 Heart rate 107 /min Ryan [place] PA Work Phone: [facility] 06-07-2025 09:22-0400 Respiratory rate 14 /min Ryan Dimas PA Work Phone: [facility] 06-07-2025 09:22-0400 SaO2% (BldA) [Mass fraction] 98 % Ryan [place] PA Work Phone: [facility] 06-07-2025 09:22-0400 Systolic blood pressure 91 mm[Hg] Ryan [place] PA Work Phone: [facility] 05-30-2025 12:45-0400 Body temperature 96.3 [degF] Ryan Dimas PA Work Phone: [facility] 05-30-2025 12:45-0400 Diastolic blood pressure 60 mm[Hg] Ryan [place] PA Work Phone: [facility] 05-30-2025 12:45-0400 Heart rate 106 /min Rayn Dimas PA Work Phone: [facility] 05-30-2025 12:45-0400 Respiratory rate 16 /min Ryan Dimas PA Work Phone: [facility] 05-30-2025 12:45-0400 SaO2% (BldA) [Mass fraction] 97 % Ryan [place] PA Work Phone: [facility] 05-30-2025 12:45-0400 Systolic blood pressure 109 mm[Hg] Ryan [place] PA Work Phone: [facility] 05-30-2025 09:13-0400 Body mass index (BMI) [Ratio] 33 kg/m2 Ryan [place] PA Work Phone: [facility] 05-30-2025 09:13-0400 Body temperature 97.8 [degF] Ryan Dimas PA Work Phone: [facility] 05-30-2025 09:13-0400 Body weight 76.71 kg Ryan Dimas PA Work Phone: [facility] 05-30-2025 09:13-0400 Diastolic blood pressure 76 mm[Hg] Ryan Dimas PA Work Phone: [facility] 05-30-2025 09:13-0400 Heart rate 112 /min Ryan [place] PA Work Phone: [facility] 05-30-2025 09:13-0400 Respiratory rate 16 /min Ryan [place] PA Work Phone: [facility] 05-30-2025 09:13-0400 SaO2% (BldA) [Mass fraction] 95 % Ryan [place] PA Work Phone: [facility] 05-30-2025 09:13-0400 Systolic blood pressure 111 mm[Hg] Ryan [place] PA Work Phone: [facility] 05-09-2025 16:18-0400 Body temperature 97.5 [degF] Ryan [place] PA Work Phone: [facility] 05-09-2025 16:18-0400 Diastolic blood pressure 52 mm[Hg] Ryan [place] PA Work Phone: [facility] 05-09-2025 16:18-0400 Heart rate 98 /min Ryan [place] PA Work Phone: [facility] 05-09-2025 16:18-0400 Respiratory rate 16 /min Ryan Dimas PA Work Phone: [facility] 05-09-2025 16:18-0400 Systolic blood pressure 100 mm[Hg] Ryan [place] PA Work Phone: [facility] 05-09-2025 08:43-0400 Body height 152.4 cm Ryan Dimas PA Work Phone: [facility] 05-09-2025 08:43-0400 Body mass index (BMI) [Ratio] 32.4 kg/m2 Ryan Dimas PA Work Phone: [facility] 05-09-2025 08:43-0400 Body temperature 98.5 [degF] Ryan [place] PA Work Phone: [facility] 05-09-2025 08:43-0400 Body weight 75.4 kg Ryan [place] PA Work Phone: [facility] 05-09-2025 08:43-0400 Diastolic blood pressure 73 mm[Hg] Ryan [place] PA Work Phone: [facility] 05-09-2025 08:43-0400 Heart rate 81 /min Ryan Dimas PA Work Phone: [facility] 05-09-2025 08:43-0400 Respiratory rate 16 /min Ryan Dimas PA Work Phone: [facility] 05-09-2025 08:43-0400 SaO2% (BldA) [Mass fraction] 99 % Ryan [place] PA Work Phone: [facility] 05-09-2025 08:43-0400 Systolic blood pressure 105 mm[Hg] Ryan Dimas PA Work Phone: [facility] 04-26-2025 09:01-0400 Body mass index (BMI) [Ratio] 32.5 kg/m2 Ryan Dimas PA Work Phone: [facility] 04-26-2025 09:00-0400 SaO2% (BldA) [Mass fraction] 100 % Ryan [place] PA Work Phone: [facility] 04-18-2025 09:20-0400 Body height 152.4 cm Ryan Dimas PA Work Phone: [facility] 04-18-2025 09:20-0400 Body mass index (BMI) [Ratio] 32.6 kg/m2 Ryan Dimas PA Work Phone: [facility] 04-18-2025 09:20-0400 Body temperature 98.3 [degF] Ryan [place] PA Work Phone: [facility] 04-18-2025 09:20-0400 Body weight 75.86 kg Ryan [place] PA Work Phone: [facility] 04-18-2025 09:20-0400 Diastolic blood pressure 80 mm[Hg] Ryan [place] PA Work Phone: [facility] 04-18-2025 09:20-0400 Heart rate 88 /min Ryan [place] PA Work Phone: [facility] 04-18-2025 09:20-0400 Respiratory rate 18 /min Ryan Dimas PA Work Phone: [facility] 04-18-2025 09:20-0400 SaO2% (BldA) [Mass fraction] 96 % Ryan [place] PA Work Phone: [facility] 04-18-2025 09:20-0400 Systolic blood pressure 123 mm[Hg] Ryan [place] PA Work Phone: [facility] 03-29-2025 12:21-0400 Body temperature 97.2 [degF] Ryan Dimas PA Work Phone: [facility] 03-29-2025 12:21-0400 Diastolic blood pressure 64 mm[Hg] Ryan Dimas PA Work Phone: [facility] 03-29-2025 12:21-0400 Heart rate 80 /min Ryan [place] PA Work Phone: [facility] 03-29-2025 12:21-0400 Respiratory rate 16 /min Ryan [place] PA Work Phone: [facility] 03-29-2025 12:21-0400 SaO2% (BldA) [Mass fraction] 97 % Ryan Dimas PA Work Phone: [facility] 03-29-2025 12:21-0400 Systolic blood pressure 104 mm[Hg] Ryan [place] PA Work Phone: [facility] 03-29-2025 09:07-0400 Body height 152.4 cm Ryan Dimas PA Work Phone: [facility] 03-29-2025 09:07-0400 Body mass index (BMI) [Ratio] 32 kg/m2 Ryan Dimas PA Work Phone: [facility] 03-29-2025 09:07-0400 Body temperature 98.5 [degF] Ryan [place] PA Work Phone: [facility] 03-29-2025 09:07-0400 Body weight 74.44 kg Ryan Dimas PA Work Phone: [facility] 03-29-2025 09:07-0400 Diastolic blood pressure 70 mm[Hg] Ryan [place] PA Work Phone: [facility] 03-29-2025 09:07-0400 Heart rate 86 /min Ryan Dimas PA Work Phone: [facility] 03-29-2025 09:07-0400 Respiratory rate 18 /min Ryan [place] PA Work Phone: [facility] 03-29-2025 09:07-0400 SaO2% (BldA) [Mass fraction] 95 % Ryan [place] PA Work Phone: [facility] 03-29-2025 09:07-0400 Systolic blood pressure 103 mm[Hg] Ryan Dimas PA Work Phone: [facility] 03-20-2025 15:48-0400 Body height 152.4 cm Ryan [place] PA Work Phone: [facility] 03-20-2025 15:48-0400 Body mass index (BMI) [Ratio] 31.8 kg/m2 Ryan Dimas PA Work Phone: [facility] 03-20-2025 15:48-0400 Body temperature 98.7 [degF] Ryan [place] PA Work Phone: [facility] 03-20-2025 15:48-0400 Body weight 73.93 kg Ryan Dimas PA Work Phone: [facility] 03-20-2025 15:48-0400 Diastolic blood pressure 66 mm[Hg] Ryan [place] PA Work Phone: [facility] 03-20-2025 15:48-0400 Heart rate 65 /min Ryan Dimas PA Work Phone: [facility] 03-20-2025 15:48-0400 Respiratory rate 18 /min Ryan [place] PA Work Phone: [facility] 03-20-2025 15:48-0400 SaO2% (BldA) [Mass fraction] 98 % Ryan Dimas PA Work Phone: [facility] 03-20-2025 15:48-0400 Systolic blood pressure 93 mm[Hg] Ryan [place] PA Work Phone: [facility] 03-13-2025 14:41-0400 Body height 152.4 cm Ryan [place] PA-C Work Phone: [facility] 03-13-2025 14:41-0400 Body mass index (BMI) [Ratio] 30.62 kg/m2 Ryan Dimas PA-C Work Phone: [facility] 03-13-2025 14:41-0400 Body weight 71.12 kg Ryan Dimas PA-C Work Phone: [facility] 03-13-2025 14:41-0400 Diastolic blood pressure 77 mm[Hg] Ryan Dimas PA-C Work Phone: [facility] 03-13-2025 14:41-0400 Heart rate 73 /min Ryan [place] PA-C Work Phone: [facility] 03-13-2025 14:41-0400 Systolic blood pressure 114 mm[Hg] Ryan [place] PA-C Work Phone: [facility] 03-07-2025 13:54-0400 Body temperature 97.4 [degF] Ryan [place] PA Work Phone: [facility] 03-07-2025 13:54-0400 Diastolic blood pressure 58 mm[Hg] Ryan [place] PA Work Phone: [facility] 03-07-2025 13:54-0400 Heart rate 110 /min Ryan [place] PA Work Phone: [facility] 03-07-2025 13:54-0400 Respiratory rate 16 /min Ryan Dimas PA Work Phone: [facility] 03-07-2025 13:54-0400 Systolic blood pressure 103 mm[Hg] Ryan Dimas PA Work Phone: [facility] 03-07-2025 08:09-0400 SaO2% (BldA) [Mass fraction] 98 % Ryan [place] PA Work Phone: [facility] 03-07-2025 08:03-0400 Body mass index (BMI) [Ratio] 31.3 kg/m2 Ryan [place] PA Work Phone: [facility] 02-28-2025 16:00-0400 Body height 152.4 cm Ryan [place] PA Work Phone: [facility] 02-28-2025 16:00-0400 Body mass index (BMI) [Ratio] 31.1 kg/m2 Ryan Dimas PA Work Phone: [facility] 02-28-2025 16:00-0400 Body temperature 98.4 [degF] Ryan [place] PA Work Phone: [facility] 02-28-2025 16:00-0400 Body weight 72.23 kg Ryan Dimas PA Work Phone: [facility] 02-28-2025 16:00-0400 Diastolic blood pressure 69 mm[Hg] Ryan [place] PA Work Phone: [facility] 02-28-2025 16:00-0400 Heart rate 73 /min Ryan [place] PA Work Phone: [facility] 02-28-2025 16:00-0400 Respiratory rate 16 /min Ryan [place] PA Work Phone: [facility] 02-28-2025 16:00-0400 SaO2% (BldA) [Mass fraction] 100 % Ryan [place] PA Work Phone: [facility] 02-28-2025 16:00-0400 Systolic blood pressure 106 mm[Hg] Ryan [place] PA Work Phone: [facility] 02-13-2025 08:40-0400 Body temperature 97.1 [degF] Ryan [place] PA Work Phone: [facility] 02-13-2025 08:40-0400 Diastolic blood pressure 50 mm[Hg] Ryan Dimas PA Work Phone: [facility] 02-13-2025 08:40-0400 Heart rate 74 /min Ryan Dimas PA Work Phone: [facility] 02-13-2025 08:40-0400 Respiratory rate 16 /min Ryan [place] PA Work Phone: [facility] 02-13-2025 08:40-0400 SaO2% (BldA) [Mass fraction] 100 % Ryan Dimas PA Work Phone: [facility] 02-13-2025 08:40-0400 Systolic blood pressure 94 mm[Hg] Ryan Dimas PA Work Phone: [facility] 02-13-2025 06:48-0400 Body height 152.4 cm Ryan Dimas PA Work Phone: [facility] 02-13-2025 06:48-0400 Body mass index (BMI) [Ratio] 31.7 kg/m2 Ryan Dimas PA Work Phone: [facility] 02-13-2025 06:48-0400 Body weight 73.8 kg Ryan [place] PA Work Phone: [facility] 02-08-2025 14:22-0400 Body weight 72.12 kg Ryan Dimas PA Work Phone: [facility] 02-08-2025 14:22-0400 Diastolic blood pressure 61 mm[Hg] Ryan Dimas PA Work Phone: [facility] 02-08-2025 14:22-0400 Heart rate 64 /min Ryan Dimas PA Work Phone: [facility] 02-08-2025 14:22-0400 Respiratory rate 18 /min Ryan [place] PA Work Phone: [facility] 02-08-2025 14:22-0400 SaO2% (BldA) [Mass fraction] 98 % Ryan [place] PA Work Phone: [facility] 02-08-2025 14:22-0400 Systolic blood pressure 92 mm[Hg] Ryan [place] PA Work Phone: [facility] 01-30-2025 13:43-0400 Body height 152.4 cm Ryan Dimas PA-C Work Phone: [facility] 01-30-2025 13:43-0400 Body mass index (BMI) [Ratio] 31.48 kg/m2 Ryan Dimas PA-C Work Phone: [facility] 01-30-2025 13:43-0400 Body weight 73.12 kg Ryan [place] PA-C Work Phone: [facility] 01-30-2025 13:43-0400 Diastolic blood pressure 78 mm[Hg] Ryan [place] PA-C Work Phone: [facility] 01-30-2025 13:43-0400 Heart rate 88 /min Ryan Dimas PA-C Work Phone: [facility] [facility] 01-30-2025 13:43-0400 Systolic blood pressure 119 mm[Hg] Ryan East Orange PA-C Work Phone: [facility] 01-29-2025 15:21-0400 Body height 152.4 cm Ryan East Orange PA Work Phone: [facility] 01-29-2025 15:21-0400 Body mass index (BMI) [Ratio] 31 kg/m2 Ryan Dimas PA Work Phone: [facility] 01-29-2025 15:21-0400 Body temperature 98.8 [degF] Ryan East Orange PA Work Phone: [facility] 01-29-2025 15:21-0400 Body weight 72.12 kg Ryan Dimas PA Work Phone: [facility] 01-29-2025 15:21-0400 Diastolic blood pressure 74 mm[Hg] Ryan Dimas PA Work Phone: [facility] 01-29-2025 15:21-0400 Heart rate 67 /min Ryan Dimas PA Work Phone: [facility] 01-29-2025 15:21-0400 Respiratory rate 16 /min Ryan Dimas PA Work Phone: [facility] 01-29-2025 15:21-0400 SaO2% (BldA) [Mass fraction] 97 % Ryan Dimas PA Work Phone: [facility] 01-29-2025 15:21-0400 Systolic blood pressure 106 mm[Hg] Ryan Dimas PA Work Phone: [facility] 01-23-2025 09:59-0400 Body height 152.4 cm Ryan East Orange PA Work Phone: [facility] 01-23-2025 09:59-0400 Body mass index (BMI) [Ratio] 31.3 kg/m2 Ryan Dimas PA Work Phone: [facility] 01-23-2025 09:59-0400 Body temperature 97.5 [degF] Ryan Dimas PA Work Phone: [facility] 01-23-2025 09:59-0400 Body weight 72.74 kg Ryan East Orange PA Work Phone: [facility] 01-23-2025 09:59-0400 Diastolic blood pressure 72 mm[Hg] Ryan Dimas PA Work Phone: [facility] 01-23-2025 09:59-0400 Heart rate 64 /min Ryan Dimas PA Work Phone: [facility] 01-23-2025 09:59-0400 Respiratory rate 17 /min Ryan East Orange PA Work Phone: [facility] 01-23-2025 09:59-0400 SaO2% (BldA) [Mass fraction] 99 % Ryan East Orange PA Work Phone: [facility] 01-23-2025 09:59-0400 Systolic blood pressure 105 mm[Hg] Ryan East Orange PA Work Phone: [facility] 01-04-2025 09:41-0400 Body height 152.4 cm Ryna East Orange PA-C Work Phone: [facility] 01-04-2025 09:41-0400 Body mass index (BMI) [Ratio] 30.47 kg/m2 Ryan Dimas PA-C Work Phone: [facility] 01-04-2025 09:41-0400 Body weight 70.76 kg Ryan East Orange PA-C Work Phone: [facility] 01-04-2025 09:41-0400 Diastolic blood pressure 72 mm[Hg] Ryan Dimas PA-C Work Phone: [facility] 01-04-2025 09:41-0400 Heart rate 79 /min Ryan Dimas PA-C Work Phone: [facility] 01-04-2025 09:41-0400 Systolic blood pressure 111 mm[Hg] Ryan Dimas PA-C Work Phone: [facility] 11-15-2024 12:38-0400 Body height 152.4 cm Ryan East Orange PA-C Work Phone: [facility] 11-15-2024 12:38-0400 Body mass index (BMI) [Ratio] 30.19 kg/m2 Ryan East Orange PA-C Work Phone: [facility] 11-15-2024 12:38-0400 Body weight 70.13 kg Ryan Dimas PA-C Work Phone: [facility] 11-15-2024 12:38-0400 Diastolic blood pressure 82 mm[Hg] Ryan Dimas PA-C Work Phone: [facility] 11-15-2024 12:38-0400 Heart rate 90 /min Ryan East Orange PA-C Work Phone: [facility] 11-15-2024 12:38-0400 SaO2% (BldA) [Mass fraction] 98 % Ryan Cochran PA-C Work Phone: [facility] 11-15-2024 12:38-0400 Systolic blood pressure 117 mm[Hg] Ryan Cochran PA-C Work Phone: [facility] 05-23-2024 11:45-0400 Diastolic blood pressure 69 mm[Hg] Mariela Schulz DO Work Phone: [facility] 05-23-2024 11:45-0400 Heart rate 95 /min Mariela Schulz DO Work Phone: [facility] 05-23-2024 11:45-0400 Respiratory rate 16 /min Mariela Schulz DO Work Phone: [facility] 05-23-2024 11:45-0400 SaO2% (BldA) [Mass fraction] 95 % Mariela Schulz DO Work Phone: [facility] 05-23-2024 11:45-0400 Systolic blood pressure 111 mm[Hg] Mariela Schulz DO Work Phone: [facility] 05-22-2024 21:50-0400 Body height 152.4 cm Mariela Schulz DO Work Phone: [facility] 05-22-2024 21:50-0400 Body mass index (BMI) [Ratio] 27.34 kg/m2 Mariela Schulz DO Work Phone: [facility] 05-22-2024 21:50-0400 Body temperature 97.9 [degF] Mariela Schulz DO Work Phone: [facility] 05-22-2024 21:50-0400 Body weight 63.5 kg Mariela Schulz DO Work Phone: [facility] 07-04-2021 12:42-0500 Body height 155 cm Kinjal Cleveland MD Work Phone: [facility] 07-04-2021 12:42-0500 Body mass index (BMI) [Ratio] 25.05 kg/m2 Kinjal Cleveland MD Work Phone: [facility] 07-04-2021 12:42-0500 Body temperature 97.81 [degF] Kinjal Cleveland MD Work Phone: [facility] 07-04-2021 12:42-0500 Body weight 60.19 kg Kinjal Cleveland MD Work Phone: [facility] 07-04-2021 12:42-0500 Diastolic blood pressure 60 mm[Hg] Kinjal Cleveland MD Work Phone: [facility] 07-04-2021 12:42-0500 Heart rate 67 /min Kinjal Cleveland MD Work Phone: [facility] 07-04-2021 12:42-0500 Respiratory rate 18 /min Kinjal Cleveland MD Work Phone: [facility] 07-04-2021 12:42-0500 SaO2% (BldA) [Mass fraction] 97 % Kinjal Cleveland MD Work Phone: [facility] 07-04-2021 12:42-0500 Systolic blood pressure 92 mm[Hg] Kinjal Cleveland MD Work Phone: [facility] 01-19-2021 09:06-0400 Body temperature 98.29 [degF] Candice Bobby DO Work Phone: [facility] Work Phone: 01-19-2021 09:06-0400 Diastolic blood pressure 89 mm[Hg] Candiceherminia Bobby DO Work Phone: [facility] Work Phone: 01-19-2021 09:06-0400 Heart rate 100 /min Candiceherminia Bahenae DO Work Phone: [facility] Work Phone: 01-19-2021 09:06-0400 SaO2% (BldA) [Mass fraction] 99 % Candice Kanu DO Work Phone: [facility] Work Phone: 01-19-2021 09:06-0400 Systolic blood pressure 138 mm[Hg] Candice Bobby DO Work Phone: [facility] Work Phone: 01-18-2021 20:30-0400 Respiratory rate 18 /min Candice Bobby DO Work Phone: [facility] Work Phone: 01-16-2021 23:50-0400 Body height 152.4 cm Candice Bobby DO Work Phone: [facility] Work Phone: 01-16-2021 23:50-0400 Body mass index (BMI) [Ratio] 32.22 kg/m2 Candice Bobby DO Work Phone: [facility] Work Phone: 01-16-2021 23:50-0400 Body weight 74.84 kg Candice Bobby DO Work Phone: [facility] Work Phone: 10-27-2020 10:30-0400 BP Diastolic 65 mm[Hg] [facility] 10-27-2020 10:30-0400 BP Systolic 115 mm[Hg] [facility] 10-27-2020 10:30-0400 Pulse Oximetry 99 % [facility] 10-27-2020 09:53-0400 Pulse (Heart Rate) 91 /min [facility] 10-27-2020 08:10-0400 BMI (Body Mass Index) 30.27 kg/m2 [facility] 10-27-2020 08:10-0400 Body Temperature 97.3 [degF] [facility] 10-27-2020 08:10-0400 Body weight 70.31 kg [facility] 10-27-2020 08:10-0400 Height 152.4 cm [facility] 10-27-2020 08:10-0400 Respiratory Rate 18 /min Debi Pederson [facility] 09-27-2019 09:36-0500 BMI (Body Mass Index) 26.37 kg/m2 Era Giordano [facility] 09-27-2019 09:36-0500 Body weight 61.24 kg Era Giordano [facility] 09-27-2019 09:36-0500 Height 152.4 cm Era Giordano [facility] 01-04-2019 18:19-0400 BMI (Body Mass Index) 30.27 kg/m2 [facility] 01-04-2019 18:19-0400 Body Temperature 97.59 [degF] [facility] 01-04-2019 18:19-0400 BP Diastolic 60 mm[Hg] [facility] 01-04-2019 18:19-0400 BP Systolic 102 mm[Hg] [facility] 01-04-2019 18:19-0400 Height 152.4 cm [facility] 01-04-2019 18:19-0400 Pulse (Heart Rate) 88 /min [facility] 01-04-2019 18:19-0400 Pulse Oximetry 98 % [facility] 01-04-2019 18:19-0400 Respiratory Rate 18 /min [facility] 01-04-2019 18:19-0400 Weight 70.31 kg [facility] 10-08-2017 17:17-0500 BMI (Body Mass Index) 27.97 kg/m2 [facility] 10-08-2017 17:17-0500 Body Temperature 98.1 [degF] [facility] 10-08-2017 17:17-0500 BP Diastolic 63 mm[Hg] [facility] 10-08-2017 17:17-0500 BP Systolic 109 mm[Hg] [facility] 10-08-2017 17:17-0500 Height 152.4 cm [facility] 10-08-2017 17:17-0500 Pulse (Heart Rate) 65 /min [facility] 10-08-2017 17:17-0500 Pulse Oximetry 98 % [facility] 10-08-2017 17:17-0500 Respiratory Rate 16 /min [facility] 10-08-2017 17:17-0500 Weight 64.95 kg Elton Bauer [facility] Encounters Encounter Date Encounter Type Care Provider Facility Start: 06-20-2025 End: 06-20-2025 ambulatory Ryan Dimas PA Facility:[facility] Start: 06-18-2025 End: 06-19-2025 Emergency department patient visit Mariela Schulz DO Work Phone: [facility] Comment on above: Hypomagnesemia (Prim julissa Dx); Generalized abdominal pain Start: 06-15-2025 End: 06-15-2025 ambulatory Ryan East Orange PA Facility:[facility] Start: 06-08-2025 End: 06-08-2025 ambulatory Ryan Dimas PA Facility:[facility] Start: 06-07-2025 End: 06-07-2025 ambulatory Ryan Dimas PA Facility:[facility] Start: 05-31-2025 ambulatory Ryan Dimas PA Fa cility:[facility] Start: 05-31-2025 Non-patient / Non-visit [facility]. Et[facility] Start: 05-31-2025 End: 05-31-2025 Patient encounter procedure Sheila Eubanks NP-C -Cardiovascular Services Work Phone: Start: 05-30-2025 End: 05-30-[address] Ara Franklin MD -[facility] Work Phone: Start: 05-30-2025 End: 05-31-2025 ambulatory Ryan East Orange PA Work Phone: [facility] Start: 05-09-2025 End: 05-09-2025 Patient encounter procedure Sheila Eubanks NP-C -[facility] Work Phone: Start: 05-09-2025 End: 05-09-2025 ambulatory Ryan Dimas PA Work Phone: -[facility] Start: 05-09-[address] [facility] Start: 04-18-[address] [facility] Start: 04-18-2025 End: 04-18-[address] Ara Franklin MD -[facility] Work Phone: Start: 04-18-2025 End: 04-18-2025 ambulatory Ryan Cochran PA Work Phone: [facility] Start: 03-29-2025 End: 03-29-[address] Ara Franklin MD -[facility] Work Phone: Start: 03-29-2025 End: 03-29-2025 ambulatory Ryanchristopher Hilliardall PA Work Phone: [facility] Start: 03-29-[address] Manda Franklin MD -[facility] Start: 03-20-2025 End: 03-20-[address] Ara Franklin MD -[facility] Work Phone: Start: 03-20-2025 End: 03-20-2025 ambulatory Ryan Hilliardall PA Work Phone: [facility] Start: 03-20-[address] Manda Franklin MD -[facility] Start: 03-13-2025 End: 03-13-2025 Office outpatient visit 25 minutes Ryan HYMAN-C Work Phone: [facility] Comment on above: Urinary frequency (P rimary Dx); Dysuria; Class 1 obesity due to excess calories without serious comorbidity with body mass index (BMI) of 30.0 to 30.9 in adult; Infiltrating ductal carcinoma of left breast; Depression, major, recurrent, mild Start: 03-09-2025 End: 03-09-2025 ambulatory RYAN COCHRAN [facility] Start: 03-08-2025 Encounter for other preprocedural examination Tamiko Mccarthy [facility] Start: 02-28-2025 End: 02-28-[address] Tamiko Mccarthy MD -[facility] Work Phone: Start: 02-28-2025 End: 02-28-2025 ambulatory Ryan HYMAN Work Phone: -[facility] Start: 02-21-2025 End: 02-21-2025 ambulatory PAUL HUYNH [facility] Start: 02-21-2025 End: 02-21-2025 Subsequent hospital visit by physician Paul Huynh MD Work Phone: [facility] Comment on above: Malignant neoplasm o f female breast, unspecified estrogen receptor status, unspecified laterality, unspecified site of breast; Encounter for nonprocreative genetic counseling; Malignant neoplasm of left breast in female, estrogen receptor negative, unspecified site of breast Start: 02-21-2025 End: 02-21-2025 ambulatory Ryan HYMAN Work Phone: -Cat Scan [facility] Start: 02-21-2025 End: 02-21-2025 Patient encounter procedure Sheila Eubanks [employer]-C -Cat Scan [facility] Work Phone: Start: 02-21-2025 End: 02-21-2025 ambulatory Ryan HYMAN Facility:[facility] Start: 02-16-2025 End: 02-16-2025 ambulatory [facility] Start: 02-14-2025 End: 02-14-2025 ambulatory Ryan HYMAN Work Phone: -Nuclear Medicine [facility] Start: 02-14-2025 End: 02-14-2025 Patient encounter procedure Sheila Eubanks [employer]-C -Nuclear Medicine [facility] Work Phone: Start: 02-13-2025 ambulatory Tamiko Mccarthy Facilit y:[facility] Start: 02-13-2025 Non-patient / Non-visit Dr. Tho Mccarthy MD -[facility] Start: 02-13-2025 End: 02-13-2025 Admission to same day surgery center Dr. Tamiko Mccarthy [facility] Start: 02-13-2025 End: 02-14-2025 ambulatory Ryan HYMAN Work Phone: -[facility] Start: 02-08-2025 End: 02-08-[address] Michael Pantoja MD -[facility] Work Phone: Start: 02-08-2025 End: 02-08-2025 ambulatory Ryan Cochran PA Work Phone: -[facility] Start: 02-08-2025 Non-patient / Non-visit Dr. Carlos MATOS -[facility] Start: 02-08-2025 End: 02-08-2025 ambulatory Ryan Dimas PA Work Phone: -[facility] Services Start: 02-08-2025 End: 02-08-[address] Ara Franklin MD -[facility] Work Phone: Start: 02-08-2025 End: 02-08-2025 ambulatory Ryanchristopher Cochran PA Facility:[facility] Start: 01-31-2025 End: 01-31-2025 ambulatory Ryan Dimas PA Work Phone: [facility] Start: 01-31-2025 End: 01-31-[address] Tamiko Mccarthy MD -[facility] Work Phone: Start: 01-30-2025 End: 01-30-2025 Office outpatient visit 25 minutes Ryan HYMAN-C Work Phone: [facility] Comment on above: Infiltrating ductal carcinoma of left breast (Primary Dx); Depression, major, recurrent, mild; Class 1 obesity due to excess calories without serious comorbidity with body mass index (BMI) of 31.0 to 31.9 in adult Start: 01-30-2025 End: 01-31-2025 ambulatory [facility] Start: 01-29-[address] Manda Franklin MD -[facility] Start: 01-29-2025 End: 01-29-[address] Ara Franklin MD -[facility] Work Phone: Start: 01-29-2025 End: 01-29-2025 ambulatory Ryan Cochran PA Work Phone: [facility] Work Phone: Start: 01-25-2025 End: 01-25-2025 ambulatory Ryan HYMAN Work Phone: [facility] Work Phone: Start: 01-25-2025 End: 01-25-[address] Tamiko Mccarthy MD -[facility] Work Phone: Start: 01-25-2025 End: 01-25-2025 ambulatory Tamiko Mccarthy Facility:[facility] Start: 01-23-2025 End: 01-23-2025 ambulatory Ryan HYMAN Work Phone: [facility] Work Phone: Start: 01-23-2025 End: 01-23-[address] Tamiko Mccarthy MD -[facility] Work Phone: Start: 01-12-2025 End: 01-12-2025 Subsequent hospital visit by physician Jorge Del Real 2 [facility] Comment on above: Abnormal mammogram o f left breast; Mass of multiple sites of left breast Start: 01-12-2025 End: 01-12-2025 ambulatory [facility] Start: 01-10-2025 End: 01-10-2025 Subsequent hospital visit by physician Jorge Del Real 2 [facility] Comment on above: Mass of upper outer quadrant of left breast Start: 01-10-2025 End: 01-10-2025 ambulatory [facility] Start: 01-04-2025 End: 01-04-2025 Office outpatient visit 25 minutes Ryan VIEIRAC Work Phone: [facility] Comment on above: Mass of upper outer quadrant of left breast (Primary Dx); Class 1 obesity due to excess calories without serious comorbidity with body mass index (BMI) of 30.0 to 30.9 in adult; Fibrocystic change of breast, left Start: 01-04-2025 End: 01-04-2025 ambulatory [facility] Start: 11-15-2024 End: 11-15-2024 Office outpatient new 45 minutes Ryan Cochran PA-C Work Phone: [facility] Comment on above: Encounter to [facility] with new provider (Primary Dx); Encounter for wellness examination in adult; Glucose intolerance (impaired glucose tolerance); Class 1 obesity due to excess calories without serious comorbidity with body mass index (BMI) of 30.0 to 30.9 in adult; Dietary counseling and surveillance; Intractable menstrual migraine with status migrainosus Start: 11-15-2024 End: 11-15-2024 Patient encounter status Ryan Cochran PA-C Work Phone: [facility] Work Phone: Start: 11-15-2024 End: 11-15-2024 ambulatory EOLIA Radha Count includes the [facility] Start: 11-15-2024 End: 11-15-2024 Encounter for general adult medical examination without [facility] Start: 07-03-2024 ambulatory [facility] Start: 05-23-2024 End: 05-25-2024 ambulatory [facility] Start: 05-22-2024 End: 05-23-2024 Emergency department patient visit Mariela Tam Schulz Work Phone: [facility] Comment on above: Pneumonia due to inf ectious organism, unspecified laterality, unspecified part of lung (Primary Dx) Start: 05-14-2024 End: 05-15-2024 Emergency department patient visit KEYSHAWN LOCKETT [facility] Start: 09-10-2021 Orders Only Kinjal Cleveland MD Work Phone: [facility] Comment on above: 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) Start: 08-26-2021 Orders Only Kinjal Cleveland MD Work Phone: [facility] Comment on above: 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) Start: 07-21-2021 End: 07-21-2021 Office outpatient visit 25 minutes Era Giordano CNP Work Phone: [facility] Comment on above: Instability of left shoulder joint (Primary Dx); Bursitis and tendinitis of shoulder region Start: 07-04-2021 End: 07-04-2021 Office outpatient new 30 minutes Kinjal Cleveland MD Work Phone: [facility] Comment on above: 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); Functional diarrhea Start: 01-16-2021 End: 01-19-2021 Evaluation and management of inpatient Candice Bobby DO Work Phone: [facility] Start: 10-27-2020 End: 10-27-2020 Emergency department patient visit Debi Pederson Work Phone: [facility] Start: 09-27-2019 End: 09-27-2019 Office outpatient new 30 minutes Era Giordano Work Phone: [facility] Comment on above: Pain in both upper e xtremities (Primary Dx) Start: 01-04-2019 End: 01-04-2019 Patient encounter procedure Ba Rainey Geoffrey Work Phone: [facility] Start: 01-04-2019 End: 01-04-2019 Emergency department patient visit [facility] Start: 10-08-2017 Office/outpatient vi sitgarry, level 3 Elton Bauer Work Phone: [facility] Procedures Date Procedure Procedure Detail Performing Clinician Start: 06-18-2025 Radiologic exam ches t single view Mariela Schulz DO Work Phone: Start: 06-18-2025 Urnls dip stick/tabl et rgnt auto w/o microscopy Mariela Schulz DO Work Phone: Start: 06-18-2025 Ct abdomen & pelvis w/contrast material Mariela Schulz DO Work Phone: Start: 06-18-2025 Comprehensive metabo lic panel Mariela Schulz DO Work Phone: Start: 06-07-2025 Estimated creatinine clearance Ryan Cochran PA Work Phone: Start: 06-07-2025 Neutrophil percent differential count Ryan Cochran PA Work Phone: Start: 05-09-2025 Serum inorganic phos phate measurement Ryan Cochran PA Work Phone: Start: 05-09-2025 Estimated creatinine clearance Ryan Cochran PA Work Phone: Start: 04-18-2025 Estimated creatinine clearance Ryan Cochran PA Work Phone: Start: 04-18-2025 Serum inorganic phos phate measurement Ryan Cochran PA Work Phone: Start: 03-29-2025 Estimated creatinine clearance Ryan Cochran PA Work Phone: Start: 03-29-2025 Serum inorganic phos phate measurement Ryan Cochran PA Work Phone: Start: 03-20-2025 Urnls dip stick/tabl et reagent auto microscopy Ryan Cochran PA Work Phone: Start: 03-20-2025 Estimated creatinine clearance Ryan Cochran PA Work Phone: Start: 03-20-2025 Urine culture Ryan whitley PA Work Phone: Start: 03-13-2025 Urnls dip stick/tabl et rgnt auto w/o microscopy Ryan Cochran PA-C Work Phone: Start: 02-21-2025 CT of thorax, abdome n and pelvis with contrast Ryan Cochran PA Work Phone: Start: 02-14-2025 Radionuclide whole b tiana bone study Ryan Cochran PA Work Phone: Start: 02-13-2025 Plain chest X-ray Shirlene Cochran PA Work Phone: Start: 02-13-2025 Implantation to cardiovascular system Ryan HYMAN Work Phone: Start: 02-13-2025 Fluoroscopic guidance R loida Dimas HYMAN Work Phone: Start: 01-31-2025 Ultrasonography of [...] Start: 05-23-2024 Ct angiography chest w/contrast/noncontrast Mariela Shawft DO Work Phone: Start: 05-23-2024 Assay of lactate Mariela Tam Schulz DO Work Phone: Start: 05-22-2024 Comprehensive metabo lic panel Mariela Tam Schulz DO Work Phone: Start: 05-22-2024 Radiologic exam ches t 2 views Mariela Tam Schulz DO Work Phone: Start: 05-22-2024 Ecg routine ecg w/le ast 12 lds trcg only w/o i&r Mariela Shawft DO Work Phone: Start: 07-21-2021 Arthrocentesis aspir &/inj major jt/bursa w/o us Era Giordano [employer] OPERATOR Work Phone: Start: 07-04-2021 Adult depression scr eening assessment Kinjal Cleveland MD Work Phone: Start: 01-18-2021 Blood count hemoglobin Drea Senior DO Work Phone: Start: 01-17-2021 End: 01-19-2021 H/O: section Status post emergency section Candice Bobby DO Work Phone: Start: 01-17-2021 Radiologic exam abdo men 1 view Suri Estrada DO Work Phone: Start: 01-16-2021 Antibody screen Jhony Bobby DO Work Phone: Start: 01-16-2021 Blood typing serologic abo Suri Estrada DO Work Phone: Start: 01-16-2021 Comprehensive metabo lic panel Suri Estrada DO Work Phone: Start: 01-16-2021 Culture bacterial quanttative colony count urine Suri Estrada DO Work Phone: Start: 10-27-2020 Basic metabolic pane l calcium ionized [facility] Start: 10-27-2020 Albumin serum plasma /whole blood [facility] Start: 10-27-2020 Blood count complete auto&auto difrntl wbc Debi Pederson Work Phone: Start: 07-22-2020 C. TRACHOMATIS, EXTE RNAL RESULT Historical Provider Start: 07-22-2020 GBS, EXTERNAL RESULT Hi jamesical Provider Start: 07-22-2020 HEPATITIS B, EXTERNA L RESULT Historical Provider Start: 07-22-2020 HEPATITIS C ANTIBODY , EXTERNAL RESULT Historical Provider Start: 07-22-2020 HIV, EXTERNAL RESULT Hi jamesical Provider Start: 07-22-2020 N. GONORRHOEAE, EXTE RNAL RESULT Historical Provider Start: 07-22-2020 RPR, EXTERNAL RESULT Hi storical Provider Start: 07-22-2020 RUBELLA TITER, EXTER NAL RESULT Historical Provider Start: 05-13-2019 Antibody screen Comment on above: Performed By: #### T +S #### [id number] [place] [address] Start: 01-04-2019 Us retroperitoneal r eal time w/image limited Ba Rainey Subit Work Phone: Start: 01-04-2019 Urinalysis Ba Roderick julian Subit Work Phone: Start: 11-02-2018 Microscopic observat ion [Identifier] in Cervix by Cyto stain Mariela Schulz DO Work Phone: H/O: section Status pos t emergency section Candice Bobby DO Work Phone: Plan of Treatment Date Care Activity Detail Author Start: 2046 Zoster Vaccines (1 of 2) Zoster Vaccines (1 of 2) [facility] Start: 10-09-2027 Tetanus vaccination [facility] Start: 12-02-2026 DTaP/Tdap/Td Vaccines (7 - Td or Tdap) DTaP/Tdap/Td Vaccines (7 - Td or Tdap) [facility] Start: 12-02-2026 Tetanus Diphtheria and Pertussis Vaccines (7 - Td or Tdap) Tetanus Diphtheria and Pertussis Vaccines (7 - Td or Tdap) [facility] Start: 06-28-2025 ambulatory Ambulatory Facility:[facility] Start: 06-20-2025 Serum inorganic phosphate measurement [facility] Start: 06-15-2025 End: 06-15-2025 Patient encounter procedure Encounter for breast reconstruction following mastectomy -[facility] Work Phone: Start: 06-08-2025 End: 06-08-2025 Patient encounter procedure HER2-positive carcinoma of left breast -[facility] Work Phone: Start: 06-07-2025 End: 06-07-2025 Patient encounter procedure Axillary lymphadenopathy -[facility] Work Phone: Start: 06-07-2025 Registered Recurring Registered Recurring -[facility] Start: 04-18-2025 [facility] Start: 04-09-2025 COVID-19 Vaccine ( season) COVID-19 Vaccine ( season) [facility] Start: 04-09-2025 FLU (#1) FLU (#1) [facility] Start: 04-09-2025 Influenza vaccination [facility] Start: 04-02-2025 End: 04-02-2025 Patient encounter procedure 04/02/2025 9:40 AM EDT Office Visit [facility] [address] [place] [id number] Ryan Cochran, PA-C [address] [place], [place] [id number] [facility] Start: 03-29-2025 [facility] Start: 03-20-2025 Urinalysis complete panel - Urine [facility] Start: 03-20-2025 [facility] Start: 03-20-2025 [facility] Start: 03-09-2025 Influenza vaccination Influenza Vaccine (#1) [facility] Start: 03-07-2025 Venous catheter care management [facility] Start: 02-13-2025 Anesthesia access central venous circulation ANESTH VASCULAR ACCESS [facility] Start: 02-13-2025 Insj tunneled ctr vad w/subq port age 6 yr/> INSERT TUNNELED CV CATH [facility] Start: 02-13-2025 Patient discharge [facility] Start: 02-06-2025 Positron emission tomography with computed tomography [facility] Start: 01-30-2025 End: 01-30-2025 Patient encounter procedure 01/30/2025 1:40 PM EDT Office Visit [facility] [address] [place] [phone] Ryan Cochran, PA-C [address] [place] [address] [facility] Start: 01-29-2025 Cobalamin (Vitamin B12) [Mass/volume] in Serum or Plasma [facility] Start: 01-29-2025 Comprehensive metabolic 2000 panel - Serum or Plasma [facility] Start: 01-29-2025 Ferritin [Mass/volume] in Serum or Plasma [facility] Start: 01-29-2025 Iron and Iron binding capacity panel - Serum or Plasma [facility] Start: 01-29-2025 [facility] Start: 01-23-2025 Patient referral [facility] Work Phone: Start: 01-23-2025 End: 01-23-2025 Patient encounter procedure 01/23/2025 1:30 PM EDT Office Visit [facility] [address] [place] [phone] Nikki Ballesteros MD [address] [place] [address] [facility] Start: 01-17-2025 End: 01-17-2025 Patient encounter procedure 01/17/2025 9:45 AM EDT Office Visit [facility] [address] [place] [phone] Yudy Ferrara MD [address] [place] [address] [facility] Start: 01-12-2025 End: 01-12-2025 Patient encounter procedure [facility] Start: 01-10-2025 End: 01-10-2025 Patient encounter procedure [facility] Start: 01-04-2025 End: 03-06-2026 DBT Breast - left diagnostic BI mammo left diagnostic tomosynthesis Imaging Routine Mass of upper outer quadrant of left breast Expected: 01/04/2025, Expires: 03/06/2026 [facility] Service Area Work Phone: Comment on above: Expected: 01/04/2025, Expires: Start: 01-04-2025 End: 03-06-2026 US Breast - left limited BI US breast limited left Imaging Routine Mass of upper outer quadrant of left breast Expected: 01/04/2025, Expires: 03/06/2026 [facility] Work Phone: Comment on above: Expected: 01/04/2025, Expires: Start: 11-15-2024 End: 11-15-2025 CBC W Auto Differential panel - Blood CBC and Auto Differential Lab Routine Encounter for wellness examination in adult Glucose intolerance (impaired glucose tolerance) Class 1 obesity due to excess calories without serious comorbidity with body mass index (BMI) of 30.0 to 30.9 in adult Expected: 11/15/2024 (Approximate), Expires: 11/15/2025 [facility] Service Area Work Phone: Comment on above: Expected: 11/15/2024 (Approximate), Expi res: 11/15/2025 Start: 11-15-2024 End: 11-15-2025 Comprehensive metabolic 2000 panel - Serum or Plasma Comprehensive Metabolic Panel Lab Routine Encounter for wellness examination in adult Glucose intolerance (impaired glucose tolerance) Class 1 obesity due to excess calories without serious comorbidity with body mass index (BMI) of 30.0 to 30.9 in adult Expected: 11/15/2024 (Approximate), Expires: 11/15/2025 [facility] Work Phone: Comment on above: Expected: 11/15/2024 (Approximate), Expi res: 11/15/2025 Start: 11-15-2024 End: 11-15-2025 Hemoglobin A1c/Hemoglobin.total in Blood Hemoglobin A1C Lab Routine Encounter for wellness examination in adult Glucose intolerance (impaired glucose tolerance) Class 1 obesity due to excess calories without serious comorbidity with body mass index (BMI) of 30.0 to 30.9 in adult Expected: 11/15/2024 (Approximate), Expires: 11/15/2025 [facility] Work Phone: Comment on above: Expected: 11/15/2024 (Approximate), Expi res: 11/15/2025 Start: 11-15-2024 End: 11-15-2025 Lipid 1996 panel - Serum or Plasma Lipid Panel Lab Routine Encounter for wellness examination in adult Glucose intolerance (impaired glucose tolerance) Class 1 obesity due to excess calories without serious comorbidity with body mass index (BMI) of 30.0 to 30.9 in adult Expected: 11/15/2024 (Approximate), Expires: 11/15/2025 [facility] Work Phone: Comment on above: Expected: 11/15/2024 (Approximate), Expi res: 11/15/2025 Start: 11-15-2024 End: 11-15-2025 Magnesium [Mass/volume] in Serum or Plasma Magnesium Lab Routine Encounter for wellness examination in adult Glucose intolerance (impaired glucose tolerance) Class 1 obesity due to excess calories without serious comorbidity with body mass index (BMI) of 30.0 to 30.9 in adult Expected: 11/15/2024 (Approximate), Expires: 11/15/2025 [facility] Work Phone: Comment on above: Expected: 11/15/2024 (Approximate), Expi res: 11/15/2025 Start: 11-15-2024 End: 11-15-2025 Thyrotropin [Units/volume] in Serum or Plasma Thyroid Stimulating Hormone Lab Routine Encounter for wellness examination in adult Glucose intolerance (impaired glucose tolerance) Class 1 obesity due to excess calories without serious comorbidity with body mass index (BMI) of 30.0 to 30.9 in adult Expected: 11/15/2024 (Approximate), Expires: 11/15/2025 [facility] Work Phone: Comment on above: Expected: 11/15/2024 (Approximate), Expi res: 11/15/2025 Start: 11-15-2024 End: 11-15-2025 Thyroxine (T4) free [Mass/volume] in Serum or Plasma Thyroxine, Free Lab Routine Encounter for wellness examination in adult Glucose intolerance (impaired glucose tolerance) Class 1 obesity due to excess calories without serious comorbidity with body mass index (BMI) of 30.0 to 30.9 in adult Expected: 11/15/2024 (Approximate), Expires: 11/15/2025 [facility] Work Phone: Comment on above: Expected: 11/15/2024 (Approximate), Expi res: 11/15/2025 Start: 04-09-2024 COVID-19 ( season) COVID-19 () [facility] Start: 04-09-2024 COVID-19 Vaccine ( season) COVID-19 Vaccine ( season) [facility] Start: 04-09-2024 COVID-19 Vaccine () COVID-19 Vaccine () [facility] Start: 04-09-2024 Influenza vaccination Influenza Vaccine (#1) [facility] Start: 11-21-2023 HPV (1 - 3-dose SCDM series) HPV (1 - 3-dose SCDM series) [facility] Start: 11-21-2023 HPV Vaccines (1 - 3-dose standard series) HPV Vaccines (1 - 3-dose standard series) [facility] Start: 07-04-2022 Depression screening using PHQ-9 (Patient Health Questionnaire 9) score Depression Screening (PHQ-2/9) [facility] Start: 11-02-2021 Screening for malignant neoplasm of cervix [facility] Start: 04-09-2021 Influenza vaccination [facility] Start: 04-09-2020 Influenza vaccination given Sequential Influenza Vaccine (#1) [facility] Start: 04-09-2019 Influenza vaccination given [facility] Start: 03-09-2018 Vaccination for human papillomavirus HPV VACCINES (1 of 3 - Female 3 Dose Series) [facility] Start: 2017 Microscopic observation [Identifier] in Cervix by Cyto stain Pap Smear [facility] Start: 2017 Screening for malignant neoplasm of cervix [facility] Start: 2014 Hepatitis C antibody, confirmatory test Hepatitis C Screening [facility] Start: 2014 Hepatitis C screening Hepatitis C Screening [facility] Start: 2012 COVID-19 Vaccine (1) COVID-19 Vaccine (1) [facility] Start: 2012 MenB (1 of 2 - MenB 2-Dose Series Bexsero) MenB (1 of 2 - MenB 2-Dose Series Bexsero) [facility] Start: 11-21-2011 HIV screening HIV Screening [facility] Start: 11-21-2011 Vaccination for human papillomavirus HPV VACCINES (1 - Female 3-dose series) [facility] Start: 2008 Adolescent depression screening assessment Depression Screening (PHQ9) [facility] Start: 2008 COVID-19 Vaccine (1) COVID-19 Vaccine (1) [facility] Work Phone: Start: 2008 Depression screening using PHQ-9 (Patient Health Questionnaire 9) score Depression Screening (PHQ-2/9) [facility] Start: 11-21-2007 Vaccination for human papillomavirus [facility] Start: 03-27-2002 Varicella vaccination Varicella Vaccines (2 of 2 - 2-dose childhood series) [facility] Start: 2001 COVID-19 Vaccine (1) COVID-19 Vaccine (1) [facility] Start: 2000 Varicella (2 of 2 - 2-dose childhood series) Varicella (2 of 2 - 2-dose childhood series) [facility] Start: 11-21-1999 History and physical examination, annual for health maintenance Wellness Visit [facility] Start: 1996 Depression screening using PHQ-9 (Patient Health Questionnaire 9) score Depression Screening (PHQ9) [facility] Start: 1996 HIV screening HIV Screening [facility] Start: 1996 Lipid panel Lipid Panel [facility] Start: 1996 Screening for Chlamydia trachomatis Chlamydia Screening [facility] Start: 1996 Screening for malignant neoplasm of cervix PAP SMEAR [facility] Start: 1996 Yearly Adult Physical Yearly Adult Physical [facility] Alanine aminotransfe rase [Enzymatic activity/volume] in Serum or Plasma [facility] Albumin [Mass/volume ] in Serum or Plasma [facility] Alkaline phosphatase [Enzymatic activity/volume] in Serum or Plasma [facility] Anion gap in Serum o r Plasma [facility] End: 05-22-2024 Bacteria identified in Blood by Culture [facility] Service Area Work Phone: Comment on above: STAT (Lab) for 1 Occurrences starting until 05/22/2024, 1 completed End: 06-18-2025 Bacteria identified in Blood by Culture [facility] Work Phone: Comment on above: STAT (Lab) for 1 Occurrences starting until 06/18/2025 Bacteria identified in Urine by Culture Urine Culture Microbiology Routine Urinary frequency Dysuria Ordered: 03/13/2025 [facility] Service Area Work Phone: Comment on above: Ordered: 03/13/2025 Bilirubin measuremen t, urine [facility] Bilirubin, total measurement [facility] BUN/Creatinine ratio [facility] Calcium [Mass/volume ] in Serum or Plasma [facility] Carbon dioxide, tota l [Moles/volume] in Central venous blood [facility] CBC W Auto Different ial panel - Blood [facility] Comprehensive metabo lic 2000 panel - Serum or Plasma [facility] Creatinine [Mass/vol ume] in Serum or Plasma [facility] ECG 12 Lead ECG 12 Lead ECG STAT 05/22/2024 9:50 PM EDT [facility] Work Phone: End: 06-18-2025 ECG 12 Lead [facility] Work Phone: Comment on above: Once for 1 Occurrences starting 06/18/20 until 06/18/2025 End: 06-18-2025 Extra Urine [facility] Extra Urine [facility] Lab Timed Once for 1 Occurrences starting 06/18/2025 until 06/18/2025 [facility] Work Phone: Comment on above: Once for 1 Occurrences starting 06/18/20 until 06/18/2025 Folate [Moles/volume ] in Serum or Plasma [facility] End: 02-21-2025 Genetic Sendout: Custom Panel [facility] Work Phone: Comment on above: 1 Occurrences starting 02/21/2025 until 02/21/2025 Glucose [Mass/volume ] in Serum or Plasma [facility] Hemoglobin [Presence ] in Urine [facility] Iron [Mass/mass] in Unspecified specimen [facility] Iron saturation [Mas s Fraction] in Serum or Plasma [facility] Magnesium measurement [facility] Measurement of keton es in urine using dipstick [facility] Measurement of renal function [facility] Microscopic urinalysis [facility] MR Breast - bilatera l WO and W contrast IV [facility] MR Breast - bilatera l WO and W contrast IV [facility] Nonrebreather mask oxygen Nonreb reather mask oxygen Respiratory Care Routine As directed - RT (PRN) until discontinued starting 01/16/2021 [facility] Work Phone: Comment on above: As directed - RT (PRN) until discontinue d starting 01/16/2021 Oxygen therapy [[facility] Data Set] Initiate Oxygen Therapy Protocol Respiratory Care Routine Daily until discontinued starting 01/17/2021 [facility] Work Phone: Comment on above: Daily until discontinued starting [address] [facility] Work Phone: pH of Urine [facility] Phase I & II - meter ed glucose Phase I & II - metered glucose Point of Care Testing Routine As Needed until discontinued starting 01/17/2021 [facility] Work Phone: Comment on above: As Needed until discontinued starting Positron emission tomography with computed tomography [facility] Potassium measurement [facility] Serum chloride measurement [facility] Serum inorganic phos phate measurement [facility] Serum inorganic phos phate measurement [facility] Sodium measurement [facility] Specific gravity of Urine [facility] Spirometry panel Incentive ramón metry Respiratory Care Routine Every 2hr while awake until discontinued starting 01/17/2021 [facility] Work Phone: Comment on above: Every 2hr while awake until discontinued starting 01/17/2021 End: 01-17-2021 SURGICAL PATHOLOGY SURGICAL PATHOLOGY Lab Routine One Time for 1 Occurrences starting 01/17/2021 until 01/17/2021 [facility] Work Phone: Comment on above: One Time for 1 Occurrences starting 01/07 until 01/17/2021 End: 01-12-2025 Surgical pathology study [facility] Service Ar av[facility] Work Phone: Comment on above: Once (Lab) for 1 Occurrences starting until 01/12/2025, 1 completed Total iron binding capacity measurement [facility] Total protein measurement [facility] TYPE AND SCREEN TYPE AND SCREEN Blood Bank Routine Every Third Day until discontinued starting 01/16/2021, 1 completed [facility] Work Phone: Comment on above: Every Third Day until discontinued start ing 01/16/2021, 1 completed Urea nitrogen [Mass/volume] in Serum or Plasma [facility] End: 06-18-2025 Urinalysis complete W Reflex Culture panel - Urine [facility] Service Area Work Phone: Comment on above: Once (Lab) for 1 Occurrences starting until 06/18/2025 Urine blood test [facility] Urine culture [facility] Urine dipstick for glucose [facility] Urine dipstick for leukocyte esterase [facility] Urine dipstick for nitrite [facility] Urine dipstick for protein [facility] Urine examination [facility] Urine microscopy: epithelial cells [facility] Urine Microscopy: wh ite cells [facility] Urine test [facility] Urobilinogen [Presen ce] in Urine [facility] Immunizations Immunization Date Immunization Notes Care Provider Fa cility 01-17-2021 diphtheria, tetanus toxoids and acellular pertussis vaccine, unspecified formulation Candice Bobby DO Work Phone: [facility] Work Phone: 01-17-2021 measles, mumps and rubella virus vaccine Candiceherminia Bahenae DO Work Phone: [facility] Work Phone: 12-02-2016 tetanus toxoid, reduced diphtheria toxoid, and acellular pertussis vaccine, adsorbed Kinjal Cleveland MD Work Phone: [facility] 02-27-2002 diphtheria, tetanus toxoids and acellular pertussis vaccine, unspecified formulation Kinjal Cleveland MD Work Phone: [facility] 02-27-2002 measles, mumps and rubella virus vaccine Kinjal Cleveland MD Work Phone: [facility] 02-27-2002 poliovirus vaccine, inactivated Kinjal Cleveland MD Work Phone: [facility] 07-03-1998 diphtheria, tetanus toxoids and acellular pertussis vaccine, unspecified formulation Kinjal Cleveland MD Work Phone: [facility] 07-03-1998 varicella virus vaccine Kinjal Cleveland MD Work Phone: [facility] 04-10-1998 haemophilus influenz ae type b conjugate and Hepatitis B vaccine Kinjal Cleveland MD Work Phone: [facility] 04-10-1998 haemophilus influenz ae type b vaccine, conjugate unspecified formulation [facility] 04-10-1998 measles, mumps and rubella virus vaccine [facility] 07-25-1997 hepatitis B vaccine, pediatric or pediatric/adolescent dosage Kinjal Cleveland MD Work Phone: [facility] 07-03-1997 DTaP [facility] 06-20-1997 diphtheria, tetanus toxoids and acellular pertussis vaccine, unspecified formulation Kinjal Cleveland MD Work Phone: [facility] 06-20-1997 DTaP [facility] 06-20-1997 haemophilus influenz ae type b conjugate and Hepatitis B vaccine Kinjal Cleveland MD Work Phone: [facility] 06-20-1997 haemophilus influenz ae type b vaccine, conjugate unspecified formulation [facility] 06-20-1997 poliovirus vaccine, inactivated [facility] 06-20-1997 trivalent poliovirus vaccine, live, oral Kinjal Cleveland MD Work Phone: [facility] 04-04-1997 diphtheria, tetanus toxoids and acellular pertussis vaccine, unspecified formulation Kinjal Cleveland MD Work Phone: [facility] 04-04-1997 DTaP [facility] 04-04-1997 haemophilus influenz ae type b vaccine, conjugate unspecified formulation [facility] 04-04-1997 poliovirus vaccine, inactivated [facility] 04-04-1997 trivalent poliovirus vaccine, live, oral Kinjal Cleveland MD Work Phone: [facility] 01-24-1997 diphtheria, tetanus toxoids and acellular pertussis vaccine, unspecified formulation Kinjal Cleveland MD Work Phone: [facility] 01-24-1997 DTaP Elton Bauer [facility] 01-24-1997 haemophilus influenz ae type b vaccine, conjugate unspecified formulation Elton Bauer [facility] 01-24-1997 poliovirus vaccine, inactivated Elton Lizette [facility] 01-24-1997 trivalent poliovirus vaccine, live, oral Kinjal Cleveland MD Work Phone: [facility] Payers Date Payer Category Payer Self-pay 2023 [employer] [facility] ANTH TRADITIONAL [id number] 2023 Unknown [id number]. [id number] 2023 Unknown [id number] 2020 Medicaid UHC MANAGED [facility] MEDICAID COMMUNITY PLAN [id number] 2020-Present [id number] [id number] 2020 Medicaid [facility] MANAGED [facility] MEDICAID COMMUNITY PLAN [id number] 2020-Present [phone] [address] [place] [address] [id number] [id number] 2020 Medicare UHC MEDICARE [facility] DUAL COMPLETE [id number] 2020-Present [id number]. [id number] 2018 Private Health Insurance [id number]. [id number] 2016 Medicaid [id number] 2.16.840.1.571343.3.249. 13 1996 Unknown [id number] 2.16.840.1.308256.3.579. 2.902 1996 Unknown [id number] 2.16.840.1.708471.3.579. 2.903 1996 Unknown [id number] 2.16.840.1.634297.3.579. 2.903 1996 Unknown [id number] 2.16.840.1.791169.3.579. 2.1244 1996 Unknown [id number] 2.16.840.1.377215.3.579. 2.4 1996 Unknown [id number] 2.16.840.1.468332.3.579. 2.1244 1996 Unknown [id number] 2.16.840.1.369065.3.579. 2.479 1996 Unknown [id number] 2.16.840.1.098152.3.579. 2.479 1996 Unknown [id number] 2.16.840.1.671928.3.579. 2.479 1996 Unknown [id number] 2.16.840.1.011503.3.579. 2.1243 1996 Unknown [id number] 2.16.840.1.708551.3.579. 2.1243 1996 Unknown [id number] 2.16.840.1.405282.3.579. 2.1243 1996 Unknown [id number] 2.840.1.926107.3.579. 2.1243 1996 Unknown [id number] 2..840.1.153312.3.579. 2.1243 Unknown [id number] 2.840.1.614639.3.249. 13 Unknown [id number] 2.840.1.673215.3.579. 2.462 Unknown [id number] 2.840.1.996466.3.579. 2.462 Unknown [id number] 2.840.1.202803.3.579. 2.462 Unknown [id number] 2.840.1.838936.3.579. 2.462 Unknown [id number] 2.840.1.569738.3.579. 2.462 Unknown [id number] 2.840.1.850600.3.579. 2.462 Unknown [id number] 2.840.1.551891.3.579. 2.462 Unknown [id number] 2.840.1.413124.3.579. 2.462 Unknown [id number] 2.840.1.410700.3.579. 2.462 Unknown [id number] 2.840.1.710506.3.579. 2.462 Unknown [id number] 2.840.1.333138.3.579. 2.462 Unknown [id number] 2.840.1.883412.3.579. 2.462 Unknown [id number] 2.840.1.161024.3.579. 2.462 Unknown [id number] 2.840.1.057612.3.579. 2.462 Unknown [id number] 2.840.1.961371.3.579. 2.462 Unknown [id number] 2.16.840.1.547724.3.579. 2.462 Unknown [id number] 2.16.840.1.748349.3.579. 2.462 Unknown [id number] 2.16.840.1.084302.3.579. 2.462 Unknown [id number] 2.16.840.1.336424.3.579. 2.462 Unknown [id number] 2.16.840.1.976944.3.579. 2.462 Unknown [id number] 2.16.840.1.445518.3.579. 2.462 Unknown [id number] 2.16.840.1.481826.3.579. 2.462 Unknown [id number] 2.16.840.1.838122.3.579. 2.462 Unknown [id number] 2.16.840.1.140116.3.579. 2.462 Unknown [id number] 2.16.840.1.976772.3.579. 2.462 Unknown [id number] 2.16.840.1.411269.3.579. 2.462 Social History Date Type Detail Facility Start: 11-13-2017 End: 11-15-2024 Tobacco smoking status [facility] Never smoker [facility] Start: 1995 Sex Assigned At Not on file [facility] Start: 08-23-2018 [facility] Start: 10-02-2019 End: 07-21-2021 Alcohol intake Current non-drinker of alcohol (finding) [facility] Start: 10-27-2020 End: 11-15-2024 Tobacco use and exposure Never used [facility] Start: 05-13-2024 End: 01-12-2025 Exposure to SARS-CoV-2 (event) Not sure [facility] Start: 01-19-2021 End: 05-01-2021 Alcohol intake Lifetime non-drinker (finding) [employer] Work Phone: Start: 01-16-2021 End: 11-26-2021 History SDOH Alcohol Frequency 1 [facility] Work Phone: Start: 07-04-2021 History SDOH Social Connections Get Together 3 [facility] Start: 07-04-2021 History SDOH Financial 5 [facility] Start: 07-04-2021 History SDOH Transport Med 2 [facility] Start: 05-23-2024 Tobacco smoking status NHIS Tobacco smoking consumption unknown [facility] Start: 11-15-2024 End: 03-13-2025 Gender identity Not on file [facility] Work Phone: Start: 11-15-2024 End: 03-13-2025 Alcoholic beverage intake Current drinker of alcohol (finding) [facility] Work Phone: Start: 11-15-2024 End: 03-13-2025 History of Social function [facility] Work Phone: Start: 11-15-2024 Alcohol Comment rare [facility] Work Phone: Start: 1995 Sex assigned at Female [facility] Start: 01-12-2025 Gender identity Identifies as female gender (finding) [facility] Work Phone: Start: 01-12-2025 Sexual orientation Heterosexual (fin ding) [facility] Work Phone: Start: 01-13-2021 End: 07-03-2022 Sex Female (finding) [facility] Start: 07-03-2022 Sex Female [facility] NEGATED: Highlighted rowStart: NINF History of tobacco use Passive smoker [facility] Work Phone: NEGATED: Highlighted row Not [facility] Medical Equipment Procedure Code Equipment Code Equipment Origin al Text Equipment Identifier Dates Insertion, vascular access port ([id number]) Vascular port/catheter [id number] FDA Start: 02-13-2025 Goals Date Patient Goal Desired Activity /State Functional Status Date Assessment Result Facility 06-18-2025 Functional status [facility] 06-18-2025 [facility] Work Phone: 06-18-2025 [place] - suicide s everity rating scale screener - recent [C-SSRS] [facility] Work Phone: 03-13-2025 Patient Health [facility] ionnaire 2 item (PHQ-2) [Reported] [facility] Work Phone: 01-30-2025 Patient Health Quest ionnaire 2 item (PHQ-2) [Reported] [facility] Work Phone: [facility] Mental Status Date Assessment Result Facility 02-13-2025 Cognitive function Voice/Name [facility] Work Phone: 02-13-2025 Cognitive function Patient Olga ibrahim Person;Place;Time [facility] Work Phone: Clinical Notes 01-19-2021 to 06-18-2025 Mariela Schulz, DO - 06/18/2025 9:54 PM ESTMariela Schulz, DO - 06/18/2025 9:54 PM EST Note Date & Type Note Facility 06-18-2025 Physician Emergency department Note HPI Chief Complaint Patient presents with Abdominal Pain Pt here with c/o epigastric pain and nausea x 1-2 hours, pt is currently undergoing chemo or breast ca 29-year-old female presently being treated for breast cancer presents with 1 to 2-hour history of midepigastric pain associate with nausea and vomiting. Patient states she is mildly symptomatic at present. Denies any diarrhea. Patient is scheduled for her next dose of chemo in 2 days. Patient will have an IV established and be hydrated. She will also be given pantoprazole and Zofran. The patient refused 1 g of Rocephin. I did speak to the oncologist on-call and he suggested the patient receive more fluids to address her heart rate. Patient had already received 1 L. Patient will be given a second liter and reassess. He felt if the heart rate did come down he can see the patient in the office tomorrow. History provided by: Patient Patient History Medical History[1] Surgical History[2] Family History[3] Social History[4] Physical Exam ED Triage Vitals [06/18/25 2130] Temperature Heart Rate Respirations BP 37.4 C (99.3 F) (!) 124 20 127/80 Pulse Ox Temp src Heart Rate Source Patient Position 98 % -- -- -- BP Location FiO2 (%) -- -- Physical Exam Vitals and nursing note reviewed. Constitutional: Appearance: Normal appearance. HENT: Head: Normocephalic and atraumatic. Right Ear: Tympanic membrane normal. Left Ear: Tympanic membrane normal. Nose: Nose normal. Mouth/Throat: Mouth: Mucous membranes are moist. Eyes: Extraocular Movements: Extraocular movements intact. Pupils: Pupils are equal, round, and reactive to light. Cardiovascular: Rate and Rhythm: Regular rhythm. Tachycardia present. Pulmonary: Effort: Pulmonary effort is normal. Breath sounds: Normal breath sounds. Abdominal: General: Abdomen is flat. Palpations: Abdomen is soft. Tenderness: There is abdominal tenderness in the epigastric area and periumbilical area. Musculoskeletal: General: Normal range of motion. Cervical back: Normal range of motion. Skin: General: Skin is warm and dry. Neurological: General: No focal deficit present. Mental Status: She is alert and oriented to person, place, and time. Labs Reviewed CBC WITH AUTO DIFFERENTIAL - Abnormal Result Value WBC 10.3 nRBC 0.0 RBC 3.56 (*) Hemoglobin 11.5 (*) Hematocrit 35.3 (*) MCV 99 MCH 32.3 MCHC 32.6 RDW 17.6 (*) Platelets 127 (*) Neutrophils % 87.6 Immature Granulocytes %, Automated 0.3 Lymphocytes % 7.6 Monocytes % 3.8 Eosinophils % 0.4 Basophils % 0.3 Neutrophils Absolute 9.06 (*) Immature Granulocytes Absolute, Automated 0.03 Lymphocytes Absolute 0.78 (*) Monocytes Absolute 0.39 Eosinophils Absolute 0.04 Basophils Absolute 0.03 MAGNESIUM - Abnormal Magnesium 1.42 (*) COMPREHENSIVE METABOLIC PANEL - Abnormal Glucose 125 (*) Sodium 138 Potassium 3.4 (*) Chloride 102 Bicarbonate 28 Anion Gap 11 Urea Nitrogen 13 Creatinine 0.70 eGFR >90 Calcium 9.4 Albumin 4.2 Alkaline Phosphatase 83 Total Protein 6.7 AST 37 Bilirubin, Total 0.4 ALT 41 URINALYSIS WITH REFLEX CULTURE - Abnormal Color, Urine Light-Yellow Appearance, Urine Clear Specific [place], Urine 1.038 (*) pH, Urine 6.0 Protein, Urine NEGATIVE Glucose, Urine Normal Blood, Urine NEGATIVE Ketones, Urine NEGATIVE Bilirubin, Urine NEGATIVE Urobilinogen, Urine Normal Nitrite, Urine NEGATIVE Leukocyte Esterase, Urine NEGATIVE LACTATE - Normal Lactate 1.2 Narrative: Venipuncture immediately after or during the administration of Metamizole may lead to falsely low results. Testing should be performed immediately prior to Metamizole dosing. BLOOD CULTURE URINALYSIS WITH REFLEX CULTURE Narrative: The following orders were created for panel order Urinalysis with Reflex Culture. Procedure Abnormality Status --------- ------ Urinalysis with Reflex C...[[id number]] Abnormal Final result Extra Urine Aaron Tube[[id number]] Please view results for these tests on the individual orders. EXTRA URINE AARON TUBE XR chest 1 view Final Result 1. No focal consolidation. MACRO: None Signed by: Astrid Zaidi 06/19/2025 12:33 AM Dictation workstation: [id number] CT abdomen pelvis w IV contrast Final Result No acute abnormality within the abdomen or pelvis. MACRO: None. Signed by: Sloan Cardenas 06/18/2025 11:46 PM Dictation workstation: [id number] ED Course & MDM ED Course as of 06/19/25205Jun 18, 2025 2156 Twelve-lead EKG interpreted by myself at 2135 1 sinus tachycardia 115 2 no ectopy 3 normal axis [MS] ED Course User Index [MS] Mariela Schulz, Diagnoses as of 06/19/25205 Hypomagnesemia Generalized abdominal pain No data recorded Medical Decision Making 1 resume home medication 2 follow-up in the office tomorrow if symptoms worsen return to ED Procedure Procedures [1] Past Medical History: Diagnosis Date Encounter for gynecological examination (general) (routine) without abnormal findings Pap test, as part of routine gynecological examination Other conditions influencing health status Menstruation [2] Past Surgical History: Procedure Laterality Date SECTION, LOW TRANSVERSE 12-01-16 05-11-19 01-17-21 OTHER SURGICAL HISTORY 06/09/2019 section [3] Family History Problem Relation Name Age of Onset Diverticulitis Mother Colon cancer Father's Brother Lung cancer Paternal Grandfather Alcohol abuse Father Jonathan [4] Social History Tobacco Use Smoking status: Never Passive exposure: Never Smokeless tobacco: Never Vaping Use Vaping status: Never Used Substance Use Topics Alcohol use: Yes Comment: rare Drug use: Never Mariela Schulz DO 06/19/25 0207 [facility] Work Phone: 06-18-2025 Emergency department Note HPI Chief Complaint Patient presents with Abdominal Pain Pt here with c/o epigastric pain and nausea x 1-2 hours, pt is currently undergoing chemo or breast ca 29-year-old female presently being treated for breast cancer presents with 1 to 2-hour history of midepigastric pain associate with nausea and vomiting. Patient states she is mildly symptomatic at present. Denies any diarrhea. Patient is scheduled for her next dose of chemo in 2 days. Patient will have an IV established and be hydrated. She will also be given pantoprazole and Zofran. The patient refused 1 g of Rocephin. I did speak to the oncologist on-call and he suggested the patient receive more fluids to address her heart rate. Patient had already received 1 L. Patient will be given a second liter and reassess. He felt if the heart rate did come down he can see the patient in the office tomorrow. History provided by: Patient Patient History Medical History[1] Surgical History[2] Family History[3] Social History[4] Physical Exam ED Triage Vitals [06/18/25 2130] Temperature Heart Rate Respirations BP 37.4 C (99.3 F) (!) 124 20 127/80 Pulse Ox Temp src Heart Rate Source Patient Position 98 % -- -- -- BP Location FiO2 (%) -- -- Physical Exam Vitals and nursing note reviewed. Constitutional: Appearance: Normal appearance. HENT: Head: Normocephalic and atraumatic. Right Ear: Tympanic membrane normal. Left Ear: Tympanic membrane normal. Nose: Nose normal. Mouth/Throat: Mouth: Mucous membranes are moist. Eyes: Extraocular Movements: Extraocular movements intact. Pupils: Pupils are equal, round, and reactive to light. Cardiovascular: Rate and Rhythm: Regular rhythm. Tachycardia present. Pulmonary: Effort: Pulmonary effort is normal. Breath sounds: Normal breath sounds. Abdominal: General: Abdomen is flat. Palpations: Abdomen is soft. Tenderness: There is abdominal tenderness in the epigastric area and periumbilical area. Musculoskeletal: General: Normal range of motion. Cervical back: Normal range of motion. Skin: General: Skin is warm and dry. Neurological: General: No focal deficit present. Mental Status: She is alert and oriented to person, place, and time. Labs Reviewed CBC WITH AUTO DIFFERENTIAL - Abnormal Result Value WBC 10.3 nRBC 0.0 RBC 3.56 (*) Hemoglobin 11.5 (*) Hematocrit 35.3 (*) MCV 99 MCH 32.3 MCHC 32.6 RDW 17.6 (*) Platelets 127 (*) Neutrophils % 87.6 Immature Granulocytes %, Automated 0.3 Lymphocytes % 7.6 Monocytes % 3.8 Eosinophils % 0.4 Basophils % 0.3 Neutrophils Absolute 9.06 (*) Immature Granulocytes Absolute, Automated 0.03 Lymphocytes Absolute 0.78 (*) Monocytes Absolute 0.39 Eosinophils Absolute 0.04 Basophils Absolute 0.03 MAGNESIUM - Abnormal Magnesium 1.42 (*) COMPREHENSIVE METABOLIC PANEL - Abnormal Glucose 125 (*) Sodium 138 Potassium 3.4 (*) Chloride 102 Bicarbonate 28 Anion Gap 11 Urea Nitrogen 13 Creatinine 0.70 eGFR >90 Calcium 9.4 Albumin 4.2 Alkaline Phosphatase 83 Total Protein 6.7 AST 37 Bilirubin, Total 0.4 ALT 41 URINALYSIS WITH REFLEX CULTURE - Abnormal Color, Urine Light-Yellow Appearance, Urine Clear Specific [place], Urine 1.038 (*) pH, Urine 6.0 Protein, Urine NEGATIVE Glucose, Urine Normal Blood, Urine NEGATIVE Ketones, Urine NEGATIVE Bilirubin, Urine NEGATIVE Urobilinogen, Urine Normal Nitrite, Urine NEGATIVE Leukocyte Esterase, Urine NEGATIVE LACTATE - Normal Lactate 1.2 Narrative: Venipuncture immediately after or during the administration of Metamizole may lead to falsely low results. Testing should be performed immediately prior to Metamizole dosing. BLOOD CULTURE URINALYSIS WITH REFLEX CULTURE Narrative: The following orders were created for panel order Urinalysis with Reflex Culture. Procedure Abnormality Status --------- ------ Urinalysis with Reflex C...[[id number]] Abnormal Final result Extra Urine Aaron Tube[[id number]] Please view results for these tests on the individual orders. EXTRA URINE AARON TUBE XR chest 1 view Final Result 1. No focal consolidation. MACRO: None Signed by: Astrid Zaidi 06/19/2025 12:33 AM Dictation workstation: [id number] CT abdomen pelvis w IV contrast Final Result No acute abnormality within the abdomen or pelvis. MACRO: None. Signed by: Sloan Cardenas 06/18/2025 11:46 PM Dictation workstation: [id number] ED Course & MDM ED Course as of 06/19/25205Jun 18, 2025 215 Twelve-lead EKG interpreted by myself at 2134 1 sinus tachycardia 115 2 no ectopy 3 normal axis [MS] ED Course User Index [MS] Mariela Schulz DO Diagnoses as of 06/19/25205 Hypomagnesemia Generalized abdominal pain No data recorded Medical Decision Making 1 resume home medication 2 follow-up in the office tomorrow if symptoms worsen return to ED Procedure Procedures [1] Past Medical History: Diagnosis Date Encounter for gynecological examination (general) (routine) without abnormal findings Pap test, as part of routine gynecological examination Other conditions influencing health status Menstruation [2] Past Surgical History: Procedure Laterality Date SECTION, LOW TRANSVERSE 12-01-16 05-11-19 01-17-21 OTHER SURGICAL HISTORY 06/09/2019 section [3] Family History Problem Relation Name Age of Onset Diverticulitis Mother Colon cancer Father's Brother Lung cancer Paternal Grandfather Alcohol abuse Father Jonathan [4] Social History Tobacco Use Smoking status: Never Passive exposure: Never Smokeless tobacco: Never Vaping Use Vaping status: Never Used Substance Use Topics Alcohol use: Yes Comment: rare Drug use: Never Mariela Schulz DO 06/19/25206 documented in this encounter [facility] Work Phone: 05-30-[address] [facility] 05-09-[address] [facility] 04-18-[address] [facility] 04-18-2025 Progress note Note Date/Time April 18, 2025 9:33am [facility] [place] [address] OFFICE VISIT Date of Service: 04/18/25910 MR#: [id number] Acct: [id number] Name: SHAUNA RAINEY Rep #: [id number] : 1995 From: Ara steele MD Age/Sex: 29/F Location: [facility] Status: Signed HPI Subjective Date of Service 04/18/25 Chief Complaint breast cancer History of Present [...] 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 January 25, [...] FINAL ASSESSMENT BI-RADS 6: KNOWN BIOPSY-PROVEN MALIGNANCY. February 14, 2025 bone scan: IMPRESSION: No scintigraphic evidence of osseous metastatic disease. February 21, 2025 chest abdomen and pelvis CT: IMPRESSION: Small umbilical hernia containing fat. Follicles are seen in both ovaries more prominent on the left side. Treatment summary and response: TCHP March 07, 2025 [facility] Medical History Encounter for education Wears glasses Non-smoker Shortness of breath on exertion History of echocardiogram Anemia Axillary lymphadenopathy Surgical History History of wisdom tooth extraction delivery delivered Family History Other No pertinent [...] addt'l complaints, except as documented, as per HPI and breast mass; Denies cough or dyspnea Gastrointestinal Gastrointestinal: Reports systems reviewed and no addt'l complaints, except as documented; Denies change in bowel habits, hematochezia or melena Genitourinary Genitourinary: Reports systems reviewed and no addt'l complaints, except as documented; Denies dysuria or hematuria Musculoskeletal Musculoskeletal: Reports [...] complaints, except as documented Intake Vital Signs 03/29/25 09:07 04/18/25 09:13 04/18/25 09:20 Height 5 ft 5 ft 5 ft Weight: 75.863 kg BMI 32.6 BP 123/80 H Blood Pressure Location Lt brachial Position Sitting Respiration 18 Pulse 88 Pulse Source Monitor Temp 98.3 F Temperature Source Temporal Artery Pulse Oximetry (%) 96 Oxygen Delivery Method room air Intake Is patient in pain?: No Allergies No Known Allergies Allergy (Verified 04/18/25 09:17) Medications ?Medication ?Instructions ?Recorded ?Confirmed ?Type acetaminophen 500 mg capsule 1,000 mg PO Q6H PRN pain 02/12/25 04/18/25 History dexamethasone 4 mg tablet 8 mg (2 x 4 mg) PO .COMPLEX #60 02/28/25 04/18/25 Rx tabs lidocaine-prilocaine 2.5 %-2.5 % 1 applic topical ONCE PRN Port 02/28/25 04/18/25 Rx topical cream access port access 30 days # 30 grams ondansetron 8 mg disintegrating 8 mg PO Q8H PRN nausea and 02/28/25 04/18/25 Rx tablet vomiting #30 tabs prochlorperazine maleate 10 mg 10 mg PO Q6H PRN nausea and 02/28/25 04/18/25 Rx tablet vomiting #30 tabs Have you fallen in the past year?: No Central Venous Access Central Venous Access: Yes Port/PICC: Port CBC, CMP April 18, 2025 reviewed in EMR Exam Physical Exam Narrative ECOG 1 Const alert, oriented x3, no apparent distress and average body habitus General Appearance: cooperative HEENT normocephalic Face and Sinus: normal facial exam Mouth: oral and palatal mucosa normal Eyes General Eye: normal appearance of both eyes Neck no lymphadenopathy and no JVD Lymph Lymphatic: no lymphadenopathy noted Chest palpation of breasts normal Chest: vascular access Resp clear to auscultation bilaterally Cardio regular [...] no focal motor deficits Coordination / Balance: onzhwb-te-zbwe test normal Speech: speech normal Gait (Neuro): normal gait Psych mental status grossly normal Mood & Affect: anxious Coding Level of Care Code Off vis,est,level 4 Exam Problem Focused Diagnoses HER2-positive carcinoma of left breast C50.912; Z17.31 Axillary lymphadenopathy R59.0 Assessment and Plan Assessment and Plan (1) HER2-positive carcinoma of left breast: Status: Acute (2) Axillary lymphadenopathy: Status: Acute Plan 29-year-old female, premenopausal at diagnosis, with multifocal (at least 9 lesions identified on MRI of the breast) invasive ductal cancer of the left breast ER negative, IL negative, HER2/camila overexpressed 3+ with an abnormal leftaxillary lymph node on MRI but not by ultrasound and not accessible to biopsy. This is at least locally advanced cancer. Staging by CAT scan of the chest and abdomen and bone scan showed no evidence to suggest distant metastatic disease. PET scan was denied by insurance Started systemic neoadjuvant chemoimmunotherapy with TCHP March 07, 2025. Experienced expected side effects with manageable nausea, diarrhea, bony pains from growth factor support but no grade 3 or 4 toxicities. Chronic comorbid conditions: Headaches, anemia, impaired glucose tolerance (on steroids). Plan: 1. To continue neoadjuvant systemic chemoimmunotherapy with TCHP for a total 6 cycles to be followed by definitive surgery. Due to the multifocality of her cancer a total mastectomy is advisable. 2. Continue with supportive treatments as earlier discussed including use of antiemetics, antidiarrheals and nonnarcotic analgesics. 3. Noted hyperglycemia while on oral steroids indicated impaired glucose tolerance, discussed limiting carbohydrates and sweets at least on the 3 days ofprescribed steroids. Patient was seen with her , impression and plan discussed Ara Franklin MD [employer] Trimmer, [facility] Divisions of Medical Oncology & Hematology Department of Internal Medicine [place] [address] This note was generated using a voice [...] you fallen in the past year?: No 04/18/25 0933 <Electronically signed by Ara hawley MD> Date _ Ara Franklin MD Cosigner Signature: Date (if applicable) CC: ~ [place] [employer] Work Phone: 1(747) 535-217508-21-2025 [facility] [address] [place] [address]. [place] [address] OFFICE VISIT Date of Service: 03/29/2501 MR#: [id number] Acct: [id number] Name: SHAUNA RANIEY Rep #: [id number] : 1995 From: Ara steele MD Age/Sex: 29/F Location: [facility] Status: Signed HPI Subjective Date of Service 03/29/25 Chief Complaint breast cancer History of Present [...] 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 January 25, [...] FINAL ASSESSMENT BI-RADS 6: KNOWN BIOPSY-PROVEN MALIGNANCY. February 14, 2025 bone scan: IMPRESSION: No scintigraphic evidence of osseous metastatic disease. February 21, 2025 chest abdomen and pelvis CT: IMPRESSION: Small umbilical hernia containing fat. Follicles are seen in both ovaries more prominent on the left side. Treatment summary and response: [facility] March 07, 2025 [facility] Medical History Encounter for education Wears glasses Non-smoker Shortness of breath on exertion History of echocardiogram Anemia Axillary lymphadenopathy Surgical History History of wisdom tooth extraction delivery delivered Family History Other No pertinent [...] documented, as per HPI, breast mass and other Details: Breast lump feels softer and inverted nipple is more flat ; Denies cough or dyspnea Gastrointestinal Gastrointestinal: Reports systems reviewed and no addt'l complaints, except as documented, diarrheaand other Details: Has had diarrhea on and off, using Imodium with some relief. Nausea followed chemotherapy by 2 to 3 days lasted a few days and eventually resolved ; Denies hematochezia or melena Genitourinary Genitourinary: Reports systems reviewed and no addt'l complaints, except as documented; Denies dysuria or hematuria Musculoskeletal Musculoskeletal: Reports systems reviewed and no addt'l complaints, except as documented and other Details: Had aches and pains a few days following her Neulasta injection, lasted about 4 days then resolved. Managed with Claritin and Tylenol ; Denies back pain Integumentary Integumentary: Reports systems [...] complaints, except as documented Intake Vital Signs 02/28/25 16:00 03/07/25 08:03 03/20/25 15:48 03/29/25 09:02 03/29/25 09:07 Height 5 ft 5 ft 5 ft 5 ft 5 ft Weight: 73.936 kg 74.446 kg BMI 31.8 32.0 BP 93/66 103/70 Blood Pressure Location Lt brachial Lt brachial Position Sitting Sitting Respiration 18 18 Pulse 65 86 Pulse Source Monitor Monitor Temp 98.7 F 98.5 F Temperature Source Temporal Artery Temporal Artery Pulse Oximetry (%) 98 95 Oxygen Delivery Method room air room air Intake Is patient in pain?: No Allergies No Known Allergies Allergy (Verified 03/29/25 09:06) Medications ?Medication ?Instructions ?Recorded ?Confirmed ?Type acetaminophen 500 mg capsule 1,000 mg PO Q6H PRN pain 02/12/25 03/29/25 History dexamethasone 4 mg tablet 8 mg (2 x 4 mg) PO .COMPLEX #60 02/28/25 03/29/25 Rx tabs lidocaine-prilocaine 2.5 %-2.5 % 1 applic topical ONCE PRN Port 02/28/25 03/29/25 Rx topical cream access port access 30 days # 30 grams ondansetron 8 mg disintegrating 8 mg PO Q8H PRN nausea and 02/28/25 03/29/25 Rx tablet vomiting #30 tabs prochlorperazine maleate 10 mg 10 mg PO Q6H PRN nausea and 02/28/25 03/29/25 Rx tablet vomiting #30 tabs Central Venous Access Central Venous Access: Yes Port/PICC: Port CBC, CMP March 29, 2025 reviewed in EMR Exam Physical Exam Narrative ECOG 0 Const alert, oriented x3, no apparent distress and average body habitus General Appearance: cooperative HEENT normocephalic Face and Sinus: normal facial exam Mouth: oral and palatal mucosa normal Eyes General Eye: normal appearance of both eyes Neck no lymphadenopathy and no JVD Lymph Lymphatic: no lymphadenopathy noted Chest palpation of breasts normal Chest: vascular access Resp clear to auscultation bilaterally Cardio regular [...] no focal motor deficits Coordination / Balance: rhmunz-dy-tflb test normal Speech: speech normal Gait (Neuro): normal gait Psych mental status grossly normal Mood & Affect: anxious Coding Level of Care Code Off vis,est,level 4 Exam Problem Focused Diagnoses HER2-positive carcinoma of left breast C50.912; Z17.31 Axillary lymphadenopathy R59.0 Impaired glucose tolerance R73.02 Assessment and Plan Assessment and Plan (1) HER2-positive carcinoma of left breast: Status: Acute (2) Axillary lymphadenopathy: Status: Acute (3) Impaired glucose tolerance: Status: Acute Comment: While on oral steroid Plan 29-year-old female, premenopausal at diagnosis, with multifocal (at least 9 lesions identified on MRI of the breast) invasive ductal cancer of the left breast ER negative, IL negative, HER2/camila overexpressed 3+ with an abnormal leftaxillary lymph node on MRI but not by ultrasound and not accessibleto biopsy. This is at least locally advanced cancer. Staging by CAT scan of the chest and abdomen and bone scan showed no evidence to suggest distant metastatic disease. PET scan was denied by insurance Started systemic neoadjuvant chemoimmunotherapy with TCHP March 07, 2025. Experienced expected side effects with manageable nausea, diarrhea, bony pains from growth factor support but no grade 3 or 4 toxicities. Chronic comorbid conditions: Headaches, anemia, impaired glucose tolerance (on steroids). Plan: 1. To continue neoadjuvant systemic chemoimmunotherapy with TCHP for a total 6 cycles to be followed by definitive surgery. Due to the multifocality of her cancer a total mastectomy is advisable. 2. Continue with supportive treatments as earlier discussed including use of antiemetics, antidiarrheals and nonnarcotic analgesics. 3. Noted hyperglycemia while on oral steroids indicated impaired glucose tolerance, discussed limiting carbohydrates and sweets at least on the 3 days ofprescribed steroids. Patient was seen with her , impression and plan discussed Ara Franklin MD Top Trimmer, [facility] Divisions of Medical Oncology & Hematology Department of Internal Medicine [place] [address] This note was generated using a voice recognition system software. Although itwas reviewed by the author prior to finalization, it may still contain incorrectwords, spelling, and punctuation that were not noted when reviewing prior to saving. If a clinically significant typo or inaccurately typed phrase is noted, please notify the author. 03/29/25 0923 chandan MATOS> Date _ Ara Franklin MD Cosigner Signature: Date (if applicable) CC: ~ [facility]08-21-2025 Progress note Author Ara Franklin [facility] Note Date/Time March 29, 2025 9: 23am [facility] [place] [phone] OFFICE VISIT Date of Service: 03/29/25 0901 MR#: [id number] Acct: [id number] Name: SHAUNA RAINEY Rep #: [id number] : 1995 From: Ara steele MD Age/Sex: 29/F Location: [facility] Status: Signed HPI Subjective Date of Service 03/29/25 Chief Complaint breast cancer History of Present [...] 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 January 25, [...] FINAL ASSESSMENT BI-RADS 6: KNOWN BIOPSY-PROVEN MALIGNANCY. February 14, 2025 bone scan: IMPRESSION: No scintigraphic evidence of osseous metastatic disease. February 21, 2025 chest abdomen and pelvis CT: IMPRESSION: Small umbilical hernia containing fat. Follicles are seen in both ovaries more prominent on the left side. Treatment summary and response: [facility] March 07, 2025 [facility] Medical History Encounter for education Wears glasses Non-smoker Shortness of breath on exertion History of echocardiogram Anemia Axillary lymphadenopathy Surgical History History of wisdom tooth extraction delivery delivered Family History Other No pertinent [...] documented, as per HPI, breast mass and other Details: Breast lump feels softer and inverted nipple is more flat ; Denies cough or dyspnea Gastrointestinal Gastrointestinal: Reports systems reviewed and no addt'l complaints, except as documented, diarrhea and other Details: Has had diarrhea on and off, using Imodium with some relief. Nausea followed chemotherapy by 2 to 3 days lasted a few days and eventually resolved ; Denies hematochezia or melena Genitourinary Genitourinary: Reports systems reviewed and no addt'l complaints, except as documented; Denies dysuria or hematuria Musculoskeletal Musculoskeletal: Reports systems reviewed and no addt'l complaints, except as documented and other Details: Had aches and pains a few days following her Neulasta injection, lasted about 4 days then resolved. Managed with Claritin and Tylenol ; Denies back pain Integumentary Integumentary: Reports systems [...] complaints, except as documented Intake Vital Signs 02/28/25 16:00 03/07/25 08:03 03/20/25 15:48 03/29/25 09:02 03/29/25 09:07 Height 5 ft 5 ft 5 ft 5 ft 5 ft Weight: 73.936 kg 74.446 kg BMI 31.8 32.0 BP 93/66 103/70 Blood Pressure Location Lt brachial Lt brachial Position Sitting Sitting Respiration 18 18 Pulse 65 86 Pulse Source Monitor Monitor Temp 98.7 F 98.5 F Temperature Source Temporal Artery Temporal Artery Pulse Oximetry (%) 98 95 Oxygen Delivery Method room air room air Intake Is patient in pain?: No Allergies No Known Allergies Allergy (Verified 03/29/25 09:06) Medications ?Medication ?Instructions ?Recorded ?Confirmed ?Type acetaminophen 500 mg capsule 1,000 mg PO Q6H PRN pain 02/12/25 03/29/25 History dexamethasone 4 mg tablet 8 mg (2 x 4 mg) PO .COMPLEX #60 02/28/25 03/29/25 Rx tabs lidocaine-prilocaine 2.5 %-2.5 % 1 applic topical ONCE PRN Port 02/28/25 03/29/25 Rx topical cream access port access 30 days # 30 grams ondansetron 8 mg disintegrating 8 mg PO Q8H PRN nausea and 02/28/25 03/29/25 Rx tablet vomiting #30 tabs prochlorperazine maleate 10 mg 10 mg PO Q6H PRN nausea and 02/28/25 03/29/25 Rx tablet vomiting #30 tabs Central Venous Access Central Venous Access: Yes Port/PICC: Port CBC, CMP March 29, 2025 reviewed in EMR Exam Physical Exam Narrative ECOG 0 Const alert, oriented x3, no apparent distress and average body habitus General Appearance: cooperative HEENT normocephalic Face and Sinus: normal facial exam Mouth: oral and palatal mucosa normal Eyes General Eye: normal appearance of both eyes Neck no lymphadenopathy and no JVD Lymph Lymphatic: no lymphadenopathy noted Chest palpation of breasts normal Chest: vascular access Resp clear to auscultation bilaterally Cardio regular [...] no focal motor deficits Coordination / Balance: rswkdm-hr-obis test normal Speech: speech normal Gait (Neuro): normal gait Psych mental status grossly normal Mood & Affect: anxious Coding Level of Care Code Off vis,est,level 4 Exam Problem Focused Diagnoses HER2-positive carcinoma of left breast C50.912; Z17.31 Axillary lymphadenopathy R59.0 Impaired glucose tolerance R73.02 Assessment and Plan Assessment and Plan (1) HER2-positive carcinoma of left breast: Status: Acute (2) Axillary lymphadenopathy: Status: Acute (3) Impaired glucose tolerance: Status: Acute Comment: While on oral steroid Plan 29-year-old female, premenopausal at diagnosis, with multifocal (at least 9 lesions identified on MRI of the breast) invasive ductal cancer of the left breast ER negative, IL negative, HER2/camila overexpressed 3+ with an abnormal leftaxillary lymph node on MRI but not by ultrasound and not accessible to biopsy. This is at least locally advanced cancer. Staging by CAT scan of the chest and abdomen and bone scan showed no evidence to suggest distant metastatic disease. PET scan was denied by insurance Started systemic neoadjuvant chemoimmunotherapy with TCHP March 07, 2025. Experienced expected side effects with manageable nausea, diarrhea, bony pains from growth factor support but no grade 3 or 4 toxicities. Chronic comorbid conditions: Headaches, anemia, impaired glucose tolerance (on steroids). Plan: 1. To continue neoadjuvant systemic chemoimmunotherapy with TCHP for a total 6 cycles to be followed by definitive surgery. Due to the multifocality of her cancer a total mastectomy is advisable. 2. Continue with supportive treatments as earlier discussed including use of antiemetics, antidiarrheals and nonnarcotic analgesics. 3. Noted hyperglycemia while on oral steroids indicated impaired glucose tolerance, discussed limiting carbohydrates and sweets at least on the 3 days ofprescribed steroids. Patient was seen with her , impression and plan discussed Ara Franklin MD Top Trimmer, [facility] Divisions of Medical Oncology & Hematology Department of Internal Medicine [facility] [place] [address] This note was generated using a voice recognition system software. Although itwas reviewed by the author prior to finalization, it may still contain incorrectwords, spelling, and punctuation that were not noted when reviewing prior to saving. If a clinically significant typo or inaccurately typed phrase is noted, please notify the author. 03/29/25 0923 <Electronically signed by Ara hawley MD> Date _ Ara Franklin MD Cosigner Signature: Date (if applicable) CC: ~ [place] [employer] Work Phone: 1(114) 882-692708-05-2025 History of Present illness Narrative* Ryan Cochran PA-C - 03/13/2025 2:40 PM EDT Subjective Patient ID: Shauna Rainey is a 29 y.o. female who presents for Follow-up (C/O BURNING UPON URINATION, FREQUENCY X 3 DAYS, HAD 100.8 FEVER ON 03/12/25) HPI Urinary symptoms x 3 days Dysuria, freq, hx of fever on 03/12/25 - since resolved Symptoms improved but not resolved She did recently start treatment for breast cancer In office urine - trace blood but neg leukocytes/ nitrates Will send to culture Given symptoms improving and dip findings discussed treating supportively with cranberry supplementand inc fluids and will wait for culture I question of the symptoms are secondary to recent chemo start side effects On chemo Currently on docetaxel/carboplatin and TCH + trastuzumab Injection every 3 weeks -Pertuzumab Med check - currently not taking meds and denies changes in meds in the past year prior to this Depression in the past when her child was in the nicu Lexapro in the past - hx of chronic diarrhea Zoloft - diarrhea - declines wanting meds at this time Discussed buspar as well if needed Preventative testing [facility] Mammo DEXA Colon Fall NEG November 2024 PHQ2 - NEG November 2024 Problem List[1] Review of Systems Constitutional: Positive for fatigue. [...] for cold intolerance and heat intolerance. Genitourinary: Positive for dysuria and frequency. Negative for flank pain and urgency. Musculoskeletal: Negative for back pain, gait problem and neck pain. Skin: Negative for rash and wound. Neurological: Negative for dizziness, tremors, syncope, numbness and headaches. Hematological: Does not bruise/bleed easily. Psychiatric/Behavioral: Positive for dysphoric mood. Negative for confusion, sleep disturbance and suicidal ideas. The patient is nervous/anxious. Medical History[2] Surgical History[3] Family History[4] Social History[5] Allergies[6] Current Medications[7] Objective BP 114/77 Pulse 73 Ht (!) 1.524 m (5') Wt 71.1 kg (156 lb 12.8 oz) BMI 30.62 kg/m Physical Exam Vitals reviewed. Constitutional: Appearance: [...] and Affect: Mood normal. Behavior: Behavior normal. In office urine Trace blood - send to culture Impression MDM 1) COMPLEXITY: 1 UNDIAGNOSED NEW [...] to 30.9 in adult E66.811, E66.09, Z68.30 Infiltrating ductal carcinoma of left breast C50.912 Depression, major, recurrent, mild F33.0 Relevant Medications prochlorperazine (Compazine) 10 mg tablet Other Visit Diagnoses Codes Urinary frequency - Primary R35.0 Relevant Orders POCT UA Automated manually resulted (Completed) Urine Culture Dysuria R30.0 Relevant Orders POCT UA Automated manually resulted (Completed) Urine Culture FU PRN [1] Patient Active Problem List Diagnosis Glucose intolerance (impaired glucose tolerance) Class 1 obesity due to excess calories without serious comorbidity with body mass index (BMI) of 31.0 to 31.9 in adult Dietary counseling and surveillance Intractable menstrual migraine with status migrainosus Infiltrating ductal carcinoma of left breast Depression, major, recurrent, mild [2] Past Medical History: Diagnosis Date Encounter for gynecological examination (general) (routine) without abnormal findings Pap test, as part of routine gynecological examination Other conditions influencing health status Menstruation [3] Past Surgical History: Procedure Laterality Date SECTION, LOW TRANSVERSE 12-01-16 05-11-19-06-29 OTHER SURGICAL HISTORY 06/09/2019 section [4] Family [...] use: Never [6] No Known Allergies [7] Current Outpatient Medications Medication Sig Dispense Refill acetaminophen (Tylenol) 500 mg capsule 650 mg. dexAMETHasone (Decadron) 4 mg tablet TAKE 2 TABLETS BY MOUTH TWICE DAILY - TAKE ONLY THE DAY BEFORE, THE DAY OF & THE DAY AFTER CHEMOTHERAPY. lidocaine-prilocaine (Emla) 2.5-2.5 % cream APPLY CREAM TOPICALLY ONCE TO AFFECTED AREA NEEDED FOR PORT ACCESS ondansetron ODT (Zofran-ODT) 8 mg disintegrating tablet Dissolve 1 tablet (8 mg) in the mouth every8 hours if needed for nausea or vomiting. prochlorperazine (Compazine) 10 mg tablet Take 1 tablet (10 mg) by mouth every 6 hours if needed for nausea or vomiting. sertraline (Zoloft) 50 mg tablet Take 1 tablet (50 mg) by mouth once daily. (Patient not taking: Reported on 03/13/2025) 30 tablet 5 No current facility-administered medications for this visit. [facility] Work Phone: 1(561) 358-527607-23-2025 Evaluation note* Diagnosis Onset Date Resolution Status Admit Date Encounter for fitting and adjustment of vascular catheter acute February 28, 2025 3:15pm Axillary lymphadenopathy acute February 28, 2025 3:24pm Encounter for education acute J hayde 2024 3:24pm HER2-positive carcinoma of l eft breast acute February 28, 2025 3:24pm Anemia chronic February 28 3:24pm Axillary lymphadenopathy acute March 20, 2025 2:51pm HER2-positive carcinoma of l eft breast acute March 20 2:51pm Anemia chronic March 20, 2 025 2:51pm Axillary lymphadenopathy acute March 29, 2025 8:18am HER2-positive carcinoma of l eft breast acute March 29 8:18am Impaired glucose tolerance acute March 29, 2025 8:18am Axillary lymphadenopathy acute April 18, 2025 8:13am HER2-positive carcinoma of l eft breast acute April 18, 2025 8:13am Axillary lymphadenopathy acute May 09, 2025 8:17am Encounter for antineoplastic chemotherapy and immunotherapy acute O ct2024 8:17am HER2-positive carcinoma of l eft breast acute May 09 8:17am Axillary lymphadenopathy acute May 30, 2025 8:16am HER2-positive carcinoma of l eft breast acute May 30 8:16am Axillary lymphadenopathy acute June 07, 2025 8:58am HER2-positive carcinoma of l eft breast acute June 07 8:58am Mucositis acute June 07, 2025 8:58am Sore throat acute June 07, 2025 8:58am HER2-positive carcinoma of l eft breast acute June 08 1:46pm Invasive ductal carcinoma of left breast acute June 08 1:46pm Encounter for breast reconstruction following mastectomy acute June 15 1:47pm HER2-positive carcinoma of l eft breast acute June 15 1:47pm Invasive ductal carcinoma of left breast acute June 15 1:47pm [facility] Work Phone: 1([phone]) 522-566907-16-2025 Radiology Diagnostic study note [facility] Imaging Services [address] [place] [id number] Chest, Abd, Pel w/Contrast MR#: [id number] Acct: [id number] Name: SHAUNA RAINEY Rep #: [id number] : 1995 F 29 From: Tyrone Mccarthy MD PCP: YENNI Hartman Status: REG CLI Study:CT Chest, Abd, Pel w/Contrast Date of E xam: 02/21/25 Exam# [id number] Ordering Dr: Sheila Fisher NP [employer]-C PROCEDURE: CT CHEST, ABD, PEL W/CONTRAST 02/21/2025 REASON FOR EXAM: BREAST CANCER STAGING TECHNIQUE: Chest, abdomen and pelvis CT with intravenous contrast. Coronal and Sagittal reconstruction series were provided. One or more dose reduction techniques were used (e.g., Automated exposure control, adjustment of the mA and/or kV according to patient size, use of iterative reconstruction technique. PATIENT PREPARATION: Per protocol ORAL CONTRAST TYPE: Readi-Cat. CONTRAST: Isovue 370 VOLUME: 95mL RADIATION DOSE SUMMARY: CTDlvol: 11.5 mGy DLP: 1020.66 mGycm COMPARISON: None FINDINGS: CT CHEST: Hardware: A right-sided port a catheter is seen with the tip in the superior vena cava. Postsurgical changes are seen in the left breast. There is a 1.3 cm nodular density in the inferior medial portion of the left breast. Lymph nodes: No evidence of hilar or mediastinal lymphadenopathy. Heart and Vasculature: The heart is nonenlarged. No coronary artery calcification is seen. Lungs and Airways: Unremarkable Pleura: Unremarkable Bones: Unremarkable CT ABDOMEN/PELVIS: Liver: Normal size. No mass. Gallbladder: Unremarkable Spleen: Normal size. Pancreas: Normal size without evidence of mass surrounding inflammation or ductal dilation. Adrenals: Unremarkable Kidneys: Normal renal sizes. No hydronephrosis. Bladder: Unremarkable Reproductive Organs: Normal uterine size and contour. There is a 2.2 cm cyst inthe left ovary. Small follicles are seen in the right ovary. Bowel: Unremarkable Appendix: Unremarkable Lymph nodes: Unremarkable. Vasculature: The abdominal aorta and IVC are normal. Peritoneum / Retroperitoneum: Small umbilical hernia containing fat. Bones: Unremarkable CT/CT Chest, Abd, Pel w/Contrast IMPRESSION: Small umbilical hernia containing fat. Follicles are seen in both ovaries more prominent on the left side. Reading Location: [place] [address] CC: ROBERT Eubanks; YENNI Hartman ~ Bee Raiser: Signed [facility]07-09-2025 Nuclear medicine Diagnostic study note [facility] Imaging Services [address] [place] [address] Bone Scan Whole Body MR#: [id number] Acct: [id number] Name: SHAUNA RAINEY Rep #: [id number] : 1995 F 29 From: Faizan Pederson MD PCP: YENNI Hartman Status: REG CLI Study:Bone Scan Whole Body Date of Exam: 02/14/25 Exam# [id number] Ordering Dr: Sheila Fisher NPC PROCEDURE: BONE SCAN WHOLE BODY 02/14/2025 REASON FOR EXAM: BREAST CANCER STAGING TECHNIQUE: Delayed whole-body bone scan after radiopharmaceutical administration RADIOPHARMACEUTICAL: 27.1 mCi Technetium-99m MDP IV COMPARISON: None. FINDINGS: No evidence of osseous metastatic disease. No significant area of abnormal uptake is noted. NM/Bone Scan Whole Body IMPRESSION: No scintigraphic evidence of osseous metastatic disease. Reading Location: [address] CC: [employer]-Gurdeep Eubanks; YENNI Hartman ~ Bee Raiser: Signed [facility]07-08-2025 History and physical note Author [facility]iko [facility] Note Date/Time February 13, 2025 7:21a m [facility] Medical Records Department [address] [place] [address] History & Physical Exam 02/13/25 0719 MR#: [id number] Acct: [id number] Name: SHAUNA RAINEY Rep #:[id number] : 1995 29 From: Tamiko Mccarthy MD PCP: YENNI Hartman Status:[facility] Location: [place] [address] History and Physical Date of Admission: 02/13/25 Date of Service: 01/23/25 MR#: [id number] Acct: [id number] Name: SHAUNA RAINEY Rep #: [id number] : 1995 Provider: Dr. Tamiko Mccarthy MD Age/Sex: 29/F Location: [facility] Status: Signed Intake Vital Signs 01/23/2509:59 Height [...] biopsy showed invasive ductal carcinoma grade 2-3, ER/IL negative, HER2 positive at in [place]. Ultrasound did not show any abnormal or [...] site of unspecified female breast Genetic Counseling, [facility] C50.919 - Malignant neoplasm of unspecified site of unspecified female breast Plan Reviewed patient's mammography as well as ultrasound with the patient and her I did also personally review. Discussed with patient and her since she is HER2 positive, ER/IL negative, will refer to oncology. Likely she [...] Will refer patient to Dr. Pantoja. Tamiko Mccarthy M.D. Pager: [phone] [facility] [address] [place] [address], [address] [place] [address] Office: 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 Tamiko Mccarthy MD; YENNI Hartman~ Signed ADDENDUM by Dr. Tamiko Mccarthy MD on 02/13/25 at 0721 Addendum I [...] also need an MRI guided biopsy. Tamiko Mccarthy M.D. Pager: [phone] [facility] [address] [place] [address], [address] [place] [address] Office: [phone] 02/13/25 07<Electronically signed by Tamiko Mccarthy MD> Cosigner Signature (if applicable): cc: Dr. Tamiko Mccarthy MD; YENNI Hartman ~* Signed [facility] Work Phone: 1(496) 506-811807-08-2025 Consult note Author Nikunj Vasquez [facility] Note Date/Time February 13, 2025 7:19a m [facility] Medical Records Department [address] [place] [address] Pre-Anesthesia Evaluation 02/13/25 0713 MR#: [id number] Acct: [id number] Name: SHAUNA RAINEY Rep #:[id number] : 1995 29 From: Nikunj Vasquez MD PCP: YENNI Hartman Status:REG SDC Y Race: C Location: [facility]06- ASA Classification* ASA Classification ASA Classification: 2 [...] poss left Anesthesia History Anesthesia History - head of physics: Anesthesia History - head of physics Hx Hospitalization Yes: 04/2024 PNEUMONIA 02/12/25 14:05 [...] take am of surgery PONV PONV - head of physics: PONV - head of physics Female Yes 02/12/25 14:05 HX of Motion [...] 02/13/25 06:48 Respiratory Assessment Respiratory Assessment - head of physics: Respiratory Tract Infection Hx - head of physics Hx Respiratory Tract Infection No 02/12/25 14:05 STOP Sleep Apnea STOP Sleep Apnea - head of physics: STOP Sleep Apnea - head of physics Hx Hypertension No 02/12/25 14:05 Hx Sleep [...] Tobacco Use History Tobacco Use History - head of physics: Tobacco Use History - head of physics Tobacco Use Smoking Status Never smoker 02/12/25 14:05 Hx Tobacco Use No 02/12/25 14:05 Years Smoking Packs Smoked per Day Smoking Cessation Date was within the last 15 years Hx Smoking Cessation Date Hx Smoking Cessation Counseling Hematologic Medial History Hematologic Hx - head of physics: 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 Specify any problems Hx of Preganancy in last 3 No 02/12/25 14:05 Months Nurse Filling Out Transfusion MGRIELIZABETH 02/12/25 14:05 & Questions: Date: 02/12/25 02/12/25 14:05 Time: 14:08 02/12/25 14:05 Patient unable to answer at this time (ie. confused, unrespo /Reproduction History /Reproductive History - head of physics: /Reproductive Hx- head of physics Hx Now No 02/12/25 14:05 Gestational Age [...] by Nikunj ackerman MD> Date _ Nikunj Vasquez MD Cosigner Signature: Date CC: ~ Signed [facility] Work Phone: 1(781) 620-276507-08-2025 Radiology Diagnostic study note [facility] Imaging Services [address] [place], [place] [address] Chest 1 View (Portable) MR#: [id number] Acct: [id number] Name: SHAUNA RAINEY Rep #: [id number] 1 : 1995 F 29 From: Faizan Pederson MD PCP: YENNI Hartman Status: REG [facility] Study:Chest 1 View (Portable) Date of Exam: 02/13/25 Exam# [id number] Ordering Dr: Tamiko Mccarthy MD PROCEDURE: CHEST 1 VIEW (PORTABLE) 02/13/2025 [...] acute osseous change is seen. Reading Location: [address] CC: Dr. Tamiko Mccarthy MD; YENNI Hartman ~ Bee Raiser: Signed [facility]07-08-2025 Consult note [facility] Medical Records Department [address] [place] [address] Anesthesia Postop Eval I 02/13/25829 MR#: [id number] Acct: [id number] Name: SHAUNA RAINEY Rep #:[id number] : 1995 29 From: Bonnie Mackenzie RNA PCP: YENNI Hartman Status:REG [facility] Y Race: C Location: [place] [address] Anesthesia: Postop Eval I Current Vital Signs [...] document: Postop Eval 1 completed: Yes 02/13/2531 OVEN TENDER BAGELS> Date _ Bonnie Ray CRNA Cosigner Signature: Date CC: ~ Signed [facility]07-08-2025 Discharge summary [facility] Medical Records Department [address] [place] [address] Instructions for Home/Discharge Instructions 02/13/25 0824 MR#: [id number] Acct: [id number] Name: SHAUNA RAINEY Rep #:[id number] : 1995 29 From: Tamiko Mccarthy MD PCP: YENNI Hartman Status:REG IAC Discharge Instructions Procedure Port-A-Cath Diet Discharge Diet: [...] Up Care Please Follow Up With: Tamiko Mccarthy MD When: In 10 days for permanent suture removal?call office for appointment Test Results: Test results from this visit will be discussed in further detail at your follow- up appointment, if applicable. Discharge Plan Admission Attending Provider: Tamiko Mccarthy Primary Care Provider: Ryan Cochran Instructions Print Language: Filipino Discharge Orders/Prescriptions Prescriptions: New oxycodone 5 mg capsule 5 mg PO Q6H PRN (Reason: pain) 3 Days Qty: 5 0RF No Action acetaminophen 500 mg capsule 1,000 mg PO Q6H PRN (Reason: pain) Referrals / Follow Up: Ryan Cochran PA [Primary Care Provider] - Disposition Disposition (needs filled in before D/C Order can be placed): Home, Self Care 02/13/25 0825Tamiko Mccarthy MD CC: YENNI Hartman ~ Signed [facility]07-08-[address] [facility] Medical Records Department [address] [place] [address] History & Physical Exam 02/13/25 0719 MR#: [id number] Acct: [id number] Name: SHAUNA RAINEY Rep #:[id number] : 1995 29 From: Tamiko Mccarthy MD PCP: YENNI Hartman Status:REG [facility] Location: [address] History and Physical Date of Admission: 02/13/25 Date of Service: 01/23/25 MR#: [id number] Acct: [id number] Name: SHAUNA RAINEY Rep #: [id number] : 1995 Provider: Dr. Tamiko Mccarthy MD Age/Sex: 29/F Location: [facility] Status: Signed Intake Vital Signs 01/23/2509:59 Height [...] biopsy showed invasive ductal carcinoma grade 2-3, ER/IL negative, HER2 positive at in [place]. Ultrasound did not show any abnormal or [...] site of unspecified female breast Genetic Counseling, [facility] C50.919 - Malignant neoplasm of unspecified site of unspecified female breast Plan Reviewed patient's mammography as well as ultrasound with the patient and her I did also personally review. Discussed with patient and her since she is HER2 positive, ER/IL negative, will refer to oncology. Likely she [...] Will refer patient to Dr. Pantoja. Tamiko Mccarthy M.D. Pager: [phone] [facility] [address] [place] [address], [address] [place] [address] Office: 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 Tamiko Mccarthy MD; YENNI Hartman~ Signed ADDENDUM by Dr. Tamiko Mccarthy MD on 02/13/25 at 0721 Addendum I [...] also need an MRI guided biopsy. Tamiko Mccarthy M.D. Pager: [phone] [facility] [address] [place] [address], [facility], [address] [place] [address] Office: [phone] 02/13/25720 Cosigner Signature (if applicable): cc: Dr. Tamiko Mccarthy MD; YENNI Hartman ~* Signed [facility]07-08-2025 Consult note [facility] Medical Records Department [address] [place] [address] Pre-Anesthesia Evaluation 02/13/25712 MR#: [id number] Acct: [id number] Name: SHAUNA RAINEY Rep #:[id number] : 1995 29 From: Nikunj Vasquez MD PCP: YENNI Hartman Status:REG [facility] Y Race: C Location: [place] [address] ASA Classification* ASA Classification ASA Classification: 2 [...] poss left Anesthesia History Anesthesia History - head of physics: Anesthesia History - head of physics Hx Hospitalization Yes: 04/2024 PNEUMONIA 02/12/25 14:05 [...] take am of surgery PONV PONV - head of physics: PONV - head of physics Female Yes 02/12/25 14:05 HX of Motion [...] 02/13/25 06:48 Respiratory Assessment Respiratory Assessment - head of physics: Respiratory Tract Infection Hx - head of physics Hx Respiratory Tract Infection No 02/12/25 14:05 STOP Sleep Apnea STOP Sleep Apnea - head of physics: STOP Sleep Apnea - head of physics Hx Hypertension No 02/12/25 14:05 Hx Sleep [...] Tobacco Use History Tobacco Use History - head of physics: Tobacco Use History - head of physics Tobacco Use Smoking Status Never smoker 02/12/25 14:05 Hx Tobacco Use No 02/12/25 14:05 Years Smoking Packs Smoked per Day Smoking Cessation Date was within the last 15 years Hx Smoking Cessation Date Hx Smoking Cessation Counseling Hematologic Medial History Hematologic Hx - head of physics: 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 Signature: Date CC: ~ Signed [facility]07-08-2025 [facility] Medical Records Department [address] [facility] [place] [address] History Physical Exam 02/13/25718 MR#: [id number] Acct: [id number] Name: SHAUNA RAINEY Rep #: [id number] : 1995 29 From: Tamiko Mccarthy MD PCP: YENNI Hartman Status:[facility] Location: [place] [address] History and Physical Date of Admission: 02/13/25 Date of Service: 01/23/25 MR#: [id number] Acct: [id number] Name: SHAUNA RAINEY Rep #: [id number] : 1995 Provider: Dr. Tamiko Mccarthy MD Age/Sex: 29/F Location: [facility] Status: Signed Intake Vital Signs 01/23/2509:59 Height [...] showed invasive ductal carcinoma grade 2- 3, ER/IL negative, HER2 positive at in [place]. Ultrasound did not show any abnormal or [...] carcinoma of left br (more content not included)...[facility] Radiology Diagnostic study note [facility] Imaging Services [address] [place] [address] [id number] Breast Limited Unilateral MR#: [id number] Acct: [id number] Name: SHAUNA RAINEY Rep #: [id number] : 1995 F 29 From: Keshia Garcia MD PCP: YENNI Hartman Status: REG CLI Study:Breast Limited Unilateral Date of Exam: 01/31/25 Exam# [id number] Ordering Dr: Tamkio Mccarthy MD PROCEDURE: BREAST LIMITED UNILATERAL 01/31/2025 REASON [...] the biopsy-proven left breast malignancy. Reading Location: [id number] CC: Dr. Tamiko Mccarthy MD; YENNI Hartman ~ Bee Raiser: Signed [facility]06-24-2025 History of Present illness Narrative* YENNI Walker-C - 01/30/2025 1:40 PM EDT Subjective Patient ID: Shauna Rainey is a 29 y.o. 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 and has followed with the surgeon and specialists in [place] a few times She is awaiting genetic [...] well if needed Preventative testing PAP - [facility] care Mammo DEXA Colon Fall NEG November 2024 [...] medications for this visit. [facility] Work Phone: 1(765) 995-947906-23-[address] [facility] [place] [address] OFFICE VISIT Date of Service: 01/29/25 1515 MR#: [id number] Acct: [id number] Name: SHAUNA RAINEY Rep #: [id number] : 1995 From: Ara steele MD Age/Sex: 29/F Location: [facility] Status: Signed HPI Subjective Date of Service [...] 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 January 25, [...] FINAL ASSESSMENT BI-RADS 6: KNOWN BIOPSY-PROVEN MALIGNANCY. [facility] Medical History (Updated 01/29/25 @ 16:03 by [...] no focal motor deficits Coordination / Balance: acqdxi-ca-zmtb test normal Speech: speech normal Gait (Neuro): [...] cancer of the left breast ER negative, IL negative, HER2/camila overexpressed 3+ with an abnormal [...] She will make anappointment to see her WASHERY BOSS to discuss these 2 issues further. 4. [...] impression and plan discussed Ara Franklin MD Top Trimmer, [facility] Divisions of Medical Oncology & Hematology Department of Internal Medicine [place] [address] This note was generated using a voice [...] the past year?: No 01/29/25 1615 chandan MD> Date _ Ara Franklin MD Cosign Signature: Date (if applicable) CC: Dr. Tamiko Mccarthy MD; YENNI Hartman ~ [facility]06-23-2025 Progress note Author Ara Franklin [facility] Note Date/Time January 29, 2025 4:15 pm [facility] Cancer [address] [address] OFFICE VISIT Date of Service: 01/29/25 1515 MR#: [id number] Acct: [id number] Name: SHAUNA RAINEY Rep #: [id number] : 1995 From: Ara steele MD Age/Sex: 29/F Location: [facility] Status: Signed HPI Subjective Date of Service [...] 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 January 25, [...] FINAL ASSESSMENT BI-RADS 6: KNOWN BIOPSY-PROV[facility] MAL[facility]NANCY. [facility] History (Updated 01/29/25 @ 16:03 [...] no focal motor deficits Coordination / Balance: ucieup-fv-qfti test normal Speech: speech normal Gait (Neuro): [...] cancer of the left breast ER negative, IL negative, HER2/camila overexpressed 3+ with an abnormal [...] She will make anappointment to see her WASHERY BOSS to discuss these 2 issues further. 4. [...] impression and plan discussed Ara Franklin MD Top Trimmer, [facility] Divisions of Medical Oncology & Hematology Department of Internal Medicine [place] [address] This note was generated using a voice [...] fallen in the past year?: No 01/29/25 3029 <Electronically signed by Ara hawley MD> Date _ Ara Franklin MD Cosigner Signature: Date (if applicable) CC: Dr. Tamiko Mccarthy MD; YENNI Hartman ~ [place] [employer] Work Phone: 1(775) 894-826506-17-2025 Evaluation note* Diagnosis Onset Date Resolution Status [...] 2025 3:08pm Anemia chronic January 29 3:08pm [facility] Work Phone: 1(900) 954-745206-17-2025 Evaluation note* Diagnosis Onset Date Resolution Status [...] breast acute February 08, 2025 1 :55pm [facility] Work Phone: 1(636) 623-653706-17-2025 Evaluation note* Diagnosis Onset Date Resolution Status [...] breast acute February 08, 2025 1 :55pm Axillary lymphadenopathy acute February 28, 2025 3:24pm Encounter for education acute J hayde 2024 3:24pm HER2-positive carcinoma of l eft breast acute February 28, 2025 3:24pm Anemia chronic February 28 3:24pm [facility] Work Phone: 1(892) 384-952206-17-2025 Evaluation note* Diagnosis Onset Date Resolution Status [...] breast acute February 08, 2025 1 :55pm Encounter for fitting and adjustment of vascular catheter acute February 28, 2025 3:15pm Axillary lymphadenopathy acute February 28, 2025 3:24pm Encounter for education acute J hayde 2024 3:24pm HER2-positive carcinoma of l eft breast acute February 28, 2025 3:24pm Anemia chronic February 28 3:24pm Axillary lymphadenopathy acute March 20, 2025 2:51pm HER2-positive carcinoma of l eft breast acute March 20 2:51pm Anemia chronic March 20, 2 025 2:51pm [facility] Work Phone: 1(846) 638-974706-17-2025 Evaluation note* Diagnosis Onset Date Resolution Status [...] breast acute February 08, 2025 1 :55pm Encounter for fitting and adjustment of vascular catheter acute February 28, 2025 3:15pm Axillary lymphadenopathy acute February 28, 2025 3:24pm Encounter for education acute J hayde 2024 3:24pm HER2-positive carcinoma of l eft breast acute February 28, 2025 3:24pm Anemia chronic February 28 3:24pm Axillary lymphadenopathy acute March 20, 2025 2:51pm HER2-positive carcinoma of l eft breast acute March 20 2:51pm Anemia chronic March 20, 2 025 2:51pm Axillary lymphadenopathy acute March 29, 2025 8:18am HER2-positive carcinoma of l eft breast acute March 29 8:18am Impaired glucose tolerance acute March 29, 2025 8:18am [facility] Work Phone: 1(670) 921-343406-17-2025 Evaluation note* Diagnosis Onset Date Resolution Status [...] breast acute February 08, 2025 1 :55pm Encounter for fitting and adjustment of vascular catheter acute February 28, 2025 3:15pm Axillary lymphadenopathy acute February 28, 2025 3:24pm Encounter for education acute J hayde 2024 3:24pm HER2-positive carcinoma of l eft breast acute February 28, 2025 3:24pm Anemia chronic February 28 3:24pm Axillary lymphadenopathy acute March 20, 2025 2:51pm HER2-positive carcinoma of l eft breast acute March 20 2:51pm Anemia chronic March 20, 2 025 2:51pm Axillary lymphadenopathy acute March 29, 2025 8:18am HER2-positive carcinoma of l eft breast acute March 29 8:18am Impaired glucose tolerance acute March 29, 2025 8:18am Axillary lymphadenopathy acute April 18, 2025 8:13am HER2-positive carcinoma of l eft breast acute April 18, 2025 8:13am [place] [employer] [facility] Work Phone: 1(856) 224-640206-17-2025 Evaluation note* Diagnosis Onset Date Resolution Status [...] breast acute February 08, 2025 1 :55pm Encounter for fitting and adjustment of vascular catheter acute February 28, 2025 3:15pm Axillary lymphadenopathy acute February 28, 2025 3:24pm Encounter for education acute J hayde 2024 3:24pm HER2-positive carcinoma of l eft breast acute February 28, 2025 3:24pm Anemia chronic February 28 3:24pm Axillary lymphadenopathy acute March 20, 2025 2:51pm HER2-positive carcinoma of l eft breast acute March 20 2:51pm Anemia chronic March 20, 2 025 2:51pm Axillary lymphadenopathy acute March 29, 2025 8:18am HER2-positive carcinoma of l eft breast acute March 29 8:18am Impaired glucose tolerance acute March 29, 2025 8:18am Axillary lymphadenopathy acute April 18, 2025 8:13am HER2-positive carcinoma of l eft breast acute April 18, 2025 8:13am Axillary lymphadenopathy acute May 09, 2025 8:17am Encounter for antineoplastic chemotherapy and immunotherapy acute O ct2024 8:17am HER2-positive carcinoma of l eft breast acute May 09 8:17am [place] [facility] Work Phone: 1(650) 887-773006-17-2025 [facility] [address] [place], [place] [address] OFFICE VISIT Date of Service: 01/23/25 MR#: [id number] Acct: [id number] Name: SHAUNA RAINEY Rep #: [id number] : 1995 Provider: Dr. Niall Mccarthy MD Age/Sex: 29/F Location: [facility] Status: Signed Intake Vital Signs 01/23/25 09:59 [...] biopsy showed invasive ductal carcinoma grade 2-3, ER/IL negative, HER2 positive at in [place]. Ultrasound did not show any abnormal or [...] and her since she is HER2 positive, ER/IL negative, will refer to oncology. Likely she [...] Will refer patient to Dr. Pantoja. Tamiko Mccarthy M.D. Pager: [phone] [facility] [address] [place] [address], [address] [place] [address] Office: [phone] Coding Level of Care Code Off vis,new,level 5 Diagnoses 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 C50.912; Z17.32 HER2-positive carcinoma of left breast C50.912; Z17.31 Invasive ductal carcinoma of left breast C50.912 01/23/25 1050 am MD> Date _ Tamiko Mccarthy MD Cosigner Signature: Date (if applicable) CC: Dr. Aden Winslow MD; Dr. Ara Franklin MD; Dr. Michael Pantoja MD; YENNI Paige ~ [facility]06-17-2025 Progress note Author Tamiko Mccarthy [facility] Note Date/Time January 23, 2025 10:5 0am [facility] [address] [place] [address] OFFICE VISIT Date of Service: 01/23/25 MR#: [id number] Acct: [id number] Name: SHAUNA RAINEY Rep #: [id number] : 1995 Provider: Dr. Niall Mccarthy MD Age/Sex: 29/F Location: [facility] Status: Signed Intake Vital Signs 01/23/25 09:59 [...] biopsy showed invasive ductal carcinoma grade 2-3, ER/IL negative, HER2 positive at in [place]. Ultrasound did not show any abnormal or [...] site of unspecified female breast Genetic Counseling, [facility] C50.919 - Malignant neoplasm of unspecified site of unspecified female breast Plan Reviewed patient's mammography as well as ultrasound with the patient and her I did also personally review. Discussed with patient and her since she is HER2 positive, ER/IL negative, will refer to oncology. Likely she [...] Will refer patient to Dr. Pantoja. Tamiko Mccarthy M.D. Pager: [phone] [facility] [address] [place] [address], [facility], [address] [place] [address] Office: [phone] Coding Level of Care Code Off vis,new,level 5 Diagnoses 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 C50.912; Z17.32 HER2-positive carcinoma of left breast C50.912; Z17.31 Invasive ductal carcinoma of left breast C50.912 01/23/25 1050 <Electronically signed by Tamiko Cannon am, MD> Date _ Tamiko Mccarthy MD Cosigner Signature: Date (if applicable) CC: Dr. Aden Winslow MD; Dr. Ara Franklin MD; Dr. Michael Pantoja MD; YENNI Paige ~ [facility] Work Phone: 1([phone]) [phone] Nurse Note* Vik Petersen RN - 01/12/2025 11:35 AM EDT Dc instructions provided and reviewed without questions. Patient dc'd home with mother. Patient ambulates to lobby with slow and steady gait. [facility] Work Phone: 1(101) 540-828306-06-2025 Nurse Note* Vik Petersen RN - 01/12/2025 11:35 AM EDT Dc instructions provided and reviewed without questions. Patient dc'd home with mother. Patient ambulates to lobby with slow and steady gait. documented [facility] Work Phone: 1([phone]) 834-231805-29-2025 History of Present illness Narrative* Ryan Cocrhan PA-C - 01/04/2025 9:40 AM EDT Subjective Patient ID: Shauna Rainey is a 29 y.o. female who presents for Follow-up (C/O INDENT IN LT BREAST) HPI Breast concerns L breast indent x 1 year and thinks it is getting worse She aranza hx of mammo Last visit with WASHERY BOSS was within 6 mo - she didn't mention it then but states she did have the spot but the WASHERY BOSS did not note concern during her PE Pt youngest was born in 2020 and breast fed sometime into 2022 Pt denies unexplainable wt loss, fever, nipple discharge or fam hx of breast cancer Med check - currently not taking meds and denies changes in meds in the past year prior to this Preventative testing PAP - [facility] Mammo DEXA Colon Fall NEG November 2024 [...] medications for this visit. [facility] Work Phone: 1(579) 441-534804-09-2025 History of Present illness Narrative* Ryan Cochran [...] other symptoms We discussed diet and ex, termite renewal inspector, labs, injectables, adipex. Pt to check with insurance and get her labs done and if approp can call to start wegovy type med if she wishes but is aware she would need to be seen monthly for wt checks in the beginning Preventative testing PAP - [facility] Mammo DEXA Colon Fall NEG November 2024 [...] 3-12 mo with wellness / LABS at [facility] -= pt to call documented in this encounterSelect [facility] Work Phone: 1(408) 559-341710-17-2024 NoteS DISCHARGE SUMMARY -- [facility] Shauna Rainey Admitted: 05/23/2024 Discharge Date: 05/25/24 PCP Handoff Recommended Outpatient Testing None Results Pending At Discharge None Clinical Summary Shauna Rainey is a 28 y.o. female patient of Kinjal Cleveland MD with history of depression presented to [facility] on 05/23/2024 with shortness of breath, hypoxia and tachycardia. Patient transferred from [facility] ER. Acute hypoxic respiratory failure, resolved Community-acquired pneumonia, Rt basilar lobe Failed outpatient treatment CXR reviewed showed perihilar opacities considering superimposed infection. CT PE was negative for PE, showed patchy right basilar airspace opacity Patient was hypoxic when she presented to the [place] ER S/p 7-day of doxycycline as an [...] Physician(s) Follow Up: Kinjal Cleveland MD [address] [place] [address] Schedule an appointment as soon as possible [...] PM AUTHENTICATED BY CASSANDRA DAVID, ON 05/25/2024 12:58:[address] [place] [address] 05-24-2024 NoteHMS PROGRESS NOTE Assessment and Plan Shauna Rainey is a 28 y.o. female patient of Kinjal Cleveland MD with history of depression presented to [facility] on 05/23/2024 with shortness of breath, hypoxia and tachycardia. Patient transferred from [facility] ER. Acute hypoxic respiratory failure, resolved Community-acquired pneumonia, Rt basilar lobe Failed outpatient treatment CXR reviewed showed perihilar opacities considering superimposed infection. CT PE was negative for PE, showed patchy right basilar airspace opacity Patient was hypoxic when she presented to the [place] ER S/p 7-day of doxycycline as an [...] affect AUTHENTICATED BY CASSANDRA DAVID, ON 05/24/2024 09:56:40[facility] 05-23-2024 NoteHMS HISTORY AND PHYSICAL -- [facility] Patient Name: Shauna Rainey : 1995 MR #: [id number] Admit Date: 05/23/2024 Physicians: Kinjal Cleveland MD (Family); Mariela Schulz DO (Referring) Shauna Rainey is a 28 y.o. female patient of Kinjal Cleveland MD with history of depression presented to [facility] on 05/23/2024 with shortness of breath, hypoxia and tachycardia. Patient transferred from [facility] ER. Acute hypoxic respiratory failure, resolved Community-acquired pneumonia Failed outpatient treatment CXR reviewed showed perihilar opacities considering superimposed infection. CT PE was negative for PE, showed patchy right basilar airspace opacity Patient was hypoxic when she presented to the [place] ER S/p 7-day of doxycycline as an outpatient Elevated D-dimer 9 days ago Admit to [facility] with telemetry Continue respiratory monitoring, keep [...] hospital or ED yes -- care site [facility] Quality Measures DVT Prophylaxis: lovenox [place] Catheter: [...] MD with history of depression presented to [facility] on 05/23/2024 with shortness of breath, hypoxia and tachycardia. Patient transferred from [facility] ER. Patient just finished 7-day course of [...] affect AUTHENTICATED BY NATALYA SOSA, ON 05/23/2024 15:10:25[facility]10-14-2024 Emergency department Note* Mariela Schulz, - 05/22/2024 9:40 PM EDT HPI Chief [...] will require admission and be transferred to [facility]. History provided by: Patient Patient History Past [...] Roberto Ortiz 05/23/2024 1:56 AM Dictation workstation: [id number] XR chest 2 views Final Result Mild increased perihilar opacities suggestive of developing interstitial edema. Superimposed infection not excluded. Clinical correlation and continued short-term follow-up is advised. MACRO: None Signed by: Neva Perdomo 05/22/2024 10:31 PM Dictation workstation: [id number] Labs Reviewed CBC WITH AUTO DIFFERENTIAL - [...] [MS] ED Course User Index [MS] Mariela Tam DO Lu[place] Diagnoses as of 05/23/24225 Pneumonia due to infectious organism, unspecified laterality, unspecified part of lung No data recorded Lizbeth Coma Scale Score: 15 (05/22/24 2151 : Lana Tamayo RN) Medical Decision Making Transfer to [facility] Procedure Procedures Mariela Tam DO Lucrecia 05/23/24225 [facility]: 1(509) 623-445410-14-2024 Physician Emergency department Note* Mariela Schulz DO [...] will require admission and be transferred to [facility]. History provided by: Patient Patient History Past [...] Roberto Ortiz 05/23/2024 1:56 AM Dictation workstation: [id number] XR chest 2 views Final Result Mild increased perihilar opacities suggestive of developing interstitial edema. Superimposed infection not excluded. Clinical correlation and continued short-term follow-up is advised. MACRO: None Signed by: Neva Perdomo 05/22/2024 10:31 PM Dictation workstation: [id number] Labs Reviewed CBC WITH AUTO DIFFERENTIAL - [...] unspecified part of lung No data recorded [place] Coma Scale Score: 15 (05/22/242150 : Lana Tamayo RN) Medical Decision Making Transfer to [facility] Procedure Procedures Mariela Schulz DO 05/23/24225 [facility] Work Phone: 1(402) 423-806912-13-2021 History of Present illness Narrative* Era Giordano CNP - 07/21/2021 2:05 PM EST Associated Order(s): LG Jt Injection/Arthrocentesis: L glenohumeral LG Jt Injection/Arthrocentesis: L glenohumeral Performed by: Era Giordano CNP Authorized by: Era Giordano CNP CPT 81526 - Large Joint Arthrocentesis: Consent given by: [...] 2:05 PM EST [facility] [address] [facility] [address] [facility] [id number] Chief Complaint Patient presents with Left Shoulder [...] care of 2 young boys and an infant. She is right handed but relies on [...] with the treatment plan. documented in this [id number] History of Present illness Narrative* Kinjal [place] [...] effects of the medications. 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 YES: This patient delivered between 94k3v-17x8s for the following acceptable indication(s) for delivery: [...] Information for the patient's : Vinicius More [[id number]] male Weight: 4 lb 9 oz (2.07 kg) Apgars: Information for the patient's : Vinicius More [[id number]] One Minute : 6 Five Minute : 8 Course: Uncomplicated yes Infant: Male infant Blood Type/Rh: A POS Antibody Screen: Antibody Screen Date Value Ref Range Status 01/16/2021 NEG NA Final Rubella: No results found for: RUBELLAIGG Contraception: will discuss with her [facility]agon[facility] provider : yes VTE Prophylaxis: Not Indicated Meds: Shauna More Home Medication Instructions CHENTE:[id number] Printed on:01/19/21 1320 Medication Information acetaminophen (TYLENOL) [...] Venita Castaneda MD on 01/19/2021 at 1:20 [facility]06-13-2021 Hospital Discharge instructions* Instructions* Venita Castaneda MD - 01/19/2021 Images from the original note were not included. After Your Delivery (the Period): Your Care Instructions Thank you for allowing us to care of you at [facility]. This time can be one of many [...] over the next few weeks. Bleeding may cone picker and then decrease again around 7-10 [...] avoid constipation you may take a mild zdgf-vhr-kasqumo stool softener (such as colace) as recommended [...] clean your hands with an alcohol-based hand field mechanic that contains at least 60% alcohol. Clean your hands often Wash your hands often with soap and water for at least 20 seconds, especially after blowing your nose, coughing, or sneezing; going to the bathroom; and before eating or preparing food. If soap and water are not readily available, use an alcohol-based hand field mechanic with at least 60% alcohol, covering all [...] healthcare provider to call the local or [facility] health department. Persons who are placed [...] isolation precautions should be made on a xoim-ty-ehnw basis, in consultation with healthcare providers and [facility] local health departments. Information on COVID-19 for all [...] respiratory tract signs and symptoms. Ways to [place] with Anxiety & Stress It is normal [...] an illness that was first found in [facility], in July 2019. It has since spread [...] seen in people before. This virus spreads jtjtwz-cj-bacuwh through droplets from coughing and sneezing. It [...] water aren't available, use an alcohol-based hand field mechanic. Call 911 anytime you think you may [...] as of: November 08, 2019 Content Version: 07.12 [employer]. Care instructions adapted under license by your healthcare professional. If you have questions about a medical condition or this instruction, always ask your healthcare professional. [employer] disclaims any warranty or liability for your use of this information. General Recommendations for Routine Cleaning and Disinfection of Households Community members can practice routine cleaning of frequently touched surfaces (for example: tables, doorknobs, light switches, handles, desks, toilets, faucets, sinks) with household jr. systems administrator and EPA-registered disinfectants that are appropriate for [...] appropriate. These supplies include tissues, paper towels, jr. systems administrator and EPA-registered disinfectants (see list link at [...] be used for other purposes. Consult the edgerman's instructions for cleaning and disinfection products used. [...] used if appropriate for the surface. Follow edgerman's instructions for application and proper ventilation. Check [...] o Products with EPA-approved emerging viral pathogens [facility] iconexternal icon are expected to be effective against COVID-19 based on data for harder to kill viruses. Follow the edgerman's instructions for all cleaning and disinfection products (e.g., concentration, application method and contact time, etc.). Soft (porous) surfaces such as carpeted floor, rugs, and drapes Remove visible contamination if present and clean with appropriate jr. systems administrator indicated for use on these surfaces. After cleaning: Launder items as appropriate in accordance with the edgerman's instructions. If possible, launder items using the [...] items as appropriate in accordance with the edgerman's instructions. If possible, launder items using the warmest appropriate water setting for the items and dry items completely. Dirtylaundry from an ill person can be washed with other people's items. o Clean and disinfect clothes hampers according to guidance above for surfaces. If possible, consider placing a real estate subagent that is either disposable (can be thrown away) or can be laundered. CDC has a list of EPA approved cleaning products on their website - https://www.cdc.gov/coronavirus/ 2019-ncov/community/home/cleaning-disinfection.html https://www.Dr Lal [employer]/Ewing-Btwfjlpdvjl-Clvbyhec-Products-List.pdf Grocery Stores with delivery and cone picker services: [employer]: Free cone picker at locations Delivery is $12.95 a month Website - [employer] [place]: Elementary School Professional $2.95 (1st order is free) Delivery is $14.95 Website - [employer] [place]: maple products supervisor is free Delivery is $5.95 Website [employer]: maple products supervisor is $4.95 Delivery is $9.95 Website Thumb [employer]: maple products supervisor is $4.95 Delivery is $9.95 Website [employer]: Can be ordered for delivery and cone picker with Kalido Website - www.[employer]. [employer]: Free deliver for first 3 orders of $35 or more Website aldi[employer]berResearch Will deliver from [employer], Me[employer], [employer], and [employer]. Annual membership is $99 Monthly membership is $14 documented in this [facility] Work Phone: 1(558) 802-481406-13-2021 Hospital course Narrative* Venita Castaneda MD - 01/19/2021 1:20 PM EDT Images from the original note were not included. 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 YES: This patient delivered between 36j2w-88c5c for the following acceptable indication(s) for delivery: [...] Information for the patient's : Vinicius More [[id number]] male Weight: 4 lb 9 oz (2.07 kg) Apgars: Information for the patient's : Vinicius More [[id number]] One Minute : 6 Five Minute : 8 Course: Uncomplicated yes : Male Blood Type/Rh: A POS Antibody Screen: Antibody Screen Date Value Ref Range Status 01/16/2021 NEG NA Final Rubella: No results found for: RUBELLAIGG Contraception: will discuss with her Wagoner provider : yes VTE Prophylaxis: Not Indicated Meds: Shauna More Home Medication Instructions CHENTE:[id number] Printed on:01/19/21 1320 Medication Information acetaminophen (TYLENOL) [...] 01/19/2021 at 1:20 PM documented in this [facility] Work Phone: 1(438) 549-792606-13-2021 History of Present illness Narrative* Criselda Walker [...] Pain is controlled yes. Vital Signs: Vitals: 01/17/21 2030 01/18/21 0050 06/07/29 82501/18/212029 BP: 102/85 (!) 102/59 105/65 (!) 108/58 [...] care. Venita Castaneda MD * Cindi Vazquez IBALEXY - 01/18/2021 12:07 PM EDT Pt reports [...] - Doing well, VSS - Male infant - Breast feeding - Contraception: Per Private [...] to perform preop count documented in this [facility] Work Phone: Consult note Author Bonnie Ray [facility] Note Date/Time February 13, 2025 8:31a m [facility] Medical Records Department [address] [place] [id number] Anesthesia Postop Eval I 02/13/25 0830 MR#: [id number] Acct: [id number] Name: SHAUNA RAINEY Rep #:[id number] : 1995 29 From: Bonnie KERR PCP: YENNI Hartman Status:REG SDC Y Race: C Location: [place] [address] Anesthesia: Postop Eval I Current Vital Signs [...] CRNA Cosigner Signature: Date CC: ~ Signed [facility] Work Phone: Discharge summary Author Tamiko Mccarthy [facility] Note Date/Time February 13, 2025 8:25a m [facility] Medical Records Department [address] [place] [address] Instructions for Home/Discharge Instructions 02/13/25823 MR#: [id number] Acct: [id number] Name: SHAUNA RAINEY Rep #:[id number] : 1995 29 From: Tamiko Mccarthy MD PCP: YENNI Hartman Status:REG [facility] Discharge Instructions Procedure Port-A-Cath Diet Discharge Diet: [...] Up Care Please Follow Up With: Tamiko Mccarthy MD When: In 10 days for permanent suture removal?call office for appointment Test Results: Test results from this visit will be discussed in further detail at your follow- up appointment, if applicable. Discharge Plan Admission Attending Provider: Tamiko Mccarthy Primary Care Provider: Rayn Cochran Instructions Print Language: Filipino Discharge Orders/Prescriptions Prescriptions: New oxycodone 5 mg capsule 5 mg PO Q6H PRN (Reason: pain) 3 Days Qty: 5 0RF No Action acetaminophen 500 mg capsule 1,000 mg PO Q6H PRN (Reason: pain) Referrals / Follow Up: Ryan Cochran PA [Primary Care Provider] - Disposition Disposition (needs filled in before D/C Order can be placed): Home, Self Care 02/13/25 08<Electronically signed by Tamiko Mccarthy MD>Tamiko Mccarthy MD CC: YENNI Hartman ~ Signed [facility] Work Phone: Evaluation note* Diagnosis Umbilical abnormality Congenital anomaly, unspecified Status post emergency section Other postprocedural status documented in this encounter [facility] Work Phone: Evaluation note* 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, complicating , childbirth, or the puerperium, unspecified as to episode of care Functional diarrhea [facility] Instability of left shoulder joint- Primary Bursitis and tendinitis of shoulder region [facility]* 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, complicating , childbirth, or the puerperium, unspecified as to episode of care [facility] 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, complicating , childbirth, or the puerperium, unspecified as to episode of care [facility]* Diagnosis Pneumonia due to infectious organism, unspecified laterality, unspecified part of lung- Primary documented in this encounter [facility] Work Phone: Evaluation note* Diagnosis Encounter to [...] with status migrainosus documented in this encounter [facility] Work Phone: Evaluation note* Diagnosis Mass of upper outer quadrant of left breast- Primary Class 1 obesity due to excess calories without serious comorbidity with body mass index (BMI) of 30.0 to 30.9 in adult Fibrocystic change of breast, left documented in this encounter [facility] Work Phone: Evaluation note* Diagnosis Mass of upper outer quadrant of left breast documented in this encounter [facility] Work Phone: Evaluation note* Diagnosis Mass of upper outer quadrant of left breast documented in this encounter [facility] Work Phone: Evaluation note* Diagnosis Abnormal mammogram of left breast Mass of multiple sites of left breast documented in this encounter [facility] Work Phone: Evaluation note* Diagnosis Abnormal mammogram of left breast Mass of multiple sites of left breast documented in this encounter [facility] Work Phone: Evaluation note* Diagnosis Onset Date Resolution Status Admit Date HER2-positive carcinoma of l eft breast acute January 23, 2025 9:48am Invasive ductal carcinoma of left breast acute January 23, 2025 9:48am 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 Work Phone: Evaluation note* Diagnosis Infiltrating ductal carcinoma of left breast- Primary Depression, major, recurrent, mild Class 1 obesity due to excess calories without serious comorbidity with body mass index (BMI) of 31.0 to 31.9 in adult documented in this encounter [facility] Work Phone: Evaluation note* Diagnosis Malignant neoplasm of female breast, unspecified estrogen receptor status, unspecified laterality, unspecified site of breast Encounter for nonprocreative genetic counseling Malignant neoplasm of left breast in female, estrogen receptor negative, unspecified site of breast [facility] Diagnosis Urinary frequency- Primary Dysuria Class 1 obesity due to excess calories without serious comorbidity with body mass index (BMI) of 30.0 to 30.9 in adult Infiltrating ductal carcinoma of left breast Depression, major, recurrent, mild documented in this encounter [facility] Work Phone: Evaluation note* Diagnosis Hypomagnesemia- Primary Disorders of magnesium metabolism Generalized abdominal pain Abdominal pain, generalized documented in this encounter [facility] Work Phone: Hospital Discharge instructionsAmbulatory Orders* Genetic Counseling, [facility] Location: None Selected * Oncology Location: None Selected * Plastic surgery Location: None Selected [facility] Work Phone: Hospital Discharge instructions* Attachments The following attachments cannot be sent through Care Everywhere. * Abdominal pain in adults Discharge instructions (Filipino) [facility]: Progress note Author Sheila Eubanks [facility] Note Date/Time May 09, 2025 10 :10am [facility] Cancer [address] [address] OFFICE VISIT Date of Service: 05/09/25 0843 MR#: [id number] Acct: [id number] Name: SHAUNA RAINEY Rep #: [id number] : 1995 From: Sheila Hester CARBON CAPTURE POWER PLANT OPERATOR CARBON CAPTURE POWER PLANT OPERATOR-C Age/Sex: 29/F Location: [facility] Status: Signed HPI Subjective Date of Service 05/09/25 Chief Complaint breast cancer History of Present [...] 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 January 25, [...] FINAL ASSESSMENT BI-RADS 6: KNOWN BIOPSY-PROVEN MALIGNANCY. February 14, 2025 bone scan: IMPRESSION: No scintigraphic evidence of osseous metastatic disease. February 21, 2025 chest abdomen and pelvis CT: IMPRESSION: Small umbilical hernia containing fat. Follicles are seen in both ovaries more prominent on the left side. Treatment summary and response: TCHP March 07, 2025 Interval History The patient is presenting to clinic for an evaluation anticiapting she will begin c4 TCHP. C/o headaches intermittently, predated chemotherapy exposure. Diarrhea daily, estimates 2-5 episodes/day. Responds to loperamide, however sheis reluctant to use it d/t rebound constipation. +N/V, no emesis. Prn antiemetics are helpful. + dry eye, using otc lubricant. Appetite fair, PO fluid intake 2L/day. LMP 04/08/25. Specifically denies rash, fever/chills, dizziness, CP, palpitations, cough, SOB,swelling of her extremities, numbness/tingling. [facility] Medical History (Updated 05/09/25 @ 10:36 by Sheila Eubanks NP, CARBON CAPTURE POWER PLANT OPERATOR-C) Encounter for antineoplastic chemotherapy and immunotherapy Encounter for education Wears glasses Non-smoker Shortness of breath on exertion History of echocardiogram Anemia Axillary lymphadenopathy Surgical History History of wisdom tooth extraction delivery delivered Family History Other No pertinent family history Social History Smoking Status: Never smoker alcohol intake: never ROS ROS Narrative Negative except as documented in the interval HPI Intake Vital Signs 03/29/25 09:07 04/26/25 09:01 05/09/25 08:43 Height 5 ft 5 ft 5 ft Weight: 166 lb 4 oz BMI 32.4 BP 105/73 Blood Pressure Location Rt brachial Position Sitting Respiration 16 Pulse 81 Pulse Source Monitor Temp 98.5 F Temperature Source Temporal Artery Pulse Oximetry (%) 99 Oxygen Delivery Method room air Intake Is patient in pain?: No Allergies No Known Allergies Allergy (Verified 05/09/25 08:48) Medications ?Medication ?Instructions ?Recorded ?Confirmed ?Type acetaminophen 500 mg capsule 1,000 mg PO Q6H PRN pain 02/12/25 05/09/25 History dexamethasone 4 mg tablet 8 mg (2 x 4 mg) PO .COMPLEX #60 02/28/25 05/09/25 Rx tabs lidocaine-prilocaine 2.5 %-2.5 % 1 applic topical ONCE PRN Port 02/28/25 05/09/25 Rx topical cream access port access 30 days # 30 grams ondansetron 8 mg disintegrating 8 mg PO Q8H PRN nausea and 02/28/25 05/09/25 Rx tablet vomiting #30 tabs prochlorperazine maleate 10 mg 10 mg PO Q6H PRN nausea and 02/28/25 05/09/25 Rx tablet vomiting #30 tabs Laboratory Tests 05/09/25 08:34 WBC 6.6 Hgb 12.3 Hct 36.8 L Plt Count 210 Absolute Neuts (auto) 5.3 Sodium 138 Potassium 4.1 Chloride 104 Carbon Dioxide 21.4 BUN 13 Creatinine 0.42 L Glucose 134 H Calcium 9.3 Magnesium 1.9 Total Bilirubin 0.24 AST 20 ALT 40 H Alkaline Phosphatase 70 Albumin 4.3 Exam Physical Exam Narrative ECOG 1 Const alert, oriented x3 and average body habitus HEENT normocephalic Face and Sinus: normal facial exam Mouth: oral and palatal mucosa normal Eyes General Eye: normal appearance of both eyes Neck no lymphadenopathy and no JVD Lymph Lymphatic: no lymphadenopathy noted Chest palpation of breasts normal Chest: vascular access Resp clear to auscultation bilaterally Cardio regular [...] no focal motor deficits Coordination / Balance: sfuska-ok-xjzk test normal Speech: speech normal Gait (Neuro): normal gait Psych mental status grossly normal Mood & Affect: anxious Coding Level of Care Code Off vis,est,level 4 Exam Problem Focused Diagnoses HER2-positive carcinoma of left breast C50.912; Z17.31 Axillary lymphadenopathy R59.0 Encounter for antineoplastic chemotherapy and immunotherapy Z51.11; Z51.12 Assessment and Plan Assessment and Plan (1) HER2-positive carcinoma of left breast: Status: Acute (2) Axillary lymphadenopathy: Status: Acute (3) Encounter for antineoplastic chemotherapy and immunotherapy: Status: Acute Orders: Orders ONC Echo Complete 05/31/25 C50.912 - Malignant neoplasm of unspecified site of left female breast, Z51.81 - Encounter for therapeutic drug level monitoring, Z79.899 - Other retirement (current) drug therapy Plan 29-year-old female, premenopausal at diagnosis, with multifocal (at least 9 lesions identified on MRI of the breast) invasive ductal cancer of the left breast ER negative, IL negative, HER2/camila overexpressed 3+ with an abnormal leftaxillary lymph node on MRI but not by ultrasound and not accessible to biopsy. This is at least locally advanced cancer. Staging by CAT scan of the chest and abdomen and bone scan showed no evidence to suggest distant metastatic disease. PET scan was denied by insurance Started systemic neoadjuvant chemoimmunotherapy with TCHP March 07, 2025. Experienced expected side effects with manageable nausea, diarrhea, bony pains from growth factor support but no grade 3 or 4 toxicities. Chronic comorbid conditions: Headaches, anemia, impaired glucose tolerance (on steroids). Plan: 1. To continue neoadjuvant systemic chemoimmunotherapy with TCHP for a total 6 cycles to be followed by definitive surgery. Due to the multifocality of her cancer a total mastectomy is advisable. Proceed with c4 today, following urine hcg. Echo before next cycle. 2. Diarrhea- grade 1. Continue to push fluids, electrolyte solutions, antidiarrheals. RTO 05/30/25 for ?c5 TCHP. 05/09/25 1043 <Electronically signed by Sheila enrique NP [employer]TURE POWER PLANT OPERATOR-C> Date _ Sheila Eubanks NP [employer] CAPTURE POWER PLANT OPERATOR-C Cosigner Signature: Date (if applicable) CC: ~ [facility] Work Phone: Progress note Author Ara Franklin [facility] Note Date/Time May 30, 2025 1 0:35am [facility] [address] [place] [address] OFFICE VISIT Date of Service: 05/30/25 0909 MR#: [id number] Acct: [id number] Name: SHAUNA RAINEY Rep #: [id number] : 1995 From: Ara steele MD Age/Sex: 29/F Location: [facility] Status: Signed HPI Subjective Date of Service 05/30/25 Chief Complaint breast cancer History of Present [...] 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 January 25, [...] FINAL ASSESSMENT BI-RADS 6: KNOWN BIOPSY-PROVEN MALIGNANCY. February 14, 2025 bone scan: IMPRESSION: No scintigraphic evidence of osseous metastatic disease. February 21, 2025 chest abdomen and pelvis CT: IMPRESSION: Small umbilical hernia containing fat. Follicles are seen in both ovaries more prominent on the left side. Treatment summary and response: [facility] March 07, 2025 [facility] Medical History Encounter for antineoplastic chemotherapy and immunotherapy Encounter for education Wears glasses Non-smoker Shortness of breath on exertion History of echocardiogram Anemia Axillary lymphadenopathy Surgical History History of wisdom tooth extraction delivery delivered Family History Other No pertinent [...] addt'l complaints, except as documented, as per HPI and breast mass; Denies cough or dyspnea Gastrointestinal Gastrointestinal: Reports systems reviewed and no addt'l complaints, except as documented, diarrhea and other Details: Diarrhea manageable with Imodium ; Denies change in bowel habits, hematochezia or melena Genitourinary Genitourinary: Reports systems reviewed and no addt'l complaints, except as documented; Denies dysuria or hematuria Musculoskeletal Musculoskeletal: Reports [...] complaints, except as documented Intake Vital Signs 03/29/25 09:07 05/09/25 08:43 05/30/25 09:10 05/30/25 09:13 Height 5 ft 5 ft 5 ft 5 ft Weight: 76.714 kg BMI 33.0 BP 111/76 Blood Pressure Location Rt brachial Position Sitting Respiration 16 Pulse 112 H Pulse Source Monitor Temp 97.8 F Temperature Source Temporal Artery Pulse Oximetry (%) 95 Oxygen Delivery Method room air Intake Is patient in pain?: No Allergies No Known Allergies Allergy (Verified 05/30/25 09:12) Medications ?Medication ?Instructions ?Recorded ?Confirmed ?Type acetaminophen 500 mg capsule 1,000 mg PO Q6H PRN pain 02/12/25 05/30/25 History dexamethasone 4 mg tablet 8 mg (2 x 4 mg) PO .COMPLEX #60 02/28/25 05/30/25 Rx tabs lidocaine-prilocaine 2.5 %-2.5 % 1 applic topical ONCE PRN Port 02/28/25 05/30/25 Rx topical cream access port access 30 days # 30 grams ondansetron 8 mg disintegrating 8 mg PO Q8H PRN nausea and 02/28/25 05/30/25 Rx tablet vomiting #30 tabs prochlorperazine maleate 10 mg 10 mg PO Q6H PRN nausea and 02/28/25 05/30/25 Rx tablet vomiting #30 tabs Have you fallen in the past year?: No Central Venous Access Central Venous Access: Yes Port/PICC: Port CBC, CMP July 30, 2025 reviewed in EMR Exam Physical Exam Narrative ECOG 1 Const alert, oriented x3, no apparent distress and average body habitus General Appearance: cooperative HEENT normocephalic Face and Sinus: normal facial exam Mouth: oral and palatal mucosa normal Eyes General Eye: normal appearance of both eyes Neck no lymphadenopathy and no JVD Lymph Lymphatic: no lymphadenopathy noted Chest palpation of breasts normal Chest: vascular access Resp clear to auscultation bilaterally Cardio regular [...] no focal motor deficits Coordination / Balance: ckkhrf-mn-qvrq test normal Speech: speech normal Gait (Neuro): normal gait Psych mental status grossly normal Mood & Affect: anxious Coding Level of Care Code Off vis,est,level 4 Exam Problem Focused Diagnoses HER2-positive carcinoma of left breast C50.912; Z17.31 Axillary lymphadenopathy R59.0 Assessment and Plan Assessment and Plan (1) HER2-positive carcinoma of left breast: Status: Acute (2) Axillary lymphadenopathy: Status: Acute Plan 29-year-old female, premenopausal at diagnosis, with multifocal (at least 9 lesions identified on MRI of the breast) invasive ductal cancer of the left breast ER negative, IL negative, HER2/camila overexpressed 3+ with an abnormal leftaxillary lymph node on MRI but not by ultrasound and not accessible to biopsy. This is at least locally advanced cancer. Staging by CAT scan of the chest and abdomen and bone scan showed no evidence to suggest distant metastatic disease. PET scan was denied by insurance Started systemic neoadjuvant chemoimmunotherapy with TCHP March 07, 2025. Experienced expected side effects with manageable nausea, diarrhea, bony pains from growth factor support but no grade 3 or 4 toxicities. Chronic comorbid conditions: Headaches, anemia, impaired glucose tolerance (on steroids). Plan: 1. To continue neoadjuvant systemic chemoimmunotherapy with TCHP for a total 6 cycles to be followed by definitive surgery. Due to the multifocality of her cancer a total mastectomy is advisable. 2. Continue with supportive treatments as earlier discussed including use of antiemetics, antidiarrheals and nonnarcotic analgesics. 3. Noted hyperglycemia while on oral steroids indicated impaired glucose tolerance, discussed limiting carbohydrates and sweets at least on the 3 days ofprescribed steroids. Patient was seen , impression and plan discussed Ara Franklin MD Top Trimmer, [facility] Divisions of Medical Oncology & Hematology Department of Internal Medicine [facility] [place] [id number] This note was generated using a voice [...] you fallen in the past year?: No 05/30/25 0935 <Electronically signed by Ara hawley MD> Date _ Ara Franklin MD Cosigner Signature: Date (if applicable) CC: ~ [facility] Work Phone: Reason for referral (narrative)No reason for referral information available[facility] Work Phone: Rejgzu for visit Narrative* Imaging (Routine) - Authorized Specialty Diagnoses / Procedures Referred By Contronnie t Referred To Contact Radiology Diagnoses Mass of upper outer quadrant of left breast Procedures BI US breast limited left Ryan Cochran PA-C [address] [facility] [place] [address] Phone: tel: fax: Referral ID Status Reason Start Date Expiration Date Visits Requested Visits Authorized [id number] Authorized Perform Procedure 01/04/2025 01/04/2026 1 1 [facility] Work Phone: reason for visit Narrative* Imaging (Routine) - Pending Review Specialty Diagnoses / Procedures Referred By Contac t Referred To Contact Radiology Diagnoses Mass of upper outer quadrant of left breast Procedures BI mammo bilateral diagnostic tomosynthesis BI mammo left diagnostic tomosynthesis Ryan Cochran PA-C [address] [place] [id number] Phone: tel: fax: Referral ID Status Reason Start Date Expiration Date Visits Requested Visits Authorized [id number] Pending Review Perform Procedure 01/04/2025 01/04/2026 1 1 [facility] Work Phone: reason for visit Narrative* Imaging (Routine) - Pending Review Specialty Diagnoses / Procedures Referred By Contac t Referred To Contact Radiology Diagnoses Abnormal mammogram of left breast Mass of multiple sites of left breast Procedures BI US guided breast localization and biopsy left BI stereotactic guided breast left localization and biopsy Ryan Cochran PA-C [address] [place] [address] Phone: tel: fax: Referral ID Status Reason Start Date Expiration Date Visits Requested Visits Authorized [id number] Pending Review Perform Procedure 01/10/2025 01/10/2026 1 1 [facility] Work Phone: reason for visit Narrative* Imaging (Routine) - Authorized Specialty Diagnoses / Procedures Referred By Contac t Referred To Contact Radiology Diagnoses Abnormal mammogram of left breast Mass of multiple sites of left breast Procedures BI breast biopsy clip imaging Ryan Cochran PA-C [address] [place] [address] Phone: tel: fax: Referral ID Status Reason Start Date Expiration Date Visits Requested Visits Authorized [id number] Authorized Perform Procedure 01/10/2025 01/10/2026 1 1 [facility] Work Phone: Reason for visit Narrative* Referral (Routine) - Open Specialty Diagnoses / Procedures Referred By Ilsa amaya Referred To Contact Diagnoses Malignant neoplasm of female breast, unspecified estrogen receptor status, unspecified laterality, unspecified site of breast Encounter for nonprocreative genetic counseling Malignant neoplasm of left breast in female, estrogen receptor negative, unspecified site of breast Procedures Genetic Sendout: Custom Panel Paul Huynh MD [address] [place] [address], [address] [place] [address] Phone: tel: fax: Referral ID Status Reason Start Date Expiration Date V isits Requested Visits Authorized [id number] Open Specialty Services Required 02/16/2025 02/16/2026 1 1 [facility] Instructions * Patient Instructions - Elton Bauer [...] taking a prescription pain medicine, take an gkcd-wno-ghrzwmm medicine, such as acetaminophen (Tylenol), ibuprofen (Advil, [...] Log into your personal health record on [email or web address] and enter X558 in the Education box to learn more about Ear Infection (Otitis Media): Care Instructions. Current as of: March 06, 2016 Content Version: 11.2 [id number] [employer]. Care instructions adapted under license by your healthcare professional. If you have questions about a medical condition or this instruction, always ask your healthcare professional. [employer] disclaims any warranty or liability for your [...] FoundDocuments on File Type Date Recorded Patient Motel Clerk Expl anation Advance Directives and Livin g Will 01/04/2019 6:57 PM Documents on File Type Date Recorded Patient Motel Clerk Expl anation Advance Directives and Livin g Will 10/27/2020 8:17 AM Latest Code Status on File Code Status Date Activated Date Inactivated Comments Full Code 01/17/2021 5:25 AM Full Code 01/16/2021 9:58 PM 01/17/2021 5:25 AM Advance Directive Response Recorded Date/ Time Do you have a Healthcare Power of Professor Of Nursing? No February 12, 2025 2:05pm Advance Directive Response Recorded Date/ Time Do you have a Healthcare Power of Professor Of Nursing? No February 12, 2025 2:05pm Advance Directives on File No March 07, 2025 8:03am Living Will No March 07, 2025 8:03am Do you have a Healthcare Power of Professor Of Nursing? No March 07, 2025 8:03am Advance Directives No March 07 8:03am Advance Directive Response Recorded Date/ Time Do you have a Healthcare Power of Professor Of Nursing? No February 12, 2025 2:05pm [facility] Living Will No April 18, 2025 10:00am Do you have a Healthcare Power of Professor Of Nursing? No April 18, 2025 10:00am Advance Directives No April 10:00am Advance Directive Response Recorded Date/ Time Do you have a Healthcare Power of Professor Of Nursing? No February 12, 2025 2:05pm Advance Directives on File No Octob er 2024 10:15am Living Will No May 09 10:15am Do you have a Healthcare Power of Professor Of Nursing? No May 09, 2025 10:15am Advance Directives No May 09, 2025 10:15am Advance Directive Response Recorded Date/ Time Advance Directives on File No Octob er 2024 9:30am Living Will No June 07 9:30am Do you have a Healthcare Power of Professor Of Nursing? 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 May follow up with urologist. Drink 8-10 large glasses of ice water a day. Empty bladder every 2 hours. * Attachments The following attachments cannot be sent through Care Everywhere. * : Back Pain (Filipino) * : Weeks 18 to 22 (Filipino) * : When to Call (After 20 Weeks): General Info (Filipino) documented in this encounter* Attachments The following attachments cannot be sent through Care Everywhere. * Food Poisoning (Filipino) * Dehydration (Filipino) * : Weeks 26 to 30 (Filipino) documented in this encounter History of Present Illness * Herminio Mccullough MD - 01/04/2019 9:06 PM EDT Observation Note Patient Identification: Name: Shauna RaineyAge: 23 y.o.Sex: femaleDOB: 1995MRN: [id number] Chief Complaint: Chief Complaint Patient presents with [...] g 0 Allergies: Allergies Allergen Reactions Tree Pollen-Congolese Elm Itching Tree Pollen-Red Maple Itching Immunizations: [...] Franklin01/05/2019 documented in this encounter* Era Giordano, GEOFF - 10/02/2019 8:26 AM EST [facility] [address] [facility] [address] [facility] [id number] Chief Complaint Patient presents with Left Arm [...] for further review. 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 J [facility] 2024 9:48am Chief Complaint Admit Date BREAST CANCER- DISCUSS SX January 23 9:48am INVASIVE DUCTAL CARCIMONA January 25 9:45am BREAST CA January 29, 2025 3:08 pm Reason for Visit Admit Date HER2-positive carcinoma of left breast J [facility] 2024 9:48am Invasive ductal carcinoma of left breast January 23, 2025 9:48am 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 J [facility] 2024 9:48am Axillary lymphadenopathy January 29, 2025 3:08pm HER2-positive carcinoma of left breast J [facility] 2024 3:08pm Anemia January 29, 2025 3:08 [...] Date HER2-positive carcinoma of left breast J une 2024 9:48am Invasive ductal carcinoma of left breast January 23, 2025 9:48am 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 J [facility] 2024 9:48am Axillary lymphadenopathy January 29, 2025 3:08pm HER2-positive carcinoma of left breast J [facility] 2024 3:08pm Anemia January 29, 2025 3:08 pm Encounter for breast reconstruction foll owing mastectomy February 08, 2025 1:55pm HER2-positive carcinoma of left breast J [facility] 2024 1:55pm Invasive ductal carcinoma of [...] CANCER STAGING February 14, 2025 8:2 6am Chief Complaint Admit Date BREAST CANCER- DISCUSS [...] CANCER STAGING February 14, 2025 8:2 6am BREAST CANCER STAGING February 21, 2025 6: 33am Chief Complaint Admit Date BREAST CANCER- DISCUSS [...] CANCER STAGING February 14, 2025 8:2 6am BREAST CANCER STAGING February 21, 2025 6: 33am suture removal February 28, 2025 3:15 pm Chief Complaint Admit Date BREAST CANCER- [...] CANCER STAGING February 14, 2025 8:2 6am BREAST CANCER STAGING February 21, 2025 6: 33am suture removal February 28, 2025 3:15 pm CHEMO ED February 28, 2025 3:24 pm Reason for Visit Admit Date HER2-positive carcinoma of left breast J une 2024 9:48am Invasive ductal carcinoma of left breast January 23, 2025 9:48am 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 J une 2024 9:48am Axillary lymphadenopathy January 29, 2025 3:08pm HER2-positive carcinoma of left breast J [facility] 2024 3:08pm Anemia January 29, 2025 3:08 pm Encounter for breast reconstruction foll owing mastectomy February 08, 2025 1:55pm HER2-positive carcinoma of left breast J [facility] 2024 1:55pm Invasive ductal carcinoma of left breast February 08, 2025 1:55pm Axillary lymphadenopathy February 28, 2025 3:24pm Encounter for education February 28, 2025 3:24pm HER2-positive carcinoma of left breast J [facility] 2024 3:24pm Anemia February 28, 2025 3:24 pm Chief Complaint Admit Date BREAST CANCER- DISCUSS SX January 23 9:48am INVASIVE DUCTAL CARCIMONA January 25 9:45am BREAST CA January 29, 2025 3:08 pm RIGHT BREAST CANCER, ABNORMAL BREAST MRI January 31, 2025 9:58am Malignant neoplasm of unspecified site o f left fem February 08, 2025 12:50pm BREAST RECONSTRUCTION February 08, 2025 1:5 5pm Insertion, Vascular Port right poss left February 13, 2025 6:06am Insertion, Vascular Port right poss left February 13, 2025 7:19am BREAST CANCER STAGING February 14, 2025 8:2 6am BREAST CANCER STAGING February 21, 2025 6: 33am suture removal February 28, 2025 3:15 pm CHEMO ED February 28, 2025 3:24 pm BREAST March 20, 2025 2: 45pm TOX CHECK - LABS March 20, 2025 2: 51pm Reason for Visit Admit Date HER2-positive carcinoma of left breast J [facility] 2024 9:48am Invasive ductal carcinoma of left breast January 23, 2025 9:48am 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 J [facility] 2024 9:48am Axillary lymphadenopathy January 29, 2025 3:08pm HER2-positive carcinoma of left breast J [facility] 2024 3:08pm Anemia January 29, 2025 3:08 pm Encounter for breast reconstruction foll owing mastectomy February 08, 2025 1:55pm HER2-positive carcinoma of left breast J [facility] 2024 1:55pm Invasive ductal carcinoma of left breast February 08, 2025 1:55pm Encounter for fitting and adjustment of vascular catheter February 28, 2025 3:15pm Axillary lymphadenopathy February 28, 2025 3:24pm Encounter for education February 28, 2025 3:24pm HER2-positive carcinoma of left breast J [facility] 2024 3:24pm Anemia February 28, 2025 3:24 pm Axillary lymphadenopathy March 20 2:51pm HER2-positive carcinoma of left breast A [facility] 2024 2:51pm Anemia March 20, 2025 2: 51pm Chief Complaint Admit Date BREAST CANCER- DISCUSS SX January 23 9:48am INVASIVE DUCTAL CARCIMONA January 25 9:45am BREAST CA January 29, 2025 3:08 pm RIGHT BREAST CANCER, ABNORMAL BREAST MRI January 31, 2025 9:58am Malignant neoplasm of unspecified site o f left fem February 08, 2025 12:50pm BREAST RECONSTRUCTION February 08, 2025 1:5 5pm Insertion, Vascular Port right poss left February 13, 2025 6:06am Insertion, Vascular Port right poss left February 13, 2025 7:19am BREAST CANCER STAGING February 14, 2025 8:2 6am BREAST CANCER STAGING February 21, 2025 6: 33am suture removal February 28, 2025 3:15 pm CHEMO ED February 28, 2025 3:24 pm TOX CHECK - LABS March 20, 2025 2: 51pm BREAST March 29, 2025 8: 15am 3 WKS - LABS - TCHP March 29, 2025 8: 18am Reason for Visit Admit Date HER2-positive carcinoma of left breast J une 2024 9:48am Invasive ductal carcinoma of left breast January 23, 2025 9:48am 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 J une 2024 9:48am Axillary lymphadenopathy January 29, 2025 3:08pm HER2-positive carcinoma of left breast J une 2024 3:08pm Anemia January 29, 2025 3:08 pm Encounter for breast reconstruction foll owing mastectomy February 08, 2025 1:55pm HER2-positive carcinoma of left breast J [facility] 2024 1:55pm Invasive ductal carcinoma of left breast February 08, 2025 1:55pm Encounter for fitting and adjustment of vascular catheter Al[place] 23rd, 2025 3:15pm Axillary lymphadenopathy February 28, 2025 3:24pm Encounter for education February 28, 2025 3:24pm HER2-positive carcinoma of left breast J [facility] 2024 3:24pm Anemia February 28, 2025 3:24 pm Axillary lymphadenopathy March 20 2:51pm HER2-positive carcinoma of left breast A [facility] 2024 2:51pm Anemia March 20, 2025 2: 51pm Axillary lymphadenopathy March 29 8:18am HER2-positive carcinoma of left breast A [facility] 2024 8:18am Impaired glucose tolerance March 29, 2025 8:18am Chief Complaint Admit Date BREAST CANCER- DISCUSS SX January 23 9:48am INVASIVE DUCTAL CARCIMONA January 25 9:45am BREAST CA January 29, 2025 3:08 pm RIGHT BREAST CANCER, ABNORMAL BREAST MRI January 31, 2025 9:58am Malignant neoplasm of unspecified site o f left fem February 08, 2025 12:50pm BREAST RECONSTRUCTION February 08, 2025 1:5 5pm Insertion, Vascular Port right poss left February 13, 2025 6:06am Insertion, Vascular Port right poss left February 13, 2025 7:19am BREAST CANCER STAGING February 14, 2025 8:2 6am BREAST CANCER STAGING February 21, 2025 6: 33am suture removal February 28, 2025 3:15 pm CHEMO ED February 28, 2025 3:24 pm TOX CHECK - LABS March 20, 2025 2: 51pm 3 WKS - LABS - TCHP March 29, 2025 8: 18am 3 WKS - LABS - TCHP April 18, 2025 8:13am BREAST April 18, 2025 8:15am Reason for Visit Admit Date HER2-positive carcinoma of left breast J [facility] 2024 9:48am Invasive ductal carcinoma of left breast January 23, 2025 9:48am 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 J [facility] 2024 9:48am Axillary lymphadenopathy January 29, 2025 3:08pm HER2-positive carcinoma of left breast J [facility] 2024 3:08pm Anemia January 29, 2025 3:08 pm Encounter for breast reconstruction foll owing mastectomy February 08, 2025 1:55pm HER2-positive carcinoma of left breast J [facility] 2024 1:55pm Invasive ductal carcinoma of left breast February 08, 2025 1:55pm Encounter for fitting and adjustment of vascular catheter February 28, 2025 3:15pm Axillary lymphadenopathy February 28, 2025 3:24pm Encounter for education February 28, 2025 3:24pm HER2-positive carcinoma of left breast J [facility] 2024 3:24pm Anemia February 28, 2025 3:24 pm Axillary lymphadenopathy March 20 2:51pm HER2-positive carcinoma of left breast A [facility] 2024 2:51pm Anemia March 20, 2025 2: 51pm Axillary lymphadenopathy March 29 8:18am HER2-positive carcinoma of left breast A [facility] 2024 8:18am Impaired glucose tolerance March 29, 2025 8:18am Axillary lymphadenopathy April 18, 2025 8:13am HER2-positive carcinoma of left breast S e[facility] 2024 8:13am Chief Complaint Admit Date BREAST CANCER- DISCUSS SX January 23 9:48am INVASIVE DUCTAL CARCIMONA January 25 9:45am BREAST CA January 29, 2025 3:08 pm RIGHT BREAST CANCER, ABNORMAL BREAST MRI January 31, 2025 9:58am Malignant neoplasm of unspecified site o f left fem February 08, 2025 12:50pm BREAST RECONSTRUCTION February 08, 2025 1:5 5pm Insertion, Vascular Port right poss left February 13, 2025 6:06am Insertion, Vascular Port right poss left February 13, 2025 7:19am BREAST CANCER STAGING February 14, 2025 8:2 6am BREAST CANCER STAGING February 21, 2025 6: 33am suture removal February 28, 2025 3:15 pm CHEMO ED February 28, 2025 3:24 pm TOX CHECK - LABS March 20, 2025 2: 51pm 3 WKS - LABS - TCHP March 29, 2025 8: 18am 3 WKS - LABS - TCHP April 18, 2025 8:13am BREAST May 09, 2025 8: 15am 3 WKS - LABS - TCHP May 09, 2025 8: 17am Reason for Visit Admit Date HER2-positive carcinoma of left breast J une 2024 9:48am Invasive ductal carcinoma of left breast January 23, 2025 9:48am 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 J une 2024 9:48am Axillary lymphadenopathy January 29, 2025 3:08pm HER2-positive carcinoma of left breast J une 2024 3:08pm Anemia January 29, 2025 3:08 pm Encounter for breast reconstruction foll owing mastectomy February 08, 2025 1:55pm HER2-positive carcinoma of left breast J [facility] 2024 1:55pm Invasive ductal carcinoma of left breast February 08, 2025 1:55pm Encounter for fitting and adjustment of vascular catheter February 28, 2025 3:15pm Axillary lymphadenopathy February 28, 2025 3:24pm Encounter for education February 28, 2025 3:24pm HER2-positive carcinoma of left breast J [facility] 2024 3:24pm Anemia February 28, 2025 3:24 pm Axillary lymphadenopathy March 20 2:51pm HER2-positive carcinoma of left breast A [facility] 2024 2:51pm Anemia March 20, 2025 2: 51pm Axillary lymphadenopathy March 29 8:18am HER2-positive carcinoma of left breast A [facility] 2024 8:18am Impaired glucose tolerance March 29, 2025 8:18am Axillary lymphadenopathy April 18, 2025 8:13am HER2-positive carcinoma of left breast S eptember 2024 8:13am Axillary lymphadenopathy May 09 8:17am Encounter for antineoplastic chemotherapy and immunotherapy May 09, 2025 8:17am HER2-positive carcinoma of left breast O ctober 2024 8:17am Chief Complaint Admit Date BREAST CANCER STAGING February 21, 2025 6: 33am suture removal February 28, 2025 3:15 pm CHEMO ED February 28, 2025 3:24 pm TOX CHECK - LABS March 20, 2025 2: 51pm 3 WKS - LABS - TCHP March 29, 2025 8: 18am 3 WKS - LABS - TCHP April 18, 2025 8:13am 3 WKS - LABS - TCHP May 09, 2025 8: 17am 3 WKS - LABS - TCHP May 30, 2025 8 :16am Encounter for therapeutic drug level mon itoring May 31, 2025 1:43pm BREAST June 07, 2025 8 :30am ACUTE, LABS June 07, 2025 8 :58am DISCUSS BREAST SX June 08, 2025 1 :46pm SURGERY CONSULT June 15, 2025 1 :47pm Reason for Visit Admit Date Encounter for fitting and adjustment of vascular catheter February 28, 2025 3:15pm Axillary lymphadenopathy February 28, 2025 3:24pm Encounter for education February 28, 2025 3:24pm HER2-positive carcinoma of left breast J [facility] 2024 3:24pm Anemia February 28, 2025 3:24 pm Axillary lymphadenopathy March 20 2:51pm HER2-positive carcinoma of left breast A [facility] 2024 2:51pm Anemia March 20, 2025 2: 51pm Axillary lymphadenopathy March 29 8:18am HER2-positive carcinoma of left breast A [facility] 2024 8:18am Impaired glucose tolerance March 29, 2025 8:18am Axillary lymphadenopathy April 18, 2025 8:13am HER2-positive carcinoma of left breast S eptember 2024 8:13am Axillary lymphadenopathy May 09 8:17am Encounter for antineoplastic chemotherapy and immunotherapy May 09, 2025 8:17am HER2-positive carcinoma of left breast O ctober 2024 8:17am Axillary lymphadenopathy May 30 025 8:16am HER2-positive carcinoma of left breast O ctober 2024 8:16am Axillary lymphadenopathy June 07 025 8:58am HER2-positive carcinoma of left breast O ctober 2024 8:58am Mucositis June 07, 2025 8 :58am Sore throat June 07, 2025 8 :58am HER2-positive carcinoma of left breast O ctober 2024 1:46pm Invasive ductal carcinoma of left breast June 08, 2025 1:46pm Encounter for breast reconstruction foll owing mastectomy June 15, 2025 1:47pm HER2-positive carcinoma of left breast N ovember 2024 1:47pm Invasive ductal carcinoma of left breast June 15, 2025 1:47pm Additional Source Comments INFORMATION SOURCE (unrecogn ized section and content) DATE CREATED AUTHOR 01/28/2018 [facility] DATE CREATED AUTHOR AUTHOR'S ORGANIZ ATION 05/24/2019 [facility] DATE CREATED AUTHOR AUTHOR'S ORGANIZ ATION 06/10/2019 [facility] DATE CREATED AUTHOR AUTHOR'S ORGANIZ ATION 06/17/2019 [facility] DATE CREATED AUTHOR AUTHOR'S ORGANIZ ATION 01/31/2021 [facility] DATE CREATED AUTHOR AUTHOR'S ORGANIZ ATION 05/24/2024 [facility] DATE CREATED AUTHOR AUTHOR'S ORGANIZ ATION 06/04/2024 [facility] DATE CREATED AUTHOR AUTHOR'S ORGANIZ ATION [facility] DATE CREATED AUTHOR AUTHOR'S ORGANIZ ATION 01/31/2025 [facility] DATE CREATED AUTHOR AUTHOR'S ORGANIZ ATION 03/12/2025 [facility] DATE CREATED AUTHOR AUTHOR'S ORGANIZ ATION 03/17/2025 [facility] DATE CREATED AUTHOR AUTHOR'S ORGANIZ ATION 06/20/2025 [facility] DATE CREATED AUTHOR AUTHOR'S ORGANIZ ATION 06/21/2025 [facility] DATE CREATED AUTHOR AUTHOR'S ORGANIZ ATION 06/21/2025 [facility] Reason for Visit (unrecogniz ed section [...] F/U WITH LAB S AND BREAST TESTING Reason Comments Follow-up C/O BURNING UPON URI NATION, FREQUENCY X 3 DAYS, HAD 100.8 FEVER ON 03/12/25 Reason Comments Abdominal Pain Pt here with c/o epi gastric pain and nausea x 1-2 hours, pt is currently undergoing chemo or breast ca Quick Note - Dorina Macias RN - [...] has an anterior placenta. ED PROVIDER NOTE [facility] NAME: Shauna Rainey AGE: 24 y.o. : 1995 VISIT DATE: 10/27/2020 CSN: [id number] PCP: Elton Bauer MD Chief Complaint Patient presents with Emesis Chief complaint nausea vomiting History of present illness this is a 24-year-old female who is 22 weeks . States that she had a sandwich from [employer] approximately 12 hours ago subsequently developed nausea [...] file Gets together: Not on file Attends mandaeism service: Not on file Active member of club or organization: Not on file Attends meetings of clubs or organizations: Not on file Relationship status: Not on file Other Topics Concern Not on file Social History Narrative Not on file Previous Medications Medication Sig [DISCONTINUED] norethindrone (MICRONOR) 0.35 mg tablet Take 1 tablet by mouth daily. Allergies Allergen Reactions Tree Pollen-Congolese Elm Itching Tree Pollen-Red Maple Itching Review [...] 1. Elton Bauer MD. Specialty: Family Medicine [address] [place], [place] [id number] Contact information for after-discharge care Follow-up information [...] Ruiz RN)1853 (Given - Provider: Theresa Ruiz, LISA) 1031 (Given - Provider: Theresa Ruiz, LISA)1651 [...] Theresa Ruiz RN)1420 (Given - Provider: Theresa Ruiz, LISA)2111 (Given - Provider: Gianna Rabago, LISA)2345 (Not Given - Provider: Gianna Rabago RN - Reason: Order parameters not met) 0430 (Given - Provider: Gianna Rabago, LISA)1031 (Given [...] Ruiz RN - Reason: Loss of IV access)2100 (Due) sodium chloride flush 0.9 % injection 10 mL 10 mL, Intravenous, EVERY 12 HOURS SCHEDULED (2 times per day), First dose on Wed01/17/21 at 0900, 1510 (Given - Provider: Adri Griffin RN)2121 (Given - Provider: Tamiko Martinez RN) 09 (Due)2109 (Not Given - Provider: Gianna Rabago RN - Reason: Order parameters not met) 113 (Not Given - Provider: Theresa Ruiz RN - Reason: Loss of IV access)2099 (Due) Evwdvsy-Cylqez-Povww Pertussis (BOOSTRIX) injection 0.5 mL 0.5 mL, [...] follow bolus received on Labor and Delivery 030 (New Bag - Provider: Kim Antunez RN) oxytocin (PITOCIN) 30 units in 500 mL infusion () 250 vicente-units/min (250 mL/hr), Intravenous, at 250 mL/hr, CONTINUOUS, Starting on Wed01/17/21 at 0300, For 4 hours, To follow bolus received on Labor and Delivery 0103 (New Bag - Provider: Kim Antunez, RN) PRN Medication Order 01/17/2021 01/18/2021 01/19/2021 [...] 24 hours., 0831 (Given - Provider: Adri Griffin, LISA)1509 (Given - Provider: Adri Griffin RN)2120 (Given - Provider: Tamiko Martinez, LISA) 0254 (Given - Provider: Tamiko Martinez, LISA)0831 (Given - Provider: Theresa Ruiz, RN)1420 (Given - Provider: Theresa Ruiz, RN)211 (Given - Provider: Gianna Rabago, LISA) 0431 (Given - Provider: Gianna Rabago RN)1030 (Given - Provider: Theresa Ruiz, LISA)1652 (Given - Provider: Theresa Ruiz RN) diphenhydrAMINE [...] Ruiz, LISA)2112 (See Alternative - Provider: Gianna Rabago RN) 0431 (See Alternative - Provider: Gianna Rabago RN)1031 (See Alternative - Provider: Theresa Ruiz, LISA)1652 (See Alternative - Provider: Theresa Ruiz, LISA) oxyCODONE (ROXICODONE) immediate release tablet 5 mg(Linked Group 4) 5 mg, Oral, EVERY 4 HOURS PRN, Pain Moderate (4-6), Starting on Wed01/17/21 at 0524, 0832 (Given - Provider: Adri Griffin RN)1248 (See Alternative - Provider: Adri Griffin RN)1729 (See Alternative - Provider: Adri Griffin RN)2119 (Given - Provider: Tamiko Martinez, LISA) 0254 (Given - Provider: Tamiko Martinez, LISA)0831 (Given - Provider: Theresa Ruiz, LISA)1420 (Given - Provider: Theresa Ruiz, RN)211 (Given - Provider: Gianna Rabago, RN) 0431 (Given - Provider: Gianna Rabago, RN)1031 (Given - Provider: Theresa Ruiz, LISA)1652 [...] 2250 (New Bag - Provider: Jaimee Noland, LISA)2351 (Stopped - Provider: Jaimee Noland RN) cefTRIAXone (Rocephin) 1 g in dextrose (iso) IV 50 mL (COMPLETED) 1 g, intravenous, at 100 mL/hr, Administer over 30 Minutes, Once, On Wed05/22/24 at 2245, For 1 dose, premix bag, Suspected Indication (Select all that apply): Pneumonia, Type of Therapy: Empiric, Indications: Pneumonia 2250 (New Bag - Provider: Jaimee Noland RN)2320 (Stopped - Provider: Jaimee Noland RN) iohexol (OMNIPaque) 350 mg iodine/mL solution [...] or chew. 2345 (Given - Provider: Jaimee Noland RN) sodium chloride 0.9 % bolus 1,000 mL (COMPLETED) 1,000 mL, intravenous, at 999 mL/hr, Administer over 1 Hours, Once, On Wed05/22/24 at 2335, For 1 dose 2345 (New Bag - Provider: Jaimee Noland RN) 0035 (Stopped - Provider: Jaimee Noland RN) Scheduled Medication Order 06/17/2025 06/18/2025 06/19/2025 acetaminophen (Tylenol) tablet 650 mg (COMPLETED) 650 mg, oral, Once, On Wed06/18/25 at 2320, For 1 dose, If ordered PRN for pain, nurse is permitted to administer this medication for higher pain scores based on patient preference? Yes 232 (Given - Provider: Lilian Sullivan RN - Comment: temp 100.1F) cefTRIAXone (Rocephin) 1 g in dextrose (iso) IV 50 mL 1 g, intravenous, at 100 mL/hr, Administer over 30 Minutes, Once, On Wed06/18/25 at 2350, For 1 dose, premix bag, Suspected Indication (Select all that apply): Urinary Tract Infection, Type of Therapy: Empiric, Type of Urinary Tract Infection: Uncomplicated, Indications: Urinary Tract Infection 0120 (Not Given - Provider: Letitia Chaudhari RN - Reason: Other - Comment: pt didn't want and neither did her dr) iohexol (OMNIPaque) 350 mg iodine/mL solution 72 mL (COMPLETED) 72 mL, intravenous, Once in imaging, Starting on Wed06/18/25 at 2242, For 1 dose 2305 (Given - Provider: Genny Ramirez) magnesium sulfate 2 g in sterile water for injection 50 mL (COMPLETED) 2 g, intravenous, at 150 mL/hr, Administer over 20 Minutes, Once, On Wed06/18/25 at 2235, For 1 dose, Indication for rapid magnesium sulfate IV infusion: Asthma 224 (New Bag - Provider: Lilian Sullivan RN) 0039 (Stopped - Provider: Lilian Sullivan RN) ondansetron (Zofran) injection 4 mg (COMPLETED) 4 mg, intravenous, Once, On Wed06/18/25 at 2155, For 1 dose, When administering via IV Push, administer over 3-5 minutes. 2205 (Given - Provider: Lilian Sullivan RN) pantoprazole (Protonix) injection 40 mg (COMPLETED) 40 mg, intravenous, Once, On Wed06/18/25 at 2155, For 1 dose, Reconstitute each 40 mg vial with 10 mL NS to make 4 mg/mL solution. 2206 (Given - Provider: Lilian Sullivan RN) potassium chloride CR (Klor-Con M20) ER tablet 20 mEq (COMPLETED) 20 mEq, oral, Once, On Wed06/18/25 at 2345, For 1 dose, Best given with food and a glass of water to minimize gastric irritation. Do not crush or chew. 0001 (Given - Provid er: Lilian Sullivan RN) sodium chloride 0.9 % bolus 1,000 mL (COMPLETED) 1,000 mL, intravenous, at 999 mL/hr, Administer over 1 Hours, Once, On Wed06/19/25 at 0115, For 1 dose 0118 (New Bag - Provider: Letitia Chaudhari RN)0214 (Stopped - Provider: Mayco Hughes RN) sodium chloride 0.9 % bolus 500 mL (COMPLETED) 500 mL, intravenous, at 500 mL/hr, Administer over 1 Hours, Once, On Wed06/18/25 at 2155, For 1 dose 2206 (New Bag - Provider: Lilian Sullivan, LISA)2255 (Stopped - Provider: Lilian Sullivan RN) sodium chloride 0.9 % bolus 500 mL (COMPLETED) 500 mL, intravenous, at 500 mL/hr, Administer over 1 Hours, Once, On Wed06/18/25 at 2350, For 1 dose 0002 (New Bag - Provider: Lilian Sullivan, LISA)0214 (Stopped - Provider: Mayco Hughes RN) Continuous Medication Order 06/17/2025 06/18/2025 06/19/2025 sodium chloride 0.9% infusion 125 mL/hr, intravenous, Continuous, Starting on Wed06/18/25 at 2155, For 1 day 2256 (Due - Provider: Lilian Sullivan, LISA) Care Teams (unrecognized sec tion and content) Clinic Licensed Practical Nurse Relationship Specialty Start Date End Date Kinjal Cleveland MD [address] [id number] PCP - General Family Medicine 07/04/21 Clinic Licensed Practical Nurse Relationship Specialty Start Date End Date Kinjal [place] MD [address] [id number] PCP - General Family Medicine 07/04/21 Clinic Licensed Practical Nurse Relationship Specialty Start Date End Date Kinjal Cleveland MD [address] [address] PCP - General Family Medicine 07/04/21 Clinic Licensed Practical Nurse Relationship Specialty Start Date End Date Kinjal [place] MD [address] [address] PCP - General Family Medicine 07/04/21 Clinic Licensed Practical Nurse Relationship Specialty Start Date End Date Kinjal [place] MD [address] [id number] PCP - General Family Medicine 05/22/24 Clinic Licensed Practical Nurse Relationship Specialty Start Date End Date Kinjal [place] MD [address] [address] PCP - General Family Medicine 05/22/24 Clinic Licensed Practical Nurse Relationship Specialty Start Date End Date Kinjal [place] MD [address] [address] PCP - General Family Medicine 05/22/24 Clinic Licensed Practical Nurse Relationship Specialty Start Date End Date Ryan Cochran PA-C [address] [place] [address] PCP - General Internal Medicine 01/04/25 Clinic Licensed Practical Nurse Relationship Specialty Start Date End Date Ryan Cochran PA-C [address] [place] [address] PCP - General Internal Medicine 01/04/25 Clinic Licensed Practical Nurse Relationship Specialty Start Date End Date Ryan Cochran PA-C [address] [place] [address] PCP - General Internal Medicine 01/04/25 Team Status: Active Member Role Status Dates YENNI Nunez Primary Care Provider Active Team Status: Inactive Member Role Status Dates YENNI Nunez Primary Care Provider Active Start: January 23, 2025 End: January 23, 2025 YENNI Nunez Referring Provider Active Start: January 23, 2025 End: January 23, 2025 Dr. Tamiko Mccarthy MD Attending Provider Active Start: January 23, 2025 End: January 23, 2025 Team Status: Active Member Role Status Dates YENNI Nunez Primary Care Provider Active Start: January 25, 2025 Dr. Tamiko Mccarthy MD Attending Provider Active Start: January 25, 2025 Dr. Tamiko Mccarthy MD Referring Provider Active Start: January 25, 2025 Team Status: Inactive Member Role Status Dates Ryan Cochran PA, PA Primary Care Provider Active Start: January 29, 2025 End: January 29, 2025 Dr. Ara [place] MD Attending Provider Active Start: January 29, 2025 End: January 29, 2025 Dr. Tamiko Mccarthy MD Referring Provider Active Start: January 29, 2025 End: January 29, 2025 Team Status: Active Member Role Status Dates Ryan HYMAN, PA Primary Care Provider Active Start: January 29, 2025 Dr. Ara [place] MD Attending Provider Active Start: January 29, 2025 Dr. Ara [place] MD Referring Provider Active Start: January 29, 2025 Team Status: Inactive Member Role Status Dates Ryan Cochran PA, PA Primary Care Provider Active Start: January 25, 2025 End: January 25, 2025 Dr. Tamiko Mccarthy MD Attending Provider Active Start: January 25, 2025 End: January 25, 2025 Dr. Tamiko Mccarthy MD Referring Provider Active Start: January 25, 2025 End: January 25, 2025 Clinic Licensed Practical Nurse Relationship Specialty Start Date End Date Ryan Cochran PA-C [address] [place] [address] PCP - General Internal Medicine 01/04/25 Team Status: Active Member Role/Relationship Status Dates Ryan Cochran PA, PA Primary Care Provider Active Team Status: Inactive Member Role/Relationship Status Dates Ryan Cochran PA, PA Primary Care Provider Active Start: January 23, 2025 End: January 23, 2025 Ryan Cochran PA, PA Referring Provider Active Start: January 23, 2025 End: January 23, 2025 Dr. Tamiko Mccarthy MD Attending Provider Active Start: January 23, 2025 End: January 23, 2025 Team Status: Inactive Member Role/Relationship Status Dates Ryan HYMAN, PA Primary Care Provider Active Start: January 25, 2025 End: January 25, 2025 Dr. Tamiko Mccarthy MD Attending Provider Active Start: January 25, 2025 End: January 25, 2025 Dr. Tamiko Mccarthy MD Referring Provider Active Start: January 25, 2025 End: January 25, 2025 Team Status: Inactive Member Role/Relationship Status Dates Ryan [place] PA, PA Primary Care Provider Active Start: January 29, 2025 End: January 29, 2025 Dr. Ara [place] MD Attending Provider Active Start: January 29, 2025 End: January 29, 2025 Dr. Tamiko Mccarthy MD Referring Provider Active Start: January 29, [...] 2025 End: January 31, 2025 Dr. Tamiko Mccarthy MD Attending Provider Active Start: January 31, 2025 End: January 31, 2025 Dr. Tamiko Mccarthy MD Referring Provider Active Start: January 31, 2025 End: January 31, 2025 Team Status: Active Member Role/Relationship Status Dates Ryan [place] PA, PA Primary Care Provider Active Start: February 08, 2025 Dr. Ara [place] MD Attending Provider Active Start: February 08, 2025 Dr. Ara [place] MD Referring Provider Active Start: February 08, 2025 Team Status: Active Member Role/Relationship Status Dates Ryan [place] PA, PA Primary Care Provider Active Start: February 08, 2025 Dr. Jayjay Mccabe MD Attending Provider Active S tart: February 08, 2025 Team Status: Inactive Member Role/Relationship Status Dates Ryan [place] PA, PA Primary Care Provider Active Start: February 08, 2025 End: February 08, 2025 Ryan [place] PA, PA Referring Provider Active Start: February 08, 2025 End: February 08, 2025 Dr. Michael Pantoja MD Attending Provider Active Start: February 08, 2025 End: February 08, 2025 Team Status: Inactive Member Role/Relationship Status Dates Ryan HYMAN, PA Primary Care Provider Active Start: February 13, 2025 End: February 13, 2025 Dr. Tamiko Mccarthy MD Attending Provider Active Start: February 13, 2025 End: February 13, 2025 Dr. Tamiko Mccarthy MD Referring Provider Active Start: February 13, 2025 End: February 13, 2025 Team Status: Active Member Role/Relationship Status Dates Ryan HYMAN, PA Primary Care Provider Active Start: February 13, 2025 Dr. Tamiko Mccarthy MD Attending Provider Active Start: February 13, 2025 Dr. Tamiko Mccarthy MD Referring Provider Active Start: February 13, 2025 Dr. Tamiko Mccarthy MD Other Provider Active S tart: February 13, 2025 Team Status: Inactive Member Role/Relationship Status Dates Ryan Cochran PA, PA Primary Care Provider Active Start: February 08, 2025 End: February 08, 2025 Dr. Ara [place] MD Attending Provider Active Start: February 08, 2025 End: February 08, 2025 Dr. Ara [place] MD Referring Provider Active Start: February 08, 2025 End: February 08, 2025 Team Status: Active Member Role/Relationship Status Dates Ryan HYMAN, PA Primary Care Provider Active Start: February 14, 2025 Sheilalora Eubanks [employer] POWER PLANT OPERATOR, [employer] POWER PLANT OPERATOR-C Attending Provider Active Start: February 14, 2025 Sheila Raimundo [employer] POWER PLANT OPERATOR, [employer] POWER PLANT OPERATOR-C Referring Provider Active Start: February 14, 2025 Team Status: Inactive Member Role/Relationship Status Dates Ryan HYMAN, PA Primary Care Provider Active Start: February 14, 2025 End: February 14, 2025 Sheila Raimundo [employer]TURE POWER PLANT OPERATOR, [employer]URE POWER PLANT OPERATOR-C Attending Provider Active Start: February 14, 2025 End: February 14, 2025 Sheila Raimundo [employer]TURE POWER PLANT OPERATOR, [employer]TURE POWER PLANT OPERATOR-C Referring Provider Active Start: February 14, 2025 End: February 14, 2025 Clinic Licensed Practical Nurse Relationship Specialty Start Date End Date Ryan Cochran PA-C [address] [place] [address] PCP - General Internal Medicine 02/21/25 Brigid Pitts MD [address] [place] [address] [address] [place] [address] Correctional Corporal Obstetrics Gynecology 01/16/21 Radha Brantley MD [address] [facility] [address] [place] [address] Perinatologist Maternal Medicine 01/16/21 Uzma Mccallum, [place] [address] Genetic Counselor Genetics 02/16/25 Team Status: Inactive Member Role/Relationship Status Dates YENNI Nunez Primary Care Provider Active Start: February 21, 2025 End: February 21, 2025 Sheila Eubanks NP, [employer]OWER PLANT OPERATOR-C Attending Provider Active Start: February 21, 2025 End: February 21, 2025 Sheila Eubanks NP, NP-C Referring Provider Active Start: February 21, 2025 End: February 21, 2025 Team Status: Inactive Member Role/Relationship Status Dates YENNI Nunez Primary Care Provider Active Start: February 28, 2025 End: February 28, 2025 YENNI Nunez Referring Provider Active Start: February 28, 2025 End: February 28, 2025 Dr. Tamiko Mccarthy MD Attending Provider Active Start: February 28, 2025 End: February 28, 2025 Team Status: Inactive Member Role/Relationship Status Dates YENNI Nunez Primary Care Provider Active Start: February 28, 2025 End: February 28, 2025 Ryan HYMAN PA Referring Provider Active Start: February 28, 2025 End: February 28, 2025 Sheila Eubanks NP [employer] PL[employer] OPERATOR-C Attending Provider Active Start: February 28, 2025 End: February 28, 2025 Clinic Licensed Practical Nurse Relationship Specialty Start Date End Date Ryan Cochran PA-C [address] [place] [address] PCP - General Internal Medicine 01/04/25 Team Status: Inactive Member Role/Relationship Status Dates Ryanchristopher Hilliardall PA, PA Primary Care Provider Active Start: January 31, 2025 End: January 31, 2025 Dr. Tamiko Mccarthy MD Attending Provider Active Start: January 31, 2025 End: January 31, 2025 Dr. Tamiko Mccarthy MD Referring Provider Active Start: January 31, 2025 End: January 31, 2025 Team Status: Inactive Member Role/Relationship Status Dates Ryan Dimas PA, PA Primary Care Provider Active Start: February 08, 2025 End: February 08, 2025 Dr. Ara [place] MD Attending Provider Active Start: February 08, 2025 End: February 08, 2025 Dr. Ara [place] MD Referring Provider Active Start: February 08, 2025 End: February 08, 2025 Team Status: Active Member Role/Relationship Status Dates Ryanchristopher Hilliardall PA, PA Primary Care Provider Active Start: February 08, 2025 Dr. Jayjay Mccabe MD Attending Provider Active S tart: February 08, 2025 Team Status: Inactive Member Role/Relationship Status Dates Ryan Dimas PA, PA Primary Care Provider Active Start: February 08, 2025 End: February 08, 2025 Ryan [place] PA, PA Referring Provider Active Start: February 08, 2025 End: February 08, 2025 Dr. Michael Pantoja MD Attending Provider Active Start: February 08, 2025 End: February 08, 2025 Team Status: Inactive Member Role/Relationship Status Dates Ryan [place] PA, PA Primary Care Provider Active Start: February 13, 2025 End: February 13, 2025 Dr. Tamiko Mccarthy MD Attending Provider Active Start: February 13, 2025 End: February 13, 2025 Dr. Tamiko Mccarthy MD Referring Provider Active Start: February 13, 2025 End: February 13, 2025 Team Status: Active Member Role/Relationship Status Dates Ryanchristopher Cochran PA, PA Primary Care Provider Active Start: February 13, 2025 Dr. Tamiko Mccarthy MD Attending Provider Active Start: February 13, 2025 Dr. Tamiko Mccarthy MD Referring Provider Active Start: February 13, 2025 Dr. Tamiko Mccarthy MD Other Provider Active S tart: February 13, 2025 Team Status: Inactive Member Role/Relationship Status Dates Ryan Dimas PA, PA Primary Care Provider Active Start: February 14, 2025 End: February 14, 2025 Sheila Raimundo [employer] POWER PLANT OPERATOR, [employer] CAPTURE POWER PLANT OPERATOR-C Attending Provider Active Start: February 14, 2025 End: February 14, 2025 Sheila Raimundo [employer] POWER PLANT OPERATOR, [employer] CAPTURE POWER PLANT OPERATOR-C Referring Provider Active Start: February 14, 2025 End: February 14, 2025 Team Status: Inactive Member Role/Relationship Status Dates Ryan [place] PA, PA Primary Care Provider Active Start: February 21, 2025 End: February 21, 2025 Sheila Raimundo [employer]URE POWER PLANT OPERATOR, [employer]URE POWER PLANT OPERATOR-C Attending Provider Active Start: February 21, 2025 End: February 21, 2025 Sheila Raimundo [employer]URE POWER PLANT OPERATOR, [employer] CAPTURE POWER PLANT OPERATOR-C Referring Provider Active Start: February 21, 2025 End: February 21, 2025 Team Status: Inactive Member Role/Relationship Status Dates Ryan Dimas PA, PA Primary Care Provider Active Start: February 28, 2025 End: February 28, 2025 Ryan Dimas PA, PA Referring Provider Active Start: February 28, 2025 End: February 28, 2025 Dr. Tamiko Mccarthy MD Attending Provider Active Start: February 28, 2025 End: February 28, 2025 Team Status: Inactive Member Role/Relationship Status Dates Ryan [place] PA, PA Primary Care Provider Active Start: February 28, 2025 End: February 28, 2025 Ryan [place] PA, PA Referring Provider Active Start: February 28, 2025 End: February 28, 2025 Sheila Raimundo [employer] POWER PLANT OPERATOR, [employer] POWER PLANT OPERATOR-C Attending Provider Active Start: February 28, 2025 End: February 28, 2025 Team Status: Active Member Role/Relationship Status Dates Ryanchristopher HinesEast Orange PA, PA Primary Care Provider Active Start: March 20, 2025 Dr. Ara [place] MD Attending Provider Active Start: March 20, 2025 Dr. Ara [place] MD Referring Provider Active Start: March 20, 2025 Team Status: Inactive Member Role/Relationship Status Dates Ryanchristopher HinesDimas PA, PA Primary Care Provider Active Start: March 20, 2025 End: March 20, 2025 Ryanchristopher Cochran PA, PA Referring Provider Active Start: March 20, 2025 End: March 20, 2025 Dr. Ara [place] MD Attending Provider Active Start: March 20, 2025 End: March 20, 2025 Team Status: Inactive Member Role/Relationship Status Dates Ryan [place] PA, PA Primary Care Provider Active Start: March 20, 2025 End: March 20, 2025 Ryan Dimas PA, PA Referring Provider Active Start: March 20, 2025 End: March 20, 2025 Dr. Ara [place] MD Attending Provider Active Start: March 20, 2025 End: March 20, 2025 Team Status: Active Member Role/Relationship Status Dates Ryan Dimas PA, PA Primary Care Provider Active Start: March 29, 2025 Dr. Ara Franklin MD Attending Provider Active Start: March 29, 2025 Dr. Ara Franklin MD Referring Provider Active Start: March 29, 2025 Team Status: Inactive Member Role/Relationship Status Dates Ryan [place] PA, PA Primary Care Provider Active Start: March 29, 2025 End: March 29, 2025 Ryan Dimas PA, PA Referring Provider Active Start: March 29, 2025 End: March 29, 2025 Dr. Ara Franklin MD Attending Provider Active Start: March 29, 2025 End: March 29, 2025 Team Status: Inactive Member Role/Relationship Status Dates Ryan [place] PA, PA Primary Care Provider Active Start: March 29, 2025 End: March 29, 2025 Ryan Dimas PA, PA Referring Provider Active Start: March 29, 2025 End: March 29, 2025 Dr. Ara Franklin MD Attending Provider Active Start: March 29, 2025 End: March 29, 2025 Team Status: Inactive Member Role/Relationship Status Dates Ryan [place] PA, PA Primary Care Provider Active Start: April 18, 2025 End: April 18, 2025 Ryan [place] PA, PA Referring Provider Active Start: April 18, 2025 End: April 18, 2025 Dr. Ara Franklin MD Attending Provider Active Start: April 18, 2025 End: April 18, 2025 Team Status: Active Member Role/Relationship Status Dates Ryanchristopher Hilliardall PA, PA Primary Care Provider Active Start: April 18, 2025 Dr. Ara Franklin MD Attending Provider Active Start: April 18, 2025 Dr. Ara Franklin MD Referring Provider Active Start: April 18, 2025 Team Status: Active Member Role/Relationship Status Dates Ryanchristopher Hilliardall PA, PA Primary care physician Active Team Status: Inactive Member Role/Relationship Status Dates Ryan Dimas PA, PA Primary care physician Active Start: January 23, 2025 End: January 23, 2025 Ryanchristopher Hilliardall PA, PA Referring Provider Active Start: January 23, 2025 End: January 23, 2025 Dr. Tamiko Mccarthy MD Attending physician Active Start: January 23, 2025 End: January 23, 2025 Team Status: Inactive Member Role/Relationship Status Dates Ryanchristopher Hilliardall PA, PA Primary care physician Active Start: January 25, 2025 End: January 25, 2025 Dr. Tamiko Mccarthy MD Attending physician Active Start: January 25, 2025 End: January 25, 2025 Dr. Tamiko Mccarthy MD Referring Provider Active Start: January 25, 2025 End: January 25, 2025 Team Status: Inactive Member Role/Relationship Status Dates Ryanchristopher Cochran PA, PA Primary care physician Active Start: January 29, 2025 End: January 29, 2025 Dr. Ara Franklin MD Attending physician Active Start: January 29, 2025 End: January 29, 2025 Dr. Tamiko Mccarthy MD Referring Provider Active Start: January 29, 2025 End: January 29, 2025 Team Status: Inactive Member Role/Relationship Status Dates Ryanchristopher Hilliardall PA, PA Primary care physician Active Start: January 31, 2025 End: January 31, 2025 Dr. Tamiko Mccarthy MD Attending physician Active Start: January 31, 2025 End: January 31, 2025 Dr. Tamiko Mccarthy MD Referring Provider Active Start: January 31, 2025 End: January 31, 2025 Team Status: Inactive Member Role/Relationship Status Dates Ryanchristopher Hilliardall PA, PA Primary care physician Active Start: February 08, 2025 End: February 08, 2025 Dr. Ara Franklin MD Attending physician Active Start: February 08, 2025 End: February 08, 2025 Dr. Ara Franklin MD Referring Provider Active Start: February 08, 2025 End: February 08, 2025 Team Status: Active Member Role/Relationship Status Dates Ryanchristopher Hilliardall PA, PA Primary care physician Active Start: February 08, 2025 Dr. Jayjay Mccabe MD Attending physician Active Start: February 08, 2025 Team Status: Inactive Member Role/Relationship Status Dates Ryanchristopher Cochran PA, PA Primary care physician Active Start: February 08, 2025 End: February 08, 2025 Ryanchristopher Cochran PA, PA Referring Provider Active Start: February 08, 2025 End: February 08, 2025 Dr. Michael Pantoja MD Attending physician Active Start: February 08, 2025 End: February 08, 2025 Team Status: Inactive Member Role/Relationship Status Dates Ryanchristopher Cochran PA, PA Primary care physician Active Start: February 13, 2025 End: February 13, 2025 Dr. Tamiko Mccarthy MD Attending physician Active Start: February 13, 2025 End: February 13, 2025 Dr. Tamiko Mccarthy MD Referring Provider Active Start: February 13, 2025 End: February 13, 2025 Team Status: Active Member Role/Relationship Status Dates Ryan Cochran PA, PA Primary care physician Active Start: February 13, 2025 Dr. Tamiko Mccarthy MD Attending physician Active Start: February 13, 2025 Dr. Tamiko Mccarthy MD Referring Provider Active Start: February 13, 2025 Dr. Tamiko Mccarthy MD Nurse Practitioner Active Start: February 13, 2025 Team Status: Inactive Member Role/Relationship Status Dates Ryan Cochran PA, PA Primary care physician Active Start: February 14, 2025 End: February 14, 2025 Sheila Raimundo [employer] CAPTURE POWER PLANT OPERATOR, [employer] CAPTURE POWER PLANT OPERATOR-C Attending physician Active Start: February 14, 2025 End: February 14, 2025 Sheila Raimundo [employer] CAPTURE POWER PLANT OPERATOR, [employer] CAPTURE POWER PLANT OPERATOR-C Referring Provider Active Start: February 14, 2025 End: February 14, 2025 Team Status: Inactive Member Role/Relationship Status Dates Ryan Cochran PA, PA Primary care physician Active Start: February 21, 2025 End: February 21, 2025 Sheila Raimundo [employer] CAPTURE POWER PLANT OPERATOR, [employer] CAP[employer]URE POWER PLANT OPERATOR-C Attending physician Active Start: February 21, 2025 End: February 21, 2025 Sheila Raimundo [employer] CAPTURE POWER PLANT OPERATOR, [employer] CAPTURE POWER PLANT OPERATOR-C Referring Provider Active Start: February 21, 2025 End: February 21, 2025 Team Status: Inactive Member Role/Relationship Status Dates Ryan Cochran PA, PA Primary care physician Active Start: February 28, 2025 End: February 28, 2025 Ryan Dimas PA, PA Referring Provider Active Start: February 28, 2025 End: February 28, 2025 Dr. Tamiko Mccarthy MD Attending physician Active Start: February 28, 2025 End: February 28, 2025 Team Status: Inactive Member Role/Relationship Status Dates Ryan Dimas PA, PA Primary care physician Active Start: February 28, 2025 End: February 28, 2025 Ryan [place] PA, PA Referring Provider Active Start: February 28, 2025 End: February 28, 2025 Sheila Eubanks [employer] POWER PLANT OPERATOR, [employer]URE POWER PLANT OPERATOR-C Attending physician Active Start: February 28, 2025 End: February 28, 2025 Team Status: Inactive Member Role/Relationship Status Dates Ryan [place] PA, PA Primary care physician Active Start: March 20, 2025 End: March 20, 2025 Ryan Dimas PA, PA Referring Provider Active Start: March 20, 2025 End: March 20, 2025 Dr. Ara Franklin MD Attending physician Active Start: March 20, 2025 End: March 20, 2025 Team Status: Inactive Member Role/Relationship Status Dates Ryan Dimas PA, PA Primary care physician Active Start: March 29, 2025 End: March 29, 2025 Ryan [place] PA, PA Referring Provider Active Start: March 29, 2025 End: March 29, 2025 Dr. Ara Franklin MD Attending physician Active Start: March 29, 2025 End: March 29, 2025 Team Status: Inactive Member Role/Relationship Status Dates Ryan Dimas PA, PA Primary care physician Active Start: April 18, 2025 End: April 18, 2025 Ryan [place] PA, PA Referring Provider Active Start: April 18, 2025 End: April 18, 2025 Dr. Aar Franklin MD Attending physician Active Start: April 18, 2025 End: April 18, 2025 Team Status: Active Member Role/Relationship Status Dates Ryan [place] PA, PA Primary care physician Active Start: May 09, 2025 Dr. Ara Franklin MD Attending physician Active Start: May 09, 2025 Dr. Ara Franklin MD Referring Provider Active Start: May 09, 2025 Team Status: Inactive Member Role/Relationship Status Dates Ryan Dimas PA, PA Primary care physician Active Start: May 09, 2025 End: May 09, 2025 Ryan [place] PA, PA Referring Provider Active Start: May 09, 2025 End: May 09, 2025 Sheila Eubanks [employer] POWER PLANT OPERATOR, [employer]URE POWER PLANT OPERATOR-C Attending physician Active Start: May 09, 2025 End: May 09, 2025 Team Status: Inactive Member Role/Relationship Status Dates Ryan Dimas PA, PA Primary care physician Active Start: February 21, 2025 End: February 21, 2025 Sheila Eubanks [employer] POWER PLANT OPERATOR, [employer]URE POWER PLANT OPERATOR-C Attending physician Active Start: February 21, 2025 End: February 21, 2025 Sheilalora SanabriaRaimundo [employer]OWER PLANT OPERATOR, [employer] POWER PLANT OPERATOR-C Referring Provider Active Start: February 21, 2025 End: February 21, 2025 Team Status: Inactive Member Role/Relationship Status Dates Ryan Dimas PA, PA Primary care physician Active Start: February 28, 2025 End: February 28, 2025 Ryan Dimas PA, PA Referring Provider Active Start: February 28, 2025 End: February 28, 2025 Dr. Tamiko Mccarthy MD Attending physician Active Start: February 28, 2025 End: February 28, 2025 Team Status: Inactive Member Role/Relationship Status Dates Ryan Dimas PA, PA Primary care physician Active Start: February 28, 2025 End: February 28, 2025 Ryan Dimas PA, PA Referring Provider Active Start: February 28, 2025 End: February 28, 2025 Sheila Eubanks [employer] POWER PLANT OPERATOR, [employer]URE POWER PLANT OPERATOR-C Attending physician Active Start: February 28, 2025 End: February 28, 2025 Team Status: Inactive Member Role/Relationship Status Dates Ryan [place] PA, PA Primary care physician Active Start: March 20, 2025 End: March 20, 2025 Ryan Dimas PA, PA Referring Provider Active Start: March 20, 2025 End: March 20, 2025 Dr. Ara Franklin MD Attending physician Active Start: March 20, 2025 End: March 20, 2025 Team Status: Inactive Member Role/Relationship Status Dates Ryan Dimas PA, PA Primary care physician Active Start: March 29, 2025 End: March 29, 2025 Ryan [place] PA, PA Referring Provider Active Start: March 29, 2025 End: March 29, 2025 Dr. Ara Franklin MD Attending physician Active Start: March 29, 2025 End: March 29, 2025 Team Status: Inactive Member Role/Relationship Status Dates Ryan Dimas PA, PA Primary care physician Active Start: April 18, 2025 End: April 18, 2025 Ryan Dimas PA, PA Referring Provider Active Start: April 18, 2025 End: April 18, 2025 Dr. Ara Franklin MD Attending physician Active Start: April 18, 2025 End: April 18, 2025 Team Status: Inactive Member Role/Relationship Status Dates Ryan Dimas PA, PA Primary care physician Active Start: May 09, 2025 End: May 09, 2025 Ryan Dimas PA, PA Referring Provider Active Start: May 09, 2025 End: May 09, 2025 Sheila Raimundo [employer] CAPTURE POWER PLANT OPERATOR, [employer]URE POWER PLANT OPERATOR-C Attending physician Active Start: May 09, 2025 End: May 09, 2025 Team Status: Inactive Member Role/Relationship Status Dates Ryan Dimas PA, PA Primary care physician Active Start: May 30, 2025 End: May 30, 2025 Ryan [place] PA, PA Referring Provider Active Start: May 30, 2025 End: May 30, 2025 Dr. Ara Franklin MD Attending physician Active Start: May 30, 2025 End: May 30, 2025 Team Status: Inactive Member Role/Relationship Status Dates Ryan [place] PA, PA Primary care physician Active Start: May 31, 2025 End: May 31, 2025 Sheila Raimundo [employer] CAPTURE POWER PLANT OPERATOR, [employer] CAPTURE POWER PLANT OPERATOR-C Attending physician Active Start: May 31, 2025 End: May 31, 2025 Sheila Raimundo [employer] CAPTURE POWER PLANT OPERATOR, [employer] CAPTURE POWER PLANT OPERATOR-C Referring Provider Active Start: May 31, 2025 End: May 31, 2025 Team Status: Active Member Role/Relationship Status Dates Ryan Dimas PA, PA Primary care physician Active Start: May 31, 2025 Dr. Jayjay Mccabe MD Attending physician Active Start: May 31, 2025 Team Status: Active Member Role/Relationship Status Dates Ryanchristopher HinesDimas PA, PA Primary care physician Active Start: June 07, 2025 Dr. Ara Franklin MD Attending physician Active Start: June 07, 2025 Dr. Ara Franklin MD Referring Provider Active Start: June 07, 2025 Team Status: Inactive Member Role/Relationship Status Dates YENNI Nunez Primary care physician Active Start: June 07, 2025 End: June 07, 2025 YENNI Nunez Referring Provider Active Start: June 07, 2025 End: June 07, 2025 Sheila Eubanks NP, [employer] POWER PLANT OPERATOR-C Attending physician Active Start: June 07, 2025 End: June 07, 2025 Team Status: Inactive Member Role/Relationship Status Dates YENNI Nunez Primary care physician Active Start: June 08, 2025 End: June 08, 2025 YENNI Nunez Referring Provider Active Start: June 08, 2025 End: June 08, 2025 Dr. Tamiko Mccarthy MD Attending physician Active Start: June 08, 2025 End: June 08, 2025 Team Status: Inactive Member Role/Relationship Status Dates YENNI Nunez Primary care physician Active Start: June 15, 2025 End: June 15, 2025 YENNI Nunez Referring Provider Active Start: June 15, 2025 End: June 15, 2025 Dr. Michael Pantoja MD Attending physician Active Start: June 15, 2025 End: June 15, 2025 Clinic Licensed Practical Nurse Relationship Specialty Start Date End Date Ryan Cochran PA-C [address] [place] [address] PCP - General Internal Medicine 01/04/25 Goals [...] BE BASED ON THE PRIMARY CLINICAL RECORDS. [facility] [employer] [facility]. provides no warranty or guarantee of the accuracy or completeness of information in this document.
[2025-07-25 06:17] LABS: Internal QC Validated? YES +Cl - CLEAR BKGD; Pregnancy, Urine Negative Negative
[2025-07-25] MEDS: Lactated Ringers 1,000 ML 15 ML IV (06:40)
--- NOTE | 2025-07-25 07:11 | PCM.PRE.AN2 ---
ASA Classification* ASA Classification ASA Classification: 2 Assessment & Plan Anesthesia* Anesthesia Assessment Anesthesia Assessment: Discussed sedation and/or anesthesia options, risks, benefits, and alternatives with patient/parents/legal guardian/POA. Questions invited. The patient/parents/legal guardian/POA seems to understand and agrees to proceed with anesthesia plan. Reviewed the physical assessment, medical history, allergy history and patient home medications list prior to surgery/procedure/anesthetic and documented any changes. Performed airway and anesthesia risk assessments. Anesthesia Type Anesthesia Type: General History Source History Obtained from:: Patient and Chart Anesthesia Focused Assessment* Temperature: 98.3 F Pulse Rate: 96 Blood Pressure: 102/61 Respiratory Rate: 18 Pulse Ox: 97 Oxygen Delivery Method: Room Air Airway Assessment Mouth opens: >3 cm Mallampati Score: II Teeth Condition: Intact Neck Range of motion (ROM): Limited ROM Labs Anesthesia Preop lab: CBC WBC, (4.4-11.0) 5.0 K/mm3 07/04/25, 09:02 RBC, (4.2-5.4) 3.34 M/mm3 L 07/04/25, 09:02 Hgb, (12.0-15.0) 10.9 g/dL L 07/04/25, 09:02 Hct, (37-47) 34.1 % L 07/04/25, 09:02 Plt Count, (150-450) 91 K/mm3 L 07/04/25, 09:02 CHEMISTRY Potassium, (3.3-5.1) 3.5 mmol/L 07/04/25, 09:02 Sodium, (133-145) 143 mmol/L 07/04/25, 09:02 Magnesium, (1.5-2.2) 1.6 mg/dL 07/04/25, 09:02 Phosphorus, (2.7-4.5) 3.7 mg/dL 06/20/25, 08:07 BUN, (4-19) 7 mg/dL 07/04/25, 09:02 Creatinine, (0.70-1.20) 0.56 mg/dL L 07/04/25, 09:02 Glucose, (70-99) 109 mg/dL H 07/04/25, 09:02 TSH, (0.358-3.74) 0.85 uIU/mL 03/18/21, 12:45 COAG Urine Test Negative Negative Today, 06:05 Pre-Assessment Diagnosis/Proposed Procedure Planned Operative Procedure(s): (B) Left Mastectomy w/SLN bx, blue dye & radiotracer, poss ax dissection & Right prophylactic mastectomy. 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 When Was Last Pacemaker Check QUESTION #4 FULL TEXT: You/Your Family Experience fever (hyperthermia) with Anesthesia Last Oral Intake Last Oral intake: Last Oral Intake NPO since 23:45 07/25/25 06:26 Meds taken in AM with sips of No 07/25/25 06:26 water? Meds patient instructed to take am of surgery PONV PONV - design engineer: PONV - design engineer Female Yes 07/11/25 10:18 HX of Motion Sickness No 07/11/25 10:18 HX of N/V After Surgery No 07/11/25 10:18 Non-Smoker Yes 07/11/25 10:18 Duration of Surgery greater Yes 07/11/25 10:18 than 60 minutes Number of Risk Factors 3 07/11/25 10:18 PONV Score Moderate Risk 07/11/25 10:18 Height & Weight Height & Weight: Anesthesia: Height & Weight Height 5 ft 07/25/25 06:26 Weight: 76 kg 07/25/25 06:26 Body Mass Index (BMI) 32.7 07/25/25 06:26 Respiratory Assessment Respiratory Assessment - design engineer: Respiratory Tract Infection Hx - design engineer Hx Respiratory Tract Infection No 07/11/25 10:18 STOP Sleep Apnea STOP Sleep Apnea - design engineer: STOP Sleep Apnea - design engineer Hx Hypertension No 07/11/25 10:18 Hx Sleep Apnea No 07/11/25 10:18 CPAP BIPAP Do you snore loudly (louder No 07/11/25 10:18 than talking or can be heard Do you often feel tired/ No 07/11/25 10:18 fatigued/ sleepy during daytime? Has anyone observed you stop No 07/11/25 10:18 breathing during sleep? STOP Results Negative 07/11/25 10:18 QUESTION #5 FULL TEXT : Do you snore loudly (louder than talking or can be heard through closed doors)? Tobacco Use History Tobacco Use History - design engineer: Tobacco Use History - design engineer Tobacco Use Smoking Status Never smoker 07/11/25 10:18 Hx Tobacco Use No 07/11/25 10:18 Years Smoking Packs Smoked per Day Smoking Cessation Date was within the last 15 years Hx Smoking Cessation Date Hx Smoking Cessation Counseling Hematologic Medial History Hematologic Hx - design engineer: Hematologic Medical Hx - electrical designer Hx of Blood Transfusion No 07/11/25 10:18 Hx of Transfusion in last 3 No 07/11/25 10:18 Months Date of Last Transfusion (if within last 3 months) Ever experience any problems No 07/11/25 10:18 with transfusion(s)? Specify any problems Hx of Preganancy in last 3 N/A 07/11/25 10:18 Months Nurse Filling Out Transfusion NBUCHER 07/11/25 10:18 & Questions: Date: 07/11/25 07/11/25 10:18 Time: 10:19 07/11/25 10:18 Patient unable to answer at this time (ie. confused, unrespo /Reproduction History /Reproductive History - design engineer: /Reproductive Hx- design engineer Hx Now Gestational Age (in weeks): EDC: Hx Hx Para Hx Section SAB No 07/11/25 10:18 Does the father of the baby or his family experience fever w Father of the baby Malignant Hypertension history comment Active Medications Active Medications: Current Medications Generic Name Dose Route Start Last Admin Trade Name Freq PRN Reason Stop Dose Admin Cefazolin Sodium 2 gm/ Sodium 110 mls @ 200 mls/hr 07/25/25 07:00 Chloride IV 07/25/25 07:32 INTRAOP ONE Lactated Ringer's 1,000 mls @ 15 mls/hr 07/25/25 06:15 07/25/25 06:40 IV 15 mls/hr .Q48H ENRIQUE Administration PFSH Medical History Cancer Breast cancer History of chemotherapy Port-A-Cath in place Diarrhea due to drug GERD (gastroesophageal reflux disease) Mucositis Sore throat Cough Encounter for antineoplastic chemotherapy and immunotherapy Encounter for education Wears glasses Non-smoker Shortness of breath on exertion History of echocardiogram Anemia Axillary lymphadenopathy Home Medications ?Medication ?Instructions ?Recorded ?Last Taken ?Type NK 07/11/25 Unknown History Allergy/AdvReac Type Severity Reaction Status Date / Time No Known Allergies Allergy Verified 07/25/25 06:25 Family History Other No pertinent family history Surgical History History of wisdom tooth extraction delivery delivered Social History Smoking Status: Never smoker alcohol intake: never Review of Systems (Anesthesia) ROS Narrative System reviewed and no additional complaints, except as documented.
--- NOTE | 2025-07-25 07:22 | HP.PCM_ITS ---
HPI - General HPI Narrative SHAUNA RAINEY, is a 29 F who presents FOR BILATERAL skin-sparing mastectomy and possible ALND, as well as possible tissue brush cutter placement and possible lymphovenous bypass. Current Encounter (DATE OF SURGERY H&P UPDATE): I saw and examined the patient this morning in pre-operative holding. We discussed risks and benefits of today's surgery and they would like to proceed. NO CHANGE in health history since last seen and evaluated. Ready to proceed with surgery. [facility] Medical History Cancer Breast cancer History of chemotherapy Port-A-Cath in place Diarrhea due to drug GERD (gastroesophageal reflux disease) Mucositis Sore throat Cough Encounter for antineoplastic chemotherapy and immunotherapy Encounter for education Wears glasses Non-smoker Shortness of breath on exertion History of echocardiogram Anemia Axillary lymphadenopathy Home Medications ?Medication ?Instructions ?Recorded ?Last Taken ?Type NK 07/11/25 Unknown History Allergy/AdvReac Type Severity Reaction Status Date / Time No Known Allergies Allergy Verified 07/25/25 06:25 Family History Other No pertinent family history Surgical History History of wisdom tooth extraction delivery delivered Social History Smoking Status: Never smoker alcohol intake: never Vital Signs Vital Signs Vital Signs: 07/25/25 06:26 07/25/25 06:26 07/25/25 06:26 Temperature 98.3 F Temperature Source Temporal Pulse Rate 96 Respiratory Rate 18 Respiratory Pattern Normal Blood Pressure 102/61 Blood Pressure Mean 74 Blood Pressure Source Monitor Blood Pressure Position Semi-Fowlers Blood Pressure Location Left Arm Baseline BP 102/61 Pulse Ox 97 Oxygen Delivery Method Room Air 07/25/25 07:14 Temperature 98.3 F Temperature Source Pulse Rate 96 Respiratory Rate 18 Respiratory Pattern Blood Pressure 102/61 Blood Pressure Mean Blood Pressure Source Blood Pressure Position Blood Pressure Location Baseline BP Pulse Ox 97 Oxygen Delivery Method Room Air Weight Weight: 167 lb 8.821 oz Body Mass Index (BMI) 32.7 Physical Exam Narrative Breast Exam: Female melangeur operator present during my exam Extremity Lymphedema: No Asymmetry: Significant Masses: Firm masses behind the left nipple areolar complex. No masses felt on the right. Left nipple areolar complex is indented and retracted, in the lower pole the breast is also slightly retracted, as is the lateral portion of the breast. Axillary Lymphadenopathy: I did not feel any lymphadenopathy today Scars: Breast scars only from biopsies No scars on the back and only scar on the abdomen is section. Intact bilateral latissimus muscles Note: measurements are in centimeters SN to NIPPLE:? R: 23 ? ? L: 20 WIDTH: ? R: 11 ? L: 11 IMF to NIPPLE: ? R: 5 ? ? L: 4 PTOSIS: ? R: Grade 2 ? ? L: Grade 2 MEDIALLY DISPLACED NIPPLE: Yes especially in the left Abdomen: section scar, well-healed no hypertrophy. No palpable hernias. Minimal diastases (3 to 4 cm). She has adequate abdominal donor site for autologous breast reconstruction from the abdomen (good BRUNILDA flap candidate for the desired breast size). I marked her with a female melangeur operator present today Results Lab / Micro Data Labs: Laboratory Results - last 24 hr 07/25/25 06:05: Urine Test Negative Assessment & Plan Assessment/Plan (1) Encounter for breast reconstruction following mastectomy: (2) Invasive ductal carcinoma of left breast: (3) HER2-positive carcinoma of left breast: PLAN: Plan I talked to the patient extensively about the risks of surgery, including bleeding, infection, damage to surrounding structures, poor scaring, surgical site dehiscence and wound formation, need for wound care, need for repeat operations, failure to obtain the desired result, DVT/PE, and the risks of anesthesia including , including stroke (from low blood pressure/ischemia or clot). The benefits and alternatives of this surgery were also discussed. All of their questions were answered, and they agreed to proceed with surgery. I also spoke with her about the possibility of not placing expanders (if the flaps appear ischemic with SPY after mastectomy). Patient was in agreement. INTERVAL H&P PLAN, DATE OF SURGERY: We will proceed with surgery today.
--- NOTE | 2025-07-25 07:30 | BREAST_PTH ---
PATIENT: SHAUNA RAINEY LOC: MS3 U#:[id number] AGE/SX: 29/F ROOM: [facility] [place] RE07/25/[address]: Dr. Tamiko Figueroa MD : 1995 BED: 1 DIS: 07/26/2025 SPEC #: [id number] RECD: 07/25/25 09:13 STATUS: NITISH REQ #: [id number] TANK: 07/25/25 07:[address]: Tamiko Figueroa DEPT: SURGICAL PATHOLOGY RECD BY: Branden Ruano ENTERED: 07/25/25 09:53 SP TYPE: BREAST OTHR DR: MD Elly Chinchilla PA Tissues: A - Axillary lymph node, NOS B - Left breast, NOS Procedures: Frozen Section (charge) Immunohistochemical Stains Surgery Specimen Level IV Surgery Specimen Level V IHC Stain ADDITIONAL HEADER OPERATION: Left mastectomy with sentinel lymph node biopsy PRE-OP DIAGNOSIS: Invasive ductal carcinoma of left breast, HER2- positive carcinoma of left breast TISSUE SUBMITTED: A- Left axillary sentinel node, B- Left mastectomy, C- Right mastectomy *long stitch - lateral, short stitch - superior*, D- Right mastectomy *short stitch - new inferior margin, long stitch - lateral* FROZEN SECTION DIAGNOSIS A. [place] lymph node, left, axillary, excision: Negative for macrometastsis. TD/mr 07/25/2025 MICROSCOPIC DIAGNOSIS A. [place] lymph node, left axilla, excision: One lymph node, negative for metastasis (0/1). IHC for pankeratin supports the diagnosis. B. Left breast, mastectomy: No residual tumor (complete pathologic response). IHC for CK5/6 and E-cadherin support the histologic impression. Benign breast tissue with focal biopsy site change, focal foreign body granulomas, focal calcification, and patchy fat necrosis - see note. Note: Scant skeletal muscle is focally observed. C. Right breast, mastectomy: Benign breast tissue. IHC for CK5/6 supports the histologic impression. Note: Rare microcalcifications are noted. D. Right breast, new inferior margin, re-excision: Benign breast tissue. COMMENT A preliminary diagnosis was reported to Dr Haresh Figueroa (email) 08/10/2025. MICROSCOPIC DESCRIPTION Slides are reviewed. All matched controls reacted appropriately. These tests were developed and their performance characteristics determined by [facility]. They may not have been cleared or approved by the U.S. Food and Drug Administration. The FDA has determined that such clearance or approval is not necessary. The above immunohistochemical markers and/or special?stains have been reviewed by the Pathologist. GROSS DESCRIPTION Received fresh and subsequently placed in formalin, labeled with the patient's name and date of . Designated as: A. Left axillary sentinel node is a 2.5 x 1.7 x 0.7 cm fatty lymph node with blue dye. The fat is removed and the lymph node is serially sectioned; the lymph node is entirely submitted for frozen section diagnosis and subsequently placed in cassettes A1-A2 for permanent sections. The remainder of the fat is submitted in cassette A3. B. Left mastectomy, long stitch lateral, short stitch superior is a 242 g mastectomy measuring 13.2 x 11.4 x 4.2 cm. The specimen is surfaced by a 9.2 x 4.0 cm ram skin ellipse. The skin has patchy blue dye discoloration spanning to the surrounding soft tissue. There is a central nipple and areola, 1.2 cm and 4.0 cm, respectively. The nipple is not inverted. An axillary tail is not present. Muscle is not present on the posterior aspect.There is a short suture designated as superior and a long suture designated as lateral. The specimen is inked as follows: Superior: OrangeInferior: Green Posterior: Black The specimen is serially sectioned into 14 levels revealing fibrofatty cut surfaces with patchy blue dye discoloration along the inferior aspect and multiple areas of interest as follows: 9:00, levels #3-#4: 1.0 x 0.8 x 0.6 cm ram-white, somewhat nodular and slightly ill-defined area of fibrosis located 0.5 cm from superior, 1.6 cm from posterior and 4.1 cm from inferior. 11:00-12:00, levels #8-#9: 0.7 x 0.6 x 0.5 cm biopsy cavity containing a spiral clip with surrounding fibrosis with blue dye discoloration and area collectively measuring 2.9 x 2.2 x 0.9 cm. The biopsy cavity is located 2.7 cm lateral to the 9:00 nodular fibrosis, 2.3 cm from superior, 1.1 cm from posterior and 7.4 cm from inferior. While the central areolar tissue is fibrotic throughout, additional, definitive tumor beds or lesions are not grossly identified. Review of postoperative imaging confirms the presence of 3 biopsy clips. Milker Machine sections of each level are submitted, sequentially from medial to lateral (with the exception of the nipple/areola) as follows: B1-B2: Level #1B3-B4: Level #2B5: Level #3, including described area of fibrosisB6: Level #3B7-B8: Level #4, including described area of fibrosisB9-B10: Level #8O76-S07: Level #2F01-C84: Level #7B15: Level #8 with biopsy cavity B16: Level #8, fibrosis adjacent to biopsy cavity B17: Level #9 with biopsy fuyvuuM80: Level #3N00-R70: Level #25L65-Q53: Level #35J38-U66: Level #53A24-R90: Level #00X74-Y73: Level #31U58-L34: Nipple and areola Cold ischemic time: 20 minutesFormalin fixation time: 33 hours, 10 minutes C. Right mastectomy long stitch lateral, short stitch superior is a 149 g mastectomy measuring 10.0 x 9.5 x 3.4 cm. The specimen is surfaced by an 8.0 x 3.5 cm ram skin ellipse. There is a central nipple and areola, 1.0 cm and 3.4 cm, respectively. The nipple is not inverted. An axillary tail is not present. Muscle is not present on the posterior aspect.There is a short suture designated as superior and a long suture designated as lateral. The specimen is inked as follows: Superior: BlueInferior: Green The specimen is serially sectioned into 13 levels revealing fibrofatty cut surfaces devoid of identifiable lesions. Milker Machine sections of each quadrant are submitted, sequentially from lateral to medial, with the exception of the nipple and areola as follows: C1: Level #1C2: Level #2C3: Level #5C4: Level #7 C5: Level #9C6: Level #10C7: Level #11C8: Level #13C9: Nipple and areola Cold ischemic time: 26 minutesFormalin fixation time: 32 hours, 4 minutes D. Right mastectomy short stitch new inferior margin, long stitch lateral is a 37 g, 9.5 x 6.8 x 2.2 cm portion of ram-yellow somewhat congested and shaggy fibrofatty tissue with orientation. There is a short suture designated as new inferior margin and a long suture designated as lateral. The new inferior margin is inked blue. The specimen is serially sectioned from lateral to medial revealing ram-yellow, lobulated fibrofatty cut surfaces with focal congestion. No definitive lesions are grossly appreciated. Milker Machine sections are submitted, sequentially from lateral to medial in 5 cassettes. Cold ischemic time: 11 minutes (based on time that the specimen the OR)Formalin fixation time: 32 hours, 4 minutes LA 07/26/2025 CPT:[id number]
--- NOTE | 2025-07-25 07:58 | PCM.HP.STD ---
HPI - General General Date of Service: 07/25/25 HPI Narrative SHAUNA RAINEY, is a 29 F who presents left mastectomy with axillary lymph node dissection, prophylactic right mastectomy with bilateral reconstruction by Dr. Pantoja Last visit 06/08/2025 HPI HPI: 29-year-old female presents to discuss surgery status post neoadjuvant chemotherapy due to left breast cancer. Patient's last neoadjuvant treatment date is June 20, 2025. Patient also has an upcoming appointment with Dr. Pantoja as she plans on getting bilateral mastectomies with reconstruction. Patient is aware that Dr. Pantoja's last day here is August 08 and he will be at [facility] and she will plan to do follow-up appointments with him up at [facility]. [facility] Medical History Cancer Breast cancer History of chemotherapy Port-A-Cath in place Diarrhea due to drug GERD (gastroesophageal reflux disease) Mucositis Sore throat Cough Encounter for antineoplastic chemotherapy and immunotherapy Encounter for education Wears glasses Non-smoker Shortness of breath on exertion History of echocardiogram Anemia Axillary lymphadenopathy Home Medications ?Medication ?Instructions ?Recorded ?Last Taken ?Type NK 07/11/25 Unknown History Allergy/AdvReac Type Severity Reaction Status Date / Time No Known Allergies Allergy Verified 07/25/25 06:25 Family History Other No pertinent family history Surgical History History of wisdom tooth extraction delivery delivered Social History Smoking Status: Never smoker alcohol intake: never Vital Signs Vital Signs Vital Signs: 07/25/25 06:26 07/25/25 06:26 07/25/25 06:26 Temperature 98.3 F Temperature Source Temporal Pulse Rate 96 Respiratory Rate 18 Respiratory Pattern Normal Blood Pressure 102/61 Blood Pressure Mean 74 Blood Pressure Source Monitor Blood Pressure Position Semi-Fowlers Blood Pressure Location Left Arm Baseline BP 102/61 Pulse Ox 97 Oxygen Delivery Method Room Air 07/25/25 07:14 Temperature 98.3 F Temperature Source Pulse Rate 96 Respiratory Rate 18 Respiratory Pattern Blood Pressure 102/61 Blood Pressure Mean Blood Pressure Source Blood Pressure Position Blood Pressure Location Baseline BP Pulse Ox 97 Oxygen Delivery Method Room Air Weight Weight: 167 lb 8.821 oz Body Mass Index (BMI) 32.7 Physical Exam Const alert, oriented x3 and no apparent distress HEENT normocephalic and head/scalp atraumatic Resp normal respiratory effort Cardio regular rate GI soft to palpation and non-tender; Negative for non-distended Palpation: Negative for guarding Extremity no clubbing, cyanosis or edema Skin no rashes or lesions noted Neuro CN's II-XII intact bilaterally Psych mental status grossly normal Results Lab / Micro Data Labs: Laboratory Results - last 24 hr 07/25/25 06:05: Urine Test Negative Assessment & Plan Assessment/Plan (1) Invasive ductal carcinoma of left breast: (2) HER2-positive carcinoma of left breast: PLAN: Plan Previously discussed risk benefits for surgery and patient was still agreeable for the bilateral mastectomy with left sentinel lymph node and plans with reconstruction with Dr. Pantoja. Patient no further question this time. Tamiko Figueroa M.D. Pager: [phone] [facility] [address] [place] [address], [facility], [address] [place] [address] Office: [phone]
[2025-07-25] MEDS: Midazolam 2 MG/2 ML Syringe IV (08:08)
[2025-07-25] MEDS: Lidocaine 1% (5 ml sdv) 5 ML Vial 10 ML IV (08:10)
[2025-07-25] MEDS: DiphenhydrAMINE 50 MG/ML Syringe 12.5 MG IV (08:15)
[2025-07-25] MEDS: 0.9% Normal Saline (Pres. free 10 ML Vial (08:31)
[2025-07-25] MEDS: fentaNYL 100 MCG/2 ML Ampul 200 MCG IV (08:54)
--- NOTE | 2025-07-25 10:05 | BI_ITS ---
EXAM: BREAST BIOPSY SPECIMEN 07/25/2025 CLINICAL HISTORY: F, Age 29 y/o, excisional biopsy. TECHNIQUE: Procedure Code: BIB Modality: MG Procedure: BREAST BIOPSY SPECIMEN COMPARISON: Prior exam(s) dated February 02, 2025.. FINDINGS: The operative specimen contains the tissue clip marker. BI/Breast Biopsy Specimen IMPRESSION: OVERALL FINAL ASSESSMENT: BIRADS 6: Known Biopsy-Proven Malignancy. RECOMMENDATION: Waiting for pathology report. Additional Recommendation none A letter with findings and recommendations will be mailed to the patient. Reading Location: [id number]
--- NOTE | 2025-07-25 10:43 | OP.PCM_ITS ---
Operative Report (Standard) Operative Information Date of Procedure: 07/25/25 Pre-Operative Diagnosis: Status post bilateral skin-sparing mastectomies for breast cancer Post-Operative Diagnosis: Same Surgery/Procedure Performed: Fluorescence angiography for examination of bilateral breast mastectomy flaps Placement of bilateral tissue expanders into the prepectoral plane of the bilateral breast evidence specialist: Yes Greens Picker: Reza Craven Tasks completed by business services assistant: Closing and Retracting Type of Anesthesia: General/Supplemental (15 cc of 0.25% Marcaine ) RN Documented Start/Stop Times: Operation Date: 07/25/25 07:30 Case Time Into Pre-Op 07/25/25 06:02 Out of Pre-Op 07/25/25 07:58 Anesthesia Start 07/25/25 08:01 Into Room 07/25/25 08:01 Procedure Start 07/25/25 08:42 Procedure Start Time: 11:35 Procedure Stop Time: 01:00 Select all DRAINS/GRAFTS/IMPLANTS that apply: Implanted device (Sledge breast tissue expanders, bilateral, both insufflated with 150 cc of air) Estimated Blood Loss: 10 cc from Specimen collected: No Description of surgery: Indications: Patient is a delightful 29-year-old female who is undergoing skin sparing mastectomies for a HER2 positive left breast cancer. Today she had a sentinel lymph node performed which was negative on frozen section (left axilla). Plastic surgery was called in the room following mastectomy for immediate prepectoral breast tissue enforcement officer placement in anticipation for eventual autologous reconstruction. Procedure details: Plastic surgery was called in the room and a timeout was performed. The patient was reprepped and draped in sterile fashion. The bilateral mastectomy pockets were irrigated with copious amounts of normal saline and Irrisept. Stasis was obtained with Bovie electrocautery. The mastectomy flaps were then visualized with the fluorescence angiography (spy) machine and were noted to be warm and viable with adequate perfusion on fluorescence. The decision was then made to perform the tissue enforcement officer placement. [] Postoperative plan: Patient will be admitted to the plastic surgery service postoperatively for an overnight stay for drain care management and evaluation. Plan for SCDs at all time and early ambulation. Anticipate discharge in the morning. Surgical Findings: [place] lymph node was negative on frozen section Mastectomy flaps were viable based on fluorescence angiography Complications Complications: No
--- NOTE | 2025-07-25 10:43 | PCM.OPRPT ---
Operative Report (Standard) Operative Information Date of Procedure: 07/25/25 Pre-Operative Diagnosis: Status post bilateral skin-sparing mastectomies for breast cancer Post-Operative Diagnosis: Same Surgery/Procedure Performed: 1) Fluorescence angiography for examination of bilateral breast mastectomy flaps 2) Placement of bilateral tissue expanders into the prepectoral plane of the bilateral breast embossograph operator: Yes Sql Server Architect: Reza Craven Tasks completed by hardware sales assistant: Closing and Retracting Type of Anesthesia: General/Supplemental (15 cc of 0.25% Marcaine ) RN Documented Start/Stop Times: Operation Date: 07/25/25 07:30 Case Time Into Pre-Op 07/25/25 06:02 Out of Pre-Op 07/25/25 07:58 Anesthesia Start 07/25/25 08:01 Into Room 07/25/25 08:01 Procedure Start 07/25/25 08:42 Procedure Start Time: 11:35 Procedure Stop Time: 01:00 Select all DRAINS/GRAFTS/IMPLANTS that apply: Implanted device (300 cc [place] tissue expanders bilaterally) Implanted device details: Left side [place] 300 cc Artoura plus smooth breast tissue quality rn reference number SDC?110H serial #[id number], lot #[id number] Inflated to 100 cc with air Right side [place] 300 cc Artoura plus smooth tissue quality rn reference number SDC?110H serial number [id number], lot #[id number] Inflated to 100 cc with air Estimated Blood Loss: 10 cc from Specimen collected: No Description of surgery: Indications: Patient is a delightful 29-year-old female who is undergoing skin sparing mastectomies for a HER2 positive left breast cancer. Today she had a sentinel lymph node performed which was negative on frozen section (left axilla). Plastic surgery was called in the room following mastectomy for immediate prepectoral breast tissue quality rn placement in anticipation for eventual autologous reconstruction. Procedure details: Plastic surgery was called in the room and a timeout was performed. The patient was reprepped and draped in sterile fashion. The bilateral mastectomy pockets were irrigated with copious amounts of normal saline and Irrisept. Hemostasis was obtained with Bovie electrocautery. The mastectomy flaps were then visualized with the fluorescence angiography (spy) machine and were noted to be warm and viable with adequate perfusion on fluorescence. The decision was then made to perform the tissue quality rn placement. The base width was measured at 11 cm and a 300 cc tissue quality rn was placed on both sides with the medial and inferior tab sutured and position on the chest wall with a 2-0 PDS. They were inflated to 100 cc of air on both sides. The wounds were again irrigated with copious amounts of Irrisept and saline. Two 15 Slov[place] Félix drains. Were placed on each side and tunneled out medially and laterally. The wound was then closed in layers with a 3-0 Vicryl deep running subcutaneous suture followed by 3-0 Monocryl deep dermal suture followed by 3-0 Monocryl running subcuticular suture and Prineo tape. The drains were holding suction at the end of the case. All counts were correct at the end of the case. Patient tolerated the procedure well. She was awakened and taken to the PACU in stable condition. Postoperative plan: Patient will be admitted to the plastic surgery service postoperatively for an overnight stay for drain care management and evaluation. Plan for SCDs at all time and early ambulation. Anticipate discharge in the morning. Surgical Findings: [place] lymph node was negative on frozen section Mastectomy flaps were viable based on fluorescence angiography Complications Complications: No
[2025-07-25] MEDS: dexMEDEtomidine 200 MCG/2 ML ML 40 MCG IV (10:53)
--- NOTE | 2025-07-25 11:21 | PCM.OPRPT ---
Oncology: Yue Requirements . Oncology surgical intervention performed: [place] Node Biopsy for Breast Cancer performed [place] Node Bx - Breast Cancer: Synoptic Portion: Element Response Options Operation performed with curative intent. Yes Tracer(s) used to identify sentinel nodes in the upfront surgery (non-neoadjuvant) setting (select all that apply). N/A. Tracer(s) used to identify sentinel nodes in the neoadjuvant setting (select all that apply).Dye; Radioactive tracer All nodes (colored or non-colored) present at the end of a dye-filled lymphatic channel were removed. Yes All significantly radioactive nodes were removed. Yes All palpably suspicious nodes were removed. N/A. Biopsy-proven positive nodes marked with clips prior to chemotherapy were identified and removed.N/A. Operative Report (Standard) Operative Information Date of Procedure: 07/25/25 Pre-Operative Diagnosis: Left breast cancer Post-Operative Diagnosis: Same Surgery/Procedure Performed: Left skin sparing mastectomy and sentinel lymph node biopsy, right prophylactic skin sparing mastectomy career based intervention coordinator: Yes Phlebotomy Specialist: Sun Pop Tasks completed by clinical physician assistant: Opening & closing Type of Anesthesia: General/Supplemental RN Documented Start/Stop Times: Operation Date: 07/25/25 07:30 Case Time Into Pre-Op 07/25/25 06:02 Out of Pre-Op 07/25/25 07:58 Anesthesia Start 07/25/25 08:01 Into Room 07/25/25 08:01 Procedure Start 07/25/25 08:42 Procedure Start Time: 08:42 Procedure Stop Time: 11:20 (Dr. Pantoja continued with his portion) Select all DRAINS/GRAFTS/IMPLANTS that apply: None Special Medications: Ancef 2 g IV x 1 Estimated Blood Loss: 20 cc Specimen collected: Yes Description of specimen(s) removed: 1. Left sentinel lymph node, #2 left mastectomy, #3 right mastectomy, #4 new inferior right mastectomy margin Description of surgery: In AC left breast was injected with Lymphoseek. >30 minutes later the patient was taken to the operating room and general anesthesia was induced. 10 cc of methylene blue dye was injected in the 4 quadrants periareolar along with 10 cc of normal saline. This was massaged gently for 5 minutes. The bilateral breasts and left axilla were prepped and draped in usual sterile fashion. A timeout was completed verifying correct patient, procedure, site, positioning, special equipment prior to beginning procedure. Handheld gamma probe was used to identify the location of the hottest spot in the axilla. Prior to the incision, the counts were 100. The incision was in the lower axilla and the hot and blue node was identified. The probe was placed in contact with the node in the 10 count was [id number]. The bed of the node measured 23 counts. No additional blue or hot or palpable nodes were detected. Left side was done first, right side was done similarly-with new instruments. Skin incision was made that encompassed the nipple areolar complex. Flaps are raised in the avascular plane between the flap and the breast tissue from the clavicle superiorly, the sternum medially, the anterior rectus sheath inferiorly, and posterolateral border of the pectoralis major muscle laterally. Hemostasis was achieved in the flaps. Next, the breast tissue and underlying pectoralis fascia were excised from the pectoralis major muscle, progressing from medial to laterally. At the lateral border of the pectoralis major muscle, the breast tissue was swung laterally and the lateral pedicle identified with the breast tissue gave way to the fat of the axilla. The lateral pedicle was incised and the specimen removed and oriented for pathology. The wound was irrigated and hemostasis was achieved. The axillary incision was closed with subdermal sutures of 2-0 Vicryl and skin was closed with running 4-0 Monocryl. Please refer to Dr. Pantoja's operative report for the rest of the case with reconstruction and closure. Surgical Findings: See operative report Complications Complications: No
[2025-07-25] MEDS: Cefazolin 1 GM/5 ML Vial 4 GM IV (12:15)
--- NOTE | 2025-07-25 13:38 | PCM.POST.ANE ---
Anesthesia: Postop Eval I Current Vital Signs Temperature: 97 F Pulse Rate: 100 Blood Pressure: 104/52 Respiratory Rate: 16 Pulse Ox: 94 Oxygen Delivery Method: Room Air Assessment Airway patent: Yes Spontaneous unlabored respirations: Yes Mental status: Awake and Calm nausea: No Vomiting: No Anesthesia Complication: No Fluid Hydration Crystalloid volume administer (ml): 1,600 Total IV fluid infused: 1,600 Progress Note Anesthesia document: Postop Eval 1 completed: Yes
[2025-07-25] MEDS: Lactated Ringers 1,000 ML 100 ML IV ×2 (16:38→23:15)
[2025-07-25] MEDS: Cefazolin 2 GM in 0.9% Normal Saline (100mL Bag) 100 ML IV (21:32)
--- NOTE | 2025-07-25 22:22 | POSTOPAN2_ITS ---
Anesthesia Postop Eval I Sum Postop Eval Completion status Anesthesia document: Postop Eval 1 completed: Yes Anesthesia Postop Eval I Summary Anesthesia Postop Eval I Summary: Anesthesia Postop Eval I: Assessment Summary Airway patent Yes 07/25/25 13:39 ANIMAL ANATOMY TEACHER.[email or web address] Spontaneous unlabored Yes 07/25/25 13:39 ANIMAL ANATOMY TEACHER.[email or web address] respirations Mental status Awake,Calm 07/25/25 13:39 ANIMAL ANATOMY TEACHER.[email or web address] nausea No 07/25/25 13:39 ANIMAL ANATOMY TEACHER.[email or web address] Vomiting No 07/25/25 13:39 ANIMAL ANATOMY TEACHER.[email or web address] Anesthesia Postop Eval I: Fluid Summary Crystalloid volume administer 1,600 07/25/25 13:39 ANIMAL ANATOMY TEACHER.SKOBY (ml) Colloids volume administered ( ml) Blood Product volume administered (ml) Total IV fluid infused 1,600 07/25/25 13:39 ANIMAL ANATOMY TEACHER.[email or web address] Anesthesia Postop Eval I: Summary Notes Anesthesia Complication No 07/25/25 13:39 ANIMAL ANATOMY TEACHER.[email or web address] Anesthesia Complication Comment: Post-operative progress note Anesthesia: Postop Eval II Evaluation Mental status: Awake and Calm Pain Level: 3 nausea: No Vomiting: No Complications Anesthesia Complication: No
--- NOTE | 2025-07-25 22:22 | PCM.POSTANE2 ---
Anesthesia Postop Eval I Sum Postop Eval Completion status Anesthesia document: Postop Eval 1 completed: Yes Anesthesia Postop Eval I Summary Anesthesia Postop Eval I Summary: Anesthesia Postop Eval I: Assessment Summary Airway patent Yes 07/25/25 13:39 SUPERVISOR [email or web address] Spontaneous unlabored Yes 07/25/25 13:39 SUPERVISOR ADVICE.[email or web address] respirations Mental status Awake,Calm 07/25/25 13:39 SUPERVISOR ADVICE.[email or web address] nausea No 07/25/25 13:39 SUPERVISOR ADVICE.[email or web address] Vomiting No 07/25/25 13:39 SUPERVISOR ADVICE.[email or web address] Anesthesia Postop Eval I: Fluid Summary Crystalloid volume administer 1,600 07/25/25 13:39 SUPERVISOR ADVICE.[email or web address] (ml) Colloids volume administered ( ml) Blood Product volume administered (ml) Total IV fluid infused 1,600 07/25/25 13:39 SUPERVISOR ADVICE.[email or web address] Anesthesia Postop Eval I: Summary Notes Anesthesia Complication No 07/25/25 13:39 SUPERVISOR ADVICE.[email or web address] Anesthesia Complication Comment: Post-operative progress note Anesthesia: Postop Eval II Evaluation Mental status: Awake and Calm Pain Level: 3 nausea: No Vomiting: No Complications Anesthesia Complication: No
[2025-07-26 00:18] VITALS: BP 111/61; PULSE 90; RESP 18; TEMP 36.8; O2SAT 94
[2025-07-26 04:04] VITALS: BP 105/60; PULSE 83; RESP 16; TEMP 36.9; O2SAT 96
[2025-07-26] MEDS: Cefazolin 2 GM in 0.9% Normal Saline (100mL Bag) 100 ML IV (05:55)
[2025-07-26 07:29] LABS: Hematocrit 30.6 % (37-47); Hemoglobin 10.1 g/dL (12.0-15.0); Immature Granulocytes Count 0.020 X10^3/uL (0.0-0.0); Mean Corp Hgb Conc 33.0 g/dL (32-36); Mean Corpuscular Volume 99.7 fL (81-99); Mean Platelet Vol. 9.2 fl (6.2-12.0); NRBC Flagged by Analyzer 0 % (0-5); Platelet Count 181 K/mm3 (150-450); RBC Distribution Width CV 14.6 % (11.6-14.6); RBC Distribution Width SD 53.8 fl (35.1-43.9); Red Blood Count 3.07 M/mm3 (4.2-5.4); White Blood Count 6.7 K/mm3 (4.4-11.0)
[2025-07-26 08:00] VITALS: BP 105/59; PULSE 79; RESP 17; TEMP 36.9; O2SAT 97
--- NOTE | 2025-07-26 08:48 | PCM.DC.SUM ---
Providers Date of Admission: 07/25/25 Date of Discharge: 07/26/25 Primary Care Physician: YENNI Hartman Attending Physician: Dr. Michael Pantoja Consultations 07/25/25 16:16 Consult: General Surgery Routine Consulting Provider: Tamiko Figueroa Reason for Consult: b/l mastectomies EMERGENT Consult: No MD Notified: Yes Date Notified: 07/25/25 Time Notified: 07:30 Method of Notification: Verbal Reason For Visit: 07/25/25 07:15 Left Mastectomy w/SLN bx, blue dye Diagnosis Discharge Diagnosis (1) Invasive ductal carcinoma of left breast: Status: Acute Code(s): C50.912 - Malignant neoplasm of unspecified site of left female breast (2) HER2-positive carcinoma of left breast: Status: Acute Code(s): C50.912 - Malignant neoplasm of unspecified site of left female breast; Z17.31 - 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 Medications at Discharge Home Medications cephalexin 500 mg capsule 500 mg PO TID 7 days #21 caps 07/26/25 oxycodone 5 mg tablet 5 mg PO Q8H PRN pain 7 days #21 tabs 07/26/25 Hospital Course Operations - (Left skin sparing mastectomy and sentinel lymph node biopsy, right prophylactic skin sparing mastectomy with Dr. Figueroa 1) Fluorescence angiography for examination of bilateral breast mastectomy flaps 2) Placement of bilateral tissue expanders into the prepectoral plane of the bilateral breast w) Summary of Care Provided Minutes Spent on Discharge: 30 Hospital Course: Ms. Chowdhury is a 29 year-old female who had 1 year hx of left nipple inversion abnormalities who was diagnosed with HER2 positive invasive ductal carcinoma of left breast. After completing neoadjuvent chemotherapy on 06/29/[address] Figueroa for left breast mastectomy with left sentinel node biopsy and prophylactic right breast mastectomy and Dr. Pantoja discussed bilateral breast tissue fast food worker placement for eventual autologous breast reconstruction. She underwent above mentioned surgeries without apparent intraoperative complications. Left axillary sentinel node biopsy was negative for frozen section. She transferred to PACU and awoke from anesthesia without issues. Overnight her pain was well controlled on oral regimen. Today is postop day 1. She had been walking in her room without issues. She tolerating oral intake, urinating, passing gas, denies nausea, vomiting, or abdominal pain. She will receive 1 dose of subcutaneous Lovenox 40mg, ambulate in the halls with nursing, and receive drain care education. She meets discharge criteria today and will discharge home with 7 day course of oral keflex. MEDICAL BILLING CLERK was reveiwed she will also received Oxycodone prescription for as needed pain. Physical Exam Narrative Afebrile/VSS. Bilateral breast incision with Prineo dressing in place. No strikethrough bleeding. Incisions are clean, dry, intact. Left axillary incision is clean, dry intact No fluid collection, no hematoma, induration, erythema or edema. Some bruising on breast flaps. Skin is pink, well perfused. No leg swelling. Weight / BMI Weight Weight: 167 lb 8.821 oz Body Mass Index (BMI) 32.8 ABG / Lab / Microbiology Data 07/26/25 07:00 Laboratory: Laboratory Results - last 24 hr 07/26/25 07:00: WBC 6.7, RBC 3.07 L, Hgb 10.1 L, Hct 30.6 L, MCV 99.7 H, MCH 32.9 H, MCHC 33.0, RDW Std Deviation 53.8 H, RDW Coeff of Rufus 14.6, Plt Count 181, MPV 9.2, Immature Gran % (Auto) 0.300, Neut % (Auto) 59.5, Lymph % (Auto) 30.8, [place] % (Auto) 8.7, Eos % (Auto) 0.3, Baso % (Auto) 0.4, Absolute Neuts (auto) 4.0, Absolute Lymphs (auto) 2.06, Nucleated RBC % 0 Radiography Diagnostic Testing: Radiology Impression Breast Biopsy 07/25/25 10:05 IMPRESSION: OVERALL FINAL ASSESSMENT: BIRADS 6: Known Biopsy-Proven Malignancy. RECOMMENDATION: Waiting for pathology report. Additional Recommendation none A letter with findings and recommendations will be mailed to the patient. Reading Location: [id number]/C Instructions DC O2, CPAP, BIPAP Needs Home O2 Discharge instructions: No Meaningful Use Info Meaningful Use Meaningful Use Diagnoses (Choose all that apply): None applicable Discharge Plan Admission Admit Date/Time: 07/25/25 11:48 Primary Reason for Your Visit: Bilateral masectomy, lymph node biopsy, tissue fast food worker placement Attending Provider: Tamiko Figueroa Primary Care Provider: Elly Salcedo Consulting Providers: Michael Pantoja; Tamiko Figueroa Instructions Additional Instructions / Restrictions: Operations Performed:Left skin sparing mastectomy and sentinel lymph node biopsy, right prophylactic skin sparing mastectomy with Dr. Figueroa 1) Fluorescence angiography for examination of bilateral breast mastectomy flaps 2) Placement of bilateral tissue expanders into the prepectoral plane of the bilateral breast with Dr. Pantoja Instructions for My Care at Home The following instructions will help you know what to expect in the days following surgery. These are general instructions. Your surgeon and therapist may give you special instructions, which vary to some degree based on your specific procedure -- follow those as directed. Do not, however, hesitate to call if you have any questions or concerns. Wound Care Keep incision clean and dry. Place ABD pad over incision and wear loose fitting bra to keep dressing in place. Avoid tape over the incision. You have [address] Strip drain several times per day and record output per drain. Bring output recording with you at your follow up appointment with Dr. Pantoja. Sponge baths until your follow up with Dr. Pantoja on 07/31/25. Keep incisions dry and clean. [ ] ? Activities No strenuous activity or heavy lifting. Take frequent walks. For the first 4 weeks after surgery, try to balance your activity, allowing time for rest. Avoid lifting, pushing, or pulling anything over [address] or operate heavy machinery within 24 hrs of surgery or while taking narcotic pain medication.? Pain Control/Medications You will be prescribed 1 week of oral cephalexin for infection prevention, oxycodone as needed for pain. If you received an anesthetic block, your hand or arm may be numb for several hours. You will be discharged to home with medications, including an oral pain medication (analgesic). Rest and elevation are still one of the most important factors for pain control. Take your pain medication as needed, but do not wait for the pain to become out of control. For severe pain, you may take prescription pain medication as directed, but please note that this may also contain Tylenol (e.g. Percocet). Do not take more than 4000mg of Tylenol (acetaminophen) from all sources daily.? Pain medication may cause some lethargy, nausea, and or constipation. You should not drive/operate dangerous machinery while taking these medications. If these or other symptoms become significantly problematic, please your surgeon's office. If prescribed oral antibiotics (Keflex, Clindamycin, or others), please take prescription for full duration as instructed. You should not have any pills remaining once completed (refills are written for your convenience should the course need to be extended, but generally they are not required). Diet (what I can eat): Resume normal diet as before Follow up Dr. Pantoja's office will contact you for your follow up on Wednesday07/31/25 Follow-up appointment reminders:? (A list of any scheduled appointments is at the end of this document)? At your earliest convenience, please call [phone] to confirm/schedule a follow-up appointment with [ ] in clinic. When to call your surgeon: If any signs of surgical site infection develop: redness, pus, pain, increased swelling or foul odor at the incision site, fever, cold and clammy skin, or confusion. Consistent temperature above 101?F (38.3?C). The affected area gets swollen or much more painful. You have excessive bleeding from surgical site (soaking through). If you experience difficulty breathing and/or shortness of breath, seek immediate medical attention. If experiencing any of the above complications or if you have any questions, call [phone] Discharge Orders/Prescriptions Prescriptions: New cephalexin 500 mg capsule 500 mg PO TID 7 Days Qty: 21 0RF oxycodone 5 mg tablet 5 mg PO Q8H PRN (Reason: pain) 7 Days Qty: 21 0RF Rx Instructions: For acute postoperative pain. Referrals / Follow Up: Tamiko Figueroa MD [Med Staff - Active Staff, General Surgery] Referral Note: Call for an office appointment in about 2 weeks Reza Craven PA [Med Staff - Adv Practice Prof, Plastic Surgery] Elly Salcedo PA [Primary Care Provider, Medical] Disposition Disposition (needs filled in before D/C Order can be placed): Home, Self Care
--- NOTE | 2025-07-26 08:59 | PN.SURG_ITS ---
Subjective Subjective Patient evaluated resting comfortably in bed. She notes incisional pain this morning at rest and with movement. She notes the pain medication helps slightly. She denies any nausea, vomiting, fever. She is hoping for discharge later today, however would like her pain better controlled prior to discharge. Objective Data Objective Data Vital Signs: Vital Signs Temp Pulse Resp BP Pulse Ox O2 Del Method O2 Flow Rate 98.4 F 83 16 105/60 96 Room Air 2 07/26/25 04:04 07/26/25 04:04 07/26/25 04:04 07/26/25 04:04 07/26/25 04:04 07/26/25 08:00 07/25/25 17:12 Oxygen Flow Rate (L/min) 2 Oxygen Delivery Method Room Air Weight: 167 lb 8.821 oz Body Mass Index (BMI) 32.8 Intake & Output: Intake and Output for Last 24 Hours 07/24/25 07/25/25 07/26/25 23:59 23:59 23:59 Intake Total 2940.17 / 2940.17 110 / 110 Output Total 2132 / 2132 1346 / 1346 Balance 808.17 / 808.17 -1236 / -1236 Lab / Micro Data 07/26/25 07:00 Labs: Laboratory Results - last 24 hr 07/26/25 07:00: WBC 6.7, RBC 3.07 L, Hgb 10.1 L, Hct 30.6 L, MCV 99.7 H, MCH 32.9 H, MCHC 33.0, RDW Std Deviation 53.8 H, RDW Coeff of Rufus 14.6, Plt Count 181, MPV 9.2, Immature Gran % (Auto) 0.300, Neut % (Auto) 59.5, Lymph % (Auto) 30.8, [place] % (Auto) 8.7, Eos % (Auto) 0.3, Baso % (Auto) 0.4, Absolute Neuts (auto) 4.0, Absolute Lymphs (auto) 2.06, Nucleated RBC % 0 Radiography Diagnostic Testing: Radiology Impression Breast Biopsy 07/25/25 10:05 IMPRESSION: OVERALL FINAL ASSESSMENT: BIRADS 6: Known Biopsy-Proven Malignancy. RECOMMENDATION: Waiting for pathology report. Additional Recommendation none A letter with findings and recommendations will be mailed to the patient. Reading Location: [id number] Physical Exam Chest Chest Narrative: Bilateral chest incisions c/d/i. Moderate amount of ecchymosis noted. Drains x 4 with dark bloody fluid and methylene blue noted within the drain tubing. No signs of infection noted. Assessment & Plan Assessment/Plan (1) Invasive ductal carcinoma of left breast: (2) HER2-positive carcinoma of left breast: PLAN: Plan I am following this patient in conjunction with Dr. Figueroa Await better pain control Discharge later today Dr. Figueroa will see patient in 3 weeks for follow-up in the office Dr. Pantoja will plan to see patient next week for follow-up Okay for discharge later today from our standpoint Charges/Coding Visit Charges Inpatient E&M: 46034 Subs Hosp L1 (no charge; post-op)
--- NOTE | 2025-07-26 10:09 | CASEMGMT ---
RN TERRELL NOTE: Discharge order is in. RN CM to room. Pt resting in bed, @ bedside. and pt decline [id number], states he will go to the pharmacy to pickling grader new Rx's. Pt to dc home w/4 drains. RNLorena, to educate pt on how to care for these @ home. Pt aware and states is comfortable w/learning this. Pt aware Dr Pantoja's office to call her to schedule an appt for next , 07/31. She was also made aware to schedule appt w/Dr Figueroa in 3 weeks. Pt and deny having any further discharge concerns or needs. Ghazala ANDERSONN LISA CM
--- NOTE | 2025-07-26 11:52 | PHA.DC.MR.R ---
Pharmacy [place] Med Reconciliation Pharmacy Service has performed discharge medication reconciliation for this patient. The patient's discharge medication list was reviewed for discrepancies and discrepancies were resolved. Medications at Discharge Home Medications cephalexin 500 mg capsule 500 mg PO TID 7 days #21 caps 07/26/25 oxycodone 5 mg tablet 5 mg PO Q8H PRN pain 7 days #21 tabs 07/26/25
== END 2025-07-26 11:03 | disposition home or self-care (01) ==
LOC: SDC 15:35 → MS3 15:35
PROVIDERS: Anesthesiology; Surgery Plastic and Reconstructive Surgery; Admitting Provider Surgery; PCP Physician Assistant Medical; Referring Provider Surgery; Visit Provider Surgery
PROC: (CPT 19307; principal; 2025-07-25 07:15)
PROC: (CPT 19357; 2025-07-25 07:15)
DX: C50.912 Malignant neoplasm of unspecified site of left female breast (principal); Z17.31 Human epidermal growth factor receptor 2 positive status; K21.9 Gastro-esophageal reflux disease without esophagitis; Z40.01 Encounter for prophylactic removal of breast
CPT/HCPCS: 19303; 19357; 38525; 38792; 75807; 76098; 81025; 85025; 88305; 88307; 88331; 88341; 88342; 94668; 96361; 96365; 96366; 96372; 99221; A4648; G0378; J2405

== ENCOUNTER 2025-08-04 21:56 | Emergency (ER) | payer BC, SELFPAY ==
[2025-08-04 21:57] VITALS: BP 125/79; PULSE 110; RESP 18; TEMP 36.9; O2SAT 98; BMI 32.2
[2025-08-04 21:59] VITALS: BP 112/67; PULSE 101; RESP 16; TEMP 36.7; O2SAT 98
--- NOTE | 2025-08-04 22:14 | CT_ITS ---
PROCEDURE: CTA CHEST W/WO CONTRAST 08/04/2025 REASON FOR EXAM: DYSPNEA TECHNIQUE: Procedure Code: [id number] Modality: CT Procedure: CTA CHEST W/WO CONTRAST Multiplanar Sagittal and Coronal images were obtained. CONTRAST: 100 cc of Isovue 370 One or more dose reduction techniques were used (e.g., Automated exposure control, adjustment of the mA and/or kV according to patient size, use of iterative reconstruction technique). COMPARISON: CT chest, abdomen and pelvis 02/21/2025 FINDINGS: Hardware: None. Lymph nodes: No enlarged mediastinal, hilar, or axillary lymph nodes. Heart: Not enlarged. No pericardial effusion. RV/LV Diameter Ratio: Thoracic Aorta: No thoracic aortic aneurysm or dissection. Pulmonary Vessels: No evidence of acute pulmonary emboli through the major subsegmental branches. Lungs and Airways: Lungs are clear. Airways are patent. Pleura: No pleural effusion. No pneumothorax. Upper Abdomen: Visualized portions of the upper abdominal viscera are unremarkable. Bones: Bone windows are unremarkable. Soft tissues: Bilateral breast expanders are present. CT/CTA Chest W/WO Contrast IMPRESSION: 1. No evidence of pulmonary embolism. 2. No acute findings in the chest as imaged. Reading Location[facility]
--- NOTE | 2025-08-04 22:15 | EX.ED.DYSGE1 ---
HPI <Dr. Marcos Coffey DO - Last Filed: 08/05/25 00:28> History of Present Illness Chief Complaint: Dizziness Informant: patient Onset/Context/Timing Onset: Today Context: Sudden Onset Timing: Continuous Quality: Lightheaded, off balance Location: Generalized Worsened by: Walking Relieved by: Sitting Narrative Narrative: Patient presents with dizziness that began today. Patient states she started feeling lightheaded and off balance. Patient states her symptoms are worse with walking and better with sitting still. Patient states she had a bilateral mastectomy for breast cancer on 07/25. Patient states that on 07/30 she was noted to have low blood pressure. Patient states this improved. Patient states that today she started having lightheadedness and dizziness. Patient admits to sore throat and rhinorrhea. Patient also admits to a cough. Patient admits to some nausea but denies any vomiting. PFSH <Dr. Marcos Coffey DO - Last Filed: 08/05/25 00:28> [facility] Medical History Cancer Breast cancer History of chemotherapy Port-A-Cath in place Diarrhea due to drug GERD (gastroesophageal reflux disease) Mucositis Sore throat Cough Encounter for antineoplastic chemotherapy and immunotherapy Encounter for education Wears glasses Non-smoker Shortness of breath on exertion History of echocardiogram Anemia Axillary lymphadenopathy Home Medications ?Medication ?Instructions ?Recorded ?Last Taken ?Type cephalexin 500 mg capsule 500 mg PO TID 7 days #21 caps 07/26/25 Unknown Rx oxycodone 5 mg tablet 5 mg PO Q8H PRN pain 7 days #21 07/26/25 Unknown Rx tabs Allergy/AdvReac Type Severity Reaction Status Date / Time No Known Allergies Allergy Verified 08/04/25 21:57 Family History Other No pertinent family history Surgical History History of wisdom tooth extraction delivery delivered Social History Smoking Status: Never smoker alcohol intake: never ROS <Dr. Marcos Coffey DO - Last Filed: 08/05/25 00:28> ROS ED Constitutional Constitutional ED: Denies chills or fever(s) Eyes Eyes: Denies blurry vision or change in vision ENT ENT ED: Reports rhinorrhea and sore throat Cardiovascular Cardiovascular: Denies chest pain or palpitations Respiratory/Chest Respiratory/Chest: Reports cough; Denies dyspnea Gastrointestinal Gastrointestinal: Reports nausea; Denies vomiting Genitourinary Genitourinary ED: Denies dysuria or hematuria Musculoskeletal Musculoskeletal: Denies back pain or neck pain Integumentary Denies abscess or rash Neurologic Neurologic: Denies headache(s) or weakness Allergic/Immunologic Allergic/Immunologic ED: Denies mouth swelling or urticaria EXAM <Dr. Marcos Coffey, DO - Last Filed: 08/05/25 00:28> Physical Exam Const Vital Signs: 08/04/25 21:57 08/04/25 21:59 08/04/25 22:20 Temperature 98.5 F 98.1 F Temperature Source Oral Oral Pulse Rate 110 H 101 H Pulse Rate [Lying] 86 Pulse Rate [Sitting (for 1 minute prior to obtaining)] 87 Pulse Rate [Standing (for 1 minute prior to obtaining)] 120 H Respiratory Rate 18 16 Blood Pressure 125/79 H 112/67 Blood Pressure [Lying] 114/64 Blood Pressure [Sitting (for 1 minute prior to obtaining)] 121/74 H Blood Pressure [Standing (for 1 minute prior to obtaining)] 100/70 Blood Pressure Mean 94 82 Blood Pressure Mean [Lying] 80 Blood Pressure Mean [Sitting (for 1 minute prior to obtaining)] 89 Blood Pressure Mean [Standing (for 1 minute prior to obtaining)] 80 Pulse Ox 98 98 Oxygen Delivery Method Room Air 08/04/25 22:59 08/04/25 23:00 08/05/25 00:00 Temperature 98.3 F 98.1 F 98.2 F Temperature Source Oral Oral Oral Pulse Rate 99 92 99 Pulse Rate [Lying] Pulse Rate [Sitting (for 1 minute prior to obtaining)] Pulse Rate [Standing (for 1 minute prior to obtaining)] Respiratory Rate 16 16 16 Blood Pressure 115/71 115/71 96/69 Blood Pressure [Lying] Blood Pressure [Sitting (for 1 minute prior to obtaining)] Blood Pressure [Standing (for 1 minute prior to obtaining)] Blood Pressure Mean 85 85 78 Blood Pressure Mean [Lying] Blood Pressure Mean [Sitting (for 1 minute prior to obtaining)] Blood Pressure Mean [Standing (for 1 minute prior to obtaining)] Pulse Ox 100 98 99 Oxygen Delivery Method Room Air Room Air Room Air 08/05/25 01:00 08/05/25 02:00 08/05/25 03:00 Temperature 98.2 F 98.1 F 98.1 F Temperature Source Oral Oral Oral Pulse Rate 89 94 113 H Pulse Rate [Lying] Pulse Rate [Sitting (for 1 minute prior to obtaining)] Pulse Rate [Standing (for 1 minute prior to obtaining)] Respiratory Rate 16 16 16 Blood Pressure 107/74 107/76 118/75 Blood Pressure [Lying] Blood Pressure [Sitting (for 1 minute prior to obtaining)] Blood Pressure [Standing (for 1 minute prior to obtaining)] Blood Pressure Mean 85 86 89 Blood Pressure Mean [Lying] Blood Pressure Mean [Sitting (for 1 minute prior to obtaining)] Blood Pressure Mean [Standing (for 1 minute prior to obtaining)] Pulse Ox 100 99 99 Oxygen Delivery Method Room Air Room Air Room Air 08/05/25 04:00 Temperature 98.2 F Temperature Source Oral Pulse Rate 96 Pulse Rate [Lying] Pulse Rate [Sitting (for 1 minute prior to obtaining)] Pulse Rate [Standing (for 1 minute prior to obtaining)] Respiratory Rate 16 Blood Pressure 113/60 Blood Pressure [Lying] Blood Pressure [Sitting (for 1 minute prior to obtaining)] Blood Pressure [Standing (for 1 minute prior to obtaining)] Blood Pressure Mean 77 Blood Pressure Mean [Lying] Blood Pressure Mean [Sitting (for 1 minute prior to obtaining)] Blood Pressure Mean [Standing (for 1 minute prior to obtaining)] Pulse Ox 98 Oxygen Delivery Method Room Air Positive well nourished and well developed General Appearance ED: well developed and NAD HEENT Reports moist mucous membranes Eyes PERRL and EOMs intact bilaterally Eyes Narrative: There is mild nystagmus with lateral gaze. Neck supple and no JVD Resp normal respiratory effort and clear to auscultation bilaterally Cardio regular rhythm Rate: tachycardic GI non-tender and non-distended Palpation: soft Neuro oriented x3, CN's II-XII intact bilaterally and no sensory deficits noted Sensorium / Orientation: alert Motor Exam: strength 5/5 throughout Psych mental status grossly normal <Dr. Anais Vargas, DO - Last Filed: 08/05/25 05:51> Physical Exam Const Vital Signs: 08/04/25 21:57 08/04/25 21:59 08/04/25 22:20 Temperature 98.5 F 98.1 F Temperature Source Oral Oral Pulse Rate 110 H 101 H Pulse Rate [Lying] 86 Pulse Rate [Sitting (for 1 minute prior to obtaining)] 87 Pulse Rate [Standing (for 1 minute prior to obtaining)] 120 H Respiratory Rate 18 16 Blood Pressure 125/79 H 112/67 Blood Pressure [Lying] 114/64 Blood Pressure [Sitting (for 1 minute prior to obtaining)] 121/74 H Blood Pressure [Standing (for 1 minute prior to obtaining)] 100/70 Blood Pressure Mean 94 82 Blood Pressure Mean [Lying] 80 Blood Pressure Mean [Sitting (for 1 minute prior to obtaining)] 89 Blood Pressure Mean [Standing (for 1 minute prior to obtaining)] 80 Pulse Ox 98 98 Oxygen Delivery Method Room Air 08/04/25 22:59 08/04/25 23:00 08/05/25 00:00 Temperature 98.3 F 98.1 F 98.2 F Temperature Source Oral Oral Oral Pulse Rate 99 92 99 Pulse Rate [Lying] Pulse Rate [Sitting (for 1 minute prior to obtaining)] Pulse Rate [Standing (for 1 minute prior to obtaining)] Respiratory Rate 16 16 16 Blood Pressure 115/71 115/71 96/69 Blood Pressure [Lying] Blood Pressure [Sitting (for 1 minute prior to obtaining)] Blood Pressure [Standing (for 1 minute prior to obtaining)] Blood Pressure Mean 85 85 78 Blood Pressure Mean [Lying] Blood Pressure Mean [Sitting (for 1 minute prior to obtaining)] Blood Pressure Mean [Standing (for 1 minute prior to obtaining)] Pulse Ox 100 98 99 Oxygen Delivery Method Room Air Room Air Room Air 08/05/25 01:00 08/05/25 02:00 08/05/25 03:00 Temperature 98.2 F 98.1 F 98.1 F Temperature Source Oral Oral Oral Pulse Rate 89 94 113 H Pulse Rate [Lying] Pulse Rate [Sitting (for 1 minute prior to obtaining)] Pulse Rate [Standing (for 1 minute prior to obtaining)] Respiratory Rate 16 16 16 Blood Pressure 107/74 107/76 118/75 Blood Pressure [Lying] Blood Pressure [Sitting (for 1 minute prior to obtaining)] Blood Pressure [Standing (for 1 minute prior to obtaining)] Blood Pressure Mean 85 86 89 Blood Pressure Mean [Lying] Blood Pressure Mean [Sitting (for 1 minute prior to obtaining)] Blood Pressure Mean [Standing (for 1 minute prior to obtaining)] Pulse Ox 100 99 99 Oxygen Delivery Method Room Air Room Air Room Air 08/05/25 04:00 Temperature 98.2 F Temperature Source Oral Pulse Rate 96 Pulse Rate [Lying] Pulse Rate [Sitting (for 1 minute prior to obtaining)] Pulse Rate [Standing (for 1 minute prior to obtaining)] Respiratory Rate 16 Blood Pressure 113/60 Blood Pressure [Lying] Blood Pressure [Sitting (for 1 minute prior to obtaining)] Blood Pressure [Standing (for 1 minute prior to obtaining)] Blood Pressure Mean 77 Blood Pressure Mean [Lying] Blood Pressure Mean [Sitting (for 1 minute prior to obtaining)] Blood Pressure Mean [Standing (for 1 minute prior to obtaining)] Pulse Ox 98 Oxygen Delivery Method Room Air [facility] <Dr. Marcos Coffey, DO - Last Filed: 08/05/25 00:28> [facility] Narrative Medical decision making narrative: Differential diagnosis includes vertigo, labyrinthitis, electrolyte abnormality, dehydration, pulmonary embolism, pneumonia, sepsis, and viral illness. CTA chest will be obtained to assess for pulmonary embolism and pneumonia. CBC will be obtained to assess for leukocytosis and anemia. Basic metabolic profile will be obtained to assess for electrolyte abnormality and renal function. PT with INR and PTT will be obtained to assess for coagulopathy. Serum lactate will be obtained to assess for sepsis. Urinalysis will be obtained to assess for urinary tract infection and hematuria. Blood cultures will be obtained to assess for sepsis. Urine culture will be obtained to assess for urinary tract infection. History & Record Review Additional record(s) reviewed:: Prior inpatient record, Prior outpatient record and Prior labs Lab Data Attestation: I reviewed the patient's lab results. Lab results narrative: CBC was reviewed. There is a mild anemia with a hemoglobin of 11.6 and hematocrit of 35.2. The remainder is within normal limits. Basic metabolic profile was reviewed. Potassium slightly low at 3.3. The remainder is within normal limits. PT with INR and PTT were reviewed and were within normal limits. Serum lactate was reviewed and was less than 1.0. Labs: Laboratory Results - last 24 hr 08/04/25 08/04/25 00:28 22:33 WBC 5.1 RBC 3.64 L Hgb 11.6 L Hct 35.2 L MCV 96.7 MCH 31.9 MCHC 33.0 RDW Std Deviation 48.1 H RDW Coeff of Rufus 13.3 Plt Count 218 MPV 9.2 Immature Gran % (Auto) 0.400 Neut % (Auto) 53.0 Lymph % (Auto) 35.4 [place] % (Auto) 7.7 Eos % (Auto) 3.1 Baso % (Auto) 0.4 Absolute Neuts (auto) 2.7 Absolute Lymphs (auto) 1.80 Nucleated RBC % 0 PT 12.4 INR 0.9 APTT 26.5 Sodium 141 Potassium 3.3 L Chloride 105 Carbon Dioxide 27.2 Anion Gap 9 BUN 11 Creatinine 0.55 L Estim Creat Clear Calc 137.69 Est GFR (MDRD) Non-Af 128 BUN/Creatinine Ratio 20.0 Glucose 97 Lactic Acid < 1.0 Calcium 8.9 Urine Color Yellow Urine Clarity Clear Urine pH 7.0 Ur Specific [place] 1.010 Urine Protein Negative Urine Glucose (UA) Normal Urine Ketones Negative Urine Occult Blood Negative Urine Nitrite Negative Urine Bilirubin Negative Urine Urobilinogen Normal Ur Leukocyte Esterase Negative Urine RBC 0-5 SEEN Urine WBC 0-5 SEEN Ur Squamous Epith Cells 0 SEEN Urine Bacteria 0 SEEN Urine Mucus 0 SEEN Radiography Diagnostic Testing: Clinical Impression(s) from Imaging Studies Chest CTA 08/04/25 22:14 IMPRESSION: 1. No evidence of pulmonary embolism. 2. No acute findings in the chest as imaged. Reading Location: [facility] Treatment and Re-Evaluation :: Patient was given IV fluids. Orthostatic vital signs were obtained and were positive. Patient was given a second liter of normal saline. Patient was feeling better on reevaluation. Patient was advised of her findings. Care of the patient was turned over to the oncoming physician pending CTA results and urinalysis results. <Dr. Anais Vargas, DO - Last Filed: 08/05/25 05:51> [facility] Lab Data Labs: Laboratory Results - last 24 hr 08/04/25 08/04/25 00:28 22:33 WBC 5.1 RBC 3.64 L Hgb 11.6 L Hct 35.2 L MCV 96.7 MCH 31.9 MCHC 33.0 RDW Std Deviation 48.1 H RDW Coeff of Rufus 13.3 Plt Count 218 MPV 9.2 Immature Gran % (Auto) 0.400 Neut % (Auto) 53.0 Lymph % (Auto) 35.4 [place] % (Auto) 7.7 Eos % (Auto) 3.1 Baso % (Auto) 0.4 Absolute Neuts (auto) 2.7 Absolute Lymphs (auto) 1.80 Nucleated RBC % 0 PT 12.4 INR 0.9 APTT 26.5 Sodium 141 Potassium 3.3 L Chloride 105 Carbon Dioxide 27.2 Anion Gap 9 BUN 11 Creatinine 0.55 L Estim Creat Clear Calc 137.69 Est GFR (MDRD) Non-Af 128 BUN/Creatinine Ratio 20.0 Glucose 97 Lactic Acid < 1.0 Calcium 8.9 Urine Color Yellow Urine Clarity Clear Urine pH 7.0 Ur Specific [place] 1.010 Urine Protein Negative Urine Glucose (UA) Normal Urine Ketones Negative Urine Occult Blood Negative Urine Nitrite Negative Urine Bilirubin Negative Urine Urobilinogen Normal Ur Leukocyte Esterase Negative Urine RBC 0-5 SEEN Urine WBC 0-5 SEEN Ur Squamous Epith Cells 0 SEEN Urine Bacteria 0 SEEN Urine Mucus 0 SEEN Radiography Diagnostic Testing: Clinical Impression(s) from Imaging Studies Chest CTA 08/04/25 22:14 IMPRESSION: 1. No evidence of pulmonary embolism. 2. No acute findings in the chest as imaged. Reading Location: [facility] Treatment and Re-Evaluation :: Patient was given IV fluids. Orthostatic vital signs were obtained and were positive. Patient was given a second liter of normal saline. Patient was feeling better on reevaluation. Patient was advised of her findings. Care of the patient was turned over to the oncoming physician pending CTA results and urinalysis results. Patient was endorsed to me pending the CT angio of the chest which was unremarkable patient states she is feeling better her urinalysis was without evidence of infection that being said she does have kids at home that have conjunctivitis and sure enough hers started to present itself here so did provide her with some [place] return precautions follow-up recommendations provided patient stable for discharge home Anais Vargas DO Discharge Plan Triage Chief Complaint: Dizziness ED Provider: Marcos Coffey Dx/Rx/DC Orders Clinical Impression: Dizziness, HER2-positive carcinoma of left breast, Acute conjunctivitis, right eye Instructions: ED Conjunctivitis, Nonspecific Prescriptions: No Action cephalexin 500 mg capsule 500 mg PO TID 7 Days Qty: 21 0RF oxycodone 5 mg tablet 5 mg PO Q8H PRN (Reason: pain) 7 Days Qty: 21 0RF Rx Instructions: For acute postoperative pain. Primary Care Provider: Elly Salcedo Referrals: Elly Salcedo PA [Primary Care Provider, Medical] Activity Restrictions/Additional Instructions: Add 2 drops to your affected eye every 6 hours for 7 days follow-up with ophthalmology if needed otherwise please return if getting worse Print Language: Yakut Disposition Disposition: Home, Self Care
[2025-08-04 22:20] VITALS: BP 100/70; BP 114/64; BP 121/74; PULSE 120; PULSE 86; PULSE 87
[2025-08-04 22:42] LABS: Hematocrit 35.2 % (37-47); Hemoglobin 11.6 g/dL (12.0-15.0); Immature Granulocytes Count 0.020 X10^3/uL (0.0-0.0); Mean Corp Hgb Conc 33.0 g/dL (32-36); Mean Corpuscular Volume 96.7 fL (81-99); Mean Platelet Vol. 9.2 fl (6.2-12.0); NRBC Flagged by Analyzer 0 % (0-5); Platelet Count 218 K/mm3 (150-450); RBC Distribution Width CV 13.3 % (11.6-14.6); RBC Distribution Width SD 48.1 fl (35.1-43.9); Red Blood Count 3.64 M/mm3 (4.2-5.4); White Blood Count 5.1 K/mm3 (4.4-11.0)
--- OUTSIDE RECORDS SUMMARY | 2025-08-04 22:48 | XMS RPT_ITS | CCD ---
Author Organization [facility] Inform ion Partnership [facility] Care Team Providers Care Senior Manager Asset Protection Name Role Phone Elton Bauer Unavailable [phone] Unavailable Primary Care Provider Unavailras Cleveland MD, Kinjal Isaac Primary Care Provide r KEYSHAWN YBARRA Attending Unava ilable KINJAL CLEVELAND Primary Care Unavail josiah Cleveland MD, Kinjal Gray Primary [facility] Provide r KINJAL [place] Primary Care Unavail able CASSANDRA DAVID Attending Unavailable NATALYA SOSA Admitting Unavailable MARIELA SCHULZ Referring Unavailable KINJAL CLEVELAND Attending Unavail able KINJAL CLEVELAND Primary Care Unavail able Ryan Cochran PA-C Primary Care Provider Ryan Pike Primary Care Provider Ryan Pike Referring Provider [phone] Dr. Tamiko Mccarthy MD Attending Provider Dr. Tamiko Mccarthy MD Referring Provider [phone] Dr. Ara Franklin MD Attending Provider Dr. Ara Franklin MD Referring Provider RYAN COCHRAN Attending Unavailable KINJAL CLEVELAND Primary Care Unavail able RYAN COCHRAN Attending Unavailable KINJAL CLEVELAND Primary Care Unavail able RYAN COCHRAN Attending Unavailable RYAN COCHRAN Primary Care Unavailable [place] Dr. Jayjay MATOS Attending Provider Scarlett MATOS, Dr. Rodriguez Attending Provider Dr. Tamiko Mccarthy MD Other Provider Raimundo COURT LIAISON-C, Sheila Attending Provider Raimundo COURT LIAISON-C, Sheila Referring Provider Hong MATOS, [place] Unavailable Karon MATOS, Radha Unavailable Uzma Mccallum CGC Unavailable Unavailable [place] PA-C, Ryan B Primary Care Provider UZMA [...] Dr. Tamiko Mccarthy MD Nurse Practitioner Raimundo COURT LIAISON-C, Sheila Attending Physician [place] PA, Ryan Primary Care Physician Raimundo COURT LIAISON-C, Sheila Attending Physician Raimundo COURT LIAISON-C, Sheila Referring Provider Dimas PA, Ryan Referring Provider Dr. Tamiko Mccarthy MD Attending Physician Dr. Ara Franklin MD Attending Physician Dr. Roge Mccabe MDril Attending Physician Rigoberto MATOS, Dr. Bullock Referring Provider Dr. Michael Pantoja MD Attending Physician [place] PA-C, Ryan B Primary Care Provider DIMAS, [...] Dimas PA, Ryan Primary Care Unavailabl e [place] PA, Ryan Referring Unavailabl e Robotham, Tamiko Attending Unavailable Robotham, Tamiko Consulting Unavailable Robotham, Tamiko Referring Unavailable Dimas PA, Ryan Primary Care Unavailabl e [place] PA, [place] Primary Care Unavailabl e Dimas PA, Ryan Referring Unavailabl e Raimundo COURT LIAISON, Sheila Attending Unavailable [place] PA, Ryan Primary Care Unavailabl e [place] PA, Ryan Referring Unavailabl e Ara Franklin Attending Unavailable [place] PA, Ryan Primary Care Unavailabl e Ara Franklin Attending Unavailable Ara Franklin Referring Unavailable [place] PA, Ryan Primary Care Unavailabl e Ara Franklin Attending Unavailable Ara Franklin Referring Unavailable Robotham, Tamiko Attending Unavailable Robotham, Tamiko Referring Unavailable Idmas PA, Ryan Primary Care Unavailabl e Dimas PA, Ryan Primary Care Unavailabl e Jayjay Mccabe Attending Unavailable Dimas PA, Ryan Primary Care Unavailabl e Jayjay Mccabe Attending Unavailable Dimas PA, Ryan Primary Care Unavailabl e [place] PA, Ryan Referring Unavailabl e Ara Franklin Attending Unavailable [place] PA, Ryan Referring Unavailabl e Robotham, Tamiko Attending Unavailable [place] PA, Ryan Primary Care Unavailabl e Robotham, Tamiko Referring Unavailable Dimas PA, [place] Primary Care Unavailabl e Ara Franklin Attending Unavailable Dimas PA, [place] Referring Unavailabl e Robotham, Tamiko Attending Unavailable [place] PA, [facility] Unavailabl e [place] PA, [place] Referring Unavailabl e Dimas PA, [facility] Unavailabl e Ara Franklin Attending Unavailable Dimas PA, [place] Referring Unavailabl e Raimundo [address] LIAISON, Sheila Attending Unavailable Dimas PA, [facility] Unavailabl e Dimas PA, [facility] Unavailabl e Raimundo [address] LIAISON, Sheila Attending Unavailable Raimundo COURT LIAISON, Sheila Referring Unavailable Dimas PA, [facility] Unavailabl e Raimundo [address] LIAISON, Sheila Attending Unavailable Raimundo COURT LIAISON, Sheila Referring Unavailable [place] PA, [facility] Unavailabl e Raimundo [address] LIAISON, Sheila Referring Unavailable Raimundo COURT LIAISON, Sheila Attending Unavailable Dimas PA, [place] Referring Unavailabl e Michael Pantoja Attending Unavailable Dimas PA, [facility] Unavailabl e [place] PA, [place] Referring Unavailabl e Raimundo COURT LIAISON, Sheila Attending Unavailable Dimas PA, [facility] Unavailabl e Robotham, Tamiko Attending Unavailable Robotham, Tamiko Referring Unavailable [place] PA, [facility] Unavailabl e Robotham, Tamiko Attending Unavailable Robotham, Tamiko Referring Unavailable [place] PA, [facility] Unavailabl e Michael Pantoja Attending Unavailable [place] PA, [facility] Unavailabl e [place] PA, [place] Referring Unavailabl e Dimas PA, [place] Referring Unavailabl e [place] PA, [facility] Unavailabl e Ara Franklin Attending Unavailable [place] PA, [place] Referring Unavailabl e Dimas PA, [facility] Unavailabl e Raimundo COURT LIAISON, Sheila Attending Unavailable Robotham, Tamiko Attending Unavailable Robotham, Tamiko Referring Unavailable [place] PA, [facility] Unavailabl e Allergies Allergy Classification Reported Allergen(s) Allergy Type Date of Onset Reaction(s) Facility (5 sources) gibraltarian elm pollen extract Propensity to adverse reactions to drug 12-23-2016 Itching [facility] (5 sources) red maple pollen extract Propensity to adverse reactions to drug 12-23-2016 Itching [facility] Medications Current Medications Medication Drug Class(es) Dates [...] oral solution (1 source) alpha-Adrenergic Agonist, Uncompetitive U-hporep-T-aspartate Receptor Antagonist, Sigma-1 Agonist Start: 06-07-2025 Start: [...] Intramuscular, EVERY 24 HOURS, First dose on [facility] 01/16/21 at 2215, For 2 doses Per [...] Intravenous, at 125 mL/hr, CONTINUOUS, Starting on [facility] 01/16/21 at 2215 ceFAZolin 2000 mg injection [...] at mealtime naproxen (EC NAPROSYN) 375 MG [facility] Indications: Cervical myofascial pain syndrome Take [...] Absolute Lymph 0.59 X10 3/uL Low 0.83-4.51 [facility] Comment on above: Performed By: #### L 501.2300 #### [facility] [address] [place], [address] Absolute Neut 5.9 X10 3/uL Normal 2.0-7.7 [facility] Comment on above: Performed By: #### L 501.2300 #### [facility] [address] [place], [address] Basophils/100 WBC (Bld) 0.1 % Normal 0-1 [facility] Comment on above: Performed By: #### L 501.2300 #### [facility] [address] [place], [address] Eosinophils/100 WBC (Bld) 0.0 % Normal 0-5 [facility] Comment on above: Performed By: #### L 501.2300 #### [facility] [address] [place], [address] Erythrocyte distribution width (RBC) [Ratio] 17.5 % High 11.6-14.6 [facility] Comment on above: Performed By: #### L 501.2300 #### [facility] [address] [place], [address] Hematocrit (Bld) [Volume fraction] 34.5 % Low 37-47 [facility] Comment on above: Performed By: #### L 501.230 #### [facility] [address] [place], [address] Hemoglobin (Bld) [Mass/Vol] 11.1 g/dL Low 12.0-15.0 [facility] Comment on above: Performed By: #### L 501.2300 #### [facility] [address] [place], [address] IG% 0.700 Normal 0.0-0.9 [facility] Comment on above: Result Comment: IG% - Immature Granulocytes (promyelocytes, myelocytes and metamyelocytes) > 1% indicates that a LEFT SHIFT is Present. Performed By: #### L 501.2299 #### [facility] [address] [place], [address] Lymphocytes/100 WBC (Bld) 8.7 % Low 19-41 [facility] Comment on above: Performed By: #### L 501.2300 #### [facility] [address] [place], [address] MCH (RBC) [Entitic mass] 32.3 pg High 27.0-32.0 [facility] Comment on above: Performed By: #### L 501.2300 #### [facility] [address] [place], [address] MCHC (RBC) [Mass/Vol] 32.2 g/dL Normal 32-36 [facility] Comment on above: Performed By: #### L 501.2300 #### [facility] [address] [place], [address] MCV (RBC) [Entitic vol] 100.3 fL High 81-99 [facility] Comment on above: Performed By: #### L 501.2300 #### [facility] [address] [place], [address] Monocytes/100 WBC (Bld) 4.1 % Normal 0-10 [facility] Comment on above: Performed By: #### L 501.2300 #### [facility] [address] [place], [address] Neutrophils/100 WBC (Bld) 86.4 % High 47-70 [facility] Comment on above: Performed By: #### L 501.2300 #### [facility] [address] [place], [address] Nucleated RBC (Bld) [#/Vol] 0 10*3/uL Normal 0-5 [facility] Comment on above: Performed By: #### L 501.2300 #### [facility] [address] [place], [address] Platelet mean volume (Bld) [Entitic vol] 10.1 fL Normal 6.2-12.0 [facility] Comment on above: Performed By: #### L 501.2300 #### [facility] [address] [place], [address] Platelets (Bld) [#/Vol] 160 10*3/uL Normal 150-450 [facility] Comment on above: Performed By: #### L 501.2300 #### [facility] [address] [place], [address] RBC (Bld) [#/Vol] 3.44 10*6/uL Low 4.2-5.4 [facility] Comment on above: Performed By: #### L 501.2300 #### [facility] [address] [place], [address] RDW SD 64.8 fl High 35.1-43.9 [facility] Comment on above: Performed By: #### L 501.2300 #### [facility] [address] [place], [address] WBC (Bld) [#/Vol] 6.8 10*3/uL Normal 4.4-11.0 [facility] Comment on above: Performed By: #### L 501.2300 #### [facility] [address] [place], [address] Comprehensive Metabolic Prof ilon 06-20-2025 Albumin [Mass/Vol] 3.9 g/dL Normal 3.5-5.0 [facility] Comment on above: Performed By: #### L 501.2300 #### [facility] [address] [place], [address] Albumin/Globulin [Mass ratio] 1.5 {ratio} Normal 0.9-2.4 [facility] Comment on above: Performed By: #### L 501.2300 #### [facility] [address] [place], [address] ALK PHOS 80 U/L Normal 35-104 [facility] Comment on above: Performed By: #### L 501.2300 #### [facility] [address] [place], [address] ALT [Catalytic activity/Vol] 73 U/L High <=34 [facility] Comment on above: Performed By: #### L 501.2300 #### [facility] [address] [place], [address] AST [Catalytic activity/Vol] 28 U/L Normal <=31 [facility] Comment on above: Performed By: #### L 501.2300 #### [facility] [address] [place], [address] Bilirubin [Mass/Vol] 0.21 mg/dL Normal 0.00-1.30 [facility] Comment on above: Performed By: #### L 501.2300 #### [facility] [address] [place], [address] BUN/CRE 20.8 RATIO High 10-20 [facility] Comment on above: Performed By: #### L 501.2300 #### [facility] [address] [place], [address] Calcium [Mass/Vol] 9.2 mg/dL Normal 7.6-11.0 [facility] Comment on above: Performed By: #### L 501.2300 #### [facility] [address] [place], [address] Chloride [Moles/Vol] 104 mmol/L Normal 98-108 [facility] Comment on above: Performed By: #### L 501.2300 #### [facility] [address] [place], [address] CO2 [Moles/Vol] 20.4 mmol/L Low 21.0-32.0 [facility] Comment on above: Performed By: #### L 501.2300 #### [facility] [address] [place], [address] Creatinine [Mass/Vol] 0.72 mg/dL Normal 0.70-1.20 [facility] Comment on above: Performed By: #### L 501.2300 #### [facility] [address] [place], [address] ECRCL 106.51 ml/min Normal 50-250 [facility] Comment on above: Performed By: #### L 501.2300 #### [facility] [address] [place], [address] GAP 15 Normal 5-15 [facility] Comment on above: Performed By: #### L 501.2300 #### [facility] [address] [place], [address] GFR/1.73 sq M.predicted among non-blacks MDRD (S/P/Bld) [Vol rate/Area] 117 mL/min/{1.73_m2} Normal >60 [facility] Comment on above: Result Comment: mL/m in/1.73m2 CKD-EPI Creatinine Equation (2020) Performed By: #### L 501.2300 #### [facility] [address] [place], [address] Globulin (S) [Mass/Vol] 2.6 g/dL Normal 2.2-4.2 [facility] Comment on above: Performed By: #### L 501.2300 #### [facility] [address] [place], [address] Glucose [Mass/Vol] 133 mg/dL High 70-99 [facility] Comment on above: Performed By: #### L 501.2300 #### [facility] [address] [place], [address] Potassium [Moles/Vol] 4.2 mmol/L Normal 3.3-5.1 [facility] Comment on above: Performed By: #### L 501.2300 #### [facility] [address] [place], [address] Sodium [Moles/Vol] 139 mmol/L Normal 133-145 [facility] Comment on above: Performed By: #### L 501.2300 #### [facility] [address] [place], [address] T PROT 6.6 g/dL Normal 5.9-8.4 [facility] Comment on above: Performed By: #### L 501.2300 #### [facility] [address] [place], [address] Urea nitrogen [Mass/Vol] 15 mg/dL Normal 4-19 [facility] Comment on above: Performed By: #### L 501.2300 #### [facility] [address] [place], [address] Magnesiumon 06-20-2025 Magnesium [Mass/Vol] 1.9 mg/dL Normal 1.5-2.2 [facility] Comment on above: Performed By: #### L 501.2300 #### [facility] [address] [place], [address] Oncology Visit Reporton 06-09 Oncology Visit Report [facility] [address] 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 January 25, [...] as like really bad gas. Presented to [facility] ED with these complaints. Per patient self [...] abd pain, swelling of her extremities, numbness/tingling. [facility] Medical History Mucositis Sore throat Cough Encounter [...] tabs lidocaine- (more content not included)... Normal [facility] Phosphoruson 06-20-2025 Phosphate [Mass/Vol] 3.7 mg/dL Normal 2.7-4.5 [facility] Comment on above: Performed By: #### L 501.2300 #### [facility] [address] [facility] [place], [address] ,Urineon 06-20-2025 Beta HCG ( test) Ql (U) Negative Normal [facility] Comment on above: Result Comment: Very dilute urine specimens, as indicated by a low specific gravity, may not contain medical detail representative levels of hCG. If is still suspected, a first morning urine specimen should be collected 48 hours later and tested. Performed By: #### L 501.2300 #### [facility] [address] [facility] [address] [place], [place], [address] Bacteriaon 06-19-2025 Bacteria identified Cx Nom (Bld) Test: Blood Culture Specimen Source: Peripheral Venipuncture Specimen Type: Blood culture Specimen Date: 06/19/2025 0010 Result Date: 06/20/2025 1200 Result Status: Preliminary result Abnormal: No Resulting Lab: [facility] [address] [address] CULTURE No growth at [address] [facility] Comment on above: Performed By: #### 6 00-7 ####FAISAL Chery ([id number])[facility] ([facility])[address] [id number] XR Chest Single viewon 06-19 1. No focal consolidation. MACRO: None Signed by: Astrid Zaidi 06/19/2025 12:33 AM Dictation workstation: [id number] [facility] Interpreted By: Astrid Meng, STUDY: XR CHEST 1 VIEW; 06/18/2025 11:57 pm INDICATION: Signs/Symptoms:pneumonia. COMPARISON: 05/22/2024 ACCESSION NUMBER(S): [id number] ORDERING CLINICIAN: MARIELA SCHULZ FINDINGS: AP radiograph [...] pm INDICATION: Signs/Symptoms:pneumonia. COMPARISON: 05/22/2024 ACCESSION NUMBER(S): [id number] ORDERING CLINICIAN: MARIELA SCHULZ FINDINGS: AP radiograph [...] Astrid Zaidi 06/19/2025 12:33 AM Dictation workstation: [id number] [facility] Work Phone: XR Chest Single viewOrdered By: Astrid Zaidi on 06-19-2025 [facility] Work Phone: CBC W Auto Differential pane l (Bld)on 06-18-2025 Basophils (Bld) [#/Vol] 0.03 10*3/uL [facility] Basophils/100 WBC (Bld) 0.3 % 0.0 - 2.0 % [facility] Eosinophils (Bld) [#/Vol] 0.04 10*3/uL [facility] Eosinophils/100 WBC (Bld) 0.4 % 0.0 - 6.0 % [facility] Erythrocyte distribution width (RBC) [Ratio] 17.6 % High 11.5 - 14.5 % [facility] Hematocrit (Bld) [Volume fraction] 35.3 % Low 36.0 - 46.0 % [facility] Hemoglobin (Bld) [Mass/Vol] 11.5 g/dL Low 12.0 - 16.0 g/dL [facility] Immature granulocytes (Bld) [#/Vol] 0.03 10*3/uL [facility] Immature granulocytes/100 WBC (Bld) 0.3 % 0.0 - 0.9 % [facility] Comment on above: Immature Granulocyte Count (IG) includes promyelocytes, myelocytes and metamyelocytes but does not include bands. Percent differential counts (%) should be interpreted in the context of the absolute cell counts (cells/UL). Interpretation and review of laboratory results Abnormal [facility] Lymphocytes (Bld) [#/Vol] 0.78 10*3/uL Low [facility] Lymphocytes/100 WBC (Bld) 7.6 % 13.0 - 44.0 % [facility] MCH (RBC) [Entitic mass] 32.3 pg 26.0 - 34.0 pg [facility] MCHC (RBC) [Mass/Vol] 32.6 g/dL 32.0 - 36.0 g/dL [facility] MCV (RBC) [Entitic vol] 99 fL 80 - 100 fL [facility] Monocytes (Bld) [#/Vol] 0.39 10*3/uL [facility] Monocytes/100 WBC (Bld) 3.8 % 2.0 - 10.0 % [facility] Neutrophils (Bld) [#/Vol] 9.06 10*3/uL High [facility] Comment on above: Percent differential counts (%) should be interpreted in the context of the absolute cell counts (cells/uL). Neutrophils/100 WBC (Bld) 87.6 % 40.0 - 80.0 % [facility] Nucleated RBC/100 WBC (Bld) [Ratio] 0.0 % [facility] Platelets (Bld) [#/Vol] 127 10*3/uL Low [facility] RBC (Bld) [#/Vol] 3.56 10*6/uL Low [facility] WBC (Bld) [#/Vol] 10.3 10*3/uL [facility] Basophils (Bld) [#/Vol] 0.03 x10*3/uL Normal 0.00-0.10 [facility] Comment on above: Performed By: #### 5 7021-8 #### KARUNA VILLANUEVA ([id number]) [facility] ([facility]) [address] [place] [address] Basophils/100 WBC (Bld) 0.3 % Normal 0.0-2.0 [facility] Comment on above: Performed By: #### 5 7021-8 #### KARUNA VILLANUEVA ([id number]) [facility] ([facility]) [address] [place] [address] Eosinophils (Bld) [#/Vol] 0.04 x10*3/uL Normal 0.00-0.70 [facility] Comment on above: Performed By: #### 5 7021-8 #### KARUNA VILLANUEVA ([id number]) [facility] ([facility]) [address] [place] [address] Eosinophils/100 WBC (Bld) 0.4 % Normal 0.0-6.0 [facility] Comment on above: Performed By: #### 5 7021-8 #### KARUNA VILLANUEVA ([id number]) [facility] ([facility]) [address] [place] [address] Erythrocyte distribution width (RBC) [Ratio] 17.6 % High 11.5-14.5 [facility] Comment on above: Performed By: #### 5 7021-8 #### KARUNA VILLANUEVA (77604) [facility] ([facility]) [address] [place] [address] Hematocrit (Bld) [Volume fraction] 35.3 % Low 36.0-46.0 [facility] Comment on above: Performed By: #### 5 7021-8 #### KARUNA VILLANUEVA ([id number]) [facility] ([facility]) [address] [place] [address] Hemoglobin (Bld) [Mass/Vol] 11.5 g/dL Low 12.0-16.0 [facility] Comment on above: Performed By: #### 5 7021-8 #### KARUNA VILLANUEVA ([id number]) [facility] ([facility]) [address] [place] [address] Immature granulocytes (Bld) [#/Vol] 0.03 x10*3/uL Normal 0.00-0.70 [facility] Comment on above: Performed By: #### 5 7021-8 #### KARUNA VILLANUEVA ([id number]) [facility] ([facility]) [address] [place] [address] Immature granulocytes/100 WBC (Bld) 0.3 % Normal 0.0-0.9 [facility] Comment on above: Result Comment: Karen ture Granulocyte Count (IG) includes promyelocytes, myelocytes and metamyelocytes but does not include bands. Percent differential counts (%) should be interpreted in the context of the absolute cell counts (cells/UL). Performed By: #### 5 7021-8 #### KARUNA VILLANUEVA ([id number]) [facility] ([facility]) [address] [place], [place] [id number] Lymphocytes (Bld) [#/Vol] 0.78 x10*3/uL Low 1.20-4.80 [facility] Comment on above: Performed By: #### 5 7021-8 #### KARUNA VILLANUEVA ([id number]) [facility] ([facility]) [address] [place] [address] 55670 Lymphocytes/100 WBC (Bld) 7.6 % Normal 13.0-44.0 [facility] Comment on above: Performed By: #### 7021-8 #### KARUNA VILLANUEVA ([id number]) [facility] ([facility]) [address] [place] [address] 44930 MCH (RBC) [Entitic mass] 32.3 pg Normal 26.0-34.0 [facility] Comment on above: Performed By: #### 7021-8 #### KARUNA VILLANUEVA ([id number]) [facility] ([facility]) [address] [place] [address] 26166 MCHC (RBC) [Mass/Vol] 32.6 g/dL Normal 32.0-36.0 [facility] Comment on above: Performed By: #### 7021-8 #### KARUNA VILLANUEVA ([id number]) [facility] ([facility]) [address] [place] [address] 03301 MCV (RBC) [Entitic vol] 99 fL Normal 80-100 [facility] Comment on above: Performed By: #### 7021-8 #### KARUNA VILLANUEVA ([id number]) [facility] ([facility]) [address] [place] [address] 60550 Monocytes (Bld) [#/Vol] 0.39 x10*3/uL Normal 0.10-1.00 [facility] Comment on above: Performed By: #### 5 7021-8 #### KARUNA VILLANUEVA ([id number]) [facility] ([facility]) [address] [place] [address] 74853 Monocytes/100 WBC (Bld) 3.8 % Normal 2.0-10.0 [facility] Comment on above: Performed By: #### 5 7021-8 #### KARUNA VILLANUEVA ([id number]) [facility] ([facility]) [address] [place] [address] 98147 Neutrophils (Bld) [#/Vol] 9.06 x10*3/uL High 1.20-7.70 [facility] Comment on above: Result Comment: Perc ent differential counts (%) should be interpreted in the context of the absolute cell counts (cells/uL). Performed By: #### 5 7021-8 #### KARUNA VILLANUEVA ([id number]) [facility] ([facility]) [address] [place] [address] 76538 Neutrophils/100 WBC (Bld) 87.6 % Normal 40.0-80.0 [facility] Comment on above: Performed By: #### 5 7021-8 #### KARUNA VILLANUEVA ([id number]) [facility] ([facility]) [address] [place], [place] [phone] Nucleated RBC/100 WBC (Bld) [Ratio] 0.0 /100 WBCs Normal 0.0-0.0 [facility] Comment on above: Performed By: #### 5 7021-8 #### KARUNA VILLANUEVA ([id number]) [facility] ([facility]) [address] [place] [address] 44300 Platelets (Bld) [#/Vol] 127 x10*3/uL Low 150-450 [facility] Comment on above: Performed By: #### 5 7021-8 #### KARUNA VILLANUEVA ([id number]) [facility] ([facility]) [address] [place] [address] 90894 RBC (Bld) [#/Vol] 3.56 x10*6/uL Low 4.00-5.20 [facility] Comment on above: Performed By: #### 5 7021-8 #### KARUNA VILLANUEVA ([id number]) [facility] ([facility]) [address] [place] [address] 13732 WBC (Bld) [#/Vol] 10.3 x10*3/uL Normal 4.4-11.3 [facility] Comment on above: Performed By: #### 5 7021-8 #### KARUNA VILLANUEVA ([id number]) [facility] ([facility]) [address] [place] [address] ABDOMEN PELVIS W IV CONTR Celeste 06-18-2025 CT ABDOMEN PELVIS W IV CONTRAST Interpreted By: Sloan Cardenas, STUDY: CT ABDOMEN PELVIS W IV CONTRAST; 06/18/2025 11:05 pm INDICATION: Signs/Symptoms:pain. COMPARISON: None. ACCESSION NUMBER(S): [id number] ORDERING CLINICIAN: MARIELA SCHULZ TECHNIQUE: Contiguous axial [...] Sloan Cardenas 06/18/2025 11:46 PM Dictation workstation: [id number] [facility] CT Abdomen and Pelvis W cont rast Jeevan 06-18-2025 No acute abnormality within the abdomen or pelvis. MACRO: None. Signed by: Sloan Cardenas 06/18/2025 11:46 PM Dictation workstation: [id number] Interpreted By: Sloan Cardenas, STUDY: CT ABDOMEN PELVIS W IV CONTRAST; 06/18/2025 11:05 pm INDICATION: Signs/Symptoms:pain. COMPARISON: None. ACCESSION NUMBER(S): [id number] ORDERING CLINICIAN: MARIELA SCHULZ TECHNIQUE: Contiguous axial [...] pm INDICATION: Signs/Symptoms:pain. COMPARISON: None. ACCESSION NUMBER(S): [id number] ORDERING CLINICIAN: MARIELA SCHULZ TECHNIQUE: Contiguous axial [...] Sloan Cardenas 06/18/2025 11:46 PM Dictation workstation: [id number] [facility] Work Phone: Radiology Study observation (narrative) [facility] Work Phone: CT Abdomen and Pelvis W cont rast IVOrdered By: Sloan Cardenas on 06-18-2025 [facility] Work Phone: Comprehensive metabolic 2000 panelon 06-18-2025 Albumin BCP dye [Mass/Vol] 4.2 g/dL 3.4 - 5.0 g/dL [facility] ALP [Catalytic activity/Vol] 83 U/L 33 - 110 U/L [facility] ALT With P-5'-P [Catalytic activity/Vol] 41 U/L 7 - 45 U/L [facility] Comment on above: Patients treated wit h Sulfasalazine may generate falsely decreased results for ALT. Anion gap [Moles/Vol] 11 mmol/L 10 - 2 0 mmol/L [facility] AST With P-5'-P [Catalytic activity/Vol] 37 U/L 9 - 39 U/L [facility] Bilirubin [Mass/Vol] 0.4 mg/dL 0.0 - 1 .2 mg/dL [facility] Calcium [Mass/Vol] 9.4 mg/dL 8.6 - 10. 3 mg/dL [facility] Chloride [Moles/Vol] 102 mmol/L 98 - 10 7 mmol/L [facility] CO2 [Moles/Vol] 28 mmol/L 21 - 32 mmol/L [facility] Comment on above: Bicarbonate results may be falsely elevated when Lactate Dehydrogenase (LDH) concentrations exceed 2,000 U/L due to a temporary reagent manufacturing issue. If significantly elevated LDH levels are suspected, interpret bicarbonate results with caution, correlate with the patient s clinical status, and consider confirming CO2 values using a blood gas analyzer. Creatinine [Mass/Vol] 0.70 mg/dL 0.50 - 1.05 mg/dL [facility] eGFR - PINF [facility] Comment on above: Calculations of oskar mated GFR are performed using the 2021 CKD-EPI Study Refit equation without the race variable for the IDMS-Traceable creatinine methods. https://jasn.asnjournals.org/content//ASN.107727 4671 Glucose [Mass/Vol] 125 mg/dL High 74 - 99 mg/dL [facility] Interpretation and review of laboratory results Abnormal [facility] Potassium [Moles/Vol] 3.4 mmol/L Low 3.5 - 5.3 mmol/L [facility] Protein [Mass/Vol] 6.7 g/dL 6.4 - 8.2 g/dL [facility] Sodium [Moles/Vol] 138 mmol/L 136 - 145 mmol/L [facility] Urea nitrogen [Mass/Vol] 13 mg/dL 6 - 23 mg/dL [facility] Albumin BCP dye [Mass/Vol] 4.2 g/dL Normal 3.4-5.0 [facility] Comment on above: Performed By: #### 2 4323-8 #### KARUNA VILLANUEVA ([id number]) [facility] ([facility]) [address] [place] [address] ALP [Catalytic activity/Vol] 83 U/L Normal 33-110 [facility] Comment on above: Performed By: #### 2 4323-8 #### KARUNA VILLANUEVA ([id number]) [facility] ([facility]) [address] [place] [address] 25758 ALT With P-5'-P [Catalytic activity/Vol] 41 U/L Normal 7-45 [facility] Comment on above: Result Comment: Joy ents treated with Sulfasalazine may generate falsely decreased results for ALT. Performed By: #### 2 4323-8 #### KARUNA VILLANUEVA ([id number]) [facility] ([facility]) [address] [place] [address] Anion gap [Moles/Vol] 11 mmol/L Normal 10-20 [facility] Comment on above: Performed By: #### 2 4323-8 #### KARUNA VILLANUEVA ([id number]) [facility] ([facility]) [address] [place] [address] AST With P-5'-P [Catalytic activity/Vol] 37 U/L Normal 9-39 [facility] Comment on above: Performed By: #### 2 4323-8 #### KARUNA VILLANUEVA ([id number]) [facility] ([facility]) [address] [place] [address] 79436 Bilirubin [Mass/Vol] 0.4 mg/dL Normal 0.0-1.2 [facility] Comment on above: Performed By: #### 2 4323-8 #### KARUNA VILLANUEVA ([id number]) [facility] ([facility]) [address] [place] [address] 39385 Calcium [Mass/Vol] 9.4 mg/dL Normal 8.6-10.3 [facility] Comment on above: Performed By: #### 2 4323-8 #### KARUNA VILLANUEVA ([id number]) [facility] ([facility]) [address] [place] [address] 51066 Chloride [Moles/Vol] 102 mmol/L Normal 98-107 [facility] Comment on above: Performed By: #### 2 4323-8 #### KARUNA VILLANUEVA ([id number]) [facility] ([facility]) [address] [place] [address] 79999 CO2 [Moles/Vol] 28 mmol/L Normal 21-32 [facility] Comment on above: Result Comment: Bica rbonate results may be falsely elevated when Lactate Dehydrogenase (LDH) concentrations exceed 2,000 U/L due to a temporary reagent manufacturing issue. If significantly elevated LDH levels are suspected, interpret bicarbonate results with caution, correlate with the patient's clinical status, and consider confirming CO2 values using a blood gas analyzer. Performed By: #### 2 4323-8 #### KARUNA VILLANUEVA ([id number]) [facility] ([facility]) [address] [place] [address] 92665 Creatinine [Mass/Vol] 0.70 mg/dL Normal 0.50-1.05 [facility] Comment on above: Performed By: #### 2 4323-8 #### KARUNA VILLANUEVA ([id number]) [facility] ([facility]) [address] [place] [address] Glomerular filtration rate >90 Normal >60 [facility] Comment on above: Result Comment: Calc ulations of estimated GFR are performed using the 2020 CKD-EPI Study Refit equation without the race variable for the IDMS-Traceable creatinine methods. https://jasn.asnjournals.org/content//ASN.647361 3318 Performed By: #### 2 4323-8 #### KARUNA VILLANUEVA ([id number]) [facility] ([facility]) [address] [place] [address] 10628 Glucose [Mass/Vol] 125 mg/dL High 74-99 [facility] Comment on above: Performed By: #### 2 432-8 #### KARUNA VILLANUEVA ([id number]) [facility] ([facility]) [address] [place] [address] 90172 Potassium [Moles/Vol] 3.4 mmol/L Low 3.5-5.3 [facility] Comment on above: Performed By: #### 2 4323-8 #### KARUNA VILLANUEVA ([id number]) [facility] ([facility]) [address] [place] [address] 00222 Protein [Mass/Vol] 6.7 g/dL Normal 6.4-8.2 [facility] Comment on above: Performed By: #### 2 4323-8 #### KARUNA VILLANUEVA ([id number]) [facility] ([facility]) [facility] [place] [address] Sodium [Moles/Vol] 138 mmol/L Normal 136-145 [facility] Comment on above: Performed By: #### 2 4323-8 #### KARUNA VILLANUEVA ([id number]) [facility] ([facility]) [address] [place] [address] 88442 Urea nitrogen [Mass/Vol] 13 mg/dL Normal 6-23 [facility] Comment on above: Performed By: #### 2 4323-8 #### KARUNA VILLANUEVA ([id number]) [facility] ([facility]) [facility] [place] [address] ECG 12-LEADon 06-18-2025 ECG 12-LEAD Ventricular Rate 115 Atrial Rate 115 P-R Interval 130 QRS Duration 74 Q-T Interval 298 QTC Calculation(Bazett) 412 P [place] 58 R [place] 28 T [place] 20 QRS Count 19 Q Onset 220 P Onset 155 P Offset 204 T Offset 369 QTC Fredericia 370 Diagnosis Sinus tachycardia Otherwise normal ECG When compared with ECG of 22-MAY-2024 21:46, T wave inversion no longer evident in Lateral leads See ED provider note for full interpretation and clinical correlation Confirmed by Candice Maria ([id number]) on 06/19/2025 1:39:26 PM Normal [facility] Lactateon 06-18-2025 Lactate [Moles/Vol] 1.2 mmol/L 0.4 - 2. 0 mmol/L [facility] Lactate [Moles/Vol] 1.2 mmol/L Normal 0.4-2.0 [facility] Comment on above: Order Comment: Venip uncture immediately after or during the administration of Metamizole may lead to falsely low results. Testing should be performed immediately prior to Metamizole dosing. Performed By: #### 2 524-7 #### KARUNA VILLANUEVA ([id number]) [facility] ([facility]) [address] [place] [address] 45431 Lactate [Moles/Vol]on 2024 Interpretation and review of laboratory results Normal [facility] Venipuncture immedia tely after or during the administration of Metamizole may lead to falsely low results. Testing should be performed immediately prior to Metamizole dosing. [facility] Magnesiumon 06-18-2025 Magnesium [Mass/Vol] 1.42 mg/dL Low 1.60 - 2.40 mg/dL [facility] Magnesium [Mass/Vol] 1.42 mg/dL Low 1.60-2.40 [facility] Comment on above: Performed By: #### 1 9123-9 #### KARUNA VILLANUEVA ([id number]) [facility] ([facility]) [address] [place] [address] Magnesium [Mass/Vol]on 06-18 Interpretation and review of laboratory results Abnormal [facility] Urinalysis complete W Reflex Culture panel (U)on 06-18-2025 Appearance (U) Clear Clear [facility] Bilirubin (U) [Mass/Vol] Negative NEGATIVE mg/dL [facility] Color (U) Light-Yellow Light-Yellow , Yellow, Dark-Yellow [facility] Glucose Auto test strip (U) [Mass/Vol] Normal Normal mg/dL [facility] Interpretation and review of laboratory results Abnormal [facility] Ketones (U) [Mass/Vol] Negative NEGATIVE mg/dL [facility] Leukocyte esterase Auto test strip Ql (U) Negative NEGATIVE [facility] Nitrite Auto test strip Ql (U) Negative NEGATIVE [facility] pH (U) 6.0 [pH] 5.0, 5.5, 6.0, 6.5, 7.0, 7.5, 8.0 [facility] Protein (U) [Mass/Vol] Negative NEGATIVE, 10 (TRACE), 20 (TRACE) mg/dL [facility] RBC (U) [#/Vol] Negative NEGATIVE mg/dL [facility] Specific gravity (U) [Rel density] 1.038 Abnormal 1.005 - 1.035 [facility] Urobilinogen (U) [Mass/Vol] Normal Normal mg/dL [facility] Appearance (U) Clear Normal Clear [facility] Comment on above: Performed By: #### 5 8077-9 #### KARUNA VILLANUEVA ([id number]) [facility] ([facility]) [facility] [place] [address] Bilirubin (U) [Mass/Vol] Negative Normal NEGATIVE [facility] Comment on above: Performed By: #### 5 8077-9 #### KARUNA VILLANUEVA ([id number]) [facility] ([facility]) [facility] [place] [address] Color (U) Light-Yellow Normal Light-Yellow , Yellow, Dark-Yellow [facility] Comment on above: Performed By: #### 5 8077-9 #### KARUNA VILLANUEVA ([id number]) [facility] ([facility]) [address] [place] [address] 44980 Glucose Auto test strip (U) [Mass/Vol] Normal Normal Normal [facility] Comment on above: Performed By: #### 5 8077-9 #### KARUNA VILLANUEVA ([id number]) [facility] ([facility]) [address] [place] [address] 86972 Ketones (U) [Mass/Vol] Negative Normal NEGATIVE [facility] Comment on above: Performed By: #### 5 8077-9 #### KARUNA VILLANUEVA ([id number]) [facility] ([facility]) [address] [place] [address] 40103 Leukocyte esterase Auto test strip Ql (U) Negative Normal NEGATIVE [facility] Comment on above: Performed By: #### 5 8077-9 #### KARUNA VILLANUEVA ([id number]) [facility] ([facility]) [address] [place], [place] [address] Nitrite Auto test strip Ql (U) Negative Normal NEGATIVE [facility] Comment on above: Performed By: #### 5 8077-9 #### KARUNA VILLANUEVA ([id number]) [facility] ([facility]) [address] [place] [address] 16364 pH (U) 6.0 [pH] Normal 5.0, 5.5, 6.0, 6.5, 7.0, 7.5, 8.0 [facility] Comment on above: Performed By: #### 5 8077-9 #### KARUNA VILLANUEVA ([id number]) [facility] ([facility]) [address] [place] [address] 40438 Protein (U) [Mass/Vol] Negative Normal NEGATIVE, 10 (TRACE), 20 (TRACE) [facility] Comment on above: Performed By: #### 5 8077-9 #### KARUNA VILLANUEVA ([id number]) [facility] ([facility]) [address] [place] [address] 47660 RBC (U) [#/Vol] Negative Normal NEGATIVE [facility] Comment on above: Performed By: #### 5 8077-9 #### KARUNA VILLANUEVA ([id number]) [facility] ([facility]) [address] [place], [place] [address] Specific gravity (U) [Rel density] 1.038 Normal 1.005-1.035 [facility] Comment on above: Performed By: #### 5 8077-9 #### KARUNA VILLANUEVA ([id number]) [facility] ([facility]) [address] [place], [place] [address] Urobilinogen (U) [Mass/Vol] Normal Normal Normal [facility] Comment on above: Performed By: #### 5 8077-9 #### KARUNA VILLANUEVA ([id number]) [facility] ([facility]) [address] [place] [address] XR CHEST 1 VIEWon 06-18-2025 XR CHEST 1 VIEW Interpreted By: Astrid Meng, STUDY: XR CHEST 1 VIEW; 06/18/2025 11:57 pm INDICATION: Signs/Symptoms:pneumonia. COMPARISON: 05/22/2024 ACCESSION NUMBER(S): [id number] ORDERING CLINICIAN: MARIELA SCHULZ FINDINGS: AP radiograph [...] Astrid Zaidi 06/19/2025 12:33 AM Dictation workstation: [id number] Normal [facility] XR Chest Single viewon 06-18 Radiology Study observation (narrative) [facility] Work Phone: Plastic Surgery Visit Report on 06-15-2025 Plastic Surgery Visit Report [facility] [address] [place] [address] OFFICE VISIT Date of Service: 06/15/25 MR#: [id number] Acct: [id number] Name: SHAUNA RAINEY Rep #: [id number] : 1995 Provider: Dr. 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 There were no abnormal or large left [...] Surgery: Onl (more content not included)... Normal [facility] Surgery Visit Reporton 06-08 Surgery Visit Report [facility] [address] [place] [address] OFFICE VISIT Date of Service: 06/08/25 MR#: [id number] Acct: [id number] Name: SHAUNA RAINEY Rep #: [id number] : 1995 Provider: Dr. Tamiko aguero MD Age/Sex: 29/F Location: [facility] Status: Signed Intake Vital Signs 05/30/25 09:13 [...] August 08 and he will be at [facility] and she will plan to do follow-up appointments with him up at [facility]. ROS General General: Yes weight change, fatigue [...] Neuro Ge (more content not included)... Normal [facility] Absolute lymphocyte countOrd ered By: Ara Franklin on 06-07-2025 Lymphocytes Auto (Unsp spec) [#/Vol] 1.59 10*3/uL 0.83-4.51 [facility] Absolute neutrophil countOrd ered By: Ara Franklin on 06-07-2025 Neutrophils (Bld) [#/Vol] 3.6 10*3/uL 2.0-7.7 [facility] Anion gap in Serum or Plasma Ordered By: Ara Franklin on 06-07-2025 Anion gap [Moles/Vol] 11 mmol/L 5-15 [facility] BUN/creatinine ratioOrdered By: Ara Franklin on 06-07-2025 Urea nitrogen/Creatinine [Mass ratio] 11.7 mg/mg 10- [facility] Bilirubin, totalOrdered By: Ara Franklin on 06-07-2025 Bilirubin [Mass/Vol] 0.20 mg/dL 0.00-1.30 [facility] Blood band neutrophil count as percentage of total leukocytesOrdered By: Ara Franklin on 06-07-2025 Band form neutrophils/100 WBC (Bld) 19 % High 0-5 [facility] Blood lymphocytes/100 leukoc ytesOrdered By: Ara Franklin on 06-07-2025 Lymphocytes/100 WBC (Bld) 26 % 19-41 [facility] Blood metamyelocytes/100 ruddy kocytesOrdered By: [facility] on 06-07-2025 Metamyelocytes/100 WBC (Bld) 1 % 0-1 [facility] Blood monocytes/100 leukocyt esOrdered By: [facility] Rigoberto on 06-07-2025 Monocytes/100 WBC (Bld) 11 % High 0-10 [facility] Blood polychromasia detectio n by light microscopyOrdered By: [facility] on 06-07-2025 Polychromasia LM Ql (Bld) 1+ [facility] Blood segmented neutrophils/ 100 leukocytesOrdered By: [facility] on 06-07-2025 Segmented neutrophils/100 WBC (Bld) 40 % Low 47-70 [facility] CBC W/Diff, Automatedon 05-11 PATH REV Reviewed Normal [facility] Comment on above: Result Comment: ADEQ AUTE LEUKOCYTES WITH LEFT SHIFT OF THE GRANULOCYTES AND TOXIC CHANGES. NORMOCYTIC NORMOCHROMIC ANEMIA WITH MILD ANISOCYTOSIS, 1+ OVALOCYTES, AND RARE SCHISTOCYTES. ADEQAUTE PLATELETS. Corrine Ramos MD 06/07/2025 AMENDED REPORT 06/07/25 1209 PATH REV previously reported as: December meme Performed By: #### L 501.2300 #### [facility] [address] [place], [address] Carbon dioxide, total [Moles /volume] in Central venous bloodOrdered By: Ara Franklin on 06-07-2025 CO2 [Moles/Vol] 25.7 mmol/L 21.0-32.0 [facility] Chloride assayOrdered By: Huong Franklin on 06-07-2025 Chloride [Moles/Vol] 106 mmol/L 98-108 [facility] Comprehensive Metabolic Prof ilon 06-07-2025 Albumin [Mass/Vol] 3.9 g/dL Normal 3.5-5.0 [facility] Comment on above: Performed By: #### L 501.2300 #### [facility] [address] [place], [address] Albumin/Globulin [Mass ratio] 1.5 {ratio} Normal 0.9-2.4 [facility] Comment on above: Performed By: #### L 501.2300 #### [facility] [address] [place], [address] ALK PHOS 81 U/L Normal 35-104 [facility] Comment on above: Performed By: #### L 501.2300 #### [facility] [address] [place], [address] ALT [Catalytic activity/Vol] 24 U/L Normal <=34 [facility] Comment on above: Performed By: #### L 501.2300 #### [facility] [address] [place], [address] AST [Catalytic activity/Vol] 17 U/L Normal <=31 [facility] Comment on above: Performed By: #### L 501.2300 #### [facility] [address] [place], [address] Bilirubin [Mass/Vol] 0.20 mg/dL Normal 0.00-1.30 [facility] Comment on above: Performed By: #### L 501.2300 #### [facility] [address] [place], [address] BUN/CRE 11.7 RATIO Normal 10-20 [facility] Comment on above: Performed By: #### L 501.2300 #### [facility] [address] [place], [address] Calcium [Mass/Vol] 9.1 mg/dL Normal 7.6-11.0 [facility] Comment on above: Performed By: #### L 501.2300 #### [facility] [address] [place], [address] Chloride [Moles/Vol] 106 mmol/L Normal 98-108 [facility] Comment on above: Performed By: #### L 501.2300 #### [facility] [address] [place], [address] CO2 [Moles/Vol] 25.7 mmol/L Normal 21.0-32.0 [facility] Comment on above: Performed By: #### L 501.2300 #### [facility] [address] [place], [address] Creatinine [Mass/Vol] 0.60 mg/dL Low 0.70-1.20 [facility] Comment on above: Performed By: #### L 501.2300 #### [facility] [address] [place], [address] ECRCL 125.33 ml/min Normal 50-250 [facility] Comment on above: Performed By: #### L 501.2300 #### [facility] [address] [place], [address] GAP 11 Normal 5-15 [facility] Comment on above: Performed By: #### L 501.2300 #### [facility] [address] [place], [address] GFR/1.73 sq M.predicted among non-blacks MDRD (S/P/Bld) [Vol rate/Area] 125 mL/min/{1.73_m2} Normal >60 [facility] Comment on above: Result Comment: mL/m in/1.73m2 CKD-EPI Creatinine Equation (2020) Performed By: #### L 501.2300 #### [facility] [address] [place], [address] Globulin (S) [Mass/Vol] 2.7 g/dL Normal 2.2-4.2 [facility] Comment on above: Performed By: #### L 501.2300 #### [facility] [address] [place], [address] Glucose [Mass/Vol] 94 mg/dL Normal 70-99 [facility] Comment on above: Performed By: #### L 501.2300 #### [facility] [address] [place], [address] Potassium [Moles/Vol] 3.4 mmol/L Normal 3.3-5.1 [facility] Comment on above: Performed By: #### L 501.2300 #### [facility] [address] [place], [address] Sodium [Moles/Vol] 142 mmol/L Normal 133-145 [facility] Comment on above: Performed By: #### L 501.2300 #### [facility] [address] [place], [address] T PROT 6.6 g/dL Normal 5.9-8.4 [facility] Comment on above: Performed By: #### L 501.2300 #### [facility] [address] [place], [address] Urea nitrogen [Mass/Vol] 7 mg/dL Normal 4-19 [facility] Comment on above: Performed By: #### L 501.2300 #### [facility] [address] [place], [address] Erythrocyte distribution wid th ratioOrdered By: Ara Franklin on 06-07-2025 Erythrocyte distribution width (RBC) [Ratio] 16.6 % High 11.6-14.6 [facility] Erythrocyte distribution wid th standard deviationOrdered By: Ara Franklin on 06-07-2025 Erythrocyte distribution width (RBC) [Ratio] 58.4 fl High 35.1-43.9 [facility] Erythrocyte morphology asses smentOrdered By: [facility] on 06-07-2025 RBC morphology finding Nom (Bld) N CYTIC NORMAL NORM C&C [facility] Glomerular filtration rate ( GFR) estimation/1.73 sq m using serum, plasma, or whole bOrdered By: [facility] Franklin on 06-07-2025 GFR/1.73 sq M.predicted among non-blacks MDRD (S/P/Bld) [Vol rate/Area] 125 mL/min/{1.73_m2} >60 [facility] Comment on above: mL/min/1.73m2 CKD-EP I Creatinine Equation (2020) Hematocrit Auto (Bld) [Volum e fraction]Ordered By: Ara Franklin on 06-07-2025 Hematocrit (Bld) [Volume fraction] 32.3 % Low 37-47 [facility] Hemoglobin measurementOrdere d By: [facility] Franklin on 06-07-2025 Hemoglobin (Bld) [Mass/Vol] 10.8 g/dL Low 12.0-15.0 [facility] - Chemistry and C hemistry - challengeOrdered By: [facility] on 06-07-2025 AST [Catalytic activity/Vol] 17 U/L <32 [facility] MCV (mean corpuscular volume ) determinationOrdered By: [facility] on 06-07-2025 MCV (RBC) [Entitic vol] 95.8 fL 81-99 [facility] Magnesiumon 06-07-2025 Magnesium [Mass/Vol] 1.7 mg/dL Normal 1.5-2.2 [facility] Comment on above: Performed By: #### L 309.9630 #### [facility] [address] [place], [address] Magnesium measurement (mass/ volume)Ordered By: Ara Franklin on 06-07-2025 Magnesium (Unsp spec) [Mass/Vol] 1.7 mg/dL 1.5-2.2 [facility] Mean corpuscular hemoglobin (MCH) determinationOrdered By: Ara Franklin on 06-07-2025 MCH (RBC) [Entitic mass] 32.0 pg 27.0-32.0 [facility] Mean corpuscular hemoglobin concentration (MCHC) determinationOrdered By: Ara Franklin on 06-07-2025 MCHC (RBC) [Mass/Vol] 33.4 g/dL 32-36 [facility] Mean platelet volume determi nationOrdered By: Ara Franklin on 06-07-2025 Platelet mean volume (Bld) [Entitic vol] 10.0 fL 6.2-12.0 [facility] Myelocyte %Ordered By: Manda Franklin on 06-07-2025 Myelocytes/100 WBC (Bld) 3 % High 0-0 [facility] Oncology Visit Reporton 05-11 Oncology Visit Report [facility] [place] [facility] [address] [place] [address] OFFICE VISIT Date of Service: 06/07/2522 MR#: [id number] Acct: [id number] Name: SHAUNA RAINEY Rep #: [id number] : 1995 From: Sheila Eubanks NP, NP -C Age/Sex: 29/F Location: [facility] Status: Signed HPI Subjective Date of [...] 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 January 25, [...] the left side. Treatment summary and response: [facility] March 07, 2025 Interval History The [...] abd pain, swelling of her extremities, numbness/tingling. [facility] Medical History (Updated 06/07/25 @ 10:[address] LIAISON, COURT LIAISON-C) Mucositis Sore throat Cough Encounter for antineoplastic [...] 98 Oxygen Delivery Method room air Intake Slackman Required: No Accompanied by: Self Is patient [...] PRN Port (more content not included)... Normal [facility] Platelet countOrdered By: Huong Franklin on 06-07-2025 Platelets (Bld) [#/Vol] 174 10*3/uL 150-450 [facility] Platelet estimateOrdered By: Ara Franklin on 06-07-2025 Platelets LM Ql (Bld) ADEQUATE ADEQ [facility] Potassium measurement (mass/ volume)Ordered By: Ara Franklin on 06-07-2025 Potassium (Unsp spec) [Mass/Vol] 3.4 mmol/L 3.3-5.1 [facility] RBC Auto (Bld) [#/Vol]Ordere d By: Ara Franklin on 06-07-2025 RBC (Bld) [#/Vol] 3.37 10*6/uL Low 4.2-5.4 [facility] Review by pathologistOrdered By: Ara Franklin on 06-07-2025 Pathologist review Rohit (Unsp spec) [Interp] Reviewed [facility] Comment on above: Previous reported re sult: [...] 06-07-2025 Creatinine [Mass/Vol] 0.60 mg/dL Low 0.70-1.20 [facility] Serum globulin measurementOr dered By: Ara Franklin on 06-07-2025 Globulin (S) [Mass/Vol] 2.7 g/dL 2.2-4.2 [facility] Serum glucose measurement (m ass/volume)Ordered By: Ara Franklin on 06-07-2025 Glucose [Mass/Vol] 94 mg/dL 70-99 [facility] Serum or plasma alanine mcdonald otransferase (ALT) measurementOrdered By: Ara Franklin on 06-07-2025 ALT [Catalytic activity/Vol] 24 U/L <35 [facility] Serum or plasma albumin ernestine urement (mass/volume)Ordered By: Ara Franklin on 06-07-2025 Albumin [Mass/Vol] 3.9 g/dL 3.5-5.0 [facility] Serum or plasma albumin/glob ulin mass ratioOrdered By: Ara Franklin on 06-07-2025 Albumin/Globulin [Mass ratio] 1.5 {ratio} 0.9-2.4 [facility] Serum or plasma alkaline chuckie sphatase measurementOrdered By: Ara Franklin on 06-07-2025 ALP [Catalytic activity/Vol] 81 U/L 35-104 [facility] Serum or plasma calcium ernestine urement (mass/volume)Ordered By: Ara Franklin on 06-07-2025 Calcium [Mass/Vol] 9.1 mg/dL 7.6-11.0 [facility] Serum or plasma urea nitroge n measurement (mass/volume)Ordered By: Ara Franklin on 06-07-2025 Urea nitrogen [Mass/Vol] 7 mg/dL 4-19 [facility] Sodium levelOrdered By: Marlys Franklin on 06-07-2025 Sodium [Moles/Vol] 142 mmol/L 133-145 [facility] Total cell countOrdered By: Ara Franklin on 06-07-2025 Cells counted Molgen (Bld/Tiss) [#] 100 MANUAL DIFF [facility] Total proteinOrdered By: Andrés Franklin on 06-07-2025 Protein [Mass/Vol] 6.6 g/dL 5.9-8.4 [facility] White blood cell (WBC) count Ordered By: Ara Franklin on 06-07-2025 WBC (Bld) [#/Vol] 6.1 10*3/uL 4.4-11.0 [facility] ONC Echo, Limited Studyon ONC Echo, Limited Study [facility] [address] [place] [address] ONC Echo, Limited Study 05/31/25 1352 MR#: [id number] Acct: [id number] Name: SHAUNA RAINEY Rep #: [id number] : 1995 29 From: Jayjay Mccabe MD Attending Dr: ROBERT Lamb Status: REG CLI Ordering Dr: Sheila Eubanks NP COURT LIAISON-C Date: 05/31/25 Location: [facility] Sex: F C Admitted: Reason For Study Reason For Study: [employer] Operator Drug Use Procedure This was a limited [...] Date Dictated: 05/31/25 1352 Date Transcribed: 05/31/251814 Build Engineer: Signed Normal [facility] Automated lymphocyte count a s percentage of total leukocytesOrdered By: Ara Franklin on 05-30-2025 Lymphocytes/100 WBC Auto (Unsp spec) 11.1 % Low 19-41 [facility] Basophil percentageOrdered B y: Ara Franklin on 05-30-2025 Basophils/100 WBC (Bld) 0.1 % 0-1 [facility] CBC W/Diff, Automatedon 05-10 Absolute Lymph 0.81 X10 3/uL Low 0.83-4.51 [facility] Comment on above: Performed By: #### L 501.8693 #### [facility] [address], [address] Absolute Neut 6.2 X10 3/uL Normal 2.0-7.7 [facility] Comment on above: Performed By: #### L 501.2300 #### [facility] [address] [place], [address] Basophils/100 WBC (Bld) 0.1 % Normal 0-1 [facility] Comment on above: Performed By: #### L 501.2300 #### [facility] [address] [place], [address] Eosinophils/100 WBC (Bld) 0.0 % Normal 0-5 [facility] Comment on above: Performed By: #### L 501.2300 #### [facility] [address] [place], [address] Erythrocyte distribution width (RBC) [Ratio] 17.6 % High 11.6-14.6 [facility] Comment on above: Performed By: #### L 501.2300 #### [facility] [address] [place], [address] Hematocrit (Bld) [Volume fraction] 34.5 % Low 37-47 [facility] Comment on above: Performed By: #### L 501.2300 #### [facility] [address] [place], [address] Hemoglobin (Bld) [Mass/Vol] 11.6 g/dL Low 12.0-15.0 [facility] Comment on above: Performed By: #### L 501.2300 #### [facility] [address] [place], [address] IG% 0.400 Normal 0.0-0.9 [facility] Comment on above: Result Comment: IG% - Immature Granulocytes (promyelocytes, myelocytes and metamyelocytes) > 1% indicates that a LEFT SHIFT is Present. Performed By: #### L 501.2300 #### [facility] [address] [place], [address] Lymphocytes/100 WBC (Bld) 11.1 % Low 19-41 [facility] Comment on above: Performed By: #### L 501.2300 #### [facility] [address] [place], [address] MCH (RBC) [Entitic mass] 31.7 pg Normal 27.0-32.0 [facility] Comment on above: Performed By: #### L 501.2300 #### [facility] [address] [place], [address] MCHC (RBC) [Mass/Vol] 33.6 g/dL Normal 32-36 [facility] Comment on above: Performed By: #### L 501.2300 #### [facility] [address] [place], [address] MCV (RBC) [Entitic vol] 94.3 fL Normal 81-99 [facility] Comment on above: Performed By: #### L 501.2300 #### [facility] [address] [place], [address] Monocytes/100 WBC (Bld) 2.9 % Normal 0-10 [facility] Comment on above: Performed By: #### L 501.2300 #### [facility] [address] [place], [address] Neutrophils/100 WBC (Bld) 85.5 % High 47-70 [facility] Comment on above: Performed By: #### L 501.2300 #### [facility] [address] [place], [address] Nucleated RBC (Bld) [#/Vol] 0 10*3/uL Normal 0-5 [facility] Comment on above: Performed By: #### L 501.2300 #### [facility] [address] [place], [address] Platelet mean volume (Bld) [Entitic vol] 9.2 fL Normal 6.2-12.0 [facility] Comment on above: Performed By: #### L 501.2300 #### [facility] [address] [place], [address] Platelets (Bld) [#/Vol] 195 10*3/uL Normal 150-450 [facility] Comment on above: Performed By: #### L 501.2300 #### [facility] [address] [place], [address] RBC (Bld) [#/Vol] 3.66 10*6/uL Low 4.2-5.4 [facility] Comment on above: Performed By: #### L 501.2300 #### [facility] [address] [place], [address] RDW SD 61.2 fl High 35.1-43.9 [facility] Comment on above: Performed By: #### L 501.2300 #### [facility] [address] [place], [address] WBC (Bld) [#/Vol] 7.3 10*3/uL Normal 4.4-11.0 [facility] Comment on above: Performed By: #### L 501.2300 #### [facility] [address] [place], [address] Comprehensive Metabolic Prof [facility] 05-30-2025 Albumin [Mass/Vol] 4.0 g/dL Normal 3.5-5.0 [facility] Comment on above: Performed By: #### L 501.2300 #### [facility] [address] [place], [address] Albumin/Globulin [Mass ratio] 1.4 {ratio} Normal 0.9-2.4 [facility] Comment on above: Performed By: #### L 501.2300 #### [facility] [address] [place], [address] ALK PHOS 82 U/L Normal 35-104 [facility] Comment on above: Performed By: #### L 501.2300 #### [facility] [address] [place], [address] ALT [Catalytic activity/Vol] 36 U/L High <=34 [facility] Comment on above: Performed By: #### L 501.2300 #### [facility] [address] [place], [address] AST [Catalytic activity/Vol] 18 U/L Normal <=31 [facility] Comment on above: Performed By: #### L 501.2300 #### [facility] [address] [place], [address] Bilirubin [Mass/Vol] 0.30 mg/dL Normal 0.00-1.30 [facility] Comment on above: Performed By: #### L 501.0 #### [facility] [address] [place], [address] BUN/CRE 22.3 RATIO High 10-20 [facility] Comment on above: Performed By: #### L 501.2300 #### [facility] [address] [place], [address] Calcium [Mass/Vol] 9.6 mg/dL Normal 7.6-11.0 [facility] Comment on above: Performed By: #### L 501.2300 #### [facility] [address] [place], [address] Chloride [Moles/Vol] 103 mmol/L Normal 98-108 [facility] Comment on above: Performed By: #### L 501.2300 #### [facility] [address] [place], [address] CO2 [Moles/Vol] 23.7 mmol/L Normal 21.0-32.0 [facility] Comment on above: Performed By: #### L 501.2300 #### [facility] [address] [place], [address] Creatinine [Mass/Vol] 0.52 mg/dL Low 0.70-1.20 [facility] Comment on above: Performed By: #### L 501.2300 #### [facility] [address] [place], [address] ECRCL 146.12 ml/min Normal 50-250 [facility] Comment on above: Performed By: #### L 501.2300 #### [facility] [address] [place], [address] GAP 13 Normal 5-15 [facility] Comment on above: Performed By: #### L 501.2300 #### [facility] [address] [place], [address] GFR/1.73 sq M.predicted among non-blacks MDRD (S/P/Bld) [Vol rate/Area] 130 mL/min/{1.73_m2} Normal >60 [facility] Comment on above: Result Comment: mL/m in/1.73m2 CKD-EPI Creatinine Equation (2020) Performed By: #### L 501.2300 #### [facility] [address] [place], [address] Globulin (S) [Mass/Vol] 2.9 g/dL Normal 2.2-4.2 [facility] Comment on above: Performed By: #### L 501.2300 #### [facility] [address] [place], [address] Glucose [Mass/Vol] 158 mg/dL High 70-99 [facility] Comment on above: Performed By: #### L 501.2300 #### [facility] [address] [place], [address] Potassium [Moles/Vol] 4.0 mmol/L Normal 3.3-5.1 [facility] Comment on above: Performed By: #### L 501.2300 #### [facility] [address] [place], [address] Sodium [Moles/Vol] 139 mmol/L Normal 133-145 [facility] Comment on above: Performed By: #### L 501.2300 #### [facility] [address] [place], [address] T PROT 7.0 g/dL Normal 5.9-8.4 [facility] Comment on above: Performed By: #### L 501.2300 #### [facility] [address] [place], [address] Urea nitrogen [Mass/Vol] 12 mg/dL Normal 4-19 [facility] Comment on above: Performed By: #### L 501.2300 #### [facility] [address] [place], [address] Eosinophil percentageOrdered By: Ara Franklin on 05-30-2025 Eosinophils/100 WBC (Bld) 0.0 % 0-5 [facility] Immature granulocytes/100 WB C Auto (Bld)Ordered By: Ara Franklin on 05-30-2025 Immature granulocytes/100 WBC (Bld) 0.400 % 0.0-0.9 [facility] Comment on above: IG% - Immature Granu locytes (promyelocytes, myelocytes and metamyelocytes) > 1% indicates that a LEFT SHIFT is Present. Magnesiumon 05-30-2025 Magnesium [Mass/Vol] 1.9 mg/dL Normal 1.5-2.2 [facility] Comment on above: Performed By: #### L 501.2300 #### [facility] [address] [place], [address] Monocyte percentageOrdered B y: Ara Franklin on 05-30-2025 Monocytes/100 WBC (Bld) 2.9 % 0-10 [facility] Nucleated red blood cell per centageOrdered By: Ara Franklin on 05-30-2025 Nucleated RBC/100 WBC (Bld) [Ratio] 0 % 0-5 [facility] Oncology Visit Reporton 05-10 Oncology Visit Report [facility] [place] [address] OFFICE VISIT Date of Service: 05/30/25 0909 MR#: [id number] Acct: [id number] Name: SHAUNA RAINEY Rep #: [id number] : 1995 From: Ara Franklin MD Age/Sex: 29/F Location: [facility] Status: Signed HPI Subjective Date of [...] 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 January 25, [...] the left side. Treatment summary and response: [facility] March 07, 2025 [facility] Medical History Encounter for antineoplastic chemotherapy and [...] Denies lymphadenopa (more content not included)... Normal [facility] ,Urineon 05-30-2025 Beta HCG ( test) Ql (U) Negative Normal [facility] Comment on above: Order Comment: Result Comment: Very dilute urine specimens, as indicated by a low specific gravity, may not contain medical detail representative levels of hCG. If is still suspected, a first morning urine specimen should be collected 48 hours later and tested. Performed By: #### L 400.7600 ####[facility] [id number] [place], [place], [id number] Urine testOrdered By: Sheila Eubanks on 05-30-2025 HCG ( test) Ql (U) Negative [facility] Comment on above: Very dilute urine sp ecimens, as indicated by a low specificgravity, may not contain medical detail representative levels of hCG. If is still suspected, a first morning urinespecimen should be collected 48 hours later and tested. Absolute lymphocyte countOrd ered By: Ara Franklin on 05-09-2025 Lymphocytes Auto (Unsp spec) [#/Vol] 1.07 10*3/uL 0.83-4.51 [facility] Absolute neutrophil countOrd ered By: Ara Franklin on 05-09-2025 Neutrophils (Bld) [#/Vol] 5.3 10*3/uL 2.0-7.7 [facility] Anion gap in Serum or Plasma Ordered By: Ara Franklin on 05-09-2025 Anion gap [Moles/Vol] 12 mmol/L 5-15 [facility] Automated lymphocyte count a s percentage of total leukocytesOrdered By: Ara Franklin on 05-09-2025 Lymphocytes/100 WBC Auto (Unsp spec) 16.2 % Low 19-41 [facility] BUN/creatinine ratioOrdered By: Ara Franklin on 05-09-2025 Urea nitrogen/Creatinine [Mass ratio] 30.1 mg/mg High 10-20 [facility] Basophil percentageOrdered B y: Ara Franklin on 05-09-2025 Basophils/100 WBC (Bld) 0.2 % 0-1 [facility] Bilirubin, totalOrdered By: Ara Franklin on 05-09-2025 Bilirubin [Mass/Vol] 0.24 mg/dL Normal 0.00-1.30 [facility] Comment on above: Performed By: #### L 501.2300 #### [facility] [address] [place], [address] CBC W/Diff, Automatedon 10-0 Absolute Lymph 1.07 X10 3/uL Normal 0.83-4.51 [facility] Comment on above: Performed By: #### L 501.2300 #### [facility] [address] [place], [address] Absolute Neut 5.3 X10 3/uL Normal 2.0-7.7 [facility] Comment on above: Performed By: #### L [id number] #### [facility] [address] [place], [address] Basophils/100 WBC (Bld) 0.2 % Normal 0-1 [facility] Comment on above: Performed By: #### L [id number] #### [facility] [address] [place], [address] Eosinophils/100 WBC (Bld) 0.0 % Normal 0-5 [facility] Comment on above: Performed By: #### L [id number] #### [facility] [address] [place], [address] Erythrocyte distribution width (RBC) [Ratio] 17.1 % High 11.6-14.6 [facility] Comment on above: Performed By: #### L [id number] #### [facility] [address] [place], [address] Hematocrit (Bld) [Volume fraction] 36.8 % Low 37-47 [facility] Comment on above: Performed By: #### L [id number] #### [facility] [address] [place], [address] Hemoglobin (Bld) [Mass/Vol] 12.3 g/dL Normal 12.0-15.0 [facility] Comment on above: Performed By: #### L [id number] #### [facility] [address] [place], [address] IG% 0.500 Normal 0.0-0.9 [facility] Comment on above: Result Comment: IG% - Immature Granulocytes (promyelocytes, myelocytes and metamyelocytes) > 1% indicates that a LEFT SHIFT is Present. Performed By: #### L [id number] #### [facility] [address] [place], [address] Lymphocytes/100 WBC (Bld) 16.2 % Low 19-41 [facility] Comment on above: Performed By: #### L 501.2300 #### [facility] [address] [place], [address] MCH (RBC) [Entitic mass] 30.4 pg Normal 27.0-32.0 [facility] Comment on above: Performed By: #### [id number] #### [facility] [address] [place], [address] MCHC (RBC) [Mass/Vol] 33.4 g/dL Normal 32-36 [facility] Comment on above: Performed By: #### [id number] #### [facility] [address] [place], [address] MCV (RBC) [Entitic vol] 90.9 fL Normal 81-99 [facility] Comment on above: Performed By: #### L [id number] #### [facility] [address] [place], [address] Monocytes/100 WBC (Bld) 2.6 % Normal 0-10 [facility] Comment on above: Performed By: #### L 501.2300 #### [facility] [address] [place], [address] Neutrophils/100 WBC (Bld) 80.5 % High 47-70 [facility] Comment on above: Performed By: #### L [id number] #### [facility] [address] [place], [address] Nucleated RBC (Bld) [#/Vol] 0 10*3/uL Normal 0-5 [facility] Comment on above: Performed By: #### L 501.2300 #### [facility] [address] [place], [address] Platelet mean volume (Bld) [Entitic vol] 8.9 fL Normal 6.2-12.0 [facility] Comment on above: Performed By: #### L 501.2300 #### [facility] [address] [place], [address] Platelets (Bld) [#/Vol] 210 10*3/uL Normal 150-450 [facility] Comment on above: Performed By: #### L [id number] #### [facility] [address] [place], [address] RBC (Bld) [#/Vol] 4.05 10*6/uL Low 4.2-5.4 [facility] Comment on above: Performed By: #### L [id number] #### [facility] [address] [place], [address] RDW SD 56.4 fl High 35.1-43.9 [facility] Comment on above: Performed By: #### L [id number] #### [facility] [address] [place], [address] WBC (Bld) [#/Vol] 6.6 10*3/uL Normal 4.4-11.0 [facility] Comment on above: Performed By: #### L [id number] #### [facility] [address] [place], [address] Carbon dioxide, total [Moles /volume] in Central venous bloodOrdered By: Ara Franklin on 05-09-2025 CO2 [Moles/Vol] 21.4 mmol/L Normal 21.0-32.0 [facility] Comment on above: Performed By: #### L 501.2300 #### [facility] [address] [place], [address] Chloride assayOrdered By: Huong Franklin on 05-09-2025 Chloride [Moles/Vol] 104 mmol/L Normal 98-108 [facility] Comment on above: Performed By: #### L 501.0 #### [facility] [address] [place], [address] Comprehensive Metabolic Prof ilon 05-09-2025 ALK PHOS 70 U/L Normal 35-104 [facility] Comment on above: Performed By: #### L [id number] #### [facility] [address] [place], [address] BUN/CRE 30.1 RATIO High 10-20 [facility] Comment on above: Performed By: #### L 501.2300 #### [facility] [address] [place], [address] ECRCL 180.91 ml/min Normal 50-250 [facility] Comment on above: Performed By: #### L [id number] #### [facility] [address] [place], [address] GAP 12 Normal 5-15 [facility] Comment on above: Performed By: #### L [id number] #### [facility] [address] [place], [address] Potassium [Moles/Vol] 4.1 mmol/L Normal 3.3-5.1 [facility] Comment on above: Performed By: #### L 501.2300 #### [facility] [address] [place], [address] T PROT 6.9 g/dL Normal 5.9-8.4 [facility] Comment on above: Performed By: #### L 501.2300 #### [facility] [address] [place], [address] Comprehensive Metabolic Prof ilOrdered By: Ara Franklin on 05-09-2025 AST [Catalytic activity/Vol] 20 U/L Normal <=31 [facility] Comment on above: Performed By: #### L 501.2300 #### [facility] [address] [place], [place], [address] Eosinophil percentageOrdered By: Ara Franklin on 05-09-2025 Eosinophils/100 WBC (Bld) 0.0 % 0-5 [facility] Erythrocyte distribution wid th ratioOrdered By: Ara Franklin on 05-09-2025 Erythrocyte distribution width (RBC) [Ratio] 17.1 % High 11.6-14.6 [facility] Erythrocyte distribution wid th standard deviationOrdered By: Ara Franklin on 05-09-2025 Erythrocyte distribution width (RBC) [Ratio] 56.4 fl High 35.1-43.9 [facility] Glomerular filtration rate ( GFR) estimation/1.73 sq m using serum, plasma, or whole bOrdered By: Ara Franklin on 05-09-2025 GFR/1.73 sq M.predicted among non-blacks MDRD (S/P/Bld) [Vol rate/Area] 136 mL/min/{1.73_m2} Normal >60 [facility] Comment on above: mL/min/1.73m2 CKD-EP I Creatinine Equation (2020) Result Comment: mL/m in/1.73m2 CKD-EPI Creatinine Equation (2020) Performed By: #### L 501.2300 #### [facility] [address] [place], [address] Hematocrit Auto (Bld) [Volum e fraction]Ordered By: Ara Franklin on 05-09-2025 Hematocrit (Bld) [Volume fraction] 36.8 % Low 37-47 [facility] Hemoglobin measurementOrdere d By: Ara Franklin on 05-09-2025 Hemoglobin (Bld) [Mass/Vol] 12.3 g/dL 12.0-15.0 [facility] Immature granulocytes/100 WB C Auto (Bld)Ordered By: [facility] on 05-09-2025 Immature granulocytes/100 WBC (Bld) 0.500 % 0.0-0.9 [facility] Comment on above: IG% - Immature Granu locytes (promyelocytes, myelocytes and metamyelocytes) > 1% indicates that a LEFT SHIFT is Present. MCV (mean corpuscular volume ) determinationOrdered By: Ara Franklin on 05-09-2025 MCV (RBC) [Entitic vol] 90.9 fL 81-99 [facility] Magnesiumon 05-09-2025 Magnesium [Mass/Vol] 1.9 mg/dL Normal 1.5-2.2 [facility] Comment on above: Performed By: #### L 501.2300 #### [facility] [address] [place], [address] Magnesium measurement (mass/ volume)Ordered By: Ara Franklin on 05-09-2025 Magnesium (Unsp spec) [Mass/Vol] 1.9 mg/dL 1.5-2.2 [facility] Mean corpuscular hemoglobin (MCH) determinationOrdered By: Ara Franklin on 05-09-2025 MCH (RBC) [Entitic mass] 30.4 pg 27.0-32.0 [facility] Mean corpuscular hemoglobin concentration (MCHC) determinationOrdered By: Ara Franklin on 05-09-2025 MCHC (RBC) [Mass/Vol] 33.4 g/dL 32-36 [facility] Mean platelet volume determi nationOrdered By: [facility] on 05-09-2025 Platelet mean volume (Bld) [Entitic vol] 8.9 fL 6.2-12.0 [facility] Monocyte percentageOrdered B y: Ara Franklin on 05-09-2025 Monocytes/100 WBC (Bld) 2.6 % 0-10 [facility] Neutrophil percentageOrdered By: [facility] Rigoberto on 05-09-2025 Neutrophils/100 WBC (Bld) 80.5 % High 47-70 [facility] Nucleated red blood cell per centageOrdered By: [facility] on 05-09-2025 Nucleated RBC/100 WBC (Bld) [Ratio] 0 % 0-5 [facility] Oncology Visit Reporton 10 Oncology Visit Report [facility] [address] 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 January 25, [...] cough, SOB, swelling of her extremities, numbness/tingling. [facility] Medical History (Updated 05/09/25 @ 10:[address] LIAISON, COURT LIAISON-C) Encounter for antineoplastic chemotherapy and immunotherapy Encounter [...] 6.6 Hgb (more content not included)... Normal [facility] Phosphoruson 05-09-2025 Phosphate [Mass/Vol] 4.2 mg/dL Normal 2.7-4.5 [facility] Comment on above: Performed By: #### L [id number] #### [facility] [address] [place], [place], [address] Platelet countOrdered By: Huong Franklin on 05-09-2025 Platelets (Bld) [#/Vol] 210 10*3/uL 150-450 [facility] Potassium measurement (mass/ volume)Ordered By: Ara Franklin on 05-09-2025 Potassium (Unsp spec) [Mass/Vol] 4.1 mmol/L 3.3-5.1 [facility] ,Urineon 05-09-2025 Beta HCG ( test) Ql (U) Negative Normal [facility] Comment on above: Order Comment: [id number] Result Comment: Very dilute urine specimens, as indicated by a low specific gravity, may not contain medical detail representative levels of hCG. If is still suspected, a first morning urine specimen should be collected 48 hours later and tested. Performed By: #### L [id number] #### [facility] [address] [place], [address] RBC Auto (Bld) [#/Vol]Ordere d By: Ara Franklin on 05-09-2025 RBC (Bld) [#/Vol] 4.05 10*6/uL Low 4.2-5.4 [facility] Serum creatinine measurement (mass/volume)Ordered By: Ara Franklin on 05-09-2025 Creatinine [Mass/Vol] 0.42 mg/dL Low 0.70-1.20 [facility] Comment on above: Performed By: #### L [id number] #### [facility] [address] [place], [address] Serum globulin measurementOr dered By: Ara Franklin on 05-09-2025 Globulin (S) [Mass/Vol] 2.6 g/dL Normal 2.2-4.2 [facility] Comment on above: Performed By: #### L [id number] #### [facility] [address] [place], [address] Serum glucose measurement (m ass/volume)Ordered By: Ara Franklin on 05-09-2025 Glucose [Mass/Vol] 134 mg/dL High 70-99 [facility] Comment on above: Performed By: #### L 501.2300 #### [facility] [address] [place], [address] Serum or plasma alanine mcdonald otransferase (ALT) measurementOrdered By: Ara Franklin on 05-09-2025 ALT [Catalytic activity/Vol] 40 U/L High <=34 [facility] Comment on above: Performed By: #### L [id number] #### [facility] [address] [place], [address] Serum or plasma albumin ernestine urement (mass/volume)Ordered By: Ara Franklin on 05-09-2025 Albumin [Mass/Vol] 4.3 g/dL Normal 3.5-5.0 [facility] Comment on above: Performed By: #### L 501.2300 #### [facility] [address] [place], [address] Serum or plasma albumin/glob ulin mass ratioOrdered By: Ara Franklin on 05-09-2025 Albumin/Globulin [Mass ratio] 1.6 {ratio} Normal 0.9-2.4 [facility] Comment on above: Performed By: #### L 501.2300 #### [facility] [address] [place], [address] Serum or plasma alkaline chuckie sphatase measurementOrdered By: Ara Franklin on 05-09-2025 ALP [Catalytic activity/Vol] 70 U/L 35-104 [facility] Serum or plasma calcium ernestine urement (mass/volume)Ordered By: Ara Franklin on 05-09-2025 Calcium [Mass/Vol] 9.3 mg/dL Normal 7.6-11.0 [facility] Comment on above: Performed By: #### L 501.2300 #### [facility] [address] [place], [address] Serum or plasma urea nitroge n measurement (mass/volume)Ordered By: Ara Franklin on 05-09-2025 Urea nitrogen [Mass/Vol] 13 mg/dL Normal 4-19 [facility] Comment on above: Performed By: #### L [id number] #### [facility] [address] [place], [address] Sodium levelOrdered By: Marlys Franklin on 05-09-2025 Sodium [Moles/Vol] 138 mmol/L Normal 133-145 [facility] Comment on above: Performed By: #### L 501.2300 #### [facility] [address] [place], [place], [id number] Total proteinOrdered By: Andrés rhodes Rigoberto on 05-09-2025 Protein [Mass/Vol] 6.9 g/dL 5.9-8.4 [facility] Urine testOrdered By: Sheila Eubanks on 05-09-2025 HCG ( test) Ql (U) Negative [facility] Comment on above: Very dilute urine sp ecimens, as indicated by a low specificgravity, may not contain medical detail representative levels of hCG. If is still suspected, a first morning urinespecimen should be collected 48 hours later and tested. White blood cell (WBC) count Ordered By: Ara Franklin on 05-09-2025 WBC (Bld) [#/Vol] 6.6 10*3/uL 4.4-11.0 [facility] Absolute lymphocyte countOrd ered By: Ara Franklin on 04-18-2025 Lymphocytes Auto (Unsp spec) [#/Vol] 1.20 10*3/uL 0.83-4.51 [facility] Absolute neutrophil countOrd ered By: Ara Franklin on 04-18-2025 Neutrophils (Bld) [#/Vol] 7.5 10*3/uL 2.0-7.7 [facility] Anion gap in Serum or Plasma Ordered By: Ara Franklin on 04-18-2025 Anion gap [Moles/Vol] 13 mmol/L 5-15 [facility] Automated lymphocyte count a s percentage of total leukocytesOrdered By: Ara Franklin on 04-18-2025 Lymphocytes/100 WBC Auto (Unsp spec) 13.2 % Low 19-41 [facility] BUN/creatinine ratioOrdered By: Ara Franklin on 04-18-2025 Urea nitrogen/Creatinine [Mass ratio] 30.5 mg/mg High 10-20 [facility] Basophil percentageOrdered B y: Ara Franklin on 04-18-2025 Basophils/100 WBC (Bld) 0.1 % 0-1 [facility] Bilirubin, totalOrdered By: Ara Franklin on 04-18-2025 Bilirubin [Mass/Vol] 0.24 mg/dL 0.00-1.30 [facility] CBC W/Diff, Automatedon 04-09-2024 Absolute Lymph 1.20 X10 3/uL Normal 0.83-4.51 [facility] Comment on above: Performed By: #### L [id number] #### [facility] [address] [place], [address] Absolute Neut 7.5 X10 3/uL Normal 2.0-7.7 [facility] Comment on above: Performed By: #### L [id number] #### [facility] [address] [place], [address] Basophils/100 WBC (Bld) 0.1 % Normal 0-1 [facility] Comment on above: Performed By: #### L [id number] #### [facility] [address] [place], [address] Eosinophils/100 WBC (Bld) 0.0 % Normal 0-5 [facility] Comment on above: Performed By: #### L [id number] #### [facility] [address] [place], [address] Erythrocyte distribution width (RBC) [Ratio] 16.1 % High 11.6-14.6 [facility] Comment on above: Performed By: #### L [id number] #### [facility] [address] [place], [address] Hematocrit (Bld) [Volume fraction] 37.0 % Normal 37-47 [facility] Comment on above: Performed By: #### L [id number] #### [facility] [address] [place], [address] Hemoglobin (Bld) [Mass/Vol] 12.2 g/dL Normal 12.0-15.0 [facility] Comment on above: Performed By: #### L [id number] #### [facility] [address] [place], [address] IG% 0.700 Normal 0.0-0.9 [facility] Comment on above: Result Comment: IG% - Immature Granulocytes (promyelocytes, myelocytes and metamyelocytes) > 1% indicates that a LEFT SHIFT is Present. Performed By: #### L [id number] #### [facility] [address] [place], [address] Lymphocytes/100 WBC (Bld) 13.2 % Low 19-41 [facility] Comment on above: Performed By: #### L [id number] #### [facility] [address] [place], [address] MCH (RBC) [Entitic mass] 29.8 pg Normal 27.0-32.0 [facility] Comment on above: Performed By: #### L [id number] #### [facility] [address] [place], [address] MCHC (RBC) [Mass/Vol] 33.0 g/dL Normal 32-36 [facility] Comment on above: Performed By: #### L [id number] #### [facility] [address] [place], [address] MCV (RBC) [Entitic vol] 90.5 fL Normal 81-99 [facility] Comment on above: Performed By: #### L [id number] #### [facility] [address] [place], [address] Monocytes/100 WBC (Bld) 2.9 % Normal 0-10 [facility] Comment on above: Performed By: #### L [id number] #### [facility] [address] [place], [address] Neutrophils/100 WBC (Bld) 83.1 % High 47-70 [facility] Comment on above: Performed By: #### L [id number] #### [facility] [address] [place], [address] Nucleated RBC (Bld) [#/Vol] 0 10*3/uL Normal 0-5 [facility] Comment on above: Performed By: #### L [id number] #### [facility] [address] [place], [address] Platelet mean volume (Bld) [Entitic vol] 8.9 fL Normal 6.2-12.0 [facility] Comment on above: Performed By: #### L [id number] #### [facility] [address] [place], [address] Platelets (Bld) [#/Vol] 252 10*3/uL Normal 150-450 [facility] Comment on above: Performed By: #### L [id number] #### [facility] [address] [place], [address] RBC (Bld) [#/Vol] 4.09 10*6/uL Low 4.2-5.4 [facility] Comment on above: Performed By: #### L [id number] #### [facility] [address] [place], [address] RDW SD 52.7 fl High 35.1-43.9 [facility] Comment on above: Performed By: #### L [id number] #### [facility] [address] [place], [address] WBC (Bld) [#/Vol] 9.1 10*3/uL Normal 4.4-11.0 [facility] Comment on above: Performed By: #### L [id number] #### [facility] [address] [place], [address] Carbon dioxide, total [Moles /volume] in Central venous bloodOrdered By: Ara Rigoberto on 04-18-2025 CO2 [Moles/Vol] 20.9 mmol/L Low 21.0-32.0 [facility] Chloride assayOrdered By: Huong donis Rigoberto on 04-18-2025 Chloride [Moles/Vol] 104 mmol/L 98-108 [facility] Comprehensive Metabolic Prof ilon 04-18-2025 Albumin [Mass/Vol] 4.3 g/dL Normal 3.5-5.0 [facility] Comment on above: Performed By: #### L [id number] #### [facility] [address] [place], [address] Albumin/Globulin [Mass ratio] 1.5 {ratio} Normal 0.9-2.4 [facility] Comment on above: Performed By: #### L [id number] #### [facility] [address] [place], [address] ALK PHOS 83 U/L Normal 35-104 [facility] Comment on above: Performed By: #### L 501.2300 #### [facility] [address] [place], [address] ALT [Catalytic activity/Vol] 108 U/L High <=34 [facility] Comment on above: Performed By: #### L 501.2300 #### [facility] [address] [place], [address] AST [Catalytic activity/Vol] 46 U/L High <=31 [facility] Comment on above: Performed By: #### L 501.2300 #### [facility] [address] [place], [address] Bilirubin [Mass/Vol] 0.24 mg/dL Normal 0.00-1.30 [facility] Comment on above: Performed By: #### L 501.2300 #### [facility] [address] [place], [address] BUN/CRE 30.5 RATIO High 10-20 [facility] Comment on above: Performed By: #### L 501.2300 #### [facility] [address] [place], [address] Calcium [Mass/Vol] 9.5 mg/dL Normal 7.6-11.0 [facility] Comment on above: Performed By: #### L 501.2300 #### [facility] [address] [place], [address] Chloride [Moles/Vol] 104 mmol/L Normal 98-108 [facility] Comment on above: Performed By: #### L 501.2300 #### [facility] [address] [place], [address] CO2 [Moles/Vol] 20.9 mmol/L Low 21.0-32.0 [facility] Comment on above: Performed By: #### L 501.2300 #### [facility] [address] [place], [address] Creatinine [Mass/Vol] 0.52 mg/dL Low 0.70-1.20 [facility] Comment on above: Performed By: #### L 501.2300 #### [facility] [address] [place], [address] ECRCL 145.14 ml/min Normal 50-250 [facility] Comment on above: Performed By: #### L 501.2300 #### [facility] [address] [place], [address] GAP 13 Normal 5-15 [facility] Comment on above: Performed By: #### L 501.2300 #### [facility] [address] [place], [address] GFR/1.73 sq M.predicted among non-blacks MDRD (S/P/Bld) [Vol rate/Area] 130 mL/min/{1.73_m2} Normal >60 [facility] Comment on above: Result Comment: mL/m in/1.73m2 CKD-EPI Creatinine Equation (2020) Performed By: #### L 501.2300 #### [facility] [address] [place], [address] Globulin (S) [Mass/Vol] 2.8 g/dL Normal 2.2-4.2 [facility] Comment on above: Performed By: #### L 501.2300 #### [facility] [address] [place], [address] Glucose [Mass/Vol] 160 mg/dL High 70-99 [facility] Comment on above: Performed By: #### L 501.2300 #### [facility] [address] [place], [address] Potassium [Moles/Vol] 4.1 mmol/L Normal 3.3-5.1 [facility] Comment on above: Performed By: #### L 501.2300 #### [facility] [address] [place], [address] Sodium [Moles/Vol] 138 mmol/L Normal 133-145 [facility] Comment on above: Performed By: #### L 501.2300 #### [facility] [address] [place], [address] T PROT 7.1 g/dL Normal 5.9-8.4 [facility] Comment on above: Performed By: #### L 501.2300 #### [facility] [address] [place], [address] Urea nitrogen [Mass/Vol] 16 mg/dL Normal 4-19 [facility] Comment on above: Performed By: #### L 501.2300 #### [facility] [address] [place], [address] Eosinophil percentageOrdered By: Ara Franklin on 04-18-2025 Eosinophils/100 WBC (Bld) 0.0 % 0-5 [facility] Erythrocyte distribution wid th ratioOrdered By: Ara Franklin on 04-18-2025 Erythrocyte distribution width (RBC) [Ratio] 16.1 % High 11.6-14.6 [facility] Erythrocyte distribution wid th standard deviationOrdered By: Ara Franklin on 04-18-2025 Erythrocyte distribution width (RBC) [Ratio] 52.7 fl High 35.1-43.9 [facility] Glomerular filtration rate ( GFR) estimation/1.73 sq m using serum, plasma, or whole bOrdered By: Ara Franklin on 04-18-2025 GFR/1.73 sq M.predicted among non-blacks MDRD (S/P/Bld) [Vol rate/Area] 130 mL/min/{1.73_m2} >60 [facility] Comment on above: mL/min/1.73m2 CKD-EP I Creatinine Equation (2020) Hematocrit Auto (Bld) [Volum e fraction]Ordered By: [facility] on 04-18-2025 Hematocrit (Bld) [Volume fraction] 37.0 % 37-47 [facility] Hemoglobin measurementOrdere d By: Ara Franklin on 04-18-2025 Hemoglobin (Bld) [Mass/Vol] 12.2 g/dL 12.0-15.0 [facility] Immature granulocytes/100 WB C Auto (Bld)Ordered By: Ara Franklin on 04-18-2025 Immature granulocytes/100 WBC (Bld) 0.700 % 0.0-0.9 [facility] Comment on above: IG% - Immature Granu locytes (promyelocytes, myelocytes and metamyelocytes) > 1% indicates that a LEFT SHIFT is Present. Laboratory - Chemistry and C hemistry - challengeOrdered By: Ara Franklin on 04-18-2025 AST [Catalytic activity/Vol] 46 U/L High <32 [facility] MCV (mean corpuscular volume ) determinationOrdered By: Ara Franklin on 04-18-2025 MCV (RBC) [Entitic vol] 90.5 fL 81-99 [facility] Magnesiumon 04-18-2025 Magnesium [Mass/Vol] 1.9 mg/dL Normal 1.5-2.2 [facility] Comment on above: Performed By: #### L 501.2300 #### [facility] [address] [place], [address] Magnesium measurement (mass/ volume)Ordered By: Ara Franklin on 04-18-2025 Magnesium (Unsp spec) [Mass/Vol] 1.9 mg/dL 1.5-2.2 [facility] Mean corpuscular hemoglobin (MCH) determinationOrdered By: [facility] Rigoberto on 04-18-2025 MCH (RBC) [Entitic mass] 29.8 pg 27.0-32.0 [facility] Mean corpuscular hemoglobin concentration (MCHC) determinationOrdered By: [facility] Rigoberto on 04-18-2025 MCHC (RBC) [Mass/Vol] 33.0 g/dL 32-36 [facility] Mean platelet volume determi nationOrdered By: [facility] Rigoberto on 04-18-2025 Platelet mean volume (Bld) [Entitic vol] 8.9 fL 6.2-12.0 [facility] Monocyte percentageOrdered B y: Ara Franklin on 04-18-2025 Monocytes/100 WBC (Bld) 2.9 % 0-10 [facility] Neutrophil percentageOrdered By: [facility] Rigoberto on 04-18-2025 Neutrophils/100 WBC (Bld) 83.1 % High 47-70 [facility] Nucleated red blood cell per centageOrdered By: [facility] on 04-18-2025 Nucleated RBC/100 WBC (Bld) [Ratio] 0 % 0-5 [facility] Oncology Visit Reporton 04-09 Oncology Visit Report [facility] [address] [place] [address] OFFICE VISIT Date of Service: 04/18/25910 MR#: [id number] Acct: [id number] Name: SHAUNA RAINEY Rep #: [id number] : 1995 From: Ara Franklin MD Age/Sex: 29/F Location: [facility] Status: Signed HPI Subjective Date of [...] 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 January 25, [...] the left side. Treatment summary and response: [facility] March 07, 2025 [facility] Medical History Encounter for education Wears glasses [...] as documented (more content not included)... Normal [facility] Phosphoruson 04-18-2025 Phosphate [Mass/Vol] 3.8 mg/dL Normal 2.7-4.5 [facility] Comment on above: Performed By: #### L 986.2141 #### [facility] [address] [place], [address] Platelet countOrdered By: Huong Franklin on 04-18-2025 Platelets (Bld) [#/Vol] 252 10*3/uL 150-450 [facility] Potassium measurement (mass/ volume)Ordered By: Ara Franklin on 04-18-2025 Potassium (Unsp spec) [Mass/Vol] 4.1 mmol/L 3.3-5.1 [facility] RBC Auto (Bld) [#/Vol]Ordere d By: Ara Franklin on 04-18-2025 RBC (Bld) [#/Vol] 4.09 10*6/uL Low 4.2-5.4 [facility] Serum creatinine measurement (mass/volume)Ordered By: Ara Franklin on 04-18-2025 Creatinine [Mass/Vol] 0.52 mg/dL Low 0.70-1.20 [facility] Serum globulin measurementOr dered By: Ara Franklin on 04-18-2025 Globulin (S) [Mass/Vol] 2.8 g/dL 2.2-4.2 [facility] Serum glucose measurement (m ass/volume)Ordered By: Ara Franklin on 04-18-2025 Glucose [Mass/Vol] 160 mg/dL High 70-99 [facility] Serum or plasma alanine mcdonald otransferase (ALT) measurementOrdered By: Ara Franklin on 04-18-2025 ALT [Catalytic activity/Vol] 108 U/L High <35 [facility] Serum or plasma albumin ernestine urement (mass/volume)Ordered By: Ara Franklin on 04-18-2025 Albumin [Mass/Vol] 4.3 g/dL 3.5-5.0 [facility] Serum or plasma albumin/glob ulin mass ratioOrdered By: Ara Franklin on 04-18-2025 Albumin/Globulin [Mass ratio] 1.5 {ratio} 0.9-2.4 [facility] Serum or plasma alkaline chuckie sphatase measurementOrdered By: Ara Franklin on 04-18-2025 ALP [Catalytic activity/Vol] 83 U/L 35-104 [facility] Serum or plasma calcium ernestine urement (mass/volume)Ordered By: Ara Franklin on 04-18-2025 Calcium [Mass/Vol] 9.5 mg/dL 7.6-11.0 [facility] Serum or plasma urea nitroge n measurement (mass/volume)Ordered By: Ara Franklin on 04-18-2025 Urea nitrogen [Mass/Vol] 16 mg/dL 4-19 [facility] Sodium levelOrdered By: Marlys krysta Rigoberto on 04-18-2025 Sodium [Moles/Vol] 138 mmol/L 133-145 [facility] Total proteinOrdered By: Andrés Franklin on 04-18-2025 Protein [Mass/Vol] 7.1 g/dL 5.9-8.4 [facility] White blood cell (WBC) count Ordered By: Ara Franklin on 04-18-2025 WBC (Bld) [#/Vol] 9.1 10*3/uL 4.4-11.0 [facility] Absolute lymphocyte countOrd ered By: Ara Franklin on 03-29-2025 Lymphocytes Auto (Unsp spec) [#/Vol] 1.00 10*3/uL 0.83-4.51 [facility] Absolute neutrophil countOrd ered By: Ara Franklin on 03-29-2025 Neutrophils (Bld) [#/Vol] 10.2 10*3/uL High 2.0-7.7 [facility] Anion gap in Serum or Plasma Ordered By: Ara Franklin on 03-29-2025 Anion gap [Moles/Vol] 13 mmol/L 5-15 [facility] Automated lymphocyte count a s percentage of total leukocytesOrdered By: Ara Franklin on 03-29-2025 Lymphocytes/100 WBC Auto (Unsp spec) 8.6 % Low 19-41 [facility] BUN/creatinine ratioOrdered By: Ara Franklin on 03-29-2025 Urea nitrogen/Creatinine [Mass ratio] 21.9 mg/mg High 10-20 [facility] Basophil percentageOrdered B y: Ara Franklin on 03-29-2025 Basophils/100 WBC (Bld) 0.2 % 0-1 [facility] Bilirubin, totalOrdered By: Ara Franklin on 03-29-2025 Bilirubin [Mass/Vol] 0.19 mg/dL 0.00-1.30 [facility] CBC W/Diff, Automatedon 03-10 Absolute Lymph 1.00 X10 3/uL Normal 0.83-4.51 [facility] Comment on above: Performed By: #### L 100.0100, L501.5200, L500.4050 #### [facility] [address] [place], [address] Absolute Neut 10.2 X10 3/uL High 2.0-7.7 [facility] Comment on above: Performed By: #### L 100.0100, L501.5200, L500.4050 #### [facility] [address] [place], [address] Basophils/100 WBC (Bld) 0.2 % Normal 0-1 [facility] Comment on above: Performed By: #### L 100.0100, L501.5200, L500.4050 #### [facility] [address] [place], [address] Eosinophils/100 WBC (Bld) 0.0 % Normal 0-5 [facility] Comment on above: Performed By: #### L 100.0100, L501.5200, L500.4050 #### [facility] [address] [place], [address] Erythrocyte distribution width (RBC) [Ratio] 14.8 % High 11.6-14.6 [facility] Comment on above: Performed By: #### L 100.0100, L501.5200, L500.4050 #### [facility] [address] [place], [address] Hematocrit (Bld) [Volume fraction] 35.5 % Low 37-47 [facility] Comment on above: Performed By: #### L 100.0100, L501.5200, L500.4050 #### [facility] [address] [place], [address] Hemoglobin (Bld) [Mass/Vol] 12.1 g/dL Normal 12.0-15.0 [facility] Comment on above: Performed By: #### L 100.0100, L501.5200, L500.4050 #### [facility] [address] [place], [address] IG% 0.800 Normal 0.0-0.9 [facility] Comment on above: Result Comment: IG% - Immature Granulocytes (promyelocytes, myelocytes and metamyelocytes) > 1% indicates that a LEFT SHIFT is Present. Performed By: #### L 100.0100, L501.5200, L500.4050 #### [facility] [address] [place], [address] Lymphocytes/100 WBC (Bld) 8.6 % Low 19-41 [facility] Comment on above: Performed By: #### L 100.0100, L501.5200, L500.4050 #### [facility] [address] [place], [address] MCH (RBC) [Entitic mass] 30.3 pg Normal 27.0-32.0 [facility] Comment on above: Performed By: #### L 100.0100, L501.5200, L500.4050 #### [facility] [address] [place], [address] MCHC (RBC) [Mass/Vol] 34.1 g/dL Normal 32-36 [facility] Comment on above: Performed By: #### L 100.0100, L501.5200, L500.4050 #### [facility] [address] [place], [address] MCV (RBC) [Entitic vol] 89.0 fL Normal 81-99 [facility] Comment on above: Performed By: #### L 100.0100, L501.5200, L500.4050 #### [facility] [address] [place], [address] Monocytes/100 WBC (Bld) 2.6 % Normal 0-10 [facility] Comment on above: Performed By: #### L 100.0100, L501.5200, L500.4050 #### [facility] [address] [place], [address] Neutrophils/100 WBC (Bld) 87.8 % High 47-70 [facility] Comment on above: Performed By: #### L 100.0100, L501.5200, L500.4050 #### [facility] [address] [place], [address] Nucleated RBC (Bld) [#/Vol] 0 10*3/uL Normal 0-5 [facility] Comment on above: Performed By: #### L 100.0100, L501.5200, L500.4050 #### [facility] [address] [place], [address] Platelet mean volume (Bld) [Entitic vol] 9.1 fL Normal 6.2-12.0 [facility] Comment on above: Performed By: #### L 100.0100, L501.5200, L500.4050 #### [facility] [address] [place], [address] Platelets (Bld) [#/Vol] 280 10*3/uL Normal 150-450 [facility] Comment on above: Performed By: #### L 100.0100, L501.5200, L500.4050 #### [facility] [address] [place], [address] RBC (Bld) [#/Vol] 3.99 10*6/uL Low 4.2-5.4 [facility] Comment on above: Performed By: #### L 100.0100, L501.5200, L500.4050 #### [facility] [address] [place], [address] RDW SD 46.7 fl High 35.1-43.9 [facility] Comment on above: Performed By: #### L 100.0100, L501.5200, L500.4050 #### [facility] [address] [place], [address] WBC (Bld) [#/Vol] 11.6 10*3/uL High 4.4-11.0 [facility] Comment on above: Performed By: #### L 100.0100, L501.5200, L500.4050 #### [facility] [address] [place], [address] Carbon dioxide, total [Moles /volume] in Central venous bloodOrdered By: Ara Franklin on 03-29-2025 CO2 [Moles/Vol] 20.3 mmol/L Low 21.0-32.0 [facility] Chloride assayOrdered By: Huong Franklin on 03-29-2025 Chloride [Moles/Vol] 103 mmol/L 98-108 [facility] Comprehensive Metabolic Prof ilon 03-29-2025 Albumin [Mass/Vol] 4.0 g/dL Normal 3.5-5.0 [facility] Comment on above: Performed By: #### L 100.0100, L501.5200, L500.4050 #### [facility] [address] [place], [address] Albumin/Globulin [Mass ratio] 1.7 {ratio} Normal 0.9-2.4 [facility] Comment on above: Performed By: #### L 100.0100, L501.5200, L500.4050 #### [facility] [address] [place], [address] ALK PHOS 62 U/L Normal 35-104 [facility] Comment on above: Performed By: #### L 100.0100, L501.5200, L500.4050 #### [facility] [address] [place], [address] ALT [Catalytic activity/Vol] 53 U/L High <=34 [facility] Comment on above: Performed By: #### L 100.0100, L501.5200, L500.4050 #### [facility] [address] [place], [address] AST [Catalytic activity/Vol] 19 U/L Normal <=31 [facility] Comment on above: Performed By: #### L 100.0100, L501.5200, L500.4050 #### [facility] [address] [place], [address] Bilirubin [Mass/Vol] 0.19 mg/dL Normal 0.00-1.30 [facility] Comment on above: Performed By: #### L 100.0100, L501.5200, L500.4050 #### [facility] [address] [place], [address] BUN/CRE 21.9 RATIO High 10-20 [facility] Comment on above: Performed By: #### L 100.0100, L501.5200, L500.4050 #### [facility] [address] [place], [address] Calcium [Mass/Vol] 9.1 mg/dL Normal 7.6-11.0 [facility] Comment on above: Performed By: #### L 100.0100, L501.5200, L500.4050 #### [facility] [address] [place], [address] Chloride [Moles/Vol] 103 mmol/L Normal 98-108 [facility] Comment on above: Performed By: #### L 100.0100, L501.5200, L500.4050 #### [facility] [address] [place], [address] CO2 [Moles/Vol] 20.3 mmol/L Low 21.0-32.0 [facility] Comment on above: Performed By: #### L 100.0100, L501.5200, L500.4050 #### [facility] [address] [place], [address] Creatinine [Mass/Vol] 0.59 mg/dL Low 0.70-1.20 [facility] Comment on above: Performed By: #### L 100.0100, L501.5200, L500.4050 #### [facility] [address] [place], [address] ECRCL 127.92 ml/min Normal 50-250 [facility] Comment on above: Performed By: #### L 100.0100, L501.5200, L500.4050 #### [facility] [address] [place], [address] GAP 13 Normal 5-15 [facility] Comment on above: Performed By: #### L 100.0100, L501.5200, L500.4050 #### [facility] [address] [place], [address] GFR/1.73 sq M.predicted among non-blacks MDRD (S/P/Bld) [Vol rate/Area] 126 mL/min/{1.73_m2} Normal >60 [facility] Comment on above: Result Comment: mL/m in/1.73m2 CKD-EPI Creatinine Equation (2020) Performed By: #### L 100.0100, L501.5200, L500.4050 #### [facility] [address] [place], [address] Globulin (S) [Mass/Vol] 2.4 g/dL Normal 2.2-4.2 [facility] Comment on above: Performed By: #### L 100.0100, L501.5200, L500.4050 #### [facility] [address] [place], [address] Glucose [Mass/Vol] 211 mg/dL High 70-99 [facility] Comment on above: Performed By: #### L 100.0100, L501.5200, L500.4050 #### [facility] [address] [place], [address] Potassium [Moles/Vol] 3.7 mmol/L Normal 3.3-5.1 [facility] Comment on above: Result Comment: Hemo lysis present, Results??could be affected. ?? Performed By: #### L 100.0100, L501.5200, L500.4050 #### [facility] [address] [place], [address] Sodium [Moles/Vol] 137 mmol/L Normal 133-145 [facility] Comment on above: Performed By: #### L 100.0100, L501.5200, L500.4050 #### [facility] [address] [place], [address] T PROT 6.4 g/dL Normal 5.9-8.4 [facility] Comment on above: Performed By: #### L 100.0100, L501.5200, L500.4050 #### [facility] [address] [place], [address] Urea nitrogen [Mass/Vol] 13 mg/dL Normal 4-19 [facility] Comment on above: Performed By: #### L 100.0100, L501.5200, L500.4050 #### [facility] [address] [place], [address] Eosinophil percentageOrdered By: Ara Franklin on 03-29-2025 Eosinophils/100 WBC (Bld) 0.0 % 0-5 [facility] Erythrocyte distribution wid th ratioOrdered By: Ara Franklin on 03-29-2025 Erythrocyte distribution width (RBC) [Ratio] 14.8 % High 11.6-14.6 [facility] Erythrocyte distribution wid th standard deviationOrdered By: Ara Franklin on 03-29-2025 Erythrocyte distribution width (RBC) [Ratio] 46.7 fl High 35.1-43.9 [facility] Glomerular filtration rate ( GFR) estimation/1.73 sq m using serum, plasma, or whole bOrdered By: Ara Franklin on 03-29-2025 GFR/1.73 sq M.predicted among non-blacks MDRD (S/P/Bld) [Vol rate/Area] 126 mL/min/{1.73_m2} >60 [facility] Comment on above: mL/min/1.73m2 CKD-EP I Creatinine Equation (2020) Hematocrit Auto (Bld) [Volum e fraction]Ordered By: Ara Franklin on 03-29-2025 Hematocrit (Bld) [Volume fraction] 35.5 % Low 37-47 [facility] Hemoglobin measurementOrdere d By: Ara Franklin on 03-29-2025 Hemoglobin (Bld) [Mass/Vol] 12.1 g/dL 12.0-15.0 [facility] Immature granulocytes/100 WB C Auto (Bld)Ordered By: Ara Franklin on 03-29-2025 Immature granulocytes/100 WBC (Bld) 0.800 % 0.0-0.9 [facility] Comment on above: IG% - Immature Granu locytes (promyelocytes, myelocytes and metamyelocytes) > 1% indicates that a LEFT SHIFT is Present. Laboratory - Chemistry and C hemistry - challengeOrdered By: Ara Franklin on 03-29-2025 AST [Catalytic activity/Vol] 19 U/L <32 [facility] MCV (mean corpuscular volume ) determinationOrdered By: Ara Franklin on 03-29-2025 MCV (RBC) [Entitic vol] 89.0 fL 81-99 [facility] Magnesiumon 03-29-2025 Magnesium [Mass/Vol] 1.8 mg/dL Normal 1.5-2.2 [facility] Comment on above: Performed By: #### L 100.0100, L501.5200, L500.4050 #### [facility] Laboratory [address] [place], [address] Magnesium measurement (mass/ volume)Ordered By: Ara Franklin on 03-29-2025 Magnesium (Unsp spec) [Mass/Vol] 1.8 mg/dL 1.5-2.2 [facility] Mean corpuscular hemoglobin (MCH) determinationOrdered By: Ara Franklin on 03-29-2025 MCH (RBC) [Entitic mass] 30.3 pg 27.0-32.0 [facility] Mean corpuscular hemoglobin concentration (MCHC) determinationOrdered By: Ara Franklin on 03-29-2025 MCHC (RBC) [Mass/Vol] 34.1 g/dL 32-36 [facility] Mean platelet volume determi nationOrdered By: Ara Franklin on 03-29-2025 Platelet mean volume (Bld) [Entitic vol] 9.1 fL 6.2-12.0 [facility] Monocyte percentageOrdered B y: Ara Franklin on 03-29-2025 Monocytes/100 WBC (Bld) 2.6 % 0-10 [facility] Neutrophil percentageOrdered By: [facility] on 03-29-2025 Neutrophils/100 WBC (Bld) 87.8 % High 47-70 [facility] Nucleated red blood cell per centageOrdered By: Ara Franklin on 03-29-2025 Nucleated RBC/100 WBC (Bld) [Ratio] 0 % 0-5 [facility] Oncology Visit Reporton 03-10 Oncology Visit Report [facility] [address] 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 January 25, [...] the left side. Treatment summary and response: [facility] March 07, 2025 [facility] Medical History Encounter for education Wears glasses [...] addt'l complaints, (more content not included)... Normal [facility] Phosphoruson 03-29-2025 Phosphate [Mass/Vol] 3.0 mg/dL Normal 2.7-4.5 [facility] Comment on above: Performed By: #### L 501.7570 #### [facility] Laboratory [address] [place], [address] Platelet countOrdered By: Huong Franklin on 03-29-2025 Platelets (Bld) [#/Vol] 280 10*3/uL 150-450 [facility] Potassium measurement (mass/ volume)Ordered By: Ara Franklin on 03-29-2025 Potassium (Unsp spec) [Mass/Vol] 3.7 mmol/L 3.3-5.1 [facility] Comment on above: Hemolysis present, R esults could be affected. RBC Auto (Bld) [#/Vol]Ordere d By: Ara Franklin on 03-29-2025 RBC (Bld) [#/Vol] 3.99 10*6/uL Low 4.2-5.4 [facility] Serum creatinine measurement (mass/volume)Ordered By: Ara Franklin on 03-29-2025 Creatinine [Mass/Vol] 0.59 mg/dL Low 0.70-1.20 [facility] Serum globulin measurementOr dered By: Ara Franklin on 03-29-2025 Globulin (S) [Mass/Vol] 2.4 g/dL 2.2-4.2 [facility] Serum glucose measurement (m ass/volume)Ordered By: Ara Franklin on 03-29-2025 Glucose [Mass/Vol] 211 mg/dL High 70-99 [facility] Serum or plasma alanine mcdonald otransferase (ALT) measurementOrdered By: Ara Franklin on 03-29-2025 ALT [Catalytic activity/Vol] 53 U/L High <35 [facility] Serum or plasma albumin ernestine urement (mass/volume)Ordered By: Ara Franklin on 03-29-2025 Albumin [Mass/Vol] 4.0 g/dL 3.5-5.0 [facility] Serum or plasma albumin/glob ulin mass ratioOrdered By: Ara Franklin on 03-29-2025 Albumin/Globulin [Mass ratio] 1.7 {ratio} 0.9-2.4 [facility] Serum or plasma alkaline chuckie sphatase measurementOrdered By: Ara Franklin on 03-29-2025 ALP [Catalytic activity/Vol] 62 U/L 35-104 [facility] Serum or plasma calcium ernestine urement (mass/volume)Ordered By: Ara Franklin on 03-29-2025 Calcium [Mass/Vol] 9.1 mg/dL 7.6-11.0 [facility] Serum or plasma urea nitroge n measurement (mass/volume)Ordered By: Ara Franklin on 03-29-2025 Urea nitrogen [Mass/Vol] 13 mg/dL 4-19 [facility] Sodium levelOrdered By: Marlys krysta Rigoberto on 03-29-2025 Sodium [Moles/Vol] 137 mmol/L 133-145 [facility] Total proteinOrdered By: Andrés Franklin on 03-29-2025 Protein [Mass/Vol] 6.4 g/dL 5.9-8.4 [facility] White blood cell (WBC) count Ordered By: Ara Franklin on 03-29-2025 WBC (Bld) [#/Vol] 11.6 10*3/uL High 4.4-11.0 [facility] Urine Cultureon 03-22-2025 [facility] Mixed Gram Pos Gram Neg Org [place] Count 25,000-50,000 [facility] Mixed contaminants. Submit a new specimen if indicated. Normal [facility] Comment on above: Performed By: #### M 100.2200, L400.0001 ####[facility] [id number] [place], [address] Absolute lymphocyte countOrd ered By: Ara Franklin on 03-20-2025 Lymphocytes Auto (Unsp spec) [#/Vol] 1.73 10*3/uL 0.83-4.51 [facility] Absolute neutrophil countOrd ered By: Ara Franklin on 03-20-2025 Neutrophils (Bld) [#/Vol] 4.5 10*3/uL 2.0-7.7 [facility] Anion gap in Serum or Plasma Ordered By: Ara Franklin on 03-20-2025 Anion gap [Moles/Vol] 11 mmol/L 5-15 [facility] Automated lymphocyte count a s percentage of total leukocytesOrdered By: Ara Franklin on 03-20-2025 Lymphocytes/100 WBC Auto (Unsp spec) 23.7 % 19-41 [facility] BUN/creatinine ratioOrdered By: Ara Franklin on 03-20-2025 Urea nitrogen/Creatinine [Mass ratio] 26.0 mg/mg High 10-20 [facility] Basophil percentageOrdered B y: Ara Franklin on 03-20-2025 Basophils/100 WBC (Bld) 1.2 % High 0-1 [facility] Bilirubin Test strip Ql (U)O rdered By: Ara Franklin on 03-20-2025 Bilirubin Ql (U) Negative Negative [facility] Bilirubin, totalOrdered By: Ara Franklin on 03-20-2025 Bilirubin [Mass/Vol] mg/dL 0.00-1.30 [facility] Blood manual differential co mment interpretation (narrative result)Ordered By: Ara Franklin on 03-20-2025 Manual differential comment Rohit (Bld) [Interp] SCANNED [facility] CBC W/Diff, Automatedon 03-09 PLT EST SLT DEC Normal ADEQ [facility] Comment on above: Performed By: #### L 501.2300 #### [facility] Laboratory [address] [place], [place], [id number] SMEAR COMMENT SCANNED Normal [facility] Comment on above: Performed By: #### L 501.2300 #### [facility] Laboratory [address] [place], [address] Carbon dioxide, total [Moles /volume] in Central venous bloodOrdered By: Aar Franklin on 03-20-2025 CO2 [Moles/Vol] 22.3 mmol/L Normal 21.0-32.0 [facility] Comment on above: Performed By: #### L 501.2300 #### [facility] [address] [place], [address] Chloride assayOrdered By: Huong Franklin on 03-20-2025 Chloride [Moles/Vol] 105 mmol/L Normal 98-108 [facility] Comment on above: Performed By: #### L 501.2300 #### [facility] Laboratory [address] [place], [address] Comprehensive Metabolic Prof ilon 03-20-2025 ALK PHOS 77 U/L Normal 35-104 [facility] Comment on above: Performed By: #### L 501.2300 #### [facility] Laboratory [address] [place], [address] BUN/CRE 26.0 RATIO High 10-20 [facility] Comment on above: Performed By: #### L 501.2300 #### [facility] [address] [place], [address] ECRCL 129.66 ml/min Normal 50-250 [facility] Comment on above: Performed By: #### L 501.2300 #### [facility] Laboratory [address] [place], [address] GAP 11 Normal 5-15 [facility] Comment on above: Performed By: #### L 501.2300 #### [facility] [address] [place], [address] Potassium [Moles/Vol] 3.7 mmol/L Normal 3.3-5.1 [facility] Comment on above: Performed By: #### L 501.2300 #### [facility] [address] [place], [address] T BILI < 0.15 Normal 0.00-1.30 [facility] Comment on above: Performed By: #### L 501.2300 #### [facility] Laboratory [address] [place], [address] T PROT 6.0 g/dL Normal 5.9-8.4 [facility] Comment on above: Performed By: #### L 501.2300 #### [facility] [address] [place], [address] Comprehensive Metabolic Prof ilOrdered By: Ara Franklin on 03-20-2025 AST [Catalytic activity/Vol] 29 U/L Normal <=31 [facility] Comment on above: Performed By: #### L 501.2300 #### [facility] Laboratory [address] [place], [address] Eosinophil percentageOrdered By: Ara Franklin on 03-20-2025 Eosinophils/100 WBC (Bld) 0.1 % 0-5 [facility] Erythrocyte distribution wid th ratioOrdered By: [facility] Rigoberto on 03-20-2025 Erythrocyte distribution width (RBC) [Ratio] 13.7 % 11.6-14.6 [facility] Erythrocyte distribution wid th standard deviationOrdered By: [facility] Rigoberto on 03-20-2025 Erythrocyte distribution width (RBC) [Ratio] 41.2 fl 35.1-43.9 [facility] Glomerular filtration rate ( GFR) estimation/1.73 sq m using serum, plasma, or whole bOrdered By: Ara Franklin on 03-20-2025 GFR/1.73 sq M.predicted among non-blacks MDRD (S/P/Bld) [Vol rate/Area] 126 mL/min/{1.73_m2} Normal >60 [facility] Comment on above: mL/min/1.73m2 CKD-EP I Creatinine Equation (2020) Result Comment: mL/m in/1.73m2 CKD-EPI Creatinine Equation (2020) Performed By: #### L 501.1169 #### [facility] Laboratory [address] [facility] [place], [place], [id number] Hematocrit Auto (Bld) [Volum e fraction]Ordered By: Ara Franklin on 03-20-2025 Hematocrit (Bld) [Volume fraction] 34.1 % Low 37-47 [facility] Hemoglobin measurementOrdere d By: Ara Franklin on 03-20-2025 Hemoglobin (Bld) [Mass/Vol] 11.4 g/dL Low 12.0-15.0 [facility] Immature granulocytes/100 WB C Auto (Bld)Ordered By: Ara Franklin on 03-20-2025 Immature granulocytes/100 WBC (Bld) 4.700 % High 0.0-0.9 [facility] Comment on above: IG% - Immature Granu locytes (promyelocytes, myelocytes and metamyelocytes) > 1% indicates that a LEFT SHIFT is Present. Ketones Test strip Ql (U)Ord ered By: Ara Franklin on 03-20-2025 Ketones Ql (U) Negative Negative [facility] MCV (mean corpuscular volume ) determinationOrdered By: Ara Franklin on 03-20-2025 MCV (RBC) [Entitic vol] 88.3 fL 81-99 [facility] Magnesiumon 03-20-2025 Magnesium [Mass/Vol] 1.8 mg/dL Normal 1.5-2.2 [facility] Comment on above: Performed By: #### L 501.2300 #### [facility] Laboratory [address] [place] [address], [address] Magnesium measurement (mass/ volume)Ordered By: Ara Franklin on 03-20-2025 Magnesium (Unsp spec) [Mass/Vol] 1.8 mg/dL 1.5-2.2 [facility] Mean corpuscular hemoglobin (MCH) determinationOrdered By: Ara Franklin on 03-20-2025 MCH (RBC) [Entitic mass] 29.5 pg 27.0-32.0 [facility] Mean corpuscular hemoglobin concentration (MCHC) determinationOrdered By: Ara Franklin on 03-20-2025 MCHC (RBC) [Mass/Vol] 33.4 g/dL 32-36 [facility] Mean platelet volume determi nationOrdered By: Ara Franklin on 03-20-2025 Platelet mean volume (Bld) [Entitic vol] 10.0 fL 6.2-12.0 [facility] Microscopic analysis of urin e for red blood cells (RBC)Ordered By: Ara Franklin on 03-20-2025 Microscopic analysis of urine for red blood cells (RBC) 0-5 SEEN /hpf 0-5 [facility] Monocyte percentageOrdered B y: Ara Franklin on 03-20-2025 Monocytes/100 WBC (Bld) 8.2 % 0-10 [facility] Mucus LM Ql (Urine sed)Order ed By: Ara Franklin on 03-20-2025 Mucus Ql (Urine sed) 0 SEEN /hpf [facility] Neutrophil percentageOrdered By: Ara Franklin on 03-20-2025 Neutrophils/100 WBC (Bld) 62.1 % 47-70 [facility] Nitrite Test strip Ql (U)Ord ered By: Ara Franklin on 03-20-2025 Nitrite Ql (U) Negative Negative [facility] Nucleated red blood cell per centageOrdered By: Ara Franklin on 03-20-2025 Nucleated RBC/100 WBC (Bld) [Ratio] 0 % 0-5 [facility] Oncology Visit Reporton 03-09 Oncology Visit Report [facility] [facility] [address] [place] [address] OFFICE VISIT Date of Service: 03/20/25 1542 MR#: [id number] Acct: [id number] Name: SHAUNA RAINEY Rep #: [id number] : 1995 From: Ara Franklin MD Age/Sex: 29/F Location: [facility] Status: Signed HPI Subjective Date of [...] 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 January 25, [...] the left side. Treatment summary and response: [facility] March 07, 2025 [facility] Medical History Encounter for education Wears glasses [...] Psychiatric: Reports (more content not included)... Normal [facility] Platelet countOrdered By: Huong Franklin on 03-20-2025 Platelets (Bld) [#/Vol] 144 10*3/uL Low 150-450 [facility] Platelet estimateOrdered By: Ara Franklin on 03-20-2025 Platelets LM Ql (Bld) SLT DEC ADEQ [facility] Potassium measurement (mass/ volume)Ordered By: Ara Franklin on 03-20-2025 Potassium (Unsp spec) [Mass/Vol] 3.7 mmol/L 3.3-5.1 [facility] Protein Test strip Ql (U)Ord ered By: Ara Franklin on 03-20-2025 Protein Ql (U) 30 mg/dl High Negative [facility] RBC Auto (Bld) [#/Vol]Ordere d By: Ara Franklin on 03-20-2025 RBC (Bld) [#/Vol] 3.86 10*6/uL Low 4.2-5.4 [facility] Serum creatinine measurement (mass/volume)Ordered By: Ara Franklin on 03-20-2025 Creatinine [Mass/Vol] 0.58 mg/dL Low 0.70-1.20 [facility] Comment on above: Performed By: #### L 501.2300 #### [facility] Laboratory [address] [place], [address] Serum globulin measurementOr dered By: Ara Franklin on 03-20-2025 Globulin (S) [Mass/Vol] 2.4 g/dL Normal 2.2-4.2 [facility] Comment on above: Performed By: #### L 501.2300 #### [facility] Laboratory [address] [place], [address] Serum glucose measurement (m ass/volume)Ordered By: Ara Franklin on 03-20-2025 Glucose [Mass/Vol] 88 mg/dL Normal 70-99 [facility] Comment on above: Performed By: #### L 501.2300 #### [facility] Laboratory [address] [place], [address] Serum or plasma alanine mcdonald otransferase (ALT) measurementOrdered By: Ara Franklin on 03-20-2025 ALT [Catalytic activity/Vol] 83 U/L High <=34 [facility] Comment on above: Performed By: #### L 501.2300 #### [facility] [address] [place], [address] Serum or plasma albumin ernestine urement (mass/volume)Ordered By: Ara Franklin on 03-20-2025 Albumin [Mass/Vol] 3.6 g/dL Normal 3.5-5.0 [facility] Comment on above: Performed By: #### L 501.2300 #### [facility] [address] [place], [address] Serum or plasma albumin/glob ulin mass ratioOrdered By: Ara Franklin on 03-20-2025 Albumin/Globulin [Mass ratio] 1.5 {ratio} Normal 0.9-2.4 [facility] Comment on above: Performed By: #### L 501.2300 #### [facility] [address] [place], [place], [address] Serum or plasma alkaline chuckie sphatase measurementOrdered By: Ara Rigoberto on 03-20-2025 ALP [Catalytic activity/Vol] 77 U/L 35-104 [facility] Serum or plasma calcium ernestine urement (mass/volume)Ordered By: Ara Leonardedison on 03-20-2025 Calcium [Mass/Vol] 8.5 mg/dL Normal 7.6-11.0 [facility] Comment on above: Performed By: #### L 501.2300 #### [facility] [address] [place], [place], [id number] Serum or plasma urea nitroge n measurement (mass/volume)Ordered By: Ara Leonardedison on 03-20-2025 Urea nitrogen [Mass/Vol] 15 mg/dL Normal 4-19 [facility] Comment on above: Performed By: #### L 501.2300 #### [facility] [address] [place], [address] Sodium levelOrdered By: Marlys Leonardedison on 03-20-2025 Sodium [Moles/Vol] 139 mmol/L Normal 133-145 [facility] Comment on above: Performed By: #### L 501.2300 #### [facility] [address] [place], [address] Squamous epithelial cells de tection in urine sediment by light microscopyOrdered By: Ara Rigoberto on 03-20-2025 Epithelial cells.squamous LM Ql (Urine sed) 0-5 SEEN /hpf 5-10 [facility] Total proteinOrdered By: Andrés rhodes Rigoberto on 03-20-2025 Protein [Mass/Vol] 6.0 g/dL 5.9-8.4 [facility] Urinalysis, Completeon 03-20 EPI,SQUAMOUS 0-5 SEEN Normal 5-10 [facility] Comment on above: Order Comment: COLLE CTOR TO SPECIFY Performed By: #### M 100.2200, L400.0001 ####[facility] [id number] [place], [address] RBC 0-5 SEEN Normal 0-5 [facility] Comment on above: Order Comment: JESU CTOR TO SPECIFY Performed By: #### M 100.2200, L400.0001 ####[facility] [address] [place], [address] WBC 0-5 SEEN Normal 0-5 [facility] Comment on above: Order Comment: JESU CTOR TO SPECIFY Performed By: #### M 100.2200, L400.0001 ####[facility] [address] [place], [address] BACTERIA 0 SEEN Normal None Seen [facility] Comment on above: Order Comment: JESU CTOR TO SPECIFY Performed By: #### M 100.2200, L400.0001 ####[facility] [id number] [place], [address] Mucus Ql (Urine sed) 0 SEEN Normal [facility] Comment on above: Order Comment: JESU CTOR TO SPECIFY Performed By: #### M 100.2200, L400.0001 ####[facility] [id number] [place], [address] Urine clarityOrdered By: Andrés Franklin on 03-20-2025 Clarity (U) Clear Clear [facility] Urine color determinationOrd ered By: Ara Franklin on 03-20-2025 Color (U) Yellow Yellow [facility] Urine cultureOrdered By: Andrés Franklin on 03-20-2025 Bacteria identified Cx Nom (U) Mixed Gram Pos & Gram Neg Org Abnormal [facility] Bacteria identified Cx Nom (U) Mixed Gram Pos & Gram Neg Org Abnormal [facility] Urine glucose detectionOrder ed By: Ara Franklin on 03-20-2025 Glucose Ql (U) Normal mg/dl Normal [facility] Urine leukocyte esterase det ection by dipstickOrdered By: Ara Franklin on 03-20-2025 Leukocyte esterase Test strip Ql (U) Negative Negative [facility] Urine pHOrdered By: Ara Franklin on 03-20-2025 pH (U) 6.0 [pH] 5.0 - 8.0 [facility] Urine sediment bacteria coun t by microscopy (number/high power field)Ordered By: [facility] on 03-20-2025 Bacteria LM.HPF (Urine sed) [#/Area] 0 /[HPF] None Seen [facility] Urine specific gravity measu rementOrdered By: [facility] on 03-20-2025 Specific gravity (U) [Rel density] 1.020 1.002-1.030 [facility] Urine urobilinogen measureme ntOrdered By: [facility] Rigoberto on 03-20-2025 Urobilinogen Ql (U) Normal mg/dl Normal [facility] White blood cell (WBC) count Ordered By: [facility] on 03-20-2025 WBC (Bld) [#/Vol] 7.3 10*3/uL 4.4-11.0 [facility] White blood cell countOrdere d By: [facility] Franklin on 03-20-2025 White blood cell count 0-5 SEEN /hpf 0-5 [facility] CULTURE, URINE, ROUTINEon CULTURE, URINE, ROUTINE SEE NOTE Normal [facility] Comment on above: Result Comment: CULTURE, URINE, ROUTINE Micro Number: [id number] Test Status: Final Specimen Source: Not given Specimen Quality: Adequate Result: Mixed genital jennie isolated. These superficial bacteria are not indicative of a urinary tract infection. No further organism identification is warranted on this specimen. If clinically indicated, recollect clean-catch, mid-stream urine and transfer immediately to Urine Culture Transport Tube. Performed By: #### 3 95 #### [facility] [address], [address] [place] [address] Brothel Keeper: Dominic Jaimes MD POCT UA Automated manually r esultedon 03-13-2025 Appearance (U) Clear Clear [facility] Work Phone: Glucose Test strip (U) [Mass/Vol] 100 (1+) Abnormal NEGATIVE mg/dl [facility] Work Phone: Hemoglobin Ql (U) TRACE-Intact Abnormal NEGATIVE [facility] Work Phone: [phone] Interpretation and review of laboratory results Abnormal [facility] Work Phone: Leukocyte esterase Test strip Ql (U) Negative NEGATIVE [facility] Work Phone: Nitrite Ql (U) Negative NEGATIVE [facility] Work Phone: pH (U) 5.5 [pH] No Reference Range Established [facility] Work Phone: POC Bilirubin, Urine Negative NEGATIVE [facility] Work Phone: POC Color, Urine Yellow Straw, Yellow, Light-Yellow [facility] Work Phone: POC Ketones, Urine TRACE Abnormal NEGATIVE mg/dl [facility] Work Phone: POC Protein, Urine 100 (2+) Abnormal NEGATIVE mg/dl [facility] Work Phone: )[phone] POC Specific [place], Urine >=1.030 1.005 - 1.035 [facility] Work Phone: POC Urobilinogen, Urine 0.2 0.2, 1.0 EU/DL [facility] Work Phone: [phone] [facility] Work Phone: [phone] CBC W/Diff, Automatedon 07-3 0-2025 Absolute Lymph 0.62 X10 3/uL Low 0.83-4.51 [facility] Comment on above: Performed By: #### L 500.4050, L100.0100, L501.5200 ####[facility] [address] [place], [place], [id number] Absolute Neut 10.5 X10 3/uL High 2.0-7.7 [facility] Comment on above: Performed By: #### L 500.4050, L100.0100, L501.5200 ####[facility] [address] [place], [address] Basophils/100 WBC (Bld) 0.1 % Normal 0-1 [facility] Comment on above: Performed By: #### L 500.4050, L100.0100, L501.5200 ####[facility] [address] [place], [address] Eosinophils/100 WBC (Bld) 0.0 % Normal 0-5 [facility] Comment on above: Performed By: #### L 500.4050, L100.0100, L501.5200 ####[facility] [address] [place], [address] Erythrocyte distribution width (RBC) [Ratio] 12.7 % Normal 11.6-14.6 [facility] Comment on above: Performed By: #### L 500.4050, L100.0100, L501.5200 ####[facility] [address] [place], [address] Hematocrit (Bld) [Volume fraction] 39.7 % Normal 37-47 [facility] Comment on above: Performed By: #### L 500.4050, L100.0100, L501.5200 ####[facility] [address] [place], [address] Hemoglobin (Bld) [Mass/Vol] 13.5 g/dL Normal 12.0-15.0 [facility] Comment on above: Performed By: #### L 500.4050, L100.0100, L501.5200 ####[facility] [address] [place], [address] IG% 0.500 Normal 0.0-0.9 [facility] Comment on above: Result Comment: IG% - Immature Granulocytes (promyelocytes, myelocytes and metamyelocytes) > 1% indicates that a LEFT SHIFT is Present. Performed By: #### L 500.4050, L100.0100, L501.5200 ####[facility] [address] [place], [address] Lymphocytes/100 WBC (Bld) 5.4 % Low 19-41 [facility] Comment on above: Performed By: #### L 500.4050, L100.0100, L501.5200 ####[facility] [address] [place], [address] MCH (RBC) [Entitic mass] 29.7 pg Normal 27.0-32.0 [facility] Comment on above: Performed By: #### L 500.4050, L100.0100, L501.5200 ####[facility] [address] [place], [address] MCHC (RBC) [Mass/Vol] 34.0 g/dL Normal 32-36 [facility] Comment on above: Performed By: #### L 500.4050, L100.0100, L501.5200 ####[facility] [address] [place], [address] MCV (RBC) [Entitic vol] 87.3 fL Normal 81-99 [facility] Comment on above: Performed By: #### L 500.4050, L100.0100, L501.5200 ####[facility] [address] [place], [address] Monocytes/100 WBC (Bld) 2.0 % Normal 0-10 [facility] Comment on above: Performed By: #### L 500.4050, L100.0100, L501.5200 ####[facility] [address] [place], [address] Neutrophils/100 WBC (Bld) 92.0 % High 47-70 [facility] Comment on above: Performed By: #### L 500.4050, L100.0100, L501.5200 ####[facility] [address] [place], [address] Nucleated RBC (Bld) [#/Vol] 0 10*3/uL Normal 0-5 [facility] Comment on above: Performed By: #### L 500.4050, L100.0100, L501.5200 ####[facility] [address] [place], [address] Platelet mean volume (Bld) [Entitic vol] 9.4 fL Normal 6.2-12.0 [facility] Comment on above: Performed By: #### L 500.4050, L100.0100, L501.5200 ####[facility] [address] [place], [address] Platelets (Bld) [#/Vol] 248 10*3/uL Normal 150-450 [facility] Comment on above: Performed By: #### L 500.4050, L100.0100, L501.5200 ####[facility] [address] [place], [address] RBC (Bld) [#/Vol] 4.55 10*6/uL Normal 4.2-5.4 [facility] Comment on above: Performed By: #### L 500.4050, L100.0100, L501.5200 ####[facility] [address] [place], [address] RDW SD 40.2 fl Normal 35.1-43.9 [facility] Comment on above: Performed By: #### L 500.4050, L100.0100, L501.5200 ####[facility] [address] [place], [address] WBC (Bld) [#/Vol] 11.4 10*3/uL High 4.4-11.0 [facility] Comment on above: Performed By: #### L 500.4050, L100.0100, L501.5200 ####[facility] [address] [place], [address] Comprehensive Metabolic Prof txon 03-07-2025 Albumin [Mass/Vol] 4.2 g/dL Normal 3.5-5.0 [facility] Comment on above: Performed By: #### L 500.4050, L100.0100, L501.5200 ####[facility] [address] [place], [address] Albumin/Globulin [Mass ratio] 1.4 {ratio} Normal 0.9-2.4 [facility] Comment on above: Performed By: #### L 500.4050, L100.0100, L501.5200 ####[facility] [address] [place], [address] ALK PHOS 62 U/L Normal 35-104 [facility] Comment on above: Performed By: #### L 500.4050, L100.0100, L501.5200 ####[facility] [address] [place], [address] ALT [Catalytic activity/Vol] 23 U/L Normal <=34 [facility] Comment on above: Performed By: #### L 500.4050, L100.0100, L501.5200 ####[facility] [address] [place], [address] AST [Catalytic activity/Vol] 15 U/L Normal <=31 [facility] Comment on above: Performed By: #### L 500.4050, L100.0100, L501.5200 ####[facility] [address] [place], [address] Bilirubin [Mass/Vol] 0.26 mg/dL Normal 0.00-1.30 [facility] Comment on above: Performed By: #### L 500.4050, L100.0100, L501.5200 ####[facility] [address] [place], [address] BUN/CRE 29.6 RATIO High 10-20 [facility] Comment on above: Performed By: #### L 500.4050, L100.0100, L501.5200 ####[facility] [address] [place], [address] Calcium [Mass/Vol] 9.4 mg/dL Normal 7.6-11.0 [facility] Comment on above: Performed By: #### L 500.4050, L100.0100, L501.5200 ####[facility] [address] [place], [address] Chloride [Moles/Vol] 105 mmol/L Normal 98-108 [facility] Comment on above: Performed By: #### L 500.4050, L100.0100, L501.5200 ####[facility] [address] [place], [address] CO2 [Moles/Vol] 19.9 mmol/L Low 21.0-32.0 [facility] Comment on above: Performed By: #### L 500.4050, L100.0100, L501.5200 ####[facility] [address] [place], [address] Creatinine [Mass/Vol] 0.53 mg/dL Low 0.70-1.20 [facility] Comment on above: Performed By: #### L 500.4050, L100.0100, L501.5200 ####[facility] [address] [place], [address] ECRCL 140.71 ml/min Normal 50-250 [facility] Comment on above: Performed By: #### L 500.4050, L100.0100, L501.5200 ####[facility] [address] [place], [address] GAP 14 Normal 5-15 [facility] Comment on above: Performed By: #### L 500.4050, L100.0100, L501.5200 ####[facility] [address] [place], [address] GFR/1.73 sq M.predicted among non-blacks MDRD (S/P/Bld) [Vol rate/Area] 129 mL/min/{1.73_m2} Normal >60 [facility] Comment on above: Result Comment: mL/m in/1.73m2 CKD-EPI Creatinine Equation (2020) Performed By: #### L 500.4050, L100.0100, L501.5200 ####[facility] [address] [place], [address] Globulin (S) [Mass/Vol] 3.0 g/dL Normal 2.2-4.2 [facility] Comment on above: Performed By: #### L 500.4050, L100.0100, L501.5200 ####[facility] [address] [place], [address] Glucose [Mass/Vol] 160 mg/dL High 70-99 [facility] Comment on above: Performed By: #### L 500.4050, L100.0100, L501.5200 ####[facility] [address] [place], [address] Potassium [Moles/Vol] 3.9 mmol/L Normal 3.3-5.1 [facility] Comment on above: Performed By: #### L 500.4050, L100.0100, L501.5200 ####[facility] [address] [place], [address] Sodium [Moles/Vol] 138 mmol/L Normal 133-145 [facility] Comment on above: Performed By: #### L 500.4050, L100.0100, L501.5200 ####[facility] [address] [place], [address] T PROT 7.2 g/dL Normal 5.9-8.4 [facility] Comment on above: Performed By: #### L 500.4050, L100.0100, L501.5200 ####[facility] [address] [place], [address] Urea nitrogen [Mass/Vol] 16 mg/dL Normal 4-19 [facility] Comment on above: Performed By: #### L 500.4050, L100.0100, L501.5200 ####[facility] [address] [place], [address] Magnesiumon 03-07-2025 Magnesium [Mass/Vol] 2.0 mg/dL Normal 1.5-2.2 [facility] Comment on above: Performed By: #### L 500.4050, L100.0100, L501.5200 ####[facility] [address] [place], [address] ,Urineon 03-07-2025 Beta HCG ( test) Ql (U) Negative Normal [facility] Comment on above: Result Comment: Very dilute urine specimens, as indicated by a low specific gravity, may not contain medical detail representative levels of hCG. If is still suspected, a first morning urine specimen should be collected 48 hours later and tested. Performed By: #### L 501.2300 #### [facility] Laboratory [address] [place], [address] Urine testOrdered By: Sheila Eubanks on 03-07-2025 HCG ( test) Ql (U) Negative [facility] Comment on above: Very dilute urine sp ecimens, as indicated by a low specificgravity, may not contain medical detail representative levels of hCG. If is still suspected, a first morning urinespecimen should be collected 48 hours later and tested. Oncology Visit Reporton 02-07 Oncology Visit Report [facility] [address] 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 January 25, [...] spouse for chemotherapy education to discuss TCHP. [facility] Medical History (Updated 02/28/25 @ 17:[address] LIAISON, COURT LIAISON-C) Encounter for education Wears glasses Non-smoker Shortness [...] Axillary l (more content not included)... Normal [facility] Surgery Visit Reporton 02-28 Surgery Visit Report [facility] [address] [place] [address] OFFICE VISIT Date of Service: 02/28/25 MR#: [id number] Acct: [id number] Name: SHAUNA RAINEY Rep #: [id number] : 1995 Provider: Dr. Tamiko aguero MD Age/Sex: 29/F Location: [facility] Status: Signed Intake Vital Signs 02/13/25 06:48 [...] fitting and adjustment of vascular catheter Z45.2 [facility] Medical History (Updated 03/02/25 @ 08:21 by [...] Cosigner Signature: Date (if applicable) CC: Normal [facility] CT Chest, Abd, Pel w/Contras ton 02-21-2025 CT Chest, Abd, Pel w/Contrast [facility] Imaging Services [address] [place] [address] [address] [address] Chest, Abd, Pel w/Contrast MR#: [id number] Acct: [id number] Name: SHAUNA RAINEY Rep #: [id number] : 1995 F 29 From: Aquilino randhawa MD PCP: YENNI Hartman Status: REG CLI Study: CT Chest, Abd, Pel w/Contrast Date of Exam: Exam# [id number] Ordering Dr: Sheila Eubanks COURT LIAISON COURT LIAISON -C PROCEDURE: CT CHEST, ABD, PEL W/CONTRAST [...] prominent on the left side. Reading Location: [place] [address] CC: ROBERT Eubanks; YENNI Hartman Build Engineer: Signed Normal [facility] GENETIC SENDOUTon 02-21-2025 Genetic Test Name Custom Panel Normal [facility] Comment on above: Order Comment: Name of Test:->Custom Panel Billing type:->Direct Specimen Type->Blood Specimen requirements:->3 ml in edta and 1.5 ml in pax What is the sendout facility name, if known?->[facility] Normal [facility] Comment on above: Order Comment: Name of Test:->Custom Panel Billing type:->Direct Specimen Type->Blood Specimen requirements:->3 ml in edta and 1.5 ml in pax What is the sendout facility name, if known?->[facility] Miscellaneous Results Patient results sc anned into [facility] Comment on above: Order Comment: Name of Test:->Custom Panel Billing type:->Direct Specimen Type->Blood Specimen requirements:->3 ml in edta and 1.5 ml in pax What is the sendout facility name, if known?->[facility] Bone Scan Whole Bodyon 02-14 Bone Scan Whole Body [facility] Imaging Services [address] [place], [place] [id number] Bone Scan Whole Body MR#: [id number] Acct: [id number] Name: SHAUNA RAINEY Rep #: [id number] : 1995 F 29 From: Figueroa Hernández PCP: YENNI Hartman Status: REG CLI Study: Bone Scan Whole Body Date of Exam: 02/14/25 Exam# [id number] Ordering Dr: Sheila Eubanks NP, NP -Gurdeep [...] evidence of osseous metastatic disease. Reading Location: [address] CC: COURT LIAISONWilli Eubanks; YENNI Hartman Build Engineer: Signed Normal [facility] Chest 1 View (Portable)on Chest 1 View (Portable) [facility] Imaging Services [address] [facility] [place] [place] [address] Chest 1 View (Portable) MR#: [id number] Acct: [id number] Name: SHAUNA RAINEY Rep #: [id number] : 1995 F 29 From: Figueroa Hernández PCP: YENNI Hartman Status: REG [facility] Study: Chest 1 View (Portable) Date of Exam: 02/13/25 Exam# [id number] Ordering Dr: Tamiko Mccarthy MD PROCEDURE: CHEST [...] acute osseous change is seen. Reading Location: [address] CC: Dr. Tamiko Mccarthy MD; YENNI Hartman Build Engineer: Signed Normal [facility] Discharge Instructionon Discharge Instruction [facility] Medical Records Department [address] [place] [address] Instructions for Home/Discharge Instructions 02/13/25 0824 MR#: [id number] Acct: [id number] Name: SHAUNA RAINEY Rep #: [id number] : 1995 29 From: Tamiko Mccarthy MD PCP: YENNI Hartman Status:REG [facility] Discharge Instructions Procedure Port-A-Cath Diet Discharge Diet: [...] Care Provider: Ryan Cochran Instructions Print Language: Greek Discharge Orders/Prescriptions Prescriptions: New oxycodone 5 mg [...] Tamiko Mccarthy MD CC: YENNI Hartman Signed [facility] MR/POSTOP.[facility] 02-13-2025 MR/POSTOP.[facility] Medical Records Department [address] [place] [address] Anesthesia Postop Eval I 02/13/25829 MR#: [id number] Acct: [id number] Name: SHAUNA RAINEY Rep #: [id number] : 1995 29 From: Bonnie Ray CRNA PCP: YENNI Hartman Status:REG UTC Y Race: C Location: [place] [address] Anesthesia: Postop Eval I Current Vital Signs [...] Bonnie Valemartindamien Signature: Date CC: Signed Normal [facility] Operative Reporton 5 Operative Report [facility] Medical Records Department [address] [place] [address] Operative Report 02/13/25821 MR#: [id number] Acct: [id number] Name: SHAUNA RAINEY Rep #: [id number] : 1995 29 From: Tamiko Mccarthy MD PCP: YENNI Hartman Status:[facility] Location: [facility] Operative Report (Standard) Operative Information Date of Procedure: 02/13/25 Pre-Operative Diagnosis: Z45.2, left breast cancer Post-Operative Diagnosis: Same Surgery/Procedure Performed: Placement of right IJ Port-A-Cath Use of ultrasound 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 6Fr Lot Lot [id number] Special Medications: Ancef 2 g IV x [...] Tamiko Mccarthy MD; YENNI Hartman Signed Normal [facility] ,Urineon 02-13-2025 Beta HCG ( test) Ql (U) Negative Normal [facility] Comment on above: Result Comment: Very dilute urine specimens, as indicated by a low specific gravity, may not contain medical detail representative levels of hCG. If is still suspected, a first morning urine specimen should be collected 48 hours later and tested. Performed By: #### L 501.2300 #### [facility] Laboratory [address] [facility] [place], [address] Urine testOrdered By: Sunil Anderson on 02-13-2025 HCG ( test) Ql (U) Negative [facility] Comment on above: Very dilute urine sp ecimens, as indicated by a low specificgravity, may not contain medical detail representative levels of hCG. If is still suspected, a first morning urinespecimen should be collected 48 hours later and tested. Echocardiogram study reportO rdered By: Jayjay Mccabe on 02-08-2025 Study report [facility] [address] [place] [address] ONC Echo Complete 02/08/25 1318 MR#: [id number] Acct: [id number] Name: SHAUNA RAINEY Rep #:[id number] : 1995 29 From: Jayjay Hernández [...] Date Dictated: 02/08/25 1318 Date Transcribed: 02/08/251444 Build Engineer: Signed [facility] Work Phone: ONC Echo Completeon 02-09-20 ONC Echo Complete [facility] [address] [place] [address] ONC Echo Complete 02/08/258 MR#: [id number] Acct: [id number] Name: SHAUNA RAINEY Rep #: [id number] : 1995 29 From: Jayjay Mccabe MD Attending Dr: Dr. Ara Franklin MD Status: REG CLI Ordering Dr: Ara Franklin MD Date: 02/08/25 Location: [facility] Sex: F C Admitted: Reason For Study [...] Sonal Payan and Student 02/08/25 1445 Date Jayjay Mccabe MD CC: Dr. Ara Franklin MD; YENNI Hartman Date Dictated: 02/08/25 1318 Date Transcribed: 02/08/25 144 Build Engineer: Signed Normal [facility] Plastic Surgery Visit Report on 02-08-2025 Plastic Surgery Visit Report [facility] [address] [place] [address] OFFICE VISIT Date of Service: 02/08/25 MR#: [id number] Acct: [id number] Name: SHAUNA RAINEY Rep #: [id number] : 1995 Provider: Dr. 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 Normal [facility] Breast Limited Unilateralon 01-31-2025 Breast Limited Unilateral [facility] Imaging Services [address] [place] [address] Breast Limited Unilateral MR#: [id number] Acct: [id number] Name: SHAUNA RAINEY Rep #: [id number] : 1995 F 29 From: Renetta Garcia MD PCP: YENNI Hartman Status: REG CLI Study: Breast Limited Unilateral Date of Exam: Exam# [id number] Ordering Dr: Tamiko Mccarthy MD PROCEDURE: BREAST [...] the biopsy-proven left breast malignancy. Reading Location: [id number] CC: Dr. Tamiko Mccarthy MD; YENNI Hartman Build Engineer: Signed Normal [facility] Absolute lymphocyte countOrd ered By: [facility] Rigoberto on 01-29-2025 Lymphocytes Auto (Unsp spec) [#/Vol] 2.30 10*3/uL 0.83-4.51 [facility] Absolute neutrophil countOrd ered By: [facility] Rigoberto on 01-29-2025 Neutrophils (Bld) [#/Vol] 3.6 10*3/uL 2.0-7.7 [facility] Anion gap in Serum or Plasma [facility]: [facility] on 01-29-2025 Anion gap [Moles/Vol] 12 mmol/L 5-15 [facility] Automated lymphocyte count a s percentage of total leukocytesOrdered By: [facility] Rigoberto on 01-29-2025 Lymphocytes/100 WBC Auto (Unsp spec) 33.7 % 19-41 [facility] BUN/creatinine ratioOrdered By: [facility] Rigoberto on 01-29-2025 Urea nitrogen/Creatinine [Mass ratio] 25.6 mg/mg High 10-20 [facility] Basophil percentageOrdered B y: [facility] Franklin on 01-29-2025 Basophils/100 WBC (Bld) 0.9 % 0-1 [facility] [facility] Bilirubin, totalOrdered By: [facility] on 01-29-2025 Bilirubin [Mass/Vol] 0.36 mg/dL 0.00-1.30 [facility] CBC W/Diff, Automatedon 01-08 3-2024 Absolute Lymph 2.30 X10 3/uL Normal 0.83-4.51 [facility] Comment on above: Performed By: #### L 100.9950, L503.6030, L500.4050, L503.6550, L100.0100, L503.0106 ####[facility] [address] [place], [address] Absolute Neut 3.6 X10 3/uL Normal 2.0-7.7 [facility] Comment on above: Performed By: #### L 100.9950, L503.6030, L500.4050, L503.6550, L100.0100, L503.0106 ####[facility] [address] [place], [address] Basophils/100 WBC (Bld) 0.9 % Normal 0-1 [facility] Comment on above: Performed By: #### L 100.9950, L503.6030, L500.4050, L503.6550, L100.0100, L503.0106 ####[facility] [address] [place], [address] Eosinophils/100 WBC (Bld) 4.7 % Normal 0-5 [facility] Comment on above: Performed By: #### L 100.9950, L503.6030, L500.4050, L503.6550, L100.0100, L503.0106 ####[facility] [address] [place], [address] Erythrocyte distribution width (RBC) [Ratio] 12.9 % Normal 11.6-14.6 [facility] Comment on above: Performed By: #### L 100.9950, L503.6030, L500.4050, L503.6550, L100.0100, L503.0106 ####[facility] [address] [place], [address] Hematocrit (Bld) [Volume fraction] 39.7 % Normal 37-47 [facility] Comment on above: Performed By: #### L 100.9950, L503.6030, L500.4050, L503.6550, L100.0100, L503.0106 ####[facility] [address] [place], [address] Hemoglobin (Bld) [Mass/Vol] 13.2 g/dL Normal 12.0-15.0 [facility] Comment on above: Performed By: #### L 100.9950, L503.6030, L500.4050, L503.6550, L100.0100, L503.0106 ####[facility] [address] [place], [address] IG% 0.300 Normal 0.0-0.9 [facility] Comment on above: Result Comment: IG% - Immature Granulocytes (promyelocytes, myelocytes and metamyelocytes) > 1% indicates that a LEFT SHIFT is Present. Performed By: #### L 100.9950, L503.6030, L500.4050, L503.6550, L100.0100, L503.0106 ####[facility] [address] [facility] [place], [address] Lymphocytes/100 WBC (Bld) 33.7 % Normal 19-41 [facility] Comment on above: Performed By: #### L 100.9950, L503.6030, L500.4050, L503.6550, L100.0100, L503.0106 ####[facility] [address] [place], [address] MCH (RBC) [Entitic mass] 29.7 pg Normal 27.0-32.0 [facility] Comment on above: Performed By: #### L 100.9950, L503.6030, L500.4050, L503.6550, L100.0100, L503.0106 ####[facility] [address] [place], [address] MCHC (RBC) [Mass/Vol] 33.2 g/dL Normal 32-36 [facility] Comment on above: Performed By: #### L 100.9950, L503.6030, L500.4050, L503.6550, L100.0100, L503.0106 ####[facility] [address] [place], [address] MCV (RBC) [Entitic vol] 89.2 fL Normal 81-99 [facility] Comment on above: Performed By: #### L 100.9950, L503.6030, L500.4050, L503.6550, L100.0100, L503.0106 ####[facility] [address] [place], [address] Monocytes/100 WBC (Bld) 7.8 % Normal 0-10 [facility] Comment on above: Performed By: #### L 100.9950, L503.6030, L500.4050, L503.6550, L100.0100, L503.0106 ####[facility] [address] [place], [address] Neutrophils/100 WBC (Bld) 52.6 % Normal 47-70 [facility] Comment on above: Performed By: #### L 100.9950, L503.6030, L500.4050, L503.6550, L100.0100, L503.0106 ####[facility] [address] [place], [address] Nucleated RBC (Bld) [#/Vol] 0 10*3/uL Normal 0-5 [facility] Comment on above: Performed By: #### L 100.9950, L503.6030, L500.4050, L503.6550, L100.0100, L503.0106 ####[facility] [address] [place], [address] Platelet mean volume (Bld) [Entitic vol] 9.1 fL Normal 6.2-12.0 [facility] Comment on above: Performed By: #### L 100.9950, L503.6030, L500.4050, L503.6550, L100.0100, L503.0106 ####[facility] [address] [place], [address] Platelets (Bld) [#/Vol] 264 10*3/uL Normal 150-450 [facility] Comment on above: Performed By: #### L 100.9950, L503.6030, L500.4050, L503.6550, L100.0100, L503.0106 ####[facility] [address] [place], [address] RBC (Bld) [#/Vol] 4.45 10*6/uL Normal 4.2-5.4 [facility] Comment on above: Performed By: #### L 100.9950, L503.6030, L500.4050, L503.6550, L100.0100, L503.0106 ####[facility] [address] [place], [address] RDW SD 42.3 fl Normal 35.1-43.9 [facility] Comment on above: Performed By: #### L 100.9950, L503.6030, L500.4050, L503.6550, L100.0100, L503.0106 ####[facility] [address] [place], [address] WBC (Bld) [#/Vol] 6.8 10*3/uL Normal 4.4-11.0 [facility] Comment on above: Performed By: #### L 100.9950, L503.6030, L500.4050, L503.6550, L100.0100, L503.0106 ####[facility] [address] [place], [address] Carbon dioxide, total [Moles /volume] in Central venous bloodOrdered By: Ara Franklin on 01-29-2025 CO2 [Moles/Vol] 24.0 mmol/L 21.0-32.0 [facility] Chloride assayOrdered By: Huong Franklin on 01-29-2025 Chloride [Moles/Vol] 103 mmol/L 98-108 [facility] Comprehensive Metabolic Prof ilon 01-29-2025 Albumin [Mass/Vol] 4.3 g/dL Normal 3.5-5.0 [facility] Comment on above: Performed By: #### L 100.9950, L503.6030, L500.4050, L503.6550, L100.0100, L503.0106 ####[facility] [address] [place], [address] Albumin/Globulin [Mass ratio] 1.5 {ratio} Normal 0.9-2.4 [facility] Comment on above: Performed By: #### L 100.9950, L503.6030, L500.4050, L503.6550, L100.0100, L503.0106 ####[facility] [address] [place], [address] ALK PHOS 68 U/L Normal 35-104 [facility] Comment on above: Performed By: #### L 100.9950, L503.6030, L500.4050, L503.6550, L100.0100, L503.0106 ####[facility] [address] [place], [address] ALT [Catalytic activity/Vol] 24 U/L Normal <=34 [facility] Comment on above: Performed By: #### L 100.9950, L503.6030, L500.4050, L503.6550, L100.0100, L503.0106 ####[facility] [address] [place], [address] AST [Catalytic activity/Vol] 19 U/L Normal <=31 [facility] Comment on above: Performed By: #### L 100.9950, L503.6030, L500.4050, L503.6550, L100.0100, L503.0106 ####[facility] [address] [place], [address] Bilirubin [Mass/Vol] 0.36 mg/dL Normal 0.00-1.30 [facility] Comment on above: Performed By: #### L 100.9950, L503.6030, L500.4050, L503.6550, L100.0100, L503.0106 ####[facility] [address] [place], [address] BUN/CRE 25.6 RATIO High 10-20 [facility] Comment on above: Performed By: #### L 100.9950, L503.6030, L500.4050, L503.6550, L100.0100, L503.0106 ####[facility] [address] [place], [address] Calcium [Mass/Vol] 9.3 mg/dL Normal 7.6-11.0 [facility] Comment on above: Performed By: #### L 100.9950, L503.6030, L500.4050, L503.6550, L100.0100, L503.0106 ####[facility] [address] [place], [address] Chloride [Moles/Vol] 103 mmol/L Normal 98-108 [facility] Comment on above: Performed By: #### L 100.9950, L503.6030, L500.4050, L503.6550, L100.0100, L503.0106 ####[facility] [address] [place], [address] CO2 [Moles/Vol] 24.0 mmol/L Normal 21.0-32.0 [facility] Comment on above: Performed By: #### L 100.9950, L503.6030, L500.4050, L503.6550, L100.0100, L503.0106 ####[facility] [address] [place], [address] Creatinine [Mass/Vol] 0.61 mg/dL Low 0.70-1.20 [facility] Comment on above: Performed By: #### L 100.9950, L503.6030, L500.4050, L503.6550, L100.0100, L503.0106 ####[facility] [address] [place], [address] GAP 12 Normal 5-15 [facility] Comment on above: Performed By: #### L 100.9950, L503.6030, L500.4050, L503.6550, L100.0100, L503.0106 ####[facility] [address] [place], [address] GFR/1.73 sq M.predicted among non-blacks MDRD (S/P/Bld) [Vol rate/Area] 125 mL/min/{1.73_m2} Normal >60 [facility] Comment on above: Result Comment: mL/m in/1.73m2 CKD-EPI Creatinine Equation (2020) Performed By: #### L 100.9950, L503.6030, L500.4050, L503.6550, L100.0100, L503.0106 ####[facility] [address] [place], [address] Globulin (S) [Mass/Vol] 2.9 g/dL Normal 2.2-4.2 [facility] Comment on above: Performed By: #### L 100.9950, L503.6030, L500.4050, L503.6550, L100.0100, L503.0106 ####[facility] [address] [place], [address] Glucose [Mass/Vol] 92 mg/dL Normal 70-99 [facility] Comment on above: Performed By: #### L 100.9950, L503.6030, L500.4050, L503.6550, L100.0100, L503.0106 ####[facility] [address] [place], [address] Potassium [Moles/Vol] 3.8 mmol/L Normal 3.3-5.1 [facility] Comment on above: Performed By: #### L 100.9950, L503.6030, L500.4050, L503.6550, L100.0100, L503.0106 ####[facility] [address] [place], [address] Sodium [Moles/Vol] 139 mmol/L Normal 133-145 [facility] Comment on above: Performed By: #### L 100.9950, L503.6030, L500.4050, L503.6550, L100.0100, L503.0106 ####[facility] [address] [place], [address] T PROT 7.2 g/dL Normal 5.9-8.4 [facility] Comment on above: Performed By: #### L 100.9950, L503.6030, L500.4050, L503.6550, L100.0100, L503.0106 ####[facility] [address] [place], [address] Urea nitrogen [Mass/Vol] 16 mg/dL Normal 4-19 [facility] Comment on above: Performed By: #### L 100.9950, L503.6030, L500.4050, L503.6550, L100.0100, L503.0106 ####[facility] [address] [place], [place], [address] Eosinophil percentageOrdered By: Ara Franklin on 01-29-2025 Eosinophils/100 WBC (Bld) 4.7 % 0-5 [facility] Erythrocyte distribution wid th ratioOrdered By: Ara Franklin on 01-29-2025 Erythrocyte distribution width (RBC) [Ratio] 12.9 % 11.6-14.6 [facility] Erythrocyte distribution wid th standard deviationOrdered By: [facility] on 01-29-2025 Erythrocyte distribution width (RBC) [Ratio] 42.3 fl 35.1-43.9 [facility] Ferritinon 01-29-2025 Ferritin [Mass/Vol] 62 ng/mL Normal 22-378 [facility] Comment on above: Performed By: #### L 100.9950, L503.6030, L500.4050, L503.6550, L100.0100, L503.0106 ####[facility] [address] [place], [place], [id number] Glomerular filtration rate ( GFR) estimation/1.73 sq m using serum, plasma, or whole bOrdered By: Ara Franklin on 01-29-2025 GFR/1.73 sq M.predicted among non-blacks MDRD (S/P/Bld) [Vol rate/Area] 125 mL/min/{1.73_m2} >60 [facility] Comment on above: mL/min/1.73m2 CKD-EP I Creatinine Equation (2020) Hematocrit Auto (Bld) [Volum e fraction]Ordered By: Ara Franklin on 01-29-2025 Hematocrit (Bld) [Volume fraction] 39.7 % 37-47 [facility] Hemoglobin measurementOrdere d By: Ara Franklin on 01-29-2025 Hemoglobin (Bld) [Mass/Vol] 13.2 g/dL 12.0-15.0 [facility] Immature granulocytes/100 WB C Auto (Bld)Ordered By: Ara Franklin on 01-29-2025 Immature granulocytes/100 WBC (Bld) 0.300 % 0.0-0.9 [facility] Comment on above: IG% - Immature Granu locytes (promyelocytes, myelocytes and metamyelocytes) > 1% indicates that a LEFT SHIFT is Present. Iron measurement (mass/mass) Ordered By: Ara Franklin on 01-29-2025 Iron (Unsp spec) [Mass/Mass] 92 ug/dL 50-170 [facility] Iron+Iron Binding Capacityon 01-29-2025 Iron [Mass/Vol] 92 ug/dL Normal 50-170 [facility] Comment on above: Performed By: #### L 100.9950, L503.6030, L500.4050, L503.6550, L100.0100, L503.0106 ####[facility] [address] [place], [address] IRON SATURATION 33.0 Normal 13-59 [facility] Comment on above: Performed By: #### L 100.9950, L503.6030, L500.4050, L503.6550, L100.0100, L503.0106 ####[facility] [address] [place], [address] TIBC 279 ug/dL Normal 250-450 [facility] Comment on above: Performed By: #### L 100.9950, L503.6030, L500.4050, L503.6550, L100.0100, L503.0106 ####[facility] [address] [place], [address] UIBC 187 ug/dL Low 228-428 [facility] Comment on above: Performed By: #### L 100.9950, L503.6030, L500.4050, L503.6550, L100.0100, L503.0106 ####[facility] [address] [place], [address] Laboratory - Chemistry and C hemistry - challengeOrdered By: Ara Franklin on 01-29-2025 AST [Catalytic activity/Vol] 19 U/L <32 [facility] MCV (mean corpuscular volume ) determinationOrdered By: Ara Rigoberto on 01-29-2025 MCV (RBC) [Entitic vol] 89.2 fL 81-99 [facility] Magnetic resonance imaging r eportOrdered By: Kristen Del Cid on 01-29-2025 Study report [facility] Imaging Services [address] [place] [address] Breast Bilateral W/O and W MR#: [id number] Acct: [id number] Name: SHAUNA RAINEY Rep #: [id number] : 1995 F 29 From: Leodan Del Cid DO PCP: YENNI Hartman Status: REG CLI Study:Breast Bilateral W/O and W Date of Exam : 01/25/25 Exam# [id number] Ordering Dr: Tamiko Mccarthy MD PROCEDURE: BREAST [...] the right breast is recommended. Reading Location: [id number] CC: Dr. Tamiko Mccarthy MD; YENNI Hartman ~ Build Engineer: Signed [facility] Mean corpuscular hemoglobin (MCH) determinationOrdered By: [facility] Rigoberto on 01-29-2025 MCH (RBC) [Entitic mass] 29.7 pg 27.0-32.0 [facility] Mean corpuscular hemoglobin concentration (MCHC) determinationOrdered By: [facility] Rigboerto on 01-29-2025 MCHC (RBC) [Mass/Vol] 33.2 g/dL 32-36 [facility] Mean platelet volume determi nationOrdered By: Ara Franklin on 01-29-2025 Platelet mean volume (Bld) [Entitic vol] 9.1 fL 6.2-12.0 [facility] Monocyte percentageOrdered B y: Ara Franklin on 01-29-2025 Monocytes/100 WBC (Bld) 7.8 % 0-10 [facility] Neutrophil percentageOrdered By: [facility] Rigoberto on 01-29-2025 Neutrophils/100 WBC (Bld) 52.6 % 47-70 [facility] No Panel InformationOrdered By: Ara Franklin on 01-29-2025 Unsaturated Iron Binding Capacity 187 ug/dL Low 228-428 [facility] Nucleated red blood cell per centageOrdered By: [facility] Rig[facility]to on 01-29-2025 Nucleated RBC/100 WBC (Bld) [Ratio] 0 % 0-5 [facility] Oncology Visit Reporton 01-08 Oncology Visit Report [facility] [address] [place] [address] OFFICE VISIT Date of Service: 01/29/25 1515 MR#: [id number] Acct: [id number] Name: SHAUNA RAINEY Rep #: [id number] : 1995 From: Ara Franklin MD Age/Sex: 29/F Location[facility] Status: Signed HPI Subjective Date of [...] and DCIS. The cancer is ER negative, DE negative and HER2/camlia overexpressed 3+. January 25, 2025 breast MRI: [...] BI-RADS 6: KNOWN BIOPSY-PROVEN MALIGNANCY. [facility] Medical History (Updated 01/29/25 @ 16:03 by [...] Temperature Source (more content not included)... Normal [facility] Platelet countOrdered By: Huong Franklin on 01-29-2025 Platelets (Bld) [#/Vol] 264 10*3/uL 150-450 [facility] Potassium measurement (mass/ volume)Ordered By: Ara Franklin on 01-29-2025 Potassium (Unsp spec) [Mass/Vol] 3.8 mmol/L 3.3-5.1 [facility] RBC Auto (Bld) [#/Vol]Ordere d By: Ara Franklin on 01-29-2025 RBC (Bld) [#/Vol] 4.45 10*6/uL 4.2-5.4 [facility] Retic Panelon 01-29-2025 IM RET FRACTION 5.10 Normal 3.00-15.90 [facility] Comment on above: Performed By: #### L 100.9950, L503.6030, L500.4050, L503.6550, L100.0100, L503.0106 ####[facility] [address] [place], [place], [id number] RET-HE 33.6 pg Normal 30-35 [facility] Comment on above: Performed By: #### L 100.9950, L503.6030, L500.4050, L503.6550, L100.0100, L503.0106 ####[facility] [address] [place], [place], [address] Retic Count 1.49 Normal 0.5-1.5 [facility] Comment on above: Performed By: #### L 100.9950, L503.6030, L500.4050, L503.6550, L100.0100, L503.0106 ####[facility] [address] [place], [place], [address] Reticulocyte hemoglobin equi valent (RET-He) measurementOrdered By: Ara Franklin on 01-29-2025 Hemoglobin (Reticulocytes) [Entitic mass] 33.6 pg 30-35 [facility] Reticulocytes Auto (Bld) [#/ Vol]Ordered By: Ara Franklin on 01-29-2025 Reticulocytes/100 RBC (Bld) 1.49 % 0.5-1.5 [facility] Serum creatinine measurement (mass/volume)Ordered By: Ara Franklin on 01-29-2025 Creatinine [Mass/Vol] 0.61 mg/dL Low 0.70-1.20 [facility] Serum globulin measurementOr dered By: Ara Franklin on 01-29-2025 Globulin (S) [Mass/Vol] 2.9 g/dL 2.2-4.2 [facility] Serum glucose measurement (m ass/volume)Ordered By: Ara Franklin on 01-29-2025 Glucose [Mass/Vol] 92 mg/dL 70-99 [facility] Serum or plasma alanine mcdonald otransferase (ALT) measurementOrdered By: Ara Franklin on 01-29-2025 ALT [Catalytic activity/Vol] 24 U/L <35 [facility] Serum or plasma albumin ernestine urement (mass/volume)Ordered By: Ara Franklin on 01-29-2025 Albumin [Mass/Vol] 4.3 g/dL 3.5-5.0 [facility] Serum or plasma albumin/glob ulin mass ratioOrdered By: Ara Franklin on 01-29-2025 Albumin/Globulin [Mass ratio] 1.5 {ratio} 0.9-2.4 [facility] Serum or plasma alkaline chuckie sphatase measurementOrdered By: Ara Franklin on 01-29-2025 ALP [Catalytic activity/Vol] 68 U/L 35-104 [facility] Serum or plasma calcium ernestine urement (mass/volume)Ordered By: Ara Franklin on 01-29-2025 Calcium [Mass/Vol] 9.3 mg/dL 7.6-11.0 [facility] Serum or plasma ferritin ольга surement (mass/volume)Ordered By: Ara Franklin on 01-29-2025 Ferritin [Mass/Vol] 62 ng/mL 22-378 [facility] Serum or plasma iron saturat ion measurement (mass fraction)Ordered By: Ara Franklin on 01-29-2025 Iron saturation [Mass fraction] 33.0 % 13-59 [facility] Serum or plasma urea nitroge n measurement (mass/volume)Ordered By: Ara Franklin on 01-29-2025 Urea nitrogen [Mass/Vol] 16 mg/dL 4-19 [facility] Sodium levelOrdered By: Marlys chaparro Rigoberto on 01-29-2025 Sodium [Moles/Vol] 139 mmol/L 133-145 [facility] Total proteinOrdered By: Andrés rhodes Rigoberto on 01-29-2025 Protein [Mass/Vol] 7.2 g/dL 5.9-8.4 [facility] Vitamin B12on 01-29-2025 Cobalamin (Vitamin B12) [Mass/Vol] 565 pg/mL Normal 180-914 [facility] Comment on above: Performed By: #### L 100.9950, L503.6030, L500.4050, L503.6550, L100.0100, L503.0106 ####[facility] [address] [facility] [address] [place], [place], [id number] Vitamin B12 ser/plasOrdered By: Ara Rigoberto on 01-29-2025 Cobalamin (Vitamin B12) [Mass/Vol] 565 pg/mL 180-914 [facility] White blood cell (WBC) count Ordered By: Ara Rigoberto on 01-29-2025 WBC (Bld) [#/Vol] 6.8 10*3/uL 4.4-11.0 [facility] Breast Bilateral W/O and Won 01-25-2025 Breast Bilateral W/O and W [facility] Imaging Services [address] [place], [place] [address] Breast Bilateral W/O and W MR#: [id number] Acct: [id number] Name: SHAUNA RAINEY Rep #: [id number] : 1995 F 29 From: Kristen May PCP: YENNI Hartman Status: REG CLI Study: Breast Bilateral W/O and W Date of Exam: 01/25 Exam# [id number] Ordering Dr: Tamiko Mccarthy MD PROCEDURE: BREAST [...] the right breast is recommended. Reading Location: [id number] CC: Dr. Tamiko Mccarthy MD; YENNI Hartman Build Engineer: Signed Normal [facility] Surgery Visit Reporton 01-23 Surgery Visit Report [facility] [address] [place] [address]. [address] [place] [address] OFFICE VISIT Date of Service: 01/23/25 MR#: [id number] Acct: [id number] Name: SHAUNA RAINEY Rep #: [id number] : 1995 Provider: Dr. 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 Ultrasound did not show any abnormal or [...] cooperative, healthy appearing and no acute distress [facility] Head: normal to inspection Chest Other: Breast [...] surgery C (more content not included)... Normal [facility] BI BREAST BIOPSY CLIP IMAGIN Dimitri 01-12-2025 [...] AM -------- ORIGINAL REPORT -------- Dictation workstation: [id number] Interpreted By: Adithya Shaw, STUDY: BI US GUIDED BREAST LOCALIZATION AND BIOPSY LEFT; BI BREAST BIOPSY CLIP IMAGING; 01/12/2025 12:05 pm; 01/12/2025 11:32 am ACCESSION NUMBER(S): [id number]; [id number] ORDERING CLINICIAN: RYAN COCHRAN INDICATION: Left breast [...] Dr. Shaw, a radiology nurse and an surgical scrub technologist were present. PROCEDURE: Scanning of the [...] Adithya Shaw 01/12/2025 1:04 PM Dictation workstation: [id number] [facility] BI US GUIDED BREAST LOCALIZA TION [...] AM -------- ORIGINAL REPORT -------- Dictation workstation: [id number] Interpreted By: Adithya Shaw, STUDY: BI US GUIDED BREAST LOCALIZATION AND BIOPSY LEFT; BI BREAST BIOPSY CLIP IMAGING; 01/12/2025 12:05 pm; 01/12/2025 11:32 am ACCESSION NUMBER(S): [id number]; [id number] ORDERING CLINICIAN: RYAN COCHRAN INDICATION: Left breast [...] Dr. Shaw, a radiology nurse and an surgical scrub technologist were present. PROCEDURE: Scanning of the [...] Adithya Shaw 01/12/2025 1:04 PM Dictation workstation: [id number] [facility] MG Breast - unilateral Singl e view for clip placementon 01-12-2025 Radiology Study observation (narrative) [facility] Work Phone: No Panel Informationon 01-12 Status post ultrasou nd guided core needle biopsy of 3 left breast masses followed by tissue marker placement. Pathology is pending. POST PROCEDURE MAMMOGRAM FOR MARKER PLACEMENT. MACRO: None Signed by: Adithya Shaw 01/12/2025 1:04 PM Dictation workstation: [id number] [facility] Interpreted By: Adithya Huertas, STUDY: BI US GUIDED BREAST LOCALIZATION AND BIOPSY LEFT; BI BREAST BIOPSY CLIP IMAGING; 01/12/2025 12:05 pm; 01/12/2025 11:32 am ACCESSION NUMBER(S): [id number]; [id number] ORDERING CLINICIAN: RYAN COCHRAN INDICATION: Left breast [...] Dr. Shaw, a radiology nurse and an surgical scrub technologist were present. PROCEDURE: Scanning of the [...] 12:05 pm; 01/12/2025 11:32 am ACCESSION NUMBER(S): [id number]; [id number] ORDERING CLINICIAN: RYAN COCHRAN INDICATION: Left breast [...] Dr. Shaw, a radiology nurse and an surgical scrub technologist were present. PROCEDURE: Scanning of the [...] Adithya Shaw 01/12/2025 1:04 PM Dictation workstation: [id number] [facility] Work Phone: No Panel InformationOrdered By: Adithya Shaw on 01-12-2025 [facility] Work Phone: Surgical pathology studyon 0 01-12-2025 Surgical pathology study Pathology report.total SEE COMMENT Surgical Pathology Case: [id number] Authorizing Provider: Ryan Cochran PA-C Collected: 01/12/2025 1139 Ordering Location: [facility] Received: 01/12/2025 1221 Center Pathologist: Tevin Newell [...] (FDA) cleared (test / vendor): Damien CONFIRM anti-(DE) (1E2) Rabbit Monoclonal Primary Anitbody, Damien Multimer [...] (FDA) cleared (test / vendor): Damien CONFIRM anti-(DE) (1E2) Rabbit Monoclonal Primary Anitbody, Damien Multimer [...] Primary Antibody: SP1 (more content not included)... [facility] US Guidance for localization of Breast - lefton 01-12-2025 Radiology Study observation (narrative) [facility] Work Phone: BI MAMMO BILATERAL DIAGNOSTI C TOMOSYNTHESISon 01-10-2025 BI MAMMO BILATERAL DIAGNOSTIC TOMOSYNTHESIS Interpreted By: Adithya Shaw, STUDY: BI MAMMO BILATERAL DIAGNOSTIC TOMOSYNTHESIS; BI US BREAST LIMITED LEFT; 01/10/2025 8:52 am; 01/10/2025 10:45 am ACCESSION NUMBER(S): [id number]; [id number] ORDERING CLINICIAN: RYAN COCHRAN INDICATION: Signs/Symptoms:L breast [...] Adithya Shaw 01/10/2025 11:20 AM Dictation workstation: [id number] [facility] BI US BREAST LIMITED LEFTon 01-10-2025 BI US BREAST LIMITED LEFT Interpreted By: Adithya Shaw, STUDY: BI MAMMO BILATERAL DIAGNOSTIC TOMOSYNTHESIS; BI US BREAST LIMITED LEFT; 01/10/2025 8:52 am; 01/10/2025 10:45 am ACCESSION NUMBER(S): [id number]; [id number] ORDERING CLINICIAN: RYAN COCHRAN INDICATION: Signs/Symptoms:L breast [...] Adithya Shaw 01/10/2025 11:20 AM Dictation workstation: [id number] [address] [facility] DBT Breast - bilateral diagn osticon 01-10-2025 Radiology Study observation (narrative) [facility] Work Phone: No Panel InformationOrdered By: Adithya Shaw on 01-10-2025 Interpretation and review of laboratory results Abnormal [facility] Work Phone: [facility] Work Phone: No Panel Informationon 01-10 Multiple [...] Adithya Shaw 01/10/2025 11:20 AM Dictation workstation: [id number] [facility] Interpreted By: Adithya Huertas, STUDY: BI MAMMO BILATERAL DIAGNOSTIC TOMOSYNTHESIS; BI US BREAST LIMITED LEFT; 01/10/2025 8:52 am; 01/10/2025 10:45 am ACCESSION NUMBER(S): [id number]; [id number] ORDERING CLINICIAN: RYAN COCHRAN INDICATION: Signs/Symptoms:L breast [...] 8:52 am; 01/10/2025 10:45 am ACCESSION NUMBER(S): [id number]; [id number] ORDERING CLINICIAN: RYAN COCHRAN INDICATION: Signs/Symptoms:L breast [...] Adithya Shaw 01/10/2025 11:20 AM Dictation workstation: [id number] [facility] Work Phone: US Breast - left limitedon 0 01-10-2025 Radiology Study observation (narrative) [facility] Work Phone: CBC WITH AUTO DIFFERENTIALon 05-25-2024 AUTO NRBC 0.0 % Normal [facility] Comment on above: Performed By: #### L [id number] #### LAB [address] [address] Ivan Rizvi M.D. [id number] AUTO NRBC ABS COUNT 0.00 K/mcL Normal 0.00-0.00 [facility] Comment on above: Performed By: #### L [id number] #### MH LAB [address] [address] Ivan Rizvi M.D. [id number] BASOPHILS ABSOLUTE COUNT 0.04 K/mcL Normal 0.00-0.30 [facility] Comment on above: Performed By: #### L [id number] #### LAB [address] [address] Ivan Rizvi M.D. [id number] Basophils/100 WBC (Bld) 0.8 % Normal [facility] Comment on above: Performed By: #### L [id number] #### LAB [address] [place] [address] Ivan Rizvi M.D. [id number] Eosinophils (Bld) [#/Vol] 0.33 10*3/uL Normal 0.00-0.50 [facility] Comment on above: Performed By: #### L [id number] #### LAB [address] [place] [address] Ivan Rizvi M.D. [id number] Eosinophils/100 WBC (Bld) 6.7 % Normal [facility] Comment on above: Performed By: #### L [id number] #### LAB [address] [place] [address] Ivan Rizvi M.D. [id number] Erythrocyte distribution width (RBC) [Ratio] 14.8 % Normal 11.6-14.8 [facility] Comment on above: Performed By: #### L [id number] #### LAB [address] [place] [address] Ivan Rizvi M.D. [id number] Hematocrit (Bld) [Volume fraction] 42.0 % Normal 36.0-46.0 [facility] Comment on above: Performed By: #### L [id number] #### LAB [address] [address] Ivan Rizvi M.D. [id number] Hemoglobin (Bld) [Mass/Vol] 13.7 g/dL Normal 12.0-16.0 [facility] Comment on above: Performed By: #### L [id number] #### MH LAB [address] [address] Ivan Rizvi M.D. [id number] IG ABSOLUTE 0.03 K/mcL Normal 0.00-0.30 [facility] Comment on above: Performed By: #### L [id number] #### LAB [address] [address] Ivan Rizvi M.D. [id number] IG PERCENT 0.60 % [facility] Comment on above: Result Comment: The IG parameter is the percentage of metamyelocytes, myelocytes and promyelocytes. An immature granulocyte count (IG) of 1% or more suggests the possibility of infection, an IG count of 3% is very likely related to an infection. Performed By: #### L [id number] #### LAB [address] [address] Ivan Rizvi M.D. [id number] Lymphocytes (Bld) [#/Vol] 1.94 10*3/uL Normal 0.90-4.00 [facility] Comment on above: Performed By: #### L [id number] #### LAB [address] [address] Ivan Rizvi M.D. [id number] Lymphocytes/100 WBC (Bld) 39.6 % Normal [facility] Comment on above: Performed By: #### L [id number] #### LAB [address] [address] Ivan Rizvi M.D. [id number] MCH (RBC) [Entitic mass] 28.8 pg Normal 26.0-34.0 [facility] Comment on above: Performed By: #### L [id number] #### LAB [address] [address] Ivan Rizvi M.D. [id number] MCV (RBC) [Entitic vol] 88.4 fL Normal 80.0-100.0 [facility] Comment on above: Performed By: #### L [id number] #### LAB [address] [address] Ivan Rizvi M.D. [id number] MEAN CORPUSCULAR HEMOGLOBIN CONC 32.6 g/dL Normal 31.0-37.0 [facility] Comment on above: Performed By: #### L [id number] #### LAB [address] [address] Ivan Rizvi M.D. [id number] Monocytes (Bld) [#/Vol] 0.43 10*3/uL Normal 0.30-0.90 [facility] Comment on above: Performed By: #### L [id number] #### LAB [address] [address] Ivan Rizvi M.D. [id number] Monocytes/100 WBC (Bld) 8.8 % Normal [facility] Comment on above: Performed By: #### L [id number] #### LAB [address] [place] [address] Ivan Rizvi M.D. [id number] NEUTROPHILS ABSOLUTE COUNT 2.13 K/mcL Normal 1.70-7.00 [facility] Comment on above: Performed By: #### L [id number] #### LAB [address] [place] [address] Ivan Rizvi M.D. [id number] Neutrophils/100 WBC (Bld) 43.5 % Normal [facility] Comment on above: Performed By: #### L [id number] #### LAB [address] [place] [address] Ivan Rizvi M.D. [id number] Platelet mean volume (Bld) [Entitic vol] 9.8 fL Normal 9.4-12.4 [facility] Comment on above: Performed By: #### L [id number] #### MH LAB [address] [address] Ivan Rizvi M.D. [id number] Platelets (Bld) [#/Vol] 314 10*3/uL Normal 150-400 [facility] Comment on above: Performed By: #### L [id number] #### MH LAB [address] [address] Ivan Rizvi M.D. [id number] RBC (Bld) [#/Vol] 4.75 10*6/uL Normal 4.00-5.20 [facility] Comment on above: Performed By: #### L [id number] #### MH LAB [address] [address] Ivan Rizvi M.D. [id number] WBC (Bld) [#/Vol] 4.90 10*3/uL Normal 4.50-11.00 [facility] Comment on above: Performed By: #### L [id number] #### LAB [address] [address] Ivan Rizvi M.D. [id number] COMPREHENSIVE METABOLIC PANE Colin 05-25-2024 Albumin [Mass/Vol] 3.7 g/dL Normal 3.2-5.2 [facility] Comment on above: Order Comment: [facility] has implemented the eGFR calculation approach that does not have a coefficient for race that conforms to the NKF-ASN Task Force Recommendations. Performed By: #### 4 [id number] #### LAB [address] [address] Ivan Rizvi M.D. [id number] ALP [Catalytic activity/Vol] 70 U/L Normal 40-140 [facility] Comment on above: Order Comment: [facility] has implemented the eGFR calculation approach that does not have a coefficient for race that conforms to the NKF-ASN Task Force Recommendations. Performed By: #### 4 [id number] #### LAB [address] [address] Ivan Rizvi M.D. [id number] ALT [Catalytic activity/Vol] 18 U/L Normal 0-35 U/L [facility] Comment on above: Order Comment: [facility] has implemented the eGFR calculation approach that does not have a coefficient for race that conforms to the NKF-ASN Task Force Recommendations. Performed By: #### 4 [id number] #### LAB [address] [address] Ivan Rizvi M.D. [id number] Anion gap [Moles/Vol] 15 mmol/L Normal 10-20 [facility] Comment on above: Order Comment: [facility] has implemented the eGFR calculation approach that does not have a coefficient for race that conforms to the NKF-ASN Task Force Recommendations. Performed By: #### 4 [id number] #### LAB [address] [address] Ivan Rizvi M.D. [id number] AST [Catalytic activity/Vol] 15 U/L Normal 0-35 U/L [facility] Comment on above: Order Comment: [facility] has implemented the eGFR calculation approach that does not have a coefficient for race that conforms to the NKF-ASN Task Force Recommendations. Performed By: #### 4 [id number] #### LAB [address] [address] Ivan Rizvi M.D. [id number] Bilirubin [Mass/Vol] 0.4 mg/dL Normal 0.0-1.3 [facility] Comment on above: Order Comment: [facility] has implemented the eGFR calculation approach that does not have a coefficient for race that conforms to the NKF-ASN Task Force Recommendations. Performed By: #### 4 [id number] #### LAB [address] [address] Ivan Rizvi M.D. [id number] Calcium [Mass/Vol] 9.1 mg/dL Normal 8.4-10.2 [facility] Comment on above: Order Comment: [facility] has implemented the eGFR calculation approach that does not have a coefficient for race that conforms to the NKF-ASN Task Force Recommendations. Performed By: #### 4 [id number] #### LAB [address] [id number] Ivan Rizvi M.D. [id number] Chloride [Moles/Vol] 104 mmol/L Normal 98-108 [facility] Comment on above: Order Comment: [facility] has implemented the eGFR calculation approach that does not have a coefficient for race that conforms to the NKF-ASN Task Force Recommendations. Performed By: #### 4 [id number] #### LAB [address] [address] Ivan Rizvi M.D. [id number] Creatinine [Mass/Vol] 0.54 mg/dL Normal 0.40-1.10 [facility] Comment on above: Order Comment: [facility] has implemented the eGFR calculation approach that does not have a coefficient for race that conforms to the NKF-ASN Task Force Recommendations. Performed By: #### 4 [id number] #### LAB [address] [address] Ivan Rizvi M.D. [id number] EGFR 130 mL/min/1.73 m2 Normal >=60 [facility] Comment on above: Order Comment: [facility] has implemented the eGFR calculation approach that does not have a coefficient for race that conforms to the NKF-ASN Task Force Recommendations. Result Comment: Oskar mated GFR was calculated using the 2020 CKD-EPI creatinine equation. Performed By: #### 4 [id number] #### LAB [address] [address] Ivan Rizvi M.D. [id number] Glucose [Mass/Vol] 101 mg/dL High 65-99 [facility] Comment on above: Order Comment: [facility] has implemented the eGFR calculation approach that does not have a coefficient for race that conforms to the NKF-ASN Task Force Recommendations. Performed By: #### 4 [id number] #### LAB [address] [address] Ivan Rizvi M.D. [id number] HCO3 (Bld) [Moles/Vol] 23 mmol/L Normal 21-32 [facility] Comment on above: Order Comment: [facility] has implemented the eGFR calculation approach that does not have a coefficient for race that conforms to the NKF-ASN Task Force Recommendations. Performed By: #### 4 [id number] #### LAB [address] [address] Ivan Rizvi M.D. [id number] Potassium [Moles/Vol] 4.1 mmol/L Normal 3.5-5.1 [facility] Comment on above: Order Comment: [facility] has implemented the eGFR calculation approach that does not have a coefficient for race that conforms to the NKF-ASN Task Force Recommendations. Performed By: #### 4 [id number] #### LAB [address] [address] Ivna Rizvi M.D. [id number] Protein [Mass/Vol] 6.5 g/dL Normal 6.0-8.0 [facility] Comment on above: Order Comment: [facility] has implemented the eGFR calculation approach that does not have a coefficient for race that conforms to the NKF-ASN Task Force Recommendations. Performed By: #### 4 [id number] #### LAB [address] [address] Ivan Rizvi M.D. [id number] Sodium [Moles/Vol] 138 mmol/L Normal 135-145 [facility] Comment on above: Order Comment: [facility] has implemented the eGFR calculation approach that does not have a coefficient for race that conforms to the NKF-ASN Task Force Recommendations. Performed By: #### 4 6126 ####MH LAB [address] [address] Ivan Rizvi M.D. [id number] Urea nitrogen [Mass/Vol] 8 mg/dL Normal 8-25 [facility] Comment on above: Order Comment: [facility] has implemented the eGFR calculation approach that does not have a coefficient for race that conforms to the NKF-ASN Task Force Recommendations. Performed By: #### 4 6126 #### LAB [address] [address] Ivan Rizvi M.D. [id number] Urea nitrogen/Creatinine [Mass ratio] 14.8 mg/mg Normal 10.0-20.0 [facility] Comment on above: Order Comment: [facility] has implemented the eGFR calculation approach that does not have a coefficient for race that conforms to the NKF-ASN Task Force Recommendations. Performed By: #### 4 [id number] #### LAB [address] [address] Ivan Rizvi M.D. [id number] CBC WITH AUTO DIFFERENTIALon 05-24-2024 AUTO NRBC 0.0 % [facility] Comment on above: Performed By: #### L [id number] #### LAB [address] [address] Ivan Rizvi M.D. [id number] AUTO NRBC ABS COUNT 0.00 K/mcL Normal 0.00-0.00 [facility] Comment on above: Performed By: #### L [id number] #### LAB [address] [address] Ivan Rizvi M.D. [id number] BASOPHILS ABSOLUTE COUNT 0.05 K/mcL Normal 0.00-0.30 [facility] Comment on above: Performed By: #### L [id number] #### LAB [address] [address] Ivan Rizvi M.D. [id number] Basophils/100 WBC (Bld) 1.0 % [facility] Comment on above: Performed By: #### L [id number] #### LAB [address] [place] [address] Ivan Rizvi M.D. [id number] Eosinophils (Bld) [#/Vol] 0.43 10*3/uL Normal 0.00-0.50 [facility] Comment on above: Performed By: #### L [id number] #### LAB [address] [address] Ivan Rizvi M.D. [id number] Eosinophils/100 WBC (Bld) 8.8 % Normal [facility] Comment on above: Performed By: #### L [id number] #### LAB [address] [address] Ivan Rizvi M.D. [id number] Erythrocyte distribution width (RBC) [Ratio] 15.2 % High 11.6-14.8 [facility] Comment on above: Performed By: #### L [id number] #### LAB [address] [address] Ivan Rizvi M.D. [id number] Hematocrit (Bld) [Volume fraction] 39.6 % Normal 36.0-46.0 [facility] Comment on above: Performed By: #### L [id number] #### LAB [address] [address] Ivan Rizvi M.D. [id number] Hemoglobin (Bld) [Mass/Vol] 12.7 g/dL Normal 12.0-16.0 [facility] Comment on above: Performed By: #### L [id number] #### LAB [address] [address] Ivan Rizvi M.D. [id number] IG ABSOLUTE 0.03 K/mcL Normal 0.00-0.30 [facility] Comment on above: Performed By: #### L [id number] #### LAB [address] [address] Ivan Rizvi M.D. [id number] IG PERCENT 0.60 % Normal [facility] Comment on above: Result Comment: The IG parameter is the percentage of metamyelocytes, myelocytes and promyelocytes. An immature granulocyte count (IG) of 1% or more suggests the possibility of infection, an IG count of 3% is very likely related to an infection. Performed By: #### L [id number] #### LAB [address] [place] [address] Ivan Rizvi M.D. [id number] Lymphocytes (Bld) [#/Vol] 2.04 10*3/uL Normal 0.90-4.00 [facility] Comment on above: Performed By: #### L [id number] #### LAB [address] [address] Ivan Rizvi M.D. [id number] Lymphocytes/100 WBC (Bld) 42.0 % Normal [facility] Comment on above: Performed By: #### L [id number] #### LAB [address] [address] Ivan Rizvi M.D. [id number] MCH (RBC) [Entitic mass] 28.7 pg Normal 26.0-34.0 [facility] Comment on above: Performed By: #### L [id number] #### LAB [address] [address] Ivan Rizvi M.D. [id number] MCV (RBC) [Entitic vol] 89.4 fL Normal 80.0-100.0 [facility] Comment on above: Performed By: #### L [id number] #### LAB [address] [place] [address] Ivan Rizvi M.D. [id number] MEAN CORPUSCULAR HEMOGLOBIN CONC 32.1 g/dL Normal 31.0-37.0 [facility] Comment on above: Performed By: #### L [id number] #### LAB [address] [place] [address] Ivan Rizvi M.D. [id number] Monocytes (Bld) [#/Vol] 0.44 10*3/uL Normal 0.30-0.90 [facility] Comment on above: Performed By: #### L [id number] #### LAB [address] [place] [address] Ivan Rizvi M.D. [id number] Monocytes/100 WBC (Bld) 9.1 % Normal [facility] Comment on above: Performed By: #### L [id number] #### LAB [address] [address] Ivan Rizvi M.D. [id number] NEUTROPHILS ABSOLUTE COUNT 1.87 K/mcL Normal 1.70-7.00 [facility] Comment on above: Performed By: #### L [id number] #### [facility] LAB [address] [address] Ivan Rizvi M.D. [id number] Neutrophils/100 WBC (Bld) 38.5 % Normal [facility] Comment on above: Performed By: #### L [id number] #### MH LAB [address] [address] Ivan Rizvi M.D. [id number] Platelet mean volume (Bld) [Entitic vol] 9.6 fL Normal 9.4-12.4 [facility] Comment on above: Performed By: #### L [id number] #### MH LAB [address] [address] Ivan Rizvi M.D. [id number] Platelets (Bld) [#/Vol] 301 10*3/uL Normal 150-400 [facility] Comment on above: Performed By: #### L [id number] #### MH LAB [address] [address] Ivan Rizvi M.D. [id number] RBC (Bld) [#/Vol] 4.43 10*6/uL Normal 4.00-5.20 [facility] Comment on above: Performed By: #### L [id number] #### MH LAB [address] [address] Ivan Rizvi M.D. [id number] WBC (Bld) [#/Vol] 4.86 10*3/uL Normal 4.50-11.00 [facility] Comment on above: Performed By: #### L [id number] #### MH LAB [address] [address] Ivan Rizvi M.D. [id number] COMPREHENSIVE METABOLIC PANE Colin 05-24-2024 Albumin [Mass/Vol] 3.5 g/dL Normal 3.2-5.2 [facility] Comment on above: Order Comment: [facility] has implemented the eGFR calculation approach that does not have a coefficient for race that conforms to the NKF-ASN Task Force Recommendations. Performed By: #### 4 [id number] #### LAB [address] [address] Ivan Rizvi M.D. [id number] ALP [Catalytic activity/Vol] 64 U/L Normal 40-140 [facility] Comment on above: Order Comment: [facility] has implemented the eGFR calculation approach that does not have a coefficient for race that conforms to the NKF-ASN Task Force Recommendations. Performed By: #### 4 [id number] #### LAB [address] [address] Ivan Rizvi M.D. [id number] ALT [Catalytic activity/Vol] 20 U/L Normal 0-35 U/L [facility] Comment on above: Order Comment: [facility] has implemented the eGFR calculation approach that does not have a coefficient for race that conforms to the NKF-ASN Task Force Recommendations. Performed By: #### 4 6126 #### LAB [address] [address] Ivan Rizvi M.D. [id number] Anion gap [Moles/Vol] 15 mmol/L Normal 10-20 [facility] Comment on above: Order Comment: [facility] has implemented the eGFR calculation approach that does not have a coefficient for race that conforms to the NKF-ASN Task Force Recommendations. Performed By: #### 4 6126 #### LAB [address] [address] Ivan Rizvi M.D. [id number] AST [Catalytic activity/Vol] 15 U/L Normal 0-35 U/L [facility] Comment on above: Order Comment: [facility] has implemented the eGFR calculation approach that does not have a coefficient for race that conforms to the NKF-ASN Task Force Recommendations. Performed By: #### 4 6126 #### LAB [address] [address] Ivan Rizvi M.D. [id number] Bilirubin [Mass/Vol] 0.3 mg/dL Normal 0.0-1.3 [facility] Comment on above: Order Comment: [facility] has implemented the eGFR calculation approach that does not have a coefficient for race that conforms to the NKF-ASN Task Force Recommendations. Performed By: #### 4 6126 #### LAB [address] [address] Ivan Rizvi M.D. [id number] Calcium [Mass/Vol] 8.9 mg/dL Normal 8.4-10.2 [facility] Comment on above: Order Comment: [facility] has implemented the eGFR calculation approach that does not have a coefficient for race that conforms to the NKF-ASN Task Force Recommendations. Performed By: #### 4 [id number] #### LAB [address] [address] Ivan Rizvi M.D. [id number] Chloride [Moles/Vol] 107 mmol/L Normal 98-108 [facility] Comment on above: Order Comment: [facility] has implemented the eGFR calculation approach that does not have a coefficient for race that conforms to the NKF-ASN Task Force Recommendations. Performed By: #### 4 6126 #### LAB [address] [address] Ivan Rizvi M.D. [id number] Creatinine [Mass/Vol] 0.54 mg/dL Normal 0.40-1.10 [facility] Comment on above: Order Comment: [facility] has implemented the eGFR calculation approach that does not have a coefficient for race that conforms to the NKF-ASN Task Force Recommendations. Performed By: #### 4 6159 #### LAB [address] [address] Ivan Rizvi M.D. [id number] EGFR 130 mL/min/1.73 m2 Normal >=60 [facility] Comment on above: Order Comment: [facility] has implemented the eGFR calculation approach that does not have a coefficient for race that conforms to the NKF-ASN Task Force Recommendations. Result Comment: Oskar mated GFR was calculated using the 2020 CKD-EPI creatinine equation. Performed By: #### 4 [id number] #### LAB [address] [address] Ivan Rizvi M.D. [id number] Glucose [Mass/Vol] 94 mg/dL Normal 65-99 [facility] Comment on above: Order Comment: [facility] has implemented the eGFR calculation approach that does not have a coefficient for race that conforms to the NKF-ASN Task Force Recommendations. Performed By: #### 4 6126 #### LAB [address] [address] Ivan Rizvi M.D. [id number] HCO3 (Bld) [Moles/Vol] 20 mmol/L Low 21-32 [facility] Comment on above: Order Comment: [facility] has implemented the eGFR calculation approach that does not have a coefficient for race that conforms to the NKF-ASN Task Force Recommendations. Performed By: #### 4 6126 #### LAB [address] [address] Ivan Rizvi M.D. [id number] Potassium [Moles/Vol] 4.4 mmol/L Normal 3.5-5.1 [facility] Comment on above: Order Comment: [facility] has implemented the eGFR calculation approach that does not have a coefficient for race that conforms to the NKF-ASN Task Force Recommendations. Performed By: #### 4 6126 #### LAB [address] [address] Ivan Rizvi M.D. [id number] Protein [Mass/Vol] 6.1 g/dL Normal 6.0-8.0 [facility] Comment on above: Order Comment: [facility] has implemented the eGFR calculation approach that does not have a coefficient for race that conforms to the NKF-ASN Task Force Recommendations. Performed By: #### 4 6126 #### LAB [address] [address] Ivan Rizvi M.D. [id number] Sodium [Moles/Vol] 138 mmol/L Normal 135-145 [facility] Comment on above: Order Comment: [facility] has implemented the eGFR calculation approach that does not have a coefficient for race that conforms to the NKF-ASN Task Force Recommendations. Performed By: #### 4 6126 #### LAB [address] [id number] Ivan Rizvi M.D. [id number] Urea nitrogen [Mass/Vol] 7 mg/dL Low 8-25 [facility] Comment on above: Order Comment: [facility] has implemented the eGFR calculation approach that does not have a coefficient for race that conforms to the NKF-ASN Task Force Recommendations. Performed By: #### 4 6126 #### LAB [address] [address] Ivan Rizvi M.D. [id number] Urea nitrogen/Creatinine [Mass ratio] 13.0 mg/mg Normal 10.0-20.0 [facility] Comment on above: Order Comment: [facility] has implemented the eGFR calculation approach that does not have a coefficient for race that conforms to the NKF-ASN Task Force Recommendations. Performed By: #### 4 6126 #### LAB [address] [address] Ivan Rizvi M.D. [id number] MAGNESIUM LEVELon 05-24-2024 Magnesium [Mass/Vol] 2.1 mg/dL Normal 1.6-2.4 [facility] Comment on above: Performed By: #### 4 6109 #### LAB [address] [id number] Ivan Rizvi M.D. [id number] PHOSPHORUSon 05-24-2024 Phosphate [Mass/Vol] 4.3 mg/dL Normal 2.7-4.5 [facility] Comment on above: Performed By: #### 4 6299 #### LAB [address] [address] Ivan Rizvi M.D. [id number] BLOOD CULTURE AEROBIC/ANAERO BICon 05-23-2024 BLOOD CULTURE AEROBIC/ANAEROBIC BLOOD CULTURE No Growth after 5 days [facility] Comment on above: Performed By: #### 4 4014 #### LAB [address] [address] Ivan Rizvi M.D. [id number] BLOOD CULTURE AEROBIC/ANAEROBIC BLOOD CULTURE No Growth after 5 days [facility] Comment on above: Performed By: #### 4 4014 #### LAB [address] [address] Ivan Rizvi M.D. [id number] CBC WITH AUTO DIFFERENTIALon 05-23-2024 AUTO NRBC 0.0 % [facility] Comment on above: Performed By: #### L [id number] #### LAB [address] [place] [address] Ivan Rizvi M.D. [id number] AUTO NRBC ABS COUNT 0.00 K/mcL Normal 0.00-0.00 [facility] Comment on above: Performed By: #### L [id number] #### LAB [address] [address] Ivan Rizvi M.D. [id number] BASOPHILS ABSOLUTE COUNT 0.05 K/mcL Normal 0.00-0.30 [facility] Comment on above: Performed By: #### L [id number] #### LAB [address] [place] [address] Ivan Rizvi M.D. [id number] Basophils/100 WBC (Bld) 0.7 % [facility] Comment on above: Performed By: #### L [id number] #### LAB [address] [place] [address] Ivan Rizvi M.D. [id number] Eosinophils (Bld) [#/Vol] 0.33 10*3/uL Normal 0.00-0.50 [facility] Comment on above: Performed By: #### L [id number] #### LAB [address] [place] [address] Ivan Rizvi M.D. [id number] Eosinophils/100 WBC (Bld) 4.8 % Normal [facility] Comment on above: Performed By: #### L [id number] #### LAB [address] [address] Ivan Rizvi M.D. [id number] Erythrocyte distribution width (RBC) [Ratio] 14.8 % Normal 11.6-14.8 [facility] Comment on above: Performed By: #### L [id number] #### LAB [address] [address] Ivan Rizvi M.D. [id number] Hematocrit (Bld) [Volume fraction] 38.3 % Normal 36.0-46.0 [facility] Comment on above: Performed By: #### L [id number] #### LAB [address] [address] Ivan Rizvi M.D. [id number] Hemoglobin (Bld) [Mass/Vol] 12.5 g/dL Normal 12.0-16.0 [facility] Comment on above: Performed By: #### L [id number] #### LAB [address] [place] [address] Ivan Rizvi M.D. [id number] IG ABSOLUTE 0.04 K/mcL Normal 0.00-0.30 [facility] Comment on above: Performed By: #### L [id number] #### LAB [address] [place] [address] Ivan Rizvi M.D. [id number] IG PERCENT 0.60 % Normal [facility] Comment on above: Result Comment: The IG parameter is the percentage of metamyelocytes, myelocytes and promyelocytes. An immature granulocyte count (IG) of 1% or more suggests the possibility of infection, an IG count of 3% is very likely related to an infection. Performed By: #### L [id number] #### LAB [address] [place] [address] Ivan Rizvi M.D. [id number] Lymphocytes (Bld) [#/Vol] 1.74 10*3/uL Normal 0.90-4.00 [facility] Comment on above: Performed By: #### L [id number] #### LAB [address] [address] Ivan Rizvi M.D. [id number] Lymphocytes/100 WBC (Bld) 25.5 % Normal [facility] Comment on above: Performed By: #### L [id number] #### LAB [address] [address] Ivan Rizvi M.D. [id number] MCH (RBC) [Entitic mass] 28.7 pg Normal 26.0-34.0 [facility] Comment on above: Performed By: #### L [id number] #### LAB [address] [address] Ivan Rizvi M.D. [id number] MCV (RBC) [Entitic vol] 87.8 fL Normal 80.0-100.0 [facility] Comment on above: Performed By: #### L [id number] #### LAB [address] [address] Ivan Rizvi M.D. [id number] MEAN CORPUSCULAR HEMOGLOBIN CONC 32.6 g/dL Normal 31.0-37.0 [facility] Comment on above: Performed By: #### L [id number] #### LAB [address] [address] vIan Rizvi M.D. [id number] Monocytes (Bld) [#/Vol] 0.56 10*3/uL Normal 0.30-0.90 [facility] Comment on above: Performed By: #### L [id number] #### LAB [address] [address] Ivan Rizvi M.D. [id number] Monocytes/100 WBC (Bld) 8.2 % Normal [facility] Comment on above: Performed By: #### L [id number] #### LAB [address] [address] Ivan Rizvi M.D. [id number] NEUTROPHILS ABSOLUTE COUNT 4.10 K/mcL Normal 1.70-7.00 [facility] Comment on above: Performed By: #### L [id number] #### MH LAB [address] [address] Ivan Rizvi M.D. [id number] Neutrophils/100 WBC (Bld) 60.2 % Normal [facility] Comment on above: Performed By: #### L [id number] #### [facility] LAB [address] [address] Ivan Rizvi M.D. [id number] Platelet mean volume (Bld) [Entitic vol] 9.5 fL Normal 9.4-12.4 [facility] Comment on above: Performed By: #### L [id number] #### MH LAB [address] [address] Ivan Rizvi M.D. [id number] Platelets (Bld) [#/Vol] 309 10*3/uL Normal 150-400 [facility] Comment on above: Performed By: #### L [id number] #### MH LAB [address] [address] Ivan Rizvi M.D. [id number] RBC (Bld) [#/Vol] 4.36 10*6/uL Normal 4.00-5.20 [facility] Comment on above: Performed By: #### L [id number] #### MH LAB [address] [address] Ivan Rizvi M.D. [id number] WBC (Bld) [#/Vol] 6.82 10*3/uL Normal 4.50-11.00 [facility] Comment on above: Performed By: #### L [id number] #### MH LAB [address] [address] Ivan Rizvi M.D. [id number] COMPREHENSIVE METABOLIC PANE Colin 05-23-2024 Albumin [Mass/Vol] 3.6 g/dL Normal 3.2-5.2 [facility] Comment on above: Order Comment: [facility] has implemented the eGFR calculation approach that does not have a coefficient for race that conforms to the NKF-ASN Task Force Recommendations. Performed By: #### 4 6126 #### LAB [address] [address] Ivan Rizvi M.D. [id number] ALP [Catalytic activity/Vol] 77 U/L Normal 40-140 [facility] Comment on above: Order Comment: [facility] has implemented the eGFR calculation approach that does not have a coefficient for race that conforms to the NKF-ASN Task Force Recommendations. Performed By: #### 4 6126 #### LAB [address] [address] Ivan Rizvi M.D. [id number] ALT [Catalytic activity/Vol] 22 U/L Normal 0-35 U/L [facility] Comment on above: Order Comment: [facility] has implemented the eGFR calculation approach that does not have a coefficient for race that conforms to the NKF-ASN Task Force Recommendations. Performed By: #### 4 6126 #### LAB [address] [address] Ivan Rizvi M.D. [id number] Anion gap [Moles/Vol] 14 mmol/L Normal 10-20 [facility] Comment on above: Order Comment: [facility] has implemented the eGFR calculation approach that does not have a coefficient for race that conforms to the NKF-ASN Task Force Recommendations. Performed By: #### 4 6126 #### LAB [address] [address] Ivan Rizvi M.D. [id number] AST [Catalytic activity/Vol] 19 U/L Normal 0-35 U/L [facility] Comment on above: Order Comment: [facility] has implemented the eGFR calculation approach that does not have a coefficient for race that conforms to the NKF-ASN Task Force Recommendations. Performed By: #### 4 6126 #### LAB [address] [address] Ivan Rizvi M.D. [id number] Bilirubin [Mass/Vol] 0.3 mg/dL Normal 0.0-1.3 [facility] Comment on above: Order Comment: [facility] has implemented the eGFR calculation approach that does not have a coefficient for race that conforms to the NKF-ASN Task Force Recommendations. Performed By: #### 4 6126 #### LAB [address] [place], [place] [address] Ivan Rizvi M.D. [id number] Calcium [Mass/Vol] 8.8 mg/dL Normal 8.4-10.2 [facility] Comment on above: Order Comment: [facility] has implemented the eGFR calculation approach that does not have a coefficient for race that conforms to the NKF-ASN Task Force Recommendations. Performed By: #### 4 6126 #### LAB [address] [id number] Ivan Rizvi M.D. [id number] Chloride [Moles/Vol] 108 mmol/L Normal 98-108 [facility] Comment on above: Order Comment: [facility] has implemented the eGFR calculation approach that does not have a coefficient for race that conforms to the NKF-ASN Task Force Recommendations. Performed By: #### 4 6126 #### LAB [address] [place], [place] [address] Ivan Rizvi M.D. [id number] Creatinine [Mass/Vol] 0.45 mg/dL Normal 0.40-1.10 [facility] Comment on above: Order Comment: [facility] has implemented the eGFR calculation approach that does not have a coefficient for race that conforms to the NKF-ASN Task Force Recommendations. Performed By: #### 4 6126 #### LAB [address] [place], [place] [address] Ivan Rizvi M.D. [id number] EGFR 135 mL/min/1.73 m2 Normal >=60 [facility] Comment on above: Order Comment: [facility] has implemented the eGFR calculation approach that does not have a coefficient for race that conforms to the NKF-ASN Task Force Recommendations. Result Comment: Oskar mated GFR was calculated using the 2020 CKD-EPI creatinine equation. Performed By: #### 4 6126 #### LAB [address] [id number] Ivan Rizvi M.D. [id number] Glucose [Mass/Vol] 102 mg/dL High 65-99 [facility] Comment on above: Order Comment: [facility] has implemented the eGFR calculation approach that does not have a coefficient for race that conforms to the NKF-ASN Task Force Recommendations. Performed By: #### 4 6126 #### LAB [address] [address] Ivan Rizvi M.D. [id number] HCO3 (Bld) [Moles/Vol] 21 mmol/L Normal 21-32 [facility] Comment on above: Order Comment: [facility] has implemented the eGFR calculation approach that does not have a coefficient for race that conforms to the NKF-ASN Task Force Recommendations. Performed By: #### 4 6126 #### LAB [address] [address] Ivan Rizvi M.D. [id number] Potassium [Moles/Vol] 3.8 mmol/L Normal 3.5-5.1 [facility] Comment on above: Order Comment: [facility] has implemented the eGFR calculation approach that does not have a coefficient for race that conforms to the NKF-ASN Task Force Recommendations. Performed By: #### 4 6126 #### LAB [address] [address] Ivan Rizvi M.D. [id number] Protein [Mass/Vol] 6.3 g/dL Normal 6.0-8.0 [facility] Comment on above: Order Comment: [facility] has implemented the eGFR calculation approach that does not have a coefficient for race that conforms to the NKF-ASN Task Force Recommendations. Performed By: #### 4 6126 ####[facility] LAB [address] [address] Ivan Rizvi M.D. [id number] Sodium [Moles/Vol] 139 mmol/L Normal 135-145 [facility] Comment on above: Order Comment: [facility] has implemented the eGFR calculation approach that does not have a coefficient for race that conforms to the NKF-ASN Task Force Recommendations. Performed By: #### 4 6126 #### LAB [address] [place], [place] [address] Ivan Rizvi M.D. [id number] Urea nitrogen [Mass/Vol] 5 mg/dL Low 8-25 [facility] Comment on above: Order Comment: [facility] has implemented the eGFR calculation approach that does not have a coefficient for race that conforms to the NKF-ASN Task Force Recommendations. Performed By: #### 4 6126 #### LAB [address] [place], [place] [address] Ivan Rizvi M.D. [id number] Urea nitrogen/Creatinine [Mass ratio] 11.1 mg/mg Normal 10.0-20.0 [facility] Comment on above: Order Comment: [facility] has implemented the eGFR calculation approach that does not have a coefficient for race that conforms to the NKF-ASN Task Force Recommendations. Performed By: #### 4 6126 #### LAB [address] [place], [place] [address] Ivan Rizvi M.D. [id number] CT Chest W contrast IV and C T angiogram Pulmonary arteries for pulmonary embolus W contrast Jeevan 05-23-2024 No acute pulmonary embolus to the segmental level. Patchy right basilar airspace opacity most compatible with pneumonia. MACRO: None. Signed by: Roberto Ortiz 05/23/2024 1:56 AM Dictation workstation: [id number]ODAL Interpreted By: Roberto Ortiz, STUDY: CT ANGIO CHEST FOR PULMONARY EMBOLISM; 05/23/2024 1:48 am INDICATION: Signs/Symptoms:pain. COMPARISON: Chest radiograph 05/22/2024 ACCESSION NUMBER(S): [id number] ORDERING CLINICIAN: MARIELA SCHULZ TECHNIQUE: Axial CTA [...] Signs/Symptoms:pain. COMPARISON: Chest radiograph 05/22/2024 ACCESSION NUMBER(S): [id number] ORDERING CLINICIAN: MARIELA SCHULZ TECHNIQUE: Axial CTA [...] Roberto Ortiz 05/23/2024 1:56 AM Dictation workstation: [id number] [facility] Work Phone: Radiology Study observation (narrative) [facility] Work Phone: CT Chest W contrast IV and C T angiogram Pulmonary arteries for pulmonary embolus W contrast IVOrdered By: Roberto Ortiz on 05-23-2024 [facility] Work Phone: HCG, BLOOD, QUANTITATIVEon 1 HCG, QUANTITATIVE < Normal 0-5 [facility] Comment on above: Order Comment: Males and non females: <5 mIU/mLFemales during :3-4 weeks 9-130 mIU/mL4-5 weeks 75-2600 mIU/mL5-6 weeks 850-20,800 mIU/mL6-7 weeks 4000-100,200 mIU/mL7-12 weeks 11,500-289,000 mIU/mL12-16 weeks 18,300-137,000 mIU/mL16-29 weeks 1,400-53,000 mIU/mL29-41 weeks 940-60,000 mIU/mL Performed By: #### 4 5827 #### LAB [address] [place], [place] [address] Ivan Rizvi M.D. [id number] Lactateon 05-23-2024 Lactate [Moles/Vol] 2.1 mmol/L High 0.4 - 2. 0 mmol/L [facility] Lactate [Moles/Vol]on 2023 Interpretation and review of laboratory results Abnormal [facility] Venipuncture immedia tely after or during the administration of Metamizole may lead to falsely low results. Testing should be performed immediately prior to Metamizole dosing. [facility] MAGNESIUM LEVELon 05-23-2024 Magnesium [Mass/Vol] 2.1 mg/dL Normal 1.6-2.4 [facility] Comment on above: Performed By: #### 4 6109 #### LAB [address] [place], [place] [address] Ivan Rizvi M.D. [id number] PHOSPHORUSon 05-23-2024 Phosphate [Mass/Vol] 3.5 mg/dL Normal 2.7-4.5 [facility] Comment on above: Performed By: #### 4 6299 #### LAB [address] [place], [place] [address] Ivan Riziv M.D. [id number] PROCALCITONINon 05-23-2024 PROCALCITONIN < Normal <0.50 [facility] Comment on above: Order Comment: Resul ts <0.50 ng/ml represent a low risk of severe sepsis and/or septic shock. Performed By: #### 4 7652 #### LAB [address] [address] Ivan Rizvi M.D. [id number] RESPIRATORY PCR PANELon 05-09 RESPIRATORY PCR PANEL [...] SARS-COV-2 (BIOFIRE) Not Detected Normal Not Detected [facility] Comment on above: Performed By: #### L [id number] #### [facility] [address] [place] [address] Keyshawn Monzon M.D. [id number] S.PNEUMONIAE URINE ANTIGENon 05-23-2024 S.PNEUMONIAE URINE ANTIGEN STREP PNEUMONIAE ANTIGEN, URINE Presumptive Negative for Pneumococcal pneumoniae A negative result suggests no current or recent pneumococcal infection. A negative result does not rule out Streptococcus pneumoniae infection since the antigen present in the sample may be below the detection limit of the test. Normal [facility] Comment on above: Performed By: #### 4 7222 #### LAB [address] [address] Ivan Rizvi M.D. [id number] URINALYSISon 05-23-2024 BACTERIA, URINE None Seen Normal None Seen [facility] Comment on above: Order Comment: Micro scopic examination is performed on all urinalysis samples and only positive findings are reported. The test for blood on the chemical analytic portion of urinalysis may also be positive due to hemoglobinuria and myoglobinuria and if red blood cells are present they are quantified by microscopic examination. Performed By: #### 4 [id number] #### LAB [address] [address] Ivan Rizvi M.D. [id number] BILIRUBIN, URINE Negative Normal Negative [facility] Comment on above: Order Comment: Micro scopic examination is performed on all urinalysis samples and only positive findings are reported. The test for blood on the chemical analytic portion of urinalysis may also be positive due to hemoglobinuria and myoglobinuria and if red blood cells are present they are quantified by microscopic examination. Performed By: #### 4 6625 #### LAB [address] [address] Ivan Rizvi M.D. [id number] BLOOD, URINE Small Abnormal Negative [facility] Comment on above: Order Comment: Micro scopic examination is performed on all urinalysis samples and only positive findings are reported. The test for blood on the chemical analytic portion of urinalysis may also be positive due to hemoglobinuria and myoglobinuria and if red blood cells are present they are quantified by microscopic examination. Performed By: #### 4 [id number] #### LAB [address] [place] [address] Ivan Rizvi M.D. [id number] Clarity (U) Clear Normal Clear [facility] Comment on above: Order Comment: Micro scopic examination is performed on all urinalysis samples and only positive findings are reported. The test for blood on the chemical analytic portion of urinalysis may also be positive due to hemoglobinuria and myoglobinuria and if red blood cells are present they are quantified by microscopic examination. Performed By: #### 4 6625 #### LAB [address] [address] Ivan Rizvi M.D. [id number] Color (U) Colorless Normal Colorless, Yellow [facility] Comment on above: Order Comment: Micro scopic examination is performed on all urinalysis samples and only positive findings are reported. The test for blood on the chemical analytic portion of urinalysis may also be positive due to hemoglobinuria and myoglobinuria and if red blood cells are present they are quantified by microscopic examination. Performed By: #### 4 [id number] #### LAB [address] [address] Ivan Rizvi M.D. [id number] Glucose Ql (U) Negative Normal Negative [facility] Comment on above: Order Comment: Micro scopic examination is performed on all urinalysis samples and only positive findings are reported. The test for blood on the chemical analytic portion of urinalysis may also be positive due to hemoglobinuria and myoglobinuria and if red blood cells are present they are quantified by microscopic examination. Performed By: #### 4 [id number] #### LAB [address] [address] Ivan Rizvi M.D. [id number] Ketones Ql (U) Negative Normal Negative [facility] Comment on above: Order Comment: Micro scopic examination is performed on all urinalysis samples and only positive findings are reported. The test for blood on the chemical analytic portion of urinalysis may also be positive due to hemoglobinuria and myoglobinuria and if red blood cells are present they are quantified by microscopic examination. Performed By: #### 4 [id number] #### LAB [address] [place] [address] Ivan Rizvi M.D. [id number] Leukocyte esterase Test strip Ql (U) Negative Normal [facility] Comment on above: Order Comment: Micro scopic examination is performed on all urinalysis samples and only positive findings are reported. The test for blood on the chemical analytic portion of urinalysis may also be positive due to hemoglobinuria and myoglobinuria and if red blood cells are present they are quantified by microscopic examination. Performed By: #### 4 [id number] #### LAB [address] [address] Ivan Rizvi M.D. [id number] MUCUS, URINE Rare Normal None Seen, Rare [facility] Comment on above: Order Comment: Micro scopic examination is performed on all urinalysis samples and only positive findings are reported. The test for blood on the chemical analytic portion of urinalysis may also be positive due to hemoglobinuria and myoglobinuria and if red blood cells are present they are quantified by microscopic examination. Performed By: #### 4 6625 #### LAB [address] [address] Ivan Rizvi M.D. [id number] NITRITE, URINE Negative Normal [facility] Comment on above: Order Comment: Micro scopic examination is performed on all urinalysis samples and only positive findings are reported. The test for blood on the chemical analytic portion of urinalysis may also be positive due to hemoglobinuria and myoglobinuria and if red blood cells are present they are quantified by microscopic examination. Performed By: #### 4 6625 #### LAB [address] [address] Ivan Rizvi M.D. [id number] pH (U) 6.5 [pH] Normal 5.0-7.0 [facility] Comment on above: Order Comment: Micro scopic examination is performed on all urinalysis samples and only positive findings are reported. The test for blood on the chemical analytic portion of urinalysis may also be positive due to hemoglobinuria and myoglobinuria and if red blood cells are present they are quantified by microscopic examination. Performed By: #### 4 [id number] #### LAB [address] [place] [address] Ivan Rizvi M.D. [id number] PROTEIN, URINE Negative Normal Negative [facility] Comment on above: Order Comment: Micro scopic examination is performed on all urinalysis samples and only positive findings are reported. The test for blood on the chemical analytic portion of urinalysis may also be positive due to hemoglobinuria and myoglobinuria and if red blood cells are present they are quantified by microscopic examination. Performed By: #### 4 [id number] #### LAB [address] [place] [address] Ivan Rizvi M.D. [id number] RBC LM.HPF (Urine sed) [#/Area] 1 /[HPF] Normal 0-3 [facility] Comment on above: Order Comment: Micro scopic examination is performed on all urinalysis samples and only positive findings are reported. The test for blood on the chemical analytic portion of urinalysis may also be positive due to hemoglobinuria and myoglobinuria and if red blood cells are present they are quantified by microscopic examination. Performed By: #### 4 [id number] #### LAB [address] [place] [address] Ivan Rizvi M.D. [id number] Specific gravity (U) [Rel density] 1.011 Normal 1.005-1.025 [facility] Comment on above: Order Comment: Micro scopic examination is performed on all urinalysis samples and only positive findings are reported. The test for blood on the chemical analytic portion of urinalysis may also be positive due to hemoglobinuria and myoglobinuria and if red blood cells are present they are quantified by microscopic examination. Performed By: #### 4 6625 #### LAB [address] [address] Ivan Rizvi M.D. [id number] SQUAMOUS EPITHELIAL 2 /hpf Normal 0-4 [facility] Comment on above: Order Comment: Micro scopic examination is performed on all urinalysis samples and only positive findings are reported. The test for blood on the chemical analytic portion of urinalysis may also be positive due to hemoglobinuria and myoglobinuria and if red blood cells are present they are quantified by microscopic examination. Performed By: #### 4 [id number] #### LAB [address] [place] [address] Ivan Rizvi M.D. [id number] UROBILINOGEN, URINE <2.0 Normal <2.0 [facility] Comment on above: Order Comment: Micro scopic examination is performed on all urinalysis samples and only positive findings are reported. The test for blood on the chemical analytic portion of urinalysis may also be positive due to hemoglobinuria and myoglobinuria and if red blood cells are present they are quantified by microscopic examination. Performed By: #### 4 [id number] #### LAB [address] [place] [address] Ivan Rizvi M.D. [id number] WBC LM.HPF (Urine sed) [#/Area] 1 /[HPF] Normal 0-5 [facility] Comment on above: Order Comment: Micro scopic examination is performed on all urinalysis samples and only positive findings are reported. The test for blood on the chemical analytic portion of urinalysis may also be positive due to hemoglobinuria and myoglobinuria and if red blood cells are present they are quantified by microscopic examination. Performed By: #### 4 [id number] ####[address] [address] [address] [place], [place] [address] Ivan Rizvi M.D. [id number] CBC W Auto Differential pane l (Bld)on 05-22-2024 Basophils (Bld) [#/Vol] 0.05 10*3/uL [facility] Basophils/100 WBC (Bld) 0.5 % 0.0 - 2.0 % [facility] Eosinophils (Bld) [#/Vol] 0.10 10*3/uL [facility] Eosinophils/100 WBC (Bld) 1.0 % 0.0 - 6.0 % [facility] Erythrocyte distribution width (RBC) [Ratio] 14.3 % 11.5 - 14.5 % [facility] Hematocrit (Bld) [Volume fraction] 40.4 % 36.0 - 46.0 % [facility] Hemoglobin (Bld) [Mass/Vol] 13.3 g/dL 12.0 - 16.0 g/dL [facility] Immature granulocytes (Bld) [#/Vol] 0.05 10*3/uL [facility] Immature granulocytes/100 WBC (Bld) 0.5 % 0.0 - 0.9 % [facility] Comment on above: Immature Granulocyte Count (IG) includes promyelocytes, myelocytes and metamyelocytes but does not include bands. Percent differential counts (%) should be interpreted in the context of the absolute cell counts (cells/UL). Interpretation and review of laboratory results Abnormal [facility] Lymphocytes (Bld) [#/Vol] 1.46 10*3/uL [facility] Lymphocytes/100 WBC (Bld) 14.0 % 13.0 - 44.0 % [facility] MCH (RBC) [Entitic mass] 29.2 pg 26.0 - 34.0 pg [facility] MCHC (RBC) [Mass/Vol] 32.9 g/dL 32.0 - 36.0 g/dL [facility] MCV (RBC) [Entitic vol] 89 fL 80 - 100 fL [facility] Monocytes (Bld) [#/Vol] 0.37 10*3/uL [facility] Monocytes/100 WBC (Bld) 3.6 % 2.0 - 10.0 % [facility] Neutrophils (Bld) [#/Vol] 8.39 10*3/uL High [facility] Comment on above: Percent differential counts (%) should be interpreted in the context of the absolute cell counts (cells/uL). Neutrophils/100 WBC (Bld) 80.4 % 40.0 - 80.0 % [facility] Nucleated RBC/100 WBC (Bld) [Ratio] 0.0 % [facility] Platelets (Bld) [#/Vol] 362 10*3/uL [facility] RBC (Bld) [#/Vol] 4.55 10*6/uL [facility] WBC (Bld) [#/Vol] 10.4 10*3/uL [facility] Comprehensive metabolic 2000 panelon 05-22-2024 Albumin BCP dye [Mass/Vol] 3.8 g/dL 3.4 - 5.0 g/dL [facility] ALP [Catalytic activity/Vol] 61 U/L 33 - 110 U/L [facility] ALT With P-5'-P [Catalytic activity/Vol] 26 U/L 7 - 45 U/L [facility] Comment on above: Patients treated wit h Sulfasalazine may generate falsely decreased results for ALT. Anion gap [Moles/Vol] 13 mmol/L 10 - 2 0 mmol/L [facility] AST With P-5'-P [Catalytic activity/Vol] 15 U/L 9 - 39 U/L [facility] Bilirubin [Mass/Vol] 0.4 mg/dL 0.0 - 1 .2 mg/dL [facility] Calcium [Mass/Vol] 8.7 mg/dL 8.6 - 10. 3 mg/dL [facility] Chloride [Moles/Vol] 104 mmol/L 98 - 10 7 mmol/L [facility] CO2 [Moles/Vol] 25 mmol/L 21 - 32 mmol/L [facility] Creatinine [Mass/Vol] 0.56 mg/dL 0.50 - 1.05 mg/dL [facility] eGFR - PINF [facility] Comment on above: Calculations of oskar mated GFR are performed using the 2020 CKD-EPI Study Refit equation without the race variable for the IDMS-Traceable creatinine methods. https://jasn.asnjournals.org/content//ASN.839847 2921 Glucose [Mass/Vol] 106 mg/dL High 74 - 99 mg/dL [facility] Interpretation and review of laboratory results Abnormal [facility] Potassium [Moles/Vol] 3.0 mmol/L Low 3.5 - 5.3 mmol/L [facility] Protein [Mass/Vol] 7.0 g/dL 6.4 - 8.2 g/dL [facility] Sodium [Moles/Vol] 139 mmol/L 136 - 145 mmol/L [facility] Urea nitrogen [Mass/Vol] 10 mg/dL 6 - 23 mg/dL [facility] Lactateon 05-22-2024 Lactate [Moles/Vol] 2.3 mmol/L High 0.4 - 2. 0 mmol/L [facility] Lactate [Moles/Vol]on 2023 Interpretation and review of laboratory results Abnormal [facility] Venipuncture immedia tely after or during the administration of Metamizole may lead to falsely low results. Testing should be performed immediately prior to Metamizole dosing. [facility] XR Chest 2 Viewson Mild increased perih ilar opacities suggestive of developing interstitial edema. Superimposed infection not excluded. Clinical correlation and continued short-term follow-up is advised. MACRO: None Signed by: Neva Perdomo 05/22/2024 10:31 PM Dictation workstation: [id number] MMODAL Interpreted By: Neva Roger, STUDY: XR CHEST 2 VIEWS; 05/22/2024 10:00 pm INDICATION: Signs/Symptoms:pneumonia. COMPARISON: None. ACCESSION NUMBER(S): [id number] ORDERING CLINICIAN: MARIELA SCHULZ FINDINGS: CARDIOMEDIASTINAL SILHOUETTE: [...] pm INDICATION: Signs/Symptoms:pneumonia. COMPARISON: None. ACCESSION NUMBER(S): [id number] ORDERING CLINICIAN: MARIELA SCHULZ FINDINGS: CARDIOMEDIASTINAL SILHOUETTE: [...] Neva Perdomo 05/22/2024 10:31 PM Dictation workstation: [id number] [facility] Work Phone: Radiology Study observation (narrative) [facility] Work Phone: XR Chest 2 ViewsOrdered By: Neva Perdomo on 05-22-2024 [facility] Work Phone: COVID-19, MOLECULARon 2023 SARS-CoV-2 (COVID-19) Ab IA Ql Not detected Normal Not Detected [facility] Comment on above: Result Comment: [...] on WedMay 15, 2024 12:30:53 AM EDT [facility] Comment on above: Order Comment: Injur y/Trauma or Illness?:Illness/Other How long have you had these symptoms (acute/chronic)?:Acute Reason for exam?:cough x2 weeks, elevated d-dimer Type of Exam?:Initial Additional signs and symptoms?:none ED Prov Noteon 05-14-2024 ED Prov Note ED PROVIDER NOTE [facility] NAME: Shauna Rainey AGE: 28 y.o. : 1995 VISIT DATE: 05/14/2024 CSN: [id number] PCP: Kinjal [place] MD Chief Complaint Patient [...] Range S (more content not included)... Normal [facility] POC BASIC METABOLIC PANEL - Jerardo 05-14-2024 Chloride [Moles/Vol] 102 mmol/L Normal 98-108 [facility] Comment on above: Order Comment: [facility] has implemented the eGFR calculation approach that does not have a coefficient for race that conforms to the NKF-ASN Task Force Recommendations. CO2 [Moles/Vol] 26 mmol/L Normal 21-32 [facility] Comment on above: Order Comment: [facility] has implemented the eGFR calculation approach that does not have a coefficient for race that conforms to the NKF-ASN Task Force Recommendations. Creatinine [Mass/Vol] 0.58 mg/dL Normal 0.40-1.10 [facility] Comment on above: Order Comment: [facility] has implemented the eGFR calculation approach that does not have a coefficient for race that conforms to the NKF-ASN Task Force Recommendations. Glucose [Mass/Vol] 156 mg/dL High 65-99 [facility] Comment on above: Order Comment: [facility] has implemented the eGFR calculation approach that does not have a coefficient for race that conforms to the NKF-ASN Task Force Recommendations. POC GFR 127 mL/min/1.73 m2 Normal >=60 [facility] Comment on above: Order Comment: [facility] has implemented the eGFR calculation approach that does not have a coefficient for race that conforms to the NKF-ASN Task Force Recommendations. Result Comment: Oskar mated GFR was calculated using the 2020 CKD-EPI creatinine equation. POC IONIZED CALCIUM 4.5 mg/dL Normal 4.5-5.3 [facility] Comment on above: Order Comment: [facility] has implemented the eGFR calculation approach that does not have a coefficient for race that conforms to the NKF-ASN Task Force Recommendations. Potassium [Moles/Vol] 3.0 mmol/L Low 3.5-5.1 [facility] Comment on above: Order Comment: [facility] has implemented the eGFR calculation approach that does not have a coefficient for race that conforms to the NKF-ASN Task Force Recommendations. Sodium [Moles/Vol] 141 mmol/L Normal 135-145 [facility] Comment on above: Order Comment: [facility] has implemented the eGFR calculation approach that does not have a coefficient for race that conforms to the NKF-ASN Task Force Recommendations. Urea nitrogen [Mass/Vol] 5 mg/dL Low 8-25 [facility] Comment on above: Order Comment: [facility] has implemented the eGFR calculation approach that does not have a coefficient for race that conforms to the NKF-ASN Task Force Recommendations. POC CBC AND DIFFERENTIALon 1 BASOPHILS ABSOLUTE COUNT 0.01 K/mcL Normal 0.00-0.30 [facility] Basophils/100 WBC (Bld) 0.1 % Normal [facility] Eosinophils (Bld) [#/Vol] 0.21 10*3/uL Normal 0.00-0.50 [facility] Eosinophils/100 WBC (Bld) 3.0 % Normal [facility] Erythrocyte distribution width (RBC) [Ratio] 13.5 % Normal 11.6-14.8 [facility] Hematocrit (Bld) [Volume fraction] 39.0 % Normal 36.0-46.0 [facility] Hemoglobin (Bld) [Mass/Vol] 13.0 g/dL Normal 12.0-16.0 [facility] IG ABSOLUTE 0.01 K/mcL Normal 0.00-0.30 [facility] IG PERCENT 0.10 % Normal [facility] Comment on above: Result Comment: The IG parameter is the percentage of metamyelocytes, myelocytes and promyelocytes. An immature granulocyte count (IG) of 1% or more suggests the possibility of infection, an IG count of 3% is very likely related to an infection. Lymphocytes (Bld) [#/Vol] 1.12 10*3/uL Normal 0.90-4.00 [facility] Lymphocytes/100 WBC (Bld) 15.8 % Normal [facility] MCH (RBC) [Entitic mass] 28.8 pg Normal 26.0-34.0 [facility] MCV (RBC) [Entitic vol] 86.3 fL Normal 80.0-100.0 [facility] MEAN CORPUSCULAR HEMOGLOBIN CONC 33.3 g/dL Normal 31.0-37.0 [facility] Monocytes (Bld) [#/Vol] 0.29 10*3/uL Low 0.30-0.90 [facility] Monocytes/100 WBC (Bld) 4.1 % Normal [facility] NEUTROPHILS ABSOLUTE COUNT 5.43 K/mcL Normal 1.70-7.00 [facility] Neutrophils/100 WBC (Bld) 76.9 % Normal [facility] Platelet mean volume (Bld) [Entitic vol] 9.1 fL Low 9.4-12.4 [facility] Platelets (Bld) [#/Vol] 283 10*3/uL Normal 150-400 [facility] RBC (Bld) [#/Vol] 4.52 10*6/uL Normal 4.00-5.20 [facility] WBC (Bld) [#/Vol] 7.07 10*3/uL Normal 4.50-11.00 [facility] POC D-DIMER [facility] POC D-DIMER 1230 ng/mL DDU High <350 [facility] Comment on above: Order [...] than 400 ng/ml. POC INFLUENZA A/B - [facility] 1 POC INFLUENZA A (FSED) Not detected Normal Not Detected [facility] POC INFLUENZA B (FSED) Not detected Normal Not Detected [facility] POC TROPONIN I [facility] 2023 POC TROPONIN I < Normal <0.05 [facility] XR CHEST PA/APon 05-14-2024 XR [...] Mild bronchial wall thickening is noted centrally. Xmzf-bg-ljmlvjgi haziness is noted bilaterally suggestive of moderate pneumonitis. IMPRESSION: 1. Moderate haziness bilaterally suggestive of pneumonitis. 2. Ndow-jx-layukdsg bilateral perihilar bronchitis. Workstation ID: [id number] Dictated by: RINA MURDOCK on Saunemin May 14, 2024 11:02:28 PM EDT Transcribed by: RINA MURDOCK on Saunemin May 14, 2024 11:02:28 PM EDT Finalized by: RINA MURDOCK on Saunemin May 14, 2024 11:02:28 PM EDT [facility] Comment on above: Order Comment: Injur y/Trauma [...] CNP Authorized by: Era Giordano CNP CPT 18531 - Large Joint Arthrocentesis: Consent given by: [...] the procedure well with no immediate complications [facility] CULTURE URINEon 01-18-2021 CULTURE URINE CULTURE URINE --> St atus: F Normal urogenital jennie present. Normal [facility] Comment on above: Performed By: #### C /UR #### [facility] [address] [place] [address] Hemoglobinon 01-18-2021 Hemoglobin (Bld) [Mass/Vol] 7.4 g/dL Low 11.7-16.0 [facility] Comment on above: Performed By: #### H EMGB #### [facility] [address] [place] [address] HemoglobinOrdered By: Drea Senior on 01-18-2021 Hemoglobin.gastrointe stinal spec 1 Ql (Stl) 7.4 g/dL Low 11.7 - 16.0 g/dL [facility] Work Phone: Interpretation and review of laboratory results Abnormal [facility] Work Phone: Test Performed by [facility], [address] [place] [address] [facility] Work Phone: [facility] Work Phone: CR Abdomen APon 01-17-2021 CR Abdomen AP [facility]: [id number] ACCESSION EXAM DATE/TIME PROCEDURE ORDERING PROVIDER [id number] 01/17/2021 02:10 EDT CR Abdomen AP [id number] -SURI ESTRADA CPT code 46408 Reason For Exam (CR Abdomen AP) s/p [...] bowel gas pattern. Report Dictated on Workstation: [email or web address] Final Dictated: 01/17/2021 2:09 am Dictating Physician: MD LEAL JONATHAN R Signed Date and Time: 01/17/2021 2:10 am Signed by: MD LEAL JONATHAN R Transcribed Date and Time: 01/17/2021 2:09 Normal [facility] Comp Metabolic Panelon 01-17 ALP [Catalytic activity/Vol] 128 U/L High 38-126 [facility] Comment on above: Performed By: #### C MP3, HEMOG #### [facility] [address] [place], [place] ALT [Catalytic activity/Vol] 11 U/L Normal 0-34 [facility] Comment on above: Result Comment: The ALT test is performed by an updated assay method. Please note that the reference intervals have been changed and are now sex specific. Performed By: #### C MP3, HEMOG #### [facility] [address], [place] Calcium [Mass/Vol] 9.5 mg/dL Normal 8.4-10.4 [facility] Comment on above: Performed By: #### C MP3, HEMOG #### [facility] [address], [place] Glucose [Mass/Vol] 75 mg/dL Normal 70-100 [facility] Comment on above: Performed By: #### C MP3, HEMOG #### [facility] [address] [place], [place] Protein [Mass/Vol] 6.7 g/dL Normal 6.3-8.2 [facility] Comment on above: Performed By: #### C MP3, HEMOG #### [facility] [address] [place], [place] Urea nitrogen [Mass/Vol] 10 mg/dL Normal 7-20 [facility] Comment on above: Performed By: #### C MP3, HEMOG #### [facility] [address] [place], [place] Anion gap [Moles/Vol] 5 mmol/L Normal 3-13 [facility] Comment on above: Performed By: #### C MP3, HEMOG #### [facility] [address] [place], [place] AST [Catalytic activity/Vol] 26 U/L Normal 15-46 [facility] Comment on above: Performed By: #### C MP3, HEMOG #### [facility] [address] [place], [place] Bilirubin [Mass/Vol] 0.5 mg/dL Normal 0.2-1.3 [facility] Comment on above: Performed By: #### C MP3, HEMOG #### [facility] [address], [place] CO2 [Moles/Vol] 20 mmol/L Low 22-30 [facility] Comment on above: Performed By: #### C MP3, HEMOG #### [facility] [address], [place] Creatinine [Mass/Vol] 0.40 mg/dL Low 0.52-1.25 [facility] Comment on above: Performed By: #### C MP3, HEMOG #### [facility] [address], [place] eGFR OTHER > 90.0 Normal >60 [facility] Comment on above: Result Comment: [...] Performed By: #### C MP3, HEMOG #### [facility] [address], [place] GFR/1.73 sq M.predicted among blacks MDRD (S/P/Bld) [Vol rate/Area] mL/min/{1.73_m2} Normal >60 [facility] Comment on above: Performed By: #### C MP3, HEMOG #### [facility] [address] [place] [address] Chloride [Moles/Vol] 107 mmol/L Normal 98-107 [facility] Comment on above: Performed By: #### C MP3, HEMOG #### [facility] [address] [place] [address] Potassium [Moles/Vol] 3.5 mmol/L Normal 3.5-5.1 [facility] Comment on above: Performed By: #### C MP3, HEMOG #### [address] [address] [place] [address] Sodium [Moles/Vol] 133 mmol/L Low 135-145 [facility] Comment on above: Performed By: #### C MP3, HEMOG #### [address] [address] [place], [place] Albumin [Mass/Vol] 3.5 g/dL Normal 3.5-5.0 [facility] Comment on above: Performed By: #### C MP3, HEMOG #### [address] Culture, UrineOrdered By: Leslie Estrada on 01-17-2021 Bacteria identified Cx Nom (U) Normal urogenital jennie present. [facility] Work Phone: Test Performed by [facility], [address] [place] [address] [facility] Work Phone: [facility] Work Phone: Hemogramon 01-17-2021 Erythrocyte distribution width (RBC) [Ratio] 15.6 % High 11.5-14.5 [facility] Comment on above: Performed By: #### C MP3, HEMOG #### [facility] [address], [place] Hematocrit (Bld) [Volume fraction] 32.6 % Low 35.0-47.0 [facility] Comment on above: Performed By: #### C MP3, HEMOG #### [address] [place], [place] Hemoglobin (Bld) [Mass/Vol] 10.9 g/dL Low 11.7-16.0 [facility] Comment on above: Performed By: #### C MP3, HEMOG #### [address] [place], [place] MCH (RBC) [Entitic mass] 26.7 pg Normal 26.0-34.0 [facility] Comment on above: Performed By: #### C MP3, HEMOG #### [address], [place] MCHC 33.4 % Normal 32.0-36.0 [facility] Comment on above: Performed By: #### C MP3, HEMOG #### [address], [place] MCV (RBC) [Entitic vol] 79.9 fL Normal 79.0-98.0 [facility] Comment on above: Performed By: #### C MP3, HEMOG #### [address], [place] Platelet mean volume (Bld) [Entitic vol] 9.7 fL Normal 7.4-10.4 [facility] Comment on above: Performed By: #### C MP3, HEMOG #### [address] [place], [place] Platelets (Bld) [#/Vol] 152 10*3/uL Normal 140-440 [facility] Comment on above: Performed By: #### C MP3, HEMOG #### [address], [place] RBC (Bld) [#/Vol] 4.08 10*6/uL Normal 3.80-5.20 [facility] Comment on above: Performed By: #### C MP3, HEMOG #### [address] [place] [address] WBC (Bld) [#/Vol] 8.1 10*3/uL Normal 3.6-10.7 [facility] Comment on above: Performed By: #### C MP3, HEMOG #### [facility] [address] [place] [address] TS GELon 01-17-2021 TS GEL ABO Group: A Rh, Gel: POS Antibody Screen Gel: NEG Normal [facility] Comment on above: Performed By: #### T SGL #### [facility] XR ABDOMEN (KUB) (SINGLE AP VIEW)Ordered By: Suri Estrada on 01-17-2021 Patient Name: SHAUNA RAINEY Diagnostic Radiology ACCESSION EXAM DATE/TIME PROCEDURE ORDERING PROVIDER [id number] 01/17/2021 02:10 EDT CR Abdomen AP [id number] -SURI ESTRADA CPT code 96032 Reason For Exam (CR Abdomen AP) s/p [...] R Transcribed Date and Time: 01/17/2021 2:[address] [facility] Work Phone: [facility] From [facility] - 01/17/2021 2:11 AM EDT Patient Name: SHAUNA RAINEY Diagnostic Radiology ACCESSION EXAM DATE/TIME PROCEDURE ORDERING PROVIDER [id number] 01/17/2021 02:10 EDT CR Abdomen AP [id number] -SURI ESTRADA CPT code 18272 Reason For Exam (CR Abdomen AP) s/p [...] bowel gas pattern. Report Dictated on Workstation: [employer] --- Final --- Dictated: 01/17/2021 2:09 am Dictating Physician: MD LEAL JONATHAN R Signed Date and Time: 01/17/2021 2:10 am Signed by: MD LEAL JONATHAN R Transcribed Date and Time: 01/17/2021 2:09 [facility] Work Phone: [phone] [facility] Work Phone: [phone] CBCOrdered By: Suri Jose ers on 01-16-2021 Hematocrit (Bld) [Volume fraction] 32.6 % Low 35.0 - 47.0 % [facility] Work Phone: [phone] Hemoglobin.gastrointe stinal spec 1 Ql (Stl) 10.9 g/dL Low 11.7 - 16.0 g/dL [facility] Work Phone: [phone] Interpretation and review of laboratory results Abnormal [facility] Work Phone: [phone] MCH (RBC) [Entitic mass] 26.7 pg 26.0 - 34.0 pg [facility] Work Phone: [phone] MCHC (RBC) [Mass/Vol] 33.4 % 32.0 - 36.0 % [facility] Work Phone: [phone] MCV (RBC) [Entitic vol] 79.9 fL 79.0 [...] 10*3/uL [facility] Work Phone: Test Performed by [address] [address] [employer] Work Phone: [employer] Work Phone: Comprehensive Metabolic Pane lOrdered By: Suri Estrada on 01-16-2021 Albumin [Mass/Vol] 3.5 g/dL 3.5 - 5.0 g/dL [employer] Work Phone: ALP (Bld) [Catalytic activity/Vol] 128 U/L High 38 - 126 U/L [employer] Work Phone: ALT [Catalytic activity/Vol] 11 U/L 0 - 34 U/L [facility] Work Phone: Comment on above: The ALT test is perf ormed by an updated assay method. Please note that the reference intervals have been changed and are now sex specific. Anion gap [Moles/Vol] 5 mmol/L 3 - 13 mmol/L [employer] Work Phone: AST [Catalytic activity/Vol] 26 U/L 15 - 46 U/L [employer] Work Phone: Bilirubin [Mass/Vol] 0.5 mg/dL 0.2 - 1 .3 mg/dL [employer] Work Phone: [phone] Calcium [Mass/Vol] 9.5 mg/dL 8.4 - 10. 4 mg/dL [facility] Work Phone: [phone] Chloride [Moles/Vol] 107 mmol/L 98 - 10 7 mmol/L [facility] Work Phone: [phone] CO2 [Moles/Vol] 20 mmol/L Low 22 - 30 mmol/L [facility] Work Phone: [phone] Creatinine [Mass/Vol] 0.4 mg/dL Low 0.52 - 1.25 mg/dL [facility] Work Phone: [phone] EGFR IF NonAfrican [place] >90.0 >60 mL/min [facility] Work Phone: [phone] Comment on above: KDIGO guidelines pro vide [...] fraction] 6.7 g/dL 6.3 - 8.2 g/dL [facility] Work Phone: [phone] GFR/1.73 sq M.predicted among blacks MDRD (S/P/Bld) [Vol rate/Area] mL/min/{1.73_m2} >60 mL/min [facility] Work Phone: [phone] Glucose [Mass/Vol] 75 mg/dL 70 - 100 mg/dL [facility] Work Phone: [phone] Interpretation and review of laboratory results Abnormal [facility] Work Phone: [phone] Potassium [Moles/Vol] 3.5 mmol/L 3.5 - 5.1 mmol/L [facility] Work Phone: [phone] Sodium [Moles/Vol] 133 mmol/L Low 135 - 145 mmol/L [facility] Work Phone: [phone] Urea nitrogen (BldV) [Mass/Vol] 10 mg/dL 7 - 20 mg/dL [facility] Work Phone: [phone] Test Performed by [facility], [facility] [place] [address] [facility] Work Phone: [phone] [facility] Work Phone: [phone] AND SCREENOrdered By: Vik Estrada on 01-16-2021 ABO Grouping A [facility] Work Phone: [phone] Type Positive [facility] Work Phone: [phone] Test Performed by [facility], [facility] [place] [address] [facility] Work Phone: [phone] [facility] Work Phone: [phone] POC Basic Metabolic Panelon 10-27-2020 Calcium.ionized (Bld) [Mass/Vol] 4.3 mg/dL Low 4.5 - 5.3 mg/dL [facility] Chloride [Moles/Vol] 106 mmol/L 98 - 10 8 mmol/L [facility] CO2 [Moles/Vol] 20 mmol/L Low 21 - 32 mmol/L [facility] Creatinine [Mass/Vol] 0.37 mg/dL Low 0.40 - 1.10 [facility] GFR/1.73 sq M.predicted MDRD (S/P/Bld) [Vol rate/Area] 151 mL/min/{1.73_m2} >=60 mL/min/1.73 m2 [facility] Glucose [Mass/Vol] 109 mg/dL High 65 - 99 mg/dL [facility] Interpretation and review of laboratory results Abnormal [facility] Potassium [Moles/Vol] 3.7 mmol/L 3.5 - 5.1 mmol/L [facility] Sodium [Moles/Vol] 137 mmol/L 135 - 145 mmol/L [facility] Urea nitrogen [Mass/Vol] 9 mg/dL 8 - 25 mg/dL [facility] POC CBC and Differentialon 0 10-27-2020 Basophils (Bld) [#/Vol] 0.02 10*3/uL [facility] Basophils/100 WBC (Bld) 0.2 % [facility] Eosinophils (Bld) [#/Vol] 0.08 10*3/uL [facility] Eosinophils/100 WBC (Bld) 0.8 % [facility] Erythrocyte distribution width (RBC) [Entitic vol] 14.7 % 11.6 - 14.8 % [facility] Hematocrit (Bld) [Volume fraction] 40.1 % 36.0 - 46.0 % [facility] Hemoglobin (Bld) [Mass/Vol] 13.2 g/dL 12.0 - 16.0 g/dL [facility] Immature granulocytes (Bld) [#/Vol] 0.04 10*3/uL [facility] Immature granulocytes/100 WBC (Bld) 0.40 % [facility] Comment on above: The IG parameter is the percentage of metamyelocytes, myelocytes and promyelocytes. An immature granulocyte count (IG) of 1% or more suggests the possibility of infection, an IG count of 3% is very likely related to an infection. Interpretation and review of laboratory results Abnormal [facility] Lymphocytes (Bld) [#/Vol] 0.81 10*3/uL Low [facility] Lymphocytes/100 WBC (Bld) 7.6 % [facility] MCH (RBC) [Entitic mass] 29.7 pg 26.0 - 34.0 pg [facility] MCHC (RBC) [Mass/Vol] 32.9 g/dL 31.0 - 37.0 g/dL [facility] MCV (RBC) [Entitic vol] 90.1 fL 80.0 - 100.0 fL [facility] Monocytes (Bld) [#/Vol] 0.43 10*3/uL [facility] Monocytes/100 WBC (Bld) 4.1 % [facility] Neutrophils (Bld) [#/Vol] 9.23 10*3/uL High [facility] Neutrophils/100 WBC (Bld) 86.9 % [facility] Platelet mean volume (Bld) [Entitic vol] 9.5 fL 9.4 - 12.4 fL [facility] Platelets (Bld) [#/Vol] 197 10*3/uL [facility] RBC (Bld) [#/Vol] 4.45 10*6/uL [facility] WBC (Bld) [#/Vol] 10.61 10*3/uL [facility] POC Liver Panel Pluson 03-21 -2021 Albumin [Mass/Vol] 3.1 g/dL Low 3.2 - 5.2 g/dL [facility] ALP [Catalytic activity/Vol] 57 U/L 40 - 140 U/L [facility] ALT [Catalytic activity/Vol] 16 U/L 0 - 40 U/L [facility] Amylase [Catalytic activity/Vol] 46 U/L 25 - 115 U/L [facility] AST [Catalytic activity/Vol] 21 U/L 0 - 45 U/L [facility] Bilirubin [Mass/Vol] 0.5 mg/dL 0.0 - 1 .3 mg/dL [facility] Gamma glutamyl transferase [Catalytic activity/Vol] 6 U/L Low 7 - 33 U/L [facility] Interpretation and review of laboratory results Abnormal [facility] Protein [Mass/Vol] 6.9 g/dL 6.0 - 8.0 g/dL [facility] C. Trachomatis, External Res ultOrdered By: Historical Provider on 07-22-2020 C. Trachomatis, External Result Negative [facility] Work Phone: [phone] GBS, External ResultOrdered By: Historical Provider on 07-22-2020 GBS, External Result Positive [facility] Work Phone: [phone] HIV, External ResultOrdered By: Historical Provider on 07-22-2020 HIV, External Result Non-Reactive [facility] [employer] Work Phone: [phone] Hepatitis B, External Result Ordered By: Historical Provider on 07-22-2020 Hep B, External Result Non-Reactive [facility] Work Phone: [phone] Hepatitis C Antibody, [employer] Business Representative al ResultOrdered By: Historical Provider on 07-22-2020 Hepatitis C Antibody, External Result Non-Reactive [facility] Work Phone: [phone] N. Gonorrhoeae, External Res ultOrdered By: Historical Provider on 07-22-2020 N. Gonorrhoeae, External Result Negative [facility] Work Phone: [phone] No Panel InformationOrdered By: Historical Provider on 07-22-2020 Results reviewed michaela herrera rn [facility] Work Phone: [phone] [facility] Work Phone: [phone] [facility] Work Phone: [phone] RPR, External LabOrdered By: Historical Provider on 07-22-2020 RPR, External Result Non-Reactive [facility] Work Phone: Rubella Titer, External Resu ltOrdered By: Historical Provider on 07-22-2020 Rubella Titer, External Result Reactive [facility] Work Phone: CLASSIFIED COPY CONTROL CLERK - Office Visiton 11-0 CLASSIFIED COPY CONTROL CLERK - Office Visit Chief Complaint Patient is [...] PM Vitals Vital Signs Recorded: 09Jun2019 10:10AM Mgufjhae626 Gjvehnlch66 Height4 ft 11 in Ftnvmv19.7 kg BMI Kjkeycicvp05.36 BSA Calculated1.59 LMPBreastfeeding Physical Exam PHYSICAL EXAMINATION: [...] Micronor); TAKE 1 TABLET DAILY Rx By: Trenton Marquez; Dispense: 28 Days ; #:1 X 28 Tablet Pack; Refill: 6;For: Counseling for control, oral contraceptives; SHANNA = N; Sent To: [facility] 1448 Provider Impressions checkup She will be started on Micronor for contraception. Follow up in November for her annual exam. Signatures Electronically signed by : Trenton Marquez MD; Jun 09 2019 10:23AM EST (Author) Normal [employer] CLASSIFIED COPY CONTROL CLERK - Office Visiton 10-0 CLASSIFIED COPY CONTROL CLERK - Office Visit Chief Complaint Patient is [...] PM Vitals Vital Signs Recorded: 15May2019 02:52PM Clqdoahl127 Rrfdedigq94 Wemthv743 cm Ycpptr07.2 kg BMI Aradfgffmr49.65 BSA Calculated1.63 Physical Exam Constitutional: Alert and in no acute distress. Well developed, well nourished. Head and Face: Head and face: Normal. Eyes: Normal external exam - nonicteric sclera, extraocular movements intact (EOMI) and no ptosis. Abdomen: Soft nontender; no abdominal mass palpated. Noted well-healed low Pfannenstiel scar. [place] were removed and Steri-Strips were applied. Psychiatric: [...] her checkup. Signatures Electronically signed by : Trenton Marquez MD; May 15 2019 3:55PM EST (Author) Normal [employer] CBCon 05-13-2019 Erythrocyte distribution width (RBC) [Ratio] 16.8 % High 11.5 - 14.5 [facility] Comment on above: Performed By: #### C BC #### [address] [address] Hematocrit (Bld) [Volume fraction] 29.7 % Low 36.0 - 46.0 [facility] Comment on above: Performed By: #### C BC #### [address] [address] Hemoglobin (Bld) [Mass/Vol] 9.5 g/dL Low 12.0 - 16.0 [facility] Comment on above: Performed By: #### C BC #### [address] [address] MCHC (RBC) [Mass/Vol] 32.0 g/dL Normal 32.0 - 36.0 [facility] Comment on above: Performed By: #### C BC #### [address] [address] MCV (RBC) [Entitic vol] 82 fL Normal 80 - 100 [facility] Comment on above: Performed By: #### C BC #### [address] [address] Platelets (Bld) [#/Vol] 121 10*3/uL Low 150 - 450 [facility] Comment on above: Performed By: #### C BC #### [address] [address] RBC (Bld) [#/Vol] 3.63 x10E12/L Low 4.00 - 5.20 [facility] Comment on above: Performed By: #### C BC #### [address] [address] WBC (Bld) [#/Vol] 7.4 10*3/uL Normal 4.4 - 11.3 [facility] Comment on above: Performed By: #### C BC #### [address] [address] Daily Progress Note - OB-Pos t-partumon 05-13-2019 Daily Progress Note - WN-Pjvd-hypadr Current Stage: Stage: Post- Subjective Data: Post : Ambulate: Yes Flatus: Yes Tolerate Diet: Yes Lochia: Light Objective Information: Objective Information: T PRBPSpO2 Value36.7434460/5498% Date/Time05/13 4:9/ 4:5 4:0015 4:0010/5 4:00 Range(36.6C [...] is healing well without erythema or drainage. Norwood are in place Extremities: no calf tenderness, [...] desires to go home today. Electronic Signatures: Trenton Marquez) (Signed 13-May-2019 06:25) Authored: Current Stage, Subjective Data, Objective Data, Assessment and Plan, Signature/Cosignature/Att estation Last Updated: 13-May-2019 06:25 by Trenton Marquez) [facility] Discharge [id number] Discharge Profile2 Discharge Orders: Anticipated Discharge Date: Anticipated Discharge [id number] Anticipated Discharge Time06:58 Problem List: Admitting Dx: Previous section: Catalog Name: History of uterine scar from previous surgery Hospital Providers: Provider RoleProvider Name AttendingTrenton Marquez Activity: activity as tolerated. May shower. May drive. Diet: Dietregular Provider FINAL REVIEW of Orders: Final Review: Final Review of Medication Reconciliation and Orders Completedby Physician Reviewing Ronald Marquez MD at 13-May-2019 07:08:21 Appointments: Coumadin (Warfarin) Follow-Up Monitoring: Physician/Dept/Chasity Marquez MD Follow-Up Appointment 01: Physician/Dept/Chasity Marquez Call to Schedule in2-3 days Locationoffice Phone [phone] CommentsCall for appointment for May 15 for staple removal Electronic Signatures: Trenton Marquez) (Signed 13-May-2019 07:08) Authored: Discharge Orders, Provider FINAL REVIEW of Orders, Appointments, Gold Form - Retirement Manager Summary Last Updated: 13-May-2019 07:08 by Trenton Marquez) [facility] TYPE + SCREENon 05-13-2019 ABO TYPE A [facility] Comment on above: Performed By: #### T +S #### [place] [address] RH TYPE Positive [facility] Comment on above: Performed By: #### T +S #### [place] [address] Hematocriton 05-12-2019 Hematocrit (Bld) [Volume fraction] 29.4 % Low 36.0-48.0 [facility] Comment on above: Performed By: #### 6 [id number] #### [facility] Chemistry Manual Subsection [address] [place] [address] Hemoglobinon 05-12-2019 Hemoglobin (Bld) [Mass/Vol] 9.4 g/dL Low 12.0-16.0 [facility] Comment on above: Performed By: #### 2 [id number] #### [employer] [address] [place] [address] Placenta Pathology Request - NO EXAMon 05-12-2019 Placenta Pathology Request - NO EXAM Collected Normal [facility] Comment on above: Performed By: #### 6 [id number] #### [facility] Chemistry Manual Subsection [address] [place] [address] RPRon 05-12-2019 Reagin Ab RPR Ql (S) Non-Reactive Normal Non-Reactive [facility] Comment on above: Performed By: #### 6 [id number] #### [facility] Chemistry Manual Subsection [facility] [place] [address] ABO/Rh Echoon 05-09-2019 ABO/Rh E Interp... Positive Normal [facility] Comment on above: Performed By: #### 2 [id number] #### [employer] [address] [place] [address] Antibody Screen Cap...on Screen Interp... Negative Normal [facility] Comment on above: Performed By: #### 2 [id number] #### [employer] [address] [place] [address] Auto Diffon 05-09-2019 Basophils (Bld) [#/Vol] 0.1 E3/mcL Normal 0.0-0.2 [facility] Comment on above: Order Comment: Order Added by Discern Expert. Performed By: #### 2 [id number] #### [employer] [address] [place] [address] Basophils/100 WBC (Bld) 0.8 % Normal 0.0-2.0 [facility] Comment on above: Order Comment: Order Added by Discern Expert. Performed By: #### 2 [id number] #### [employer] [address] [place] [address] Eos Absolute 0.1 E3/mcL Normal 0.0-0.7 [facility] Comment on above: Order Comment: Order Added by Discern Expert. Performed By: #### 2 [id number] #### [employer] [address] [place] [address] Eosinophils/100 WBC (Bld) 1.5 % Normal 0.0-11.0 [facility] Comment on above: Order Comment: Order Added by Discern Expert. Performed By: #### 2 [id number] #### [employer] [address] [place] [address] Lymphocytes (Bld) [#/Vol] 2.2 E3/mcL Normal 1.2-3.4 [facility] Comment on above: Order Comment: Order Added by Discern Expert. Performed By: #### 2 [id number] #### [employer] [address] [place] [address] Lymphocytes/100 WBC (Bld) 33.5 % Normal 20.0-55.0 [facility] Comment on above: Order Comment: Order Added by Discern Expert. Performed By: #### 2 [id number] #### [facility] [employer] [address] [place] [address] [place] Absolute 0.5 E3/mcL Normal 0.0-0.7 [facility] Comment on above: Order Comment: Order Added by Discern Expert. Performed By: #### 2 [id number] #### [facility] [employer] [address] [place] [address] Monocytes/100 WBC (Bld) 8.2 % Normal 0.0-10.0 [facility] Comment on above: Order Comment: Order Added by Discern Expert. Performed By: #### 2 [id number] #### [employer] [address] [place] [address] Neutro Absolute 3.6 E3/mcL Normal 1.4-6.5 [facility] Comment on above: Order Comment: Order Added by Discern Expert. Performed By: #### 2 [id number] #### [employer] [address] [place] [address] Neutro Auto 56.0 % Normal 37.0-75.0 [facility] Comment on above: Order Comment: Order Added by Discern Expert. Performed By: #### 2 [id number] #### [employer] [address] [place], [place] [id number] CBC w/ Auto Diffon 9 Erythrocyte distribution width (RBC) [Ratio] 16.5 % High 11.5-14.5 [facility] Comment on above: Performed By: #### 2 [id number] #### [employer] [address] [place] [address] Hematocrit (Bld) [Volume fraction] 35.5 % Low 36.0-48.0 [facility] Comment on above: Performed By: #### 2 [id number] #### [employer] [address] [place] [address] Hemoglobin (Bld) [Mass/Vol] 11.5 g/dL Low 12.0-16.0 [facility] Comment on above: Performed By: #### 2 [id number] #### [employer] [address] [place] [address] MCH (RBC) [Entitic mass] 25.9 pg Low 27.0-31.0 [facility] Comment on above: Performed By: #### 2 [id number] #### [employer] [address] [place] [address] MCHC (RBC) [Mass/Vol] 32.3 g/dL Low 33.0-37.0 [facility] Comment on above: Performed By: #### 2 [id number] #### [employer] [address] [place] [address] MCV (RBC) [Entitic vol] 80.2 fL Normal 78.0-100.0 [facility] Comment on above: Performed By: #### 2 [id number] #### [employer] [address] [place] [address] Platelet mean volume (Bld) [Entitic vol] 8.7 fL Normal 7.4-11.0 [facility] Comment on above: Performed By: #### 2 [id number] #### [employer] [address] [place] [address] Platelets (Bld) [#/Vol] 146 E3/mcL Normal 130-400 [facility] Comment on above: Performed By: #### 2 [id number] #### [employer] [address] [place] [address] RBC (Bld) [#/Vol] 4.43 E6/mcL Normal 3.90-5.40 [facility] Comment on above: Performed By: #### 2 [id number] #### [employer] [address] [place], [place] [id number] WBC (Bld) [#/Vol] 6.5 E3/mcL Normal 3.6-11.0 [facility] [facility] Comment on above: Performed By: #### 2 [id number] #### [employer] [address] [place] [address] 87289 Group B Strep PCRon 04-21-20 19 Group B Strep PCR Negative Normal [facility] Comment on above: Order Comment: For p ositive results only; Penicillin is the recommended antibiotic for the treatment of Group B Streptococcal disease. In case of penicillin allergy, Clindamycin may be used.All Negative GBS Screens by PCR will be confirmed by culture. Performed By: #### 2 [id number] #### [employer] [address] [place] [address] 59503 Auto Diffon 02-06-2019 Basophils (Bld) [#/Vol] 0.0 E3/mcL Normal 0.0-0.2 [facility] Comment on above: Order Comment: Order Added by Discern Expert. Performed By: #### 2 [id number] #### [employer] [address] [place] [address] 57282 Basophils/100 WBC (Bld) 0.5 % Normal 0.0-2.0 [facility] Comment on above: Order Comment: Order Added by Discern Expert. Performed By: #### 2 [id number] #### [employer] [address] [place] [address] 90532 Eos Absolute 0.1 E3/mcL Normal 0.0-0.7 [facility] Comment on above: Order Comment: Order Added by Discern Expert. Performed By: #### 2 [id number] #### [employer] [address] [place] [address] 21690 Eosinophils/100 WBC (Bld) 1.5 % Normal 0.0-11.0 [facility] Comment on above: Order Comment: Order Added by Discern Expert. Performed By: #### 2 [id number] #### [employer] [address] [place] [address] 85579 Lymphocytes (Bld) [#/Vol] 2.1 E3/mcL Normal 1.2-3.4 [facility] Comment on above: Order Comment: Order Added by Discern Expert. Performed By: #### 2 [id number] #### [employer] [address] [place] [address] 57953 Lymphocytes/100 WBC (Bld) 21.7 % Normal 20.0-55.0 [facility] Comment on above: Order Comment: Order Added by Discern Expert. Performed By: #### 2 [id number] #### [employer] [address] [place] [address] 67762 Kenton Absolute 0.6 E3/mcL Normal 0.0-0.7 [facility] Comment on above: Order Comment: Order Added by Discern Expert. Performed By: #### 2 [id number] #### [employer] [address] [place] [address] 89341 Monocytes/100 WBC (Bld) 6.8 % Normal 0.0-10.0 [facility] Comment on above: Order Comment: Order Added by Discern Expert. Performed By: #### 2 [id number] #### [employer] [address] [place] [address] 89959 Neutro Absolute 6.6 E3/mcL High 1.4-6.5 [facility] Comment on above: Order Comment: Order Added by Discern Expert. Performed By: #### 2 [id number] #### [employer] [address] [place] [address] Neutro Auto 69.5 % Normal 37.0-75.0 [facility] Comment on above: Order Comment: Order Added by Discern Expert. Performed By: #### 2 [id number] #### [employer] [address] [place] [address] 33778 CBC w/ Auto Diffon 9 Erythrocyte distribution width (RBC) [Ratio] 14.4 % Normal 11.5-14.5 [facility] Comment on above: Performed By: #### 2 [id number] #### [employer] [address] [place] [address] 37656 Hematocrit (Bld) [Volume fraction] 33.9 % Low 36.0-48.0 [facility] Comment on above: Performed By: #### 2 [id number] #### [employer] [address] [place] [address] 82092 Hemoglobin (Bld) [Mass/Vol] 11.3 g/dL Low 12.0-16.0 [facility] Comment on above: Performed By: #### 2 [id number] #### [employer] [address] [place] [address] 96942 MCH (RBC) [Entitic mass] 29.7 pg Normal 27.0-31.0 [facility] Comment on above: Performed By: #### 2 [id number] #### [employer] [address] [place] [address] 70755 MCHC (RBC) [Mass/Vol] 33.2 g/dL Normal 33.0-37.0 [facility] Comment on above: Performed By: #### 2 [id number] #### [employer] [address] [place] [address] 60484 MCV (RBC) [Entitic vol] 89.5 fL Normal 78.0-100.0 [facility] Comment on above: Performed By: #### 2 [id number] #### [employer] [address] [place] [address] 90333 Platelet mean volume (Bld) [Entitic vol] 7.7 fL Normal 7.4-11.0 [facility] Comment on above: Performed By: #### 2 [id number] #### [employer] [address] [place] [address] 43790 Platelets (Bld) [#/Vol] 190 E3/mcL Normal 130-400 [facility] Comment on above: Performed By: #### 2 [id number] #### [employer] [address] [place] [address] 40465 RBC (Bld) [#/Vol] 3.79 E6/mcL Low 3.90-5.40 [facility] Comment on above: Performed By: #### 2 [id number] #### [employer] [address] [place] [address] 10196 WBC (Bld) [#/Vol] 9.5 E3/mcL Normal 3.6-11.0 [facility] Comment on above: Performed By: #### 2 [id number] #### [employer] [address] [place] [address] 01966 Gest Scr Glu 1 Hron 02-07-20 19 Glucose [Mass/Vol] 112 mg/dL Normal 70-140 [facility] Comment on above: Performed By: #### 2 [id number] #### [employer] [address] [place] [address] URINALYSISon 01-04-2019 Bacteria Auto Ql (U) Rare Abnormal None Se en /hpf [facility] Bilirubin Ql (U) Negative Negative [facility] Cl[facility] Refractometry automated Nom (U) Hazy Abnormal Clear [facility] Color Nom (U) Yellow Colorless, Yellow [facility] Epithelial cells.squamous Auto #/area (Urine sed) 2 [facility] Glucose Automated test strip mass conc (U) Negative Negative mg/dL [facility] Hemoglobin Automated test strip Ql (U) Large Abnormal Negative [facility] Interpretation and review of laboratory results Abnormal [facility] Ketones mass conc (U) >=80 Abnormal Negati ve mg/dL [facility] Leukocyte esterase Automated test strip Ql (U) Negative Negative [facility] Mucus Auto #/area (Urine sed) Rare None Seen, Rare /lpf [facility] Nitrite Automated test strip Ql (U) Negative Negative [facility] pH (U) 5.0 [pH] [facility] Protein mass conc (U) 100 Abnormal Negati ve mg/dL [facility] RBC Auto #/area (Urine sed) >180 High [facility] Specific gravity Relative Density (U) 1.028 High [facility] Urobilinogen mass conc (U) <2.0 <2.0 mg/dL [facility] WBC Auto #/area (Urine sed) <1 [facility] Microscopic examinat ion is performed on all urinalysis samples and only positive findings are reported. The test for blood on the chemical analytic portion of urinalysis may also be positive due to hemoglobinuria and myoglobinuria and if red blood cells are present they are quantified by microscopic examination. [facility] US Renal Onlyon 01-04-2019 1. Eqfz-zn-elckohxe hydronephrosis of the left kidney; however, no apparent cause is identified. If patient has a distal left ureteral calculus would be a consideration. Other etiologies, such as mass in the distal abdomen or pelvis, could result in similar process. 2. Normal-appearing right kidney. KKV/ads Workstation ID: [id number] [facility] CLINICAL HISTORY: Le ft flank pain. EXAMINATION: [...] mass, hydronephrosis, nephrolithiasis, or perinephric fluid collections. [facility] Interface, Rad In Fu ji Speechq - [...] nephrolithiasis, or perinephric fluid collections. IMPRESSION: 1. Jisd-if-brcjequz hydronephrosis of the left kidney; however, no apparent cause is identified. If patient has a distal left ureteral calculus would be a consideration. Other etiologies, such as mass in the distal abdomen or pelvis, could result in similar process. 2. Normal-appearing right kidney. [employer] Workstation ID: [id number] [facility] US After 1st Trime steron 12-26-2018 US After 1st Trimester Exam Date/Time: 12/26/2018 09:59 EDT Reason for Exam: DATES AND ANATOMY;Standard Anatomy Report STUDY: US After 1st Trimester 12/26/2018 9:59 am INDICATION: Standard Anatomy. COMPARISON: None. ACCESSION NUMBER(S): [id number] ORDERING CLINICIAN: Trenton Marquez TECHNIQUE: Routine ultrasound of the pelvis [...] by: Adithya Shaw MD Technologist: JACINTO Normal [facility] Auto Diffon 12-13-2018 Basophils (Bld) [#/Vol] 0.0 E3/mcL Normal 0.0-0.2 [facility] Comment on above: Order Comment: Order Added by Discern Expert. Performed By: #### 2 [id number] #### [employer] [address] [place] [address] Basophils/100 WBC (Bld) 0.4 % Normal 0.0-2.0 [facility] Comment on above: Order Comment: Order Added by Mateus Expert. Performed By: #### 2 753030 #### [employer] [address] [place] [address] Eos Absolute 0.1 E3/mcL Normal 0.0-0.7 [facility] Comment on above: Order Comment: Order Added by Discern Expert. Performed By: #### 2 [id number] #### [employer] [address] [place] [address] Eosinophils/100 WBC (Bld) 1.1 % Normal 0.0-11.0 [facility] Comment on above: Order Comment: Order Added by Discern Expert. Performed By: #### 2 [id number] #### [employer] [address] [place] [address] Lymphocytes (Bld) [#/Vol] 1.6 E3/mcL Normal 1.2-3.4 [facility] Comment on above: Order Comment: Order Added by Discern Expert. Performed By: #### 2 [id number] #### [employer] [address] [place] [address] Lymphocytes/100 WBC (Bld) 19.5 % Low 20.0-55.0 [facility] Comment on above: Order Comment: Order Added by Discern Expert. Performed By: #### 2 134924 #### [employer] [address] [place] [address] Kenton Absolute 0.5 E3/mcL Normal 0.0-0.7 [facility] Comment on above: Order Comment: Order Added by Discern Expert. Performed By: #### 2 542078 #### [employer] [address] [place] [address] Monocytes/100 WBC (Bld) 6.5 % Normal 0.0-10.0 [facility] Comment on above: Order Comment: Order Added by Discern Expert. Performed By: #### 2 [id number] #### [employer] [address] [place] [address] Neutro Absolute 5.9 E3/mcL Normal 1.4-6.5 [facility] Comment on above: Order Comment: Order Added by Discern Expert. Performed By: #### 2 384333 #### [employer] [address] [place] [address] Neutro Auto 72.5 % Normal 37.0-75.0 [facility] Comment on above: Order Comment: Order Added by Discern Expert. Performed By: #### 2 [id number] #### [employer] [address] [place] [address] BMPon 12-13-2018 Anion gap [Moles/Vol] 11 mmol/L Normal 10-20 [facility] Comment on above: Performed By: #### 2 070005 #### [employer] [address] [place] [address] Calcium [Mass/Vol] 8.7 mg/dL Normal 8.6-10.3 [facility] Comment on above: Performed By: #### 2 [id number] #### [employer] [address] [place] [address] Chloride [Moles/Vol] 105 mmol/L Normal 98-107 [facility] Comment on above: Performed By: #### 2 [id number] #### [employer] [address] [place] [address] CO2 [Moles/Vol] 24.0 mmol/L Normal 21.0-32.0 [facility] Comment on above: Performed By: #### 2 803859 #### [employer] [address] [place] [address] Creatinine [Mass/Vol] 0.4 mg/dL Low 0.5-1.1 [facility] Comment on above: Performed By: #### 2 870390 #### [employer] [address] [place] [address] Glucose [Mass/Vol] 92 mg/dL Normal 70-99 [facility] Comment on above: Performed By: #### 2 871807 #### [employer] [address] [place] [address] Potassium [Moles/Vol] 3.7 mmol/L Normal 3.5-5.3 [facility] Comment on above: Performed By: #### 2 500401 #### [employer] [address] [place] [address] Sodium [Moles/Vol] 136 mmol/L Normal 136-145 [facility] Comment on above: Performed By: #### 2 553999 #### [employer] [address] [place] [address] Urea nitrogen [Mass/Vol] 9 mg/dL Normal 6-23 [facility] Comment on above: Performed By: #### 2 025782 #### [employer] [address] [place] [address] Urea nitrogen/Creatinine [Mass ratio] 22.5 ratio Normal 5.4-30.0 [facility] Comment on above: Performed By: #### 2 [id number] #### [employer] [address] [place] [address] CBC w/ Auto Diffon 9 Erythrocyte distribution width (RBC) [Ratio] 14.4 % Normal 11.5-14.5 [facility] Comment on above: Performed By: #### 2 160535 #### [employer] [address] [place] [address] Hematocrit (Bld) [Volume fraction] 37.6 % Normal 36.0-48.0 [facility] Comment on above: Performed By: #### 2 485554 #### [employer] Rem[employer] [facility] [place] [address] Hemoglobin (Bld) [Mass/Vol] 12.5 g/dL Normal 12.0-16.0 [facility] Comment on above: Performed By: #### 2 307492 #### [employer] [address] [place] [address] MCH (RBC) [Entitic mass] 30.1 pg Normal 27.0-31.0 [facility] Comment on above: Performed By: #### 2 210191 #### [employer] [address] [place] [address] MCHC (RBC) [Mass/Vol] 33.4 g/dL Normal 33.0-37.0 [facility] Comment on above: Performed By: #### 2 248027 #### [employer] [address] [place] [address] MCV (RBC) [Entitic vol] 90.2 fL Normal 78.0-100.0 [facility] Comment on above: Performed By: #### 2 649287 #### [employer] [address] [place] [address] Platelet mean volume (Bld) [Entitic vol] 8.0 fL Normal 7.4-11.0 [facility] Comment on above: Performed By: #### 2 598305 #### [employer] [address] [place] [address] Platelets (Bld) [#/Vol] 211 E3/mcL Normal 130-400 [facility] Comment on above: Performed By: #### 2 [id number] #### [employer] [address] [place] [address] RBC (Bld) [#/Vol] 4.17 E6/mcL Normal 3.90-5.40 [facility] Comment on above: Performed By: #### 2 142467 #### [employer] [address] [place] [address] WBC (Bld) [#/Vol] 8.2 E3/mcL Normal 3.6-11.0 [facility] Comment on above: Performed By: #### 2 159799 #### [employer] [address] [place] [address] Hep Func Panelon 12-13-2018 Albumin [Mass/Vol] 3.7 g/dL Normal 3.4-5.0 [facility] Comment on above: Performed By: #### 2 524178 #### [employer] [address] [place] [address] Albumin/Globulin [Mass ratio] 1.5 {ratio} Normal 1.1-1.9 [facility] Comment on above: Performed By: #### 2 133421 #### [employer] [address] [place] [address] Alk Phos 43 Int._Unit/L Normal 33-110 [facility] Comment on above: Performed By: #### 2 133417 #### [employer] [address] [place] [address] ALT [Catalytic activity/Vol] 11 Int._Unit/L Normal 7-45 [facility] Comment on above: Performed By: #### 2 997549 #### [employer] [address] [place] [address] AST [Catalytic activity/Vol] 12 Int._Unit/L Normal 9-39 [facility] Comment on above: Performed By: #### 2 107951 #### [employer]LEX [employer] [address] [place] [address] Bili Direct 0.07 mg/dL Normal 0.00-0.30 [facility] Comment on above: Performed By: #### 2 921452 #### [employer]LEX [employer] [facility] [place] [address] Bili Indirect 0.24 mg/dL Normal [facility] Comment on above: Result Comment: No e stablished ranges available for the indirect bilirubin Performed By: #### 2 838451 #### [employer] [address] [place] [address] 95752 Bili Total 0.31 mg/dL Normal 0.00-1.20 [facility] Comment on above: Performed By: #### 2 246857 #### [employer]LEX [address] [address] Globulin (S) [Mass/Vol] 3.0 g/dL Normal 2.0-4.0 [facility] Comment on above: Performed By: #### 2 353330 #### [employer]LEX [address] [address] Protein [Mass/Vol] 6.2 g/dL Low 6.4-8.2 [facility] Comment on above: Performed By: #### 2 [id number] #### [employer] [address] [place] [address] Lipase Levelon 12-13-2018 Lipase Lvl 14 Int._Unit/L Normal 9-82 [facility] Comment on above: Performed By: #### 2 143091 #### [employer] [address] [place] [address] UA Completeon 12-13-2018 Color (U) Yellow Normal Yellow [facility] Comment on above: Performed By: #### 2 708089 #### [employer]LEX Tim[employer]so [facility] [place] [address] Glucose (U) [Mass/Vol] Negative Normal Negative [facility] Comment on above: Performed By: #### 2 185183 #### ALEXLora ZepedaHemo [facility] [place] [address] Ketones Ql (U) Trace Normal [facility] Comment on above: Performed By: #### 2 549265 #### [employer] [address] [place] [address] RBC (U) [#/Vol] /uL Abnormal 0-3 [facility] Comment on above: Performed By: #### 2 766412 #### [employer] [address] [place] [address] UA Blood 3+ Normal Negative [facility] Comment on above: Performed By: #### 2 099855 #### [employer] [address] [place] [address] UA Clarity Cloudy Abnormal Clear [facility] Comment on above: Performed By: #### 2 366052 #### [employer] [address] [place] [address] UA Leuk Est Negative Normal Negative [facility] Comment on above: Performed By: #### 2 619538 #### [employer] [address] [place] [address] UA Mucous Many Abnormal Trace [facility] Comment on above: Performed By: #### 2 164581 #### [employer] [address] [place] [address] UA Nitrite Negative Normal Negative [facility] Comment on above: Performed By: #### 2 584630 #### [employer] [address] [place] [address] UA pH 5.0 Normal 4.6-8.0 [facility] Comment on above: Performed By: #### 2 087046 #### [employer] [address] [place] [address] UA Protein 2+ Abnormal Negative [facility] Comment on above: Performed By: #### 2 306053 #### [employer] [address] [place] [address] UA Spec Grav 1.032 High 1.003-1.030 [facility] Comment on above: Performed By: #### 2 286393 #### [employer]LEX [employer] [address] [place] [address] UA Squam Epithelial 0-5 Normal 0-[address] [facility] Comment on above: Performed By: #### 2 297898 #### ALEX ZepedaHemo [address] [place] [address] UA Urobilinogen Negative Normal [facility] Comment on above: Result Comment: Due to a manufacturing issue, low positive urobilinogen results may be fasely positive. Correlate with urine bilirubin and additional clinical/laboratory findings to assess the risk of hemolytic anemia or liver disease. If clinically indicated, repeat testing with an alternate method is available by contacting the laboratory within 24 hours. Performed By: #### 2 802474 #### ALEX ZepedaHemo [address] [place] [address] UA WBC 0-5 Normal 0-5 [facility] Comment on above: Performed By: #### 2 045386 #### ALEX ZepedaHemo [address] [place] [address] Urobilinogen Qn (U) Negative Normal Negative [facility] Comment on above: Performed By: #### 2 364961 #### ALEX ZepedaHemo [facility] [place] [id number] US Renalon 12-13-2018 US Renal Exam Date/Time: 12/13/2018 16:52 EDT Reason for Exam: left flank pain;Other (please specify) Report STUDY: US Renal; 12/13/2018 4:52 pm INDICATION: Other (please specify). Patient is approximately 19 weeks . COMPARISON: None. ACCESSION NUMBER(S): [id number] ORDERING CLINICIAN: Cristofer Beebe TECHNIQUE: Multiple images [...] by Discern Expert. Performed By: #### 2 [id number] #### ALEX RemHemo [address] [place] [address] C Urineon 12-02-2018 C Urine Final Report: Modera te growth of Normal skin jennie isolated Normal [facility] Comment on above: Performed By: #### 2 056664 #### ALEX RemHemo [facility] [place] [address] IGP W/hpv Rfx [id number] 11-10 Diagnosis: See Ref Lab Report Normal [facility] Comment on above: Order Comment: Order Added by Discern Expert. Performed By: #### 2 433649 #### ALEX RemHemo [facility] [place] [address] RPRon 11-09-2018 Reagin Ab RPR Ql (S) Non-Reactive Normal Non-Reactive [facility] Comment on above: Performed By: #### 2 [id number] #### ALEX Chemistry Manual Subsection [facility] [place] [address] C Urineon 11-04-2018 C Urine Final Report: Rare N ormal skin jennie isolated [facility] Comment on above: Performed By: #### 2 098302 #### ALEX Microbiology Subsection [address] [place] [address] Hep Bs Agon 11-04-2018 Hep Bs Ag Negative Normal Negative [facility] Comment on above: Result Comment: Perf ormed At: [facility] [address] [id number] Jennifer Pina PhD Ph:[phone] Performed By: #### 2 605136 #### ALEX Send Outs Subsection [address] [place] [address] ABO/Rh Echoon 11-02-2018 ABO/Rh E Interp... Positive Normal [facility] Comment on above: Performed By: #### 8 [id number] #### ALEX Blood Bank Subsection [address] [place] [address] Antibody Screen Cap...on Screen Interp... Negative Normal [facility] Comment on above: Performed By: #### 8 [id number] #### [facility]LEX Blood Bank Subsection [address] [place] [address] Auto Diffon 11-02-2018 Basophils (Bld) [#/Vol] 0.1 E3/mcL Normal 0.0-0.2 [facility] Comment on above: Order Comment: Order Added by Discern Expert. Performed By: #### 2 [id number] #### ALEX Rem[employer]emo [address] [place] [address] Basophils/100 WBC (Bld) 1.3 % Normal 0.0-2.0 [facility] Comment on above: Order Comment: Order Added by Discern Expert. Performed By: #### 2 300566 #### ALEX RemHemo [address] [place] [address] Eos Absolute 0.2 E3/mcL Normal 0.0-0.7 [facility] Comment on above: Order Comment: Order Added by Discern Expert. Performed By: #### 2 615704 #### ALEX RemHemo [address] [place] [address] Eosinophils/100 WBC (Bld) 1.8 % Normal 0.0-11.0 [facility] Comment on above: Order Comment: Order Added by Discern Expert. Performed By: #### 2 048783 #### ALEX RemHemo [address] [place] [address] Lymphocytes (Bld) [#/Vol] 2.1 E3/mcL Normal 1.2-3.4 [facility] Comment on above: Order Comment: Order Added by Discern Expert. Performed By: #### 2 296958 #### ALEX RemHemo [address] [place] [address] Lymphocytes/100 WBC (Bld) 24.5 % Normal 20.0-55.0 [facility] Comment on above: Order Comment: Order Added by Discern Expert. Performed By: #### 2 440583 #### ALEX Timmonso [address] [place] [address] Kenton Absolute 0.3 E3/mcL Normal 0.0-0.7 [facility] Comment on above: Order Comment: Order Added by Discern Expert. Performed By: #### 2 280612 #### ALEX Timmonso [address] [place], [place] [address] Monocytes/100 WBC (Bld) 3.7 % Normal 0.0-10.0 [facility] Comment on above: Order Comment: Order Added by Discern Expert. Performed By: #### 2 857197 #### ALEX Timmonso [address] [place] [address] Neutro Absolute 5.8 E3/mcL Normal 1.4-6.5 [facility] Comment on above: Order Comment: Order Added by Discern Expert. Performed By: #### 2 272883 #### ALEX Timmonso [address] [place] [address] Neutro Auto 68.7 % Normal 37.0-75.0 [facility] Comment on above: Order Comment: Order Added by Discern Expert. Performed By: #### 2 085079 #### ALEX Timmonso [address] [place] [address] CBC w/ Auto Diffon 9 Erythrocyte distribution width (RBC) [Ratio] 14.5 % Normal 11.5-14.5 [facility] Comment on above: Performed By: #### 2 174799 #### ALEX Timmonso [address] [place], [place] [id number] Hematocrit (Bld) [Volume fraction] 40.8 % Normal 36.0-48.0 [facility] Comment on above: Performed By: #### 2 421280 #### ALEX Timmonso [address] [place], [place] [address] Hemoglobin (Bld) [Mass/Vol] 13.5 g/dL Normal 12.0-16.0 [facility] Comment on above: Performed By: #### 2 782435 #### ALEX Timmonso [address] [place] [address] MCH (RBC) [Entitic mass] 29.8 pg Normal 27.0-31.0 [facility] Comment on above: Performed By: #### 2 752408 #### ALEX ZepedaHemo [address] [place] [place] [address] MCHC (RBC) [Mass/Vol] 33.0 g/dL Normal 33.0-37.0 [facility] Comment on above: Performed By: #### 2 [id number] #### ALEX ZepedaHemo [facility] [place] [address] MCV (RBC) [Entitic vol] 90.1 fL Normal 78.0-100.0 [facility] Comment on above: Performed By: #### 2 [id number] #### ALEXLora Timmonso [facility] [place] [address] Platelet mean volume (Bld) [Entitic vol] 8.3 fL Normal 7.4-11.0 [facility] Comment on above: Performed By: #### 2 [id number] #### ALEX ZepedaHemo [facility] [place] [address] Platelets (Bld) [#/Vol] 227 E3/mcL Normal 130-400 [facility] Comment on above: Performed By: #### 2 [id number] #### ALEXLora ZepedaHemo [address] [place] [id number] RBC (Bld) [#/Vol] 4.53 E6/mcL Normal 3.90-5.40 [facility] Comment on above: Performed By: #### 2 [id number] #### ALEX ZepedaHemo [address] [place] [address] WBC (Bld) [#/Vol] 8.4 E3/mcL Normal 3.6-11.0 [facility] Comment on above: Performed By: #### 2 [id number] #### ALEXLora ZepedaHemo [facility] [place] [address] Chlamydia GC by PCRon 2018 Chlamydia by PCR. Not Detected Normal Not Detected [facility] Comment on above: Result Comment: Xper t CT/NG Assay performance has not been evaluated in patients less than 14 years of age. Performed By: #### 3 [id number] #### ALEX Misc Micro SubSection , Gonorrhoeae by PCR Not Detected Normal Not Detected [facility] Comment on above: Result Comment: Xper t CT/NG Assay performance has not been evaluated in patients less than 14 years of age. Performed By: #### 3 [id number] #### ALEX Misc Micro SubSection , HIV-1/2 Ag/Abon 11-02-2018 HIV Combo Internal Control Line Reactive Normal Reactive [facility] Comment on above: Performed By: #### 6 [id number] #### ALEX Chemistry Manual Subsection [facility] [place] [address] HIV-1 & HIV-2 Antibodies Non-Reactive Normal Non-Reactive [facility] Comment on above: Performed By: #### 6 [id number] #### ALEX Chemistry Manual Subsection [address] [place] [address] HIV-1 p-24 Antigen Non-Reactive Normal Non-Reactive [facility] Comment on above: Performed By: #### 6 [id number] #### ALEX Chemistry Manual Subsection [facility] [place] [address] HIV-1/2 Ag/Ab Interp Negative Normal Negative [facility] Comment on above: Performed By: #### 6 [id number] #### ALEX Chemistry Manual Subsection [address] [place] [address] Rubella IgG Lvlon 11-02-2018 Rubella IgG Lvl 55.8 (POS) Normal [facility] Comment on above: Result Comment: <10I U/ml NON REACTIVE: NOT IMMUNE 10-15 IU/ml RUBELLA SPECIFIC AB PRESENT, EVALUATE FURTHER TO DETERMINE IMMUNE STATUS >15 IU/ml REACTIVE, IMMUNE Performed By: #### 2 [id number] #### ALEX [employer] [address] [place] [address] Pathology ([facility])on 10-22-2017 Pathology ([facility]) FINAL GYNECOLOGIC CYTOLOGY [id number] ADEQUACYSatisfactory for Evaluation. Endocervical cells/transformation zone componentpresent.GENERAL CATEGORIZATIONEpithelial Cell AbnormalityDESCRIPTIVE DIAGNOSISLow grade squamous intraepithelial lesion consistent with HPV effect.CLINICAL HISTORYComment: LMP: BreastFeedingSPECIMEN(A) SCREENING CERVICAL/ENDOCERVICAL LIQUID-BASED PAPPerformed at [facility], [address], [place] [address]Qhxjriye by: MONICA VELA Child Care Worker Signed Out by: DOLORES WEI MD Reported: 10/26/2017 Normal [facility] Comment on above: Performed By: #### G YN ####[facility] [address] [place] [address] Vital Signs Date Time Vital Sign Value Performing Clinician Facility 06-19-2025 02:14-0500 Diastolic blood pressure 52 mm[Hg] Mariela Schulz DO Work Phone: [facility] 06-19-2025 02:14-0500 Heart rate 102 /min Mariela Schulz DO Work Phone: [facility] 06-19-2025 02:14-0500 Respiratory rate 16 /min Mariela Schulz DO Work Phone: [facility] 06-19-2025 02:14-0500 SaO2% (BldA) [Mass fraction] 97 % Mariela Schulz DO Work Phone: [facility] 06-19-2025 02:14-0500 Systolic blood pressure 104 mm[Hg] Mariela Schulz DO Work Phone: [facility] 06-19-2025 00:01-0500 Body temperature 98.6 [degF] Mariela Schulz DO Work Phone: [facility] 06-18-2025 21:30-0500 Body mass index (BMI) [Ratio] 33.2 kg/m2 Mariela Schulz DO Work Phone: [facility] 06-18-2025 21:30-0500 Body weight 77.11 kg Mariela Schulz DO Work Phone: [facility] 06-15-2025 13:51-0500 Diastolic blood pressure 80 mm[Hg] Ryan HYMAN Work Phone: [facility] 06-15-2025 13:51-0500 Heart rate 108 /min Ryan Arlington PA Work Phone: [facility] 06-15-2025 13:51-0500 Respiratory rate 18 /min Ryan Dimas PA Work Phone: [facility] 06-15-2025 13:51-0500 SaO2% (BldA) [Mass fraction] 95 % Ryan Dimas PA Work Phone: [facility] 06-15-2025 13:51-0500 Systolic blood pressure 127 mm[Hg] Ryan Dimas PA Work Phone: [facility] 06-08-2025 14:00-0400 Body height 152.4 cm Ryan Arlington PA Work Phone: [facility] 06-08-2025 14:00-0400 Body mass index (BMI) [Ratio] 33 kg/m2 Ryan Arlington PA Work Phone: [facility] 06-08-2025 14:00-0400 Body temperature 100 [degF] Ryan Arlington PA Work Phone: [facility] 06-08-2025 14:00-0400 Body weight 76.65 kg Ryan Arlington PA Work Phone: [facility] 06-08-2025 14:00-0400 Diastolic blood pressure 67 mm[Hg] Ryan Arlington PA Work Phone: [facility] 06-08-2025 14:00-0400 Heart rate 98 /min Ryan Dimas PA Work Phone: [facility] 06-08-2025 14:00-0400 Respiratory rate 17 /min Ryan Arlington PA Work Phone: [facility] 06-08-2025 14:00-0400 SaO2% (BldA) [Mass fraction] 100 % Ryan Arlington PA Work Phone: [facility] 06-08-2025 14:00-0400 Systolic blood pressure 91 mm[Hg] Ryan Dimas PA Work Phone: [facility] 06-07-2025 09:22-0400 Body mass index (BMI) [Ratio] 31.8 kg/m2 Ryan Arlington PA Work Phone: [facility] 06-07-2025 09:22-0400 Body temperature 97.9 [degF] Ryan Dimas PA Work Phone: [facility] 06-07-2025 09:22-0400 Body weight 73.93 kg Ryan Arlington PA Work Phone: [facility] 06-07-2025 09:22-0400 Diastolic blood pressure 66 mm[Hg] Ryan Arlington PA Work Phone: [facility] 06-07-2025 09:22-0400 Heart rate 107 /min Ryan Arlington PA Work Phone: [facility] 06-07-2025 09:22-0400 Respiratory rate 14 /min Ryan Dimas PA Work Phone: [facility] 06-07-2025 09:22-0400 SaO2% (BldA) [Mass fraction] 98 % Ryan Arlington PA Work Phone: [facility] 06-07-2025 09:22-0400 Systolic blood pressure 91 mm[Hg] Ryan Arlington PA Work Phone: [facility] 05-30-2025 12:45-0400 Body temperature 96.3 [degF] Ryan Dimas PA Work Phone: [facility] 05-30-2025 12:45-0400 Diastolic blood pressure 60 mm[Hg] Ryan Arlington PA Work Phone: [facility] 05-30-2025 12:45-0400 Heart rate 106 /min Ryan Dimas PA Work Phone: [facility] 05-30-2025 12:45-0400 Respiratory rate 16 /min Ryan Dimas PA Work Phone: [facility] 05-30-2025 12:45-0400 SaO2% (BldA) [Mass fraction] 97 % Ryan Arlington PA Work Phone: [facility] 05-30-2025 12:45-0400 Systolic blood pressure 109 mm[Hg] Ryan Arlington PA Work Phone: [facility] 05-30-2025 09:13-0400 Body mass index (BMI) [Ratio] 33 kg/m2 Ryan Arlington PA Work Phone: [facility] 05-30-2025 09:13-0400 Body temperature 97.8 [degF] Ryan Dimas PA Work Phone: [facility] 05-30-2025 09:13-0400 Body weight 76.71 kg Ryan Dimas PA Work Phone: [facility] 05-30-2025 09:13-0400 Diastolic blood pressure 76 mm[Hg] Ryan Dimas PA Work Phone: [facility] 05-30-2025 09:13-0400 Heart rate 112 /min Ryan Arlington PA Work Phone: [facility] 05-30-2025 09:13-0400 Respiratory rate 16 /min Ryan Arlington PA Work Phone: [facility] 05-30-2025 09:13-0400 SaO2% (BldA) [Mass fraction] 95 % Ryan Arlington PA Work Phone: [facility] 05-30-2025 09:13-0400 Systolic blood pressure 111 mm[Hg] Ryan Arlington PA Work Phone: [facility] 05-09-2025 16:18-0400 Body temperature 97.5 [degF] Ryan Arlington PA Work Phone: [facility] 05-09-2025 16:18-0400 Diastolic blood pressure 52 mm[Hg] Ryan Arlington PA Work Phone: [facility] 05-09-2025 16:18-0400 Heart rate 98 /min Ryan Arlington PA Work Phone: [facility] 05-09-2025 16:18-0400 Respiratory rate 16 /min Ryan Dimas PA Work Phone: [facility] 05-09-2025 16:18-0400 Systolic blood pressure 100 mm[Hg] Ryan Arlington PA Work Phone: [facility] 05-09-2025 08:43-0400 Body height 152.4 cm Ryan Dimas PA Work Phone: [facility] 05-09-2025 08:43-0400 Body mass index (BMI) [Ratio] 32.4 kg/m2 Ryan Dimas PA Work Phone: [facility] 05-09-2025 08:43-0400 Body temperature 98.5 [degF] Ryan Arlington PA Work Phone: [facility] 05-09-2025 08:43-0400 Body weight 75.4 kg Ryan Arlington PA Work Phone: [facility] 05-09-2025 08:43-0400 Diastolic blood pressure 73 mm[Hg] Ryan Arlington PA Work Phone: [facility] 05-09-2025 08:43-0400 Heart rate 81 /min Ryan Dimas PA Work Phone: [facility] 05-09-2025 08:43-0400 Respiratory rate 16 /min Ryan Dimas PA Work Phone: [facility] 05-09-2025 08:43-0400 SaO2% (BldA) [Mass fraction] 99 % Ryan Arlington PA Work Phone: [facility] 05-09-2025 08:43-0400 Systolic blood pressure 105 mm[Hg] Ryan Dimas PA Work Phone: [facility] 04-26-2025 09:01-0400 Body mass index (BMI) [Ratio] 32.5 kg/m2 Ryan Dimas PA Work Phone: [facility] 04-26-2025 09:00-0400 SaO2% (BldA) [Mass fraction] 100 % Ryan Arlington PA Work Phone: [facility] 04-18-2025 09:20-0400 Body height 152.4 cm Ryan Dimas PA Work Phone: [facility] 04-18-2025 09:20-0400 Body mass index (BMI) [Ratio] 32.6 kg/m2 Ryan Dimas PA Work Phone: [facility] 04-18-2025 09:20-0400 Body temperature 98.3 [degF] Ryan Arlington PA Work Phone: [facility] 04-18-2025 09:20-0400 Body weight 75.86 kg Ryan Arlington PA Work Phone: [facility] 04-18-2025 09:20-0400 Diastolic blood pressure 80 mm[Hg] Ryan Arlington PA Work Phone: [facility] 04-18-2025 09:20-0400 Heart rate 88 /min Ryan Arlington PA Work Phone: [facility] 04-18-2025 09:20-0400 Respiratory rate 18 /min Ryan Dimas PA Work Phone: [facility] 04-18-2025 09:20-0400 SaO2% (BldA) [Mass fraction] 96 % Ryan Arlington PA Work Phone: [facility] 04-18-2025 09:20-0400 Systolic blood pressure 123 mm[Hg] Ryan Arlington PA Work Phone: [facility] 03-29-2025 12:21-0400 Body temperature 97.2 [degF] Ryan Dimas PA Work Phone: [facility] 03-29-2025 12:21-0400 Diastolic blood pressure 64 mm[Hg] Ryan Dimas PA Work Phone: [facility] 03-29-2025 12:21-0400 Heart rate 80 /min Ryan Arlington PA Work Phone: [facility] 03-29-2025 12:21-0400 Respiratory rate 16 /min Ryan Arlington PA Work Phone: [facility] 03-29-2025 12:21-0400 SaO2% (BldA) [Mass fraction] 97 % Ryan Dimas PA Work Phone: [facility] 03-29-2025 12:21-0400 Systolic blood pressure 104 mm[Hg] Ryan Arlington PA Work Phone: [facility] 03-29-2025 09:07-0400 Body height 152.4 cm Ryan Dimas PA Work Phone: [facility] 03-29-2025 09:07-0400 Body mass index (BMI) [Ratio] 32 kg/m2 Ryan Dimas PA Work Phone: [facility] 03-29-2025 09:07-0400 Body temperature 98.5 [degF] Ryan Arlington PA Work Phone: [facility] 03-29-2025 09:07-0400 Body weight 74.44 kg Ryan Dimas PA Work Phone: [facility] 03-29-2025 09:07-0400 Diastolic blood pressure 70 mm[Hg] Ryan Arlington PA Work Phone: [facility] 03-29-2025 09:07-0400 Heart rate 86 /min Ryan Dimas PA Work Phone: [facility] 03-29-2025 09:07-0400 Respiratory rate 18 /min Ryna Arlington PA Work Phone: [facility] 03-29-2025 09:07-0400 SaO2% (BldA) [Mass fraction] 95 % Ryan Arlington PA Work Phone: [facility] 03-29-2025 09:07-0400 Systolic blood pressure 103 mm[Hg] Ryan Dimas PA Work Phone: [facility] 03-20-2025 15:48-0400 Body height 152.4 cm Ryan Arlington PA Work Phone: [facility] 03-20-2025 15:48-0400 Body mass index (BMI) [Ratio] 31.8 kg/m2 Ryan Dimas PA Work Phone: [facility] 03-20-2025 15:48-0400 Body temperature 98.7 [degF] Ryan Arlington PA Work Phone: [facility] 03-20-2025 15:48-0400 Body weight 73.93 kg Ryan Dimas PA Work Phone: [facility] 03-20-2025 15:48-0400 Diastolic blood pressure 66 mm[Hg] Ryan Arlington PA Work Phone: [facility] 03-20-2025 15:48-0400 Heart rate 65 /min Ryan Dimas PA Work Phone: [facility] 03-20-2025 15:48-0400 Respiratory rate 18 /min Ryan Arlington PA Work Phone: [facility] 03-20-2025 15:48-0400 SaO2% (BldA) [Mass fraction] 98 % Ryan Dimas PA Work Phone: [facility] 03-20-2025 15:48-0400 Systolic blood pressure 93 mm[Hg] Ryan Arlington PA Work Phone: [facility] 03-13-2025 14:41-0400 Body height 152.4 cm Ryan Arlington PA-C Work Phone: [facility] 03-13-2025 14:41-0400 Body mass index (BMI) [Ratio] 30.62 kg/m2 Ryan Dimas PA-C Work Phone: [facility] 03-13-2025 14:41-0400 Body weight 71.12 kg Ryan Dimas PA-C Work Phone: [facility] 03-13-2025 14:41-0400 Diastolic blood pressure 77 mm[Hg] Ryan Dimas PA-C Work Phone: [facility] 03-13-2025 14:41-0400 Heart rate 73 /min Ryan Arlington PA-C Work Phone: [facility] 03-13-2025 14:41-0400 Systolic blood pressure 114 mm[Hg] Ryan Arlington PA-C Work Phone: [facility] 03-07-2025 13:54-0400 Body temperature 97.4 [degF] Ryan Arlington PA Work Phone: [facility] 03-07-2025 13:54-0400 Diastolic blood pressure 58 mm[Hg] Ryan Arlington PA Work Phone: [facility] 03-07-2025 13:54-0400 Heart rate 110 /min Ryan Arlington PA Work Phone: [facility] 03-07-2025 13:54-0400 Respiratory rate 16 /min Ryan Dimas PA Work Phone: [facility] 03-07-2025 13:54-0400 Systolic blood pressure 103 mm[Hg] Ryan Dimas PA Work Phone: [facility] 03-07-2025 08:09-0400 SaO2% (BldA) [Mass fraction] 98 % Ryan Arlington PA Work Phone: [facility] 03-07-2025 08:03-0400 Body mass index (BMI) [Ratio] 31.3 kg/m2 Ryan Arlington PA Work Phone: [facility] 02-28-2025 16:00-0400 Body height 152.4 cm Ryan Arlington PA Work Phone: [facility] 02-28-2025 16:00-0400 Body mass index (BMI) [Ratio] 31.1 kg/m2 Ryan Dimas PA Work Phone: [facility] 02-28-2025 16:00-0400 Body temperature 98.4 [degF] Ryan Arlington PA Work Phone: [facility] 02-28-2025 16:00-0400 Body weight 72.23 kg Ryan Dimas PA Work Phone: [facility] 02-28-2025 16:00-0400 Diastolic blood pressure 69 mm[Hg] Ryan Arlington PA Work Phone: [facility] 02-28-2025 16:00-0400 Heart rate 73 /min Ryan Arlington PA Work Phone: [facility] 02-28-2025 16:00-0400 Respiratory rate 16 /min Ryan Arlington PA Work Phone: [facility] 02-28-2025 16:00-0400 SaO2% (BldA) [Mass fraction] 100 % Ryan Arlington PA Work Phone: [facility] 02-28-2025 16:00-0400 Systolic blood pressure 106 mm[Hg] Ryan Arlington PA Work Phone: [facility] 02-13-2025 08:40-0400 Body temperature 97.1 [degF] Ryan Arlington PA Work Phone: [facility] 02-13-2025 08:40-0400 Diastolic blood pressure 50 mm[Hg] Ryan Dimas PA Work Phone: [facility] 02-13-2025 08:40-0400 Heart rate 74 /min Ryan Dimas PA Work Phone: [facility] 02-13-2025 08:40-0400 Respiratory rate 16 /min Ryan Arlington PA Work Phone: [facility] 02-13-2025 08:40-0400 SaO2% (BldA) [Mass fraction] 100 % Ryan Dimas PA Work Phone: [facility] 02-13-2025 08:40-0400 Systolic blood pressure 94 mm[Hg] Ryan Dimas PA Work Phone: [facility] 02-13-2025 06:48-0400 Body height 152.4 cm Ryan Dimas PA Work Phone: [facility] 02-13-2025 06:48-0400 Body mass index (BMI) [Ratio] 31.7 kg/m2 Ryan Dimas PA Work Phone: [facility] 02-13-2025 06:48-0400 Body weight 73.8 kg Ryan Arlington PA Work Phone: [facility] 02-08-2025 14:22-0400 Body weight 72.12 kg Ryan Dimas PA Work Phone: [facility] 02-08-2025 14:22-0400 Diastolic blood pressure 61 mm[Hg] Ryan Dimas PA Work Phone: [facility] 02-08-2025 14:22-0400 Heart rate 64 /min Ryan Dimas PA Work Phone: [facility] 02-08-2025 14:22-0400 Respiratory rate 18 /min Ryan Arlington PA Work Phone: [facility] 02-08-2025 14:22-0400 SaO2% (BldA) [Mass fraction] 98 % Ryan Arlington PA Work Phone: [facility] 02-08-2025 14:22-0400 Systolic blood pressure 92 mm[Hg] Ryan Arlington PA Work Phone: [facility] 01-30-2025 13:43-0400 Body height 152.4 cm Ryan Dimas PA-C Work Phone: [facility] 01-30-2025 13:43-0400 Body mass index (BMI) [Ratio] 31.48 kg/m2 Ryan Dimas PA-C Work Phone: [facility] 01-30-2025 13:43-0400 Body weight 73.12 kg Ryan Arlington PA-C Work Phone: [facility] 01-30-2025 13:43-0400 Diastolic blood pressure 78 mm[Hg] Ryan Arlington PA-C Work Phone: [facility] 01-30-2025 13:43-0400 Heart rate 88 /min Ryan Dimas PA-C Work Phone: [facility] 01-30-2025 13:43-0400 Systolic blood pressure 119 mm[Hg] Ryan Arlington PA-C Work Phone: [facility] 01-29-2025 15:21-0400 Body height 152.4 cm Ryan Arlington PA Work Phone: [facility] 01-29-2025 15:21-0400 Body mass index (BMI) [Ratio] 31 kg/m2 Ryan Dimas PA Work Phone: [facility] 01-29-2025 15:21-0400 Body temperature 98.8 [degF] Ryan Arlington PA Work Phone: [facility] 01-29-2025 15:21-0400 Body weight 72.12 kg Ryan Dimas PA Work Phone: [facility] 01-29-2025 15:21-0400 Diastolic blood pressure 74 mm[Hg] Ryan Dimas PA Work Phone: [facility] 01-29-2025 15:21-0400 Heart rate 67 /min Ryan Dimas PA Work Phone: [facility] 01-29-2025 15:21-0400 Respiratory rate 16 /min Ryan Dimas PA Work Phone: [facility] 01-29-2025 15:21-0400 SaO2% (BldA) [Mass fraction] 97 % Ryan Dimas PA Work Phone: [facility] 01-29-2025 15:21-0400 Systolic blood pressure 106 mm[Hg] Ryan Dimas PA Work Phone: [facility] 01-23-2025 09:59-0400 Body height 152.4 cm Ryan Arlington PA Work Phone: [facility] 01-23-2025 09:59-0400 Body mass index (BMI) [Ratio] 31.3 kg/m2 Ryan Dimas PA Work Phone: [facility] 01-23-2025 09:59-0400 Body temperature 97.5 [degF] Ryna Dimas PA Work Phone: [facility] 01-23-2025 09:59-0400 Body weight 72.74 kg Ryan Arlington PA Work Phone: [facility] 01-23-2025 09:59-0400 Diastolic blood pressure 72 mm[Hg] Ryan Dimas PA Work Phone: [facility] 01-23-2025 09:59-0400 Heart rate 64 /min Ryan Dimas PA Work Phone: [facility] 01-23-2025 09:59-0400 Respiratory rate 17 /min Ryan Arlington PA Work Phone: [facility] 01-23-2025 09:59-0400 SaO2% (BldA) [Mass fraction] 99 % Ryan Arlington PA Work Phone: [facility] 01-23-2025 09:59-0400 Systolic blood pressure 105 mm[Hg] Ryan Arlington PA Work Phone: [facility] 01-04-2025 09:41-0400 Body height 152.4 cm Ryan Arlington PA-C Work Phone: [facility] 01-04-2025 09:41-0400 Body mass index (BMI) [Ratio] 30.47 kg/m2 Ryan Dimas PA-C Work Phone: [facility] 01-04-2025 09:41-0400 Body weight 70.76 kg Ryan Arlington PA-C Work Phone: [facility] 01-04-2025 09:41-0400 Diastolic blood pressure 72 mm[Hg] Ryan Dimas PA-C Work Phone: [facility] 01-04-2025 09:41-0400 Heart rate 79 /min Ryan Dimas PA-C Work Phone: [facility] 01-04-2025 09:41-0400 Systolic blood pressure 111 mm[Hg] Ryan Dimas PA-C Work Phone: [facility] 11-15-2024 12:38-0400 Body height 152.4 cm Ryan Arlington PA-C Work Phone: [facility] 11-15-2024 12:38-0400 Body mass index (BMI) [Ratio] 30.19 kg/m2 Ryan Arlington PA-C Work Phone: [facility] 11-15-2024 12:38-0400 Body weight 70.13 kg Ryan Dimas PA-C Work Phone: [facility] 11-15-2024 12:38-0400 Diastolic blood pressure 82 mm[Hg] Ryan Dimas PA-C Work Phone: [facility] 11-15-2024 12:38-0400 Heart rate 90 /min Ryan Arlington PA-C Work Phone: [facility] 11-15-2024 12:38-0400 SaO2% (BldA) [Mass fraction] 98 % Ryan Cochran PA-C Work Phone: [facility] 11-15-2024 12:38-0400 Systolic blood pressure 117 mm[Hg] Ryan Cochran PA-C Work Phone: [facility] 05-23-2024 11:45-0400 Diastolic blood pressure 69 mm[Hg] Mariela Schulz DO Work Phone: [facility] 05-23-2024 11:45-0400 Heart rate 95 /min Mariela Schulz DO Work Phone: [facility] 05-23-2024 11:45-0400 Respiratory rate 16 /min Mariela Schulz DO Work Phone: [facility] 05-23-2024 11:45-0400 SaO2% (BldA) [Mass fraction] 95 % Mariela Schulz DO Work Phone: [facility] 05-23-2024 11:45-0400 Systolic blood pressure 111 mm[Hg] Mariela Schulz DO Work Phone: [facility] 05-22-2024 21:50-0400 Body height 152.4 cm Mariela Schulz DO Work Phone: [facility] 05-22-2024 21:50-0400 Body mass index (BMI) [Ratio] 27.34 kg/m2 Mariela Schulz DO Work Phone: [facility] 05-22-2024 21:50-0400 Body temperature 97.9 [degF] Mariela Schulz DO Work Phone: [facility] 05-22-2024 21:50-0400 Body weight 63.5 kg Mariela Schulz DO Work Phone: [facility] 07-04-2021 12:42-0500 Body height 155 cm Kinjal Cleveland MD Work Phone: [facility] 07-04-2021 12:42-0500 Body mass index (BMI) [Ratio] 25.05 kg/m2 Kinjal Cleveland MD Work Phone: [facility] 07-04-2021 12:42-0500 Body temperature 97.81 [degF] Kinjal Cleveland MD Work Phone: [facility] 07-04-2021 12:42-0500 Body weight 60.19 kg Kinjal Cleveland MD Work Phone: [facility] 07-04-2021 12:42-0500 Diastolic blood pressure 60 mm[Hg] Kinjal Cleveland MD Work Phone: [facility] 07-04-2021 12:42-0500 Heart rate 67 /min Kinjal Cleveland MD Work Phone: [facility] 07-04-2021 12:42-0500 Respiratory rate 18 /min Kinjal Cleveland MD Work Phone: [facility] 07-04-2021 12:42-0500 SaO2% (BldA) [Mass fraction] 97 % Kinjal Cleveland MD Work Phone: [facility] 07-04-2021 12:42-0500 Systolic blood pressure 92 mm[Hg] Kinjal Cleveland MD Work Phone: [facility] 01-19-2021 09:06-0400 Body temperature 98.29 [degF] Candice Bobby DO Work Phone: [employer] Work Phone: 01-19-2021 09:06-0400 Diastolic blood pressure 89 mm[Hg] Candiceherminia Bobby DO Work Phone: [employer] Work Phone: 01-19-2021 09:06-0400 Heart rate 100 /min Candiceherminia Bahenae DO Work Phone: [employer] Work Phone: 01-19-2021 09:06-0400 SaO2% (BldA) [Mass fraction] 99 % Candice Kanu DO Work Phone: [employer] Work Phone: 01-19-2021 09:06-0400 Systolic blood pressure 138 mm[Hg] Candice Bobby DO Work Phone: [facility] Work Phone: 01-18-2021 20:30-0400 Respiratory rate 18 /min Candice Bobby DO Work Phone: [employer] Work Phone: 01-16-2021 23:50-0400 Body height 152.4 cm Candice Bobby DO Work Phone: [employer] Work Phone: 01-16-2021 23:50-0400 Body mass index (BMI) [Ratio] 32.22 kg/m2 Candice Bobby DO Work Phone: [employer] Work Phone: 01-16-2021 23:50-0400 Body weight 74.84 kg Candice Bobby DO Work Phone: [employer] Work Phone: 10-27-2020 10:30-0400 BP Diastolic 65 mm[Hg] [facility] 10-27-2020 10:30-0400 BP Systolic 115 mm[Hg] [facility] 10-27-2020 10:30-0400 Pulse Oximetry 99 % [facility] 10-27-2020 09:53-0400 Pulse (Heart Rate) 91 /min [facility] 10-27-2020 08:10-0400 BMI (Body Mass Index) 30.27 kg/m2 [facility] 10-27-2020 08:10-0400 Body Temperature 97.3 [degF] [facility] 10-27-2020 08:10-0400 Body weight 70.31 kg [facility] 10-27-2020 08:10-0400 Height 152.4 cm [facility] 10-27-2020 08:10-0400 Respiratory Rate 18 /min Debi Pederson [facility] 09-27-2019 09:36-0500 BMI (Body Mass Index) 26.37 kg/m2 Era Giordano [facility] 09-27-2019 09:36-0500 Body weight 61.24 kg Era Giordano [facility] 09-27-2019 09:36-0500 Height 152.4 cm Era Giordano [facility] 01-04-2019 18:19-0400 BMI (Body Mass Index) 30.27 kg/m2 [facility] 01-04-2019 18:19-0400 Body Temperature 97.59 [degF] [facility] 01-04-2019 18:19-0400 BP Diastolic 60 mm[Hg] [facility] 01-04-2019 18:19-0400 BP Systolic 102 mm[Hg] [facility] 01-04-2019 18:19-0400 Height 152.4 cm [facility] 01-04-2019 18:19-0400 Pulse (Heart Rate) 88 /min [facility] 01-04-2019 18:19-0400 Pulse Oximetry 98 % [facility] 01-04-2019 18:19-0400 Respiratory Rate 18 /min [facility] 01-04-2019 18:19-0400 Weight 70.31 kg [facility] 10-08-2017 17:17-0500 BMI (Body Mass Index) 27.97 kg/m2 [facility] 10-08-2017 17:17-0500 Body Temperature 98.1 [degF] [facility] 10-08-2017 17:17-0500 BP Diastolic 63 mm[Hg] [facility] 10-08-2017 17:17-0500 BP Systolic 109 mm[Hg] [facility] 10-08-2017 17:17-0500 Height 152.4 cm [facility] 10-08-2017 17:17-0500 Pulse (Heart Rate) 65 /min [facility] 10-08-2017 17:17-0500 Pulse Oximetry 98 % [facility] 10-08-2017 17:17-0500 Respiratory Rate 16 /min [facility] 10-08-2017 17:17-0500 Weight 64.95 kg Elton Bauer [facility] Encounters Encounter Date Encounter Type Care Provider Facility Start: 06-20-2025 End: 06-20-2025 ambulatory Ryan Dimas PA Facility:[facility] Start: 06-18-2025 End: 06-19-2025 Emergency department patient visit Mariela Schulz DO Work Phone: [facility] Comment on above: Hypomagnesemia (Prim julissa Dx); Generalized abdominal pain Start: 06-15-2025 End: 06-15-2025 ambulatory Ryan Arlington PA Facility:[facility] Start: 06-08-2025 End: 06-08-2025 ambulatory Ryan Dimas PA Facility:[facility] Start: 06-07-2025 End: 06-07-2025 ambulatory Ryan Dimas PA Facility:[facility] Start: 05-31-2025 ambulatory Ryan Dimas PA Fa cility:[facility] Start: 05-31-2025 Non-patient / Non-visit [facility] Start: 05-31-2025 End: 05-31-2025 Patient encounter procedure Sheila Eubanks NP-C -Cardiovascular Services Work Phone: Start: 05-30-2025 End: 05-30-[address] Ara Franklin MD -[facility] Work Phone: Start: 05-30-2025 End: 05-31-2025 ambulatory Ryan Arlington PA Work Phone: [facility] Start: 05-09-2025 End: 05-09-2025 Patient encounter procedure Sheila Eubanks NP-C -[facility] Work Phone: Start: 05-09-2025 End: 05-09-2025 ambulatory Ryan Dimas PA Work Phone: -[facility] Start: 05-09-[address] [facility] Start: 04-18-[address] [facility] Start: 04-18-2025 End: 04-18-[address] Ara Franklin MD -[facility] Work Phone: Start: 04-18-2025 End: 04-18-2025 ambulatory Ryan Ccohran PA Work Phone: [facility] Start: 03-29-2025 End: 03-29-[address] Ara Franklin MD -[facility] Work Phone: Start: 03-29-2025 End: 03-29-2025 ambulatory Ryanchristopher Hilliardall PA Work Phone: [facility] Start: 03-29-[address] Manda Franklin MD -[facility] Start: 03-20-2025 End: 03-20-[address] Ara Franklin MD -[facility] Work Phone: Start: 03-20-2025 End: 03-20-2025 ambulatory Ryan Hilliardall PA Work Phone: [facility] Start: 03-20-[address] Manda Franklin MD -[facility] Start: 03-13-2025 End: 03-13-2025 Office outpatient visit 25 minutes Ryan HYMAN-C Work Phone: [facility] Comment on above: Urinary frequency (P rimary Dx); Dysuria; Class 1 obesity due to excess calories without serious comorbidity with body mass index (BMI) of 30.0 to 30.9 in adult; Infiltrating ductal carcinoma of left breast; Depression, major, recurrent, mild Start: 03-09-2025 End: 03-09-2025 ambulatory RYAN COCHRAN [facility] Start: 03-08-2025 Encounter for other preprocedural examination Tamiko Mccarthy [facility] Start: 02-28-2025 End: 02-28-[address] Tamiko Mccarthy MD -[facility] Work Phone: Start: 02-28-2025 End: 02-28-2025 ambulatory Ryan HYMAN Work Phone: -[facility] Start: 02-21-2025 End: 02-21-2025 ambulatory PAUL HUYNH [facility] Start: 02-21-2025 End: 02-21-2025 Subsequent hospital visit by physician Paul Huynh MD Work Phone: [facility] Comment on above: Malignant neoplasm o f female breast, unspecified estrogen receptor status, unspecified laterality, unspecified site of breast; Encounter for nonprocreative genetic counseling; Malignant neoplasm of left breast in female, estrogen receptor negative, unspecified site of breast Start: 02-21-2025 End: 02-21-2025 ambulatory Ryan HYMAN Work Phone: -Cat Scan [facility] Start: 02-21-2025 End: 02-21-2025 Patient encounter procedure Sheila Eubanks COURT LIAISON-C -Cat Scan [facility] Work Phone: Start: 02-21-2025 End: 02-21-2025 ambulatory Ryan HYMAN Facility:[facility] Start: 02-16-2025 End: 02-16-2025 ambulatory [facility] Start: 02-14-2025 End: 02-14-2025 ambulatory Ryan HYMAN Work Phone: -Nuclear Medicine [facility] Start: 02-14-2025 End: 02-14-2025 Patient encounter procedure Sheila Eubanks COURT LIAISON-C -Nuclear Medicine [facility] Work Phone: Start: 02-13-2025 ambulatory Tamiko Mccarthy Facilit y:[facility] Start: 02-13-2025 Non-patient / Non-visit Dr. Tho Mccarthy MD -[facility] Start: 02-13-2025 End: 02-13-2025 Admission to same day surgery center Dr. Tamiko Mccarthy MD [facility] Start: 02-13-2025 End: 02-14-2025 ambulatory Ryan HYMAN Work Phone: [facility] Start: 02-08-2025 End: 02-08-[address] Michael Pantoja MD -[facility] Work Phone: Start: 02-08-2025 End: 02-08-2025 ambulatory Ryan Cochran PA Work Phone: -[facility] Start: 02-08-2025 Non-patient / Non-visit Dr. Carlos MATOS -[facility] Start: 02-08-2025 End: 02-08-2025 ambulatory Ryan Dimas PA Work Phone: -Cardiovascular Services Start: 02-08-2025 End: 02-08-[address] Ara Franklin MD -[facility] Work Phone: Start: 02-08-2025 End: 02-08-2025 ambulatory Ryanchristopher Cochran PA Facility:[facility] Start: 01-31-2025 End: 01-31-2025 ambulatory Ryan Dimas PA Work Phone: [facility] Start: 01-31-2025 End: 01-31-[address] Tamiko Mccarthy MD -[facility] Work Phone: Start: 01-30-2025 End: 01-30-2025 Office outpatient visit 25 minutes Ryan HYMAN-C Work Phone: [facility] Comment on above: Infiltrating ductal carcinoma of left breast (Primary Dx); Depression, major, recurrent, mild; Class 1 obesity due to excess calories without serious comorbidity with body mass index (BMI) of 31.0 to 31.9 in adult Start: 01-30-2025 End: 01-31-[address] [facility] Start: 01-29-[address] Manda Franklin MD -[facility] Start: 01-29-2025 End: 01-29-[address] Ara Franklin MD -[facility] Work Phone: Start: 01-29-2025 End: 01-29-2025 ambulatory Ryan Cochran PA Work Phone: [facility] Work Phone: Start: 01-25-2025 End: 01-25-2025 ambulatory Ryan HYMAN Work Phone: [facility] Work Phone: Start: 01-25-2025 End: 01-25-[address] Tamiko Mccarthy MD -[facility] Work Phone: Start: 01-25-2025 End: 01-25-2025 ambulatory Tamiko Mccarthy Facility:[facility] Start: 01-23-2025 End: 01-23-2025 ambulatory Ryan HYMAN Work Phone: [facility] Work Phone: Start: 01-23-2025 End: 01-23-[address] Tamiko Mccarthy MD -[facility] Work Phone: Start: 01-12-2025 End: 01-12-2025 Subsequent hospital visit by physician Jorge Del Real 2 [facility] Comment on above: Abnormal mammogram o f left breast; Mass of multiple sites of left breast Start: 01-12-2025 End: 01-12-2025 ambulatory [facility] Start: 01-10-2025 End: 01-10-2025 Subsequent hospital visit by physician Jorge Del Real 2 [facility] Comment on above: Mass of upper outer quadrant of left breast Start: 01-10-2025 End: 01-10-2025 ambulatory [facility] Start: 01-04-2025 End: 01-04-2025 Office outpatient visit 25 minutes Ryan VIEIRAC Work Phone: [facility] Comment on above: Mass of upper outer quadrant of left breast (Primary Dx); Class 1 obesity due to excess calories without serious comorbidity with body mass index (BMI) of 30.0 to 30.9 in adult; Fibrocystic change of breast, left Start: 01-04-2025 End: 01-04-[address] [facility] Start: 11-15-2024 End: 11-15-2024 Office outpatient new 45 minutes Ryan Cochran PA-C Work Phone: [facility] Comment on above: [facility] with [facility] provider (Primary Dx); Encounter for wellness examination in adult; Glucose intolerance (impaired glucose tolerance); Class 1 obesity due to excess calories without serious comorbidity with body mass index (BMI) of 30.0 to 30.9 in adult; Dietary counseling and surveillance; Intractable menstrual migraine with status migrainosus Start: 11-15-2024 End: 11-15-2024 Patient encounter status Ryan Cochran PA-C Work Phone: [facility] Work Phone: Start: 11-15-2024 End: 11-15-2024 ambulatory [facility] Start: 11-15-2024 End: 11-15-2024 Encounter for general adult medical examination [facility] Start: 07-03-2024 ambulatory [facility] Start: 05-23-2024 End: 05-25-2024 ambulatory [facility] Start: 05-22-2024 End: 05-23-2024 Emergency department patient visit Mariela Tam Schulz Work Phone: [facility] Comment on above: Pneumonia due to inf ectious organism, unspecified laterality, unspecified part of lung (Primary Dx) Start: 05-14-2024 End: 05-15-2024 Emergency department patient visit [facility]SHAWN LOCKETT [facility] Start: 09-10-2021 Orders Only Kinjal Cleveland MD Work Phone: [facility] Comment on above: 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) Start: 08-26-2021 Orders Only Kinjal Cleveland MD Work Phone: [facility] Comment on above: 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) Start: 07-21-2021 End: 07-21-2021 Office outpatient visit 25 minutes Era Giordano CNP Work Phone: [facility] Comment on above: Instability of left shoulder joint (Primary Dx); Bursitis and tendinitis of shoulder region Start: 07-04-2021 End: 07-04-2021 Office outpatient new 30 minutes Kinjal Cleveland MD Work Phone: [facility] Comment on above: 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); Functional diarrhea Start: 01-16-2021 End: 01-19-2021 Evaluation and management of inpatient Candice Bobby DO Work Phone: [facility] Start: 10-27-2020 End: 10-27-2020 Emergency department patient visit Debi Pederson Work Phone: [facility] Start: 09-27-2019 End: 09-27-2019 Office outpatient new 30 minutes Era Giordano Work Phone: [facility] Comment on above: Pain in both upper e xtremities (Primary Dx) Start: 01-04-2019 End: 01-04-2019 Patient encounter procedure Ba Rainey Geoffrey Work Phone: [facility] Start: 01-04-2019 End: 01-04-2019 Emergency department patient visit [facility] Start: 10-08-2017 Office/outpatient vi sitgarry, level 3 Elton Bauer Work Phone: [facility] Procedures Date Procedure Procedure [...] &/inj major jt/bursa w/o us Era Giordano [employer] Work Phone: Start: 07-04-2021 Adult depression scr [...] 10-27-2020 Basic metabolic pane l calcium ionized [facility] Start: 10-27-2020 Albumin serum plasma /whole blood [facility] Start: 10-27-2020 Blood count complete [...] above: Performed By: #### T +S #### [id number] [place] [address] Start: 01-04-2019 Us retroperitoneal r eal time [...] of 2) Zoster Vaccines (1 of 2) [facility] Start: 10-09-2027 Tetanus vaccination [facility] Start: 12-02-2026 DTaP/Tdap/Td Vaccines (7 - Td or Tdap) DTaP/Tdap/Td Vaccines (7 - Td or Tdap) [facility] Start: 12-02-2026 Tetanus Diphtheria and Pertussis Vaccines (7 - Td or Tdap) Tetanus Diphtheria and Pertussis Vaccines (7 - Td or Tdap) [facility] Start: 06-28-2025 ambulatory Ambulatory Facility:[facility] Start: 06-20-2025 Serum inorganic phosphate measurement [facility] Start: 06-15-2025 End: 06-15-2025 Patient encounter procedure Encounter for breast reconstruction following mastectomy -[facility] Work Phone: Start: 06-08-2025 End: 06-08-2025 Patient encounter procedure HER2-positive carcinoma of left breast -[facility] Work Phone: Start: 06-07-2025 End: 06-07-2025 Patient encounter procedure Axillary lymphadenopathy -[facility] Work Phone: Start: 06-07-2025 Registered Recurring Registered Recurring -[facility] Start: 04-18-2025 [facility] Start: 04-09-2025 COVID-19 Vaccine ( season) COVID-19 Vaccine ( season) [facility] Start: 04-09-2025 FLU (#1) FLU (#1) [facility] Start: 04-09-2025 Influenza vaccination [facility] Start: 04-02-2025 End: 04-02-2025 Patient encounter procedure 04/02/2025 9:40 AM EDT Office Visit [facility] [address] [place] [id number] Ryan Cochran, PA-C [address] [place], [place] [id number] [facility] Start: 03-29-2025 [facility] Start: 03-20-2025 Urinalysis complete panel - Urine [facility] Start: 03-20-2025 [facility] Start: 03-20-2025 [facility] Start: 03-09-2025 Influenza vaccination Influenza Vaccine (#1) [facility] Start: 03-07-2025 Venous catheter care management [facility] Start: 02-13-2025 Anesthesia access central venous circulation ANESTH VASCULAR ACCESS [facility] Start: 02-13-2025 Insj tunneled ctr vad w/subq port age 6 yr/> INSERT TUNNELED CV CATH [facility] Start: 02-13-2025 Patient discharge [facility] Start: 02-06-2025 Positron emission tomography with computed tomography [facility] Start: 01-30-2025 End: 01-30-2025 Patient encounter procedure 01/30/2025 1:40 PM EDT Office Visit [facility] [address] [place] [id number] Ryan Cochran, PA-C [address] [place] [address] [facility] Start: 01-29-2025 Cobalamin (Vitamin B12) [Mass/volume] in Serum or Plasma [facility] Start: 01-29-2025 Comprehensive metabolic 2000 panel - Serum or Plasma [facility] Start: 01-29-2025 Ferritin [Mass/volume] in Serum or Plasma [facility] Start: 01-29-2025 Iron and Iron binding capacity panel - Serum or Plasma [facility] Start: 01-29-2025 [facility] Start: 01-23-2025 Patient referral [facility] Work Phone: Start: 01-23-2025 End: 01-23-2025 Patient encounter procedure 01/23/2025 1:30 PM EDT Office Visit [facility] [address] [place] [id number] Nikki Ballesteros MD [address] [place] [address] [facility] Start: 01-17-2025 End: 01-17-2025 Patient encounter procedure 01/17/2025 9:45 AM EDT Office Visit [facility] [address] [place] [phone] Yudy Ferrara MD [address] [place] [address] [facility] Start: 01-12-2025 End: 01-12-2025 Patient encounter procedure [facility] Start: 01-10-2025 End: 01-10-2025 Patient encounter procedure [facility] Start: 01-04-2025 End: 03-06-2026 DBT Breast - left diagnostic BI mammo left diagnostic tomosynthesis Imaging Routine Mass of upper outer quadrant of left breast Expected: 01/04/2025, Expires: 03/06/2026 [facility] Work Phone: Comment on above: Expected: 01/04/2025, Expires: Start: 01-04-2025 End: 03-06-2026 US Breast - left limited BI US breast limited left Imaging Routine Mass of upper outer quadrant of left breast Expected: 01/04/2025, Expires: 03/06/2026 [facility] Work Phone: Comment on above: Expected: 01/04/2025, Expires: Start: 11-15-2024 End: 11-15-2025 CBC W Auto Differential panel - Blood CBC and Auto Differential Lab Routine Encounter for wellness examination in adult Glucose intolerance (impaired glucose tolerance) Class 1 obesity due to excess calories without serious comorbidity with body mass index (BMI) of 30.0 to 30.9 in adult Expected: 11/15/2024 (Approximate), Expires: 11/15/2025 [facility] Service [facility] Work Phone: Comment on [...] in adult Expected: 11/15/2024 (Approximate), Expires: 11/15/2025 [facility] Work Phone: Comment on above: Expected: 11/15/2024 (Approximate), Expi res: 11/15/2025 Start: 11-15-2024 End: 11-15-2025 Hemoglobin A1c/Hemoglobin.total in Blood Hemoglobin A1C Lab Routine Encounter for wellness examination in adult Glucose intolerance (impaired glucose tolerance) Class 1 obesity due to excess calories without serious comorbidity with body mass index (BMI) of 30.0 to 30.9 in adult Expected: 11/15/2024 (Approximate), Expires: 11/15/2025 [facility] Work Phone: Comment on above: Expected: 11/15/2024 (Approximate), Expi res: 11/15/2025 Start: 11-15-2024 End: 11-15-2025 Lipid 1996 panel - Serum or Plasma Lipid Panel Lab Routine Encounter for wellness examination in adult Glucose intolerance (impaired glucose tolerance) Class 1 obesity due to excess calories without serious comorbidity with body mass index (BMI) of 30.0 to 30.9 in adult Expected: 11/15/2024 (Approximate), Expires: 11/15/2025 [facility] Work Phone: Comment on above: Expected: 11/15/2024 (Approximate), Expi res: 11/15/2025 Start: 11-15-2024 End: 11-15-2025 Magnesium [Mass/volume] in Serum or Plasma Magnesium Lab Routine Encounter for wellness examination in adult Glucose intolerance (impaired glucose tolerance) Class 1 obesity due to excess calories without serious comorbidity with body mass index (BMI) of 30.0 to 30.9 in adult Expected: 11/15/2024 (Approximate), Expires: 11/15/2025 [facility] Work Phone: Comment on above: Expected: 11/15/2024 (Approximate), Expi res: 11/15/2025 Start: 11-15-2024 End: 11-15-2025 Thyrotropin [Units/volume] in Serum or Plasma Thyroid Stimulating Hormone Lab Routine Encounter for wellness examination in adult Glucose intolerance (impaired glucose tolerance) Class 1 obesity due to excess calories without serious comorbidity with body mass index (BMI) of 30.0 to 30.9 in adult Expected: 11/15/2024 (Approximate), Expires: 11/15/2025 [facility] Work Phone: Comment on above: Expected: 11/15/2024 [...] in adult Expected: 11/15/2024 (Approximate), Expires: 11/15/2025 [facility] Work Phone: Comment on above: Expected: 11/15/2024 (Approximate), Expi res: 11/15/2025 Start: 04-09-2024 COVID-19 ( season) COVID-19 () [facility] Start: 04-09-2024 COVID-19 Vaccine ( season) COVID-19 Vaccine ( season) [facility] Start: 04-09-2024 COVID-19 Vaccine () COVID-19 Vaccine () [facility] Start: 04-09-2024 Influenza vaccination Influenza Vaccine (#1) [facility] Start: 11-21-2023 HPV (1 - 3-dose SCDM series) HPV (1 - 3-dose SCDM series) [facility] Start: 11-21-2023 HPV Vaccines (1 - 3-dose standard series) HPV Vaccines (1 - 3-dose standard series) [facility] Start: 07-04-2022 Depression screening using PHQ-9 (Patient Health Questionnaire 9) score Depression Screening (PHQ-2/9) [facility] Start: 11-02-2021 Screening for malignant neoplasm of cervix [facility] Start: 04-09-2021 Influenza vaccination [facility] Start: 04-09-2020 Influenza vaccination given Sequential Influenza Vaccine (#1) [facility] Start: 04-09-2019 Influenza vaccination given [facility] Start: 03-09-2018 Vaccination for human papillomavirus HPV VACCINES (1 of 3 - Female 3 Dose Series) [facility] Start: 2017 Microscopic observation [Identifier] in Cervix by Cyto stain Pap Smear [facility] Start: 2017 Screening for malignant neoplasm of cervix [facility] Start: 2014 Hepatitis C antibody, confirmatory test Hepatitis C Screening [facility] Start: 2014 Hepatitis C screening Hepatitis C Screening [facility] Start: 2012 COVID-19 Vaccine (1) COVID-19 Vaccine (1) [facility] Start: 2012 MenB (1 of 2 - MenB 2-Dose Series Bexsero) MenB (1 of 2 - MenB 2-Dose Series Bexsero) [facility] Start: 11-21-2011 HIV screening HIV Screening [facility] Start: 11-21-2011 Vaccination for human papillomavirus HPV VACCINES (1 - Female 3-dose series) [facility] Start: 2008 Adolescent depression screening assessment Depression Screening (PHQ9) [facility] Start: 2008 COVID-19 Vaccine (1) COVID-19 Vaccine (1) [facility] Work Phone: Start: 2008 Depression screening using PHQ-9 (Patient Health Questionnaire 9) score Depression Screening (PHQ-2/9) [facility] Start: 11-21-2007 Vaccination for human papillomavirus [facility] Start: 03-27-2002 Varicella vaccination Varicella Vaccines (2 of 2 - 2-dose childhood series) [facility] Start: 2001 COVID-19 Vaccine (1) COVID-19 Vaccine (1) [facility] Start: 2000 Varicella (2 of 2 - 2-dose childhood series) Varicella (2 of 2 - 2-dose childhood series) [facility] Start: 11-21-1999 History and physical examination, annual for health maintenance Wellness Visit [facility] [place] Start: 1996 Depression screening using PHQ-9 (Patient Health Questionnaire 9) score Depression Screening (PHQ9) [facility] Start: 1996 HIV screening HIV Screening [facility] Start: 1996 Lipid panel Lipid Panel [facility] Start: 1996 Screening for Chlamydia trachomatis Chlamydia Screening [facility] Start: 1996 Screening for malignant neoplasm of cervix PAP SMEAR [facility] Start: 1996 Yearly Adult Physical Yearly Adult Physical [facility] Alanine aminotransfe rase [Enzymatic activity/volume] in Serum or Plasma [facility] Albumin [Mass/volume ] in Serum or Plasma [facility] Alkaline phosphatase [Enzymatic activity/volume] in Serum or Plasma [facility] Anion gap in Serum o r Plasma [facility] End: 05-22-2024 Bacteria identified in Blood by Culture [facility] Work Phone: Comment on above: STAT (Lab) for 1 Occurrences starting until 05/22/2024, 1 completed End: 06-18-2025 Bacteria identified in Blood by Culture [facility] Work Phone: Comment on above: STAT (Lab) for 1 Occurrences starting until 06/18/2025 Bacteria identified in Urine by Culture Urine Culture Microbiology Routine Urinary frequency Dysuria Ordered: 03/13/2025 [facility] Work Phone: Comment on above: Ordered: 03/13/2025 Bilirubin measuremen t, urine [facility] Bilirubin, total measurement [facility] BUN/Creatinine ratio [facility] Calcium [Mass/volume ] in Serum or Plasma [facility] Carbon dioxide, tota l [Moles/volume] in Central venous blood [facility] CBC W Auto Different ial panel - Blood [facility] Comprehensive metabo lic 2000 panel - Serum or Plasma [facility] Creatinine [Mass/vol ume] in Serum or Plasma [facility] ECG 12 Lead ECG 12 Lead ECG STAT 05/22/2024 9:50 PM EDT [facility] Work Phone: End: 06-18-2025 ECG 12 Lead [facility] Work Phone: Comment on above: Once for 1 Occurrences starting 06/18/20 until 06/18/2025 End: 06-18-2025 Extra Urine Aaron Tube Extra Urine Aaron Tube Lab Timed Once for 1 Occurrences starting 06/18/2025 until 06/18/2025 [facility] Work Phone: Comment on above: Once for 1 Occurrences starting 06/18/20 until 06/18/2025 Folate [Moles/volume ] in Serum or Plasma [facility] End: 02-21-2025 Genetic Sendout: Custom Panel [facility] Work Phone: Comment on above: 1 Occurrences starting 02/21/2025 until 02/21/2025 Glucose [Mass/volume ] in Serum or Plasma [facility] Hemoglobin [Presence ] in Urine [facility] Iron [Mass/mass] in Unspecified specimen [facility] Iron saturation [Mas s Fraction] in Serum or Plasma [facility] Magnesium measurement [facility] Measurement of keton es in urine using dipstick [facility] Measurement of renal function [facility] Microscopic urinalysis [facility] [place] MR Breast - bilatera l WO and W contrast IV [facility] MR Breast - bilatera l WO and W contrast IV [facility] Nonrebreather mask oxygen Nonreb reather mask oxygen Respiratory Care Routine As directed - RT (PRN) until discontinued starting 01/16/[address] [facility] Work Phone: Comment on above: As directed - RT (PRN) until discontinue d starting 01/16/2021 Oxygen therapy [[facility] Data Set] Initiate Oxygen Therapy Protocol Respiratory Care Routine Daily until discontinued starting 01/17/[address] [facility] Work Phone: Comment on above: Daily until discontinued starting 2020 Patient referral [facility] Work Phone: pH of Urine [facility] Phase I & II - meter ed glucose Phase I & II - metered glucose Point of Care Testing Routine As Needed until discontinued starting 01/17/[address] [facility] Work Phone: Comment on above: As Needed until discontinued starting Positron emission tomography with computed tomography [facility] Potassium measurement [facility] Serum chloride measurement [facility] Serum inorganic phos phate measurement [facility] Serum inorganic phos phate measurement [facility] Sodium measurement [facility] Specific gravity of Urine [facility] Spirometry panel Incentive ramón metry Respiratory Care Routine Every 2hr while awake until discontinued starting 01/17/[address] [facility] Work Phone: Comment on above: Every 2hr while awake until discontinued starting 01/17/2021 End: 01-17-2021 SURGICAL PATHOLOGY SURGICAL PATHOLOGY Lab Routine One Time for 1 Occurrences starting 01/17/2021 until 01/17/[address] [facility] Work Phone: Comment on above: One Time for 1 Occurrences starting 01/07 until 01/17/2021 End: 01-12-2025 Surgical pathology study [facility] Work Phone: Comment on above: Once (Lab) for 1 Occurrences starting until 01/12/2025, 1 completed Total iron binding capacity measurement [facility] Total protein measurement [facility] TYPE AND SCREEN TYPE AND SCREEN Blood Bank Routine Every Third Day until discontinued starting 01/16/2021, 1 completed [facility] Work Phone: Comment on above: Every Third Day until discontinued start ing 01/16/2021, 1 completed Urea nitrogen [Mass/volume] in Serum or Plasma [facility] End: 06-18-2025 Urinalysis complete W Reflex Culture panel - Urine [facility] Service [facility] Work Phone: Comment on above: Once (Lab) for 1 Occurrences starting until 06/18/2025 Urine blood test [facility] Urine culture [facility] Urine dipstick for glucose [facility] Urine dipstick for leukocyte esterase [facility] Urine dipstick for nitrite [facility] Urine dipstick for protein [facility] Urine examination [facility] Urine microscopy: epithelial cells [facility] Urine Microscopy: wh ite cells [facility] Urine test [facility] Urobilinogen [Presen ce] in Urine [facility] Immunizations Immunization Date Immunization Notes Care Provider Fa cility 01-17-2021 diphtheria, tetanus toxoids and acellular pertussis vaccine, unspecified formulation Candice Bobby DO Work Phone: [facility] Work Phone: 01-17-2021 measles, mumps and rubella virus vaccine Candiceherminia Bahenae DO Work Phone: [facility] Work Phone: 12-02-2016 tetanus toxoid, reduced diphtheria toxoid, and acellular pertussis vaccine, adsorbed Kinjal Cleveland MD Work Phone: [facility] [place] 02-27-2002 diphtheria, tetanus toxoids and acellular pertussis vaccine, unspecified formulation Kinjal Cleveland MD Work Phone: [facility] [place] 02-27-2002 measles, mumps and rubella virus vaccine Kinjal Cleveland MD Work Phone: [facility] 02-27-2002 poliovirus vaccine, inactivated Kinjal Cleveland MD Work Phone: [facility] [place] 07-03-1998 diphtheria, tetanus toxoids and acellular pertussis vaccine, unspecified formulation Kinjal Cleveland MD Work Phone: [facility] [place] 07-03-1998 varicella virus vaccine Kinjal Cleveland MD Work Phone: [facility] 04-10-1998 haemophilus influenz ae type b conjugate and Hepatitis B vaccine Kinjal Cleveland MD Work Phone: [facility] 04-10-1998 haemophilus influenz ae type b vaccine, conjugate unspecified formulation [facility] 04-10-1998 measles, mumps and rubella virus vaccine [facility] 07-25-1997 hepatitis B vaccine, pediatric or pediatric/adolescent dosage Kinjal Cleveland MD Work Phone: [facility] [place] 07-03-1997 DTaP [facility] 06-20-1997 diphtheria, tetanus toxoids and acellular pertussis vaccine, unspecified formulation Kinjal Cleveland MD Work Phone: [facility] 06-20-1997 DTaP [facility] 06-20-1997 haemophilus influenz ae type b conjugate and Hepatitis B vaccine Kinjal Cleveland MD Work Phone: [facility] 06-20-1997 haemophilus influenz ae type b vaccine, conjugate unspecified formulation [facility] 06-20-1997 poliovirus vaccine, inactivated [facility] 06-20-1997 trivalent poliovirus vaccine, live, oral Kinjal Cleveland MD Work Phone: [facility] [place] 04-04-1997 diphtheria, tetanus toxoids and acellular pertussis vaccine, unspecified formulation Kinjal Cleveland MD Work Phone: [facility] 04-04-1997 DTaP [facility] 04-04-1997 haemophilus influenz ae type b vaccine, conjugate unspecified formulation [facility] 04-04-1997 poliovirus vaccine, inactivated [facility] 04-04-1997 trivalent poliovirus vaccine, live, oral Kinjal Cleveland MD Work Phone: [facility] 01-24-1997 diphtheria, tetanus toxoids and acellular pertussis vaccine, unspecified formulation Kinjal Cleveland MD Work Phone: [facility] 01-24-1997 DTaP Elton Bauer [facility] 01-24-1997 haemophilus influenz ae type b vaccine, conjugate unspecified formulation Elton Bauer [facility] 01-24-1997 poliovirus vaccine, inactivated Elton Lizette [facility] 01-24-1997 trivalent poliovirus vaccine, live, oral Kinjal Cleveland MD Work Phone: [facility] [place] Payers Date Payer Category Payer Self-pay 2023 [employer] [facility] ANTH TRADITIONAL [id number] 2023 Unknown [id number] 1.13.647. [id number] 2023 Unknown [id number] 2020 Medicaid UHC MANAGED [facility] MEDICAID COMMUNITY PLAN [id number] 2020-Present [id number]. [id number] 2020 Medicaid [facility] MANAGED [facility] MEDICAID COMMUNITY PLAN [id number] 2020-Present [phone] [address] [place] [address] [id number]. [id number] 2020 Medicare UHC MEDICARE [facility] DUAL COMPLETE [id number] 2020-Present [id number]. 2.7.3.628448.315 2018 Private Health Insurance [id number]. 2.7.3.928134.315 2016 Medicaid [id number] 2.16.840.1.064991.3.249. 13 1996 Unknown [id number] 2.16.840.1.242145.3.579. 2.902 1996 Unknown [id number] 2.16.840.1.202943.3.579. 2.903 1996 Unknown [id number] 2.16.840.1.094359.3.579. 2.903 1996 Unknown [id number] 2.16.840.1.560867.3.579. 2.1244 1996 Unknown [id number] 2.16.840.1.918615.3.579. 2.4 1996 Unknown [id number] 2.16.840.1.642633.3.579. 2.1244 1996 Unknown [id number] 2.16.840.1.122778.3.579. 2.479 1996 Unknown [id number] 2.16.840.1.157293.3.579. 2.479 1996 Unknown [id number] 2.16.840.1.727228.3.579. 2.479 1996 Unknown [id number] 2.16.840.1.397840.3.579. 2.1243 1996 Unknown [id number] 2.16.840.1.447143.3.579. 2.1243 1996 Unknown [id number] 2.16.840.1.828962.3.579. 2.1243 1996 Unknown [id number] 2.840.1.822474.3.579. 2.1243 1996 Unknown [id number] 2..840.1.337437.3.579. 2.1243 Unknown [id number] 2.840.1.497460.3.249. 13 Unknown [id number] 2.840.1.495189.3.579. 2.462 Unknown [id number] 2.840.1.685244.3.579. 2.462 Unknown [id number] 2.840.1.206618.3.579. 2.462 Unknown [id number] 2.840.1.582655.3.579. 2.462 Unknown [id number] 2.840.1.771819.3.579. 2.462 Unknown [id number] 2.840.1.566334.3.579. 2.462 Unknown [id number] 2.840.1.739699.3.579. 2.462 Unknown [id number] 2.840.1.138190.3.579. 2.462 Unknown [id number] 2.840.1.980371.3.579. 2.462 Unknown [id number] 2.840.1.415195.3.579. 2.462 Unknown [id number] 2.840.1.552113.3.579. 2.462 Unknown [id number] 2.840.1.716277.3.579. 2.462 Unknown [id number] 2.840.1.116235.3.579. 2.462 Unknown [id number] 2.840.1.675460.3.579. 2.462 Unknown [id number] 2.840.1.305351.3.579. 2.462 Unknown [id number] 2.16.840.1.674632.3.579. 2.462 Unknown [id number] 2.16.840.1.598529.3.579. 2.462 Unknown [id number] 2.16.840.1.198813.3.579. 2.462 Unknown [id number] 2.16.840.1.517309.3.579. 2.462 Unknown [id number] 2.16.840.1.942947.3.579. 2.462 Unknown [id number] 2.16.840.1.009001.3.579. 2.462 Unknown [id number] 2.16.840.1.392822.3.579. 2.462 Unknown [id number] 2.16.840.1.368279.3.579. 2.462 Unknown [id number] 2.16.840.1.974119.3.579. 2.462 Unknown [id number] 2.16.840.1.075137.3.579. 2.462 Unknown [id number] 2.16.840.1.704619.3.579. 2.462 Social History Date Type Detail Facility Start: 11-13-2017 End: 11-15-2024 Tobacco smoking status [facility] Never smoker [facility] [place] Start: 1995 Sex Assigned At Not on file [facility] Start: 08-23-2018 [facility] [place] Start: 10-02-2019 End: 07-21-2021 Alcohol intake Current non-drinker of alcohol (finding) [facility] Start: 10-27-2020 End: 11-15-2024 Tobacco use and exposure Never used [facility] Start: 05-13-2024 End: 01-12-2025 Exposure to SARS-CoV-2 (event) Not sure [facility] Start: 01-19-2021 End: 05-01-2021 Alcohol intake Lifetime non-drinker (finding) [employer] Work Phone: Start: 01-16-2021 End: 11-26-2021 History SDOH Alcohol Frequency 1 [facility] Work Phone: Start: 07-04-2021 History SDOH Social Connections Get Together 3 [facility] Start: 07-04-2021 History SDOH Financial 5 [facility] Start: 07-04-2021 History SDOH Transport Med 2 [facility] Start: 05-23-2024 Tobacco smoking status NHIS Tobacco smoking consumption unknown [facility] Start: 11-15-2024 End: 03-13-2025 Gender identity Not on file [facility] Work Phone: Start: 11-15-2024 End: 03-13-2025 Alcoholic beverage intake Current drinker of alcohol (finding) [facility] Work Phone: Start: 11-15-2024 End: 03-13-2025 History of Social function [facility] Work Phone: Start: 11-15-2024 Alcohol Comment rare [facility] Work Phone: Start: 1995 Sex assigned at Female [facility] Start: 01-12-2025 Gender identity Identifies as female gender (finding) [facility] Work Phone: Start: 01-12-2025 Sexual orientation Heterosexual (fin ding) [facility] Work Phone: Start: 01-13-2021 End: 07-03-2022 Sex Female (finding) [facility] Start: 07-03-2022 Sex Female [facility] NEGATED: Highlighted rowStart: NINF History of tobacco use Passive smoker [facility] Work Phone: NEGATED: Highlighted row Not [facility] Medical Equipment Procedure Code Equipment Code Equipment Origin al Text Equipment Identifier Dates Insertion, vascular access port ([id number]) Vascular port/catheter [id number] FDA Start: 02-13-2025 Goals Date Patient Goal Desired Activity /State Functional Status Date Assessment Result Facility 06-18-2025 Functional status [facility] 06-18-2025 [facility] Work Phone: 06-18-2025 [place] - suicide s everity rating scale screener - recent [C-SSRS] [facility] Work Phone: 03-13-2025 Patient Health Quest ionnaire 2 item (PHQ-2) [Reported] [facility] Work Phone: 01-30-2025 Patient Health Quest ionnaire 2 item (PHQ-2) [Reported] [facility] Work Phone: [facility] Mental Status Date Assessment Result Facility 02-13-2025 Cognitive function Voice/Name [facility] Work Phone: 02-13-2025 Cognitive function Patient Olga ibrahim Person;Place;Time [facility] Work Phone: Clinical Notes 01-19-2021 to 06-18-2025 [...] Color, Urine Light-Yellow Appearance, Urine Clear Specific [place], Urine 1.038 (*) pH, Urine 6.0 Protein, [...] Abnormality Status --------- ------ Urinalysis with Reflex C...[[id number]] Abnormal Final result Extra Urine Aaron Tube[[id number]] Please view results for these tests on the individual orders. EXTRA URINE AARON TUBE XR chest 1 view Final Result 1. No focal consolidation. MACRO: None Signed by: Astrid Zaidi 06/19/2025 12:33 AM Dictation workstation: [id number] CT abdomen pelvis w IV contrast Final Result No acute abnormality within the abdomen or pelvis. MACRO: None. Signed by: Sloan Cardenas 06/18/2025 11:46 PM Dictation workstation: [id number] ED Course & MDM ED Course as [...] use: Never Mariela Schulz DO 06/19/25 0207 [facility] Work Phone: 06-18-2025 Emergency department Note HPI [...] Color, Urine Light-Yellow Appearance, Urine Clear Specific [place], Urine 1.038 (*) pH, Urine 6.0 Protein, [...] Abnormality Status --------- ------ Urinalysis with Reflex C...[[id number]] Abnormal Final result Extra Urine Aaron Tube[[id number]] Please view results for these tests on the individual orders. EXTRA URINE AARON TUBE XR chest 1 view Final Result 1. No focal consolidation. MACRO: None Signed by: Astrid Zaidi 06/19/2025 12:33 AM Dictation workstation: [id number] CT abdomen pelvis w IV contrast Final Result No acute abnormality within the abdomen or pelvis. MACRO: None. Signed by: Sloan Cardenas 06/18/2025 11:46 PM Dictation workstation: [id number] ED Course & MDM ED Course as [...] Schulz DO 06/19/25206 documented in this encounter [facility] Work Phone: 05-30-2025 Progress note [facility] 05-09-2025 Progress note [facility] 04-18-2025 Progress note [facility] 04-18-2025 Progress note Note Date/Time April 18, 2025 9:33am [facility] [place] [address] OFFICE VISIT Date of Service: 04/18/25910 MR#: [id number] Acct: [id number] Name: SHAUNA RAINEY Rep #: [id number] : 1995 From: Ara steele MD Age/Sex: 29/F Location: [facility] Status: Signed HPI Subjective Date of [...] 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 January 25, [...] summary and response: [facility] March 07, 2025 [facility] Medical History Encounter for education Wears glasses [...] no focal motor deficits Coordination / Balance: [id number] test normal Speech: speech normal Gait (Neuro): [...] cancer of the left breast ER negative, DE negative, HER2/camila overexpressed 3+ with an abnormal [...] impression and plan discussed Ara Franklin MD [employer], [facility] Divisions of Medical Oncology & Hematology Department of Internal Medicine [place] [phone] This note was generated using a voice [...] Cosigner Signature: Date (if applicable) CC: ~ [facility] Work Phone: [phone] [facility] [address] [place] [address]. 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 January 25, [...] the left side. Treatment summary and response: [facility] March 07, 2025 [facility] Medical History Encounter for education Wears glasses [...] no focal motor deficits Coordination / Balance: ydiwwf-sd-cshz test normal Speech: speech normal Gait (Neuro): [...] cancer of the left breast ER negative, DE negative, HER2/camila overexpressed 3+ with an abnormal [...] impression and plan discussed Ara Franklin MD [employer], [facility] Divisions of Medical Oncology & Hematology Department of Internal Medicine [place] [phone] This note was generated using a voice [...] Cosigner Signature: Date (if applicable) CC: ~ [facility]08-21-2025 Progress note Author Ara Franklin [facility] Note Date/Time March 29, 2025 9: 23am [facility] [place] [id number] OFFICE VISIT Date of Service: 03/29/25 0901 MR#: [id number] Acct: [id number] Name: SHAUNA RAINEY Rep #: [id number] : 1995 From: Ara steele MD Age/Sex: 29/F Location[place] [facility] Status: Signed HPI Subjective Date of [...] 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 January 25, [...] the left side. Treatment summary and response: [facility] March 07, 2025 [facility] Medical History Encounter for education Wears glasses [...] no focal motor deficits Coordination / Balance: zefasc-vg-nzsq test normal Speech: speech normal Gait (Neuro): [...] cancer of the left breast ER negative, DE negative, HER2/camila overexpressed 3+ with an abnormal [...] impression and plan discussed Ara Franklin MD [employer], [facility] Divisions of Medical Oncology & Hematology Department of Internal Medicine [facility] [place] [phone] This note was generated using a voice [...] Cosigner Signature: Date (if applicable) CC: ~ [facility] Work Phone: [phone]) [phone] History of Present illness Narrative* Ryan Cochran [...] buspar as well if needed Preventative testing [facility] Mammo DEXA Colon Fall NEG November [...] medications for this visit. [facility] Work Phone: 1(356) 185-611407-23-2025 Evaluation note* Diagnosis Onset Date Resolution Status [...] of left breast acute June 15 1:47pm [facility] Work Phone: 1([phone]) 278-649007-16-2025 Radiology Diagnostic study note [facility] Imaging Services [address] [place] [address] Chest, Abd, Pel w/Contrast MR#: [id number] Acct: [id number] Name: SHAUNA RAINEY Rep #: [id number] : 1995 F 29 From: Tyrone Mccarthy MD PCP: YENNI Hartman Status: REG CLI Study:CT Chest, Abd, Pel w/Contrast Date of E xam: 02/21/25 Exam# [id number] Ordering Dr: Sheila Fisher NP COURT LIAISON-C PROCEDURE: CT CHEST, ABD, PEL W/CONTRAST 02/21/2025 [...] prominent on the left side. Reading Location: [place] [address] CC: ROBERT Eubanks; YENNI Hartman ~ Build Engineer: Signed [facility]07-09-2025 Nuclear medicine Diagnostic study note [facility] Imaging Services [address] [place] [address] Bone Scan Whole Body MR#: [id number] Acct: [id number] Name: SHAUNA RAINEY Rep #: [id number] : 1995 F 29 From: Faizan Pederson MD PCP: YENNI Hartman Status: REG CLI Study:Bone Scan Whole Body Date of Exam: 02/14/25 Exam# [id number] Ordering Dr: Sheila Fisher NPC PROCEDURE: BONE SCAN WHOLE BODY 02/14/2025 REASON FOR EXAM: BREAST CANCER STAGING TECHNIQUE: Delayed whole-body bone scan after radiopharmaceutical administration RADIOPHARMACEUTICAL: 27.1 mCi Technetium-99m MDP IV COMPARISON: None. FINDINGS: No evidence of osseous metastatic disease. No significant area of abnormal uptake is noted. NM/Bone Scan Whole Body IMPRESSION: No scintigraphic evidence of osseous metastatic disease. Reading Location: [address] CC: COURT LIAISON-Gurdeep Eubanks; YENNI Hartman ~ Build Engineer: Signed [facility]07-08-2025 History and physical note Author Tamiko [facility]rie [facility] Note Date/Time February 13, 2025 7:21a m [facility] Medical Records Department [address] [place] [address] History & Physical Exam 02/13/25 0719 MR#: [id number] Acct: [id number] Name: SHAUNA RAINEY Rep #:[id number] : 1995 29 From: Tamiko Mccarthy MD PCP: YENNI Hartman Status:[facility] Location: [place] [address] History and Physical Date of Admission: 02/13/25 Date of Service: 01/23/25 MR#: [id number] Acct: [id number] Name: SHAUNA RAINEY Rep #: [id number] : 1995 Provider: Dr. 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 Ultrasound did not show any abnormal or [...] cooperative, healthy appearing and no acute distress [facility] Head: normal to inspection Chest Other: Breast [...] site of unspecified female breast Genetic Counseling, [facility] C50.919 - Malignant neoplasm of unspecified site of unspecified female breast Plan Reviewed patient's mammography as well as ultrasound with the patient and her I did also personally review. Discussed with patient and her since she is HER2 positive, ER/DE negative, will refer to oncology. Likely she [...] to Dr. Pantoja. Tamiko Mccarthy M.D. Pager: [phone] [facility] [address] [place] [address], [address] [place] [address] Office: [phone] Coding Level of Care Code Off vis,new,level [...] MRI guided biopsy. Tamiko Mccarthy M.D. Pager: [phone] [facility] [address] [place] [address], [address] [place] [address] Office: [phone] 02/13/25 07<Electronically signed by Tamiko Mccarthy MD> Cosigner Signature (if applicable): cc: Dr. Tamiko Mccarthy MD; YENNI Hartman ~* Signed [facility] Work Phone: 1(298) 955-112907-08-2025 Consult note Author Nikunj Vasquez [facility] Note Date/Time February 13, 2025 7:19a m [facility] Medical Records Department [address] [place] [address] Pre-Anesthesia Evaluation 02/13/25 0713 MR#: [id number] Acct: [id number] Name: SHAUNA RAINEY Rep #:[id number] : 1995 29 From: Nikunj Vasquez MD PCP: YENNI Hartman Status:REG SDC Y Race: C Location: [facility]06- ASA Classification* ASA Classification ASA Classification: [...] poss left Anesthesia History Anesthesia History - audio visual coordinator: Anesthesia History - audio visual coordinator Hx Hospitalization Yes: 04/2024 PNEUMONIA 02/12/25 14:05 [...] take am of surgery PONV PONV - audio visual coordinator: PONV - audio visual coordinator Female Yes 02/12/25 14:05 HX of Motion [...] 02/13/25 06:48 Respiratory Assessment Respiratory Assessment - audio visual coordinator: Respiratory Tract Infection Hx - audio visual coordinator Hx Respiratory Tract Infection No 02/12/25 14:05 STOP Sleep Apnea STOP Sleep Apnea - audio visual coordinator: STOP Sleep Apnea - audio visual coordinator Hx Hypertension No 02/12/25 14:05 Hx Sleep [...] Tobacco Use History Tobacco Use History - audio visual coordinator: Tobacco Use History - audio visual coordinator Tobacco Use Smoking Status Never smoker 02/12/25 14:05 Hx Tobacco Use No 02/12/25 14:05 Years Smoking Packs Smoked per Day Smoking Cessation Date was within the last 15 years Hx Smoking Cessation Date Hx Smoking Cessation Counseling Hematologic Medial History Hematologic Hx - audio visual coordinator: 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 Hx of Blood Transfusion No 02/12/25 14:05 [...] confused, unrespo /Reproduction History /Reproductive History - audio visual coordinator: /Reproductive Hx- audio visual coordinator Hx Now No 02/12/25 14:05 Gestational Age [...] MD Cosigner Signature: Date CC: ~ Signed [facility] Work Phone: 1([phone]) 307-223207-08-2025 Radiology Diagnostic study note [facility] Imaging Services [address] [place], [place] [address] Chest 1 View (Portable) MR#: [id number] Acct: [id number] Name: SHAUNA RAINEY Rep #: [id number] : 1995 F 29 From: Faizan Pederson MD PCP: YENNI Hartman Status: REG [facility] Study:Chest 1 View (Portable) Date of Exam: 02/13/25 Exam# [id number] Ordering Dr: Tamiko Mccarthy MD PROCEDURE: CHEST [...] acute osseous change is seen. Reading Location: [address] CC: Dr. Tamiko Mccarthy MD; YENNI Hartman ~ Build Engineer: Signed [facility]07-08-2025 Consult note [facility] Medical Records Department [address] [place] [address] Anesthesia Postop Eval I 02/13/25829 MR#: [id number] Acct: [id number] Name: SHAUNA RAINEY Rep #:[id number] : 1995 29 From: Bonnie Mackenzie RNA PCP: YENNI Hartman Status:REG [facility] Y Race: C Location: [place] [address] Anesthesia: Postop Eval I Current Vital Signs [...] document: Postop Eval 1 completed: Yes 02/13/2531 TUBE PUSHER> Date _ Bonnie Ray CRNA Cosigner Signature: Date CC: ~ Signed [facility]07-08-[address] [facility] Medical Records Department [address] [place] [address] Instructions for Home/Discharge Instructions 02/13/25 0824 MR#: [id number] Acct: [id number] Name: SHAUNA RAINEY Rep #:[id number] : 1995 29 From: Tamiko Mccarthy MD PCP: YENNI Hartman Status:REG UTC Discharge Instructions Procedure Port-A-Cath Diet Discharge Diet: [...] Care Provider: Ryan Cochran Instructions Print Language: Greek Discharge Orders/Prescriptions Prescriptions: New oxycodone 5 mg [...] Mccarthy MD CC: YENNI Hartman ~ Signed [facility]07-08-2025 History and physical note [facility] Medical Records Department [address] [place] [address] History & Physical Exam 02/13/25 0719 MR#: [id number] Acct: [id number] Name: SHAUNA RAINEY Rep #:[id number] : 1995 29 From: Tamiko Mccarthy MD PCP: YENNI Hartman Status:REG [facility] Location: [address] History and Physical Date of Admission: 02/13/25 Date of Service: 01/23/25 MR#: [id number] Acct: [id number] Name: SHAUNA RAINEY Rep #: [id number] : 1995 Provider: Dr. 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 Ultrasound did not show any abnormal or [...] cooperative, healthy appearing and no acute distress [facility] Head: normal to inspection Chest Other: Breast [...] site of unspecified female breast Genetic Counseling, [facility] C50.919 - Malignant neoplasm of unspecified site of unspecified female breast Plan Reviewed patient's mammography as well as ultrasound with the patient and her I did also personally review. Discussed with patient and her since she is HER2 positive, ER/DE negative, will refer to oncology. Likely she [...] to Dr. Pantoja. Tamiko Mccarthy M.D. Pager: [phone] [facility] [address] [place] [address], [address] [place] [address] Office: [phone] Coding Level of Care Code Off vis,new,level [...] MRI guided biopsy. Tamiko Mccarthy M.D. Pager: [phone] [facility] [address] [place] [address], [facility], [address] [place] [address] Office: [phone] 02/13/25720 Cosigner Signature (if applicable): cc: Dr. Tamiko Mccarthy MD; YENNI Hartman ~* Signed [facility]07-08-2025 Consult note [facility] Medical Records Department [address] [place] [address] Pre-Anesthesia Evaluation 02/13/25712 MR#: [id number] Acct: [id number] Name: SHAUNA RAINEY Rep #:[id number] : 1995 29 From: Nikunj Vasquez MD PCP: YENNI Hartman Status:REG [facility] Y Race: C Location: [place] [address] ASA Classification* ASA Classification ASA Classification: 2 [...] poss left Anesthesia History Anesthesia History - audio visual coordinator: Anesthesia History - audio visual coordinator Hx Hospitalization Yes: 04/2024 PNEUMONIA 02/12/25 14:05 [...] take am of surgery PONV PONV - audio visual coordinator: PONV - audio visual coordinator Female Yes 02/12/25 14:05 HX of Motion [...] 02/13/25 06:48 Respiratory Assessment Respiratory Assessment - audio visual coordinator: Respiratory Tract Infection Hx - audio visual coordinator Hx Respiratory Tract Infection No 02/12/25 14:05 STOP Sleep Apnea STOP Sleep Apnea - audio visual coordinator: STOP Sleep Apnea - audio visual coordinator Hx Hypertension No 02/12/25 14:05 Hx Sleep [...] Tobacco Use History Tobacco Use History - audio visual coordinator: Tobacco Use History - audio visual coordinator Tobacco Use Smoking Status Never smoker 02/12/25 14:05 Hx Tobacco Use No 02/12/25 14:05 Years Smoking Packs Smoked per Day Smoking Cessation Date was within the last 15 years Hx Smoking Cessation Date Hx Smoking Cessation Counseling Hematologic Medial History Hematologic Hx - audio visual coordinator: 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 02/13/25718 meka MATOS> Date _ Nikujn Vasquez MD [facility] Signature: Date CC: ~ Signed [facility]07-08-2025 [facility] Medical Records Department [address] [facility] [place] [address] History Physical Exam 02/13/25718 MR#: [id number] Acct: [id number] Name: SHAUNA RAINEY Rep #: [id number] : 1995 29 From: Tamiko Mccarthy MD PCP: YENNI Hartman Status:[facility] Location: [place] [address] History and Physical Date of Admission: 02/13/25 Date of Service: 01/23/25 MR#: [id number] Acct: [id number] Name: SHAUNA RAINEY Rep #: [id number] : 1995 Provider: Dr. Tamiko Mccarthy MD Age/Sex: 29/F Location: [facility] Status: Signed Intake Vital Signs [...] showed invasive ductal carcinoma grade 2- 3, ER/DE negative, HER2 positive at in [place]. Ultrasound did not show any abnormal or [...] carcinoma of left br (more content not included)...[facility]06-27-2025 Radiology Diagnostic study note [facility] Imaging Services [address] [place] [address] Breast Limited Unilateral MR#: [id number] Acct: [id number] Name: SHAUNA RAINEY Rep #: [id number] : 1995 F 29 From: Keshia Garcia MD PCP: YENNI Hartman Status: REG CLI Study:Breast Limited Unilateral Date of Exam: 01/31/25 Exam# [id number] Ordering Dr: Tamiko Mccarthy MD PROCEDURE: BREAST [...] the biopsy-proven left breast malignancy. Reading Location: [id number] CC: Dr. Tamiko Mccarthy MD; YENNI Hartman ~ Build Engineer: Signed [facility]06-24-2025 History of Present illness Narrative* YENNI Walker-C - 01/30/2025 1:40 PM EDT Subjective Patient ID: Shauna Rainey is a 29 y.o. 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 and has followed with the surgeon and specialists in [place] a few times She is awaiting genetic [...] well if needed Preventative testing PAP - [facility] care Mammo DEXA Colon Fall NEG November [...] medications for this visit. [facility] Work Phone: 1(805) 651-468106-23-2025 Progress [facility] [place] [address] OFFICE VISIT Date of Service: 01/29/25 1515 MR#: [id number] Acct: [id number] Name: SHAUNA RAINEY Rep #: [id number] : 1995 From: Ara steele MD Age/Sex: 29/F Location[place] [facility] Status: Signed HPI Subjective Date of [...] 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 January 25, [...] BI-RADS 6: KNOWN BIOPSY-PROVEN MALIGNANCY. [facility] Medical History (Updated 01/29/25 @ 16:03 by [...] no focal motor deficits Coordination / Balance: enlynz-es-smrj test normal Speech: speech normal Gait (Neuro): [...] cancer of the left breast ER negative, DE negative, HER2/camila overexpressed 3+ with an abnormal [...] She will make anappointment to see her RECEIVING MANAGER to discuss these 2 issues further. 4. [...] impression and plan discussed Ara Franklin MD [employer], [facility] Divisions of Medical Oncology & Hematology Department of Internal Medicine [place] [address] This note was generated using a voice [...] Dr. Tamiko Mccarthy MD; YENNI Hartman ~ [facility]06-23-2025 Progress note Author Ara Franklin [facility] Note Date/Time January 29, 2025 4:15 pm [facility] Cancer [address] [address] OFFICE VISIT Date of Service: 01/29/25 1515 MR#: [id number] Acct: [id number] Name: SHAUNA RAINEY Rep #: [id number] : 1995 From: Ara steele MD Age/Sex: 29/F Location: [facility] Status: Signed HPI Subjective Date of [...] 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 January 25, [...] FINAL ASSESSMENT BI-RADS 6: KNOWN BIOPSY-PROVEN MALIGNANCY. [facility] History (Updated 01/29/25 @ 16:03 [...] no focal motor deficits Coordination / Balance: ncmqvh-jk-bnxz test normal Speech: speech normal Gait (Neuro): [...] cancer of the left breast ER negative, DE negative, HER2/camila overexpressed 3+ with an abnormal [...] She will make anappointment to see her RECEIVING MANAGER to discuss these 2 issues further. 4. [...] impression and plan discussed Ara Franklin MD [employer], [facility] Divisions of Medical Oncology & Hematology Department of Internal Medicine [place] [address] This note was generated using a voice [...] fallen in the past year?: No 01/29/25 9540 <Electronically signed by Ara hawley MD> Date _ Ara Franklin MD Cosigner Signature: Date (if applicable) CC: Dr. Tamiko Mccarthy MD; YENNI Hartman ~ [facility] Work Phone: 1(965) 935-399406-17-2025 Evaluation note* Diagnosis Onset Date Resolution Status [...] 3:08pm Anemia chronic January 29 3:08pm [facility] Work Phone: 1(388) [phone] Evaluation note* Diagnosis Onset Date Resolution Status [...] breast acute February 08, 2025 1 :55pm [facility] Work Phone: 1(830) 592-256606-17-2025 Evaluation note* Diagnosis Onset Date Resolution Status [...] 2025 3:24pm Anemia chronic February 28 3:24pm [facility] Work Phone: 1(419) 428-543006-17-2025 Evaluation note* Diagnosis Onset Date Resolution Status [...] Anemia chronic March 20, 2 025 2:51pm [facility] Work Phone: 1(754) [phone] Evaluation note* Diagnosis Onset Date Resolution Status [...] glucose tolerance acute March 29, 2025 8:18am [facility] Work Phone: 1(474) 577-536206-17-2025 Evaluation note* Diagnosis Onset Date Resolution Status [...] eft breast acute April 18, 2025 8:13am [facility] Work Phone: 1(340) 287-589106-17-2025 Evaluation note* Diagnosis Onset Date Resolution Status [...] l eft breast acute May 09 8:17am [facility] Work Phone: [phone]) [phone] Progress [facility] [address] [place], [place] [address] OFFICE VISIT Date of Service: 01/23/25 MR#: [id number] Acct: [id number] Name: SHAUNA RAINEY Rep #: [id number] : 1995 Provider: Dr. Niall Mccarthy MD Age/Sex: 29/F Location: [facility] Status: Signed Intake Vital Signs [...] biopsy showed invasive ductal carcinoma grade 2-3, ER/DE negative, HER2 positive at in [place]. Ultrasound did not show any abnormal or [...] cooperative, healthy appearing and no acute distress [facility] Head: normal to inspection Chest Other: Breast [...] and her since she is HER2 positive, ER/DE negative, will refer to oncology. Likely she [...] to Dr. Pantoja. Tamiko Mccarthy M.D. Pager: [phone] [facility] [address] [place] [address], [address] [place] [address] Office: [phone] Coding Level of Care Code Off vis,new,level 5 Diagnoses 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 C50.912; Z17.32 HER2-positive carcinoma of left breast C50.912; Z17.31 Invasive ductal carcinoma of left breast C50.912 01/23/25 1050 am MD> Date _ Tamiko Mccarthy MD Cosigner Signature: Date (if applicable) CC: Dr. Aden Winslow MD; Dr. Ara Franklin MD; Dr. Michael Pantoja MD; YENNI Paige ~ [facility]06-17-2025 Progress note Author Tamiko Mccarthy [facility] Note Date/Time January 23, 2025 10:5 0am [facility] [address] [place] [address] OFFICE VISIT Date of Service: 01/23/25 MR#: [id number] Acct: [id number] Name: SHAUNA RAINEY Rep #: [id number] : 1995 Provider: Dr. Niall Mccarthy MD Age/Sex: 29/F Location: [facility] Status: Signed Intake Vital Signs [...] biopsy showed invasive ductal carcinoma grade 2-3, ER/DE negative, HER2 positive at in [place]. Ultrasound did not show any abnormal or [...] cooperative, healthy appearing and no acute distress [facility] Head: normal to inspection Chest Other: Breast [...] site of unspecified female breast Genetic Counseling, [facility] C50.919 - Malignant neoplasm of unspecified site of unspecified female breast Plan Reviewed patient's mammography as well as ultrasound with the patient and her I did also personally review. Discussed with patient and her since she is HER2 positive, ER/DE negative, will refer to oncology. Likely she [...] to Dr. Pantoja. Tamiko Mccarthy M.D. Pager: [phone] [facility] [address] [place] [address], [facility], [address] [place] [address] Office: [phone] Coding Level of Care Code Off vis,new,level 5 Diagnoses 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 C50.912; Z17.32 HER2-positive carcinoma of left breast C50.912; Z17.31 Invasive ductal carcinoma of left breast C50.912 01/23/25 1050 <Electronically signed by Tamiko Cnanon am, MD> Date _ Tamiko Mccarthy MD Cosigner Signature: Date (if applicable) CC: Dr. Aden Winslow MD; Dr. Ara Franklin MD; Dr. Michael Pantoja MD; YENNI Paige ~ [facility] Work Phone: 1(394) 575-426806-06-2025 Nurse Note* Vik Petersen RN - 01/12/2025 11:35 AM EDT Dc instructions provided and reviewed without questions. Patient dc'd home with mother. Patient ambulates to lobby with slow and steady gait. [facility] Work Phone: [phone]) 657-474706-06-2025 Nurse Note* Vik Petersen RN - 01/12/2025 11:35 AM EDT Dc instructions provided and reviewed without questions. Patient dc'd home with mother. Patient ambulates to lobby with slow and steady gait. [facility] Work Phone: [phone]) 867-406305-29-2025 History of Present illness Narrative* Ryan Cochran PA-C - 01/04/2025 9:40 AM EDT Subjective Patient ID: Shauna Rainey is a 29 y.o. female who presents for Follow-up (C/O INDENT IN LT BREAST) HPI Breast concerns L breast indent x 1 year and thinks it is getting worse She aranza hx of mammo Last visit with RECEIVING MANAGER was within 6 mo - she didn't mention it then but states she did have the spot but the RECEIVING MANAGER did not note concern during her PE Pt youngest was born in 2020 and breast fed sometime into 2022 Pt denies unexplainable wt loss, fever, nipple discharge or fam hx of breast cancer Med check - currently not taking meds and denies changes in meds in the past year prior to this Preventative testing PAP - [facility] Mammo DEXA Colon Fall NEG November [...] medications for this visit. 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 Pt to check with insurance and get her labs done and if approp can call to start wegovy type med if she wishes but is aware she would need to be seen monthly for wt checks in the beginning Preventative testing PAP - [facility] Mammo DEXA Colon Fall NEG November [...] 3-12 mo with wellness / LABS at [facility] -= pt to call [facility] Work Phone: 1([phone]) 270-497710-17-2024 NoteS DISCHARGE SUMMARY -- [facility] Shauna Rainey Admitted: 05/23/2024 Discharge Date: 05/25/24 PCP Handoff Recommended Outpatient Testing None Results Pending At Discharge None Clinical Summary Shauna Rainey is a 28 y.o. female patient of Kinjal Cleveland MD with history of depression presented to [facility] on 05/23/2024 with shortness of breath, hypoxia and tachycardia. Patient transferred from [facility] ER. Acute hypoxic respiratory failure, resolved Community-acquired pneumonia, Rt basilar lobe Failed outpatient treatment CXR reviewed showed perihilar opacities considering superimposed infection. CT PE was negative for PE, showed patchy right basilar airspace opacity Patient was hypoxic when she presented to the [place] ER S/p 7-day of doxycycline as an [...] Physician(s) Follow Up: Kinjal Cleveland MD [address] [address] Schedule an appointment as soon as possible [...] AUTHENTICATED BY CASSANDRA DAVID, ON 05/25/2024 12:58:[address] [place] [address] 05-24-2024 NoteHMS PROGRESS NOTE Assessment and Plan Shauna Rainey is a 28 y.o. female patient of Kinjal Cleveland MD with history of depression presented to [facility] on 05/23/2024 with shortness of breath, hypoxia and tachycardia. Patient transferred from [facility] ER. Acute hypoxic respiratory failure, resolved Community-acquired pneumonia, Rt basilar lobe Failed outpatient treatment CXR reviewed showed perihilar opacities considering superimposed infection. CT PE was negative for PE, showed patchy right basilar airspace opacity Patient was hypoxic when she presented to the [place] ER S/p 7-day of doxycycline as an [...] affect AUTHENTICATED BY CASSANDRA DAVID, ON 05/24/2024 09:56:40[facility] 05-23-2024 NoteHMS HISTORY AND PHYSICAL -- [facility] Patient Name: Shauna Rainey : 1995 MR #: [id number] Admit Date: 05/23/2024 Physicians: Kinjal Cleveland MD (Family); Mariela Schulz DO (Referring) Shauna Rainey is a 28 y.o. female patient of Kinjal Cleveland MD with history of depression presented to [facility] on 05/23/2024 with shortness of breath, hypoxia and tachycardia. Patient transferred from [facility] ER. Acute hypoxic respiratory failure, resolved Community-acquired pneumonia Failed outpatient treatment CXR reviewed showed perihilar opacities considering superimposed infection. CT PE was negative for PE, showed patchy right basilar airspace opacity Patient was hypoxic when she presented to the [place] ER S/p 7-day of doxycycline as an outpatient Elevated D-dimer 9 days ago Admit to [facility] with telemetry Continue respiratory monitoring, keep [...] hospital or ED yes -- care site [facility] Quality Measures DVT Prophylaxis: lovenox [place] [...] MD with history of depression presented to [facility] on 05/23/2024 with shortness of breath, hypoxia and tachycardia. Patient transferred from [facility] ER. Patient just finished 7-day course [...] affect AUTHENTICATED BY NATALYA SOSA, ON 05/23/2024 15:10:25[facility]10-14-2024 Emergency department Note* Mariela Schulz, - [...] will require admission and be transferred to [place]. History provided by: Patient Patient History Past [...] Roberto Ortiz 05/23/2024 1:56 AM Dictation workstation: [id number] XR chest 2 views Final Result Mild increased perihilar opacities suggestive of developing interstitial edema. Superimposed infection not excluded. Clinical correlation and continued short-term follow-up is advised. MACRO: None Signed by: Neva Perdomo 05/22/2024 10:31 PM Dictation workstation: [id number] Labs Reviewed CBC WITH AUTO DIFFERENTIAL - [...] Medical Decision Making Transfer to [facility] Procedure Procedures Mariela Tam DO Lucrecia 05/23/24225 documented [facility] Work Phone: [phone]) 347-826010-14-2024 Physician Emergency department Note* Mariela Schulz DO [...] will require admission and be transferred to [place]. History provided by: Patient Patient History Past [...] Roberto Ortiz 05/23/2024 1:56 AM Dictation workstation: [id number] XR chest 2 views Final Result Mild increased perihilar opacities suggestive of developing interstitial edema. Superimposed infection not excluded. Clinical correlation and continued short-term follow-up is advised. MACRO: None Signed by: Neva Perdomo 05/22/2024 10:31 PM Dictation workstation: [id number] Labs Reviewed CBC WITH AUTO DIFFERENTIAL - [...] unspecified part of lung No data recorded [place] Coma Scale Score: 15 (05/22/242150 : Lana Tamayo RN) Medical Decision Making Transfer to [facility] Procedure Procedures Mariela Schulz DO 05/23/24225 [facility] Work Phone: 1(959) 204-915112-13-2021 History of Present illness Narrative* Era Giordano CNP - 07/21/2021 2:05 PM EST Associated Order(s): LG Jt Injection/Arthrocentesis: L glenohumeral LG Jt Injection/Arthrocentesis: L glenohumeral Performed by: Era Giordano CNP Authorized by: Era Giordano CNP CPT 82762 - Large Joint Arthrocentesis: Consent given by: [...] 2:05 PM EST [facility] [address] [facility] [address] [facility] [id number] Chief Complaint Patient presents with Left Shoulder [...] with the treatment plan. documented in this [id number] History of Present illness Narrative* Kinjal Cleveland [...] effects of the medications. 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 YES: This patient delivered between 52b2h-18m1z for the following acceptable indication(s) for delivery: [...] Information for the patient's : Vinicius More [[id number]] male Weight: 4 lb 9 oz (2.07 kg) Apgars: Information for the patient's : Vinicius More [[id number]] One Minute : 6 Five Minute : 8 Course: Uncomplicated yes Infant: Male infant Blood Type/Rh: A POS Antibody Screen: Antibody Screen Date Value Ref Range Status 01/16/2021 NEG NA Final Rubella: No results found for: RUBELLAIGG Contraception: will discuss with her [place] provider : yes VTE Prophylaxis: Not Indicated Meds: Shauna More Home Medication Instructions CHENTE:[id number] Printed on:01/19/21 1320 Medication Information acetaminophen (TYLENOL) [...] Venita Castaneda MD on 01/19/2021 at 1:20 [facility]06-13-2021 Hospital Discharge instructions* Instructions* Venita Castaneda MD - 01/19/2021 Images from the original note were not included. After Your Delivery (the Period): Your Care Instructions Thank you for allowing us to care of you at [facility]. This time can be one of [...] over the next few weeks. Bleeding may pharmacy picking tech and then decrease again around 7-10 days [...] avoid constipation you may take a mild tmlb-wfy-viyacqd stool softener (such as colace) as recommended [...] clean your hands with an alcohol-based hand loop cutter that contains at least 60% alcohol. Clean your hands often Wash your hands often with soap and water for at least 20 seconds, especially after blowing your nose, coughing, or sneezing; going to the bathroom; and before eating or preparing food. If soap and water are not readily available, use an alcohol-based hand loop cutter with at least 60% alcohol, covering [...] healthcare provider to call the local or [facility] health department. Persons who are placed [...] isolation precautions should be made on a nyzo-ym-pdrg basis, in consultation with healthcare providers and [facility] local health departments. Information on COVID-19 [...] respiratory tract signs and symptoms. Ways to [place] with Anxiety & Stress It is normal [...] an illness that was first found in [facility], in July 2019. It has since spread [...] seen in people before. This virus spreads ngqsdn-mr-zcvnqh through droplets from coughing and sneezing. It [...] water aren't available, use an alcohol-based hand loop cutter. Call 911 anytime you think you [...] of: November 08, 2019 Content Version: 07.12 [employer]. Care instructions adapted under license by your healthcare professional. If you have questions about a medical condition or this instruction, always ask your healthcare professional. [employer] disclaims any warranty or liability for your use of this information. General Recommendations for Routine Cleaning and Disinfection of Households Community members can practice routine cleaning of frequently touched surfaces (for example: tables, doorknobs, light switches, handles, desks, toilets, faucets, sinks) with household civil engineer land development and EPA-registered disinfectants that are appropriate for [...] appropriate. These supplies include tissues, paper towels, civil engineer land development and EPA-registered disinfectants (see list link at [...] be used for other purposes. Consult the space systems operations superintendent's instructions for cleaning and disinfection products used. [...] used if appropriate for the surface. Follow space systems operations superintendent's instructions for application and proper ventilation. Check [...] o Products with EPA-approved emerging viral pathogens [facility] iconexternal icon are expected to be effective against COVID-19 based on data for harder to kill viruses. Follow the space systems operations superintendent's instructions for all cleaning and disinfection products (e.g., concentration, application method and contact time, etc.). Soft (porous) surfaces such as carpeted floor, rugs, and drapes Remove visible contamination if present and clean with appropriate civil engineer land development indicated for use on these surfaces. After cleaning: Launder items as appropriate in accordance with the space systems operations superintendent's instructions. If possible, launder items using the [...] items as appropriate in accordance with the space systems operations superintendent's instructions. If possible, launder items using the warmest appropriate water setting for the items and dry items completely. Dirtylaundry from an ill person can be washed with other people's items. o Clean and disinfect clothes hampers according to guidance above for surfaces. If possible, consider placing a garbage collection supervisor that is either disposable (can be thrown away) or can be laundered. CDC has a list of EPA approved cleaning products on their website - https://www.cdc.gov/coronavirus/ 2019-ncov/community/home/cleaning-disinfection.html https://www.UsingMiles.Trovebox/Jslil-Cemnlydzvon-Icynkrko-Products-List.pdf Grocery Stores with delivery and pharmacy picking tech services: [employer]: Free pharmacy picking tech at locations Delivery is $12.95 a month Website - [employer] [place]: Mica Machine Operator $2.95 (1st order is free) Delivery is $14.95 Website - [employer] [place]: specialty manufacturing supervisor is free Delivery is $5.95 Website [employer]: specialty manufacturing supervisor is $4.95 Delivery is $9.95 Website [employer]: specialty manufacturing supervisor is $4.95 Delivery is $9.95 Website Spot[employer] Reporting Technologiesr[employer]: Can be ordered for delivery and pharmacy picking tech with [employer] Website - www.Carlotz [employer]: Free deliver for first 3 orders of $35 or more Website [employer]Overstock [facility] Will deliver from [employer], [employer], [employer], and [employer]. Annual membership is $99 Monthly membership is $14 documented in this [facility] Work Phone: 1(187) 373-550506-13-2021 Hospital course Narrative* Venita Castaneda MD - 01/19/2021 1:20 PM EDT Images from the original note were not included. 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 YES: This patient delivered between 28h7h-79b5a for the following acceptable indication(s) for delivery: [...] Information for the patient's : Vinicius More [[id number]] male Weight: 4 lb 9 oz (2.07 kg) Apgars: Information for the patient's : Vinicius More [[id number]] One Minute : 6 Five Minute : 8 Course: Uncomplicated yes : Male Blood Type/Rh: A POS Antibody Screen: Antibody Screen Date Value Ref Range Status 01/16/2021 NEG NA Final Rubella: No results found for: RUBELLAIGG Contraception: will discuss with her [place] provider : yes VTE Prophylaxis: Not Indicated Meds: Shauna More Home Medication Instructions CHENTE:[id number] Printed on:01/19/21 1320 Medication Information acetaminophen (TYLENOL) [...] 01/19/2021 at 1:20 PM documented in this [facility] Work Phone: 1(871) 884-571206-13-2021 History of Present illness Narrative* Criselda Walker [...] to perform preop count documented in this [facility] Work Phone: Consult note Author Bonnie Ray [facility] Note Date/Time February 13, 2025 8:31a m [facility] Medical Records Department [address] [place] [address] Anesthesia Postop Eval I 02/13/25 0830 MR#: [id number] Acct: [id number] Name: SHAUNA RAINEY Rep #:[id number] : 1995 29 From: Bonnie KERR PCP: YENNI Hartman Status:REG SDC Y Race: C Location: [place] [address] Anesthesia: Postop Eval I Current Vital Signs [...] CRNA Cosigner Signature: Date CC: ~ Signed [facility] Work Phone: Discharge summary Author Tamiko Mccarthy [facility] Note Date/Time February 13, 2025 8:25a m [facility] Medical Records Department [address] [place] [address] Instructions for Home/Discharge Instructions 02/13/25823 MR#: [id number] Acct: [id number] Name: SHAUNA RAINEY Rep #:[id number] : 1995 29 From: Tamiko Mccarthy MD PCP: YENNI Hartman Status:REG [facility] Discharge Instructions Procedure Port-A-Cath Diet Discharge Diet: [...] Care Provider: Ryan Cochran Instructions Print Language: Greek Discharge Orders/Prescriptions Prescriptions: New oxycodone 5 mg [...] Mccarthy MD CC: YENNI Hartman ~ Signed [facility] Work Phone: Evaluation note* Diagnosis Umbilical abnormality Congenital anomaly, unspecified Status post emergency section Other postprocedural status documented in this encounter [facility] Work Phone: Evaluation note* 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, complicating , childbirth, or the puerperium, unspecified as to episode of care Functional diarrhea [facility] Diagnosis Instability of left shoulder joint- Primary Bursitis and tendinitis of shoulder region [facility]* 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, complicating , childbirth, or the puerperium, unspecified as to episode of care [facility]* 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, complicating , childbirth, or the puerperium, unspecified as to episode of care [facility]* Diagnosis Pneumonia due to infectious organism, unspecified laterality, unspecified part of lung- Primary documented in this encounter [facility] Work Phone: Evaluation note* Diagnosis Encounter to [...] with status migrainosus documented in this encounter [facility] Work Phone: Evaluation note* Diagnosis Mass of upper outer quadrant of left breast- Primary Class 1 obesity due to excess calories without serious comorbidity with body mass index (BMI) of 30.0 to 30.9 in adult Fibrocystic change of breast, left documented in this encounter [facility] Work Phone: Evaluation note* Diagnosis Mass of upper outer quadrant of left breast documented in this encounter [facility] Work Phone: Evaluation note* Diagnosis Mass of upper outer quadrant of left breast documented in this encounter [facility] Work Phone: Evaluation note* Diagnosis Abnormal mammogram of left breast Mass of multiple sites of left breast documented in this encounter [facility] Work Phone: Evaluation note* Diagnosis Abnormal mammogram of left breast Mass of multiple sites of left breast documented in this encounter [facility] Work Phone: Evaluation note* Diagnosis Onset Date Resolution Status Admit Date HER2-positive carcinoma of l eft breast acute January 23, 2025 9:48am Invasive ductal carcinoma of left breast acute January 23, 2025 9:48am 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 deleted January 23, 2025 9:48am [facility] Work Phone: Evaluation note* Diagnosis Infiltrating ductal carcinoma of left breast- Primary Depression, major, recurrent, mild Class 1 obesity due to excess calories without serious comorbidity with body mass index (BMI) of 31.0 to 31.9 in adult documented in this encounter [facility] Work Phone: Evaluation note* Diagnosis Malignant neoplasm of female breast, unspecified estrogen receptor status, unspecified laterality, unspecified site of breast Encounter for nonprocreative genetic counseling Malignant neoplasm of left breast in female, estrogen receptor negative, unspecified site of breast [facility] Diagnosis Urinary frequency- Primary Dysuria Class 1 obesity due to excess calories without serious comorbidity with body mass index (BMI) of 30.0 to 30.9 in adult Infiltrating ductal carcinoma of left breast Depression, major, recurrent, mild documented in this encounter [facility] Work Phone: Evaluation note* Diagnosis Hypomagnesemia- Primary Disorders of magnesium metabolism Generalized abdominal pain Abdominal pain, generalized documented in this encounter [facility] Work Phone: Hospital Discharge instructionsAmbulatory Orders* Genetic Counseling, [facility] Location: None Selected * Oncology Location: None Selected * Plastic surgery Location: None Selected [facility] Work Phone: Hospital Discharge instructions* Attachments The following attachments cannot be sent through Care Everywhere. * Abdominal pain in adults Discharge instructions (Greek) [facility] Work Phone: Progress note Author Sheila Eubanks [facility] Note Date/Time May 09, 2025 10 :10am [facility] [address] [address] OFFICE VISIT Date of Service: 05/09/25 0843 MR#: [id number] Acct: [id number] Name: SHAUNA RAINEY Rep #: [id number] : 1995 From: Sheila Hester COURT LIAISON COURT LIAISON-C Age/Sex: 29/F [place] [facility] [place]: Signed HPI Subjective Date of Service [...] 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 January 25, [...] palpitations, cough, SOB,swelling of her extremities, numbness/tingling. [facility] Medical History (Updated 05/09/25 @ 10:36 by Sheila Eubanks NP, COURT LIAISON-C) Encounter for antineoplastic chemotherapy and immunotherapy Encounter [...] no focal motor deficits Coordination / Balance: qbukuu-dz-scdn test normal Speech: speech normal Gait (Neuro): [...] therapeutic drug level monitoring, Z79.899 - Other intermediate (current) drug therapy Plan 29-year-old female, premenopausal at diagnosis, with multifocal (at least 9 lesions identified on MRI of the breast) invasive ductal cancer of the left breast ER negative, DE negative, HER2/camila overexpressed 3+ with an abnormal [...] 1043 <Electronically signed by Sheila enrique NP COURT LIAISON-C> Date _ Sheila Eubanks NP COURT LIAISON-C Cosigner Signature: Date (if applicable) CC: ~ [facility] Work Phone: Progress note Author Ara Franklin [facility] Note Date/Time May 30, 2025 1 0:35am [facility] [place] [facility] [address] [place] [address] OFFICE VISIT Date of Service: 05/30/25 0909 MR#: [id number] Acct: [id number] Name: SHAUNA RAINEY Rep #: [id number] : 1995 From: Ara steele MD Age/Sex: 29/F Location: [facility] Status: Signed HPI Subjective Date of [...] 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 January 25, [...] the left side. Treatment summary and response: [facility] March 07, 2025 [facility] Medical History Encounter for antineoplastic chemotherapy and [...] no focal motor deficits Coordination / Balance: zeeess-ib-drko test normal Speech: speech normal Gait (Neuro): [...] cancer of the left breast ER negative, DE negative, HER2/camila overexpressed 3+ with an abnormal [...] impression and plan discussed Ara Franklin MD [employer], [facility] Divisions of Medical Oncology & Hematology Department of Internal Medicine [place] [facility] [place] [address] This note was generated using a voice [...] Cosigner Signature: Date (if applicable) CC: ~ [facility] Work Phone: Reason for referral (narrative)No reason for referral information availableKaiser [facility] Hospital Work Phone: Resqqk for visit Narrative* Imaging (Routine) - Authorized Specialty Diagnoses / Procedures Referred By Contronnie t Referred To Contact Radiology Diagnoses Mass of upper outer quadrant of left breast Procedures BI US breast limited left Ryan Cochran PA-C [address] [facility] [place] [address] Phone: tel: fax: Referral ID Status Reason Start Date Expiration Date Visits Requested Visits Authorized [id number] Authorized Perform Procedure 01/04/2025 01/04/2026 1 1 [facility] Work Phone: reason for visit Narrative* Imaging (Routine) - Pending Review Specialty Diagnoses / Procedures Referred By Contac t Referred To Contact Radiology Diagnoses Mass of upper outer quadrant of left breast Procedures BI mammo bilateral diagnostic tomosynthesis BI mammo left diagnostic tomosynthesis Ryan Cochran PA-C [address] [place] [id number] Phone: tel: fax: Referral ID Status Reason Start Date Expiration Date Visits Requested Visits Authorized [id number] Pending Review Perform Procedure 01/04/2025 01/04/2026 1 1 [facility] Work Phone: reason for visit Narrative* Imaging (Routine) - Pending Review Specialty Diagnoses / Procedures Referred By Contac t Referred To Contact Radiology Diagnoses Abnormal mammogram of left breast Mass of multiple sites of left breast Procedures BI US guided breast localization and biopsy left BI stereotactic guided breast left localization and biopsy Ryan Cochran PA-C [address] [place] [address] Phone: tel: fax: Referral ID Status Reason Start Date Expiration Date Visits Requested Visits Authorized [id number] Pending Review Perform Procedure 01/10/2025 01/10/2026 1 1 [facility] Work Phone: reason for visit Narrative* Imaging (Routine) - Authorized Specialty Diagnoses / Procedures Referred By Contac t Referred To Contact Radiology Diagnoses Abnormal mammogram of left breast Mass of multiple sites of left breast Procedures BI breast biopsy clip imaging Ryan Cochran PA-C [address] [place] [address] Phone: tel: fax: Referral ID Status Reason Start Date Expiration Date Visits Requested Visits Authorized [id number] Authorized Perform Procedure 01/10/2025 01/10/2026 1 1 [facility] Work Phone: Reason for visit Narrative* Referral [...] Genetic Sendout: Custom Panel Paul Huynh MD [address] [place] [address], [address] [place] [address] Phone: tel: fax: Referral ID Status Reason Start Date Expiration Date V isits Requested Visits Authorized [id number] Open Specialty Services Required 02/16/2025 02/16/2026 1 1 [facility] Instructions * Patient Instructions - Elton Bauer [...] taking a prescription pain medicine, take an [id number] medicine, such as acetaminophen (Tylenol), ibuprofen (Advil, [...] Log into your personal health record on [email or web address] and enter X558 in the Education box to learn more about Ear Infection (Otitis Media): Care Instructions. Current as of: March 06, 2016 Content Version: 11.2 9930-4165 [employer]. Care instructions adapted under license by your healthcare professional. If you have questions about a medical condition or this instruction, always ask your healthcare professional. 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 No February 12, 2025 2:05pm Advance Directive Response Recorded Date/ Time Do you have a Healthcare Power of Bd Special Education Teacher? No February 12, 2025 2:05pm Advance Directives on File No March 07, 2025 8:03am Living Will No March 07, 2025 8:03am Do you have a Healthcare Power of Bd Special Education Teacher? No March 07, 2025 8:03am Advance Directives No March 07 8:03am Advance Directive Response Recorded Date/ Time Do you have a Healthcare Power of Bd Special Education Teacher? No February 12, 2025 2:05pm [facility] Living Will No April 18, 2025 10:00am Do you have a Healthcare Power of Bd Special Education Teacher? No April 18, 2025 10:00am Advance Directives No April 10:00am Advance Directive Response Recorded Date/ Time Do you have a Healthcare Power of Bd Special Education Teacher? No February 12, 2025 2:05pm Advance Directives on File No Octob er 2024 10:15am Living Will No May 09 10:15am Do you have a Healthcare Power of Bd Special Education Teacher? No May 09, 2025 10:15am Advance Directives No May 09, 2025 10:15am Advance Directive Response Recorded Date/ Time Advance Directives on File No Octob er 2024 9:30am Living Will No June 07 9:30am Do you have a Healthcare Power of Bd Special Education Teacher? No June 07, 2025 9:30am Advance Directives No June 07, 2025 9:30am Discharge Instructions * Instructions* Dorina Macias RN - 01/04/2019 Follow up with your CLASSIFIED COPY CONTROL CLERK in the morning. May follow up with urologist. Drink 8-10 large glasses of ice water a day. Empty bladder every 2 hours. * Attachments The following attachments cannot be sent through Care Everywhere. * : Back Pain (Greek) * : Weeks 18 to 22 (Greek) * : When to Call (After 20 Weeks): General Info (Greek) documented in this encounter* Attachments The following attachments cannot be sent through Care Everywhere. * Food Poisoning (Greek) * Dehydration (Greek) * : Weeks 26 to 30 (Greek) documented in this encounter History of Present Illness * Herminio Mccullough MD - 01/04/2019 9:06 PM EDT Observation Note Patient Identification: Name: Shauna RaineyAge: 23 y.o.Sex: femaleDOB: 1995MRN: [id number] Chief Complaint: Chief Complaint Patient presents with [...] g 0 Allergies: Allergies Allergen Reactions Tree Pollen-[place] Elm Itching Tree Pollen-Red Maple Itching Immunizations: [...] 8:26 AM EST [facility] [address] [facility] [address] [facility] [id number] Chief Complaint Patient presents with Left Arm [...] for further review. Allergies Allergen Reactions Tree Pollen-[place] Elm Itching Tree Pollen-Red Maple Itching Current [...] file Gets together: Not on file Attends lutheran service: Not on file Active member of [...] Discharge Summ julissa Providers: Provider RoleProvider Name Trenton Butcher James R PrimaryRequired, No Pcp Note Recipients: Trenton Marquez MD Required, No Pcp, Discharge: Summary: Admission Date: .11-May-2019 03:59:00 Discharge Date: 13-May-2019 Attending Physician at Discharge: Trenton Marquez Admission Reason: Previous Section Final Discharge Diagnoses: Previous Section Procedures: Repeat low transverse section on May 11, 2019 Condition at Discharge: Satisfactory Disposition at Discharge: .Home Vital Signs: T PRBPSpO2 [id number]/5498% Date/Time05/13 4:0010/5 4:0010/5 4:0010/5 4:0010/5 4:00 Range(36.6C [...] Date HER2-positive carcinoma of left breast [facility] 2024 9:48am Invasive ductal carcinoma of left breast January 23, 2025 9:48am 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 J [facility] 2024 9:48am Chief Complaint Admit Date BREAST CANCER- DISCUSS SX January 23 9:48am INVASIVE DUCTAL CARCIMONA January 25 9:45am BREAST CA January 29, 2025 3:08 pm Reason for Visit Admit Date HER2-positive carcinoma of left breast J [facility] 2024 9:48am Invasive ductal carcinoma of left breast January 23, 2025 9:48am 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 J [facility] 2024 9:48am Axillary lymphadenopathy January 29, 2025 3:08pm HER2-positive carcinoma of left breast J [facility] 2024 3:08pm Anemia January 29, 2025 [...] 9:48am 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 J [facility] 2024 9:48am Axillary lymphadenopathy January 29, 2025 3:08pm HER2-positive carcinoma of left breast J [facility] 2024 3:08pm Anemia January 29, 2025 3:08 pm Encounter for breast reconstruction foll owing mastectomy February 08, 2025 1:55pm HER2-positive carcinoma of left breast J [facility] 2024 1:55pm Invasive ductal carcinoma of left [...] 3:08pm HER2-positive carcinoma of left breast J [facility] 2024 3:08pm Anemia January 29, 2025 3:08 pm Encounter for breast reconstruction foll owing mastectomy February 08, 2025 1:55pm HER2-positive carcinoma of left breast J [facility] 2024 1:55pm Invasive ductal carcinoma of left breast February 08, 2025 1:55pm Axillary lymphadenopathy February 28, 2025 3:24pm Encounter for education February 28, 2025 3:24pm HER2-positive carcinoma of left breast J [facility] 2024 3:24pm Anemia February 28, 2025 3:24 [...] Date HER2-positive carcinoma of left breast J [facility] 2024 9:48am Invasive ductal carcinoma of left breast January 23, 2025 9:48am 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 J [facility] 2024 9:48am Axillary lymphadenopathy January 29, 2025 3:08pm HER2-positive carcinoma of left breast J [facility] 2024 3:08pm Anemia January 29, 2025 3:08 pm Encounter for breast reconstruction foll owing mastectomy February 08, 2025 1:55pm HER2-positive carcinoma of left breast J [facility] 2024 1:55pm Invasive ductal carcinoma of left [...] Date HER2-positive carcinoma of left breast J [facility] 2024 9:48am Invasive ductal carcinoma of left breast January 23, 2025 9:48am 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 J [facility] 2024 9:48am Axillary lymphadenopathy January 29, 2025 3:08pm HER2-positive carcinoma of left breast J [facility] 2024 3:08pm Anemia January 29, 2025 [...] section and content) DATE CREATED AUTHOR 01/28/2018 [facility] DATE CREATED AUTHOR AUTHOR'S ORGANIZ ATION 05/24/2019 [facility] DATE CREATED AUTHOR AUTHOR'S ORGANIZ ATION 06/10/2019 [employer] DATE CREATED AUTHOR AUTHOR'S ORGANIZ ATION 06/17/2019 [facility] DATE CREATED AUTHOR AUTHOR'S ORGANIZ ATION 01/31/2021 [facility] DATE CREATED AUTHOR AUTHOR'S ORGANIZ ATION 05/24/2024 [facility] DATE CREATED AUTHOR AUTHOR'S ORGANIZ ATION 06/04/2024 [facility] DATE CREATED AUTHOR AUTHOR[facility]S ORGANIZ ATION [facility] DATE CREATED AUTHOR AUTHOR'S ORGANIZ ATION 01/31/2025 [facility] DATE CREATED AUTHOR AUTHOR'S ORGANIZ ATION 03/12/2025 [facility] DATE CREATED AUTHOR AUTHOR'S ORGANIZ ATION 03/17/2025 [facility] DATE CREATED AUTHOR AUTHOR'S ORGANIZ ATION 06/20/2025 [facility] DATE CREATED AUTHOR AUTHOR'S ORGANIZ ATION 06/21/2025 [facility] DATE CREATED AUTHOR AUTHOR'S ORGANIZ ATION 06/21/2025 [facility] Reason for Visit (unrecogniz ed section [...] has an anterior placenta. ED PROVIDER NOTE [facility] NAME: Shauna Rainey AGE: 24 y.o. : 1995 VISIT DATE: 10/27/2020 CSN: [id number] PCP: Elton Bauer MD Chief Complaint Patient presents with Emesis Chief complaint nausea vomiting History of present illness this is a 24-year-old female who is 22 weeks . States that she had a sandwich from [employer] approximately 12 hours ago subsequently developed nausea [...] file Gets together: Not on file Attends lutheran service: Not on file Active member of club or organization: Not on file Attends meetings of clubs or organizations: Not on file Relationship status: Not on file Other Topics Concern Not on file Social History Narrative Not on file Previous Medications Medication Sig [DISCONTINUED] norethindrone (MICRONOR) 0.35 mg tablet Take 1 tablet by mouth daily. Allergies Allergen Reactions Tree Pollen-[place] Elm Itching Tree Pollen-Red Maple Itching Review [...] 1. Elton Bauer MD. Specialty: Family Medicine [address] [place], [place] [id number] Contact information for after-discharge care Follow-up information [...] - Reason: Loss of IV access)2099 (Due) Kkezddz-Qitjsz-Edvjh Pertussis (BOOSTRIX) injection 0.5 mL 0.5 mL, [...] with frequent/long duration piggyback infusions, Starting on Chadna 01/16/21 at 2155, Administer at the same [...] Provider: Adri Griffin RN)1729 (Given - Provider: Adir Griffin RN)2120 (See Alternative - Provider: Tamiko [...] Care Teams (unrecognized sec tion and content) Senior Manager Asset Protection Relationship Specialty Start Date End Date Kinjal Cleveland MD [address] [place] [phone] PCP - General Family Medicine 07/04/21 Senior Manager Asset Protection Relationship Specialty Start Date End Date Kinjal Cleveland MD [address] [place] [phone] PCP - General Family Medicine 07/04/21 Senior Manager Asset Protection Relationship Specialty Start Date End Date Kinjal Cleveland MD [address] [id number] PCP - General Family Medicine 07/04/21 Senior Manager Asset Protection Relationship Specialty Start Date End Date Kinjal Cleveland MD [address] [address] PCP - General Family Medicine 07/04/21 Senior Manager Asset Protection Relationship Specialty Start Date End Date Kinjal Cleveland MD [address] [place] [phone] PCP - General Family Medicine 05/22/24 Senior Manager Asset Protection Relationship Specialty Start Date End Date Kinjal Cleveland MD [address] [address] PCP - General Family Medicine 05/22/24 Senior Manager Asset Protection Relationship Specialty Start Date End Date Kinjal Cleveland MD [address] [address] PCP - General Family Medicine 05/22/24 Senior Manager Asset Protection Relationship Specialty Start Date End Date Ryan Cochran PA-C [address] [place] [address] PCP - General Internal Medicine 01/04/25 Senior Manager Asset Protection Relationship Specialty Start Date End Date Ryan Cochran PA-C [address] [place] [address] PCP - General Internal Medicine 01/04/25 Senior Manager Asset Protection Relationship Specialty Start Date End Date Ryan Cochran PA-C [address] [place] [address] PCP - General Internal Medicine 01/04/25 Team [...] January 25, 2025 End: January 25, 2025 Senior Manager Asset Protection Relationship Specialty Start Date End Date Ryan Cochran PA-C [address] [place] [address] PCP - General Internal Medicine 01/04/25 Team [...] Status: Inactive Member Role/Relationship Status Dates Ryan Arlington PA, PA Primary Care Provider Active Start: [...] Status: Active Member Role/Relationship Status Dates Ryan Arlington PA, PA Primary Care Provider Active Start: February 08, 2025 Dr. Ara Franklin MD Attending Provider Active Start: February 08, 2025 Dr. Ara Franklin MD Referring Provider Active Start: February 08, 2025 Team Status: Active Member Role/Relationship Status Dates Ryan Arlington PA, PA Primary Care Provider Active Start: February 08, 2025 Dr. Jayjay Mccabe MD Attending Provider Active S tart: February 08, 2025 Team Status: Inactive Member Role/Relationship Status Dates Ryan Dimas PA, PA Primary Care Provider Active Start: February 08, 2025 End: February 08, 2025 Ryan Arlington PA, PA Referring Provider Active Start: February [...] Active Start: February 14, [address] LIAISON, COURT LIAISON-C Attending Provider Active Start: February 14, [address] LIAISON, COURT LIAISON-C Referring Provider Active Start: February 14, 2025 Team Status: Inactive Member Role/Relationship Status Dates Ryan HYMAN, PA Primary Care Provider Active Start: February 14, 2025 End: February 14, [address] LIAISON, COURT LIAISON-C Attending Provider Active Start: February 14, 2025 End: February 14, [address] LIAISON, COURT LIAISON-C Referring Provider Active Start: February 14, 2025 End: February 14, 2025 Senior Manager Asset Protection Relationship Specialty Start Date End Date Ryan Cochran PA-C [address] [place] [address] PCP - General Internal Medicine 02/21/25 Trenton Pitts MD [address] [place] [address] [address] [place] [address] Deck Worker Obstetrics Gynecology 01/16/21 Radha Brantley MD [address] [facility] [address] [place] [address] Perinatologist Maternal Medicine 01/16/21 Uzma Mccallum, [place] [address] Genetic Counselor Genetics 02/16/25 Team Status: Inactive Member Role/Relationship Status Dates YENNI Nunez Primary Care Provider Active Start: February 21, 2025 End: February 21, 2025 Sheila Eubanks NP, COURT LIAISON-C Attending Provider Active Start: February 21, 2025 [...] End: February 28, [address] LIAISON-C Attending Provider Active Start: February 28, 2025 End: February 28, 2025 Senior Manager Asset Protection Relationship Specialty Start Date End Date Ryan Cochran PA-C [address] [place] [address] PCP - General Internal Medicine 01/04/25 Team [...] 08, 2025 End: February 08, 2025 Ryan Arlington PA, PA Referring Provider Active Start: February 08, 2025 End: February 08, 2025 Dr. Michael Pantoja MD Attending Provider Active Start: February 08, 2025 End: February 08, 2025 Team Status: Inactive Member Role/Relationship Status Dates Ryan Arlington PA, PA Primary Care Provider Active Start: [...] 2025 End: February 14, [address] LIAISON, COURT LIAISON-C Attending Provider Active Start: February 14, 2025 End: February 14, [address] LIAISON, COURT LIAISON-C Referring Provider Active Start: February 14, 2025 End: February 14, 2025 Team Status: Inactive Member Role/Relationship Status Dates Ryan Arlington PA, PA Primary Care Provider Active Start: February 21, 2025 End: February 21, [address] LIAISON, COURT LIAISON-C Attending Provider Active Start: February 21, 2025 End: February 21, [address] LIAISON, COURT LIAISON-C Referring Provider Active Start: February 21, 2025 [...] Status: Inactive Member Role/Relationship Status Dates Ryan Arlington PA, PA Primary Care Provider Active Start: February 28, 2025 End: February 28, 2025 Ryan Arlington PA, PA Referring Provider Active Start: February 28, 2025 End: February 28, [address] LIAISON, COURT LIAISON-C Attending Provider Active Start: February 28, 2025 End: February 28, 2025 Team Status: Active Member Role/Relationship Status Dates Ryanchristopher HinesArlington PA, PA Primary Care Provider Active Start: [...] Status: Inactive Member Role/Relationship Status Dates Ryan Arlington PA, PA Primary Care Provider Active Start: [...] Status: Inactive Member Role/Relationship Status Dates Ryan Arlington PA, PA Primary Care Provider Active Start: March 29, 2025 End: March 29, 2025 Ryan Dimas PA, PA Referring Provider Active Start: March 29, 2025 End: March 29, 2025 Dr. Ara Franklin MD Attending Provider Active Start: March 29, 2025 End: March 29, 2025 Team Status: Inactive Member Role/Relationship Status Dates Ryan Arlington PA, PA Primary Care Provider Active Start: March 29, 2025 End: March 29, 2025 Ryan Dimas PA, PA Referring Provider Active Start: March 29, 2025 End: March 29, 2025 Dr. Ara Franklin MD Attending Provider Active Start: March 29, 2025 End: March 29, 2025 Team Status: Inactive Member Role/Relationship Status Dates Ryan Arlington PA, PA Primary Care Provider Active Start: April 18, 2025 End: April 18, 2025 Ryan Arlington PA, PA Referring Provider Active Start: April [...] 2025 End: February 14, [address] LIAISON, COURT LIAISON-C Attending physician Active Start: February 14, 2025 End: February 14, [address] LIAISON, COURT LIAISON-C Referring Provider Active Start: February 14, 2025 End: February 14, 2025 Team Status: Inactive Member Role/Relationship Status Dates Ryan Cochran PA, PA Primary care physician Active Start: February 21, 2025 End: February 21, [address] LIAISON, COURT LIAISON-C Attending physician Active Start: February 21, 2025 End: February 21, [address] LIAISON, COURT LIAISON-C Referring Provider Active Start: February 21, 2025 [...] 28, 2025 End: February 28, 2025 Ryan Arlington PA, PA Referring Provider Active Start: February 28, 2025 End: February 28, [address] LIAISON, COURT LIAISON-C Attending physician Active Start: February 28, 2025 End: February 28, 2025 Team Status: Inactive Member Role/Relationship Status Dates Ryan Arlington PA, PA Primary care physician Active Start: [...] 29, 2025 End: March 29, 2025 Ryan Arlington PA, PA Referring Provider Active Start: March 29, 2025 End: March 29, 2025 Dr. Ara Franklin MD Attending physician Active Start: March 29, 2025 End: March 29, 2025 Team Status: Inactive Member Role/Relationship Status Dates Ryan Dimas PA, PA Primary care physician Active Start: April 18, 2025 End: April 18, 2025 Ryan Arlington PA, PA Referring Provider Active Start: April 18, 2025 End: April 18, 2025 Dr. Ara Franklin MD Attending physician Active Start: April 18, 2025 End: April 18, 2025 Team Status: Active Member Role/Relationship Status Dates Ryan Arlington PA, PA Primary care physician Active Start: May 09, 2025 Dr. Ara Franklin MD Attending physician Active Start: May 09, 2025 Dr. Ara Franklin MD Referring Provider Active Start: May 09, 2025 Team Status: Inactive Member Role/Relationship Status Dates Ryan Dimas PA, PA Primary care physician Active Start: May 09, 2025 End: May 09, 2025 Ryan Arlington PA, PA Referring Provider Active Start: May 09, 2025 End: May 09, [address] LIAISON, COURT LIAISON-C Attending physician Active Start: May 09, 2025 End: May 09, 2025 Team Status: Inactive Member Role/Relationship Status Dates Ryan Dimas PA, PA Primary care physician Active Start: February 21, 2025 End: February 21, [address] LIAISON, COURT LIAISON-C Attending physician Active Start: February 21, 2025 End: February 21, [address] LIAISON, COURT LIAISON-C Referring Provider Active Start: February 21, 2025 [...] 2025 End: February 28, [address] LIAISON, COURT LIAISON-C Attending physician Active Start: February 28, 2025 End: February 28, 2025 Team Status: Inactive Member Role/Relationship Status Dates Ryan Arlington PA, PA Primary care physician Active Start: [...] 29, 2025 End: March 29, 2025 Ryan Arlington PA, PA Referring Provider Active Start: March 29, 2025 End: March 29, 2025 Dr. Ara Fraknlin MD Attending physician Active Start: March 29, [...] 2025 End: May 09, [address] LIAISON, COURT LIAISON-C Attending physician Active Start: May 09, 2025 End: May 09, 2025 Team Status: Inactive Member Role/Relationship Status Dates Ryan Dimas PA, PA Primary care physician Active Start: May 30, 2025 End: May 30, 2025 Ryan Arlington PA, PA Referring Provider Active Start: May 30, 2025 End: May 30, 2025 Dr. Ara Franklin MD Attending physician Active Start: May 30, 2025 End: May 30, 2025 Team Status: Inactive Member Role/Relationship Status Dates Ryan Arlington PA, PA Primary care physician Active Start: May 31, 2025 End: May 31, [address] LIAISON, COURT LIAISON-C Attending physician Active Start: May 31, 2025 End: May 31, [address] LIAISON, COURT LIAISON-C Referring Provider Active Start: May 31, 2025 [...] End: June 07, 2025 Sheila Eubanks NP, COURT LIAISON-C Attending physician Active Start: June 07, 2025 [...] June 15, 2025 End: June 15, 2025 Senior Manager Asset Protection Relationship Specialty Start Date End Date Ryan Cochran PA-C [address] [place] [address] PCP - General Internal Medicine 01/04/25 Goals [...] PRIMARY CLINICAL RECORDS. [facility] [employer] [facility]. provides no warranty or guarantee [id number] the accuracy [phone] completeness of information in this [id number]
[2025-08-04 22:49] LABS: Partial Thromboplast Time 26.5 Seconds (24.1-36.2); Prothrombin Time (Protime)PT. 12.4 SECONDS (11.7-14.9)
[2025-08-04 22:59] VITALS: BP 115/71; PULSE 99; RESP 16; TEMP 36.8; O2SAT 100
[2025-08-04 23:00] VITALS: BP 115/71; PULSE 92; RESP 16; TEMP 36.7; O2SAT 98
[2025-08-04 23:08] LABS: Anion Gap 9 (7-18); BUN 11 mg/dL (4-19); BUN/Creat Ratio 20.0 RATIO (10-20); Calcium,Total 8.9 mg/dL (7.6-11.0); Carbon Dioxide 27.2 mmol/L (20.0-29.0); Chloride 105 mmol/L (96-106); Estimated Creatinine Clearance 137.69 ml/min (50-250); Glucose 97 mg/dL (70-99); Potassium 3.3 mmol/L (3.5-5.1)
[2025-08-04] MEDS: 0.9% Normal Saline (1000mL) 1,000 ML 1000 ML IV (23:22)
[2025-08-05] VITALS (7 sets, daily range): BP systolic 96–118; BP diastolic 60–76; PULSE 88–113; RESP 16; TEMP 36.7–36.8; O2SAT 98–100
[2025-08-05 00:28] LABS: Mucous, Urine 0 SEEN /hpf (<or=2+); Squamous Epithelial Cells - UA 0 SEEN /hpf (5-10)
[2025-08-05 00:56] LABS: Glucose, Dipstick Normal (Normal); Ketone-Dipstick Negative (Negative); Leukocyte Esterase-Dipstick Negative /ul (Negative); Nitrite-Dipstick Negative (Negative); Occult Blood-Urine Negative /ul (Negative); Protein-Dipstick Negative (Negative); Specific Gravity, Urine 1.010 (1.002-1.030); Urine Bilirubin Dipstick Negative (Negative)
[2025-08-05 00:59] LABS: Color, Urine Yellow (Yellow)
[2025-08-05 01:05] LABS: Red Blood Cells-Urine 0-5 SEEN /hpf (0-5)
[2025-08-05] MEDS: 0.9% Normal Saline (1000mL) 1,000 ML 1000 ML IV (01:32)
[2025-08-05] MEDS: Polymixin B Sulf/Trimethoprim 10 ml Bottle 2 DRP RIGHT EYE (06:20)
== END 2025-08-05 06:24 | disposition home or self-care (01) ==
PROVIDERS: Emergency Provider Emergency Medicine; PCP Physician Assistant Medical; Visit Provider Emergency Medicine
DX: R42 Dizziness and giddiness (principal); H10.31 Unspecified acute conjunctivitis, right eye; Z17.31 Human epidermal growth factor receptor 2 positive status; Z85.3 Personal history of malignant neoplasm of breast
CPT/HCPCS: 71275; 80048; 81001; 83605; 85025; 85610; 85730; 87040; 87086; 96360; 96361; 99285; Q9967; A4216